=== PATIENT | female | born 1965 | race Caucasian/White ===

== ENCOUNTER 2020-01-02 17:41 | Emergency (ER) | payer OTHER, SELFPAY ==
[2020-01-02 17:43] VITALS: BP 149/95; PULSE 116; RESP 18; TEMP 36.9; O2SAT 97; BMI 18.5
--- NOTE | 2020-01-02 18:08 | US_ITS ---
STUDY: VENOUS DOPPLER ULTRASOUND - BILATERAL LOWER EXTREMITIES REASON FOR EXAM: Female, 54 years old. Bilateral SWELLING TECHNIQUE: Ultrasound evaluation of the deep vein system to include neville-scale imaging and compression was performed. Neville-scale imaging and Doppler sonographic evaluation, including duplex spectral analysis and qualitative color flow sonography, was performed. COMPARISON: None. FINDINGS: RIGHT LEG Common Femoral Vein: Normal compression, spontaneity and augmentation. Normal color Doppler. Common Femoral Vein/Greater Saphenous Junction: Normal compression. Femoral Proximal: Normal compression. Femoral Middle: Normal compression, spontaneity and augmentation. Normal color Doppler. Femoral Distal: Normal compression. Popliteal Vein: Normal compression, spontaneity and augmentation. Normal color Doppler. Posterior Tibial Vein: Normal compression. Peroneal Vein: Normal compression. LEFT LEG Common Femoral Vein: Normal compression, spontaneity and augmentation. Normal color Doppler. Common Femoral Vein/Greater Saphenous Junction: Normal compression. Femoral Proximal: Normal compression. Femoral Middle: Normal compression, spontaneity and augmentation. Normal color Doppler. Femoral Distal: Normal compression. Popliteal Vein: Normal compression, spontaneity and augmentation. Normal color Doppler. Posterior Tibial Vein: Normal compression. Peroneal Vein: Normal compression. US/Venous Duplex Imag/Anam Extrem IMPRESSION: No demonstrated deep vein thrombosis. Electronically Signed: Erica Turner MD at 19:29 EDT Tel , Service support ,
--- NOTE | 2020-01-02 19:36 | ED.VISSUMM ---
- ER Visit Summary Date of Service: 01/02/20 Chief Complaint: Possible DVT History of Present Illness: The patient is a 54 F who is here to check for DVT. She has lower extremity swelling for the past week and a history of DVTs. She is not on blood thinners. Denies any other associated symptoms. Physical Examination: Trace edema to lower extremities with calf tenderness. Otherwise unremarkable. Neurovascular intact. Test Results: Ultrasound negative bilaterally Emergency Department Course and Treatment: Patient has myalgias and mild edema. No history of heart failure, liver disease, kidney disease. No other associated symptoms, red flag features, or other emergency concerns today. She will follow-up as an outpatient. Treatment Plan: As above Disposition: Discharge Impression: Bilateral lower extremity pain This note was generated with [employer] dictation software. It may contain incorrect words, spelling, and punctuation that were not noted in review of the chart prior to signing ED Disposition - Plan for ED Patient: Referrals: Willi Sofia MD [Primary Care Provider] -
--- NOTE | 2020-01-02 19:37 | ED.DEP ---
ED Disposition - Plan for ED Patient: Instructions: ED Peripheral Edema, Bilateral Referrals: Willi Sofia MD [Primary Care Provider] -
[2020-01-02 19:44] VITALS: BP 120/94; PULSE 68; RESP 16; O2SAT 99
== END 2020-01-02 19:44 | disposition home or self-care (01) ==
LOC: ED 18:15
PROVIDERS: Emergency Provider Emergency Medicine; PCP Family Medicine
DX: M79.605 Pain in left leg (principal); M79.604 Pain in right leg; M79.10 Myalgia, unspecified site; R60.9 Edema, unspecified; Z86.718 Personal history of other venous thrombosis and embolism; Z72.0 Tobacco use
CPT/HCPCS: 93970; 99282

== ENCOUNTER → 2020-05-01 17:43 | Outpatient (CLI) | payer OTHER, SELFPAY | PROVIDERS: PCP Family Medicine; Referring Provider Nurse Practitioner Family; Visit Provider Nurse Practitioner Family | DX: Z20.828 Contact with and (suspected) exposure to other viral communicable diseases (principal); J32.9 Chronic sinusitis, unspecified; J40 Bronchitis, not specified as acute or chronic | CPT/HCPCS: 87635; G2023; U0003 ==

== ENCOUNTER 2020-06-26 07:34 | Emergency (ER) | payer OTHER, SELFPAY ==
[2020-06-26 07:34] VITALS: BP 119/70; PULSE 104; RESP 19; TEMP 36.4; O2SAT 99; BMI 18.1
--- NOTE | 2020-06-26 07:58 | EKG12_ITS ---
Test Reason : LOWER EXREMITY Blood Pressure : / mmHG Vent. Rate : 071 BPM Atrial Rate : 071 BPM P-R Int : 122 ms QRS Dur : 086 ms QT Int : 396 ms P-R-T Axes : 063 073 066 degrees QTc Int : 430 ms Normal sinus rhythm Normal ECG Confirmed by MILDRED DOWNING, EMIL ([id number]), business editor TOSHIA MENARD ([id number]) on 06/29/2020 1:10:47 PM Referred By: LEEANNE Confirmed By:EMIL LEVY MD
[2020-06-26 08:06] VITALS: RESP 16
[2020-06-26 08:07] VITALS: BP 109/80; BP 122/72; BP 126/82; PULSE 105; PULSE 66; PULSE 83
[2020-06-26] MEDS: Acetaminophen 500 MG Tablet 1000 MG PO (08:12)
--- NOTE | 2020-06-26 08:22 | RAD_ITS ---
STUDY: X-RAY - RIGHT FOOT CLINICAL: Female, 54 years old. SYNCOPE, TOP OF FOOT WAS SWOLLEN AND PAINFUL WHEN SHE WOKE TECHNIQUE: 3 view(s) of the foot. COMPARISON: None. FINDINGS: Normal talus, calcaneus, and tarsal bones. Normal visualized subtalar, talonavicular, calcaneocuboid, tarsal and tarsometatarsal articulations. Normal metatarsi. Normal metatarsophalangeal joint of the great toe. Normal tibial and fibular sesamoid bones. Normal interphalangeal joint of the great toe. Normal phalanges of the great toe. Normal second through fifth metatarsophalangeal joints. Normal interphalangeal joints and phalanges of the lesser toes. Dorsal soft tissue swelling. RAD/Foot min 3 Views IMPRESSION: Dorsal soft tissue swelling. Electronically Signed: Isidoro Romero, at 8:47 EDT , Service support ,
[2020-06-26 08:27] LABS: Absolute Lymphocyte Count 1.46 X10^3/uL (0.83-4.51); Absolute Neutrophil Count 11.2 X10^3/uL (2.0-7.7); Basophil# 0.04 X10^3/uL; Basophil% 0.3 % (0-1); Eosinophil# 0.07 X10^3/uL; Eosinophils% 0.5 % (0-5); Hematocrit 44.7 % (37-47); Hemoglobin 14.5 g/dL (12.0-15.0); Lymphocyte # 1.46 X10^3/ul (4.0); Lymphocyte % 10.9 % (19-41); Mean Corp Hgb Conc 32.4 g/dL (32-36); Mean Corpuscular Hgb 28.2 pg (27.0-32.0); Mean Corpuscular Volume 86.8 fL (81-99); Mean Platelet Vol. 10.4 fl (6.2-12.0); Monocyte# 0.65 X10^3/uL; Monocyte% 4.8 % (0-10); NRBC Flagged by Analyzer 0 % (0-5); Neutrophil # 11.16 X10^3/uL (2.7-7.7); Neutrophil % 83.1 % (47-70); Platelet Count 300 K/mm3 (150-450); RBC Distribution Width CV 14.7 % (11.6-14.6); RBC Distribution Width SD 46.8 fl (35.1-43.9); Red Blood Count 5.15 M/mm3 (4.2-5.4); White Blood Count 13.4 K/mm3 (4.4-11.0)
--- NOTE | 2020-06-26 08:40 | ED.VISSUMM ---
- ER Visit Summary Date of Service: 06/26/20 Chief Complaint: Syncope and right foot pain History of Present Illness: The patient is a [address] Ian Hall. She reports at 1:00 this morning she was awakened from sleep with cramping abdominal pain that was 8 out of 10 in severity. She reports she was nauseated and had a cold sweat. She went in the bathroom and had a small amount of diarrhea. She got up to wash her hands and felt very lightheaded. She could tell she was going to pass out. She was unable to sit down completely. States that she fell and injured her right foot. She denies any neck or back pain. She denies any chest pain, palpitations or shortness of breath that preceded this episode. Patient reports that she has right foot pain is 10 on 10 severity. Says sharp, aching pain is increased with walking and decreased with rest. She is not taken anything for pain. She denies any other injuries. She now reports that her abdominal pain is a crampy pain that is 2 out of 10 in severity. She has had multiple episodes of this in the past. Physical Examination: Vitals: Stable. Afebrile. Neck: No vertebral tenderness. Full ROM without difficulty. Cleared by NEXUS criteria. Back: No vertebral tenderness. General: A&O x 3. NAD. Cardiovascular exam: Regular rate and rhythm, no murmur, rub or gallop. Respiratory exam: Chest nontender. No crepitus. Clear to auscultation bilaterally. No wheezes or stridor. Abdominal exam: Soft, nontender, nondistended, normal bowel sounds. No pain in RUQ or LUQ specifically. No peritoneal signs. Extremity: Moderate tenderness palpation is diffuse over the dorsum of her foot. There is no point tenderness. There is no soft tissue swelling or contusion. She is a 2+ dorsalis pedis pulse. Test Results: EKG is sinus at 71 with no acute changes. Normal intervals. No evidence of hokum or Brugada syndrome. CBC shows a white count of 13.47 neutrophils 83 lymphocytes of 11. Chem-7 shows a chloride of 109 glucose 127. Troponin is negative. Right foot x-ray shows a nondisplaced fracture of the base of the third metatarsal. Emergency Department Course and Treatment: Patient refused an IV. She was given Tylenol p.o. and is resting more comfortably. Patient refused crutches stating that she has been at home. She was placed in a walking boot. Treatment Plan: Patient will be discharged with weightbearing as tolerated. She is given a prescription for [place]. Instructed to follow-up with Dr. Busby in 3 to 5 days for another exam. Return to the emergency department for any worsening symptoms. Disposition: To home in improved and stable condition. Impression: 1. Vasovagal syncope. 2. Proximal right third metatarsal fracture. This note was generated with [employer] dictation software. It may contain incorrect words, spelling, and punctuation that were not noted in review of the chart prior to signing ED Disposition - Plan for ED Patient: Instructions: ED FOOT FRACTURE, ED VAGAL SYNCOPE Prescriptions: Hydrocodone Bitart/Apap 5-325 [[place] 5MG-325MG] 1 tablet PO Q4H PRN PRN 2 Days #10 tablet PRN Reason: Pain Referrals: Willi Sofia MD [Primary Care Provider] - 3-5 Days if not improving Stefania Flower DPM [STAFF PHYSICIAN] - 3-5 Days
[2020-06-26 08:43] LABS: Anion Gap 3 (5-15); BUN 16 mg/dL (7-18); BUN/Creat Ratio 15.8 RATIO (10-20); Calcium,Total 9.2 mg/dL (8.5-10.1); Chloride 109 mmol/L (98-107); Creatinine, Serum 1.01 mg/dL (0.55-1.02); EST Glomerular Filtration Rate 61 mL/min (>60); Est Glom Filt Rate - Afr Amer 73 mL/min (>60); Estimated Creatinine Clearance 54.26 ml/min; Glucose 127 mg/dL (74-106); Sodium Level 138 mmol/L (136-145)
[2020-06-26 09:29] VITALS: BP 110/64; PULSE 75; RESP 16; O2SAT 100
--- NOTE | 2020-06-26 09:32 | ED.RN ---
REVIEWED D/C INSTRUCTIONS, FOLLOW UP CARE, PRESCRIPTION, AND S/S THAT WOULD WARRANT A RETURN TO THE ED WITH PT. PT VERBALIZED AN UNDERSTANDING AND DENIES FURTHER QUESTIONS FOR THIS RN. PT SKIN P/W/D, RESP EVEN AND UNLABORED, PT A&O X 3, NO DISTRESS NOTED. PT AMBULATED OUT OF ED, GAIT STEADY.
== END 2020-06-26 09:33 | disposition home or self-care (01) ==
LOC: ED 08:36
PROVIDERS: Emergency Provider Emergency Medicine; PCP Family Medicine
DX: R55 Syncope and collapse (principal); S92.331A Displaced fracture of third metatarsal bone, right foot, initial encounter for closed fracture; W18.30XA Fall on same level, unspecified, initial encounter; Y93.9 Activity, unspecified; Y92.002 Bathroom of unspecified non-institutional (private) residence as the place of occurrence of the external cause; Y99.9 Unspecified external cause status
CPT/HCPCS: 73630; 80048; 84484; 85025; 93005; 99285

== ENCOUNTER → 2020-06-29 13:08 | Outpatient (CLI) | payer OTHER, SELFPAY ==
[2020-06-26 07:34] VITALS: BMI 18.1
[2020-06-29 15:06] LABS: Vitamin D,25 Hydroxy 49.6 ng/mL
== END ==
PROVIDERS: PCP Family Medicine; Referring Provider Podiatrist; Visit Provider Podiatrist
DX: E55.9 Vitamin D deficiency, unspecified (principal)
CPT/HCPCS: 36415; 82306

== ENCOUNTER 2021-09-13 12:13 | Inpatient (IN) | payer OTHER, SELFPAY ==
[2021-09-13] VITALS (21 sets, daily range): BP systolic 100–147; BP diastolic 63–91; PULSE 58–77; RESP 12–18; TEMP 36.5–36.8; O2SAT 97–100; BMI 19.5
--- NOTE | 2021-09-13 12:20 | RAD_ITS ---
STUDY: X-RAY CHEST REASON FOR EXAM: Female, 56 years old. Chest pain TECHNIQUE: Single AP portable view of the chest. COMPARISON: None. FINDINGS: EKG electrodes are seen. There is hyperinflation of the lungs consistent with chronic obstructive lung disease (COPD). There is no demonstrated pleural abnormality. Normal size heart. Normal mediastinum and hong. Normal visualized pulmonary arteries. There is atherosclerotic calcification of the aortic arch with tortuosity. Normal visualized thoracic spine. Normal visualized ribs, clavicles, and shoulders. There is no demonstrated abnormality of the visualized soft tissue structures of the upper abdomen. RAD/Chest 1 View (Portable) IMPRESSION: Hyperinflation. The lungs are clear. Electronically Signed: Isidoro Romero MD at 13:11 EST , Service support ,
--- NOTE | 2021-09-13 12:20 | EKG12_ITS ---
Test Reason : CP Blood Pressure : / mmHG Vent. Rate : 065 BPM Atrial Rate : 065 BPM P-R Int : 130 ms QRS Dur : 086 ms QT Int : 400 ms P-R-T Axes : 078 077 083 degrees QTc Int : 416 ms AGE AND GENDER SPECIFIC ECG ANALYSIS Normal sinus rhythm ST elevation consider inferior injury or acute infarct ACUTE NC / STEMI Abnormal ECG Confirmed by NETO DOWNING, KB ([id number]), editor publications LADY BELTRE ([id number]) on 09/14/2021 7:53:19 AM Referred By: Lulú Estrada Confirmed By:KB DUQUE MD
--- NOTE | 2021-09-13 12:43 | CM.ED ---
SOCIAL WORK STEMI Alert Call to patient's son, Don [phone] per request of patient. Son called and updated on patient's status. Son reports will be en route to hospital. Sandy Spear MSW, SHIPPING LEAD
[2021-09-13] MEDS: TICAGRELOR 90 MG TABLET 180 MG PO (12:49)
[2021-09-13] MEDS: Heparin Injection (Vial) 5,000 UNIT/ML VIAL 3400 UNIT IV (12:49)
--- NOTE | 2021-09-13 12:50 | ED.VIS.CHEST ---
HPI History of Present Illness Chief Complaint: Chest Pain Informant: patient Onset/Context/Timing Onset: Yesterday Activity at onset: gradual Timing: Intermittent (Constant for the past 2 hours) Quality: Positive for Burning Location: Left Chest Worsened By: Nothing Relieved By: Nothing Associated Symptoms: Positive for Nausea; Negative for Vomiting, Diaphoresis, Dyspnea, Cough, Fever, Lightheadedness and Acid Reflux Narrative Narrative: Patient presents with chest pain that has been intermittent since yesterday but has been constant for the past 2 hours. Patient states it is over the left chest. Patient describes it as burning. Patient states that it currently is a 9 on a scale of 0-10. Patient states nothing makes it worse and nothing makes it better. Patient admits to some nausea but denies any vomiting. Patient denies any shortness of breath or diaphoresis. Patient does admit to a cough last week and recently tested positive for COVID-19 on 09/04/2021. CVD Risk Factors: Negative for Hypertension, Diabetes, Hypercholesterolemia, Family History 1' </=55 and Smoking PE Risk Factors: Positive for Recent Travel/Surgery and Prior DVT or PE; Negative for Recent Immobilization, Cancer and OCP + Smoking + >/=35 PFSH PFSH Medical History Hx of blood clots Allergy/AdvReac Type Severity Reaction Status Date / Time sulfamethoxazole Allergy Hives Verified 09/13/21 12:17 [From Bactrim] trimethoprim [From Bactrim] Allergy Hives Verified 09/13/21 12:17 Surgical History History of elbow surgery History of tubal ligation Social History Smoking Status: Current every day smoker tobacco type: cigarettes alcohol intake: never ROS ROS ED Constitutional Constitutional ED: Denies chills or fever(s) Eyes Eyes: Denies blurry vision or change in vision ENT ENT ED: Denies rhinorrhea or sore throat Cardiovascular Cardiovascular: Reports chest pain; Denies palpitations Respiratory/Chest Respiratory/Chest: Denies cough or dyspnea Gastrointestinal Gastrointestinal: Reports nausea; Denies abdominal pain or vomiting Genitourinary Genitourinary ED: Denies dysuria or hematuria Musculoskeletal Musculoskeletal: Denies back pain or neck pain Integumentary Denies abscess or rash Neurologic Neurologic: Denies headache(s) or weakness Allergic/Immunologic Allergic/Immunologic ED: Denies mouth swelling or urticaria EXAM Physical Exam Const Vital Signs: 09/13/21 12:14 09/13/21 12:41 09/13/21 12:47 Temperature 97.7 F L Temperature Source Oral Pulse Rate 75 Respiratory Rate 16 17 Respiratory Effort Respiratory Pattern Blood Pressure 114/81 H Blood Pressure Mean 92 Pulse Ox 99 100 Oxygen Delivery Method Room Air Nasal Cannula Oxygen Flow Rate (L/min) 2 09/13/21 12:50 09/13/21 12:55 Temperature Temperature Source Pulse Rate 72 Respiratory Rate 13 Respiratory Effort Normal Respiratory Pattern Normal Blood Pressure 137/81 H Blood Pressure Mean 99 Pulse Ox 100 Oxygen Delivery Method Nasal Cannula Oxygen Flow Rate (L/min) 100 Positive well nourished and well developed General Appearance ED: well developed HEENT normocephalic and atraumatic Eyes PERRL and EOMs intact bilaterally Neck supple and no JVD Chest Wall palpation of chest normal Resp normal respiratory effort and clear to auscultation bilaterally Effort and Inspection: Negative for respiratory distress Cardio regular rate, regular rhythm and no murmurs GI normal to inspection, nondistended, normoactive bowel sounds, soft to palpation, non-tender and non-distended Extremity normal to inspection General Extremety ED: Negative for edema or tenderness General Extremity: Negative for edema Neuro oriented x3, CN's II-XII intact bilaterally and no sensory deficits noted Sensorium / Orientation: awake and alert Motor Exam: strength 5/5 throughout Psych mental status grossly normal Heart Score History: Moderately Suspicious ECG: Significant ST-Depression Age: >45 - <65 years Risk Factors: No Risk Factors Troponin: >/=3 x Normal Limit Score: 6 MDM MDM MDM Narrative Medical decision making narrative: EKG was obtained. On my interpretation, shows a sinus rhythm with a rate of 65. There is ST elevation in leads II, III, and aVF. There are reciprocal changes in aVL, V1, and V2. STEMI alert was called. Patient was given a dose of Brilinta and a dose of IV heparin. Case was discussed with Dr. Estrada. He will be down to evaluate the patient. He will take the [facility] to the [facility]. Patient was advised of her findings. Case was discussed with the hospitalist. Patient will be admitted to the hospital after the [facility]. Patient understands and is agreeable with the plan. All questions were answered. Lab Data Attestation: I reviewed the patient's lab results. Labs: Laboratory Results - last 24 hr 09/13/21 09/13/21 12:32 12:32 WBC 8.7 RBC 5.39 Hgb 15.2 H Hct 44.8 MCV 83.1 MCH 28.2 MCHC 33.9 RDW Std Deviation 44.3 H RDW Coeff of Nicholas 14.6 Plt Count 353 MPV 10.4 Immature Gran % (Auto) 0.200 Neut % (Auto) 61.2 Lymph % (Auto) 31.8 [place] % (Auto) 5.3 Eos % (Auto) 1.0 Baso % (Auto) 0.5 Absolute Neuts (auto) 5.3 Absolute Lymphs (auto) 2.78 Nucleated RBC % 0 Sodium 138 Potassium 3.7 Chloride 104 Carbon Dioxide 26.0 Anion Gap 8 BUN 19 H Creatinine 1.08 H Estim Creat Clear Calc 52.06 Est GFR (MDRD) Af Amer 68 Est GFR (MDRD) Non-Af 56 L BUN/Creatinine Ratio 17.6 Glucose 124 H Calcium 9.4 Troponin I High Sens 350 H* Radiography Chest X-Ray - ED: 1 View, Read by ED Physician, Read by Radiologist and Normal Diagnostic Testing: Clinical Impression(s) from Imaging Studies Chest X-Ray 09/13/21 12:20 IMPRESSION: Hyperinflation. The lungs are clear. Electronically Signed: Isidoro Romero MD at 13:11 EST , Service support , EKG Initial EKG: Attestation: I personally reviewed and interpreted this EKG as follows: Interpretation: Sinus Rhythm and S-T Elevation (Leads II, III, and aVF) Treatment and Re-Evaluation Vital Sign Attestation:: Vital signs are reviewed prior to admission. They are stable. Critical Care Time Critical Care Time: Yes Critical care time (excluding procedures): 30-74 minutes (31), Including time spent:, Discussing w/Patient &/or Family/Photographic Technician, Discussing w/Consultants, Arranging Admission or Transfer and Performing Direct Patient Care at Bedside Discharge Plan Dx/Rx/DC Orders Clinical Impression: Acute ST elevation myocardial infarction (STEMI) Disposition Disposition: Acute Care Hospital [facility] Discharge Date/Time: 09/13/21 13:00
[2021-09-13 13:02] LABS: Absolute Lymphocyte Count 2.78 X10^3/uL (0.83-4.51); Absolute Neutrophil Count 5.3 X10^3/uL (2.0-7.7); Basophil# 0.04 X10^3/uL; Basophil% 0.5 % (0-1); Eosinophil# 0.09 X10^3/uL; Hematocrit 44.8 % (37-47); Hemoglobin 15.2 g/dL (12.0-15.0); Lymphocyte # 2.78 X10^3/ul (0.83-4.51); Lymphocyte % 31.8 % (19-41); Mean Corp Hgb Conc 33.9 g/dL (32-36); Mean Corpuscular Hgb 28.2 pg (27.0-32.0); Mean Corpuscular Volume 83.1 fL (81-99); Mean Platelet Vol. 10.4 fl (6.2-12.0); Monocyte# 0.46 X10^3/uL; Monocyte% 5.3 % (0-10); NRBC Flagged by Analyzer 0 % (0-5); Neutrophil # 5.34 X10^3/uL (2.7-7.7); Neutrophil % 61.2 % (47-70); Platelet Count 353 K/mm3 (150-450); RBC Distribution Width CV 14.6 % (11.6-14.6); RBC Distribution Width SD 44.3 fl (35.1-43.9); Red Blood Count 5.39 M/mm3 (4.2-5.4); White Blood Count 8.7 K/mm3 (4.4-11.0)
--- NOTE | 2021-09-13 13:05 | PCM.HP.STD ---
HPI - General General Date of Admission: 09/13/21 Date of Service: 09/13/21 Chief Complaint: Chest pain, burning sensation. HPI Narrative The patient is a 56 y/o F w/ PMHx: Hx VTE, recent + diagnosis COVID on 09/04/21 who presents to the [facility] ED on 09/13/21 with history of onset chest burning sensation starting day prior primarily over the left chest which had been intermittent initially however became more constant approximately 2 3 hours prior to ED presentation, rated severe, not it of 10 in severity with some associated nausea but no emesis and no marked dyspnea or diaphoresis associated. Patient started having Covid type symptoms on 09/02/2021 with primarily cough and significant frontal headache but denied any fevers, chills, myalgias, arthralgias, nausea, emesis, abdominal discomfort, diarrhea, alteration in sense of taste or smell and has been significantly improving. She was formally tested and was positive on 09/04/2021. Patient with recent prolonged travel of note. Patient of note was not vaccinated against COVID-19. Work-up in the ED included T 97.7, heart rate 75, BP 114/81, respiratory rate 16, 99% on room air, CBC with WBC 8.7, hemoglobin 15.2, platelet 353 without marked shift, BMP pending upon evaluation of patient request, troponin high-sensitivity initial pending upon evaluation request, chest x-ray no acute cardiopulmonary findings, EKG with sinus rhythm with concern for ST elevation in leads II, III and aVF with reciprocal changes in aVL, V1 and V2 with a STEMI alert called. Patient was administered Brilinta and heparin loading with case discussed with cardiology. Patient transitioned per cardiology discretion to the cardiac catheterization lab. [facility] Medical History Hx of blood clots Tobacco use Home Medications cholecalciferol (vitamin D3) [Vitamin D3] 100 mcg PO DAILY 09/13/21 [History Last Taken 09/12/21] Allergy/AdvReac Type Severity Reaction Status Date / Time sulfamethoxazole Allergy Hives Verified 09/13/21 12:17 [From Bactrim] trimethoprim [From Bactrim] Allergy Hives Verified 09/13/21 12:17 Family History no significant family his no significant family history (Denies any marked maternal or paternal family history including HD, DM, CA.) Surgical History History of elbow surgery History of tubal ligation Social History (Updated 09/13/21 @ 13:[address] Onelia Dee MD) household members: none Smoking Status: Current every day smoker tobacco type: cigarettes Smokeless tobacco user: other alcohol intake: never substance use type: does not use ROS ROS Narrative Admission Review of Systems: CONSTITUTIONAL: No weight loss, fever, chills, + weakness or fatigue. HEENT: + Headache. Eyes: No visual loss, blurred vision, double vision or yellow sclerae. Ears, Nose, Throat: No hearing loss, sneezing. SKIN: No rash or itching, lesions, wounds. CARDIOVASCULAR: + chest pain, chest pressure or chest discomfort, No palpitations, edema, orthopnea, syncopal events. RESPIRATORY: + Cough. No shortness of breath, marked sputum, wheezing, hemoptysis. GASTROINTESTINAL: No anorexia, nausea, vomiting, diarrhea, abdominal pain, melena, BRBPR. GENITOURINARY: No dysuria, frequency, urgency or retention. NEUROLOGICAL: + Headache, No dizziness, syncope, paralysis, ataxia, numbness or tingling in the extremities, focal weakness, change in bowel or bladder control, seizure. MUSCULOSKELETAL: No muscle, back pain, joint pain or stiffness. HEMATOLOGIC: No anemia, bleeding or bruising. LYMPHATICS: No enlarged nodes. No history of splenectomy. PSYCHIATRIC: No history of depression or anxiety. ENDOCRINOLOGIC: No reports of sweating, cold or heat intolerance. No polyuria or polydipsia. ALLERGIES: No history of asthma, hives, eczema or rhinitis. Vital Signs Vital Signs Vital Signs: 09/13/21 12:14 09/13/21 12:41 09/13/21 12:47 Temperature 97.7 F L Temperature Source Oral Pulse Rate 75 Respiratory Rate 16 17 Respiratory Effort Respiratory Pattern Blood Pressure 114/81 H Blood Pressure Mean 92 Pulse Ox 99 100 Oxygen Delivery Method Room Air Nasal Cannula Oxygen Flow Rate (L/min) 2 09/13/21 12:50 09/13/21 12:55 Temperature Temperature Source Pulse Rate 72 Respiratory Rate 13 Respiratory Effort Normal Respiratory Pattern Normal Blood Pressure 137/81 H Blood Pressure Mean 99 Pulse Ox 100 Oxygen Delivery Method Nasal Cannula Oxygen Flow Rate (L/min) 100 Weight Weight: 125 lb Body Mass Index (BMI) 19.5 Physical Exam Narrative Physical Examination: General: Awake, alert, oriented x3, laying in the cardiac catheterization bed, notes ongoing chest discomfort, fatigued appearing. Skin: Normal color, normal turgor, no icterus, no cyanosis. HEENT: AT/NC, EOMI, PERRLA, mildly dry MM, no carotid bruits or JVD noted. Lungs: Mild diminished, greater bases, appropriate effort, no rales, ronchi or wheezing. Heart: Regular rate and rhythm; no gallop, rub audible. Abdomen: Soft, NTTP, ND, mildly hyperactive BS, no HSM. Extremities: No cyanosis, clubbing, or edema. Neurological: Patient awake, alert, oriented as noted, cognitive function intact; pupils equally reactive to light and accommodation, cranial nerves II-XII grossly normal, moving all 4 extremities however limitations given planned cardiac catheterization, strength preserved however deferred aggressive testing given planned catheterization. Psychiatric: Affect appears uncomfortable, no acute evidence of depressive or anxiety feelings. Results Lab / Micro Data Result Diagrams: 09/13/21 12:32 09/13/21 12:32 Labs: Laboratory Results - last 24 hr 09/13/21 12:32: WBC 8.7, RBC 5.39, Hgb 15.2 H, Hct 44.8, MCV 83.1, MCH 28.2, MCHC 33.9, RDW Std Deviation 44.3 H, RDW Coeff of Nicholas 14.6, Plt Count 353, MPV 10.4, Immature Gran % (Auto) 0.200, Neut % (Auto) 61.2, Lymph % (Auto) 31.8, Bath % (Auto) 5.3, Eos % (Auto) 1.0, Baso % (Auto) 0.5, Absolute Neuts (auto) 5.3, Absolute Lymphs (auto) 2.78, Nucleated RBC % 0 Assessment & Plan Assessment/Plan (1) Acute ST elevation myocardial infarction (STEMI): QUALIFIERS: Involved coronary artery: unspecified coronary artery Qualified Code(s): I21.3 - ST elevation (STEMI) myocardial infarction of unspecified site (2) COVID-19: PLAN: The patient is a 56 y/o F w/ PMHx: Hx VTE, recent + diagnosis COVID on 09/04/21 who presents to the [facility] ED on 09/13/21 with history of onset chest burning sensation starting day prior primarily over the left chest which had been intermittent initially however became more constant approximately 2 3 hours prior to ED presentation, rated severe, not it of 10 in severity with some associated nausea but no emesis and no marked dyspnea or diaphoresis associated. #1. Chest Pain w/ Acute STEMI: ED EKG w/ concern for ST elevation in leads II, III and aVF with reciprocal changes in aVL, V1 and V2 with a STEMI alert called Trop elevated, 350. Patient transitioned to the cardiac catheterization lab from ED and will await discussion regarding intervention following procedure. Expect admission to the ICU, will maintain on a monitored bed, continue serial cardiac enzymes and EKGs, obtain magnesium level upon admission. Continue medical management w/ asa, brillinta, add high dose statin, defer BB/ACEI regimen to cardiology discretion. ASA, NG, morphine. #2. Acute Viral Syndrome, COVID-19: Currently, not hypoxic and symptoms improved, patient timeline appropriate for no precautions, PRN albuterol, HOB, IS parameters, patient as noted being evaluated for #1, if no obvious findings will need to evaluate for potentially VTE. Will obtain D-dimer (even if elevated given contrast with catheterization will need to be deferred and would obtain BL LE duplex), procalcitonin, CRP, CPK, Ferritin, LDH and BNP for baseline and continued to cycle cardiac enzymes given #1, continue supportive care. #3. History of remote VTE: Patient with history remotely, per discussion considered provoked, given recent prolonged travel potentially associated with current presentation. #4. Tobacco Abuse: Encouraged cessation, inpatient consultation per RT, NR if desired. #5. DVT prophylaxis: SCDs, recent heparin bolus, transition in a.m. if appropriate Lovenox. Charges/Coding Visit Charges Inpatient E&M: 47109 Init Hosp L3
--- NOTE | 2021-09-13 13:12 | EKG12_ITS ---
Test Reason : Blood Pressure : / mmHG Vent. Rate : 064 BPM Atrial Rate : 064 BPM P-R Int : 132 ms QRS Dur : 086 ms QT Int : 418 ms P-R-T Axes : 078 078 081 degrees QTc Int : 431 ms AGE AND GENDER SPECIFIC ECG ANALYSIS Normal sinus rhythm ST elevation consider inferior injury or acute infarct ACUTE ME / STEMI Abnormal ECG Confirmed by NETO DOWNING, BK ([id number]), web content editor LADY BELTRE ([id number]) on 09/16/2021 8:28:43 AM Referred By: Lulú Estrada Confirmed By:BK DUQUE MD
[2021-09-13 13:14] LABS: Anion Gap 8 (5-15); BUN 19 mg/dL (7-18); BUN/Creat Ratio 17.6 RATIO (10-20); Calcium,Total 9.4 mg/dL (8.5-10.1); Chloride 104 mmol/L (98-107); Creatinine, Serum 1.08 mg/dL (0.55-1.02); EST Glomerular Filtration Rate 56 mL/min (>60); Est Glom Filt Rate - Afr Amer 68 mL/min (>60); Estimated Creatinine Clearance 52.06 ml/min; Glucose 124 mg/dL (74-106); Potassium 3.7 mmol/L (3.5-5.1); Sodium Level 138 mmol/L (136-145); Troponin-I HS 350 pg/mL (3.0-54.0)
--- NOTE | 2021-09-13 14:01 | EKG12_ITS ---
Test Reason : AM EKG Blood Pressure : / mmHG Vent. Rate : 063 BPM Atrial Rate : 063 BPM P-R Int : 118 ms QRS Dur : 082 ms QT Int : 438 ms P-R-T Axes : 057 061 053 degrees QTc Int : 448 ms Normal sinus rhythm Normal ECG When compared with ECG of 13-SEP-2021 14:21, MANUAL COMPARISON REQUIRED, DATA IS UNCONFIRMED Confirmed by MILDRED DOWNING, EMIL ([id number]), electronic news gathering editor LADY BELTRE ([id number]) on 09/16/2021 8:30:30 AM Referred By: Lulú Estrada Confirmed By:EMIL LEVY MD
--- NOTE | 2021-09-13 14:19 | CON.PCM.CA_ITS ---
Assessment & Plan Assessment/Plan (1) Acute ST elevation myocardial infarction (STEMI): QUALIFIERS: Involved coronary artery: unspecified coronary artery Qualified Code(s): I21.3 - ST elevation (STEMI) myocardial infarction of unspecified site PLAN: Treated with drug-eluting stent to mid RCA. We will keep the patient on aspirin, Brilinta, statin, beta-jose g. She will be admitted to the ICU for further management of her STEMI. Smoking cessation was strongly emphasized. HPI Consult Data Date of Consult: 09/13/21 HPI Narrative HPI Narrative: EVELYN HARVEY, is a 56 F who presents with chest pain. Chest pain started yesterday and was on and off till this morning when it became constant. She came to the emergency room and was found to have ST elevation in the inferior leads on EKG. STEMI alert was called and patient was brought emergently to the Office Equipment [facility]ic. She was found to have 90% stenosis in the mid RCA that was treated with a drug eluting stent. Patient's chest pain improved significantly at the end of the procedure. She is being admitted to the ICU for further management of rest elevation MN. Patient was diagnosed with COVID-19 on 09/04/2021. Review of systems: All systems reviewed. All else is negative except that in the HPI PFSH Medical History Hx of blood clots Tobacco use Allergy/AdvReac Type Severity Reaction Status Date / Time sulfamethoxazole Allergy Hives Verified 09/13/21 12:17 [From Bactrim] trimethoprim [From Bactrim] Allergy Hives Verified 09/13/21 12:17 Family History no significant family his Surgical History History of elbow surgery History of tubal ligation Social History (Updated 09/13/21 @ 13:[address] Onelia Dee MD) household members: none Smoking Status: Current every day smoker tobacco type: cigarettes Smokeless tobacco user: other alcohol intake: never substance use type: does not use Physical Exam Const alert and oriented x3 Orientation / Consciousness: awake HEENT normocephalic Eyes no scleral icterus Neck supple Chest inspection of chest normal Resp normal respiratory effort Cardio regular rate Neuro oriented x3 Psych mental status grossly normal Risk Stratification Risk Stratification Applicable: No Charges/Coding Visit Charges Inpatient E&M: 35842 Init Hosp L3 Objective Data Vital Signs: Vital Signs Temp Pulse Resp BP Pulse Ox 97.7 F L 72 13 137/81 H 100 09/13/21 12:14 09/13/21 12:50 09/13/21 12:50 09/13/21 12:50 09/13/21 12:50 Oxygen Flow Rate (L/min) 100 Oxygen Delivery Method Nasal Cannula Weight: 125 lb Body Mass Index (BMI) 19.5 Lab / Micro Data Result Diagrams: 09/13/21 12:32 09/13/21 12:32 Labs: Laboratory Results - last 24 hr 09/13/21 12:32: WBC 8.7, RBC 5.39, Hgb 15.2 H, Hct 44.8, MCV 83.1, MCH 28.2, MCHC 33.9, RDW Std Deviation 44.3 H, RDW Coeff of Nicholas 14.6, Plt Count 353, MPV 10.4, Immature Gran % (Auto) 0.200, Neut % (Auto) 61.2, Lymph % (Auto) 31.8, Sawyer % (Auto) 5.3, Eos % (Auto) 1.0, Baso % (Auto) 0.5, Absolute Neuts (auto) 5.3, Absolute Lymphs (auto) 2.78, Nucleated RBC % 0 09/13/21 12:32: Sodium 138, Potassium 3.7, Chloride 104, Carbon Dioxide 26.0, Anion Gap 8, BUN 19 H, Creatinine 1.08 H, Estim Creat Clear Calc 52.06, Est GFR (MDRD) Af Amer 68, Est GFR (MDRD) Non-Af 56 L, BUN/Creatinine Ratio 17.6, Glucose 124 H, Calcium 9.4, Troponin I High Sens 350 H* Cardiology Labs/Tests 09/13/21 12:32: WBC 8.7, RBC 5.39, Hgb 15.2 H, Hct 44.8, MCV 83.1, MCH 28.2, MCHC 33.9, Plt Count 353, MPV 10.4, Immature Gran % (Auto) 0.200, Neut % (Auto) 61.2, Lymph % (Auto) 31.8, Sawyer % (Auto) 5.3, Eos % (Auto) 1.0, Baso % (Auto) 0.5, Absolute Neuts (auto) 5.3, Nucleated RBC % 0 09/13/21 12:32: Sodium 138, Potassium 3.7, Chloride 104, Carbon Dioxide 26.0, Anion Gap 8, BUN 19 H, Creatinine 1.08 H, Est GFR (MDRD) Af Amer 68, Est GFR (MDRD) Non-Af 56 L, BUN/Creatinine Ratio 17.6, Glucose 124 H, Calcium 9.4 Rhythm: EKG: ECHO: Stress Test: Cardiac Cath: PCI: CT Surgery: Holter monitor: EPS: PPM: CXR: Chest CT Scan: Radiography Diagnostic Testing: Radiology Impression Chest X-Ray 09/13/21 12:20 IMPRESSION: Hyperinflation. The lungs are clear. Electronically Signed: Isidoro Romero MD at 13:11 EST , Service support ,
[2021-09-13] MEDS: 0.9% Normal Saline 1,000 ML 60 ML IV (14:20)
[2021-09-13 14:22] LABS: D-Dimer Quantitative (DVT/PE) 2.47 FEU/ug/m (0.27-0.49)
[2021-09-13 14:30] LABS: AST(SGOT) 25 U/L (15-37); Alanine Aminotransfer ALT/SGPT 41 U/L (13-56); Albumin, Serum 3.9 g/dL (3.2-5.0); Alkaline Phosphatase 87 U/L (45-117); Bilirubin, Direct 0.11 mg/dL (0.00-0.30); CRP < 2.90 mg/L (0.0-3.0); Ferritin 77 ng/mL (8-252); Globulin 4.7 g/dL (2.2-4.2); LDH 250 U/L (84-246); Magnesium 2.3 mg/dL (1.6-2.6); Protein, Total 8.6 g/dL (6.4-8.2)
--- NOTE | 2021-09-13 14:55 | CL.I_ITS ---
Patient Name: EVELYN HARVEY Study Date: 09/13/2021 Performing: Paula Estrada MD Ht: 66.92 inches 170 cm : 1965 Wt: 125.66 lbs 57 kg Age: 56 Gender: female BSA: 1.66 PROCEDURE(S) PERFORMED [id number]/LV [id number], VASQUEZ AND/OR PTCA, ARTERY OR GRAFT, SINGLE VESSEL CLINICAL PROFILE AND CO-MORBIDITIES Indications: ACS <= 24 hrs Heart Failure: None Stress/Imaging Stress/Image Study Performed: No CAD Presentations: STEMI. Symptom onset Date/Time: 09/13/21 10:00:00 Time Estimated CONCLUSIONS Single vessel CAD as described. EF is 60% with inferoapical hypokinesis. No significant or MR. Suc cessful VASQUEZ to mRCA RECOMMENDATIONS DESCRIPTION OF PROCEDURE The patient arrived to the procedure lab. The risks and benefits of the procedure as well as a full d escription of our services here and lack of surgical backup were fully explained to the patient and/o r their significant other prior to the catheterization. The Timeout was completed, verifying the duane ect patient and procedure. The patient's procedural site was prepped and draped in the usual fashion. Local anesthetic was given subcutaneously to right groin region with Lidocaine 2%. Using a modified Seldinger technique, arterial access was obtained via the right radial artery, a 6Fr sheath was inser mynor.. Right Coronary Artery selective angiography was then performed in multiple views using a 6 Fr. JR 4 catheter. Left Coronary Artery selective angiography was performed in multiple views using a 5 Fr. JL3.5 catheter. Left Ventriculography was performed in TOLLIVER projection using a 5 Fr. jr4 catheter. LV to AO pullback pressures were then recordedThe images were reviewed and options discussed. A decision was then made to proceed with an Intervention, IVUS or other adjunct procedure. Angiogram performed pre balloon dilatation. cordis jr 4 Guide catheter was inserted and engaged i nto the RCA. bmw Guide wire was advanced to the RCA. emerge 3.00 x 12 Balloon catheter was advanced a cross lesion in the right coronary, mid. PTCA balloon inflated at 8 atms for 10 secs. osiro 4.0 x 18 Drug Eluting stent was advanced across the lesion in the right coronary, mid. Angiogram performed pos t stent deployment. The arterial sheath was pulled and a TR Band was applied for hemostasis CORONARY ANGIOGRAPHY DOMINANCE: Right Dominant LEFT HEART ASSESSMENT Left Ventricular Ejection Fraction: by LV Gram 60 % Inferior Apical Hypokinesis - Moderate LEFT MAIN: Mild luminal irregularities LEFT ANTERIOR DESCENDING ARTERY: Mild luminal irregularities CIRCUMFLEX ARTERY: Mild luminal irregularities RIGHT CORONARY ARTERY: MID RCA: 90 % Stenosis VALVE FINDINGS: No Aortic Valve Stenosis No Mitral Insufficency INTERVENTION INFORMATION LESION SITE: RCA (Mid) Lesion Complexity: High/C, chronic total occlusion: No, lesion at bifurcation: No, thrombus present: Yes, lesion length: 14 mm, culprit lesion: Yes, Previously treated lesion: No Pre Stenosis: 90 % Pre intervention GERARDO flow: 3 PROCEDURE: Drug Eluting Stent with pre dilatation. Post Stenosis: 0 % Post intervention GERARDO flow: 3 Lesion Devices: Cardinal 6 Fr JR4 100cm Guide Catheter Landon .014 [employer] [place] Straight 190cm Biotronik Orsiro MR VASQUEZ 4.0x18 [employer] EMERGE MR 3.00x12 BALLOON COMPLICATIONS No Complications PROCEDURE MEDICATIONS Versed .5 mg IV Oxygen: 2 L/min via nasal cannula Aspirin (325mg) 1 Tabs PO @ 09/13/2021 13:42:23 Heparin given IA 09/13/2021 13:16:50 Verapamil 2.5mg, Ntg 100mcgs, 3000 units of Heparin given IA 09/13/2021 13:16:50 SUMMARY OF HEMODYNAMIC DATA Time AIR REST ECG 13:09:14 AO 123/84 (103) SA 13:17:32 LV 125/0, 20 13:34:25 LV 129/-2, 20 13:34:32 LV 131/1, 27 13:35:11 LV 111/5, 9 13:35:18 LVp 123/63, 70 13:35:37 AOp 116/56 (82) 13:35:42 14:51:08 Signed By Paula Estrada MD On 09/13/2021 14:54:43 Paula Estrada MD
--- NOTE | 2021-09-13 15:25 | PCS.PANDOC ---
PANDEMIC DOCUMENTATION INITIATED: Date: 05/31/2021 Time: 190
--- NOTE | 2021-09-13 15:31 | CRPHASE1_ITS ---
Patient Communication PHII Cardiac Rehab Discussed with Patient:: Yes Guide to Cardiac Rehab Given to Patient:: Yes Cardiac Rehab Facility Choice List Given to Patient:: Yes Choice Program [facility] CR PHII:: Communication Given to CR, Refer to [facility] Cutter Helper:: Lulú Estrada Phase II Cardiac Rehab:: Yes Sessions:: 36 sessions - 3 days/wk, 12 weeks Cardiac Rehabilitation Info Cardiac Rehabilitation Program Information: Cardiac Rehabilitation is important for patients like you who are recovering from a heart problem. Cardiac rehabilitation programs are recognized as integral to the continued care of the patient with coronary heart disease. The cardiac rehabilitation program is designed to optimize a patient's physical, psychological, and social functioning. Health adult care manager work in cardiac rehabilitation programs and assist you with getting the treatments you need to get stronger and healthier - like exercise, healthy eating habits, and medications. Cardiac rehabilitation has been show to help people with heart problems live longer and have better life enjoyment than people who do not go to cardiac rehabilitation. Please contact the Cardiac Rehabilitation Program at [facility] at in two weeks if you have not heard from them.
--- NOTE | 2021-09-13 15:32 | CRPH1.INST_ITS ---
General Education CAD and cardiac anatomy and function:: Patient communicates acknowledgment Explanation of diagnoses and procedures:: Patient communicates acknowledgment Sign/Symptoms of DC:: Patient communicates acknowledgment Antiplatelet therapy: Patient communicates acknowledgment Proper use of NTG-SL: Patient communicates acknowledgment Emergency procedures and activation of EMS: Patient communicates acknowledgment Compliance of all prescribed medications: Patient communicates acknowledgment Smoking Patient Nicotine/Smoking Risk Factors Are:: Cigarettes Recommendations Include:: Smoking cessation strategies/Smoking packet, Second- hand smoke recommendation, Participation in a smoking cessation program Nicotine/Smoking Response Code:: Patient communicates acknowledgment Dyslipidemia Patient Dyslipidemia Risk Factors Are:: Total Cholesterol, Triglycerides, HDL, LDL Recommendations Include:: Lipid profile not available Dyslipidemia Response Code:: Patient communicates acknowledgment Hypertension Recommendations Include:: Maintain BP <130/85, DASH dietary guidelines, Decrease/maintain normal body weight, Moderation of ETOH Hypertension:: Patient communicates acknowledgment Heart Disease Recommendations Include:: Educated family members of their risk Heart Disease Response Code:: Patient communicates acknowledgment
[2021-09-13 15:36] LABS: Troponin-I HS 1523 pg/mL (3.0-54.0)
[2021-09-13 15:46] LABS: Procalcitonin < 0.04 ng/mL (0.00-0.09)
[2021-09-13 15:58] LABS: BNP,B-Type NATRIURETIC PEPTIDE 19.5 pg/mL (0-100)
[2021-09-13 18:01] LABS: Troponin-I HS 4026 pg/mL (3.0-54.0)
[2021-09-13 20:44] LABS: Hematocrit 39.6 % (37-47); Hemoglobin 12.8 g/dL (12.0-15.0); Mean Corp Hgb Conc 32.3 g/dL (32-36); Mean Corpuscular Hgb 26.8 pg (27.0-32.0); Mean Corpuscular Volume 82.8 fL (81-99); Platelet Count 334 K/mm3 (150-450); RBC Distribution Width CV 14.5 % (11.6-14.6); RBC Distribution Width SD 43.8 fl (35.1-43.9); Red Blood Count 4.78 M/mm3 (4.2-5.4); White Blood Count 9.4 K/mm3 (4.4-11.0)
[2021-09-13 21:08] LABS: Troponin-I HS 10078 pg/mL (3.0-54.0)
[2021-09-13] MEDS: Atorvastatin Calcium 80 MG Tablet PO (21:38)
[2021-09-13] MEDS: 0.9% Saline Lock 10 ML Syringe IV (21:38)
[2021-09-13] MEDS: Enoxaparin 30 MG/0.3 ML Syringe SC (21:38)
[2021-09-13] MEDS: TICAGRELOR 90 MG TABLET PO (21:39)
[2021-09-14] VITALS (16 sets, daily range): BP systolic 96–113; BP diastolic 49–80; PULSE 54–104; RESP 12–19; TEMP 36.7; O2SAT 98–100
[2021-09-14 04:00] LABS: Absolute Lymphocyte Count 2.21 X10^3/uL (0.83-4.51); Basophil# 0.05 X10^3/uL; Basophil% 0.6 % (0-1); Eosinophil# 0.17 X10^3/uL; Eosinophils% 2.1 % (0-5); Hematocrit 39.3 % (37-47); Hemoglobin 12.9 g/dL (12.0-15.0); Lymphocyte # 2.21 X10^3/ul (0.83-4.51); Lymphocyte % 27.5 % (19-41); Mean Corp Hgb Conc 32.8 g/dL (32-36); Mean Corpuscular Hgb 27.4 pg (27.0-32.0); Mean Corpuscular Volume 83.6 fL (81-99); Mean Platelet Vol. 10.2 fl (6.2-12.0); Monocyte# 0.63 X10^3/uL; Monocyte% 7.8 % (0-10); NRBC Flagged by Analyzer 0 % (0-5); Neutrophil # 4.96 X10^3/uL (2.7-7.7); Neutrophil % 61.9 % (47-70); Platelet Count 301 K/mm3 (150-450); RBC Distribution Width CV 14.7 % (11.6-14.6); RBC Distribution Width SD 44.9 fl (35.1-43.9)
--- NOTE | 2021-09-14 06:29 | PCM.PN.HOSP ---
Objective Data Objective Data Vital Signs: Vital Signs Temp Pulse Resp BP Pulse Ox 98.1 F 85 14 113/57 L 98 09/14/21 04:00 09/14/21 04:00 09/14/21 04:00 09/14/21 04:00 09/14/21 04:00 Oxygen Flow Rate (L/min) 100 Oxygen Delivery Method Room Air Weight: 125 lb Body Mass Index (BMI) 19.5 Intake & Output: Intake and Output for Last 24 Hours 09/12/21 09/13/21 09/14/21 23:59 23:59 23:59 Intake Total 649.27 / 649.27 Output Total 600 / 600 Balance 49.27 / 49.27 Lab / Micro Data Result Diagrams: 09/14/21 03:30 09/13/21 12:32 Labs: Laboratory Results - last 24 hr 09/13/21 12:32: WBC 8.7, RBC 5.39, Hgb 15.2 H, Hct 44.8, MCV 83.1, MCH 28.2, MCHC 33.9, RDW Std Deviation 44.3 H, RDW Coeff of Nicholas 14.6, Plt Count 353, MPV 10.4, Immature Gran % (Auto) 0.200, Neut % (Auto) 61.2, Lymph % (Auto) 31.8, [place] % (Auto) 5.3, Eos % (Auto) 1.0, Baso % (Auto) 0.5, Absolute Neuts (auto) 5.3, Absolute Lymphs (auto) 2.78, Nucleated RBC % 0 09/13/21 12:32: Sodium 138, Potassium 3.7, Chloride 104, Carbon Dioxide 26.0, Anion Gap 8, BUN 19 H, Creatinine 1.08 H, Estim Creat Clear Calc 52.06, Est GFR (MDRD) Af Amer 68, Est GFR (MDRD) Non-Af 56 L, BUN/Creatinine Ratio 17.6, Glucose 124 H, Calcium 9.4, Troponin I High Sens 350 H* 09/13/21 12:32: D-Dimer Quant (PE/DVT) 2.47 H* 09/13/21 12:32: Magnesium 2.3, Ferritin 77, Total Bilirubin 0.40, Direct Bilirubin 0.11, AST 25, ALT 41, Alkaline Phosphatase 87, Lactate Dehydrogenase 250 H, C-React Prot Ext Range < 2.90, Total Protein 8.6 H, Albumin 3.9, Globulin 4.7 H 09/13/21 12:32: B-Natriuretic Peptide 19.5 09/13/21 12:32: Procalcitonin < 0.04 09/13/21 15:00: Troponin I High Sens 1523 H* 09/13/21 17:00: Troponin I High Sens 4026 H* 09/13/21 20:30: WBC 9.4, RBC 4.78, Hgb 12.8, Hct 39.6, MCV 82.8, MCH 26.8 L, MCHC 32.3, RDW Std Deviation 43.8, RDW Coeff of Nicholas 14.5, Plt Count 334, MPV 10.0 09/13/21 20:30: Troponin I High Sens 30882 H* 09/14/21 03:30: WBC 8.0, RBC 4.70, Hgb 12.9, Hct 39.3, MCV 83.6, MCH 27.4, MCHC 32.8, RDW Std Deviation 44.9 H, RDW Coeff of Nicholas 14.7 H, Plt Count 301, MPV 10.2, Immature Gran % (Auto) 0.100, Neut % (Auto) 61.9, Lymph % (Auto) 27.5, [place] % (Auto) 7.8, Eos % (Auto) 2.1, Baso % (Auto) 0.6, Absolute Neuts (auto) 5.0, Absolute Lymphs (auto) 2.21, Nucleated RBC % 0 Radiography Diagnostic Testing: Radiology Impression Chest X-Ray 09/13/21 12:20 IMPRESSION: Hyperinflation. The lungs are clear. Electronically Signed: Isidoro Romero MD at 13:11 EST , Service support , Physical Exam Narrative Physical Examination: General: Awake, alert, oriented x3, laying in the cardiac catheterization bed, notes ongoing chest discomfort, fatigued appearing. Skin: Normal color, normal turgor, no icterus, no cyanosis. HEENT: AT/NC, EOMI, PERRLA, mildly dry MM, no carotid bruits or JVD noted. Lungs: Mild diminished, greater bases, appropriate effort, no rales, ronchi or wheezing. Heart: Regular rate and rhythm; no gallop, rub audible. Abdomen: Soft, NTTP, ND, mildly hyperactive BS, no HSM. Extremities: No cyanosis, clubbing, or edema. Neurological: Patient awake, alert, oriented as noted, cognitive function intact; pupils equally reactive to light and accommodation, cranial nerves II-XII grossly normal, moving all 4 extremities however limitations given planned cardiac catheterization, strength preserved however deferred aggressive testing given planned catheterization. Psychiatric: Affect appears uncomfortable, no acute evidence of depressive or anxiety feelings. Assessment & Plan Assessment/Plan (1) Acute ST elevation myocardial infarction (STEMI): QUALIFIERS: Involved coronary artery: unspecified coronary artery Qualified Code(s): I21.3 - ST elevation (STEMI) myocardial infarction of unspecified site (2) COVID-19: PLAN: The patient is a 56 y/o F w/ PMHx: Hx VTE, recent + diagnosis COVID on 09/04/21 who presents to the [facility] ED on 09/13/21 with history of onset chest burning sensation starting day prior primarily over the left chest which had been intermittent initially however became more constant approximately 2 3 hours prior to ED presentation, rated severe, not it of 10 in severity with some associated nausea but no emesis and no marked dyspnea or diaphoresis associated. #1. Chest Pain w/ Acute STEMI: ED EKG w/ concern for ST elevation in leads II, III and aVF with reciprocal changes in aVL, V1 and V2 with a STEMI alert called Trop elevated, 350. Patient transitioned to the cardiac catheterization lab from ED and will await discussion regarding intervention following procedure. Expect admission to the ICU, will maintain on a monitored bed, continue serial cardiac enzymes and EKGs, obtain magnesium level upon admission. Continue medical management w/ asa, brillinta, add high dose statin, defer BB/ACEI regimen to cardiology discretion. ASA, NG, morphine. #2. Acute Viral Syndrome, COVID-19: Currently, not hypoxic and symptoms improved, patient timeline appropriate for no precautions, PRN albuterol, HOB, IS parameters, patient as noted being evaluated for #1, if no obvious findings will need to evaluate for potentially VTE. Will obtain D-dimer (even if elevated given contrast with catheterization will need to be deferred and would obtain BL LE duplex), procalcitonin, CRP, CPK, Ferritin, LDH and BNP for baseline and continued to cycle cardiac enzymes given #1, continue supportive care. #3. History of remote VTE: Patient with history remotely, per discussion considered provoked, given recent prolonged travel potentially associated with current presentation. #4. Tobacco Abuse: Encouraged cessation, inpatient consultation per RT, NR if desired. #5. DVT prophylaxis: SCDs, recent heparin bolus, transition in a.m. if appropriate Lovenox.
[2021-09-14 07:16] LABS: Anion Gap 8 (5-15); BUN 16 mg/dL (7-18); BUN/Creat Ratio 18.4 RATIO (10-20); Calcium,Total 8.6 mg/dL (8.5-10.1); Chloride 110 mmol/L (98-107); Creatinine, Serum 0.87 mg/dL (0.55-1.02); EST Glomerular Filtration Rate 72 mL/min (>60); Est Glom Filt Rate - Afr Amer 87 mL/min (>60); Estimated Creatinine Clearance 64.73 ml/min; Glucose 112 mg/dL (74-106); Potassium 3.8 mmol/L (3.5-5.1); Sodium Level 140 mmol/L (136-145)
[2021-09-14 08:22] LABS: ALB/GLOB Ratio 0.9 RATIO (0.9-2.4); AST(SGOT) 65 U/L (15-37); Alanine Aminotransfer ALT/SGPT 36 U/L (13-56); Albumin, Serum 3.1 g/dL (3.2-5.0); Alkaline Phosphatase 69 U/L (45-117); Cholesterol 182 mg/dL (200); Globulin 3.6 g/dL (2.2-4.2); High Density Lipoprotein 35 mg/dL; Protein, Total 6.7 g/dL (6.4-8.2); Triglycerides 101 mg/dL; Very Low Density Lipoprotein 20 mg/dL (5-40)
[2021-09-14] MEDS: TICAGRELOR 90 MG TABLET PO (09:00)
[2021-09-14] MEDS: Enoxaparin 30 MG/0.3 ML Syringe SC (09:00)
[2021-09-14] MEDS: Aspirin E.C. 81 MG Tablet PO (09:00)
--- NOTE | 2021-09-14 09:00 | NURSING ---
DR PEARSON PRESENT AT BEDSIDE. UPDATED ON PT'S CONCERN ABOUT TAKING METOPROLOL D/T HR IN 60'S AND SBP IN LOWER 100'S. PT EDUCATED BY NURSING STAFF ON IMPORTANCE OF METOPROLOL. DR PEARSON REITERATED IMPORTANCE OF TAKING MEDS PRESCRIBED. PT VOICES UNDERSTANDING AND WILLING TO TAKE A DOSE OF METOPROLOL NOW. WILL WAIT A COUPLE OF HOURS BEFORE D/CING HOME TO SEE HOW PT TOLERATES MED. PT AGREEABLE.
--- NOTE | 2021-09-14 10:00 | EKG12_ITS ---
Test Reason : STEMI Blood Pressure : / mmHG Vent. Rate : 067 BPM Atrial Rate : 067 BPM P-R Int : 124 ms QRS Dur : 090 ms QT Int : 406 ms P-R-T Axes : 079 076 084 degrees QTc Int : 429 ms AGE AND GENDER SPECIFIC ECG ANALYSIS Normal sinus rhythm ST elevation consider inferolateral injury or acute infarct ACUTE OK / STEMI Confirmed by MILDRED DOWNING, EMIL ([id number]), communications editor LADY BELTRE ([id number]) on 09/16/2021 8:32:00 AM Referred By: Lulú Estrada Confirmed By:EMIL LEVY MD
--- NOTE | 2021-09-14 10:10 | CASEMGMT ---
RN LINSEY Face to Face with patient for initial transition planning/care coordination assessment. RN CM introduced self and role at [facility]. Patient sitting in chair, alert and oriented. Patient willing to participate in assessment and is able to answer all questions appropriately. Care providers, pharmacy, and demographics verified. Patient wishes to discharge home, denies need for home health at this time. Patient states she has no further needs or concerns at this time. CM to follow for discharge planning needs that may arise. PCP: Kimberlyn Specialists: none Preferred Pharmacy: [facility] Insurance: MMO Prescription Benefit: yes, Brilinta savings card provided to patient. Living Will/HPOA: none LNOK: son Living Arrangements: Patient lives alone in a 2 story condo. Patient is independent and able to ambulate stairs at home. Transportation: self/son DME/HHC: Patient states she has grab bar at home. Denied previous HHC or SNF. Disposition Plan: Patient to discharge home with family support and follow-up plans in place. Caridad SOMMER, RN, CM
--- NOTE | 2021-09-14 10:12 | PCM.DC ---
Discharge Instructions Diet Discharge Diet: Low fat / Low cholesterol Activity Discharge Activity: - (Post-cardiac catheterization parameters with mild activity only until Cardiology follow-up and clearance for increase. Please follow-up with cardiac rehabilitation who will contact you to arrange. ) May resume sexual activity in: - (No sexual intercourse until evaluation and clearance by cardiology.) Weight Bearing Status: Weight bearing as tolerated Dressing / Incision Call your doctor if your incision/area has: Continuous Slow Oozing, Sudden Increased Bleeding, Increased Pain/ Swelling, Increased Redness, Foul Smelling Discharge and Swelling at the incision site Call your doctor if you observe: Fever of 101 or Higher, Shortness of breath, Dizziness, Chest pain, Prolonged hiccupping, Increased palpitations (irregular heartbeat) and Uncontrolled pain Follow Up Care Test Results: Test results from this visit will be discussed in further detail at your follow-up appointment, if applicable. Discharge Plan Admission Admit Date/Time: 09/13/21 13:27 Primary Reason for Your Visit: Acute Heart Attack (STEMI) s/p drug eluting stent to the mid RCA Attending Provider: Onelia Dee Primary Care Provider: Willi Sofia Consulting Providers: Lulú Estrada Instructions Patient Instructions: Coronary Angioplasty Stenting Dc, Heart Attack Meds, Heart Attack Questions Additional Instructions / Restrictions: DURING THE ADMISSION YOU HAD: #1. Chest Pain w/ Acute STEMI (heart attack that requires immediate cardiac catheterization to restore perfusion) with stent placed in the mid RCA vessel. You have been started on aspirin, brillinta, metoprolol and statin therapy. It is important that you continue these medications to assure no recurrent blockage in the heart or the new stent. If you have any concerns please do not hesitate to call Cardiology earlier than your follow-up. It is also vital that you stop smoking as this contributes to cardiac health as well. #2. Acute Viral Syndrome, COVID-19: You have completed your quarantine timeline, please contact your physician if you have any recurrent symptoms. Discharge Orders/Prescriptions Prescriptions: New atorvastatin 80 mg Tablet 80 mg PO QHS 30 Days Qty: 30 RF: 1 aspirin 81 mg Tablet,Delayed Release (Dr/Ec) 81 mg PO BREAKFAST 30 Days Qty: 30 RF: 1 metoprolol tartrate 25 mg Tablet 12.5 mg PO BID 30 Days Qty: 60 RF: 1 Brilinta 90 mg Tablet 90 mg PO BID 30 Days Qty: 60 RF: 1 Continued cholecalciferol (vitamin D3) [Vitamin D3] 50 mcg (2,000 unit) Capsule 100 mcg PO DAILY RF: 0 Referrals / Follow Up: Willi Sofia MD [Primary Care Provider] - (Follow-up within 3-5 days of discharge to review admission.) James Smith DIAL EQUIPMENT ENGINEER, DIAL EQUIPMENT ENGINEER-C [Nurse Practitioner] - (Follow-up in 1 week s/p recent STEMI and stent placement.) Disposition Disposition (needs filled in before D/C Order can be placed): Home, Self Care
--- NOTE | 2021-09-14 10:15 | PCM.DC.SUM ---
Providers Date of Admission: 09/13/21 Primary Care Physician: Dr. Willi Sofia MD Consultations 09/13/21 14:01 Consult: Cardiology Routine Consulting Provider: Lulú Estrada Reason for Consult: STEMI EMERGENT Consult: Yes MD Notified: Yes Date Notified: 09/13/21 Time Notified: 13:28 Method of Notification: STEMI call Reason For Visit: STEMI / CHEST PAIN Diagnosis Discharge Diagnosis (1) Acute ST elevation myocardial infarction (STEMI): Status: Acute Code(s): I21.3 - ST elevation (STEMI) myocardial infarction of unspecified site Qualifiers: Involved coronary artery: unspecified coronary artery Qualified Code(s): I21.3 - ST elevation (STEMI) myocardial infarction of unspecified site (2) COVID-19: Status: Acute Code(s): U07.1 - COVID-19 Medications at Discharge Home Medications cholecalciferol (vitamin D3) [Vitamin D3] 100 mcg PO DAILY 09/13/21 aspirin 81 mg PO BREAKFAST 30 Days #30 tab 09/14/21 atorvastatin 80 mg PO QHS 30 Days #30 tab 09/14/21 metoprolol tartrate 12.5 mg PO BID 30 Days #60 tab 09/14/21 ticagrelor [Brilinta] 90 mg PO BID 30 Days #60 tab 09/14/21 Hospital Course Operations None Procedures Cardiac catheterization and EKG Summary of Care Provided Minutes Spent on Discharge: 35 Hospital Course: DISCHARGE NOTE: Discharge Diagnoses: #1. Chest Pain w/ Acute STEMI s/p drug-eluting stent to mid RCA #2. Acute Viral Syndrome, COVID-19 in non-vaccinated status (completed quarantine) #3. History of remote VTE #4. Tobacco Abuse: Discharge Summary: The patient is a 56 y/o F w/ PMHx: Hx VTE, recent + diagnosis COVID on 09/04/[address] [facility] ED on 09/13/21 with history of onset chest burning sensation starting day prior primarily over the left chest which had been intermittent initially however became more constant approximately 2 3 hours prior to ED presentation, rated severe, not it of 10 in severity with some associated nausea but no emesis and no marked dyspnea or diaphoresis associated. ED EKG w/ concern for ST elevation in leads II, III and aVF with reciprocal changes in aVL, V1 and V2 with a STEMI alert called Trop elevated, 350. Patient transitioned to the cardiac catheterization lab from ED with eventual drug-eluting stent placement to the mid RCA region with appropriate cardiac function noted otherwise per discussion with cardiology. Patient transition to the ICU following, maintain on judicious hydration given recent contrast usage, maintain on aspirin, Brilinta, statin as well as low-dose beta-wendy therapy with SOHAN inhibitor deferred given appropriate EF. Echo not obtained per discretion of cardiology as they noted no concerning acute findings during cardiac catheterization. Patient of note recently diagnosed with COVID-19 pneumonia with mild symptoms, not hypoxic upon presentation and completed her timeline. Discussed her current status and new healthcare concerns and recommended strongly that she consider vaccination. 09/14/2021 patient with no further chest discomfort, no significant cardiac telemetry concerns, tolerating medications, cleared per cardiology for discharge with follow-up in 1 week as well as recommend follow-up with her primary care physician. Patient upon discharge to home was also given prescription for nicotine replacement with nicotine replacement transition plan. Discharge Time: > 35 Minutes DAY OF DISCHARGE PROGRESS NOTE: Subjective: Patient without acute event overnight per self and nursing report. Patient denies any further chest discomfort. Patient denies fever, chills, nausea, emesis, abdominal pain or dyspnea. Patient was eventually concerned about beta-wendy therapy as she is commonly heart rate in the 60s and low normal blood pressures however we did trial this medication and she successfully tolerated this. Did discuss potential need for hold if she had any certain symptoms and told her to call cardiology earlier if she had any concerns or new symptoms. Patient discharged home with medication regimen as noted with follow-up with both PCP and cardiology recommended. Objective: T 98.1, heart 64, BP 108/67, respiratory rate 14, 99% on room air Physical Examination: General: awake, alert, oriented x 3 and cooperative, seated upright in the ICU bedside chair, no acute distress, denies any recurrent chest discomfort. Skin: normal color, turgor, no icterus, cyanosis, right wrist with no evidence of bleeding status post catheterization. HEENT: AT/NC, EOMI, PERRLA, MMM. Lungs: CTA bilaterally, moderate effort, mild decrease BL bases, no rales, ronchi or wheezing; Heart: Regular rate and rhythm; no gallop, rub audible. Abdomen: soft, NTTP, ND, normal BS. Extremities: no cyanosis, clubbing, or edema. Neurological: patient awake, alert, oriented x 3; cognitive function appears intact upon questioning,; pupils equally reactive to light and accomodation; cranial nerves II-XII grossly normal, moving all 4 extremities, strength appropriate. Psychiatric: affect appears normal, no acute evidence of depressive or anxiety feelings. Assessment and Plan: Please see hospital summary above. Weight / BMI Weight Weight: 125 lb 3.2 oz Body Mass Index (BMI) 19.5 ABG / Lab / Microbiology Data Result Diagrams: 09/14/21 03:30 09/14/21 03:20 Laboratory: Laboratory Results - last 24 hr 09/13/21 12:32: WBC 8.7, RBC 5.39, Hgb 15.2 H, Hct 44.8, MCV 83.1, MCH 28.2, MCHC 33.9, RDW Std Deviation 44.3 H, RDW Coeff of Nicholas 14.6, Plt Count 353, MPV 10.4, Immature Gran % (Auto) 0.200, Neut % (Auto) 61.2, Lymph % (Auto) 31.8, [place] % (Auto) 5.3, Eos % (Auto) 1.0, Baso % (Auto) 0.5, Absolute Neuts (auto) 5.3, Absolute Lymphs (auto) 2.78, Nucleated RBC % 0 09/13/21 12:32: Sodium 138, Potassium 3.7, Chloride 104, Carbon Dioxide 26.0, Anion Gap 8, BUN 19 H, Creatinine 1.08 H, Estim Creat Clear Calc 52.06, Est GFR (MDRD) Af Amer 68, Est GFR (MDRD) Non-Af 56 L, BUN/Creatinine Ratio 17.6, Glucose 124 H, Calcium 9.4, Troponin I High Sens 350 H* 09/13/21 12:32: D-Dimer Quant (PE/DVT) 2.47 H* 09/13/21 12:32: Magnesium 2.3, Ferritin 77, Total Bilirubin 0.40, Direct Bilirubin 0.11, AST 25, ALT 41, Alkaline Phosphatase 87, Lactate Dehydrogenase 250 H, C-React Prot Ext Range < 2.90, Total Protein 8.6 H, Albumin 3.9, Globulin 4.7 H 09/13/21 12:32: B-Natriuretic Peptide 19.5 09/13/21 12:32: Procalcitonin < 0.04 09/13/21 15:00: Troponin I High Sens 1523 H* 09/13/21 17:00: Troponin I High Sens 4026 H* 09/13/21 20:30: WBC 9.4, RBC 4.78, Hgb 12.8, Hct 39.6, MCV 82.8, MCH 26.8 L, MCHC 32.3, RDW Std Deviation 43.8, RDW Coeff of Nicholas 14.5, Plt Count 334, MPV 10.0 09/13/21 20:30: Troponin I High Sens 18584 H* 09/14/21 03:20: Sodium 140, Potassium 3.8, Chloride 110 H, Carbon Dioxide 22.0, Anion Gap 8, BUN 16, Creatinine 0.87, Estim Creat Clear Calc 64.73, Est GFR (MDRD) Af Amer 87, Est GFR (MDRD) Non-Af 72, BUN/Creatinine Ratio 18.4, Glucose 112 H, Calcium 8.6, Total Bilirubin 0.50, AST 65 H, ALT 36, Alkaline Phosphatase 69, Total Protein 6.7, Albumin 3.1 L, Globulin 3.6, Albumin/Globulin Ratio 0.9, Triglycerides 101, Cholesterol 182, LDL Cholesterol 127, VLDL Cholesterol 20, HDL Cholesterol 35 L 09/14/21 03:30: WBC 8.0, RBC 4.70, Hgb 12.9, Hct 39.3, MCV 83.6, MCH 27.4, MCHC 32.8, RDW Std Deviation 44.9 H, RDW Coeff of Nicholas 14.7 H, Plt Count 301, MPV 10.2, Immature Gran % (Auto) 0.100, Neut % (Auto) 61.9, Lymph % (Auto) 27.5, [place] % (Auto) 7.8, Eos % (Auto) 2.1, Baso % (Auto) 0.6, Absolute Neuts (auto) 5.0, Absolute Lymphs (auto) 2.21, Nucleated RBC % 0 Radiography Diagnostic Testing: Radiology Impression Chest X-Ray 09/13/21 12:20 IMPRESSION: Hyperinflation. The lungs are clear. Electronically Signed: Isidoro Romero MD at 13:11 EST , Service support , D/C Instructions Discharge Diet: Low fat / Low cholesterol May resume sexual activity in: - (No sexual intercourse until evaluation and clearance by cardiology.) Weight Bearing Status: Weight bearing as tolerated Call your doctor if your incision/area has: Continuous Slow Oozing, Sudden Increased Bleeding, Increased Pain/ Swelling, Increased Redness, Foul Smelling Discharge and Swelling at the incision site Call your doctor if you observe: Fever of 101 or Higher, Shortness of breath, Dizziness, Chest pain, Prolonged hiccupping, Increased palpitations (irregular heartbeat) and Uncontrolled pain Meaningful Use Info Meaningful Use Diagnoses (Choose all that apply): AMI AMI/Post PCI/Angioplasty Aspirin given w/in 24hrs of arrival?: Yes ASA at discharge?: Yes Antiplatelet Therapy at Discharge:: Yes Statins at discharge?: Yes Sohan/ARB at discharge?: No Reason Sohan/ARB not ordered:: Not indicated Beta Wendy at discharge?: Yes Done w/ Acute AR measure.: Yes Documented LVEF (%): 65 Discharge Plan Admission Admit Date/Time: 09/13/21 13:27 Primary Reason for Your Visit: Acute Heart Attack (STEMI) s/p drug eluting stent to the mid RCA Attending Provider: Onelia Dee Primary Care Provider: Willi Sofia Consulting Providers: Lulú Estrada Instructions Patient Instructions: Coronary Angioplasty Stenting Dc, Heart Attack Meds, Heart Attack Questions Additional Instructions / Restrictions: DURING THE ADMISSION YOU HAD: #1. Chest Pain w/ Acute STEMI (heart attack that requires immediate cardiac catheterization to restore perfusion) with stent placed in the mid RCA vessel. You have been started on aspirin, brillinta, metoprolol and statin therapy. It is important that you continue these medications to assure no recurrent blockage in the heart or the new stent. If you have any concerns please do not hesitate to call Cardiology earlier than your follow-up. It is also vital that you stop smoking as this contributes to cardiac health as well. #2. Acute Viral Syndrome, COVID-19: You have completed your quarantine timeline, please contact your physician if you have any recurrent symptoms. Discharge Orders/Prescriptions Prescriptions: New atorvastatin 80 mg Tablet 80 mg PO QHS 30 Days Qty: 30 RF: 1 aspirin 81 mg Tablet,Delayed Release (Dr/Ec) 81 mg PO BREAKFAST 30 Days Qty: 30 RF: 1 metoprolol tartrate 25 mg Tablet 12.5 mg PO BID 30 Days Qty: 60 RF: 1 Brilinta 90 mg Tablet 90 mg PO BID 30 Days Qty: 60 RF: 1 Continued cholecalciferol (vitamin D3) [Vitamin D3] 50 mcg (2,000 unit) Capsule 100 mcg PO DAILY RF: 0 Referrals / Follow Up: Willi Sofia MD [Primary Care Provider] - (Follow-up within 3-5 days of discharge to review admission.) James Smith NP, TONGUE AND GROOVE MACHINE OPERATOR-C [Nurse Practitioner] - 09/21/21 11:00 am (Follow-up in 1 week s/p recent STEMI and stent placement.) Disposition Disposition (needs filled in before D/C Order can be placed): Home, Self Care Charges/Coding Visit Charges Inpatient E&M: 78368 Disch Hosp
[2021-09-14] MEDS: Metoprolol Tartrate 25 MG Tablet 12.5 MG PO (10:39)
== END 2021-09-14 12:20 | disposition home or self-care (01) | DRG 247 ==
LOC: ED 13:02 → ICU 14:09
PROVIDERS: Admitting Provider Family Medicine; Emergency Provider Emergency Medicine; PCP Family Medicine; Referring Provider Specialist; Visit Provider Family Medicine
DX: I21.3 ST elevation (STEMI) myocardial infarction of unspecified site (principal); B34.9 Viral infection, unspecified; F17.210 Nicotine dependence, cigarettes, uncomplicated; I25.10 Atherosclerotic heart disease of native coronary artery without angina pectoris; Z28.3 Underimmunization status; Z86.718 Personal history of other venous thrombosis and embolism; Z87.01 Personal history of pneumonia (recurrent); Z88.1 Allergy status to other antibiotic agents; Z88.2 Allergy status to sulfonamides; Z98.51 Tubal ligation status
CPT/HCPCS: 71045; 80048; 80053; 80061; 80076; 82728; 83615; 83735; 83880; 84145; 84484; 85025; 85027; 85379; 86140; 92941; 93005; 93458; 99152; 99153; 99251; 99283; C1874; J7030; J7040; Q9967; A4216; C1725; C1769; C1887; C1894; C9606; G0463; J1327

== ENCOUNTER 2021-11-02 23:00 | Emergency (ER) | payer OTHER, SELFPAY ==
[2021-11-02 23:00] VITALS: BP 134/111; PULSE 95; RESP 16; TEMP 36.3; O2SAT 100; BMI 19.4
--- NOTE | 2021-11-02 23:20 | EKG12_ITS ---
Test Reason : REPEAT CP Blood Pressure : / mmHG Vent. Rate : 062 BPM Atrial Rate : 062 BPM P-R Int : 130 ms QRS Dur : 086 ms QT Int : 424 ms P-R-T Axes : 082 078 052 degrees QTc Int : 430 ms Normal sinus rhythm Normal ECG Confirmed by MILDRED DOWNING, EMIL ([id number]), greeting card editor LADY BELTRE ([id number]) on 11/03/2021 10:09:35 AM Referred By: PL Confirmed By:EMIL LEVY MD
--- NOTE | 2021-11-02 23:20 | RAD_ITS ---
HISTORY: chest pain EXAMINATION/TECHNIQUE: XR Chest 1 View: Portable upright AP chest x-ray COMPARISON: 09/13/21 FINDINGS: LINES/DEVICES: None. LUNGS: No consolidation, edema or effusion. No pneumothorax. MEDIASTINUM AND CARDIOVASCULAR STRUCTURES: Cardiac silhouette not enlarged. Central airways and mediastinal contour are unremarkable. BONES AND SOFT TISSUES: No acute bony abnormalities. RAD/Chest 1 View (Portable) IMPRESSION: No radiographic evidence of acute cardiopulmonary disease. at [id number] Reported and signed by: Jason Roberto MD Electronically Signed: Jason Roberto MD at 23:57 EST Tel , Service support ,
[2021-11-02 23:28] LABS: Absolute Lymphocyte Count 3.46 X10^3/uL (0.83-4.51); Basophil# 0.06 X10^3/uL; Basophil% 0.6 % (0-1); Eosinophil# 0.71 X10^3/uL; Eosinophils% 7.2 % (0-5); Hematocrit 42.4 % (37-47); Hemoglobin 13.7 g/dL (12.0-15.0); Lymphocyte # 3.46 X10^3/ul (0.83-4.51); Lymphocyte % 35.2 % (19-41); Mean Corp Hgb Conc 32.3 g/dL (32-36); Mean Corpuscular Hgb 27.7 pg (27.0-32.0); Mean Corpuscular Volume 85.7 fL (81-99); Mean Platelet Vol. 10.6 fl (6.2-12.0); Monocyte# 0.58 X10^3/uL; Monocyte% 5.9 % (0-10); NRBC Flagged by Analyzer 0 % (0-5); Neutrophil # 4.99 X10^3/uL (2.7-7.7); Neutrophil % 50.9 % (47-70); Platelet Count 302 K/mm3 (150-450); RBC Distribution Width CV 15.5 % (11.6-14.6); RBC Distribution Width SD 48.3 fl (35.1-43.9); Red Blood Count 4.95 M/mm3 (4.2-5.4); White Blood Count 9.8 K/mm3 (4.4-11.0)
--- NOTE | 2021-11-02 23:33 | EDS_ITS ---
HPI History of Present Illness Chief Complaint: Chest Pain Informant: patient Narrative Narrative: Patient presents with several days of intermittent chest pain. She states it is a dull feeling in the mid upper chest. It is not associated with nausea, vomiting, diaphoresis shortness of breath. It does not radiate or migrate anywhere. It generally lasts for about 5 minutes. However, today it lasted for about 3 hours. It is currently not present. She also notes that the last couple nights she just has not slept well but she had no symptoms at all those 2 nights. She did wake up and was somewhat sweaty but she had no other symptoms with those sweats. She was not having any of the dyspnea chest pain nausea vomiting lightheadedness or any symptoms at all with that. She is currently asymptomatic This patient had an ST elevation MT back in August and had a drug-eluting stent to the RCA. She is on and is taking her Brilinta. She is also on aspirin and meds for high cholesterol. She has continued smoking and was counseled on the importance of quitting. She is not on beta-jose g as she has significant side effects. She states when she had her MT she felt much sicker had a lot more symptoms had radiation to her arm and this feels different. She does not feel ill or in any way bad when she has the discomfort she just notices the discomfort as an isolated finding. She states that the symptoms tend to come around when she lays down. They are nonexertional. PFSH PFSH Medical History Acute bronchitis Acute ST elevation myocardial infarction (STEMI) Atherosclerotic heart disease of [place] coronary artery without angina pectoris COVID-19 (09/04/21) Hx of blood clots Tobacco use Home Medications aspirin 81 mg tablet,delayed release 81 mg PO BREAKFAST 90 Days #90 tab 09/21/21 [Rx Last Taken Unknown] cholecalciferol (vitamin D3) 50 mcg (2,000 unit) capsule 2,000 unit PO DAILY cap 09/21/21 [History Last Taken Unknown] nicotine 21mg/24hr-14mg/24hr-7mg/24hr daily transderm patches,sequentl See Rx Instructions TRANSDERMAL .COMPLEX #56 patch 09/21/21 [Rx Last Taken Unknown] ticagrelor 90 mg tablet 90 mg PO BID 90 Days #180 tab 09/21/21 [Rx Last Taken Unknown] ezetimibe 10 mg tablet 10 mg PO DAILY #30 tab 10/18/21 [Rx Last Taken Unknown] Allergy/AdvReac Type Severity Reaction Status Date / Time sulfamethoxazole Allergy Hives Verified 11/02/21 23:03 [From Bactrim] trimethoprim [From Bactrim] Allergy Hives Verified 11/02/21 23:03 atorvastatin AdvReac Severe Several Verified 11/02/21 23:03 UTI's, diarrhea, poor appetite metoprolol AdvReac Severe Severe Verified 11/02/21 23:03 diarrhea and fatigue Family History Grandmother Cancer Ovarian Grandfather Cancer Lung Heart disease Mother Thyroid disorder Sister Thyroid disorder Sister Thyroid disorder Sister Thyroid disorder Sister Thyroid disorder Colon cancer Surgical History History of coronary artery stent placement (09/13/21) History of elbow surgery History of tubal ligation Social History household members: none Smoking Status: Current every day smoker tobacco type: cigarettes Smokeless tobacco user: other alcohol intake: never substance use type: does not use caffeine: Yes Type: coffee Number of servings: 1 ROS ROS ED Constitutional Constitutional ED: Reports sweats; Denies chills or fever(s) Eyes Eyes: Denies blurry vision or change in vision ENT ENT ED: Denies rhinorrhea or sore throat Cardiovascular Cardiovascular: Reports chest pain; Denies palpitations or racing heartbeat Respiratory/Chest Respiratory/Chest: Denies cough, dyspnea, dyspnea on exertion or sputum Gastrointestinal Gastrointestinal: Denies abdominal pain or nausea Genitourinary Genitourinary ED: Denies dysuria Musculoskeletal Musculoskeletal: Denies arthralgias or myalgias Integumentary Denies rash Neurologic Neurologic: Denies headache(s), paresthesias or weakness Psychiatric Psychiatric: Denies anxiety or depression Endocrine Endocrinology: Denies polydipsia or polyuria Hematologic/Lymphatic Hematologic/Lymphatic: Denies easy bleeding or easy bruising Allergic/Immunologic Allergic/Immunologic ED: Denies mouth swelling or urticaria EXAM Physical Exam Const Vital Signs: 11/02/21 23:00 11/02/21 23:07 11/02/21 23:23 Temperature 97.4 F L Temperature Source Temporal Pulse Rate 95 Respiratory Rate 16 Respiratory Effort Normal Non-Labored Blood Pressure 134/111 H Blood Pressure Mean 118 Pulse Ox 100 Oxygen Delivery Method Room Air Room Air Positive well nourished and well developed General Appearance ED: well developed and NAD HEENT Reports moist mucous membranes normocephalic and atraumatic Eyes General Eye ED: Negative for pale conjunctiva or scleral icterus Neck no JVD Chest Wall inspection of chest normal and palpation of chest normal Resp normal respiratory effort and No clear to auscultation bilaterally Effort and Inspection: Negative for respiratory distress or pain with movement Auscultation: Negative for rales, rhonchi or wheezes Cardio regular rate, regular rhythm and no murmurs GI normal to inspection, nondistended, normoactive bowel sounds, soft to palpation and non-tender Back/Spine no CVA tenderness Extremity normal to inspection General Extremety ED: Negative for edema, pulses abnormal or tenderness General Extremity: Negative for edema or pulses abnormal Neuro Sensorium / Orientation: awake and alert Psych mental status grossly normal Skin no rashes or lesions noted Heart Score History: Slightly/Non-Suspicious ECG: Normal Age: >45 - <65 years Risk Factors: >/= 3 Risk Factors or History of CAD Troponin: </= Normal Limit Score: 3 MDM MDM MDM Narrative Medical decision making narrative: Patient's chest x-ray showed no acute process. Blood work including CBC is normal. Electrolytes show minimal elevation in creatinine at 1.04 but she has had it at that level before. Glucose was 129. Troponin was normal at 10. Patient has not been having symptoms here. I talked to the patient about options. She has a heart score of 3 (0,0,1,2,0. Although she has chest pain, she this is nonexertional does not radiate and is not associated with any other issues. Her EKG shows no acute changes. Her age gets her one-point. Her only risk factor is smoking but since she has had heart disease she gets a score of 2. Her troponin so far is negative giving her a score of 0.) Patient would like to follow-up with her applied computer science professor. We did talk about repeating the troponin to make sure were not seeing a rise here. We are pending that repeat. Repeat EKG shows no interval change. Repeat troponin is also unchanged. Patient is asymptomatic. She will follow-up with her applied computer science professor. We recommend she may want to try some Prilosec to see if this makes any difference for her. Although she is not having the symptoms at this time. We discussed reasons to return that would include the pain with any associated symptoms such as nausea vomiting diaphoresis weakness lightheadedness or radiation. Lab Data Attestation: I reviewed the patient's lab results. Labs: Laboratory Results - last 24 hr 11/02/21 11/02/21 11/03/21 23:10 23:10 01:15 WBC 9.8 RBC 4.95 Hgb 13.7 Hct 42.4 MCV 85.7 MCH 27.7 MCHC 32.3 RDW Std Deviation 48.3 H RDW Coeff of Nicholas 15.5 H Plt Count 302 MPV 10.6 Immature Gran % (Auto) 0.200 Neut % (Auto) 50.9 Lymph % (Auto) 35.2 [place] % (Auto) 5.9 Eos % (Auto) 7.2 H Baso % (Auto) 0.6 Absolute Neuts (auto) 5.0 Absolute Lymphs (auto) 3.46 Nucleated RBC % 0 Sodium 140 Potassium 3.5 Chloride 107 Carbon Dioxide 26.0 Anion Gap 7 BUN 18 Creatinine 1.04 H Estim Creat Clear Calc 53.63 Est GFR (MDRD) Af Amer 70 Est GFR (MDRD) Non-Af 58 L BUN/Creatinine Ratio 17.3 Glucose 129 H Calcium 9.3 Troponin I High Sens 10 10 Radiography Diagnostic Testing: Clinical Impression(s) from Imaging Studies Chest X-Ray 11/02/21 23:20 IMPRESSION: No radiographic evidence of acute cardiopulmonary disease. at 2358 Reported and signed by: Jason Roberto MD Electronically Signed: Jason Roberto MD at 23:57 EST Tel , Service support , EKG Initial EKG: Comments: EKG done for chest pain read by me shows a normal sinus rhythm with overall rate of 70. No ectopy. No acute ST elevation or depression. Ther e is slight irregularity of the baseline. NM interval, QRS duration and QTc are normal. This is similar to prior of 21 September 2021. Discharge Plan Triage Chief Complaint: Chest Pain ED Provider: David Huerta Dx/Rx/DC Orders Clinical Impression: Chest pain, Tobacco use Instructions: ED Chest Pain, Uncertain Cause Prescriptions: No Action nicotine 21-14-7 mg/24 hr patch, TD daily, sequential See Rx Instructions transdermal .COMPLEX Qty: 56 RF: 1 Brilinta 90 mg tablet 90 mg PO BID 90 Days Qty: 180 RF: 3 aspirin 81 mg tablet,delayed release (DR/EC) 81 mg PO BREAKFAST 90 Days Qty: 90 RF: 3 cholecalciferol (vitamin D3) [Vitamin D3] 50 mcg (2,000 unit) capsule 2,000 unit PO DAILY RF: 0 ezetimibe [Zetia] 10 mg tablet 10 mg PO DAILY Qty: 30 RF: 11 Primary Care Provider: Willi Sofia Referrals: Germán Barrientos MD [STAFF PHYSICIAN] - As soon as possible Willi Sofia MD [Primary Care Provider] - Disposition Disposition: Home, Self Care
[2021-11-02 23:44] LABS: Anion Gap 7 (5-15); BUN 18 mg/dL (7-18); BUN/Creat Ratio 17.3 RATIO (10-20); Calcium,Total 9.3 mg/dL (8.5-10.1); Chloride 107 mmol/L (98-107); Creatinine, Serum 1.04 mg/dL (0.55-1.02); EST Glomerular Filtration Rate 58 mL/min (>60); Est Glom Filt Rate - Afr Amer 70 mL/min (>60); Estimated Creatinine Clearance 53.63 ml/min; Glucose 129 mg/dL (74-106); Potassium 3.5 mmol/L (3.5-5.1); Sodium Level 140 mmol/L (136-145); Troponin-I HS 10 pg/mL (3.0-54.0)
--- NOTE | 2021-11-03 01:29 | EKG12_ITS ---
Test Reason : CP Blood Pressure : / mmHG Vent. Rate : 070 BPM Atrial Rate : 070 BPM P-R Int : 120 ms QRS Dur : 092 ms QT Int : 392 ms P-R-T Axes : 079 082 069 degrees QTc Int : 423 ms Normal sinus rhythm Normal ECG Confirmed by MILDRED DOWNING, EMIL ([id number]), editor in chief LADY BELTRE ([id number]) on 11/03/2021 9:59:15 AM Referred By: PL Confirmed By:EMIL LEVY MD
[2021-11-03 01:40] LABS: Troponin-I HS 10 pg/mL (3.0-54.0)
[2021-11-03 02:08] VITALS: BP 126/77; PULSE 68; RESP 16; O2SAT 98
== END 2021-11-03 02:22 | disposition home or self-care (01) ==
PROVIDERS: Emergency Provider Emergency Medicine; PCP Family Medicine; Visit Provider Emergency Medicine
DX: R07.9 Chest pain, unspecified (principal); E78.00 Pure hypercholesterolemia, unspecified; I25.10 Atherosclerotic heart disease of native coronary artery without angina pectoris; I25.2 Old myocardial infarction; F17.210 Nicotine dependence, cigarettes, uncomplicated; Z79.82 Long term (current) use of aspirin; Z79.899 Other long term (current) drug therapy; Z86.16 Personal history of COVID-19
CPT/HCPCS: 71045; 80048; 84484; 85025; 93005; 99283; A4216

== ENCOUNTER 2021-11-16 07:17 | Outpatient (CLI) | payer OTHER, SELFPAY ==
[2021-11-16 08:06] LABS: AST(SGOT) 22 U/L (15-37); Alanine Aminotransfer ALT/SGPT 41 U/L (13-56); Albumin, Serum 3.7 g/dL (3.2-5.0); Alkaline Phosphatase 91 U/L (45-117); Bilirubin, Direct 0.16 mg/dL (0.00-0.30); Cholesterol 164 mg/dL (200); Globulin 3.9 g/dL (2.2-4.2); High Density Lipoprotein 42 mg/dL; Protein, Total 7.6 g/dL (6.4-8.2); Triglycerides 122 mg/dL; Very Low Density Lipoprotein 24 mg/dL (5-40)
== END 2021-11-16 23:59 | disposition short-term general hospital (02) ==
PROVIDERS: PCP Family Medicine; Referring Provider Nurse Practitioner Family; Visit Provider Nurse Practitioner Family
DX: I25.10 Atherosclerotic heart disease of native coronary artery without angina pectoris (principal); Z95.5 Presence of coronary angioplasty implant and graft
CPT/HCPCS: 36415; 80061; 80076

== ENCOUNTER 2021-12-22 15:43 | Outpatient (CLI) | payer OTHER, SELFPAY ==
--- NOTE | 2021-12-22 15:45 | CT_ITS ---
EXAM: CT ANGIOGRAPHY CHEST WITHOUT AND WITH INTRAVENOUS CONTRAST : 1965 CLINICAL INDICATION: SOB, chest pain constant, hx blood clots -- R/O PE TECHNIQUE: Helically acquired angiography images were obtained of the chest without and with intravenous contrast. This CT exam was performed using one or more of the following dose reduction techniques: automated exposure control, adjustment of the mA and/or kV according to patient size, and/or use of iterative reconstruction technique. This report was created using [employer] report generation technology. MIP reconstructed images were created and reviewed. CONTRAST: IV 100mL Isovue-370 COMPARISON: Chest radiograph November 02, 2021 FINDINGS: PULMONARY ARTERIES: Unremarkable. Normal in caliber. No evidence of pulmonary embolism. AORTA: Unremarkable. Normal in caliber. No evidence of dissection. GREAT VESSELS OF AORTIC ARCH: Unremarkable. Normal in caliber. No evidence of dissection. LUNGS AND PLEURAL SPACES: Paraseptal emphysematous changes of both lungs noted. No mass. No pleural effusion or thickening. No pneumothorax. HEART: Unremarkable. Heart size is normal. No pericardial effusion. No signs of right heart strain, ratio of right ventricle to left ventricle measures less than 1. MEDIASTINUM: Unremarkable. No mediastinal or hilar adenopathy. Esophagus is unremarkable. No hiatal hernia. THYROID: Unremarkable. No thyroid lesions. BONES/JOINTS: Unremarkable. No suspicious lytic or blastic abnormality. CT/CTA Chest W/WO Contrast IMPRESSION: 1. No evidence of acute pulmonary embolism. 2. Pulmonary emphysema. Individualized dose optimization techniques were used for this CT. at 1623 Reported and signed by: Dani Cárdenas MD Electronically Signed: Dani Cárdenas MD at 16:22 EST ,
== END 2021-12-22 23:59 | disposition home or self-care (01) ==
PROVIDERS: PCP Family Medicine; Referring Provider Internal Medicine Cardiovascular Disease; Visit Provider Internal Medicine Cardiovascular Disease
DX: R06.02 Shortness of breath (principal); R06.01 Orthopnea; R07.1 Chest pain on breathing; Z86.718 Personal history of other venous thrombosis and embolism
CPT/HCPCS: 71275; Q9967

== ENCOUNTER → 2022-04-11 | Outpatient (CLI) | payer OTHER, SELFPAY ==
[2022-04-11 17:29] LABS: Absolute Lymphocyte Count 2.46 X10^3/uL (0.83-4.51); Absolute Neutrophil Count 4.8 X10^3/uL (2.0-7.7); Basophil# 0.05 X10^3/uL; Basophil% 0.6 % (0-1); Eosinophil# 0.85 X10^3/uL; Eosinophils% 9.7 % (0-5); Hematocrit 41.2 % (37-47); Hemoglobin 13.2 g/dL (12.0-15.0); Lymphocyte # 2.46 X10^3/ul (0.83-4.51); Lymphocyte % 28.1 % (19-41); Mean Corpuscular Hgb 27.8 pg (27.0-32.0); Mean Corpuscular Volume 86.9 fL (81-99); Mean Platelet Vol. 10.5 fl (6.2-12.0); Monocyte% 6.8 % (0-10); NRBC Flagged by Analyzer 0 % (0-5); Neutrophil # 4.78 X10^3/uL (2.7-7.7); Neutrophil % 54.5 % (47-70); Platelet Count 315 K/mm3 (150-450); RBC Distribution Width CV 14.9 % (11.6-14.6); RBC Distribution Width SD 47.8 fl (35.1-43.9); Red Blood Count 4.74 M/mm3 (4.2-5.4); White Blood Count 8.8 K/mm3 (4.4-11.0)
[2022-04-11 18:29] LABS: ALB/GLOB Ratio 0.9 RATIO (0.9-2.4); AST(SGOT) 24 U/L (15-37); Alanine Aminotransfer ALT/SGPT 38 U/L (13-56); Albumin, Serum 3.6 g/dL (3.2-5.0); Alkaline Phosphatase 74 U/L (45-117); Amylase 59 U/L (25-115); Anion Gap 8 (5-15); BUN 16 mg/dL (7-18); BUN/Creat Ratio 18.2 RATIO (10-20); Chloride 106 mmol/L (98-107); Creatinine, Serum 0.88 mg/dL (0.55-1.02); EST Glomerular Filtration Rate 71 mL/min (>60); Est Glom Filt Rate - Afr Amer 86 mL/min (>60); Globulin 3.8 g/dL (2.2-4.2); Glucose 113 mg/dL (74-106); Lipase 131 U/L (73-393); Magnesium 2.2 mg/dL (1.6-2.6); Potassium 3.7 mmol/L (3.5-5.1); Protein, Total 7.4 g/dL (6.4-8.2); Sodium Level 140 mmol/L (136-145)
== END | disposition home or self-care (01) ==
LOC: LAB 16:29
PROVIDERS: PCP Family Medicine; Referring Provider Nurse Practitioner Family; Visit Provider Nurse Practitioner Family
DX: R11.0 Nausea (principal); I25.10 Atherosclerotic heart disease of native coronary artery without angina pectoris; Z95.5 Presence of coronary angioplasty implant and graft
CPT/HCPCS: 36415; 80053; 82150; 83690; 83735; 85025

== ENCOUNTER 2022-06-13 17:53 | Emergency (ER) | payer OTHER, SELFPAY ==
[2022-06-13 17:53] VITALS: BP 160/89; PULSE 118; RESP 14; TEMP 36.6; O2SAT 98; BMI 19.5
[2022-06-13] MEDS: 0.9% Normal Saline 1,000 ML 1000 ML IV (19:01)
[2022-06-13 19:11] LABS: Absolute Lymphocyte Count 1.87 X10^3/uL (0.83-4.51); Absolute Neutrophil Count 4.4 X10^3/uL (2.0-7.7); Basophil# 0.05 X10^3/uL; Basophil% 0.7 % (0-1); Eosinophil# 0.27 X10^3/uL; Eosinophils% 3.8 % (0-5); Lymphocyte # 1.87 X10^3/ul (0.83-4.51); Lymphocyte % 26.2 % (19-41); Mean Corp Hgb Conc 33.3 g/dL (32-36); Mean Corpuscular Hgb 27.7 pg (27.0-32.0); Mean Platelet Vol. 10.1 fl (6.2-12.0); Monocyte# 0.55 X10^3/uL; Monocyte% 7.7 % (0-10); NRBC Flagged by Analyzer 0 % (0-5); Neutrophil # 4.38 X10^3/uL (2.7-7.7); Neutrophil % 61.5 % (47-70); Platelet Count 304 K/mm3 (150-450); RBC Distribution Width CV 13.9 % (11.6-14.6); RBC Distribution Width SD 42.4 fl (35.1-43.9); White Blood Count 7.1 K/mm3 (4.4-11.0)
--- NOTE | 2022-06-13 19:12 | CT_ITS ---
STUDY: CT Abdomen And Pelvis W/ Contrast Injection 06/13/2022 7:41 PM REASON FOR EXAM: Female, 56 years old. ABDOMINAL PAIN Abdominal Pain TECHNIQUE: Transaxial images were obtained without oral contrast, and with IV 100mL Isovue-300 intravenous contrast. Individualized dose optimization techniques were used for this CT. COMPARISON: None. FINDINGS: The visualized lung bases are unremarkable. The visualized portions of the heart are within normal limits. Unremarkable liver. Unremarkable gallbladder and extrahepatic biliary system. Unremarkable spleen. Unremarkable pancreas. Ascites. Unremarkable bilateral adrenal glands. No acute findings of the right kidney. No acute findings of the left kidney. Focal wall thickening of the antrum of stomach. This can suggest a gastritis. Unremarkable small intestine. Unremarkable colon. The appendix is visualized and appears unremarkable. There are calcifications of the abdominal aorta. This is consistent for atherosclerotic disease. There is no abdominal aortic aneurysm. Unremarkable inferior vena cava. Subcentimeter mesenteric lymph nodes. Mesenteric edema. Unremarkable urinary bladder. There is an umbilical hernia containing fat. Unremarkable osseous structures. CT/Abdomen/Pelvis W IV Cont ONLY IMPRESSION: (NOT LISTED IN ORDER OF SIGNIFICANCE) Gastritis. Ascites. Other findings as above. Electronically Signed: Mark Montemayor MD at 20:01 EDT ,
[2022-06-13 19:28] LABS: AST(SGOT) 21 U/L (15-37); Alanine Aminotransfer ALT/SGPT 32 U/L (13-56); Albumin, Serum 3.5 g/dL (3.2-5.0); Alkaline Phosphatase 69 U/L (45-117); Anion Gap 3 (5-15); BUN 14 mg/dL (7-18); BUN/Creat Ratio 14.4 RATIO (10-20); Calcium,Total 8.9 mg/dL (8.5-10.1); Chloride 110 mmol/L (98-107); Creatinine, Serum 0.97 mg/dL (0.55-1.02); EST Glomerular Filtration Rate 63 mL/min (>60); Est Glom Filt Rate - Afr Amer 76 mL/min (>60); Estimated Creatinine Clearance 57.97 ml/min; Globulin 3.5 g/dL (2.2-4.2); Glucose 96 mg/dL (74-106); Lipase 148 U/L (73-393); Potassium 3.7 mmol/L (3.5-5.1); Sodium Level 142 mmol/L (136-145)
--- NOTE | 2022-06-13 20:36 | EDS_ITS ---
HPI HPI - GI History of Present Illness Chief Complaint: Abd Pain Narrative Narrative: Patient presents with abdominal pain that she is had since January, almost 4 months. She states it started with diarrhea that she had for at least 10 days. She saw her primary care physician. Her diarrhea resolved, but she continued to have abdominal pain. This continued for the last few months. Finally, she states a few weeks ago the abdominal pain and cramping that is diffuse was so bad that she called her primary care physician again who had an ultrasound performed. She states that there was something on my pancreas that needed to be evaluated. She has an MRI of her abdomen scheduled for Monday, 5 days from now, but she states her pain intensified. Additionally, she had been referred to gastroenterology, but had not been able to schedule appointment until July, 2 months from now. She denies any fevers or chills, no nausea or vomiting actively, but she has intense abdominal pain at times. She states she is frustrated. She has not had diarrhea. That has all resolved. She presents because of the ongoing pain in her abdomen. PFSH PFSH Medical History Abdominal pain Acute bronchitis Acute ST elevation myocardial infarction (STEMI) Atherosclerotic heart disease of [place] coronary artery without angina pectoris Bowel incontinence COVID-19 (09/04/21) Diarrhea Hx of blood clots Tobacco use Home Medications aspirin 81 mg tablet,delayed release 81 mg PO BREAKFAST 90 days #90 tabs 12/17/21 [Rx Last Taken Unknown] ezetimibe 10 mg tablet (Zetia) 10 mg PO DAILY #90 tabs 12/17/21 [Rx Last Taken Unknown] clopidogrel 75 mg tablet (Plavix) 75 mg PO QDAY #93 tabs 04/11/22 [Rx Last Taken Unknown] nicotine 7 mg/24 hr daily transdermal patch (Nicoderm CQ) 1 patch transdermal Q24H 05/19/22 [History Last Taken Unknown] dicyclomine 20 mg tablet 20 mg PO TID PRN abdominal discomfort #30 tabs 06/13/22 [Rx Last Taken Unknown] famotidine 20 mg tablet (Pepcid) 20 mg PO BID #30 tabs 06/13/22 [Rx Last Taken Unknown] Allergy/AdvReac Type Severity Reaction Status Date / Time sulfamethoxazole Allergy Hives Verified 06/13/22 18:44 [From Bactrim] trimethoprim [From Bactrim] Allergy Hives Verified 06/13/22 18:44 atorvastatin AdvReac Severe Several Verified 06/13/22 18:44 UTI's, diarrhea, poor appetite metoprolol AdvReac Severe Severe Verified 06/13/22 18:44 diarrhea and fatigue Family History Grandmother Cancer Ovarian Grandfather Cancer Lung Heart disease Mother Thyroid disorder Sister Thyroid disorder Sister Thyroid disorder Sister Thyroid disorder Colon cancer Father Hypertension Heart disease Surgical History History of coronary artery stent placement (09/13/21) History of elbow surgery History of tubal ligation Social History household members: none Smoking Status: Current every day smoker tobacco type: cigarettes quit status: quit date established alcohol intake: current details: rarely substance use type: does not use caffeine: No ROS ROS ED ROS Narrative Constitutional: No fever, no chills. HEENT: No sore throat. No neck pain. No loss of vision. No rhinorrhea. Cardiovascular: No chest pain. No palpitations. No pedal edema. Respiratory: No cough, no shortness of breath. Abdominal: Positive abdominal pain. No nausea. No vomiting. No diarrhea. Genitourinary: No dysuria. No hematuria. Musculoskeletal: No myalgias. No arthralgias. Neurologic: No headaches. No dizziness. No lightheadedness. Skin: No rash. No change in color. Psychiatric: No depression. No anxiety. EXAM Physical Exam Narrative Exam Narrative: Afebrile. Vital signs noted. HEENT: Normocephalic. Atraumatic. PERRL, EOMI. Neck soft and supple. No point tenderness or step off. Cardiovascular: Positive tachycardia, no murmurs, rubs, or gallops appreciated. Respiratory: No tachypnea. Lungs clear to auscultation bilaterally. Gastrointestinal: Abdomen soft, nontender, with normoactive bowel sounds. No rebound or guarding. Neurological: Awake. Alert. Nonfocal, nonlateralizing. Skin: No rash. Normal color. No pallor. Musculoskeletal: No pedal edema. Full range of motion extremities. Const Vital Signs: 06/13/22 17:53 06/13/22 21:04 Temperature 97.8 F 97.9 F Temperature Source Temporal Temporal Pulse Rate 118 H 73 Respiratory Rate 14 16 Blood Pressure 160/89 H 121/80 H Blood Pressure Mean 112 93 Pulse Ox 98 99 Oxygen Delivery Method Room Air Room Air MDM MDM MDM Narrative Medical decision making narrative: I had a lengthy discussion with the patient. She was advised to keep her MRI of her abdomen on Monday. I did baseline laboratories and she has a normal white count of 7.1, hemoglobin normal at 13.0, hematocrit 39.0. Platelet count normal at 304. Her electrolyte panel/CMP shows chloride elevated at 110 but normal BUN of 14 and creatinine 0.97. LFTs are grossly unremarkable with an AST of 21 and ALT of 32. Lipase normal at 148. Alk phos is also normal at 69. CT of the abdomen pelvis was obtained which shows gastritis and ascites but reported unremarkable pancreas. With normal LFTs, I am unsure as to the cause of her ascites. Her urinalysis shows 5-10 WBCs. She is not having dysuria or urinary frequency. I do not feel antibiotics are indicated, but I will send her urine for culture. I will treat her gastritis with a prescription for Pepcid and advised that she follow-up with gastroenterology. I feel she be discharged safely home with follow-up. Return instructions to the emergency department were reviewed. Disposition is discharged home in stable condition. Lab Data Attestation: I reviewed the patient's lab results. Labs: Laboratory Results - last 24 hr 06/13/22 06/13/22 06/13/22 19:00 19:00 20:41 WBC 7.1 RBC 4.70 Hgb 13.0 Hct 39.0 MCV 83.0 MCH 27.7 MCHC 33.3 RDW Std Deviation 42.4 RDW Coeff of Nicholas 13.9 Plt Count 304 MPV 10.1 Immature Gran % (Auto) 0.100 Neut % (Auto) 61.5 Lymph % (Auto) 26.2 [place] % (Auto) 7.7 Eos % (Auto) 3.8 Baso % (Auto) 0.7 Absolute Neuts (auto) 4.4 Absolute Lymphs (auto) 1.87 Nucleated RBC % 0 Sodium 142 Potassium 3.7 Chloride 110 H Carbon Dioxide 29.0 Anion Gap 3 L BUN 14 Creatinine 0.97 Estim Creat Clear Calc 57.97 Est GFR (MDRD) Af Amer 76 Est GFR (MDRD) Non-Af 63 BUN/Creatinine Ratio 14.4 Glucose 96 Calcium 8.9 Total Bilirubin 0.30 AST 21 ALT 32 Alkaline Phosphatase 69 Total Protein 7.0 Albumin 3.5 Globulin 3.5 Albumin/Globulin Ratio 1.0 Lipase 148 Urine Color Straw Urine Clarity Clear Urine pH 7.0 Ur Specific [place] 1.005 Urine Protein Negative Urine Glucose (UA) Normal Urine Ketones 5 H Urine Occult Blood Negative Urine Nitrite Negative Urine Bilirubin Negative Urine Urobilinogen Normal Ur Leukocyte Esterase 500 H Urine RBC 0 SEEN Urine WBC 5-10 SEEN Ur Squamous Epith Cells 0-5 SEEN Urine Bacteria 1+ Urine Mucus 0 SEEN Radiography Diagnostic Testing: Clinical Impression(s) from Imaging Studies Abdomen/Pelvis CT 06/13/22 19:12 IMPRESSION: (NOT LISTED IN ORDER OF SIGNIFICANCE) Gastritis. Ascites. Other findings as above. Electronically Signed: Mark Montemayor MD at 20:01 EDT Reading Location ID and State: [facility] / [place] , Service support , Discharge Plan Triage Chief Complaint: Abd Pain ED Provider: Srinivasan Yates Dx/Rx/DC Orders Clinical Impression: Abdominal pain, Ascites, Gastritis Instructions: ED Abdominal Pain Unkn Cause Fem, ED Ascites, ED Gastritis (Adult) Prescriptions: New famotidine [Pepcid] 20 mg tablet 20 mg PO BID Qty: 30 0RF dicyclomine 20 mg tablet 20 mg PO TID PRN (Reason: abdominal discomfort) Qty: 30 0RF No Action clopidogrel [Plavix] 75 mg tablet 75 mg PO QDAY Qty: 93 3RF Rx Instructions: Day 1: 300mg (4 pills), Day two and forward: 75 mg (1 pill) PO Daily. nicotine [Nicoderm CQ] 7 mg/24 hr patch 24 hour 1 patch transdermal Q24H aspirin 81 mg tablet,delayed release (DR/EC) 81 mg PO BREAKFAST 90 Days Qty: 90 3RF ezetimibe [Zetia] 10 mg tablet 10 mg PO DAILY Qty: 90 3RF Primary Care Provider: Willi Sofia Referrals: Willi Sofia MD [Primary Care Provider] - 3-5 Days Friend,DO Mack [Med Staff - Active Staff] - As soon as possible Activity Restrictions/Additional Instructions: Have your MRI of your abdomen performed on Monday as scheduled. Disposition Disposition: Home, Self Care
[2022-06-13 20:53] LABS: Mucous, Urine 0 SEEN /hpf (<or=2+); Red Blood Cells-Urine 0 SEEN /hpf (0-5)
[2022-06-13] MEDS: Dicyclomine 10 MG Capsule 20 MG PO (20:53)
[2022-06-13 21:01] LABS: Glucose, Dipstick Normal (Normal); Ketone-Dipstick 5 mg/dl (Negative); Leukocyte Esterase-Dipstick 500 /ul (Negative); Nitrite-Dipstick Negative (Negative); Occult Blood-Urine Negative /ul (Negative); Protein-Dipstick Negative (Negative); Specific Gravity, Urine 1.005 (1.002-1.030); Urine Bilirubin Dipstick Negative (Negative); Urine Urobilinogen Normal (Normal)
[2022-06-13 21:04] VITALS: BP 121/80; PULSE 73; RESP 16; TEMP 36.6; O2SAT 99
[2022-06-13 21:29] LABS: Color, Urine Straw (Yellow); Urine Clarity Clear (Clear)
[2022-06-13 21:30] LABS: Bacteria 1+ /hpf (None Seen); Squamous Epithelial Cells - UA 0-5 SEEN /hpf (5-10); White Blood Cells 5-10 SEEN /hpf (0-5)
== END 2022-06-13 21:46 | disposition home or self-care (01) ==
PROVIDERS: Emergency Provider Emergency Medicine; PCP Family Medicine; Visit Provider Emergency Medicine
DX: R10.9 Unspecified abdominal pain (principal); I25.2 Old myocardial infarction; Z86.16 Personal history of COVID-19; I25.10 Atherosclerotic heart disease of native coronary artery without angina pectoris; Z79.82 Long term (current) use of aspirin; F17.210 Nicotine dependence, cigarettes, uncomplicated; R18.8 Other ascites; K29.70 Gastritis, unspecified, without bleeding
CPT/HCPCS: 74177; 80053; 81001; 83690; 85025; 87086; 99218; 99284; J7030; Q9967; A4216; G0378

== ENCOUNTER → 2022-06-17 | Outpatient (CLI) | payer OTHER, SELFPAY ==
--- NOTE | 2022-06-17 07:45 | MRI_ITS ---
STUDY: MRI ABDOMEN WITH AND WITHOUT CONTRAST REASON FOR EXAM: Female, 56 years old. PANCREATIC CYST TECHNIQUE: Standardized fat and water weighted pulse sequences were obtained in all 3 orthogonal planes post contrast administration. IV 10ml Clariscan was administered for the contrast portion of the examination. COMPARISON: CT 06/13/2022. FINDINGS: The visualized lung bases are unremarkable. The visualized portions of the heart are within normal limits. Normal liver. Normal gallbladder and extrahepatic biliary system. Normal spleen. Normal pancreas. Normal bilateral adrenal glands. Normal right kidney. Normal left kidney. Normal visualized stomach. Normal small intestine. Normal colon. There is moderate volume ascites. There are 2 thin-walled well-circumscribed T1 hypointense/T2 hyperintense fluid collections in the left lower abdominal quadrant. One measures 1.2 x 0.8 cm while the other measures 3.6 x 2.7 cm. They do not enhance. Normal abdominal aorta. Normal inferior vena cava. Normal retroperitoneum. Normal abdominal wall. Normal osseous structures. MRI/MRI Abd WITH and W/O Contrast IMPRESSION: Two nonenhancing focal fluid collections in the left lower abdominal quadrant. Differential includes enteric duplication cysts or pancreatic pseudocysts. Moderate volume ascites of unknown cause. Electronically Signed: Syed Diaz MD at 16:13 EDT ,
== END | disposition home or self-care (01) ==
PROVIDERS: PCP Family Medicine; Referring Provider Family Medicine; Visit Provider Family Medicine
DX: K86.2 Cyst of pancreas (principal)
CPT/HCPCS: 74183; A9575; A4216

== ENCOUNTER 2022-06-20 17:01 | Inpatient (IN) | payer OTHER, SELFPAY ==
[2022-06-20 17:02] VITALS: BP 122/76; PULSE 97; RESP 15; TEMP 36.3; O2SAT 99; BMI 18.3
--- NOTE | 2022-06-20 17:48 | EDS_ITS ---
HPI History of Present Illness Chief Complaint: Abd Pain Informant: patient Narrative Narrative: 56-year-old female presents to the emergency room with chronic abdominal pain. Patient states that this is been going on for at least 2 months. She was seen in the emergency room on 82. The documentation at that time states that its been going on longer. She saw her primary care doctor who ordered ultrasound. She states that this was negative. On the 82 emergency department visit she had normal CBC CMP and lipase. CT of the abdomen pelvis at that time was read as ascites and gastritis. She was started on Pepcid and Bentyl. She had a MRI ordered through her primary care doctor in 06/17. This was read as moderate volume ascites and 2 fluid collections noted in the left lower quadrant. 1 was 1.2 x 0.8 cm and the second 3.6 x 2.7 cm. There is no noted enhancement. Patient states that she was given a referral to [facility] gastroenterology but could not be seen until August. She states that she called [facility] and has an appointment in July. She states that the pain continues to worsen and she does not know what to do so she came to emergency tonight. There is been no change in her symptoms. She has been able to eat drink have normal bowel movements and urinate normally. There is been no fevers. She states that she has lost weight recently but does not know why because she is eating. PFSH PFSH Medical History Abdominal pain Acute ST elevation myocardial infarction (STEMI) Atherosclerotic heart disease of [place] coronary artery without angina pectoris Bowel incontinence COVID-19 (09/04/21) Diarrhea Hx of blood clots Tobacco use Home Medications aspirin 81 mg tablet,delayed release 81 mg PO BREAKFAST 90 days #90 tabs 12/17/21 [Rx Last Taken Unknown] ezetimibe 10 mg tablet (Zetia) 10 mg PO DAILY #90 tabs 12/17/21 [Rx Last Taken Unknown] clopidogrel 75 mg tablet (Plavix) 75 mg PO QDAY #93 tabs 04/11/22 [Rx Last Taken Unknown] nicotine 7 mg/24 hr daily transdermal patch (Nicoderm CQ) 1 patch transdermal Q24H 05/19/22 [History Last Taken Unknown] dicyclomine 20 mg tablet 20 mg PO TID PRN abdominal discomfort #30 tabs 06/13/22 [Rx Last Taken Unknown] famotidine 20 mg tablet (Pepcid) 20 mg PO BID #30 tabs 06/13/22 [Rx Last Taken Unknown] Allergy/AdvReac Type Severity Reaction Status Date / Time sulfamethoxazole Allergy Hives Verified 06/20/22 17:02 [From Bactrim] trimethoprim [From Bactrim] Allergy Hives Verified 06/20/22 17:02 atorvastatin AdvReac Severe Several Verified 06/20/22 17:02 UTI's, diarrhea, poor appetite metoprolol AdvReac Severe Severe Verified 06/20/22 17:02 diarrhea and fatigue Family History Grandmother Cancer Ovarian Grandfather Cancer Lung Heart disease Mother Thyroid disorder Sister Thyroid disorder Sister Thyroid disorder Sister Thyroid disorder Colon cancer Father Hypertension Heart disease Surgical History History of coronary artery stent placement (09/13/21) History of elbow surgery History of tubal ligation Social History household members: none Smoking Status: Light Smoker (<10/day) quit status: quit date established alcohol intake: current details: rarely substance use type: does not use caffeine: No ROS ROS ED Constitutional Constitutional ED: Reports weight loss; Denies chills or fever(s) Eyes Eyes: Denies change in vision or diplopia ENT ENT ED: Denies ear pain, rhinorrhea or sore throat Cardiovascular Cardiovascular: Denies chest pain, orthopnea, palpitations or racing heartbeat Respiratory/Chest Respiratory/Chest: Denies cough, dyspnea or orthopnea Gastrointestinal Gastrointestinal: Reports abdominal pain; Denies constipation, diarrhea, nausea or vomiting Genitourinary Genitourinary ED: Denies dysuria, hematuria or urinary frequency Musculoskeletal Musculoskeletal: Denies arthralgias or myalgias Integumentary Denies abscess or rash Neurologic Neurologic: Denies headache(s) or weakness Psychiatric Psychiatric: Denies anxiety, depression, suicidal ideation or suicidal thoughts Endocrine Endocrinology: Denies polydipsia, polyphagia or polyuria Allergic/Immunologic Allergic/Immunologic ED: Denies mouth swelling, tongue swelling or urticaria EXAM Physical Exam Const Vital Signs: 06/20/22 17:02 Temperature 97.4 F L Temperature Source Temporal Pulse Rate 97 Respiratory Rate 15 Blood Pressure 122/76 H Blood Pressure Mean 91 Pulse Ox 99 Oxygen Delivery Method Room Air Positive well nourished and well developed General Appearance ED: well developed HEENT Reports normocephalic, head/scalp atraumatic and moist mucous membranes Eyes PERRL and EOMs intact bilaterally Neck no lymphadenopathy, supple and no JVD Resp normal respiratory effort and clear to auscultation bilaterally Cardio regular rate, regular rhythm and no murmurs GI GI Narrative: There does appear to be some ascites present on abdominal exam Auscultation: normoactive bowel sounds Palpation: soft and tender periumbilical Back/Spine no CVA tenderness and normal ROM Extremity normal to inspection General Extremety ED: Negative for edema General Extremity: Negative for edema Neuro oriented x3 and CN's II-XII intact bilaterally Sensorium / Orientation: alert Motor Exam: strength 5/5 throughout Psych mental status grossly normal Mood & Affect: Negative for depressed or tearful Skin no rashes or lesions noted and no wounds MDM MDM MDM Narrative Medical decision making narrative: I spoke with Dr. Rajput and we reviewed the patient's labs and MRI CT. His recommendation is that we obtain additional blood work and bring her in for paracentesis and further evaluation. Patient is amendable to this plan. Discharge Plan Triage Chief Complaint: Abd Pain ED Provider: Suresh Shields Dx/Rx/DC Orders Clinical Impression: Abdominal pain, Ascites, Unexplained weight loss Prescriptions: No Action clopidogrel [Plavix] 75 mg tablet 75 mg PO QDAY Qty: 93 3RF Rx Instructions: Day 1: 300mg (4 pills), Day two and forward: 75 mg (1 pill) PO Daily. nicotine [Nicoderm CQ] 7 mg/24 hr patch 24 hour 1 patch transdermal Q24H famotidine [Pepcid] 20 mg tablet 20 mg PO BID Qty: 30 0RF dicyclomine 20 mg tablet 20 mg PO TID PRN (Reason: abdominal discomfort) Qty: 30 0RF aspirin 81 mg tablet,delayed release (DR/EC) 81 mg PO BREAKFAST 90 Days Qty: 90 3RF ezetimibe [Zetia] 10 mg tablet 10 mg PO DAILY Qty: 90 3RF Primary Care Provider: Willi Sofia Referrals: Willi Sofia MD [Primary Care Provider] - Disposition Disposition: Acute Care Hospital [facility]
--- NOTE | 2022-06-20 18:03 | RAD_ITS ---
STUDY: X-RAY CHEST REASON FOR EXAM: Female, 56 years old. Weight loss. TECHNIQUE: Single AP portable view of the chest. COMPARISON: 11/02/2021 FINDINGS: The lungs are mildly hyperexpanded. There is no acute infiltrate or mass. There is no demonstrated pleural abnormality. Normal size heart. Normal mediastinum and hong. Normal visualized pulmonary arteries. Normal visualized aortic arch and descending thoracic aorta. Normal visualized thoracic spine. Normal visualized ribs, clavicles, and shoulders. There is no demonstrated abnormality of the visualized soft tissue structures of the upper abdomen. RAD/Chest 1 View (Portable) IMPRESSION: No acute cardiopulmonary disease or major interval change. Electronically Signed: Alessandro Brown DO at 20:07 EDT ,
[2022-06-20 18:12] VITALS: BP 131/93; PULSE 97; RESP 16; TEMP 36.3
[2022-06-20] MEDS: oxyCODONE 5 MG Tablet PO (18:12)
[2022-06-20] MEDS: Ondansetron 4 MG/2 ML Vial IV (18:12)
--- NOTE | 2022-06-20 18:14 | HP.PCM.HOS_ITS ---
HPI - General General Date of Admission: 06/20/22 Date of Service: 06/20/22 Chief Complaint: Intractable abdominal pain HPI Narrative The patient is a 56 y/o F w/ PMHx: CAD s/p PCI (STEMI 08/2021 w/ mid RCA PCI), HTN, HLD, Hx VTE, Tobacco use although notable decreased since heart attack down to 1-2 cig/daily maximum who presents to the [facility] [place] ED on 06/20/22 with history of onset ongoing nausea as well as ~ 10 days of persistent diarrhea starting in 01/2022 with PCP evaluation at that time but eventual resolution of the diarrhea but ongoing nausea episodes with then onset 04/2022 ongoing persistent dull aching with occasional sharp stabbing periumbical abdominal pain, rated 2-5/10 in severity with nausea without emesis and night sweats with no diarrhea and normal once daily in AM bowel movements with PCP evaluation with outpatient US which was reportedly normal with ED evaluation 06/13/[address] A/P w/ reported gastritis and ascites and normal labs with discharge to home with follow-up PCP directed 06/17/22 MRI with moderate volume ascites with two thin walled well defined fluid collections without enhancement (1.2 x 0.8, 3.6 x 2.7 cm) in the LLQ with referral made to GI Dr. Rajput who now re-presents to the [facility] ED on 06/20/22 history of ongoing constant abdominal pain in the similar region but worsened, rated pain for the last 1-2 weeks 8-10/10 in severity with ~9 lb weight loss with decreased oral intake and ongoing night sweats. In the ED ER physician discussed case with Dr. Rajput, GI with whom she has been planned to follow who requested ED initiated ESR, CRP, LDH, amylase, CEA, CA-125, CA-19. In the ED work-up included T97.4, heart rate 97, BP 122/76, respiratory rate 15, 99% on room air, CBC with WC 5.9, hemoglobin 13.7, platelets 302 without marked shift, unremarkable coags, CMP with BUN/creat 15/1.23, glucose 109 otherwise hepatic profile unremarkable, lipase 152. Labs ordered per ED physician per GI with noted ESR 19, CRP 12.4, LDH 140, amylase 49, pending CEA, CA 19-9 and CA125. CXR pending upon evaluation given tobacco use history and acute presentation concerns. PFSH Medical History Acute ST elevation myocardial infarction (STEMI) Atherosclerotic heart disease of [place] coronary artery without angina pectoris COVID-19 (09/04/21) HLD (hyperlipidemia) Hx of blood clots Tobacco use Home Medications clopidogrel 75 mg tablet (Plavix) 75 mg PO QDAY #93 tabs 04/11/22 [Rx Last Taken Unknown] nicotine 7 mg/24 hr daily transdermal patch (Nicoderm CQ) 1 patch transdermal Q24H 05/19/22 [History Last Taken Unknown] dicyclomine 20 mg tablet 20 mg PO TID PRN abdominal discomfort #30 tabs 06/13/22 [Rx Last Taken Unknown] famotidine 20 mg tablet (Pepcid) 20 mg PO BID #30 tabs 06/13/22 [Rx Last Taken Unknown] ezetimibe 10 mg tablet (Zetia) 10 mg PO BID 06/20/22 [History Last Taken Unknown] Allergy/AdvReac Type Severity Reaction Status Date / Time sulfamethoxazole Allergy Hives Verified 06/20/22 17:02 [From Bactrim] trimethoprim [From Bactrim] Allergy Hives Verified 06/20/22 17:02 atorvastatin AdvReac Severe Several Verified 06/20/22 17:02 UTI's, diarrhea, poor appetite metoprolol AdvReac Severe Severe Verified 06/20/22 17:02 diarrhea and fatigue Family History Grandmother Cancer Ovarian Grandfather Cancer Lung Heart disease Mother Thyroid disorder Sister Thyroid disorder Sister Thyroid disorder Sister Thyroid disorder Colon cancer Father Hypertension Heart disease Surgical History History of coronary artery stent placement (09/13/21) History of elbow surgery History of tubal ligation Social History (Updated 06/20/22 @ 19:[address] Onelia Dee MD) household members: none Smoking Status: Light Smoker (<10/day) quit status: considering quitting alcohol intake: current alcohol intake frequency: holidays/special occasions only details: rarely substance use type: does not use caffeine: No ROS ROS Narrative Admission Review of Systems: CONSTITUTIONAL: + weight loss, night sweats, weakness or fatigue. No fever, chills. HEENT: Eyes: No visual loss, blurred vision, double vision or yellow sclerae. Ears, Nose, Throat: No hearing loss, sneezing, congestion, runny nose or sore t hroat. SKIN: No rash or itching, lesions, wounds. CARDIOVASCULAR: No chest pain, chest pressure or chest discomfort, palpitations, edema, orthopnea, syncopal events. RESPIRATORY: No shortness of breath, cough or sputum, wheezing, hemoptysis. GASTROINTESTINAL: + anorexia, nausea, abdominal pain, transient remote diarrhea which resolved, No vomiting, melena, BRBPR. GENITOURINARY: No dysuria, frequency, urgency or retention. NEUROLOGICAL: No headache, dizziness, syncope, paralysis, ataxia, numbness or tingling in the extremities, focal weakness, change in bowel or bladder control, seizure. MUSCULOSKELETAL: No muscle, back pain, joint pain or stiffness. HEMATOLOGIC: No anemia, bleeding or bruising. LYMPHATICS: No enlarged nodes. No history of splenectomy. PSYCHIATRIC: No history of depression or anxiety. ENDOCRINOLOGIC: + reports of sweating. No cold or heat intolerance. No polyuria or polydipsia. ALLERGIES:+ history of hives. Vital Signs Vital Signs Vital Signs: 06/20/22 17:02 Temperature 97.4 F L Temperature Source Temporal Pulse Rate 97 Respiratory Rate 15 Blood Pressure 122/76 H Blood Pressure Mean 91 Pulse Ox 99 Oxygen Delivery Method Room Air Weight Weight: 116 lb 13.52 oz Body Mass Index (BMI) 18.3 Physical Exam Narrative Physical Examination: General: Awake, alert, oriented x 3 and cooperative, seated upright in the ED bed, fatigued, uncomfortable appearing. Skin: Normal color, normal turgor, no icterus, no cyanosis. HEENT: AT/NC, EOMI, PERRLA, dry MM, no carotid bruits or JVD noted. Lungs: Mildly diminished, greater bases, appropriate effort, no rales, ronchi or wheezing. Heart: Mildly tachycardic with regular rhythm; no gallop, rub audible. Abdomen: Soft, discomfort to bilateral lower quadrant palpation as well as periumbilical, some voluntary guarding in the bilateral lower quadrants although seemingly worse in the right lower quadrant than the left despite image findings, no severe distention, mildly hyperactive bowel sounds, no obvious HSM but difficult as painful evaluation. Extremities: No cyanosis, clubbing, or edema. Neurological: Patient awake, alert, oriented as noted, cognitive function intact; pupils equally reactive to light and accommodation, cranial nerves grossly normal, moving all 4 extremities, no focal deficits, strength mildly to moderately glued Sarah secondary to acute complaints Psychiatric: Affect appears fatigued, tearful because of the pain and discussion of ongoing issues with no underlying history of depression and anxiety and do suspect that her current presentation is appropriate. Results Lab / Micro Data Result Diagrams: 06/20/22 18:05 06/20/22 18:05 Assessment & Plan Assessment/Plan (1) Abdominal pain: PLAN: Plan The patient is a 56 y/o F w/ PMHx: CAD s/p PCI (STEMI 08/2021 w/ mid RCA PCI), HTN, HLD, Hx VTE, Tobacco use although notable decreased since heart attack down to 1-2 cig/daily maximum who presents to the [facility] ED on 06/20/22 with history of onset ongoing nausea as well as ~ 10 days of persistent diarrhea starting in 01/2022 with PCP evaluation at that time but eventual resolution of the diarrhea but ongoing nausea episodes with then onset 04/2022 ongoing persistent dull achi ng with occasional sharp stabbing periumbical abdominal pain, rated 2-5/10 in severity with nausea without emesis and night sweats with no diarrhea and normal once daily in AM bowel movements with PCP evaluation with outpatient US which was reportedly normal with ED evaluation 06/13/[address] A/P w/ reported gastritis and ascites and normal labs with discharge to home with follow-up PCP directed 06/17/22 MRI with moderate volume ascites with two thin walled well defined fluid collections without enhancement (1.2 x 0.8, 3.6 x 2.7 cm) in the LLQ with referral made to GI Dr. Rajput who now re-presents to the [facility] ED on 06/20/22 history of ongoing constant abdominal pain. #1. Intractable abdominal pain with moderate volume ascites of unclear etiology with additionally 2 nonenhancing fluid focal collections in the left lower abdominal quadrant: Will admit to [facility], as noted ED initiated labs included ESR 19, CRP 12.4, LDH 140, amylase 49, pending CEA, CA 19-9 and CA125, discussed case also with GI and Cardiology upon patient admission with planned plavix hold, planned attempt for radiology to obtain fluid/sample from the 3.6 x 2.7 cm collection as well as the ascitic fluid although unclear exact date as requesting but last plavix intake 06/20/22 AM thus clarification in AM once IR present, will request per discussion with GI cell count and differential, total protein concentration, culture, glucose LDH, gram stain, amylase, cytology. Coags already obtained in the ED. PRN pain regimen, PRN antiemetics. #2. Mild renal insufficency: Secondary to admitted recent poor oral intake secondary to pain, admission BUN/Cr 15/1.23, prior baseline creatinine noted to be primarily 0.8 to maximum 0.9 although has bumped in the past up to 1.0. Will hydrate judiciously given moderate volume ascites as noted and repeat renal function in AM. #3. CAD status post STEMI: Patient with mid RCA PCI 08/2021 with STEMI presentation, discussed with cardiology and will hold Plavix for procedure but their preference is to resume following instead of potential asa 81 mg transition for single agent given timeline, statin intolerance was noted and metoprolol intolerance with no current BP regimen with in office normal level with continued planned close observation and regimen in addition if appropriate. #4. Hypertension: Previously had been initiated on metoprolol however she had significant side effects and this was discontinued, currently per cardiology not on regimen as BP had been normal in the office, will continue to closely monitor and add regimen if appropriate, as needed IV hydralazine in interim. #5. Hyperlipidemia: We will continue patient home Zetia regimen, statin in tolerance history. #6. History of VTE: Continue SCDs, not on any chronic anticoagulation currently , remote. #7. Tobacco Abuse: Encouraged cessation, inpatient consultation per RT, patient is now down to 1 cigarette to maximum 2 cigarettes daily but has not even had a cigarette for the last 1 to 2 weeks. #8. GERD: We will maintain on famotidine. #9. DVT prophylaxis: SCDs, hold chemoprophylaxis for possible intervention although do suspect that likely given Plavix intake 06/20/2020 2 AM the paracentesis will be deferred. Charges/Coding Visit Charges OBSV E&M: 20977 Initial observation care L3
[2022-06-20 18:19] LABS: Erythrocyte Sedimentation Rate 19 mm/hr (0-30)
[2022-06-20 18:21] LABS: Absolute Lymphocyte Count 1.48 X10^3/uL (0.83-4.51); Absolute Neutrophil Count 3.7 X10^3/uL (2.0-7.7); Basophil# 0.04 X10^3/uL; Basophil% 0.7 % (0-1); Eosinophil# 0.13 X10^3/uL; Eosinophils% 2.2 % (0-5); Hematocrit 41.7 % (37-47); Hemoglobin 13.7 g/dL (12.0-15.0); Lymphocyte # 1.48 X10^3/ul (0.83-4.51); Lymphocyte % 25.3 % (19-41); Mean Corp Hgb Conc 32.9 g/dL (32-36); Mean Corpuscular Hgb 27.6 pg (27.0-32.0); Mean Corpuscular Volume 83.9 fL (81-99); Mean Platelet Vol. 9.8 fl (6.2-12.0); Monocyte# 0.52 X10^3/uL; Monocyte% 8.9 % (0-10); NRBC Flagged by Analyzer 0 % (0-5); Neutrophil # 3.68 X10^3/uL (2.7-7.7); Neutrophil % 62.7 % (47-70); Platelet Count 302 K/mm3 (150-450); RBC Distribution Width CV 13.7 % (11.6-14.6); RBC Distribution Width SD 41.9 fl (35.1-43.9); Red Blood Count 4.97 M/mm3 (4.2-5.4); White Blood Count 5.9 K/mm3 (4.4-11.0)
[2022-06-20 18:34] LABS: AST(SGOT) 19 U/L (15-37); Alanine Aminotransfer ALT/SGPT 27 U/L (13-56); Albumin, Serum 3.4 g/dL (3.2-5.0); Alkaline Phosphatase 77 U/L (45-117); Amylase 49 U/L (25-115); Anion Gap 5 (5-15); BUN 15 mg/dL (7-18); BUN/Creat Ratio 12.2 RATIO (10-20); Bilirubin, Direct 0.07 mg/dL (0.00-0.30); Calcium,Total 9.1 mg/dL (8.5-10.1); Chloride 107 mmol/L (98-107); Creatinine, Serum 1.23 mg/dL (0.55-1.02); EST Glomerular Filtration Rate 48 mL/min (>60); Est Glom Filt Rate - Afr Amer 58 mL/min (>60); Estimated Creatinine Clearance 42.73 ml/min; Globulin 3.7 g/dL (2.2-4.2); Glucose 109 mg/dL (74-106); LDH 140 U/L (84-246); Lipase 152 U/L (73-393); Potassium 3.7 mmol/L (3.5-5.1); Protein, Total 7.1 g/dL (6.4-8.2); Sodium Level 139 mmol/L (136-145)
[2022-06-20 18:39] LABS: Prothrombin Time (Protime)PT. 13.1 SECONDS (11.7-14.9)
[2022-06-20 18:40] LABS: Partial Thromboplast Time 25.2 Seconds (24.1-36.2)
[2022-06-20 19:31] VITALS: BMI 18.3
[2022-06-20 19:50] VITALS: BP 105/73; PULSE 63; RESP 16; TEMP 37; O2SAT 100
[2022-06-20] MEDS: 0.9% Normal Saline 1,000 ML 100 ML IV (20:31)
[2022-06-20] MEDS: Ensure Plus High Protein 120 ML LIQUID PO (20:34)
[2022-06-20 22:55] VITALS: O2SAT 99
--- NOTE | 2022-06-21 | FLU_PTH ---
PATIENT: EVELYN HARVEY LOC: MS3 U#:[id number] AGE/SX: 56/F ROOM: HI318 RE06/20/[address]: Dr. Randy Cooney MD : 1965 BED: 1 DIS: 06/22/2022 SPEC #: [id number] RECD: 06/21/22 16:00 STATUS: NAOMI AHUMADA #: [id number] BERNIE: 06/21/22 00:[address]: Randy Cooney DEPT: CYTOLOGY RECD BY: Roldan Jimenez ENTERED: 06/22/22 08:16 SP TYPE: Fluid OTHR DR: MD Dr. Isidoro Prakash MD Dr. Mark Elderbrock, MD Tissues: PARACENTESIS FLUID Procedures: Special Stain Group II Surgery Specimen Level IV Cytospin Fluid HEADER OPERATION: Ultrasound-guided paracentesis PRE-OP DIAGNOSIS: Ascites TISSUE SUBMITTED: Paracentesis fluid for cytology DIAGNOSIS CYTOLOGY Paracentesis fluid for cytology (cytospin and cell block): Malignant cells present derived from metastatic adenocarcinoma. See comment. MARBIN:caitlin 06/23/2022 COMMENT Immunohistochemistry ([id number]) supports the above diagnosis and favors ovarian primary. Correlation with clinical, radiologic, laboratory findings and appropriate follow-up are necessary. Case has been reviewed in consultation with Dr. Sellers who concurs with the above diagnosis. IDC:AM CYTOLOGY STUDY Slides are reviewed. CYTOLOGY GROSS Received is 90 ml of chloe cloudy fluid labeled with the patient's name and and designated per the requisition as paracentesis. Submitted for cytology preparation including cell block. / caitlin 06/22/2022 TC:0 CPT: 23884, 42779
--- NOTE | 2022-06-21 | IMM_PTH ---
PATIENT: EVELYN HARVEY LOC: MS3 U#:[id number] AGE/SX: 56/F ROOM: MT318 RE06/20/[address]: Dr. Randy Cooney MD : 1965 BED: 1 DIS: 06/22/2022 SPEC #: [id number] RECD: 06/23/22 14:20 STATUS: SOUAwais REQ #: [id number] BERNIE: 06/21/22 00:[address]: Randy Cooney DEPT: IMMUNOHISTOCHEMISTRY RECD BY: Michelle Pugh ENTERED: 06/23/22 14:21 SP TYPE: IMMUNO OTHR DR: MD Dr. Isidoro Prakash MD Dr. Jennifer Vande Velde, DO Dr. Mark Elderbrock, MD Tissues: PARACENTESIS FLUID Procedures: RCC (add) NAPSIN A (add) CA-125 (add) [facility] Ret (add) CEA (add) CK20 (add) CK7 (add) CK8 (add) HEP PAR (add) MACRO (add) CT (add) TTF1 (add) Vimentin (add) Pankeratin (add) ER (initial) PHYSICIAN & INSTITUTION [place] [id number] SPECIMEN INFORMATION: Tissue Source: Paracentesis fluid Clinical Info: Ascites Specimen Number: [id number] CPT code: 37352, 61350 x14 METHODOLOGY: Deparaffinized sections of prefer/formalin-fixed tissue or PAP/DQ stained slides are incubated with monoclonal/polyclonal antibodies/oligonucleotide probes. Localization is made via biotin free immunoperoxidase method. Appropriate controls are performed and reacted as expected. Results on target cell population are indicated in the following table: RESULTS: ANTIBODY / CLONE RESULT ER (6F11) negative CT (1E2) negative AE1-3 (AE1/AE3/PCK26) positive CK7 (OV-TL12/30) positive CK8 (24xfppD55) positive CK20 (KS20.8) positive, weak, focal Vimentin (V9) negative Macro (HAM-56) negative TTF-1 (8G7G3/1) negative Napsin A (Rabbit Polyclonal) negative HepPar (OCh1E5) negative RCC (PN-15) negative CALRET (polyclonal) positive, weak CEA (11-7/TF-3HB-1) positive, weak CA125 (OC125) positive These tests were developed and their performance characteristics determined by [facility]. They may not have been cleared or approved by the U.S. Food and Drug Administration. The FDA has determined that such clearance or approval is not necessary. The above immunohistochemical/dualISH markers are ordered and reviewed by the Pathologist. INTERPRETATION: Paracentesis fluid (block): Malignant cells present derived from metastatic adenocarcinoma. See comment. SJ:caitlin 06/24/2022 Comment: IHC profile favors ovarian primary.
[2022-06-21] MEDS: oxyCODONE 5 MG Tablet PO ×3 (00:17→16:26)
[2022-06-21] MEDS: Acetaminophen 325 MG Tablet 650 MG PO ×3 (00:18→16:26)
[2022-06-21] MEDS: MELATONIN 3 MG TABLET PO (00:18)
[2022-06-21 02:13] VITALS: BP 102/68; PULSE 55; RESP 16; TEMP 36.7; O2SAT 99
[2022-06-21 05:50] LABS: Absolute Lymphocyte Count 1.95 X10^3/uL (0.83-4.51); Absolute Neutrophil Count 3.1 X10^3/uL (2.0-7.7); Basophil# 0.06 X10^3/uL; Eosinophil# 0.21 X10^3/uL; Eosinophils% 3.6 % (0-5); Hematocrit 39.8 % (37-47); Hemoglobin 13.1 g/dL (12.0-15.0); Lymphocyte # 1.95 X10^3/ul (0.83-4.51); Mean Corp Hgb Conc 32.9 g/dL (32-36); Mean Platelet Vol. 10.2 fl (6.2-12.0); Monocyte# 0.55 X10^3/uL; Monocyte% 9.3 % (0-10); NRBC Flagged by Analyzer 0 % (0-5); Neutrophil # 3.13 X10^3/uL (2.7-7.7); Neutrophil % 52.9 % (47-70); Platelet Count 289 K/mm3 (150-450); RBC Distribution Width CV 13.7 % (11.6-14.6); RBC Distribution Width SD 42.5 fl (35.1-43.9); Red Blood Count 4.68 M/mm3 (4.2-5.4); White Blood Count 5.9 K/mm3 (4.4-11.0)
--- NOTE | 2022-06-21 06:00 | EKG12_ITS ---
Test Reason : Blood Pressure : / mmHG Vent. Rate : 058 BPM Atrial Rate : 058 BPM P-R Int : 116 ms QRS Dur : 090 ms QT Int : 434 ms P-R-T Axes : 053 073 055 degrees QTc Int : 426 ms Sinus bradycardia Otherwise normal ECG When compared with ECG of 03-NOV-2021 01:36, No significant change was found Confirmed by MILDRED DOWNING, EMIL ([id number]), senior editor LADY BELTRE ([id number]) on 06/23/2022 9:41:36 AM Referred By: Confirmed By:EMIL LEVY MD
[2022-06-21 06:11] LABS: ALB/GLOB Ratio 0.8 RATIO (0.9-2.4); AST(SGOT) 18 U/L (15-37); Alanine Aminotransfer ALT/SGPT 21 U/L (13-56); Albumin, Serum 2.8 g/dL (3.2-5.0); Alkaline Phosphatase 69 U/L (45-117); Anion Gap 7 (5-15); BUN 13 mg/dL (7-18); Calcium,Total 8.1 mg/dL (8.5-10.1); Chloride 108 mmol/L (98-107); EST Glomerular Filtration Rate 61 mL/min (>60); Est Glom Filt Rate - Afr Amer 74 mL/min (>60); Estimated Creatinine Clearance 52.76 ml/min; Globulin 3.5 g/dL (2.2-4.2); Glucose 128 mg/dL (74-106); Potassium 3.8 mmol/L (3.5-5.1); Protein, Total 6.3 g/dL (6.4-8.2); Sodium Level 141 mmol/L (136-145)
--- NOTE | 2022-06-21 07:26 | PN.HOSP_ITS ---
Subjective Subjective The patient was admitted with abdominal pain for more than 2 months. She recently had CT abdomen pelvis on 06/13 MRI abdomen done by PCP as an outpatient on 06/17. Found moderate volume ascites and 2 fluid collections noted in the left lower quadrant. One 1.2 x 0.8 cm and another 3.6 x 2.7 cm. No noted enhancement. No fever, no nausea, vomiting or change in bowel movement or bladder habit. Objective Data Objective Data Vital Signs: Vital Signs Temp Pulse Resp BP Pulse Ox O2 Del Method 98.0 F 55 L 16 102/68 99 Room Air 06/21/22 02:13 06/21/22 02:13 06/21/22 02:13 06/21/22 02:13 06/21/22 02:13 06/21/22 02:13 Oxygen Delivery Method Room Air Weight: 117 lb 4.575 oz Body Mass Index (BMI) 18.3 Intake & Output: Intake and Output for Last 24 Hours 06/19/22 06/20/22 06/21/22 23:59 23:59 23:59 Intake Total 1000 / 1000 Balance 1000 / 1000 Lab / Micro Data Result Diagrams: 06/21/22 04:55 06/21/22 04:55 Labs: Laboratory Results - last 24 hr 06/20/22 18:05: WBC 5.9, RBC 4.97, Hgb 13.7, Hct 41.7, MCV 83.9, MCH 27.6, MCHC 32.9, RDW Std Deviation 41.9, RDW Coeff of Nicholas 13.7, Plt Count 302, MPV 9.8, Immature Gran % (Auto) 0.200, Neut % (Auto) 62.7, Lymph % (Auto) 25.3, [place] % (Auto) 8.9, Eos % (Auto) 2.2, Baso % (Auto) 0.7, Absolute Neuts (auto) 3.7, Absolute Lymphs (auto) 1.48, Nucleated RBC % 0, ESR 19 06/20/22 18:05: Sodium 139, Potassium 3.7, Chloride 107, Carbon Dioxide 27.0, Anion Gap 5, BUN 15, Creatinine 1.23 H, Estim Creat Clear Calc 42.73, Est GFR (MDRD) Af Amer 58 L, Est GFR (MDRD) Non-Af 48 L, BUN/Creatinine Ratio 12.2, Glucose 109 H, Calcium 9.1, Total Bilirubin 0.20, Direct Bilirubin 0.07, AST 19, ALT 27, Alkaline Phosphatase 77, Lactate Dehydrogenase 140, C-React Prot Ext Range 12.40 H, Total Protein 7.1, Albumin 3.4, Globulin 3.7, Amylase 49, Lipase 152 06/20/22 18:20: PT 13.1, INR 1.0, APTT 25.2 06/21/22 04:55: WBC 5.9, RBC 4.68, Hgb 13.1, Hct 39.8, MCV 85.0, MCH 28.0, MCHC 32.9, RDW Std Deviation 42.5, RDW Coeff of [place] 13.7, Plt Count 289, MPV 10.2, Immature Gran % (Auto) 0.200, Neut % (Auto) 52.9, Lymph % (Auto) 33.0, [place] % (Auto) 9.3, Eos % (Auto) 3.6, Baso % (Auto) 1.0, Absolute Neuts (auto) 3.1, Absolute Lymphs (auto) 1.95, Nucleated RBC % 0 06/21/22 04:55: Sodium 141, Potassium 3.8, Chloride 108 H, Carbon Dioxide 26.0, Anion Gap 7, BUN 13, Creatinine 1.00, Estim Creat Clear Calc 52.76, Est GFR (MDRD) Af Amer 74, Est GFR (MDRD) Non-Af 61, BUN/Creatinine Ratio 13.0, Glucose 128 H, Calcium 8.1 L, Total Bilirubin 0.20, AST 18, ALT 21, Alkaline Phosphatase 69, Total Protein 6.3 L, Albumin 2.8 L, Globulin 3.5, Albumin/Globulin Ratio 0.8 L Radiography Diagnostic Testing: Radiology Impression Chest X-Ray 06/20/22 18:03 IMPRESSION: No acute cardiopulmonary disease or major interval change. Electronically Signed: Alessandro Brown DO at 20:07 EDT Reading Location ID and State: [address] [place] [address] Tel [phone], Service support , Physical Exam Narrative Physical exam General: Alert, Oriented x3, Cooperative HEENT: Atraumatic, PERRLA, EOMI, Normocephalic Oral: No Gingival or Mucosal Lesions/ Ulcerations Neck: Supple, No JVD, Negative Carotid Bruits Lungs: Air entry diminished in bilateral lung bases. No crepitation/rhonchi Cardiovascular: Regular rate, Regular Rhythm, Normal S1, Normal S2, No murmurs Abdomen: Mild tenderness over upper abdomen, RUQ and LUQ. Bowel Sounds Present, Soft, shifting dullness, moderate ascites. : No renal angle tenderness. No suprapubic tenderness. Extremities: No edema, Capillary Refill Less than 3 Seconds Skin: No rashes, No breakdown Musculoskeletal: No Tenderness to Palpation of Joints or Extremities Neurological: Cranial nerves II-XII grossly intact, DTR 2+/4 and Symmetrical, Neuro grossly intact Psych/Mental Status: Normal Affect, Appropriate. Assessment & Plan Assessment/Plan (1) Abdominal pain: PLAN: Plan The patient is a 56 y/o F admitted with abdominal pain for more than 2 months with no relief. On 06/13, CT abdomen and pelvis and MRI on 06/17 reported moderate volume ascites and 2 thin-walled well-defined fluid collection without enhanc ement (1.2 x 0.8), (3.6 x 2.7 cm) in the LLQ. #1. Intractable abdominal pain with moderate volume ascites of unclear etiology with additionally 2 nonenhancing fluid focal collections in the left lower abdominal quadrant: CEA CA 19-9 and CA125 are pending. Surgery team and interventional radiology called. Plan to obtain fluid collection from 3.7 x 2 point centimeter collection. 06/21: Was measured left to interventional radiologist, Dr. Krause. Tumor markers are pending. ESR 19, CRP 12. Data Center Project Manager consulted. Recommended diagnostic paracentesis which is already ordered. She might need colonoscopy and upper endoscopy, pending further work-up. #2. Mild renal insufficency: Secondary to admitted recent poor oral intake secondary to pain, admission BUN/Cr 15/1.23, prior baseline creatinine noted to be primarily 0.8?1.0. Does not meet criteria of acute kidney injury. #3. CAD status post STEMI: Patient with mid RCA PCI 08/2021 with STEMI presentation, discussed with cardiology and hold Plavix for procedure. Statin intolerance was noted and metoprolol intolerance with severe diarrhea and fatigue. Initially patient was on Brilinta which was changed to Plavix because of increased bleeding issues. #4. Hypertension: Previously had been initiated on metoprolol however she had significant side effects and this was discontinued, currently per cardiology not on regimen as BP had been normal in the office, will continue to closely monitor and add regimen if appropriate, as needed IV hydralazine in interim. #5. Hyperlipidemia: continue patient home Zetia regimen, statin intolerance history. #6. History of VTE: Continue SCDs, not on any chronic anticoagulation currently, remote. #7. Tobacco Abuse: Encouraged cessation, inpatient consultation per RT, patient is now down to 1 cigarette to maximum 2 cigarettes daily but has not even had a cigarette for the last 1 to 2 weeks. #8. GERD: We will maintain on famotidine. #9. DVT prophylaxis: SCDs, hold chemoprophylaxis for possible intervention although do suspect that likely given Plavix intake 06/20/2020 2 AM the paracentesis will be deferred. Total time of the visit including total time spent in counseling or coordination of care, (more than 50% of the total time, spent in obtaining medical infor mation from nurses and other ancillary care providers,explaining to the patient about labs, imaging, diagnosis and management of active complex medical conditions), discussion with the salesperson trailers and motor homes, interventional radiologist, review of labs and imaging is 40 minutes. Charges/Coding Visit Charges Inpatient E&M: 76462 [facility] L3
[2022-06-21 07:50] VITALS: BP 102/67; PULSE 51; RESP 16; TEMP 36.5; O2SAT 99
--- NOTE | 2022-06-21 08:15 | CON.PCM_ITS ---
Assessment & Plan Assessment/Plan (1) Ascites: PLAN: The differential diagnosis ascites associated with fever, weight loss and abdominal pain would be peritoneal carcinomatosis secondary to underlying ovarian malignancy, lymphoma, intestinal angina in the setting of a patient with coronary artery disease and underlying nicotine addiction. There was no signs of perforation with diverticular disease. Also the differential diagnosis would be nephrotic syndrome and cardiogenic ascites. Her last echo did not show any significant signs of CHF as a result of her SC and she has no history of proteinuria. I think she should undergo diagnostic paracentesis. We will await tumor markers and cytology from the ascitic fluid. (2) Abdominal pain: PLAN: With her symptoms she may need a colonoscopy and upper endoscopy. However we will see what the following work-up shows. HPI Consult Data Date of Consult: 06/21/22 HPI Narrative Reason for Consultation: abdominal pain HPI Narrative: EVELYN HARVEY, is a 56 F who presented with abdominal pain. She says that abdominal pain going on probably for the last 6 months. She did suffer a tragic loss of her about a year and a half ago. 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 Approximately 6 months ago she started having some intermittent abdominal pain associated with a distended abdomen. Initially she thought it was associated with food but this progressed to worsening abdominal pain associated with cramping in the periumbilical region. About 4 months ago she began having drenching night sweats with worsening abdominal distention. Initially she did have some abdominal pain associated with diarrhea approximately 6 months ago. As of diarrhea went away she developed worsening abdominal pain. She has no history of ovarian cyst. She does have a positive family history of ovarian cancer in her grandmother. She has never had a colonoscopy. She says she had normal Cologuard in the past. She has lost approximately 11 pounds in the last month. Her appetite is about the same. She was first evaluated at [facility] in August [address] elevated myocardial infarction.? She underwent a heart catheterization on 09/13/2021 that showed single-vessel coronary artery disease and an ejection fraction of 60% with inferoapical hypokinesis.? She underwent drug-eluting stent to mid RCA.? She currently Plavix 75 mg a day. She also has a past medical history of nicotine addiction without a previous diagnosis of COPD. She had an ultrasound of the abdomen and was told that she possibly had a cystic structure near her pancreas. This prompted a CT scan abdomen pelvis which had showed mild to moderate amount of ascites. She has no history of cirrhosis, C HF, nephrotic syndrome, intra-abdominal or intraperitoneal malignancy. She has had normal mammograms in the past and normal pelvic exams along with Pap smears. She had an MRI of the abdomen with contrast and revealed 2 nonenhancing focal collections in the left lower quadrant with a differential diagnosis including enteric versus duplication cyst versus pancreatic pseudocyst and a moderate amount of ascites from unknown cause. I requested that she undergo diagnostic paracentesis and possible sampling of the fluid collections. Also requested treated tumor markers drawn. PFSH Medical History Acute ST elevation myocardial infarction (STEMI) Anxiety Atherosclerotic heart disease of [place] coronary artery without angina pectoris COVID-19 (09/04/21) Depression Heart attack HLD (hyperlipidemia) Hx of blood clots Post-menopausal Smoker Syncope Tobacco use Home Medications clopidogrel 75 mg tablet (Plavix) 75 mg PO QDAY #93 tabs 04/11/22 [Rx Last Taken Unknown] nicotine 7 mg/24 hr daily transdermal patch (Nicoderm CQ) 1 patch transdermal Q24H smoking 05/19/22 [History Last Taken Unknown] dicyclomine 20 mg tablet 20 mg PO TID PRN abdominal discomfort #30 tabs 06/13/22 [Rx Last Taken Unknown] famotidine 20 mg tablet (Pepcid) 20 mg PO BID #30 tabs 06/13/22 [Rx Last Taken Unknown] ezetimibe 10 mg tablet (Zetia) 10 mg PO DAILY 06/20/22 [History Last Taken Unknown] Allergy/AdvReac Type Severity Reaction Status Date / Time sulfamethoxazole Allergy Hives Verified 06/20/22 17:02 [From Bactrim] trimethoprim [From Bactrim] Allergy Hives Verified 06/20/22 17:02 atorvastatin AdvReac Severe Several Verified 06/20/22 17:02 UTI's, diarrhea, poor appetite metoprolol AdvReac Severe Severe Verified 06/20/22 17:02 diarrhea and fatigue Family History Grandmother Cancer Ovarian Grandfather Cancer Lung Heart disease Mother Thyroid disorder Sister Thyroid disorder Sister Thyroid disorder Sister Thyroid disorder Colon cancer Father Hypertension Heart disease Surgical History (Updated 06/20/22 @ 19:49 by Leonie Barnes) H/O cardiac catheterization History of coronary artery stent placement (09/13/21) History of elbow surgery History of heart artery stent History of tubal ligation S/P tubal ligation Social History (Updated 06/20/22 @ 19:[address] Onelia Dee MD) household members: none Smoking Status: Light Smoker (<10/day) quit status: considering quitting alcohol intake: current alcohol intake frequency: holidays/special occasions only details: rarely substance use type: does not use caffeine: No ROS ROS Narrative Admission Review of Systems: CONSTITUTIONAL: + weight loss, night sweats, weakness or fatigue. No fever, chills. HEENT: Eyes: No visual loss, blurred vision, double vision or yellow sclerae. Ears, Nose, Throat: No hearing loss, sneezing, congestion, runny nose or sore throat. SKIN: No rash or itching, lesions, wounds. CARDIOVASCULAR: No chest pain, chest pressure or chest discomfort, palpitations, edema, orthopnea, syncopal events. RESPIRATORY: No shortness of breath, cough or sputum, wheezing, hemoptysis. GASTROINTESTINAL: + anorexia, nausea, abdominal pain, transient remote diarrhea which resolved, No vomiting, melena, BRBPR. GENITOURINARY: No dysuria, frequency, urgency or retention. NEUROLOGICAL: No headache, dizziness, syncope, paralysis, ataxia, numbness or tingling in the extremities, focal weakness, change in bowel or bladder control, seizure. MUSCULOSKELETAL: No muscle, back pain, joint pain or stiffness. HEMATOLOGIC: No anemia, bleeding or bruising. LYMPHATICS: No enlarged nodes. No history of splenectomy. PSYCHIATRIC: No history of depression or anxiety. ENDOCRINOLOGIC: + reports of sweating. No cold or heat intolerance. No polyuria or polydipsia. ALLERGIES:+ history of hives. Physical Exam Narrative Physical Examination: General: Awake, alert, oriented x 3 and cooperative, seated upright in the ED b ed, fatigued, uncomfortable appearing. Skin: Normal color, normal turgor, no icterus, no cyanosis. HEENT: AT/NC, EOMI, PERRLA, dry MM, no carotid bruits or JVD noted. Lungs: Mildly diminished, greater bases, appropriate effort, no rales, ronchi or wheezing. Heart: Mildly tachycardic with regular rhythm; no gallop, rub audible. Abdomen: Soft, discomfort to bilateral lower quadrant palpation as well as periumbilical Extremities: No cyanosis, clubbing, or edema. Neurological: Patient awake, alert, oriented as noted, cognitive function intact; pupils equally reactive to light and accommodation, cranial nerves grossly normal, moving all 4 extremities, no focal deficits, strength mildly to moderately glued Sarah secondary to acute complaints Psychiatric: Normal affect. Lab / Micro Data Result Diagrams: 06/21/22 04:55 06/21/22 04:55 Labs: Laboratory Results - last 24 hr 06/20/22 18:05: WBC 5.9, RBC 4.97, Hgb 13.7, Hct 41.7, MCV 83.9, MCH 27.6, MCHC 32.9, RDW Std Deviation 41.9, RDW Coeff of Nicholas 13.7, Plt Count 302, MPV 9.8, Immature Gran % (Auto) 0.200, Neut % (Auto) 62.7, Lymph % (Auto) 25.3, [place] % (Auto) 8.9, Eos % (Auto) 2.2, Baso % (Auto) 0.7, Absolute Neuts (auto) 3.7, Absolute Lymphs (auto) 1.48, Nucleated RBC % 0, ESR 19 06/20/22 18:05: Sodium 139, Potassium 3.7, Chloride 107, Carbon Dioxide 27.0, Anion Gap 5, BUN 15, Creatinine 1.23 H, Estim Creat Clear Calc 42.73, Est GFR (MDRD) Af Amer 58 L, Est GFR (MDRD) Non-Af 48 L, BUN/Creatinine Ratio 12.2, Glucose 109 H, Calcium 9.1, Total Bilirubin 0.20, Direct Bilirubin 0.07, AST 19, ALT 27, Alkaline Phosphatase 77, Lactate Dehydrogenase 140, C-React Prot Ext Range 12.40 H, Total Protein 7.1, Albumin 3.4, Globulin 3.7, Amylase 49, Lipase 152 06/20/22 18:20: PT 13.1, INR 1.0, APTT 25.2 06/21/22 04:55: WBC 5.9, RBC 4.68, Hgb 13.1, Hct 39.8, MCV 85.0, MCH 28.0, MCHC 32.9, RDW Std Deviation 42.5, RDW Coeff of Nicholas 13.7, Plt Count 289, MPV 10.2, Immature Gran % (Auto) 0.200, Neut % (Auto) 52.9, Lymph % (Auto) 33.0, [place] % (Auto) 9.3, Eos % (Auto) 3.6, Baso % (Auto) 1.0, Absolute Neuts (auto) 3.1, Absolute Lymphs (auto) 1.95, Nucleated RBC % 0 06/21/22 04:55: Sodium 141, Potassium 3.8, Chloride 108 H, Carbon Dioxide 26.0, Anion Gap 7, BUN 13, Creatinine 1.00, Estim Creat Clear Calc 52.76, Est GFR (MDRD) Af Amer 74, Est GFR (MDRD) Non-Af 61, BUN/Creatinine Ratio 13.0, Glucose 128 H, Calcium 8.1 L, Total Bilirubin 0.20, AST 18, ALT 21, Alkaline Phosphatase 69, Total Protein 6.3 L, Albumin 2.8 L, Globulin 3.5, Albumin/Globulin Ratio 0.8 L Radiology Impression Chest X-Ray 06/20/22 18:03 IMPRESSION: No acute cardiopulmonary disease or major interval change. Electronically Signed: Alessandro Brown DO at 20:07 EDT Reading Location ID and State: [facility] / [place] Tel [phone], Service support , Charges/Coding Visit Charges Inpatient E&M: 34875 Init Hosp L2
[2022-06-21 08:33] VITALS: O2SAT 96
--- NOTE | 2022-06-21 08:39 | US_ITS ---
PROCEDURE: ULTRASOUND GUIDED PARACENTESIS CLINICAL HISTORY: Female, 56 years old. ASCITES CONSENT: The risks, benefits and alternatives to the procedure were explained to the patient, and the patient agreed to the procedure and signed the consent. 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 PROCEDURE/TECHNIQUE: The risks, benefits, and alternatives to the procedure were explained to patient, and the patient agreed to the procedure and signed a consent form for the procedure. TECHNIQUE: Under the ultrasound guidance using sterile technique and after infiltration of the skin and subcutaneous soft tissues with 10 mL of lidocaine 1% a 5 Portuguese drainage catheter is introduced in the lower part of the abdomen. 100 mL of fluid were removed sample sent to lab for evaluation. The patient tolerated the procedure there was no immediate complication. FINDINGS: FLUID PRE-PROCEDURE There is posterior enhancement. The findings appear anechoic. There is no loculation. FLUID POST-PROCEDURE Amount of fluid drained: 100 ml. US/Paracentesis with US IMPRESSION: Successful ultrasound-guided paracentesis. Electronically Signed: Jaleesa Stearns MD at 16:18 EDT ,
[2022-06-21 09:06] LABS: Bilirubin, Direct 0.09 mg/dL (0.00-0.30)
[2022-06-21] MEDS: Ezetimibe 10 MG Tablet PO (09:58)
[2022-06-21] MEDS: Famotidine 20 MG Tablet PO (09:58)
--- NOTE | 2022-06-21 11:25 | CASEMGMT ---
SHELLY STILES Assessment: Face to Face with pt for initial transition planning/care coordination assessment. RN LINSEY introduced self and role at [facility], pt voices understanding and consents to assessment. Pt is A/O x4 and answers all questions appropriately at this time. Pt lying in bed in no distress. Care providers, pharmacy, and demographics verified/updated. Admitting Dx: abdominal pain, ascites PCP:Kimberlyn Specialists:Floyd cardio Preferred Pharmacy: [facility] Insurance: MMO Prescription Benefit: yes LW/HPOA: Pt denies having a LW/DPOA and denies need for info regarding AD. LNOK: [facility]; Sugey Murray dtr Living Arrangements: Pt lives alone in a townhouse that is three stories with two steps to enter into the home. Pt reports she is I in ADL's and denies concerns at home. Transportation: Pt drives self and denies concerns with transportation. DME/HHC/SNF: Pt denies having any DME in the home, prior HHC or SNF stays. Pt states no concerns with going home at time of dc. Pt states no further concerns/needs. CM to follow. Advised pt to ask CM if any further question/concerns/needs arise, voices understanding. Pt Goal: Home Plan: Home, referral to patient link. Discussed with Gerhard.
[2022-06-21] MEDS: Ensure Plus High Protein 120 ML LIQUID PO ×2 (13:44→17:24)
[2022-06-21 13:50] VITALS: BP 108/62; PULSE 62; RESP 18; TEMP 36.6; O2SAT 98
[2022-06-21 15:01] VITALS: BP 110/66; PULSE 73; RESP 18; TEMP 36.7; O2SAT 98
[2022-06-21] MEDS: Lidocaine 2% (10 ml mdv) 10 ML Vial INFILT (15:05)
[2022-06-21 16:01] LABS: Body Fluid Mononuclear WBC # 1.972 10^3/uL; Body Fluid Mononuclear WBC % 32.2 %; Body Fluid Polynuclear WBC # 4.154 10^3/uL; Body Fluid Polynuclear WBC % 67.8 %; Body Fluid Total Cells Counted 6.386 10^3/ul; Red Cell Count/Body Fluid 0.007 10^6/ul; White Blood Count/Body Fluid 6.126 10^3/uL
[2022-06-21 16:27] LABS: Auto B Fluid Analyzer BKGD Ct COUNTS W/IN LIMITS (W/IN LIMITS)
[2022-06-21 16:28] LABS: Appearance/Body Fluid CLOUDY; Color/Body Fluid YELLOW; Source- Body Fluid ASCITES FLUID
[2022-06-21 17:50] LABS: Lymphocytes 5 %; Macrophages 22 %; Monocytes 11 %; Neutrophil (Segs) 52 %
[2022-06-21 17:51] LABS: Body Fluid QC Type(s) BF2Q; Other Cell Type/BF 10 %
[2022-06-21 19:45] VITALS: BP 99/64; PULSE 79; RESP 16; TEMP 36.8; O2SAT 99
[2022-06-21 20:15] LABS: Glucose, Body Fluid 119 mg/dL (40-70); LDH,Body Fluid 700 Units/l (Not Establ.); Protein, Body Fluid 4.6 g/dL (Not Establ.)
[2022-06-21] MEDS: Ondansetron 4 MG/2 ML Vial IV (22:26)
[2022-06-22 02:45] VITALS: BP 101/72; PULSE 64; RESP 14; TEMP 36.9; O2SAT 98
[2022-06-22 07:58] VITALS: O2SAT 98
[2022-06-22 08:13] VITALS: BP 104/71; PULSE 65; RESP 16; TEMP 36.6; O2SAT 98
[2022-06-22 08:31] LABS: Carbohydrate AG 19-9 6 U/mL (0-35); Carcinoembryonic Antigen 2.3 ng/mL (0.0-4.7)
[2022-06-22] MEDS: Famotidine 20 MG Tablet PO (09:10)
[2022-06-22] MEDS: Ezetimibe 10 MG Tablet PO (09:10)
--- NOTE | 2022-06-22 11:21 | NURSING ---
pt upset that no dr has talked to her about results and that she does not know the plan. pt may leave ama if she does not get answers. dr friend notified. and will see pt at 1300 today. told pt this and pt satisfied with answers.
[2022-06-22 11:29] VITALS: BP 123/71; PULSE 68; RESP 16; TEMP 36.8; O2SAT 99
--- NOTE | 2022-06-22 11:35 | US_ITS ---
STUDY: COMPLETE NON-OBSTETRICAL PELVIC ULTRASOUND EXAMINATION OF 1445 HOURS ON 06/22/2022 REASON FOR EXAM: 56 year-old female with suspected pelvic or ovarian mass. Elevated CA-125. TECHNIQUE: Transvaginal pelvic ultrasound examination was performed per protocol. TECHNICAL QUALITY: Adequate. COMPARISON: None. FINDINGS: There is an anteverted uterus measuring 7.2 cm in length by 2.3 cm AP by 2.5 cm in transverse diameter. This endometrial thickness of 3 mm. The endometrium is mildly hyperechoic. There is no evidence of uterine cystic or solid mass lesions. The cervix has a normal appearance. There is a mildly lobulated appearance to the right ovary. But, it is of normal size measuring 3.5 cm x 2.1 cm x 2.4 cm. There is no evidence of right ovarian cystic or solid mass lesions. The left ovary is not visualized. There is a large amount of fluid or ascites in the cul-de-sac. There is no demonstration of adnexal masses or peritoneal implants. US/Transvaginal Non- IMPRESSION: 1. Normal-size anteverted uterus with a hyperechoic 3 mm thick endometrium. 2. No evidence of uterine cyst or solid mass lesions. 3. Normal cervix. 4. Mildly lobulated right ovary measuring 3.5 cm to 2.7 x 2.4 cm without distinct cystic or solid lesions. 5. Left ovary is not visualized. 6. Large amount of fluid or ascites in the cul-de-sac. 7. No evidence of adnexal masses or peritoneal implants. Electronically Signed: Collin Hoyt MD at 16:07 EDT ,
[2022-06-22] MEDS: Ondansetron 4 MG/2 ML Vial IV (12:51)
[2022-06-22] MEDS: oxyCODONE 5 MG Tablet PO (12:51)
--- NOTE | 2022-06-22 13:18 | NURSING ---
pt and daughter upset that hospital is not doing more to help diagnose the pt. pt daughter also stated that pt has been in pain and no one is giving her pain medication. explained that pt has morphine, oxyir, and zofran ordered, but pt has refused multiple times today to take anything for pain. offered to call dr to get another pain medication ordered, but pt would have to be willing to take the medication. declined to have dr called. daughter also stated that we are not doing anything for her nutrition. explained to her that ensure has been ordered but pt has been refusing this. daughter has many questions about care for pt, explained that the questions she is asking are not something that nursing can answer. that dr friend will be in to talk with them here shortly.
[2022-06-22 15:26] VITALS: BP 106/61; PULSE 61; RESP 16; TEMP 36.9; O2SAT 98
--- NOTE | 2022-06-22 15:49 | PCM.PN.HOSP ---
Subjective Subjective Follow-up for abdominal pain, elevated CA125, ascites and fluid collection The patient still has pain, dull aching in the upper abdomen 2-01/23 but but she is frustrated that she is not able to sleep or relax and does not have diagnosis clarity. I told her Ca1 2 5 is elevated but this is nonspecific until we have more diagnostic work-up. Objective Data Objective Data Vital Signs: Vital Signs Temp Pulse Resp BP Pulse Ox O2 Del Method 98.4 F 61 16 106/61 98 Room Air 06/22/22 15:26 06/22/22 15:26 06/22/22 15:26 06/22/22 15:26 06/22/22 15:06/22/22 15:26 Oxygen Delivery Method [1 ( Room Air Initial Baseline)] Oxygen Delivery Method Room Air Weight: 116 lb 2.938 oz Body Mass Index (BMI) 18.3 Intake & Output: Intake and Output for Last 24 Hours 06/20/22 06/21/22 06/22/22 23:59 23:59 23:59 Intake Total 1000 / 1350 350 / 350 Output Total 100 / 100 Balance 900 / 1250 350 / 350 Lab / Micro Data Result Diagrams: 06/21/22 04:55 06/21/22 04:55 Labs: Laboratory Results - last 24 hr 06/20/22 18:05: Carcinoembryonic Ag 2.3, CA 19-9 Antigen 6, CA 125 Antigen 339.0 H 06/21/22 15:08: Fluid Glucose 119 H, Fluid Total Protein 4.6, Fluid LDH 700 06/21/22 15:08: Fluid Source ASCITES FLUID, Fluid Color YELLOW, Fluid Appearance CLOUDY, Fluid WBC 6.126, Fluid RBC 0.007, Fluid Tot Cell Count 6.386 H, Fld Polynuclear WBCs # 4.154, Fld Polynuclear WBCs % 67.8, Fluid Mononuclear WBCs 1.972, Fld Mononuclear WBCs % 32.2, Fluid Neutrophils 52, Fluid Lymphocytes 5, Fluid Monocytes 11, Fluid Macrophages 22, Fluid Other Cells 10, Fl Pathologist Comment May follow, Fluid Comment 2 SEE COMMENT Radiography Diagnostic Testing: Radiology Impression Paracentesis Ultrasound 06/21/22 08:39 IMPRESSION: Successful ultrasound-guided paracentesis. Electronically Signed: Jaleesa Stearns MD at 16:18 EDT , Physical Exam Narrative Physical exam General: Alert, Oriented x3, Cooperative HEENT: Atraumatic, PERRLA, EOMI, Normocephalic Oral: No Gingival or Mucosal Lesions/ Ulcerations Neck: Supple, No JVD, Negative Carotid Bruits Lungs: Air entry diminished in bilateral lung bases. No crepitation/rhonchi Cardiovascular: Regular rate, Regular Rhythm, Normal S1, Normal S2, No murmurs Abdomen: Mild tenderness over upper abdomen, RUQ and LUQ. Bowel Sounds Present, Soft, status post paracentesis, mild ascites. : No renal angle tenderness. No suprapubic tenderness. Extremities: No edema, Capillary Refill Less than 3 Seconds Skin: No rashes, No breakdown Musculoskeletal: No Tenderness to Palpation of Joints or Extremities Neurological: Cranial nerves II-XII grossly intact, DTR 2+/4 and Symmetrical, Neuro grossly intact Psych/Mental Status: Flat affect. Assessment & Plan Assessment/Plan (1) Abdominal pain: PLAN: Plan The patient is a 56 y/o F admitted with abdominal pain for more than 2 months with no relief. On 06/13, CT abdomen and pelvis and MRI on 06/17 reported moderate volume ascites and 2 thin-walled well-defined fluid collection without enhancement (1.2 x 0.8), (3.6 x 2.7 cm) in the LLQ. #1. Intractable abdominal pain with moderate volume ascites of unclear etiology with additionally 2 nonenhancing fluid focal collections in the left lower abdominal quadrant: CEA CA 19-9 and CA125 are pending. Surgery team and interventional radiology called. Plan to obtain fluid collection from 3.7 x 2 point centimeter collection. 06/21: Was measured left to interventional radiologist, Dr. Krause. Tumor markers are pending. ESR 19, CRP 12. Program[employer] It consulted. Recommended diagnostic paracentesis which is already ordered. She might need colonoscopy and upper endoscopy, pending further work-up. 06/22: Discussed with interventional radiologist. Patient had no loculation. 100 mL of acetic fluid drained. As per Dr. Britton he reviewed previous CT abdomen and MRI abdomen and did not find anything drainable on the cyst. Subsequently, I discussed with Dr. Rajput regarding elevated CA125 and client service consultant, Dr. Cruz and agreed on transvaginal ultrasound seeing the location of fluid collection in left lower quadrant. Elevated CA125 may be elevated in multiple benign and malignant conditions including liver, gallbladder, pancreas, lung and colon cancer, breast and ascites itself and therefore not diagnostic #2. Mild renal insufficency: Secondary to admitted recent poor oral intake secondary to pain, admission BUN/Cr 15/1.23, prior baseline creatinine noted to be primarily 0.8?1.0. Does not meet criteria of acute kidney injury. #3. CAD status post STEMI: Patient with mid RCA PCI 08/2021 with STEMI presentation, discussed with cardiology and hold Plavix for procedure. Statin intolerance was noted and metoprolol intolerance with severe diarrhea and fatigue. Initially patient was on Brilinta which was changed to Plavix because of increased bleeding issues. #4. Hypertension: Previously had been initiated on metoprolol however she had significant side effects and this was discontinued, currently per cardiology not on regimen as BP had been normal in the office, will continue to closely monitor and add regimen if appropriate, as needed IV hydralazine in interim. #5. Hyperlipidemia: continue patient home Zetia regimen, statin intolerance history. #6. History of VTE: Continue SCDs, not on any chronic anticoagulation currently, remote. #7. Tobacco Abuse: Encouraged cessation, inpatient consultation per RT, patient is now down to 1 cigarette to maximum 2 cigarettes daily but has not even had a cigarette for the last 1 to 2 weeks. #8. GERD: We will maintain on famotidine. #9. DVT prophylaxis: SCDs, hold chemoprophylaxis for possible intervention although do suspect that likely given Plavix intake 06/20/2020 2 AM the paracentesis will be deferred. Total time of the visit including total time spent in counseling or coordination of care, (more than 50% of the total time, spent in obtaining medical information from nurses and other ancillary care providers,explaining to the patient about labs, imaging, diagnosis and management of active complex medical conditions), discussion with the stock clerk self service store, client service consultant and interventional radiologist, review of labs and imaging is 40 minutes. Charges/Coding Visit Charges Inpatient E&M: 79991 Subs Hosp L3
--- NOTE | 2022-06-22 19:26 | EX.PCM.CONOB ---
Assessment & Plan (1) Shortness of breath: (2) Abdominal pain: (3) Elevated CA-125: PLAN: Plan Strong possibility of ovarian cancer based on ascites, irregularly shaped right ovary on ultrasound and rising ca-125 along with family history of ovarian cancer -pt had an NE in Aug 2021 with stent placement and is on plavix. We discussed that Dr. Hyatt will need her to hold this medication prior to any exploratory surgery that may take place but for now since there is not a definitive plan for surgery she will stay on this -I have discussed her case with Dr. Addy Hyatt at [facility] who has agreed to see her tomorrow. The patient has gone to [facility] in the past but she is requesting a second opinion at [facility] when I also gave the option for her to see her [facility] providers. - Dr. Lugo, covering hospitalist, was notified that the patient would like to be discharged to home to prepare for her appt tomorrow with Dr. Hyatt and she declines to discharge her at this time. She prefers that the primary provider discharge her at 7 am. -Ascites fluid pathology is pending and will fax results to the CONSULTING SERVICES MANAGER oncologist as they return. HPI Consult Data Date of Consult: 06/22/22 HPI Narrative Reason for Consultation: ascites and elevated CA-125 HPI Narrative: EVELYN HARVEY, is a 56 y/o who presents with vague complaints of indigestion and diffuse abdominal pain. upon admission She was found to have ascites and an elevated Ca-125 level in the 300 range. She states that the pain and vague symptoms of diarrhea, abdominal pain and night sweats started over 2 months ago. She states that she talked to her PCp and her oncology technician and neither believed that she had any significant concerns at the time. She reports to me that she sees an VIRTUAL CUSTOMER ASSISTANT at [facility] and she has been doing yearly ca-125 levels on her because her grandmother of ovarian cancer. She shows me a report from February 2021 of a ca-125 level of 38. She states that menopause started at age 47. She has a history of bilateral tubal ligation and 3 vaginal deliveries. PFSH Medical History Acute ST elevation myocardial infarction (STEMI) Anxiety Atherosclerotic heart disease of [place] coronary artery without angina pectoris COVID-19 (09/04/21) Depression Heart attack HLD (hyperlipidemia) Hx of blood clots Post-menopausal Smoker Syncope Tobacco use Home Medications clopidogrel 75 mg tablet (Plavix) 75 mg PO QDAY #93 tabs 04/11/22 [Rx Last Taken Unknown] nicotine 7 mg/24 hr daily transdermal patch (Nicoderm CQ) 1 patch transdermal Q24H smoking 05/19/22 [History Last Taken Unknown] dicyclomine 20 mg tablet 20 mg PO TID PRN abdominal discomfort #30 tabs 06/13/22 [Rx Last Taken Unknown] famotidine 20 mg tablet (Pepcid) 20 mg PO BID #30 tabs 06/13/22 [Rx Last Taken Unknown] ezetimibe 10 mg tablet (Zetia) 10 mg PO DAILY 06/20/22 [History Last Taken Unknown] Allergy/AdvReac Type Severity Reaction Status Date / Time sulfamethoxazole Allergy Hives Verified 06/20/22 17:02 [From Bactrim] trimethoprim [From Bactrim] Allergy Hives Verified 06/20/22 17:02 atorvastatin AdvReac Severe Several Verified 06/20/22 17:02 UTI's, diarrhea, poor appetite metoprolol AdvReac Severe Severe Verified 06/20/22 17:02 diarrhea and fatigue Family History Grandmother Cancer Ovarian Grandfather Cancer Lung Heart disease Mother Thyroid disorder Sister Thyroid disorder Sister Thyroid disorder Sister Thyroid disorder Colon cancer Father Hypertension Heart disease Surgical History H/O cardiac catheterization History of coronary artery stent placement (09/13/21) History of elbow surgery History of heart artery stent History of tubal ligation S/P tubal ligation Social History household members: none Smoking Status: Light Smoker (<10/day) quit status: considering quitting alcohol intake: current alcohol intake frequency: holidays/special occasions only details: rarely substance use type: does not use caffeine: No Vital Signs Vital Signs Vital Signs: 06/21/22 19:45 06/21/22 19:45 06/22/22 02:45 Temperature 98.2 F 98.5 F Temperature Source Oral Oral Pulse Rate 79 64 Pulse Strength Respiratory Rate 16 14 Respiratory Effort Normal Respiratory Depth Normal Respiratory Pattern Normal Blood Pressure 99/64 101/72 Blood Pressure Mean 75 81 Blood Pressure Source Monitor Monitor Blood Pressure Position Semi-Fowlers Semi-Fowlers Blood Pressure Location Right Arm Right Arm Pulse Ox 99 98 Oxygen Delivery Method Room Air Room Air Room Air 06/22/22 07:58 06/22/22 08:13 06/22/22 08:13 Temperature 98 F Temperature Source Oral Pulse Rate 65 Pulse Strength Respiratory Rate 16 Respiratory Effort Normal Respiratory Depth Normal Respiratory Pattern Normal Blood Pressure 104/71 Blood Pressure Mean 82 Blood Pressure Source Monitor Blood Pressure Position Semi-Fowlers Blood Pressure Location Right Arm Pulse Ox 98 98 Oxygen Delivery Method Room Air Room Air Room Air 06/22/22 08:13 06/22/22 11:29 06/22/22 15:02 Temperature 98.2 F Temperature Source Oral Pulse Rate 68 Pulse Strength Normal (2+) Respiratory Rate 16 Respiratory Effort Normal Respiratory Depth Normal Respiratory Pattern Normal Blood Pressure 123/71 H Blood Pressure Mean 88 Blood Pressure Source Monitor Blood Pressure Position Semi-Fowlers Blood Pressure Location Right Arm Pulse Ox 99 Oxygen Delivery Method Room Air Room Air 06/22/22 15:26 Temperature 98.4 F Temperature Source Oral Pulse Rate 61 Pulse Strength Respiratory Rate 16 Respiratory Effort Respiratory Depth Respiratory Pattern Blood Pressure 106/61 Blood Pressure Mean 76 Blood Pressure Source Manual Blood Pressure Position Semi-Fowlers Blood Pressure Location Right Arm Pulse Ox 98 Oxygen Delivery Method Room Air Weight Weight: 116 lb 2.938 oz Body Mass Index (BMI) 18.3 ROS Constitutional Constitutional: Denies change in weight, chills, fatigue, fever(s), headache(s), poor appetite or weakness Eyes Eyes: Denies blurry vision, change in vision, seeing flashes or spots in vision ENT HEENT: Denies dizziness, headache(s), loss taste/smell or sore throat Cardiovascular Cardiovascular: Denies chest pain, dizziness, dyspnea, irregular heart rhythm, leg edema, palpitations, rapid heart rate or vomiting Respiratory/Chest Respiratory/Chest: Denies chest tightness, cough, dyspnea or breast pain Gastrointestinal Gastrointestinal: Reports as per HPI, abdominal pain, anorexia, diarrhea, early satiety and nausea; Denies constipation, cramping, hemorrhoids or vomiting Genitourinary Genitourinary: Denies dysuria, flank pain, genital lesions, genital pain, urinary frequency or urinary urgency Musculoskeletal Musculoskeletal: Denies back pain, difficulty walking, joint pain, limited range of motion, muscle cramps or numbness Integumentary Integumentary: Denies lesions or unusual bruising Neurologic Neurologic: Denies abnormal movements, abnormal speech, dizziness, numbness, seizure-like activity or syncope Psychiatric Psychiatric: Denies anxiety, behavioral changes, change in appetite, change in libido, cognitive impairment, confusion, depression, difficulty concentrating, hallucinations or suicidal thoughts Endocrine Endocrinology: Denies excessive sweating, polydipsia or polyuria Hematologic/Lymphatic Hematologic/Lymphatic: Denies easy bleeding, easy bruising or lymphadenopathy Allergic/Immunologic Allergic/Immunologic: Denies itchy eyes, lip swelling, seasonal rhinorrhea, rhinitis, throat swelling, tongue swelling, eczemia, wheezing or asthma Physical Exam Const alert, oriented x3 and no apparent distress HEENT normocephalic Neck full ROM and no lymphadenopathy Chest inspection of chest normal Resp normal respiratory effort Cardio regular rate and regular rhythm GI Inspection: abdominal distention Auscultation: normoactive bowel sounds Palpation: tender, guarding and no hepatosplenomegaly; Negative for rigid Back/Spine no CVA tenderness Extremity normal to inspection and no pedal edema Lab / Micro Data Result Diagrams: 06/21/22 04:55 06/21/22 04:55 Labs: Laboratory Results - last 24 hr 06/20/22 18:05: Carcinoembryonic Ag 2.3, CA 19-9 Antigen 6, CA 125 Antigen 339.0 H 06/21/22 15:08: Fluid Glucose 119 H, Fluid Total Protein 4.6, Fluid LDH 700 Radiology Impression Transvaginal US 06/22/22 11:35 IMPRESSION: 1. Normal-size anteverted uterus with a hyperechoic 3 mm thick endometrium. 2. No evidence of uterine cyst or solid mass lesions. 3. Normal cervix. 4. Mildly lobulated right ovary measuring 3.5 cm to 2.7 x 2.4 cm without distinct cystic or solid lesions. 5. Left ovary is not visualized. 6. Large amount of fluid or ascites in the cul-de-sac. 7. No evidence of adnexal masses or peritoneal implants. Electronically Signed: Collin Hoyt MD at 16:07 EDT , Charges/Coding Multi Select Codes Visit Charges Office Visit/Consults: 21541 IP Consult L4
--- NOTE | 2022-06-22 20:15 | NURSING ---
Patient discussed concern with wanting to be discharged. This RN discussed patients options of signing an AMA form stating, if you would like to leave we do not have discharge orders from the doctor so you could sign the AMA forms and leave the hospital on your own discretion. Patient verbalized she was not going to sign the form and be stuck with the hospital bill because insurance will not cover my hospital stay if I sign the form of leaving against medical advice. This RN stated, I am unsure about insurance and how the hospital sends out billing but if you want to leave you are welcome to sign the paper and leave. Patient refused to sign the paper and walked out of the hospital. Dr. Lugo was notified patient left AMA.
--- NOTE | 2022-06-23 07:13 | DS.PCM_ITS ---
Providers Date of Admission: 06/20/22 Date of Discharge: 06/22/22 Primary Care Physician: Dr. Willi Sofia MD Consultations 06/20/22 19:30 Consult: Gastroenterology Routine Consulting Provider: [facility] Reason for Consult: Abdominal pain, abdominal ascites, collection x 2. EMERGENT Consult: No Notified: Yes Date Notified: 06/20/22 Time Notified: 18:53 Method of Notification: called Consult: Interventional Radiology Routine Consulting Provider: Isidoro Romero Reason for Consult: Ascites/2 collections, GI-if possible 3.6 x 2.7 cm fluid and ascites eval EMERGENT Consult: No Notified: Yes Date Notified: 06/21/22 Time Notified: 08:00 Method of Notification: Answering Service Comments:: Lisa Clay aware, Eliecer Emery will be her today 06/21/22 10:09 Consult: Interventional Radiology Routine Consulting Provider: Isidoor Romero Reason for Consult: LLT CYST DRAINAGE EMERGENT Consult: No Notified: Yes Date Notified: 06/21/22 Time Notified: 10:09 Method of Notification: Verbal 06/22/22 12:34 Consult: DIRECTOR OF STUDENT LIFE Routine Consulting Provider: Kiki Chin Reason for Consult: chr abd pain, ca 125 elevated, pelvic mass EMERGENT Consult: No Notified: Yes Date Notified: 06/22/22 Time Notified: 11:30 Method of Notification: Verbal Reason For Visit: ABDOMINAL PAIN ASCITESS Diagnosis Discharge Diagnosis (1) Shortness of breath: Status: Acute Code(s): R06.02 - Shortness of breath (2) Abdominal pain: Status: Acute Code(s): R10.9 - Unspecified abdominal pain (3) Elevated CA-125: Status: Acute Code(s): R97.1 - Elevated cancer antigen 125 [CA 125] Medications at Discharge Home Medications clopidogrel 75 mg tablet (Plavix) 75 mg PO QDAY #93 tabs 04/11/22 nicotine 7 mg/24 hr daily transdermal patch (Nicoderm CQ) 1 patch transdermal Q24H smoking 05/19/22 dicyclomine 20 mg tablet 20 mg PO TID PRN abdominal discomfort #30 tabs 06/13/22 famotidine 20 mg tablet (Pepcid) 20 mg PO BID #30 tabs 06/13/22 ezetimibe 10 mg tablet (Zetia) 10 mg PO DAILY 06/20/22 Hospital Course Summary of Care Provided Hospital Course: The patient is a 56 y/o F admitted with abdominal pain for more than 2 months with no relief. On 06/13, CT abdomen and pelvis and MRI on 06/17 reported moderate volume ascites and 2 thin-walled well-defined fluid collection without enhancement (1.2 x 0.8), (3.6 x 2.7 cm) in the LLQ. #1. Intractable abdominal pain with moderate volume ascites of unclear etiology with additionally 2 nonenhancing fluid focal collections in the left lower abdominal quadrant: CEA CA 19-9 and CA125 are pending. Surgery team and interventional radiology called. Plan to obtain fluid collection from 3.7 x 2 point centimeter collection. 06/21: Was measured left to interventional radiologist, Dr. Krause. Tumor markers are pending. ESR 19, CRP 12. Cold Strip Feeder consulted. Recommended diagnostic paracentesis which is already ordered. She might need colonoscopy and upper endoscopy, pending further work-up. 06/22: Discussed with interventional radiologist. Patient had no loculation. 100 mL of acetic fluid drained. As per Dr. Britton he reviewed previous CT abdomen and MRI abdomen and did not find anything drainable on the cyst. Subsequently, I discussed with Dr. Rajput regarding elevated CA125 and curing oven attendant, Dr. Chin was discussed and consulted. Elevated CA125 may be elevated in multiple benign and malignant conditions including liver, gallbladder, pancreas, lung and colon cancer, breast and ascites itself and therefore not diagnostic. Oil House Attendant was a strong opinion that possibility of ovarian cancer based on ascites irregularly-shaped right ovary on ultrasound and rising CA 125 and family history of ovarian cancer. She called Dr. Addy Helm [facility] and made an appointment for tomorrow. 06/23: I further called senior care assistant and found that she has appointment at 330. I gave the option of discharging cut off sawyer at 7 AM she still has plenty of time to attend appointment but patient did not want to wait and signed AMA #2. Mild renal insufficency: Secondary to admitted recent poor oral intake secondary to pain, admission BUN/Cr 15/1.23, prior baseline creatinine noted to be primarily 0.8?1.0. Does not meet criteria of acute kidney injury. #3. CAD status post STEMI: Patient with mid RCA PCI 08/2021 with STEMI presen tation, discussed with cardiology and hold Plavix for procedure. Statin intolerance was noted and metoprolol intolerance with severe diarrhea and fatigue. Initially patient was on Brilinta which was changed to Plavix because of increased bleeding issues. #4. Hypertension: Previously had been initiated on metoprolol however she had significant side effects and this was discontinued, currently per cardiology not on regimen as BP had been normal in the office, will continue to closely monitor and add regimen if appropriate, as needed IV hydralazine in interim. #5. Hyperlipidemia: continue patient home Zetia regimen, statin intolerance history. #6. History of VTE: Continue SCDs, not on any chronic anticoagulation currently, remote. #7. Tobacco Abuse: Encouraged cessation, inpatient consultation per RT, patient is now down to 1 cigarette to maximum 2 cigarettes daily but has not even had a cigarette for the last 1 to 2 weeks. #8. GERD: We will maintain on famotidine. #9. DVT prophylaxis: SCDs, hold chemoprophylaxis for possible intervention although do suspect that likely given Plavix intake 06/20/2020 2 AM the paracentesis will be deferred. Total time of the visit including total time spent in counseling or coordination of care, (more than 50% of the total time, spent in obtaining medical information from nurses and other ancillary care providers,explaining to the pat ient about labs, imaging, diagnosis and management of active complex medical conditions), discussion with the senior care assistant, curing oven attendant and interventional radiologist, review of labs and imaging is 40 minutes. Physical Exam Narrative Patient was seen and examined on 06/23 on the day of signing AMA. Please see progress note of the same date Weight / BMI Weight Weight: 116 lb 2.938 oz Body Mass Index (BMI) 18.3 ABG / Lab / Microbiology Data Result Diagrams: 06/21/22 04:55 06/21/22 04:55 Laboratory: Laboratory Results - last 24 hr 06/20/22 18:05: Carcinoembryonic Ag 2.3, CA 19-9 Antigen 6, CA 125 Antigen 339.0 H Radiography Diagnostic Testing: Radiology Impression Transvaginal US 06/22/22 11:35 IMPRESSION: 1. Normal-size anteverted uterus with a hyperechoic 3 mm thick endometrium. 2. No evidence of uterine cyst or solid mass lesions. 3. Normal cervix. 4. Mildly lobulated right ovary measuring 3.5 cm to 2.7 x 2.4 cm without distinct cystic or solid lesions. 5. Left ovary is not visualized. 6. Large amount of fluid or ascites in the cul-de-sac. 7. No evidence of adnexal masses or peritoneal implants. Electronically Signed: Collin Hoyt MD at 16:07 EDT , Meaningful Use Info Meaningful Use Diagnoses (Choose all that apply): None applicable Discharge Plan Admission Admit Date/Time: 06/20/22 18:44 Primary Reason for Your Visit: Abdominal pain, hyporexia for variant cancer. Attending Provider: Randy Cooney Primary Care Provider: Willi Sofia Consulting Providers: Onelia Dee ; Isidoro Romero ; Kiki Chin Instructions Patient Instructions: ENDY RN Paracentesis Dc Discharge Orders/Prescriptions Prescriptions: No Action clopidogrel [Plavix] 75 mg tablet 75 mg PO QDAY Qty: 93 3RF Rx Instructions: Day 1: 300mg (4 pills), Day two and forward: 75 mg (1 pill) PO Daily. nicotine [Nicoderm CQ] 7 mg/24 hr patch 24 hour 1 patch transdermal Q24H famotidine [Pepcid] 20 mg tablet 20 mg PO BID Qty: 30 0RF dicyclomine 20 mg tablet 20 mg PO TID PRN (Reason: abdominal discomfort) Qty: 30 0RF ezetimibe [Zetia] 10 mg tablet 10 mg PO DAILY Referrals / Follow Up: Willi Sofia MD [Primary Care Provider] - Disposition Disposition (needs filled in before D/C Order can be placed): Against Medical Advice Charges/Coding Addendum Addendum: please cancel the billing charge of the progress note of 06/23/2022 and will then discharge summary Visit Charges Inpatient E&M: [id number] Disch Hosp
[2022-06-24 09:15] LABS: Pathologist Comment/Body Fluid Reviewed
== END 2022-06-22 20:29 | disposition left against medical advice (07) | DRG 948 ==
LOC: ED 18:02 → MS3 06-21 07:08
PROVIDERS: Admitting Provider Family Medicine; Emergency Provider Emergency Medicine; PCP Family Medicine; Visit Provider Internal Medicine
DX: R18.8 Other ascites (principal); C56.9 Malignant neoplasm of unspecified ovary; E78.5 Hyperlipidemia, unspecified; K21.9 Gastro-esophageal reflux disease without esophagitis; F17.210 Nicotine dependence, cigarettes, uncomplicated; I10 Essential (primary) hypertension; I25.10 Atherosclerotic heart disease of native coronary artery without angina pectoris; I25.2 Old myocardial infarction; Z86.16 Personal history of COVID-19; Z80.0 Family history of malignant neoplasm of digestive organs; Z79.02 Long term (current) use of antithrombotics/antiplatelets; R10.9 Unspecified abdominal pain; Z80.41 Family history of malignant neoplasm of ovary; Z95.5 Presence of coronary angioplasty implant and graft; R97.1 Elevated cancer antigen 125 [CA 125]; N28.9 Disorder of kidney and ureter, unspecified
CPT/HCPCS: 36415; 49083; 71045; 76830; 80048; 80053; 80076; 82150; 82248; 82378; 82945; 83615; 83690; 84157; 85025; 85610; 85652; 85730; 86140; 86301; 86304; 88108; 88305; 88313; 88341; 88342; 89050; 93005; 97802; 99251; 99284; 99406; J7030; A4216; G0463; J2405

== ENCOUNTER → 2022-07-21 | Outpatient (CLI) | payer OTHER, SELFPAY ==
[2022-07-21 09:06] LABS: Absolute Lymphocyte Count 2.38 X10^3/uL (0.83-4.51); Basophil# 0.06 X10^3/uL; Basophil% 0.9 % (0-1); Eosinophils% 1.4 % (0-5); Hematocrit 42.5 % (37-47); Hemoglobin 13.7 g/dL (12.0-15.0); Lymphocyte # 2.38 X10^3/ul (0.83-4.51); Lymphocyte % 33.9 % (19-41); Mean Corp Hgb Conc 32.2 g/dL (32-36); Mean Corpuscular Hgb 27.3 pg (27.0-32.0); Mean Corpuscular Volume 84.8 fL (81-99); Mean Platelet Vol. 9.4 fl (6.2-12.0); Monocyte# 0.46 X10^3/uL; Monocyte% 6.5 % (0-10); NRBC Flagged by Analyzer 0 % (0-5); Neutrophil # 4.02 X10^3/uL (2.7-7.7); Neutrophil % 57.2 % (47-70); Platelet Count 355 K/mm3 (150-450); RBC Distribution Width SD 45.6 fl (35.1-43.9); Red Blood Count 5.01 M/mm3 (4.2-5.4)
[2022-07-21 09:51] LABS: ALB/GLOB Ratio 0.9 RATIO (0.9-2.4); AST(SGOT) 21 U/L (15-37); Alanine Aminotransfer ALT/SGPT 40 U/L (13-56); Albumin, Serum 3.6 g/dL (3.2-5.0); Alkaline Phosphatase 69 U/L (45-117); Anion Gap 7 (5-15); BUN 11 mg/dL (7-18); BUN/Creat Ratio 11.3 RATIO (10-20); Calcium,Total 9.1 mg/dL (8.5-10.1); Chloride 107 mmol/L (98-107); Creatinine, Serum 0.98 mg/dL (0.55-1.02); EST Glomerular Filtration Rate 63 mL/min (>60); Est Glom Filt Rate - Afr Amer 76 mL/min (>60); Globulin 3.8 g/dL (2.2-4.2); Glucose 101 mg/dL (74-106); Potassium 3.9 mmol/L (3.5-5.1); Protein, Total 7.4 g/dL (6.4-8.2); Sodium Level 140 mmol/L (136-145)
== END | disposition home or self-care (01) ==
LOC: LAB 07:59
PROVIDERS: PCP Family Medicine; Referring Provider Obstetrics & Gynecology Gynecologic Oncology; Visit Provider Obstetrics & Gynecology Gynecologic Oncology
DX: C78.6 Secondary malignant neoplasm of retroperitoneum and peritoneum (principal)
CPT/HCPCS: 36415; 80053; 85025; 86304

== ENCOUNTER 2022-07-28 16:50 | Emergency (ER) | payer OTHER, SELFPAY ==
[2022-07-28 16:51] VITALS: BP 138/96; PULSE 121; RESP 18; TEMP 36.9; O2SAT 100; BMI 17.4
--- NOTE | 2022-07-28 17:26 | NURSING ---
Patient refusing iv access at this time. Ok with blood draw. States her veins are bad and she needs them for chemo.
--- NOTE | 2022-07-28 18:05 | CT_ITS ---
STUDY: CTA CHEST REASON FOR EXAM: Female, 56 years old. chest pain RADIATION DOSAGE (If Supplied By Facility): CTDIvol = ( 3.38 ) mGy, DLP = ( 124.59 ) mGycm TECHNIQUE: The examination was performed with the intravenous administration of IV 75mL Isovue-370. Post-processing of the angiographic images was performed, with multiplanar reformation and 3D reconstruction. Individualized dose optimization techniques were used for this CT. COMPARISON: 12/22/2021 FINDINGS: Tubes and lines: 1. No life-support noted. CTA: PULMONARY ARTERIES: There is normal configuration and contrast opacification of pulmonary outflow tract, main pulmonary arteries, segmental and intersegmental pulmonary arteries bilaterally without evidence of intraluminal filling defects. AORTIC ARCH: The aortic arch and descending aorta have normal configuration. No evidence of dissection or aneurysmal dilatation. HEART: Cardiac contour is normal. No evidence pericardial effusion. CT CHEST: LUNGS: [Lungs are hyperexpanded, subpleural bullous disease noted at the lung apices without change. No pneumothorax. No effusion.. No mass. No consolidation. PLEURAL SPACES: Unremarkable, no effusion or pneumothorax.. MEDIASTINUM AND LYMPH NODES: Unremarkable. No significant adenopathy. BONES: Unremarkable ABDOMEN: Within normal limits. Other: None IMPRESSIONS: 1. Stable exam. 2. No CTA evidence of pulmonary embolism. 3. No CTA evidence of aortic aneurysm or dissection 4. Normal CT appearance of the heart and pericardium. 5. Lungs are hyperexpanded, subpleural emphysematous changes at the lung apices. No acute infiltrate noted. Electronically Signed: Flaco Byrd MD at 19:24 EDT , CT/CTA Chest W/WO Contrast IMPRESSION: undefined
--- NOTE | 2022-07-28 18:05 | EKG12_ITS ---
Test Reason : CP Blood Pressure : / mmHG Vent. Rate : 092 BPM Atrial Rate : 092 BPM P-R Int : 110 ms QRS Dur : 088 ms QT Int : 334 ms P-R-T Axes : 085 074 067 degrees QTc Int : 413 ms Sinus rhythm with short UT Right atrial enlargement Borderline ECG Confirmed by SAAD DOWNING, JESSIE ([id number]), news video editor LADY BELTRE ([id number]) on 08/01/2022 9:49:36 A M Referred By: SIERRA Confirmed By:SHRUTHI NASH MD
--- NOTE | 2022-07-28 18:05 | EDS_ITS ---
HPI History of Present Illness Chief Complaint: Chest Pain Narrative Narrative: 56-year-old female presenting with chest pain. Describes it as left lower chest wall aching. Its intermittent. Started yesterday. Patient denies fever, chills, cough. She denies nausea or vomiting. Patient states she recently diagnosed with ovarian cancer and is undergoing chemotherapy treatment. She states he gets his care at [facility]. When she got this first treatment earlier this week she states she had allergic reaction to it. She states she had to go to the ER and get breathing treatments and steroids. She is feeling well from that standpoint. She does not have return of her wheezing. Patient states she called [facility] today with her complaints and was referred to the ER. Patient does have a history of GA with cardiac stents in August of last year. She is supposed to follow-up with Dr. Anthony Schulz in August. She has a history of blood clots as well. She is not anticoagulated [facility] Medical History Abdominal pain Acute ST elevation myocardial infarction (STEMI) Ascites Atherosclerotic heart disease of [place] coronary artery without angina pectoris COVID-19 (09/04/21) Elevated CA-125 Heart attack HLD (hyperlipidemia) Hx of blood clots Ovarian cancer Post-menopausal Smoker Syncope Tobacco use Unexplained weight loss Home Medications clopidogrel 75 mg tablet (Plavix) 75 mg PO QDAY #93 tabs 04/11/22 [Rx Last Taken Unknown] dicyclomine 20 mg tablet 20 mg PO TID PRN abdominal discomfort #30 tabs 06/13/22 [Rx Last Taken Unknown] ezetimibe 10 mg tablet (Zetia) 10 mg PO DAILY 06/20/22 [History Last Taken Unknown] oxycodone 5 mg tablet 5 mg PO Q6H PRN Pain 07/28/22 [History Last Taken Unknown] Allergy/AdvReac Type Severity Reaction Status Date / Time sulfamethoxazole Allergy Hives Verified 07/28/22 16:51 [From Bactrim] trimethoprim [From Bactrim] Allergy Hives Verified 07/28/22 16:51 atorvastatin AdvReac Severe Several Verified 07/28/22 16:51 UTI's, diarrhea, poor appetite metoprolol AdvReac Severe Severe Verified 07/28/22 16:51 diarrhea and fatigue Family History Grandmother Cancer Ovarian Grandfather Cancer Lung Heart disease Mother Thyroid disorder Sister Thyroid disorder Sister Thyroid disorder Sister Thyroid disorder Colon cancer Father Hypertension Heart disease Surgical History H/O cardiac catheterization History of coronary artery stent placement (09/13/21) History of elbow surgery History of heart artery stent S/P tubal ligation Social History household members: none Smoking Status: Former smoker quit status: considering quitting alcohol intake: current alcohol intake frequency: holidays/special occasions only details: rarely substance use type: does not use caffeine: No ROS ROS ED Constitutional Constitutional ED: Denies chills or fever(s) Eyes Eyes: Denies blurry vision ENT ENT ED: Denies rhinorrhea Cardiovascular Cardiovascular: Reports chest pain; Denies palpitations Respiratory/Chest Respiratory/Chest: Denies cough or dyspnea Gastrointestinal Gastrointestinal: Denies abdominal pain or constipation Genitourinary Genitourinary ED: Denies dysuria or hematuria Musculoskeletal Musculoskeletal: Denies arthralgias or back pain Integumentary Denies abscess or Abrasions Neurologic Neurologic: Denies headache(s) or paresthesias Psychiatric Psychiatric: Reports anxiety; Denies depression EXAM Physical Exam Const Vital Signs: 07/28/22 16:51 07/28/22 18:05 07/28/22 21:27 Temperature 98.4 F Temperature Source Temporal Pulse Rate 121 H 79 Respiratory Rate 18 21 H Blood Pressure 138/96 H 127/62 H Blood Pressure Mean 110 83 Pulse Ox 100 96 Oxygen Delivery Method Room Air Room Air Positive well nourished General Appearance ED: NAD; Negative for pallor HEENT Reports moist mucous membranes normocephalic and atraumatic Eyes PERRL and EOMs intact bilaterally General Eye ED: Negative for pale conjunctiva or scleral icterus Resp normal respiratory effort and clear to auscultation bilaterally Auscultation: Negative for rales, rhonchi or wheezes Cardio regular rate and regular rhythm GI normal to inspection, nondistended, normoactive bowel sounds Extremity normal to inspection Neuro oriented x3 and CN's II-XII intact bilaterally Sensorium / Orientation: awake and alert Motor Exam: strength 5/5 throughout Psych mental status grossly normal Skin no rashes or lesions noted General Skin Exam: Negative for jaundice or pallor Heart Score History: Slightly/Non-Suspicious ECG: Normal Age: >45 - <65 years Risk Factors: >/= 3 Risk Factors or History of CAD Troponin: </= Normal Limit Score: 3 MDM MDM MDM Narrative Medical decision making narrative: Patient presenting with chest pain. She states that dull aching and its intermittent. She does not get symptoms of shortness of breath, diaphoresis, lightheadedness with it. EKG sinus rhythm with a ventricular rate of 92 beats minute without sign ischemic change. Patient initially tachycardic so I cannot PERC her. She also has active cancer and she is on chemotherapy. Chest x-ray on my interpretation shows trace no acute cardiopulmonary process and the radiologist read this as trace right pleural effusion patient not requiring any oxygen and she is 100% on room air. Heart rate now 79, respirate 18-21, afebrile. CBC and BMP are unremarkable. High-sensitivity troponin is 4 and delta troponin is 2 therefore there is no significant interval change. Patient had CTA of the chest to rule out PE and this CTA is negative for PE or dissection and there is no acute infiltrate noted. Given patient's ultimately negative work-up I feel she stable for discharge home. Patient counseled to follow-up with her PCP and oncology care providers. Impression: 1. Chest pain 2. Tachycardia resolved Lab Data Attestation: I reviewed the patient's lab results. Labs: Laboratory Results - last 24 hr 07/28/22 07/28/22 07/28/22 18:20 18:20 20:28 WBC 7.6 RBC 4.99 Hgb 14.1 Hct 41.5 MCV 83.2 MCH 28.3 MCHC 34.0 RDW Std Deviation 45.2 H RDW Coeff of Nicholas 15.3 H Plt Count 284 MPV 10.4 Immature Gran % (Auto) 0.100 Neut % (Auto) 61.8 Lymph % (Auto) 34.0 Rowan % (Auto) 1.1 Eos % (Auto) 2.5 Baso % (Auto) 0.5 Absolute Neuts (auto) 4.7 Absolute Lymphs (auto) 2.59 Nucleated RBC % 0 Sodium 139 Potassium 3.7 Chloride 105 Carbon Dioxide 26.0 Anion Gap 8 BUN 13 Creatinine 0.73 Estim Creat Clear Calc 68.40 Est GFR (MDRD) Af Amer 106 Est GFR (MDRD) Non-Af 88 BUN/Creatinine Ratio 17.9 Glucose 106 Calcium 9.5 Troponin I High Sens 4 3 Radiography Diagnostic Testing: Clinical Impression(s) from Imaging Studies Chest CTA 07/28/22 18:05 IMPRESSION: undefined Chest X-Ray 07/28/22 18:45 IMPRESSION: 1. Trace RIGHT effusion. No other evidence of acute cardiopulmonary process. Electronically Signed: Flaco Byrd MD at 19:10 EDT , Discharge Plan Triage Chief Complaint: Chest Pain Other Complaint: Abd Pain ED Provider: Cristofer Selby Dx/Rx/DC Orders Instructions: ED Chest Pain, Uncertain Cause Prescriptions: No Action clopidogrel [Plavix] 75 mg tablet 75 mg PO QDAY Qty: 93 3RF Rx Instructions: Day 1: 300mg (4 pills), Day two and forward: 75 mg (1 pill) PO Daily. dicyclomine 20 mg tablet 20 mg PO TID PRN (Reason: abdominal discomfort) Qty: 30 0RF ezetimibe [Zetia] 10 mg tablet 10 mg PO DAILY oxycodone 5 mg Tablet 5 mg PO Q6H PRN (Reason: Pain) Primary Care Provider: Willi Sofia Referrals: Willi Sofia MD [Primary Care Provider] - Disposition Disposition: Home, Self Care
--- NOTE | 2022-07-28 18:45 | RAD_ITS ---
INDICATION: chest pain EXAMINATION/TECHNIQUE: X-RAY - XR Chest 1 View COMPARISON: 06/20/2022 FINDINGS: LIFE-SUPPORT AND LINES: 1. None HEART AND VESSELS: The cardiac silhouette, pulmonary vasculature have normal appearance. No evidence of congestive failure. LUNGS AND PLEURAL SPACES: Lungs are clear. No focal infiltrate, consolidation or effusions. No evidence of pneumothorax. Trace RIGHT effusion is suspected with blunting RIGHT CP angle. MEDIASTINUM AND HILAR REGIONS: No masses adenopathy noted. No areas of calcification. Visualized upper airway is normal in position. BONY ELEMENTS: No acute bony changes noted. RAD/Chest 1 View (Portable) IMPRESSION: 1. Trace RIGHT effusion. No other evidence of acute cardiopulmonary process. Electronically Signed: Flaco Byrd MD at 19:10 EDT ,
[2022-07-28 18:46] LABS: Absolute Lymphocyte Count 2.59 X10^3/uL (0.83-4.51); Absolute Neutrophil Count 4.7 X10^3/uL (2.0-7.7); Basophil# 0.04 X10^3/uL; Basophil% 0.5 % (0-1); Eosinophil# 0.19 X10^3/uL; Eosinophils% 2.5 % (0-5); Hematocrit 41.5 % (37-47); Hemoglobin 14.1 g/dL (12.0-15.0); Lymphocyte # 2.59 X10^3/ul (0.83-4.51); Mean Corpuscular Hgb 28.3 pg (27.0-32.0); Mean Corpuscular Volume 83.2 fL (81-99); Mean Platelet Vol. 10.4 fl (6.2-12.0); Monocyte# 0.08 X10^3/uL; Monocyte% 1.1 % (0-10); NRBC Flagged by Analyzer 0 % (0-5); Neutrophil % 61.8 % (47-70); Platelet Count 284 K/mm3 (150-450); RBC Distribution Width CV 15.3 % (11.6-14.6); RBC Distribution Width SD 45.2 fl (35.1-43.9); Red Blood Count 4.99 M/mm3 (4.2-5.4); White Blood Count 7.6 K/mm3 (4.4-11.0)
[2022-07-28 18:54] LABS: Anion Gap 8 (5-15); BUN 13 mg/dL (7-18); BUN/Creat Ratio 17.9 RATIO (10-20); Calcium,Total 9.5 mg/dL (8.5-10.1); Chloride 105 mmol/L (98-107); Creatinine, Serum 0.73 mg/dL (0.55-1.02); EST Glomerular Filtration Rate 88 mL/min (>60); Est Glom Filt Rate - Afr Amer 106 mL/min (>60); Glucose 106 mg/dL (74-106); Potassium 3.7 mmol/L (3.5-5.1); Sodium Level 139 mmol/L (136-145); Troponin-I HS (w/2H Reflex) 4 pg/mL (3.0-54.0)
[2022-07-28 20:25] LABS: Reflex Troponin-HS? (from REC) Y
[2022-07-28 21:08] LABS: Troponin-I HS 3 pg/mL (3.0-54.0)
[2022-07-28 21:27] VITALS: BP 127/62; PULSE 79; RESP 21; O2SAT 96
[2022-07-28 22:47] VITALS: BP 122/79; PULSE 64; RESP 15; O2SAT 98
== END 2022-07-28 22:48 | disposition home or self-care (01) ==
PROVIDERS: Emergency Provider Student in an Organized Health Care Education/Training Program; PCP Family Medicine; Visit Provider Student in an Organized Health Care Education/Training Program
DX: R07.9 Chest pain, unspecified (principal); I25.10 Atherosclerotic heart disease of native coronary artery without angina pectoris; E78.5 Hyperlipidemia, unspecified; R10.9 Unspecified abdominal pain; Z87.891 Personal history of nicotine dependence
CPT/HCPCS: 71045; 71275; 80048; 84484; 85025; 93005; 99284; Q9967; A4216

== ENCOUNTER 2022-08-11 08:15 | Outpatient (RCR) | payer OTHER, SELFPAY ==
[2022-08-11 09:01] LABS: Absolute Lymphocyte Count 1.93 X10^3/uL (0.83-4.51); Absolute Neutrophil Count 1.7 X10^3/uL (2.0-7.7); Basophil# 0.04 X10^3/uL; Basophil% 0.9 % (0-1); Eosinophil# 0.14 X10^3/uL; Eosinophils% 3.3 % (0-5); Hematocrit 37.6 % (37-47); Hemoglobin 12.4 g/dL (12.0-15.0); Lymphocyte # 1.93 X10^3/ul (0.83-4.51); Lymphocyte % 45.2 % (19-41); Mean Corpuscular Hgb 27.7 pg (27.0-32.0); Mean Corpuscular Volume 84.1 fL (81-99); Mean Platelet Vol. 9.3 fl (6.2-12.0); Monocyte# 0.48 X10^3/uL; Monocyte% 11.2 % (0-10); NRBC Flagged by Analyzer 0 % (0-5); Neutrophil # 1.67 X10^3/uL (2.7-7.7); Neutrophil % 39.2 % (47-70); Platelet Count 202 K/mm3 (150-450); RBC Distribution Width CV 16.6 % (11.6-14.6); Red Blood Count 4.47 M/mm3 (4.2-5.4); White Blood Count 4.3 K/mm3 (4.4-11.0)
[2022-08-11 09:28] LABS: ALB/GLOB Ratio 0.9 RATIO (0.9-2.4); AST(SGOT) 16 U/L (15-37); Alanine Aminotransfer ALT/SGPT 26 U/L (13-56); Albumin, Serum 3.6 g/dL (3.2-5.0); Alkaline Phosphatase 66 U/L (45-117); Anion Gap 6 (5-15); BUN 10 mg/dL (7-18); BUN/Creat Ratio 12.3 RATIO (10-20); Calcium,Total 9.2 mg/dL (8.5-10.1); Chloride 107 mmol/L (98-107); Creatinine, Serum 0.81 mg/dL (0.55-1.02); EST Glomerular Filtration Rate 77 mL/min (>60); Est Glom Filt Rate - Afr Amer 94 mL/min (>60); Globulin 3.8 g/dL (2.2-4.2); Glucose 102 mg/dL (74-106); Potassium 3.9 mmol/L (3.5-5.1); Protein, Total 7.4 g/dL (6.4-8.2); Sodium Level 139 mmol/L (136-145)
[2022-08-12 12:32] LABS: Cancer Antigen 125 76.7 U/mL (0.0-38.1)
== END 2022-08-11 18:00 | disposition home or self-care (01) ==
LOC: LAB 08:15
PROVIDERS: PCP Family Medicine; Referring Provider Obstetrics & Gynecology Gynecologic Oncology; Visit Provider Obstetrics & Gynecology Gynecologic Oncology
DX: C78.6 Secondary malignant neoplasm of retroperitoneum and peritoneum (principal)
CPT/HCPCS: 36415; 80053; 85025; 86304

== ENCOUNTER 2022-09-01 07:19 | Outpatient (RCR) | payer OTHER, SELFPAY ==
[2022-09-01 08:01] LABS: Absolute Lymphocyte Count 2.32 X10^3/uL (0.83-4.51); Absolute Neutrophil Count 3.1 X10^3/uL (2.0-7.7); Basophil# 0.04 X10^3/uL; Basophil% 0.6 % (0-1); Eosinophil# 0.06 X10^3/uL; Hematocrit 38.1 % (37-47); Hemoglobin 12.2 g/dL (12.0-15.0); Lymphocyte # 2.32 X10^3/ul (0.83-4.51); Lymphocyte % 37.6 % (19-41); Mean Corpuscular Hgb 27.4 pg (27.0-32.0); Mean Corpuscular Volume 85.4 fL (81-99); Mean Platelet Vol. 9.2 fl (6.2-12.0); Monocyte# 0.56 X10^3/uL; Monocyte% 9.1 % (0-10); NRBC Flagged by Analyzer 0 % (0-5); Neutrophil # 3.12 X10^3/uL (2.7-7.7); Neutrophil % 50.6 % (47-70); Platelet Count 242 K/mm3 (150-450); RBC Distribution Width CV 18.7 % (11.6-14.6); RBC Distribution Width SD 57.3 fl (35.1-43.9); Red Blood Count 4.46 M/mm3 (4.2-5.4); White Blood Count 6.2 K/mm3 (4.4-11.0)
[2022-09-01 08:24] LABS: AST(SGOT) 22 U/L (15-37); Alanine Aminotransfer ALT/SGPT 34 U/L (13-56); Albumin, Serum 3.6 g/dL (3.2-5.0); Alkaline Phosphatase 65 U/L (45-117); Anion Gap 8 (5-15); BUN 10 mg/dL (7-18); BUN/Creat Ratio 12.8 RATIO (10-20); Calcium,Total 9.5 mg/dL (8.5-10.1); Chloride 108 mmol/L (98-107); Creatinine, Serum 0.78 mg/dL (0.55-1.02); EST Glomerular Filtration Rate 81 mL/min (>60); Est Glom Filt Rate - Afr Amer 98 mL/min (>60); Globulin 3.6 g/dL (2.2-4.2); Glucose 101 mg/dL (74-106); Potassium 4.2 mmol/L (3.5-5.1); Protein, Total 7.2 g/dL (6.4-8.2); Sodium Level 143 mmol/L (136-145)
[2022-09-02 11:35] LABS: Cancer Antigen 125 43.8 U/mL (0.0-38.1)
== END 2022-09-14 18:00 | disposition home or self-care (01) ==
LOC: LAB 07:19
PROVIDERS: PCP Family Medicine; Referring Provider Obstetrics & Gynecology Gynecologic Oncology; Visit Provider Obstetrics & Gynecology Gynecologic Oncology
DX: C78.6 Secondary malignant neoplasm of retroperitoneum and peritoneum (principal)
CPT/HCPCS: 36415; 80053; 85025; 86304

== ENCOUNTER 2022-11-03 07:48 | Outpatient (RCR) | payer OTHER, SELFPAY ==
[2022-11-03 08:22] LABS: Absolute Lymphocyte Count 2.53 X10^3/uL (0.83-4.51); Absolute Neutrophil Count 3.4 X10^3/uL (2.0-7.7); Basophil# 0.04 X10^3/uL; Basophil% 0.6 % (0-1); Hemoglobin 12.5 g/dL (12.0-15.0); Lymphocyte # 2.53 X10^3/ul (0.83-4.51); Lymphocyte % 38.4 % (19-41); Mean Corp Hgb Conc 32.1 g/dL (32-36); Mean Corpuscular Hgb 28.9 pg (27.0-32.0); Mean Corpuscular Volume 90.3 fL (81-99); Mean Platelet Vol. 9.8 fl (6.2-12.0); Monocyte% 6.1 % (0-10); NRBC Flagged by Analyzer 0 % (0-5); Neutrophil # 3.39 X10^3/uL (2.7-7.7); Neutrophil % 51.6 % (47-70); Platelet Count 230 K/mm3 (150-450); RBC Distribution Width CV 14.4 % (11.6-14.6); RBC Distribution Width SD 47.9 fl (35.1-43.9); Red Blood Count 4.32 M/mm3 (4.2-5.4); White Blood Count 6.6 K/mm3 (4.4-11.0)
[2022-11-03 08:52] LABS: ALB/GLOB Ratio 1.1 RATIO (0.9-2.4); AST(SGOT) 12 U/L (15-37); Alanine Aminotransfer ALT/SGPT 20 U/L (13-56); Albumin, Serum 3.7 g/dL (3.2-5.0); Alkaline Phosphatase 56 U/L (45-117); Anion Gap 5 (5-15); BUN 11 mg/dL (7-18); Calcium,Total 9.3 mg/dL (8.5-10.1); Chloride 109 mmol/L (98-107); Creatinine, Serum 0.92 mg/dL (0.55-1.02); EST Glomerular Filtration Rate 67 mL/min (>60); Est Glom Filt Rate - Afr Amer 81 mL/min (>60); Globulin 3.4 g/dL (2.2-4.2); Glucose 101 mg/dL (74-106); Protein, Total 7.1 g/dL (6.4-8.2); Sodium Level 141 mmol/L (136-145)
[2022-11-04 13:06] LABS: Cancer Antigen 125 30.9 U/mL (0.0-38.1)
== END 2022-11-03 09:00 | disposition home or self-care (01) ==
LOC: LAB 07:48
PROVIDERS: PCP Family Medicine; Referring Provider Obstetrics & Gynecology Gynecologic Oncology; Visit Provider Obstetrics & Gynecology Gynecologic Oncology
DX: C78.6 Secondary malignant neoplasm of retroperitoneum and peritoneum (principal)
CPT/HCPCS: 36415; 80053; 85025; 86304

== ENCOUNTER → 2022-11-24 | Outpatient (CLI) | payer OTHER, SELFPAY ==
[2022-11-24 08:25] LABS: Absolute Lymphocyte Count 2.26 X10^3/uL (0.83-4.51); Absolute Neutrophil Count 3.4 X10^3/uL (2.0-7.7); Basophil# 0.04 X10^3/uL; Basophil% 0.6 % (0-1); Eosinophil# 0.06 X10^3/uL; Hematocrit 37.6 % (37-47); Hemoglobin 12.2 g/dL (12.0-15.0); Lymphocyte # 2.26 X10^3/ul (0.83-4.51); Lymphocyte % 35.9 % (19-41); Mean Corp Hgb Conc 32.4 g/dL (32-36); Mean Corpuscular Hgb 28.6 pg (27.0-32.0); Mean Corpuscular Volume 88.3 fL (81-99); Mean Platelet Vol. 9.5 fl (6.2-12.0); Monocyte# 0.52 X10^3/uL; Monocyte% 8.3 % (0-10); NRBC Flagged by Analyzer 0 % (0-5); Neutrophil # 3.36 X10^3/uL (2.7-7.7); Neutrophil % 53.4 % (47-70); Platelet Count 246 K/mm3 (150-450); RBC Distribution Width SD 44.7 fl (35.1-43.9); Red Blood Count 4.26 M/mm3 (4.2-5.4); White Blood Count 6.3 K/mm3 (4.4-11.0)
[2022-11-24 08:38] LABS: AST(SGOT) 15 U/L (15-37); Alanine Aminotransfer ALT/SGPT 34 U/L (13-56); Albumin, Serum 3.3 g/dL (3.2-5.0); Alkaline Phosphatase 57 U/L (45-117); Anion Gap 11 (5-15); BUN 17 mg/dL (7-18); BUN/Creat Ratio 18.4 RATIO (10-20); Chloride 106 mmol/L (98-107); Creatinine, Serum 0.92 mg/dL (0.55-1.02); EST Glomerular Filtration Rate 67 mL/min (>60); Est Glom Filt Rate - Afr Amer 81 mL/min (>60); Globulin 3.3 g/dL (2.2-4.2); Glucose 120 mg/dL (74-106); Potassium 4.3 mmol/L (3.5-5.1); Protein, Total 6.6 g/dL (6.4-8.2); Sodium Level 142 mmol/L (136-145)
[2022-11-25 20:14] LABS: Cancer Antigen 125 32.1 U/mL (0.0-38.1)
== END | disposition home or self-care (01) ==
LOC: MEDOUTP 07:50
PROVIDERS: Nurse Practitioner Gerontology; PCP Family Medicine; Referring Provider Obstetrics & Gynecology Gynecologic Oncology; Visit Provider Obstetrics & Gynecology Gynecologic Oncology
DX: I87.8 Other specified disorders of veins (principal)
CPT/HCPCS: 36592; 80053; 85025; 86304; A4216

== ENCOUNTER → 2022-12-27 | Outpatient (CLI) | payer OTHER, SELFPAY ==
[2022-12-27 08:18] LABS: Absolute Neutrophil Count 3.4 X10^3/uL (2.0-7.7); Basophil# 0.06 X10^3/uL; Eosinophils% 3.5 % (0-5); Hematocrit 38.4 % (37-47); Hemoglobin 12.5 g/dL (12.0-15.0); Lymphocyte % 29.6 % (19-41); Mean Corp Hgb Conc 32.6 g/dL (32-36); Mean Corpuscular Hgb 28.3 pg (27.0-32.0); Mean Corpuscular Volume 86.9 fL (81-99); Mean Platelet Vol. 9.6 fl (6.2-12.0); Monocyte# 0.37 X10^3/uL; Monocyte% 6.4 % (0-10); NRBC Flagged by Analyzer 0 % (0-5); Neutrophil # 3.39 X10^3/uL (2.7-7.7); Neutrophil % 59.2 % (47-70); Platelet Count 218 K/mm3 (150-450); RBC Distribution Width CV 14.3 % (11.6-14.6); RBC Distribution Width SD 46.1 fl (35.1-43.9); Red Blood Count 4.42 M/mm3 (4.2-5.4); White Blood Count 5.7 K/mm3 (4.4-11.0)
[2022-12-27 08:37] LABS: AST(SGOT) 16 U/L (15-37); Alanine Aminotransfer ALT/SGPT 23 U/L (13-56); Albumin, Serum 3.6 g/dL (3.2-5.0); Alkaline Phosphatase 68 U/L (45-117); Anion Gap 8 (5-15); BUN 15 mg/dL (7-18); BUN/Creat Ratio 15.8 RATIO (10-20); Chloride 108 mmol/L (98-107); Creatinine, Serum 0.95 mg/dL (0.55-1.02); EST Glomerular Filtration Rate 64 mL/min (>60); Est Glom Filt Rate - Afr Amer 78 mL/min (>60); Globulin 3.5 g/dL (2.2-4.2); Glucose 115 mg/dL (74-106); Potassium 3.9 mmol/L (3.5-5.1); Protein, Total 7.1 g/dL (6.4-8.2); Sodium Level 141 mmol/L (136-145)
[2022-12-27 16:39] LABS: Xtra Tube EP Lab EXTRA TUBE
[2022-12-28 08:16] LABS: Cancer Antigen 125 28.2 U/mL (0.0-38.1)
== END | disposition home or self-care (01) ==
LOC: MEDOUTP 07:48
PROVIDERS: PCP Family Medicine; Referring Provider Obstetrics & Gynecology Gynecologic Oncology; Visit Provider Obstetrics & Gynecology Gynecologic Oncology
DX: C56.9 Malignant neoplasm of unspecified ovary (principal)
CPT/HCPCS: 36415; 36591; 80053; 85025; 86304; A4216

== ENCOUNTER → 2023-02-17 | Outpatient (CLI) | payer OTHER, SELFPAY ==
--- NOTE | 2023-02-17 11:54 | PFT ---
INTRODUCTION: The patient is a 57-year-old female that presents for pulmonary function studies secondary to a diagnosis of lung nodule. Respiratory therapy reported good patient effort. Bronchodilators were used during testing. INTERPRETATION: Forced expiration spirometry demonstrates the presence of a mild large airways obstructive ventilatory defect. There was no significant response to aerosolized bronchodilators. Spirograms are of fair quality and plateau normally. Body plethysmography was performed and revealed lung volumes to be within normal limits. Diffusing capacity by single breath CO was likewise within normal limits. IMPRESSION: Irreversible mild large airways obstructive ventilatory impairment with preserved lung volumes and diffusing capacity.
== END | disposition home or self-care (01) ==
LOC: PSN 06:40
PROVIDERS: PCP Family Medicine; Referring Provider Internal Medicine; Visit Provider Internal Medicine
DX: R91.1 Solitary pulmonary nodule (principal); Z72.0 Tobacco use
CPT/HCPCS: 94060; 94726; 94729

== ENCOUNTER 2023-02-21 07:50 | Day surgery (SDC) | payer OTHER, SELFPAY ==
--- NOTE | 2023-02-21 07:40 | TONS_PTH ---
PATIENT: EVELYN HARVEY LOC: [facility] [place] U#:[id number] AGE/SX: 57/F ROOM: RE02/21/[address]: Dr. Syed Marquez MD : 1965 BED: DIS: 02/21/2023 SPEC #: [id number] RECD: 02/21/23 15:59 STATUS: NAOMI AHUMADA #: [id number] BERNIE: 02/21/23 07:[address]: Syed Marquez DEPT: SURGICAL PATHOLOGY RECD BY: Roldan Jimenez ENTERED: 02/22/23 10:08 SP TYPE: TONSILS OTHR DR: Dr. Willi Sofia MD Tissues: A - Tonsil, NOS B - Tonsil, NOS Procedures: Surgery Specimen Level III HEADER OPERATION: Tonsillectomy PRE-OP DIAGNOSIS: Neoplasm of pharynx TISSUE SUBMITTED: A - Right tonsil, testing for HPV and P16, B - Left tonsil, testing for HPV and P16 MICROSCOPIC DIAGNOSIS A. Right tonsil, tonsillectomy: Reactive lymphoid hyperplasia. Negative for dysplasia/carcinoma. See comment. B. Left tonsil, tonsillectomy: Reactive lymphoid hyperplasia. Focal actinomyces colonization. Negative for dysplasia/carcinoma. See comment. SJ:rg 02/23/2023 COMMENT A & B. Results from immunohistochemistry ([id number]) for surrogate HPV marker (p16) will be reported separately. B. Focal histiocytic reaction and foreign body giant cells are noted. Correlation with clinical findings and appropriate follow up are necessary. Case has been reviewed in consultation with Dr. Sellers who concurs with the above diagnosis. IDC:AM MICROSCOPIC DESCRIPTION Slides are reviewed. GROSS DESCRIPTION A - Received in formalin labeled with the patient's name and designated right tonsil, testing for HPV and P16. The specimen consists of a tonsil that weighs 1.8 gm and measures 2.2 x 1.5 x 1.0 cm. The external surface is pink-collado, smooth, glistening and somewhat lobulated. Focally it is hemorrhagic, granular and bears cautery artifact. Serial cross sections through the tonsil reveal normal tonsillar architecture. The entire specimen is submitted in two cassettes. B - Received in formalin labeled with the patient's name and designated left tonsil, testing for HPV and P16. The specimen consists of a tonsil that weighs 1.5 gm and measures 2.3 x 1.0 x 0.8 cm. The external surface is pink-collado, smooth, glistening and somewhat lobulated. Focally it is hemorrhagic, granular and bears cautery artifact. Serial cross sections through the tonsil reveal normal tonsillar architecture. The entire specimen is submitted in two cassettes. / SJ:rg 02/22/2023 TC:5 CPT: 82567 x2
[2023-02-21] MEDS: Lactated Ringers 1,000 ML 15 ML IV (08:32)
[2023-02-21 08:33] VITALS: BP 114/75; PULSE 70; RESP 17; TEMP 36.2; O2SAT 98; BMI 17.2
--- NOTE | 2023-02-21 09:28 | DCINST_ITS ---
Discharge Instructions Diet Discharge Diet: No restrictions Activity Discharge Activity: Return to Normal Activity Lifting Restrictions: no heavy lifting Dressing / Incision Call your doctor if your incision/area has: Sudden Increased Bleeding Follow Up Care Please Follow Up With: Syed Marquez MD When: as needed, will discuss by phone Test Results: Test results from this visit will be discussed in further detail at your follow- up appointment, if applicable. Discharge Plan Admission Attending Provider: Syed Marquez Primary Care Provider: Willi Sofia Discharge Orders/Prescriptions Prescriptions: No Action sennosides-docusate sodium 8.6-50 mg tablet 1 tab-cap PO BID gabapentin 300 mg capsule 100 mg PO QHS ashwagandha extract 120 mg capsule 125 mg PO DAILY magnesium 200 mg tablet 400 mg PO DAILY cholecalciferol (vitamin D3) 125 mcg (5,000 unit) capsule 125 mcg PO DAILY ezetimibe [Zetia] 10 mg tablet 10 mg PO DAILY Qty: 90 3RF aspirin [Adult Aspirin Regimen] 81 mg tablet,delayed release (DR/EC) 81 mg PO DAILY Referrals / Follow Up: Willi Sofia MD [Primary Care Provider] - Disposition Disposition (needs filled in before D/C Order can be placed): Home, Self Care
--- NOTE | 2023-02-21 09:40 | IMM_PTH ---
PATIENT: EVELYN HARVEY LOC: [facility] [place] U#:[id number] AGE/SX: 57/F ROOM: RE02/21/[address]: Dr. Syed Marquez MD : 1965 BED: DIS: 02/21/2023 SPEC #: [id number] RECD: 02/22/23 13:18 STATUS: NAOMI REQ #: [id number] BERNIE: 02/21/23 09:[address]: Syed Marquez DEPT: IMMUNOHISTOCHEMISTRY RECD BY: Michelle Pugh ENTERED: 02/22/23 13:20 SP TYPE: IMMUNO OTHR DR: Dr. Willi Sofia MD Tissues: A - Tonsil, NOS B - Tonsil, NOS Procedures: p16 (initial) KI-67 (add) PHYSICIAN & INSTITUTION [place] [id number] SPECIMEN INFORMATION: Tissue Source: A ? Right tonsil, B ? Left tonsil Clinical Info: Neoplasm of pharynx Specimen Number: [id number] A & B CPT code: 74390 x2, 87610 x2 METHODOLOGY: Deparaffinized sections of prefer/formalin-fixed tissue or PAP/DQ stained slides are incubated with monoclonal/polyclonal antibodies/oligonucleotide probes. Localization is made via biotin free immunoperoxidase method. Appropriate controls are performed and reacted as expected. Results on target cell population are indicated in the following table: RESULTS: ANTIBODY / CLONE RESULT Block A P16 (E6H4) positive, patchy staining Ki-67 (30-9) positive, basal portion of epithelium only Block B P16 (E6H4) positive, patchy staining Ki-67 (30-9) positive, basal portion of epithelium only These tests were developed and their performance characteristics determined by [facility]. They may not have been cleared or approved by the U.S. Food and Drug Administration. The FDA has determined that such clearance or approval is not necessary. The above immunohistochemical/dualISH markers are ordered and reviewed by the Pathologist. INTERPRETATION: A. Right tonsil, tonsillectomy: Reactive lymphoid hyperplasia. Negative for dysplasia/carcinoma. B. Left tonsil, tonsillectomy: Reactive lymphoid hyperplasia. Negative for dysplasia/carcinoma. SJ:caitlin 02/23/2023 Case has been reviewed in consultation with Dr. Sellers who concurs with the above diagnosis. IDC:AM
--- NOTE | 2023-02-21 09:46 | OP.PCM_ITS ---
Problems Associated Problem List Diagnoses (1) Tonsillar mass: Report of Operation Date of Procedure: 02/21/23 Pre-Operative Diagnosis: tonsillar mass Post-Operative Diagnosis: tonsillar mass Surgery/Procedure Performed:: tonsillectomy Surgeon: Syed Marquez Type of Anesthesia: General Description of Procedure: on the day of the procedure, after appropriate informed consent was obtained, the patient was brought to the operating room and placed in supine position on the operating table. she was placed under general endotracheal anesthesia by the anesthesiologist. the endotracheal tube was secured, the eyes were taped. the table was rotated 90 degrees toward the anesthesiologist. a fanta-bonny mouthgag was inserted into the oral cavity with care not to damage the lips, teeth or gums. it was suspended from the craig stand. a red rubber catheter was introduced transnasally to elevate the soft palate. the right tonsil was grasped with a curved allis, retracted medially, dissected and removed using the bovie. the left tonsil was grasped with the curved allis, retracted medially, dissected and removed using the bovie. hemostasis was achieved with the suction electrocautery. a valsalva was held and hemostasis was observed. the patient previously had a PET/CT for evaluation of her metastatic ovarian carcinoma. a small avid pulmonary area that is reportedly too small to biopsy is present. additionally, her right tonsil had increased avidity on PET and was not consistent with any physiologic activity. during her tonsillectomy, no area of the right or left tonsil appeared abnormal. her base of tongue was also evaluated and there were no abnormalities bilaterally. the bilateral tonsils were removed given that if she does have an incidental T1 carcinoma on the right, she has a 10% chance of an occult carcinoma on her left. the patient was awoken from anesthesia and transferred to the PACU in stable co ndition.
[2023-02-21 10:03] VITALS: BP 119/70; BP 128/78; PULSE 63; PULSE 66; RESP 16; TEMP 36.6; O2SAT 100; O2SAT 98
[2023-02-21 10:30] VITALS: BP 120/71; PULSE 58; RESP 16; TEMP 36.6; O2SAT 99
[2023-02-21] MEDS: Acetaminophen/Codeine #3 Tablet 1 TABLET PO (10:57)
[2023-02-21] MEDS: 0.9 % NaCl (Sterile) Posiflush 10 mL IV (11:30)
[2023-02-21 11:40] VITALS: BP 115/66; BP 128/78; PULSE 62; RESP 16; TEMP 36.9; O2SAT 100
== END 2023-02-21 12:00 | disposition home or self-care (01) ==
LOC: SDC 07:52 → AC 07:55
PROVIDERS: PCP Family Medicine; Referring Provider Otolaryngology; Visit Provider Otolaryngology
PROC: (CPT 42826; principal; 2023-02-21 09:25)
DX: J35.1 Hypertrophy of tonsils (principal); J44.9 Chronic obstructive pulmonary disease, unspecified; I25.10 Atherosclerotic heart disease of native coronary artery without angina pectoris; Z95.5 Presence of coronary angioplasty implant and graft; E78.5 Hyperlipidemia, unspecified; Z86.16 Personal history of COVID-19; I25.2 Old myocardial infarction; Z95.828 Presence of other vascular implants and grafts; Z90.710 Acquired absence of both cervix and uterus; F32.A Depression, unspecified; D37.05 Neoplasm of uncertain behavior of pharynx; F17.210 Nicotine dependence, cigarettes, uncomplicated
CPT/HCPCS: 42826; 00170; 88304; 88341; 88342; J7120; A4216; J2405

== ENCOUNTER 2023-12-07 10:04 | Emergency (ER) | payer OTHER, SELFPAY ==
[2023-12-07] VITALS (20 sets, daily range): BP systolic 115–143; BP diastolic 74–98; PULSE 61–98; RESP 11–19; TEMP 36.6; O2SAT 95–100; BMI 16.0
--- NOTE | 2023-12-07 10:20 | EX.ED.UPPERE ---
HPI History of Present Illness HPI Narrative: Patient presents with left shoulder pain that has been constant for the past 4 days. Patient states it has been waxing and waning over the last 4 days. Patient states the pain started in her right shoulder last week. Patient states it lasted for couple days and then resolved. Patient describes her pain as sharp. Patient states nothing makes it better and nothing makes it worse. Patient denies any paresthesias or weakness. Patient denies any trauma or injury. Patient is concerned that this could be cardiac related since she has had prior ID and stents. Chief Complaint: Upper Extremity Injury Informant: patient Onset/Context/Timing Onset: Days (4) Context: Gradual Onset Timing: Waxes and wanes Quality of Pain: Sharp Location: Left shoulder Worsened by: Nothing Relieved by: Nothing Associated Symptoms Associated Symptoms: Negative for Parasthesia or Weakness PFSH PFSH Medical History Abdominal pain Acute ST elevation myocardial infarction (STEMI) (09/13/21) Anxiety Ascites Atherosclerotic heart disease of [place] coronary artery without angina pectoris Bladder disease Cardiology follow-up encounter COPD (chronic obstructive pulmonary disease) COVID-19 (09/04/21) Depression Dietary restriction Elevated CA-125 Emphysema, unspecified Former smoker Heart palpitations History of heart attack HLD (hyperlipidemia) Hx of blood clots Incidental lung nodule, greater than or equal to 8mm Low iron Ovarian cancer Port-A-Cath in place Post-menopausal Shortness of breath on exertion Smoker Syncope Tobacco use Unexplained weight loss Wears glasses Home Medications aspirin 81 mg tablet,delayed release (Adult Aspirin Regimen) 81 mg PO DAILY 10/31/22 [History Last Taken 02/20/23] cholecalciferol (vitamin D3) 125 mcg (5,000 unit) capsule 125 mcg PO DAILY 02/16/23 [History Last Taken 02/20/23] duloxetine 20 mg capsule,delayed release (Cymbalta) 30 mg PO DAILY 09/12/23 [History Last Taken Unknown] ezetimibe 10 mg tablet (Zetia) 10 mg PO DAILY #90 tabs 11/09/23 [Rx Last Taken Unknown] Allergy/AdvReac Type Severity Reaction Status Date / Time hydromorphone [From Dilaudid] Allergy Intermediate Hives Verified 12/07/23 10:07 sulfamethoxazole Allergy Hives Verified 12/07/23 10:07 [From Bactrim] trimethoprim [From Bactrim] Allergy Hives Verified 12/07/23 10:07 atorvastatin AdvReac Severe Several Verified 12/07/23 10:07 UTI's, diarrhea, poor appetite metoprolol AdvReac Severe Severe Verified 12/07/23 10:07 diarrhea and fatigue Opioids - Morphine Analogues AdvReac NAUSEA AND Verified 12/07/23 10:07 [narcotics] VOMITING Family History Grandmother Cancer Ovarian Grandfather Cancer Lung Heart disease Mother Thyroid disorder Sister Thyroid disorder Sister Thyroid disorder Sister Thyroid disorder Colon cancer Father Hypertension Heart disease Surgical History H/O cardiac catheterization History of coronary artery stent placement (09/13/21) History of elbow surgery History of total hysterectomy S/P tubal ligation Social History household members: none Smoking Status: Former smoker quit status: considering quitting alcohol intake: current alcohol intake frequency: holidays/special occasions only details: rarely substance use type: does not use caffeine: No ROS ROS ED Constitutional Constitutional ED: Denies chills or fever(s) Eyes Eyes: Denies blurry vision or change in vision ENT ENT ED: Denies rhinorrhea or sore throat Cardiovascular Cardiovascular: Denies chest pain or palpitations Respiratory/Chest Respiratory/Chest: Denies cough or dyspnea Gastrointestinal Gastrointestinal: Reports nausea; Denies vomiting Genitourinary Genitourinary ED: Denies dysuria or hematuria Musculoskeletal Musculoskeletal: Denies back pain or neck pain Integumentary Denies abscess or rash Neurologic Neurologic: Denies headache(s) or weakness Allergic/Immunologic Allergic/Immunologic ED: Denies mouth swelling or urticaria EXAM Physical Exam Const Vital Signs: 12/07/23 10:05 Temperature 97.8 F Temperature Source Temporal Pulse Rate 98 Respiratory Rate 14 Blood Pressure 143/98 H Blood Pressure Mean 113 Pulse Ox 100 Oxygen Delivery Method Room Air Positive well nourished and well developed General Appearance ED: well developed and NAD HEENT Reports moist mucous membranes Neck full ROM and supple Chest Wall inspection of chest normal and palpation of chest normal Resp normal respiratory effort and clear to auscultation bilaterally Cardio regular rate and regular rhythm GI non-tender and non-distended Palpation: soft Extremity Extremity Narrative: There is no tenderness, edema, or ecchymosis over the left shoulder. There is good range of motion. There is no deformity noted. Neuro oriented x3, CN's II-XII intact bilaterally, moves all extremities, no focal motor deficits and no sensory deficits noted Sensorium / Orientation: alert Motor Exam: strength 5/5 throughout Psych mental status grossly normal MDM MDM MDM Narrative Medical decision making narrative: Differential diagnosis includes cardiac dysrhythmia, cardiac ischemia, pneumonia, pneumothorax, musculoskeletal pain, and anxiety. EKG will be obtained to assess for cardiac dysrhythmia and cardiac ischemia. Chest x-ray will be obtained to assess for pneumonia and pneumothorax. CBC will be obtained to assess for leukocytosis and anemia. Basic metabolic profile will be obtained to assess for electrolyte abnormality and renal function. High-sensitivity troponin will be obtained to assess for cardiac ischemia. 2-hour repeat high-sensitivity troponin will be obtained to assess for ongoing cardiac ischemia. Lab Data Attestation: I reviewed the patient's lab results. Lab results narrative: CBC was reviewed. There is a mild anemia with a hemoglobin of 10.7 and hematocrit of 32.6. White blood cell count was slightly low at 3.7. Basic metabolic profile was reviewed and was essentially within normal limits. High-sensitivity troponin was reviewed and was normal at less than 3. Radiography Chest X-Ray - ED: 1 View, Read by ED Physician, Read by Radiologist and Right Effusion Diagnostic Testing: Portable 1 view chest x-ray was obtained. On my independent interpretation, lung cruz are clear. There is a right pleural effusion. There is normal cardiac silhouette. Bony thorax is normal. There is no acute process noted. Radiologist also interpreted the x-ray and agrees. EKG Initial EKG: Attestation: I personally reviewed and interpreted this EKG as follows: Interpretation: Sinus Rhythm (75) and No Acute Injury Pattern Comments: EKG was obtained. On my independent interpretation, it showed a normal sinus rhythm with a rate of 75. OR interval, QRS interval, and QTc intervals were all normal. [place] was normal. There are no acute ST or T wave changes. Prior EKG tracings: available for review Prior: Unchanged (12/23/2022) Treatment and Re-Evaluation Narrative: Patient was given aspirin here. Patient was advised of her findings. Patient has a HEART score of 3. Patient was advised that this is low risk for acute cardiac event. Patient was instructed to follow-up with her primary care physician in 5 to 7 days. Patient was instructed return if worse in any way. Patient understood and was agreeable with the plan. All questions were answered. Discharge Plan Triage Chief Complaint: Upper Extremity Injury ED Provider: Travis Carrion Dx/Rx/DC Orders Clinical Impression: Pain of left shoulder region, Atherosclerotic heart disease of [place] coronary artery without angina pectoris Instructions: ED Pain, Acute, Uncertain Cause Prescriptions: No Action duloxetine [Cymbalta] 20 mg capsule,delayed release(DR/EC) 30 mg PO DAILY cholecalciferol (vitamin D3) 125 mcg (5,000 unit) capsule 125 mcg PO DAILY aspirin [Adult Aspirin Regimen] 81 mg tablet,delayed release (DR/EC) 81 mg PO DAILY ezetimibe [Zetia] 10 mg tablet 10 mg PO DAILY Qty: 90 3RF Primary Care Provider: Willi Sofia Referrals: Germán Barrientos MD [Med Staff - Active Staff] - 5-7 Days Willi Sofia MD [Primary Care Provider] - 5-7 Days Bairon Lenz DO [Med Staff - Active Staff] - Keep Dario appointment Disposition Disposition: Home, Self Care
--- NOTE | 2023-12-07 10:30 | RAD_ITS ---
STUDY: X-RAY CHEST REASON FOR EXAM: Female, 58 years old. Chest pain TECHNIQUE: Single AP portable view of the chest. COMPARISON: Comparison is made with prior study July 28, 2022 FINDINGS: A right-sided cortes catheter is in situ with the tip at the junction of the superior vena cava and right atrium. There is a new small right pleural effusion with right basilar atelectasis. Normal size heart. Normal mediastinum and hong. Normal visualized pulmonary arteries. Normal visualized aortic arch and descending thoracic aorta. Normal visualized thoracic spine. Normal visualized ribs, clavicles, and shoulders. There is no demonstrated abnormality of the visualized soft tissue structures of the upper abdomen. RAD/Chest 1 View (Portable) IMPRESSION: New small right pleural effusion with right basilar atelectasis. Electronically Signed: Isidoro Romero MD at 11:27 EST ,
--- NOTE | 2023-12-07 10:30 | EKG12_ITS ---
Test Reason : Blood Pressure : / mmHG Vent. Rate : 075 BPM Atrial Rate : 075 BPM P-R Int : 094 ms QRS Dur : 086 ms QT Int : 382 ms P-R-T Axes : -29 072 062 degrees QTc Int : 426 ms Sinus rhythm with short IA Otherwise normal ECG Confirmed by MILDRED DOWNING, EMIL ([id number]), general expeditor SABRA JUAREZ ([id number]) on 12/08/2023 10:38:09 AM Referred By: Confirmed By:EMIL LEVY MD
[2023-12-07] MEDS: Aspirin 81 MG TAB.CHEW 324 MG PO (10:36)
[2023-12-07 11:09] LABS: Absolute Lymphocyte Count 1.37 X10^3/uL (0.83-4.51); Absolute Neutrophil Count 1.8 X10^3/uL (2.0-7.7); Basophil# 0.05 X10^3/uL; Basophil% 1.4 % (0-1); Eosinophil# 0.12 X10^3/uL; Eosinophils% 3.3 % (0-5); Hematocrit 32.6 % (37-47); Hemoglobin 10.7 g/dL (12.0-15.0); Lymphocyte # 1.37 X10^3/ul (0.83-4.51); Lymphocyte % 37.4 % (19-41); Mean Corp Hgb Conc 32.8 g/dL (32-36); Mean Corpuscular Hgb 29.4 pg (27.0-32.0); Mean Corpuscular Volume 89.6 fL (81-99); Mean Platelet Vol. 9.9 fl (6.2-12.0); Monocyte# 0.29 X10^3/uL; Monocyte% 7.9 % (0-10); NRBC Flagged by Analyzer 0 % (0-5); Neutrophil # 1.82 X10^3/uL (2.7-7.7); Neutrophil % 49.7 % (47-70); Platelet Count 265 K/mm3 (150-450); RBC Distribution Width CV 14.9 % (11.6-14.6); RBC Distribution Width SD 48.9 fl (35.1-43.9); Red Blood Count 3.64 M/mm3 (4.2-5.4); White Blood Count 3.7 K/mm3 (4.4-11.0)
[2023-12-07 11:24] LABS: Anion Gap 4 (5-15); BUN 18 mg/dL (7-18); BUN/Creat Ratio 20.1 RATIO (10-20); Calcium,Total 8.9 mg/dL (8.5-10.1); Chloride 106 mmol/L (98-107); EST Glomerular Filtration Rate 69 mL/min (>60); Est Glom Filt Rate - Afr Amer 83 mL/min (>60); Estimated Creatinine Clearance 51.35 ml/min; Glucose 104 mg/dL (74-106); Potassium 3.9 mmol/L (3.5-5.1); Sodium Level 137 mmol/L (136-145); Troponin-I HS (w/2H Reflex) < 3 pg/mL (3.0-54.0)
[2023-12-07 13:00] LABS: Reflex Troponin-HS? (from REC) Y
== END 2023-12-07 13:20 | disposition home or self-care (01) ==
PROVIDERS: Emergency Provider Emergency Medicine; PCP Family Medicine; Visit Provider Emergency Medicine
DX: M25.512 Pain in left shoulder (principal); J44.9 Chronic obstructive pulmonary disease, unspecified; I25.10 Atherosclerotic heart disease of native coronary artery without angina pectoris; Z87.891 Personal history of nicotine dependence; Z95.5 Presence of coronary angioplasty implant and graft; Z79.82 Long term (current) use of aspirin; E78.5 Hyperlipidemia, unspecified; Z86.16 Personal history of COVID-19; I25.2 Old myocardial infarction
CPT/HCPCS: 71045; 80048; 84484; 85025; 93005; 99283; A4216

== ENCOUNTER → 2024-07-19 | Outpatient (CLI) | payer OTHER, SELFPAY ==
[2024-07-19 13:05] VITALS: BP 100/67; PULSE 88; RESP 16; TEMP 36.9; O2SAT 100
[2024-07-19 13:15] VITALS: BP 105/67; PULSE 97; RESP 16; O2SAT 99
[2024-07-19 13:30] VITALS: BP 97/60; PULSE 86; RESP 16; O2SAT 98
[2024-07-19 13:33] VITALS: BP 103/69; PULSE 86; RESP 16; O2SAT 100
--- NOTE | 2024-07-19 13:49 | PRO.PCM_ITS ---
Procedure Report Date of Procedure: 07/19/24 Assessment & Plan Assessment/Plan (1) Ascites: QUALIFIERS: Ascites type: malignant Qualified Code(s): R18.0 - Malignant ascites PLAN: PROCEDURE: Ultrasound guided paracentesis ORDERING PROVIDER: Dr. Lenz INDICATION: Female, 58 years old. Malignant ascites. PROVIDER: MAKAYLA Poe TECHNIQUE: The risks, benefits, and alternatives to the procedure were explained to the patient. The specific risks of bleeding, infection, and damage to bowel were detailed and accepted. Witnessed informed consent was obtained. The abdomen was ultrasonographically surveyed. An appropriate pocket of fluid was identified in the left lower quadrant. The skin was prepped with chlorhexidine and sterile field established. 2% lidocaine was used for local anesthetic. Using ultrasound guidance, the peritoneal cavity was accessed with a 5-Bel[place]ian paracentesis needle/catheter system. The trocar was removed. A total of 1800 ml of clear yellow colored fluid was removed from the peritoneal cavity. The catheter was removed and a sterile dressing was applied. The procedure was well tolerated. IMPRESSION: Successful ultrasound guided paracentesis with left lower quadrant access site. Procedures Radiology Radiology US Procedures: [id number] Paracentesis
== END | disposition home or self-care (01) ==
LOC: US 12:49
PROVIDERS: PCP Family Medicine; Referring Provider Internal Medicine Hematology & Oncology; Visit Provider Internal Medicine Hematology & Oncology
DX: C78.6 Secondary malignant neoplasm of retroperitoneum and peritoneum (principal); C56.9 Malignant neoplasm of unspecified ovary; R18.8 Other ascites
CPT/HCPCS: 49083

== ENCOUNTER 2024-07-23 17:09 | Inpatient (IN) | payer OTHER, SELFPAY ==
[2024-07-23] VITALS (9 sets, daily range): BP systolic 102–117; BP diastolic 68–82; PULSE 66–146; RESP 10–22; TEMP 36.5–36.8; O2SAT 95–100; BMI 16.4; BMI 16.5
--- NOTE | 2024-07-23 17:37 | CT_ITS ---
We are attempting to reach an attending provider to discuss findings. An addendum with communication details will be sent when the communication is complete. EXAM: CT ANGIOGRAPHY CHEST WITHOUT AND WITH INTRAVENOUS CONTRAST CLINICAL INDICATION: Assess for PE TECHNIQUE: Helically acquired angiography images were obtained of the chest without and with intravenous contrast. This CT exam was performed using one or more of the following dose reduction techniques: automated exposure control, adjustment of the mA and/or kV according to patient size, and/or use of iterative reconstruction technique. MIP reconstructed images were created and reviewed. CONTRAST: IV 75mL Isovue-370 RADIATION DOSE: CTDIvol = 10.59 mGy, DLP = 126.28 mGy-cm. COMPARISON: July 28, 2022 CTA chest, chest radiograph December 07, 2023 showing mild to moderate right effusion and right clavian Nwxnla-h-Pwta catheter. FINDINGS: PULMONARY ARTERIES: Positive for PE, including thin nonocclusive branching PE across the distal left main pulmonary artery extending slightly into the proximal lower lobe artery origin, and a mild but more bulky component of clot in the adjacent proximal left anterior segmental upper lobe artery. Best seen on axial images 146 through 131. The distal vessels are normal in size and enhance normally. Normal in caliber. AORTA: Unremarkable. Normal in caliber. No evidence of dissection. GREAT VESSELS OF AORTIC ARCH: Unremarkable. Normal in caliber. No evidence of dissection. LUNGS AND PLEURAL SPACES: Mildly more prominent slightly denser larger and irregular groundglass nodular opacity of roughly 1 cm x 0.9 cm x 1.1 cm in the superior-lateral left upper lobe compared to July 28, 2022 but there was a smaller groundglass opacity. New from 2021 but irregular and elongated anterior left upper lobe nodular opacity of roughly 8 mm x 5 mm x 7 mm. There is a prominent loculated predominantly subpulmonic right pleural effusion with mildly thickened ellis, not simple and freely dependent. Severe bullous emphysematous change of the lung apices and to a lesser extent elsewhere. Mild airway thickening. No mass. HEART: No intracardiac filling defect. Apparent stent in right coronary artery. Normal heart size. No pericardial effusion. MEDIASTINUM: A few minimally prominent mediastinal lymph nodes appear similar compared to prior exam. Esophagus is unremarkable. No hiatal hernia. THYROID: Unremarkable. No thyroid lesions. BONES/JOINTS: Unremarkable. No suspicious lytic or blastic abnormality. INTRAPERITONEAL SPACE: There is moderate loculated nondependent ascites the left subdiaphragmatic region and trace loculated fluid extending over the liver, and/or loculated fluid in the cortes of the liver. The pancreas is not fully included. Mild increased soft tissue density in the gastrohepatic region, presumed adenopathy. Most of the abdomen is not included. TUBES, LINES AND DEVICES: Adequately positioned right jugular Lxxuoa-o-Neqv catheter. CT/CTA Chest W/WO Contrast IMPRESSION: 1. Positive for PE but mild. Including branching and thin PE extending over the left main pulmonary artery bifurcation and a contiguous milder bulkier and rounder small component in left upper lobe proximal segmental branching. Nonocclusive. 2. Moderate-large loculated nonsimple subpulmonic right pleural effusion, suggesting exudate. Possible malignant effusion. 3. Advanced COPD. 4. 2 nodular opacities in the left upper lobe including mildly larger irregular predominantly groundglass nodule and smaller but solid and new ovoid nodule. Either or both may be primary or metastatic disease or other etiology. 5. Loculated and complex-appearing left subdiaphragmatic-perisplenic fluid collection. Increased loculated perihilar-perihepatic fluid. Increased gastrohepatic adenopathy. Electronically Signed: Isis Campos MD at 18:54 EDT ,
--- NOTE | 2024-07-23 17:38 | EKG12_ITS ---
Test Reason : CP Blood Pressure : */* mmHG Vent. Rate : 73 BPM Atrial Rate : 73 BPM P-R Int : 116 ms QRS Dur : 78 ms QT Int : 392 ms P-R-T Axes : 90 82 75 degrees QTcB Int : 431 ms Normal sinus rhythm Normal ECG When compared with ECG of 23-Jul-2024 17:16, No significant change was found Confirmed by Ismael Choudhury ([id number]), newspaper editor managing LADY BELTRE ([id number]) on 09/09/2024 9:57:03 AM Referred By: Confirmed By: Ismael Choudhury
--- NOTE | 2024-07-23 17:43 | ED.VIS.CHEST ---
HPI History of Present Illness Chief Complaint: Palpitations Narrative Narrative: Chief complaint and HPI: Tachycardia and shortness of breath. 58-year-old female with history of ovarian cancer on chemotherapy since 2021 presents for evaluation of tachycardia and shortness of breath. Patient states yesterday she woke up with shortness of breath that has progressively worsened. She states that last week she was taken off of infusion chemotherapy and placed on Etoposide 50 mg daily for oral chemotherapy. Patient endorses tachycardia with ambulation but not at rest. Shortness of breath is worse with exertion. She denies any fever, chills, URI symptoms, chest pain, cough, abdominal pain, nausea, vomiting, diarrhea. Patient states that she has been having some intermittent pain and swelling in the left lower extremity. She has a history of DVT years ago but is not on any coagulation. Review of systems: See HPI Medications: As listed on the chart Allergies: As listed on the chart PFSH: Per chart Vital signs: As listed on the chart. Reviewed. Physical exam: Gen: A&O x3, NAD Head: Normocephalic, atraumatic Eyes: No sclera icterus, conjunctiva clear ENT: Moist mucous membranes Neck: Trachea midline, No JVD CV: RRR, no murmurs, no peripheral edema Resp: Lungs CTA BL, no w/r/c GI: Abd soft, non-distended, non-tender, no r/r/g Musc: Full ROM, no deformity, left calf is tender to palpation-mild swelling of the left ankle and foot compared to the right Skin: Warm, dry Neuro: Alert, oriented, grossly intact, sensation intact Psych: Cooperative, appropriate mood and affect [facility] Medical History Ascites Port-A-Cath in place Wears glasses Depression Anxiety Bladder disease Low iron Dietary restriction Former smoker COPD (chronic obstructive pulmonary disease) Emphysema, unspecified Shortness of breath on exertion Cardiology follow-up encounter History of heart attack Heart palpitations Incidental lung nodule, greater than or equal to 8mm Ovarian cancer Elevated CA-125 Post-menopausal Syncope Smoker HLD (hyperlipidemia) Unexplained weight loss Abdominal pain Atherosclerotic heart disease of [place] coronary artery without angina pectoris Tobacco use COVID-19 (09/04/21) Acute ST elevation myocardial infarction (STEMI) (09/13/21) Hx of blood clots Home Medications ?Medication ?Instructions ?Recorded ?Last Taken ?Type aspirin 81 mg tablet,delayed 81 mg PO DAILY 10/31/22 02/20/23 History release (Adult Aspirin Regimen) cholecalciferol (vitamin D3) 125 125 mcg PO DAILY 02/16/23 02/20/23 History mcg (5,000 unit) capsule duloxetine 20 mg capsule,delayed 30 mg PO DAILY 09/12/23 Unknown History release (Cymbalta) etoposide 50 mg capsule 50 mg PO DAILY 07/23/24 Unknown History sennosides 8.6 mg-docusate sodium 2 tab PO BID 07/23/24 Unknown History 50 mg tablet (Stimulant Laxative Plus) Allergy/AdvReac Type Severity Reaction Status Date / Time hydromorphone (From Dilaudid) Allergy Intermediate Hives Verified 07/23/24 17:11 sulfamethoxazole (From Allergy Hives Verified 07/23/24 17:11 Bactrim) trimethoprim (From Bactrim) Allergy Hives Verified 07/23/24 17:11 atorvastatin AdvReac Severe Several Verified 07/23/24 17:11 UTI's, diarrhea, poor appetite metoprolol AdvReac Severe Severe Verified 07/23/24 17:11 diarrhea and fatigue Opioids - Morphine Analogues AdvReac NAUSEA AND Verified 07/23/24 17:11 (narcotics) VOMITING Family History Grandmother Cancer Ovarian Grandfather Cancer Lung Heart disease Mother Thyroid disorder Sister Thyroid disorder Sister Thyroid disorder Sister Thyroid disorder Colon cancer Father Hypertension Heart disease Surgical History History of total hysterectomy S/P tubal ligation H/O cardiac catheterization History of coronary artery stent placement (09/13/21) History of elbow surgery Social History household members: none Smoking Status: Former smoker quit status: considering quitting alcohol intake: current alcohol intake frequency: holidays/special occasions only details: rarely substance use type: does not use caffeine: No EXAM Physical Exam Const Vital Signs: 07/23/24 17:09 07/23/24 18:13 07/23/24 19:00 Temperature 97.7 F L 98.2 F Temperature Source Oral Pulse Rate 146 H 133 H 70 Respiratory Rate 22 H 12 Blood Pressure 104/79 102/74 Blood Pressure Mean 87 83 Pulse Ox 99 97 Oxygen Delivery Method Room Air MDM MDM MDM Narrative Medical decision making narrative: 58-year-old female presents for evaluation of shortness of breath and tachycardia. She has known ovarian cancer on chemotherapy. Differential diagnosis includes but is not limited to PE, pneumonia, CHF, side effect from chemotherapy, electrolyte abnormality, DVT. On presentation, patient's heart rate was 146 however while sitting at rest and during my examination she is at a normal rate. Cardiac workup ordered including CTA chest to assess for PE and ultrasound of the left lower extremity to assess for DVT. CBC without leukocytosis. Patient has anemia with a hemoglobin of 9.4 as well as thrombocytosis with a platelet count of 455. Coagulation panel unremarkable. Patient has RENETTA with a creatinine of 1.14. Fluids ordered but patient declined. Troponin unremarkable x 2. BNP unremarkable. TSH unremarkable. Magnesium level unremarkable. Venous duplex ultrasound shows a extensive deep venous thrombosis extending from the common femoral vein to the popliteal. CTA chest shows small PE. She has a moderate large loculated subpulmonic right pleural effusion suspect malignant etiology. She has 2 nodular opacities in the left upper lobe. She has loculated and complex appearing left subdiaphragmatic perisplenic fluid collection. Patient states she did receive a paracentesis approximately a week ago for ascites. Heparin drip started for PE and DVT. Given extensive clot burden of the left lower extremity, vascular surgery was contacted and I spoke with Dr. Harrison. He will see the patient in consult. Patient will warrant admission. Will likely need thoracentesis. Hospitalist service was contacted and patient was discussed. Dr. Gallagher accepted admission. Patient was updated of all results and the plan. She confirmed understanding EKG: Interpreted by me/EM physician: EKG shows normal sinus rhythm without any acute ischemic changes. Heart rate 89. Impression: 1. Pulmonary embolism 2. Extensive left lower extremity DVT 3. RENETTA 4 Anemia 5 Thrombocytosis 6. Moderate large loculated right pleural effusion 7. Pulmonary nodules 8. Loculated and complex appearing left subdiaphragmatic perisplenic fluid collection Lab Data Labs: Laboratory Results - last 24 hr 07/23/24 17:45 WBC 6.7 RBC 3.58 L Hgb 9.4 L Hct 29.4 L MCV 82.1 MCH 26.3 L MCHC 32.0 RDW Std Deviation 56.0 H RDW Coeff of Nicholas 19.5 H Plt Count 455 H MPV 9.6 Immature Gran % (Auto) 0.600 Neut % (Auto) 77.6 H Lymph % (Auto) 15.3 L Story % (Auto) 4.4 Eos % (Auto) 1.2 Baso % (Auto) 0.9 Absolute Neuts (auto) 5.2 Absolute Lymphs (auto) 1.02 Nucleated RBC % 0 PT 14.1 INR 1.1 APTT 25.3 Sodium 136 Potassium 4.1 Chloride 101 Carbon Dioxide 25.0 Anion Gap 10 BUN 16 Creatinine 1.14 H Estim Creat Clear Calc 41.68 Est GFR (MDRD) Af Amer 63 Est GFR (MDRD) Non-Af 52 L BUN/Creatinine Ratio 14.0 Glucose 124 H Calcium 9.6 Magnesium 1.7 Total Bilirubin 0.40 Direct Bilirubin 0.11 AST 15 ALT 15 Alkaline Phosphatase 79 Troponin I High Sens < 3 L B-Natriuretic Peptide 49.8 Total Protein 7.4 Albumin 3.3 Globulin 4.1 TSH 1.670 Radiography Diagnostic Testing: Clinical Impression(s) from Imaging Studies Chest CTA 07/23/24 17:37 IMPRESSION: 1. Positive for PE but mild. Including branching and thin PE extending over the left main pulmonary artery bifurcation and a contiguous milder bulkier and rounder small component in left upper lobe proximal segmental branching. Nonocclusive. 2. Moderate-large loculated nonsimple subpulmonic right pleural effusion, suggesting exudate. Possible malignant effusion. 3. Advanced COPD. 4. 2 nodular opacities in the left upper lobe including mildly larger irregular predominantly groundglass nodule and smaller but solid and new ovoid nodule. Either or both may be primary or metastatic disease or other etiology. 5. Loculated and complex-appearing left subdiaphragmatic-perisplenic fluid collection. Increased loculated perihilar-perihepatic fluid. Increased gastrohepatic adenopathy. Electronically Signed: Isis Campos MD at 18:54 EDT Reading Location ID and State: [facility] / [place] Tel , Service support , ADDENDUM: 07/23/24 1904 IMPRESSION: 1. Positive for PE but mild. Including branching and thin PE extending over the left main pulmonary artery bifurcation and a contiguous milder bulkier and rounder small component in left upper lobe proximal segmental branching. Nonocclusive. 2. Moderate-large loculated nonsimple subpulmonic right pleural effusion, suggesting exudate. Possible malignant effusion. 3. Advanced COPD. 4. 2 nodular opacities in the left upper lobe including mildly larger irregular predominantly groundglass nodule and smaller but solid and new ovoid nodule. Either or both may be primary or metastatic disease or other etiology. 5. Loculated and complex-appearing left subdiaphragmatic-perisplenic fluid collection. Increased loculated perihilar-perihepatic fluid. Increased gastrohepatic adenopathy. N.B. : The above Results were Read Back by Isis Campos MD to Zackery Frederick DO, and understanding confirmed on 07/23/2024 18:57:59 (ET). Electronically Signed: Isis Campos MD at 18:54 EDT , Venous Duplex 07/23/24 17:45 IMPRESSION: Extensive deep venous thrombosis extending from the common femoral vein to the popliteal. Electronically Signed: Mainor Henry MD at 18:44 EDT , Discharge Plan Disposition Disposition: Acute Care Hospital [facility] Discharge Date/Time: 07/23/24 22:11
--- NOTE | 2024-07-23 17:45 | US_ITS ---
STUDY: VENOUS DOPPLER ULTRASOUND - LEFT LOWER EXTREMITY REASON FOR EXAM: Female, 58 years old. LT LEG PAIN, HX OF CA TECHNIQUE: Ultrasound evaluation of the deep vein system to include neville-scale imaging and compression was performed. Neville-scale imaging and Doppler sonographic evaluation, including duplex spectral analysis and qualitative color flow sonography, was performed. COMPARISON: January 02, 2020 FINDINGS: There is noncompressibility of the common femoral, superficial femoral, and popliteal . Veins demonstrating internal echoes consistent with extensive deep venous thrombosis Posterior Tibial Vein: Normal compression, spontaneity and augmentation. Normal color Doppler. Peroneal Vein: Normal compression, spontaneity and augmentation. Normal color Doppler. US/Venous Duplex Imag/Limited/Uni IMPRESSION: Extensive deep venous thrombosis extending from the common femoral vein to the popliteal. Electronically Signed: Mainor Henry MD at 18:44 EDT ,
[2024-07-23 17:58] LABS: Absolute Lymphocyte Count 1.02 X10^3/uL (0.83-4.51); Absolute Neutrophil Count 5.2 X10^3/uL (2.0-7.7); Basophil# 0.06 X10^3/uL; Basophil% 0.9 % (0-1); Eosinophil# 0.08 X10^3/uL; Eosinophils% 1.2 % (0-5); Hematocrit 29.4 % (37-47); Hemoglobin 9.4 g/dL (12.0-15.0); Lymphocyte # 1.02 X10^3/ul (0.83-4.51); Lymphocyte % 15.3 % (19-41); Mean Corpuscular Hgb 26.3 pg (27.0-32.0); Mean Corpuscular Volume 82.1 fL (81-99); Mean Platelet Vol. 9.6 fl (6.2-12.0); Monocyte# 0.29 X10^3/uL; Monocyte% 4.4 % (0-10); NRBC Flagged by Analyzer 0 % (0-5); Neutrophil # 5.16 X10^3/uL (2.7-7.7); Neutrophil % 77.6 % (47-70); Platelet Count 455 K/mm3 (150-450); RBC Distribution Width CV 19.5 % (11.6-14.6); Red Blood Count 3.58 M/mm3 (4.2-5.4); White Blood Count 6.7 K/mm3 (4.4-11.0)
[2024-07-23 18:12] LABS: International Normalized Ratio 1.1; Prothrombin Time (Protime)PT. 14.1 SECONDS (11.7-14.9)
[2024-07-23 18:13] LABS: Partial Thromboplast Time 25.3 Seconds (24.1-36.2)
[2024-07-23 18:18] LABS: BNP,B-Type NATRIURETIC PEPTIDE 49.8 pg/mL (0-100)
[2024-07-23 18:24] LABS: Anion Gap 10 (5-15); BUN 16 mg/dL (7-18); Calcium,Total 9.6 mg/dL (8.5-10.1); Chloride 101 mmol/L (98-107); Creatinine, Serum 1.14 mg/dL (0.55-1.02); EST Glomerular Filtration Rate 52 mL/min (>60); Est Glom Filt Rate - Afr Amer 63 mL/min (>60); Estimated Creatinine Clearance 41.68 ml/min; Glucose 124 mg/dL (74-106); Magnesium 1.7 mg/dL (1.6-2.6); Potassium 4.1 mmol/L (3.5-5.1); Sodium Level 136 mmol/L (136-145); Troponin-I HS (w/2H Reflex) < 3 pg/mL (3.0-54.0)
[2024-07-23] MEDS: Heparin Injection (Vial) 5,000 UNIT/ML VIAL 3500 UNIT IV (19:22)
[2024-07-23] MEDS: HEPARIN/D5w 25,000 UNITS 25,000 UNITS/250 ML IV.SOLN. 7 UNITS CONT INF (19:23)
--- NOTE | 2024-07-23 19:29 | PCM.HP.STD ---
[facility] - General General Date of Admission: 07/23/24 Date of Service: 07/23/24 Chief Complaint: Shortness of breath for about 2 days progressive worsening. Left leg swelling. HPI Narrative EVELYN HARVEY, is a 58 F with history of ovarian cancer on chemotherapy came to ED for progressive worsening of shortness of breath for last 2 days. She states her left lower extremity for some time and now getting more intermittent pain. She was diagnosed ovarian cancer 2 years ago, follows Dr. Bairon Lenz she was on IV chemotherapy infusion since diagnosis till a week ago when she was switched to oral chemotherapy. Last , Monday she started having vomiting 4-5 times for last 2 days and then on Monday she was more short of breath. She she is very functional and still works full-time therefore she went on work on Monday but she felt short of breath and called her PCP. She instructed her to go to ED. She denies chest pain, palpitation, fever, URI symptoms. She had CAD/NSTEMI and a stent in August 2021 in RCA, EF 60% and follows phlebotomy director Dr. barrientos last seen 2 months ago Vitals reviewed. In ED, patient was in sinus tachycardia heart rate 140s 6.1, RR 22/min. BP 100/79. No hypoxia. Venous duplex and PE shows left lower extremity diffuse DVT and left-sided PE. Patient started on IV heparin drip, vascular surgeon consulted and further admitted Patient history of 30 pack years of smoking but has quit [facility] Medical History Ascites Port-A-Cath in place Wears glasses Depression Anxiety Bladder disease Low iron Dietary restriction Former smoker COPD (chronic obstructive pulmonary disease) Emphysema, unspecified Shortness of breath on exertion Cardiology follow-up encounter History of heart attack Heart palpitations Incidental lung nodule, greater than or equal to 8mm Ovarian cancer Elevated CA-125 Post-menopausal Syncope Smoker HLD (hyperlipidemia) Unexplained weight loss Abdominal pain Atherosclerotic heart disease of [place] coronary artery without angina pectoris Tobacco use COVID-19 (09/04/21) Acute ST elevation myocardial infarction (STEMI) (09/13/21) Hx of blood clots Home Medications ?Medication ?Instructions ?Recorded ?Last Taken ?Type aspirin 81 mg tablet,delayed 81 mg PO DAILY 01/16/23 05/08/23 History release (Adult Aspirin Regimen) cholecalciferol (vitamin D3) 125 125 mcg PO DAILY 02/16/23 02/20/23 History mcg (5,000 unit) capsule duloxetine 20 mg capsule,delayed 30 mg PO DAILY 09/12/23 Unknown History release (Cymbalta) etoposide 50 mg capsule 50 mg PO DAILY 07/23/24 Unknown History sennosides 8.6 mg-docusate sodium 2 tab PO BID 07/23/24 Unknown History 50 mg tablet (Stimulant Laxative Plus) Allergy/AdvReac Type Severity Reaction Status Date / Time hydromorphone (From Dilaudid) Allergy Intermediate Hives Verified 07/23/24 17:11 sulfamethoxazole (From Allergy Hives Verified 07/23/24 17:11 Bactrim) trimethoprim (From Bactrim) Allergy Hives Verified 07/23/24 17:11 atorvastatin AdvReac Severe Several Verified 07/23/24 17:11 UTI's, diarrhea, poor appetite metoprolol AdvReac Severe Severe Verified 07/23/24 17:11 diarrhea and fatigue Opioids - Morphine Analogues AdvReac NAUSEA AND Verified 07/23/24 17:11 (narcotics) VOMITING Family History Grandmother Cancer Ovarian Grandfather Cancer Lung Heart disease Mother Thyroid disorder Sister Thyroid disorder Sister Thyroid disorder Sister Thyroid disorder Colon cancer Father Hypertension Heart disease Surgical History History of total hysterectomy S/P tubal ligation H/O cardiac catheterization History of coronary artery stent placement (09/13/21) History of elbow surgery Social History household members: none Smoking Status: Former smoker quit status: considering quitting alcohol intake: current alcohol intake frequency: holidays/special occasions only details: rarely substance use type: does not use caffeine: No ROS ROS Narrative Constitutional: Reports fatigue and weakness. No fever. HEENT: Reports systems reviewed and no addt'l complaints, except as documented Respiratory/Chest: As described in HPI. Mild chronic BORJAS because of weakness and chemotherapy. History of COPD. No wheezing. CVS: No chest pain. CAD/stent as described in HPI Gastrointestinal: No GI bleed. Had paracentesis last week. Rest as described in HPI Genitourinary: Denies burning urination or new urinary tract symptoms Musculoskeletal: Denies acute joint pain or limited range of motion. No acute injury Neurologic: Denies seizure-like symptoms. skin: No ulcer. No rash Endocrinology: Reports systems reviewed and no addt'l complaints, except as documented Hematologic/Lymphatic: Reports systems reviewed and no addt'l complaints, except as documented Rest 14 ROS are negative except as mentioned in HPI Vital Signs Vital Signs Vital Signs: 07/23/24 17:09 07/23/24 18:13 07/23/24 19:00 Temperature 97.7 F L 98.2 F Temperature Source Oral Pulse Rate 146 H 133 H 70 Respiratory Rate 22 H 12 Blood Pressure 104/79 102/74 Blood Pressure Mean 87 83 Pulse Ox 99 97 Oxygen Delivery Method Room Air Weight Weight: 108 lb 3.2 oz Body Mass Index (BMI) 16.4 Physical Exam Narrative General: Alert, Oriented x3, Cooperative, thin built, BMI 16.5 kg/m? HEENT: Atraumatic, PERRLA, EOMI, Normocephalic Oral: No Gingival or Mucosal Lesions/ Ulcerations Neck: Supple, No JVD, Negative Carotid Bruits Chest wall/Lungs: Right chest wall Mediport air entry diminished in right lung base. Moderate right pleural effusion, chronic. No crepitation/ Cardiovascular: Sinus rhythm, Normal S1, Normal S2, No M/G/R Abdomen: Bowel Sounds Present, Soft, Non Tender, Non-Distended : No dysuria. No renal angle tenderness. No suprapubic tenderness. Extremities: No edema, Capillary Refill Less than 3 Seconds Skin: No rashes, No breakdown Musculoskeletal: No Tenderness to Palpation of Joints or Extremities. Moderate chronic atrophy of muscles of extremities, loss of subcutaneous fat, moderate chronic protein calorie manage Neurological: Cranial nerves II-XII grossly intact, DTR 2+/4. No acute focal neurological deficit. Psych/Mental Status: Normal Affect, Appropriate. Results Lab / Micro Data 07/23/24 17:45 07/23/24 17:45 Labs: Laboratory Results - last 24 hr 07/23/24 17:45: WBC 6.7, RBC 3.58 L, Hgb 9.4 L, Hct 29.4 L, MCV 82.1, MCH 26.3 L, MCHC 32.0, RDW Std Deviation 56.0 H, RDW Coeff of Nicholas 19.5 H, Plt Count 455 H, MPV 9.6, Immature Gran % (Auto) 0.600, Neut % (Auto) 77.6 H, Lymph % (Auto) 15.3 L, Maries % (Auto) 4.4, Eos % (Auto) 1.2, Baso % (Auto) 0.9, Absolute Neuts (auto) 5.2, Absolute Lymphs (auto) 1.02, Nucleated RBC % 0, PT 14.1, INR 1.1, APTT 25.3, Sodium 136, Potassium 4.1, Chloride 101, Carbon Dioxide 25.0, Anion Gap 10, BUN 16, Creatinine 1.14 H, Estim Creat Clear Calc 41.68, Est GFR (MDRD) Af Amer 63, Est GFR (MDRD) Non-Af 52 L, BUN/Creatinine Ratio 14.0, Glucose 124 H, Calcium 9.6, Magnesium 1.7, Troponin I High Sens < 3 L, B-Natriuretic Peptide 49.8, TSH 1.670 Imaging Radiology Impression Chest CTA 07/23/24 17:37 IMPRESSION: 1. Positive for PE but mild. Including branching and thin PE extending over the left main pulmonary artery bifurcation and a contiguous milder bulkier and rounder small component in left upper lobe proximal segmental branching. Nonocclusive. 2. Moderate-large loculated nonsimple subpulmonic right pleural effusion, suggesting exudate. Possible malignant effusion. 3. Advanced COPD. 4. 2 nodular opacities in the left upper lobe including mildly larger irregular predominantly groundglass nodule and smaller but solid and new ovoid nodule. Either or both may be primary or metastatic disease or other etiology. 5. Loculated and complex-appearing left subdiaphragmatic-perisplenic fluid collection. Increased loculated perihilar-perihepatic fluid. Increased gastrohepatic adenopathy. Electronically Signed: Isis Campos MD at 18:54 EDT , ADDENDUM: 07/23/24 [id number] IMPRESSION: 1. Positive for PE but mild. Including branching and thin PE extending over the left main pulmonary artery bifurcation and a contiguous milder bulkier and rounder small component in left upper lobe proximal segmental branching. Nonocclusive. 2. Moderate-large loculated nonsimple subpulmonic right pleural effusion, suggesting exudate. Possible malignant effusion. 3. Advanced COPD. 4. 2 nodular opacities in the left upper lobe including mildly larger irregular predominantly groundglass nodule and smaller but solid and new ovoid nodule. Either or both may be primary or metastatic disease or other etiology. 5. Loculated and complex-appearing left subdiaphragmatic-perisplenic fluid collection. Increased loculated perihilar-perihepatic fluid. Increased gastrohepatic adenopathy. N.B. : The above Results were Read Back by Isis Campos MD to Zackery Frederick DO, and understanding confirmed on 07/23/2024 18:57:59 (ET). Electronically Signed: Isis Campos MD at 18:54 EDT , Venous Duplex 07/23/24 17:45 IMPRESSION: Extensive deep venous thrombosis extending from the common femoral vein to the popliteal. Electronically Signed: Mainor Henry MD at 18:44 EDT , Assessment & Plan Assessment/Plan (1) Acute pulmonary embolism: (2) DVT (deep venous thrombosis): PLAN: Plan This 58-year-old female with history of ovarian cancer on chemotherapy being admitted with shortness of breath, sinus tachycardia and found to have new onset pulmonary embolism and DVT 1. Mild partial pulmonary embolism involving left main pulmonary artery bifurcation and contiguous lobe proximal segmental branching, nonocclusive and left lower extremity extensive DVT: Twelve-lead done in ED is individually reviewed. Sinus rhythm, 89 bpm, short MN interval. QTc 420 ms. Patient initially was in sinus tachycardia about 140 beats. But currently is in 80s to 90s. CT angiogram initially reviewed and as described above. Patient also had venous duplex of lower extremity which reported extensive diffuse DVT extending from the common femoral vein to popliteal. Patient had DVT during when she was about 20-year-old and completed treatment till she was . She was told that it is provoked from Initially patient started on IV heparin drip but discussed with Dr. Travis Harrison, vascular surgeon who is also consulted. After discussion we decided to switch to enoxaparin 1 mg Q12 hourly for continuous therapeutic level. No plan for catheter directed intervention. Troponin and BNP normal. 2D echo ordered for tomorrow 2. Chronic right loculated moderate pleural effusion, malignant effusion: Patient has chronic right loculated pleural effusion which is moderate size. She had thoracocentesis a year ago and was malignant effusion. It is reported as subpulmonic, loculated right pleural effusion with mildly thickened wall, not freely dependent or simple. Therefore probably not good candidate for thoracocentesis and also she has malignant effusion 4. Ascites probably malignant ascites: She recently had paracentesis on 07/19/2024. She had 1800 mL of clear yellow-colored fluid removed. She is scheduled monthly paracentesis with IR 5. COPD: Had PFT in February 2023 reported irreversible mild large airway obstructive ventilatory impairment with preserved lung volumes and diffusion capacity. She follows in pulmonary clinic. She had about 30 pack years of smoking. She quit smoking of her diagnosis of CA ovary 6. CAD/history of STEMI in August 2021 status post RCA stent: Follows phlebotomy director Dr. Barrientos. Home medications continued. First troponin negative. Second troponin ordered. BNP normal. 7. Ovarian cancer with malignant effusion and ascites: Patient follows Dr. Bairon Lenz. Recently switched to oral chemotherapy about a week ago. She was last admitted in June 2022 with intractable abdominal pain and ascites. 8. Hypertension: Blood pressure is on lower side. She was on antihypertensive medication before but currently her blood pressure in normal limit. 9. Hyperlipidemia: continue patient home Zetia regimen, statin intolerance history. 10. History of VTE: As mentioned above Living will/advanced directive/end of life care: Patient does not have living will or advanced directive. She does not have designated power of personal injury attorney for health but her son present in ED, is next of kin. After discussion of benefits/risks procedures involved with full code, DNR CC arrest and DNR CC, the patient opted for full code. Patient does want artificial life support including intubation, tube feed, ventilator and/chest compression, central venous catheter, vasopressor and DC shock if needed Total time spent in [id number] encounter in discussion of advanced directive 17 minutes. Charges/Coding Visit Charges Inpatient E&M: 72627 Init Hosp L3 Procedures Hospitalists Procedures: 48172 Advncd Care Plan 30 Min
[2024-07-23 19:55] LABS: Reflex Troponin-HS? (from REC) Y
[2024-07-23 19:59] LABS: AST(SGOT) 15 U/L (15-37); Alanine Aminotransfer ALT/SGPT 15 U/L (13-56); Albumin, Serum 3.3 g/dL (3.2-5.0); Alkaline Phosphatase 79 U/L (45-117); Bilirubin, Direct 0.11 mg/dL (0.00-0.30); Globulin 4.1 g/dL (2.2-4.2); Protein, Total 7.4 g/dL (6.4-8.2)
[2024-07-23 20:43] LABS: Troponin-I HS 3 pg/mL (3.0-54.0)
[2024-07-23] MEDS: Enoxaparin 60 MG/0.6 ML Syringe 50 MG SC (23:03)
[2024-07-24 01:16] LABS: Troponin-I HS 6 pg/mL (3.0-54.0)
[2024-07-24 04:30] VITALS: BP 103/62; PULSE 72; RESP 18; TEMP 36.7; O2SAT 97
[2024-07-24] MEDS: Enoxaparin 60 MG/0.6 ML Syringe 50 MG SC ×2 (06:07→16:58)
[2024-07-24 06:19] LABS: Absolute Lymphocyte Count 0.84 X10^3/uL (0.83-4.51); Absolute Neutrophil Count 1.9 X10^3/uL (2.0-7.7); Basophil# 0.04 X10^3/uL; Basophil% 1.3 % (0-1); Eosinophil# 0.14 X10^3/uL; Eosinophils% 4.4 % (0-5); Hematocrit 23.8 % (37-47); Hemoglobin 7.6 g/dL (12.0-15.0); Lymphocyte # 0.84 X10^3/ul (0.83-4.51); Lymphocyte % 26.7 % (19-41); Mean Corp Hgb Conc 31.9 g/dL (32-36); Mean Corpuscular Hgb 26.5 pg (27.0-32.0); Mean Corpuscular Volume 82.9 fL (81-99); Mean Platelet Vol. 9.3 fl (6.2-12.0); Monocyte# 0.22 X10^3/uL; NRBC Flagged by Analyzer 0 % (0-5); Neutrophil % 60.3 % (47-70); Platelet Count 368 K/mm3 (150-450); RBC Distribution Width CV 19.7 % (11.6-14.6); RBC Distribution Width SD 56.3 fl (35.1-43.9); Red Blood Count 2.87 M/mm3 (4.2-5.4); White Blood Count 3.2 K/mm3 (4.4-11.0)
[2024-07-24 06:43] LABS: Anion Gap 6 (5-15); BUN 14 mg/dL (7-18); BUN/Creat Ratio 18.1 RATIO (10-20); Calcium,Total 8.7 mg/dL (8.5-10.1); Chloride 103 mmol/L (98-107); Creatinine, Serum 0.78 mg/dL (0.55-1.02); EST Glomerular Filtration Rate 81 mL/min (>60); Est Glom Filt Rate - Afr Amer 98 mL/min (>60); Estimated Creatinine Clearance 59.57 ml/min; Glucose 98 mg/dL (74-106); Potassium 3.7 mmol/L (3.5-5.1); Sodium Level 136 mmol/L (136-145)
--- NOTE | 2024-07-24 09:45 | CASEMGMT ---
RN CM Face to Face with patient for initial transition planning/care coordination assessment. RN CM introduced self and role at [facility]. Patient lying in bed, alert and oriented. Patient willing to participate in assessment and is able to answer all questions appropriately. Care providers, pharmacy, and demographics verified. Strata: 2 PCP: Kimberlyn Specialists: Delfin, oncologist; Preferred Pharmacy: [facility] Insurance: MMO, [employer] Prescription Benefit: yes Living Will/HPOA: none, interested in completing, SW notified LNOK: son, daughter Living Arrangements: Patient lives alone in a 3 story condo. Patient states she is independent and able ambulate stairs. Transportation: self, children DME/HHC: Patient denies DME in the home. No previous HHC or SNF. Patient wishes to discharge home, denies need for home health at this time. Patient states she has no further needs or concerns at this time. CM to follow for discharge planning needs that may arise. Disposition Plan: Patient to discharge home with family support and follow-up plans in place. Caridad SOMMER, RN, CM
[2024-07-24 10:30] VITALS: BP 95/68; PULSE 70; RESP 16; TEMP 36.7; O2SAT 99
[2024-07-24] MEDS: Aspirin E.C. 81 MG Tablet PO (10:34)
[2024-07-24] MEDS: Senna/Docusate Sodium 1 Tablet 2 TABLET PO (10:35)
[2024-07-24] MEDS: Cholecalciferol (Vit D3) 125 MCG CAPSULE (5,000 UNITS) PO (10:36)
[2024-07-24] MEDS: DULoxetine Hcl 30 MG Capsule PO (10:36)
--- NOTE | 2024-07-24 11:28 | ECHOD_ITS ---
Reason For Study: Emboli Procedure This was a 2D Doppler, Color Flow transthoracic echocardiogram. Myocardial strain analysis was performed in this exam to aid in the assessment of cardiac function. Exam performed portable in patient room. Left Ventricle Normal LV size. Left ventricular systolic function is normal. The left ventricular ejection fraction is 60 %. Normal diastology for age. No regional wall motion abnormalities noted. Right Ventricle Normal RV size. Normal systolic function. Atria Normal left atrium. Normal right atrium. Mitral Valve Normal mitral valve. Tricuspid Valve Normal tricuspid valve. Mild tricuspid valve insufficiency. Pulmonary artery systolic pressure is 24 mmHg. Aortic Valve Trisinus/trileaflet aortic valve. Pulmonic Valve Normal pulmonic valve. Great Vessels Normal aortic root. The pulmonary artery is normal size. Normal inferior vena cava. Pericardium/Pleural No pericardial effusion. MMode/2D Measurements & Calculations LVIDd: 3.8 cm IVSd: 0.77 cm LA dimension: 3.4 cm LVIDs: 2.3 cm LVPWd: 0.85 cm RVDd: 2.8 cm FS: 39.5 % LAV(MOD-bp): 31.1 ml LVAd ap4: 26.2 cm2 SV(MOD-sp4): 48.3 ml LAV(MOD-bp) Indexed: 20.2 ml/m2 LVLd ap4: 7.6 cm LAV(MOD-sp2): 30.3 ml EDV(MOD-sp4): 73.8 ml LAV(MOD-sp4): 28.3 ml EDV(sp4-el): 76.2 ml LVAs ap4: 14.2 cm2 LVLs ap4: 6.5 cm ESV(MOD-sp4): 25.5 ml ESV(sp4-el): 26.1 ml EF(MOD-sp4): 65.5 % EF(sp4-el): 65.7 % SV(sp4-el): 50.1 ml LA A4 area: 12.8 cm2 RA A4 area: 9.9 cm2 TAPSE: 1.8 cm Time Measurements MV dec time: 0.20 sec Doppler Measurements & Calculations MV E max tom: 74.4 cm/sec Lat Peak E' Tom: 18.1 cm/sec Med Peak E' Tom: 12.8 cm/sec MV A max tom: 64.0 cm/sec E/E' lat: 4.1 E/E' med: 5.8 MV E/A: 1.2 MV V2 max: 79.6 cm/sec MV P1/2t max tom: 80.3 cm/sec Ao V2 max: 130.7 cm/sec MV max P.5 mmHg MV P1/2t: 70.6 msec Ao max P.8 mmHg MV V2 mean: 44.3 cm/sec MV dec slope: 333.3 cm/sec2 Ao V2 mean: 86.1 cm/sec MV mean P.93 mmHg Ao mean P.5 mmHg MV V2 VTI: 30.5 cm MVA(P1/2t): 3.1 cm2 Ao V2 VTI: 26.4 cm AV (velocity ratio): 0.83 LV V1 max: 116.1 cm/sec PA V2 max: 82.8 cm/sec TR max tom: 225.5 cm/sec LV V1 max P.4 mmHg TR max P.3 mmHg LV V1 mean P.4 mmHg LV V1 mean: 70.8 cm/sec LV V1 VTI: 21.9 cm ECHO/Echo Complete Interpretation Summary Normal LV size. Left ventricular systolic function is normal. The left ventricular ejection fraction is 60 %. Structurally normal valves. The global longitudinal strain is normal. The globa l longitudinal strain = -21.6 % (normal). Ordering Physician: Mellisa Santana Performed By: Zackery Balbuena RCS
--- NOTE | 2024-07-24 12:43 | CASEMGMT ---
Per RN CM patient wanted to complete advance directives. SW met with patient. Introduced self and role at [facility]. After explaining documents to patient she elected to only complete the Healthcare Power of General Road Supervisor. Patient named her son Don as her Healthcare Power of General Road Supervisor. Document was completed. Copies were made and given to patient along with original. A copy was also placed in patient's chart. Aure JOY
[2024-07-24 13:09] LABS: Platelet Count 404 K/mm3 (150-450); RET-HE 34.3 pg (30-35); Reticulocyte Count 0.82 % (0.5-1.5)
[2024-07-24] MEDS: ETOPOSIDE 50 MG PO (13:59)
--- NOTE | 2024-07-24 14:42 | CASEMGMT ---
RN CM NOTE: Per Dr Santana, pt to discharge home on Eliquis. SHELLY STILES to room. Introduced self and role. Provided w/Eliquis co-pay card and instructed on use. Made aware card will need activated prior to use. She voices understanding. Home O2 amb testing to be completed prior to discharge. Pt states has a pulse ox @ home. If home O2 needed, she states to use [employer]. She denies other discharge/home-going needs. Meaghan DHILLONN RN CM
[2024-07-24 14:59] VITALS: O2SAT 100; O2SAT 99
--- NOTE | 2024-07-24 16:08 | DCINST_ITS ---
Discharge Instructions Diet Discharge Diet: No restrictions Activity Discharge Activity: - (Increase activity as tolerated) Follow Up Care Test Results: Test results from this visit will be discussed in further detail at your follow- up appointment, if applicable. Discharge Plan Admission Admit Date/Time: 07/23/24 19:23 Primary Reason for Your Visit: Shortness of breath and left leg swelling Attending Provider: Mellisa Santana Primary Care Provider: Willi Sofia Consulting Providers: Travis Harrison; Yg Portillo Instructions Patient Instructions: Embolism Pulmonary Dc Additional Instructions / Restrictions: DISCHARGE INSTRUCTIONS PLEASE READ *Please take this with you to your next doctors appointment* -You will be discharged on Eliquis for your blood clot in your lung and leg. You will take 10 mg twice daily for 7 days followed by 5 mg twice daily thereafter -You can follow-up in the vascular office next week, please contact their office to schedule an appointment -Please continue to follow with your oncology doctor, Dr. Lenz as routinely scheduled -Please call your primary care provider's office upon discharge to schedule a hospital follow up within 1 week. -For any concerning signs or symptoms please call 911 or proceed to the nearest emergency department Discharge Orders/Prescriptions Prescriptions: New Eliquis DVT-PE Treat 30D Start 5 mg (74 tabs) tablets,dose pack See Rx Instructions .ROUTE .COMPLEX Qty: 74 0RF Rx Instructions: orally per package directions Continued duloxetine [Cymbalta] 20 mg capsule,delayed release(DR/EC) 30 mg PO DAILY cholecalciferol (vitamin D3) 125 mcg (5,000 unit) capsule 125 mcg PO DAILY sennosides-docusate sodium [Stimulant Laxative Plus] 8.6-50 mg tablet 2 tab PO BID etoposide 50 mg capsule 50 mg PO DAILY aspirin [Adult Aspirin Regimen] 81 mg tablet,delayed release (DR/EC) 81 mg PO DAILY Referrals / Follow Up: Willi Sofia MD [Primary Care Provider] - Within 1 Week Nargis Pisano PA [Med Staff - Adv Practice Prof] - Within 1 Week Disposition Disposition (needs filled in before D/C Order can be placed): Home, Self Care
--- NOTE | 2024-07-24 16:10 | PCM.DC.SUM ---
Providers Date of Admission: 07/23/24 Date of Discharge: 07/24/24 Primary Care Physician: Dr. Willi Sofia MD Consultations 07/23/24 20:22 Consult: Vascular Surgery Routine Consulting Provider: Travis Harrison Reason for Consult: LLE DVT AND PE, OVARIAN Ca EMERGENT Consult: No MD Notified: Yes Date Notified: 07/23/24 Time Notified: 20:00 Method of Notification: Verbal Reason For Visit: TACHYCARDIA, PE/DVT Diagnosis Discharge Diagnosis (1) Acute pulmonary embolism: Status: Acute Code(s): I26.99 - Other pulmonary embolism without acute cor pulmonale (2) DVT (deep venous thrombosis): Status: Acute Code(s): I82.409 - Acute embolism and thrombosis of unspecified deep veins of unspecified lower extremity Plan #Acute DVT #Acute PE #Metastatic ovarian Ca #Hx CAD w/ stent Medications at Discharge Home Medications aspirin 81 mg tablet,delayed release (Adult Aspirin Regimen) 81 mg PO DAILY heart health 10/31/22 cholecalciferol (vitamin D3) 125 mcg (5,000 unit) capsule 125 mcg PO DAILY vitamin 02/16/23 duloxetine 20 mg capsule,delayed release (Cymbalta) 30 mg PO DAILY mental health 09/12/23 etoposide 50 mg capsule 50 mg PO DAILY cancer 07/23/24 sennosides 8.6 mg-docusate sodium 50 mg tablet (Stimulant Laxative Plus) 2 tab PO BID laxative 07/23/24 apixaban 5 mg (74 tabs) tablets in a dose pack (Eliquis DVT-PE Treat 30D Start) See Rx Instructions PO .COMPLEX #74 tabs 07/24/24 Hospital Course Procedures - (echo) Summary of Care Provided Minutes Spent on Discharge: 35 Hospital Course: 58-year-old female history of metastatic ovarian cancer following with Dr. Lenz recently switched to oral etoposide, CAD status post stenting in 2020 who presented to [facility] ED 07/23/2024 for left leg swelling and 2 days of worsening shortness of breath. CTA positive for mild PE that was nonocclusive. Lower extremity duplex also obtained which showed extensive DVT extending from common femoral vein to the popliteal. Patient started on Lovenox. Vascular was contacted due to the clot burden in the left leg but given patient's lack of significant symptoms it was felt reasonable to follow-up on outpatient basis. Discussed with patient's oncologist, given the downtrend in hemoglobin after fluids it was felt prudent to assess if patient was bleeding or if she was under producing and reticulocyte count obtained. Reticulocyte index low indicating hypoproliferation, discussed with oncology and it was felt that this is likely due to her chemo medication. Given her downtrend in hemoglobin is due to her medication and fluid administration it was felt reasonable to continue her on anticoagulation. On day of discharge patient feeling fair at rest with no shortness of breath, no significant leg symptoms. She was ambulated without desaturations or symptoms that would necessitate continued inpatient hospitalization. Also echo obtained with no overt abnormalities or evidence of right heart strain. Discussed plan to start Eliquis and to follow-up with vascular in the office and oncology and patient verbalized understanding. Questions answered. No new or acute complaints. Physical Exam Narrative General: Alert, oriented, no apparent distress HEENT: Atraumatic, normocephalic Eyes: Anicteric, normal conjunctiva, extraocular movements grossly intact Neck: Supple Respiratory: Clear to auscultation bilaterally, normal respiratory effort Cardiovascular: Regular rate and rhythm GI: Soft, nontender, nondistended Extremities: No edema Musculoskeletal: Moving all extremities Neuro: No overt focal neurological deficits Skin: No rashes appreciated Psych: Cooperative Medical Records Data Medical Nutrition Assessment Dietitian: Malnutrition Criteria Met Start: 07/24/24 12:13 Freq: Status: Active Protocol: Document 07/24/24 12:14 RMA (Rec: 07/24/24 12:14 RMA [id number]) Nutrition Malnutrition Evidence of Malnutrition Exists Yes Malnutrition (severe): Chronic Evidenced By Suboptimal Energy Intake ( Severe),Weight Loss (Severe), Physical Changes (Severe) Clinical Problem Chronic Disease or Condition Related Malnutrition Etiology severe protein-calorie malnutrition in the context of chronic disease related to inadequate energy intake and increased energy expenditure due to catabolic disease process/malignancy Signs/Symptoms as evidenced by BMI 16.6 , ~8% unintentional weight loss x 2 -3 months, muscle wasting/fat depletion in clavicle, orbital , arms and legs and oral intake meeting less than 50% estimated nutrition needs x 3 months Status Active Problem Recommendation Dietitian Recommendations/Changes Will liberalize diet to regular/no added salt in view of signs/symptoms of malnutrition. Will add ensure compact 3 times per day w/ meals. Will add magic cup 2 times per day w/ lunch and dinner. Adjust ONS as needed to optimize PO as tolerated. Weight / BMI Weight Weight: 48 kg Body Mass Index (BMI) 16.5 ABG / Lab / Microbiology Data 07/24/24 06:00 07/24/24 06:00 Laboratory: Laboratory Results - last 24 hr 07/23/24 17:45: WBC 6.7, RBC 3.58 L, Hgb 9.4 L, Hct 29.4 L, MCV 82.1, MCH 26.3 L, MCHC 32.0, RDW Std Deviation 56.0 H, RDW Coeff of Nicholas 19.5 H, Plt Count 455 H, MPV 9.6, Immature Gran % (Auto) 0.600, Neut % (Auto) 77.6 H, Lymph % (Auto) 15.3 L, Baca % (Auto) 4.4, Eos % (Auto) 1.2, Baso % (Auto) 0.9, Absolute Neuts (auto) 5.2, Absolute Lymphs (auto) 1.02, Nucleated RBC % 0, PT 14.1, INR 1.1, APTT 25.3, Sodium 136, Potassium 4.1, Chloride 101, Carbon Dioxide 25.0, Anion Gap 10, BUN 16, Creatinine 1.14 H, Estim Creat Clear Calc 41.68, Est GFR (MDRD) Af Amer 63, Est GFR (MDRD) Non-Af 52 L, BUN/Creatinine Ratio 14.0, Glucose 124 H, Calcium 9.6, Magnesium 1.7, Total Bilirubin 0.40, Direct Bilirubin 0.11, AST 15, ALT 15, Alkaline Phosphatase 79, Troponin I High Sens < 3 L, B-Natriuretic Peptide 49.8, Total Protein 7.4, Albumin 3.3, Globulin 4.1, TSH 1.670 07/23/24 20:20: Troponin I High Sens 3 07/24/24 00:50: Troponin I High Sens 6 07/24/24 06:00: WBC 3.2 L, RBC 2.87 L, Hgb 7.6 L, Hct 23.8 L, MCV 82.9, MCH 26.5 L, MCHC 31.9 L, RDW Std Deviation 56.3 H, RDW Coeff of Nicholas 19.7 H, Plt Count 368, MPV 9.3, Immature Gran % (Auto) 0.300, Neut % (Auto) 60.3, Lymph % (Auto) 26.7, Baca % (Auto) 7.0, Eos % (Auto) 4.4, Baso % (Auto) 1.3 H, Absolute Neuts (auto) 1.9 L, Absolute Lymphs (auto) 0.84, Nucleated RBC % 0, Retic Count 0.82, Immature Retic Fraction 16.50 H, Retic Hgb Equivalent 34.3, Sodium 136, Potassium 3.7, Chloride 103, Carbon Dioxide 27.0, Anion Gap 6, BUN 14, Creatinine 0.78, Estim Creat Clear Calc 59.57, Est GFR (MDRD) Af Amer 98, Est GFR (MDRD) Non-Af 81, BUN/Creatinine Ratio 18.1, Glucose 98, Calcium 8.7 Radiography Diagnostic Testing: Radiology Impression Chest CTA 07/23/24 17:37 IMPRESSION: 1. Positive for PE but mild. Including branching and thin PE extending over the left main pulmonary artery bifurcation and a contiguous milder bulkier and rounder small component in left upper lobe proximal segmental branching. Nonocclusive. 2. Moderate-large loculated nonsimple subpulmonic right pleural effusion, suggesting exudate. Possible malignant effusion. 3. Advanced COPD. 4. 2 nodular opacities in the left upper lobe including mildly larger irregular predominantly groundglass nodule and smaller but solid and new ovoid nodule. Either or both may be primary or metastatic disease or other etiology. 5. Loculated and complex-appearing left subdiaphragmatic-perisplenic fluid collection. Increased loculated perihilar-perihepatic fluid. Increased gastrohepatic adenopathy. Electronically Signed: Isis Campos MD at 18:54 EDT , ADDENDUM: 07/23/24 [id number] IMPRESSION: 1. Positive for PE but mild. Including branching and thin PE extending over the left main pulmonary artery bifurcation and a contiguous milder bulkier and rounder small component in left upper lobe proximal segmental branching. Nonocclusive. 2. Moderate-large loculated nonsimple subpulmonic right pleural effusion, suggesting exudate. Possible malignant effusion. 3. Advanced COPD. 4. 2 nodular opacities in the left upper lobe including mildly larger irregular predominantly groundglass nodule and smaller but solid and new ovoid nodule. Either or both may be primary or metastatic disease or other etiology. 5. Loculated and complex-appearing left subdiaphragmatic-perisplenic fluid collection. Increased loculated perihilar-perihepatic fluid. Increased gastrohepatic adenopathy. N.B. : The above Results were Read Back by Isis Campos MD to Zackery Frederick DO, and understanding confirmed on 07/23/2024 18:57:59 (ET). Electronically Signed: Isis Campos MD at 18:54 EDT , Venous Duplex 07/23/24 17:45 IMPRESSION: Extensive deep venous thrombosis extending from the common femoral vein to the popliteal. Electronically Signed: Mainor Henry MD at 18:44 EDT , Echocardiogram 07/24/24 11:28 Interpretation Summary Normal LV size. Left ventricular systolic function is normal. The left ventricular ejection fraction is 60 %. Structurally normal valves. The global longitudinal strain is normal. The global longitudinal strain = -21.6 % (normal). Ordering Physician: Mellisa Santana Performed By: Zackery Balbuena RCS D/C Instructions Discharge Diet: No restrictions Meaningful Use Info Meaningful Use Meaningful Use Diagnoses (Choose all that apply): VTE Ischemic Stroke Statin Dosing Therapy Reference: STATIN DOSE THERAPY REFERENCE: * Patients > 75 years receive moderate or high dose statin therapy. * Patients 75 years or YOUNGER should receive HIGH intensity statin dose unless contraindicated. You will be required to document reason for non-treatment if statin daily dose does not meet guidelines. HIGH DOSE STATIN THERAPY DAILY Atorvastatin > than or = to 40 mg Rosuvastatin > than or = to 20 mg Amlodipine + Atorvastatin > than or = to 2.5/40 mg Ezetimibe + Simvastatin 10/80 mg Simvastatin 80mg VTE Anticoag overlap given w/in hospital stay or rx'd at dc?: Yes Pt receive overlap for 5 days?: Yes Discharge Plan Admission Admit Date/Time: 07/23/24 19:23 Primary Reason for Your Visit: Shortness of breath and left leg swelling Attending Provider: Mellisa Santana Primary Care Provider: Willi Sofia Consulting Providers: Travis Harrison; Yg Portillo Instructions Patient Instructions: Embolism Pulmonary Dc Additional Instructions / Restrictions: DISCHARGE INSTRUCTIONS PLEASE READ *Please take this with you to your next doctors appointment* -You will be discharged on Eliquis for your blood clot in your lung and leg. You will take 10 mg twice daily for 7 days followed by 5 mg twice daily thereafter -You can follow-up in the vascular office next week, please contact their office to schedule an appointment -Please continue to follow with your oncology doctor, Dr. Lenz as routinely scheduled -Please call your primary care provider's office upon discharge to schedule a hospital follow up within 1 week. -For any concerning signs or symptoms please call 911 or proceed to the nearest emergency department Discharge Orders/Prescriptions Prescriptions: New Eliquis DVT-PE Treat 30D Start 5 mg (74 tabs) tablets,dose pack See Rx Instructions .ROUTE .COMPLEX Qty: 74 0RF Rx Instructions: orally per package directions Continued duloxetine [Cymbalta] 20 mg capsule,delayed release(DR/EC) 30 mg PO DAILY cholecalciferol (vitamin D3) 125 mcg (5,000 unit) capsule 125 mcg PO DAILY sennosides-docusate sodium [Stimulant Laxative Plus] 8.6-50 mg tablet 2 tab PO BID etoposide 50 mg capsule 50 mg PO DAILY aspirin [Adult Aspirin Regimen] 81 mg tablet,delayed release (DR/EC) 81 mg PO DAILY Referrals / Follow Up: Willi Sofia MD [Primary Care Provider] - Within 1 Week Nargis Pisano PA [Med Staff - Adv Practice Prof] - Within 1 Week Disposition Disposition (needs filled in before D/C Order can be placed): Home, Self Care Charges/Coding Visit Charges Inpatient E&M: 26217 Disch Hosp >30min
[2024-07-24 16:30] VITALS: BP 92/67; PULSE 71; RESP 14; TEMP 36.7; O2SAT 100
[2024-07-24] MEDS: 0.9 % NaCl (Sterile) Posiflush 10 mL IV (17:01)
--- NOTE | 2024-07-24 17:40 | NURSING ---
Reviewed and agreed on charting with Michaelle Hill RN
--- NOTE | 2024-07-25 10:45 | CASEMGMT ---
Addendum entered by Sotero Hogan 07/25/24 17:03: SHELLY STILES had also called [facility] and provided 30-day free trial offer card info for Eliquis. Per pharmacist, it is showing that pt has already used this card in the past. Original Note: SHELLY STILES NOTE: VM received from pt stating when she went to picking supervisor Eliquis @ the pharmacy, she was informed a PA was needed. Call placed to [facility] for PA. PA obtained, approval # [id number], for 06/25/24 thru 07/25/25. Call placed to [facility] and they were made aware. They ran the medication and states it went through and they will get the medication ready for pt to picking supervisor. Call placed to pt and she was made aware PA obtained. She voices appreciation. She states she will picking supervisor the medication @ [facility] this AM and will start taking it as soon as she gets it. She is aware to call [facility] 1st to make sure it is ready, as she is not set up for text-alert notification yet. She also has the Eliquis co-pay card, that she has activated, and will take it to [facility] when she picks the Rx up. Meaghan OSMMER RN, CM
== END 2024-07-24 17:40 | disposition home or self-care (01) | DRG 175 ==
LOC: ED 18:36 → PCU 21:12
PROVIDERS: Internal Medicine; Admitting Provider Hospitalist; Emergency Provider Surgery; PCP Family Medicine; Visit Provider Internal Medicine
DX: I26.99 Other pulmonary embolism without acute cor pulmonale (principal); E43 Unspecified severe protein-calorie malnutrition; R18.0 Malignant ascites; N17.9 Acute kidney failure, unspecified; C56.9 Malignant neoplasm of unspecified ovary; I82.412 Acute embolism and thrombosis of left femoral vein; J91.0 Malignant pleural effusion; Z68.1 Body mass index [BMI] 19.9 or less, adult; D64.9 Anemia, unspecified; D75.839 Thrombocytosis, unspecified; J44.9 Chronic obstructive pulmonary disease, unspecified; I10 Essential (primary) hypertension; F32.A Depression, unspecified; E78.5 Hyperlipidemia, unspecified; I25.10 Atherosclerotic heart disease of native coronary artery without angina pectoris; I25.2 Old myocardial infarction; F41.9 Anxiety disorder, unspecified; Z95.5 Presence of coronary angioplasty implant and graft; Z90.710 Acquired absence of both cervix and uterus; Z87.891 Personal history of nicotine dependence; Z79.82 Long term (current) use of aspirin; Z92.21 Personal history of antineoplastic chemotherapy; Z79.899 Other long term (current) drug therapy; Z98.51 Tubal ligation status
CPT/HCPCS: 36591; 71275; 80048; 80076; 83735; 83880; 84443; 84484; 85025; 85045; 85610; 85730; 93005; 93306; 93971; 94668; 97802; 99285; J7030; Q9967; A4216

== ENCOUNTER → 2024-08-02 | Outpatient (CLI) | payer OTHER, SELFPAY ==
--- NOTE | 2024-08-02 07:45 | US_ITS ---
EXAM: US ABDOMEN LIMITED, ascites CLINICAL INDICATION: Other ascites TECHNIQUE: Real-time ultrasound of the 4 quadrants for ascites quantification with image documentation. COMPARISON: Paracentesis, 07/19/2024. FINDINGS: FREE FLUID: Small to medium volume ascites identified in 4 quadrants with the deepest pocket in the left lower quadrant measuring 10 cm. US/Abdomen Limited IMPRESSION: Small to medium volume ascites identified in 4 quadrants with the deepest pocket in the left lower quadrant measuring 10 cm. Electronically Signed: Chan Art DO at 21:11 EDT ,
[2024-08-02 08:00] VITALS: BP 101/65; PULSE 74; RESP 16; TEMP 36.1; O2SAT 100
== END | disposition home or self-care (01) ==
LOC: US 07:44
PROVIDERS: PCP Family Medicine; Referring Provider Internal Medicine Hematology & Oncology; Visit Provider Internal Medicine Hematology & Oncology
DX: R18.8 Other ascites (principal); C78.6 Secondary malignant neoplasm of retroperitoneum and peritoneum; C56.9 Malignant neoplasm of unspecified ovary
CPT/HCPCS: 76705

== ENCOUNTER → 2024-08-07 | Outpatient (CLI) | payer OTHER, SELFPAY ==
--- NOTE | 2024-08-07 07:34 | US_ITS ---
STUDY: ABDOMINAL ULTRASOUND -ascites survey. REASON FOR VISIT: Female, 58 years old ASCITES TECHNIQUE: Ultrasound evaluation of the 4 quadrants was performed with real-time and static montiel-scale imaging. TECHNICAL QUALITY: Adequate. COMPARISON: None. FINDINGS: Not enough fluid for safe paracentesis.. US/Abdomen Limited IMPRESSION: Not enough fluid for safe paracentesis. Electronically Signed: Isidoro Romero MD at 14:42 EDT ,
--- OUTSIDE RECORDS SUMMARY | 2024-08-07 07:40 | XMS RPT_ITS | CCD ---
Author Organization [facility] Inform ion Partnership [facility] Care Team Providers Care Food Products Tester Name Role Phone Colin Sofia MD Primary Care Provider Colin Sofia Primary Care Unavailable PROVIDER, UNKNOWN Referring Unavailable Addy Hyatt Attending Unavailable BECKIE TSAI Attending Unavailable PROVIDER, UNKNOWN Referring Unavailable Colin Sofia Primary Care Unavailable Colin Sofia Primary Care Unavailable PROVIDER, UNKNOWN Referring Unavailable Addy Hyatt Attending Unavailable Colin Sofia Primary Care Unavailable PROVIDER, UNKNOWN Referring Unavailable Addy Hyatt Attending Unavailable Colin Sofia MD Primary Care Provider [phone] COLIN SOFIA Primary Care Unavailable COLIN SOFIA Primary Care Unavailable Syed Marquez Unavailable Elena DOWNING, Madi Mckay Unavailable Chloe Zambrano RN Unavailable Unavailable Colin Sofia Primary Care Provider Beckie Tsai MD Unavailable Snow LOYA - VENDOR MANAGER, Mohinder Unavailable Addy Hyatt MD Unavailable Christina Engel RN Unavailable Unavailable Susan MANAGER OF TRAINING AND DEVELOPMENT - VENDOR MANAGER, Sherlyn Unavailable Italo DOWNING, Myron Mckay Unavailable Giacomo BRAVO, Oriana Unavailable UnavailMOHINDER Kidd Attending Unavailable COLIN SOFIA Primary Care Unavailable ADDY HYATT Attending Unavailable ADDY HYATT Referring Unavailable COLIN SOFIA Primary Care Unavailable ADDY HYATT Attending Unavailable ADDY HYATT Referring Unavailable ADDY HYATT Admitting Unavailable ADDY HYATT Attending Unavailable EDMAR, ADDY Attending Unavailable EDMAR, ADDY Referring Unavailable ELDERBROCK, COLIN Primary Care Unavailable EDMAR, ADDY Attending Unavailable ARMINDA, DELILAH Attending Unavailable ARMINDA, DELILAH Attending Unavailable EDMAR, ADDY Attending Unavailable EDMAR, ADDY Attending Unavailable ELDERBROCK, COLIN Primary Care Unavailable Kenya RN, Chloe Unavailable Unavailable Masci Bk ARIAS A Unavailable Giacomo RN, Oriana Unavailable Unavailabl e Giacomo RN, Oriana Unavailable Unavailabl e Kimberlyn DOWNING, Colin Kapoor Primary Care Provider Madi Parker MD Unavailable Unavailable ELDERBROCK, COLIN Emelia Primary Care Unavailable NITZ, KANDICE Referring Unavailable NITZ, KANDICE Attending Unavailable NITZ, KANDICE Admitting Unavailable ELDERBROCK, COLIN D Primary Care Unavailable SAHARAJAMES Chandler Admitting Unavailable SAHARAJAMES Chandler Attending Unavailable ESQUIVELANNA MARIERENU Admitting Unavailable ESQUIVELWAIRA Attending Unavailable ELDERBROCK, COLIN D Primary Care Unavailable MASCI, BK A Referring Unavailable ELDERBROCK, COLIN D Primary Care Unavailable MASCI, BK A Referring Unavailable ELDERBROCK, COLIN Emelia Primary Care Unavailable MASCI, BK A Referring Unavailable ELDERBROCK, COLIN Emelia Primary Care Unavailable ELDERBROCK, COLIN Emelia Primary Care Unavailable MASCI, BK A Referring Unavailable MASCI, BK A Referring Unavailable ELDERBROCK, COLIN D Primary Care Unavailable MASCI, BK A Referring Unavailable ELDERBROCK, COLIN Emelia Primary Care Unavailable ELDERBROCK, COLIN Emelia Primary Care Unavailable MASCBK Crum Attending Unavailable BK LENZ Referring Unavailable ELDERBROCK, COLIN Kapoor Primary Care Unavailable LELIE ROMO JR Attending Unavaila ble MASCIBK A Referring Unavailable ELDERBROCK, COLIN D Primary Care Unavailable MASCI, BK A Referring Unavailable ELDERBROCK, COLIN D Primary Care Unavailable MASCI, BK A Referring Unavailable ELDERBROCK, COLIN D Primary Care Unavailable MASCI, BK A Referring Unavailable ELDERBROCK, COLIN D Primary Care Unavailable MASCI, BK A Attending Unavailable ELDERBROCK, COLIN D Primary Care Unavailable MASCI, BK A Referring Unavailable ELDERBROCK, COLIN D Primary Care Unavailable MASCI, BK A Referring Unavailable ELDERBROCK, COLIN D Primary Care Unavailable MASCI, BK A Referring Unavailable ELDERBROCK, COLIN D Primary Care Unavailable MASCI, BK Mckay Attending Unavailable MASCI, BK A Referring Unavailable ELDERBROCK, COLIN D Primary Care Unavailable MASCI, BK A Referring Unavailable ELDERBROCK, COLIN D Primary Care Unavailable MASCI, BK A Referring Unavailable ELDERBROCK, COLIN D Primary Care Unavailable MASCI, BK A Referring Unavailable MASCI, BK A Referring Unavailable ELDERBROCK, COLIN D Primary Care Unavailable MASCI, BK A Referring Unavailable ELDERBROCK, COLIN D Primary Care Unavailable ELDERBROCK, COLIN D Primary Care Unavailable MASCI, BK A Referring Unavailable ELDERBROCK, COLIN D Primary Care Unavailable FAMILIA MADDEN Attending Unavailable MASCI, BK A Referring Unavailable MASCI, BK Nely Referring Unavailable ELDERBROCK, COLIN D Primary Care Unavailable MARY KATE DANG Attending Unavailable MASCI, BK A Referring Unavailable ELDERBROCK, COLIN D Primary Care Unavailable MASCI, BK A Referring Unavailable MASCI, BK Mckay Attending Unavailable ELDERBROCK, COLIN D Primary Care Unavailable MASCI, BK Mckay Referring Unavailable ELDERBROCK, COLIN D Primary Care Unavailable ELDERBROCK, COLIN D Primary Care Unavailable MASCI, BK A Referring Unavailable ELDERBROCK, COLIN D Primary Care Unavailable MASCI, BK A Referring Unavailable MASCI, BK Mckay Attending Unavailable ELDERBROCK, COLIN D Primary Care Unavailable MASCI, BK A Referring Unavailable ELDERBROCK, COLIN D Primary Care Unavailable MASCI, BK A Referring Unavailable ELDERBROCK, COLIN D Primary Care Unavailable ELDERBROCK, COLIN D Primary Care Unavailable MASCI, BK A Referring Unavailable ELDERBROCK, COLIN D Primary Care Unavailable MASCI, BK Mckay Referring Unavailable MASCI, BK Nely Referring Unavailable ELDERBROCK, COLIN D Primary Care Unavailable ELDERBROCK, COLIN D Primary Care Unavailable MASCI, BK A Referring Unavailable ELDERBROCK, COLIN D Primary Care Unavailable MASCI, BK A Attending Unavailable MASCI, BK A Referring Unavailable ELDERBROCK, COLIN D Primary Care Unavailable MASCI, BK A Referring Unavailable ELDERBROCK, COLIN D Primary Care Unavailable MASCI, BK A Referring Unavailable ELDERBROCK, COLIN D Primary Care Unavailable MASCI, BK A Referring Unavailable MASCI, BK A Referring Unavailable ELDERBROCK, COLIN D Primary Care Unavailable ELDERBROCK, COLIN D Primary Care Unavailable ELDERBROCK, COLIN D Primary Care Unavailable MASCI, BK Mckay Referring Unavailable MASCI, BK Mckay Attending Unavailable MASCI, BK Mckay Referring Unavailable ELDERBROCK, COLIN D Primary Care Unavailable MASCI, BK Mckay Attending Unavailable MASCI, BK A Referring Unavailable ELDERBROCK, COLIN D Primary Care Unavailable ELDERBROCK, COLIN D Primary Care Unavailable MASCI, BK A Referring Unavailable ELDERBROCK, COLIN D Primary Care Unavailable MASCI, BK A Referring Unavailable MASCI, BK A Attending Unavailable ELDERBROCK, COLIN D Primary Care Unavailable MASCI, BK A Referring Unavailable ELDERBROCK, COLIN D Primary Care Unavailable MASCI, BK A Referring Unavailable ELDERBROCK, COLIN D Primary Care Unavailable MASCI, BK A Referring Unavailable MASCI, BK A Referring Unavailable ELDERBROCK, COLIN D Primary Care Unavailable MASCI, BK A Referring Unavailable ELDERBROCK, COLIN D Primary Care Unavailable ELDERBROCK, COLIN D Primary Care Unavailable MASCI, BK A Referring Unavailable ROBRAILADY Attending Unavailable ELDERBROCK, COLIN D Primary Care Unavailable MASCI, BK A Referring Unavailable ELDERBROCK, COLIN D Primary Care Unavailable MASCI, BK A Referring Unavailable MASCI, BK A Referring Unavailable ELDERBROCK, COLIN D Primary Care Unavailable MASCI, BK Mckay Attending Unavailable MASCI, BK A Referring Unavailable ELDERBROCK, COLIN D Primary Care Unavailable MASCI, BK A Referring Unavailable ELDERBROCK, COLIN D Primary Care Unavailable ELDERBROCK, COLIN D Primary Care Unavailable MASCI, BK A Referring Unavailable ELDERBROCK, COLIN D Primary Care Unavailable MASCI, BK A Referring Unavailable MASCI, BK A Referring Unavailable ELDERBROCK, COLIN D Primary Care Unavailable MASCI, BK A Referring Unavailable ELDERBROCK, COLIN D Primary Care Unavailable MASCI, BK A Referring Unavailable ELDERBROCK, COLIN D Primary Care Unavailable MASCI, BK A Referring Unavailable ELDERBROCK, COLIN D Primary Care Unavailable ELDERBROCK, COLIN D Primary Care Unavailable MASCI, BK A Attending Unavailable MASCI, BK A Referring Unavailable ELDERBROCK, COLIN D Primary Care Unavailable MASCI, BK A Referring Unavailable ELDERBROCK, COLIN D Primary Care Unavailable MASCI, BK A Referring Unavailable ELDERBROCK, COLIN D Primary Care Unavailable MASCI, BK A Referring Unavailable ELDERBROCK, COLIN D Primary Care Unavailable MASCI, BK A Referring Unavailable ELDERBROCK, COLIN D Primary Care Unavailable MASCI, BK A Referring Unavailable MASCI, BK A Attending Unavailable ELDERBROCK, COLIN D Primary Care Unavailable MASCI, BK A Referring Unavailable ELDERBROCK, COLIN D Primary Care Unavailable MASCI, BK A Referring Unavailable MASCI, BK A Referring Unavailable ELDERBROCK, COLIN D Primary Care Unavailable MASCI, BK A Referring Unavailable ELDERBROCK, COLIN D Primary Care Unavailable BK LENZ Referring Unavailable COLIN SOFIA Primary Care Unavailable BK LENZ Referring Unavailable COLIN SOFIA Primary Care Unavailable BK LENZ Attending Unavailable BK LENZ Referring Unavailable COLIN SOFIA Primary Care Unavailable BK LENZ Referring Unavailable COLIN SOFIA Primary Care Unavailable BK LENZ Referring Unavailable COLIN SOFIA Primary Care Unavailable Allergies Allergy Classification Reported Allergen(s) Allergy Type Date of Onset Reaction(s) Facility HMG-CoA Reductase Inhibitors (statins) (5 sources) atorvastatin Drug Allergy 02-10-20 Diarrhea [facility] Metoprolol (5 sources) Metoprolol Drug Allergy 02-10-[address] [facility] Opioid Agonists (5 sources) HYDROmorphone Drug Allergy 02-10-20 [facility] Sulfamethoxazole / Trimethoprim (5 sources) Sulfamethoxazole / Trimethoprim Drug Allergy 02-29-20 12 [facility] (20 sources) Sulfamethoxazole / Trimethoprim; Translations: [SULFAMETHOXAZOLE-T RIMETHOPRIM] Drug Allergy 02-29-20 12 [facility], It[facility] Work Phone: (8 sources) atorvastatin; Translations: [ATORVASTATIN] Drug Allergy 06-23-20 Diarrhea [facility] (20 sources) Metoprolol; Translations: [METOPROLOL] Drug Allergy 06-23-20 22 Diarrhea [facility] Work Phone: (4 sources) Sulfamethoxazole Drug Allergy 06-23-20 [facility] Work Phone: (5 sources) Trimethoprim Drug Allergy 06-23-20 [facility] Work Phone: (20 sources) atorvastatin Drug Allergy 02-10-[address] [facility] (20 sources) HYDROmorphone; Translations: [HYDROMORPHONE] Drug Allergy 02-10-20 23 [facility] (1 source) Sulfamethoxazole Propensity to adverse reactions 07-29-20 [facility] Medications Current Medications Medication Drug Class(es) Dates Sig (Normalized) Sig (Original) acetaminophen 500 mg oral tablet (20 sources) Start: 06-28-2022 take 2 tablets by mouth every six hours as needed for pain acetaminophen (TYLENOL) 500 MG tablet Take 2 tablets by mouth every 6 hours as needed for Pain 120 tablet 0 06/28/2022 Active Start: 06-28-2022 acetaminophen (TYLENOL) tablet 1,000 mg take 2 tablets by mo [facility] every six hours as needed acetaminophen (TYLENOL) 325 mg tablet Take 650 mg by mouth every 6 hours as needed. Active Comment on above: Take 650 mg by mouth every 6 hours as needed. ALPRAZolam 0.25 mg disintegrating oral tablet (1 source) Benzodiazepine Start: 06-28-20 ALPRAZolam (NIRAVAM) dissolvable tablet 0.25 mg amoxicillin 875 mg / clavulanate 125 mg oral tablet (6 sources) Penicillin-class Antibacterial Start: 07-25-20 End: 07-30-20 take 1 tablet by mouth twice daily amoxicillin-clavula hakeem acid (AUGMENTIN) 875-125 mg per tablet Take 1 tablet by mouth two times a day for 5 days. 10 tablet 0 07/25/2023 07/30/2023 Active Start: 05-15-2023 End: 05-22-2023 take 1 tablet by mouth twice daily amoxicillin-clavulanic acid (AUGMENTIN) 875-125 mg per tablet Take 1 tablet by mouth twice daily for 7 days. 14 tablet 0 05/15/2023 05/22/2023 Active Comment on above: Take 1 tablet by lubna th twice daily for 7 days. Take 1 tablet by lubna th two times a day for 5 days. apixaban 5 mg oral tablet (2 sources) Factor Xa Inhibitor take 1 tablet by mouth twice daily apixaban (ELIQUIS) 5 mg tab(s) Take 5 mg by mouth two times a day. Active calcium chloride 0.0014 meq/ml / potassium chloride 0.004 meq/ml / sodium chloride 0.103 meq/ml / sodium lactate 0.028 meq/ml injectable solution (2 sources) Start: 2 lactated ringers infusion cholecalciferol 0.05 mg oral capsule (20 sources) Vitamin D Start: 1 take 1 capsule by mouth once daily Cholecalciferol, Vitamin D3, 50 mcg (2,000 unit) cap Take 5,000 Units by mouth once daily. 09/13/2021 Active Start: 09-13-20[address] [facility] once daily Cholecalciferol, Vitamin D3, 50 mcg (2,000 unit) cap Take 2,000 Units by mouth once daily. 0 09/13/2021 Active Start: 01-06-2020 End: 02-09-2022 take 1 capsule by mouth every week cholecalciferol, Vitamin D3, (VITAMIN D3) 1,250 mcg (50,000 unit) cap capsule Take 1 capsule by mouth one time a week. 4 capsule 5 01/06/2020 02/09/2022 Discontinued Comment on above: Take 2,000 Units by mouth once daily. Take [address] [facility] one time a week. Take 5,000 Units by mouth once daily. clopidogrel 75 mg oral tablet (4 sources) [id number] Platelet Inhibitor take 1 tablet by mouth once daily clopidogrel (PLAVIX) 75 MG tablet Take 75 mg by mouth daily 0 Active dicyclomine hydrochloride 10 mg oral capsule (20 sources) Anticholinergic Start: 01-09-20 take 1 capsule by mouth every six hours dicyclomine (BENTYL) 10 mg capsule Take 1 capsule by mouth every 6 hours. 120 capsule 2 01/09/2024 Active Comment on above: Take [address] [facility] every 6 hours. docusate sodium 100 mg oral capsule (5 sources) Start: 07-08-20 End: 08-07-20 take 2 capsules by mouth twice daily docusate sodium (COLACE) 100 MG capsule Take 2 capsules by mouth 2 times daily 120 capsule 0 07/08/2022 08/07/2022 Active Start: 06-28-2022 End: 08-27-2022 take 1 capsule by mouth twice daily docusate sodium (COLACE) 100 MG capsule Take 1 capsule by mouth 2 times daily 60 capsule 0 06/28/2022 08/27/2022 Active docusate sodium 50 mg / sennosides, care home 8.6 mg oral tablet (20 sources) Start: 11-08-2023 take 2 tablets by mouth twice daily senna-docusate (SENNA-S) 8.6-50 mg per tablet Take 2 tablets by mouth two times a day. 120 tablet 2 11/08/2023 Active take 1 tablet by mouth in the mo rning senna-docusate (Brianna-Colace) 8.6-50 MG tablet Take 1 tablet by mouth in the morning and 1 tablet in the evening. 0 Active take 1 tablet by mouth twice jes ly sennosides-docusate sodium (SENOKOT-S) 8.6- 50 MG tablet Take 1 tablet by mouth 2 times daily 0 Active Comment on above: Take 2 tablets by mo ut two times a day. enteric contrast (will be provided with radiology test) (20 sources) Start: 05-09-2024 End: 05-10-2024 enteric contrast (will be provided with radiology test) Indications: Malignant neoplasm of both ovaries (HCC) , Peritoneal carcinomatosis (HCC) For CT CHESTABD/PEL W IVCON Routine order Administer, As Directed One Time Only, via Oral, Rectal, both Oral and Rectal, Enteric Tube, Stoma or Indwelling Catheter, Enteric Contrast as designated per enteric contrast guidelines 1 Each 0 05/09/2024 05/10/2024 Active Start: 11-29-2023 End: 08-05-2024 enteric contrast (will be pr ovided with radiology test) Indications: Disseminated malignant neoplasm of ovary, unspecified laterality (HCC) , Peritoneal carcinomatosis (HCC) , Malignant neoplasm of both ovaries (HCC) For CT ABD/PEL W IVCON Routine order Administer, As Directed One Time Only, via Oral, Rectal, both Oral and Rectal, Enteric Tube, Stoma or Indwelling Catheter, Enteric Contrast as designated per enteric contrast guidelines 1 Each 11/29/2023 08/05/2024 Discontinued Start: 11-29-[address] (will be provided with radiology test) Indications: Disseminated malignant neoplasm of ovary, unspecified laterality (HCC) , Peritoneal carcinomatosis (HCC) , Malignant neoplasm of both ovaries (HCC) For CT ABD/PEL W IVCON Routine order Administer, As Directed One Time Only, via Oral, Rectal, both Oral and Rectal, Enteric Tube, Stoma or Indwelling Catheter, Enteric Contrast as designated per enteric contrast guidelines 1 Each 11/29/2023 Active Start: 11-29-[address] (will be provided with radiology test) Indications: Disseminated malignant neoplasm of ovary, unspecified laterality (HCC) , Peritoneal carcinomatosis (HCC) , Malignant neoplasm of both ovaries (HCC) For CT ABD/PEL W IVCON Routine order Administer, As Directed One Time Only, via Oral, Rectal, both Oral and Rectal, Enteric Tube, Stoma or Indwelling Catheter, Enteric Contrast as designated per enteric contrast guidelines 1 Each 0 11/29/2023 Active Start: 09-05-2023 End: 10-05-2023 enteric contrast (will be pr ovided with radiology test) Indications: Malignant neoplasm of both ovaries (HCC) , Peritoneal carcinomatosis (HCC) For CT ABD/PEL W IVCON Routine order Administer, As Directed One Time Only, via Oral, Rectal, both Oral and Rectal, Enteric Tube, Stoma or Indwelling Catheter, Enteric Contrast as designated per enteric contrast guidelines 1 Each 0 09/05/2023 10/05/2023 Discontinued Start: 09-05-[address] (will be provided with radiology test) Indications: Malignant neoplasm of both ovaries (HCC) , Peritoneal carcinomatosis (HCC) For CT ABD/PEL W IVCON Routine order Administer, As Directed One Time Only, via Oral, Rectal, both Oral and Rectal, Enteric Tube, Stoma or Indwelling Catheter, Enteric Contrast as designated per enteric contrast guidelines 1 Each 0 09/05/2023 Active Start: 06-20-2023 End: 08-10-2023 enteric contrast (will be pr ovided with radiology test) Indications: Ovarian cancer, bilateral (HCC) For CT CHESTABD/PEL W IVCON Routine order Administer, As Directed One Time Only, via Oral, Rectal, both Oral and Rectal, Enteric Tube, Stoma or Indwelling Catheter, Enteric Contrast as designated per enteric contrast guidelines 1 Each 0 06/20/2023 08/10/2023 Discontinued Start: 06-20-[address] (will be provided with radiology test) Indications: Ovarian cancer, bilateral (HCC) For CT CHESTABD/PEL W IVCON Routine order Administer, As Directed One Time Only, via Oral, Rectal, both Oral and Rectal, Enteric Tube, Stoma or Indwelling Catheter, Enteric Contrast as designated per enteric contrast guidelines 1 Each 0 06/20/2023 Active Start: 03-22-2023 End: 06-20-2023 enteric contrast (will be pr ovided with radiology test) Indications: Malignant neoplasm of both ovaries (HCC) For CT CHESTABD/PEL W IVCON Routine order Administer, As Directed One Time Only, via Oral, Rectal, both Oral and Rectal, Enteric Tube, Stoma or Indwelling Catheter, Enteric Contrast as designated per enteric contrast guidelines 1 Each 0 03/22/2023 06/20/2023 Discontinued Start: 03-22-[address] (will be provided with radiology test) Indications: Malignant neoplasm of both ovaries (HCC) For CT CHESTABD/PEL W IVCON Routine order Administer, As Directed One Time Only, via Oral, Rectal, both Oral and Rectal, Enteric Tube, Stoma or Indwelling Catheter, Enteric Contrast as designated per enteric contrast guidelines 1 Each 0 03/22/2023 Active Comment on above: For CT CHESTABD/PEL W IVCON Routine order Administer, As Directed One Time Only, via Oral, Rectal, both Oral and Rectal, Enteric Tube, Stoma or Indwelling Catheter, Enteric Contrast as designated per enteric contrast guidelines For CT ABD/PEL W IVC ON Routine order Administer, As Directed One Time Only, via Oral, Rectal, both Oral and Rectal, Enteric Tube, Stoma or Indwelling Catheter, Enteric Contrast as designated per enteric contrast guidelines etoposide 50 mg oral capsule (18 sources) Topoisomerase Inhibitor Start: 07-08-2024 etoposide (VEPESID) 50 mg capsule Indications: Peritoneal carcinomatosis (HCC) , Disseminated malignant neoplasm of ovary, unspecified laterality (HCC) Take 1 capsule (50 mg) by mouth once daily for 21 days, then off 7 days 21 capsule 5 07/08/2024 Active 2 ml fentaNYL 0.05 mg/ml injection (2 sources) Opioid Agonist Start: 06-28-2022 fentaNYL (SUBLIMAZE) injection 50 mcg Start: 06-28-2022 fentaNYL (SUBL IMAZE) injection 25 mcg iv contrast (will be provide d with radiology test) (20 sources) Start: 05-09-2024 End: 05-10-2024 iv contrast (will be provide d with radiology test) Indications: Malignant neoplasm of both ovaries (HCC) , Peritoneal carcinomatosis (HCC) CT Chest ABD/PEL-Inject, intravenously, once for 1 dose.No IV access, insert saline lock prior to the beginning of sedation, infusion, injection of imaging exam. Discontinue saline lock post exam. If Pt. has a central line or IVAD, may access for administration according to line specific nursing protocol. Once exam is complete flush line and de-access according to line specific nursing protocol in the CT contrast administration guidelines link. 1 Each 0 05/09/2024 05/10/2024 Active Start: 11-29-2023 End: 08-05-2024 iv contrast (will be provide d with radiology test) Indications: Disseminated malignant neoplasm of ovary, unspecified laterality (HCC) , Peritoneal carcinomatosis (HCC) , Malignant neoplasm of both ovaries (HCC) CT Chest W -Inject, intravenously, once for 1 dose.No IV access, insert saline lock prior to the beginning of sedation, infusion, injection of imaging exam. Discontinue saline lock post exam. If Pt. has a central line or IVAD, may access for administration according to line specific nursing protocol. Once exam is complete flush line and de-access according to line specific nursing protocol in the CT contrast administration guidelines link. 1 Each 11/29/2023 08/05/2024 Discontinued Start: 11-29-2023 End: 08-05-2024 iv contrast (will be provide d with radiology test) Indications: Disseminated malignant neoplasm of ovary, unspecified laterality (HCC) , Peritoneal carcinomatosis (HCC) , Malignant neoplasm of both ovaries (HCC) CT ABD/PEL -Inject, intravenously, once for 1 dose.No IV access, insert saline lock prior to the beginning of sedation, infusion, injection of imaging exam. Discontinue saline lock post exam. If Pt. has a central line or IVAD, may access for administration according to line specific nursing protocol. Once exam is complete flush line and de-access according to line specific nursing protocol in the CT contrast administration guidelines link. 1 Each 11/29/2023 08/05/2024 Discontinued Start: 11-29-2023 iv contrast (w ill be provided with radiology test) Indications: Disseminated malignant neoplasm of ovary, unspecified laterality (HCC) , Peritoneal carcinomatosis (HCC) , Malignant neoplasm of both ovaries (HCC) CT Chest W -Inject, intravenously, once for 1 dose.No IV access, insert saline lock prior to the beginning of sedation, infusion, injection of imaging exam. Discontinue saline lock post exam. If Pt. has a central line or IVAD, may access for administration according to line specific nursing protocol. Once exam is complete flush line and de-access according to line specific nursing protocol in the CT contrast administration guidelines link. 1 Each 11/29/2023 Active Start: 11-29-2023 iv contrast (w ill be provided with radiology test) Indications: Disseminated malignant neoplasm of ovary, unspecified laterality (HCC) , Peritoneal carcinomatosis (HCC) , Malignant neoplasm of both ovaries (HCC) CT ABD/PEL -Inject, intravenously, once for 1 dose.No IV access, insert saline lock prior to the beginning of sedation, infusion, injection of imaging exam. Discontinue saline lock post exam. If Pt. has a central line or IVAD, may access for administration according to line specific nursing protocol. Once exam is complete flush line and de-access according to line specific nursing protocol in the CT contrast administration guidelines link. 1 Each 11/29/2023 Active Start: 11-29-2023 iv contrast (w ill be provided with radiology test) Indications: Disseminated malignant neoplasm of ovary, unspecified laterality (HCC) , Peritoneal carcinomatosis (HCC) , Malignant neoplasm of both ovaries (HCC) CT Chest W -Inject, intravenously, once for 1 dose.No IV access, insert saline lock prior to the beginning of sedation, infusion, injection of imaging exam. Discontinue saline lock post exam. If Pt. has a central line or IVAD, may access for administration according to line specific nursing protocol. Once exam is complete flush line and de-access according to line specific nursing protocol in the CT contrast administration guidelines link. 1 Each 0 11/29/2023 Active Start: 11-29-2023 iv contrast (w ill be provided with radiology test) Indications: Disseminated malignant neoplasm of ovary, unspecified laterality (HCC) , Peritoneal carcinomatosis (HCC) , Malignant neoplasm of both ovaries (HCC) CT ABD/PEL -Inject, intravenously, once for 1 dose.No IV access, insert saline lock prior to the beginning of sedation, infusion, injection of imaging exam. Discontinue saline lock post exam. If Pt. has a central line or IVAD, may access for administration according to line specific nursing protocol. Once exam is complete flush line and de-access according to line specific nursing protocol in the CT contrast administration guidelines link. 1 Each 0 11/29/2023 Active Start: 10-05-2023 End: 10-06-2023 inject 1 dose intravenously once iv contrast (will be provided with radiology test) MRI Brain Inject, intravenously, once for 1 dose.No IV access, insert saline lock prior to beginning of sedation, infusion, injection of imaging exam.Discontinue saline lock post exam. If Pt. has a central line or IVAD, may access for administration according to line specific nursing protocol.Once exam is complete flush line and de-access according to line specific nursing protocol in the MR contrast administration guidelines link 1 Each 0 10/05/2023 10/06/2023 Active Start: 09-05-2023 End: 10-05-2023 iv contrast (will be provide d with radiology test) Indications: Malignant neoplasm of both ovaries (HCC) , Peritoneal carcinomatosis (HCC) CT Chest W -Inject, intravenously, once for 1 dose.No IV access, insert saline lock prior to the beginning of sedation, infusion, injection of imaging exam. Discontinue saline lock post exam. If Pt. has a central line or IVAD, may access for administration according to line specific nursing protocol. Once exam is complete flush line and de-access according to line specific nursing protocol in the CT contrast administration guidelines link. 1 Each 0 09/05/2023 10/05/2023 Discontinued Start: 09-05-2023 End: 10-05-2023 iv contrast (will be provide d with radiology test) Indications: Malignant neoplasm of both ovaries (HCC) , Peritoneal carcinomatosis (HCC) CT ABD/PEL -Inject, intravenously, once for 1 dose.No IV access, insert saline lock prior to the beginning of sedation, infusion, injection of imaging exam. Discontinue saline lock post exam. If Pt. has a central line or IVAD, may access for administration according to line specific nursing protocol. Once exam is complete flush line and de-access according to line specific nursing protocol in the CT contrast administration guidelines link. 1 Each 0 09/05/2023 10/05/2023 Discontinued Start: 09-05-2023 iv contrast (w ill be provided with radiology test) Indications: Malignant neoplasm of both ovaries (HCC) , Peritoneal carcinomatosis (HCC) CT Chest W -Inject, intravenously, once for 1 dose.No IV access, insert saline lock prior to the beginning of sedation, infusion, injection of imaging exam. Discontinue saline lock post exam. If Pt. has a central line or IVAD, may access for administration according to line specific nursing protocol. Once exam is complete flush line and de-access according to line specific nursing protocol in the CT contrast administration guidelines link. 1 Each 0 09/05/2023 Active Start: 09-05-2023 iv contrast (w ill be provided with radiology test) Indications: Malignant neoplasm of both ovaries (HCC) , Peritoneal carcinomatosis (HCC) CT ABD/PEL -Inject, intravenously, once for 1 dose.No IV access, insert saline lock prior to the beginning of sedation, infusion, injection of imaging exam. Discontinue saline lock post exam. If Pt. has a central line or IVAD, may access for administration according to line specific nursing protocol. Once exam is complete flush line and de-access according to line specific nursing protocol in the CT contrast administration guidelines link. 1 Each 0 09/05/2023 Active Start: 06-20-2023 End: 08-10-2023 iv contrast (will be provide d with radiology test) Indications: Ovarian cancer, bilateral (HCC) CT Chest ABD/PEL-Inject, intravenously, once for 1 dose.No IV access, insert saline lock prior to the beginning of sedation, infusion, injection of imaging exam. Discontinue saline lock post exam. If Pt. has a central line or IVAD, may access for administration according to line specific nursing protocol. Once exam is complete flush line and de-access according to line specific nursing protocol in the CT contrast administration guidelines link. 1 Each 0 06/20/2023 08/10/2023 Discontinued Start: 06-20-2023 iv contrast (w ill be provided with radiology test) Indications: Ovarian cancer, bilateral (HCC) CT Chest ABD/PEL-Inject, intravenously, once for 1 dose.No IV access, insert saline lock prior to the beginning of sedation, infusion, injection of imaging exam. Discontinue saline lock post exam. If Pt. has a central line or IVAD, may access for administration according to line specific nursing protocol. Once exam is complete flush line and de-access according to line specific nursing protocol in the CT contrast administration guidelines link. 1 Each 0 06/20/2023 Active Start: 03-22-2023 End: 06-20-2023 iv contrast (will be provide d with radiology test) Indications: Malignant neoplasm of both ovaries (HCC) CT Chest ABD/PEL-Inject, intravenously, once for 1 dose.No IV access, insert saline lock prior to the beginning of sedation, infusion, injection of imaging exam. Discontinue saline lock post exam. If Pt. has a central line or IVAD, may access for administration according to line specific nursing protocol. Once exam is complete flush line and de-access according to line specific nursing protocol in the CT contrast administration guidelines link. 1 Each 0 03/22/2023 06/20/2023 Discontinued Start: 03-22-2023 iv contrast (w ill be provided with radiology test) Indications: Malignant neoplasm of both ovaries (HCC) CT Chest ABD/PEL-Inject, intravenously, once for 1 dose.No IV access, insert saline lock prior to the beginning of sedation, infusion, injection of imaging exam. Discontinue saline lock post exam. If Pt. has a central line or IVAD, may access for administration according to line specific nursing protocol. Once exam is complete flush line and de-access according to line specific nursing protocol in the CT contrast administration guidelines link. 1 Each 0 03/22/2023 Active Start: 06-07-2022 End: 06-08-2022 iv contrast (will be provide d with radiology test) MRI PANC/MAXIMUS Inject, intravenously, once for 1 dose. No IV access, insert saline lock prior to the beginning of sedation, infusion, injection of imaging exam. Discontinue saline lock post exam. If Pt. has a central line or IVAD, may access for administration according to line specific nursing protocol. Once exam is complete flush line and de-access according to line specific nursing protocol in the MR contrast administration guidelines link. 1 Each 0 06/07/2022 06/08/2022 Active Comment on above: MRI PANC/MAXIMUS Inject, intravenously, once for 1 dose. No IV access, insert saline lock prior to the beginning of sedation, infusion, injection of imaging exam. Discontinue saline lock post exam. If Pt. has a central line or IVAD, may access for administration according to line specific nursing protocol. Once exam is complete flush line and de-access according to line specific nursing protocol in the MR contrast administration guidelines link. CT Chest ABD/PEL-Inj ect, intravenously, once for 1 dose.No IV access, insert saline lock prior to the beginning of sedation, infusion, injection of imaging exam. Discontinue saline lock post exam. If Pt. has a central line or IVAD, may access for administration according to line specific nursing protocol. Once exam is complete flush line and de-access according to line specific nursing protocol in the CT contrast administration guidelines link. CT Chest W -Inject, intravenously, once for 1 dose.No IV access, insert saline lock prior to the beginning of sedation, infusion, injection of imaging exam. Discontinue saline lock post exam. If Pt. has a central line or IVAD, may access for administration according to line specific nursing protocol. Once exam is complete flush line and de-access according to line specific nursing protocol in the CT contrast administration guidelines link. CT ABD/PEL -Inject, intravenously, once for 1 dose.No IV access, insert saline lock prior to the beginning of sedation, infusion, injection of imaging exam. Discontinue saline lock post exam. If Pt. has a central line or IVAD, may access for administration according to line specific nursing protocol. Once exam is complete flush line and de-access according to line specific nursing protocol in the CT contrast administration guidelines link. MRI Brain Inject, in travenously, once for 1 dose.No IV access, insert saline lock prior to beginning of sedation, infusion, injection of imaging exam.Discontinue saline lock post exam. If Pt. has a central line or IVAD, may access for administration according to line specific nursing protocol.Once exam is complete flush line and de-access according to line specific nursing protocol in the MR contrast administration guidelines link 10 ml lidocaine hydrochloride 10 mg/ml injection (1 source) Antiarrhythmic, Amide Local Anesthetic Start: 2 End: 2 lidocaine 1 % injection 1 mL LORazepam 0.5 mg oral tablet (14 sources) Benzodiazepine Start: 3 End: 3 take 0.5 tablet by mouth three times daily as needed LORazepam (ATIVAN) 0.5 mg Indications: Malignant neoplasm of both ovaries (HCC) Take 0.5 tablets by mouth three times daily as needed for up to 30 days. 20 tablet 0 02/23/2023 03/25/2023 Active Start: 06-28-2022 End: 06-28-2022 LORazepam (ATIVAN) injection 0.5 mg Comment on above: Take 0.5 tablets by mouth three times daily as needed for up to 30 days. Magnesium Hydroxide (20 sources) magnesium hydrox brittany (MILK OF MAGNESIA ORAL) Take by mouth as needed. Active magnesium hydrox brittany (MILK OF MAGNESIA ORAL) Take by mouth as needed. 0 Active magnesium hydrox brittany (Milk of Magnesia) 800 MG/5ML suspension Take by mouth Daily as needed for constipation. 0 Active Magnesium Hydrox brittany (MILK OF MAGNESIA PO) Take 1 CUP by mouth as needed 0 Active Comment on above: Take by mouth as nee ded. 1 ml meperidine hydrochloride 25 mg/ml cartridge (1 source) Opioid Agonist Start: 06-28-20 meperidine (DEMEROL) injection 12.5 mg methylPREDNISolone (7 sources) Corticosteroid Start: 06-01-20 End: 06-06-20 methylPREDNISolone (MEDROL, CROW,) 4 mg Dose-Pack As Instructed per package 21 tablet 0 06/01/2023 06/06/2023 Active Start: 05-22-2023 End: 05-27-2023 methylPREDNISolone (MEDROL, CROW,) 4 mg Dose-Pack As Instructed per package 21 tablet 0 05/22/2023 05/27/2023 Active Comment on above: As Instructed per gustavo cobb niraparib 100 mg oral capsule (1 source) Start: 12-13-2022 take 2 capsules by mouth once daily niraparib (Zejula) 100 MG chemo capsule Indications: Ovarian cancer, bilateral (HCC) Take 2 capsules (200 mg total) by mouth daily. Swallow whole. 60 capsule 2 12/13/2022 Active OTC PRODUCT (20 sources) take 1 tablet by mouth once daily OTC PRODUCT Take 1 tablet by mouth once daily. Odalys Active take 1 tablet by mouth once mat y OTC PRODUCT Take 1 tablet by mouth once daily. Odalys 0 Active pantoprazole 40 mg delayed release oral tablet (8 sources) Proton Pump Inhibitor Start: 08-05-2024 take 1 tablet by mouth once daily pantoprazole DR (PROTONIX) 40 mg tablet Take 1 tablet by mouth once daily. 30 tablet 2 08/05/2024 Active Start: 12-08-2023 End: 12-29-2023 take 1 tablet by mouth once daily pantoprazole DR (PROTONIX) 40 mg tablet Take 1 tablet by mouth once daily. 30 tablet 5 12/08/2023 12/29/2023 Discontinued Comment on above: Take 1 tablet by lubna th once daily. polyethylene glycol 3350 [id number] mg powder for oral solution (3 sources) Osmotic Laxative Start: 07-08-2022 End: 07-08-2023 polyethylene glycol (GLYCOLAX) 17 GM/SCOOP powder Take 17 g by mouth daily 1530 g 1 07/08/2022 08/07/2022 Active Polyethylene Glycols (20 sources) polyethylene gly col 3350 (MIRALAX ORAL) Take by mouth two times a day as needed. Active polyethylene gly col 3350 (MIRALAX ORAL) Take by mouth two times a day as needed. 0 Active polyethylene gly col 3350 (MIRALAX ORAL) Take by mouth two times a day. 0 Active polyethylene gly col 3350 (MIRALAX ORAL) Take by mouth once daily. 0 Active Comment on above: Take by mouth once d aily. Take by mouth two ti mes a day. prochlorperazine 10 mg oral tablet (3 sources) Phenothiazine Start: take 1 tablet by mouth every six hours as needed for nausea prochlorperazine (COMPAZINE) 10 MG tablet Indications: Malignant neoplasm of ovary, unspecified laterality (HCC) Take 1 tablet by mouth every 6 hours as needed (nausea/vomiting) 30 tablet 2 06/30/2022 Active promethazine hydrochloride 25 mg oral tablet (20 sources) Phenothiazine Start: take 1 tablet by mouth every six hours as needed for nausea promethazine (PHENERGAN) 25 mg tablet Indications: Malignant neoplasm of both ovaries (HCC) Take 1 tablet by mouth every 6 hours as needed (For chemotherapy induced nausea/vomiting). FOR NAUSEA 30 tablet 2 06/26/2024 Active triamcinolone acetonide 0.001 mg/mg topical ointment (1 source) Corticosteroid Start: End: triamcinolone (KENALOG) 0.1 % ointment Indications: Skin rash Apply topically 2 times daily for 7 days 30 g 0 07/22/2022 07/29/2022 Active Completed/Discontinued Medications Medication Drug Class(es) Dates Sig (Normalized) Sig (Original) acetaminophen 300 mg / codeine phosphate 30 mg oral tablet (20 sources) Opioid Agonist Start: 02-21-2023 End: 05-09-2023 acetaminophen-code ine (TYLENOL-COD #3) 300-30 mg per tablet Take by mouth as needed. 0 02/21/2023 05/09/2023 Discontinued Comment on above: Take by mouth as nee ded. amoxicillin 500 mg oral capsule (6 sources) Penicillin-class Antibacterial Start: 07-26-2024 End: 08-05-2024 amoxicillin (AMOXIL) 500 mg capsule Take 1 capsule by mouth three times a day for 10 days. FOR 10 DAYS. 30 capsule 07/26/2024 08/05/2024 Discontinued aspirin 81 mg chewable tablet (20 sources) Platelet Aggregation Inhibitor, Nonsteroidal Anti-inflammatory Drug Start: 05-09-2023 End: 08-05-2024 take 1 tablet by mouth once daily at bedtime aspirin 81 mg chewable tablet Take 1 tablet by mouth daily at bedtime. 05/09/2023 08/05/2024 Discontinued Start: 06-28-2022 aspirin chewab le tablet 81 mg Start: 09-14-2021 End: 05-09-2023 take 1 tablet by mouth once daily aspirin, enteric coated (ASPIRIN, ENTERIC COATED) 81 mg EC tablet Take 81 mg by mouth once daily. 09/14/2021 05/09/2023 Discontinued Comment on above: Take 81 mg by mouth once daily. Take 1 tablet by lubna th daily at bedtime. CARBOplatin (PARAPLATIN) 400 mg in sodium chloride 0.9 % 250 mL chemo IVPB (1 source) Start: 07-01-2022 End: 07-01-2022 CARBOplatin (PARAPLATIN) 400 mg in sodium chloride 0.9 % 250 mL chemo IVPB chlorhexidine gluconate 20 mg/ml medicated pad (1 source) Start: 06-28-2022 End: 06-28-2022 chlorhexidine 2% cloth Start: 06-28-2022 End: 06-28-2022 chlorhexidine 2% cloth dexamethasone 4 mg oral tablet (20 sources) Corticosteroid Start: 06-26-2024 End: 08-05-2024 take 1 tablet by mouth twice daily at mealtime dexAMETHasone (DECADRON) 4 mg tablet Take 1 tablet by mouth two times a day with meals. for 3 days beginning the day after chemotherapy treatment. 30 tablet 06/26/2024 08/05/2024 Discontinued Start: 10-05-2023 End: 12-20-2023 dexAMETHasone (DECADRON) 4 m g tablet Take 1 tablet twice the day prior to and the day after each chemotherapy treatment. 24 tablet 1 10/05/2023 12/20/2023 Discontinued Start: 07-22-2022 dexamethasone (DECADRON) 4 MG tablet Take 5 tablets (20mg) 12 hours AND 6 hours prior to chemotherapy. 10 tablet 0 07/22/2022 Active Comment on above: Take 1 tablet twice the day prior to and the day after each chemotherapy treatment. dexamethasone (DECADRON) 12 mg in sodium chloride 0.9 % 50 mL IVPB (2 sources) Start: 07-25-2022 End: 07-25-2022 dexamethasone (DECADRON) 12 mg in sodium chloride 0.9 % 50 mL IVPB Start: 07-01-2022 End: 07-01-2022 dexamethasone (DECADRON) 12 mg in sodium chloride 0.9 % 50 mL IVPB diphenhydrAMINE (2 sources) Histamine-1 Receptor Antagonist Start: 12-28-2023 End: 12-28-2023 diphenhydrAMINE 25 mg injection (BENADRYL) Start: 06-28-2022 End: 06-28-2022 diphenhydrAMINE (BENADRYL) i njection 12.5 mg diphenhydrAMINE (BENADRYL) 5 0 mg, famotidine (PEPCID) 20 mg in sodium chloride 0.9 % 50 mL IVPB (2 sources) Start: 07-25-2022 End: 07-25-2022 diphenhydrAMINE (BENADRYL) 5 0 mg, famotidine (PEPCID) 20 mg in sodium chloride 0.9 % 50 mL IVPB Start: 07-01-2022 End: 07-01-2022 diphenhydrAMINE (BENADRYL) 5 0 mg, famotidine (PEPCID) 20 mg in sodium chloride 0.9 % 50 mL IVPB [id number] te (BMX 1:1:1) 1:1:1 liqd (20 sources) Start: 05-18-2023 End: 10-05-2023 take 10 mL by mouth every four hours as needed for pain [id number]-oyduna-zzcucbhly (BMX 1:1:1) 1:1:1 liqd Indications: Malignant neoplasm of both ovaries (HCC) , Sore in mouth Take 10 mL by mouth every 4 hours as needed (Swish and spit every hour for mouth sore pain relief.). 300 mL 1 05/18/2023 10/05/2023 Discontinued Start: 05-18-2023 take 10 mL by mouth every four hours as needed for pain [id number] (BMX 1: 1:1) 1:1:1 liqd Indications: Malignant neoplasm of both ovaries (HCC) , Sore in mouth Take 10 mL by mouth every 4 hours as needed (Swish and spit every hour for mouth sore pain relief.). 300 mL 1 05/18/2023 Active Comment on above: Take 10 mL by mouth every 4 hours as needed (Swish and spit every hour for mouth sore pain relief.). DULoxetine 30 mg delayed release oral capsule (20 sources) Serotonin and Norepinephrine Reuptake Inhibitor Start: 02-10-20 End: 07-31-20 take 1 capsule by mouth once daily DULoxetine (CYMBALTA) 30 mg capsule Take 1 capsule by mouth once daily. 90 capsule 3 07/12/2023 07/31/2024 Discontinued Comment on above: Take [address] [facility] once daily. ezetimibe 10 mg oral tablet (20 sources) Dietary Cholesterol Absorption Inhibitor Start: 12-18-19 End: 06-26-20 take 1 tablet by mouth once daily ezetimibe (ZETIA) 10 mg tablet Take 10 mg by mouth once daily. 12/17/2021 06/26/2024 Discontinued Comment on above: Take 10 mg by mouth once daily. famotidine 20 mg oral tablet (1 source) Histamine-2 Receptor Antagonist Start: 06-28-20 End: 06-28-20 famotidine (PEPCID) tablet 20 mg folic acid 1 mg oral tablet (20 sources) Start: 10-05-20 End: 04-10-20 take 1 tablet by mouth once daily folic acid 1 mg tablet Take 1 tablet by mouth once daily. 90 tablet 3 10/05/2023 04/10/2024 Discontinued Comment on above: Take 1 tablet by [facility] once daily. fosaprepitant (EMEND) 150 mg in sodium chloride 0.9 % 250 mL IVPB (2 sources) Start: 07-25-20 End: 07-25-20 fosaprepitant (EMEND) 150 mg in sodium chloride 0.9 % 250 mL IVPB Start: 07-01-2022 End: 07-01-2022 fosaprepitant (EMEND) 150 mg in sodium chloride 0.9 % 250 mL IVPB fosaprepitant 150 mg in NaCl 0.9% 250 mL (EMEND) (2 sources) Start: 07-04-2024 End: 07-04-2024 150 mg, INTRAVENOUS, Adminis ter over 30 Minutes, ONCE, 1 dose, On Sirena 07/04/24 at 1000, Approximate Total Volume = 280 mL Refrigerate Start: 06-28-2024 End: 06-28-2024 150 mg, INTRAVENOUS, Adminis ter over 30 Minutes, ONCE, 1 dose, On Mon06/28/24 at 0830, Refrigerate gabapentin 100 mg oral capsule (20 sources) Anti-epileptic Agent Start: 02-09-2023 End: 05-10-2023 take 2 capsules by mouth once daily at bedtime gabapentin (NEURONTIN) 100 mg capsule Take 2 capsules by mouth daily at bedtime for 90 days. 60 capsule 2 02/09/2023 05/09/2023 Discontinued Start: 08-18-2022 End: 02-09-2023 take 1 capsule by mouth once daily gabapentin (NEURONTIN) 300 mg capsule Take 300 mg by mouth once daily. 08/18/2022 02/09/2023 Discontinued Start: 06-28-2022 End: 06-28-2022 gabapentin (NEURONTIN) capsu le 100 mg Comment on above: Take 300 mg by mouth once daily. Take 2 capsules by m outh daily at bedtime for 90 days. hydrOXYzine pamoate 25 mg oral capsule (1 source) Antihistamine Start: End: take 1 capsule by mouth three times daily as needed for anxiety hydrOXYzine pamoate (VISTARIL) 25 mg capsule Indications: Anxiety hyperventilation Take 1 capsule by mouth three times daily as needed for Anxiety. 15 capsule 2 05/27/2020 12/27/2021 Discontinued ibuprofen 400 mg oral tablet (1 source) Nonsteroidal Anti-inflammatory Drug Start: End: take 1 tablet by mouth every six hours as needed ibuprofen (MOTRIN) 400 mg tablet Take 400 mg by mouth every 6 hours as needed. 0 12/23/2021 02/09/2022 Discontinued Comment on above: Take 400 mg by mouth every 6 hours as needed. magnesium oxide 200 mg oral tablet (20 sources) End: take 2 tablets by mouth once daily magnesium oxide 200 mg magnesium tab Take 2 tablets by mouth once daily. 0 05/09/2023 Discontinued Comment on above: Take 2 tablets by [facility] once daily. 24 hr nicotine 0.292 mg/hr transdermal system (18 sources) Cholinergic Nicotinic Agonist Start: End: nicotine (NICODERM) 7 mg/24 hr Indications: Tobacco abuse Apply 1 Patch as directed every 24 hours. 28 Patch 5 12/27/2021 02/23/2023 Discontinued Comment on above: Apply 1 Patch as dir ected every 24 hours. nitrofurantoin, macrocrystals 25 mg / nitrofurantoin, monohydrate 75 mg oral capsule (8 sources) Nitrofuran Antibacterial take 1 capsule by mouth twice daily nitrofurantoin monohydrate and macrocrystal (MACROBID) 100 mg capsule Take 100 mg by mouth two times a day. 2 days left 0 Active Comment on above: Take 100 mg by mouth two times a day. 2 days left OLANZapine 5 mg oral tablet (20 sources) Atypical Antipsychotic Start: End: take 1 tablet by mouth once daily at bedtime OLANZapine (ZYPREXA) 5 mg tablet Take 1 tablet by mouth daily at bedtime. beginning the evening of first day of chemotherapy each cycle. 16 tablet 06/26/2024 08/05/2024 Discontinued 2 ml ondansetron 2 mg/ml injection (20 sources) Serotonin-3 Receptor Antagonist Start: End: 8 mg, INTRAVENOUS, ONCE, 1 dose, On Mon07/04/24 at 1000 Start: 06-28-2024 End: 06-28-2024 8 mg, INTRAVENOUS, ONCE, 1 d ose, On Mon06/28/24 at 0800 Start: 06-13-2024 End: 06-13-2024 8 mg, INTRAVENOUS, ONCE, 1 d ose, On Mon06/13/24 at 0930 Start: 06-06-2024 End: 06-06-2024 8 mg, INTRAVENOUS, ONCE, 1 d ose, On Mon06/06/24 at 0900 Start: 05-23-2024 End: 05-23-2024 ondansetron (PF) 8 mg inject ion (ZOFRAN) Start: 05-16-2024 End: 05-16-2024 ondansetron (PF) 8 mg inject ion (ZOFRAN) Start: 05-10-2024 End: 05-10-2024 ondansetron (PF) 8 mg inject ion (ZOFRAN) Start: 04-26-2024 End: 04-26-2024 ondansetron (PF) 8 mg inject ion (ZOFRAN) Start: 04-19-2024 End: 04-19-2024 ondansetron (PF) 8 mg inject ion (ZOFRAN) Start: 04-11-2024 End: 04-11-2024 ondansetron (PF) 8 mg inject ion (ZOFRAN) Start: 03-28-2024 End: 03-28-2024 ondansetron (PF) 8 mg inject ion (ZOFRAN) Start: 03-21-2024 End: 03-21-2024 ondansetron (PF) 8 mg inject ion (ZOFRAN) Start: 03-07-2024 End: 03-07-2024 ondansetron (PF) 8 mg inject ion (ZOFRAN) Start: 02-29-2024 End: 02-29-2024 ondansetron (PF) 8 mg inject ion (ZOFRAN) Start: 02-22-2024 End: 02-22-2024 ondansetron (PF) 8 mg inject ion (ZOFRAN) Start: 02-09-2024 End: 02-09-2024 ondansetron (PF) 8 mg inject ion (ZOFRAN) Start: 12-29-2023 take 1 tablet by lubna th every eight hours as needed for nausea and vomiting ondansetron (ZOFRAN) 8 mg tablet Indications: Peritoneal carcinomatosis (HCC) Take 1 tablet by mouth every 8 hours as needed for nausea/vomiting (For chemotherapy induced nausea and vomiting). 30 tablet 2 12/29/2023 Active Start: 06-30-2022 End: 07-30-2022 take 1 tablet by mouth every eight hours as needed for nausea ondansetron (ZOFRAN) 8 MG tablet Indications: Malignant neoplasm of ovary, unspecified laterality (HCC) Take 1 tablet by mouth every 8 hours as needed for Nausea or Vomiting 30 tablet 2 06/30/2022 07/30/2022 Active Start: 06-28-2022 End: 06-28-2022 ondansetron (ZOFRAN) injecti on 4 mg Comment on above: Take 1 tablet by lubna th every 8 hours as needed for nausea/vomiting (For chemotherapy induced nausea and vomiting). OTC NUTRITIONAL SUPPLEMENT (20 sources) End: 05-09-20 take 1 capsule by mouth once daily OTC NUTRITIONAL SUPPLEMENT Take 1 capsule by mouth once daily. Ashwagandha Root by [employer] 0 05/09/2023 Discontinued End: 05-09-2023 take 1 capsule by mouth once daily OTC NUTRITIONAL SUPPLEMENT Take 1 capsule by mouth once daily. Ferrasorb by [employer] 0 05/09/2023 Discontinued take 1 capsule by mo uth once daily OTC NUTRITIONAL SUPPLEMENT Take 1 capsule by mouth once daily. Ashwagandha Root by [employer] 0 Active take 1 capsule by mo uth once daily OTC NUTRITIONAL SUPPLEMENT Take 1 capsule by mouth once daily. Ferrasorb by [employer] 0 Active Comment on above: Take 1 capsule by mo uth once daily. Ashwagandha Root by [employer] Take 1 capsule by mo uth once daily. [employer]orb [employer] oxyCODONE hydrochloride 5 mg oral tablet (3 sources) Opioid Agonist Start: 06-28-2022 End: 07-01-2022 oxyCODONE (ROXICODONE) 5 MG immediate release tablet Indications: S/P laparoscopy Take 1 tablet by mouth every 6 hours as needed for Pain for up to 3 days. Intended supply: 3 days. Take lowest dose possible to manage pain 12 tablet 0 06/28/2022 07/01/2022 PACLitaxel 100 mg injection (12 sources) Microtubule Inhibitor Start: 05-23-2024 End: 05-23-2024 PACLitaxel protein-bound 158 mg injection (ABRAXANE) Start: 05-16-2024 End: 05-16-2024 PACLitaxel protein-bound 158 mg injection (ABRAXANE) Start: 05-10-2024 End: 05-10-2024 PACLitaxel protein-bound 158 mg injection (ABRAXANE) Start: 04-26-2024 End: 04-26-2024 PACLitaxel protein-bound 158 mg injection (ABRAXANE) Start: 04-19-2024 End: 04-19-2024 PACLitaxel protein-bound 158 mg injection (ABRAXANE) Start: 04-11-2024 End: 04-11-2024 PACLitaxel protein-bound 158 mg injection (ABRAXANE) Start: 03-28-2024 End: 03-28-2024 PACLitaxel protein-bound 151 mg injection (ABRAXANE) Start: 03-21-2024 End: 03-21-2024 PACLitaxel protein-bound 151 mg injection (ABRAXANE) Start: 03-07-2024 End: 03-07-2024 PACLitaxel-protein bound 151 mg in NaCl 0.9% (ABRAXANE) Start: 02-29-2024 End: 02-29-2024 PACLitaxel-protein bound 151 mg in NaCl 0.9% (ABRAXANE) Start: 02-22-2024 End: 02-22-2024 PACLitaxel-protein bound 151 mg in NaCl 0.9% (ABRAXANE) Start: 02-09-2024 End: 02-09-2024 PACLitaxel-protein bound 151 mg in NaCl 0.9% (ABRAXANE) PACLitaxel (TAXOL) 276 mg in sodium chloride 0.9 % 500 mL chemo infusion (2 sources) Start: 07-25-2022 End: 07-25-2022 PACLitaxel (TAXOL) 276 mg in sodium chloride 0.9 % 500 mL chemo infusion Start: 07-01-2022 End: 07-01-2022 PACLitaxel (TAXOL) 276 mg in sodium chloride 0.9 % 500 mL chemo infusion 5 ml palonosetron 0.05 mg/ml injection (2 sources) Serotonin-3 Receptor Antagonist Start: 07-25-2022 End: 07-25-2022 palonosetron (ALOXI) injection 0.25 mg Start: 07-01-2022 End: 07-01-2022 palonosetron (ALOXI) injecti on 0.25 mg predniSONE 10 mg oral tablet (5 sources) Start: 12-20-2023 End: 12-29-2023 take 1 tablet by mouth once daily predniSONE (DELTASONE) 10 mg tablet Take 1 tablet by mouth once daily. 30 tablet 1 12/20/2023 12/29/2023 Discontinued Comment on above: Take 1 tablet by lubna th once daily. sennosides, care home 8.6 mg oral tablet (20 sources) Start: 07-08-2022 End: 07-08-2023 take 1 tablet by mouth twice daily senna (SENOKOT) 8.6 mg tab Take 1 tablet by mouth twice daily. 07/08/2022 05/09/2023 Discontinued Comment on above: Take 1 tablet by lubna twice daily. 1000 ml sodium chloride 9 mg/ml injection (13 sources) Start: 06-13-2024 End: 06-13-2024 500 mL/hr, INTRAVENOUS, Administer over 1 Hours, ONCE, 1 dose, On Sirena 06/13/24 at 0930, 500 cc over 1 hour. Start: 06-06-2024 End: 06-06-2024 500 mL/hr, INTRAVENOUS, Admi nister over 1 Hours, ONCE, 1 dose, On Sirena 06/06/24 at 0900, 500 cc over 1 hour. Start: 07-25-2022 End: 07-26-2022 0.9 % sodium chloride infusi on Start: 07-01-2022 End: 07-02-2022 0.9 % sodium chloride infusi on Start: 06-28-2022 sodium chlorid e flush 0.9 % injection 5-40 mL Start: 06-28-2022 sodium chlorid e flush 0.9 % injection 5-40 mL Start: 06-28-2022 sodium chlorid e flush 0.9 % injection 5-40 mL Start: 06-28-2022 0.9 % sodium c hloride bolus Start: 06-28-2022 0.9 % sodium c hloride infusion Start: 06-28-2022 sodium chlorid e flush 0.9 % injection 5-40 mL ticagrelor 90 mg oral tablet (11 sources) Start: 09-21-2021 End: 02-09-2023 take 1 tablet by mouth twice daily ticagrelor (BRILINTA) 90 mg tablet Take 90 mg by mouth twice daily. 09/21/2021 02/09/2023 Discontinued Comment on above: Take 90 mg by mouth twice daily. topotecan 4.77 mg in NaCl 0.9% 62.77 mL (HYCAMTIN) (2 sources) Start: 07-04-2024 End: 07-04-2024 4.77 mg (3 mg/m2 1.59 m2 Treatment Plan BSA from Recorded weight), INTRAVENOUS, Administer over 30 Minutes, ONCE, 1 dose, On Sirena 07/04/24 at 1000, Approx Total Volume:exp 1000 07/05/24 (refrigerated) Hazardous Chemotherapy Drug: Use appropriate PPE. Antineoplastic Irritant. Protect from Light. Start: 06-28-2024 End: 06-28-2024 4.77 mg (3 mg/m2 1.59 m2 Loco atment Plan BSA from Recorded weight), INTRAVENOUS, Administer over 30 Minutes, ONCE, 1 dose, On Mon06/28/24 at 0800, Approx Total Volume - Expires: 06/29/24 @ 0800 Hazardous Chemotherapy Drug: Use appropriate PPE. Antineoplastic Irritant. Protect from Light. topotecan 6.36 mg in NaCl 0. 9% 64.36 mL (HYCAMTIN) (2 sources) Start: 06-13-2024 End: 06-13-2024 6.36 mg (4 mg/m2 1.59 m2 Treatment Plan BSA from Recorded weight), INTRAVENOUS, Administer over 30 Minutes, ONCE, 1 dose, On Sirena 06/13/24 at 0930, Approx Total Volume: exp 30 06/14/24 (room temp) Hazardous Chemotherapy Drug: Use appropriate PPE. Antineoplastic Irritant. Protect from Light. Start: 06-06-2024 End: 06-06-2024 6.36 mg (4 mg/m2 1.59 m2 Loco atment Plan BSA from Recorded weight), INTRAVENOUS, Administer over 30 Minutes, ONCE, 1 dose, On Sirena 06/06/24 at 0900, Approx Total Volume: exp 0900 06/07/24 (refrigerated) Hazardous Chemotherapy Drug: Use appropriate PPE. Antineoplastic Irritant. Protect from Light. Problems Active Problems Problem Classification Problem Date Documented Da te Episodic/Chronic Acute and chronic tonsillitis (20 sources) Disorder of lingual tonsil; Translations: [Chronic disease of tonsils and adenoids, unspecified] Onset: 10-05-2023 Chronic Allergic reactions (4 sources) Allergy status to sulfonamides status; Translations: [Allergy status to other drugs, medicaments and biological substances status] Onset: 06-28-2022 Episodic Anxiety disorders (20 sources) Anxiety disorder due to a general medical condition; Translations: [Generalized anxiety disorder] Onset: 02-24-2023 Chronic Cancer of ovary (20 sources) Malignant tumor of ovary; Translations: [Malignant neoplasm of unspecified ovary] Onset: 06-30-2022 06-30-2022 Chronic Chronic obstructive pulmonary disease and bronchiectasis (20 sources) Lung cyst; Translations: [Emphysema, unspecified] Onset: 02-24-2023 Chronic Complication of device; implant or graft (1 source) Disorder of cardiovascular prostheses and implants; Translations: [Other specified complication of vascular prosthetic devices, implants and grafts, initial encounter] Onset: 11-03-2022 11-03-2022 Chronic Coronary atherosclerosis and other heart disease (20 sources) Old myocardial infarction; Translations: [Coronary arteriosclerosis] Onset: 07-07-2022 Chronic Coronary atherosclerosis and other heart disease (2 sources) Presence of coronary angioplasty implant and graft; Translations: [Presence of coronary angioplasty implant and graft] Onset: 07-07-2022 Episodic Disorders of teeth and jaw (1 source) Toothache; Translations: [Other specified disorders of teeth and supporting structures] 07-25-2023 Episodic Fluid and electrolyte disorders (4 sources) Hypo-osmolality and hyponatremia; Translations: [Acidosis] Onset: 07-07-2022 Episodic Headache; including migraine (2 sources) Episodic paroxysmal hemicrania; Translations: [Episodic paroxysmal hemicrania, intractable] Onset: 11-07-2023 10-05-2023 Chronic Maintenance chemotherapy; radiotherapy (3 sources) Patient encounter status; Translations: [Encounter for antineoplastic chemotherapy] Onset: 09-28-2022 09-28-2022 Chronic Malignant neoplasm without specification of site (1 source) Malignant (primary) neoplasm, unspecified; Translations: [Anxiety associated with cancer diagnosis (HCC)] Onset: 02-24-2023 Chronic Nausea and vomiting (10 sources) Nausea; Translations: [Nausea] Onset: 11-29-2023 Episodic Nonmalignant breast conditions (3 sources) Breast lump; Translations: [Unspecified lump in unspecified breast] 05-31-2023 Episodic Nutritional deficiencies (1 source) Nutritional marasmus; Translations: [Unspecified severe protein-calorie malnutrition] Onset: 09-29-2022 09-29-2022 Chronic Other aftercare (2 sources) watermaster (current) use of antithrombotics/antip latelets; Translations: [MCC (current) use of antithrombotics/antip latelets] Onset: 07-07-2022 Episodic Other aftercare (2 sources) watermaster (current) use of aspirin; Translations: [MCC (current) use of aspirin] Onset: 07-07-2022 Episodic Other aftercare (2 sources) Other fdc (current) drug therapy; Translations: [Other fdc (current) drug therapy] Onset: 07-07-2022 Episodic Other aftercare (2 sources) watermaster (current) use of opiate analgesic; Translations: [MCC (current) use of opiate analgesic] Onset: 07-07-2022 Episodic Other aftercare (2 sources) watermaster (current) use of anticoagulants; Translations: [MCC (current) use of anticoagulants] Onset: 06-28-2022 Episodic Other and unspecified benign neoplasm (2 sources) Polyp of colon; Translations: [Polyp of colon] Onset: 07-07-2022 Episodic Other gastrointestinal disorders (1 source) Alteration in bowel elimination; Translations: [Change in bowel habit] Episodic Other gastrointestinal disorders (1 source) Diarrhea; Translations: [Diarrhea, unspecified] Episodic Other gastrointestinal disorders (2 sources) Ulcer of intestine; Translations: [Ulcer of intestine] Onset: 07-07-2022 Episodic Other gastrointestinal disorders (3 sources) Ascites; Translations: [Other ascites] 05-27-2024 Episodic Other gastrointestinal disorders (1 source) Diarrhea of presumed infectious origin; Translations: [Diarrhea, unspecified] 06-13-2024 Episodic Other gastrointestinal disorders (1 source) Other ascites; Translations: [Other ascites] Onset: 07-03-2024 Episodic Other injuries and conditions due to external causes (1 source) Injury of finger; Translations: [Unspecified injury of unspecified wrist, hand and finger(s), initial encounter] 01-04-2021 Episodic Other liver diseases (1 source) Liver disease, unspecified; Translations: [Liver lesion, left lobe] Onset: 02-03-2023 Chronic Other liver diseases (1 source) Lesion of liver; Translations: [Liver disease, unspecified] 02-03-2023 Chronic Other lower respiratory disease (1 source) Solitary pulmonary nodule; Translations: [Nodule of upper lobe of left lung] Onset: 02-03-2023 Episodic Other lower respiratory disease (1 source) Dyspnea on exertion; Translations: [Other forms of dyspnea] Episodic Other lower respiratory disease (1 source) Nodule of lung; Translations: [Solitary pulmonary nodule] 02-03-2023 Episodic Other nervous system disorders (20 sources) Neuropathy caused by chemical substance; Translations: [Drug-induced polyneuropathy] Onset: 02-24-2023 Chronic Other nervous system disorders (2 sources) Polyneuropathy, unspecified; Translations: [Polyneuropathy, unspecified] Onset: 08-18-2022 Chronic Other nervous system disorders (2 sources) Drug-induced polyneuropathy; 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)] Onset: 02-24-2023 Chronic Pancreatic disorders (not diabetes) (1 source) Cyst of pancreas; Translations: [Cyst of pancreas] Episodic Pleurisy; pneumothorax; pulmonary collapse (20 sources) Pleural effusion; Translations: [Pleural effusion, not elsewhere classified] Onset: 05-07-2023 05-01-2023 Episodic Pulmonary heart disease (4 sources) Chronic pulmonary embolism; Translations: [Chronic pulmonary embolism] Onset: 08-05-2024 08-05-2024 Chronic Pulmonary heart disease (1 source) H/O: pulmonary embolus; Translations: [Personal history of pulmonary embolism] 06-26-2024 Episodic Residual codes; unclassified (2 sources) Family history of malignant neoplasm of digestive organs; Translations: [Family history of malignant neoplasm of digestive organs] Onset: 06-28-2022 Episodic Residual codes; unclassified (2 sources) Family history of malignant neoplasm of trachea, bronchus and lung; Translations: [Family history of malig neoplasm of trachea, bronc and lung] Onset: 06-28-2022 Episodic Residual codes; unclassified (2 sources) Family history of malignant neoplasm of ovary; Translations: [Family history of malignant neoplasm of ovary] Onset: 06-28-2022 Episodic Secondary malignancies (9 sources) Secondary malignant neoplasm of peritoneum; 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] Onset: 06-28-2022 Chronic Secondary malignancies (7 sources) Secondary malignant neoplasm of retroperitoneum and peritoneum; Translations: [Secondary malignant neoplasm of retroperiton and peritoneum] Onset: 07-07-2022 Chronic Secondary malignancies (2 sources) Malignant ascites; Translations: [Malignant ascites] Onset: 07-07-2022 Chronic Secondary malignancies (1 source) 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; 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)] Onset: 02-03-2023 Chronic Secondary malignancies (20 sources) Carcinomatosis of peritoneal cavity; 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] Onset: 02-24-2023 Chronic Secondary malignancies (11 sources) Malignant pleural effusion; 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] 05-31-2023 Chronic Secondary malignancies (1 source) Secondary malignant neoplasm of iliac lymph nodes; Translations: [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] 02-03-2023 Chronic Substance-related disorders (2 sources) Nicotine dependence, cigarettes, uncomplicated; Translations: [Nicotine dependence, cigarettes, uncomplicated] Onset: 07-07-2022 Chronic Unclassified (20 sources) Closed fracture of lower end of humerus; Translations: [Fracture of lower end of humerus, closed] Onset: 12-02-2004 07-02-2010 Unclassified (1 source) Elevation of levels of liver transaminase levels; Translations: [Elevation of levels of liver transaminase levels] Onset: 07-07-2022 Unclassified (1 source) Radiology NM Onset: 02-03-2023 Unclassified (1 source) Malignant neoplasm of bilateral ovaries (HCC); Translations: [Malignant neoplasm of bilateral ovaries (HCC)] Onset: 11-25-2022 Unclassified (2 sources) Pre-op Visit; Translations: [Pre-op Visit] Onset: 10-12-2022 Unclassified (1 source) Chemotherapy Treatment Onset: 03-21-2024 Unclassified (1 source) Malignant neoplasm of both ovaries (HCC); Translations: [Malignant neoplasm of both ovaries (HCC)] Onset: 02-23-2023 Past or Other Problems Problem Classification Problem Date Documented Da te Episodic/Chronic Abdominal pain (9 sources) Lower abdominal pain; Translations: [Lower abdominal pain, unspecified] Onset: 2 Episodic Conditions associated with dizziness or vertigo (20 sources) Benign paroxysmal positional vertigo; Translations: [Benign paroxysmal vertigo, unspecified ear] Onset: 0 08-27-2010 Episodic E Codes: Adverse effects of medical drugs (2 sources) Adverse effect of antineoplastic and immunosuppressive drugs, initial encounter; 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)] Onset: 3 Episodic Fracture of upper limb (20 sources) Closed fracture of head of radius; Translations: [Displaced fracture of head of unspecified radius, initial encounter for closed fracture] Onset: 5 07-02-2010 Episodic Intestinal obstruction without hernia (6 sources) Large bowel obstruction; Translations: [Unspecified intestinal obstruction, unspecified as to partial versus complete obstruction] Onset: 2 07-07-2022 Episodic Lymphadenitis (3 sources) Axillary lymphadenopathy; Translations: [Localized enlarged lymph nodes] Onset: 4 12-20-2023 Episodic Nonspecific chest pain (20 sources) Chest wall pain; Translations: [Other chest pain] Onset: 3 05-08-2023 Episodic Other complications of (20 sources) Antepartum deep vein thrombosis; Translations: [Deep phlebothrombosis in , unspecified trimester] Onset: 4 07-24-2014 Episodic Other complications of (1 source) Deep phlebothrombosis in , unspecified trimester; Translations: [DVT (deep vein thrombosis) in ] Onset: 3 Episodic Other diseases of veins and lymphatics (1 source) Difficult venous access; Translations: [Other specified disorders of veins] Onset: 3 11-03-2022 Episodic Other injuries and conditions due to external causes (20 sources) Injury of chest wall; Translations: [Unspecified injury of thorax, initial encounter] Onset: 3 05-08-2023 Episodic Other lower respiratory disease (20 sources) Solitary nodule of lung; Translations: [Solitary pulmonary nodule] Onset: 3 Episodic Other lower respiratory disease (20 sources) Dyspnea; Translations: [Shortness of breath] Onset: 3 05-08-2023 Episodic Other lower respiratory disease (20 sources) Multiple nodules of lung; Translations: [Other nonspecific abnormal finding of lung field] Onset: 3 05-09-2023 Episodic Other screening for suspected conditions (not mental disorders or infectious disease) (20 sources) Patient encounter status; Translations: [Encounter for screening mammogram for malignant neoplasm of breast] Onset: 3 Episodic Phlebitis; thrombophlebitis and thromboembolism (20 sources) Personal history of other venous thrombosis and embolism; Translations: [H/O: Deep vein thrombosis] Onset: 2 Episodic Residual codes; unclassified (20 sources) Tobacco user; Translations: [Tobacco use] Onset: 2 08-13-2012 Episodic Residual codes; unclassified (20 sources) Positive measurement finding; Translations: [Positive test for human papillomavirus (HPV)] Onset: 3 09-05-2013 Episodic Residual codes; unclassified (6 sources) History of laparoscopy; Translations: [Other specified postprocedural states] Onset: 2 Episodic Residual codes; unclassified (1 source) History of abdominal hysterectomy; Translations: [Acquired absence of both cervix and uterus] Onset: 2 09-28-2022 Episodic Residual codes; unclassified (2 sources) Acquired absence of both cervix and uterus; Translations: [Acquired absence of both cervix and uterus] Onset: 2 Episodic Unclassified (1 source) Elevation of levels of liver transaminase levels; Translations: [Elevation of levels of liver transaminase levels] Onset: 2 Unclassified (1 source) Malignant neoplasm of bilateral ovaries (HCC); Translations: [Malignant neoplasm of bilateral ovaries (HCC)] Onset: 3 Viral infection (20 sources) Disease caused by 2019-nCoV; Translations: [COVID-19] Onset: 3 05-09-2023 Episodic Results Test Name Value Interpretation Reference Range Facility CBC W Auto Differential pane l (Bld)on 08-05-2024 Basophils (Bld) [#/Vol] 0.05 10*3/uL [facility] Basophils/100 WBC (Bld) 1.1 % [facility] Differential cell count method Nom (Bld) Auto [facility] Eosinophils (Bld) [#/Vol] 0.07 10*3/uL [facility] Eosinophils/100 WBC (Bld) 1.5 % [facility] Erythrocyte distribution width (RBC) [Ratio] 23.9 % High 11.5 - 15.0 % [facility] Hematocrit (Bld) [Volume fraction] 29.3 % Low 36.0 - 46.0 % [facility] Hemoglobin (Bld) [Mass/Vol] 9.4 g/dL Low 11.5 - 15.5 g/dL [facility] Immature granulocytes (Bld) [#/Vol] NINF [facility] Immature granulocytes/100 WBC (Bld) 0.2 % [facility] Interpretation and review of laboratory results Abnormal [facility] Lymphocytes (Bld) [#/Vol] 0.79 10*3/uL Low [facility] Lymphocytes/100 WBC (Bld) 16.7 % [facility] MCH (RBC) [Entitic mass] 27.2 pg 26.0 - 34.0 pg [facility] MCHC (RBC) [Mass/Vol] 32.1 g/dL 30.5 - 36.0 g/dL [facility] MCV (RBC) [Entitic vol] 84.9 fL 80.0 - 100.0 fL [facility] Monocytes (Bld) [#/Vol] 0.15 10*3/uL NINF [facility] Monocytes/100 WBC (Bld) 3.2 % [facility] Neutrophils (Bld) [#/Vol] 3.65 10*3/uL [facility] Neutrophils/100 WBC (Bld) 77.3 % [facility] Nucleated RBC (Bld) [#/Vol] NINF [facility] Nucleated RBC/100 WBC (Bld) [Ratio] 0.0 % /100 WBC [facility] Platelet mean volume (Bld) [Entitic vol] 9.0 fL 9.0 - 12.7 fL [facility] Platelets (Bld) [#/Vol] 279 10*3/uL [facility] RBC (Bld) [#/Vol] 3.45 10*6/uL Low 3.90 - 5.2 0 m/uL [facility] WBC (Bld) [#/Vol] 4.72 10*3/uL [facility] Basophils (Bld) [#/Vol] 0.05 10*3/uL Normal <0.11 [facility] Comment on above: Order Comment: Speci men Type: BLOOD SPECIMENOrdering Facility: [facility] Address: [address] [place], [place] [id number] Performed By: #### 5 7021-8 ####[facility] MILLMADDIEWNCLIA [id number] [place] [address] [place] Basophils/100 WBC (Bld) 1.1 % Normal [facility] Comment on above: Order Comment: Speci men Type: BLOOD SPECIMENOrdering Facility: [facility] Address: [address] [place] [address] Performed By: #### 5 7021-8 ####[facility] DEVYNWIESHALIA [id number] [place] [address] [place] Differential cell count method Nom (Bld) Auto Normal [facility] Comment on above: Order Comment: Speci men Type: BLOOD SPECIMENOrdering Facility: [facility] Address: [address] [place] [address] Performed By: #### 5 7021-8 ####[facility] DEVYNMadeleineIESHALIA [id number] [place] [address] [place] Eosinophils (Bld) [#/Vol] 0.07 10*3/uL Normal <0.46 [facility] Comment on above: Order Comment: Speci men Type: BLOOD SPECIMENOrdering Facility: [facility] Address: [address] [place] [address] Performed By: #### 5 7021-8 ####[facility] DEVYNMadeleineIESHALIA [id number] [place] [address] [place] Eosinophils/100 WBC (Bld) 1.5 % Normal [facility] Comment on above: Order Comment: Speci men Type: BLOOD SPECIMENOrdering Facility: [facility] Address: [address] [place] [address] Performed By: #### 5 7021-8 ####[facility] DEVYNBEARDENNCLIA [id number] [place] [address] [place] Erythrocyte distribution width (RBC) [Ratio] 23.9 % High 11.5-15.0 [facility] Comment on above: Order Comment: Speci men Type: BLOOD SPECIMENOrdering Facility: [facility] Address: [address] [place] [address] Performed By: #### 5 7021-8 ####[facility] TIMO AUGIENCURI [id number] [place] [address] [place] Hematocrit (Bld) [Volume fraction] 29.3 % Low 36.0-46.0 [facility] Comment on above: Order Comment: Speci men Type: BLOOD SPECIMENOrdering Facility: [facility] Address: [address] [place] [address] Performed By: #### 5 7021-8 ####[facility]ITALKEV [id number] [place] [address] [place] Hemoglobin (Bld) [Mass/Vol] 9.4 g/dL Low 11.5-15.5 [facility] Comment on above: Order Comment: Speci men Type: BLOOD SPECIMENOrdering Facility: [facility] Address: [address] [place] [address] Performed By: #### 5 7021-8 ####[facility] HOSPITALIESHALIA [id number] [place] [address] [place] Immature granulocytes (Bld) [#/Vol] 10*3/uL Normal <0.10 [facility] Comment on above: Order Comment: Speci men Type: BLOOD SPECIMENOrdering Facility: [facility] Address: [address] [place] [address] Performed By: #### 5 7021-8 ####[facility] HOSPITALNCLIA [id number] [place] [address] [place] Immature granulocytes/100 WBC (Bld) 0.2 % Normal [facility] Comment on above: Order Comment: Speci men Type: BLOOD SPECIMENOrdering Facility: [facility] Address: [address] [place] [address] Performed By: #### 5 7021-8 ####[facility] HOSPITALNCLIA [id number] [place] [address] [place] Lymphocytes (Bld) [#/Vol] 0.79 10*3/uL Low 1.00-4.00 [facility] Comment on above: Order Comment: Speci men Type: BLOOD SPECIMENOrdering Facility: [facility] Address: [address] [place] [address] Performed By: #### 5 7021-8 ####[facility] COMMUN[facility] HOSPITALNCA [id number] [place] [address] [place] Lymphocytes/100 WBC (Bld) 16.7 % Normal [facility] Comment on above: Order Comment: Speci men Type: BLOOD SPECIMENOrdering Facility: [facility] Address: [address] [place] [address] Performed By: #### 5 7021-8 ####[facility] HOSPITALLI [id number] [place] [address] [place] MCH (RBC) [Entitic mass] 27.2 pg Normal 26.0-34.0 [facility] Comment on above: Order Comment: Speci men Type: BLOOD SPECIMENOrdering Facility: [facility] Address: [address] [place] [address] Performed By: #### 5 7021-8 ####[facility] HOSPITALLIA [id number] [place] [address] [place] MCHC (RBC) [Mass/Vol] 32.1 g/dL Normal 30.5-36.0 [facility] Comment on above: Order Comment: Speci men Type: BLOOD SPECIMENOrdering Facility: [facility] Address: [address] [place] [address] Performed By: #### 5 7021-8 ####[facility] COMM[facility] HOSPITALNCLI [id number] [place] [address] [place] MCV (RBC) [Entitic vol] 84.9 fL Normal 80.0-100.0 [facility] Comment on above: Order Comment: Speci men Type: BLOOD SPECIMENOrdering Facility: [facility] Address: [address] [place] [address] Performed By: #### 5 7021-8 ####[facility] INSTITUTEA [id number] [place] [address] [place] Monocytes (Bld) [#/Vol] 0.15 10*3/uL Normal <0.87 [facility] Comment on above: Order Comment: Speci men Type: BLOOD SPECIMENOrdering Facility: [facility] Address: [address] [place] [address] Performed By: #### 5 7021-8 ####[facility] [id number] [place] [address] [place] Monocytes/100 WBC (Bld) 3.2 % Normal [facility] Comment on above: Order Comment: Speci men Type: BLOOD SPECIMENOrdering Facility: [facility] Address: [address] [place] [address] Performed By: #### 5 7021-8 ####[facility] HOSPITALLIA [id number] [place] [address] [place] Neutrophils (Bld) [#/Vol] 3.65 10*3/uL Normal 1.45-7.50 [facility] Comment on above: Order Comment: Speci men Type: BLOOD SPECIMENOrdering Facility: [facility] Address: [address] [place] [address] Performed By: #### 5 7021-8 ####[facility] HOSPITALLIA [id number] [place] [address] [place] Neutrophils/100 WBC (Bld) 77.3 % Normal [facility] Comment on above: Order Comment: Speci men Type: BLOOD SPECIMENOrdering Facility: [facility] Address: [address] [place] [address] Performed By: #### 5 7021-8 ####[facility] AUGIENCURI [id number] [place] [address] [place] Nucleated RBC (Bld) [#/Vol] 10*3/uL Normal <0.01 [facility] Comment on above: Order Comment: Speci men Type: BLOOD SPECIMENOrdering Facility: [facility] Address: [address] [place] [address] Performed By: #### 5 7021-8 ####[facility] HOSPITALIESHALINely [id number] [place] [address] [place] Nucleated RBC/100 WBC (Bld) [Ratio] 0.0 /100 WBC Normal [facility] Comment on above: Order Comment: Speci men Type: BLOOD SPECIMENOrdering Facility: [facility] Address: [address] [place] [address] Performed By: #### 5 7021-8 ####[facility] HOSPITALIESHAURI [id number] [place] [address] [place] Platelet mean volume (Bld) [Entitic vol] 9.0 fL Normal 9.0-12.7 [facility] Comment on above: Order Comment: Speci men Type: BLOOD SPECIMENOrdering Facility: [facility] Address: [address] [place] [address] Performed By: #### 5 7021-8 ####[facility] HOSPITALNCLIA [id number] [place] [address] [place] Platelets (Bld) [#/Vol] 279 10*3/uL Normal 150-400 [facility] Comment on above: Order Comment: Speci men Type: BLOOD SPECIMENOrdering Facility: [facility] Address: [address] [place] [address] Performed By: #### 5 7021-8 ####[facility] HOSPITALNCLIA [id number] [place] [address] [place] RBC (Bld) [#/Vol] 3.45 10*6/uL Low 3.90-5.20 [facility] Comment on above: Order Comment: Speci men Type: BLOOD SPECIMENOrdering Facility: [facility] Address: [address] [place] [address] Performed By: #### 5 7021-8 ####[facility] HOSPITALNCLIA [id number] [place] [address] [place] WBC (Bld) [#/Vol] 4.72 10*3/uL Normal 3.70-11.00 [facility] Comment on above: Order Comment: Speci men Type: BLOOD SPECIMENOrdering Facility: [facility] Address: [address] [place] [address] Performed By: #### 5 7021-8 ####[facility] HOSPITALNCLIA [id number] [place] [address] [place] CNOVSPon 08-05-2024 CNOVSP Normal [facility] Cancer Ag125 SerPl-aCncon Cancer Ag 125 Qn 114 [arb'U]/mL High <39 [facility] Comment on above: Order Comment: Speci men Type: BLOOD SPECIMENOrdering Facility: [facility] Address: [address] [place] [address] Result Comment: CA 1 25 test methodology used is the Electrochemiluminescence Immunoassay by [employer]. Results obtained with different methods or kits cannot be used interchangeably.The reference interval is based on the 95th percentile of 240 apparently healthy premenopausal and postmenopausal women. At a cutoff value of 65 U/mL, the test sensitivity to distinguish ovarian carcinoma (FIGO stage I to IV) versus benign gynecological disease is 79%, with a specificity of 82%.Reference: Cancer Antigen 125 (CA 125 II) [package insert V 1.0 Citizen [place]]. [employer], [place], [place] (July 2015) Performed By: #### 1 0334-1 ####[facility] LABCLIA [id number] [place] [address] [place] Comprehensive metabolic 2000 panelOrdered By: Marium Vu on 08-05-2024 Albumin [Mass/Vol] 3.8 g/dL Low 3.9 - 4.9 g/dL [facility] ALP [Catalytic activity/Vol] 73 U/L 34 - 123 U/L [facility] ALT [Catalytic activity/Vol] 12 U/L 7 - 38 U/L [facility] Anion gap [Moles/Vol] 12 mmol/L 8 - 15 mmol/L [facility] AST [Catalytic activity/Vol] 17 U/L 13 - 35 U/L [facility] Bilirubin [Mass/Vol] 0.4 mg/dL 0.2 - 1 .3 mg/dL [facility] Calcium [Mass/Vol] 9.5 mg/dL 8.5 - 10. 2 mg/dL [facility] Chloride [Moles/Vol] 104 mmol/L 98 - 10 7 mmol/L [facility] CO2 [Moles/Vol] 22 mmol/L 22 - 30 mmol/L [facility] Creatinine [Mass/Vol] 0.85 mg/dL 0.58 - 0.96 mg/dL [facility] GFR/1.73 sq M.predicted among non-blacks MDRD (S/P/Bld) [Vol rate/Area] 80 mL/min/{1.73_m2} - PINF [facility] Comment on above: Estimated Glomerular Filtration Rate (eGFR) is calculated using the 2020 CKD-EPI creatinine equation. This equation utilizes serum creatinine, sex, and age as parameters. The creatinine assay has traceable calibration to isotope dilution-mass spectrometry. Refer to KDIGO guidelines for clinical interpretation. In patients with unstable renal function, e.g. those with acute kidney injury, the eGFR may not accurately reflect actual GFR. Glucose [Mass/Vol] 113 mg/dL High 74 - 99 mg/dL [facility] Comment on above: The [place] Diabete s Association (ADA) provides guidance for cutoff values for fasting glucose and random glucose. The ADA defines fasting as no caloric intake for at least 8 hours. Fasting plasma glucose results between 100 to 125 mg/dL indicate increased risk for diabetes (prediabetes). Fasting plasma glucose results greater than or equal to 126 mg/dL meet the criteria for diagnosis of diabetes. In the absence of unequivocal hyperglycemia, results should be confirmed by repeat testing. In a patient with classic symptoms of hyperglycemia or hyperglycemic crisis, random plasma glucose results greater than or equal to 200 mg/dL meet the criteria for diagnosis of diabetes. Reference: Standards of Medical Care in Diabetes 2016, [place] Diabetes Association. Diabetes Care. 2016.39(Suppl 1). Interpretation and review of laboratory results Abnormal [facility] Potassium [Moles/Vol] 4.3 mmol/L 3.7 - 5.1 mmol/L [facility] Protein [Mass/Vol] 6.9 g/dL 6.3 - 8.0 g/dL [facility] Sodium [Moles/Vol] 138 mmol/L 136 - 144 mmol/L [facility] Urea nitrogen [Mass/Vol] 11 mg/dL 7 - 21 mg/dL [facility] Comprehensive metabolic 2000 panelon 08-05-2024 Albumin [Mass/Vol] 3.8 g/dL Low 3.9-4.9 [facility] Comment on above: Order Comment: Speci men Type: BLOOD SPECIMENOrdering Facility: [facility] Address: [address] [place] [address] Performed By: #### 2 4323-8, ####[facility] [id number] [place] [address] [place] ALP [Catalytic activity/Vol] 73 U/L Normal 34-123 [facility] Comment on above: Order Comment: Speci men Type: BLOOD SPECIMENOrdering Facility: [facility] Address: [address] [place] [address] Performed By: #### 2 4323-8, ####[facility] [id number] [place] [address] [place] ALT [Catalytic activity/Vol] 12 U/L Normal 7-38 [facility] Comment on above: Order Comment: Speci men Type: BLOOD SPECIMENOrdering Facility: [facility] Address: [address] [place] [id number] Performed By: #### 2 4323-8, ####[facility] TIMO JOSEPHINELIA [id number] [place] [address] [place] Anion gap [Moles/Vol] 12 mmol/L Normal 8-15 [facility] Comment on above: Order Comment: Speci men Type: BLOOD SPECIMENOrdering Facility: [facility] Address: [address] [place] [address] Performed By: #### 2 4323-8, ####[facility] DEVYNBEARDENKIANA [id number] [place] [address] [place] AST [Catalytic activity/Vol] 17 U/L Normal 13-35 [facility] Comment on above: Order Comment: Speci men Type: BLOOD SPECIMENOrdering Facility: [facility] Address: [address] [place] [address] Performed By: #### 2 4323-8, ####[facility] AUGIEIESHALIA [id number] [place] [address] [place] Bilirubin [Mass/Vol] 0.4 mg/dL Normal 0.2-1.3 [facility] Comment on above: Order Comment: Speci men Type: BLOOD SPECIMENOrdering Facility: [facility] Address: [address] [place] [address] Performed By: #### 2 4323-8, ####[facility] MILLWNCLIA [id number] [place] [address] [place] Calcium [Mass/Vol] 9.5 mg/dL Normal 8.5-10.2 [facility] Comment on above: Order Comment: Speci men Type: BLOOD SPECIMENOrdering Facility: [facility] Address: [address] [place] [address] Performed By: #### 2 4323-8, 73689-3 ####[facility] HOSPITALNCLIA [id number] [place] [address] [place] Chloride [Moles/Vol] 104 mmol/L Normal 98-107 [facility] Comment on above: Order Comment: Speci men Type: BLOOD SPECIMENOrdering Facility: [facility] Address: [address] [place] [address] Performed By: #### 2 4323-8, ####[facility] HOSPITALLIA [id number] [place] [address] [place] CO2 [Moles/Vol] 22 mmol/L Normal 22-30 [facility] Comment on above: Order Comment: Speci men Type: BLOOD SPECIMENOrdering Facility: [facility] Address: [address] [place] [address] Performed By: #### 2 4323-8, 42253-6 ####[facility] HOSPITALLIA [id number] [place] [address] [place] Creatinine [Mass/Vol] 0.85 mg/dL Normal 0.58-0.96 [facility] Comment on above: Order Comment: Speci men Type: BLOOD SPECIMENOrdering Facility: [facility] Address: [address] [place] [address] Performed By: #### 2 4323-8, 28273-0 ####[facility] HOSPITALLIA [id number] [address] [place] OF [facility] Creatinine and Glomerular filtration rate.predicted panel (S/P/Bld) 80 mL/min/1.73m??? Normal >=60 [facility] Comment on above: Order Comment: Speci men Type: BLOOD SPECIMENOrdering Facility: [facility] Address: [address] [place] [address] Result Comment: [place] mated Glomerular Filtration Rate (eGFR) is calculated using the 2020 CKD-EPI creatinine equation. This equation utilizes serum creatinine, sex, and age as parameters. The creatinine assay has traceable calibration to isotope dilution-mass spectrometry. Refer to KDIGO guidelines for clinical interpretation. In patients with unstable renal function, e.g. those with acute kidney injury, the eGFR may not accurately reflect actual GFR. Performed By: #### 2 4323-8, ####[facility] CECILIAWNCLIA [id number] [place] [address] [place] Glucose [Mass/Vol] 113 mg/dL High 74-99 [facility] Comment on above: Order Comment: Tessie cox Type: BLOOD SPECIMENOrdering Facility: [facility] Address: [address] [place] [address] Result Comment: The [place] Diabetes Association (ADA) provides guidance for cutoff values for fasting glucose and random glucose. The ADA defines fasting as no caloric intake for at least 8 hours. Fasting plasma glucose results between 100 to 125 mg/dL indicate increased risk for diabetes (prediabetes).Fasting plasma glucose results greater than or equal to 126 mg/dL meet the criteria for diagnosis of diabetes. In the absence of unequivocal hyperglycemia, results should be confirmed by repeat testing. In a patient with classic symptoms of hyperglycemia or hyperglycemic crisis, random plasma glucose results greater than or equal to 200 mg/dL meet the criteria for diagnosis of diabetes.Reference: Standards of Medical Care in Diabetes 2016, [place] Diabetes Association. Diabetes Care. 2016.39(Suppl 1). Performed By: #### 2 4323-, ####[facility] CENTERWIESHALIA [id number] [place] [address] [place] Potassium [Moles/Vol] 4.3 mmol/L Normal 3.7-5.1 [facility] Comment on above: Order Comment: Tessie cox Type: BLOOD SPECIMENOrdering Facility: [facility] Address: [address] [place] [id number] Performed By: #### 2 4323-8, ####[facility] HEALTHTHUNCLIA [id number] [place] [address] [place] Protein [Mass/Vol] 6.9 g/dL Normal 6.3-8.0 [facility] Comment on above: Order Comment: Speci men Type: BLOOD SPECIMENOrdering Facility: [facility] Address: [address] [place] [address] Performed By: #### 2 4323-8, ####[facility] TIMO MILLMADDIEWKIANA [id number] [place] [address] [place] Sodium [Moles/Vol] 138 mmol/L Normal 136-144 [facility] Comment on above: Order Comment: Speci men Type: BLOOD SPECIMENOrdering Facility: [facility] Address: [address] [place] [address] Performed By: #### 2 4323-8, ####[facility] JOSEPHINELIA [id number] [place] [address] [place] Urea nitrogen [Mass/Vol] 11 mg/dL Normal 7-21 [facility] Comment on above: Order Comment: Speci men Type: BLOOD SPECIMENOrdering Facility: [facility] Address: [address] [place] [address] Performed By: #### 2 4323-8, ####[facility] MILLLOTSUA [id number] [place] [address] [place] MAGNESIUMon 08-05-2024 Magnesium [Mass/Vol] 1.7 mg/dL 1.7 - 2 .3 mg/dL [facility] Magnesium SerPl-mCncon 08-05 Magnesium [Mass/Vol] 1.7 mg/dL Normal 1.7-2.3 [facility] Comment on above: Order Comment: Speci men Type: BLOOD SPECIMENOrdering Facility: [facility] Address: [address] [place] [address] Performed By: #### 2 4323-8, ####[facility] TIMO [facility] [id number] [place] [id number] [place] Magnesium [Mass/Vol]on 08-05 Interpretation and review of laboratory results Normal [facility] No Panel Informationon 08-05 [facility] XR CHEST 2V FRONTAL/LATon XR CHEST 2V FRONTAL/LAT Normal [facility] CBC W Auto Differential pane l (Bld)on 07-29-2024 Basophils (Bld) [#/Vol] 0.07 10*3/uL [facility] Basophils/100 WBC (Bld) 1.4 % [facility] Differential cell count method Nom (Bld) Auto [facility] Eosinophils (Bld) [#/Vol] 0.19 10*3/uL [facility] Eosinophils/100 WBC (Bld) 3.8 % [facility] Erythrocyte distribution width (RBC) [Ratio] 21.1 % High 11.5 - 15.0 % [facility] Hematocrit (Bld) [Volume fraction] 28.1 % Low 36.0 - 46.0 % [facility] Hemoglobin (Bld) [Mass/Vol] 9.0 g/dL Low 11.5 - 15.5 g/dL [facility] Immature granulocytes (Bld) [#/Vol] [facility] Immature granulocytes/100 WBC (Bld) 0.4 % [facility] Interpretation and review of laboratory results Abnormal [facility] Lymphocytes (Bld) [#/Vol] 1.27 10*3/uL [facility] Lymphocytes/100 WBC (Bld) 25.6 % [facility] MCH (RBC) [Entitic mass] 26.3 pg 26.0 - 34.0 pg [facility] MCHC (RBC) [Mass/Vol] 32.0 g/dL 30.5 - 36.0 g/dL [facility] MCV (RBC) [Entitic vol] 82.2 fL 80.0 - 100.0 fL [facility] Monocytes (Bld) [#/Vol] 0.16 10*3/uL [facility] Monocytes/100 WBC (Bld) 3.2 % [facility] Neutrophils (Bld) [#/Vol] 3.25 10*3/uL [facility] Neutrophils/100 WBC (Bld) 65.6 % [facility] Nucleated RBC (Bld) [#/Vol] NINF [facility] Nucleated RBC/100 WBC (Bld) [Ratio] 0.0 % /100 WBC [facility] Platelet mean volume (Bld) [Entitic vol] 9.0 fL 9.0 - 12.7 fL [facility] Platelets (Bld) [#/Vol] 478 10*3/uL High [facility] RBC (Bld) [#/Vol] 3.42 10*6/uL Low 3.90 - 5.2 0 m/uL [facility] WBC (Bld) [#/Vol] 4.96 10*3/uL [facility] Basophils (Bld) [#/Vol] 0.07 10*3/uL Normal <0.11 [facility] Comment on above: Order Comment: Speci men Type: BLOOD SPECIMENOrdering Facility: [facility] Address: [address] [place] [address] Performed By: #### 5 7021-8 ####[facility] [id number] [place] [address] [place] Basophils/100 WBC (Bld) 1.4 % Normal [facility] Comment on above: Order Comment: Speci men Type: BLOOD SPECIMENOrdering Facility: [facility] Address: [address] [place] [address] Performed By: #### 5 7021-8 ####[facility] [id number] [place] [address] [place] Differential cell count method Nom (Bld) Auto Normal [facility] Comment on above: Order Comment: Speci men Type: BLOOD SPECIMENOrdering Facility: [facility] Address: [address] [place] [address] Performed By: #### 5 7021-8 ####[facility] [id number] [place] [address] [place] Eosinophils (Bld) [#/Vol] 0.19 10*3/uL Normal <0.46 [facility] Comment on above: Order Comment: Speci men Type: BLOOD SPECIMENOrdering Facility: [facility] Address: [address] [place] [address] Performed By: #### 5 7021-8 ####[facility] H[facility]PITALNCASH[facility] [id number] [place] [address] [place] Eosinophils/100 WBC (Bld) 3.8 % Normal [facility] Comment on above: Order Comment: Speci men Type: BLOOD SPECIMENOrdering Facility: [facility] Address: [address] [place] [address] Performed By: #### 5 7021-8 ####[facility]PITALNCASH[facility] [id number] [place] [address] [place] Erythrocyte distribution width (RBC) [Ratio] 21.1 % High 11.5-15.0 [facility] Comment on above: Order Comment: Speci men Type: BLOOD SPECIMENOrdering Facility: [facility] Address: [address] [place] [address] Performed By: #### 5 7021-8 ####[facility] [id number] [place] [address] [place] Hematocrit (Bld) [Volume fraction] 28.1 % Low 36.0-46.0 [facility] Comment on above: Order Comment: Speci men Type: BLOOD SPECIMENOrdering Facility: [facility] Address: [address] [place] [address] Performed By: #### 5 7021-8 ####[facility] HOSPITALNCLIA [id number] [place] [address] [place] Hemoglobin (Bld) [Mass/Vol] 9.0 g/dL Low 11.5-15.5 [facility] Comment on above: Order Comment: Speci men Type: BLOOD SPECIMENOrdering Facility: [facility] Address: [address] [place] [address] Performed By: #### 5 7021-8 ####[facility] MILLTOWNCLIA [id number] [place] [address] [place] Immature granulocytes (Bld) [#/Vol] 10*3/uL Normal <0.10 [facility] Comment on above: Order Comment: Speci men Type: BLOOD SPECIMENOrdering Facility: [facility] Address: [address] [place] [address] Performed By: #### 5 7021-8 ####[facility] CENTERWNCLIA [id number] [place] [address] [place] Immature granulocytes/100 WBC (Bld) 0.4 % Normal [facility] Comment on above: Order Comment: Speci men Type: BLOOD SPECIMENOrdering Facility: [facility] Address: [address] [place] [address] Performed By: #### 5 7021-8 ####[facility] HOSPITALLIA [id number] [place] [address] [place] Lymphocytes (Bld) [#/Vol] 1.27 10*3/uL Normal 1.00-4.00 [facility] Comment on above: Order Comment: Speci men Type: BLOOD SPECIMENOrdering Facility: [facility] Address: [address] [place] [address] Performed By: #### 5 7021-8 ####[facility] MILLWNCLIA [id number] [place] [address] [place] Lymphocytes/100 WBC (Bld) 25.6 % Normal [facility] Comment on above: Order Comment: Speci men Type: BLOOD SPECIMENOrdering Facility: [facility] Address: [address] [place] [address] Performed By: #### 5 7021-8 ####[facility] HOSPITALNCLIA [id number] [place] [address] [place] MCH (RBC) [Entitic mass] 26.3 pg Normal 26.0-34.0 [facility] Comment on above: Order Comment: Speci men Type: BLOOD SPECIMENOrdering Facility: [facility] Address: [address] [place] [address] Performed By: #### 5 7021-8 ####[facility] HOSPITALKEV [id number] [address] [place] MCHC (RBC) [Mass/Vol] 32.0 g/dL Normal 30.5-36.0 [facility] Comment on above: Order Comment: Speci men Type: BLOOD SPECIMENOrdering Facility: [facility] Address: [address] [place] [address] Performed By: #### 5 7021-8 ####[facility] [facility]ITAL[facility] [id number] [place] [address] [place] MCV (RBC) [Entitic vol] 82.2 fL Normal 80.0-100.0 [facility] Comment on above: Order Comment: Speci men Type: BLOOD SPECIMENOrdering Facility: [facility] Address: [address] [place] [address] Performed By: #### 5 7021-8 ####[facility] HOSPITALKEV [id number] [place] [address] [place] Monocytes (Bld) [#/Vol] 0.16 10*3/uL Normal <0.87 [facility] Comment on above: Order Comment: Speci men Type: BLOOD SPECIMENOrdering Facility: [facility] Address: [address] [place] [address] Performed By: #### 5 7021-8 ####[facility] COMM[facility] HOSPITALNCLIA [id number] [place] [address] [place] Monocytes/100 WBC (Bld) 3.2 % Normal [facility] Comment on above: Order Comment: Speci men Type: BLOOD SPECIMENOrdering Facility: [facility] Address: [address] [place] [address] Performed By: #### 5 7021-8 ####[facility] DEVYNBEARDENIESHALIA [id number] [place] [address] [place] Neutrophils (Bld) [#/Vol] 3.25 10*3/uL Normal 1.45-7.50 [facility] Comment on above: Order Comment: Speci men Type: BLOOD SPECIMENOrdering Facility: [facility] Address: [address] [place] [address] Performed By: #### 5 7021-8 ####[facility] HOSPITALLIA [id number] [place] [address] [place] Neutrophils/100 WBC (Bld) 65.6 % Normal [facility] Comment on above: Order Comment: Speci men Type: BLOOD SPECIMENOrdering Facility: [facility] Address: [address] [place] [address] Performed By: #### 5 7021-8 ####[facility]A [id number] [place] [address] [place] Nucleated RBC (Bld) [#/Vol] 10*3/uL Normal <0.01 [facility] Comment on above: Order Comment: Speci men Type: BLOOD SPECIMENOrdering Facility: [facility] Address: [address] [place] [address] Performed By: #### 5 7021-8 ####[facility] HOSPITALLIA [id number] [place] [address] [place] Nucleated RBC/100 WBC (Bld) [Ratio] 0.0 /100 WBC Normal [facility] Comment on above: Order Comment: Speci men Type: BLOOD SPECIMENOrdering Facility: [facility] Address: [address] [place] [address] Performed By: #### 5 7021-8 ####[facility] MILLMADDIEWNCLIA [id number] [place] [address] [place] Platelet mean volume (Bld) [Entitic vol] 9.0 fL Normal 9.0-12.7 [facility] Comment on above: Order Comment: Speci men Type: BLOOD SPECIMENOrdering Facility: [facility] Address: [address] [place], [place] [address] Performed By: #### 5 7021-8 ####[facility] CENTERNALLELYLIA [id number] [place] [address] [place] Platelets (Bld) [#/Vol] 478 10*3/uL High 150-400 [facility] Comment on above: Order Comment: Speci men Type: BLOOD SPECIMENOrdering Facility: [facility] Address: [address] [place], [place] [address] Performed By: #### 5 7021-8 ####[facility] CENTERMadeleineIESHALIA [id number] [place] [address] [place] RBC (Bld) [#/Vol] 3.42 10*6/uL Low 3.90-5.20 [facility] Comment on above: Order Comment: Speci men Type: BLOOD SPECIMENOrdering Facility: [facility] Address: [address] [place] [address] Performed By: #### 5 7021-8 ####[facility] CECILIAWNCLIA [id number] [place] [address] [place] WBC (Bld) [#/Vol] 4.96 10*3/uL Normal 3.70-11.00 [facility] Comment on above: Order Comment: Speci men Type: BLOOD SPECIMENOrdering Facility: [facility] Address: [address] [place] [address] Performed By: #### 5 7021-8 ####[facility] [id number] [place] [address] [place] CNPNon 07-26-2024 CNPN Normal [facility] CNPNon 07-23-2024 CNPN Normal [facility] CBC W Auto Differential pane l (Bld)on 07-22-2024 Basophils (Bld) [#/Vol] 0.05 10*3/uL [facility] Basophils/100 WBC (Bld) 1.0 % [facility] Differential cell count method Nom (Bld) Auto [facility] Eosinophils (Bld) [#/Vol] 0.16 10*3/uL [facility] Eosinophils/100 WBC (Bld) 3.1 % [facility] Erythrocyte distribution width (RBC) [Ratio] 19.6 % High 11.5 - 15.0 % [facility] Hematocrit (Bld) [Volume fraction] 28.6 % Low 36.0 - 46.0 % [facility] Hemoglobin (Bld) [Mass/Vol] 9.2 g/dL Low 11.5 - 15.5 g/dL [facility] Immature granulocytes (Bld) [#/Vol] [facility] Immature granulocytes/100 WBC (Bld) 0.4 % [facility] Interpretation and review of laboratory results Abnormal [facility] Lymphocytes (Bld) [#/Vol] 0.94 10*3/uL Low [facility] Lymphocytes/100 WBC (Bld) 18.3 % [facility] MCH (RBC) [Entitic mass] 26.1 pg 26.0 - 34.0 pg [facility] MCHC (RBC) [Mass/Vol] 32.2 g/dL 30.5 - 36.0 g/dL [facility] MCV (RBC) [Entitic vol] 81.0 fL 80.0 - 100.0 fL [facility] Monocytes (Bld) [#/Vol] 0.19 10*3/uL [facility] Monocytes/100 WBC (Bld) 3.7 % [facility] Neutrophils (Bld) [#/Vol] 3.77 10*3/uL [facility] Neutrophils/100 WBC (Bld) 73.5 % [facility] Nucleated RBC (Bld) [#/Vol] [facility] Nucleated RBC/100 WBC (Bld) [Ratio] 0.0 % /100 WBC [facility] Platelet mean volume (Bld) [Entitic vol] 9.4 fL 9.0 - 12.7 fL [facility] Platelets (Bld) [#/Vol] 558 10*3/uL High [facility] RBC (Bld) [#/Vol] 3.53 10*6/uL Low 3.90 - 5.2 0 m/uL [facility] WBC (Bld) [#/Vol] 5.13 10*3/uL [facility] Basophils (Bld) [#/Vol] 0.05 10*3/uL Normal <0.11 [facility] Comment on above: Order Comment: Speci men Type: BLOOD SPECIMENOrdering Facility: [facility] Address: [address] [place] [address] Performed By: #### 5 7021-8 ####[facility] [id number] [place] [address] [place] Basophils/100 WBC (Bld) 1.0 % Normal [facility] Comment on above: Order Comment: Speci men Type: BLOOD SPECIMENOrdering Facility: [facility] Address: [address] [place] [address] Performed By: #### 5 7021-8 ####[facility] [id number] [place] [address] [place] Differential cell count method Nom (Bld) Auto Normal [facility] Comment on above: Order Comment: Speci men Type: BLOOD SPECIMENOrdering Facility: [facility] Address: [address] [place] [address] Performed By: #### 5 7021-8 ####[facility] [id number] [place] [address] [place] Eosinophils (Bld) [#/Vol] 0.16 10*3/uL Normal <0.46 [facility] Comment on above: Order Comment: Speci men Type: BLOOD SPECIMENOrdering Facility: [facility] Address: [address] [place] [address] Performed By: #### 5 7021-8 ####[facility] DEVYNWIESHALIA [id number] [place] [address] [place] Eosinophils/100 WBC (Bld) 3.1 % Normal [facility] Comment on above: Order Comment: Speci men Type: BLOOD SPECIMENOrdering Facility: [facility] Address: [address] [place] [address] Performed By: #### 5 7021-8 ####[facility] HOSPITALIESHALIA [id number] [place] [address] [place] Erythrocyte distribution width (RBC) [Ratio] 19.6 % High 11.5-15.0 [facility] Comment on above: Order Comment: Speci men Type: BLOOD SPECIMENOrdering Facility: [facility] Address: [address] [place] [address] Performed By: #### 5 7021-8 ####[facility] COMMUN[facility] HOSPITALNCA [id number] [place] [address] [place] Hematocrit (Bld) [Volume fraction] 28.6 % Low 36.0-46.0 [facility] Comment on above: Order Comment: Speci men Type: BLOOD SPECIMENOrdering Facility: [facility] Address: [address] [place] [address] Performed By: #### 5 7021-8 ####[facility] HOSPITALNCLIA [id number] [place] [address] [place] Hemoglobin (Bld) [Mass/Vol] 9.2 g/dL Low 11.5-15.5 [facility] Comment on above: Order Comment: Speci men Type: BLOOD SPECIMENOrdering Facility: [facility] Address: [address] [place] [address] Performed By: #### 5 7021-8 ####[facility] HOSPITALNCLIA [id number] [place] [address] [place] Immature granulocytes (Bld) [#/Vol] 10*3/uL Normal <0.10 [facility] Comment on above: Order Comment: Speci men Type: BLOOD SPECIMENOrdering Facility: [facility] Address: [address] [place] [address] Performed By: #### 5 7021-8 ####[facility] CENTERWIESHALIA [id number] [place] [address] [place] Immature granulocytes/100 WBC (Bld) 0.4 % Normal [facility] Comment on above: Order Comment: Speci men Type: BLOOD SPECIMENOrdering Facility: [facility] Address: [address] [place] [address] Performed By: #### 5 7021-8 ####[facility] INSTITUTEA [id number] [place] [address] [place] Lymphocytes (Bld) [#/Vol] 0.94 10*3/uL Low 1.00-4.00 [facility] Comment on above: Order Comment: Speci men Type: BLOOD SPECIMENOrdering Facility: [facility] Address: [address] [place] [address] Performed By: #### 5 7021-8 ####[facility] HOSPITALLIA [id number] [place] [address] [place] Lymphocytes/100 WBC (Bld) 18.3 % Normal [facility] Comment on above: Order Comment: Speci men Type: BLOOD SPECIMENOrdering Facility: [facility] Address: [address] [place] [address] Performed By: #### 5 7021-8 ####[facility] HOSPITALLIA [id number] [place] [address] [place] MCH (RBC) [Entitic mass] 26.1 pg Normal 26.0-34.0 [facility] Comment on above: Order Comment: Speci men Type: BLOOD SPECIMENOrdering Facility: [facility] Address: [address] [place] [address] Performed By: #### 5 7021-8 ####[facility] HOSPITALNCASH[facility] [id number] [place] [address] [place] MCHC (RBC) [Mass/Vol] 32.2 g/dL Normal 30.5-36.0 [facility] Comment on above: Order Comment: Speci men Type: BLOOD SPECIMENOrdering Facility: [facility] Address: [address] [place] [address] Performed By: #### 5 7021-8 ####[facility] [id number] [place] [address] [place] MCV (RBC) [Entitic vol] 81.0 fL Normal 80.0-100.0 [facility] Comment on above: Order Comment: Speci men Type: BLOOD SPECIMENOrdering Facility: [facility] Address: [address] [place] [address] Performed By: #### 5 7021-8 ####[facility] HOSPITALNCASHLEY [facility] [id number] [place] [address] [place] Monocytes (Bld) [#/Vol] 0.19 10*3/uL Normal <0.87 [facility] Comment on above: Order Comment: Speci men Type: BLOOD SPECIMENOrdering Facility: [facility] Address: [address] [place], [place] [address] Performed By: #### 5 7021-8 ####[facility] [id number] [place] [address] [place] Monocytes/100 WBC (Bld) 3.7 % Normal [facility] Comment on above: Order Comment: Speci men Type: BLOOD SPECIMENOrdering Facility: [facility] Address: [address] [place] [address] Performed By: #### 5 7021-8 ####[facility] MILLTOWNCLIA [id number] [place] [address] [place] Neutrophils (Bld) [#/Vol] 3.77 10*3/uL Normal 1.45-7.50 [facility] Comment on above: Order Comment: Speci men Type: BLOOD SPECIMENOrdering Facility: [facility] Address: [address] [place] [address] Performed By: #### 5 7021-8 ####[facility] MILLWNCLIA [id number] [place] [address] [place] Neutrophils/100 WBC (Bld) 73.5 % Normal [facility] Comment on above: Order Comment: Speci men Type: BLOOD SPECIMENOrdering Facility: [facility] Address: [address] [place] [address] Performed By: #### 5 7021-8 ####[facility] CENTERWNCLIA [id number] [place] [address] [place] Nucleated RBC (Bld) [#/Vol] 10*3/uL Normal <0.01 [facility] Comment on above: Order Comment: Speci men Type: BLOOD SPECIMENOrdering Facility: [facility] Address: [address] [place] [address] Performed By: #### 5 7021-8 ####[facility] MILLTOWNCLIA [id number] [place] [address] [place] Nucleated RBC/100 WBC (Bld) [Ratio] 0.0 /100 WBC Normal [facility] Comment on above: Order Comment: Speci men Type: BLOOD SPECIMENOrdering Facility: [facility] Address: [address] [place] [address] Performed By: #### 5 7021-8 ####[facility] MILLWNCLIA [id number] [place] [address] [place] Platelet mean volume (Bld) [Entitic vol] 9.4 fL Normal 9.0-12.7 [facility] Comment on above: Order Comment: Speci men Type: BLOOD SPECIMENOrdering Facility: [facility] Address: [address] [place] [address] Performed By: #### 5 7021-8 ####[facility] HOSPITALLIA [id number] [place] [address] [place] Platelets (Bld) [#/Vol] 558 10*3/uL High 150-400 [facility] Comment on above: Order Comment: Speci men Type: BLOOD SPECIMENOrdering Facility: [facility] Address: [address] [place] [address] Performed By: #### 5 7021-8 ####[facility] COMM[facility] HOSPITALNCLIA [id number] [place] [address] [place] RBC (Bld) [#/Vol] 3.53 10*6/uL Low 3.90-5.20 [facility] Comment on above: Order Comment: Speci men Type: BLOOD SPECIMENOrdering Facility: [facility] Address: [address] [place] [address] Performed By: #### 5 7021-8 ####[facility] HOSPITALLIA [id number] [place] [address] [place] WBC (Bld) [#/Vol] 5.13 10*3/uL Normal 3.70-11.00 [facility] Comment on above: Order Comment: Speci men Type: BLOOD SPECIMENOrdering Facility: [facility] Address: [address] [place] [address] Performed By: #### 5 7021-8 ####[facility] HOSPITALNCLIA [id number] [place] [address] [place] CNPNon 10-03-2024 CNPN Normal [facility] CNPTOUTREACHon 07-17-2024 CNPTOUTREACH Normal [facility] CBC W Auto Differential pane l (Bld)on 07-15-2024 Basophils (Bld) [#/Vol] [facility] Basophils/100 WBC (Bld) 0.5 % [facility] Differential cell count method Nom (Bld) Auto [facility] Eosinophils (Bld) [#/Vol] 0.08 10*3/uL [facility] Eosinophils/100 WBC (Bld) 2.0 % [facility] Erythrocyte distribution width (RBC) [Ratio] 18.7 % High 11.5 - 15.0 % [facility] Hematocrit (Bld) [Volume fraction] 29.5 % Low 36.0 - 46.0 % [facility] Hemoglobin (Bld) [Mass/Vol] 9.6 g/dL Low 11.5 - 15.5 g/dL [facility] Immature granulocytes (Bld) [#/Vol] [facility] Immature granulocytes/100 WBC (Bld) 0.3 % [facility] Interpretation and review of laboratory results Abnormal [facility] Lymphocytes (Bld) [#/Vol] 1.17 10*3/uL [facility] Lymphocytes/100 WBC (Bld) 29.6 % [facility] MCH (RBC) [Entitic mass] 26.1 pg 26.0 - 34.0 pg [facility] MCHC (RBC) [Mass/Vol] 32.5 g/dL 30.5 - 36.0 g/dL [facility] MCV (RBC) [Entitic vol] 80.2 fL 80.0 - 100.0 fL [facility] Monocytes (Bld) [#/Vol] 0.34 10*3/uL [facility] Monocytes/100 WBC (Bld) 8.6 % [facility] Neutrophils (Bld) [#/Vol] 2.33 10*3/uL [facility] Neutrophils/100 WBC (Bld) 59.0 % [facility] Nucleated RBC (Bld) [#/Vol] [facility] Nucleated RBC/100 WBC (Bld) [Ratio] 0.0 % /100 WBC [facility] Platelet mean volume (Bld) [Entitic vol] 9.6 fL 9.0 - 12.7 fL [facility] Platelets (Bld) [#/Vol] 262 10*3/uL [facility] RBC (Bld) [#/Vol] 3.68 10*6/uL Low 3.90 - 5.2 0 m/uL [facility] WBC (Bld) [#/Vol] 3.95 10*3/uL [facility] Basophils (Bld) [#/Vol] 10*3/uL Normal <0.11 [facility] Comment on above: Order Comment: Speci men Type: BLOOD SPECIMENOrdering Facility: [facility] Address: [address] [place] [address] Performed By: #### 5 7021-8 ####[facility]STITUTEA [id number] [place] [address] [place] Basophils/100 WBC (Bld) 0.5 % Normal [facility] Comment on above: Order Comment: Speci men Type: BLOOD SPECIMENOrdering Facility: [facility] Address: [address] [place] [address] Performed By: #### 5 7021-8 ####[facility] [id number] [place] [address] [place] Differential cell count method Nom (Bld) Auto Normal [facility] Comment on above: Order Comment: Speci men Type: BLOOD SPECIMENOrdering Facility: [facility] Address: [address] [place] [address] Performed By: #### 5 7021-8 ####[facility] HOSPITALLIA [id number] [place] [address] [place] Eosinophils (Bld) [#/Vol] 0.08 10*3/uL Normal <0.46 [facility] Comment on above: Order Comment: Speci men Type: BLOOD SPECIMENOrdering Facility: [facility] Address: [address] [place] [address] Performed By: #### 5 7021-8 ####[facility] DEVYNBEARDENIESHALIA [id number] [place] [address] [place] Eosinophils/100 WBC (Bld) 2.0 % Normal [facility] Comment on above: Order Comment: Speci men Type: BLOOD SPECIMENOrdering Facility: [facility] Address: [address] [place] [address] Performed By: #### 5 7021-8 ####[facility] HOSPITALTERESAA [id number] [place] [address] [place] Erythrocyte distribution width (RBC) [Ratio] 18.7 % High 11.5-15.0 [facility] Comment on above: Order Comment: Speci men Type: BLOOD SPECIMENOrdering Facility: [facility] Address: [address] [place] [address] Performed By: #### 5 7021-8 ####[facility] [id number] [place] [address] [place] Hematocrit (Bld) [Volume fraction] 29.5 % Low 36.0-46.0 [facility] Comment on above: Order Comment: Speci men Type: BLOOD SPECIMENOrdering Facility: [facility] Address: [address] [place] [address] Performed By: #### 5 7021-8 ####[facility] HOSPITALLIA [id number] [place] [address] [place] Hemoglobin (Bld) [Mass/Vol] 9.6 g/dL Low 11.5-15.5 [facility] Comment on above: Order Comment: Speci men Type: BLOOD SPECIMENOrdering Facility: [facility] Address: [address] [place] [address] Performed By: #### 5 7021-8 ####[facility] HOSPITALNCLIA [id number] [place] [address] [place] Immature granulocytes (Bld) [#/Vol] 10*3/uL Normal <0.10 [facility] Comment on above: Order Comment: Speci men Type: BLOOD SPECIMENOrdering Facility: [facility] Address: [address] [place] [address] Performed By: #### 5 7021-8 ####[facility] [id number] [place] [address] [place] Immature granulocytes/100 WBC (Bld) 0.3 % Normal [facility] Comment on above: Order Comment: Speci men Type: BLOOD SPECIMENOrdering Facility: [facility] Address: [address] [place] [address] Performed By: #### 5 7021-8 ####[facility] [id number] [place] [address] [place] Lymphocytes (Bld) [#/Vol] 1.17 10*3/uL Normal 1.00-4.00 [facility] Comment on above: Order Comment: Speci men Type: BLOOD SPECIMENOrdering Facility: [facility] Address: [address] [place] [address] Performed By: #### 5 7021-8 ####[facility] [id number] [place] [address] [place] Lymphocytes/100 WBC (Bld) 29.6 % Normal [facility] Comment on above: Order Comment: Speci men Type: BLOOD SPECIMENOrdering Facility: [facility] Address: [address] [place] [address] Performed By: #### 5 7021-8 ####[facility] [id number] [place] [address] [place] MCH (RBC) [Entitic mass] 26.1 pg Normal 26.0-34.0 [facility] Comment on above: Order Comment: Speci men Type: BLOOD SPECIMENOrdering Facility: [facility] Address: [address] [place] [address] Performed By: #### 5 7021-8 ####[facility] DEVYNWNCLIA [id number] [place] [address] [place] MCHC (RBC) [Mass/Vol] 32.5 g/dL Normal 30.5-36.0 [facility] Comment on above: Order Comment: Speci men Type: BLOOD SPECIMENOrdering Facility: [facility] Address: [address] [place] [address] Performed By: #### 5 7021-8 ####[facility] HOSPITALNCTERESAA [id number] [place] [address] [place] MCV (RBC) [Entitic vol] 80.2 fL Normal 80.0-100.0 [facility] Comment on above: Order Comment: Speci men Type: BLOOD SPECIMENOrdering Facility: [facility] Address: [address] [place] [address] Performed By: #### 5 7021-8 ####[facility] HOSPITALLIA [id number] [place] [address] [place] Monocytes (Bld) [#/Vol] 0.34 10*3/uL Normal <0.87 [facility] Comment on above: Order Comment: Speci men Type: BLOOD SPECIMENOrdering Facility: [facility] Address: [address] [place] [address] Performed By: #### 5 7021-8 ####[facility] HOSPITALNCLIA [id number] [place] [address] [place] Monocytes/100 WBC (Bld) 8.6 % Normal [facility] Comment on above: Order Comment: Speci men Type: BLOOD SPECIMENOrdering Facility: [facility] Address: [address] [place] [address] Performed By: #### 5 7021-8 ####[facility] HOSPITALLIA [id number] [place] [address] [place] Neutrophils (Bld) [#/Vol] 2.33 10*3/uL Normal 1.45-7.50 [facility] Comment on above: Order Comment: Speci men Type: BLOOD SPECIMENOrdering Facility: [facility] Address: [address] [place] [address] Performed By: #### 5 7021-8 ####[facility] [id number] [place] [address] [place] Neutrophils/100 WBC (Bld) 59.0 % Normal [facility] Comment on above: Order Comment: Speci men Type: BLOOD SPECIMENOrdering Facility: [facility] Address: [address] [place] [address] Performed By: #### 5 7021-8 ####[facility] [id number] [place] [address] [place] Nucleated RBC (Bld) [#/Vol] 10*3/uL Normal <0.01 [facility] Comment on above: Order Comment: Speci men Type: BLOOD SPECIMENOrdering Facility: [facility] Address: [address] [place] [address] Performed By: #### 5 7021-8 ####[facility] [id number] [place] [address] [place] Nucleated RBC/100 WBC (Bld) [Ratio] 0.0 /100 WBC Normal [facility] Comment on above: Order Comment: Speci men Type: BLOOD SPECIMENOrdering Facility: [facility] Address: [address] [place] [address] Performed By: #### 5 7021-8 ####[facility] [id number] [place] [address] [place] Platelet mean volume (Bld) [Entitic vol] 9.6 fL Normal 9.0-12.7 [facility] Comment on above: Order Comment: Speci men Type: BLOOD SPECIMENOrdering Facility: [facility] Address: [address] [place] [address] Performed By: #### 5 7021-8 ####[facility] [facility] [id number] [place] [address] [place] Platelets (Bld) [#/Vol] 262 10*3/uL Normal 150-400 [facility] Comment on above: Order Comment: Speci men Type: BLOOD SPECIMENOrdering Facility: [facility] Address: [address] [place] [address] Performed By: #### 5 7021-8 ####[facility] [id number] [place] [address] [place] RBC (Bld) [#/Vol] 3.68 10*6/uL Low 3.90-5.20 [facility] Comment on above: Order Comment: Speci men Type: BLOOD SPECIMENOrdering Facility: [facility] Address: [address] [place] [address] Performed By: #### 5 7021-8 ####[facility] [id number] [place] [address] [place] WBC (Bld) [#/Vol] 3.95 10*3/uL Normal 3.70-11.00 [facility] Comment on above: Order Comment: Speci men Type: BLOOD SPECIMENOrdering Facility: [facility] Address: [address] [place] [address] Performed By: #### 5 7021-8 ####[facility]ITALNCLIA [id number] [place] [address] [place] Cancer Ag125 SerPl-aCncon Cancer Ag 125 Qn 79 [arb'U]/mL High <39 [facility] Comment on above: Order Comment: Speci men Type: BLOOD SPECIMENOrdering Facility: [facility] Address: [address] [place] [address] Result Comment: CA 1 25 test methodology used is the Electrochemiluminescence Immunoassay by [employer]. Results obtained with different methods or kits cannot be used interchangeably.The reference interval is based on the 95th percentile of 240 apparently healthy premenopausal and postmenopausal women. At a cutoff value of 65 U/mL, the test sensitivity to distinguish ovarian carcinoma (FIGO stage I to IV) versus benign gynecological disease is 79%, with a specificity of 82%.Reference: Cancer Antigen 125 (CA 125 II) [package insert V 1.0 Citizen [place]]. [employer], [place], [place] (July 2015) Performed By: #### 1 0334-1 ####[facility] LABCLIA [id number] [place] [address] [place] [facility] Comprehensive metabolic 2000 panelOrdered By: Mercedes Mckeon on 07-15-2024 Albumin [Mass/Vol] 3.6 g/dL Low 3.9 - 4.9 g/dL [facility] ALP [Catalytic activity/Vol] 78 U/L 34 - 123 U/L [facility] ALT [Catalytic activity/Vol] 10 U/L 7 - 38 U/L [facility] Anion gap [Moles/Vol] 11 mmol/L 8 - 15 mmol/L [facility] AST [Catalytic activity/Vol] 14 U/L 13 - 35 U/L [facility] Bilirubin [Mass/Vol] 0.2 mg/dL 0.2 - 1 .3 mg/dL [facility] Calcium [Mass/Vol] 9.0 mg/dL 8.5 - 10. 2 mg/dL [facility] Chloride [Moles/Vol] 106 mmol/L 98 - 10 7 mmol/L [facility] CO2 [Moles/Vol] 23 mmol/L 22 - 30 mmol/L [facility] Creatinine [Mass/Vol] 0.90 mg/dL 0.58 - 0.96 mg/dL [facility] GFR/1.73 sq M.predicted among non-blacks MDRD (S/P/Bld) [Vol rate/Area] 74 mL/min/{1.73_m2} - PINF [facility] Comment on above: Estimated Glomerular Filtration Rate (eGFR) is calculated using the 2020 CKD-EPI creatinine equation. This equation utilizes serum creatinine, sex, and age as parameters. The creatinine assay has traceable calibration to isotope dilution-mass spectrometry. Refer to KDIGO guidelines for clinical interpretation. In patients with unstable renal function, e.g. those with acute kidney injury, the eGFR may not accurately reflect actual GFR. Glucose [Mass/Vol] 106 mg/dL High 74 - 99 mg/dL [facility] Comment on above: The [place] Diabete s Association (ADA) provides guidance for cutoff values for fasting glucose and random glucose. The ADA defines fasting as no caloric intake for at least 8 hours. Fasting plasma glucose results between 100 to 125 mg/dL indicate increased risk for diabetes (prediabetes). Fasting plasma glucose results greater than or equal to 126 mg/dL meet the criteria for diagnosis of diabetes. In the absence of unequivocal hyperglycemia, results should be confirmed by repeat testing. In a patient with classic symptoms of hyperglycemia or hyperglycemic crisis, random plasma glucose results greater than or equal to 200 mg/dL meet the criteria for diagnosis of diabetes. Reference: Standards of Medical Care in Diabetes 2016, [place] Diabetes Association. Diabetes Care. 2016.39(Suppl 1). Interpretation and review of laboratory results Abnormal [facility] Potassium [Moles/Vol] 4.0 mmol/L 3.7 - 5.1 mmol/L [facility] Protein [Mass/Vol] 6.4 g/dL 6.3 - 8.0 g/dL [facility] Sodium [Moles/Vol] 140 mmol/L 136 - 144 mmol/L [facility] Urea nitrogen [Mass/Vol] 10 mg/dL 7 - 21 mg/dL [facility] Comprehensive metabolic 2000 panelon 07-15-2024 Albumin [Mass/Vol] 3.6 g/dL Low 3.9-4.9 [facility] Comment on above: Order Comment: Speci men Type: BLOOD SPECIMENOrdering Facility: [facility] Address: [facility] [place] [id number] Performed By: #### 1 9123-9, 14858-5 ####[facility] TIMO [facility]ICNely [id number] [place] [address] [place] ALP [Catalytic activity/Vol] 78 U/L Normal 34-123 [facility] Comment on above: Order Comment: Speci men Type: BLOOD SPECIMENOrdering Facility: [facility] Address: [address] [place] [address] Performed By: #### 1 9123-9, ####[facility] H[facility]ITALNCLIA [id number] [place] [address] [place] ALT [Catalytic activity/Vol] 10 U/L Normal 7-38 [facility] Comment on above: Order Comment: Speci men Type: BLOOD SPECIMENOrdering Facility: [facility] Address: [address] [place] [address] Performed By: #### 1 9123-9, ####[facility] [id number] [place] [address] [place] Anion gap [Moles/Vol] 11 mmol/L Normal 8-15 [facility] Comment on above: Order Comment: Speci men Type: BLOOD SPECIMENOrdering Facility: [facility] Address: [address] [place] [address] Performed By: #### 1 9123-9, ####[facility] [id number] [place] [address] [place] AST [Catalytic activity/Vol] 14 U/L Normal 13-35 [facility] Comment on above: Order Comment: Speci men Type: BLOOD SPECIMENOrdering Facility: [facility] Address: [address] [place] [address] Performed By: #### 1 9123-9, ####[facility] [id number] [place] [address] [place] Bilirubin [Mass/Vol] 0.2 mg/dL Normal 0.2-1.3 [facility] Comment on above: Order Comment: Speci men Type: BLOOD SPECIMENOrdering Facility: [facility] Address: [address] [place], [place] [address] Performed By: #### 1 9123-9, 26317-1 ####[facility] TIMO JOSEPHINELIA [id number] [place] [address] [place] Calcium [Mass/Vol] 9.0 mg/dL Normal 8.5-10.2 [facility] Comment on above: Order Comment: Speci men Type: BLOOD SPECIMENOrdering Facility: [facility] Address: [address] [place], [place] [address] Performed By: #### 1 9123-9, 81656-2 ####[facility] DEVYNMADDIEWIESHALIA [id number] [place] [address] [place] Chloride [Moles/Vol] 106 mmol/L Normal 98-107 [facility] Comment on above: Order Comment: Speci men Type: BLOOD SPECIMENOrdering Facility: [facility] Address: [address] [place], [place] [address] Performed By: #### 1 9123-9, 12988-4 ####[facility] DEVYNBEARDENKIANA [id number] [place] [address] [place] CO2 [Moles/Vol] 23 mmol/L Normal 22-30 [facility] Comment on above: Order Comment: Speci men Type: BLOOD SPECIMENOrdering Facility: [facility] Address: [address] [place] [address] Performed By: #### 1 9123-9, 17477-5 ####[facility] MILLWNCLIA [id number] [place] [address] [place] Creatinine [Mass/Vol] 0.90 mg/dL Normal 0.58-0.96 [facility] Comment on above: Order Comment: Speci men Type: BLOOD SPECIMENOrdering Facility: [facility] Address: [address] [place] [address] Performed By: #### 1 9123-9, 55354-7 ####[facility] CENTERWNCLIA [id number] [place] [address] [place] Creatinine and Glomerular filtration rate.predicted panel (S/P/Bld) 74 mL/min/1.73m??? Normal >=60 [facility] Comment on above: Order Comment: Tessie cox Type: BLOOD SPECIMENOrdering Facility: [facility] Address: [address] [place] [address] Result Comment: Mariana mated Glomerular Filtration Rate (eGFR) is calculated using the 2020 CKD-EPI creatinine equation. This equation utilizes serum creatinine, sex, and age as parameters. The creatinine assay has traceable calibration to isotope dilution-mass spectrometry. Refer to KDIGO guidelines for clinical interpretation. In patients with unstable renal function, e.g. those with acute kidney injury, the eGFR may not accurately reflect actual GFR. Performed By: #### 1 9123-9, 95815-6 ####[facility] [id number] [place] [address] [place] Glucose [Mass/Vol] 106 mg/dL High 74-99 [facility] Comment on above: Order Comment: Tessie cox Type: BLOOD SPECIMENOrdering Facility: [facility] Address: [address] [place] [address] Result Comment: The [place] Diabetes Association (ADA) provides guidance for cutoff values for fasting glucose and random glucose. The ADA defines fasting as no caloric intake for at least 8 hours. Fasting plasma glucose results between 100 to 125 mg/dL indicate increased risk for diabetes (prediabetes).Fasting plasma glucose results greater than or equal to 126 mg/dL meet the criteria for diagnosis of diabetes. In the absence of unequivocal hyperglycemia, results should be confirmed by repeat testing. In a patient with classic symptoms of hyperglycemia or hyperglycemic crisis, random plasma glucose results greater than or equal to 200 mg/dL meet the criteria for diagnosis of diabetes.Reference: Standards of Medical Care in Diabetes 2016, [place] Diabetes Association. Diabetes Care. 2016.39(Suppl 1). Performed By: #### 1 9123-9, 37683-8 ####[facility] MILLTOWNCLIA [id number] [place] [address] [place] Potassium [Moles/Vol] 4.0 mmol/L Normal 3.7-5.1 [facility] Comment on above: Order Comment: Speci men Type: BLOOD SPECIMENOrdering Facility: [facility] Address: [address] [place] [address] Performed By: #### 1 9123-9, 41584-4 ####[facility] MILLTOWNCLIA [id number] [place] [address] [place] Protein [Mass/Vol] 6.4 g/dL Normal 6.3-8.0 [facility] Comment on above: Order Comment: Speci men Type: BLOOD SPECIMENOrdering Facility: [facility] Address: [address] [place] [address] Performed By: #### 1 9123-9, 31260-8 ####[facility] MILLTOWNCLIA [id number] [place] [address] [place] Sodium [Moles/Vol] 140 mmol/L Normal 136-144 [facility] Comment on above: Order Comment: Speci men Type: BLOOD SPECIMENOrdering Facility: [facility] Address: [address] [place] [address] Performed By: #### 1 9123-9, 40517-3 ####[facility] MILLTOWNCLIA [id number] [place] [address] [place] Urea nitrogen [Mass/Vol] 10 mg/dL Normal 7-21 [facility] Comment on above: Order Comment: Speci men Type: BLOOD SPECIMENOrdering Facility: [facility] Address: [address] [place] [address] Performed By: #### 1 9123-9, 30927-1 ####[facility] MILLTOWNCLIA [id number] [place] [address] [place] HBV core Ab Ser Qlon 024 HBV core Ab Ql (S) Negative Normal Negative [facility] Comment on above: Order Comment: Speci men Type: BLOOD SPECIMENOrdering Facility: [facility] Address: [address] [place] [address] Result Comment: No e vidence of current or past infection with Hepatitis B virus. Should recent infection be suspected, repeat testing may be considered 3-4 weeks after this draw. Performed By: #### 2 2322-2, 20548-1, 5194-3 ####[facility] LABCLIA [id number] [address] [place] HBV surface Ab Ql (S)on 06-18 HBV surface Ab Qn (S) <8.00 Normal [facility] Comment on above: Order Comment: Speci men Type: BLOOD SPECIMENOrdering Facility: [facility] Address: [address] [place] [address] Result Comment: <8 m IU/mL: No serological evidence of immunity to Hepatitis B Virus.>/= 8 to <12 mIU/mL: No serological evidence of immunity to Hepatitis B Virus.>/= 12 mIU/mL: Consistent with serological evidence of immunity to Hepatitis B Virus. Performed By: #### 2 2322-2, 92714-7, 5194-3 ####[facility] LABCLIA [id number] [address] [place] HBV surface Ab Ser Qlon 06-18 HBV surface Ab Ql (S) Negative Normal [facility] Comment on above: Order Comment: Speci men Type: BLOOD SPECIMENOrdering Facility: [facility] Address: [address] [place] [address] Result Comment: No s erological evidence of immunity to Hepatitis B Virus. Performed By: #### 2 2322-2, 46581-7, 5194-3 ####[facility] LABCLIA [id number] [place] [address] [place] HBV surface Ag Ser Qlon 06-18 HBV surface Ag Ql (S) Negative Normal Negative [facility] Comment on above: Order Comment: Speci men Type: BLOOD SPECIMENOrdering Facility: [facility] Address: [address] [place] [address] Performed By: #### 2 2322-2, 51094-8, 5195-3 ####[facility] LABIA [id number] [place] [address] [place] HCV Ab Ser Qlon 07-15-2024 HCV Ab Ql (S) Negative Normal Negative [facility] Comment on above: Order Comment: Tessie cox Type: BLOOD SPECIMENOrdering Facility: [facility] Address: [address] [place] [address] Result Comment: The result suggests no evidence of active infection with Hepatitis C virus. Should recent infection be suspected, repeat testing may be considered 4-6 weeks after this draw. Performed By: #### 1 6128-1 ####[facility] LABCLIA [id number] [place] [address] [place] MAGNESIUMon 07-15-2024 Magnesium [Mass/Vol] 1.9 mg/dL 1.7 - 2 .3 mg/dL [facility] Magnesium SerPl-mCncon 07-15 Magnesium [Mass/Vol] 1.9 mg/dL Normal 1.7-2.3 [facility] Comment on above: Order Comment: Speci men Type: BLOOD SPECIMENOrdering Facility: [facility] Address: [address] [place] [address] Performed By: #### 1 9123-9, 27192-1 ####[facility] TIMO SHEPARDBLOOMINGTON MEADOWS HOSPITALURI [id number] [place] [address] [place] Magnesium [Mass/Vol]on 07-15 Interpretation and review of laboratory results Normal [facility] No Panel InformationOrdered By: Mercedes Mckeon on 07-15-2024 [facility] CNPNon 07-10-2024 CNPN Normal [facility] CNPNon 07-08-2024 CNPN Normal [facility] CBC W Auto Differential pane l (Bld)on 07-04-2024 Basophils (Bld) [#/Vol] 0.05 10*3/uL [facility] Basophils/100 WBC (Bld) 1.0 % [facility] Differential cell count method Nom (Bld) Auto [facility] Eosinophils (Bld) [#/Vol] 0.12 10*3/uL [facility] Eosinophils/100 WBC (Bld) 2.4 % [facility] Erythrocyte distribution width (RBC) [Ratio] 17.3 % High 11.5 - 15.0 % [facility] Hematocrit (Bld) [Volume fraction] 31.1 % Low 36.0 - 46.0 % [facility] Hemoglobin (Bld) [Mass/Vol] 10.1 g/dL Low 11.5 - 15.5 g/dL [facility] Immature granulocytes (Bld) [#/Vol] [facility] Immature granulocytes/100 WBC (Bld) 0.2 % [facility] Interpretation and review of laboratory results Abnormal [facility] Lymphocytes (Bld) [#/Vol] 1.47 10*3/uL [facility] Lymphocytes/100 WBC (Bld) 30.0 % [facility] MCH (RBC) [Entitic mass] 26.2 pg 26.0 - 34.0 pg [facility] MCHC (RBC) [Mass/Vol] 32.5 g/dL 30.5 - 36.0 g/dL [facility] MCV (RBC) [Entitic vol] 80.6 fL 80.0 - 100.0 fL [facility] Monocytes (Bld) [#/Vol] 0.28 10*3/uL [facility] Monocytes/100 WBC (Bld) 5.7 % [facility] Neutrophils (Bld) [#/Vol] 2.97 10*3/uL [facility] Neutrophils/100 WBC (Bld) 60.7 % [facility] Nucleated RBC (Bld) [#/Vol] [facility] Nucleated RBC/100 WBC (Bld) [Ratio] 0.0 % /100 WBC [facility] Platelet mean volume (Bld) [Entitic vol] 9.1 fL 9.0 - 12.7 fL [facility] Platelets (Bld) [#/Vol] 436 10*3/uL High [facility] RBC (Bld) [#/Vol] 3.86 10*6/uL Low 3.90 - 5.2 0 m/uL [facility] WBC (Bld) [#/Vol] 4.90 10*3/uL [facility] Basophils (Bld) [#/Vol] 0.05 10*3/uL Normal <0.11 [facility] Comment on above: Order Comment: Speci men Type: BLOOD SPECIMENOrdering Facility: [facility] Address: [address] [place] [address] Performed By: #### 5 7021-8 ####[facility] MILLTOWNCLIA [id number] [place] [address] [place] Basophils/100 WBC (Bld) 1.0 % Normal [facility] Comment on above: Order Comment: Speci men Type: BLOOD SPECIMENOrdering Facility: [facility] Address: [address] [place] [address] Performed By: #### 5 7021-8 ####[facility] HOSPITALNCLIA [id number] [place] [address] [place] Differential cell count method Nom (Bld) Auto Normal [facility] Comment on above: Order Comment: Speci men Type: BLOOD SPECIMENOrdering Facility: [facility] Address: [address] [place] [address] Performed By: #### 5 7021-8 ####[facility] MILLTOWNCLIA [id number] [place] [address] [place] Eosinophils (Bld) [#/Vol] 0.12 10*3/uL Normal <0.46 [facility] Comment on above: Order Comment: Speci men Type: BLOOD SPECIMENOrdering Facility: [facility] Address: [address] [place] [address] Performed By: #### 5 7021-8 ####[facility] [id number] [place] [address] [place] Eosinophils/100 WBC (Bld) 2.4 % Normal [facility] Comment on above: Order Comment: Speci men Type: BLOOD SPECIMENOrdering Facility: [facility] Address: [address] [place] [address] Performed By: #### 5 7021-8 ####[facility] [id number] [place] [address] [place] Erythrocyte distribution width (RBC) [Ratio] 17.3 % High 11.5-15.0 [facility] Comment on above: Order Comment: Speci men Type: BLOOD SPECIMENOrdering Facility: [facility] Address: [address] [place] [address] Performed By: #### 5 7021-8 ####[facility] [id number] [place] [address] [place] Hematocrit (Bld) [Volume fraction] 31.1 % Low 36.0-46.0 [facility] Comment on above: Order Comment: Speci men Type: BLOOD SPECIMENOrdering Facility: [facility] Address: [address] [place] [address] Performed By: #### 5 7021-8 ####[facility] [id number] [place] [address] [place] Hemoglobin (Bld) [Mass/Vol] 10.1 g/dL Low 11.5-15.5 [facility] Comment on above: Order Comment: Speci men Type: BLOOD SPECIMENOrdering Facility: [facility] Address: [address] [place] [address] Performed By: #### 5 7021-8 ####[facility] HOSPITALLI [id number] [place] [address] [place] Immature granulocytes (Bld) [#/Vol] 10*3/uL Normal <0.10 [facility] Comment on above: Order Comment: Speci men Type: BLOOD SPECIMENOrdering Facility: [facility] Address: [address] [place] [address] Performed By: #### 5 7021-8 ####[facility] [id number] [place] [address] [place] Immature granulocytes/100 WBC (Bld) 0.2 % Normal [facility] Comment on above: Order Comment: Speci men Type: BLOOD SPECIMENOrdering Facility: [facility] Address: [address] [place] [address] Performed By: #### 5 7021-8 ####[facility] [id number] [place] [address] [place] Lymphocytes (Bld) [#/Vol] 1.47 10*3/uL Normal 1.00-4.00 [facility] Comment on above: Order Comment: Speci men Type: BLOOD SPECIMENOrdering Facility: [facility] Address: [address] [place] [address] Performed By: #### 5 7021-8 ####[facility] [id number] [place] [address] [place] Lymphocytes/100 WBC (Bld) 30.0 % Normal [facility] Comment on above: Order Comment: Speci men Type: BLOOD SPECIMENOrdering Facility: [facility] Address: [address] [place] [address] Performed By: #### 5 7021-8 ####[facility] [id number] [place] [address] [place] MCH (RBC) [Entitic mass] 26.2 pg Normal 26.0-34.0 [facility] Comment on above: Order Comment: Speci men Type: BLOOD SPECIMENOrdering Facility: [facility] Address: [address] [place] [address] Performed By: #### 5 7021-8 ####[facility] DEVYNBEARDENNCLIA [id number] [place] [address] [place] MCHC (RBC) [Mass/Vol] 32.5 g/dL Normal 30.5-36.0 [facility] Comment on above: Order Comment: Speci men Type: BLOOD SPECIMENOrdering Facility: [facility] Address: [address] [place] [address] Performed By: #### 5 7021-8 ####[facility] HOSPITALNCA [id number] [place] [address] [place] MCV (RBC) [Entitic vol] 80.6 fL Normal 80.0-100.0 [facility] Comment on above: Order Comment: Speci men Type: BLOOD SPECIMENOrdering Facility: [facility] Address: [address] [place] [address] Performed By: #### 5 7021-8 ####[facility] [id number] [place] [address] [place] Monocytes (Bld) [#/Vol] 0.28 10*3/uL Normal <0.87 [facility] Comment on above: Order Comment: Speci men Type: BLOOD SPECIMENOrdering Facility: [facility] Address: [address] [place] [address] Performed By: #### 5 7021-8 ####[facility] HOSPITALLIA [id number] [place] [address] [place] Monocytes/100 WBC (Bld) 5.7 % Normal [facility] Comment on above: Order Comment: Speci men Type: BLOOD SPECIMENOrdering Facility: [facility] Address: [address] [place] [address] Performed By: #### 5 7021-8 ####[facility] [id number] [place] [address] [place] Neutrophils (Bld) [#/Vol] 2.97 10*3/uL Normal 1.45-7.50 [facility] Comment on above: Order Comment: Speci men Type: BLOOD SPECIMENOrdering Facility: [facility] Address: [address] [place] [address] Performed By: #### 5 7021-8 ####[facility] [id number] [place] [address] [place] Neutrophils/100 WBC (Bld) 60.7 % Normal [facility] Comment on above: Order Comment: Speci men Type: BLOOD SPECIMENOrdering Facility: [facility] Address: [address] [place] [address] Performed By: #### 5 7021-8 ####[facility] [id number] [place] [address] [place] Nucleated RBC (Bld) [#/Vol] 10*3/uL Normal <0.01 [facility] Comment on above: Order Comment: Speci men Type: BLOOD SPECIMENOrdering Facility: [facility] Address: [address] [place] [address] Performed By: #### 5 7021-8 ####[facility] HOSPITALNCLIA [id number] [place] [address] [place] Nucleated RBC/100 WBC (Bld) [Ratio] 0.0 /100 WBC Normal [facility] Comment on above: Order Comment: Speci men Type: BLOOD SPECIMENOrdering Facility: [facility] Address: [address] [place] [address] Performed By: #### 5 7021-8 ####[facility]ITALNCLI [id number] [place] [address] [place] Platelet mean volume (Bld) [Entitic vol] 9.1 fL Normal 9.0-12.7 [facility] Comment on above: Order Comment: Speci men Type: BLOOD SPECIMENOrdering Facility: [facility] Address: [address] [place] [address] Performed By: #### 5 7021-8 ####[facility]ITALNCLIA [id number] [place] [address] [place] Platelets (Bld) [#/Vol] 436 10*3/uL High 150-400 [facility] Comment on above: Order Comment: Speci men Type: BLOOD SPECIMENOrdering Facility: [facility] Address: [address] [place] [address] Performed By: #### 5 7021-8 ####[facility]ITALNCLIA [id number] [place] [address] [place] RBC (Bld) [#/Vol] 3.86 10*6/uL Low 3.90-5.20 [facility] Comment on above: Order Comment: Speci men Type: BLOOD SPECIMENOrdering Facility: [facility] Address: [address] [place] [address] Performed By: #### 5 7021-8 ####[facility]ITALNCA [id number] [place] [address] [place] WBC (Bld) [#/Vol] 4.90 10*3/uL Normal 3.70-11.00 [facility] Comment on above: Order Comment: Speci men Type: BLOOD SPECIMENOrdering Facility: [facility] Address: [address] [place] [address] Performed By: #### 5 7021-8 ####[facility]ITALNCLIA [id number] [place] [address] [place] CNPNon 07-04-2024 CNPN Normal [facility] BRIEF OP NOTon 07-03-2024 BRIEF OP NOT HNO ID: [id number] Author: RENU ESQUIVEL PA-C Service: Radiology Author Type: Physician Palliative Care Nurse Practitioner Type: Brief Op Note Filed: 07/03/2024 09:38 Note Text: BRIEF OP NOTE LOG ID: [id number] Surgery/Procedure Date: 07/03/2024 Incision/Procedure Start Time: 9:28 AM Incision Close/Procedure End Time: 9:31 AM Surgeon(s)/Proceduralist(s ) and Palliative Care Nurse Practitioner(s): Renu Esquivel PA-C Procedure(s): paracentesis Anesthesia: local 5 ml lidocaine Findings: RLQ 800 ml clear yellow fluid Estimated Blood Loss: <3 ml Specimens: Yes Complications: none Pre-Op/Pre-Procedure Diagnosis: ascites Post-Op/Post-Procedure Diagnosis: same SIGNATURE: Renu Esquivel PA-C PATIENT NAME: Evelyn Mccabe DATE: July 03, 2024 TIME: 9:38 AM PAGER/CONTACT #: [facility] CYTOLOGY NON-GYNon CASE REPORT [facility] Comment on above: Order Comment: Tessie cox Type: FLUID SPECIMEN [facility] Address: [address] [place] [address] Result Comment: [facility] Cytology Report Case: [id number] Authorizing Provider: Bk Lenz DO Collected: 07/03/2024 09:28 AM Ordering Location: [facility] Radiology Received: 07/03/2024 11:50 AM Pathologist: Mimi Bartlett MD Specimen: Ascites Fluid Performed By: #### C YTONON #### [facility] CLIA [id number] [address] [place] [address] OF [place] [facility] CLIA [id number] [address] [place] [address] OF [facility] CLINICAL HISTORY Normal [facility] Comment on above: Order Comment: Tessie cox Type: FLUID SPECIMEN [facility] Address: [address] [place] [address] Result Comment: Pre- op diagnosis: Peritoneal carcinomatosis (HCC) [C78.6] Disseminated malignant neoplasm of ovary, 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 The following cell blocks were associated with this case: A1 Cell Block, Alcohol Fixed Performed By: #### C YTONON #### [facility] CLIA [id number] [address] [place] [address] [facility] CLIA [id number] [address] FINAL PERFORMING LAB [facility] Comment on above: Order Comment: Speci men Type: FLUID SPECIMEN [facility] Address: [address] [place] [address] Result Comment: Tech nical component, green tire inspector screening performed at [facility], [address] [place] [address] CLIA# [id number] Diagnostic interpretation performed at [facility], [address] [place], [place] [address] CLIA# [id number] Capacity Planning Engineer: Jerrell Rodriguez M.D. Performed By: #### C YTONON #### [facility] CLIA [id number] [address] [place] [address] [facility] CLIA [id number] [address] GROSS DESCRIPTION [facility] Comment on above: Order Comment: Speci men Type: FLUID SPECIMEN [facility] Address: [address] [place] [address] Result Comment: A. A scites Fluid 80 cc cloudy chloe fluid with material. ThinPrep and Cell Block prepared. Performed By: #### C CORWIN #### [facility] CLIA [id number] [address] [place] [address] [id number] [facility] CLIA [id number] [address] PT panel Coag (PPP)on 2023 INR Coag (PPP) [Relative time] 0.9 {INR} Normal 0.9-1.3 [facility] Comment on above: Order Comment: Tessie cox Type: BLOOD SPECIMEN [facility] Address: [address] [place] [address] Result Comment: Sona min K Antagonist (VKA) Therapeutic Range: INR 2 to 3 (Target INR of 2.5) Note: For patients treated with VKA drugs, such as warfarin, the [place] [employer] 2012 Guideline recommends a therapeutic INR range of 2 to 3 (target INR of 2.5). This recommendation includes high-risk patients with antiphospholipid syndrome with previous arterial or venous thromboembolism, current-generation mechanical or bioprosthetic aortic heart valve replacement. Note: Patients with mechanical aortic valve replacement and additional risk factors for thromboembolic events (atrial fibrillation, previous thromboembolism, LV dysfunction, hypercoagulable conditions) or an older generation mechanical AVR (i.e., ball in-Cage) or any mechanical MVR should have a INR therapeutic range of 2.5 to 3.5 (target INR of 3). Donita GH, et al. Chest 2012, 141:7S-47S Selina RA, et al. JAC 2017, 70: 252-289 Performed By: #### 3 4528-0 #### [facility] CLIA [id number] [address] OF [facility] PT Coag (PPP) [Time] 10.2 s Normal 9.7-13.0 [facility] Comment on above: Order Comment: Spectyrone cox Type: BLOOD SPECIMEN [facility] Address: [address] [place] [address] Performed By: #### 3 4528-0 #### [facility] CLIA [id number] [address] [place] [address] [place] US ASCITES SURVEYon 07-03-20 24 US ASCITES SURVEY * * *Final Report* * * DATE OF EXAM: Jul 03 2024 9:38AM [facility] - US ASCITES SURVEY / PROCEDURE REASON: ascites * * * * Physician Interpretation * * * * EXAMINATION: US ASCITES SURVEY CLINICAL INFORMATION: 58 years old Female with ascites TECHNIQUE: Targeted sonography of the abdomen was performed. Images were obtained and stored in a permanent archive. RESULT/ IMPRESSION: Small volume abdominal ascites. Produce Field Merchandiser: LESTER Transcribe Date/Time: Jul 03 2024 3:37P Dictated by : EZEKIEL VIDAL DO This examination was interpreted and the report reviewed and electronically signed by: EZEKIEL VIDAL DO on Jul 03 2024 3:38PM EST [id number] [facility] US PARACENTESIS BIon 024 US PARACENTESIS BI * * *Final Report* * * DATE OF EXAM: Jul 03 2024 9:38AM [facility] - US PARACENTESIS BI / PROCEDURE REASON: ascites * * * * Physician Interpretation * * * * EXAM TITLE: ULTRASOUND GUIDED PARACENTESIS DATE: 07/03/2024 COMPARISON: Paracentesis 06/27/2024 CLINICAL INDICATION/HISTORY: Ascites Procedure Start Time and Sign In Time: 928 Procedure End Time and Sign Out Time: 931 TECHNIQUE: Informed consent was obtained from the patient. The patient was placed in a supine position and with ultrasound guidance an appropriate skin entry site in the right abdomen was identified, prepped, and anesthetized. With ultrasound guidance a 5-Nigerian Yueh needle and sheath was passed into the peritoneal space and 800 cc of clear, yellow fluid was withdrawn. Specimens were sent for laboratory evaluation. There were no apparent complications. FINDINGS: Ultrasound revealed a generous amount of ascites containing no debris. IMPRESSION: Technically successful ultrasound guided paracentesis yielded 800 cc of clear, yellow fluid. Produce Field Merchandiser: LESTER Transcribe Date/Time: Jul 03 2024 1:07P Dictated by : GUSTAVO FELIZ This examination was interpreted and the report reviewed and electronically signed by: GUSTAVO FELIZ on Jul 03 2024 1:18PM EST [id number] Normal [facility] CNPNon 07-02-2024 [facility] Telephone ([place]) -- EVELYN MCCABE ([id number]) 1965 F Date Time Provider Department 07/02/24 JUANITA SANTOS During your visit today, we recorded the following information about you: Juanita Santos RN 07/02/2024 9:58 AM Signed You are scheduled for a paracentesis at [facility] on Monday07/03/2024. You will receive a phone call the working day before letting you know the exact arrival time. Your procedure is scheduled to start at 0900 am. They will tell you to arrive about 1 hour before your procedure start time. (anticipate arriving at 0800 am). Park and enter at Entrance A which is located at the back of [facility] and take the elevator to the first floor. This will bring you to the Ambulatory surgery waiting area on first floor. You can expect to be here for approximately 3-5 hours. Diet: You may eat and drink like normal the day of your procedure. Medications: You may take your regular medications the morning of your procedure. If you have any questions, please don't hesitate to call the radiology nursing office at [phone] option 3.? if you need a wheelchair, or assistance at Entrance A when you arrive, please call [phone] Allergies As of Date: 07/02/2024 Noted Allergy Reaction BACTRIM (SULFAMETHOXAZOLE-TRIMETH* 02/29/2012 4 - Hives DILAUDID (HYDROMORPHONE) 02/09/2023 4 - Hives LIPITOR (ATORVASTATIN) 02/09/2023 6 - Diarrhea Comments: UTI, poor appetite, diarrhea METOPROLOL 02/09/2023 6 - Diarrhea Comments: fatigue, diarrhea Date Reviewed: 06/27/2024 Reviewed by: Deanna Gaitan, RT(R) - Fully Assessed Prescriptions as of 07/02/2024 - OLANZapine (ZYPREXA) 5 mg tablet Take 1 tablet by mouth daily at bedtime. beginning the evening of first day of chemotherapy each cycle. - dexAMETHasone (DECADRON) 4 mg tablet Take 1 tablet by mouth two times a day with meals. for 3 days beginning the day after chemotherapy treatment. - promethazine (PHENERGAN) 25 mg tablet Take 1 tablet by mouth every 6 hours as needed (For chemotherapy induced nausea/vomiting). FOR NAUSEA - OTC PRODUCT Take 1 tablet by mouth once daily. Odalys - polyethylene glycol 3350 (MIRALAX ORAL) Take by mouth two times a day as needed. - magnesium hydroxide (MILK OF MAGNESIA ORAL) Take by mouth as needed. - dicyclomine (BENTYL) 10 mg capsule Take 1 capsule by mouth every 6 hours. - ondansetron (ZOFRAN) 8 mg tablet Take 1 tablet by mouth every 8 hours as needed for nausea/vomiting (For chemotherapy induced nausea and vomiting). - iv contrast (will be provided with radiology test) CT Chest W -Inject, intravenously, once for 1 dose.No IV access, insert saline lock prior to the beginning of sedation, infusion, injection of imaging exam. Discontinue saline lock post exam. If Pt. has a central line or IVAD, may access for administration according to line specific nursing protocol. Once exam is complete flush line and de-access according to line specific nursing protocol in the CT contrast administration guidelines link. - iv contrast (will be provided with radiology test) CT ABD/PEL -Inject, intravenously, once for 1 dose.No IV access, insert saline lock prior to the beginning of sedation, infusion, injection of imaging exam. Discontinue saline lock post exam. If Pt. has a central line or IVAD, may access for administration according to line specific nursing protocol. Once exam is complete flush line and de-access according to line specific nursing protocol in the CT contrast administration guidelines link. - enteric contrast (will be provided with radiology test) For CT ABD/PEL W IVCON Routine order Administer, As Directed One Time Only, via Oral, Rectal, both Oral and Rectal, Enteric Tube, Stoma or Indwelling Catheter, Enteric Contrast as designated per enteric contrast guidelines - senna-docusate (SENNA-S) 8.6-50 mg per tablet Take 2 tablets by mouth two times a day. - DULoxetine (CYMBALTA) 30 mg capsule Take 1 capsule by mouth once daily. - aspirin 81 mg chewable tablet Take 1 tablet by mouth daily at bedtime. - acetaminophen (TYLENOL) 325 mg tablet Take 650 mg by mouth every 6 hours as needed. - Cholecalciferol, Vitamin D3, 50 mcg (2,000 unit) cap Take 5,000 Units by mouth once daily. Meds Comments as of 05/27/2020: Pharmacy - [facility] Problem List As Of Date 07/02/2024 Noted Resolved Closed Fracture of Head of Radius [S52.123A] 11/26/2004 Closed Fracture of Lower End of Humerus [812.4] 12/02/2004 Benign positional vertigo [H81.10] 08/27/2010 Tobacco abuse [Z72.0] 08/13/2012 Positive test for human papillomavirus (HPV) [I*09/05/2013 DVT (deep vein thrombosis) in [O22.30]07/24/2014 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]02/23/2023 Coronary artery disease involving [place]anson*02/24/2023 Peritoneal carcinomatosis (HCC) [C78.6] (more content not included)... [facility] 07-01-2024 [facility] BRIEF OP NOTon 06-27-2024 BRIEF OP NOT HNO ID: [id number] Author: WYATT JENKINS PA-C Service: ? Author Type: Physician Palliative Care Nurse Practitioner Type: Brief Op Note Filed: 06/27/2024 09:20 Note Text: BRIEF OP NOTE LOG ID: [id number] Surgery/Procedure Date: 06/27/2024 Incision/Procedure Start Time: 9:01 AM Incision Close/Procedure End Time: 9:13 AM Surgeon(s)/Proceduralist(s ) and Palliative Care Nurse Practitioner(s): WYATT JENKINS PA-C Procedure(s): paracentesis Anesthesia: local 5 ml lidocaine Findings: RLQ 2600 ml dark chloe fluid Estimated Blood Loss: <3 ml Specimens: Yes Complications: none Pre-Op/Pre-Procedure Diagnosis: ascites Post-Op/Post-Procedure Diagnosis: same SIGNATURE: WYATT JENKINS PA-C PATIENT NAME: Evelyn Mccabe DATE: June 27, 2024 TIME: 9:20 AM PAGER/CONTACT #: Normal [facility] CYTOLOGY NON-GYNon CASE REPORT Normal [facility] Comment on above: Order Comment: Speci men Type: FLUID SPECIMEN [facility] Address: [address] [place] [address] Result Comment: [facility] Cytology Report Case: [id number] Authorizing Provider: Wyatt Jenkins PA-C Collected: 06/27/2024 09:05 AM Ordering Location: [facility] Received: 06/27/2024 09:39 AM INTERVENTIONAL RADIOLOGY Pathologist: Marilin Motley MD Specimen: Ascites Fluid Performed By: #### C YTONON #### [facility] CLIA [id number] [address] [place] [address] CLINICAL HISTORY ascites Normal [facility] Comment on above: Order Comment: Speci men Type: FLUID SPECIMEN [facility] Address: [address] [place] [address] Performed By: #### C YTONON #### [facility] CLIA [id number] [address] [place] [address] FINAL DIAGNOSIS [facility] Comment on above: Order Comment: Speci men Type: FLUID SPECIMEN [facility] Address: [address] [place] [address] Result Comment: A - Ascites Fluid, Sterile Fluid/Body Fluid Positive for malignant cells. Compatible with high grade serous carcinoma. The following cell blocks were associated with this case: A1 Cell Block, Formalin Fixed Performed By: #### C YTONON #### [facility] CLIA [id number] [address] FINAL PERFORMING LAB Normal [facility] Comment on above: Order Comment: Speci men Type: FLUID SPECIMEN [facility] Address: [address] [place] [address] Result Comment: Tech nical component, green tire inspector screening performed at [facility], [address] [place] [address] CLIA# [id number] Diagnostic interpretation performed at [facility], [address] [place] [address] CLIA# [id number] Capacity Planning Engineer: Travis Moore M.D. Performed By: #### C YTONON #### [facility] CLIA [id number] [address] OF [facility] GROSS DESCRIPTION Normal [facility] Comment on above: Order Comment: Speci men Type: FLUID SPECIMEN [facility] Address: [address] [place] [address] Result Comment: A. A scites Fluid 1400 cc hazy red fluid. ThinPrep and Cell Block prepared. Performed By: #### C YTONON #### [facility] CLIA [id number] [address] OF [place] Guidance for paracentesis of Peritoneumon 06-27-2024 IMPRESSION: SUCCESSFUL ULTRASOUND GUIDED PARACENTESIS ABOVE. Produce Field Merchandiser: LESTER Transcribe Date/Time: Jun 27 2024 1:15P Dictated by : GUSTAVO RAYMUNDO This examination was interpreted and the report reviewed and electronically signed by: GUSTAVO RAYMUNDO on Jun 27 2024 1:17PM [facility] RADIOLOGY SYNGO * * *Final Report* * * DATE OF EXAM: Jun 27 2024 9:17AM [facility] 2039 - PARACENTESIS BI / PROCEDURE REASON: C78.6, C56.9, R18.8 * * * * Physician Interpretation * * * * PROCEDURE: ULTRASOUND GUIDED DIAGNOSTIC PARACENTESIS HISTORY: Patient is a 58 year old female who reports for paracentesis CONSENT: Risks, benefits, treatment options, potential complications and personnel to be involved were discussed with the patient and all questions were answered and consent was obtained prior to procedure. MEDICATION RECONCILIATION: The patient's medications and allergies were reviewed in the electronic medical record and reconciled to the proposed procedure/treatment. BRIANNA-PROCEDURE DISCUSSION: The appropriate elements of the pre-procedure discussion, safety check list and sign-out were performed. TIME OUT: A time out was performed immediately prior to procedure start with the nursing, and interventional team, correctly identifying the name, date of , procedure, anatomy (including marking of site and side if applicable), patient position, procedure consent form, relevant diagnostic and radiology test results, antibiotic administration if applicable, safety precautions, and procedure-specific equipment needs. Start of procedure (Time out): 900 End of procedure (Sign out): 912 Patient position: Supine Local anesthesia: 5mL 1 % lidocaine IMAGE GUIDANCE: Ultrasound. Digital images archived for documentation of guidance. TECHNIQUE: The patient was prepped and draped using all elements of maximal sterile barrier technique (cap, mask, sterile gown, sterile gloves, a large sterile sheet, hand hygiene and cutaneous antisepsis). After local anesthesia, a 5 [place] One-Step Valved centesis catheter was introduced into the ascites in the right lower quadrant . The catheter was connected to the suction device and fluid aspirated. After removal of the catheter, a sterile dressing was applied. RESULT: 2.6 L of yellow - colored, transparent ascites were removed. SPECIMENS: Fluid forwarded to lab for the following studies: cytology The patient tolerated the procedure well. There were no significant complications and no other complications during the procedure. 0 g of albumin was administered post procedurally; albumin not indicated . CONCLUSION: The patient was comfortable and was discharged home in stable condition. Estimated Blood Loss: Minimal The procedure was performed by: Wyatt Jenkins PA-C [facility] Provider, [facility] - 06/27/2024 * * *Final Report* * * DATE OF EXAM: Jun 27 2024 9:17AM [facility] 2039 - US PARACENTESIS BI / PROCEDURE REASON: C78.6, C56.9, R18.8 * * * * Physician Interpretation * * * * PROCEDURE: ULTRASOUND GUIDED DIAGNOSTIC PARACENTESIS HISTORY: Patient is a 58 year old female who reports for paracentesis CONSENT: Risks, benefits, treatment options, potential complications and personnel to be involved were discussed with the patient and all questions were answered and consent was obtained prior to procedure. MEDICATION RECONCILIATION: The patient's medications and allergies were reviewed in the electronic medical record and reconciled to the proposed procedure/treatment. BRIANNA-PROCEDURE DISCUSSION: The appropriate elements of the pre-procedure discussion, safety check list and sign-out were performed. TIME OUT: A time out was performed immediately prior to procedure start with the nursing, and interventional team, correctly identifying the name, date of , procedure, anatomy (including marking of site and side if applicable), patient position, procedure consent form, relevant diagnostic and radiology test results, antibiotic administration if applicable, safety precautions, and procedure-specific equipment needs. Start of procedure (Time out): 900 End of procedure (Sign out): 912 Patient position: Supine Local anesthesia: 5mL 1 % lidocaine IMAGE GUIDANCE: Ultrasound. Digital images archived for documentation of guidance. TECHNIQUE: The patient was prepped and draped using all elements of maximal sterile barrier technique (cap, mask, sterile gown, sterile gloves, a large sterile sheet, hand hygiene and cutaneous antisepsis). After local anesthesia, a 5 Nigerian One-Step Valved centesis catheter was introduced into the ascites in the right lower quadrant . The catheter was connected to the suction device and fluid aspirated. After removal of the catheter, a sterile dressing was applied. RESULT: 2.6 L of yellow - colored, transparent ascites were removed. SPECIMENS: Fluid forwarded to lab for the following studies: cytology The patient tolerated the procedure well. There were no significant complications and no other complications during the procedure. 0 g of albumin was administered post procedurally; albumin not indicated . CONCLUSION: The patient was comfortable and was discharged home in stable condition. Estimated Blood Loss: Minimal The procedure was performed by: Wyatt Jenkins PA-C IMPRESSION IMPRESSION: SUCCESSFUL ULTRASOUND GUIDED PARACENTESIS ABOVE. Produce Field Merchandiser: LESTER Transcribe Date/Time: Jun 27 2024 1:15P Dictated by : GUSTAVO RAYMUNDO This examination was interpreted and the report reviewed and electronically signed by: GUSTAVO RAYMUNDO on Jun 27 2024 1:17PM EST [facility] Radiology Study observation (narrative) [facility] Guidance for paracentesis of PeritoneumOrdered By: [facility] Provider on 06-27-2024 [facility] US PARACENTESIS BIon 024 US PARACENTESIS BI * * *Final Report* * * DATE OF EXAM: Jun 27 2024 9:17AM [facility] 2039 - US PARACENTESIS BI / PROCEDURE REASON: C78.6, C56.9, R18.8 * * * * Physician Interpretation * * * * PROCEDURE: ULTRASOUND GUIDED DIAGNOSTIC PARACENTESIS HISTORY: Patient is a 58 year old female who reports for paracentesis CONSENT: Risks, benefits, treatment options, potential complications and personnel to be involved were discussed with the patient and all questions were answered and consent was obtained prior to procedure. MEDICATION RECONCILIATION: The patient's medications and allergies were reviewed in the electronic medical record and reconciled to the proposed procedure/treatment. BRIANNA-PROCEDURE DISCUSSION: The appropriate elements of the pre-procedure discussion, safety check list and sign-out were performed. TIME OUT: A time out was performed immediately prior to procedure start with the nursing, and interventional team, correctly identifying the name, date of , procedure, anatomy (including marking of site and side if applicable), patient position, procedure consent form, relevant diagnostic and radiology test results, antibiotic administration if applicable, safety precautions, and procedure-specific equipment needs. Start of procedure (Time out): 900 End of procedure (Sign out): 912 Patient position: Supine Local anesthesia: 5mL 1 % lidocaine IMAGE GUIDANCE: Ultrasound. Digital images archived for documentation of guidance. TECHNIQUE: The patient was prepped and draped using all elements of maximal sterile barrier technique (cap, mask, sterile gown, sterile gloves, a large sterile sheet, hand hygiene and cutaneous antisepsis). After local anesthesia, a 5 Nigerian One-Step Valved centesis catheter was introduced into the ascites in the right lower quadrant . The catheter was connected to the suction device and fluid aspirated. After removal of the catheter, a sterile dressing was applied. RESULT: 2.6 L of yellow - colored, transparent ascites were removed. SPECIMENS: Fluid forwarded to lab for the following studies: cytology The patient tolerated the procedure well. There were no significant complications and no other complications during the procedure. 0 g of albumin was administered post procedurally; albumin not indicated . CONCLUSION: The patient was comfortable and was discharged home in stable condition. Estimated Blood Loss: Minimal The procedure was performed by: Wyatt Jenkins PA-C IMPRESSION: SUCCESSFUL ULTRASOUND GUIDED PARACENTESIS ABOVE. Produce Field Merchandiser: LESTER Transcribe Date/Time: Jun 27 2024 1:15P Dictated by : GUSTAVO RAYMUNDO This examination was interpreted and the report reviewed and electronically signed by: GUSTAVO RAYMUNDO on Jun 27 2024 1:17PM EST [id number] Normal [facility] CBC W Auto Differential pane l (Bld)on 06-26-2024 Anisocytosis Ql (Bld) Present Normal [facility] Comment on above: Order Comment: Speci men Type: BLOOD SPECIMENOrdering Facility: [facility] Address: [address] [place] [address] Performed By: #### 5 7021-8 ####[facility] CENTERWIESHALIA [id number] [address] LABORATORYCLIA [id number] [place] [address] [place] Basophils (Bld) [#/Vol] 0.00 10*3/uL Normal <0.11 [facility] Comment on above: Order Comment: Speci men Type: BLOOD SPECIMENOrdering Facility: [facility] Address: [address] [place] [address] Performed By: #### 5 7021-8 ####[facility] HOSPITALLIA [id number] [address] LABORATORYCLIA [id number] [place] [address] [place] Basophils/100 WBC (Bld) 0.0 % Normal [facility] Comment on above: Order Comment: Speci men Type: BLOOD SPECIMENOrdering Facility: [facility] Address: [address] [place] [address] Performed By: #### 5 7021-8 ####[facility] MILLWNCLIA [id number] [address] LABORATORYCLIA [id number] [place] [address] [place] Dacrocytes LM Ql (Bld) Few Normal [facility] Comment on above: Order Comment: Speci men Type: BLOOD SPECIMENOrdering Facility: [facility] Address: [address] [place] [address] Performed By: #### 5 7021-8 ####[facility] HOSPITALLIA [id number] [address] LABORATORYCLIA [id number] [address] STATES [facility] Differential cell count method Nom (Bld) Manual Normal [facility] Comment on above: Order Comment: Speci men Type: BLOOD SPECIMENOrdering Facility: [facility] Address: [address] [place] [address] Performed By: #### 5 7021-8 ####[facility]ITALNC[facility] [id number] [address] LABORATORYCLIA [id number] [place] [address] [place] Eosinophils (Bld) [#/Vol] 0.09 10*3/uL Normal <0.46 [facility] Comment on above: Order Comment: Speci men Type: BLOOD SPECIMENOrdering Facility: [facility] Address: [address] [place] [address] Performed By: #### 5 7021-8 ####[facility] INSTITUTEA [id number] [address] LABORATORYCLIA [id number] [place] [address] [place] Eosinophils/100 WBC (Bld) 2.0 % Normal [facility] Comment on above: Order Comment: Speci men Type: BLOOD SPECIMENOrdering Facility: [facility] Address: [address] [place] [address] Performed By: #### 5 7021-8 ####[facility] MILLTOWNCLIA [id number] [address] LABORATORYCLIA [id number] [place] [address] [place] Erythrocyte distribution width (RBC) [Ratio] 17.4 % High 11.5-15.0 [facility] Comment on above: Order Comment: Speci men Type: BLOOD SPECIMENOrdering Facility: [facility] Address: [address] [place] [address] Performed By: #### 5 7021-8 ####[facility] MILLTOWNCLIA [id number] [address] LABORATORYCLIA [id number] [place] [address] [place] Hematocrit (Bld) [Volume fraction] 31.0 % Low 36.0-46.0 [facility] Comment on above: Order Comment: Speci men Type: BLOOD SPECIMENOrdering Facility: [facility] Address: [address] [place] [address] Performed By: #### 5 7021-8 ####[facility] CENTERWNCLIA [id number] [address] LABORATORYCLIA [id number] [place] [address] [place] Hemoglobin (Bld) [Mass/Vol] 10.0 g/dL Low 11.5-15.5 [facility] Comment on above: Order Comment: Speci men Type: BLOOD SPECIMENOrdering Facility: [facility] Address: [address] [place] [address] Performed By: #### 5 7021-8 ####[facility] MILLTOWNCLIA [id number] [address] LABORATORYCLIA [id number] [address] OF [place] Lymphocytes (Bld) [#/Vol] 1.62 10*3/uL Normal 1.00-4.00 [facility] Comment on above: Order Comment: Speci men Type: BLOOD SPECIMENOrdering Facility: [facility] Address: [address] [place] [address] Performed By: #### 5 7021-8 ####[facility] CENTERWNCLIA [id number] [address] LABORATORYCLIA [id number] [place] [address] [place] Lymphocytes/100 WBC (Bld) 35.0 % Normal [facility] Comment on above: Order Comment: Speci men Type: BLOOD SPECIMENOrdering Facility: [facility] Address: [address] [place] [address] Performed By: #### 5 7021-8 ####[facility]PITALLIA [id number] [address] LABORATORYCLIA [id number] [place] [address] [place] MCH (RBC) [Entitic mass] 26.0 pg Normal 26.0-34.0 [facility] Comment on above: Order Comment: Speci men Type: BLOOD SPECIMENOrdering Facility: [facility] Address: [address] [place] [address] Performed By: #### 5 7021-8 ####[facility] CENTERWNCLIA [id number] [address] LABORATORYCLIA [id number] [address] STATES OF [facility] MCHC (RBC) [Mass/Vol] 32.3 g/dL Normal 30.5-36.0 [facility] Comment on above: Order Comment: Speci men Type: BLOOD SPECIMENOrdering Facility: [facility] Address: [facility] [place] [address] Performed By: #### 5 7021-8 ####[facility] CECILIAWNCLIA [id number] [address] LABORATORYCLIA [id number] [place] [address] [place] MCV (RBC) [Entitic vol] 80.5 fL Normal 80.0-100.0 [facility] Comment on above: Order Comment: Speci men Type: BLOOD SPECIMENOrdering Facility: [facility] Address: [address] [place] [address] Performed By: #### 5 7021-8 ####[facility] CENTERWIESHALIA [id number] [address] LABORATORYCLIA [id number] [address] Monocytes (Bld) [#/Vol] 0.27 10*3/uL Normal <0.87 [facility] Comment on above: Order Comment: Speci men Type: BLOOD SPECIMENOrdering Facility: [facility] Address: [address] [place] [address] Performed By: #### 5 7021-8 ####[facility] CECILIAWNCLIA [id number] [address] LABORATORYCLIA [id number] [address] STATES [facility] Monocytes/100 WBC (Bld) 6.0 % Normal [facility] Comment on above: Order Comment: Speci men Type: BLOOD SPECIMENOrdering Facility: [facility] Address: [address] [place], [place] [address] Performed By: #### 5 7021-8 ####[facility] HEALTHTOWNCLIA [id number] [address] [facility] LABORATORYCLIA [id number] [place] [address] [place] Neutrophils (Bld) [#/Vol] 2.53 10*3/uL Normal 1.45-7.50 [facility] Comment on above: Order Comment: Speci men Type: BLOOD SPECIMENOrdering Facility: [facility] Address: [address] [place] [address] Performed By: #### 5 7021-8 ####[facility] MILLTOWNCLIA [id number] [address] LABORATORYCLIA [id number] [place] [address] [place] Neutrophils/100 WBC (Bld) 56.0 % Normal [facility] Comment on above: Order Comment: Speci men Type: BLOOD SPECIMENOrdering Facility: [facility] Address: [address] [place] [address] Performed By: #### 5 7021-8 ####[facility] MILLTOWNCLIA [id number] [address] LABORATORYCLIA [id number] [place] [address] [place] Nucleated RBC (Bld) [#/Vol] 10*3/uL Normal <0.01 [facility] Comment on above: Order Comment: Speci men Type: BLOOD SPECIMENOrdering Facility: [facility] Address: [address] [place] [address] Performed By: #### 5 7021-8 ####[facility] HEALTHTOWNCLIA [id number] [address] LABORATORYCLIA [id number] [place] [address] [place] Nucleated RBC/100 WBC (Bld) [Ratio] 0.0 /100 WBC Normal [facility] Comment on above: Order Comment: Speci men Type: BLOOD SPECIMENOrdering Facility: [facility] Address: [address] [place] [address] Performed By: #### 5 7021-8 ####[facility] MILLTOWNCLIA [id number] [address] LABORATORYCLIA [id number] [place] [address] [place] Ovalocytes LM Ql (Bld) Few Normal [facility] Comment on above: Order Comment: Speci men Type: BLOOD SPECIMENOrdering Facility: [facility] Address: [address] [place] [address] Performed By: #### 5 7021-8 ####[facility] CENTERWNCLIA [id number] [address] LABORATORYCLIA [id number] [place] [address] [place] Platelet mean volume (Bld) [Entitic vol] 9.3 fL Normal 9.0-12.7 [facility] Comment on above: Order Comment: Speci men Type: BLOOD SPECIMENOrdering Facility: [facility] Address: [address] [place] [address] Performed By: #### 5 7021-8 ####[facility] DEVYNTOWNCLIA [id number] [address] LABORATORYCLIA [id number] [place] [address] [place] Platelets (Bld) [#/Vol] 426 10*3/uL High 150-400 [facility] Comment on above: Order Comment: Speci men Type: BLOOD SPECIMENOrdering Facility: [facility] Address: [address] [place] [address] Performed By: #### 5 7021-8 ####[facility] MILLTOWNCLIA [id number] [address] LABORATORYCLIA [id number] [place] [address] [place] Platelets Estimate (Bld) [#/Vol] Increased Normal [facility] Comment on above: Order Comment: Speci men Type: BLOOD SPECIMENOrdering Facility: [facility] Address: [address] [place] [address] Performed By: #### 5 7021-8 ####[facility] MILLTOWNCLIA [id number] [address] LABORATORYCLIA [id number] [place] [address] [place] Polychromasia LM Ql (Bld) Slight Normal [facility] Comment on above: Order Comment: Speci men Type: BLOOD SPECIMENOrdering Facility: [facility] Address: [address] [place] [address] Performed By: #### 5 7021-8 ####[facility] CENTERWNCLIA [id number] [address] LABORATORYCLIA [id number] [place] [address] [place] RBC (Bld) [#/Vol] 3.85 10*6/uL Low 3.90-5.20 [facility] Comment on above: Order Comment: Speci men Type: BLOOD SPECIMENOrdering Facility: [facility] Address: [address] [place] [address] Performed By: #### 5 7021-8 ####[facility] MILLWNCLIA [id number] [address] LABORATORYCLIA [id number] [place] [address] [place] RED CELL MORPH Reviewed: see result s of individual morphologies Normal [facility] Comment on above: Order Comment: Speci men Type: BLOOD SPECIMENOrdering Facility: [facility] Address: [address] [place] [address] Performed By: #### 5 7021-8 ####[facility] MILLTOWNCLIA [id number] [address] LABORATORYCLIA [id number] [place] [address] [place] Target cells LM Ql (Bld) Few Normal [facility] Comment on above: Order Comment: Speci men Type: BLOOD SPECIMENOrdering Facility: [facility] Address: [address] [place] [address] Performed By: #### 5 7021-8 ####[facility] CENTERWNCLIA [id number] [address] LABORATORYCLIA [id number] [place] [address] [place] Variant lymphocytes/100 WBC (Bld) 1.0 % Normal [facility] Comment on above: Order Comment: Speci men Type: BLOOD SPECIMENOrdering Facility: [facility] Address: [address] [place] [address] Performed By: #### 5 7021-8 ####[facility] MILLTOWNCLIA [id number] [address] LABORATORYCLIA [id number] [place] [address] [place] [facility] WBC (Bld) [#/Vol] 4.51 10*3/uL Normal 3.70-11.00 [facility] Comment on above: Order Comment: Speci men Type: BLOOD SPECIMENOrdering Facility: [facility] Address: [address] [place] [address] Performed By: #### 5 7021-8 ####[facility] MILLTOWNCLIA [id number] [address] LABORATORYCLIA [id number] [address] CNOVSPon 06-26-2024 CNOVSP Normal [facility] CNPNon 06-26-2024 CNPN Normal [facility] Cancer Ag125 SerPl-aCncon Cancer Ag 125 Qn 54 [arb'U]/mL High <39 [facility] Comment on above: Order Comment: Speci men Type: BLOOD SPECIMENOrdering Facility: [facility] Address: [address] [place] [address] Result Comment: CA 1 25 test methodology used is the Electrochemiluminescence Immunoassay by [employer]. Results obtained with different methods or kits cannot be used interchangeably.The reference interval is based on the 95th percentile of 240 apparently healthy premenopausal and postmenopausal women. At a cutoff value of 65 U/mL, the test sensitivity to distinguish ovarian carcinoma (FIGO stage I to IV) versus benign gynecological disease is 79%, with a specificity of 82%.Reference: Cancer Antigen 125 (CA 125 II) [package insert V 1.0 Citizen [place]]. [employer] [facility], [place], [place] (July 2015) Performed By: #### 1 0334-1 ####[facility] LABCLIA [id number] [address] Comprehensive metabolic 2000 panelOrdered By: Tracie Carmona on 06-26-2024 Albumin [Mass/Vol] 3.8 g/dL Low 3.9 - 4.9 g/dL [facility] ALP [Catalytic activity/Vol] 83 U/L 34 - 123 U/L [facility] ALT [Catalytic activity/Vol] 19 U/L 7 - 38 U/L [facility] Anion gap [Moles/Vol] 11 mmol/L 8 - 15 mmol/L [facility] AST [Catalytic activity/Vol] 21 U/L 13 - 35 U/L [facility] Bilirubin [Mass/Vol] 0.2 mg/dL 0.2 - 1 .3 mg/dL [facility] Calcium [Mass/Vol] 9.6 mg/dL 8.5 - 10. 2 mg/dL [facility] Chloride [Moles/Vol] 106 mmol/L 98 - 10 7 mmol/L [facility] CO2 [Moles/Vol] 23 mmol/L 22 - 30 mmol/L [facility] Creatinine [Mass/Vol] 0.92 mg/dL 0.58 - 0.96 mg/dL [facility] GFR/1.73 sq M.predicted among non-blacks MDRD (S/P/Bld) [Vol rate/Area] 72 mL/min/{1.73_m2} - PINF [facility] Comment on above: Estimated Glomerular Filtration Rate (eGFR) is calculated using the 2020 CKD-EPI creatinine equation. This equation utilizes serum creatinine, sex, and age as parameters. The creatinine assay has traceable calibration to isotope dilution-mass spectrometry. Refer to KDIGO guidelines for clinical interpretation. In patients with unstable renal function, e.g. those with acute kidney injury, the eGFR may not accurately reflect actual GFR. Glucose [Mass/Vol] 114 mg/dL High 74 - 99 mg/dL [facility] Comment on above: The [place] Diabete s Association (ADA) provides guidance for cutoff values for fasting glucose and random glucose. The ADA defines fasting as no caloric intake for at least 8 hours. Fasting plasma glucose results between 100 to 125 mg/dL indicate increased risk for diabetes (prediabetes). Fasting plasma glucose results greater than or equal to 126 mg/dL meet the criteria for diagnosis of diabetes. In the absence of unequivocal hyperglycemia, results should be confirmed by repeat testing. In a patient with classic symptoms of hyperglycemia or hyperglycemic crisis, random plasma glucose results greater than or equal to 200 mg/dL meet the criteria for diagnosis of diabetes. Reference: Standards of Medical Care in Diabetes 2016, [place] Diabetes Association. Diabetes Care. 2016.39(Suppl 1). Interpretation and review of laboratory results Abnormal [facility] Potassium [Moles/Vol] 4.1 mmol/L 3.7 - 5.1 mmol/L [facility] Protein [Mass/Vol] 6.6 g/dL 6.3 - 8.0 g/dL [facility] Sodium [Moles/Vol] 140 mmol/L 136 - 144 mmol/L [facility] Urea nitrogen [Mass/Vol] 10 mg/dL 7 - 21 mg/dL [facility] Comprehensive metabolic 2000 panelon 06-26-2024 Albumin [Mass/Vol] 3.8 g/dL Low 3.9-4.9 [facility] Comment on above: Order Comment: Speci men Type: BLOOD SPECIMENOrdering Facility: [facility] Address: [address] [place] [address] Performed By: #### 1 9123-9, 67732-8 ####[facility] CENTERWNCLIA [id number] [place] [address] [place] ALP [Catalytic activity/Vol] 83 U/L Normal 34-123 [facility] Comment on above: Order Comment: Speci men Type: BLOOD SPECIMENOrdering Facility: [facility] Address: [address] [place] [address] Performed By: #### 1 9123-9, 61091-9 ####[facility] COMM[facility] HOSPITALNCA [id number] [place] [address] [place] ALT [Catalytic activity/Vol] 19 U/L Normal 7-38 [facility] Comment on above: Order Comment: Speci men Type: BLOOD SPECIMENOrdering Facility: [facility] Address: [address] [place] [address] Performed By: #### 1 9123-9, 32146-8 ####[facility]STITUTEA [id number] [place] [address] [place] Anion gap [Moles/Vol] 11 mmol/L Normal 8-15 [facility] Comment on above: Order Comment: Speci men Type: BLOOD SPECIMENOrdering Facility: [facility] Address: [address] [place] [address] Performed By: #### 1 9123-9, 17132-7 ####[facility] HOSPITALLIA [id number] [place] [address] [place] AST [Catalytic activity/Vol] 21 U/L Normal 13-35 [facility] Comment on above: Order Comment: Speci men Type: BLOOD SPECIMENOrdering Facility: [facility] Address: [address] [place], [place] [address] Performed By: #### 1 9123-9, 31383-8 ####[facility] DEVYNLOTUSA [id number] [place] [address] [place] Bilirubin [Mass/Vol] 0.2 mg/dL Normal 0.2-1.3 [facility] Comment on above: Order Comment: Speci men Type: BLOOD SPECIMENOrdering Facility: [facility] Address: [address] [place] [address] Performed By: #### 1 9123-9, 60187-2 ####[facility] DEVYNEDER [id number] [place] [address] [place] Calcium [Mass/Vol] 9.6 mg/dL Normal 8.5-10.2 [facility] Comment on above: Order Comment: Speci men Type: BLOOD SPECIMENOrdering Facility: [facility] Address: [address] [place] [address] Performed By: #### 1 9123-9, 06042-0 ####[facility] DEVYNEDER [id number] [place] [address] [place] Chloride [Moles/Vol] 106 mmol/L Normal 98-107 [facility] Comment on above: Order Comment: Speci men Type: BLOOD SPECIMENOrdering Facility: [facility] Address: [address] [place] [address] Performed By: #### 1 9123-9, 02856-3 ####[facility] DEVYNTONYLIA [id number] [place] [address] [place] CO2 [Moles/Vol] 23 mmol/L Normal 22-30 [facility] Comment on above: Order Comment: Speci men Type: BLOOD SPECIMENOrdering Facility: [facility] Address: [address] [place] [address] Performed By: #### 1 9123-9, 12992-5 ####[facility]ITALNC[facility] [id number] [place] [address] [place] Creatinine [Mass/Vol] 0.92 mg/dL Normal 0.58-0.96 [facility] Comment on above: Order Comment: Tessie cox Type: BLOOD SPECIMENOrdering Facility: [facility] Address: [address] [place] [address] Performed By: #### 1 9123-9, 65610-2 ####[facility] [id number] [place] [address] [place] Creatinine and Glomerular filtration rate.predicted panel (S/P/Bld) 72 mL/min/1.73m??? Normal >=60 [facility] Comment on above: Order Comment: Tessie cox Type: BLOOD SPECIMENOrdering Facility: [facility] Address: [address] [place] [address] Result Comment: Mariana mated Glomerular Filtration Rate (eGFR) is calculated using the 2020 CKD-EPI creatinine equation. This equation utilizes serum creatinine, sex, and age as parameters. The creatinine assay has traceable calibration to isotope dilution-mass spectrometry. Refer to KDIGO guidelines for clinical interpretation. In patients with unstable renal function, e.g. those with acute kidney injury, the eGFR may not accurately reflect actual GFR. Performed By: #### 1 9123-9, 52313-5 ####[facility] [id number] [place] [address] [place] Glucose [Mass/Vol] 114 mg/dL High 74-99 [facility] Comment on above: Order Comment: Tessie cox Type: BLOOD SPECIMENOrdering Facility: [facility] Address: [address] [place] [address] Result Comment: The [place] Diabetes Association (ADA) provides guidance for cutoff values for fasting glucose and random glucose. The ADA defines fasting as no caloric intake for at least 8 hours. Fasting plasma glucose results between 100 to 125 mg/dL indicate increased risk for diabetes (prediabetes).Fasting plasma glucose results greater than or equal to 126 mg/dL meet the criteria for diagnosis of diabetes. In the absence of unequivocal hyperglycemia, results should be confirmed by repeat testing. In a patient with classic symptoms of hyperglycemia or hyperglycemic crisis, random plasma glucose results greater than or equal to 200 mg/dL meet the criteria for diagnosis of diabetes.Reference: Standards of Medical Care in Diabetes 2016, [place] [employer]. Diabetes Care. 2016.39(Suppl 1). Performed By: #### 1 9123-9, ####[facility] MILLTOWNCLIA [id number] [place] [address] [place] Potassium [Moles/Vol] 4.1 mmol/L Normal 3.7-5.1 [facility] Comment on above: Order Comment: Speci men Type: BLOOD SPECIMENOrdering Facility: [facility] Address: [address] [place] [address] Performed By: #### 1 9123-9, ####[facility] CENTERWVALIA [id number] [place] [address] [place] Protein [Mass/Vol] 6.6 g/dL Normal 6.3-8.0 [facility] Comment on above: Order Comment: Speci men Type: BLOOD SPECIMENOrdering Facility: [facility] Address: [address] [place] [address] Performed By: #### 1 9123-9, ####[facility] CENTERWNCLIA [id number] [place] [address] [place] Sodium [Moles/Vol] 140 mmol/L Normal 136-144 [facility] Comment on above: Order Comment: Speci men Type: BLOOD SPECIMENOrdering Facility: [facility] Address: [address] [place], [place] [address] Performed By: #### 1 9123-9, ####[facility] MILLWNCLIA [id number] [place] [address] [place] Urea nitrogen [Mass/Vol] 10 mg/dL Normal 7-21 [facility] Comment on above: Order Comment: Speci men Type: BLOOD SPECIMENOrdering Facility: [facility] Address: [address] [place] [address] Performed By: #### 1 9123-9, 96610-5 ####[facility] DEVYNBEARDENIESHATERESANely [id number] [place] [address] [place] MAGNESIUMon 06-26-2024 Magnesium [Mass/Vol] 1.8 mg/dL 1.7 - 2 .3 mg/dL [facility] Magnesium SerPl-mCncon 06-26 Magnesium [Mass/Vol] 1.8 mg/dL Normal 1.7-2.3 [facility] Comment on above: Order Comment: Speci men Type: BLOOD SPECIMENOrdering Facility: [facility] Address: [address] [place] [address] Performed By: #### 1 9123-9, 25894-3 ####[facility] HOSPITALLIA [id number] [place] [address] [place] Magnesium [Mass/Vol]on 06-26 Interpretation and review of laboratory results Normal [facility] CNPNon 06-14-2024 CNPN Normal [facility] CBC W Auto Differential pane l (Bld)on 06-13-2024 Basophils (Bld) [#/Vol] 0.03 10*3/uL [facility] Basophils/100 WBC (Bld) 0.8 % [facility] Differential cell count method Nom (Bld) Auto [facility] Eosinophils (Bld) [#/Vol] 0.09 10*3/uL [facility] Eosinophils/100 WBC (Bld) 2.3 % [facility] Erythrocyte distribution width (RBC) [Ratio] 16.6 % High 11.5 - 15.0 % [facility] Hematocrit (Bld) [Volume fraction] 31.7 % Low 36.0 - 46.0 % [facility] Hemoglobin (Bld) [Mass/Vol] 10.1 g/dL Low 11.5 - 15.5 g/dL [facility] Immature granulocytes (Bld) [#/Vol] NINF [facility] Immature granulocytes/100 WBC (Bld) 0.3 % [facility] Interpretation and review of laboratory results Abnormal [facility] Lymphocytes (Bld) [#/Vol] 1.07 10*3/uL [facility] Lymphocytes/100 WBC (Bld) 27.4 % [facility] MCH (RBC) [Entitic mass] 26.4 pg 26.0 - 34.0 pg [facility] MCHC (RBC) [Mass/Vol] 31.9 g/dL 30.5 - 36.0 g/dL [facility] MCV (RBC) [Entitic vol] 83.0 fL 80.0 - 100.0 fL [facility] Monocytes (Bld) [#/Vol] 0.31 10*3/uL [facility] Monocytes/100 WBC (Bld) 7.9 % [facility] Neutrophils (Bld) [#/Vol] 2.39 10*3/uL [facility] Neutrophils/100 WBC (Bld) 61.3 % [facility] Nucleated RBC (Bld) [#/Vol] NINF [facility] Nucleated RBC/100 WBC (Bld) [Ratio] 0.0 % /100 WBC [facility] Platelet mean volume (Bld) [Entitic vol] 8.8 fL Low 9.0 - 12.7 fL [facility] Platelets (Bld) [#/Vol] 250 10*3/uL [facility] RBC (Bld) [#/Vol] 3.82 10*6/uL Low 3.90 - 5.2 0 m/uL [facility] WBC (Bld) [#/Vol] 3.90 10*3/uL [facility] Basophils (Bld) [#/Vol] 0.03 10*3/uL Normal <0.11 [facility] Comment on above: Order Comment: Speci men Type: BLOOD SPECIMENOrdering Facility: [facility] Address: [address] [place], [place] [address] Performed By: #### 5 7021-8 ####[facility] TIMOCLEVEL[facility] [id number] [place] [address] [place] Basophils/100 WBC (Bld) 0.8 % Normal [facility] Comment on above: Order Comment: Speci men Type: BLOOD SPECIMENOrdering Facility: [facility] Address: [address] [place] [address] Performed By: #### 5 7021-8 ####[facility] INSTITUTEA [id number] [place] [address] [place] Differential cell count method Nom (Bld) Auto Normal [facility] Comment on above: Order Comment: Speci men Type: BLOOD SPECIMENOrdering Facility: [facility] Address: [address] [place] [address] Performed By: #### 5 7021-8 ####[facility] [id number] [place] [address] [place] Eosinophils (Bld) [#/Vol] 0.09 10*3/uL Normal <0.46 [facility] Comment on above: Order Comment: Speci men Type: BLOOD SPECIMENOrdering Facility: [facility] Address: [address] [place] [address] Performed By: #### 5 7021-8 ####[facility]A [id number] [place] [address] [place] Eosinophils/100 WBC (Bld) 2.3 % Normal [facility] Comment on above: Order Comment: Speci men Type: BLOOD SPECIMENOrdering Facility: [facility] Address: [address] [place] [address] Performed By: #### 5 7021-8 ####[facility]A [id number] [place] [address] [place] Erythrocyte distribution width (RBC) [Ratio] 16.6 % High 11.5-15.0 [facility] Comment on above: Order Comment: Speci men Type: BLOOD SPECIMENOrdering Facility: [facility] Address: [address] [place] [address] Performed By: #### 5 7021-8 ####[facility] DEVYNBEARDENKEV [id number] [place] [address] [place] Hematocrit (Bld) [Volume fraction] 31.7 % Low 36.0-46.0 [facility] Comment on above: Order Comment: Speci men Type: BLOOD SPECIMENOrdering Facility: [facility] Address: [address] [place] [address] Performed By: #### 5 7021-8 ####[facility]ITALNCASH[facility] [id number] [place] [address] [place] Hemoglobin (Bld) [Mass/Vol] 10.1 g/dL Low 11.5-15.5 [facility] Comment on above: Order Comment: Speci men Type: BLOOD SPECIMENOrdering Facility: [facility] Address: [address] [place] [address] Performed By: #### 5 7021-8 ####[facility] [id number] [place] [address] [place] Immature granulocytes (Bld) [#/Vol] 10*3/uL Normal <0.10 [facility] Comment on above: Order Comment: Speci men Type: BLOOD SPECIMENOrdering Facility: [facility] Address: [address] [place] [address] Performed By: #### 5 7021-8 ####[facility] HOSPITALLIA [id number] [place] [address] [place] Immature granulocytes/100 WBC (Bld) 0.3 % Normal [facility] Comment on above: Order Comment: Speci men Type: BLOOD SPECIMENOrdering Facility: [facility] Address: [address] [place] [address] Performed By: #### 5 7021-8 ####[facility] CENTERWVALIA [id number] [place] [address] [place] Lymphocytes (Bld) [#/Vol] 1.07 10*3/uL Normal 1.00-4.00 [facility] Comment on above: Order Comment: Speci men Type: BLOOD SPECIMENOrdering Facility: [facility] Address: [address] [place] [address] Performed By: #### 5 7021-8 ####[facility] [id number] [place] [address] [place] Lymphocytes/100 WBC (Bld) 27.4 % Normal [facility] Comment on above: Order Comment: Speci men Type: BLOOD SPECIMENOrdering Facility: [facility] Address: [address] [place] [address] Performed By: #### 5 7021-8 ####[facility] [id number] [place] [address] [place] MCH (RBC) [Entitic mass] 26.4 pg Normal 26.0-34.0 [facility] Comment on above: Order Comment: Speci men Type: BLOOD SPECIMENOrdering Facility: [facility] Address: [address] [place] [address] Performed By: #### 5 7021-8 ####[facility] [id number] [place] [address] [place] MCHC (RBC) [Mass/Vol] 31.9 g/dL Normal 30.5-36.0 [facility] Comment on above: Order Comment: Speci men Type: BLOOD SPECIMENOrdering Facility: [facility] Address: [address] [place] [address] Performed By: #### 5 7021-8 ####[facility] COMMUN[facility] HOSPITALNCLI [id number] [place] [address] [place] MCV (RBC) [Entitic vol] 83.0 fL Normal 80.0-100.0 [facility] Comment on above: Order Comment: Speci men Type: BLOOD SPECIMENOrdering Facility: [facility] Address: [address] [place] [address] Performed By: #### 5 7021-8 ####[facility]ITALNC[facility] [id number] [place] [address] [place] Monocytes (Bld) [#/Vol] 0.31 10*3/uL Normal <0.87 [facility] Comment on above: Order Comment: Speci men Type: BLOOD SPECIMENOrdering Facility: [facility] Address: [address] [place] [address] Performed By: #### 5 7021-8 ####[facility] [id number] [place] [address] [place] Monocytes/100 WBC (Bld) 7.9 % Normal [facility] Comment on above: Order Comment: Speci men Type: BLOOD SPECIMENOrdering Facility: [facility] Address: [address] [place] [address] Performed By: #### 5 7021-8 ####[facility] [id number] [place] [address] [place] Neutrophils (Bld) [#/Vol] 2.39 10*3/uL Normal 1.45-7.50 [facility] Comment on above: Order Comment: Speci men Type: BLOOD SPECIMENOrdering Facility: [facility] Address: [address] [place], [place] [address] Performed By: #### 5 7021-8 ####[facility]ITALNC[facility] [id number] [place] [address] [place] Neutrophils/100 WBC (Bld) 61.3 % Normal [facility] Comment on above: Order Comment: Speci men Type: BLOOD SPECIMENOrdering Facility: [facility] Address: [address] [place] [address] Performed By: #### 5 7021-8 ####[facility] DEVYNBEARDENKEV [id number] [place] [address] [place] Nucleated RBC (Bld) [#/Vol] 10*3/uL Normal <0.01 [facility] Comment on above: Order Comment: Speci men Type: BLOOD SPECIMENOrdering Facility: [facility] Address: [address] [place] [address] Performed By: #### 5 7021-8 ####[facility] [id number] [place] [address] [place] Nucleated RBC/100 WBC (Bld) [Ratio] 0.0 /100 WBC Normal [facility] Comment on above: Order Comment: Speci men Type: BLOOD SPECIMENOrdering Facility: [facility] Address: [address] [place] [address] Performed By: #### 5 7021-8 ####[facility]A [id number] [place] [address] [place] Platelet mean volume (Bld) [Entitic vol] 8.8 fL Low 9.0-12.7 [facility] Comment on above: Order Comment: Speci men Type: BLOOD SPECIMENOrdering Facility: [facility] Address: [address] [place] [address] Performed By: #### 5 7021-8 ####[facility] HOSPITALNCLIA [id number] [place] [address] [place] Platelets (Bld) [#/Vol] 250 10*3/uL Normal 150-400 [facility] Comment on above: Order Comment: Speci men Type: BLOOD SPECIMENOrdering Facility: [facility] Address: [address] [place] [address] Performed By: #### 5 7021-8 ####[facility] HOSPITALNCLIA [id number] [place] [address] [place] RBC (Bld) [#/Vol] 3.82 10*6/uL Low 3.90-5.20 [facility] Comment on above: Order Comment: Speci men Type: BLOOD SPECIMENOrdering Facility: [facility] Address: [address] [place] [address] Performed By: #### 5 7021-8 ####[facility] HOSPITALNCLIA [id number] [place] [address] [place] WBC (Bld) [#/Vol] 3.90 10*3/uL Normal 3.70-11.00 [facility] Comment on above: Order Comment: Speci men Type: BLOOD SPECIMENOrdering Facility: [facility] Address: [address] [place] [address] Performed By: #### 5 7021-8 ####[facility] HOSPITALNCLIA [id number] [place] [address] [place] CNPNon 06-13-2024 CNPN Normal [facility] Comprehensive metabolic 2000 panelOrdered By: Marium Vu on 06-13-2024 Albumin [Mass/Vol] 3.6 g/dL Low 3.9 - 4.9 g/dL [facility] ALP [Catalytic activity/Vol] 71 U/L 34 - 123 U/L [facility] ALT [Catalytic activity/Vol] 13 U/L 7 - 38 U/L [facility] Anion gap [Moles/Vol] 12 mmol/L 8 - 15 mmol/L [facility] AST [Catalytic activity/Vol] 20 U/L 13 - 35 U/L [facility] Bilirubin [Mass/Vol] 0.2 mg/dL 0.2 - 1 .3 mg/dL [facility] Calcium [Mass/Vol] 9.3 mg/dL 8.5 - 10. 2 mg/dL [facility] Chloride [Moles/Vol] 102 mmol/L 98 - 10 7 mmol/L [facility] CO2 [Moles/Vol] 23 mmol/L 22 - 30 mmol/L [facility] Creatinine [Mass/Vol] 0.91 mg/dL 0.58 - 0.96 mg/dL [facility] GFR/1.73 sq M.predicted among non-blacks MDRD (S/P/Bld) [Vol rate/Area] 73 mL/min/{1.73_m2} - PINF [facility] Comment on above: Estimated Glomerular Filtration Rate (eGFR) is calculated using the 2020 CKD-EPI creatinine equation. This equation utilizes serum creatinine, sex, and age as parameters. The creatinine assay has traceable calibration to isotope dilution-mass spectrometry. Refer to KDIGO guidelines for clinical interpretation. In patients with unstable renal function, e.g. those with acute kidney injury, the eGFR may not accurately reflect actual GFR. Glucose [Mass/Vol] 102 mg/dL High 74 - 99 mg/dL [facility] Comment on above: The [place] [employer] (ADA) provides guidance for cutoff values for fasting glucose and random glucose. The ADA defines fasting as no caloric intake for at least 8 hours. Fasting plasma glucose results between 100 to 125 mg/dL indicate increased risk for diabetes (prediabetes). Fasting plasma glucose results greater than or equal to 126 mg/dL meet the criteria for diagnosis of diabetes. In the absence of unequivocal hyperglycemia, results should be confirmed by repeat testing. In a patient with classic symptoms of hyperglycemia or hyperglycemic crisis, random plasma glucose results greater than or equal to 200 mg/dL meet the criteria for diagnosis of diabetes. Reference: Standards of Medical Care in Diabetes 2016, [place] [employer]. Diabetes Care. 2016.39(Suppl 1). Interpretation and review of laboratory results Abnormal [facility] Potassium [Moles/Vol] 4.0 mmol/L 3.7 - 5.1 mmol/L [facility] Protein [Mass/Vol] 6.7 g/dL 6.3 - 8.0 g/dL [facility] Sodium [Moles/Vol] 137 mmol/L 136 - 144 mmol/L [facility] Urea nitrogen [Mass/Vol] 11 mg/dL 7 - 21 mg/dL [facility] Comprehensive metabolic 2000 panelon 06-13-2024 Albumin [Mass/Vol] 3.6 g/dL Low 3.9-4.9 [facility] Comment on above: Order Comment: Speci men Type: BLOOD SPECIMENOrdering Facility: [facility] Address: [address] [place] [address] Performed By: #### 2 4323-8, 57804-7 ####[facility] TIMO CABRALESA [id number] [place] [address] [place] ALP [Catalytic activity/Vol] 71 U/L Normal 34-123 [facility] Comment on above: Order Comment: Speci men Type: BLOOD SPECIMENOrdering Facility: [facility] Address: [address] [place] [address] Performed By: #### 2 4323-8, ####[facility] AUGIEIESHALIA [id number] [place] [address] [place] ALT [Catalytic activity/Vol] 13 U/L Normal 7-38 [facility] Comment on above: Order Comment: Speci men Type: BLOOD SPECIMENOrdering Facility: [facility] Address: [address] [place] [address] Performed By: #### 2 4323-8, ####[facility] DEVYNMadeleineIESHALIA [id number] [place] [address] [place] Anion gap [Moles/Vol] 12 mmol/L Normal 8-15 [facility] Comment on above: Order Comment: Speci men Type: BLOOD SPECIMENOrdering Facility: [facility] Address: [address] [place] [address] Performed By: #### 2 4323-8, ####[facility] DEVYNWNCLIA [id number] [place] [address] [place] AST [Catalytic activity/Vol] 20 U/L Normal 13-35 [facility] Comment on above: Order Comment: Speci men Type: BLOOD SPECIMENOrdering Facility: [facility] Address: [address] [place] [address] Performed By: #### 2 4323-8, ####[facility] TIMO MILLTOWNCLIA [id number] [place] [address] [place] Bilirubin [Mass/Vol] 0.2 mg/dL Normal 0.2-1.3 [facility] Comment on above: Order Comment: Speci men Type: BLOOD SPECIMENOrdering Facility: [facility] Address: [address] [place] [address] Performed By: #### 2 4323-8, ####[facility] MILLTOWNCLIA [id number] [place] [address] [place] Calcium [Mass/Vol] 9.3 mg/dL Normal 8.5-10.2 [facility] Comment on above: Order Comment: Speci men Type: BLOOD SPECIMENOrdering Facility: [facility] Address: [address] [place] [address] Performed By: #### 2 4323-8, ####[facility] CENTERWNCLIA [id number] [place] [address] [place] Chloride [Moles/Vol] 102 mmol/L Normal 98-107 [facility] Comment on above: Order Comment: Speci men Type: BLOOD SPECIMENOrdering Facility: [facility] Address: [address] [place] [address] Performed By: #### 2 4323-8, ####[facility] MILLTOWNCLIA [id number] [place] [address] [place] CO2 [Moles/Vol] 23 mmol/L Normal 22-30 [facility] Comment on above: Order Comment: Speci men Type: BLOOD SPECIMENOrdering Facility: [facility] Address: [address] [place] [address] Performed By: #### 2 4323-8, ####[facility] MILLTOWNCLIA [id number] [place] [address] [place] Creatinine [Mass/Vol] 0.91 mg/dL Normal 0.58-0.96 [facility] Comment on above: Order Comment: Tessie cox Type: BLOOD SPECIMENOrdering Facility: [facility] Address: [address] [place] [address] Performed By: #### 2 4323-8, ####[facility] [id number] [place] [address] [place] Creatinine and Glomerular filtration rate.predicted panel (S/P/Bld) 73 mL/min/1.73m??? Normal >=60 [facility] Comment on above: Order Comment: Tessie cox Type: BLOOD SPECIMENOrdering Facility: [facility] Address: [address] [place] [address] Result Comment: Mariana mated Glomerular Filtration Rate (eGFR) is calculated using the 2020 CKD-EPI creatinine equation. This equation utilizes serum creatinine, sex, and age as parameters. The creatinine assay has traceable calibration to isotope dilution-mass spectrometry. Refer to KDIGO guidelines for clinical interpretation. In patients with unstable renal function, e.g. those with acute kidney injury, the eGFR may not accurately reflect actual GFR. Performed By: #### 2 4323-8, 98143-5 ####[facility]A [id number] [place] [address] [place] Glucose [Mass/Vol] 102 mg/dL High 74-99 [facility] Comment on above: Order Comment: Tessie cox Type: BLOOD SPECIMENOrdering Facility: [facility] Address: [address] [place] [address] Result Comment: The [place] [employer] (ADA) provides guidance for cutoff values for fasting glucose and random glucose. The ADA defines fasting as no caloric intake for at least 8 hours. Fasting plasma glucose results between 100 to 125 mg/dL indicate increased risk for diabetes (prediabetes).Fasting plasma glucose results greater than or equal to 126 mg/dL meet the criteria for diagnosis of diabetes. In the absence of unequivocal hyperglycemia, results should be confirmed by repeat testing. In a patient with classic symptoms of hyperglycemia or hyperglycemic crisis, random plasma glucose results greater than or equal to 200 mg/dL meet the criteria for diagnosis of diabetes.Reference: Standards of Medical Care in Diabetes 2016, [place] [employer]. Diabetes Care. 2016.39(Suppl 1). Performed By: #### 2 4323-8, ####[facility] MILLTOWNCLIA [id number] [place] [address] [place] Potassium [Moles/Vol] 4.0 mmol/L Normal 3.7-5.1 [facility] Comment on above: Order Comment: Speci men Type: BLOOD SPECIMENOrdering Facility: [facility] Address: [address] [place] [address] Performed By: #### 2 432-8, ####[facility] HOSPITALNCLIA [id number] [place] [address] [place] Protein [Mass/Vol] 6.7 g/dL Normal 6.3-8.0 [facility] Comment on above: Order Comment: Speci men Type: BLOOD SPECIMENOrdering Facility: [facility] Address: [address] [place] [address] Performed By: #### 2 43212-21, ####[facility] HOSPITALLIA [id number] [place] [address] [place] Sodium [Moles/Vol] 137 mmol/L Normal 136-144 [facility] Comment on above: Order Comment: Speci men Type: BLOOD SPECIMENOrdering Facility: [facility] Address: [address] [place], [place] [address] Performed By: #### 2 4323, ####[facility] MILLWNCLIA [id number] [place] [address] [place] Urea nitrogen [Mass/Vol] 11 mg/dL Normal 7-21 [facility] Comment on above: Order Comment: Speci men Type: BLOOD SPECIMENOrdering Facility: [facility] Address: [address] [place] [address] Performed By: #### 2 4323-8, 29937-3 ####[facility] TIMO GHOSHNCLIA [id number] [place] [address] [place] MAGNESIUMon 06-13-2024 Magnesium [Mass/Vol] 1.9 mg/dL 1.7 - 2 .3 mg/dL [facility] Magnesium SerPl-mCncon 06-13 Magnesium [Mass/Vol] 1.9 mg/dL Normal 1.7-2.3 [facility] Comment on above: Order Comment: Speci men Type: BLOOD SPECIMENOrdering Facility: [facility] Address: [address] [place] [address] Performed By: #### 2 4323-8, 78849-4 ####[facility] TIMO DEVYNBEARDENNCLIA [id number] [place] [address] [place] Magnesium [Mass/Vol]on 06-13 Interpretation and review of laboratory results Normal [facility] No Panel InformationOrdered By: Marium Vu on 06-13-2024 [facility] CNPNon 06-07-2024 CNPN Normal [facility] CBC W Auto Differential pane l (Bld)on 06-06-2024 Basophils (Bld) [#/Vol] 0.04 10*3/uL [facility] Basophils/100 WBC (Bld) 0.6 % [facility] Differential cell count method Nom (Bld) Auto [facility] Eosinophils (Bld) [#/Vol] 0.10 10*3/uL [facility] Eosinophils/100 WBC (Bld) 1.6 % [facility] Erythrocyte distribution width (RBC) [Ratio] 17.0 % High 11.5 - 15.0 % [facility] Hematocrit (Bld) [Volume fraction] 33.1 % Low 36.0 - 46.0 % [facility] Hemoglobin (Bld) [Mass/Vol] 10.7 g/dL Low 11.5 - 15.5 g/dL [facility] Immature granulocytes (Bld) [#/Vol] [facility] Immature granulocytes/100 WBC (Bld) 0.3 % [facility] Interpretation and review of laboratory results Abnormal [facility] Lymphocytes (Bld) [#/Vol] 1.57 10*3/uL [facility] Lymphocytes/100 WBC (Bld) 24.8 % [facility] MCH (RBC) [Entitic mass] 26.9 pg 26.0 - 34.0 pg [facility] MCHC (RBC) [Mass/Vol] 32.3 g/dL 30.5 - 36.0 g/dL [facility] MCV (RBC) [Entitic vol] 83.2 fL 80.0 - 100.0 fL [facility] Monocytes (Bld) [#/Vol] 0.60 10*3/uL [facility] Monocytes/100 WBC (Bld) 9.5 % [facility] Neutrophils (Bld) [#/Vol] 3.99 10*3/uL [facility] Neutrophils/100 WBC (Bld) 63.2 % [facility] Nucleated RBC (Bld) [#/Vol] [facility] Nucleated RBC/100 WBC (Bld) [Ratio] 0.0 % /100 WBC [facility] Platelet mean volume (Bld) [Entitic vol] 8.6 fL Low 9.0 - 12.7 fL [facility] Platelets (Bld) [#/Vol] 416 10*3/uL High [facility] RBC (Bld) [#/Vol] 3.98 10*6/uL 3.90 - 5.2 0 m/uL [facility] WBC (Bld) [#/Vol] 6.32 10*3/uL [facility] Basophils (Bld) [#/Vol] 0.04 10*3/uL Normal <0.11 [facility] Comment on above: Order Comment: Speci men Type: BLOOD SPECIMENOrdering Facility: [facility] Address: [address] [place] [address] Performed By: #### 5 7021-8 ####[facility] TIMOOKLAHOMA CITY VETERANS ADMINIST[facility] – OKLAHOMA CITYURI [id number] [place] [address] [place] Basophils/100 WBC (Bld) 0.6 % Normal [facility] Comment on above: Order Comment: Speci men Type: BLOOD SPECIMENOrdering Facility: [facility] Address: [address] [place] [address] Performed By: #### 5 7021-8 ####[facility] HOSPITALLIA [id number] [place] [address] [place] Differential cell count method Nom (Bld) Auto Normal [facility] Comment on above: Order Comment: Speci men Type: BLOOD SPECIMENOrdering Facility: [facility] Address: [address] [place] [address] Performed By: #### 5 7021-8 ####[facility] [id number] [place] [address] [place] Eosinophils (Bld) [#/Vol] 0.10 10*3/uL Normal <0.46 [facility] Comment on above: Order Comment: Speci men Type: BLOOD SPECIMENOrdering Facility: [facility] Address: [address] [place] [address] Performed By: #### 5 7021-8 ####[facility] INSTITUTEA [id number] [place] [address] [place] Eosinophils/100 WBC (Bld) 1.6 % Normal [facility] Comment on above: Order Comment: Speci men Type: BLOOD SPECIMENOrdering Facility: [facility] Address: [address] [place] [address] Performed By: #### 5 7021-8 ####[facility] COMMUN[facility] HOSPITALNCA [id number] [place] [address] [place] Erythrocyte distribution width (RBC) [Ratio] 17.0 % High 11.5-15.0 [facility] Comment on above: Order Comment: Speci men Type: BLOOD SPECIMENOrdering Facility: [facility] Address: [address] [place] [address] Performed By: #### 5 7021-8 ####[facility] DEVYNWNCLIA [id number] [place] [address] [place] Hematocrit (Bld) [Volume fraction] 33.1 % Low 36.0-46.0 [facility] Comment on above: Order Comment: Speci men Type: BLOOD SPECIMENOrdering Facility: [facility] Address: [address] [place] [address] Performed By: #### 5 7021-8 ####[facility]ITALLIA [id number] [place] [address] [place] Hemoglobin (Bld) [Mass/Vol] 10.7 g/dL Low 11.5-15.5 [facility] Comment on above: Order Comment: Speci men Type: BLOOD SPECIMENOrdering Facility: [facility] Address: [address] [place] [address] Performed By: #### 5 7021-8 ####[facility]ITALLIA [id number] [place] [address] [place] Immature granulocytes (Bld) [#/Vol] 10*3/uL Normal <0.10 [facility] Comment on above: Order Comment: Speci men Type: BLOOD SPECIMENOrdering Facility: [facility] Address: [address] [place] [address] Performed By: #### 5 7021-8 ####[facility]ITALLIA [id number] [place] [address] [place] Immature granulocytes/100 WBC (Bld) 0.3 % Normal [facility] Comment on above: Order Comment: Speci men Type: BLOOD SPECIMENOrdering Facility: [facility] Address: [address] [place] [address] Performed By: #### 5 7021-8 ####[facility]ITALLIA [id number] [place] [address] [place] Lymphocytes (Bld) [#/Vol] 1.57 10*3/uL Normal 1.00-4.00 [facility] Comment on above: Order Comment: Speci men Type: BLOOD SPECIMENOrdering Facility: [facility] Address: [address] [place] [address] Performed By: #### 5 7021-8 ####[facility] [id number] [place] [address] [place] Lymphocytes/100 WBC (Bld) 24.8 % Normal [facility] Comment on above: Order Comment: Speci men Type: BLOOD SPECIMENOrdering Facility: [facility] Address: [address] [place] [address] Performed By: #### 5 7021-8 ####[facility] [id number] [place] [address] [place] MCH (RBC) [Entitic mass] 26.9 pg Normal 26.0-34.0 [facility] Comment on above: Order Comment: Speci men Type: BLOOD SPECIMENOrdering Facility: [facility] Address: [address] [place] [address] Performed By: #### 5 7021-8 ####[facility] [id number] [place] [address] [place] MCHC (RBC) [Mass/Vol] 32.3 g/dL Normal 30.5-36.0 [facility] Comment on above: Order Comment: Speci men Type: BLOOD SPECIMENOrdering Facility: [facility] Address: [address] [place] [address] Performed By: #### 5 7021-8 ####[facility] COMM[facility] HOSPITALNCLI [id number] [place] [address] [place] MCV (RBC) [Entitic vol] 83.2 fL Normal 80.0-100.0 [facility] Comment on above: Order Comment: Speci men Type: BLOOD SPECIMENOrdering Facility: [facility] Address: [address] [place] [address] Performed By: #### 5 7021-8 ####[facility] HOSPITALKIAN [id number] [place] [address] [place] Monocytes (Bld) [#/Vol] 0.60 10*3/uL Normal <0.87 [facility] Comment on above: Order Comment: Speci men Type: BLOOD SPECIMENOrdering Facility: [facility] Address: [address] [place] [address] Performed By: #### 5 7021-8 ####[facility] [id number] [place] [address] [place] Monocytes/100 WBC (Bld) 9.5 % Normal [facility] Comment on above: Order Comment: Speci men Type: BLOOD SPECIMENOrdering Facility: [facility] Address: [address] [place] [address] Performed By: #### 5 7021-8 ####[facility] [id number] [place] [address] [place] Neutrophils (Bld) [#/Vol] 3.99 10*3/uL Normal 1.45-7.50 [facility] Comment on above: Order Comment: Speci men Type: BLOOD SPECIMENOrdering Facility: [facility] Address: [address] [place] [address] Performed By: #### 5 7021-8 ####[facility] H[facility]PITALNCASH[facility] [id number] [place] [address] [place] Neutrophils/100 WBC (Bld) 63.2 % Normal [facility] Comment on above: Order Comment: Speci men Type: BLOOD SPECIMENOrdering Facility: [facility] Address: [address] [place] [address] Performed By: #### 5 7021-8 ####[facility]ALL[facility] [id number] [place] [address] [place] Nucleated RBC (Bld) [#/Vol] 10*3/uL Normal <0.01 [facility] Comment on above: Order Comment: Speci men Type: BLOOD SPECIMENOrdering Facility: [facility] Address: [address] [place] [address] Performed By: #### 5 7021-8 ####[facility] [id number] [place] [address] [place] Nucleated RBC/100 WBC (Bld) [Ratio] 0.0 /100 WBC Normal [facility] Comment on above: Order Comment: Speci men Type: BLOOD SPECIMENOrdering Facility: [facility] Address: [address] [place] [address] Performed By: #### 5 7021-8 ####[facility]ITALL[facility] [id number] [place] [address] [place] Platelet mean volume (Bld) [Entitic vol] 8.6 fL Low 9.0-12.7 [facility] Comment on above: Order Comment: Speci men Type: BLOOD SPECIMENOrdering Facility: [facility] Address: [address] [place] [address] Performed By: #### 5 7021-8 ####[facility]ALL[facility] [id number] [place] [address] [place] Platelets (Bld) [#/Vol] 416 10*3/uL High 150-400 [facility] Comment on above: Order Comment: Speci men Type: BLOOD SPECIMENOrdering Facility: [facility] Address: [address] [place] [address] Performed By: #### 5 7021-8 ####[facility]PITALLI [id number] [place] [address] [place] RBC (Bld) [#/Vol] 3.98 10*6/uL Normal 3.90-5.20 [facility] Comment on above: Order Comment: Speci men Type: BLOOD SPECIMENOrdering Facility: [facility] Address: [address] [place] [address] Performed By: #### 5 7021-8 ####[facility] [id number] [place] [address] [place] WBC (Bld) [#/Vol] 6.32 10*3/uL Normal 3.70-11.00 [facility] Comment on above: Order Comment: Speci men Type: BLOOD SPECIMENOrdering Facility: [facility] Address: [address] [place] [address] Performed By: #### 5 7021-8 ####[facility] [id number] [address] [place] Cancer Ag125 SerPl-aCncon Cancer Ag 125 Qn 48 [arb'U]/mL High <39 [facility] Comment on above: Order Comment: Speci men Type: BLOOD SPECIMENOrdering Facility: [facility] Address: [address] [place] [address] Result Comment: CA 1 25 test methodology used is the Electrochemiluminescence Immunoassay by [employer]. Results obtained with different methods or kits cannot be used interchangeably.The reference interval is based on the 95th percentile of 240 apparently healthy premenopausal and postmenopausal women. At a cutoff value of 65 U/mL, the test sensitivity to distinguish ovarian carcinoma (FIGO stage I to IV) versus benign gynecological disease is 79%, with a specificity of 82%.Reference: Cancer Antigen 125 (CA 125 II) [package insert V 1.0 [place]]. [employer] [facility], [place], [place] (July 2015) Performed By: #### 1 0334-1 ####[facility] LABCLIA [id number] [address] [place] Comprehensive metabolic 2000 panelOrdered By: Mercedes Mckeon on 06-06-2024 Albumin [Mass/Vol] 3.7 g/dL Low 3.9 - 4.9 g/dL [facility] ALP [Catalytic activity/Vol] 70 U/L 34 - 123 U/L [facility] ALT [Catalytic activity/Vol] 10 U/L 7 - 38 U/L [facility] Anion gap [Moles/Vol] 7 mmol/L Low 8 - 15 mmol/L [facility] AST [Catalytic activity/Vol] 17 U/L 13 - 35 U/L [facility] Bilirubin [Mass/Vol] mg/dL Low 0.2 - 1 .3 mg/dL [facility] Calcium [Mass/Vol] 9.2 mg/dL 8.5 - 10. 2 mg/dL [facility] Chloride [Moles/Vol] 106 mmol/L 98 - 10 7 mmol/L [facility] CO2 [Moles/Vol] 23 mmol/L 22 - 30 mmol/L [facility] Creatinine [Mass/Vol] 0.85 mg/dL 0.58 - 0.96 mg/dL [facility] GFR/1.73 sq M.predicted among non-blacks MDRD (S/P/Bld) [Vol rate/Area] 80 mL/min/{1.73_m2} - PINF [facility] Comment on above: Estimated Glomerular Filtration Rate (eGFR) is calculated using the 2020 CKD-EPI creatinine equation. This equation utilizes serum creatinine, sex, and age as parameters. The creatinine assay has traceable calibration to isotope dilution-mass spectrometry. Refer to KDIGO guidelines for clinical interpretation. In patients with unstable renal function, e.g. those with acute kidney injury, the eGFR may not accurately reflect actual GFR. Glucose [Mass/Vol] 108 mg/dL High 74 - 99 mg/dL [facility] Comment on above: The [place] Diabete s Association (ADA) provides guidance for cutoff values for fasting glucose and random glucose. The ADA defines fasting as no caloric intake for at least 8 hours. Fasting plasma glucose results between 100 to 125 mg/dL indicate increased risk for diabetes (prediabetes). Fasting plasma glucose results greater than or equal to 126 mg/dL meet the criteria for diagnosis of diabetes. In the absence of unequivocal hyperglycemia, results should be confirmed by repeat testing. In a patient with classic symptoms of hyperglycemia or hyperglycemic crisis, random plasma glucose results greater than or equal to 200 mg/dL meet the criteria for diagnosis of diabetes. Reference: Standards of Medical Care in Diabetes 2016, [place] Diabetes Association. Diabetes Care. 2016.39(Suppl 1). Interpretation and review of laboratory results Abnormal [facility] Potassium [Moles/Vol] 4.0 mmol/L 3.7 - 5.1 mmol/L [facility] Protein [Mass/Vol] 6.6 g/dL 6.3 - 8.0 g/dL [facility] Sodium [Moles/Vol] 136 mmol/L 136 - 144 mmol/L [facility] Urea nitrogen [Mass/Vol] 15 mg/dL 7 - 21 mg/dL [facility] Comprehensive metabolic 2000 panelon 06-06-2024 Albumin [Mass/Vol] 3.7 g/dL Low 3.9-4.9 [facility] Comment on above: Order Comment: Speci brooke Type: BLOOD SPECIMENOrdering Facility: [facility] Address: [address] [place] [address] Performed By: #### 2 4323-8, ####[facility]ITALLIA [id number] [place] [address] [place] ALP [Catalytic activity/Vol] 70 U/L Normal 34-123 [facility] Comment on above: Order Comment: Tessie cox Type: BLOOD SPECIMENOrdering Facility: [facility] Address: [address] [place] [address] Performed By: #### 2 4323-8, ####[facility] CENTERWNCLIA [id number] [place] [address] [place] ALT [Catalytic activity/Vol] 10 U/L Normal 7-38 [facility] Comment on above: Order Comment: Cheyennei brooke Type: BLOOD SPECIMENOrdering Facility: [facility] Address: [address] [place] [address] Performed By: #### 2 4323-8, ####[facility] HOSPITALNCLIA [id number] [place] [address] [place] Anion gap [Moles/Vol] 7 mmol/L Low 8-15 [facility] Comment on above: Order Comment: Speci men Type: BLOOD SPECIMENOrdering Facility: [facility] Address: [address] [place] [address] Performed By: #### 2 4323-8, 98207-1 ####[facility] TIMO MILLTOWNCLIA [id number] [place] [address] [place] AST [Catalytic activity/Vol] 17 U/L Normal 13-35 [facility] Comment on above: Order Comment: Speci men Type: BLOOD SPECIMENOrdering Facility: [facility] Address: [address] [place] [address] Performed By: #### 2 4323-8, 89110-8 ####[facility] HEALTHTONYLIA [id number] [place] [address] [place] Bilirubin [Mass/Vol] mg/dL Low 0.2-1.3 [facility] Comment on above: Order Comment: Speci men Type: BLOOD SPECIMENOrdering Facility: [facility] Address: [address] [place] [address] Performed By: #### 2 4323-8, 64153-4 ####[facility] MILLMADDIEWIESHALIA [id number] [place] [address] [place] Calcium [Mass/Vol] 9.2 mg/dL Normal 8.5-10.2 [facility] Comment on above: Order Comment: Speci men Type: BLOOD SPECIMENOrdering Facility: [facility] Address: [address] [place] [address] Performed By: #### 2 4323-8, 46418-0 ####[facility] MILLTOWIESHALIA [id number] [place] [address] [place] Chloride [Moles/Vol] 106 mmol/L Normal 98-107 [facility] Comment on above: Order Comment: Speci men Type: BLOOD SPECIMENOrdering Facility: [facility] Address: [address] [place], [place] [address] Performed By: #### 2 4323-8, ####[facility] [id number] [place] [address] [place] CO2 [Moles/Vol] 23 mmol/L Normal 22-30 [facility] Comment on above: Order Comment: Speci men Type: BLOOD SPECIMENOrdering Facility: [facility] Address: [address] [place] [address] Performed By: #### 2 4323-8, ####[facility] [id number] [place] [address] [place] Creatinine [Mass/Vol] 0.85 mg/dL Normal 0.58-0.96 [facility] Comment on above: Order Comment: Speci men Type: BLOOD SPECIMENOrdering Facility: [facility] Address: [address] [place] [address] Performed By: #### 2 4323-8, ####[facility]STITUTEA [id number] [address] OF [facility] Creatinine and Glomerular filtration rate.predicted panel (S/P/Bld) 80 mL/min/1.73m??? Normal >=60 [facility] Comment on above: Order Comment: Speci men Type: BLOOD SPECIMENOrdering Facility: [facility] Address: [address] [place] [address] Result Comment: Mariana mated Glomerular Filtration Rate (eGFR) is calculated using the 2020 CKD-EPI creatinine equation. This equation utilizes serum creatinine, sex, and age as parameters. The creatinine assay has traceable calibration to isotope dilution-mass spectrometry. Refer to KDIGO guidelines for clinical interpretation. In patients with unstable renal function, e.g. those with acute kidney injury, the eGFR may not accurately reflect actual GFR. Performed By: #### 2 4323-8, 28041-4 ####[facility] CENTERWNCLIA [id number] [place] [address] [place] Glucose [Mass/Vol] 108 mg/dL High 74-99 [facility] Comment on above: Order Comment: Speci men Type: BLOOD SPECIMENOrdering Facility: [facility] Address: [address] [place], [place] [address] Result Comment: The [place] Diabetes Association (ADA) provides guidance for cutoff values for fasting glucose and random glucose. The ADA defines fasting as no caloric intake for at least 8 hours. Fasting plasma glucose results between 100 to 125 mg/dL indicate increased risk for diabetes (prediabetes).Fasting plasma glucose results greater than or equal to 126 mg/dL meet the criteria for diagnosis of diabetes. In the absence of unequivocal hyperglycemia, results should be confirmed by repeat testing. In a patient with classic symptoms of hyperglycemia or hyperglycemic crisis, random plasma glucose results greater than or equal to 200 mg/dL meet the criteria for diagnosis of diabetes.Reference: Standards of Medical Care in Diabetes 2016, [place] Diabetes Association. Diabetes Care. 2016.39(Suppl 1). Performed By: #### 2 4323-8, 62914-8 ####[facility] HOSPITALNCLIA [id number] [place] [address] [place] Potassium [Moles/Vol] 4.0 mmol/L Normal 3.7-5.1 [facility] Comment on above: Order Comment: Speci men Type: BLOOD SPECIMENOrdering Facility: [facility] Address: [address] [place] [address] Performed By: #### 2 4323-8, ####[facility] HOSPITALNCA [id number] [place] [address] [place] Protein [Mass/Vol] 6.6 g/dL Normal 6.3-8.0 [facility] Comment on above: Order Comment: Speci men Type: BLOOD SPECIMENOrdering Facility: [facility] Address: [address] [place] [address] Performed By: #### 2 4323-8, 55764-5 ####[facility] CECILIANALLELYLIA [id number] [place] [address] [place] Sodium [Moles/Vol] 136 mmol/L Normal 136-144 [facility] Comment on above: Order Comment: Speci men Type: BLOOD SPECIMENOrdering Facility: [facility] Address: [facility] [place] [id number] Performed By: #### 2 4323-8, ####[facility] DEVYNALYSSIA [id number] [place] [address] [place] Urea nitrogen [Mass/Vol] 15 mg/dL Normal 7-21 [facility] Comment on above: Order Comment: Speci men Type: BLOOD SPECIMENOrdering Facility: [facility] Address: [facility] MARYEmelia [place] [id number] Performed By: #### 2 4323-8, ####[facility] DEVYNBEARDENKIANA [id number] [place] [address] [place] MAGNESIUMon 06-06-2024 Magnesium [Mass/Vol] 1.7 mg/dL 1.7 - 2 .3 mg/dL [facility] Magnesium SerPl-mCncon 06-06 Magnesium [Mass/Vol] 1.7 mg/dL Normal 1.7-2.3 [facility] Comment on above: Order Comment: Speci men Type: BLOOD SPECIMENOrdering Facility: [facility] Address: [address] [place] [address] Performed By: #### 2 4323-8, ####[facility] HOSPITALNCLIA [id number] [place] [address] [place] Magnesium [Mass/Vol]on 06-06 Interpretation and review of laboratory results Normal [facility] No Panel InformationOrdered By: Mercedes Mckeon on 06-06-2024 [facility] CNOVSPon 05-31-2024 CNOVSP Normal [facility] CNPNon 05-31-2024 CNPN Normal [facility] BRIEF OP NOTon 05-30-2024 BRIEF OP NOT HNO ID: [id number] Author: RENU ESQUIVEL PA-C Service: Radiology Author Type: Physician Palliative Care Nurse Practitioner Type: Brief Op Note Filed: 05/30/2024 09:46 Note Text: BRIEF OP NOTE LOG ID: [id number] Surgery/Procedure Date: 05/30/2024 Incision/Procedure Start Time: 9:30 AM Incision Close/Procedure End Time: 9:45 AM Surgeon(s)/Proceduralist(s ) and Palliative Care Nurse Practitioner(s): Renu Esquivel PA-C Procedure(s): paracentesis Anesthesia: local 5 ml lidocaine Findings: LLQ 1000 ml clear yellow fluid Estimated Blood Loss: <3 ml Specimens: Yes Complications: none Pre-Op/Pre-Procedure Diagnosis: ascites Post-Op/Post-Procedure Diagnosis: same SIGNATURE: Renu Esquivel PA-C PATIENT NAME: Evelyn Mccabe DATE: May 30, 2024 TIME: 9:46 AM PAGER/CONTACT #: Normal [facility] CYTOLOGY NON-GYNon CASE REPORT Normal [facility] Comment on above: Order Comment: Speci men Type: FLUID SPECIMEN [facility] Address: [address] [place] [address] Result Comment: [facility] Cytology Report Case: [id number] Authorizing Provider: Renu Esquivel PA-C Collected: 05/30/2024 09:49 AM Ordering Location: [facility] Received: 05/30/2024 12:01 PM INTERVENTIONAL RADIOLOGY Pathologist: Marilin Motley MD Specimen: Ascites Fluid Performed By: #### C CORWIN #### [facility] CLIA [id number] [address] [place] [address] [place] [facility] CLINICAL HISTORY ascites Normal [facility] Comment on above: Order Comment: Speci men Type: FLUID SPECIMEN [facility] Address: [address] [place] [address] Performed By: #### C YTONON #### [facility] CLIA [id number] [address] DIAGNOSIS COMMENT Normal [facility] Comment on above: Order Comment: Speci men Type: FLUID SPECIMEN [facility] Address: [address] [place] [address] Result Comment: Aggr egates of high-grade serous carcinoma demonstrate positivity for PAX8, p16, and negative staining for estrogen receptor and p53 (aberrant, null phenotype). Laboratory Developed Test (LDT) Disclaimer: Performance characteristics of immunohistochemical, immunofluorescent and chromogenic in-situ hybridization tests have been determined by the performing laboratory within [facility]???s Ellie Arango [facility] Pathology and Laboratory Medicine Department ([facility], [facility] [place], [facility], [facility], [facility], [facility] [facility], or [facility]) in a manner consistent with CLIA requirements. One or more of these tests have not been cleared or approved by the FDA. [facility] is regulated under CLIA as qualified to perform high-complexity testing. These tests are used for clinical purposes. They should not be regarded as investigational or for research. Positive and negative controls stain appropriately. Performed By: #### C YTONON #### [facility] CLIA [id number] [address] [place] [address] FINAL DIAGNOSIS [facility] Comment on above: Order Comment: Speci men Type: FLUID SPECIMEN Ordering Facility: [facility] Address: [address] [place] [address] Result Comment: A - Ascites Fluid, Sterile Fluid/Body Fluid Positive for malignant cells. Compatible with high-grade, serous carcinoma. The following cell blocks were associated with this case: A1 Cell Block, Formalin Fixed Performed By: #### C YTONON #### [facility] CLIA [id number] [address] FINAL PERFORMING LAB Normal [facility] Comment on above: Order Comment: Speci men Type: FLUID SPECIMEN Ordering Facility: [facility] Address: [address] [place] [address] Result Comment: Tech nical component, green tire inspector screening performed at [facility], [address] [place] [address] CLIA# [id number] Diagnostic interpretation performed at [facility], [address] [place] [address] CLIA# [id number] Capacity Planning Engineer: Travis Moore M.D. Performed By: #### C YTONON #### [facility] CLIA [id number] [address] OF [facility] GROSS DESCRIPTION Normal [facility] Comment on above: Order Comment: Speci men Type: FLUID SPECIMEN Ordering Facility: [facility] Address: [address] [place] [address] Result Comment: A. A scites Fluid 1000 cc hazy yellow fluid. ThinPrep and Cell Block prepared. Performed By: #### C YTONON #### [facility] CLIA [id number] [address] OF [place] Guidance for paracentesis of Peritoneumon 05-30-2024 IMPRESSION: Technenrico kay successful ultrasound guided paracentesis yielded 1000 cc of clear, yellow fluid. Produce Field Merchandiser: LESTER Transcribe Date/Time: May 30 2024 2:47P Dictated by : GUSTAVO FELIZ This examination was interpreted and the report reviewed and electronically signed by: GUSTAVO FELIZ on May 30 2024 2:49PM [facility] SYNGO * * *Final Report* * * DATE OF EXAM: May 30 2024 9:56AM [facility] 9 - US PARACENTESIS BI / PROCEDURE REASON: C78.6, C56.9, R18.8 * * * * Physician Interpretation * * * * EXAM TITLE: ULTRASOUND GUIDED PARACENTESIS DATE: 05/30/2024 COMPARISON: CT A/P 12/11/2023 CLINICAL INDICATION/HISTORY: Ascites Procedure Start Time and Sign In Time: 9:30 Procedure End Time and Sign Out Time: 9:45 TECHNIQUE: Informed consent was obtained from the patient. The patient was placed in a supine position and with ultrasound guidance an appropriate skin entry site in the left abdomen was identified, prepped, and anesthetized. With ultrasound guidance a 5-Nigerian Yueh needle and sheath was passed into the peritoneal space and 1000 cc of clear, yellow fluid was withdrawn. Specimens were sent for laboratory evaluation. There were no apparent complications. FINDINGS: Ultrasound revealed a generous amount of ascites containing no debris. [facility] Provider, Aleja Crump [facility] - 05/30/2024 * * *Final Report* * * DATE OF EXAM: May 30 2024 9:56AM [facility] 2038 - US PARACENTESIS BI / PROCEDURE REASON: C78.6, C56.9, R18.8 * * * * Physician Interpretation * * * * EXAM TITLE: ULTRASOUND GUIDED PARACENTESIS DATE: 05/30/2024 COMPARISON: CT A/P 12/11/2023 CLINICAL INDICATION/HISTORY: Ascites Procedure Start Time and Sign In Time: 9:30 Procedure End Time and Sign Out Time: 9:45 TECHNIQUE: Informed consent was obtained from the patient. The patient was placed in a supine position and with ultrasound guidance an appropriate skin entry site in the left abdomen was identified, prepped, and anesthetized. With ultrasound guidance a 5-Nigerian Yueh needle and sheath was passed into the peritoneal space and 1000 cc of clear, yellow fluid was withdrawn. Specimens were sent for laboratory evaluation. There were no apparent complications. FINDINGS: Ultrasound revealed a generous amount of ascites containing no debris. IMPRESSION IMPRESSION: Technically successful ultrasound guided paracentesis yielded 1000 cc of clear, yellow fluid. Produce Field Merchandiser[facility] Transcribe Date/Time: May 30 2024 2:47P Dictated by : GUSTAVO FELIZ This examination was interpreted and the report reviewed and electronically signed by: GUSTAVO FELIZ on May 30 2024 2:49PM EST [facility] Radiology Study observation (narrative) [facility] Guidance for paracentesis of PeritoneumOrdered By: [facility] Provider on 05-30-2024 [facility] US PARACENTESIS BIon 024 US PARACENTESIS BI * * *Final Report* * * DATE OF EXAM: May 30 2024 9:56AM [facility] 2038 - US PARACENTESIS BI / PROCEDURE REASON: C78.6, C56.9, R18.8 * * * * Physician Interpretation * * * * EXAM TITLE: ULTRASOUND GUIDED PARACENTESIS DATE: 05/30/2024 COMPARISON: CT A/P 12/11/2023 CLINICAL INDICATION/HISTORY: Ascites Procedure Start Time and Sign In Time: 9:30 Procedure End Time and Sign Out Time: 9:45 TECHNIQUE: Informed consent was obtained from the patient. The patient was placed in a supine position and with ultrasound guidance an appropriate skin entry site in the left abdomen was identified, prepped, and anesthetized. With ultrasound guidance a 5-Nigerian Yueh needle and sheath was passed into the peritoneal space and 1000 cc of clear, yellow fluid was withdrawn. Specimens were sent for laboratory evaluation. There were no apparent complications. FINDINGS: Ultrasound revealed a generous amount of ascites containing no debris. IMPRESSION: Technically successful ultrasound guided paracentesis yielded 1000 cc of clear, yellow fluid. Produce Field Merchandiser: LESTER Transcribe Date/Time: May 30 2024 2:47P Dictated by : GUSTAVO FELIZ This examination was interpreted and the report reviewed and electronically signed by: GUSTAVO FELIZ on May 30 2024 2:49PM EST [id number] Normal [facility] CNPNon 05-27-2024 CNPN Normal [facility] CT ABD/PEL W IVCONon 024 CT ABD/PEL W IVCON Invalid Interpretation Code [facility] CT CHEST W IVCONon 4 CT CHEST W IVCON Normal [facility] 05-24-2024 CNPN Normal [facility] CBC W Auto Differential pane l (Bld)on 05-23-2024 Basophils (Bld) [#/Vol] 0.03 10*3/uL [facility] Basophils/100 WBC (Bld) 0.7 % [facility] Differential cell count method Nom (Bld) Auto [facility] Eosinophils (Bld) [#/Vol] 0.05 10*3/uL [facility] Eosinophils/100 WBC (Bld) 1.2 % [facility] Erythrocyte distribution width (RBC) [Ratio] 17.4 % High 11.5 - 15.0 % [facility] Hematocrit (Bld) [Volume fraction] 32.3 % Low 36.0 - 46.0 % [facility] Hemoglobin (Bld) [Mass/Vol] 10.5 g/dL Low 11.5 - 15.5 g/dL [facility] Immature granulocytes (Bld) [#/Vol] NINF [facility] Immature granulocytes/100 WBC (Bld) 0.2 % [facility] Interpretation and review of laboratory results Abnormal [facility] Lymphocytes (Bld) [#/Vol] 1.44 10*3/uL [facility] Lymphocytes/100 WBC (Bld) 34.4 % [facility] MCH (RBC) [Entitic mass] 27.2 pg 26.0 - 34.0 pg [facility] MCHC (RBC) [Mass/Vol] 32.5 g/dL 30.5 - 36.0 g/dL [facility] MCV (RBC) [Entitic vol] 83.7 fL 80.0 - 100.0 fL [facility] Monocytes (Bld) [#/Vol] 0.33 10*3/uL [facility] Monocytes/100 WBC (Bld) 7.9 % [facility] Neutrophils (Bld) [#/Vol] 2.32 10*3/uL [facility] Neutrophils/100 WBC (Bld) 55.6 % [facility] Nucleated RBC (Bld) [#/Vol] NINF [facility] Nucleated RBC/100 WBC (Bld) [Ratio] 0.0 % /100 WBC [facility] Platelet mean volume (Bld) [Entitic vol] 9.6 fL 9.0 - 12.7 fL [facility] Platelets (Bld) [#/Vol] 340 10*3/uL [facility] RBC (Bld) [#/Vol] 3.86 10*6/uL Low 3.90 - 5.2 0 m/uL [facility] WBC (Bld) [#/Vol] 4.18 10*3/uL [facility] Basophils (Bld) [#/Vol] 0.03 10*3/uL Normal <0.11 [facility] Comment on above: Order Comment: Speci men Type: BLOOD SPECIMENOrdering Facility: [facility] Address: [address] [place] [address] Performed By: #### 5 7021-8 ####[facility] TIMO SY [id number] [place] [address] [place] Basophils/100 WBC (Bld) 0.7 % Normal [facility] Comment on above: Order Comment: Speci men Type: BLOOD SPECIMENOrdering Facility: [facility] Address: [address] [place] [address] Performed By: #### 5 7021-8 ####[facility] [id number] [place] [address] [place] Differential cell count method Nom (Bld) Auto Normal [facility] Comment on above: Order Comment: Speci men Type: BLOOD SPECIMENOrdering Facility: [facility] Address: [address] [place] [address] Performed By: #### 5 7021-8 ####[facility] [id number] [place] [address] [place] Eosinophils (Bld) [#/Vol] 0.05 10*3/uL Normal <0.46 [facility] Comment on above: Order Comment: Speci men Type: BLOOD SPECIMENOrdering Facility: [facility] Address: [address] [place] [address] Performed By: #### 5 7021-8 ####[facility] [id number] [place] [address] [place] Eosinophils/100 WBC (Bld) 1.2 % Normal [facility] Comment on above: Order Comment: Speci men Type: BLOOD SPECIMENOrdering Facility: [facility] Address: [address] [place] [address] Performed By: #### 5 7021-8 ####[facility] HOSPITALNCLIA [id number] [place] [address] [place] Erythrocyte distribution width (RBC) [Ratio] 17.4 % High 11.5-15.0 [facility] Comment on above: Order Comment: Speci men Type: BLOOD SPECIMENOrdering Facility: [facility] Address: [address] [place] [address] Performed By: #### 5 7021-8 ####[facility] DEVYNBEARDENKEV [id number] [place] [address] [place] Hematocrit (Bld) [Volume fraction] 32.3 % Low 36.0-46.0 [facility] Comment on above: Order Comment: Speci men Type: BLOOD SPECIMENOrdering Facility: [facility] Address: [address] [place] [address] Performed By: #### 5 7021-8 ####[facility] [id number] [place] [address] [place] Hemoglobin (Bld) [Mass/Vol] 10.5 g/dL Low 11.5-15.5 [facility] Comment on above: Order Comment: Speci men Type: BLOOD SPECIMENOrdering Facility: [facility] Address: [address] [place] [address] Performed By: #### 5 7021-8 ####[facility] [id number] [place] [address] [place] Immature granulocytes (Bld) [#/Vol] 10*3/uL Normal <0.10 [facility] Comment on above: Order Comment: Speci men Type: BLOOD SPECIMENOrdering Facility: [facility] Address: [address] [place] [address] Performed By: #### 5 7021-8 ####[facility] [id number] [place] [address] [place] Immature granulocytes/100 WBC (Bld) 0.2 % Normal [facility] Comment on above: Order Comment: Speci men Type: BLOOD SPECIMENOrdering Facility: [facility] Address: [address] [place] [address] Performed By: #### 5 7021-8 ####[facility] MILLWNCLIA [id number] [place] [address] [place] Lymphocytes (Bld) [#/Vol] 1.44 10*3/uL Normal 1.00-4.00 [facility] Comment on above: Order Comment: Speci men Type: BLOOD SPECIMENOrdering Facility: [facility] Address: [address] [place] [address] Performed By: #### 5 7021-8 ####[facility]PITALLIA [id number] [place] [address] [place] Lymphocytes/100 WBC (Bld) 34.4 % Normal [facility] Comment on above: Order Comment: Speci men Type: BLOOD SPECIMENOrdering Facility: [facility] Address: [address] [place] [address] Performed By: #### 5 7021-8 ####[facility] [id number] [place] [address] [place] MCH (RBC) [Entitic mass] 27.2 pg Normal 26.0-34.0 [facility] Comment on above: Order Comment: Speci men Type: BLOOD SPECIMENOrdering Facility: [facility] Address: [address] [place] [address] Performed By: #### 5 7021-8 ####[facility] HOSPITALLIA [id number] [place] [address] [place] MCHC (RBC) [Mass/Vol] 32.5 g/dL Normal 30.5-36.0 [facility] Comment on above: Order Comment: Speci men Type: BLOOD SPECIMENOrdering Facility: [facility] Address: [address] [place] [address] Performed By: #### 5 7021-8 ####[facility] HOSPITALNCLIA [id number] [place] [address] [place] MCV (RBC) [Entitic vol] 83.7 fL Normal 80.0-100.0 [facility] Comment on above: Order Comment: Speci men Type: BLOOD SPECIMENOrdering Facility: [facility] Address: [address] [place] [address] Performed By: #### 5 7021-8 ####[facility] [id number] [place] [address] [place] Monocytes (Bld) [#/Vol] 0.33 10*3/uL Normal <0.87 [facility] Comment on above: Order Comment: Speci men Type: BLOOD SPECIMENOrdering Facility: [facility] Address: [address] [place] [address] Performed By: #### 5 7021-8 ####[facility] [id number] [place] [address] [place] Monocytes/100 WBC (Bld) 7.9 % Normal [facility] Comment on above: Order Comment: Speci men Type: BLOOD SPECIMENOrdering Facility: [facility] Address: [address] [place] [address] Performed By: #### 5 7021-8 ####[facility] [id number] [place] [address] [place] Neutrophils (Bld) [#/Vol] 2.32 10*3/uL Normal 1.45-7.50 [facility] Comment on above: Order Comment: Speci men Type: BLOOD SPECIMENOrdering Facility: [facility] Address: [address] [place] [address] Performed By: #### 5 7021-8 ####[facility] [id number] [place] [address] [place] Neutrophils/100 WBC (Bld) 55.6 % Normal [facility] Comment on above: Order Comment: Speci men Type: BLOOD SPECIMENOrdering Facility: [facility] Address: [address] [place] [address] Performed By: #### 5 7021-8 ####[facility] HOSPITALKIAN [id number] [place] [address] [place] Nucleated RBC (Bld) [#/Vol] 10*3/uL Normal <0.01 [facility] Comment on above: Order Comment: Speci men Type: BLOOD SPECIMENOrdering Facility: [facility] Address: [address] [place] [address] Performed By: #### 5 7021-8 ####[facility] [id number] [place] [address] [place] Nucleated RBC/100 WBC (Bld) [Ratio] 0.0 /100 WBC Normal [facility] Comment on above: Order Comment: Speci men Type: BLOOD SPECIMENOrdering Facility: [facility] Address: [address] [place] [address] Performed By: #### 5 7021-8 ####[facility] [id number] [place] [address] [place] Platelet mean volume (Bld) [Entitic vol] 9.6 fL Normal 9.0-12.7 [facility] Comment on above: Order Comment: Speci men Type: BLOOD SPECIMENOrdering Facility: [facility] Address: [address] [place] [address] Performed By: #### 5 7021-8 ####[facility] HOSPITALLI [id number] [place] [address] [place] Platelets (Bld) [#/Vol] 340 10*3/uL Normal 150-400 [facility] Comment on above: Order Comment: Speci men Type: BLOOD SPECIMENOrdering Facility: [facility] Address: [address] [place] [address] Performed By: #### 5 7021-8 ####[facility] HOSPITALNCLIA [id number] [place] [address] [place] RBC (Bld) [#/Vol] 3.86 10*6/uL Low 3.90-5.20 [facility] Comment on above: Order Comment: Speci men Type: BLOOD SPECIMENOrdering Facility: [facility] Address: [address] [place] [address] Performed By: #### 5 7021-8 ####[facility] [id number] [place] [address] [place] WBC (Bld) [#/Vol] 4.18 10*3/uL Normal 3.70-11.00 [facility] Comment on above: Order Comment: Speci men Type: BLOOD SPECIMENOrdering Facility: [facility] Address: [address] [place] [address] Performed By: #### 5 7021-8 ####[facility] HOSPITALLIA [id number] [place] [address] [place] CBC W Auto Differential pane l (Bld)on 05-16-2024 Basophils (Bld) [#/Vol] 0.07 10*3/uL [facility] Basophils/100 WBC (Bld) 1.3 % [facility] Differential cell count method Nom (Bld) Auto [facility] Eosinophils (Bld) [#/Vol] 0.06 10*3/uL [facility] Eosinophils/100 WBC (Bld) 1.1 % [facility] Erythrocyte distribution width (RBC) [Ratio] 17.2 % High 11.5 - 15.0 % [facility] Hematocrit (Bld) [Volume fraction] 32.9 % Low 36.0 - 46.0 % [facility] Hemoglobin (Bld) [Mass/Vol] 10.7 g/dL Low 11.5 - 15.5 g/dL [facility] Immature granulocytes (Bld) [#/Vol] [facility] Immature granulocytes/100 WBC (Bld) 0.4 % [facility] Interpretation and review of laboratory results Abnormal [facility] Lymphocytes (Bld) [#/Vol] 1.46 10*3/uL [facility] Lymphocytes/100 WBC (Bld) 27.2 % [facility] MCH (RBC) [Entitic mass] 27.3 pg 26.0 - 34.0 pg [facility] MCHC (RBC) [Mass/Vol] 32.5 g/dL 30.5 - 36.0 g/dL [facility] MCV (RBC) [Entitic vol] 83.9 fL 80.0 - 100.0 fL [facility] Monocytes (Bld) [#/Vol] 0.35 10*3/uL NINF [facility] Monocytes/100 WBC (Bld) 6.5 % [facility] Neutrophils (Bld) [#/Vol] 3.40 10*3/uL [facility] Neutrophils/100 WBC (Bld) 63.5 % [facility] Nucleated RBC (Bld) [#/Vol] NINF [facility] Nucleated RBC/100 WBC (Bld) [Ratio] 0.0 % /100 WBC [facility] Platelet mean volume (Bld) [Entitic vol] 9.8 fL 9.0 - 12.7 fL [facility] Platelets (Bld) [#/Vol] 290 10*3/uL [facility] RBC (Bld) [#/Vol] 3.92 10*6/uL 3.90 - 5.2 0 m/uL [facility] WBC (Bld) [#/Vol] 5.36 10*3/uL [facility] Basophils (Bld) [#/Vol] 0.07 10*3/uL Normal <0.11 [facility] Comment on above: Order Comment: Speci men Type: BLOOD SPECIMENOrdering Facility: [facility] Address: [address] [place] [address] Performed By: #### 5 7021-8 ####[facility] TIMO [facility]ICNely [id number] [place] [address] [place] Basophils/100 WBC (Bld) 1.3 % Normal [facility] Comment on above: Order Comment: Speci men Type: BLOOD SPECIMENOrdering Facility: [facility] Address: [address] [place] [address] Performed By: #### 5 7021-8 ####[facility] HOSPITALIESHALIA [id number] [place] [address] [place] Differential cell count method Nom (Bld) Auto Normal [facility] Comment on above: Order Comment: Speci men Type: BLOOD SPECIMENOrdering Facility: [facility] Address: [address] [place] [address] Performed By: #### 5 7021-8 ####[facility] HOSPITALNCLIA [id number] [place] [address] [place] Eosinophils (Bld) [#/Vol] 0.06 10*3/uL Normal <0.46 [facility] Comment on above: Order Comment: Speci men Type: BLOOD SPECIMENOrdering Facility: [facility] Address: [address] [place] [address] Performed By: #### 5 7021-8 ####[facility] HOSPITALNCLIA [id number] [place] [address] [place] Eosinophils/100 WBC (Bld) 1.1 % Normal [facility] Comment on above: Order Comment: Speci men Type: BLOOD SPECIMENOrdering Facility: [facility] Address: [address] [place] [address] Performed By: #### 5 7021-8 ####[facility] HOSPITALLIA [id number] [place] [address] [place] Erythrocyte distribution width (RBC) [Ratio] 17.2 % High 11.5-15.0 [facility] Comment on above: Order Comment: Speci men Type: BLOOD SPECIMENOrdering Facility: [facility] Address: [address] [place] [address] Performed By: #### 5 7021-8 ####[facility] HOSPITALNCLI [id number] [place] [address] [place] Hematocrit (Bld) [Volume fraction] 32.9 % Low 36.0-46.0 [facility] Comment on above: Order Comment: Speci men Type: BLOOD SPECIMENOrdering Facility: [facility] Address: [address] [place] [address] Performed By: #### 5 7021-8 ####[facility] COMM[facility] HOSPITALKEV [id number] [place] [address] [place] Hemoglobin (Bld) [Mass/Vol] 10.7 g/dL Low 11.5-15.5 [facility] Comment on above: Order Comment: Speci men Type: BLOOD SPECIMENOrdering Facility: [facility] Address: [address] [place] [address] Performed By: #### 5 7021-8 ####[facility] COMM[facility] HOSPITALKEV [id number] [place] [address] [place] Immature granulocytes (Bld) [#/Vol] 10*3/uL Normal <0.10 [facility] Comment on above: Order Comment: Speci men Type: BLOOD SPECIMENOrdering Facility: [facility] Address: [address] [place] [address] Performed By: #### 5 7021-8 ####[facility] COMM[facility] HOSPITALKEV [id number] [place] [address] [place] Immature granulocytes/100 WBC (Bld) 0.4 % Normal [facility] Comment on above: Order Comment: Speci men Type: BLOOD SPECIMENOrdering Facility: [facility] Address: [address] [place] [address] Performed By: #### 5 7021-8 ####[facility] HOSPITALNCLIA [id number] [place] [address] [place] Lymphocytes (Bld) [#/Vol] 1.46 10*3/uL Normal 1.00-4.00 [facility] Comment on above: Order Comment: Speci men Type: BLOOD SPECIMENOrdering Facility: [facility] Address: [address] [place] [address] Performed By: #### 5 7021-8 ####[facility] DEVYNMadeleineNCURI [id number] [place] [address] [place] Lymphocytes/100 WBC (Bld) 27.2 % Normal [facility] Comment on above: Order Comment: Speci men Type: BLOOD SPECIMENOrdering Facility: [facility] Address: [address] [place] [address] Performed By: #### 5 7021-8 ####[facility] HOSPITALNCURI [id number] [place] [address] [place] MCH (RBC) [Entitic mass] 27.3 pg Normal 26.0-34.0 [facility] Comment on above: Order Comment: Speci men Type: BLOOD SPECIMENOrdering Facility: [facility] Address: [address] [place] [address] Performed By: #### 5 7021-8 ####[facility] COMM[facility] HOSPITALNCA [id number] [place] [address] [place] MCHC (RBC) [Mass/Vol] 32.5 g/dL Normal 30.5-36.0 [facility] Comment on above: Order Comment: Speci men Type: BLOOD SPECIMENOrdering Facility: [facility] Address: [address] [place] [address] Performed By: #### 5 7021-8 ####[facility] HOSPITALNCLIA [id number] [place] [address] [place] [place] MCV (RBC) [Entitic vol] 83.9 fL Normal 80.0-100.0 [facility] Comment on above: Order Comment: Speci men Type: BLOOD SPECIMENOrdering Facility: [facility] Address: [address] [place] [address] Performed By: #### 5 7021-8 ####[facility] MILLTOWNCLIA [id number] [place] [address] [place] Monocytes (Bld) [#/Vol] 0.35 10*3/uL Normal <0.87 [facility] Comment on above: Order Comment: Speci men Type: BLOOD SPECIMENOrdering Facility: [facility] Address: [address] [place] [address] Performed By: #### 5 7021-8 ####[facility] CENTERWNCLIA [id number] [place] [address] [place] Monocytes/100 WBC (Bld) 6.5 % Normal [facility] Comment on above: Order Comment: Speci men Type: BLOOD SPECIMENOrdering Facility: [facility] Address: [address] [place] [address] Performed By: #### 5 7021-8 ####[facility] HOSPITALLIA [id number] [place] [address] [place] Neutrophils (Bld) [#/Vol] 3.40 10*3/uL Normal 1.45-7.50 [facility] Comment on above: Order Comment: Speci men Type: BLOOD SPECIMENOrdering Facility: [facility] Address: [address] [place] [address] Performed By: #### 5 7021-8 ####[facility] MILLWNCLIA [id number] [place] [address] [place] Neutrophils/100 WBC (Bld) 63.5 % Normal [facility] Comment on above: Order Comment: Speci men Type: BLOOD SPECIMENOrdering Facility: [facility] Address: [address] [place] [address] Performed By: #### 5 7021-8 ####[facility] HOSPITALNCLIA [id number] [place] [id number] [place] Nucleated RBC (Bld) [#/Vol] 10*3/uL Normal <0.01 [facility] Comment on above: Order Comment: Speci men Type: BLOOD SPECIMENOrdering Facility: [facility] Address: [address] [place] [address] Performed By: #### 5 7021-8 ####[facility] HOSPITALNCASH[facility] [id number] [place] [address] [place] Nucleated RBC/100 WBC (Bld) [Ratio] 0.0 /100 WBC Normal [facility] Comment on above: Order Comment: Speci men Type: BLOOD SPECIMENOrdering Facility: [facility] Address: [address] [place] [address] Performed By: #### 5 7021-8 ####[facility] HOSPITALNCASHLEY [facility] [id number] [place] [address] [place] Platelet mean volume (Bld) [Entitic vol] 9.8 fL Normal 9.0-12.7 [facility] Comment on above: Order Comment: Speci men Type: BLOOD SPECIMENOrdering Facility: [facility] Address: [address] [place] [address] Performed By: #### 5 7021-8 ####[facility] HOSPITALNCLIA [id number] [place] [address] [place] Platelets (Bld) [#/Vol] 290 10*3/uL Normal 150-400 [facility] Comment on above: Order Comment: Speci men Type: BLOOD SPECIMENOrdering Facility: [facility] Address: [address] [place] [address] Performed By: #### 5 7021-8 ####[facility] HOSPITALNCLIA [id number] [place] [address] [place] RBC (Bld) [#/Vol] 3.92 10*6/uL Normal 3.90-5.20 [facility] Comment on above: Order Comment: Speci men Type: BLOOD SPECIMENOrdering Facility: [facility] Address: [address] [place] [address] Performed By: #### 5 7021-8 ####[facility] HOSPITALNCLIA [id number] [place] [address] [place] WBC (Bld) [#/Vol] 5.36 10*3/uL Normal 3.70-11.00 [facility] Comment on above: Order Comment: Speci men Type: BLOOD SPECIMENOrdering Facility: [facility] Address: [address] [place] [address] Performed By: #### 5 7021-8 ####[facility] HOSPITALNCLIA [id number] [place] [address] [place] CBC W Auto Differential pane l (Bld)on 05-09-2024 Basophils (Bld) [#/Vol] 0.04 10*3/uL [facility] Basophils/100 WBC (Bld) 0.8 % [facility] Differential cell count method Nom (Bld) Auto [facility] Eosinophils (Bld) [#/Vol] 0.10 10*3/uL [facility] Eosinophils/100 WBC (Bld) 2.0 % [facility] Erythrocyte distribution width (RBC) [Ratio] 17.2 % High 11.5 - 15.0 % [facility] Hematocrit (Bld) [Volume fraction] 34.0 % Low 36.0 - 46.0 % [facility] Hemoglobin (Bld) [Mass/Vol] 11.0 g/dL Low 11.5 - 15.5 g/dL [facility] Immature granulocytes (Bld) [#/Vol] NINF [facility] Immature granulocytes/100 WBC (Bld) 0.4 % [facility] Interpretation and review of laboratory results Abnormal [facility] Lymphocytes (Bld) [#/Vol] 1.78 10*3/uL [facility] Lymphocytes/100 WBC (Bld) 34.9 % [facility] MCH (RBC) [Entitic mass] 27.2 pg 26.0 - 34.0 pg [facility] MCHC (RBC) [Mass/Vol] 32.4 g/dL 30.5 - 36.0 g/dL [facility] MCV (RBC) [Entitic vol] 84.2 fL 80.0 - 100.0 fL [facility] Monocytes (Bld) [#/Vol] 0.56 10*3/uL [facility]F [facility] Monocytes/100 WBC (Bld) 11.0 % [facility] Neutrophils (Bld) [#/Vol] 2.60 10*3/uL [facility] Neutrophils/100 WBC (Bld) 50.9 % [facility] Nucleated RBC (Bld) [#/Vol] NINF [facility] Nucleated RBC/100 WBC (Bld) [Ratio] 0.0 % /100 WBC [facility] Platelet mean volume (Bld) [Entitic vol] 9.3 fL 9.0 - 12.7 fL [facility] Platelets (Bld) [#/Vol] 318 10*3/uL [facility] RBC (Bld) [#/Vol] 4.04 10*6/uL 3.90 - 5.2 0 m/uL [facility] WBC (Bld) [#/Vol] 5.10 10*3/uL [facility] Basophils (Bld) [#/Vol] 0.04 10*3/uL Normal <0.11 [facility] Comment on above: Order Comment: Speci men Type: BLOOD SPECIMENOrdering Facility: [facility] Address: [address] [place] [address] Performed By: #### 5 7021-8 ####[facility] [id number] [place] [address] [place] Basophils/100 WBC (Bld) 0.8 % Normal [facility] Comment on above: Order Comment: Speci men Type: BLOOD SPECIMENOrdering Facility: [facility] Address: [address] [place] [address] Performed By: #### 5 7021-8 ####[facility] HOSPITALNCLI [id number] [place] [address] [place] Differential cell count method Nom (Bld) Auto Normal [facility] Comment on above: Order Comment: Speci men Type: BLOOD SPECIMENOrdering Facility: [facility] Address: [address] [place] [address] Performed By: #### 5 7021-8 ####[facility] [id number] [place] [address] [place] Eosinophils (Bld) [#/Vol] 0.10 10*3/uL Normal <0.46 [facility] Comment on above: Order Comment: Speci men Type: BLOOD SPECIMENOrdering Facility: [facility] Address: [address] [place] [address] Performed By: #### 5 7021-8 ####[facility] [id number] [place] [address] [place] Eosinophils/100 WBC (Bld) 2.0 % Normal [facility] Comment on above: Order Comment: Speci men Type: BLOOD SPECIMENOrdering Facility: [facility] Address: [address] [place] [address] Performed By: #### 5 7021-8 ####[facility] [id number] [place] [address] [place] Erythrocyte distribution width (RBC) [Ratio] 17.2 % High 11.5-15.0 [facility] Comment on above: Order Comment: Speci men Type: BLOOD SPECIMENOrdering Facility: [facility] Address: [address] [place] [address] Performed By: #### 5 7021-8 ####[facility] [id number] [place] [address] [place] Hematocrit (Bld) [Volume fraction] 34.0 % Low 36.0-46.0 [facility] Comment on above: Order Comment: Speci men Type: BLOOD SPECIMENOrdering Facility: [facility] Address: [address] [place] [address] Performed By: #### 5 7021-8 ####[facility] AUGIEIESHALIA [id number] [place] [address] [place] Hemoglobin (Bld) [Mass/Vol] 11.0 g/dL Low 11.5-15.5 [facility] Comment on above: Order Comment: Speci men Type: BLOOD SPECIMENOrdering Facility: [facility] Address: [address] [place] [address] Performed By: #### 5 7021-8 ####[facility] DEVYNWIESHALIA [id number] [place] [address] [place] Immature granulocytes (Bld) [#/Vol] 10*3/uL Normal <0.10 [facility] Comment on above: Order Comment: Speci men Type: BLOOD SPECIMENOrdering Facility: [facility] Address: [address] [place] [address] Performed By: #### 5 7021-8 ####[facility] HOSPITALIESHALIA [id number] [place] [address] [place] Immature granulocytes/100 WBC (Bld) 0.4 % Normal [facility] Comment on above: Order Comment: Speci men Type: BLOOD SPECIMENOrdering Facility: [facility] Address: [address] [place] [address] Performed By: #### 5 7021-8 ####[facility] DEVYNWNCLIA [id number] [place] [address] [place] Lymphocytes (Bld) [#/Vol] 1.78 10*3/uL Normal 1.00-4.00 [facility] Comment on above: Order Comment: Speci men Type: BLOOD SPECIMENOrdering Facility: [facility] Address: [address] [place] [address] Performed By: #### 5 7021-8 ####[facility] [id number] [place] [address] [place] Lymphocytes/100 WBC (Bld) 34.9 % Normal [facility] Comment on above: Order Comment: Speci men Type: BLOOD SPECIMENOrdering Facility: [facility] Address: [address] [place] [address] Performed By: #### 5 7021-8 ####[facility] [id number] [place] [address] [place] MCH (RBC) [Entitic mass] 27.2 pg Normal 26.0-34.0 [facility] Comment on above: Order Comment: Speci men Type: BLOOD SPECIMENOrdering Facility: [facility] Address: [address] [place] [address] Performed By: #### 5 7021-8 ####[facility] [id number] [place] [address] [place] MCHC (RBC) [Mass/Vol] 32.4 g/dL Normal 30.5-36.0 [facility] Comment on above: Order Comment: Speci men Type: BLOOD SPECIMENOrdering Facility: [facility] Address: [address] [place] [address] Performed By: #### 5 7021-8 ####[facility] [id number] [place] [address] [place] MCV (RBC) [Entitic vol] 84.2 fL Normal 80.0-100.0 [facility] Comment on above: Order Comment: Speci men Type: BLOOD SPECIMENOrdering Facility: [facility] Address: [address] [place] [address] Performed By: #### 5 7021-8 ####[facility] HOSPITALNCLIA [id number] [place] [address] [place] Monocytes (Bld) [#/Vol] 0.56 10*3/uL Normal <0.87 [facility] Comment on above: Order Comment: Speci men Type: BLOOD SPECIMENOrdering Facility: [facility] Address: [address] [place] [address] Performed By: #### 5 7021-8 ####[facility] [id number] [place] [address] [place] Monocytes/100 WBC (Bld) 11.0 % Normal [facility] Comment on above: Order Comment: Speci men Type: BLOOD SPECIMENOrdering Facility: [facility] Address: [address] [place] [address] Performed By: #### 5 7021-8 ####[facility] [id number] [place] [address] [place] Neutrophils (Bld) [#/Vol] 2.60 10*3/uL Normal 1.45-7.50 [facility] Comment on above: Order Comment: Speci men Type: BLOOD SPECIMENOrdering Facility: [facility] Address: [address] [place] [address] Performed By: #### 5 7021-8 ####[facility] [id number] [place] [address] [place] Neutrophils/100 WBC (Bld) 50.9 % Normal [facility] Comment on above: Order Comment: Speci men Type: BLOOD SPECIMENOrdering Facility: [facility] Address: [address] [place] [address] Performed By: #### 5 7021-8 ####[facility] [id number] [place] [address] [place] Nucleated RBC (Bld) [#/Vol] 10*3/uL Normal <0.01 [facility] Comment on above: Order Comment: Speci men Type: BLOOD SPECIMENOrdering Facility: [facility] Address: [address] [place] [address] Performed By: #### 5 7021-8 ####[facility] DEVYNMadeleineNCTERESAA [id number] [place] [address] [place] Nucleated RBC/100 WBC (Bld) [Ratio] 0.0 /100 WBC Normal [facility] Comment on above: Order Comment: Speci men Type: BLOOD SPECIMENOrdering Facility: [facility] Address: [address] [place] [address] Performed By: #### 5 7021-8 ####[facility] HOSPITALNCLIA [id number] [place] [address] [place] Platelet mean volume (Bld) [Entitic vol] 9.3 fL Normal 9.0-12.7 [facility] Comment on above: Order Comment: Speci men Type: BLOOD SPECIMENOrdering Facility: [facility] Address: [address] [place] [address] Performed By: #### 5 7021-8 ####[facility] HOSPITALNCA [id number] [place] [address] [place] Platelets (Bld) [#/Vol] 318 10*3/uL Normal 150-400 [facility] Comment on above: Order Comment: Speci men Type: BLOOD SPECIMENOrdering Facility: [facility] Address: [address] [place] [address] Performed By: #### 5 7021-8 ####[facility] DEVYNBEARDENNCLIA [id number] [place] [address] [place] RBC (Bld) [#/Vol] 4.04 10*6/uL Normal 3.90-5.20 [facility] Comment on above: Order Comment: Speci men Type: BLOOD SPECIMENOrdering Facility: [facility] Address: [address] [place] [address] Performed By: #### 5 7021-8 ####[facility] HOSPITALLIA [id number] [place] [address] [place] WBC (Bld) [#/Vol] 5.10 10*3/uL Normal 3.70-11.00 [facility] Comment on above: Order Comment: Speci men Type: BLOOD SPECIMENOrdering Facility: [facility] Address: [address] [place] [address] Performed By: #### 5 7021-8 ####[facility] [id number] [place] [address] [place] CNOVSPon 05-09-2024 CNOVSP Normal [facility] Cancer Ag125 SerPl-aCncon Cancer Ag 125 Qn 70 [arb'U]/mL High <39 [facility] Comment on above: Order Comment: Speci men Type: BLOOD SPECIMENOrdering Facility: [facility] Address: [address] [place] [address] Result Comment: CA 1 25 test methodology used is the Electrochemiluminescence Immunoassay by [employer]. Results obtained with different methods or kits cannot be used interchangeably.The reference interval is based on the 95th percentile of 240 apparently healthy premenopausal and postmenopausal women. At a cutoff value of 65 U/mL, the test sensitivity to distinguish ovarian carcinoma (FIGO stage I to IV) versus benign gynecological disease is 79%, with a specificity of 82%.Reference: Cancer Antigen 125 (CA 125 II) [package insert V 1.0 [place]]. [employer] [facility], [place], [place] (July 2015) Performed By: #### 1 0334-1 ####[facility] LABCLIA [id number] [place] [address] [place] Comprehensive metabolic 2000 panelOrdered By: Marium Vu on 05-09-2024 Albumin [Mass/Vol] 4.1 g/dL 3.9 - 4.9 g/dL [facility] ALP [Catalytic activity/Vol] 65 U/L 34 - 123 U/L [facility] ALT [Catalytic activity/Vol] 24 U/L 7 - 38 U/L [facility] Anion gap [Moles/Vol] 9 mmol/L 8 - 15 mmol/L [facility] AST [Catalytic activity/Vol] 24 U/L 13 - 35 U/L [facility] Bilirubin [Mass/Vol] 0.2 mg/dL 0.2 - 1 .3 mg/dL [facility] Calcium [Mass/Vol] 9.1 mg/dL 8.5 - 10. 2 mg/dL [facility] Chloride [Moles/Vol] 103 mmol/L 98 - 10 7 mmol/L [facility] CO2 [Moles/Vol] 26 mmol/L 22 - 30 mmol/L [facility] Creatinine [Mass/Vol] 0.78 mg/dL 0.58 - 0.96 mg/dL [facility] GFR/1.73 sq M.predicted among non-blacks MDRD (S/P/Bld) [Vol rate/Area] 88 mL/min/{1.73_m2} - PINF [facility] Comment on above: Estimated Glomerular Filtration Rate (eGFR) is calculated using the 2020 CKD-EPI creatinine equation. This equation utilizes serum creatinine, sex, and age as parameters. The creatinine assay has traceable calibration to isotope dilution-mass spectrometry. Refer to KDIGO guidelines for clinical interpretation. In patients with unstable renal function, e.g. those with acute kidney injury, the eGFR may not accurately reflect actual GFR. Glucose [Mass/Vol] 140 mg/dL High 74 - 99 mg/dL [facility] Comment on above: The [place] Diabete s Association (ADA) provides guidance for cutoff values for fasting glucose and random glucose. The ADA defines fasting as no caloric intake for at least 8 hours. Fasting plasma glucose results between 100 to 125 mg/dL indicate increased risk for diabetes (prediabetes). Fasting plasma glucose results greater than or equal to 126 mg/dL meet the criteria for diagnosis of diabetes. In the absence of unequivocal hyperglycemia, results should be confirmed by repeat testing. In a patient with classic symptoms of hyperglycemia or hyperglycemic crisis, random plasma glucose results greater than or equal to 200 mg/dL meet the criteria for diagnosis of diabetes. Reference: Standards of Medical Care in Diabetes 2016, [place] Diabetes Association. Diabetes Care. 2016.39(Suppl 1). Interpretation and review of laboratory results Abnormal [facility] Potassium [Moles/Vol] 4.3 mmol/L 3.7 - 5.1 mmol/L [facility] Protein [Mass/Vol] 6.6 g/dL 6.3 - 8.0 g/dL [facility] Sodium [Moles/Vol] 138 mmol/L 136 - 144 mmol/L [facility] Urea nitrogen [Mass/Vol] 18 mg/dL 7 - 21 mg/dL [facility] Comprehensive metabolic 2000 panelon 05-09-2024 Albumin [Mass/Vol] 4.1 g/dL Normal 3.9-4.9 [facility] Comment on above: Order Comment: Speci men Type: BLOOD SPECIMENOrdering Facility: [facility] Address: [address] [place] [address] Performed By: #### 2 4323-8, ####[facility] HOSPITALKIANA [id number] [place] [address] [place] ALP [Catalytic activity/Vol] 65 U/L Normal 34-123 [facility] Comment on above: Order Comment: Speci men Type: BLOOD SPECIMENOrdering Facility: [facility] Address: [address] [place] [address] Performed By: #### 2 4323-8, ####[facility] COMM[facility] HOSPITALKIANA [id number] [place] [address] [place] ALT [Catalytic activity/Vol] 24 U/L Normal 7-38 [facility] Comment on above: Order Comment: Speci men Type: BLOOD SPECIMENOrdering Facility: [facility] Address: [address] [place] [address] Performed By: #### 2 4323-8, ####[facility] HOSPITALLIA [id number] [place] [address] [place] Anion gap [Moles/Vol] 9 mmol/L Normal 8-15 [facility] Comment on above: Order Comment: Speci men Type: BLOOD SPECIMENOrdering Facility: [facility] Address: [address] [place] [address] Performed By: #### 2 4323-8, ####[facility] MILLTOWNCLIA [id number] [place] [address] [place] AST [Catalytic activity/Vol] 24 U/L Normal 13-35 [facility] Comment on above: Order Comment: Speci men Type: BLOOD SPECIMENOrdering Facility: [facility] Address: [address] [place] [address] Performed By: #### 2 4323-8, ####[facility] MILLWNCLIA [id number] [place] [address] [place] Bilirubin [Mass/Vol] 0.2 mg/dL Normal 0.2-1.3 [facility] Comment on above: Order Comment: Speci men Type: BLOOD SPECIMENOrdering Facility: [facility] Address: [address] [place] [address] Performed By: #### 2 4323-8, ####[facility] CENTERWNCLIA [id number] [place] [address] [place] Calcium [Mass/Vol] 9.1 mg/dL Normal 8.5-10.2 [facility] Comment on above: Order Comment: Speci men Type: BLOOD SPECIMENOrdering Facility: [facility] Address: [address] [place] [address] Performed By: #### 2 4323-8, ####[facility] CENTERWNCLIA [id number] [place] [address] [place] Chloride [Moles/Vol] 103 mmol/L Normal 98-107 [facility] Comment on above: Order Comment: Speci men Type: BLOOD SPECIMENOrdering Facility: [facility] Address: [address] [place] [address] Performed By: #### 2 4323-8, ####[facility] MILLWNCLIA [id number] [place] [address] [place] CO2 [Moles/Vol] 26 mmol/L Normal 22-30 [facility] Comment on above: Order Comment: Tessie cox Type: BLOOD SPECIMENOrdering Facility: [facility] Address: [address] [place] [address] Performed By: #### 2 4323-8, ####[facility] [id number] [place] [address] [place] Creatinine [Mass/Vol] 0.78 mg/dL Normal 0.58-0.96 [facility] Comment on above: Order Comment: Cheyennei men Type: BLOOD SPECIMENOrdering Facility: [facility] Address: [address] [place] [address] Performed By: #### 2 4323-8, ####[facility] HOSPITALNCLINely [id number] [place] [address] [place] Creatinine and Glomerular filtration rate.predicted panel (S/P/Bld) 88 mL/min/1.73m??? Normal >=60 [facility] Comment on above: Order Comment: Tessie cox Type: BLOOD SPECIMENOrdering Facility: [facility] Address: [address] [place] [address] Result Comment: Mariana mated Glomerular Filtration Rate (eGFR) is calculated using the 2020 CKD-EPI creatinine equation. This equation utilizes serum creatinine, sex, and age as parameters. The creatinine assay has traceable calibration to isotope dilution-mass spectrometry. Refer to KDIGO guidelines for clinical interpretation. In patients with unstable renal function, e.g. those with acute kidney injury, the eGFR may not accurately reflect actual GFR. Performed By: #### 2 4323-8, ####[facility] HOSPITALNCLIA [id number] [place] [address] [place] Glucose [Mass/Vol] 140 mg/dL High 74-99 [facility] Comment on above: Order Comment: Speci men Type: BLOOD SPECIMENOrdering Facility: [facility] Address: [address] [place], [place] [id number] Result Comment: The [place] Diabetes Association (ADA) provides guidance for cutoff values for fasting glucose and random glucose. The ADA defines fasting as no caloric intake for at least 8 hours. Fasting plasma glucose results between 100 to 125 mg/dL indicate increased risk for diabetes (prediabetes).Fasting plasma glucose results greater than or equal to 126 mg/dL meet the criteria for diagnosis of diabetes. In the absence of unequivocal hyperglycemia, results should be confirmed by repeat testing. In a patient with classic symptoms of hyperglycemia or hyperglycemic crisis, random plasma glucose results greater than or equal to 200 mg/dL meet the criteria for diagnosis of diabetes.Reference: Standards of Medical Care in Diabetes 2016, [place] Diabetes Association. Diabetes Care. 2016.39(Suppl 1). Performed By: #### 2 4323-8, 36970-0 ####[facility] COMM[facility] HOSPITALKEV [id number] [place] [address] [place] Potassium [Moles/Vol] 4.3 mmol/L Normal 3.7-5.1 [facility] Comment on above: Order Comment: Tessie cox Type: BLOOD SPECIMENOrdering Facility: [facility] Address: [address] [place] [address] Performed By: #### 2 4323-8, 97209-9 ####[facility] CENTERWKEV [id number] [place] [id number] [place] Protein [Mass/Vol] 6.6 g/dL Normal 6.3-8.0 [facility] Comment on above: Order Comment: Tessie cox Type: BLOOD SPECIMENOrdering Facility: [facility] Address: [address] [place], [place] [address] Performed By: #### 2 4323-8, ####[facility] CENTERWIESHALIA [id number] [place] [id number] [place] Sodium [Moles/Vol] 138 mmol/L Normal 136-144 [facility] Comment on above: Order Comment: Speci men Type: BLOOD SPECIMENOrdering Facility: [facility] Address: [address] [place], [place] [address] Performed By: #### 2 4323-8, ####[facility] COMMUNITY HOSPITALNCLI [id number] [place] [address] [place] Urea nitrogen [Mass/Vol] 18 mg/dL Normal 7-21 [facility] Comment on above: Order Comment: Speci men Type: BLOOD SPECIMENOrdering Facility: [facility] Address: [address] [place] [address] Performed By: #### 2 4323-8, ####[facility] [id number] [place] [address] [place] MAGNESIUMon 05-09-2024 Magnesium [Mass/Vol] 1.8 mg/dL 1.7 - 2 .3 mg/dL [facility] Magnesium SerPl-mCncon 05-09 Magnesium [Mass/Vol] 1.8 mg/dL Normal 1.7-2.3 [facility] Comment on above: Order Comment: Speci men Type: BLOOD SPECIMENOrdering Facility: [facility] Address: [address] [place] [address] Performed By: #### 2 4323-8, ####[facility] [id number] [place] [address] [place] Magnesium [Mass/Vol]on 05-09 Interpretation and review of laboratory results Normal [facility] CBC W Auto Differential pane l (Bld)on 04-26-2024 Basophils (Bld) [#/Vol] 0.04 10*3/uL [facility] Basophils/100 WBC (Bld) 0.9 % [facility] Differential cell count method Nom (Bld) Auto [facility] Eosinophils (Bld) [#/Vol] 0.06 10*3/uL [facility] Eosinophils/100 WBC (Bld) 1.3 % [facility] Erythrocyte distribution width (RBC) [Ratio] 16.7 % High 11.5 - 15.0 % [facility] Hematocrit (Bld) [Volume fraction] 31.7 % Low 36.0 - 46.0 % [facility] Hemoglobin (Bld) [Mass/Vol] 10.4 g/dL Low 11.5 - 15.5 g/dL [facility] Immature granulocytes (Bld) [#/Vol] [facility] Immature granulocytes/100 WBC (Bld) 0.4 % [facility] Interpretation and review of laboratory results Abnormal [facility] Lymphocytes (Bld) [#/Vol] 1.45 10*3/uL [facility] Lymphocytes/100 WBC (Bld) 32.2 % [facility] MCH (RBC) [Entitic mass] 27.7 pg 26.0 - 34.0 pg [facility] MCHC (RBC) [Mass/Vol] 32.8 g/dL 30.5 - 36.0 g/dL [facility] MCV (RBC) [Entitic vol] 84.3 fL 80.0 - 100.0 fL [facility] Monocytes (Bld) [#/Vol] 0.32 10*3/uL [facility] Monocytes/100 WBC (Bld) 7.1 % [facility] Neutrophils (Bld) [#/Vol] 2.61 10*3/uL [facility] Neutrophils/100 WBC (Bld) 58.1 % [facility] Nucleated RBC (Bld) [#/Vol] [facility] Nucleated RBC/100 WBC (Bld) [Ratio] 0.0 % /100 WBC [facility] Platelet mean volume (Bld) [Entitic vol] 9.2 fL 9.0 - 12.7 fL [facility] Platelets (Bld) [#/Vol] 296 10*3/uL [facility] RBC (Bld) [#/Vol] 3.76 10*6/uL Low 3.90 - 5.2 0 m/uL [facility] WBC (Bld) [#/Vol] 4.50 10*3/uL [facility] Basophils (Bld) [#/Vol] 0.04 10*3/uL Normal <0.11 [facility] Comment on above: Order Comment: Speci men Type: BLOOD SPECIMENOrdering Facility: [facility] Address: [address] [place] [address] Performed By: #### 5 7021-8 ####[facility] DEVYNTOWNCLIA [id number] [place] [address] [place] Basophils/100 WBC (Bld) 0.9 % Normal [facility] Comment on above: Order Comment: Speci men Type: BLOOD SPECIMENOrdering Facility: [facility] Address: [address] [place] [address] Performed By: #### 5 7021-8 ####[facility] MILLWNCLIA [id number] [place] [address] [place] Differential cell count method Nom (Bld) Auto Normal [facility] Comment on above: Order Comment: Speci men Type: BLOOD SPECIMENOrdering Facility: [facility] Address: [address] [place] [address] Performed By: #### 5 7021-8 ####[facility] CENTERWNCLIA [id number] [place] [address] [place] Eosinophils (Bld) [#/Vol] 0.06 10*3/uL Normal <0.46 [facility] Comment on above: Order Comment: Speci men Type: BLOOD SPECIMENOrdering Facility: [facility] Address: [address] [place] [address] Performed By: #### 5 7021-8 ####[facility] MILLTOWNCLIA [id number] [place] [address] [place] Eosinophils/100 WBC (Bld) 1.3 % Normal [facility] Comment on above: Order Comment: Speci men Type: BLOOD SPECIMENOrdering Facility: [facility] Address: [address] [place] [address] Performed By: #### 5 7021-8 ####[facility] CARILION CLINICNely [id number] [place] [address] [place] Erythrocyte distribution width (RBC) [Ratio] 16.7 % High 11.5-15.0 [facility] Comment on above: Order Comment: Speci men Type: BLOOD SPECIMENOrdering Facility: [facility] Address: [address] [place] [address] Performed By: #### 5 7021-8 ####[facility] [id number] [place] [address] [place] Hematocrit (Bld) [Volume fraction] 31.7 % Low 36.0-46.0 [facility] Comment on above: Order Comment: Speci men Type: BLOOD SPECIMENOrdering Facility: [facility] Address: [address] [place] [address] Performed By: #### 5 7021-8 ####[facility] [id number] [place] [address] [place] Hemoglobin (Bld) [Mass/Vol] 10.4 g/dL Low 11.5-15.5 [facility] Comment on above: Order Comment: Speci men Type: BLOOD SPECIMENOrdering Facility: [facility] Address: [address] [place] [address] Performed By: #### 5 7021-8 ####[facility] HOSPITALTERESA [id number] [place] [address] [place] Immature granulocytes (Bld) [#/Vol] 10*3/uL Normal <0.10 [facility] Comment on above: Order Comment: Speci men Type: BLOOD SPECIMENOrdering Facility: [facility] Address: [address] [place] [address] Performed By: #### 5 7021-8 ####[facility] HOSPITALNCLIA [id number] [place] [address] [place] Immature granulocytes/100 WBC (Bld) 0.4 % Normal [facility] Comment on above: Order Comment: Speci men Type: BLOOD SPECIMENOrdering Facility: [facility] Address: [address] [place] [address] Performed By: #### 5 7021-8 ####[facility] [id number] [place] [address] [place] Lymphocytes (Bld) [#/Vol] 1.45 10*3/uL Normal 1.00-4.00 [facility] Comment on above: Order Comment: Speci men Type: BLOOD SPECIMENOrdering Facility: [facility] Address: [address] [place] [address] Performed By: #### 5 7021-8 ####[facility] [id number] [place] [address] [place] Lymphocytes/100 WBC (Bld) 32.2 % Normal [facility] Comment on above: Order Comment: Speci men Type: BLOOD SPECIMENOrdering Facility: [facility] Address: [address] [place] [address] Performed By: #### 5 7021-8 ####[facility] [id number] [place] [address] [place] MCH (RBC) [Entitic mass] 27.7 pg Normal 26.0-34.0 [facility] Comment on above: Order Comment: Speci men Type: BLOOD SPECIMENOrdering Facility: [facility] Address: [address] [place] [address] Performed By: #### 5 7021-8 ####[facility] [id number] [place] [address] [place] MCHC (RBC) [Mass/Vol] 32.8 g/dL Normal 30.5-36.0 [facility] Comment on above: Order Comment: Speci men Type: BLOOD SPECIMENOrdering Facility: [facility] Address: [address] [place] [address] Performed By: #### 5 7021-8 ####[facility] DEVYNBEARDENNCURI [id number] [place] [address] [place] [facility] MCV (RBC) [Entitic vol] 84.3 fL Normal 80.0-100.0 [facility] Comment on above: Order Comment: Speci men Type: BLOOD SPECIMENOrdering Facility: [facility] Address: [address] [place] [address] Performed By: #### 5 7021-8 ####[facility] COMMUN[facility] HOSPITALNCNely [id number] [place] [address] [place] Monocytes (Bld) [#/Vol] 0.32 10*3/uL Normal <0.87 [facility] Comment on above: Order Comment: Speci men Type: BLOOD SPECIMENOrdering Facility: [facility] Address: [address] [place] [address] Performed By: #### 5 7021-8 ####[facility] COMMUNITY HOSPITALNCA [id number] [place] [address] [place] Monocytes/100 WBC (Bld) 7.1 % Normal [facility] Comment on above: Order Comment: Speci men Type: BLOOD SPECIMENOrdering Facility: [facility] Address: [address] [place] [address] Performed By: #### 5 7021-8 ####[facility] HOSPITALNCLIA [id number] [place] [address] [place] Neutrophils (Bld) [#/Vol] 2.61 10*3/uL Normal 1.45-7.50 [facility] Comment on above: Order Comment: Speci men Type: BLOOD SPECIMENOrdering Facility: [facility] Address: [address] [place] [address] Performed By: #### 5 7021-8 ####[facility]CL[facility] HOSPITALLIA [id number] [place] [address] [place] Neutrophils/100 WBC (Bld) 58.1 % Normal [facility] Comment on above: Order Comment: Speci men Type: BLOOD SPECIMENOrdering Facility: [facility] Address: [address] [place] [address] Performed By: #### 5 7021-8 ####[facility] DEVYNBEARDENKEV [id number] [place] [address] [place] Nucleated RBC (Bld) [#/Vol] 10*3/uL Normal <0.01 [facility] Comment on above: Order Comment: Speci men Type: BLOOD SPECIMENOrdering Facility: [facility] Address: [address] [place] [address] Performed By: #### 5 7021-8 ####[facility] [id number] [place] [address] [place] Nucleated RBC/100 WBC (Bld) [Ratio] 0.0 /100 WBC Normal [facility] Comment on above: Order Comment: Speci men Type: BLOOD SPECIMENOrdering Facility: [facility] Address: [address] [place] [address] Performed By: #### 5 7021-8 ####[facility] HOSPITALURI [id number] [place] [address] [place] Platelet mean volume (Bld) [Entitic vol] 9.2 fL Normal 9.0-12.7 [facility] Comment on above: Order Comment: Speci men Type: BLOOD SPECIMENOrdering Facility: [facility] Address: [address] [place] [address] Performed By: #### 5 7021-8 ####[facility] HOSPITALNCLIA [id number] [place] [address] [place] Platelets (Bld) [#/Vol] 296 10*3/uL Normal 150-400 [facility] Comment on above: Order Comment: Speci men Type: BLOOD SPECIMENOrdering Facility: [facility] Address: [address] [place] [address] Performed By: #### 5 7021-8 ####[facility] HOSPITALNCLIA [id number] [place] [address] [place] RBC (Bld) [#/Vol] 3.76 10*6/uL Low 3.90-5.20 [facility] Comment on above: Order Comment: Speci men Type: BLOOD SPECIMENOrdering Facility: [facility] Address: [address] [place] [address] Performed By: #### 5 7021-8 ####[facility] COMM[facility] HOSPITALNCA [id number] [place] [address] [place] WBC (Bld) [#/Vol] 4.50 10*3/uL Normal 3.70-11.00 [facility] Comment on above: Order Comment: Speci men Type: BLOOD SPECIMENOrdering Facility: [facility] Address: [address] [place] [address] Performed By: #### 5 7021-8 ####[facility] HOSPITALNCLIA [id number] [place] [address] [place] CBC W Auto Differential pane l (Bld)on 04-19-2024 Basophils (Bld) [#/Vol] 0.03 10*3/uL [facility]F [facility] Basophils/100 WBC (Bld) 0.7 % [facility] Differential cell count method Nom (Bld) Auto [facility] Eosinophils (Bld) [#/Vol] 0.08 10*3/uL [facility]ENTERF [facility] Eosinophils/100 WBC (Bld) 1.8 % [facility] Erythrocyte distribution width (RBC) [Ratio] 16.5 % High 11.5 - 15.0 % [facility] Hematocrit (Bld) [Volume fraction] 32.0 % Low 36.0 - 46.0 % [facility] Hemoglobin (Bld) [Mass/Vol] 10.4 g/dL Low 11.5 - 15.5 g/dL [facility] Immature granulocytes (Bld) [#/Vol] NINF [facility] Immature granulocytes/100 WBC (Bld) 0.2 % [facility] Interpretation and review of laboratory results Abnormal [facility] Lymphocytes (Bld) [#/Vol] 1.53 10*3/uL [facility] Lymphocytes/100 WBC (Bld) 34.2 % [facility] MCH (RBC) [Entitic mass] 27.4 pg 26.0 - 34.0 pg [facility] MCHC (RBC) [Mass/Vol] 32.5 g/dL 30.5 - 36.0 g/dL [facility] MCV (RBC) [Entitic vol] 84.4 fL 80.0 - 100.0 fL [facility] Monocytes (Bld) [#/Vol] 0.43 10*3/uL [facility] Monocytes/100 WBC (Bld) 9.6 % [facility] Neutrophils (Bld) [#/Vol] 2.39 10*3/uL [facility] Neutrophils/100 WBC (Bld) 53.5 % [facility] Nucleated RBC (Bld) [#/Vol] NINF [facility] Nucleated RBC/100 WBC (Bld) [Ratio] 0.0 % /100 WBC [facility] Platelet mean volume (Bld) [Entitic vol] 9.4 fL 9.0 - 12.7 fL [facility] Platelets (Bld) [#/Vol] 289 10*3/uL [facility] RBC (Bld) [#/Vol] 3.79 10*6/uL Low 3.90 - 5.2 0 m/uL [facility] WBC (Bld) [#/Vol] 4.47 10*3/uL [facility] Basophils (Bld) [#/Vol] 0.03 10*3/uL Normal <0.11 [facility] Comment on above: Order Comment: Speci men Type: BLOOD SPECIMENOrdering Facility: [facility] Address: [address] [place] [address] Performed By: #### 5 7021-8 ####[facility] TIMO SY [id number] [place] [address] [place] Basophils/100 WBC (Bld) 0.7 % Normal [facility] Comment on above: Order Comment: Speci men Type: BLOOD SPECIMENOrdering Facility: [facility] Address: [address] [place] [address] Performed By: #### 5 7021-8 ####[facility] [id number] [place] [address] [place] Differential cell count method Nom (Bld) Auto Normal [facility] Comment on above: Order Comment: Speci men Type: BLOOD SPECIMENOrdering Facility: [facility] Address: [address] [place] [address] Performed By: #### 5 7021-8 ####[facility] HOSPITALNCASH[facility] [id number] [place] [address] [place] Eosinophils (Bld) [#/Vol] 0.08 10*3/uL Normal <0.46 [facility] Comment on above: Order Comment: Speci men Type: BLOOD SPECIMENOrdering Facility: [facility] Address: [address] [place] [address] Performed By: #### 5 7021-8 ####[facility] [id number] [place] [address] [place] Eosinophils/100 WBC (Bld) 1.8 % Normal [facility] Comment on above: Order Comment: Speci men Type: BLOOD SPECIMENOrdering Facility: [facility] Address: [address] [place] [address] Performed By: #### 5 7021-8 ####[facility] HOSPITALNCLIA [id number] [place] [address] [place] Erythrocyte distribution width (RBC) [Ratio] 16.5 % High 11.5-15.0 [facility] Comment on above: Order Comment: Speci men Type: BLOOD SPECIMENOrdering Facility: [facility] Address: [address] [place] [address] Performed By: #### 5 7021-8 ####[facility] DEVYNBEARDENKEV [id number] [place] [address] [place] Hematocrit (Bld) [Volume fraction] 32.0 % Low 36.0-46.0 [facility] Comment on above: Order Comment: Speci men Type: BLOOD SPECIMENOrdering Facility: [facility] Address: [address] [place] [address] Performed By: #### 5 7021-8 ####[facility] HOSPITALNCASH[facility] [id number] [place] [address] [place] Hemoglobin (Bld) [Mass/Vol] 10.4 g/dL Low 11.5-15.5 [facility] Comment on above: Order Comment: Speci men Type: BLOOD SPECIMENOrdering Facility: [facility] Address: [address] [place] [address] Performed By: #### 5 7021-8 ####[facility] [id number] [place] [address] [place] Immature granulocytes (Bld) [#/Vol] 10*3/uL Normal <0.10 [facility] Comment on above: Order Comment: Speci men Type: BLOOD SPECIMENOrdering Facility: [facility] Address: [address] [place] [address] Performed By: #### 5 7021-8 ####[facility]STITUTEA [id number] [place] [address] [place] Immature granulocytes/100 WBC (Bld) 0.2 % Normal [facility] Comment on above: Order Comment: Speci men Type: BLOOD SPECIMENOrdering Facility: [facility] Address: [address] [place] [address] Performed By: #### 5 7021-8 ####[facility] MILLWNCLIA [id number] [place] [address] [place] Lymphocytes (Bld) [#/Vol] 1.53 10*3/uL Normal 1.00-4.00 [facility] Comment on above: Order Comment: Speci men Type: BLOOD SPECIMENOrdering Facility: [facility] Address: [address] [place] [address] Performed By: #### 5 7021-8 ####[facility] HOSPITALLIA [id number] [place] [address] [place] Lymphocytes/100 WBC (Bld) 34.2 % Normal [facility] Comment on above: Order Comment: Speci men Type: BLOOD SPECIMENOrdering Facility: [facility] Address: [address] [place] [address] Performed By: #### 5 7021-8 ####[facility]STITUTEA [id number] [place] [address] [place] MCH (RBC) [Entitic mass] 27.4 pg Normal 26.0-34.0 [facility] Comment on above: Order Comment: Speci men Type: BLOOD SPECIMENOrdering Facility: [facility] Address: [address] [place] [address] Performed By: #### 5 7021-8 ####[facility] HOSPITALLIA [id number] [place] [address] [place] MCHC (RBC) [Mass/Vol] 32.5 g/dL Normal 30.5-36.0 [facility] Comment on above: Order Comment: Speci men Type: BLOOD SPECIMENOrdering Facility: [facility] Address: [address] [place] [address] Performed By: #### 5 7021-8 ####[facility] HOSPITALNCLIA [id number] [place] [address] [place] MCV (RBC) [Entitic vol] 84.4 fL Normal 80.0-100.0 [facility] Comment on above: Order Comment: Speci men Type: BLOOD SPECIMENOrdering Facility: [facility] Address: [address] [place] [address] Performed By: #### 5 7021-8 ####[facility] [id number] [place] [address] [place] Monocytes (Bld) [#/Vol] 0.43 10*3/uL Normal <0.87 [facility] Comment on above: Order Comment: Speci men Type: BLOOD SPECIMENOrdering Facility: [facility] Address: [address] [place] [address] Performed By: #### 5 7021-8 ####[facility] [id number] [place] [address] [place] Monocytes/100 WBC (Bld) 9.6 % Normal [facility] Comment on above: Order Comment: Speci men Type: BLOOD SPECIMENOrdering Facility: [facility] Address: [address] [place] [address] Performed By: #### 5 7021-8 ####[facility] [id number] [place] [address] [place] Neutrophils (Bld) [#/Vol] 2.39 10*3/uL Normal 1.45-7.50 [facility] Comment on above: Order Comment: Speci men Type: BLOOD SPECIMENOrdering Facility: [facility] Address: [address] [place] [address] Performed By: #### 5 7021-8 ####[facility] [id number] [place] [address] [place] Neutrophils/100 WBC (Bld) 53.5 % Normal [facility] Comment on above: Order Comment: Speci men Type: BLOOD SPECIMENOrdering Facility: [facility] Address: [address] [place] [address] Performed By: #### 5 7021-8 ####[facility] HOSPITALKIAN [id number] [place] [address] [place] Nucleated RBC (Bld) [#/Vol] 10*3/uL Normal <0.01 [facility] Comment on above: Order Comment: Speci men Type: BLOOD SPECIMENOrdering Facility: [facility] Address: [address] [place] [address] Performed By: #### 5 7021-8 ####[facility] [id number] [place] [address] [place] Nucleated RBC/100 WBC (Bld) [Ratio] 0.0 /100 WBC Normal [facility] Comment on above: Order Comment: Speci men Type: BLOOD SPECIMENOrdering Facility: [facility] Address: [address] [place] [address] Performed By: #### 5 7021-8 ####[facility] [id number] [place] [address] [place] Platelet mean volume (Bld) [Entitic vol] 9.4 fL Normal 9.0-12.7 [facility] Comment on above: Order Comment: Speci men Type: BLOOD SPECIMENOrdering Facility: [facility] Address: [address] [place] [address] Performed By: #### 5 7021-8 ####[facility] HOSPITALLI [id number] [place] [address] [place] Platelets (Bld) [#/Vol] 289 10*3/uL Normal 150-400 [facility] Comment on above: Order Comment: Speci men Type: BLOOD SPECIMENOrdering Facility: [facility] Address: [address] [place] [address] Performed By: #### 5 7021-8 ####[facility] HOSPITALNCLIA [id number] [place] [address] [place] RBC (Bld) [#/Vol] 3.79 10*6/uL Low 3.90-5.20 [facility] Comment on above: Order Comment: Speci men Type: BLOOD SPECIMENOrdering Facility: [facility] Address: [address] [place] [address] Performed By: #### 5 7021-8 ####[facility] COMM[facility] HOSPITALNCA [id number] [place] [address] [place] WBC (Bld) [#/Vol] 4.47 10*3/uL Normal 3.70-11.00 [facility] Comment on above: Order Comment: Speci men Type: BLOOD SPECIMENOrdering Facility: [facility] Address: [address] [place] [address] Performed By: #### 5 7021-8 ####[facility] HOSPITALNCLIA [id number] [place] [address] [place] Cancer Ag125 SerPl-aCncon Cancer Ag 125 Qn 43 [arb'U]/mL High <39 [facility] Comment on above: Order Comment: Speci men Type: BLOOD SPECIMENOrdering Facility: [facility] Address: [address] [place] [address] Result Comment: CA 1 25 test methodology used is the Electrochemiluminescence Immunoassay by [employer]. Results obtained with different methods or kits cannot be used interchangeably.The reference interval is based on the 95th percentile of 240 apparently healthy premenopausal and postmenopausal women. At a cutoff value of 65 U/mL, the test sensitivity to distinguish ovarian carcinoma (FIGO stage I to IV) versus benign gynecological disease is 79%, with a specificity of 82%.Reference: Cancer Antigen 125 (CA 125 II) [package insert V 1.0 Citizen [place]]. [employer], [place], [place] (July 2015) Performed By: #### 1 0334-1 ####[facility] LABCLIA [id number] [place] [address] [place] Comprehensive metabolic 2000 panelOrdered By: Marium Vu on 04-19-2024 Albumin [Mass/Vol] 3.9 g/dL 3.9 - 4.9 g/dL [facility] ALP [Catalytic activity/Vol] 59 U/L 34 - 123 U/L [facility] ALT [Catalytic activity/Vol] 18 U/L 7 - 38 U/L [facility] Anion gap [Moles/Vol] 8 mmol/L 8 - 15 mmol/L [facility] AST [Catalytic activity/Vol] 21 U/L 13 - 35 U/L [facility] Bilirubin [Mass/Vol] 0.3 mg/dL 0.2 - 1 .3 mg/dL [facility] System Calcium [Mass/Vol] 9.1 mg/dL 8.5 - 10. 2 mg/dL [facility] Chloride [Moles/Vol] 107 mmol/L 98 - 10 7 mmol/L [facility] CO2 [Moles/Vol] 24 mmol/L 22 - 30 mmol/L [facility] Creatinine [Mass/Vol] 0.70 mg/dL 0.58 - 0.96 mg/dL [facility] GFR/1.73 sq M.predicted among non-blacks MDRD (S/P/Bld) [Vol rate/Area] 100 mL/min/{1.73_m2} - PINF [facility] Comment on above: Estimated Glomerular Filtration Rate (eGFR) is calculated using the 2020 CKD-EPI creatinine equation. This equation utilizes serum creatinine, sex, and age as parameters. The creatinine assay has traceable calibration to isotope dilution-mass spectrometry. Refer to KDIGO guidelines for clinical interpretation. In patients with unstable renal function, e.g. those with acute kidney injury, the eGFR may not accurately reflect actual GFR. Glucose [Mass/Vol] 96 mg/dL 74 - 99 mg/dL [facility] Comment on above: The [place] Diabete s Association (ADA) provides guidance for cutoff values for fasting glucose and random glucose. The ADA defines fasting as no caloric intake for at least 8 hours. Fasting plasma glucose results between 100 to 125 mg/dL indicate increased risk for diabetes (prediabetes). Fasting plasma glucose results greater than or equal to 126 mg/dL meet the criteria for diagnosis of diabetes. In the absence of unequivocal hyperglycemia, results should be confirmed by repeat testing. In a patient with classic symptoms of hyperglycemia or hyperglycemic crisis, random plasma glucose results greater than or equal to 200 mg/dL meet the criteria for diagnosis of diabetes. Reference: Standards of Medical Care in Diabetes 2016, [place] Diabetes Association. Diabetes Care. 2016.39(Suppl 1). Interpretation and review of laboratory results Normal [facility] Potassium [Moles/Vol] 3.9 mmol/L 3.7 - 5.1 mmol/L [facility] Protein [Mass/Vol] 6.5 g/dL 6.3 - 8.0 g/dL [facility] Sodium [Moles/Vol] 139 mmol/L 136 - 144 mmol/L [facility] Urea nitrogen [Mass/Vol] 19 mg/dL 7 - 21 mg/dL [facility] Comprehensive metabolic 2000 panelon 04-19-2024 Albumin [Mass/Vol] 3.9 g/dL Normal 3.9-4.9 [facility] Comment on above: Order Comment: Tessie cox Type: BLOOD SPECIMENOrdering Facility: [facility] Address: [address] [place] [address] Performed By: #### 2 432-8, ####[facility] [id number] [place] [address] [place] ALP [Catalytic activity/Vol] 59 U/L Normal 34-123 [facility] Comment on above: Order Comment: Tessie cox Type: BLOOD SPECIMENOrdering Facility: [facility] Address: [address] [place] [address] Performed By: #### 2 432-8, ####[facility] [id number] [place] [address] [place] ALT [Catalytic activity/Vol] 18 U/L Normal 7-38 [facility] Comment on above: Order Comment: Tessie cox Type: BLOOD SPECIMENOrdering Facility: [facility] Address: [address] [place] [address] Performed By: #### 2 4323, ####[facility] TIMO MILLTOWNCLIA [id number] [place] [address] [place] Anion gap [Moles/Vol] 8 mmol/L Normal 8-15 [facility] Comment on above: Order Comment: Speci men Type: BLOOD SPECIMENOrdering Facility: [facility] Address: [address] [place] [address] Performed By: #### 2 4323-8, ####[facility] MILLTOWNCLIA [id number] [place] [address] [place] AST [Catalytic activity/Vol] 21 U/L Normal 13-35 [facility] Comment on above: Order Comment: Speci men Type: BLOOD SPECIMENOrdering Facility: [facility] Address: [address] [place] [address] Performed By: #### 2 4328, ####[facility] MILLTOWNCLIA [id number] [place] [address] [place] Bilirubin [Mass/Vol] 0.3 mg/dL Normal 0.2-1.3 [facility] Comment on above: Order Comment: Speci men Type: BLOOD SPECIMENOrdering Facility: [facility] Address: [address] [place] [address] Performed By: #### 2 4323-8, ####[facility] MILLTOWNCLIA [id number] [place] [address] [place] Calcium [Mass/Vol] 9.1 mg/dL Normal 8.5-10.2 [facility] Comment on above: Order Comment: Speci men Type: BLOOD SPECIMENOrdering Facility: [facility] Address: [address] [place], [place] [address] Performed By: #### 2 4323-8, ####[facility] MILLTOWNCLIA [id number] [place] [address] [place] Chloride [Moles/Vol] 107 mmol/L Normal 98-107 [facility] Comment on above: Order Comment: Speci men Type: BLOOD SPECIMENOrdering Facility: [facility] Address: [address] [place] [address] Performed By: #### 2 4323-8, 08117-5 ####[facility] [id number] [place] [address] [place] CO2 [Moles/Vol] 24 mmol/L Normal 22-30 [facility] Comment on above: Order Comment: Speci men Type: BLOOD SPECIMENOrdering Facility: [facility] Address: [address] [place] [address] Performed By: #### 2 4323-8, 66441-8 ####[facility] [id number] [place] [address] [place] [facility] Creatinine [Mass/Vol] 0.70 mg/dL Normal 0.58-0.96 [facility] Comment on above: Order Comment: Speci men Type: BLOOD SPECIMENOrdering Facility: [facility] Address: [address] [place] [address] Performed By: #### 2 4323-8, 57693-2 ####[facility] [id number] [place] [address] [place] [facility] Creatinine and Glomerular filtration rate.predicted panel (S/P/Bld) 100 mL/min/1.73m??? Normal >=60 [facility] Comment on above: Order Comment: Speci men Type: BLOOD SPECIMENOrdering Facility: [facility] Address: [address] [place] [address] Result Comment: [place] mated Glomerular Filtration Rate (eGFR) is calculated using the 2020 CKD-EPI creatinine equation. This equation utilizes serum creatinine, sex, and age as parameters. The creatinine assay has traceable calibration to isotope dilution-mass spectrometry. Refer to KDIGO guidelines for clinical interpretation. In patients with unstable renal function, e.g. those with acute kidney injury, the eGFR may not accurately reflect actual GFR. Performed By: #### 2 4323-8, ####[facility] TIMO DEVYNTHUNCURI [id number] [place] [address] [place] Glucose [Mass/Vol] 96 mg/dL Normal 74-99 [facility] Comment on above: Order Comment: Tessie cox Type: BLOOD SPECIMENOrdering Facility: [facility] Address: [address] [place] [address] Result Comment: The [place] Diabetes Association (ADA) provides guidance for cutoff values for fasting glucose and random glucose. The ADA defines fasting as no caloric intake for at least 8 hours. Fasting plasma glucose results between 100 to 125 mg/dL indicate increased risk for diabetes (prediabetes).Fasting plasma glucose results greater than or equal to 126 mg/dL meet the criteria for diagnosis of diabetes. In the absence of unequivocal hyperglycemia, results should be confirmed by repeat testing. In a patient with classic symptoms of hyperglycemia or hyperglycemic crisis, random plasma glucose results greater than or equal to 200 mg/dL meet the criteria for diagnosis of diabetes.Reference: Standards of Medical Care in Diabetes 2016, [place] Diabetes Association. Diabetes Care. 2016.39(Suppl 1). Performed By: #### 2 43212-21, ####[facility] HOSPITALNCTERESAA [id number] [place] [address] [place] Potassium [Moles/Vol] 3.9 mmol/L Normal 3.7-5.1 [facility] Comment on above: Order Comment: Tessie cox Type: BLOOD SPECIMENOrdering Facility: [facility] Address: [address] [place] [address] Performed By: #### 2 432-, ####[facility] DEVYNWNCLIA [id number] [place] [address] [place] Protein [Mass/Vol] 6.5 g/dL Normal 6.3-8.0 [facility] Comment on above: Order Comment: Speci men Type: BLOOD SPECIMENOrdering Facility: [facility] Address: [address] [place] [address] Performed By: #### 2 4323-8, ####[facility] MILLTOWNCLIA [id number] [place] [address] [place] Sodium [Moles/Vol] 139 mmol/L Normal 136-144 [facility] Comment on above: Order Comment: Speci men Type: BLOOD SPECIMENOrdering Facility: [facility] Address: [address] [place] [address] Performed By: #### 2 4323-8, ####[facility] MILLBEARDENNCURI [id number] [place] [address] [place] Urea nitrogen [Mass/Vol] 19 mg/dL Normal 7-21 [facility] Comment on above: Order Comment: Speci men Type: BLOOD SPECIMENOrdering Facility: [facility] Address: [address] [place] [address] Performed By: #### 2 43238, ####[facility] HOSPITALIESHALIA [id number] [place] [address] [place] MAGNESIUM BLDon 04-19-2024 Magnesium [Mass/Vol] 1.8 mg/dL 1.7 - 2 .3 mg/dL [facility] Magnesium SerPl-mCncon 04-19 Magnesium [Mass/Vol] 1.8 mg/dL Normal 1.7-2.3 [facility] Comment on above: Order Comment: Speci men Type: BLOOD SPECIMENOrdering Facility: [facility] Address: [address] [place], [place] [address] Performed By: #### 2 4323-8, ####[facility] MILLBEARDENNCLIA [id number] [place] [address] [place] Magnesium [Mass/Vol]on 04-19 Interpretation and review of laboratory results Normal [facility] CBC W Auto Differential pane l (Bld)on 04-10-2024 Basophils (Bld) [#/Vol] 0.05 10*3/uL [facility] Basophils/100 WBC (Bld) 1.0 % [facility] Differential cell count method Nom (Bld) Auto [facility] Eosinophils (Bld) [#/Vol] 0.10 10*3/uL [facility] Eosinophils/100 WBC (Bld) 2.1 % [facility] Erythrocyte distribution width (RBC) [Ratio] 16.6 % High 11.5 - 15.0 % [facility] Hematocrit (Bld) [Volume fraction] 32.1 % Low 36.0 - 46.0 % [facility] Hemoglobin (Bld) [Mass/Vol] 10.5 g/dL Low 11.5 - 15.5 g/dL [facility] Immature granulocytes (Bld) [#/Vol] [facility] Immature granulocytes/100 WBC (Bld) 0.2 % [facility] Interpretation and review of laboratory results Abnormal [facility] Lymphocytes (Bld) [#/Vol] 1.70 10*3/uL [facility] Lymphocytes/100 WBC (Bld) 35.3 % [facility] MCH (RBC) [Entitic mass] 27.9 pg 26.0 - 34.0 pg [facility] MCHC (RBC) [Mass/Vol] 32.7 g/dL 30.5 - 36.0 g/dL [facility] MCV (RBC) [Entitic vol] 85.1 fL 80.0 - 100.0 fL [facility] Monocytes (Bld) [#/Vol] 0.64 10*3/uL [facility] Monocytes/100 WBC (Bld) 13.3 % [facility] Neutrophils (Bld) [#/Vol] 2.32 10*3/uL [facility] Neutrophils/100 WBC (Bld) 48.1 % [facility] Nucleated RBC (Bld) [#/Vol] [facility] Nucleated RBC/100 WBC (Bld) [Ratio] 0.0 % /100 WBC [facility] Platelet mean volume (Bld) [Entitic vol] 9.2 fL 9.0 - 12.7 fL [facility] Platelets (Bld) [#/Vol] 330 10*3/uL [facility] RBC (Bld) [#/Vol] 3.77 10*6/uL Low 3.90 - 5.2 0 m/uL [facility] WBC (Bld) [#/Vol] 4.82 10*3/uL [facility] Basophils (Bld) [#/Vol] 0.05 10*3/uL Normal <0.11 [facility] Comment on above: Order Comment: Speci men Type: BLOOD SPECIMENOrdering Facility: [facility] Address: [address] [place] [address] Performed By: #### 5 7021-8 ####[facility] MILLTOWNCLIA [id number] [place] [address] [place] Basophils/100 WBC (Bld) 1.0 % Normal [facility] Comment on above: Order Comment: Speci men Type: BLOOD SPECIMENOrdering Facility: [facility] Address: [address] [place] [address] Performed By: #### 5 7021-8 ####[facility] HOSPITALNCLIA [id number] [place] [address] [place] Differential cell count method Nom (Bld) Auto Normal [facility] Comment on above: Order Comment: Speci men Type: BLOOD SPECIMENOrdering Facility: [facility] Address: [address] [place] [address] Performed By: #### 5 7021-8 ####[facility] MILLTOWNCLIA [id number] [place] [address] [place] Eosinophils (Bld) [#/Vol] 0.10 10*3/uL Normal <0.46 [facility] Comment on above: Order Comment: Speci men Type: BLOOD SPECIMENOrdering Facility: [facility] Address: [address] [place] [address] Performed By: #### 5 7021-8 ####[facility] HOSPITALNCLIA [id number] [place] [address] [place] Eosinophils/100 WBC (Bld) 2.1 % Normal [facility] Comment on above: Order Comment: Speci men Type: BLOOD SPECIMENOrdering Facility: [facility] Address: [address] [place] [address] Performed By: #### 5 7021-8 ####[facility] HOSPITALKEV [id number] [place] [address] [place] Erythrocyte distribution width (RBC) [Ratio] 16.6 % High 11.5-15.0 [facility] Comment on above: Order Comment: Speci men Type: BLOOD SPECIMENOrdering Facility: [facility] Address: [address] [place] [address] Performed By: #### 5 7021-8 ####[facility] HOSPITALIESHAASHLEY [facility] [id number] [place] [address] [place] Hematocrit (Bld) [Volume fraction] 32.1 % Low 36.0-46.0 [facility] Comment on above: Order Comment: Speci men Type: BLOOD SPECIMENOrdering Facility: [facility] Address: [address] [place] [address] Performed By: #### 5 7021-8 ####[facility] HOSPITALIESHALIA [id number] [place] [address] [place] Hemoglobin (Bld) [Mass/Vol] 10.5 g/dL Low 11.5-15.5 [facility] Comment on above: Order Comment: Speci men Type: BLOOD SPECIMENOrdering Facility: [facility] Address: [address] [place] [address] Performed By: #### 5 7021-8 ####[facility] HOSPITALNCLIA [id number] [place] [address] [place] Immature granulocytes (Bld) [#/Vol] 10*3/uL Normal <0.10 [facility] Comment on above: Order Comment: Speci men Type: BLOOD SPECIMENOrdering Facility: [facility] Address: [address] [place] [address] Performed By: #### 5 7021-8 ####[facility] [id number] [place] [address] [place] Immature granulocytes/100 WBC (Bld) 0.2 % Normal [facility] Comment on above: Order Comment: Speci men Type: BLOOD SPECIMENOrdering Facility: [facility] Address: [address] [place] [address] Performed By: #### 5 7021-8 ####[facility] [id number] [place] [address] [place] Lymphocytes (Bld) [#/Vol] 1.70 10*3/uL Normal 1.00-4.00 [facility] Comment on above: Order Comment: Speci men Type: BLOOD SPECIMENOrdering Facility: [facility] Address: [address] [place] [address] Performed By: #### 5 7021-8 ####[facility] [id number] [place] [address] [place] Lymphocytes/100 WBC (Bld) 35.3 % Normal [facility] Comment on above: Order Comment: Speci men Type: BLOOD SPECIMENOrdering Facility: [facility] Address: [address] [place] [address] Performed By: #### 5 7021-8 ####[facility] [id number] [place] [address] [place] MCH (RBC) [Entitic mass] 27.9 pg Normal 26.0-34.0 [facility] Comment on above: Order Comment: Speci men Type: BLOOD SPECIMENOrdering Facility: [facility] Address: [address] [place] [address] Performed By: #### 5 7021-8 ####[facility] DEVYNMadeleineNCLIA [id number] [place] [address] [place] MCHC (RBC) [Mass/Vol] 32.7 g/dL Normal 30.5-36.0 [facility] Comment on above: Order Comment: Speci men Type: BLOOD SPECIMENOrdering Facility: [facility] Address: [address] [place] [address] Performed By: #### 5 7021-8 ####[facility] COMM[facility] HOSPITALNCA [id number] [place] [address] [place] MCV (RBC) [Entitic vol] 85.1 fL Normal 80.0-100.0 [facility] Comment on above: Order Comment: Speci men Type: BLOOD SPECIMENOrdering Facility: [facility] Address: [address] [place] [address] Performed By: #### 5 7021-8 ####[facility] [id number] [place] [address] [place] Monocytes (Bld) [#/Vol] 0.64 10*3/uL Normal <0.87 [facility] Comment on above: Order Comment: Speci men Type: BLOOD SPECIMENOrdering Facility: [facility] Address: [address] [place] [address] Performed By: #### 5 7021-8 ####[facility] HOSPITALLIA [id number] [place] [address] [place] Monocytes/100 WBC (Bld) 13.3 % Normal [facility] Comment on above: Order Comment: Speci men Type: BLOOD SPECIMENOrdering Facility: [facility] Address: [address] [place] [address] Performed By: #### 5 7021-8 ####[facility] [id number] [place] [address] [place] Neutrophils (Bld) [#/Vol] 2.32 10*3/uL Normal 1.45-7.50 [facility] Comment on above: Order Comment: Speci men Type: BLOOD SPECIMENOrdering Facility: [facility] Address: [address] [place] [address] Performed By: #### 5 7021-8 ####[facility]STITUTEA [id number] [place] [address] [place] Neutrophils/100 WBC (Bld) 48.1 % Normal [facility] Comment on above: Order Comment: Speci men Type: BLOOD SPECIMENOrdering Facility: [facility] Address: [address] [place] [address] Performed By: #### 5 7021-8 ####[facility] HOSPITALNCASH[facility] [id number] [place] [address] [place] Nucleated RBC (Bld) [#/Vol] 10*3/uL Normal <0.01 [facility] Comment on above: Order Comment: Speci men Type: BLOOD SPECIMENOrdering Facility: [facility] Address: [address] [place] [address] Performed By: #### 5 7021-8 ####[facility] HOSPITALLIA [id number] [place] [address] [place] Nucleated RBC/100 WBC (Bld) [Ratio] 0.0 /100 WBC Normal [facility] Comment on above: Order Comment: Speci men Type: BLOOD SPECIMENOrdering Facility: [facility] Address: [address] [place] [address] Performed By: #### 5 7021-8 ####[facility] HOSPITALNCLI [id number] [place] [address] [place] Platelet mean volume (Bld) [Entitic vol] 9.2 fL Normal 9.0-12.7 [facility] Comment on above: Order Comment: Speci men Type: BLOOD SPECIMENOrdering Facility: [facility] Address: [address] [place] [address] Performed By: #### 5 7021-8 ####[facility] HOSPITALNCLIA [id number] [place] [address] [place] Platelets (Bld) [#/Vol] 330 10*3/uL Normal 150-400 [facility] Comment on above: Order Comment: Speci men Type: BLOOD SPECIMENOrdering Facility: [facility] Address: [address] [place] [address] Performed By: #### 5 7021-8 ####[facility] COMM[facility] HOSPITALNCA [id number] [place] [address] [place] RBC (Bld) [#/Vol] 3.77 10*6/uL Low 3.90-5.20 [facility] Comment on above: Order Comment: Speci men Type: BLOOD SPECIMENOrdering Facility: [facility] Address: [address] [place] [address] Performed By: #### 5 7021-8 ####[facility] COMM[facility] HOSPITALNCA [id number] [place] [address] [place] WBC (Bld) [#/Vol] 4.82 10*3/uL Normal 3.70-11.00 [facility] Comment on above: Order Comment: Speci men Type: BLOOD SPECIMENOrdering Facility: [facility] Address: [address] [place] [address] Performed By: #### 5 7021-8 ####[facility] HOSPITALNCLIA [id number] [place] [address] [place] CNOVSPon 04-10-2024 CNOVSP Normal [facility] CNPNon 04-10-2024 CNPN Normal [facility] Cancer Ag125 SerPl-aCncon Cancer Ag 125 Qn 37 [arb'U]/mL Normal <39 [facility] Comment on above: Order Comment: Speci men Type: BLOOD SPECIMENOrdering Facility: [facility] Address: [address] [place] [address] Result Comment: CA 1 25 test methodology used is the Electrochemiluminescence Immunoassay by [employer]. Results obtained with different methods or kits cannot be used interchangeably.The reference interval is based on the 95th percentile of 240 apparently healthy premenopausal and postmenopausal women. At a cutoff value of 65 U/mL, the test sensitivity to distinguish ovarian carcinoma (FIGO stage I to IV) versus benign gynecological disease is 79%, with a specificity of 82%.Reference: Cancer Antigen 125 (CA 125 II) [package insert V 1.0 [place]]. [facility], [place], [place] (July 2015) Performed By: #### 1 0334-1 ####[facility] LABCLIA [id number] [place] [address] [place] Comprehensive metabolic 2000 panelOrdered By: Marium Vu on 04-10-2024 Albumin [Mass/Vol] 3.9 g/dL 3.9 - 4.9 g/dL [facility] ALP [Catalytic activity/Vol] 61 U/L 34 - 123 U/L [facility] ALT [Catalytic activity/Vol] 20 U/L 7 - 38 U/L [facility] Anion gap [Moles/Vol] 8 mmol/L 8 - 15 mmol/L [facility] AST [Catalytic activity/Vol] 26 U/L 13 - 35 U/L [facility] Bilirubin [Mass/Vol] 0.2 mg/dL 0.2 - 1 .3 mg/dL [facility] Calcium [Mass/Vol] 9.2 mg/dL 8.5 - 10. 2 mg/dL [facility] Chloride [Moles/Vol] 107 mmol/L 98 - 10 7 mmol/L [facility] CO2 [Moles/Vol] 23 mmol/L 22 - 30 mmol/L [facility] Creatinine [Mass/Vol] 0.75 mg/dL 0.58 - 0.96 mg/dL [facility] GFR/1.73 sq M.predicted among non-blacks MDRD (S/P/Bld) [Vol rate/Area] 92 mL/min/{1.73_m2} - PINF [facility] Comment on above: Estimated Glomerular Filtration Rate (eGFR) is calculated using the 2020 CKD-EPI creatinine equation. This equation utilizes serum creatinine, sex, and age as parameters. The creatinine assay has traceable calibration to isotope dilution-mass spectrometry. Refer to KDIGO guidelines for clinical interpretation. In patients with unstable renal function, e.g. those with acute kidney injury, the eGFR may not accurately reflect actual GFR. Glucose [Mass/Vol] 119 mg/dL High 74 - 99 mg/dL [facility] Comment on above: The [place] Diabete s Association (ADA) provides guidance for cutoff values for fasting glucose and random glucose. The ADA defines fasting as no caloric intake for at least 8 hours. Fasting plasma glucose results between 100 to 125 mg/dL indicate increased risk for diabetes (prediabetes). Fasting plasma glucose results greater than or equal to 126 mg/dL meet the criteria for diagnosis of diabetes. In the absence of unequivocal hyperglycemia, results should be confirmed by repeat testing. In a patient with classic symptoms of hyperglycemia or hyperglycemic crisis, random plasma glucose results greater than or equal to 200 mg/dL meet the criteria for diagnosis of diabetes. Reference: Standards of Medical Care in Diabetes 2016, [place] Diabetes Association. Diabetes Care. 2016.39(Suppl 1). Interpretation and review of laboratory results Abnormal [facility] Potassium [Moles/Vol] 4.6 mmol/L 3.7 - 5.1 mmol/L [facility] Protein [Mass/Vol] 6.5 g/dL 6.3 - 8.0 g/dL [facility] Sodium [Moles/Vol] 138 mmol/L 136 - 144 mmol/L [facility] Urea nitrogen [Mass/Vol] 15 mg/dL 7 - 21 mg/dL [facility] Comprehensive metabolic 2000 panelon 04-10-2024 Albumin [Mass/Vol] 3.9 g/dL Normal 3.9-4.9 [facility] Comment on above: Order Comment: Speci men Type: BLOOD SPECIMENOrdering Facility: [facility] Address: [address] [place], [place] [address] [id number] Performed By: #### 2 4323-8, 03611-2 ####[facility] TIMO SHEPARDBEARDENKEV [id number] [place] [address] [place] ALP [Catalytic activity/Vol] 61 U/L Normal 34-123 [facility] Comment on above: Order Comment: Speci men Type: BLOOD SPECIMENOrdering Facility: [facility] Address: [address] [place] [address] Performed By: #### 2 4323-8, 18394-6 ####[facility] MILLTOWIESHALIA [id number] [place] [address] [place] ALT [Catalytic activity/Vol] 20 U/L Normal 7-38 [facility] Comment on above: Order Comment: Speci men Type: BLOOD SPECIMENOrdering Facility: [facility] Address: [address] [place] [address] Performed By: #### 2 4323-8, 82741-3 ####[facility] CENTERMadeleineNCLIA [id number] [place] [address] [place] Anion gap [Moles/Vol] 8 mmol/L Normal 8-15 [facility] Comment on above: Order Comment: Speci men Type: BLOOD SPECIMENOrdering Facility: [facility] Address: [address] [place] [address] Performed By: #### 2 4323-8, 58409-6 ####[facility] MILLMADDIEWIESHALIA [id number] [place] [address] [place] AST [Catalytic activity/Vol] 26 U/L Normal 13-35 [facility] Comment on above: Order Comment: Speci men Type: BLOOD SPECIMENOrdering Facility: [facility] Address: [address] [place] [address] Performed By: #### 2 4323-8, 16058-5 ####[facility] HEALTHMADDIEWNCLIA [id number] [place] [address] [place] Bilirubin [Mass/Vol] 0.2 mg/dL Normal 0.2-1.3 [facility] Comment on above: Order Comment: Speci men Type: BLOOD SPECIMENOrdering Facility: [facility] Address: [address] [place] [address] Performed By: #### 2 432-8, ####[facility] HOSPITALIESHALIA [id number] [place] [address] [place] Calcium [Mass/Vol] 9.2 mg/dL Normal 8.5-10.2 [facility] Comment on above: Order Comment: Speci men Type: BLOOD SPECIMENOrdering Facility: [facility] Address: [address] [place] [address] Performed By: #### 2 432-8, ####[facility] INSTITUTEA [id number] [place] [address] [place] Chloride [Moles/Vol] 107 mmol/L Normal 98-107 [facility] Comment on above: Order Comment: Speci men Type: BLOOD SPECIMENOrdering Facility: [facility] Address: [address] [place] [address] Performed By: #### 2 4323-8, ####[facility] HOSPITALLIA [id number] [place] [address] [place] CO2 [Moles/Vol] 23 mmol/L Normal 22-30 [facility] Comment on above: Order Comment: Speci men Type: BLOOD SPECIMENOrdering Facility: [facility] Address: [address] [place] [address] Performed By: #### 2 4323-8, ####[facility] EUCL[facility] HOSPITALLIA [id number] [place] [address] [place] Creatinine [Mass/Vol] 0.75 mg/dL Normal 0.58-0.96 [facility] Comment on above: Order Comment: Speci men Type: BLOOD SPECIMENOrdering Facility: [facility] Address: [address] [place], [place] [address] Performed By: #### 2 4323-8, 26683-5 ####[facility] COMMUNITY HOSPITALNCLIA [id number] [place] [address] [place] Creatinine and Glomerular filtration rate.predicted panel (S/P/Bld) 92 mL/min/1.73m??? Normal >=60 [facility] Comment on above: Order Comment: Tessie cox Type: BLOOD SPECIMENOrdering Facility: [facility] Address: [address] [place] [address] Result Comment: Mariana mated Glomerular Filtration Rate (eGFR) is calculated using the 2020 CKD-EPI creatinine equation. This equation utilizes serum creatinine, sex, and age as parameters. The creatinine assay has traceable calibration to isotope dilution-mass spectrometry. Refer to KDIGO guidelines for clinical interpretation. In patients with unstable renal function, e.g. those with acute kidney injury, the eGFR may not accurately reflect actual GFR. Performed By: #### 2 4323-8, 60728-5 ####[facility] COMMUNITY HOSPITALNCLIA [id number] [place] [address] [place] Glucose [Mass/Vol] 119 mg/dL High 74-99 [facility] Comment on above: Order Comment: Tessie cox Type: BLOOD SPECIMENOrdering Facility: [facility] Address: [address] [place] [address] Result Comment: The [place] Diabetes Association (ADA) provides guidance for cutoff values for fasting glucose and random glucose. The ADA defines fasting as no caloric intake for at least 8 hours. Fasting plasma glucose results between 100 to 125 mg/dL indicate increased risk for diabetes (prediabetes).Fasting plasma glucose results greater than or equal to 126 mg/dL meet the criteria for diagnosis of diabetes. In the absence of unequivocal hyperglycemia, results should be confirmed by repeat testing. In a patient with classic symptoms of hyperglycemia or hyperglycemic crisis, random plasma glucose results greater than or equal to 200 mg/dL meet the criteria for diagnosis of diabetes.Reference: Standards of Medical Care in Diabetes 2016, [place] Diabetes Association. Diabetes Care. 2016.39(Suppl 1). Performed By: #### 2 4323-8, 01988-4 ####[facility] DEVYNEDER [id number] [place] [address] [place] Potassium [Moles/Vol] 4.6 mmol/L Normal 3.7-5.1 [facility] Comment on above: Order Comment: Speci men Type: BLOOD SPECIMENOrdering Facility: [facility] Address: [address] [place] [address] Performed By: #### 2 4323-8, 85523-0 ####[facility] COMMUN[facility] HOSPITALKEV [id number] [place] [address] [place] Protein [Mass/Vol] 6.5 g/dL Normal 6.3-8.0 [facility] Comment on above: Order Comment: Speci men Type: BLOOD SPECIMENOrdering Facility: [facility] Address: [address] [place] [address] Performed By: #### 2 4323-8, 36178-9 ####[facility] COMMUN[facility] HOSPITALKIANA [id number] [place] [address] [place] Sodium [Moles/Vol] 138 mmol/L Normal 136-144 [facility] Comment on above: Order Comment: Speci men Type: BLOOD SPECIMENOrdering Facility: [facility] Address: [address] [place] [address] Performed By: #### 2 4323-8, ####[facility] COMM[facility] HOSPITALKEV [id number] [place] [address] [place] Urea nitrogen [Mass/Vol] 15 mg/dL Normal 7-21 [facility] Comment on above: Order Comment: Speci men Type: BLOOD SPECIMENOrdering Facility: [facility] Address: [address] [place] [address] Performed By: #### 2 4323-8, ####[facility] DEVYNWNCLIA [id number] [place] [address] [place] MAGNESIUM Don 04-10-2024 Magnesium [Mass/Vol] 1.8 mg/dL 1.7 - 2 .3 mg/dL [facility] Magnesium SerPl-mCncon 04-10 Magnesium [Mass/Vol] 1.8 mg/dL Normal 1.7-2.3 [facility] Comment on above: Order Comment: Speci men Type: BLOOD SPECIMENOrdering Facility: [facility] Address: [address] [place] [address] [place] [address] Performed By: #### 2 4323-8, ####[facility] DEVYNBEARDENNCLIA [id number] [place] [address] [place] Magnesium [Mass/Vol]on 04-10 Interpretation and review of laboratory results Normal [facility] CA 125 [facility] 03-28-2024 Cancer Ag 125 Qn 39 [arb'U]/mL High NINF - 39 U/mL [facility] Comment on above: CA 125 test methodol ogy used is the Electrochemiluminescence Immunoassay by [employer]. Results obtained with different methods or kits cannot be used interchangeably. The reference interval is based on the 95th percentile of 240 apparently healthy premenopausal and postmenopausal women. At a cutoff value of 65 U/mL, the test sensitivity to distinguish ovarian carcinoma (FIGO stage I to IV) versus benign gynecological disease is 79%, with a specificity of 82%. Reference: Cancer Antigen 125 (CA 125 II) [package insert V 1.0 [place] [employer], [place], [place] (July 2015) CBC W Auto Differential pane l (Bld)on 03-28-2024 Basophils (Bld) [#/Vol] 0.04 10*3/uL [facility] Basophils/100 WBC (Bld) 0.9 % [facility] Differential cell count method Nom (Bld) Auto [facility] Eosinophils (Bld) [#/Vol] 0.11 10*3/uL [facility] Eosinophils/100 WBC (Bld) 2.4 % [facility] Erythrocyte distribution width (RBC) [Ratio] 15.7 % High 11.5 - 15.0 % [facility] Hematocrit (Bld) [Volume fraction] 33.6 % Low 36.0 - 46.0 % [facility] Hemoglobin (Bld) [Mass/Vol] 10.9 g/dL Low 11.5 - 15.5 g/dL [facility] Immature granulocytes (Bld) [#/Vol] 0.03 10*3/uL [facility] Immature granulocytes/100 WBC (Bld) 0.7 % [facility] Interpretation and review of laboratory results Abnormal [facility] Lymphocytes (Bld) [#/Vol] 1.79 10*3/uL [facility] Lymphocytes/100 WBC (Bld) 39.0 % [facility] MCH (RBC) [Entitic mass] 27.7 pg 26.0 - 34.0 pg [facility] MCHC (RBC) [Mass/Vol] 32.4 g/dL 30.5 - 36.0 g/dL [facility] MCV (RBC) [Entitic vol] 85.3 fL 80.0 - 100.0 fL [facility] Monocytes (Bld) [#/Vol] 0.35 10*3/uL [facility] Monocytes/100 WBC (Bld) 7.6 % [facility] Neutrophils (Bld) [#/Vol] 2.27 10*3/uL [facility] Neutrophils/100 WBC (Bld) 49.4 % [facility] Nucleated RBC (Bld) [#/Vol] [facility]F [facility] Nucleated RBC/100 WBC (Bld) [Ratio] 0.0 % /100 WBC [facility] Platelet mean volume (Bld) [Entitic vol] 9.7 fL 9.0 - 12.7 fL [facility] Platelets (Bld) [#/Vol] 302 10*3/uL [facility] RBC (Bld) [#/Vol] 3.94 10*6/uL 3.90 - 5.2 0 m/uL [facility] WBC (Bld) [#/Vol] 4.59 10*3/uL [facility] Basophils (Bld) [#/Vol] 0.04 10*3/uL Normal <0.11 [facility] Comment on above: Order Comment: Speci men Type: BLOOD SPECIMENOrdering Facility: [facility] Address: [address] [place] [address] Performed By: #### 5 7021-8 ####[facility] MILLWNCLIA [id number] [place] [address] [place] Basophils/100 WBC (Bld) 0.9 % Normal [facility] Comment on above: Order Comment: Speci men Type: BLOOD SPECIMENOrdering Facility: [facility] Address: [address] [place] [address] Performed By: #### 5 7021-8 ####[facility] HOSPITALLIA [id number] [place] [address] [place] Differential cell count method Nom (Bld) Auto Normal [facility] Comment on above: Order Comment: Speci men Type: BLOOD SPECIMENOrdering Facility: [facility] Address: [address] [place] [address] Performed By: #### 5 7021-8 ####[facility] HOSPITALLIA [id number] [place] [address] [place] Eosinophils (Bld) [#/Vol] 0.11 10*3/uL Normal <0.46 [facility] Comment on above: Order Comment: Speci men Type: BLOOD SPECIMENOrdering Facility: [facility] Address: [address] [place] [address] Performed By: #### 5 7021-8 ####[facility] MILLWNCLIA [id number] [place] [address] [place] Eosinophils/100 WBC (Bld) 2.4 % Normal [facility] Comment on above: Order Comment: Speci men Type: BLOOD SPECIMENOrdering Facility: [facility] Address: [address] [place] [address] Performed By: #### 5 7021-8 ####[facility] HOSPITALNCLIA [id number] [place] [address] [place] Erythrocyte distribution width (RBC) [Ratio] 15.7 % High 11.5-15.0 [facility] Comment on above: Order Comment: Speci men Type: BLOOD SPECIMENOrdering Facility: [facility] Address: [address] [place] [address] Performed By: #### 5 7021-8 ####[facility] COMM[facility] HOSPITALKEV [id number] [place] [address] [place] Hematocrit (Bld) [Volume fraction] 33.6 % Low 36.0-46.0 [facility] Comment on above: Order Comment: Speci men Type: BLOOD SPECIMENOrdering Facility: [facility] Address: [address] [place] [address] Performed By: #### 5 7021-8 ####[facility] COMM[facility] HOSPITALKEV [id number] [place] [address] [place] Hemoglobin (Bld) [Mass/Vol] 10.9 g/dL Low 11.5-15.5 [facility] Comment on above: Order Comment: Speci men Type: BLOOD SPECIMENOrdering Facility: [facility] Address: [address] [place] [address] Performed By: #### 5 7021-8 ####[facility] COMM[facility] HOSPITALKEV [id number] [place] [address] [place] Immature granulocytes (Bld) [#/Vol] 0.03 10*3/uL Normal <0.10 [facility] Comment on above: Order Comment: Speci men Type: BLOOD SPECIMENOrdering Facility: [facility] Address: [address] [place] [address] Performed By: #### 5 7021-8 ####[facility] HOSPITALNCLINely [id number] [place] [address] [place] Immature granulocytes/100 WBC (Bld) 0.7 % Normal [facility] Comment on above: Order Comment: Speci men Type: BLOOD SPECIMENOrdering Facility: [facility] Address: [address] [place] [address] Performed By: #### 5 7021-8 ####[facility] DEVYNBEARDENNCTERESAA [id number] [place] [address] [place] Lymphocytes (Bld) [#/Vol] 1.79 10*3/uL Normal 1.00-4.00 [facility] Comment on above: Order Comment: Speci men Type: BLOOD SPECIMENOrdering Facility: [facility] Address: [address] [place] [address] Performed By: #### 5 7021-8 ####[facility] HOSPITALNCASHLEY [facility] [id number] [place] [address] [place] Lymphocytes/100 WBC (Bld) 39.0 % Normal [facility] Comment on above: Order Comment: Speci men Type: BLOOD SPECIMENOrdering Facility: [facility] Address: [address] [place] [address] Performed By: #### 5 7021-8 ####[facility] HOSPITALNCASHLEY [facility] [id number] [place] [address] [place] MCH (RBC) [Entitic mass] 27.7 pg Normal 26.0-34.0 [facility] Comment on above: Order Comment: Speci men Type: BLOOD SPECIMENOrdering Facility: [facility] Address: [address] [place] [address] Performed By: #### 5 7021-8 ####[facility] HOSPITALNCLIA [id number] [place] [address] [place] MCHC (RBC) [Mass/Vol] 32.4 g/dL Normal 30.5-36.0 [facility] Comment on above: Order Comment: Speci men Type: BLOOD SPECIMENOrdering Facility: [facility] Address: [address] [place] [address] Performed By: #### 5 7021-8 ####[facility] HOSPITALNCLIA [id number] [place] [address] [place] MCV (RBC) [Entitic vol] 85.3 fL Normal 80.0-100.0 [facility] Comment on above: Order Comment: Speci men Type: BLOOD SPECIMENOrdering Facility: [facility] Address: [address] [place] [address] Performed By: #### 5 7021-8 ####[facility] HOSPITALNCLIA [id number] [place] [address] [place] Monocytes (Bld) [#/Vol] 0.35 10*3/uL Normal <0.87 [facility] Comment on above: Order Comment: Speci men Type: BLOOD SPECIMENOrdering Facility: [facility] Address: [address] [place] [address] Performed By: #### 5 7021-8 ####[facility] COMM[facility] HOSPITALNCA [id number] [place] [address] [place] Monocytes/100 WBC (Bld) 7.6 % Normal [facility] Comment on above: Order Comment: Speci men Type: BLOOD SPECIMENOrdering Facility: [facility] Address: [address] [place] [address] Performed By: #### 5 7021-8 ####[facility] HOSPITALLIA [id number] [place] [address] [place] Neutrophils (Bld) [#/Vol] 2.27 10*3/uL Normal 1.45-7.50 [facility] Comment on above: Order Comment: Speci men Type: BLOOD SPECIMENOrdering Facility: [facility] Address: [address] [place] [address] Performed By: #### 5 7021-8 ####[facility] [id number] [place] [address] [place] Neutrophils/100 WBC (Bld) 49.4 % Normal [facility] Comment on above: Order Comment: Speci men Type: BLOOD SPECIMENOrdering Facility: [facility] Address: [address] [place] [address] Performed By: #### 5 7021-8 ####[facility] HOSPITALIESHANely [id number] [place] [address] [place] Nucleated RBC (Bld) [#/Vol] 10*3/uL Normal <0.01 [facility] Comment on above: Order Comment: Speci men Type: BLOOD SPECIMENOrdering Facility: [facility] Address: [address] [place] [address] Performed By: #### 5 7021-8 ####[facility] HOSPITALIESHANely [id number] [place] [address] [place] Nucleated RBC/100 WBC (Bld) [Ratio] 0.0 /100 WBC Normal [facility] Comment on above: Order Comment: Speci men Type: BLOOD SPECIMENOrdering Facility: [facility] Address: [address] [place] [address] Performed By: #### 5 7021-8 ####[facility]UNITY HOSPITALNCLINely [id number] [place] [address] [place] Platelet mean volume (Bld) [Entitic vol] 9.7 fL Normal 9.0-12.7 [facility] Comment on above: Order Comment: Speci men Type: BLOOD SPECIMENOrdering Facility: [facility] Address: [address] [place] [address] Performed By: #### 5 7021-8 ####[facility] HOSPITALNCLIA [id number] [place] [address] [place] Platelets (Bld) [#/Vol] 302 10*3/uL Normal 150-400 [facility] Comment on above: Order Comment: Speci men Type: BLOOD SPECIMENOrdering Facility: [facility] Address: [address] [place] [address] Performed By: #### 5 7021-8 ####[facility] DEVYNWNCLIA [id number] [place] [address] [place] RBC (Bld) [#/Vol] 3.94 10*6/uL Normal 3.90-5.20 [facility] Comment on above: Order Comment: Speci men Type: BLOOD SPECIMENOrdering Facility: [facility] Address: [address] [place] [address] Performed By: #### 5 7021-8 ####[facility] CENTERWNCLIA [id number] [place] [address] [place] WBC (Bld) [#/Vol] 4.59 10*3/uL Normal 3.70-11.00 [facility] Comment on above: Order Comment: Speci men Type: BLOOD SPECIMENOrdering Facility: [facility] Address: [address] [place] [address] Performed By: #### 5 7021-8 ####[facility] HOSPITALNCLIA [id number] [place] [address] [place] CNPNon 03-28-2024 CNPN Normal [facility] Cancer Ag 125 Qnon Interpretation and review of laboratory results Abnormal [facility] Cancer Ag125 SerPl-aCncon Cancer Ag 125 Qn 39 [arb'U]/mL High <39 [facility] Comment on above: Order Comment: Speci men Type: BLOOD SPECIMENOrdering Facility: [facility] Address: [address] [place] [address] Result Comment: CA 1 25 test methodology used is the Electrochemiluminescence Immunoassay by [employer]. Results obtained with different methods or kits cannot be used interchangeably.The reference interval is based on the 95th percentile of 240 apparently healthy premenopausal and postmenopausal women. At a cutoff value of 65 U/mL, the test sensitivity to distinguish ovarian carcinoma (FIGO stage I to IV) versus benign gynecological disease is 79%, with a specificity of 82%.Reference: Cancer Antigen 125 (CA 125 II) [package insert V 1.0 [place]]. [employer], [place], [place] (July 2015) Performed By: #### 1 0334-1 ####[facility] LABCLIA [id number] [place] [address] [place] [facility] [place] Comprehensive metabolic 2000 panelOrdered By: Marium Vu on 03-28-2024 Albumin [Mass/Vol] 4.1 g/dL 3.9 - 4.9 g/dL [facility] ALP [Catalytic activity/Vol] 61 U/L 34 - 123 U/L [facility] ALT [Catalytic activity/Vol] 19 U/L 7 - 38 U/L [facility] Anion gap [Moles/Vol] 8 mmol/L 8 - 15 mmol/L [facility] AST [Catalytic activity/Vol] 22 U/L 13 - 35 U/L [facility] Bilirubin [Mass/Vol] 0.2 mg/dL 0.2 - 1 .3 mg/dL [facility] Calcium [Mass/Vol] 9.8 mg/dL 8.5 - 10. 2 mg/dL [facility] Chloride [Moles/Vol] 104 mmol/L 98 - 10 7 mmol/L [facility] CO2 [Moles/Vol] 26 mmol/L 22 - 30 mmol/L [facility] Creatinine [Mass/Vol] 0.76 mg/dL 0.58 - 0.96 mg/dL [facility] GFR/1.73 sq M.predicted among non-blacks MDRD (S/P/Bld) [Vol rate/Area] 91 mL/min/{1.73_m2} - PINF [facility] Comment on above: Estimated Glomerular Filtration Rate (eGFR) is calculated using the 2020 CKD-EPI creatinine equation. This equation utilizes serum creatinine, sex, and age as parameters. The creatinine assay has traceable calibration to isotope dilution-mass spectrometry. Refer to KDIGO guidelines for clinical interpretation. In patients with unstable renal function, e.g. those with acute kidney injury, the eGFR may not accurately reflect actual GFR. Glucose [Mass/Vol] 112 mg/dL High 74 - 99 mg/dL [facility] Comment on above: The [place] Diab[employer] s Association (ADA) provides guidance for cutoff values for fasting glucose and random glucose. The ADA defines fasting as no caloric intake for at least 8 hours. Fasting plasma glucose results between 100 to 125 mg/dL indicate increased risk for diabetes (prediabetes). Fasting plasma glucose results greater than or equal to 126 mg/dL meet the criteria for diagnosis of diabetes. In the absence of unequivocal hyperglycemia, results should be confirmed by repeat testing. In a patient with classic symptoms of hyperglycemia or hyperglycemic crisis, random plasma glucose results greater than or equal to 200 mg/dL meet the criteria for diagnosis of diabetes. Reference: Standards of Medical Care in Diabetes 2016, [place] Diabetes Association. Diabetes Care. 2016.39(Suppl 1). Interpretation and review of laboratory results Abnormal [facility] Potassium [Moles/Vol] 4.6 mmol/L 3.7 - 5.1 mmol/L [facility] Protein [Mass/Vol] 7.1 g/dL 6.3 - 8.0 g/dL [facility] Sodium [Moles/Vol] 138 mmol/L 136 - 144 mmol/L [facility] Urea nitrogen [Mass/Vol] 11 mg/dL 7 - 21 mg/dL [facility] Comprehensive metabolic 2000 panelon 03-28-2024 Albumin [Mass/Vol] 4.1 g/dL Normal 3.9-4.9 [facility] Comment on above: Order Comment: Speci men Type: BLOOD SPECIMENOrdering Facility: [facility] Address: [address] [place] [address] Performed By: #### 2 4323-8, ####[facility] HOSPITALNCLI [id number] [place] [address] [place] ALP [Catalytic activity/Vol] 61 U/L Normal 34-123 [facility] Comment on above: Order Comment: Speci men Type: BLOOD SPECIMENOrdering Facility: [facility] Address: [address] [place] [address] Performed By: #### 2 4323-8, ####[facility] HOSPITALNCLIA [id number] [place] [address] [place] ALT [Catalytic activity/Vol] 19 U/L Normal 7-38 [facility] Comment on above: Order Comment: Speci men Type: BLOOD SPECIMENOrdering Facility: [facility] [facility] Address: [address] [place] [address] Performed By: #### 2 4323-8, 69763-3 ####[facility] TIMO MILLTOWNCLIA [id number] [place] [address] [place] Anion gap [Moles/Vol] 8 mmol/L Normal 8-15 [facility] Comment on above: Order Comment: Speci men Type: BLOOD SPECIMENOrdering Facility: [facility] Address: [address] [place] [address] Performed By: #### 2 4323-8, 26002-5 ####[facility] MILLWIESHALIA [id number] [place] [address] [place] AST [Catalytic activity/Vol] 22 U/L Normal 13-35 [facility] Comment on above: Order Comment: Speci men Type: BLOOD SPECIMENOrdering Facility: [facility] Address: [address] [place] [address] Performed By: #### 2 4323-8, 93100-9 ####[facility] TIMO MILLTOWNCLIA [id number] [place] [address] [place] Bilirubin [Mass/Vol] 0.2 mg/dL Normal 0.2-1.3 [facility] Comment on above: Order Comment: Speci men Type: BLOOD SPECIMENOrdering Facility: [facility] Address: [address] [place] [address] Performed By: #### 2 4323-8, 16459-7 ####[facility] TIMO MILLTOWNCLIA [id number] [place] [address] [place] Calcium [Mass/Vol] 9.8 mg/dL Normal 8.5-10.2 [facility] Comment on above: Order Comment: Speci men Type: BLOOD SPECIMENOrdering Facility: [facility] Address: [address] [place] [address] Performed By: #### 2 4323-8, ####[facility] HOSPITALNCLI [id number] [place] [address] [place] Chloride [Moles/Vol] 104 mmol/L Normal 98-107 [facility] Comment on above: Order Comment: Speci men Type: BLOOD SPECIMENOrdering Facility: [facility] Address: [address] [place] [address] Performed By: #### 2 4323-8, ####[facility] [id number] [place] [address] [place] CO2 [Moles/Vol] 26 mmol/L Normal 22-30 [facility] Comment on above: Order Comment: Speci men Type: BLOOD SPECIMENOrdering Facility: [facility] Address: [address] [place] [address] Performed By: #### 2 4323-8, ####[facility] HOSPITALLI [id number] [place] [address] [place] Creatinine [Mass/Vol] 0.76 mg/dL Normal 0.58-0.96 [facility] Comment on above: Order Comment: Speci men Type: BLOOD SPECIMENOrdering Facility: [facility] Address: [address] [place] [address] Performed By: #### 2 4323-8, ####[facility] HOSPITALNCLIA [id number] [place] [address] [place] Creatinine and Glomerular filtration rate.predicted panel (S/P/Bld) 91 mL/min/1.73m??? Normal >=60 [facility] Comment on above: Order Comment: Tessie cox Type: BLOOD SPECIMENOrdering Facility: [facility] Address: [address] [place] [address] Result Comment: Mariana mated Glomerular Filtration Rate (eGFR) is calculated using the 2020 CKD-EPI creatinine equation. This equation utilizes serum creatinine, sex, and age as parameters. The creatinine assay has traceable calibration to isotope dilution-mass spectrometry. Refer to KDIGO guidelines for clinical interpretation. In patients with unstable renal function, e.g. those with acute kidney injury, the eGFR may not accurately reflect actual GFR. Performed By: #### 2 4323-8, ####[facility] [id number] [place] [address] [place] Glucose [Mass/Vol] 112 mg/dL High 74-99 [facility] Comment on above: Order Comment: Tessie cox Type: BLOOD SPECIMENOrdering Facility: [facility] Address: [address] [place] [address] Result Comment: The [place] Diabetes Association (ADA) provides guidance for cutoff values for fasting glucose and random glucose. The ADA defines fasting as no caloric intake for at least 8 hours. Fasting plasma glucose results between 100 to 125 mg/dL indicate increased risk for diabetes (prediabetes).Fasting plasma glucose results greater than or equal to 126 mg/dL meet the criteria for diagnosis of diabetes. In the absence of unequivocal hyperglycemia, results should be confirmed by repeat testing. In a patient with classic symptoms of hyperglycemia or hyperglycemic crisis, random plasma glucose results greater than or equal to 200 mg/dL meet the criteria for diagnosis of diabetes.Reference: Standards of Medical Care in Diabetes 2016, [place] Diabetes Association. Diabetes Care. 2016.39(Suppl 1). Performed By: #### 2 4323-8, ####[facility] [id number] [place] [address] [place] Potassium [Moles/Vol] 4.6 mmol/L Normal 3.7-5.1 [facility] Comment on above: Order Comment: Tessie cox Type: BLOOD SPECIMENOrdering Facility: [facility] Address: [address] [place], [place] [address] Performed By: #### 2 4323-8, 07496-0 ####[facility] TIMOSAMANTHA SHEPARDTONYLIA [id number] [place] [address] [place] Protein [Mass/Vol] 7.1 g/dL Normal 6.3-8.0 [facility] Comment on above: Order Comment: Speci men Type: BLOOD SPECIMENOrdering Facility: [facility] Address: [address] [place] [address] Performed By: #### 2 4323-8, 47253-1 ####[facility] TIMO DEVYNEDER [id number] [place] [address] [place] Sodium [Moles/Vol] 138 mmol/L Normal 136-144 [facility] Comment on above: Order Comment: Speci men Type: BLOOD SPECIMENOrdering Facility: [facility] Address: [address] [place] [address] Performed By: #### 2 4323-8, 87578-7 ####[facility] SAMRAA [id number] [place] [address] [place] Urea nitrogen [Mass/Vol] 11 mg/dL Normal 7-21 [facility] Comment on above: Order Comment: Speci men Type: BLOOD SPECIMENOrdering Facility: [facility] Address: [address] [place] [address] Performed By: #### 2 4323-8, 54356-8 ####[facility] MILLMADDIEWNCLIA [id number] [place] [address] [place] MAGNESIUM BLDon 03-28-2024 Magnesium [Mass/Vol] 1.8 mg/dL 1.7 - 2 .3 mg/dL [facility] Magnesium SerPl-mCncon 03-28 Magnesium [Mass/Vol] 1.8 mg/dL Normal 1.7-2.3 [facility] Comment on above: Order Comment: Speci men Type: BLOOD SPECIMENOrdering Facility: [facility] Address: [facility] [place] [address] Performed By: #### 2 4323-8, 53352-7 ####[facility] TIMO BROOKSKEV [id number] [place] [address] [place] Magnesium [Mass/Vol]on 03-28 Interpretation and review of laboratory results Normal [facility] No Panel Informationon 03-28 [facility] CNCOon 03-26-2024 CNCO Letter Text Normal [facility] CNPNon 03-26-2024 CNPN Normal [facility] CNPNon 03-21-2024 CNPN Normal [facility] CA 125 BLDon 03-20-2024 Cancer Ag 125 Qn 38 [arb'U]/mL NINF - 39 U/mL [facility] Comment on above: CA 125 test methodol ogy used is the Electrochemiluminescence Immunoassay by [employer]. Results obtained with different methods or kits cannot be used interchangeably. The reference interval is based on the 95th percentile of 240 apparently healthy premenopausal and postmenopausal women. At a cutoff value of 65 U/mL, the test sensitivity to distinguish ovarian carcinoma (FIGO stage I to IV) versus benign gynecological disease is 79%, with a specificity of 82%. Reference: Cancer Antigen 125 (CA 125 II) [package insert V 1.0 [place] [facility], [place], [place] (July 2015) CBC W Auto Differential pane l (Bld)on 03-20-2024 Basophils (Bld) [#/Vol] 0.05 10*3/uL [facility] Basophils/100 WBC (Bld) 1.0 % [facility] Differential cell count method Nom (Bld) Auto [facility] Eosinophils (Bld) [#/Vol] 0.12 10*3/uL [facility] Eosinophils/100 WBC (Bld) 2.3 % [facility] Erythrocyte distribution width (RBC) [Ratio] 15.7 % High 11.5 - 15.0 % [facility] Hematocrit (Bld) [Volume fraction] 35.2 % Low 36.0 - 46.0 % [facility] Hemoglobin (Bld) [Mass/Vol] 11.2 g/dL Low 11.5 - 15.5 g/dL [facility] Immature granulocytes (Bld) [#/Vol] NINF [facility] Immature granulocytes/100 WBC (Bld) 0.2 % [facility] Interpretation and review of laboratory results Abnormal [facility] Lymphocytes (Bld) [#/Vol] 1.93 10*3/uL [facility] Lymphocytes/100 WBC (Bld) 37.0 % [facility] MCH (RBC) [Entitic mass] 27.7 pg 26.0 - 34.0 pg [facility] MCHC (RBC) [Mass/Vol] 31.8 g/dL 30.5 - 36.0 g/dL [facility] MCV (RBC) [Entitic vol] 86.9 fL 80.0 - 100.0 fL [facility] Monocytes (Bld) [#/Vol] 0.55 10*3/uL [facility] Monocytes/100 WBC (Bld) 10.5 % [facility] Neutrophils (Bld) [#/Vol] 2.56 10*3/uL [facility] Neutrophils/100 WBC (Bld) 49.0 % [facility] Nucleated RBC (Bld) [#/Vol] NINF [facility] Nucleated RBC/100 WBC (Bld) [Ratio] 0.0 % /100 WBC [facility] Platelet mean volume (Bld) [Entitic vol] 9.2 fL 9.0 - 12.7 fL [facility] Platelets (Bld) [#/Vol] 323 10*3/uL [facility] RBC (Bld) [#/Vol] 4.05 10*6/uL 3.90 - 5.2 0 m/uL [facility] WBC (Bld) [#/Vol] 5.22 10*3/uL [facility] Basophils (Bld) [#/Vol] 0.05 10*3/uL Normal <0.11 [facility] Comment on above: Order Comment: Speci men Type: BLOOD SPECIMENOrdering Facility: [facility] Address: [address] [place] [address] Performed By: #### 5 7021-8 ####[facility] TIMO [facility] SYSTEMKEV [id number] [place] [address] [place] Basophils/100 WBC (Bld) 1.0 % Normal [facility] Comment on above: Order Comment: Speci men Type: BLOOD SPECIMENOrdering Facility: [facility] Address: [address] [place] [address] Performed By: #### 5 7021-8 ####[facility]ITALNC[facility] [id number] [place] [address] [place] Differential cell count method Nom (Bld) Auto Normal [facility] Comment on above: Order Comment: Speci men Type: BLOOD SPECIMENOrdering Facility: [facility] Address: [address] [place] [address] Performed By: #### 5 7021-8 ####[facility]ITALNC[facility] [id number] [place] [address] [place] Eosinophils (Bld) [#/Vol] 0.12 10*3/uL Normal <0.46 [facility] Comment on above: Order Comment: Speci men Type: BLOOD SPECIMENOrdering Facility: [facility] Address: [address] [place] [address] Performed By: #### 5 7021-8 ####[facility] HOSPITALNCA [id number] [place] [address] [place] Eosinophils/100 WBC (Bld) 2.3 % Normal [facility] Comment on above: Order Comment: Speci men Type: BLOOD SPECIMENOrdering Facility: [facility] Address: [address] [place] [address] Performed By: #### 5 7021-8 ####[facility] HOSPITALNCLIA [id number] [place] [address] [place] Erythrocyte distribution width (RBC) [Ratio] 15.7 % High 11.5-15.0 [facility] Comment on above: Order Comment: Speci men Type: BLOOD SPECIMENOrdering Facility: [facility] Address: [address] [place] [address] Performed By: #### 5 7021-8 ####[facility] JOSEPHINELIA [id number] [place] [address] [place] Hematocrit (Bld) [Volume fraction] 35.2 % Low 36.0-46.0 [facility] Comment on above: Order Comment: Speci men Type: BLOOD SPECIMENOrdering Facility: [facility] Address: [address] [place] [address] Performed By: #### 5 7021-8 ####[facility] COMM[facility] HOSPITALNCA [id number] [place] [address] [place] Hemoglobin (Bld) [Mass/Vol] 11.2 g/dL Low 11.5-15.5 [facility] Comment on above: Order Comment: Speci men Type: BLOOD SPECIMENOrdering Facility: [facility] Address: [address] [place] [address] Performed By: #### 5 7021-8 ####[facility]A [id number] [place] [address] [place] Immature granulocytes (Bld) [#/Vol] 10*3/uL Normal <0.10 [facility] Comment on above: Order Comment: Speci men Type: BLOOD SPECIMENOrdering Facility: [facility] Address: [address] [place] [address] Performed By: #### 5 7021-8 ####[facility] HOSPITALLIA [id number] [place] [address] [place] Immature granulocytes/100 WBC (Bld) 0.2 % Normal [facility] Comment on above: Order Comment: Speci men Type: BLOOD SPECIMENOrdering Facility: [facility] Address: [address] [place] [address] Performed By: #### 5 7021-8 ####[facility] DEVYNBLOOMINGTON MEADOWS HOSPITALLIA [id number] [place] [address] [place] Lymphocytes (Bld) [#/Vol] 1.93 10*3/uL Normal 1.00-4.00 [facility] Comment on above: Order Comment: Speci men Type: BLOOD SPECIMENOrdering Facility: [facility] Address: [address] [place] [address] Performed By: #### 5 7021-8 ####[facility]A [id number] [place] [address] [place] Lymphocytes/100 WBC (Bld) 37.0 % Normal [facility] Comment on above: Order Comment: Speci men Type: BLOOD SPECIMENOrdering Facility: [facility] Address: [address] [place] [address] Performed By: #### 5 7021-8 ####[facility]ITALNC[facility] [id number] [place] [address] [place] MCH (RBC) [Entitic mass] 27.7 pg Normal 26.0-34.0 [facility] Comment on above: Order Comment: Speci men Type: BLOOD SPECIMENOrdering Facility: [facility] Address: [address] [place] [address] Performed By: #### 5 7021-8 ####[facility] HOSPITALNCLI [id number] [place] [address] [place] MCHC (RBC) [Mass/Vol] 31.8 g/dL Normal 30.5-36.0 [facility] Comment on above: Order Comment: Speci men Type: BLOOD SPECIMENOrdering Facility: [facility] Address: [address] [place] [address] Performed By: #### 5 7021-8 ####[facility] HOSPITALNCLIA [id number] [place] [address] [place] MCV (RBC) [Entitic vol] 86.9 fL Normal 80.0-100.0 [facility] Comment on above: Order Comment: Speci men Type: BLOOD SPECIMENOrdering Facility: [facility] Address: [address] [place] [address] Performed By: #### 5 7021-8 ####[facility] [id number] [place] [address] [place] Monocytes (Bld) [#/Vol] 0.55 10*3/uL Normal <0.87 [facility] Comment on above: Order Comment: Speci men Type: BLOOD SPECIMENOrdering Facility: [facility] Address: [address] [place] [address] Performed By: #### 5 7021-8 ####[facility] [id number] [place] [address] [place] Monocytes/100 WBC (Bld) 10.5 % Normal [facility] Comment on above: Order Comment: Speci men Type: BLOOD SPECIMENOrdering Facility: [facility] Address: [address] [place] [address] Performed By: #### 5 7021-8 ####[facility] [id number] [place] [address] [place] Neutrophils (Bld) [#/Vol] 2.56 10*3/uL Normal 1.45-7.50 [facility] Comment on above: Order Comment: Speci men Type: BLOOD SPECIMENOrdering Facility: [facility] Address: [address] [place] [address] Performed By: #### 5 7021-8 ####[facility] [id number] [place] [address] [place] Neutrophils/100 WBC (Bld) 49.0 % Normal [facility] Comment on above: Order Comment: Speci men Type: BLOOD SPECIMENOrdering Facility: [facility] Address: [address] [place] [address] Performed By: #### 5 7021-8 ####[facility] DEVYNBEARDENNCLIA [id number] [place] [address] [place] Nucleated RBC (Bld) [#/Vol] 10*3/uL Normal <0.01 [facility] Comment on above: Order Comment: Speci men Type: BLOOD SPECIMENOrdering Facility: [facility] Address: [address] [place] [address] Performed By: #### 5 7021-8 ####[facility] HOSPITALNCA [id number] [place] [address] [place] Nucleated RBC/100 WBC (Bld) [Ratio] 0.0 /100 WBC Normal [facility] Comment on above: Order Comment: Speci men Type: BLOOD SPECIMENOrdering Facility: [facility] Address: [address] [place] [address] Performed By: #### 5 7021-8 ####[facility]OSPITALLIA [id number] [place] [address] [place] Platelet mean volume (Bld) [Entitic vol] 9.2 fL Normal 9.0-12.7 [facility] Comment on above: Order Comment: Speci men Type: BLOOD SPECIMENOrdering Facility: [facility] Address: [address] [place] [address] Performed By: #### 5 7021-8 ####[facility]OSPITALLIA [id number] [place] [address] [place] Platelets (Bld) [#/Vol] 323 10*3/uL Normal 150-400 [facility] Comment on above: Order Comment: Speci men Type: BLOOD SPECIMENOrdering Facility: [facility] Address: [address] [place] [address] Performed By: #### 5 7021-8 ####[facility] [id number] [place] [address] [place] RBC (Bld) [#/Vol] 4.05 10*6/uL Normal 3.90-5.20 [facility] Comment on above: Order Comment: Speci men Type: BLOOD SPECIMENOrdering Facility: [facility] Address: [address] [place] [address] Performed By: #### 5 7021-8 ####[facility] [id number] [place] [address] [place] WBC (Bld) [#/Vol] 5.22 10*3/uL Normal 3.70-11.00 [facility] Comment on above: Order Comment: Speci men Type: BLOOD SPECIMENOrdering Facility: [facility] Address: [address] [place] [address] Performed By: #### 5 7021-8 ####[facility] [id number] [place] [address] [place] CNOVSPon 03-20-2024 CNOVSP Normal [facility] Cancer Ag 125 Qnon Interpretation and review of laboratory results Normal [facility] Cancer Ag125 SerPl-aCncon Cancer Ag 125 Qn 38 [arb'U]/mL Normal <39 [facility] Comment on above: Order Comment: Speci men Type: BLOOD SPECIMENOrdering Facility: [facility] Address: [address] [place] [address] Result Comment: CA 1 25 test methodology used is the Electrochemiluminescence Immunoassay by [employer]. Results obtained with different methods or kits cannot be used interchangeably.The reference interval is based on the 95th percentile of 240 apparently healthy premenopausal and postmenopausal women. At a cutoff value of 65 U/mL, the test sensitivity to distinguish ovarian carcinoma (FIGO stage I to IV) versus benign gynecological disease is 79%, with a specificity of 82%.Reference: Cancer Antigen 125 (CA 125 II) [package insert V 1.0 Citizen [place]]. [facility], [place], [place] (July 2015) Performed By: #### 1 0334-1 ####[facility] LABCLIA [id number] [place] [address] [place] Comprehensive metabolic 2000 panelOrdered By: Mercedes Mckeon on 03-20-2024 Albumin [Mass/Vol] 4.1 g/dL 3.9 - 4.9 g/dL [facility] ALP [Catalytic activity/Vol] 66 U/L 34 - 123 U/L [facility] ALT [Catalytic activity/Vol] 18 U/L 7 - 38 U/L [facility] Anion gap [Moles/Vol] 7 mmol/L Low 8 - 15 mmol/L [facility] AST [Catalytic activity/Vol] 23 U/L 13 - 35 U/L [facility] Bilirubin [Mass/Vol] 0.3 mg/dL 0.2 - 1 .3 mg/dL [facility] Calcium [Mass/Vol] 9.7 mg/dL 8.5 - 10. 2 mg/dL [facility] Chloride [Moles/Vol] 106 mmol/L 98 - 10 7 mmol/L [facility] CO2 [Moles/Vol] 25 mmol/L 22 - 30 mmol/L [facility] Creatinine [Mass/Vol] 0.81 mg/dL 0.58 - 0.96 mg/dL [facility] GFR/1.73 sq M.predicted among non-blacks MDRD (S/P/Bld) [Vol rate/Area] 84 mL/min/{1.73_m2} - PINF [facility] Comment on above: Estimated Glomerular Filtration Rate (eGFR) is calculated using the 2020 CKD-EPI creatinine equation. This equation utilizes serum creatinine, sex, and age as parameters. The creatinine assay has traceable calibration to isotope dilution-mass spectrometry. Refer to KDIGO guidelines for clinical interpretation. In patients with unstable renal function, e.g. those with acute kidney injury, the eGFR may not accurately reflect actual GFR. Glucose [Mass/Vol] 105 mg/dL High 74 - 99 mg/dL [facility] Comment on above: The [place] Diabete s Association (ADA) provides guidance for cutoff values for fasting glucose and random glucose. The ADA defines fasting as no caloric intake for at least 8 hours. Fasting plasma glucose results between 100 to 125 mg/dL indicate increased risk for diabetes (prediabetes). Fasting plasma glucose results greater than or equal to 126 mg/dL meet the criteria for diagnosis of diabetes. In the absence of unequivocal hyperglycemia, results should be confirmed by repeat testing. In a patient with classic symptoms of hyperglycemia or hyperglycemic crisis, random plasma glucose results greater than or equal to 200 mg/dL meet the criteria for diagnosis of diabetes. Reference: Standards of Medical Care in Diabetes 2016, [place] Diabetes Association. Diabetes Care. 2016.39(Suppl 1). Interpretation and review of laboratory results Abnormal [facility] Potassium [Moles/Vol] 4.2 mmol/L 3.7 - 5.1 mmol/L [facility] Protein [Mass/Vol] 7.1 g/dL 6.3 - 8.0 g/dL [facility] Sodium [Moles/Vol] 138 mmol/L 136 - 144 mmol/L [facility] Urea nitrogen [Mass/Vol] 14 mg/dL 7 - 21 mg/dL [facility] Comprehensive metabolic 2000 panelon 03-20-2024 Albumin [Mass/Vol] 4.1 g/dL Normal 3.9-4.9 [facility] Comment on above: Order Comment: Speci men Type: BLOOD SPECIMENOrdering Facility: [facility] Address: [address] [place] [address] Performed By: #### 1 9123-9, 27297-7 ####[facility] [id number] [place] [address] [place] ALP [Catalytic activity/Vol] 66 U/L Normal 34-123 [facility] Comment on above: Order Comment: Speci men Type: BLOOD SPECIMENOrdering Facility: [facility] Address: [address] [id number] Performed By: #### 1 9123-9, 90365-2 ####[facility] [id number] [place] [address] [place] ALT [Catalytic activity/Vol] 18 U/L Normal 7-38 [facility] Comment on above: Order Comment: Speci men Type: BLOOD SPECIMENOrdering Facility: [facility] Address: [address] [place] [address] Performed By: #### 1 9123-9, 85253-3 ####[facility] MILLTOWIESHALIA [id number] [place] [address] [place] Anion gap [Moles/Vol] 7 mmol/L Low 8-15 [facility] Comment on above: Order Comment: Speci men Type: BLOOD SPECIMENOrdering Facility: [facility] Address: [address] [place] [address] Performed By: #### 1 9123-9, 35111-3 ####[facility] DEVYNWIESHALIA [id number] [place] [address] [place] AST [Catalytic activity/Vol] 23 U/L Normal 13-35 [facility] Comment on above: Order Comment: Speci men Type: BLOOD SPECIMENOrdering Facility: [facility] Address: [address] [place] [address] Performed By: #### 1 9123-9, 65691-3 ####[facility] DEVYNBEARDENIESHALIA [id number] [place] [address] [place] Bilirubin [Mass/Vol] 0.3 mg/dL Normal 0.2-1.3 [facility] Comment on above: Order Comment: Speci men Type: BLOOD SPECIMENOrdering [facility] Address: [address] [place] [address] Performed By: #### 1 9123-9, ####[facility] MILLWNCLIA [id number] [place] [address] [place] Calcium [Mass/Vol] 9.7 mg/dL Normal 8.5-10.2 [facility] Comment on above: Order Comment: Speci men Type: BLOOD SPECIMENOrdering Facility: [facility] Address: [address] [place] [address] Performed By: #### 1 9123-9, 33693-3 ####[facility] MILLWNCLIA [id number] [place] [address] [place] Chloride [Moles/Vol] 106 mmol/L Normal 98-107 [facility] Comment on above: Order Comment: Speci men Type: BLOOD SPECIMENOrdering Facility: [facility] Address: [address] [place] [address] Performed By: #### 1 9123-9, 64662-2 ####[facility] HOSPITALNCLIA [id number] [place] [address] [place] CO2 [Moles/Vol] 25 mmol/L Normal 22-30 [facility] Comment on above: Order Comment: Speci men Type: BLOOD SPECIMENOrdering Facility: [facility] Address: [address] [place] [address] Performed By: #### 1 9123-9, 71991-8 ####[facility] HOSPITALLIA [id number] [place] [address] [place] Creatinine [Mass/Vol] 0.81 mg/dL Normal 0.58-0.96 [facility] Comment on above: Order Comment: Speci men Type: BLOOD SPECIMENOrdering Facility: [facility] Address: [address] [place] [address] Performed By: #### 1 9123-9, 65225-2 ####[facility] HOSPITALNCLIA [id number] [place] [address] [place] [facility] Creatinine and Glomerular filtration rate.predicted panel (S/P/Bld) 84 mL/min/1.73m??? Normal >=60 [facility] Comment on above: Order Comment: Speci men Type: BLOOD SPECIMENOrdering Facility: [facility] Address: [address] [place] [address] Result Comment: Mariana mated Glomerular Filtration Rate (eGFR) is calculated using the 2020 CKD-EPI creatinine equation. This equation utilizes serum creatinine, sex, and age as parameters. The creatinine assay has traceable calibration to isotope dilution-mass spectrometry. Refer to KDIGO guidelines for clinical interpretation. In patients with unstable renal function, e.g. those with acute kidney injury, the eGFR may not accurately reflect actual GFR. Performed By: #### 1 9123-9, 49372-0 ####[facility] TIMO DEVYNMADDIEWNCLIA [id number] [place] [address] [place] Glucose [Mass/Vol] 105 mg/dL High 74-99 [facility] Comment on above: Order Comment: Tessie cox Type: BLOOD SPECIMENOrdering Facility: [facility] Address: [address] [place] [address] Result Comment: The [place] Diabetes Association (ADA) provides guidance for cutoff values for fasting glucose and random glucose. The ADA defines fasting as no caloric intake for at least 8 hours. Fasting plasma glucose results between 100 to 125 mg/dL indicate increased risk for diabetes (prediabetes).Fasting plasma glucose results greater than or equal to 126 mg/dL meet the criteria for diagnosis of diabetes. In the absence of unequivocal hyperglycemia, results should be confirmed by repeat testing. In a patient with classic symptoms of hyperglycemia or hyperglycemic crisis, random plasma glucose results greater than or equal to 200 mg/dL meet the criteria for diagnosis of diabetes.Reference: Standards of Medical Care in Diabetes 2016, [place] Diabetes Association. Diabetes Care. 2016.39(Suppl 1). Performed By: #### 1 9123-9, ####[facility] CENTERWIESHALIA [id number] [place] [address] [place] Potassium [Moles/Vol] 4.2 mmol/L Normal 3.7-5.1 [facility] Comment on above: Order Comment: Tessie cox Type: BLOOD SPECIMENOrdering Facility: [facility] Address: [address] [place] [address] Performed By: #### 1 9123-9, ####[facility] CECILIAWNCLIA [id number] [place] [address] [place] Protein [Mass/Vol] 7.1 g/dL Normal 6.3-8.0 [facility] Comment on above: Order Comment: Speci men Type: BLOOD SPECIMENOrdering Facility: [facility] Address: [address] [place] [address] Performed By: #### 1 9123-9, 23483-1 ####[facility] TIMO MILLTOWIESHALIA [id number] [place] [address] [place] Sodium [Moles/Vol] 138 mmol/L Normal 136-144 [facility] Comment on above: Order Comment: Speci men Type: BLOOD SPECIMENOrdering Facility: [facility] Address: [address] [place] [address] Performed By: #### 1 9123-9, 75499-2 ####[facility] MILLBEARDENNCLIA [id number] [place] [address] [place] Urea nitrogen [Mass/Vol] 14 mg/dL Normal 7-21 [facility] Comment on above: Order Comment: Speci men Type: BLOOD SPECIMENOrdering Facility: [facility] Address: [address] [place] [address] Performed By: #### 1 9123-9, ####[facility] MILLBEARDENNCLIA [id number] [place] [address] [place] MAGNESIUM BLDon 03-20-2024 Magnesium [Mass/Vol] 1.9 mg/dL 1.7 - 2 .3 mg/dL [facility] Magnesium SerPl-mCncon 03-20 Magnesium [Mass/Vol] 1.9 mg/dL Normal 1.7-2.3 [facility] Comment on above: Order Comment: Speci men Type: BLOOD SPECIMENOrdering Facility: [facility] Address: [address] [place] [address] Performed By: #### 1 9123-9, 61036-9 ####[facility] TIMO MILLTOWNCLIA [id number] [place] [id number] [place] Magnesium [Mass/Vol]on 03-20 Interpretation and review of laboratory results Normal [facility] No Panel Informationon 03-20 [facility] CA 125 BLDon 03-07-2024 Cancer Ag 125 Qn 44 [arb'U]/mL High NINF - 39 U/mL [facility] Comment on above: CA 125 test methodol ogy used is the Electrochemiluminescence Immunoassay by [facility] [employer]. Results obtained with different methods or kits cannot be used interchangeably. The reference interval is based on the 95th percentile of 240 apparently healthy premenopausal and postmenopausal women. At a cutoff value of 65 U/mL, the test sensitivity to distinguish ovarian carcinoma (FIGO stage I to IV) versus benign gynecological disease is 79%, with a specificity of 82%. Reference: Cancer Antigen 125 (CA 125 II) [package insert V 1.0 [place] [facility], [place], [place] (July 2015) CBC W Auto Differential pane l (Bld)on 03-07-2024 Basophils (Bld) [#/Vol] 0.03 10*3/uL [facility] Basophils/100 WBC (Bld) 0.5 % [facility] Differential cell count method Nom (Bld) Auto [facility] Eosinophils (Bld) [#/Vol] 0.17 10*3/uL [facility] Eosinophils/100 WBC (Bld) 3.1 % [facility] Erythrocyte distribution width (RBC) [Ratio] 15.2 % High 11.5 - 15.0 % [facility] Hematocrit (Bld) [Volume fraction] 33.6 % Low 36.0 - 46.0 % [facility] Hemoglobin (Bld) [Mass/Vol] 10.9 g/dL Low 11.5 - 15.5 g/dL [facility] Immature granulocytes (Bld) [#/Vol] [facility] Immature granulocytes/100 WBC (Bld) 0.4 % [facility] Interpretation and review of laboratory results Abnormal [facility] Lymphocytes (Bld) [#/Vol] 1.74 10*3/uL [facility] Lymphocytes/100 WBC (Bld) 31.8 % [facility] MCH (RBC) [Entitic mass] 28.2 pg 26.0 - 34.0 pg [facility] MCHC (RBC) [Mass/Vol] 32.4 g/dL 30.5 - 36.0 g/dL [facility] MCV (RBC) [Entitic vol] 87.0 fL 80.0 - 100.0 fL [facility] Monocytes (Bld) [#/Vol] 0.42 10*3/uL [facility] Monocytes/100 WBC (Bld) 7.7 % [facility] Neutrophils (Bld) [#/Vol] 3.09 10*3/uL [facility] Neutrophils/100 WBC (Bld) 56.5 % [facility] Nucleated RBC (Bld) [#/Vol] NINF [facility] Nucleated RBC/100 WBC (Bld) [Ratio] 0.0 % /100 WBC [facility] Platelet mean volume (Bld) [Entitic vol] 9.3 fL 9.0 - 12.7 fL [facility] Platelets (Bld) [#/Vol] 329 10*3/uL [facility] RBC (Bld) [#/Vol] 3.86 10*6/uL Low 3.90 - 5.2 0 m/uL [facility] WBC (Bld) [#/Vol] 5.47 10*3/uL [facility] Basophils (Bld) [#/Vol] 0.03 10*3/uL Normal <0.11 [facility] Comment on above: Order Comment: Speci men Type: BLOOD SPECIMENOrdering Facility: [facility] Address: [address] [place] [address] Performed By: #### 5 7021-8 ####[facility] [id number] [address] [place] Basophils/100 WBC (Bld) 0.5 % Normal [facility] Comment on above: Order Comment: Speci men Type: BLOOD SPECIMENOrdering Facility: [facility] Address: [address] [place] [address] Performed By: #### 5 7021-8 ####[facility] [id number] [place] [address] [place] Differential cell count method Nom (Bld) Auto Normal [facility] Comment on above: Order Comment: Speci men Type: BLOOD SPECIMENOrdering Facility: [facility] Address: [address] [place] [address] Performed By: #### 5 7021-8 ####[facility] [id number] [place] [address] [place] Eosinophils (Bld) [#/Vol] 0.17 10*3/uL Normal <0.46 [facility] Comment on above: Order Comment: Speci men Type: BLOOD SPECIMENOrdering Facility: [facility] Address: [address] [place] [address] Performed By: #### 5 7021-8 ####[facility] [id number] [place] [address] [place] Eosinophils/100 WBC (Bld) 3.1 % Normal [facility] Comment on above: Order Comment: Speci men Type: BLOOD SPECIMENOrdering Facility: [facility] Address: [address] [place] [address] Performed By: #### 5 7021-8 ####[facility] [id number] [place] [address] [place] Erythrocyte distribution width (RBC) [Ratio] 15.2 % High 11.5-15.0 [facility] Comment on above: Order Comment: Speci men Type: BLOOD SPECIMENOrdering Facility: [facility] Address: [address] [place] [address] Performed By: #### 5 7021-8 ####[facility] [id number] [place] [address] [place] Hematocrit (Bld) [Volume fraction] 33.6 % Low 36.0-46.0 [facility] Comment on above: Order Comment: Speci men Type: BLOOD SPECIMENOrdering Facility: [facility] Address: [address] [place] [address] Performed By: #### 5 7021-8 ####[facility] DEVYNWNCLIA [id number] [place] [address] [place] Hemoglobin (Bld) [Mass/Vol] 10.9 g/dL Low 11.5-15.5 [facility] Comment on above: Order Comment: Speci men Type: BLOOD SPECIMENOrdering Facility: [facility] Address: [address] [place] [address] Performed By: #### 5 7021-8 ####[facility] HOSPITALNCLIA [id number] [place] [address] [place] Immature granulocytes (Bld) [#/Vol] 10*3/uL Normal <0.10 [facility] Comment on above: Order Comment: Speci men Type: BLOOD SPECIMENOrdering Facility: [facility] Address: [address] [place] [address] Performed By: #### 5 7021-8 ####[facility] HOSPITALLIA [id number] [place] [address] [place] Immature granulocytes/100 WBC (Bld) 0.4 % Normal [facility] Comment on above: Order Comment: Speci men Type: BLOOD SPECIMENOrdering Facility: [facility] Address: [address] [place] [address] Performed By: #### 5 7021-8 ####[facility] CENTERWNCLIA [id number] [place] [address] [place] Lymphocytes (Bld) [#/Vol] 1.74 10*3/uL Normal 1.00-4.00 [facility] Comment on above: Order Comment: Speci men Type: BLOOD SPECIMENOrdering Facility: [facility] Address: [address] [place] [address] Performed By: #### 5 7021-8 ####[facility] HOSPITALNCLIA [id number] [place] [address] [place] Lymphocytes/100 WBC (Bld) 31.8 % Normal [facility] Comment on above: Order Comment: Speci men Type: BLOOD SPECIMENOrdering Facility: [facility] Address: [address] [place] [address] Performed By: #### 5 7021-8 ####[facility] DEVYNBEARDENKEV [id number] [place] [address] [place] MCH (RBC) [Entitic mass] 28.2 pg Normal 26.0-34.0 [facility] Comment on above: Order Comment: Speci men Type: BLOOD SPECIMENOrdering Facility: [facility] Address: [address] [place] [address] Performed By: #### 5 7021-8 ####[facility] HOSPITALIESHAASHLEY [facility] [id number] [place] [address] [place] MCHC (RBC) [Mass/Vol] 32.4 g/dL Normal 30.5-36.0 [facility] Comment on above: Order Comment: Speci men Type: BLOOD SPECIMENOrdering Facility: [facility] Address: [address] [place] [address] Performed By: #### 5 7021-8 ####[facility] HOSPITALURI [id number] [place] [address] [place] MCV (RBC) [Entitic vol] 87.0 fL Normal 80.0-100.0 [facility] Comment on above: Order Comment: Speci men Type: BLOOD SPECIMENOrdering Facility: [facility] Address: [address] [place] [address] Performed By: #### 5 7021-8 ####[facility] HOSPITALNCLI [id number] [place] [address] [place] Monocytes (Bld) [#/Vol] 0.42 10*3/uL Normal <0.87 [facility] Comment on above: Order Comment: Speci men Type: BLOOD SPECIMENOrdering Facility: [facility] Address: [address] [place] [address] Performed By: #### 5 7021-8 ####[facility] [id number] [place] [address] [place] Monocytes/100 WBC (Bld) 7.7 % Normal [facility] Comment on above: Order Comment: Speci men Type: BLOOD SPECIMENOrdering Facility: [facility] Address: [address] [place] [address] Performed By: #### 5 7021-8 ####[facility] [id number] [place] [address] [place] Neutrophils (Bld) [#/Vol] 3.09 10*3/uL Normal 1.45-7.50 [facility] Comment on above: Order Comment: Speci men Type: BLOOD SPECIMENOrdering Facility: [facility] Address: [address] [place] [address] Performed By: #### 5 7021-8 ####[facility] [id number] [place] [address] [place] Neutrophils/100 WBC (Bld) 56.5 % Normal [facility] Comment on above: Order Comment: Speci men Type: BLOOD SPECIMENOrdering Facility: [facility] Address: [address] [place] [address] Performed By: #### 5 7021-8 ####[facility] INSTITUTEA [id number] [place] [address] [place] Nucleated RBC (Bld) [#/Vol] 10*3/uL Normal <0.01 [facility] Comment on above: Order Comment: Speci men Type: BLOOD SPECIMENOrdering Facility: [facility] Address: [address] [place] [address] Performed By: #### 5 7021-8 ####[facility] DEVYNWNCLIA [id number] [place] [address] [place] Nucleated RBC/100 WBC (Bld) [Ratio] 0.0 /100 WBC Normal [facility] Comment on above: Order Comment: Speci men Type: BLOOD SPECIMENOrdering Facility: [facility] Address: [address] [place] [address] Performed By: #### 5 7021-8 ####[facility] HOSPITALNCLIA [id number] [place] [address] [place] Platelet mean volume (Bld) [Entitic vol] 9.3 fL Normal 9.0-12.7 [facility] Comment on above: Order Comment: Speci men Type: BLOOD SPECIMENOrdering Facility: [facility] Address: [address] [place] [address] Performed By: #### 5 7021-8 ####[facility] HOSPITALNCLIA [id number] [place] [address] [place] Platelets (Bld) [#/Vol] 329 10*3/uL Normal 150-400 [facility] Comment on above: Order Comment: Speci men Type: BLOOD SPECIMENOrdering Facility: [facility] Address: [address] [place] [address] Performed By: #### 5 7021-8 ####[facility] HOSPITALNCLIA [id number] [place] [address] [place] RBC (Bld) [#/Vol] 3.86 10*6/uL Low 3.90-5.20 [facility] Comment on above: Order Comment: Speci men Type: BLOOD SPECIMENOrdering Facility: [facility] Address: [address] [place] [address] Performed By: #### 5 7021-8 ####[facility] HOSPITALLIA [id number] [place] [address] [place] WBC (Bld) [#/Vol] 5.47 10*3/uL Normal 3.70-11.00 [facility] Comment on above: Order Comment: Speci men Type: BLOOD SPECIMENOrdering Facility: [facility] Address: [address] [place] [address] Performed By: #### 5 7021-8 ####[facility] [id number] [place] [address] [place] Cancer Ag 125 Qnon Interpretation and review of laboratory results Abnormal [facility] Cancer Ag125 SerPl-aCncon Cancer Ag 125 Qn 44 [arb'U]/mL High <39 [facility] Comment on above: Order Comment: Speci men Type: BLOOD SPECIMENOrdering Facility: [facility] Address: [address] [place] [address] Result Comment: CA 1 25 test methodology used is the Electrochemiluminescence Immunoassay by [employer]. Results obtained with different methods or kits cannot be used interchangeably.The reference interval is based on the 95th percentile of 240 apparently healthy premenopausal and postmenopausal women. At a cutoff value of 65 U/mL, the test sensitivity to distinguish ovarian carcinoma (FIGO stage I to IV) versus benign gynecological disease is 79%, with a specificity of 82%.Reference: Cancer Antigen 125 (CA 125 II) [package insert V 1.0 [place] [facility], [place], [place] (July 2015) Performed By: #### 1 0334-1 ####[facility] LABCLIA [id number] [place] [address] [place] Comprehensive metabolic 2000 panelOrdered By: Mercedes Mckeon on 03-07-2024 Albumin [Mass/Vol] 4.1 g/dL 3.9 - 4.9 g/dL [facility] ALP [Catalytic activity/Vol] 67 U/L 34 - 123 U/L [facility] ALT [Catalytic activity/Vol] 20 U/L 7 - 38 U/L [facility] Anion gap [Moles/Vol] 8 mmol/L Low 9 - 18 mmol/L [facility] AST [Catalytic activity/Vol] 24 U/L 13 - 35 U/L [facility] Bilirubin [Mass/Vol] 0.3 mg/dL 0.2 - 1 .3 mg/dL [facility] Calcium [Mass/Vol] 9.9 mg/dL 8.5 - 10. 2 mg/dL [facility] Chloride [Moles/Vol] 105 mmol/L 97 - 10 5 mmol/L [facility] CO2 [Moles/Vol] 26 mmol/L 22 - 30 mmol/L [facility] Creatinine [Mass/Vol] 0.74 mg/dL 0.58 - 0.96 mg/dL [facility] GFR/1.73 sq M.predicted among non-blacks MDRD (S/P/Bld) [Vol rate/Area] 94 mL/min/{1.73_m2} - PINF [facility] Comment on above: Estimated Glomerular Filtration Rate (eGFR) is calculated using the 2020 CKD-EPI creatinine equation. This equation utilizes serum creatinine, sex, and age as parameters. The creatinine assay has traceable calibration to isotope dilution-mass spectrometry. Refer to KDIGO guidelines for clinical interpretation. In patients with unstable renal function, e.g. those with acute kidney injury, the eGFR may not accurately reflect actual GFR. Glucose [Mass/Vol] 110 mg/dL High 74 - 99 mg/dL [facility] Comment on above: The [place] Diabete s Association (ADA) provides guidance for cutoff values for fasting glucose and random glucose. The ADA defines fasting as no caloric intake for at least 8 hours. Fasting plasma glucose results between 100 to 125 mg/dL indicate increased risk for diabetes (prediabetes). Fasting plasma glucose results greater than or equal to 126 mg/dL meet the criteria for diagnosis of diabetes. In the absence of unequivocal hyperglycemia, results should be confirmed by repeat testing. In a patient with classic symptoms of hyperglycemia or hyperglycemic crisis, random plasma glucose results greater than or equal to 200 mg/dL meet the criteria for diagnosis of diabetes. Reference: Standards of Medical Care in Diabetes 2016, [place] Diabetes Association. Diabetes Care. 2016.39(Suppl 1). Interpretation and review of laboratory results Abnormal [facility] Potassium [Moles/Vol] 4.2 mmol/L 3.7 - 5.1 mmol/L [facility] Protein [Mass/Vol] 7.2 g/dL 6.3 - 8.0 g/dL [facility] Sodium [Moles/Vol] 139 mmol/L 136 - 144 mmol/L [facility] Urea nitrogen [Mass/Vol] 14 mg/dL 7 - 21 mg/dL [facility] Comprehensive metabolic 2000 panelon 03-07-2024 Albumin [Mass/Vol] 4.1 g/dL Normal 3.9-4.9 [facility] Comment on above: Order Comment: Speci men Type: BLOOD SPECIMENOrdering Facility: [facility] Address: [address] [place] [address] Performed By: #### 1 9123-9, 93484-1 ####[facility]A [id number] [place] [address] [place] ALP [Catalytic activity/Vol] 67 U/L Normal 34-123 [facility] Comment on above: Order Comment: Speci men Type: BLOOD SPECIMENOrdering Facility: [facility] Address: [address] [place] [address] Performed By: #### 1 9123-9, 38354-1 ####[facility] HOSPITALLIA [id number] [place] [address] [place] ALT [Catalytic activity/Vol] 20 U/L Normal 7-38 [facility] Comment on above: Order Comment: Speci men Type: BLOOD SPECIMENOrdering Facility: [facility] Address: [address] [place] [address] Performed By: #### 1 9123-9, 55212-5 ####[facility] HOSPITALLIA [id number] [place] [address] [place] Anion gap [Moles/Vol] 8 mmol/L Low 9-18 [facility] Comment on above: Order Comment: Speci men Type: BLOOD SPECIMENOrdering Facility: [facility] Address: [address] [place] [address] Performed By: #### 1 9123-9, 36154-2 ####[facility] MILLTOWNCLIA [id number] [place] [address] [place] AST [Catalytic activity/Vol] 24 U/L Normal 13-35 [facility] Comment on above: Order Comment: Speci men Type: BLOOD SPECIMENOrdering Facility: [facility] Address: [address] [place] [address] Performed By: #### 1 9123-9, 36657-4 ####[facility] MILLTOWNCLIA [id number] [place] [address] [place] Bilirubin [Mass/Vol] 0.3 mg/dL Normal 0.2-1.3 [facility] Comment on above: Order Comment: Speci men Type: BLOOD SPECIMENOrdering Facility: [facility] Address: [address] [place] [address] Performed By: #### 1 9123-9, 73412-2 ####[facility] HOSPITALLIA [id number] [place] [address] [place] Calcium [Mass/Vol] 9.9 mg/dL Normal 8.5-10.2 [facility] Comment on above: Order Comment: Speci men Type: BLOOD SPECIMENOrdering Facility: [facility] Address: [address] [place] [address] Performed By: #### 1 9123-9, 57611-7 ####[facility] CENTERWNCLIA [id number] [place] [address] [place] Chloride [Moles/Vol] 105 mmol/L Normal 97-105 [facility] Comment on above: Order Comment: Speci men Type: BLOOD SPECIMENOrdering Facility: [facility] Address: [address] [place] [address] Performed By: #### 1 9123-9, 28238-7 ####[facility] MILLWNCLIA [id number] [place] [address] [place] CO2 [Moles/Vol] 26 mmol/L Normal 22-30 [facility] Comment on above: Order Comment: Cheyennei brooke Type: BLOOD SPECIMENOrdering Facility: [facility] Address: [address] [place] [address] Performed By: #### 1 9123-9, 78369-5 ####[facility] [id number] [place] [address] [place] Creatinine [Mass/Vol] 0.74 mg/dL Normal 0.58-0.96 [facility] Comment on above: Order Comment: Speci men Type: BLOOD SPECIMENOrdering Facility: [facility] Address: [address] [place] [address] Performed By: #### 1 9123-9, ####[facility] COMMUN[facility] HOSPITALNCLI [id number] [place] [address] [place] Creatinine and Glomerular filtration rate.predicted panel (S/P/Bld) 94 mL/min/1.73m??? Normal >=60 [facility] Comment on above: Order Comment: Tessie cox Type: BLOOD SPECIMENOrdering Facility: [facility] Address: [address] [place] [address] Result Comment: Mariana mated Glomerular Filtration Rate (eGFR) is calculated using the 2020 CKD-EPI creatinine equation. This equation utilizes serum creatinine, sex, and age as parameters. The creatinine assay has traceable calibration to isotope dilution-mass spectrometry. Refer to KDIGO guidelines for clinical interpretation. In patients with unstable renal function, e.g. those with acute kidney injury, the eGFR may not accurately reflect actual GFR. Performed By: #### 1 9123-9, ####[facility] HOSPITALNCLIA [id number] [place] [address] [place] Glucose [Mass/Vol] 110 mg/dL High 74-99 [facility] Comment on above: Order Comment: Speci men Type: BLOOD SPECIMENOrdering Facility: [facility] Address: [address] [place], [place] [address] Result Comment: The [place] Diabetes Association (ADA) provides guidance for cutoff values for fasting glucose and random glucose. The ADA defines fasting as no caloric intake for at least 8 hours. Fasting plasma glucose results between 100 to 125 mg/dL indicate increased risk for diabetes (prediabetes).Fasting plasma glucose results greater than or equal to 126 mg/dL meet the criteria for diagnosis of diabetes. In the absence of unequivocal hyperglycemia, results should be confirmed by repeat testing. In a patient with classic symptoms of hyperglycemia or hyperglycemic crisis, random plasma glucose results greater than or equal to 200 mg/dL meet the criteria for diagnosis of diabetes.Reference: Standards of Medical Care in Diabetes 2016, [place] Diabetes Association. Diabetes Care. 2016.39(Suppl 1). Performed By: #### 1 9123-9, 11697-7 ####[facility] COMM[facility] HOSPITALKEV [id number] [place] [address] [place] Potassium [Moles/Vol] 4.2 mmol/L Normal 3.7-5.1 [facility] Comment on above: Order Comment: Tessie cox Type: BLOOD SPECIMENOrdering Facility: [facility] Address: [address] [place] [address] Performed By: #### 1 9123-9, 18889-9 ####[facility] HEALTHMADDIEKEV [id number] [place] [address] [place] Protein [Mass/Vol] 7.2 g/dL Normal 6.3-8.0 [facility] Comment on above: Order Comment: Tessie cox Type: BLOOD SPECIMENOrdering Facility: [facility] Address: [address] [place], [place] [address] Performed By: #### 1 9123-9, 36935-7 ####[facility] HEALTHMADDIEWIESHALINely [id number] [place] [address] [place] Sodium [Moles/Vol] 139 mmol/L Normal 136-144 [facility] Comment on above: Order Comment: Speci men Type: BLOOD SPECIMENOrdering Facility: [facility] Address: [address] [place], [place] [address] Performed By: #### 1 9123-9, 07633-4 ####[facility]ITALNCASH[facility] [id number] [place] [address] [place] Urea nitrogen [Mass/Vol] 14 mg/dL Normal 7-21 [facility] Comment on above: Order Comment: Speci men Type: BLOOD SPECIMENOrdering Facility: [facility] Address: [address] [place] [address] Performed By: #### 1 9123-9, ####[facility] HOSPITALNCLI [id number] [place] [address] [place] MAGNESIUM BLDon 03-07-2024 Magnesium [Mass/Vol] 2.0 mg/dL 1.7 - 2 .3 mg/dL [facility] Magnesium SerPl-mCncon 03-07 Magnesium [Mass/Vol] 2.0 mg/dL Normal 1.7-2.3 [facility] Comment on above: Order Comment: Speci men Type: BLOOD SPECIMENOrdering Facility: [facility] Address: [address] [place] [address] Performed By: #### 1 9123-9, 99724-9 ####[facility] [id number] [place] [address] [place] Magnesium [Mass/Vol]on 03-07 Interpretation and review of laboratory results Normal [facility] No Panel InformationOrdered By: Mercedes Mckeon on 03-07-2024 [facility] CA 125 BLDon 02-29-2024 Cancer Ag 125 Qn 58 [arb'U]/mL High NINF - 39 U/mL [facility] Comment on above: CA 125 test methodol ogy used is the Electrochemiluminescence Immunoassay by [facility] [employer]. Results obtained with different methods or kits cannot be used interchangeably. The reference interval is based on the 95th percentile of 240 apparently healthy premenopausal and postmenopausal women. At a cutoff value of 65 U/mL, the test sensitivity to distinguish ovarian carcinoma (FIGO stage I to IV) versus benign gynecological disease is 79%, with a specificity of 82%. Reference: Cancer Antigen 125 (CA 125 II) [package insert V 1.0 [place] [facility], [place], [place] (July 2015) CBC W Auto Differential pane l (Bld)on 02-29-2024 Basophils (Bld) [#/Vol] 0.05 10*3/uL [facility] Basophils/100 WBC (Bld) 0.9 % [facility] Differential cell count method Nom (Bld) Auto [facility] Eosinophils (Bld) [#/Vol] 0.38 10*3/uL [facility] Eosinophils/100 WBC (Bld) 6.7 % [facility] Erythrocyte distribution width (RBC) [Ratio] 14.8 % 11.5 - 15.0 % [facility] Hematocrit (Bld) [Volume fraction] 34.8 % Low 36.0 - 46.0 % [facility] Hemoglobin (Bld) [Mass/Vol] 11.3 g/dL Low 11.5 - 15.5 g/dL [facility] Immature granulocytes (Bld) [#/Vol] 0.03 10*3/uL [facility] Immature granulocytes/100 WBC (Bld) 0.5 % [facility] Interpretation and review of laboratory results Abnormal [facility] Lymphocytes (Bld) [#/Vol] 1.61 10*3/uL [facility] Lymphocytes/100 WBC (Bld) 28.5 % [facility] MCH (RBC) [Entitic mass] 28.4 pg 26.0 - 34.0 pg [facility] MCHC (RBC) [Mass/Vol] 32.5 g/dL 30.5 - 36.0 g/dL [facility] MCV (RBC) [Entitic vol] 87.4 fL 80.0 - 100.0 fL [facility] Monocytes (Bld) [#/Vol] 0.56 10*3/uL [facility] Monocytes/100 WBC (Bld) 9.9 % [facility] Neutrophils (Bld) [#/Vol] 3.01 10*3/uL [facility] Neutrophils/100 WBC (Bld) 53.5 % [facility] Nucleated RBC (Bld) [#/Vol] NINF [facility] Nucleated RBC/100 WBC (Bld) [Ratio] 0.0 % /100 WBC [facility] Platelet mean volume (Bld) [Entitic vol] 9.3 fL 9.0 - 12.7 fL [facility] Platelets (Bld) [#/Vol] 285 10*3/uL [facility] RBC (Bld) [#/Vol] 3.98 10*6/uL 3.90 - 5.2 0 m/uL [facility] WBC (Bld) [#/Vol] 5.64 10*3/uL [facility] Basophils (Bld) [#/Vol] 0.05 10*3/uL Normal <0.11 [facility] Comment on above: Order Comment: Speci men Type: BLOOD SPECIMENOrdering Facility: [facility] Address: [address] [place] [address] Performed By: #### 5 7021-8 ####[facility] [id number] [place] [address] [place] Basophils/100 WBC (Bld) 0.9 % Normal [facility] Comment on above: Order Comment: Speci men Type: BLOOD SPECIMENOrdering Facility: [facility] Address: [address] [place] [address] Performed By: #### 5 7021-8 ####[facility] [id number] [place] [address] [place] Differential cell count method Nom (Bld) Auto Normal [facility] Comment on above: Order Comment: Speci men Type: BLOOD SPECIMENOrdering Facility: [facility] Address: [address] [place] [address] Performed By: #### 5 7021-8 ####[facility] HOSPITALLIA [id number] [place] [address] [place] Eosinophils (Bld) [#/Vol] 0.38 10*3/uL Normal <0.46 [facility] Comment on above: Order Comment: Speci men Type: BLOOD SPECIMENOrdering Facility: [facility] Address: [address] [place] [address] Performed By: #### 5 7021-8 ####[facility] HOSPITALNCLI [id number] [place] [address] [place] Eosinophils/100 WBC (Bld) 6.7 % Normal [facility] Comment on above: Order Comment: Speci men Type: BLOOD SPECIMENOrdering Facility: [facility] Address: [address] [place] [address] Performed By: #### 5 7021-8 ####[facility] HOSPITALNCLI [id number] [place] [address] [place] Erythrocyte distribution width (RBC) [Ratio] 14.8 % Normal 11.5-15.0 [facility] Comment on above: Order Comment: Speci men Type: BLOOD SPECIMENOrdering Facility: [facility] Address: [address] [place] [address] Performed By: #### 5 7021-8 ####[facility] HOSPITALNCLI [id number] [place] [address] [place] Hematocrit (Bld) [Volume fraction] 34.8 % Low 36.0-46.0 [facility] Comment on above: Order Comment: Speci men Type: BLOOD SPECIMENOrdering Facility: [facility] Address: [address] [place] [address] Performed By: #### 5 7021-8 ####[facility] HOSPITALNCLIA [id number] [place] [address] [place] Hemoglobin (Bld) [Mass/Vol] 11.3 g/dL Low 11.5-15.5 [facility] Comment on above: Order Comment: Speci men Type: BLOOD SPECIMENOrdering Facility: [facility] Address: [address] [place] [address] Performed By: #### 5 7021-8 ####[facility] MILLTOWNCLIA [id number] [place] [address] [place] Immature granulocytes (Bld) [#/Vol] 0.03 10*3/uL Normal <0.10 [facility] Comment on above: Order Comment: Speci men Type: BLOOD SPECIMENOrdering Facility: [facility] Address: [address] [place] [address] Performed By: #### 5 7021-8 ####[facility] MILLWNCLIA [id number] [place] [address] [place] Immature granulocytes/100 WBC (Bld) 0.5 % Normal [facility] Comment on above: Order Comment: Speci men Type: BLOOD SPECIMENOrdering Facility: [facility] Address: [address] [place] [address] Performed By: #### 5 7021-8 ####[facility] HOSPITALNCLIA [id number] [place] [address] [place] Lymphocytes (Bld) [#/Vol] 1.61 10*3/uL Normal 1.00-4.00 [facility] Comment on above: Order Comment: Speci men Type: BLOOD SPECIMENOrdering Facility: [facility] Address: [address] [place] [address] Performed By: #### 5 7021-8 ####[facility] MILLTOWNCLIA [id number] [place] [address] [place] Lymphocytes/100 WBC (Bld) 28.5 % Normal [facility] Comment on above: Order Comment: Speci men Type: BLOOD SPECIMENOrdering Facility: [facility] Address: [address] [place] [address] Performed By: #### 5 7021-8 ####[facility] MILLTOWNCLIA [id number] [place] [address] [place] MCH (RBC) [Entitic mass] 28.4 pg Normal 26.0-34.0 [facility] Comment on above: Order Comment: Speci men Type: BLOOD SPECIMENOrdering Facility: [facility] Address: [address] [place] [address] Performed By: #### 5 7021-8 ####[facility] HOSPITALIESHAASHLEY [facility] [id number] [address] [place] MCHC (RBC) [Mass/Vol] 32.5 g/dL Normal 30.5-36.0 [facility] Comment on above: Order Comment: Speci men Type: BLOOD SPECIMENOrdering Facility: [facility] Address: [address] [place] [address] Performed By: #### 5 7021-8 ####[facility] [id number] [address] [place] MCV (RBC) [Entitic vol] 87.4 fL Normal 80.0-100.0 [facility] Comment on above: Order Comment: Speci men Type: BLOOD SPECIMENOrdering Facility: [facility] Address: [address] [place] [address] Performed By: #### 5 7021-8 ####[facility] HOSPITALIESHANely [id number] [place] [address] [place] Monocytes (Bld) [#/Vol] 0.56 10*3/uL Normal <0.87 [facility] Comment on above: Order Comment: Speci men Type: BLOOD SPECIMENOrdering Facility: [facility] Address: [address] [place] [address] Performed By: #### 5 7021-8 ####[facility] HOSPITALNCASH[facility] [id number] [place] [address] [place] Monocytes/100 WBC (Bld) 9.9 % Normal [facility] Comment on above: Order Comment: Speci men Type: BLOOD SPECIMENOrdering Facility: [facility] Address: [address] [place] [address] Performed By: #### 5 7021-8 ####[facility] HOSPITALNCLIA [id number] [place] [address] [place] Neutrophils (Bld) [#/Vol] 3.01 10*3/uL Normal 1.45-7.50 [facility] Comment on above: Order Comment: Speci men Type: BLOOD SPECIMENOrdering Facility: [facility] Address: [address] [place] [address] Performed By: #### 5 7021-8 ####[facility] [id number] [place] [address] [place] Neutrophils/100 WBC (Bld) 53.5 % Normal [facility] Comment on above: Order Comment: Speci men Type: BLOOD SPECIMENOrdering Facility: [facility] Address: [address] [place] [address] Performed By: #### 5 7021-8 ####[facility]STITUTEA [id number] [place] [address] [place] Nucleated RBC (Bld) [#/Vol] 10*3/uL Normal <0.01 [facility] Comment on above: Order Comment: Speci men Type: BLOOD SPECIMENOrdering Facility: [facility] Address: [address] [place] [address] Performed By: #### 5 7021-8 ####[facility]STITUTEA [id number] [place] [address] [place] Nucleated RBC/100 WBC (Bld) [Ratio] 0.0 /100 WBC Normal [facility] Comment on above: Order Comment: Speci men Type: BLOOD SPECIMENOrdering Facility: [facility] Address: [address] [place] [address] Performed By: #### 5 7021-8 ####[facility] DEVYNMadeleineNCLIA [id number] [place] [address] [place] Platelet mean volume (Bld) [Entitic vol] 9.3 fL Normal 9.0-12.7 [facility] Comment on above: Order Comment: Speci men Type: BLOOD SPECIMENOrdering Facility: [facility] Address: [address] [place], [place] [address] Performed By: #### 5 7021-8 ####[facility] HOSPITALNCLIA [id number] [place] [address] [place] Platelets (Bld) [#/Vol] 285 10*3/uL Normal 150-400 [facility] Comment on above: Order Comment: Speci men Type: BLOOD SPECIMENOrdering Facility: [facility] Address: [address] [place], [place] [address] Performed By: #### 5 7021-8 ####[facility] HOSPITALNCLIA [id number] [place] [address] [place] RBC (Bld) [#/Vol] 3.98 10*6/uL Normal 3.90-5.20 [facility] Comment on above: Order Comment: Speci men Type: BLOOD SPECIMENOrdering Facility: [facility] Address: [address] [place] [address] Performed By: #### 5 7021-8 ####[facility] HOSPITALNCLIA [id number] [place] [address] [place] WBC (Bld) [#/Vol] 5.64 10*3/uL Normal 3.70-11.00 [facility] Comment on above: Order Comment: Speci men Type: BLOOD SPECIMENOrdering Facility: [facility] Address: [address] [place], [place] [address] Performed By: #### 5 7021-8 ####[facility] CENTERWNCLIA [id number] [place] [address] [place] Cancer Ag 125 Qnon Interpretation and review of laboratory results Abnormal [facility] Cancer Ag125 SerPl-aCncon Cancer Ag 125 Qn 58 [arb'U]/mL High <39 [facility] Comment on above: Order Comment: Speci men Type: BLOOD SPECIMENOrdering Facility: [facility] Address: [address] [place] [address] Result Comment: CA 1 25 test methodology used is the Electrochemiluminescence Immunoassay by [employer]. Results obtained with different methods or kits cannot be used interchangeably.The reference interval is based on the 95th percentile of 240 apparently healthy premenopausal and postmenopausal women. At a cutoff value of 65 U/mL, the test sensitivity to distinguish ovarian carcinoma (FIGO stage I to IV) versus benign gynecological disease is 79%, with a specificity of 82%.Reference: Cancer Antigen 125 (CA 125 II) [package insert V 1.0 [place]]. [facility], [place], [place] (July 2015) Performed By: #### 1 0334-1 ####[facility] LABCLIA [id number] [place] [address] [place] Comprehensive metabolic 2000 panelon 02-29-2024 Albumin [Mass/Vol] 4.0 g/dL 3.9 - 4.9 g/dL [facility] ALP [Catalytic activity/Vol] 75 U/L 34 - 123 U/L [facility] ALT With P-5'-P [Catalytic activity/Vol] 29 U/L 7 - 38 U/L [facility] Anion gap [Moles/Vol] 9 mmol/L 9 - 18 mmol/L [facility] AST With P-5'-P [Catalytic activity/Vol] 34 U/L 13 - 35 U/L [facility] Bilirubin [Mass/Vol] 0.2 mg/dL 0.2 - 1 .3 mg/dL [facility] Calcium [Mass/Vol] 9.5 mg/dL 8.5 - 10. 2 mg/dL [facility] Chloride [Moles/Vol] 104 mmol/L 97 - 10 5 mmol/L [facility] CO2 [Moles/Vol] 26 mmol/L 22 - 30 mmol/L [facility] Creatinine [Mass/Vol] 0.80 mg/dL 0.58 - 0.96 mg/dL [facility] GFR/1.73 sq M.predicted among non-blacks MDRD (S/P/Bld) [Vol rate/Area] 86 mL/min/{1.73_m2} - PINF [facility] Comment on above: Estimated Glomerular Filtration Rate (eGFR) is calculated using the 2020 CKD-EPI creatinine equation. This equation utilizes serum creatinine, sex, and age as parameters. The creatinine assay has traceable calibration to isotope dilution-mass spectrometry. Refer to KDIGO guidelines for clinical interpretation. In patients with unstable renal function, e.g. those with acute kidney injury, the eGFR may not accurately reflect actual GFR. Glucose [Mass/Vol] 120 mg/dL High 74 - 99 mg/dL [facility] Comment on above: The [place] Diabete s Association (ADA) provides guidance for cutoff values for fasting glucose and random glucose. The ADA defines fasting as no caloric intake for at least 8 hours. Fasting plasma glucose results between 100 to 125 mg/dL indicate increased risk for diabetes (prediabetes). Fasting plasma glucose results greater than or equal to 126 mg/dL meet the criteria for diagnosis of diabetes. In the absence of unequivocal hyperglycemia, results should be confirmed by repeat testing. In a patient with classic symptoms of hyperglycemia or hyperglycemic crisis, random plasma glucose results greater than or equal to 200 mg/dL meet the criteria for diagnosis of diabetes. Reference: Standards of Medical Care in Diabetes 2016, [place] Diabetes Association. Diabetes Care. 2016.39(Suppl 1). Interpretation and review of laboratory results Abnormal [facility] Potassium [Moles/Vol] 4.5 mmol/L 3.7 - 5.1 mmol/L [facility] Protein [Mass/Vol] 7.3 g/dL 6.3 - 8.0 g/dL [facility] Sodium [Moles/Vol] 139 mmol/L 136 - 144 mmol/L [facility] Urea nitrogen [Mass/Vol] 13 mg/dL 7 - 21 mg/dL [facility] Albumin [Mass/Vol] 4.0 g/dL Normal 3.9-4.9 [facility] Comment on above: Order Comment: Speci men Type: BLOOD SPECIMENOrdering Facility: [facility] Address: [address] [place], [place] [address] Performed By: #### 2 4323-8, ####[facility] [place] LABCLIA [id number] [facility] [place] [address] [place] ALP [Catalytic activity/Vol] 75 U/L Normal 34-123 [facility] Comment on above: Order Comment: Speci men Type: BLOOD SPECIMENOrdering Facility: [facility] Address: [address] [place] [address] Performed By: #### 2 432-8, ####[facility] [place] LABCLIA [id number] [facility] [address] [place] ALT With P-5'-P [Catalytic activity/Vol] 29 U/L Normal 7-38 [facility] Comment on above: Order Comment: Speci men Type: BLOOD SPECIMENOrdering Facility: [facility] Address: [address] [place] [address] Performed By: #### 2 432-8, ####[facility] [place] LABCLIA [id number] [facility] [place] [address] [place] Anion gap [Moles/Vol] 9 mmol/L Normal 9-18 [facility] Comment on above: Order Comment: Speci men Type: BLOOD SPECIMENOrdering Facility: [facility] Address: [address] [place] [address] Performed By: #### 2 4323-8, ####[facility] [place] LABCLIA [id number] [facility] [address] [place] AST With P-5'-P [Catalytic activity/Vol] 34 U/L Normal 13-35 [facility] Comment on above: Order Comment: Speci men Type: BLOOD SPECIMENOrdering Facility: [facility] Address: [address] [place], [place] [address] Performed By: #### 2 4323-8, ####[facility] [place] LABCLIA [id number] [place] [address] [place] Bilirubin [Mass/Vol] 0.2 mg/dL Normal 0.2-1.3 [facility] Comment on above: Order Comment: Speci men Type: BLOOD SPECIMENOrdering Facility: [facility] Address: [address] [place] [address] Performed By: #### 2 4323-8, ####[facility] [place] LABCLIA [id number] [place] [address] [place] Calcium [Mass/Vol] 9.5 mg/dL Normal 8.5-10.2 [facility] Comment on above: Order Comment: Speci men Type: BLOOD SPECIMENOrdering Facility: [facility] Address: [address] [place] [address] Performed By: #### 2 4323-8, ####[facility] [place] LABCLIA [id number] [place] [address] [place] Chloride [Moles/Vol] 104 mmol/L Normal 97-105 [facility] Comment on above: Order Comment: Speci men Type: BLOOD SPECIMENOrdering Facility: [facility] Address: [address] [place] [address] Performed By: #### 2 4323-8, ####[facility] [place] LABCLIA [id number] [place] [address] [place] CO2 [Moles/Vol] 26 mmol/L Normal 22-30 [facility] Comment on above: Order Comment: Speci men Type: BLOOD SPECIMENOrdering Facility: [facility] Address: [address] [place], [place] [address] Performed By: #### 2 4323-8, ####[facility] LABCLIA [id number] [place] [address] [place] Creatinine [Mass/Vol] 0.80 mg/dL Normal 0.58-0.96 [facility] Comment on above: Order Comment: Speci men Type: BLOOD SPECIMENOrdering Facility: [facility] Address: [address] [place] [address] Performed By: #### 2 4323-8, ####[facility] LABCLIA [id number] [place] [address] [place] Creatinine and Glomerular filtration rate.predicted panel (S/P/Bld) 86 mL/min/1.73m??? Normal >=60 [facility] Comment on above: Order Comment: Tessie cox Type: BLOOD SPECIMENOrdering Facility: [facility] Address: [address] [place] [address] Result Comment: Mariana mated Glomerular Filtration Rate (eGFR) is calculated using the 2020 CKD-EPI creatinine equation. This equation utilizes serum creatinine, sex, and age as parameters. The creatinine assay has traceable calibration to isotope dilution-mass spectrometry. Refer to KDIGO guidelines for clinical interpretation. In patients with unstable renal function, e.g. those with acute kidney injury, the eGFR may not accurately reflect actual GFR. Performed By: #### 2 4323-8, ####[facility] LABIA [id number] [place] [address] [place] Glucose [Mass/Vol] 120 mg/dL High 74-99 [facility] Comment on above: Order Comment: Tessie brooke Type: BLOOD SPECIMENOrdering Facility: [facility] Address: [address] [place] [address] Result Comment: The [place] Diabetes Association (ADA) provides guidance for cutoff values for fasting glucose and random glucose. The ADA defines fasting as no caloric intake for at least 8 hours. Fasting plasma glucose results between 100 to 125 mg/dL indicate increased risk for diabetes (prediabetes).Fasting plasma glucose results greater than or equal to 126 mg/dL meet the criteria for diagnosis of diabetes. In the absence of unequivocal hyperglycemia, results should be confirmed by repeat testing. In a patient with classic symptoms of hyperglycemia or hyperglycemic crisis, random plasma glucose results greater than or equal to 200 mg/dL meet the criteria for diagnosis of diabetes.Reference: Standards of Medical Care in Diabetes 2016, [place] Diabetes Association. Diabetes Care. 2016.39(Suppl 1). Performed By: #### 2 4323-8, ####[facility] [place] LABCLIA [id number] [place] [address] [place] Potassium [Moles/Vol] 4.5 mmol/L Normal 3.7-5.1 [facility] Comment on above: Order Comment: Speci men Type: BLOOD SPECIMENOrdering Facility: [facility] Address: [address] [place] [address] Performed By: #### 2 432-8, ####[facility] [place] LABCLIA [id number] [place] [address] [place] Protein [Mass/Vol] 7.3 g/dL Normal 6.3-8.0 [facility] Comment on above: Order Comment: Speci men Type: BLOOD SPECIMENOrdering Facility: [facility] Address: [address] [place] [address] Performed By: #### 2 43212-21, ####[facility] [place] LABCLIA [id number] [place] [address] [place] Sodium [Moles/Vol] 139 mmol/L Normal 136-144 [facility] Comment on above: Order Comment: Speci men Type: BLOOD SPECIMENOrdering Facility: [facility] Address: [address] [place] [address] Performed By: #### 2 4328, ####[facility] [place] LABCLIA [id number] [place] [address] [place] Urea nitrogen [Mass/Vol] 13 mg/dL Normal 7-21 [facility] Comment on above: Order Comment: Speci men Type: BLOOD SPECIMENOrdering Facility: [facility] Address: [address] [place] [address] Performed By: #### 2 4323-8, ####[facility] [place] LABCLIA [id number] [place] [address] [place] MAGNESIUM BLDon 02-29-2024 Magnesium [Mass/Vol] 1.8 mg/dL 1.7 - 2 .3 mg/dL [facility] Magnesium SerPl-mCncon 02-28 Magnesium [Mass/Vol] 1.8 mg/dL Normal 1.7-2.3 [facility] Comment on above: Order Comment: Speci men Type: BLOOD SPECIMENOrdering Facility: [facility] Address: [address] [place] [address] Performed By: #### 2 4323-8, 17846-0 ####[facility] LABCLIA [id number] [place] [address] [place] Magnesium [Mass/Vol]on 02-28 Interpretation and review of laboratory results Normal [facility] No Panel Informationon 02-28 [facility] CBC W Auto Differential pane l (Bld)on 02-21-2024 Basophils (Bld) [#/Vol] 0.05 10*3/uL [facility] Basophils/100 WBC (Bld) 0.7 % [facility] Differential cell count method Nom (Bld) Auto [facility] Eosinophils (Bld) [#/Vol] 0.12 10*3/uL [facility] Eosinophils/100 WBC (Bld) 1.6 % [facility] Erythrocyte distribution width (RBC) [Ratio] 15.1 % High 11.5 - 15.0 % [facility] Hematocrit (Bld) [Volume fraction] 35.5 % Low 36.0 - 46.0 % [facility] Hemoglobin (Bld) [Mass/Vol] 11.3 g/dL Low 11.5 - 15.5 g/dL [facility] Immature granulocytes (Bld) [#/Vol] 0.03 10*3/uL [facility] Immature granulocytes/100 WBC (Bld) 0.4 % [facility] Interpretation and review of laboratory results Abnormal [facility] Lymphocytes (Bld) [#/Vol] 1.77 10*3/uL [facility] Lymphocytes/100 WBC (Bld) 23.1 % [facility] MCH (RBC) [Entitic mass] 28.0 pg 26.0 - 34.0 pg [facility] MCHC (RBC) [Mass/Vol] 31.8 g/dL 30.5 - 36.0 g/dL [facility] MCV (RBC) [Entitic vol] 88.1 fL 80.0 - 100.0 fL [facility] Monocytes (Bld) [#/Vol] 0.82 10*3/uL [facility] Monocytes/100 WBC (Bld) 10.7 % [facility] Neutrophils (Bld) [#/Vol] 4.86 10*3/uL [facility] Neutrophils/100 WBC (Bld) 63.5 % [facility] Nucleated RBC (Bld) [#/Vol] NINF [facility] Nucleated RBC/100 WBC (Bld) [Ratio] 0.0 % /100 WBC [facility] Platelet mean volume (Bld) [Entitic vol] 9.2 fL 9.0 - 12.7 fL [facility] Platelets (Bld) [#/Vol] 328 10*3/uL [facility] RBC (Bld) [#/Vol] 4.03 10*6/uL 3.90 - 5.2 0 m/uL [facility] WBC (Bld) [#/Vol] 7.65 10*3/uL [facility] Basophils (Bld) [#/Vol] 0.05 10*3/uL Normal <0.11 [facility] Comment on above: Order Comment: Speci men Type: BLOOD SPECIMENOrdering Facility: [facility] Address: [address] [place] [address] Performed By: #### 5 7021-8 ####[facility] [id number] [place] [address] [place] Basophils/100 WBC (Bld) 0.7 % Normal [facility] Comment on above: Order Comment: Speci men Type: BLOOD SPECIMENOrdering Facility: [facility] Address: [address] [place] [address] Performed By: #### 5 7021-8 ####[facility] [id number] [place] [address] [place] Differential cell count method Nom (Bld) Auto Normal [facility] Comment on above: Order Comment: Speci men Type: BLOOD SPECIMENOrdering Facility: [facility] Address: [address] [place] [address] Performed By: #### 5 7021-8 ####[facility] DEVYNNALLELYTERESANely [id number] [place] [address] [place] Eosinophils (Bld) [#/Vol] 0.12 10*3/uL Normal <0.46 [facility] Comment on above: Order Comment: Speci men Type: BLOOD SPECIMENOrdering Facility: [facility] Address: [address] [place] [address] Performed By: #### 5 7021-8 ####[facility] HOSPITALKEV [id number] [place] [address] [place] Eosinophils/100 WBC (Bld) 1.6 % Normal [facility] Comment on above: Order Comment: Speci men Type: BLOOD SPECIMENOrdering Facility: [facility] Address: [address] [place] [address] Performed By: #### 5 7021-8 ####[facility] COMMUN[facility] HOSPITALNCLINely [id number] [place] [address] [place] Erythrocyte distribution width (RBC) [Ratio] 15.1 % High 11.5-15.0 [facility] Comment on above: Order Comment: Speci men Type: BLOOD SPECIMENOrdering Facility: [facility] Address: [address] [place] [address] Performed By: #### 5 7021-8 ####[facility] HOSPITALNCLIA [id number] [place] [address] [place] Hematocrit (Bld) [Volume fraction] 35.5 % Low 36.0-46.0 [facility] Comment on above: Order Comment: Speci men Type: BLOOD SPECIMENOrdering Facility: [facility] Address: [address] [place] [address] Performed By: #### 5 7021-8 ####[facility] HOSPITALNCLIA [id number] [place] [address] [place] Hemoglobin (Bld) [Mass/Vol] 11.3 g/dL Low 11.5-15.5 [facility] Comment on above: Order Comment: Speci men Type: BLOOD SPECIMENOrdering Facility: [facility] Address: [address] [place] [address] Performed By: #### 5 7021-8 ####[facility] COMM[facility] HOSPITALNCA [id number] [place] [address] [place] Immature granulocytes (Bld) [#/Vol] 0.03 10*3/uL Normal <0.10 [facility] Comment on above: Order Comment: Speci men Type: BLOOD SPECIMENOrdering Facility: [facility] Address: [address] [place] [address] Performed By: #### 5 7021-8 ####[facility]STITUTEA [id number] [place] [address] [place] Immature granulocytes/100 WBC (Bld) 0.4 % Normal [facility] Comment on above: Order Comment: Speci men Type: BLOOD SPECIMENOrdering Facility: [facility] Address: [address] [place] [address] Performed By: #### 5 7021-8 ####[facility]PITALLIA [id number] [place] [address] [place] Lymphocytes (Bld) [#/Vol] 1.77 10*3/uL Normal 1.00-4.00 [facility] Comment on above: Order Comment: Speci men Type: BLOOD SPECIMENOrdering Facility: [facility] Address: [address] [place] [address] Performed By: #### 5 7021-8 ####[facility] HOSPITALNCLI [id number] [place] [address] [place] Lymphocytes/100 WBC (Bld) 23.1 % Normal [facility] Comment on above: Order Comment: Speci men Type: BLOOD SPECIMENOrdering Facility: [facility] Address: [address] [place] [address] Performed By: #### 5 7021-8 ####[facility] HOSPITALKEV [id number] [place] [address] [place] MCH (RBC) [Entitic mass] 28.0 pg Normal 26.0-34.0 [facility] Comment on above: Order Comment: Speci men Type: BLOOD SPECIMENOrdering Facility: [facility] Address: [address] [place] [address] Performed By: #### 5 7021-8 ####[facility] HOSPITALKEV [id number] [place] [address] [place] MCHC (RBC) [Mass/Vol] 31.8 g/dL Normal 30.5-36.0 [facility] Comment on above: Order Comment: Speci men Type: BLOOD SPECIMENOrdering Facility: [facility] Address: [address] [place] [address] Performed By: #### 5 7021-8 ####[facility] HOSPITALNCTERESA [id number] [place] [address] [place] MCV (RBC) [Entitic vol] 88.1 fL Normal 80.0-100.0 [facility] Comment on above: Order Comment: Speci men Type: BLOOD SPECIMENOrdering Facility: [facility] Address: [address] [place] [address] Performed By: #### 5 7021-8 ####[facility] HOSPITALNCLIA [id number] [place] [address] [place] Monocytes (Bld) [#/Vol] 0.82 10*3/uL Normal <0.87 [facility] Comment on above: Order Comment: Speci men Type: BLOOD SPECIMENOrdering Facility: [facility] Address: [address] [place] [address] Performed By: #### 5 7021-8 ####[facility] HOSPITALNCLIA [id number] [place] [address] [place] Monocytes/100 WBC (Bld) 10.7 % Normal [facility] Comment on above: Order Comment: Speci men Type: BLOOD SPECIMENOrdering Facility: [facility] Address: [address] [place] [address] Performed By: #### 5 7021-8 ####[facility] HOSPITALNCA [id number] [place] [address] [place] Neutrophils (Bld) [#/Vol] 4.86 10*3/uL Normal 1.45-7.50 [facility] Comment on above: Order Comment: Speci men Type: BLOOD SPECIMENOrdering Facility: [facility] Address: [address] [place] [address] Performed By: #### 5 7021-8 ####[facility]STITUTEA [id number] [place] [address] [place] Neutrophils/100 WBC (Bld) 63.5 % Normal [facility] Comment on above: Order Comment: Speci men Type: BLOOD SPECIMENOrdering Facility: [facility] Address: [address] [place] [address] Performed By: #### 5 7021-8 ####[facility] HOSPITALLIA [id number] [place] [address] [place] Nucleated RBC (Bld) [#/Vol] 10*3/uL Normal <0.01 [facility] Comment on above: Order Comment: Speci men Type: BLOOD SPECIMENOrdering Facility: [facility] Address: [address] [place] [address] Performed By: #### 5 7021-8 ####[facility] HOSPITALNCLIA [id number] [place] [address] [place] Nucleated RBC/100 WBC (Bld) [Ratio] 0.0 /100 WBC Normal [facility] Comment on above: Order Comment: Speci men Type: BLOOD SPECIMENOrdering Facility: [facility] Address: [address] [place] [address] Performed By: #### 5 7021-8 ####[facility] HOSPITALLIA [id number] [place] [address] [place] Platelet mean volume (Bld) [Entitic vol] 9.2 fL Normal 9.0-12.7 [facility] Comment on above: Order Comment: Speci men Type: BLOOD SPECIMENOrdering Facility: [facility] Address: [address] [place], [place] [address] Performed By: #### 5 7021-8 ####[facility] [id number] [place] [address] [place] Platelets (Bld) [#/Vol] 328 10*3/uL Normal 150-400 [facility] Comment on above: Order Comment: Speci men Type: BLOOD SPECIMENOrdering Facility: [facility] Address: [address] [place] [address] Performed By: #### 5 7021-8 ####[facility] HOSPITALLIA [id number] [place] [address] [place] RBC (Bld) [#/Vol] 4.03 10*6/uL Normal 3.90-5.20 [facility] Comment on above: Order Comment: Speci men Type: BLOOD SPECIMENOrdering Facility: [facility] Address: [address] [place] [address] Performed By: #### 5 7021-8 ####[facility] [id number] [place] [id number] [place] WBC (Bld) [#/Vol] 7.65 10*3/uL Normal 3.70-11.00 [facility] Comment on above: Order Comment: Speci men Type: BLOOD SPECIMENOrdering Facility: [facility] Address: [address] [place] [address] Performed By: #### 5 7021-8 ####[facility] SYSTEMNCLIA [id number] [place] [id number] [place] CNOVSPon 02-21-2024 CNOVSP Normal [facility] Cancer Ag125 SerPl-aCncon Cancer Ag 125 Qn 77 [arb'U]/mL High <39 [facility] Comment on above: Order Comment: Speci men Type: BLOOD SPECIMENOrdering Facility: [facility] Address: [address] [place] [address] Result Comment: CA 1 25 test methodology used is the Electrochemiluminescence Immunoassay by [employer]. Results obtained with different methods or kits cannot be used interchangeably.The reference interval is based on the 95th percentile of 240 apparently healthy premenopausal and postmenopausal women. At a cutoff value of 65 U/mL, the test sensitivity to distinguish ovarian carcinoma (FIGO stage I to IV) versus benign gynecological disease is 79%, with a specificity of 82%.Reference: Cancer Antigen 125 (CA 125 II) [package insert V 1.0 [place]]. [employer], [place], [place] (July 2015) Performed By: #### 1 0334-1 ####[facility] LABCLIA [id number] [place] [address] [place] Comprehensive metabolic 2000 panelOrdered By: Marium Vu on 02-21-2024 Albumin [Mass/Vol] 4.0 g/dL 3.9 - 4.9 g/dL [facility] ALP [Catalytic activity/Vol] 68 U/L 34 - 123 U/L [facility] ALT [Catalytic activity/Vol] 17 U/L 7 - 38 U/L [facility] Anion gap [Moles/Vol] 7 mmol/L Low 9 - 18 mmol/L [facility] AST [Catalytic activity/Vol] 20 U/L 13 - 35 U/L [facility] Bilirubin [Mass/Vol] 0.2 mg/dL 0.2 - 1 .3 mg/dL [facility] Calcium [Mass/Vol] 9.8 mg/dL 8.5 - 10. 2 mg/dL [facility] Chloride [Moles/Vol] 105 mmol/L 97 - 10 5 mmol/L [facility] CO2 [Moles/Vol] 27 mmol/L 22 - 30 mmol/L [facility] Creatinine [Mass/Vol] 0.78 mg/dL 0.58 - 0.96 mg/dL [facility] GFR/1.73 sq M.predicted among non-blacks MDRD (S/P/Bld) [Vol rate/Area] 88 mL/min/{1.73_m2} - PINF [facility] Comment on above: Estimated Glomerular Filtration Rate (eGFR) is calculated using the 2020 CKD-EPI creatinine equation. This equation utilizes serum creatinine, sex, and age as parameters. The creatinine assay has traceable calibration to isotope dilution-mass spectrometry. Refer to KDIGO guidelines for clinical interpretation. In patients with unstable renal function, e.g. those with acute kidney injury, the eGFR may not accurately reflect actual GFR. Glucose [Mass/Vol] 109 mg/dL High 74 - 99 mg/dL [facility] Comment on above: The [place] Diabete s Association (ADA) provides guidance for cutoff values for fasting glucose and random glucose. The ADA defines fasting as no caloric intake for at least 8 hours. Fasting plasma glucose results between 100 to 125 mg/dL indicate increased risk for diabetes (prediabetes). Fasting plasma glucose results greater than or equal to 126 mg/dL meet the criteria for diagnosis of diabetes. In the absence of unequivocal hyperglycemia, results should be confirmed by repeat testing. In a patient with classic symptoms of hyperglycemia or hyperglycemic crisis, random plasma glucose results greater than or equal to 200 mg/dL meet the criteria for diagnosis of diabetes. Reference: Standards of Medical Care in Diabetes 2016, [place] Diabetes Association. Diabetes Care. 2016.39(Suppl 1). Interpretation and review of laboratory results Abnormal [facility] Potassium [Moles/Vol] 4.4 mmol/L 3.7 - 5.1 mmol/L [facility] Protein [Mass/Vol] 7.3 g/dL 6.3 - 8.0 g/dL [facility] Sodium [Moles/Vol] 139 mmol/L 136 - 144 mmol/L [facility] Urea nitrogen [Mass/Vol] 14 mg/dL 7 - 21 mg/dL [facility] Comprehensive metabolic 2000 panelon 02-21-2024 Albumin [Mass/Vol] 4.0 g/dL Normal 3.9-4.9 [facility] Comment on above: Order Comment: Speci men Type: BLOOD SPECIMENOrdering Facility: [facility] Address: [address] [place] [address] Performed By: #### 2 4323-8, 37491-5 ####[facility] MILLWIESHALIA [id number] [place] [address] [place] ALP [Catalytic activity/Vol] 68 U/L Normal 34-123 [facility] Comment on above: Order Comment: Speci men Type: BLOOD SPECIMENOrdering Facility: [facility] Address: [address] [place] [address] Performed By: #### 2 4323-8, ####[facility] HOSPITALLIA [id number] [place] [address] [place] ALT [Catalytic activity/Vol] 17 U/L Normal 7-38 [facility] Comment on above: Order Comment: Speci men Type: BLOOD SPECIMENOrdering Facility: [facility] Address: [address] [place] [address] Performed By: #### 2 4323-8, ####[facility] MILLWNCLIA [id number] [place] [address] [place] Anion gap [Moles/Vol] 7 mmol/L Low 9-18 [facility] Comment on above: Order Comment: Speci men Type: BLOOD SPECIMENOrdering Facility: [facility] Address: [address] [place] [address] Performed By: #### 2 4323-8, 96422-6 ####[facility] MILLTOWNCLIA [id number] [place] [address] [place] AST [Catalytic activity/Vol] 20 U/L Normal 13-35 [facility] Comment on above: Order Comment: Speci men Type: BLOOD SPECIMENOrdering Facility: [facility] Address: [address] [place] [address] Performed By: #### 2 4323-8, ####[facility] MILLTOWNCLIA [id number] [place] [address] [place] Bilirubin [Mass/Vol] 0.2 mg/dL Normal 0.2-1.3 [facility] Comment on above: Order Comment: Speci men Type: BLOOD SPECIMENOrdering Facility: [facility] Address: [address] [place] [address] Performed By: #### 2 4323-8, ####[facility] HOSPITALNCLIA [id number] [place] [address] [place] Calcium [Mass/Vol] 9.8 mg/dL Normal 8.5-10.2 [facility] Comment on above: Order Comment: Speci men Type: BLOOD SPECIMENOrdering Facility: [facility] Address: [address] [place] [address] Performed By: #### 2 4323-8, ####[facility] CENTERWIESHALIA [id number] [place] [address] [place] Chloride [Moles/Vol] 105 mmol/L Normal 97-105 [facility] Comment on above: Order Comment: Speci men Type: BLOOD SPECIMENOrdering Facility: [facility] Address: [address] [place] [address] Performed By: #### 2 4323-8, ####[facility] MILLWIESHALIA [id number] [place] [id number] [place] CO2 [Moles/Vol] 27 mmol/L Normal 22-30 [facility] Comment on above: Order Comment: Cheyennei men Type: BLOOD SPECIMENOrdering Facility: [facility] Address: [address] [place] [address] Performed By: #### 2 4323-8, 39338-7 ####[facility] COMM[facility]ITY HOSPITALNCURI [id number] [place] [address] [place] Creatinine [Mass/Vol] 0.78 mg/dL Normal 0.58-0.96 [facility] Comment on above: Order Comment: Speci men Type: BLOOD SPECIMENOrdering Facility: [facility] Address: [address] [place] [address] Performed By: #### 2 4323-8, ####[facility] COMM[facility] HOSPITALNCA [id number] [place] [address] [place] Creatinine and Glomerular filtration rate.predicted panel (S/P/Bld) 88 mL/min/1.73m??? Normal >=60 [facility] Comment on above: Order Comment: Tessie cox Type: BLOOD SPECIMENOrdering Facility: [facility] Address: [address] [place] [address] Result Comment: Mariana mated Glomerular Filtration Rate (eGFR) is calculated using the 2020 CKD-EPI creatinine equation. This equation utilizes serum creatinine, sex, and age as parameters. The creatinine assay has traceable calibration to isotope dilution-mass spectrometry. Refer to KDIGO guidelines for clinical interpretation. In patients with unstable renal function, e.g. those with acute kidney injury, the eGFR may not accurately reflect actual GFR. Performed By: #### 2 4323-8, ####[facility] HOSPITALNCLIA [id number] [place] [address] [place] Glucose [Mass/Vol] 109 mg/dL High 74-99 [facility] Comment on above: Order Comment: Speci men Type: BLOOD SPECIMENOrdering Facility: [facility] Address: [address] [place] [address] Result Comment: The [place] Diabetes Association (ADA) provides guidance for cutoff values for fasting glucose and random glucose. The ADA defines fasting as no caloric intake for at least 8 hours. Fasting plasma glucose results between 100 to 125 mg/dL indicate increased risk for diabetes (prediabetes).Fasting plasma glucose results greater than or equal to 126 mg/dL meet the criteria for diagnosis of diabetes. In the absence of unequivocal hyperglycemia, results should be confirmed by repeat testing. In a patient with classic symptoms of hyperglycemia or hyperglycemic crisis, random plasma glucose results greater than or equal to 200 mg/dL meet the criteria for diagnosis of diabetes.Reference: Standards of Medical Care in Diabetes 2016, [place] Diabetes Association. Diabetes Care. 2016.39(Suppl 1). Performed By: #### 2 4323-8, ####[facility] [id number] [place] [address] [place] Potassium [Moles/Vol] 4.4 mmol/L Normal 3.7-5.1 [facility] Comment on above: Order Comment: Speci men Type: BLOOD SPECIMENOrdering Facility: [facility] Address: [address] [place] [address] Performed By: #### 2 4323-8, ####[facility] [id number] [place] [address] [place] Protein [Mass/Vol] 7.3 g/dL Normal 6.3-8.0 [facility] Comment on above: Order Comment: Speci men Type: BLOOD SPECIMENOrdering Facility: [facility] Address: [address] [place] [address] Performed By: #### 2 432-, ####[facility] HOSPITALLI [id number] [place] [address] [place] Sodium [Moles/Vol] 139 mmol/L Normal 136-144 [facility] Comment on above: Order Comment: Speci men Type: BLOOD SPECIMENOrdering Facility: [facility] Address: [address] [place], [place] [address] Performed By: #### 2 4323-8, ####[facility] TIMO GHOSHNCLINely [id number] [place] [address] [place] Urea nitrogen [Mass/Vol] 14 mg/dL Normal 7-21 [facility] Comment on above: Order Comment: Speci men Type: BLOOD SPECIMENOrdering Facility: [facility] Address: [address] [place], [place] [address] Performed By: #### 2 4323-8, ####[facility] DEVYNBEARDENNCLIA [id number] [place] [address] [place] MAGNESIUM BLDon 02-21-2024 Magnesium [Mass/Vol] 1.9 mg/dL 1.7 - 2 .3 mg/dL [facility] Magnesium SerPl-mCncon 02-20 Magnesium [Mass/Vol] 1.9 mg/dL Normal 1.7-2.3 [facility] Comment on above: Order Comment: Speci men Type: BLOOD SPECIMENOrdering Facility: [facility] Address: [address] [place] [address] Performed By: #### 2 4323-8, ####[facility] HOSPITALNCLIA [id number] [place] [address] [place] Magnesium [Mass/Vol]on 02-20 Interpretation and review of laboratory results Normal [facility] CA 125 BLDon 02-09-2024 Cancer Ag 125 Qn 195 [arb'U]/mL High NINF - 39 U/mL [facility] Comment on above: CA 125 test methodol ogy used is the Electrochemiluminescence Immunoassay by [employer]. Results obtained with different methods or kits cannot be used interchangeably. The reference interval is based on the 95th percentile of 240 apparently healthy premenopausal and postmenopausal women. At a cutoff value of 65 U/mL, the test sensitivity to distinguish ovarian carcinoma (FIGO stage I to IV) versus benign gynecological disease is 79%, with a specificity of 82%. Reference: Cancer Antigen 125 (CA 125 II) [package insert V 1.0 [place]]. [employer], [place], [place] (July 2015) CBC W Auto Differential pane l (Bld)on 02-09-2024 Basophils (Bld) [#/Vol] 0.04 10*3/uL [facility] Basophils/100 WBC (Bld) 0.9 % [facility] Differential cell count method Nom (Bld) Auto [facility] Eosinophils (Bld) [#/Vol] 0.11 10*3/uL [facility] Eosinophils/100 WBC (Bld) 2.5 % [facility] Erythrocyte distribution width (RBC) [Ratio] 15.0 % 11.5 - 15.0 % [facility] Hematocrit (Bld) [Volume fraction] 35.0 % Low 36.0 - 46.0 % [facility] Hemoglobin (Bld) [Mass/Vol] 11.4 g/dL Low 11.5 - 15.5 g/dL [facility] Immature granulocytes (Bld) [#/Vol] [facility] Immature granulocytes/100 WBC (Bld) 0.2 % [facility] Interpretation and review of laboratory results Abnormal [facility] Lymphocytes (Bld) [#/Vol] 1.71 10*3/uL [facility] Lymphocytes/100 WBC (Bld) 39.3 % [facility] MCH (RBC) [Entitic mass] 28.8 pg 26.0 - 34.0 pg [facility] MCHC (RBC) [Mass/Vol] 32.6 g/dL 30.5 - 36.0 g/dL [facility] MCV (RBC) [Entitic vol] 88.4 fL 80.0 - 100.0 fL [facility] Monocytes (Bld) [#/Vol] 0.35 10*3/uL [facility] Monocytes/100 WBC (Bld) 8.0 % [facility] Neutrophils (Bld) [#/Vol] 2.13 10*3/uL [facility] Neutrophils/100 WBC (Bld) 49.1 % [facility] Nucleated RBC (Bld) [#/Vol] [facility] Nucleated RBC/100 WBC (Bld) [Ratio] 0.0 % /100 WBC [facility] Platelet mean volume (Bld) [Entitic vol] 9.0 fL 9.0 - 12.7 fL [facility] Platelets (Bld) [#/Vol] 320 10*3/uL [facility] RBC (Bld) [#/Vol] 3.96 10*6/uL 3.90 - 5.2 0 m/uL [facility] WBC (Bld) [#/Vol] 4.35 10*3/uL [facility] Basophils (Bld) [#/Vol] 0.04 10*3/uL Normal <0.11 [facility] Comment on above: Order Comment: Speci men Type: BLOOD SPECIMENOrdering Facility: [facility] Address: [address] [place] [address] Performed By: #### 5 7021-8 ####[facility] [id number] [place] [address] [place] Basophils/100 WBC (Bld) 0.9 % Normal [facility] Comment on above: Order Comment: Speci men Type: BLOOD SPECIMENOrdering Facility: [facility] Address: [address] [place] [address] Performed By: #### 5 7021-8 ####[facility] [id number] [place] [address] [place] Differential cell count method Nom (Bld) Auto Normal [facility] Comment on above: Order Comment: Speci men Type: BLOOD SPECIMENOrdering Facility: [facility] Address: [address] [place] [address] Performed By: #### 5 7021-8 ####[facility] [id number] [place] [address] [place] Eosinophils (Bld) [#/Vol] 0.11 10*3/uL Normal <0.46 [facility] Comment on above: Order Comment: Speci men Type: BLOOD SPECIMENOrdering Facility: [facility] Address: [address] [place] [address] Performed By: #### 5 7021-8 ####[facility] AUGIENCLIA [id number] [place] [address] [place] Eosinophils/100 WBC (Bld) 2.5 % Normal [facility] Comment on above: Order Comment: Speci men Type: BLOOD SPECIMENOrdering Facility: [facility] Address: [address] [place] [address] Performed By: #### 5 7021-8 ####[facility] HOSPITALNCLIA [id number] [place] [address] [place] Erythrocyte distribution width (RBC) [Ratio] 15.0 % Normal 11.5-15.0 [facility] Comment on above: Order Comment: Speci men Type: BLOOD SPECIMENOrdering Facility: [facility] Address: [address] [place] [address] Performed By: #### 5 7021-8 ####[facility] HOSPITALNCLIA [id number] [place] [address] [place] Hematocrit (Bld) [Volume fraction] 35.0 % Low 36.0-46.0 [facility] Comment on above: Order Comment: Speci men Type: BLOOD SPECIMENOrdering Facility: [facility] Address: [address] [place] [address] Performed By: #### 5 7021-8 ####[facility] HOSPITALNCLIA [id number] [place] [address] [place] Hemoglobin (Bld) [Mass/Vol] 11.4 g/dL Low 11.5-15.5 [facility] Comment on above: Order Comment: Speci men Type: BLOOD SPECIMENOrdering Facility: [facility] Address: [address] [place] [address] Performed By: #### 5 7021-8 ####[facility] HOSPITALNCLIA [id number] [place] [address] [place] Immature granulocytes (Bld) [#/Vol] 10*3/uL Normal <0.10 [facility] Comment on above: Order Comment: Speci men Type: BLOOD SPECIMENOrdering Facility: [facility] Address: [address] [place] [address] Performed By: #### 5 7021-8 ####[facility] MILLWNCLIA [id number] [place] [address] [place] Immature granulocytes/100 WBC (Bld) 0.2 % Normal [facility] Comment on above: Order Comment: Speci men Type: BLOOD SPECIMENOrdering Facility: [facility] Address: [address] [place] [address] Performed By: #### 5 7021-8 ####[facility] HOSPITALNCLIA [id number] [place] [address] [place] Lymphocytes (Bld) [#/Vol] 1.71 10*3/uL Normal 1.00-4.00 [facility] Comment on above: Order Comment: Speci men Type: BLOOD SPECIMENOrdering Facility: [facility] Address: [address] [place] [address] Performed By: #### 5 7021-8 ####[facility] HOSPITALLIA [id number] [place] [address] [place] Lymphocytes/100 WBC (Bld) 39.3 % Normal [facility] Comment on above: Order Comment: Speci men Type: BLOOD SPECIMENOrdering Facility: [facility] Address: [address] [place] [address] Performed By: #### 5 7021-8 ####[facility] HOSPITALNCLIA [id number] [place] [address] [place] MCH (RBC) [Entitic mass] 28.8 pg Normal 26.0-34.0 [facility] Comment on above: Order Comment: Speci men Type: BLOOD SPECIMENOrdering Facility: [facility] Address: [address] [place] [address] Performed By: #### 5 7021-8 ####[facility] TIMO AUGIENCURI [id number] [place] [address] [place] MCHC (RBC) [Mass/Vol] 32.6 g/dL Normal 30.5-36.0 [facility] Comment on above: Order Comment: Speci men Type: BLOOD SPECIMENOrdering Facility: [facility] Address: [address] [place] [address] Performed By: #### 5 7021-8 ####[facility] COMMUN[facility] HOSPITALNCLI [id number] [place] [address] [place] MCV (RBC) [Entitic vol] 88.4 fL Normal 80.0-100.0 [facility] Comment on above: Order Comment: Speci men Type: BLOOD SPECIMENOrdering Facility: [facility] Address: [address] [place] [address] Performed By: #### 5 7021-8 ####[facility] HOSPITALNCLIA [id number] [place] [address] [place] Monocytes (Bld) [#/Vol] 0.35 10*3/uL Normal <0.87 [facility] Comment on above: Order Comment: Speci men Type: BLOOD SPECIMENOrdering Facility: [facility] Address: [address] [place] [address] Performed By: #### 5 7021-8 ####[facility] COMMUN[facility] HOSPITALNCA [id number] [address] [place] Monocytes/100 WBC (Bld) 8.0 % Normal [facility] Comment on above: Order Comment: Speci men Type: BLOOD SPECIMENOrdering Facility: [facility] Address: [address] [place] [address] Performed By: #### 5 7021-8 ####[facility] MILLTOWNCLIA [id number] [place] [address] [place] Neutrophils (Bld) [#/Vol] 2.13 10*3/uL Normal 1.45-7.50 [facility] Comment on above: Order Comment: Speci men Type: BLOOD SPECIMENOrdering Facility: [facility] Address: [address] [place] [address] Performed By: #### 5 7021-8 ####[facility] CENTERWNCLIA [id number] [place] [address] [place] Neutrophils/100 WBC (Bld) 49.1 % Normal [facility] Comment on above: Order Comment: Speci men Type: BLOOD SPECIMENOrdering Facility: [facility] Address: [address] [place] [address] Performed By: #### 5 7021-8 ####[facility] HOSPITALLIA [id number] [place] [address] [place] Nucleated RBC (Bld) [#/Vol] 10*3/uL Normal <0.01 [facility] Comment on above: Order Comment: Speci men Type: BLOOD SPECIMENOrdering Facility: [facility] Address: [address] [place] [address] Performed By: #### 5 7021-8 ####[facility] CENTERWNCLIA [id number] [place] [address] [place] Nucleated RBC/100 WBC (Bld) [Ratio] 0.0 /100 WBC Normal [facility] Comment on above: Order Comment: Speci men Type: BLOOD SPECIMENOrdering Facility: [facility] Address: [address] [place] [address] Performed By: #### 5 7021-8 ####[facility] HOSPITALLIA [id number] [place] [address] [place] Platelet mean volume (Bld) [Entitic vol] 9.0 fL Normal 9.0-12.7 [facility] Comment on above: Order Comment: Speci men Type: BLOOD SPECIMENOrdering Facility: [facility] Address: [address] [place] [address] Performed By: #### 5 7021-8 ####[facility] HOSPITALIESHATERESAA [id number] [place] [address] [place] Platelets (Bld) [#/Vol] 320 10*3/uL Normal 150-400 [facility] Comment on above: Order Comment: Speci men Type: BLOOD SPECIMENOrdering Facility: [facility] Address: [address] [place] [address] Performed By: #### 5 7021-8 ####[facility] HOSPITALNCTERESAA [id number] [place] [address] [place] RBC (Bld) [#/Vol] 3.96 10*6/uL Normal 3.90-5.20 [facility] Comment on above: Order Comment: Speci men Type: BLOOD SPECIMENOrdering Facility: [facility] Address: [address] [place] [address] Performed By: #### 5 7021-8 ####[facility] HOSPITALNCLIA [id number] [place] [address] [place] WBC (Bld) [#/Vol] 4.35 10*3/uL Normal 3.70-11.00 [facility] Comment on above: Order Comment: Speci men Type: BLOOD SPECIMENOrdering Facility: [facility] Address: [address] [place] [address] Performed By: #### 5 7021-8 ####[facility] HOSPITALNCLIA [id number] [place] [address] [place] Cancer Ag 125 Qnon 04-26-202 4 Interpretation and review of laboratory results Abnormal [facility] Cancer Ag125 SerPl-aCncon Cancer Ag 125 Qn 195 [arb'U]/mL High <39 [facility] Comment on above: Order Comment: Speci men Type: BLOOD SPECIMENOrdering Facility: [facility] Address: [address] [place] [address] Result Comment: CA 1 25 test methodology used is the Electrochemiluminescence Immunoassay by [employer]. Results obtained with different methods or kits cannot be used interchangeably.The reference interval is based on the 95th percentile of 240 apparently healthy premenopausal and postmenopausal women. At a cutoff value of 65 U/mL, the test sensitivity to distinguish ovarian carcinoma (FIGO stage I to IV) versus benign gynecological disease is 79%, with a specificity of 82%.Reference: Cancer Antigen 125 (CA 125 II) [package insert V 1.0 [place] [employer], [place], [place] (July 2015) Performed By: #### 1 0334-1 ####[facility] LABCLIA [id number] [place] [address] [place] Comprehensive metabolic 2000 panelOrdered By: Marium Vu on 02-09-2024 Albumin [Mass/Vol] 4.1 g/dL 3.9 - 4.9 g/dL [facility] ALP [Catalytic activity/Vol] 63 U/L 34 - 123 U/L [facility] ALT [Catalytic activity/Vol] 18 U/L 7 - 38 U/L [facility] Anion gap [Moles/Vol] 8 mmol/L Low 9 - 18 mmol/L [facility] AST [Catalytic activity/Vol] 21 U/L 13 - 35 U/L [facility] Bilirubin [Mass/Vol] 0.3 mg/dL 0.2 - 1 .3 mg/dL [facility] Calcium [Mass/Vol] 9.7 mg/dL 8.5 - 10. 2 mg/dL [facility] Chloride [Moles/Vol] 103 mmol/L 97 - 10 5 mmol/L [facility] CO2 [Moles/Vol] 27 mmol/L 22 - 30 mmol/L [facility] Creatinine [Mass/Vol] 0.80 mg/dL 0.58 - 0.96 mg/dL [facility] GFR/1.73 sq M.predicted among non-blacks MDRD (S/P/Bld) [Vol rate/Area] 86 mL/min/{1.73_m2} - PINF [facility] Comment on above: Estimated Glomerular Filtration Rate (eGFR) is calculated using the 2020 CKD-EPI creatinine equation. This equation utilizes serum creatinine, sex, and age as parameters. The creatinine assay has traceable calibration to isotope dilution-mass spectrometry. Refer to KDIGO guidelines for clinical interpretation. In patients with unstable renal function, e.g. those with acute kidney injury, the eGFR may not accurately reflect actual GFR. Glucose [Mass/Vol] 108 mg/dL High 74 - 99 mg/dL [facility] Comment on above: The [place] Diabete s Association (ADA) provides guidance for cutoff values for fasting glucose and random glucose. The ADA defines fasting as no caloric intake for at least 8 hours. Fasting plasma glucose results between 100 to 125 mg/dL indicate increased risk for diabetes (prediabetes). Fasting plasma glucose results greater than or equal to 126 mg/dL meet the criteria for diagnosis of diabetes. In the absence of unequivocal hyperglycemia, results should be confirmed by repeat testing. In a patient with classic symptoms of hyperglycemia or hyperglycemic crisis, random plasma glucose results greater than or equal to 200 mg/dL meet the criteria for diagnosis of diabetes. Reference: Standards of Medical Care in Diabetes 2016, [place] Diabetes Association. Diabetes Care. 2016.39(Suppl 1). Interpretation and review of laboratory results Abnormal [facility] Potassium [Moles/Vol] 4.3 mmol/L 3.7 - 5.1 mmol/L [facility] Protein [Mass/Vol] 7.3 g/dL 6.3 - 8.0 g/dL [facility] Sodium [Moles/Vol] 138 mmol/L 136 - 144 mmol/L [facility] Urea nitrogen [Mass/Vol] 16 mg/dL 7 - 21 mg/dL [facility] Comprehensive metabolic 2000 panelon 02-09-2024 Albumin [Mass/Vol] 4.1 g/dL Normal 3.9-4.9 [facility] Comment on above: Order Comment: Speci men Type: BLOOD SPECIMENOrdering Facility: [facility] Address: [facility] [place] [address] Performed By: #### 2 7363-8, ####[facility] TIMO MILLTOWNCLIA [id number] [place] [address] [place] ALP [Catalytic activity/Vol] 63 U/L Normal 34-123 [facility] Comment on above: Order Comment: Speci men Type: BLOOD SPECIMENOrdering Facility: [facility] Address: [address] [place] [address] Performed By: #### 2 4323-8, ####[facility] MILLTOWNCLIA [id number] [place] [address] [place] ALT [Catalytic activity/Vol] 18 U/L Normal 7-38 [facility] Comment on above: Order Comment: Speci men Type: BLOOD SPECIMENOrdering Facility: [facility] Address: [address] [place] [address] Performed By: #### 2 4323-8, ####[facility] HOSPITALNCLIA [id number] [place] [address] [place] Anion gap [Moles/Vol] 8 mmol/L Low 9-18 [facility] Comment on above: Order Comment: Speci men Type: BLOOD SPECIMENOrdering Facility: [facility] Address: [address] [place] [address] Performed By: #### 2 4323-8, ####[facility] MILLTOWNCLIA [id number] [place] [address] [place] AST [Catalytic activity/Vol] 21 U/L Normal 13-35 [facility] Comment on above: Order Comment: Speci men Type: BLOOD SPECIMENOrdering Facility: [facility] Address: [address] [place] [address] Performed By: #### 2 4323-8, ####[facility] CENTERWNCLIA [id number] [place] [address] [place] Bilirubin [Mass/Vol] 0.3 mg/dL Normal 0.2-1.3 [facility] Comment on above: Order Comment: Speci men Type: BLOOD SPECIMENOrdering Facility: [facility] Address: [address] [place] [address] Performed By: #### 2 4323-8, 84416-6 ####[facility] TIMO MILLMADDIEWIESHALIA [id number] [place] [address] [place] Calcium [Mass/Vol] 9.7 mg/dL Normal 8.5-10.2 [facility] Comment on above: Order Comment: Speci men Type: BLOOD SPECIMENOrdering Facility: [facility] Address: [address] [place] [address] Performed By: #### 2 4323-8, 04058-1 ####[facility]ALTHEDER [id number] [place] [address] [place] Chloride [Moles/Vol] 103 mmol/L Normal 97-105 [facility] Comment on above: Order Comment: Speci men Type: BLOOD SPECIMENOrdering Facility: [facility] Address: [address] [place] [address] Performed By: #### 2 4323-8, 22742-3 ####[facility] HEALTHMADDIEWIESHALIA [id number] [place] [address] [place] CO2 [Moles/Vol] 27 mmol/L Normal 22-30 [facility] Comment on above: Order Comment: Speci men Type: BLOOD SPECIMENOrdering Facility: [facility] Address: [address] [place] [address] Performed By: #### 2 4323-8, ####[facility] MILLMADDIEWNCLIA [id number] [place] [address] [place] Creatinine [Mass/Vol] 0.80 mg/dL Normal 0.58-0.96 [facility] Comment on above: Order Comment: Tessie cox Type: BLOOD SPECIMENOrdering Facility: [facility] Address: [address] [id number] Performed By: #### 2 4323-8, ####[facility] [id number] [place] [address] [place] Creatinine and Glomerular filtration rate.predicted panel (S/P/Bld) 86 mL/min/1.73m??? Normal >=60 [facility] Comment on above: Order Comment: Tessie ocx Type: BLOOD SPECIMENOrdering Facility: [facility] Address: [address] [place] [address] Result Comment: Mariana mated Glomerular Filtration Rate (eGFR) is calculated using the 2020 CKD-EPI creatinine equation. This equation utilizes serum creatinine, sex, and age as parameters. The creatinine assay has traceable calibration to isotope dilution-mass spectrometry. Refer to KDIGO guidelines for clinical interpretation. In patients with unstable renal function, e.g. those with acute kidney injury, the eGFR may not accurately reflect actual GFR. Performed By: #### 2 4323-8, ####[facility] [id number] [place] [address] [place] Glucose [Mass/Vol] 108 mg/dL High 74-99 [facility] Comment on above: Order Comment: Tessie cox Type: BLOOD SPECIMENOrdering Facility: [facility] Address: [address] [id number] Result Comment: The [place] Diabetes Association (ADA) provides guidance for cutoff values for fasting glucose and random glucose. The ADA defines fasting as no caloric intake for at least 8 hours. Fasting plasma glucose results between 100 to 125 mg/dL indicate increased risk for diabetes (prediabetes).Fasting plasma glucose results greater than or equal to 126 mg/dL meet the criteria for diagnosis of diabetes. In the absence of unequivocal hyperglycemia, results should be confirmed by repeat testing. In a patient with classic symptoms of hyperglycemia or hyperglycemic crisis, random plasma glucose results greater than or equal to 200 mg/dL meet the criteria for diagnosis of diabetes.Reference: Standards of Medical Care in Diabetes 2016, [place] Diabetes Association. Diabetes Care. 2016.39(Suppl 1). Performed By: #### 2 4323-8, 65212-7 ####[facility] TIMO SHEPARDMADDIEWNCTERESAA [id number] [place] [address] [place] Potassium [Moles/Vol] 4.3 mmol/L Normal 3.7-5.1 [facility] Comment on above: Order Comment: Speci men Type: BLOOD SPECIMENOrdering Facility: [facility] Address: [address] [place] [address] Performed By: #### 2 4323-8, ####[facility] DEVYNMadeleineNCURI [id number] [place] [address] [place] Protein [Mass/Vol] 7.3 g/dL Normal 6.3-8.0 [facility] Comment on above: Order Comment: Speci men Type: BLOOD SPECIMENOrdering Facility: [facility] Address: [address] [place] [address] Performed By: #### 2 4323-8, ####[facility] HOSPITALNCTERESAA [id number] [place] [address] [place] Sodium [Moles/Vol] 138 mmol/L Normal 136-144 [facility] Comment on above: Order Comment: Speci men Type: BLOOD SPECIMENOrdering Facility: [facility] Address: [address] [place] [address] Performed By: #### 2 4323-8, ####[facility] CENTERWNCLIA [id number] [place] [address] [place] Urea nitrogen [Mass/Vol] 16 mg/dL Normal 7-21 [facility] Comment on above: Order Comment: Speci men Type: BLOOD SPECIMENOrdering Facility: [facility] Address: [address] [place] [address] [place] [address] Performed By: #### 2 4323-8, 07836-7 ####[facility] TIMO DEVYNWNCLIA [id number] [place] [address] [place] MAGNESIUM BLDon 02-09-2024 Magnesium [Mass/Vol] 1.9 mg/dL 1.7 - 2 .3 mg/dL [facility] Magnesium SerPl-mCncon 02-08 Magnesium [Mass/Vol] 1.9 mg/dL Normal 1.7-2.3 [facility] Comment on above: Order Comment: Speci men Type: BLOOD SPECIMENOrdering Facility: [facility] Address: [address] [id number] Performed By: #### 2 4323-8, 29995-6 ####[facility] CENTERWNCLIA [id number] [place] [address] [place] Magnesium [Mass/Vol]on 02-08 Interpretation and review of laboratory results Normal [facility] CA 125 BLDon 01-31-2024 Cancer Ag 125 Qn 330 [arb'U]/mL High <39 U/mL [facility] CBC W Auto Differential pane l (Bld)on 01-31-2024 Basophils (Bld) [#/Vol] 0.05 10*3/uL <0.11 k/uL [facility] Basophils/100 WBC (Bld) 1.0 % [facility] Differential cell count method Nom (Bld) Auto [facility] Eosinophils (Bld) [#/Vol] 0.05 10*3/uL <0.46 k/uL [facility] Eosinophils/100 WBC (Bld) 1.0 % [facility] Erythrocyte distribution width (RBC) [Ratio] 14.8 % 11.5 - 15.0 % [facility] Hematocrit (Bld) [Volume fraction] 34.7 % Low 36.0 - 46.0 % [facility] Hemoglobin (Bld) [Mass/Vol] 11.3 g/dL Low 11.5 - 15.5 g/dL [facility] Immature granulocytes (Bld) [#/Vol] <0.10 k/uL [facility] Immature granulocytes/100 WBC (Bld) 0.2 % [facility] Lymphocytes (Bld) [#/Vol] 1.57 10*3/uL 1.00 - 4.00 k/uL [facility] Lymphocytes/100 WBC (Bld) 30.4 % [facility] MCH (RBC) [Entitic mass] 28.8 pg 26.0 - 34.0 pg [facility] MCHC (RBC) [Mass/Vol] 32.6 g/dL 30.5 - 36.0 g/dL [facility] MCV (RBC) [Entitic vol] 88.3 fL 80.0 - 100.0 fL [facility] Monocytes (Bld) [#/Vol] 0.28 10*3/uL <0.87 k/uL [facility] Monocytes/100 WBC (Bld) 5.4 % [facility] Neutrophils (Bld) [#/Vol] 3.21 10*3/uL 1.45 - 7.50 k/uL [facility] Neutrophils/100 WBC (Bld) 62.0 % [facility] Nucleated RBC (Bld) [#/Vol] <0.01 k/uL [facility] Nucleated RBC/100 WBC (Bld) [Ratio] 0.0 /100 WBC [facility] Platelet mean volume (Bld) [Entitic vol] 9.5 fL 9.0 - 12.7 fL [facility] Platelets (Bld) [#/Vol] 277 10*3/uL 150 - 400 k/uL [facility] RBC (Bld) [#/Vol] 3.93 10*6/uL 3.90 - 5.2 0 m/uL [facility] WBC (Bld) [#/Vol] 5.17 10*3/uL 3.70 - 11.00 k/uL [facility] Basophils (Bld) [#/Vol] 0.05 10*3/uL Normal <0.11 [facility] Comment on above: Order Comment: Speci men Type: BLOOD SPECIMENOrdering Facility: [facility] Address: [address] [place] [address] Performed By: #### 5 7021-8 ####[facility] TIMO [facility] [id number] [place] [address] [place] Basophils/100 WBC (Bld) 1.0 % Normal [facility] Comment on above: Order Comment: Speci men Type: BLOOD SPECIMENOrdering Facility: [facility] Address: [address] [place] [address] Performed By: #### 5 7021-8 ####[facility] HOSPITALLIA [id number] [place] [address] [place] Differential cell count method Nom (Bld) Auto Normal [facility] Comment on above: Order Comment: Speci men Type: BLOOD SPECIMENOrdering Facility: [facility] Address: [address] [place] [address] Performed By: #### 5 7021-8 ####[facility] [id number] [place] [address] [place] Eosinophils (Bld) [#/Vol] 0.05 10*3/uL Normal <0.46 [facility] Comment on above: Order Comment: Speci men Type: BLOOD SPECIMENOrdering Facility: [facility] Address: [address] [place] [address] Performed By: #### 5 7021-8 ####[facility] [id number] [place] [address] [place] Eosinophils/100 WBC (Bld) 1.0 % Normal [facility] Comment on above: Order Comment: Speci men Type: BLOOD SPECIMENOrdering Facility: [facility] Address: [address] [place] [address] Performed By: #### 5 7021-8 ####[facility] [id number] [place] [address] [place] Erythrocyte distribution width (RBC) [Ratio] 14.8 % Normal 11.5-15.0 [facility] Comment on above: Order Comment: Speci men Type: BLOOD SPECIMENOrdering Facility: [facility] Address: [address] [place] [address] Performed By: #### 5 7021-8 ####[facility] YOSSI [id number] [place] [address] [place] Hematocrit (Bld) [Volume fraction] 34.7 % Low 36.0-46.0 [facility] Comment on above: Order Comment: Speci men Type: BLOOD SPECIMENOrdering Facility: [facility] Address: [address] [place] [address] Performed By: #### 5 7021-8 ####[facility] HOSPITALKIANNely [id number] [place] [address] [place] Hemoglobin (Bld) [Mass/Vol] 11.3 g/dL Low 11.5-15.5 [facility] Comment on above: Order Comment: Speci men Type: BLOOD SPECIMENOrdering Facility: [facility] Address: [address] [place] [address] Performed By: #### 5 7021-8 ####[facility] COMM[facility] HOSPITALKIANA [id number] [place] [address] [place] Immature granulocytes (Bld) [#/Vol] 10*3/uL Normal <0.10 [facility] Comment on above: Order Comment: Speci men Type: BLOOD SPECIMENOrdering Facility: [facility] Address: [address] [place] [address] Performed By: #### 5 7021-8 ####[facility] DEVYNBEARDENIESHALIA [id number] [place] [address] [place] Immature granulocytes/100 WBC (Bld) 0.2 % Normal [facility] Comment on above: Order Comment: Speci men Type: BLOOD SPECIMENOrdering Facility: [facility] Address: [address] [place] [address] Performed By: #### 5 7021-8 ####[facility] [id number] [place] [address] [place] Lymphocytes (Bld) [#/Vol] 1.57 10*3/uL Normal 1.00-4.00 [facility] Comment on above: Order Comment: Speci men Type: BLOOD SPECIMENOrdering Facility: [facility] Address: [address] [place] [address] Performed By: #### 5 7021-8 ####[facility] [id number] [place] [address] [place] Lymphocytes/100 WBC (Bld) 30.4 % Normal [facility] Comment on above: Order Comment: Speci men Type: BLOOD SPECIMENOrdering Facility: [facility] Address: [address] [place] [address] Performed By: #### 5 7021-8 ####[facility] [id number] [place] [address] [place] MCH (RBC) [Entitic mass] 28.8 pg Normal 26.0-34.0 [facility] Comment on above: Order Comment: Speci men Type: BLOOD SPECIMENOrdering Facility: [facility] Address: [address] [place] [address] Performed By: #### 5 7021-8 ####[facility]PITALNCASH[facility] [id number] [place] [address] [place] MCHC (RBC) [Mass/Vol] 32.6 g/dL Normal 30.5-36.0 [facility] Comment on above: Order Comment: Speci men Type: BLOOD SPECIMENOrdering Facility: [facility] Address: [address] [place] [address] Performed By: #### 5 7021-8 ####[facility] COMM[facility] HOSPITALNCLI [id number] [place] [address] [place] MCV (RBC) [Entitic vol] 88.3 fL Normal 80.0-100.0 [facility] Comment on above: Order Comment: Speci men Type: BLOOD SPECIMENOrdering Facility: [facility] Address: [address] [place] [address] Performed By: #### 5 7021-8 ####[facility]ITALNCASH[facility] [id number] [place] [address] [place] Monocytes (Bld) [#/Vol] 0.28 10*3/uL Normal <0.87 [facility] Comment on above: Order Comment: Speci men Type: BLOOD SPECIMENOrdering Facility: [facility] Address: [address] [place] [address] Performed By: #### 5 7021-8 ####[facility] [id number] [place] [address] [place] Monocytes/100 WBC (Bld) 5.4 % Normal [facility] Comment on above: Order Comment: Speci men Type: BLOOD SPECIMENOrdering Facility: [facility] Address: [address] [place] [address] Performed By: #### 5 7021-8 ####[facility] [id number] [place] [address] [place] Neutrophils (Bld) [#/Vol] 3.21 10*3/uL Normal 1.45-7.50 [facility] Comment on above: Order Comment: Speci men Type: BLOOD SPECIMENOrdering Facility: [facility] Address: [address] [place] [address] Performed By: #### 5 7021-8 ####[facility] [id number] [place] [address] [place] Neutrophils/100 WBC (Bld) 62.0 % Normal [facility] Comment on above: Order Comment: Speci men Type: BLOOD SPECIMENOrdering Facility: [facility] Address: [address] [place] [address] Performed By: #### 5 7021-8 ####[facility] AUGIENCTERESAA [id number] [place] [address] [place] Nucleated RBC (Bld) [#/Vol] 10*3/uL Normal <0.01 [facility] Comment on above: Order Comment: Speci men Type: BLOOD SPECIMENOrdering Facility: [facility] Address: [address] [place] [address] Performed By: #### 5 7021-8 ####[facility] HOSPITALNCTERESAA [id number] [place] [address] [place] Nucleated RBC/100 WBC (Bld) [Ratio] 0.0 /100 WBC Normal [facility] Comment on above: Order Comment: Speci men Type: BLOOD SPECIMENOrdering Facility: [facility] Address: [address] [place] [address] Performed By: #### 5 7021-8 ####[facility] HOSPITALNCLIA [id number] [place] [address] [place] Platelet mean volume (Bld) [Entitic vol] 9.5 fL Normal 9.0-12.7 [facility] Comment on above: Order Comment: Speci men Type: BLOOD SPECIMENOrdering Facility: [facility] Address: [address] [place] [address] Performed By: #### 5 7021-8 ####[facility] HOSPITALNCLIA [id number] [place] [address] [place] Platelets (Bld) [#/Vol] 277 10*3/uL Normal 150-400 [facility] Comment on above: Order Comment: Speci men Type: BLOOD SPECIMENOrdering Facility: [facility] Address: [address] [place] [address] Performed By: #### 5 7021-8 ####[facility] HOSPITALIESHAASHLEY [facility] [id number] [place] [address] [place] RBC (Bld) [#/Vol] 3.93 10*6/uL Normal 3.90-5.20 [facility] Comment on above: Order Comment: Speci men Type: BLOOD SPECIMENOrdering Facility: [facility] Address: [address] [place] [address] Performed By: #### 5 7021-8 ####[facility] [id number] [place] [address] [place] WBC (Bld) [#/Vol] 5.17 10*3/uL Normal 3.70-11.00 [facility] Comment on above: Order Comment: Speci men Type: BLOOD SPECIMENOrdering Facility: [facility] Address: [address] [place] [address] Performed By: #### 5 7021-8 ####[facility] [id number] [place] [address] [place] Cancer Ag125 SerPl-aCncon Cancer Ag 125 Qn 330 [arb'U]/mL High <39 [facility] Comment on above: Order Comment: Speci men Type: BLOOD SPECIMENOrdering Facility: [facility] Address: [address] [place] [address] Result Comment: CA 1 25 test methodology used is the Electrochemiluminescence Immunoassay by [employer]. Results obtained with different methods or kits cannot be used interchangeably.The reference interval is based on the 95th percentile of 240 apparently healthy premenopausal and postmenopausal women. At a cutoff value of 65 U/mL, the test sensitivity to distinguish ovarian carcinoma (FIGO stage I to IV) versus benign gynecological disease is 79%, with a specificity of 82%.Reference: Cancer Antigen 125 (CA 125 II) [package insert V 1.0 [place]]. [employer], [place], [place] (July 2015) Performed By: #### 1 0334-1 ####[facility] LABCLIA [id number] [place] [address] [place] Comprehensive metabolic 2000 panelon 01-31-2024 Albumin [Mass/Vol] 4.3 g/dL 3.9 - 4.9 g/dL [facility] ALP [Catalytic activity/Vol] 68 U/L 34 - 123 U/L [facility] ALT [Catalytic activity/Vol] 23 U/L 7 - 38 U/L [facility] Anion gap [Moles/Vol] 7 mmol/L Low 9 - 18 mmol/L [facility] AST [Catalytic activity/Vol] 25 U/L 13 - 35 U/L [facility] Bilirubin [Mass/Vol] 0.4 mg/dL 0.2 - 1 .3 mg/dL [facility] Calcium [Mass/Vol] 9.8 mg/dL 8.5 - 10. 2 mg/dL [facility] Chloride [Moles/Vol] 103 mmol/L 97 - 10 5 mmol/L [facility] CO2 [Moles/Vol] 26 mmol/L 22 - 30 mmol/L [facility] Creatinine [Mass/Vol] 0.73 mg/dL 0.58 - 0.96 mg/dL [facility] Estimated Glomerular Filtration Rate 95 mL/min/1.73m >=60 mL/min/1.73 m [facility] Glucose [Mass/Vol] 108 mg/dL High 74 - 99 mg/dL [facility] Potassium [Moles/Vol] 4.4 mmol/L 3.7 - 5.1 mmol/L [facility] Protein [Mass/Vol] 7.4 g/dL 6.3 - 8.0 g/dL [facility] Sodium [Moles/Vol] 136 mmol/L 136 - 144 mmol/L [facility] Urea nitrogen [Mass/Vol] 15 mg/dL 7 - 21 mg/dL [facility] Albumin [Mass/Vol] 4.3 g/dL Normal 3.9-4.9 [facility] Comment on above: Order Comment: Speci men Type: BLOOD SPECIMENOrdering Facility: [facility] Address: [address] [place] [address] Performed By: #### 2 4323-8, 03504-0 ####[facility] TIMO [facility] SYSTEMKEV [id number] [place] [id number] [place] ALP [Catalytic activity/Vol] 68 U/L Normal 34-123 [facility] Comment on above: Order Comment: Speci men Type: BLOOD SPECIMENOrdering Facility: [facility] Address: [address] [place] [address] Performed By: #### 2 4323-8, 91450-9 ####[facility] MILLTOWNCLIA [id number] [place] [address] [place] ALT [Catalytic activity/Vol] 23 U/L Normal 7-38 [facility] Comment on above: Order Comment: Speci men Type: BLOOD SPECIMENOrdering Facility: [facility] Address: [address] [place] [address] Performed By: #### 2 4323-8, ####[facility] CENTERWNCLIA [id number] [place] [address] [place] Anion gap [Moles/Vol] 7 mmol/L Low 9-18 [facility] Comment on above: Order Comment: Speci men Type: BLOOD SPECIMENOrdering Facility: [facility] Address: [address] [place] [address] Performed By: #### 2 4323-8, ####[facility] HOSPITALNCLIA [id number] [place] [address] [place] AST [Catalytic activity/Vol] 25 U/L Normal 13-35 [facility] Comment on above: Order Comment: Speci men Type: BLOOD SPECIMENOrdering Facility: [facility] Address: [address] [place] [address] Performed By: #### 2 4323-8, ####[facility] MILLWNCLIA [id number] [place] [address] [place] Bilirubin [Mass/Vol] 0.4 mg/dL Normal 0.2-1.3 [facility] Comment on above: Order Comment: Speci men Type: BLOOD SPECIMENOrdering Facility: [facility] Address: [address] [place] [address] Performed By: #### 2 4323-8, ####[facility] TIMO AUGIENCLIA [id number] [place] [address] [place] Calcium [Mass/Vol] 9.8 mg/dL Normal 8.5-10.2 [facility] Comment on above: Order Comment: Speci men Type: BLOOD SPECIMENOrdering Facility: [facility] Address: [address] [place], [place] [id number] Performed By: #### 2 4323-8, ####[facility] TIMO DEVYNBEARDENNCLIA [id number] [place] [address] [place] Chloride [Moles/Vol] 103 mmol/L Normal 97-105 [facility] Comment on above: Order Comment: Speci men Type: BLOOD SPECIMENOrdering Facility: [facility] Address: [address] [place] [address] Performed By: #### 2 4323-8, ####[facility] DEVYNBEARDENNCTERESAA [id number] [place] [address] [place] CO2 [Moles/Vol] 26 mmol/L Normal 22-30 [facility] Comment on above: Order Comment: Speci men Type: BLOOD SPECIMENOrdering Facility: [facility] Address: [address] [place] [address] Performed By: #### 2 4323-8, ####[facility] HOSPITALNCLIA [id number] [place] [address] [place] Creatinine [Mass/Vol] 0.73 mg/dL Normal 0.58-0.96 [facility] Comment on above: Order Comment: Speci men Type: BLOOD SPECIMENOrdering Facility: [facility] Address: [address] [place] [address] Performed By: #### 2 4323-8, 68303-1 ####[facility] [id number] [place] [address] [place] Creatinine and Glomerular filtration rate.predicted panel (S/P/Bld) 95 mL/min/1.73m??? Normal >=60 [facility] Comment on above: Order Comment: Tessie cox Type: BLOOD SPECIMENOrdering Facility: [facility] Address: [address] [place] [address] Result Comment: [place] mated Glomerular Filtration Rate (eGFR) is calculated using the 2020 CKD-EPI creatinine equation. This equation utilizes serum creatinine, sex, and age as parameters. The creatinine assay has traceable calibration to isotope dilution-mass spectrometry. Refer to KDIGO guidelines for clinical interpretation. In patients with unstable renal function, e.g. those with acute kidney injury, the eGFR may not accurately reflect actual GFR. Performed By: #### 2 4323-8, 08801-1 ####[facility] [id number] [place] [address] [place] Glucose [Mass/Vol] 108 mg/dL High 74-99 [facility] Comment on above: Order Comment: Tessie cox Type: BLOOD SPECIMENOrdering Facility: [facility] Address: [address] [place] [address] Result Comment: The [place] Diabetes Association (ADA) provides guidance for cutoff values for fasting glucose and random glucose. The ADA defines fasting as no caloric intake for at least 8 hours. Fasting plasma glucose results between 100 to 125 mg/dL indicate increased risk for diabetes (prediabetes).Fasting plasma glucose results greater than or equal to 126 mg/dL meet the criteria for diagnosis of diabetes. In the absence of unequivocal hyperglycemia, results should be confirmed by repeat testing. In a patient with classic symptoms of hyperglycemia or hyperglycemic crisis, random plasma glucose results greater than or equal to 200 mg/dL meet the criteria for diagnosis of diabetes.Reference: Standards of Medical Care in Diabetes 2016, [place] Diabetes Association. Diabetes Care. 2016.39(Suppl 1). Performed By: #### 2 432-8, ####[facility] TIMO MILLTOWNCLIA [id number] [place] [address] [place] Potassium [Moles/Vol] 4.4 mmol/L Normal 3.7-5.1 [facility] Comment on above: Order Comment: Speci men Type: BLOOD SPECIMENOrdering Facility: [facility] Address: [address] [place] [address] Performed By: #### 2 4328, ####[facility] TIMO MILLTOWNCLIA [id number] [place] [address] [place] Protein [Mass/Vol] 7.4 g/dL Normal 6.3-8.0 [facility] Comment on above: Order Comment: Speci men Type: BLOOD SPECIMENOrdering Facility: [facility] Address: [address] [place] [address] Performed By: #### 2 4323-05, ####[facility] TIMO MILLTOWNCLIA [id number] [place] [address] [place] Sodium [Moles/Vol] 136 mmol/L Normal 136-144 [facility] Comment on above: Order Comment: Speci men Type: BLOOD SPECIMENOrdering Facility: [facility] Address: [address] [place] [address] Performed By: #### 2 4323-05, ####[facility] TIMO MILLTOWNCLIA [id number] [place] [address] [place] Urea nitrogen [Mass/Vol] 15 mg/dL Normal 7-21 [facility] Comment on above: Order Comment: Speci men Type: BLOOD SPECIMENOrdering Facility: [facility] Address: [address] [place] [address] Performed By: #### 2 4328, ####[facility] [id number] [place] [address] [place] MAGNESIUM BLDon 01-31-2024 Magnesium [Mass/Vol] 1.9 mg/dL 1.7 - 2 .3 mg/dL [facility] Magnesium SerPl-mCncon 01-30 Magnesium [Mass/Vol] 1.9 mg/dL Normal 1.7-2.3 [facility] Comment on above: Order Comment: Speci men Type: BLOOD SPECIMENOrdering Facility: [facility] Address: [address] [place] [address] Performed By: #### 2 4323-8, 66283-5 ####[facility] [id number] [place] [address] [place] CA 125 BLDon 01-24-2024 Cancer Ag 125 Qn 312 [arb'U]/mL High <39 U/mL [facility] CBC W Auto Differential pane l (Bld)on 01-24-2024 Basophils (Bld) [#/Vol] 0.06 10*3/uL <0.11 k/uL [facility] Basophils/100 WBC (Bld) 1.3 % [facility] Differential cell count method Nom (Bld) Auto [facility] Eosinophils (Bld) [#/Vol] 0.06 10*3/uL <0.46 k/uL [facility] Eosinophils/100 WBC (Bld) 1.3 % [facility] Erythrocyte distribution width (RBC) [Ratio] 15.0 % 11.5 - 15.0 % [facility] Hematocrit (Bld) [Volume fraction] 35.9 % Low 36.0 - 46.0 % [facility] Hemoglobin (Bld) [Mass/Vol] 11.6 g/dL 11.5 - 15.5 g/dL [facility] Immature granulocytes (Bld) [#/Vol] <0.10 k/uL [facility] Immature granulocytes/100 WBC (Bld) 0.2 % [facility] Lymphocytes (Bld) [#/Vol] 1.92 10*3/uL 1.00 - 4.00 k/uL [facility] Lymphocytes/100 WBC (Bld) 40.3 % [facility] MCH (RBC) [Entitic mass] 28.6 pg 26.0 - 34.0 pg [facility] MCHC (RBC) [Mass/Vol] 32.3 g/dL 30.5 - 36.0 g/dL [facility] MCV (RBC) [Entitic vol] 88.6 fL 80.0 - 100.0 fL [facility] Monocytes (Bld) [#/Vol] 0.53 10*3/uL <0.87 k/uL [facility] Monocytes/100 WBC (Bld) 11.1 % [facility] Neutrophils (Bld) [#/Vol] 2.19 10*3/uL 1.45 - 7.50 k/uL [facility] Neutrophils/100 WBC (Bld) 45.8 % [facility] Nucleated RBC (Bld) [#/Vol] <0.01 k/uL [facility] Nucleated RBC/100 WBC (Bld) [Ratio] 0.0 /100 WBC [facility] Platelet mean volume (Bld) [Entitic vol] 9.1 fL 9.0 - 12.7 fL [facility] Platelets (Bld) [#/Vol] 350 10*3/uL 150 - 400 k/uL [facility] RBC (Bld) [#/Vol] 4.05 10*6/uL 3.90 - 5.2 0 m/uL [facility] WBC (Bld) [#/Vol] 4.77 10*3/uL 3.70 - 11.00 k/uL [facility] Basophils (Bld) [#/Vol] 0.06 10*3/uL Normal <0.11 [facility] Comment on above: Order Comment: Speci men Type: BLOOD SPECIMENOrdering Facility: [facility] Address: [address] [place] [address] Performed By: #### 5 7021-8 ####[facility]OC[facility] [id number] [place] [address] [place] Basophils/100 WBC (Bld) 1.3 % Normal [facility] Comment on above: Order Comment: Speci men Type: BLOOD SPECIMENOrdering Facility: [facility] Address: [address] [place] [address] Performed By: #### 5 7021-8 ####[facility] MILLWNCLIA [id number] [place] [address] [place] Differential cell count method Nom (Bld) Auto Normal [facility] Comment on above: Order Comment: Speci men Type: BLOOD SPECIMENOrdering Facility: [facility] Address: [address] [place] [address] Performed By: #### 5 7021-8 ####[facility] HOSPITALIESHALIA [id number] [place] [address] [place] Eosinophils (Bld) [#/Vol] 0.06 10*3/uL Normal <0.46 [facility] Comment on above: Order Comment: Speci men Type: BLOOD SPECIMENOrdering Facility: [facility] Address: [address] [place] [address] Performed By: #### 5 7021-8 ####[facility] HOSPITALIESHALIA [id number] [place] [address] [place] Eosinophils/100 WBC (Bld) 1.3 % Normal [facility] Comment on above: Order Comment: Speci men Type: BLOOD SPECIMENOrdering Facility: [facility] Address: [address] [place] [address] Performed By: #### 5 7021-8 ####[facility] CENTERWIESHALIA [id number] [place] [address] [place] Erythrocyte distribution width (RBC) [Ratio] 15.0 % Normal 11.5-15.0 [facility] Comment on above: Order Comment: Speci men Type: BLOOD SPECIMENOrdering Facility: [facility] Address: [address] [place] [address] Performed By: #### 5 7021-8 ####[facility] HOSPITALNCLIA [id number] [place] [address] [place] Hematocrit (Bld) [Volume fraction] 35.9 % Low 36.0-46.0 [facility] Comment on above: Order Comment: Speci men Type: BLOOD SPECIMENOrdering Facility: [facility] Address: [address] [place] [address] Performed By: #### 5 7021-8 ####[facility] [id number] [place] [address] [place] Hemoglobin (Bld) [Mass/Vol] 11.6 g/dL Normal 11.5-15.5 [facility] Comment on above: Order Comment: Speci men Type: BLOOD SPECIMENOrdering Facility: [facility] Address: [address] [place] [address] Performed By: #### 5 7021-8 ####[facility] [id number] [place] [address] [place] Immature granulocytes (Bld) [#/Vol] 10*3/uL Normal <0.10 [facility] Comment on above: Order Comment: Speci men Type: BLOOD SPECIMENOrdering Facility: [facility] Address: [address] [place] [address] Performed By: #### 5 7021-8 ####[facility] [id number] [place] [address] [place] Immature granulocytes/100 WBC (Bld) 0.2 % Normal [facility] Comment on above: Order Comment: Speci men Type: BLOOD SPECIMENOrdering Facility: [facility] Address: [address] [place] [address] Performed By: #### 5 7021-8 ####[facility] HOSPITALNCASH[facility] [id number] [place] [address] [place] Lymphocytes (Bld) [#/Vol] 1.92 10*3/uL Normal 1.00-4.00 [facility] Comment on above: Order Comment: Speci men Type: BLOOD SPECIMENOrdering Facility: [facility] Address: [address] [place] [address] Performed By: #### 5 7021-8 ####[facility] DEVYNALYSSIA [id number] [place] [address] [place] Lymphocytes/100 WBC (Bld) 40.3 % Normal [facility] Comment on above: Order Comment: Speci men Type: BLOOD SPECIMENOrdering Facility: [facility] Address: [address] [place] [address] Performed By: #### 5 7021-8 ####[facility] HOSPITALNCURI [id number] [place] [address] [place] MCH (RBC) [Entitic mass] 28.6 pg Normal 26.0-34.0 [facility] Comment on above: Order Comment: Speci men Type: BLOOD SPECIMENOrdering Facility: [facility] Address: [address] [place] [address] Performed By: #### 5 7021-8 ####[facility] HOSPITALNCNely [id number] [place] [address] [place] MCHC (RBC) [Mass/Vol] 32.3 g/dL Normal 30.5-36.0 [facility] Comment on above: Order Comment: Speci men Type: BLOOD SPECIMENOrdering Facility: [facility] Address: [address] [place] [address] Performed By: #### 5 7021-8 ####[facility] COMM[facility] HOSPITALNCLIA [id number] [place] [address] [place] MCV (RBC) [Entitic vol] 88.6 fL Normal 80.0-100.0 [facility] Comment on above: Order Comment: Speci men Type: BLOOD SPECIMENOrdering Facility: [facility] Address: [address] [place] [address] Performed By: #### 5 7021-8 ####[facility] MILLTOWNCLIA [id number] [place] [address] [place] Monocytes (Bld) [#/Vol] 0.53 10*3/uL Normal <0.87 [facility] Comment on above: Order Comment: Speci men Type: BLOOD SPECIMENOrdering Facility: [facility] Address: [address] [place] [address] Performed By: #### 5 7021-8 ####[facility] CENTERWVALIA [id number] [place] [address] [place] Monocytes/100 WBC (Bld) 11.1 % Normal [facility] Comment on above: Order Comment: Speci men Type: BLOOD SPECIMENOrdering Facility: [facility] Address: [address] [place] [address] Performed By: #### 5 7021-8 ####[facility] HOSPITALLIA [id number] [place] [address] [place] Neutrophils (Bld) [#/Vol] 2.19 10*3/uL Normal 1.45-7.50 [facility] Comment on above: Order Comment: Speci men Type: BLOOD SPECIMENOrdering Facility: [facility] Address: [address] [place] [address] Performed By: #### 5 7021-8 ####[facility] HOSPITALNCLIA [id number] [place] [address] [place] Neutrophils/100 WBC (Bld) 45.8 % Normal [facility] Comment on above: Order Comment: Speci men Type: BLOOD SPECIMENOrdering Facility: [facility] Address: [address] [place] [address] Performed By: #### 5 7021-8 ####[facility] HOSPITALNCLIA [id number] [place] [address] [place] Nucleated RBC (Bld) [#/Vol] 10*3/uL Normal <0.01 [facility] Comment on above: Order Comment: Speci men Type: BLOOD SPECIMENOrdering Facility: [facility] Address: [address] [place] [address] Performed By: #### 5 7021-8 ####[facility] [id number] [place] [address] [place] Nucleated RBC/100 WBC (Bld) [Ratio] 0.0 /100 WBC Normal [facility] Comment on above: Order Comment: Speci men Type: BLOOD SPECIMENOrdering Facility: [facility] Address: [address] [place] [address] Performed By: #### 5 7021-8 ####[facility] [id number] [place] [address] [place] Platelet mean volume (Bld) [Entitic vol] 9.1 fL Normal 9.0-12.7 [facility] Comment on above: Order Comment: Speci men Type: BLOOD SPECIMENOrdering Facility: [facility] Address: [address] [place] [address] Performed By: #### 5 7021-8 ####[facility] [id number] [place] [address] [place] Platelets (Bld) [#/Vol] 350 10*3/uL Normal 150-400 [facility] Comment on above: Order Comment: Speci men Type: BLOOD SPECIMENOrdering Facility: [facility] Address: [address] [place] [address] Performed By: #### 5 7021-8 ####[facility] INSTITUTEA [id number] [place] [address] [place] RBC (Bld) [#/Vol] 4.05 10*6/uL Normal 3.90-5.20 [facility] Comment on above: Order Comment: Speci men Type: BLOOD SPECIMENOrdering Facility: [facility] Address: [address] [place] [address] Performed By: #### 5 7021-8 ####[facility] HE[facility] SYSTEMNCLIA [id number] [place] [address] [place] WBC (Bld) [#/Vol] 4.77 10*3/uL Normal 3.70-11.00 [facility] Comment on above: Order Comment: Speci men Type: BLOOD SPECIMENOrdering Facility: [facility] Address: [address] [place] [address] Performed By: #### 5 7021-8 ####[facility] HOSPITALNCLIA [id number] [place] [address] [place] CNOVSPon 01-24-2024 CNOVSP Normal [facility] Cancer Ag125 SerPl-aCncon Cancer Ag 125 Qn 312 [arb'U]/mL High <39 [facility] Comment on above: Order Comment: Speci men Type: BLOOD SPECIMENOrdering Facility: [facility] Address: [address] [place] [address] Result Comment: CA 1 25 test methodology used is the Electrochemiluminescence Immunoassay by [employer]. Results obtained with different methods or kits cannot be used interchangeably.The reference interval is based on the 95th percentile of 240 apparently healthy premenopausal and postmenopausal women. At a cutoff value of 65 U/mL, the test sensitivity to distinguish ovarian carcinoma (FIGO stage I to IV) versus benign gynecological disease is 79%, with a specificity of 82%.Reference: Cancer Antigen 125 (CA 125 II) [package insert V 1.0 [place]]. [employer], [place], [place] (July 2015) Performed By: #### 1 0334-1 ####[facility] LABCLIA [id number] [place] [address] [place] Comprehensive metabolic 2000 panelon 01-24-2024 Albumin [Mass/Vol] 4.0 g/dL 3.9 - 4.9 g/dL [facility] ALP [Catalytic activity/Vol] 72 U/L 34 - 123 U/L [facility] ALT [Catalytic activity/Vol] 25 U/L 7 - 38 U/L [facility] Anion gap [Moles/Vol] 8 mmol/L Low 9 - 18 mmol/L [facility] AST [Catalytic activity/Vol] 25 U/L 13 - 35 U/L [facility] Bilirubin [Mass/Vol] 0.2 mg/dL 0.2 - 1 .3 mg/dL [facility] Calcium [Mass/Vol] 10.0 mg/dL 8.5 - 10. 2 mg/dL [facility] Chloride [Moles/Vol] 102 mmol/L 97 - 10 5 mmol/L [facility] CO2 [Moles/Vol] 27 mmol/L 22 - 30 mmol/L [facility] Creatinine [Mass/Vol] 0.80 mg/dL 0.58 - 0.96 mg/dL [facility] Estimated Glomerular Filtration Rate 86 mL/min/1.73m >=60 mL/min/1.73 m [facility] Glucose [Mass/Vol] 109 mg/dL High 74 - 99 mg/dL [facility] Potassium [Moles/Vol] 4.2 mmol/L 3.7 - 5.1 mmol/L [facility] Protein [Mass/Vol] 7.4 g/dL 6.3 - 8.0 g/dL [facility] Sodium [Moles/Vol] 137 mmol/L 136 - 144 mmol/L [facility] Urea nitrogen [Mass/Vol] 15 mg/dL 7 - 21 mg/dL [facility] Albumin [Mass/Vol] 4.0 g/dL Normal 3.9-4.9 [facility] Comment on above: Order Comment: Speci men Type: BLOOD SPECIMENOrdering Facility: [facility] Address: [address] [place] [address] Performed By: #### 1 9123-9, 83321-3 ####[facility] TIM[facility] SYSTEMKEV [id number] [address] STATES OF [facility] ALP [Catalytic activity/Vol] 72 U/L Normal 34-123 [facility] Comment on above: Order Comment: Speci men Type: BLOOD SPECIMENOrdering Facility: [facility] Address: [address] [place], [place] [address] Performed By: #### 1 9123-9, 04469-6 ####[facility] YOSSI [id number] [place] [address] [place] ALT [Catalytic activity/Vol] 25 U/L Normal 7-38 [facility] Comment on above: Order Comment: Speci men Type: BLOOD SPECIMENOrdering Facility: [facility] Address: [address] [place] [address] Performed By: #### 1 9123-9, 63181-1 ####[facility] DEVYNBEARDENNCLIA [id number] [place] [address] [place] Anion gap [Moles/Vol] 8 mmol/L Low 9-18 [facility] Comment on above: Order Comment: Speci men Type: BLOOD SPECIMENOrdering Facility: [facility] Address: [address] [place] [address] Performed By: #### 1 9123-9, 69761-2 ####[facility] HOSPITALTERESAA [id number] [place] [address] [place] AST [Catalytic activity/Vol] 25 U/L Normal 13-35 [facility] Comment on above: Order Comment: Speci men Type: BLOOD SPECIMENOrdering Facility: [facility] Address: [address] [place] [address] Performed By: #### 1 9123-9, 36992-6 ####[facility] HOSPITALNCLIA [id number] [place] [address] [place] Bilirubin [Mass/Vol] 0.2 mg/dL Normal 0.2-1.3 [facility] Comment on above: Order Comment: Speci men Type: BLOOD SPECIMENOrdering Facility: [facility] Address: [address] [place] [address] Performed By: #### 1 9123-9, 12920-5 ####[facility] TIMO MILLTOWNCLIA [id number] [place] [address] [place] Calcium [Mass/Vol] 10.0 mg/dL Normal 8.5-10.2 [facility] Comment on above: Order Comment: Speci men Type: BLOOD SPECIMENOrdering Facility: [facility] Address: [address] [place] [address] Performed By: #### 1 9123-9, 95084-7 ####[facility] MILLTOWNCLIA [id number] [place] [address] [place] Chloride [Moles/Vol] 102 mmol/L Normal 97-105 [facility] Comment on above: Order Comment: Speci men Type: BLOOD SPECIMENOrdering Facility: [facility] Address: [address] [place] [address] Performed By: #### 1 91239, 78832-7 ####[facility] MILLBEARDENIESHALIA [id number] [place] [address] [place] CO2 [Moles/Vol] 27 mmol/L Normal 22-30 [facility] Comment on above: Order Comment: Speci men Type: BLOOD SPECIMENOrdering Facility: [facility] Address: [address] [place] [address] Performed By: #### 1 9123-9, 27478-6 ####[facility] MILLTOWNCLIA [id number] [place] [address] [place] Creatinine [Mass/Vol] 0.80 mg/dL Normal 0.58-0.96 [facility] Comment on above: Order Comment: Speci men Type: BLOOD SPECIMENOrdering Facility: [facility] Address: [address] [place] [address] Performed By: #### 1 9123-9, 23278-1 ####[facility] MILLTOWNCLIA [id number] [place] [address] [place] Creatinine and Glomerular filtration rate.predicted panel (S/P/Bld) 86 mL/min/1.73m??? Normal >=60 [facility] Comment on above: Order Comment: Tessie cox Type: BLOOD SPECIMENOrdering Facility: [facility] Address: [address] [place] [address] Result Comment: [place] mated Glomerular Filtration Rate (eGFR) is calculated using the 2020 CKD-EPI creatinine equation. This equation utilizes serum creatinine, sex, and age as parameters. The creatinine assay has traceable calibration to isotope dilution-mass spectrometry. Refer to KDIGO guidelines for clinical interpretation. In patients with unstable renal function, e.g. those with acute kidney injury, the eGFR may not accurately reflect actual GFR. Performed By: #### 1 9123-9, 71064-3 ####[facility] [id number] [place] [address] [place] Glucose [Mass/Vol] 109 mg/dL High 74-99 [facility] Comment on above: Order Comment: Tessie cox Type: BLOOD SPECIMENOrdering Facility: [facility] Address: [address] [place] [address] Result Comment: The [place] Diabetes Association (ADA) provides guidance for cutoff values for fasting glucose and random glucose. The ADA defines fasting as no caloric intake for at least 8 hours. Fasting plasma glucose results between 100 to 125 mg/dL indicate increased risk for diabetes (prediabetes).Fasting plasma glucose results greater than or equal to 126 mg/dL meet the criteria for diagnosis of diabetes. In the absence of unequivocal hyperglycemia, results should be confirmed by repeat testing. In a patient with classic symptoms of hyperglycemia or hyperglycemic crisis, random plasma glucose results greater than or equal to 200 mg/dL meet the criteria for diagnosis of diabetes.Reference: Standards of Medical Care in Diabetes 2016, [place] Diabetes Association. Diabetes Care. 2016.39(Suppl 1). Performed By: #### 1 9123-9, 86159-5 ####[facility]CL[facility] HOSPITALLI [id number] [place] [address] [place] Potassium [Moles/Vol] 4.2 mmol/L Normal 3.7-5.1 [facility] Comment on above: Order Comment: Speci men Type: BLOOD SPECIMENOrdering Facility: [facility] Address: [address] [place] [address] Performed By: #### 1 9123-9, 96137-5 ####[facility] TIMO MILLMADDIEWKIANA [id number] [place] [address] [place] Protein [Mass/Vol] 7.4 g/dL Normal 6.3-8.0 [facility] Comment on above: Order Comment: Speci men Type: BLOOD SPECIMENOrdering Facility: [facility] Address: [address] [place] [address] Performed By: #### 1 9123-9, 47827-7 ####[facility] MILLEDER [id number] [place] [address] [place] Sodium [Moles/Vol] 137 mmol/L Normal 136-144 [facility] Comment on above: Order Comment: Speci men Type: BLOOD SPECIMENOrdering Facility: [facility] Address: [address] [place] [address] Performed By: #### 1 9123-9, 30245-8 ####[facility] YOSSI [id number] [place] [address] [place] Urea nitrogen [Mass/Vol] 15 mg/dL Normal 7-21 [facility] Comment on above: Order Comment: Speci men Type: BLOOD SPECIMENOrdering Facility: [facility] Address: [address] [place] [address] Performed By: #### 1 9123-9, 48419-3 ####[facility] MILLTONYLIA [id number] [place] [address] [place] MAGNESIUM BLDon 01-24-2024 Magnesium [Mass/Vol] 1.9 mg/dL 1.7 - 2 .3 mg/dL [facility] Magnesium SerPl-mCncon 01-23 Magnesium [Mass/Vol] 1.9 mg/dL Normal 1.7-2.3 [facility] Comment on above: Order Comment: Speci men Type: BLOOD SPECIMENOrdering Facility: [facility] Address: [address] [place] [address] Performed By: #### 1 9123-9, 93451-5 ####[facility] MILLTOWNCLIA [id number] [place] [address] [place] CNPNon 01-18-2024 CNPN Normal [facility] CBC W Auto Differential pane l (Bld)on 01-11-2024 Basophils (Bld) [#/Vol] 10*3/uL Normal <0.11 [facility] Comment on above: Order Comment: Speci men Type: BLOOD SPECIMENOrdering Facility: [facility] Address: [address] [place] [address] Performed By: #### 5 7021-8 ####[facility] MILLBEARDENNCLIA [id number] [place] [address] [place] Basophils/100 WBC (Bld) 0.5 % Normal [facility] Comment on above: Order Comment: Speci men Type: BLOOD SPECIMENOrdering Facility: [facility] Address: [address] [place] [address] Performed By: #### 5 7021-8 ####[facility] MILLWNCLIA [id number] [place] [address] [place] Differential cell count method Nom (Bld) Auto Normal [facility] Comment on above: Order Comment: Speci men Type: BLOOD SPECIMENOrdering Facility: [facility] Address: [address] [place] [address] Performed By: #### 5 7021-8 ####[facility] MILLWNCLIA [id number] [place] [address] [place] Eosinophils (Bld) [#/Vol] 0.08 10*3/uL Normal <0.46 [facility] Comment on above: Order Comment: Speci men Type: BLOOD SPECIMENOrdering Facility: [facility] Address: [address] [place] [address] Performed By: #### 5 7021-8 ####[facility] HOSPITALNCASH[facility] [id number] [place] [address] [place] Eosinophils/100 WBC (Bld) 2.1 % Normal [facility] Comment on above: Order Comment: Speci men Type: BLOOD SPECIMENOrdering Facility: [facility] Address: [address] [place] [address] Performed By: #### 5 7021-8 ####[facility] COMM[facility] HOSPITALNCLI [id number] [place] [address] [place] Erythrocyte distribution width (RBC) [Ratio] 15.1 % High 11.5-15.0 [facility] Comment on above: Order Comment: Speci men Type: BLOOD SPECIMENOrdering Facility: [facility] Address: [address] [place] [address] Performed By: #### 5 7021-8 ####[facility] HOSPITALNCLIA [id number] [place] [address] [place] Hematocrit (Bld) [Volume fraction] 33.8 % Low 36.0-46.0 [facility] Comment on above: Order Comment: Speci men Type: BLOOD SPECIMENOrdering Facility: [facility] Address: [address] [place] [address] Performed By: #### 5 7021-8 ####[facility] HOSPITALNCLIA [id number] [place] [address] [place] Hemoglobin (Bld) [Mass/Vol] 10.9 g/dL Low 11.5-15.5 [facility] Comment on above: Order Comment: Speci men Type: BLOOD SPECIMENOrdering Facility: [facility] Address: [address] [place] [address] Performed By: #### 5 7021-8 ####[facility] TIMO SAMRAA [id number] [place] [address] [place] Immature granulocytes (Bld) [#/Vol] 10*3/uL Normal <0.10 [facility] Comment on above: Order Comment: Speci men Type: BLOOD SPECIMENOrdering Facility: [facility] Address: [address] [place] [address] Performed By: #### 5 7021-8 ####[facility] DEVYNBEARDENKIANA [id number] [place] [address] [place] Immature granulocytes/100 WBC (Bld) 0.3 % Normal [facility] Comment on above: Order Comment: Speci men Type: BLOOD SPECIMENOrdering Facility: [facility] Address: [address] [place] [address] Performed By: #### 5 7021-8 ####[facility] DEVYNBLOOMINGTON MEADOWS HOSPITALTERESAA [id number] [place] [address] [place] Lymphocytes (Bld) [#/Vol] 1.66 10*3/uL Normal 1.00-4.00 [facility] Comment on above: Order Comment: Speci men Type: BLOOD SPECIMENOrdering Facility: [facility] Address: [address] [place] [address] Performed By: #### 5 7021-8 ####[facility] HOSPITALLIA [id number] [place] [address] [place] Lymphocytes/100 WBC (Bld) 44.3 % Normal [facility] Comment on above: Order Comment: Speci men Type: BLOOD SPECIMENOrdering Facility: [facility] Address: [address] [place] [address] Performed By: #### 5 7021-8 ####[facility] HOSPITALNCLIA [id number] [place] [address] [place] MCH (RBC) [Entitic mass] 28.9 pg Normal 26.0-34.0 [facility] Comment on above: Order Comment: Speci men Type: BLOOD SPECIMENOrdering Facility: [facility] Address: [address] [place] [address] Performed By: #### 5 7021-8 ####[facility] [id number] [place] [address] [place] MCHC (RBC) [Mass/Vol] 32.2 g/dL Normal 30.5-36.0 [facility] Comment on above: Order Comment: Speci men Type: BLOOD SPECIMENOrdering Facility: [facility] Address: [address] [place] [address] Performed By: #### 5 7021-8 ####[facility] [id number] [place] [address] [place] MCV (RBC) [Entitic vol] 89.7 fL Normal 80.0-100.0 [facility] Comment on above: Order Comment: Speci men Type: BLOOD SPECIMENOrdering Facility: [facility] Address: [address] [place] [address] Performed By: #### 5 7021-8 ####[facility] [id number] [address] [place] Monocytes (Bld) [#/Vol] 0.26 10*3/uL Normal <0.87 [facility] Comment on above: Order Comment: Speci men Type: BLOOD SPECIMENOrdering Facility: [facility] Address: [address] [place] [address] Performed By: #### 5 7021-8 ####[facility] [id number] [place] [address] [place] Monocytes/100 WBC (Bld) 6.9 % Normal [facility] Comment on above: Order Comment: Speci men Type: BLOOD SPECIMENOrdering Facility: [facility] Address: [address] [place] [address] Performed By: #### 5 7021-8 ####[facility] COMMUNITY HOSPITALNCA [id number] [place] [address] [place] Neutrophils (Bld) [#/Vol] 1.72 10*3/uL Normal 1.45-7.50 [facility] Comment on above: Order Comment: Speci men Type: BLOOD SPECIMENOrdering Facility: [facility] Address: [address] [place] [address] Performed By: #### 5 7021-8 ####[facility] [id number] [place] [address] [place] Neutrophils/100 WBC (Bld) 45.9 % Normal [facility] Comment on above: Order Comment: Speci men Type: BLOOD SPECIMENOrdering Facility: [facility] Address: [address] [place] [address] Performed By: #### 5 7021-8 ####[facility] [id number] [place] [address] [place] Nucleated RBC (Bld) [#/Vol] 10*3/uL Normal <0.01 [facility] Comment on above: Order Comment: Speci men Type: BLOOD SPECIMENOrdering Facility: [facility] Address: [address] [place] [address] Performed By: #### 5 7021-8 ####[facility] HOSPITALLIA [id number] [place] [address] [place] [place] Nucleated RBC/100 WBC (Bld) [Ratio] 0.0 /100 WBC Normal [facility] Comment on above: Order Comment: Speci men Type: BLOOD SPECIMENOrdering Facility: [facility] Address: [address] [place] [address] Performed By: #### 5 7021-8 ####[facility] YOSSI [id number] [place] [address] [place] Platelet mean volume (Bld) [Entitic vol] 9.8 fL Normal 9.0-12.7 [facility] Comment on above: Order Comment: Speci men Type: BLOOD SPECIMENOrdering Facility: [facility] Address: [address] [place] [address] Performed By: #### 5 7021-8 ####[facility] COMM[facility] HOSPITALKEV [id number] [place] [address] [place] Platelets (Bld) [#/Vol] 299 10*3/uL Normal 150-400 [facility] Comment on above: Order Comment: Speci men Type: BLOOD SPECIMENOrdering Facility: [facility] Address: [address] [place] [address] Performed By: #### 5 7021-8 ####[facility] HOSPITALNCTERESAA [id number] [place] [address] [place] RBC (Bld) [#/Vol] 3.77 10*6/uL Low 3.90-5.20 [facility] Comment on above: Order Comment: Speci men Type: BLOOD SPECIMENOrdering Facility: [facility] Address: [address] [place] [address] Performed By: #### 5 7021-8 ####[facility] HOSPITALNCLIA [id number] [place] [address] [place] WBC (Bld) [#/Vol] 3.75 10*3/uL Normal 3.70-11.00 [facility] Comment on above: Order Comment: Speci men Type: BLOOD SPECIMENOrdering Facility: [facility] Address: [address] [place] [address] Performed By: #### 5 7021-8 ####[facility] [id number] [place] [address] [place] CNOVSPon 01-10-2024 CNOVSP Normal [facility] CNOVSPon 01-09-2024 CNOVSP Normal [facility] CA 125 BLDon 01-04-2024 Cancer Ag 125 Qn 317 [arb'U]/mL High <39 U/mL [facility] CBC W Auto Differential pane l (Bld)on 01-04-2024 Basophils (Bld) [#/Vol] 0.04 10*3/uL <0.11 k/uL [facility] Basophils/100 WBC (Bld) 1.0 % [facility] Differential cell count method Nom (Bld) Auto [facility] Eosinophils (Bld) [#/Vol] 0.13 10*3/uL <0.46 k/uL [facility] Eosinophils/100 WBC (Bld) 3.1 % [facility] Erythrocyte distribution width (RBC) [Ratio] 15.1 % High 11.5 - 15.0 % [facility] Hematocrit (Bld) [Volume fraction] 34.2 % Low 36.0 - 46.0 % [facility] Hemoglobin (Bld) [Mass/Vol] 11.1 g/dL Low 11.5 - 15.5 g/dL [facility] Immature granulocytes (Bld) [#/Vol] <0.10 k/uL [facility] Immature granulocytes/100 WBC (Bld) 0.2 % [facility] Lymphocytes (Bld) [#/Vol] 1.60 10*3/uL 1.00 - 4.00 k/uL [facility] Lymphocytes/100 WBC (Bld) 38.6 % [facility] MCH (RBC) [Entitic mass] 28.9 pg 26.0 - 34.0 pg [facility] MCHC (RBC) [Mass/Vol] 32.5 g/dL 30.5 - 36.0 g/dL [facility] MCV (RBC) [Entitic vol] 89.1 fL 80.0 - 100.0 fL [facility] Monocytes (Bld) [#/Vol] 0.27 10*3/uL <0.87 k/uL [facility] Monocytes/100 WBC (Bld) 6.5 % [facility] Neutrophils (Bld) [#/Vol] 2.09 10*3/uL 1.45 - 7.50 k/uL [facility] Neutrophils/100 WBC (Bld) 50.6 % [facility] Nucleated RBC (Bld) [#/Vol] <0.01 k/uL [facility] Nucleated RBC/100 WBC (Bld) [Ratio] 0.0 /100 WBC [facility] Platelet mean volume (Bld) [Entitic vol] 9.6 fL 9.0 - 12.7 fL [facility] Platelets (Bld) [#/Vol] 269 10*3/uL 150 - 400 k/uL [facility] RBC (Bld) [#/Vol] 3.84 10*6/uL Low 3.90 - 5.2 0 m/uL [facility] WBC (Bld) [#/Vol] 4.14 10*3/uL 3.70 - 11.00 k/uL [facility] Basophils (Bld) [#/Vol] 0.04 10*3/uL Normal <0.11 [facility] Comment on above: Order Comment: Speci men Type: BLOOD SPECIMENOrdering Facility: [facility] Address: [address] [place] [address] Performed By: #### 5 7021-8 ####[facility] [id number] [address] [place] Basophils/100 WBC (Bld) 1.0 % Normal [facility] Comment on above: Order Comment: Speci men Type: BLOOD SPECIMENOrdering Facility: [facility] Address: [address] [place] [address] Performed By: #### 5 7021-8 ####[facility] [id number] [place] [address] [place] Differential cell count method Nom (Bld) Auto Normal [facility] Comment on above: Order Comment: Speci men Type: BLOOD SPECIMENOrdering Facility: [facility] Address: [address] [place] [address] Performed By: #### 5 7021-8 ####[facility] MILLMADDIEWIESHALIA [id number] [place] [address] [place] Eosinophils (Bld) [#/Vol] 0.13 10*3/uL Normal <0.46 [facility] Comment on above: Order Comment: Speci men Type: BLOOD SPECIMENOrdering Facility: [facility] Address: [address] [place] [address] Performed By: #### 5 7021-8 ####[facility] CENTERWIESHALIA [id number] [place] [address] [place] Eosinophils/100 WBC (Bld) 3.1 % Normal [facility] Comment on above: Order Comment: Speci men Type: BLOOD SPECIMENOrdering Facility: [facility] Address: [address] [place] [address] Performed By: #### 5 7021-8 ####[facility] HOSPITALNCLIA [id number] [place] [address] [place] Erythrocyte distribution width (RBC) [Ratio] 15.1 % High 11.5-15.0 [facility] Comment on above: Order Comment: Speci men Type: BLOOD SPECIMENOrdering Facility: [facility] Address: [address] [place] [address] Performed By: #### 5 7021-8 ####[facility] MILLWNCLIA [id number] [place] [address] [place] Hematocrit (Bld) [Volume fraction] 34.2 % Low 36.0-46.0 [facility] Comment on above: Order Comment: Speci men Type: BLOOD SPECIMENOrdering Facility: [facility] Address: [address] [place] [address] Performed By: #### 5 7021-8 ####[facility] HOSPITALIESHALIA [id number] [place] [address] [place] Hemoglobin (Bld) [Mass/Vol] 11.1 g/dL Low 11.5-15.5 [facility] Comment on above: Order Comment: Speci men Type: BLOOD SPECIMENOrdering Facility: [facility] Address: [address] [place] [address] Performed By: #### 5 7021-8 ####[facility] [id number] [place] [address] [place] Immature granulocytes (Bld) [#/Vol] 10*3/uL Normal <0.10 [facility] Comment on above: Order Comment: Speci men Type: BLOOD SPECIMENOrdering Facility: [facility] Address: [address] [place] [address] Performed By: #### 5 7021-8 ####[facility] [id number] [place] [address] [place] Immature granulocytes/100 WBC (Bld) 0.2 % Normal [facility] Comment on above: Order Comment: Speci men Type: BLOOD SPECIMENOrdering Facility: [facility] Address: [address] [place] [address] Performed By: #### 5 7021-8 ####[facility] [id number] [place] [address] [place] Lymphocytes (Bld) [#/Vol] 1.60 10*3/uL Normal 1.00-4.00 [facility] Comment on above: Order Comment: Speci men Type: BLOOD SPECIMENOrdering Facility: [facility] Address: [address] [place] [address] Performed By: #### 5 7021-8 ####[facility] [id number] [place] [address] [place] Lymphocytes/100 WBC (Bld) 38.6 % Normal [facility] Comment on above: Order Comment: Speci men Type: BLOOD SPECIMENOrdering Facility: [facility] Address: [address] [place] [address] Performed By: #### 5 7021-8 ####[facility] HOSPITALNCASH[facility] [id number] [place] [address] [place] MCH (RBC) [Entitic mass] 28.9 pg Normal 26.0-34.0 [facility] Comment on above: Order Comment: Speci men Type: BLOOD SPECIMENOrdering Facility: [facility] Address: [address] [place] [address] Performed By: #### 5 7021-8 ####[facility] HOSPITALNCASHLEY [facility] [id number] [place] [address] [place] MCHC (RBC) [Mass/Vol] 32.5 g/dL Normal 30.5-36.0 [facility] Comment on above: Order Comment: Speci men Type: BLOOD SPECIMENOrdering Facility: [facility] Address: [address] [place] [address] Performed By: #### 5 7021-8 ####[facility] HOSPITALNCLIA [id number] [address] [place] MCV (RBC) [Entitic vol] 89.1 fL Normal 80.0-100.0 [facility] Comment on above: Order Comment: Speci men Type: BLOOD SPECIMENOrdering Facility: [facility] Address: [address] [place], [place] [address] Performed By: #### 5 7021-8 ####[facility] COMM[facility] HOSPITALNCA [id number] [address] [place] Monocytes (Bld) [#/Vol] 0.27 10*3/uL Normal <0.87 [facility] Comment on above: Order Comment: Speci men Type: BLOOD SPECIMENOrdering Facility: [facility] Address: [address] [place] [address] Performed By: #### 5 7021-8 ####[facility] MILLBEARDENNCLIA [id number] [place] [address] [place] Monocytes/100 WBC (Bld) 6.5 % Normal [facility] Comment on above: Order Comment: Speci men Type: BLOOD SPECIMENOrdering Facility: [facility] Address: [address] [place] [address] Performed By: #### 5 7021-8 ####[facility] HOSPITALLIA [id number] [place] [address] [place] Neutrophils (Bld) [#/Vol] 2.09 10*3/uL Normal 1.45-7.50 [facility] Comment on above: Order Comment: Speci men Type: BLOOD SPECIMENOrdering Facility: [facility] Address: [address] [place] [address] Performed By: #### 5 7021-8 ####[facility] HOSPITALLIA [id number] [place] [address] [place] Neutrophils/100 WBC (Bld) 50.6 % Normal [facility] Comment on above: Order Comment: Speci men Type: BLOOD SPECIMENOrdering Facility: [facility] Address: [address] [place] [address] Performed By: #### 5 7021-8 ####[facility] HOSPITALLIA [id number] [place] [address] [place] Nucleated RBC (Bld) [#/Vol] 10*3/uL Normal <0.01 [facility] Comment on above: Order Comment: Speci men Type: BLOOD SPECIMENOrdering Facility: [facility] Address: [address] [place] [address] Performed By: #### 5 7021-8 ####[facility] HOSPITALLIA [id number] [place] [address] [place] Nucleated RBC/100 WBC (Bld) [Ratio] 0.0 /100 WBC Normal [facility] Comment on above: Order Comment: Speci men Type: BLOOD SPECIMENOrdering Facility: [facility] Address: [address] [place] [address] Performed By: #### 5 7021-8 ####[facility] HOSPITALKEV [id number] [place] [address] [place] Platelet mean volume (Bld) [Entitic vol] 9.6 fL Normal 9.0-12.7 [facility] Comment on above: Order Comment: Speci men Type: BLOOD SPECIMENOrdering Facility: [facility] Address: [address] [place] [address] Performed By: #### 5 7021-8 ####[facility] HOSPITALIESHANely [id number] [place] [address] [place] Platelets (Bld) [#/Vol] 269 10*3/uL Normal 150-400 [facility] Comment on above: Order Comment: Speci men Type: BLOOD SPECIMENOrdering Facility: [facility] Address: [address] [place] [address] Performed By: #### 5 7021-8 ####[facility] HOSPITALIESHAURI [id number] [place] [address] [place] RBC (Bld) [#/Vol] 3.84 10*6/uL Low 3.90-5.20 [facility] Comment on above: Order Comment: Speci men Type: BLOOD SPECIMENOrdering Facility: [facility] Address: [address] [place] [address] Performed By: #### 5 7021-8 ####[facility] HOSPITALNCLIA [id number] [place] [address] [place] WBC (Bld) [#/Vol] 4.14 10*3/uL Normal 3.70-11.00 [facility] Comment on above: Order Comment: Speci men Type: BLOOD SPECIMENOrdering Facility: [facility] Address: [address] [place] [address] Performed By: #### 5 7021-8 ####[facility] TIMO [facility] [id number] [place] [address] [place] Cancer Ag125 SerPl-aCncon Cancer Ag 125 Qn 317 [arb'U]/mL High <39 [facility] Comment on above: Order Comment: Speci men Type: BLOOD SPECIMENOrdering Facility: [facility] Address: [facility] [place] [address] Result Comment: CA 1 25 test methodology used is the Electrochemiluminescence Immunoassay by [employer]. Results obtained with different methods or kits cannot be used interchangeably.The reference interval is based on the 95th percentile of 240 apparently healthy premenopausal and postmenopausal women. At a cutoff value of 65 U/mL, the test sensitivity to distinguish ovarian carcinoma (FIGO stage I to IV) versus benign gynecological disease is 79%, with a specificity of 82%.Reference: Cancer Antigen 125 (CA 125 II) [package insert V 1.0 [place]]. [employer], [place], [place] (July 2015) Performed By: #### 1 0334-1 ####[facility] LABCLIA [id number] [place] [address] [place] Comprehensive metabolic 2000 panelon 01-04-2024 Albumin [Mass/Vol] 4.1 g/dL 3.9 - 4.9 g/dL [facility] ALP [Catalytic activity/Vol] 60 U/L 34 - 123 U/L [facility] ALT [Catalytic activity/Vol] 15 U/L 7 - 38 U/L [facility] Anion gap [Moles/Vol] 6 mmol/L Low 9 - 18 mmol/L [facility] AST [Catalytic activity/Vol] 20 U/L 13 - 35 U/L [facility] Bilirubin [Mass/Vol] 0.3 mg/dL 0.2 - 1 .3 mg/dL [facility] Calcium [Mass/Vol] 9.7 mg/dL 8.5 - 10. 2 mg/dL [facility] Chloride [Moles/Vol] 104 mmol/L 97 - 10 5 mmol/L [facility] CO2 [Moles/Vol] 28 mmol/L 22 - 30 mmol/L [facility] Creatinine [Mass/Vol] 0.86 mg/dL 0.58 - 0.96 mg/dL [facility] Estimated Glomerular Filtration Rate 78 mL/min/1.73m >=60 mL/min/1.73 m [facility] Glucose [Mass/Vol] 104 mg/dL High 74 - 99 mg/dL [facility] Potassium [Moles/Vol] 4.1 mmol/L 3.7 - 5.1 mmol/L [facility] Protein [Mass/Vol] 7.1 g/dL 6.3 - 8.0 g/dL [facility] Sodium [Moles/Vol] 138 mmol/L 136 - 144 mmol/L [facility] Urea nitrogen [Mass/Vol] 15 mg/dL 7 - 21 mg/dL [facility] Albumin [Mass/Vol] 4.1 g/dL Normal 3.9-4.9 [facility] Comment on above: Order Comment: Speci men Type: BLOOD SPECIMENOrdering Facility: [facility] Address: [address] [place], [place] [address] Performed By: #### 1 9123-9, 08017-7 ####[facility] [id number] [place] [address] [place] [facility] ALP [Catalytic activity/Vol] 60 U/L Normal 34-123 [facility] Comment on above: Order Comment: Speci men Type: BLOOD SPECIMENOrdering Facility: [facility] Address: [address] [place] [address] Performed By: #### 1 9123-9, 05290-2 ####[facility] [id number] [place] [address] [place] ALT [Catalytic activity/Vol] 15 U/L Normal 7-38 [facility] Comment on above: Order Comment: Speci men Type: BLOOD SPECIMENOrdering Facility: [facility] Address: [address] [place] [address] Performed By: #### 1 9123-9, 04438-9 ####[facility] AUGIEIESHAURI [id number] [place] [address] [place] Anion gap [Moles/Vol] 6 mmol/L Low 9-18 [facility] Comment on above: Order Comment: Speci men Type: BLOOD SPECIMENOrdering Facility: [facility] Address: [address] [place] [address] Performed By: #### 1 9123-9, 00915-9 ####[facility] DEVYNEDER [id number] [place] [address] [place] AST [Catalytic activity/Vol] 20 U/L Normal 13-35 [facility] Comment on above: Order Comment: Speci men Type: BLOOD SPECIMENOrdering Facility: [facility] Address: [address] [place] [address] Performed By: #### 1 9123-9, 15603-8 ####[facility] DEVYNEDER [id number] [place] [address] [place] Bilirubin [Mass/Vol] 0.3 mg/dL Normal 0.2-1.3 [facility] Comment on above: Order Comment: Speci men Type: BLOOD SPECIMENOrdering Facility: [facility] Address: [address] [place] [address] Performed By: #### 1 9123-9, 25752-7 ####[facility] MILLMADDIEWIESHALIA [id number] [place] [address] [place] Calcium [Mass/Vol] 9.7 mg/dL Normal 8.5-10.2 [facility] Comment on above: Order Comment: Speci men Type: BLOOD SPECIMENOrdering Facility: [facility] Address: [address] [place] [address] Performed By: #### 1 9123-9, 38647-3 ####[facility] MILLWNCLIA [id number] [place] [address] [place] Chloride [Moles/Vol] 104 mmol/L Normal 97-105 [facility] Comment on above: Order Comment: Speci men Type: BLOOD SPECIMENOrdering Facility: [facility] Address: [address] [place] [address] Performed By: #### 1 9123-9, 68723-9 ####[facility] HOSPITALNCLIA [id number] [place] [address] [place] CO2 [Moles/Vol] 28 mmol/L Normal 22-30 [facility] Comment on above: Order Comment: Speci men Type: BLOOD SPECIMENOrdering Facility: [facility] Address: [address] [place] [address] Performed By: #### 1 9123-9, 55172-0 ####[facility] HOSPITALLIA [id number] [place] [address] [place] Creatinine [Mass/Vol] 0.86 mg/dL Normal 0.58-0.96 [facility] Comment on above: Order Comment: Speci men Type: BLOOD SPECIMENOrdering Facility: [facility] Address: [address] [place] [address] Performed By: #### 1 9123-9, 20354-5 ####[facility] HOSPITALNCLIA [id number] [place] [address] [place] Creatinine and Glomerular filtration rate.predicted panel (S/P/Bld) 78 mL/min/1.73m??? Normal >=60 [facility] Comment on above: Order Comment: Speci men Type: BLOOD SPECIMENOrdering Facility: [facility] Address: [address] [place] [address] Result Comment: [place] mated Glomerular Filtration Rate (eGFR) is calculated using the 2020 CKD-EPI creatinine equation. This equation utilizes serum creatinine, sex, and age as parameters. The creatinine assay has traceable calibration to isotope dilution-mass spectrometry. Refer to KDIGO guidelines for clinical interpretation. In patients with unstable renal function, e.g. those with acute kidney injury, the eGFR may not accurately reflect actual GFR. Performed By: #### 1 9123-9, 87479-4 ####[facility] DEVYNTHUNCLINely [id number] [place] [address] [place] Glucose [Mass/Vol] 104 mg/dL High 74-99 [facility] Comment on above: Order Comment: Tessie cox Type: BLOOD SPECIMENOrdering Facility: [facility] Address: [address] [place] [address] Result Comment: The [place] Diabetes Association (ADA) provides guidance for cutoff values for fasting glucose and random glucose. The ADA defines fasting as no caloric intake for at least 8 hours. Fasting plasma glucose results between 100 to 125 mg/dL indicate increased risk for diabetes (prediabetes).Fasting plasma glucose results greater than or equal to 126 mg/dL meet the criteria for diagnosis of diabetes. In the absence of unequivocal hyperglycemia, results should be confirmed by repeat testing. In a patient with classic symptoms of hyperglycemia or hyperglycemic crisis, random plasma glucose results greater than or equal to 200 mg/dL meet the criteria for diagnosis of diabetes.Reference: Standards of Medical Care in Diabetes 2016, [place] Diabetes Association. Diabetes Care. 2016.39(Suppl 1). Performed By: #### 1 9123-9, 34426-5 ####[facility] CENTERWKIANA [id number] [place] [address] [place] Potassium [Moles/Vol] 4.1 mmol/L Normal 3.7-5.1 [facility] Comment on above: Order Comment: Tessie cox Type: BLOOD SPECIMENOrdering Facility: [facility] Address: [address] [place] [place] [address] Performed By: #### 1 9123-9, 13897-1 ####[facility] HOSPITALIESHALIA [id number] [place] [address] [place] Protein [Mass/Vol] 7.1 g/dL Normal 6.3-8.0 [facility] Comment on above: Order Comment: Speci men Type: BLOOD SPECIMENOrdering Facility: [facility] Address: [address] [place] [address] Performed By: #### 1 9123-9, 85500-1 ####[facility] HOSPITALURI [id number] [place] [address] [place] Sodium [Moles/Vol] 138 mmol/L Normal 136-144 [facility] Comment on above: Order Comment: Speci men Type: BLOOD SPECIMENOrdering Facility: [facility] Address: [address] [place] [address] Performed By: #### 1 9123-9, 14579-6 ####[facility] [id number] [place] [address] [place] Urea nitrogen [Mass/Vol] 15 mg/dL Normal 7-21 [facility] Comment on above: Order Comment: Speci men Type: BLOOD SPECIMENOrdering Facility: [facility] Address: [address] [place] [address] Performed By: #### 1 9123-9, 60721-3 ####[facility] HOSPITALURI [id number] [place] [address] [place] MAGNESIUM BLDon 01-04-2024 Magnesium [Mass/Vol] 1.7 mg/dL 1.7 - 2 .3 mg/dL [facility] Magnesium SerPl-mCncon 01-03 Magnesium [Mass/Vol] 1.7 mg/dL Normal 1.7-2.3 [facility] Comment on above: Order Comment: Speci men Type: BLOOD SPECIMENOrdering Facility: [facility] Address: [address] [place] [address] Performed By: #### 1 9123-9, 75145-0 ####[facility] SYSTEMNCLIA [id number] [address] OF [facility] ALLIED HEALTHon 01-02-2024 ALLIED HEALTH HNO ID: [id number] Author: AVTAR RAMON Tech Service: Radiology Author Type: Marketing Analytics Manager Type: Allied Health Filed: 01/02/2024 09:30 Note Text: Radiology Service Progress Note PATIENT NAME: Evelyn Mccabe DATE OF SERVICE: January 02, 2024 TIME: 9:30 AM PATIENT IDENTITY VERIFICATION COMPLETED USING TWO (2) IDENTIFIERS: Name and Date of confirmed by patient verbally and Name and Date of confirmed by identification band. FALL SCREENING: Has the patient had 2 falls in the last year or 1 fall with injury or currently using an Ambulatory Assistive Device (Walker, Cane, Wheelchair, Crutches, etc.)? No PATIENT GENDER DATA: Female. status: : No status: NO. PATIENT RELEVANT IMPLANT DATA REVIEWED: Not Applicable PATIENT PRESENTS WITH AN IMPLANTABLE OR ATTACHED SENIOR QUALITY CONTROL TECHNICIAN: n/a RADIOLOGY DEPARTMENT: Biopsy and Ultrasound PERIPHERAL IV DATA: Not applicable SIGNED BY: Romaine Shafer January 02, 2024 9:30 AM Normal [facility] CNPNon 01-02-2024 CNPN Normal [facility] SURGICAL PATHOLOGYon 024 CASE REPORT Normal [facility] Comment on above: Order Comment: Tessie cox Type: TISSUE SPECIMEN [facility] Address: [address] [place] [address] Result Comment: Surg ica Pathology Report Case: [id number] Authorizing Provider: James Shoemaker MD Collected: 01/02/2024 09:27 AM Ordering Location: [facility] Radiology Received: 01/02/2024 11:15 AM Pathologist: Jimena Miller MD Specimen: LYMPH NODE BIOPSY Performed By: #### S #### [facility] CLIA [id number] [address] [place] [address] [place] CLINICAL HISTORY Right Axillary LN is growing. Pt. has metastatic Ca Ovary Normal [facility] Comment on above: Order Comment: Tessie cox Type: TISSUE SPECIMEN Ordering Facility: [facility] Address: [address] [place] [address] Performed By: #### S #### [facility] CLIA [id number] [address] [place] [address] [place] DIAGNOSIS COMMENT Dr. Caridad lu the hematopathology service has seen selected slides and concurs. Due to the limited nature of the specimen consider rebiopsy if clinically indicated. [facility] Comment on above: Order Comment: Speci men Type: TISSUE SPECIMEN Ordering Facility: [facility] Address: [address] [place] [address] Performed By: #### S #### [facility] CLIA [id number] [address] [place] [address] OF [place] FINAL DIAGNOSIS [facility] Comment on above: Order Comment: Speci men Type: TISSUE SPECIMEN Ordering Facility: [facility] Address: [address] [place] [address] Result Comment: A. R ight axillary lymph node, biopsy: - Fragment of lymphoid tissue, negative for carcinoma. JJR/LAD 01/03/2024 Performed By: #### S #### [facility] CLIA [id number] [address] [place] [address] [place] FINAL PERFORMING LAB [facility] Comment on above: Order Comment: Speci men Type: TISSUE SPECIMEN Ordering Facility: [facility] Address: [address] [place] [address] Result Comment: Diag nostic interpretation performed at [facility], [address] [place] [address] CLIA# [id number] Capacity Planning Engineer: Jerrell Rodriguez M.D. Performed By: #### S #### [facility] CLIA [id number] [address] [place] [address] [place] GROSS DESCRIPTION [facility] Comment on above: Order Comment: Speci men Type: TISSUE SPECIMEN Ordering Facility: [facility] Address: [address] [place] [address] Result Comment: A. L YMPH NODE BIOPSY Received in formalin are two segments of cylindrical tissue aggregating to 1.4 x 0.2 x 0.1 cm, yellow to red-brown and of a soft consistency. Totally submitted in one cassette. EJL January 02, 2024 4:24 PM Gross examination performed at [facility], [address] [place] [address] Performed By: #### S #### [facility] CLIA [id number] [address] [place] [address] [place] [address] [place] US BX INGUIN/AXILLA LYMPH NO Daniela 01-02-2024 US BX INGUIN/AXILLA LYMPH NODE * * *Final Report* * * DATE OF EXAM: Jan 02 2024 9:50AM MDU 2054 - US BX INGUIN/AXILLA LYMPH NODE / PROCEDURE REASON: Established Patient * * * * Physician Interpretation * * * * HISTORY: Disseminated malignant neoplasm of ovary, unspecified laterality (HCC) Axillary adenopathy TECHNIQUE: Pre-procedure Sign-in: Safety Checklist Performed: Yes. The team confirmed the correct patient, correct site, site marking, correct procedure, and correct position. Timeout Time: 900 Sign-out: Communication performed: Yes. 5 mm on percent lidocaine was infused for local anesthesia. Ultrasound with permanent recorded images was performed of the right axilla. Also real-time ultrasound imaging was performed of the left axilla. COMPARISON: 12/11/2023 CT chest RESULT: Ultrasound images of the right axilla show a mostly complex mostly cystic 2.4 x 2.0 x 2.2 cm mass with a few internal septations consisting of mostly necrotic lymphadenopathy. Real-time ultrasound scanning of the left axilla showed a significant finding. Echogenic portion of the wall of the right axillary cystic area was biopsied several times with an 18-gauge spring-loaded device under direct real-time ultrasound guidance. Specimens were placed in formalin for surgical pathology. Images were recorded demonstrating needle position within this tissue. IMPRESSION: Mostly necrotic bilateral axillary masses. Solid peripheral portion of the right axillary mass was biopsied under ultrasound guidance Produce Field Merchandiser: LESTER Transcribe Date/Time: Jan 05 2024 8:57A Dictated by : JAMES SHOEMAKER MD This examination was interpreted and the report reviewed and electronically signed by: JAMES SHOEMAKER MD on Jan 05 2024 10:01AM EST [id number] [facility] US GUIDED NEEDLEon US GUIDED NEEDLE * * *Final Report* * * DATE OF EXAM: Jan 02 2024 9:50AM [place] 1030 - US GUIDED NEEDLE / PROCEDURE REASON: Established Patient * * * * Physician Interpretation * * * * HISTORY: Disseminated malignant neoplasm of ovary, unspecified laterality (HCC) Axillary adenopathy TECHNIQUE: Pre-procedure Sign-in: Safety Checklist Performed: Yes. The team confirmed the correct patient, correct site, site marking, correct procedure, and correct position. Timeout Time: 900 Sign-out: Communication performed: Yes. 5 mm on percent lidocaine was infused for local anesthesia. Ultrasound with permanent recorded images was performed of the right axilla. Also real-time ultrasound imaging was performed of the left axilla. COMPARISON: 12/11/2023 CT chest RESULT: Ultrasound images of the right axilla show a mostly complex mostly cystic 2.4 x 2.0 x 2.2 cm mass with a few internal septations consisting of mostly necrotic lymphadenopathy. Real-time ultrasound scanning of the left axilla showed a significant finding. Echogenic portion of the wall of the right axillary cystic area was biopsied several times with an 18-gauge spring-loaded device under direct real-time ultrasound guidance. Specimens were placed in formalin for surgical pathology. Images were recorded demonstrating needle position within this tissue. IMPRESSION: Mostly necrotic bilateral axillary masses. Solid peripheral portion of the right axillary mass was biopsied under ultrasound guidance Produce Field Merchandiser: PSCB Transcribe Date/Time: Jan 05 2024 8:57A Dictated by : JAMES SHOEMAKER MD This examination was interpreted and the report reviewed and electronically signed by: JAMES SHOEMAKER MD on Jan 05 2024 10:01AM EST [id number] [facility] CNPNon 12-29-2023 CNPN Normal [facility] CA 125 BLDon 12-28-2023 Cancer Ag 125 Qn 268 [arb'U]/mL High <39 U/mL [facility] CBC W Auto Differential pane l (Bld)on 12-28-2023 Basophils (Bld) [#/Vol] 0.06 10*3/uL <0.11 k/uL [facility] Basophils/100 WBC (Bld) 0.9 % [facility] Differential cell count method Nom (Bld) Auto [facility] Eosinophils (Bld) [#/Vol] 0.14 10*3/uL <0.46 k/uL [facility] Eosinophils/100 WBC (Bld) 2.1 % [facility] Erythrocyte distribution width (RBC) [Ratio] 15.5 % High 11.5 - 15.0 % [facility] Hematocrit (Bld) [Volume fraction] 35.2 % Low 36.0 - 46.0 % [facility] Hemoglobin (Bld) [Mass/Vol] 11.6 g/dL 11.5 - 15.5 g/dL [facility] Immature granulocytes (Bld) [#/Vol] <0.10 k/uL [facility] Immature granulocytes/100 WBC (Bld) 0.3 % [facility] Lymphocytes (Bld) [#/Vol] 1.65 10*3/uL 1.00 - 4.00 k/uL [facility] Lymphocytes/100 WBC (Bld) 25.2 % [facility] MCH (RBC) [Entitic mass] 29.3 pg 26.0 - 34.0 pg [facility] MCHC (RBC) [Mass/Vol] 33.0 g/dL 30.5 - 36.0 g/dL [facility] MCV (RBC) [Entitic vol] 88.9 fL 80.0 - 100.0 fL [facility] Monocytes (Bld) [#/Vol] 0.45 10*3/uL <0.87 k/uL [facility] Monocytes/100 WBC (Bld) 6.9 % [facility] Neutrophils (Bld) [#/Vol] 4.23 10*3/uL 1.45 - 7.50 k/uL [facility] Neutrophils/100 WBC (Bld) 64.6 % [facility] Nucleated RBC (Bld) [#/Vol] <0.01 k/uL [facility] Nucleated RBC/100 WBC (Bld) [Ratio] 0.0 /100 WBC [facility] Platelet mean volume (Bld) [Entitic vol] 9.2 fL 9.0 - 12.7 fL [facility] Platelets (Bld) [#/Vol] 302 10*3/uL 150 - 400 k/uL [facility] RBC (Bld) [#/Vol] 3.96 10*6/uL 3.90 - 5.2 0 m/uL [facility] WBC (Bld) [#/Vol] 6.55 10*3/uL 3.70 - 11.00 k/uL [facility] Basophils (Bld) [#/Vol] 0.06 10*3/uL Normal <0.11 [facility] Comment on above: Order Comment: Speci men Type: BLOOD SPECIMENOrdering Facility: [facility] Address: [address] [place] [address] Performed By: #### 5 7021-8 ####[facility] [id number] [place] [address] [place] Basophils/100 WBC (Bld) 0.9 % Normal [facility] Comment on above: Order Comment: Speci men Type: BLOOD SPECIMENOrdering Facility: [facility] Address: [address] [place] [address] Performed By: #### 5 7021-8 ####[facility] [id number] [place] [address] [place] Differential cell count method Nom (Bld) Auto Normal [facility] Comment on above: Order Comment: Speci men Type: BLOOD SPECIMENOrdering Facility: [facility] Address: [address] [place] [address] Performed By: #### 5 7021-8 ####[facility] [id number] [place] [address] [place] Eosinophils (Bld) [#/Vol] 0.14 10*3/uL Normal <0.46 [facility] Comment on above: Order Comment: Speci men Type: BLOOD SPECIMENOrdering Facility: [facility] Address: [address] [place] [address] Performed By: #### 5 7021-8 ####[facility] DEVYNWNCLIA [id number] [place] [address] [place] Eosinophils/100 WBC (Bld) 2.1 % Normal [facility] Comment on above: Order Comment: Speci men Type: BLOOD SPECIMENOrdering Facility: [facility] Address: [address] [place] [address] Performed By: #### 5 7021-8 ####[facility]ITALIESHALIA [id number] [place] [address] [place] Erythrocyte distribution width (RBC) [Ratio] 15.5 % High 11.5-15.0 [facility] Comment on above: Order Comment: Speci men Type: BLOOD SPECIMENOrdering Facility: [facility] Address: [address] [place] [address] Performed By: #### 5 7021-8 ####[facility] [id number] [place] [address] [place] Hematocrit (Bld) [Volume fraction] 35.2 % Low 36.0-46.0 [facility] Comment on above: Order Comment: Speci men Type: BLOOD SPECIMENOrdering Facility: [facility] Address: [address] [place] [address] Performed By: #### 5 7021-8 ####[facility]IESHALIA [id number] [place] [address] [place] Hemoglobin (Bld) [Mass/Vol] 11.6 g/dL Normal 11.5-15.5 [facility] Comment on above: Order Comment: Speci men Type: BLOOD SPECIMENOrdering Facility: [facility] Address: [address] [place] [address] Performed By: #### 5 7021-8 ####[facility] HOSPITALNCLIA [id number] [place] [address] [place] Immature granulocytes (Bld) [#/Vol] 10*3/uL Normal <0.10 [facility] Comment on above: Order Comment: Speci men Type: BLOOD SPECIMENOrdering Facility: [facility] Address: [address] [place] [address] Performed By: #### 5 7021-8 ####[facility] [id number] [place] [address] [place] Immature granulocytes/100 WBC (Bld) 0.3 % Normal [facility] Comment on above: Order Comment: Speci men Type: BLOOD SPECIMENOrdering Facility: [facility] Address: [address] [place] [address] Performed By: #### 5 7021-8 ####[facility] [id number] [place] [address] [place] Lymphocytes (Bld) [#/Vol] 1.65 10*3/uL Normal 1.00-4.00 [facility] Comment on above: Order Comment: Speci men Type: BLOOD SPECIMENOrdering Facility: [facility] Address: [address] [place] [address] Performed By: #### 5 7021-8 ####[facility] [id number] [place] [address] [place] Lymphocytes/100 WBC (Bld) 25.2 % Normal [facility] Comment on above: Order Comment: Speci men Type: BLOOD SPECIMENOrdering Facility: [facility] Address: [address] [place] [address] Performed By: #### 5 7021-8 ####[facility] [id number] [place] [address] [place] MCH (RBC) [Entitic mass] 29.3 pg Normal 26.0-34.0 [facility] Comment on above: Order Comment: Speci men Type: BLOOD SPECIMENOrdering Facility: [facility] Address: [address] [place] [address] Performed By: #### 5 7021-8 ####[facility] DEVYNBEARDENKEV [id number] [place] [address] [place] MCHC (RBC) [Mass/Vol] 33.0 g/dL Normal 30.5-36.0 [facility] Comment on above: Order Comment: Speci men Type: BLOOD SPECIMENOrdering Facility: [facility] Address: [address] [place] [address] Performed By: #### 5 7021-8 ####[facility]ITALNC[facility] [id number] [place] [address] [place] MCV (RBC) [Entitic vol] 88.9 fL Normal 80.0-100.0 [facility] Comment on above: Order Comment: Speci men Type: BLOOD SPECIMENOrdering Facility: [facility] Address: [address] [place] [address] Performed By: #### 5 7021-8 ####[facility] H[facility]PITALIESHAA [id number] [place] [address] [place] Monocytes (Bld) [#/Vol] 0.45 10*3/uL Normal <0.87 [facility] Comment on above: Order Comment: Speci men Type: BLOOD SPECIMENOrdering Facility: [facility] Address: [address] [place] [address] Performed By: #### 5 7021-8 ####[facility] HOSPITALNCLIA [id number] [place] [address] [place] Monocytes/100 WBC (Bld) 6.9 % Normal [facility] Comment on above: Order Comment: Speci men Type: BLOOD SPECIMENOrdering Facility: [facility] Address: [address] [place] [address] Performed By: #### 5 7021-8 ####[facility] MILLWNCLIA [id number] [place] [address] [place] Neutrophils (Bld) [#/Vol] 4.23 10*3/uL Normal 1.45-7.50 [facility] Comment on above: Order Comment: Speci men Type: BLOOD SPECIMENOrdering Facility: [facility] Address: [address] [place] [address] Performed By: #### 5 7021-8 ####[facility]ENTERWVALIA [id number] [place] [address] [place] Neutrophils/100 WBC (Bld) 64.6 % Normal [facility] Comment on above: Order Comment: Speci men Type: BLOOD SPECIMENOrdering Facility: [facility] Address: [address] [place] [address] Performed By: #### 5 7021-8 ####[facility] [id number] [place] [address] [place] Nucleated RBC (Bld) [#/Vol] 10*3/uL Normal <0.01 [facility] Comment on above: Order Comment: Speci men Type: BLOOD SPECIMENOrdering Facility: [facility] Address: [address] [place] [address] Performed By: #### 5 7021-8 ####[facility]ALLIA [id number] [place] [address] [place] Nucleated RBC/100 WBC (Bld) [Ratio] 0.0 /100 WBC Normal [facility] Comment on above: Order Comment: Speci men Type: BLOOD SPECIMENOrdering Facility: [facility] Address: [address] [place] [address] Performed By: #### 5 7021-8 ####[facility] HOSPITALNCLI [id number] [place] [address] [place] Platelet mean volume (Bld) [Entitic vol] 9.2 fL Normal 9.0-12.7 [facility] Comment on above: Order Comment: Speci men Type: BLOOD SPECIMENOrdering Facility: [facility] Address: [address] [place] [address] Performed By: #### 5 7021-8 ####[facility]ITALNC[facility] [id number] [place] [address] [place] Platelets (Bld) [#/Vol] 302 10*3/uL Normal 150-400 [facility] Comment on above: Order Comment: Speci men Type: BLOOD SPECIMENOrdering Facility: [facility] Address: [address] [place] [address] Performed By: #### 5 7021-8 ####[facility]ITALNC[facility] [id number] [place] [address] [place] RBC (Bld) [#/Vol] 3.96 10*6/uL Normal 3.90-5.20 [facility] Comment on above: Order Comment: Speci men Type: BLOOD SPECIMENOrdering Facility: [facility] Address: [address] [place] [address] Performed By: #### 5 7021-8 ####[facility] HOSPITALNCA [id number] [place] [address] [place] WBC (Bld) [#/Vol] 6.55 10*3/uL Normal 3.70-11.00 [facility] Comment on above: Order Comment: Speci men Type: BLOOD SPECIMENOrdering Facility: [facility] Address: [address] [place] [address] Performed By: #### 5 7021-8 ####[facility] HOSPITALNCLI [id number] [place] [address] [place] Cancer Ag125 SerPl-aCncon Cancer Ag 125 Qn 268 [arb'U]/mL High <39 [facility] Comment on above: Order Comment: Speci men Type: BLOOD SPECIMENOrdering Facility: [facility] Address: [address] [place] [address] Result Comment: CA 1 25 test methodology used is the Electrochemiluminescence Immunoassay by [employer]. Results obtained with different methods or kits cannot be used interchangeably.The reference interval is based on the 95th percentile of 240 apparently healthy premenopausal and postmenopausal women. At a cutoff value of 65 U/mL, the test sensitivity to distinguish ovarian carcinoma (FIGO stage I to IV) versus benign gynecological disease is 79%, with a specificity of 82%.Reference: Cancer Antigen 125 (CA 125 II) [package insert V 1.0 [place]]. [employer], [place], [place] (July 2015) Performed By: #### 1 0334-1 ####[facility] LABCLIA [id number] [place] [address] [place] Comprehensive metabolic 2000 panelon 12-28-2023 Albumin [Mass/Vol] 4.1 g/dL 3.9 - 4.9 g/dL [facility] ALP [Catalytic activity/Vol] 59 U/L 34 - 123 U/L [facility] ALT [Catalytic activity/Vol] 18 U/L 7 - 38 U/L [facility] Anion gap [Moles/Vol] 7 mmol/L Low 9 - 18 mmol/L [facility] AST [Catalytic activity/Vol] 24 U/L 13 - 35 U/L [facility] Bilirubin [Mass/Vol] 0.4 mg/dL 0.2 - 1 .3 mg/dL [facility] Calcium [Mass/Vol] 9.5 mg/dL 8.5 - 10. 2 mg/dL [facility] Chloride [Moles/Vol] 105 mmol/L 97 - 10 5 mmol/L [facility] CO2 [Moles/Vol] 27 mmol/L 22 - 30 mmol/L [facility] Creatinine [Mass/Vol] 0.80 mg/dL 0.58 - 0.96 mg/dL [facility] Estimated Glomerular Filtration Rate 86 mL/min/1.73m >=60 mL/min/1.73 m [facility] Glucose [Mass/Vol] 109 mg/dL High 74 - 99 mg/dL [facility] Potassium [Moles/Vol] 4.0 mmol/L 3.7 - 5.1 mmol/L [facility] Protein [Mass/Vol] 7.1 g/dL 6.3 - 8.0 g/dL [facility] Sodium [Moles/Vol] 139 mmol/L 136 - 144 mmol/L [facility] Urea nitrogen [Mass/Vol] 16 mg/dL 7 - 21 mg/dL [facility] Albumin [Mass/Vol] 4.1 g/dL Normal 3.9-4.9 [facility] Comment on above: Order Comment: Speci men Type: BLOOD SPECIMENOrdering Facility: [facility] Address: [address] [place] [address] Performed By: #### 1 9123-9, 46460-8 ####[facility] HOSPITALKEV [id number] [place] [address] [place] ALP [Catalytic activity/Vol] 59 U/L Normal 34-123 [facility] Comment on above: Order Comment: Speci men Type: BLOOD SPECIMENOrdering Facility: [facility] Address: [address] [place] [address] Performed By: #### 1 9123-9, 83395-8 ####[facility] CECILIAKEV [id number] [place] [address] [place] ALT [Catalytic activity/Vol] 18 U/L Normal 7-38 [facility] Comment on above: Order Comment: Speci men Type: BLOOD SPECIMENOrdering Facility: [facility] Address: [address] [place], [place] [address] Performed By: #### 1 9123-9, 01732-0 ####[facility] HOSPITALKEV [id number] [place] [address] [place] Anion gap [Moles/Vol] 7 mmol/L Low 9-18 [facility] Comment on above: Order Comment: Speci men Type: BLOOD SPECIMENOrdering Facility: [facility] Address: [address] [place] [address] Performed By: #### 1 9123-9, 01822-8 ####[facility] MILLTOWNCLIA [id number] [place] [address] [place] AST [Catalytic activity/Vol] 24 U/L Normal 13-35 [facility] Comment on above: Order Comment: Speci men Type: BLOOD SPECIMENOrdering Facility: [facility] Address: [address] [place] [address] Performed By: #### 1 9123-9, 37309-4 ####[facility] DEVYNWNCLIA [id number] [place] [address] [place] Bilirubin [Mass/Vol] 0.4 mg/dL Normal 0.2-1.3 [facility] Comment on above: Order Comment: Speci men Type: BLOOD SPECIMENOrdering Facility: [facility] Address: [address] [place] [address] Performed By: #### 1 9123-9, 53109-1 ####[facility] HOSPITALLIA [id number] [place] [address] [place] Calcium [Mass/Vol] 9.5 mg/dL Normal 8.5-10.2 [facility] Comment on above: Order Comment: Speci men Type: BLOOD SPECIMENOrdering Facility: [facility] Address: [address] [place], [place] [address] Performed By: #### 1 9123-9, 03419-6 ####[facility] DEVYNWNCLIA [id number] [place] [address] [place] Chloride [Moles/Vol] 105 mmol/L Normal 97-105 [facility] Comment on above: Order Comment: Speci men Type: BLOOD SPECIMENOrdering Facility: [facility] Address: [address] [place] [address] Performed By: #### 1 9123-9, 14994-9 ####[facility] HOSPITALNCLIA [id number] [place] [address] [place] CO2 [Moles/Vol] 27 mmol/L Normal 22-30 [facility] Comment on above: Order Comment: Speci men Type: BLOOD SPECIMENOrdering Facility: [facility] Address: [address] [place] [address] Performed By: #### 1 9123-9, 74252-2 ####[facility] HOSPITALNCLIA [id number] [place] [address] [place] Creatinine [Mass/Vol] 0.80 mg/dL Normal 0.58-0.96 [facility] Comment on above: Order Comment: Speci men Type: BLOOD SPECIMENOrdering Facility: [facility] Address: [address] [place] [address] Performed By: #### 1 9123-9, ####[facility] HOSPITALNCA [id number] [place] [address] [place] Creatinine and Glomerular filtration rate.predicted panel (S/P/Bld) 86 mL/min/1.73m??? Normal >=60 [facility] Comment on above: Order Comment: Speci men Type: BLOOD SPECIMENOrdering Facility: [facility] Address: [address] [place] [address] Result Comment: Mariana mated Glomerular Filtration Rate (eGFR) is calculated using the 2020 CKD-EPI creatinine equation. This equation utilizes serum creatinine, sex, and age as parameters. The creatinine assay has traceable calibration to isotope dilution-mass spectrometry. Refer to KDIGO guidelines for clinical interpretation. In patients with unstable renal function, e.g. those with acute kidney injury, the eGFR may not accurately reflect actual GFR. Performed By: #### 1 9123-9, 86035-2 ####[facility] HOSPITALNCLIA [id number] [place] [address] [place] Glucose [Mass/Vol] 109 mg/dL High 74-99 [facility] Comment on above: Order Comment: Cheyennei brooke Type: BLOOD SPECIMENOrdering Facility: [facility] Address: [address] [place] [address] Result Comment: The [place] [employer] (ADA) provides guidance for cutoff values for fasting glucose and random glucose. The ADA defines fasting as no caloric intake for at least 8 hours. Fasting plasma glucose results between 100 to 125 mg/dL indicate increased risk for diabetes (prediabetes).Fasting plasma glucose results greater than or equal to 126 mg/dL meet the criteria for diagnosis of diabetes. In the absence of unequivocal hyperglycemia, results should be confirmed by repeat testing. In a patient with classic symptoms of hyperglycemia or hyperglycemic crisis, random plasma glucose results greater than or equal to 200 mg/dL meet the criteria for diagnosis of diabetes.Reference: Standards of Medical Care in Diabetes 2016, [place] Diabetes Association. Diabetes Care. 2016.39(Suppl 1). Performed By: #### 1 9123-9, 60944-0 ####[facility] MILLTOWIESHALIeNly [id number] [place] [address] [place] Potassium [Moles/Vol] 4.0 mmol/L Normal 3.7-5.1 [facility] Comment on above: Order Comment: Tessie cox Type: BLOOD SPECIMENOrdering Facility: [facility] Address: [address] [place], [place] [address] Performed By: #### 1 9123-9, 24301-9 ####[facility] MILLMADDIEWKEV [id number] [place] [address] [place] Protein [Mass/Vol] 7.1 g/dL Normal 6.3-8.0 [facility] Comment on above: Order Comment: Tessie cox Type: BLOOD SPECIMENOrdering Facility: [facility] Address: [address] [place], [place] [address] Performed By: #### 1 9123-9, 10390-4 ####[facility] MILLTOWNCLIA [id number] [place] [address] [place] Sodium [Moles/Vol] 139 mmol/L Normal 136-144 [facility] Comment on above: Order Comment: Speci men Type: BLOOD SPECIMENOrdering Facility: [facility] Address: [address] [place] [address] Performed By: #### 1 9123-9, 61293-4 ####[facility] [id number] [place] [address] [place] Urea nitrogen [Mass/Vol] 16 mg/dL Normal 7-21 [facility] Comment on above: Order Comment: Speci men Type: BLOOD SPECIMENOrdering Facility: [facility] Address: [address] [place] [address] Performed By: #### 1 9123-9, 78347-4 ####[facility] [id number] [place] [address] [place] MAGNESIUM BLDon 12-28-2023 Magnesium [Mass/Vol] 1.8 mg/dL 1.7 - 2 .3 mg/dL [facility] Magnesium SerPl-mCncon 12-27 Magnesium [Mass/Vol] 1.8 mg/dL Normal 1.7-2.3 [facility] Comment on above: Order Comment: Speci men Type: BLOOD SPECIMENOrdering Facility: [facility] Address: [address] [place] [address] Performed By: #### 1 9123-9, 89901-2 ####[facility] [id number] [place] [address] [place] CNPNon 12-25-2023 CNPN Normal [facility] CA 125 BLDon 12-20-2023 Cancer Ag 125 Qn 240 [arb'U]/mL High <39 U/mL [facility] CBC W Auto Differential pane l (Bld)on 12-20-2023 Basophils (Bld) [#/Vol] 0.04 10*3/uL <0.11 k/uL [facility] Basophils/100 WBC (Bld) 0.5 % [facility] Differential cell count method Nom (Bld) Auto [facility] Eosinophils (Bld) [#/Vol] 0.08 10*3/uL <0.46 k/uL [facility] Eosinophils/100 WBC (Bld) 1.1 % [facility] Erythrocyte distribution width (RBC) [Ratio] 15.9 % High 11.5 - 15.0 % [facility] Hematocrit (Bld) [Volume fraction] 36.7 % 36.0 - 46.0 % [facility] Hemoglobin (Bld) [Mass/Vol] 12.0 g/dL 11.5 - 15.5 g/dL [facility] Immature granulocytes (Bld) [#/Vol] <0.10 k/uL [facility] Immature granulocytes/100 WBC (Bld) 0.1 % [facility] Lymphocytes (Bld) [#/Vol] 1.73 10*3/uL 1.00 - 4.00 k/uL [facility] Lymphocytes/100 WBC (Bld) 23.0 % [facility] MCH (RBC) [Entitic mass] 29.1 pg 26.0 - 34.0 pg [facility] MCHC (RBC) [Mass/Vol] 32.7 g/dL 30.5 - 36.0 g/dL [facility] MCV (RBC) [Entitic vol] 88.9 fL 80.0 - 100.0 fL [facility] Monocytes (Bld) [#/Vol] 0.65 10*3/uL <0.87 k/uL [facility] Monocytes/100 WBC (Bld) 8.6 % [facility] Neutrophils (Bld) [#/Vol] 5.01 10*3/uL 1.45 - 7.50 k/uL [facility] Neutrophils/100 WBC (Bld) 66.7 % [facility] Nucleated RBC (Bld) [#/Vol] <0.01 k/uL [facility] Nucleated RBC/100 WBC (Bld) [Ratio] 0.0 /100 WBC [facility] Platelet mean volume (Bld) [Entitic vol] 9.5 fL 9.0 - 12.7 fL [facility] Platelets (Bld) [#/Vol] 331 10*3/uL 150 - 400 k/uL [facility] RBC (Bld) [#/Vol] 4.13 10*6/uL 3.90 - 5.2 0 m/uL [facility] WBC (Bld) [#/Vol] 7.52 10*3/uL 3.70 - 11.00 k/uL [facility] Basophils (Bld) [#/Vol] 0.04 10*3/uL Normal <0.11 [facility] Comment on above: Order Comment: Speci men Type: BLOOD SPECIMENOrdering Facility: [facility] Address: [address] [place] [address] Performed By: #### 5 7021-8 ####[facility]A [id number] [place] [address] [place] Basophils/100 WBC (Bld) 0.5 % Normal [facility] Comment on above: Order Comment: Speci men Type: BLOOD SPECIMENOrdering Facility: [facility] Address: [address] [place] [address] Performed By: #### 5 7021-8 ####[facility] [id number] [place] [address] [place] Differential cell count method Nom (Bld) Auto Normal [facility] Comment on above: Order Comment: Speci men Type: BLOOD SPECIMENOrdering Facility: [facility] Address: [address] [place] [address] Performed By: #### 5 7021-8 ####[facility] H[facility]PITALLIA [id number] [place] [address] [place] Eosinophils (Bld) [#/Vol] 0.08 10*3/uL Normal <0.46 [facility] Comment on above: Order Comment: Speci men Type: BLOOD SPECIMENOrdering Facility: [facility] Address: [address] [place] [address] Performed By: #### 5 7021-8 ####[facility]ITALLIA [id number] [place] [address] [place] Eosinophils/100 WBC (Bld) 1.1 % Normal [facility] Comment on above: Order Comment: Speci men Type: BLOOD SPECIMENOrdering Facility: [facility] Address: [address] [place] [address] Performed By: #### 5 7021-8 ####[facility] [id number] [place] [address] [place] Erythrocyte distribution width (RBC) [Ratio] 15.9 % High 11.5-15.0 [facility] Comment on above: Order Comment: Speci men Type: BLOOD SPECIMENOrdering Facility: [facility] Address: [address] [place] [address] Performed By: #### 5 7021-8 ####[facility] [id number] [place] [address] [place] Hematocrit (Bld) [Volume fraction] 36.7 % Normal 36.0-46.0 [facility] Comment on above: Order Comment: Speci men Type: BLOOD SPECIMENOrdering Facility: [facility] Address: [address] [place] [address] Performed By: #### 5 7021-8 ####[facility] [id number] [place] [address] [place] Hemoglobin (Bld) [Mass/Vol] 12.0 g/dL Normal 11.5-15.5 [facility] Comment on above: Order Comment: Speci men Type: BLOOD SPECIMENOrdering Facility: [facility] Address: [address] [place] [address] Performed By: #### 5 7021-8 ####[facility] [id number] [place] [address] [place] Immature granulocytes (Bld) [#/Vol] 10*3/uL Normal <0.10 [facility] Comment on above: Order Comment: Speci men Type: BLOOD SPECIMENOrdering Facility: [facility] Address: [address] [place] [address] Performed By: #### 5 7021-8 ####[facility] MILLTOWNCLIA [id number] [place] [address] [place] Immature granulocytes/100 WBC (Bld) 0.1 % Normal [facility] Comment on above: Order Comment: Speci men Type: BLOOD SPECIMENOrdering Facility: [facility] Address: [address] [place] [address] Performed By: #### 5 7021-8 ####[facility] HOSPITALNCLIA [id number] [place] [address] [place] Lymphocytes (Bld) [#/Vol] 1.73 10*3/uL Normal 1.00-4.00 [facility] Comment on above: Order Comment: Speci men Type: BLOOD SPECIMENOrdering Facility: [facility] Address: [address] [place] [address] Performed By: #### 5 7021-8 ####[facility] HOSPITALLIA [id number] [place] [address] [place] Lymphocytes/100 WBC (Bld) 23.0 % Normal [facility] Comment on above: Order Comment: Speci men Type: BLOOD SPECIMENOrdering Facility: [facility] Address: [address] [place] [address] Performed By: #### 5 7021-8 ####[facility]OSPITALLIA [id number] [place] [address] [place] MCH (RBC) [Entitic mass] 29.1 pg Normal 26.0-34.0 [facility] Comment on above: Order Comment: Speci men Type: BLOOD SPECIMENOrdering Facility: [facility] Address: [address] [place] [address] Performed By: #### 5 7021-8 ####[facility]PITALLIA [id number] [place] [address] [place] MCHC (RBC) [Mass/Vol] 32.7 g/dL Normal 30.5-36.0 [facility] Comment on above: Order Comment: Speci men Type: BLOOD SPECIMENOrdering Facility: [facility] Address: [address] [place] [address] Performed By: #### 5 7021-8 ####[facility] HOSPITALIESHAASHLEY [facility] [id number] [place] [address] [place] MCV (RBC) [Entitic vol] 88.9 fL Normal 80.0-100.0 [facility] Comment on above: Order Comment: Speci men Type: BLOOD SPECIMENOrdering Facility: [facility] Address: [address] [place] [address] Performed By: #### 5 7021-8 ####[facility] [id number] [place] [address] [place] Monocytes (Bld) [#/Vol] 0.65 10*3/uL Normal <0.87 [facility] Comment on above: Order Comment: Speci men Type: BLOOD SPECIMENOrdering Facility: [facility] Address: [address] [place] [address] Performed By: #### 5 7021-8 ####[facility] [id number] [place] [address] [place] Monocytes/100 WBC (Bld) 8.6 % Normal [facility] Comment on above: Order Comment: Speci men Type: BLOOD SPECIMENOrdering Facility: [facility] Address: [address] [place] [address] Performed By: #### 5 7021-8 ####[facility] [id number] [place] [address] [place] Neutrophils (Bld) [#/Vol] 5.01 10*3/uL Normal 1.45-7.50 [facility] Comment on above: Order Comment: Speci men Type: BLOOD SPECIMENOrdering Facility: [facility] Address: [address] [place] [address] Performed By: #### 5 7021-8 ####[facility]PITALNCASH[facility] [id number] [place] [address] [place] Neutrophils/100 WBC (Bld) 66.7 % Normal [facility] Comment on above: Order Comment: Speci men Type: BLOOD SPECIMENOrdering Facility: [facility] Address: [address] [place] [address] Performed By: #### 5 7021-8 ####[facility] [id number] [place] [address] [place] Nucleated RBC (Bld) [#/Vol] 10*3/uL Normal <0.01 [facility] Comment on above: Order Comment: Speci men Type: BLOOD SPECIMENOrdering Facility: [facility] Address: [address] [place] [address] Performed By: #### 5 7021-8 ####[facility]OSPITALLI [id number] [place] [address] [place] Nucleated RBC/100 WBC (Bld) [Ratio] 0.0 /100 WBC Normal [facility] Comment on above: Order Comment: Speci men Type: BLOOD SPECIMENOrdering Facility: [facility] Address: [address] [place] [address] Performed By: #### 5 7021-8 ####[facility] [id number] [place] [address] [place] Platelet mean volume (Bld) [Entitic vol] 9.5 fL Normal 9.0-12.7 [facility] Comment on above: Order Comment: Speci men Type: BLOOD SPECIMENOrdering Facility: [facility] Address: [address] [place] [address] Performed By: #### 5 7021-8 ####[facility] AUGIENCTERESAA [id number] [place] [address] [place] [facility] [place] Platelets (Bld) [#/Vol] 331 10*3/uL Normal 150-400 [facility] Comment on above: Order Comment: Speci men Type: BLOOD SPECIMENOrdering Facility: [facility] Address: [address] [place] [address] Performed By: #### 5 7021-8 ####[facility] HOSPITALNCTERESAA [id number] [place] [address] [place] RBC (Bld) [#/Vol] 4.13 10*6/uL Normal 3.90-5.20 [facility] Comment on above: Order Comment: Speci men Type: BLOOD SPECIMENOrdering Facility: [facility] Address: [address] [place] [address] Performed By: #### 5 7021-8 ####[facility] COMM[facility] HOSPITALNCA [id number] [place] [address] [place] WBC (Bld) [#/Vol] 7.52 10*3/uL Normal 3.70-11.00 [facility] Comment on above: Order Comment: Speci men Type: BLOOD SPECIMENOrdering Facility: [facility] Address: [address] [place] [address] Performed By: #### 5 7021-8 ####[facility] HOSPITALNCLIA [id number] [place] [address] [place] CNOVSPon 12-20-2023 CNOVSP Normal [facility] CNPNon 12-20-2023 CNPN Normal [facility] Cancer Ag125 SerPl-aCncon Cancer Ag 125 Qn 240 [arb'U]/mL High <39 [facility] Comment on above: Order Comment: Speci men Type: BLOOD SPECIMENOrdering Facility: [facility] Address: [address] [place] [address] Result Comment: CA 1 25 test methodology used is the Electrochemiluminescence Immunoassay by [employer]. Results obtained with different methods or kits cannot be used interchangeably.The reference interval is based on the 95th percentile of 240 apparently healthy premenopausal and postmenopausal women. At a cutoff value of 65 U/mL, the test sensitivity to distinguish ovarian carcinoma (FIGO stage I to IV) versus benign gynecological disease is 79%, with a specificity of 82%.Reference: Cancer Antigen 125 (CA 125 II) [package insert V 1.0 [place]]. [employer], [place], [place] (July 2015) Performed By: #### 1 0334-1 ####[facility] LABCLIA [id number] [place] [address] [place] Comprehensive metabolic 2000 panelon 12-20-2023 Albumin [Mass/Vol] 4.3 g/dL 3.9 - 4.9 g/dL [facility] ALP [Catalytic activity/Vol] 67 U/L 34 - 123 U/L [facility] ALT [Catalytic activity/Vol] 24 U/L 7 - 38 U/L [facility] Anion gap [Moles/Vol] 8 mmol/L Low 9 - 18 mmol/L [facility] AST [Catalytic activity/Vol] 26 U/L 13 - 35 U/L [facility] Bilirubin [Mass/Vol] 0.4 mg/dL 0.2 - 1 .3 mg/dL [facility] Calcium [Mass/Vol] 9.9 mg/dL 8.5 - 10. 2 mg/dL [facility] Chloride [Moles/Vol] 102 mmol/L 97 - 10 5 mmol/L [facility] CO2 [Moles/Vol] 26 mmol/L 22 - 30 mmol/L [facility] Creatinine [Mass/Vol] 0.84 mg/dL 0.58 - 0.96 mg/dL [facility] Estimated Glomerular Filtration Rate 81 mL/min/1.73m >=60 mL/min/1.73 m [facility] Glucose [Mass/Vol] 113 mg/dL High 74 - 99 mg/dL [facility] Potassium [Moles/Vol] 4.1 mmol/L 3.7 - 5.1 mmol/L [facility] Protein [Mass/Vol] 7.7 g/dL 6.3 - 8.0 g/dL [facility] Sodium [Moles/Vol] 136 mmol/L 136 - 144 mmol/L [facility] Urea nitrogen [Mass/Vol] 17 mg/dL 7 - 21 mg/dL [facility] Albumin [Mass/Vol] 4.3 g/dL Normal 3.9-4.9 [facility] Comment on above: Order Comment: Speci men Type: BLOOD SPECIMENOrdering Facility: [facility] Address: [address] [place] [address] Performed By: #### 1 9123-9, 30982-7 ####[facility] [id number] [place] [address] [place] ALP [Catalytic activity/Vol] 67 U/L Normal 34-123 [facility] Comment on above: Order Comment: Speci men Type: BLOOD SPECIMENOrdering Facility: [facility] Address: [address] [place], [place] [address] Performed By: #### 1 9123-9, 16714-8 ####[facility] [id number] [place] [address] [place] ALT [Catalytic activity/Vol] 24 U/L Normal 7-38 [facility] Comment on above: Order Comment: Speci men Type: BLOOD SPECIMENOrdering Facility: [facility] Address: [address] [place] [address] Performed By: #### 1 9123-9, 69182-7 ####[facility] HOSPITALLIA [id number] [place] [address] [place] Anion gap [Moles/Vol] 8 mmol/L Low 9-18 [facility] Comment on above: Order Comment: Speci men Type: BLOOD SPECIMENOrdering Facility: [facility] Address: [address] [place] [address] Performed By: #### 1 9123-9, 48521-5 ####[facility] MILLTOWNCLIA [id number] [place] [address] [place] AST [Catalytic activity/Vol] 26 U/L Normal 13-35 [facility] Comment on above: Order Comment: Speci men Type: BLOOD SPECIMENOrdering Facility: [facility] Address: [address] [place] [address] Performed By: #### 1 9123-9, ####[facility] MILLTOWNCLIA [id number] [place] [address] [place] Bilirubin [Mass/Vol] 0.4 mg/dL Normal 0.2-1.3 [facility] Comment on above: Order Comment: Speci men Type: BLOOD SPECIMENOrdering Facility: [facility] Address: [address] [place] [address] Performed By: #### 1 9123-9, ####[facility] CENTERWNCLIA [id number] [place] [address] [place] Calcium [Mass/Vol] 9.9 mg/dL Normal 8.5-10.2 [facility] Comment on above: Order Comment: Speci men Type: BLOOD SPECIMENOrdering Facility: [facility] Address: [address] [place] [address] Performed By: #### 1 9123-9, ####[facility] MILLTOWNCLIA [id number] [place] [address] [place] Chloride [Moles/Vol] 102 mmol/L Normal 97-105 [facility] Comment on above: Order Comment: Speci men Type: BLOOD SPECIMENOrdering Facility: [facility] Address: [address] [place] [address] Performed By: #### 1 9123-9, 09308-1 ####[facility] MILLTOWNCLIA [id number] [place] [address] [place] CO2 [Moles/Vol] 26 mmol/L Normal 22-30 [facility] Comment on above: Order Comment: Tessie cox Type: BLOOD SPECIMENOrdering Facility: [facility] Address: [address] [place] [address] Performed By: #### 1 9123-9, 98111-3 ####[facility] [id number] [place] [address] [place] Creatinine [Mass/Vol] 0.84 mg/dL Normal 0.58-0.96 [facility] Comment on above: Order Comment: Speci men Type: BLOOD SPECIMENOrdering Facility: [facility] Address: [address] [place] [address] Performed By: #### 1 9123-9, 15464-8 ####[facility] [id number] [place] [address] [place] Creatinine and Glomerular filtration rate.predicted panel (S/P/Bld) 81 mL/min/1.73m??? Normal >=60 [facility] Comment on above: Order Comment: Tessie cox Type: BLOOD SPECIMENOrdering Facility: [facility] Address: [address] [place] [address] Result Comment: [place] mated Glomerular Filtration Rate (eGFR) is calculated using the 2020 CKD-EPI creatinine equation. This equation utilizes serum creatinine, sex, and age as parameters. The creatinine assay has traceable calibration to isotope dilution-mass spectrometry. Refer to KDIGO guidelines for clinical interpretation. In patients with unstable renal function, e.g. those with acute kidney injury, the eGFR may not accurately reflect actual GFR. Performed By: #### 1 9123-9, 30150-9 ####[facility] HOSPITALNCLIA [id number] [place] [address] [place] Glucose [Mass/Vol] 113 mg/dL High 74-99 [facility] Comment on above: Order Comment: Speci men Type: BLOOD SPECIMENOrdering Facility: [facility] Address: [address] [place] [address] Result Comment: The [place] Diabetes Association (ADA) provides guidance for cutoff values for fasting glucose and random glucose. The ADA defines fasting as no caloric intake for at least 8 hours. Fasting plasma glucose results between 100 to 125 mg/dL indicate increased risk for diabetes (prediabetes).Fasting plasma glucose results greater than or equal to 126 mg/dL meet the criteria for diagnosis of diabetes. In the absence of unequivocal hyperglycemia, results should be confirmed by repeat testing. In a patient with classic symptoms of hyperglycemia or hyperglycemic crisis, random plasma glucose results greater than or equal to 200 mg/dL meet the criteria for diagnosis of diabetes.Reference: Standards of Medical Care in Diabetes 2016, [place] Diabetes Association. Diabetes Care. 2016.39(Suppl 1). Performed By: #### 1 9123-9, 08554-2 ####[facility] RES[facility]ARCH INSTITUTENely [id number] [place] [address] [place] Potassium [Moles/Vol] 4.1 mmol/L Normal 3.7-5.1 [facility] Comment on above: Order Comment: Tessie cox Type: BLOOD SPECIMENOrdering Facility: [facility] Address: [address] [place] [address] Performed By: #### 1 9123-9, 81295-4 ####[facility] HOSPITALURI [id number] [place] [address] [place] Protein [Mass/Vol] 7.7 g/dL Normal 6.3-8.0 [facility] Comment on above: Order Comment: Tessie men Type: BLOOD SPECIMENOrdering Facility: [facility] Address: [address] [place], [place] [address] Performed By: #### 1 9123-9, 56834-9 ####[facility] CENTERWNCLIA [id number] [place] [address] [place] Sodium [Moles/Vol] 136 mmol/L Normal 136-144 [facility] Comment on above: Order Comment: Speci men Type: BLOOD SPECIMENOrdering Facility: [facility] Address: [address] [place] [address] Performed By: #### 1 9123-9, 42703-3 ####[facility] HOSPITALNCLIA [id number] [place] [address] [place] Urea nitrogen [Mass/Vol] 17 mg/dL Normal 7-21 [facility] Comment on above: Order Comment: Speci men Type: BLOOD SPECIMENOrdering Facility: [facility] Address: [address] [place] [address] Performed By: #### 1 9123-9, 78131-6 ####[facility] [id number] [place] [address] [place] MAGNESIUM BLDon 12-20-2023 Magnesium [Mass/Vol] 1.8 mg/dL 1.7 - 2 .3 mg/dL [facility] Magnesium SerPl-mCncon 12-19 Magnesium [Mass/Vol] 1.8 mg/dL Normal 1.7-2.3 [facility] Comment on above: Order Comment: Speci men Type: BLOOD SPECIMENOrdering Facility: [facility] Address: [address] [place] [address] Performed By: #### 1 9123-9, 52090-1 ####[facility] INSTITUTEA [id number] [place] [address] [place] CBC W Auto Differential pane l (Bld)on 12-11-2023 Basophils (Bld) [#/Vol] 10*3/uL Normal <0.11 [facility] Comment on above: Order Comment: Speci men Type: BLOOD SPECIMENOrdering Facility: [facility] Address: [address] [place] [address] Performed By: #### 5 7021-8 ####[facility] [id number] [place] [address] [place] Basophils/100 WBC (Bld) 0.5 % Normal [facility] Comment on above: Order Comment: Speci men Type: BLOOD SPECIMENOrdering Facility: [facility] Address: [address] [place] [address] Performed By: #### 5 7021-8 ####[facility] INSTITUTEA [id number] [place] [address] [place] Differential cell count method Nom (Bld) Auto Normal [facility] Comment on above: Order Comment: Speci men Type: BLOOD SPECIMENOrdering Facility: [facility] Address: [address] [place] [address] Performed By: #### 5 7021-8 ####[facility] [id number] [place] [address] [place] Eosinophils (Bld) [#/Vol] 0.22 10*3/uL Normal <0.46 [facility] Comment on above: Order Comment: Speci men Type: BLOOD SPECIMENOrdering Facility: [facility] Address: [address] [place] [address] Performed By: #### 5 7021-8 ####[facility] [id number] [place] [address] [place] Eosinophils/100 WBC (Bld) 5.5 % Normal [facility] Comment on above: Order Comment: Speci men Type: BLOOD SPECIMENOrdering Facility: [facility] Address: [address] [place] [address] Performed By: #### 5 7021-8 ####[facility] [id number] [place] [address] [place] Erythrocyte distribution width (RBC) [Ratio] 15.7 % High 11.5-15.0 [facility] Comment on above: Order Comment: Speci men Type: BLOOD SPECIMENOrdering Facility: [facility] Address: [address] [place] [address] Performed By: #### 5 7021-8 ####[facility] DEVYNBEARDENKEV [id number] [place] [address] [place] Hematocrit (Bld) [Volume fraction] 32.9 % Low 36.0-46.0 [facility] Comment on above: Order Comment: Speci men Type: BLOOD SPECIMENOrdering Facility: [facility] Address: [address] [place] [address] Performed By: #### 5 7021-8 ####[facility] [id number] [place] [address] [place] Hemoglobin (Bld) [Mass/Vol] 10.9 g/dL Low 11.5-15.5 [facility] Comment on above: Order Comment: Speci men Type: BLOOD SPECIMENOrdering Facility: [facility] Address: [address] [place] [address] Performed By: #### 5 7021-8 ####[facility] [id number] [place] [address] [place] Immature granulocytes (Bld) [#/Vol] 10*3/uL Normal <0.10 [facility] Comment on above: Order Comment: Speci men Type: BLOOD SPECIMENOrdering Facility: [facility] Address: [address] [place] [address] Performed By: #### 5 7021-8 ####[facility] HOSPITALLIA [id number] [place] [address] [place] Immature granulocytes/100 WBC (Bld) 0.5 % Normal [facility] Comment on above: Order Comment: Speci men Type: BLOOD SPECIMENOrdering Facility: [facility] Address: [address] [place] [address] Performed By: #### 5 7021-8 ####[facility]ENTERWVALIA [id number] [place] [address] [place] Lymphocytes (Bld) [#/Vol] 1.88 10*3/uL Normal 1.00-4.00 [facility] Comment on above: Order Comment: Speci men Type: BLOOD SPECIMENOrdering Facility: [facility] Address: [address] [place] [address] Performed By: #### 5 7021-8 ####[facility] [id number] [place] [address] [place] Lymphocytes/100 WBC (Bld) 46.7 % Normal [facility] Comment on above: Order Comment: Speci men Type: BLOOD SPECIMENOrdering Facility: [facility] Address: [address] [place] [address] Performed By: #### 5 7021-8 ####[facility] [id number] [place] [address] [place] MCH (RBC) [Entitic mass] 29.1 pg Normal 26.0-34.0 [facility] Comment on above: Order Comment: Speci men Type: BLOOD SPECIMENOrdering Facility: [facility] Address: [address] [place] [address] Performed By: #### 5 7021-8 ####[facility] [id number] [place] [address] [place] MCHC (RBC) [Mass/Vol] 33.1 g/dL Normal 30.5-36.0 [facility] Comment on above: Order Comment: Speci men Type: BLOOD SPECIMENOrdering Facility: [facility] Address: [address] [place] [address] Performed By: #### 5 7021-8 ####[facility] HOSPITALNCLI [id number] [place] [address] [place] MCV (RBC) [Entitic vol] 87.7 fL Normal 80.0-100.0 [facility] Comment on above: Order Comment: Speci men Type: BLOOD SPECIMENOrdering Facility: [facility] Address: [address] [place] [address] Performed By: #### 5 7021-8 ####[facility] [id number] [place] [address] [place] Monocytes (Bld) [#/Vol] 0.67 10*3/uL Normal <0.87 [facility] Comment on above: Order Comment: Speci men Type: BLOOD SPECIMENOrdering Facility: [facility] Address: [address] [place] [address] Performed By: #### 5 7021-8 ####[facility] [id number] [place] [address] [place] Monocytes/100 WBC (Bld) 16.6 % Normal [facility] Comment on above: Order Comment: Speci men Type: BLOOD SPECIMENOrdering Facility: [facility] Address: [address] [place] [address] Performed By: #### 5 7021-8 ####[facility] [id number] [place] [address] [place] Neutrophils (Bld) [#/Vol] 1.22 10*3/uL Low 1.45-7.50 [facility] Comment on above: Order Comment: Speci men Type: BLOOD SPECIMENOrdering Facility: [facility] Address: [address] [place] [address] Performed By: #### 5 7021-8 ####[facility] [id number] [place] [address] [place] Neutrophils/100 WBC (Bld) 30.2 % Normal [facility] Comment on above: Order Comment: Speci men Type: BLOOD SPECIMENOrdering Facility: [facility] Address: [address] [place] [address] Performed By: #### 5 7021-8 ####[facility] DEVYNBEARDENKEV [id number] [place] [address] [place] Nucleated RBC (Bld) [#/Vol] 10*3/uL Normal <0.01 [facility] Comment on above: Order Comment: Speci men Type: BLOOD SPECIMENOrdering Facility: [facility] Address: [address] [place] [address] Performed By: #### 5 7021-8 ####[facility] [id number] [place] [address] [place] Nucleated RBC/100 WBC (Bld) [Ratio] 0.0 /100 WBC Normal [facility] Comment on above: Order Comment: Speci men Type: BLOOD SPECIMENOrdering Facility: [facility] Address: [address] [place] [address] Performed By: #### 5 7021-8 ####[facility] [id number] [place] [address] [place] Platelet mean volume (Bld) [Entitic vol] 9.5 fL Normal 9.0-12.7 [facility] Comment on above: Order Comment: Speci men Type: BLOOD SPECIMENOrdering Facility: [facility] Address: [address] [place] [address] Performed By: #### 5 7021-8 ####[facility] HOSPITALNCLIA [id number] [place] [address] [place] Platelets (Bld) [#/Vol] 210 10*3/uL Normal 150-400 [facility] Comment on above: Order Comment: Speci men Type: BLOOD SPECIMENOrdering Facility: [facility] Address: [address] [place] [address] Performed By: #### 5 7021-8 ####[facility] HOSPITALNCLIA [id number] [place] [address] [place] RBC (Bld) [#/Vol] 3.75 10*6/uL Low 3.90-5.20 [facility] Comment on above: Order Comment: Speci men Type: BLOOD SPECIMENOrdering Facility: [facility] Address: [address] [place] [address] Performed By: #### 5 7021-8 ####[facility] [id number] [place] [address] [place] WBC (Bld) [#/Vol] 4.03 10*3/uL Normal 3.70-11.00 [facility] Comment on above: Order Comment: Speci men Type: BLOOD SPECIMENOrdering Facility: [facility] Address: [address] [place] [address] Performed By: #### 5 7021-8 ####[facility] [id number] [place] [address] [place] CT ABD/PEL W IVCONon 024 CT ABD/PEL W IVCON Normal [facility] CT CHEST W IVCONon 4 CT CHEST W IVCON Normal [facility] Cancer Ag125 SerPl-aCncon Cancer Ag 125 Qn 216 [arb'U]/mL High <39 [facility] Comment on above: Order Comment: Speci men Type: BLOOD SPECIMENOrdering Facility: [facility] Address: [address] [place] [address] Result Comment: CA 1 25 test methodology used is the Electrochemiluminescence Immunoassay by [employer]. Results obtained with different methods or kits cannot be used interchangeably.The reference interval is based on the 95th percentile of 240 apparently healthy premenopausal and postmenopausal women. At a cutoff value of 65 U/mL, the test sensitivity to distinguish ovarian carcinoma (FIGO stage I to IV) versus benign gynecological disease is 79%, with a specificity of 82%.Reference: Cancer Antigen 125 (CA 125 II) [package insert V 1.0 [place]]. [employer], [place], [place] (July 2015) Performed By: #### 1 0334-1 ####[facility] LABCLIA [id number] [facility] [place] [address] [place] Comprehensive metabolic 2000 panelon 12-11-2023 Albumin [Mass/Vol] 4.0 g/dL Normal 3.9-4.9 [facility] Comment on above: Order Comment: Speci men Type: BLOOD SPECIMENOrdering Facility: [facility] Address: [address] [place] [address] Performed By: #### 2 4323-8, ####[facility] HOSPITALKEV [id number] [place] [address] [place] ALP [Catalytic activity/Vol] 69 U/L Normal 34-123 [facility] Comment on above: Order Comment: Speci men Type: BLOOD SPECIMENOrdering Facility: [facility] Address: [address] [place] [address] Performed By: #### 2 4323-8, ####[facility] INSTITUTENely [id number] [place] [address] [place] ALT [Catalytic activity/Vol] 28 U/L Normal 7-38 [facility] Comment on above: Order Comment: Speci men Type: BLOOD SPECIMENOrdering Facility: [facility] Address: [address] [place] [address] Performed By: #### 2 4323-8, ####[facility] HOSPITALTERESA [id number] [place] [address] [place] Anion gap [Moles/Vol] 8 mmol/L Low 9-18 [facility] Comment on above: Order Comment: Speci men Type: BLOOD SPECIMENOrdering Facility: [facility] Address: [address] [place] [address] Performed By: #### 2 4323-8, 30980-4 ####[facility] TIMO MILLTOWNCLIA [id number] [place] [address] [place] AST [Catalytic activity/Vol] 29 U/L Normal 13-35 [facility] Comment on above: Order Comment: Speci men Type: BLOOD SPECIMENOrdering Facility: [facility] Address: [address] [place] [address] Performed By: #### 2 4323-8, ####[facility] MILLTOWNCLIA [id number] [place] [address] [place] Bilirubin [Mass/Vol] 0.2 mg/dL Normal 0.2-1.3 [facility] Comment on above: Order Comment: Speci men Type: BLOOD SPECIMENOrdering Facility: [facility] Address: [address] [place] [address] Performed By: #### 2 432-8, 11842-0 ####[facility] MILLTOWNCLIA [id number] [place] [address] [place] Calcium [Mass/Vol] 9.1 mg/dL Normal 8.5-10.2 [facility] Comment on above: Order Comment: Speci men Type: BLOOD SPECIMENOrdering Facility: [facility] Address: [address] [place] [address] Performed By: #### 2 4323-8, ####[facility] MILLTOWNCLIA [id number] [place] [address] [place] Chloride [Moles/Vol] 100 mmol/L Normal 97-105 [facility] Comment on above: Order Comment: Speci men Type: BLOOD SPECIMENOrdering Facility: [facility] Address: [address] [place] [address] Performed By: #### 2 4323-8, ####[facility] [id number] [place] [address] [place] CO2 [Moles/Vol] 26 mmol/L Normal 22-30 [facility] Comment on above: Order Comment: Speci men Type: BLOOD SPECIMENOrdering Facility: [facility] Address: [address] [place] [address] Performed By: #### 2 4323-8, ####[facility] [id number] [place] [address] [place] Creatinine [Mass/Vol] 0.81 mg/dL Normal 0.58-0.96 [facility] Comment on above: Order Comment: Speci men Type: BLOOD SPECIMENOrdering Facility: [facility] Address: [address] [place] [address] Performed By: #### 2 4323-8, ####[facility] [id number] [place] [address] [place] Creatinine and Glomerular filtration rate.predicted panel (S/P/Bld) 84 mL/min/1.73m??? Normal >=60 [facility] Comment on above: Order Comment: Speci men Type: BLOOD SPECIMENOrdering Facility: [facility] Address: [address] [place] [address] Result Comment: [place] mated Glomerular Filtration Rate (eGFR) is calculated using the 2020 CKD-EPI creatinine equation. This equation utilizes serum creatinine, sex, and age as parameters. The creatinine assay has traceable calibration to isotope dilution-mass spectrometry. Refer to KDIGO guidelines for clinical interpretation. In patients with unstable renal function, e.g. those with acute kidney injury, the eGFR may not accurately reflect actual GFR. Performed By: #### 2 4323-8, ####[facility] HOSPITALLI [id number] [place] [address] [place] Glucose [Mass/Vol] 91 mg/dL Normal 74-99 [facility] Comment on above: Order Comment: Tessie cox Type: BLOOD SPECIMENOrdering Facility: [facility] Address: [address] [place], [place] [address] Result Comment: The [place] Diabetes Association (ADA) provides guidance for cutoff values for fasting glucose and random glucose. The ADA defines fasting as no caloric intake for at least 8 hours. Fasting plasma glucose results between 100 to 125 mg/dL indicate increased risk for diabetes (prediabetes).Fasting plasma glucose results greater than or equal to 126 mg/dL meet the criteria for diagnosis of diabetes. In the absence of unequivocal hyperglycemia, results should be confirmed by repeat testing. In a patient with classic symptoms of hyperglycemia or hyperglycemic crisis, random plasma glucose results greater than or equal to 200 mg/dL meet the criteria for diagnosis of diabetes.Reference: Standards of Medical Care in Diabetes 2016, [place] Diabetes Association. Diabetes Care. 2016.39(Suppl 1). Performed By: #### 2 4323-8, ####[facility] YOSSI [id number] [place] [address] [place] Potassium [Moles/Vol] 4.2 mmol/L Normal 3.7-5.1 [facility] Comment on above: Order Comment: Tessie cox Type: BLOOD SPECIMENOrdering Facility: [facility] Address: [address] [place], [place] [address] Performed By: #### 2 4323-8, ####[facility] CECILIAKEV [id number] [place] [address] [place] Protein [Mass/Vol] 7.0 g/dL Normal 6.3-8.0 [facility] Comment on above: Order Comment: Tessie cox Type: BLOOD SPECIMENOrdering Facility: [facility] Address: [address] [place], [place] [address] Performed By: #### 2 4323-8, ####[facility] HEALTHMADDIEWIESHALINely [id number] [place] [address] [place] Sodium [Moles/Vol] 134 mmol/L Low 136-144 [facility] Comment on above: Order Comment: Speci men Type: BLOOD SPECIMENOrdering Facility: [facility] Address: [facility] [place] [address] Performed By: #### 2 4323-8, 31926-8 ####[facility] [id number] [place] [address] [place] Urea nitrogen [Mass/Vol] 12 mg/dL Normal 7-21 [facility] Comment on above: Order Comment: Speci men Type: BLOOD SPECIMENOrdering Facility: [facility] Address: [address] [place] [address] Performed By: #### 2 4323-8, ####[facility] [id number] [place] [address] [place] Magnesium SerPl-mCncon 12-11 Magnesium [Mass/Vol] 2.1 mg/dL Normal 1.7-2.3 [facility] Comment on above: Order Comment: Speci men Type: BLOOD SPECIMENOrdering Facility: [facility] Address: [address] [place] [address] Performed By: #### 2 4323-8, 95822-6 ####[facility] [id number] [place] [address] [place] CNPNon 12-07-2023 CNPN Normal [facility] CA 125 BLDon 11-29-2023 Cancer Ag 125 Qn 194 [arb'U]/mL High <39 U/mL [facility] CBC W Auto Differential pane l (Bld)on 11-29-2023 Basophils (Bld) [#/Vol] 0.05 10*3/uL <0.11 k/uL [facility] Basophils/100 WBC (Bld) 0.6 % [facility] Differential cell count method Nom (Bld) Auto [facility] Eosinophils (Bld) [#/Vol] 0.14 10*3/uL <0.46 k/uL [facility] Eosinophils/100 WBC (Bld) 1.6 % [facility] Erythrocyte distribution width (RBC) [Ratio] 15.4 % High 11.5 - 15.0 % [facility] Hematocrit (Bld) [Volume fraction] 34.7 % Low 36.0 - 46.0 % [facility] Hemoglobin (Bld) [Mass/Vol] 11.3 g/dL Low 11.5 - 15.5 g/dL [facility] Immature granulocytes (Bld) [#/Vol] <0.10 k/uL [facility] Immature granulocytes/100 WBC (Bld) 0.2 % [facility] Lymphocytes (Bld) [#/Vol] 1.93 10*3/uL 1.00 - 4.00 k/uL [facility] Lymphocytes/100 WBC (Bld) 22.1 % [facility] MCH (RBC) [Entitic mass] 29.0 pg 26.0 - 34.0 pg [facility] MCHC (RBC) [Mass/Vol] 32.6 g/dL 30.5 - 36.0 g/dL [facility] MCV (RBC) [Entitic vol] 89.0 fL 80.0 - 100.0 fL [facility] Monocytes (Bld) [#/Vol] 0.64 10*3/uL <0.87 k/uL [facility] Monocytes/100 WBC (Bld) 7.3 % [facility] Neutrophils (Bld) [#/Vol] 5.94 10*3/uL 1.45 - 7.50 k/uL [facility] Neutrophils/100 WBC (Bld) 68.2 % [facility] Nucleated RBC (Bld) [#/Vol] <0.01 k/uL [facility] Nucleated RBC/100 WBC (Bld) [Ratio] 0.0 /100 WBC [facility] Platelet mean volume (Bld) [Entitic vol] 9.3 fL 9.0 - 12.7 fL [facility] Platelets (Bld) [#/Vol] 472 10*3/uL High 150 - 400 k/uL [facility] RBC (Bld) [#/Vol] 3.90 10*6/uL 3.90 - 5.2 0 m/uL [facility] WBC (Bld) [#/Vol] 8.72 10*3/uL 3.70 - 11.00 k/uL [facility] Basophils (Bld) [#/Vol] 0.05 10*3/uL Normal <0.11 [facility] Comment on above: Order Comment: Speci men Type: BLOOD SPECIMENOrdering Facility: [facility] Address: [address] [place] [address] Performed By: #### 5 7021-8 ####[facility] MILLWNCLIA [id number] [place] [address] [place] Basophils/100 WBC (Bld) 0.6 % Normal [facility] Comment on above: Order Comment: Speci men Type: BLOOD SPECIMENOrdering Facility: [facility] Address: [address] [place] [address] Performed By: #### 5 7021-8 ####[facility] [id number] [place] [address] [place] Differential cell count method Nom (Bld) Auto Normal [facility] Comment on above: Order Comment: Speci men Type: BLOOD SPECIMENOrdering Facility: [facility] Address: [address] [place] [address] Performed By: #### 5 7021-8 ####[facility] [id number] [place] [address] [place] Eosinophils (Bld) [#/Vol] 0.14 10*3/uL Normal <0.46 [facility] Comment on above: Order Comment: Speci men Type: BLOOD SPECIMENOrdering Facility: [facility] Address: [address] [place] [address] Performed By: #### 5 7021-8 ####[facility] [id number] [place] [address] [place] Eosinophils/100 WBC (Bld) 1.6 % Normal [facility] Comment on above: Order Comment: Speci men Type: BLOOD SPECIMENOrdering Facility: [facility] Address: [address] [place] [address] Performed By: #### 5 7021-8 ####[facility] DEVYNBEARDENKEV [id number] [place] [address] [place] Erythrocyte distribution width (RBC) [Ratio] 15.4 % High 11.5-15.0 [facility] Comment on above: Order Comment: Speci men Type: BLOOD SPECIMENOrdering Facility: [facility] Address: [address] [place] [address] Performed By: #### 5 7021-8 ####[facility]ITALNC[facility] [id number] [place] [address] [place] Hematocrit (Bld) [Volume fraction] 34.7 % Low 36.0-46.0 [facility] Comment on above: Order Comment: Speci men Type: BLOOD SPECIMENOrdering Facility: [facility] Address: [address] [place] [address] Performed By: #### 5 7021-8 ####[facility] [id number] [place] [address] [place] Hemoglobin (Bld) [Mass/Vol] 11.3 g/dL Low 11.5-15.5 [facility] Comment on above: Order Comment: Speci men Type: BLOOD SPECIMENOrdering Facility: [facility] Address: [address] [place] [address] Performed By: #### 5 7021-8 ####[facility] HOSPITALNCLIA [id number] [place] [address] [place] Immature granulocytes (Bld) [#/Vol] 10*3/uL Normal <0.10 [facility] Comment on above: Order Comment: Speci men Type: BLOOD SPECIMENOrdering Facility: [facility] Address: [address] [place] [address] Performed By: #### 5 7021-8 ####[facility] DEVYNBEARDENNCLIA [id number] [place] [address] [place] Immature granulocytes/100 WBC (Bld) 0.2 % Normal [facility] Comment on above: Order Comment: Speci men Type: BLOOD SPECIMENOrdering Facility: [facility] Address: [address] [place] [address] Performed By: #### 5 7021-8 ####[facility] [id number] [place] [address] [place] Lymphocytes (Bld) [#/Vol] 1.93 10*3/uL Normal 1.00-4.00 [facility] Comment on above: Order Comment: Speci men Type: BLOOD SPECIMENOrdering Facility: [facility] Address: [address] [place] [address] Performed By: #### 5 7021-8 ####[facility] [id number] [place] [address] [place] Lymphocytes/100 WBC (Bld) 22.1 % Normal [facility] Comment on above: Order Comment: Speci men Type: BLOOD SPECIMENOrdering Facility: [facility] Address: [address] [place] [address] Performed By: #### 5 7021-8 ####[facility] [id number] [place] [address] [place] MCH (RBC) [Entitic mass] 29.0 pg Normal 26.0-34.0 [facility] Comment on above: Order Comment: Speci men Type: BLOOD SPECIMENOrdering Facility: [facility] Address: [address] [place] [address] Performed By: #### 5 7021-8 ####[facility] HOSPITALNCLI [id number] [place] [address] [place] MCHC (RBC) [Mass/Vol] 32.6 g/dL Normal 30.5-36.0 [facility] Comment on above: Order Comment: Speci men Type: BLOOD SPECIMENOrdering Facility: [facility] Address: [address] [place] [address] Performed By: #### 5 7021-8 ####[facility] [id number] [place] [address] [place] MCV (RBC) [Entitic vol] 89.0 fL Normal 80.0-100.0 [facility] Comment on above: Order Comment: Speci men Type: BLOOD SPECIMENOrdering Facility: [facility] Address: [address] [place] [address] Performed By: #### 5 7021-8 ####[facility]ITALNC[facility] [id number] [place] [address] [place] Monocytes (Bld) [#/Vol] 0.64 10*3/uL Normal <0.87 [facility] Comment on above: Order Comment: Speci men Type: BLOOD SPECIMENOrdering Facility: [facility] Address: [address] [place] [address] Performed By: #### 5 7021-8 ####[facility] [id number] [place] [address] [place] Monocytes/100 WBC (Bld) 7.3 % Normal [facility] Comment on above: Order Comment: Speci men Type: BLOOD SPECIMENOrdering Facility: [facility] Address: [address] [place] [address] Performed By: #### 5 7021-8 ####[facility] [id number] [place] [address] [place] Neutrophils (Bld) [#/Vol] 5.94 10*3/uL Normal 1.45-7.50 [facility] Comment on above: Order Comment: Speci men Type: BLOOD SPECIMENOrdering Facility: [facility] Address: [address] [place] [address] Performed By: #### 5 7021-8 ####[facility] DEVYNDAHLIAA [id number] [place] [address] [place] Neutrophils/100 WBC (Bld) 68.2 % Normal [facility] Comment on above: Order Comment: Speci men Type: BLOOD SPECIMENOrdering Facility: [facility] Address: [address] [place] [address] Performed By: #### 5 7021-8 ####[facility] [id number] [place] [address] [place] Nucleated RBC (Bld) [#/Vol] 10*3/uL Normal <0.01 [facility] Comment on above: Order Comment: Speci men Type: BLOOD SPECIMENOrdering Facility: [facility] Address: [address] [place] [address] Performed By: #### 5 7021-8 ####[facility] [id number] [place] [address] [place] Nucleated RBC/100 WBC (Bld) [Ratio] 0.0 /100 WBC Normal [facility] Comment on above: Order Comment: Speci men Type: BLOOD SPECIMENOrdering Facility: [facility] Address: [address] [place] [address] Performed By: #### 5 7021-8 ####[facility] DEVYNBEARDENIESHALIA [id number] [place] [address] [place] Platelet mean volume (Bld) [Entitic vol] 9.3 fL Normal 9.0-12.7 [facility] Comment on above: Order Comment: Speci men Type: BLOOD SPECIMENOrdering Facility: [facility] Address: [address] [place] [address] Performed By: #### 5 7021-8 ####[facility] HOSPITALNCLIA [id number] [place] [address] [place] Platelets (Bld) [#/Vol] 472 10*3/uL High 150-400 [facility] Comment on above: Order Comment: Speci men Type: BLOOD SPECIMENOrdering Facility: [facility] Address: [address] [place] [address] Performed By: #### 5 7021-8 ####[facility] COMM[facility] HOSPITALNCA [id number] [place] [address] [place] RBC (Bld) [#/Vol] 3.90 10*6/uL Normal 3.90-5.20 [facility] Comment on above: Order Comment: Speci men Type: BLOOD SPECIMENOrdering Facility: [facility] Address: [address] [place] [address] Performed By: #### 5 7021-8 ####[facility] [id number] [place] [address] [place] WBC (Bld) [#/Vol] 8.72 10*3/uL Normal 3.70-11.00 [facility] Comment on above: Order Comment: Speci men Type: BLOOD SPECIMENOrdering Facility: [facility] Address: [address] [place] [address] Performed By: #### 5 7021-8 ####[facility] [id number] [place] [address] [place] CNOVSPon 11-29-2023 CNOVSP Normal [facility] CNPNon 11-29-2023 CNPN Normal [facility] Cancer Ag125 SerPl-aCncon Cancer Ag 125 Qn 194 [arb'U]/mL High <39 [facility] Comment on above: Order Comment: Speci men Type: BLOOD SPECIMENOrdering Facility: [facility] Address: [address] [place] [address] Result Comment: CA 1 25 test methodology used is the Electrochemiluminescence Immunoassay by [employer]. Results obtained with different methods or kits cannot be used interchangeably.The reference interval is based on the 95th percentile of 240 apparently healthy premenopausal and postmenopausal women. At a cutoff value of 65 U/mL, the test sensitivity to distinguish ovarian carcinoma (FIGO stage I to IV) versus benign gynecological disease is 79%, with a specificity of 82%.Reference: Cancer Antigen 125 (CA 125 II) [package insert V 1.0 [place]]. [employer], [place], [place] (July 2015) Performed By: #### 1 0334-1 ####[facility] LABCLIA [id number] [facility] [id number] [place], [place] [id number] [facility] [place] Comprehensive metabolic 2000 panelon 11-29-2023 Albumin [Mass/Vol] 3.8 g/dL Low 3.9 - 4.9 g/dL [facility] ALP [Catalytic activity/Vol] 71 U/L 34 - 123 U/L [facility] ALT [Catalytic activity/Vol] 24 U/L 7 - 38 U/L [facility] Anion gap [Moles/Vol] 9 mmol/L 9 - 18 mmol/L [facility] AST [Catalytic activity/Vol] 26 U/L 13 - 35 U/L [facility] Bilirubin [Mass/Vol] 0.2 mg/dL 0.2 - 1 .3 mg/dL [facility] Calcium [Mass/Vol] 9.8 mg/dL 8.5 - 10. 2 mg/dL [facility] Chloride [Moles/Vol] 102 mmol/L 97 - 10 5 mmol/L [facility] CO2 [Moles/Vol] 26 mmol/L 22 - 30 mmol/L [facility] Creatinine [Mass/Vol] 0.80 mg/dL 0.58 - 0.96 mg/dL [facility] Estimated Glomerular Filtration Rate 86 mL/min/1.73m >=60 mL/min/1.73 m [facility] Glucose [Mass/Vol] 135 mg/dL High 74 - 99 mg/dL [facility] Potassium [Moles/Vol] 4.4 mmol/L 3.7 - 5.1 mmol/L [facility] Protein [Mass/Vol] 7.1 g/dL 6.3 - 8.0 g/dL [facility] Sodium [Moles/Vol] 137 mmol/L 136 - 144 mmol/L [facility] Urea nitrogen [Mass/Vol] 20 mg/dL 7 - 21 mg/dL [facility] Albumin [Mass/Vol] 3.8 g/dL Low 3.9-4.9 [facility] Comment on above: Order Comment: Speci men Type: BLOOD SPECIMENOrdering Facility: [facility] Address: [address] [place] [address] Performed By: #### 1 9123-9, 68540-9 ####[facility] MILLTOWNCLIA [id number] [place] [address] [place] ALP [Catalytic activity/Vol] 71 U/L Normal 34-123 [facility] Comment on above: Order Comment: Speci men Type: BLOOD SPECIMENOrdering Facility: [facility] Address: [address] [place] [address] Performed By: #### 1 9123-9, 95748-4 ####[facility] HOSPITALLIA [id number] [place] [address] [place] ALT [Catalytic activity/Vol] 24 U/L Normal 7-38 [facility] Comment on above: Order Comment: Speci men Type: BLOOD SPECIMENOrdering Facility: [facility] Address: [address] [place] [address] Performed By: #### 1 9123-9, 59308-6 ####[facility] MILLBEARDENNCLIA [id number] [place] [address] [place] Anion gap [Moles/Vol] 9 mmol/L Normal 9-18 [facility] Comment on above: Order Comment: Speci men Type: BLOOD SPECIMENOrdering Facility: [facility] Address: [address] [place] [address] Performed By: #### 1 9123-9, 65985-3 ####[facility] HOSPITALIESHALIA [id number] [place] [address] [place] AST [Catalytic activity/Vol] 26 U/L Normal 13-35 [facility] Comment on above: Order Comment: Speci men Type: BLOOD SPECIMENOrdering Facility: [facility] Address: [address] [place] [address] Performed By: #### 1 9123-9, 46487-2 ####[facility] MILLTOWIESHALIA [id number] [place] [address] [place] Bilirubin [Mass/Vol] 0.2 mg/dL Normal 0.2-1.3 [facility] Comment on above: Order Comment: Speci men Type: BLOOD SPECIMENOrdering Facility: [facility] Address: [address] [place] [address] Performed By: #### 1 9123-9, 42588-5 ####[facility] CENTERWIESHALIA [id number] [place] [address] [place] Calcium [Mass/Vol] 9.8 mg/dL Normal 8.5-10.2 [facility] Comment on above: Order Comment: Speci men Type: BLOOD SPECIMENOrdering Facility: [facility] Address: [address] [place] [address] Performed By: #### 1 9123-9, 55799-6 ####[facility] CENTERWIESHALIA [id number] [place] [address] [place] Chloride [Moles/Vol] 102 mmol/L Normal 97-105 [facility] Comment on above: Order Comment: Speci men Type: BLOOD SPECIMENOrdering Facility: [facility] Address: [address] [place] [address] Performed By: #### 1 9123-9, 13223-9 ####[facility] TIMO MILLTOWNCLIA [id number] [place] [address] [place] CO2 [Moles/Vol] 26 mmol/L Normal 22-30 [facility] Comment on above: Order Comment: Speci men Type: BLOOD SPECIMENOrdering Facility: [facility] Address: [address] [place] [address] Performed By: #### 1 9123-9, ####[facility] [id number] [place] [address] [place] Creatinine [Mass/Vol] 0.80 mg/dL Normal 0.58-0.96 [facility] Comment on above: Order Comment: Speci men Type: BLOOD SPECIMENOrdering Facility: [facility] Address: [address] [place] [address] Performed By: #### 1 9123-9, ####[facility]ITALNCASH[facility] [id number] [place] [address] [place] Creatinine and Glomerular filtration rate.predicted panel (S/P/Bld) 86 mL/min/1.73m??? Normal >=60 [facility] Comment on above: Order Comment: Speci men Type: BLOOD SPECIMENOrdering Facility: [facility] Address: [address] [place] [address] Result Comment: [place] mated Glomerular Filtration Rate (eGFR) is calculated using the 2020 CKD-EPI creatinine equation. This equation utilizes serum creatinine, sex, and age as parameters. The creatinine assay has traceable calibration to isotope dilution-mass spectrometry. Refer to KDIGO guidelines for clinical interpretation. In patients with unstable renal function, e.g. those with acute kidney injury, the eGFR may not accurately reflect actual GFR. Performed By: #### 1 9123-9, ####[facility] [id number] [place] [address] [place] Glucose [Mass/Vol] 135 mg/dL High 74-99 [facility] Comment on above: Order Comment: Speci men Type: BLOOD SPECIMENOrdering Facility: [facility] Address: [address] [place] [address] Result Comment: The [place] Diabetes Association (ADA) provides guidance for cutoff values for fasting glucose and random glucose. The ADA defines fasting as no caloric intake for at least 8 hours. Fasting plasma glucose results between 100 to 125 mg/dL indicate increased risk for diabetes (prediabetes).Fasting plasma glucose results greater than or equal to 126 mg/dL meet the criteria for diagnosis of diabetes. In the absence of unequivocal hyperglycemia, results should be confirmed by repeat testing. In a patient with classic symptoms of hyperglycemia or hyperglycemic crisis, random plasma glucose results greater than or equal to 200 mg/dL meet the criteria for diagnosis of diabetes.Reference: Standards of Medical Care in Diabetes 2016, [place] Diabetes Association. Diabetes Care. 2016.39(Suppl 1). Performed By: #### 1 9123-9, 80619-3 ####[facility] RESEARCH INSTITUTENely [id number] [place] [address] [place] Potassium [Moles/Vol] 4.4 mmol/L Normal 3.7-5.1 [facility] Comment on above: Order Comment: Speci men Type: BLOOD SPECIMENOrdering Facility: [facility] Address: [address] [place] [address] Performed By: #### 1 9123-9, 79894-2 ####[facility] RESEARCH INSTITUTENely [id number] [place] [address] [place] Protein [Mass/Vol] 7.1 g/dL Normal 6.3-8.0 [facility] Comment on above: Order Comment: Speci men Type: BLOOD SPECIMENOrdering Facility: [facility] Address: [address] [place], [place] [address] Performed By: #### 1 9123-9, 54280-4 ####[facility] [id number] [place] [address] [place] Sodium [Moles/Vol] 137 mmol/L Normal 136-144 [facility] Comment on above: Order Comment: Speci men Type: BLOOD SPECIMENOrdering Facility: [facility] Address: [address] [id number] Performed By: #### 1 9123-9, 74408-8 ####[facility] TIMO SHEPARDALYSSIA [id number] [place] [address] [place] Urea nitrogen [Mass/Vol] 20 mg/dL Normal 7-21 [facility] Comment on above: Order Comment: Speci men Type: BLOOD SPECIMENOrdering Facility: [facility] Address: [facility] [place] [address] Performed By: #### 1 9123-9, 64054-6 ####[facility] DEVYNNALLELYLINely [id number] [place] [address] [place] MAGNESIUM BLDon 11-29-2023 Magnesium [Mass/Vol] 1.8 mg/dL 1.7 - 2 .3 mg/dL [facility] Magnesium SerPl-mCncon 11-29 Magnesium [Mass/Vol] 1.8 mg/dL Normal 1.7-2.3 [facility] Comment on above: Order Comment: Speci men Type: BLOOD SPECIMENOrdering Facility: [facility] Address: [facility] [place] [address] Performed By: #### 1 9123-9, 28131-7 ####[facility] DEVYNBEARDENNCLIA [id number] [place] [address] [place] No Panel Informationon 11-29 [facility] XR ABD 2V SUPINE W UPR/DECUB /CTLon 11-29-2023 XR ABD 2V SUPINE W UPR/DECUB/CTL Normal [facility] XR CHEST 1V FRONTALon 2023 XR CHEST 1V FRONTAL Normal [facility] CNPNon 11-21-2023 CNPN Normal [facility] CNCNPATEDon 11-17-2023 CNCNPATED Normal [facility] CNPNon 11-14-2023 CNPN Normal [facility] CNOVSPon 11-08-2023 CNOVSP Normal [facility] XR CHEST 2V FRONTAL/LATon XR CHEST 2V FRONTAL/LAT Normal [facility] CBC W Auto Differential pane l (Bld)on 11-07-2023 Basophils (Bld) [#/Vol] 0.04 10*3/uL Normal <0.11 [facility] Comment on above: Order Comment: Speci men Type: BLOOD SPECIMENOrdering Facility: [facility] Address: [address] [place] [address] Performed By: #### 5 7021-8 ####[facility] MILLWNCLIA [id number] [place] [address] [place] Basophils/100 WBC (Bld) 0.6 % Normal [facility] Comment on above: Order Comment: Speci men Type: BLOOD SPECIMENOrdering Facility: [facility] Address: [address] [place] [address] Performed By: #### 5 7021-8 ####[facility] HOSPITALLIA [id number] [place] [address] [place] Differential cell count method Nom (Bld) Auto Normal [facility] Comment on above: Order Comment: Speci men Type: BLOOD SPECIMENOrdering Facility: [facility] Address: [address] [place] [address] Performed By: #### 5 7021-8 ####[facility] HOSPITALLIA [id number] [place] [address] [place] Eosinophils (Bld) [#/Vol] 0.29 10*3/uL Normal <0.46 [facility] Comment on above: Order Comment: Speci men Type: BLOOD SPECIMENOrdering Facility: [facility] Address: [address] [place] [address] Performed By: #### 5 7021-8 ####[facility] HOSPITALNCLIA [id number] [place] [address] [place] Eosinophils/100 WBC (Bld) 4.6 % Normal [facility] Comment on above: Order Comment: Speci men Type: BLOOD SPECIMENOrdering Facility: [facility] Address: [address] [place] [address] Performed By: #### 5 7021-8 ####[facility] YOSSI [id number] [place] [address] [place] Erythrocyte distribution width (RBC) [Ratio] 15.1 % High 11.5-15.0 [facility] Comment on above: Order Comment: Speci men Type: BLOOD SPECIMENOrdering Facility: [facility] Address: [address] [place] [address] Performed By: #### 5 7021-8 ####[facility] COMM[facility] HOSPITALKEV [id number] [place] [address] [place] Hematocrit (Bld) [Volume fraction] 36.3 % Normal 36.0-46.0 [facility] Comment on above: Order Comment: Speci men Type: BLOOD SPECIMENOrdering Facility: [facility] Address: [address] [place] [address] Performed By: #### 5 7021-8 ####[facility]STITUTEA [id number] [place] [address] [place] Hemoglobin (Bld) [Mass/Vol] 11.8 g/dL Normal 11.5-15.5 [facility] Comment on above: Order Comment: Speci men Type: BLOOD SPECIMENOrdering Facility: [facility] Address: [address] [place] [address] Performed By: #### 5 7021-8 ####[facility] HOSPITALLIA [id number] [place] [address] [place] Immature granulocytes (Bld) [#/Vol] 10*3/uL Normal <0.10 [facility] Comment on above: Order Comment: Speci men Type: BLOOD SPECIMENOrdering Facility: [facility] Address: [address] [place] [address] Performed By: #### 5 7021-8 ####[facility] MILLTOWNCLIA [id number] [place] [address] [place] Immature granulocytes/100 WBC (Bld) 0.2 % Normal [facility] Comment on above: Order Comment: Speci men Type: BLOOD SPECIMENOrdering Facility: [facility] Address: [address] [place] [address] Performed By: #### 5 7021-8 ####[facility] HOSPITALNCLIA [id number] [place] [address] [place] Lymphocytes (Bld) [#/Vol] 1.91 10*3/uL Normal 1.00-4.00 [facility] Comment on above: Order Comment: Speci men Type: BLOOD SPECIMENOrdering Facility: [facility] Address: [address] [place] [address] Performed By: #### 5 7021-8 ####[facility] HOSPITALLIA [id number] [place] [address] [place] Lymphocytes/100 WBC (Bld) 30.2 % Normal [facility] Comment on above: Order Comment: Speci men Type: BLOOD SPECIMENOrdering Facility: [facility] Address: [address] [place] [address] Performed By: #### 5 7021-8 ####[facility] CENTERWNCLIA [id number] [place] [address] [place] MCH (RBC) [Entitic mass] 28.8 pg Normal 26.0-34.0 [facility] Comment on above: Order Comment: Speci men Type: BLOOD SPECIMENOrdering Facility: [facility] Address: [address] [place] [address] Performed By: #### 5 7021-8 ####[facility] HOSPITALNCLIA [id number] [place] [address] [place] MCHC (RBC) [Mass/Vol] 32.5 g/dL Normal 30.5-36.0 [facility] Comment on above: Order Comment: Speci men Type: BLOOD SPECIMENOrdering Facility: [facility] Address: [address] [place] [address] Performed By: #### 5 7021-8 ####[facility] HOSPITALNCASH[facility] [id number] [place] [address] [place] MCV (RBC) [Entitic vol] 88.5 fL Normal 80.0-100.0 [facility] Comment on above: Order Comment: Speci men Type: BLOOD SPECIMENOrdering Facility: [facility] Address: [address] [place] [address] Performed By: #### 5 7021-8 ####[facility] HOSPITALNCASH[facility] [id number] [place] [address] [place] Monocytes (Bld) [#/Vol] 0.61 10*3/uL Normal <0.87 [facility] Comment on above: Order Comment: Speci men Type: BLOOD SPECIMENOrdering Facility: [facility] Address: [address] [place] [address] Performed By: #### 5 7021-8 ####[facility] [id number] [place] [address] [place] Monocytes/100 WBC (Bld) 9.6 % Normal [facility] Comment on above: Order Comment: Speci men Type: BLOOD SPECIMENOrdering Facility: [facility] Address: [address] [place] [address] Performed By: #### 5 7021-8 ####[facility] HOSPITALNCLIA [id number] [place] [address] [place] Neutrophils (Bld) [#/Vol] 3.47 10*3/uL Normal 1.45-7.50 [facility] Comment on above: Order Comment: Speci men Type: BLOOD SPECIMENOrdering Facility: [facility] Address: [address] [place] [address] Performed By: #### 5 7021-8 ####[facility] DEVYNALYSSIA [id number] [place] [address] [place] Neutrophils/100 WBC (Bld) 54.8 % Normal [facility] Comment on above: Order Comment: Speci men Type: BLOOD SPECIMENOrdering Facility: [facility] Address: [address] [place] [address] Performed By: #### 5 7021-8 ####[facility] HOSPITALIESHAASHLEY REGIONAL [facility] [id number] [place] [address] [place] Nucleated RBC (Bld) [#/Vol] 10*3/uL Normal <0.01 [facility] Comment on above: Order Comment: Speci men Type: BLOOD SPECIMENOrdering Facility: [facility] Address: [address] [place] [address] Performed By: #### 5 7021-8 ####[facility] RES[facility]ARCH INSTITUTENely [id number] [place] [address] [place] Nucleated RBC/100 WBC (Bld) [Ratio] 0.0 /100 WBC Normal [facility] Comment on above: Order Comment: Speci men Type: BLOOD SPECIMENOrdering Facility: [facility] Address: [address] [place] [address] Performed By: #### 5 7021-8 ####[facility] HOSPITALNCLIA [id number] [place] [address] [place] Platelet mean volume (Bld) [Entitic vol] 9.3 fL Normal 9.0-12.7 [facility] Comment on above: Order Comment: Speci men Type: BLOOD SPECIMENOrdering Facility: [facility] Address: [address] [place] [address] Performed By: #### 5 7021-8 ####[facility] HOSPITALNCLIA [id number] [place] [address] [place] Platelets (Bld) [#/Vol] 382 10*3/uL Normal 150-400 [facility] Comment on above: Order Comment: Speci men Type: BLOOD SPECIMENOrdering Facility: [facility] Address: [address] [place] [address] Performed By: #### 5 7021-8 ####[facility] HOSPITALNCLIA [id number] [place] [address] [place] RBC (Bld) [#/Vol] 4.10 10*6/uL Normal 3.90-5.20 [facility] Comment on above: Order Comment: Speci men Type: BLOOD SPECIMENOrdering Facility: [facility] Address: [address] [place] [address] Performed By: #### 5 7021-8 ####[facility] INSTITUTEA [id number] [place] [address] [place] WBC (Bld) [#/Vol] 6.33 10*3/uL Normal 3.70-11.00 [facility] Comment on above: Order Comment: Speci men Type: BLOOD SPECIMENOrdering Facility: [facility] Address: [address] [place] [address] Performed By: #### 5 7021-8 ####[facility] HOSPITALNCLIA [id number] [place] [address] [place] Cancer Ag125 SerPl-aCncon Cancer Ag 125 Qn 215 [arb'U]/mL High <39 [facility] Comment on above: Order Comment: Speci men Type: BLOOD SPECIMENOrdering Facility: External Submitter Address: , , Result Comment: [place] 1 25 test methodology used is the Electrochemiluminescence Immunoassay by [employer]. Results obtained with different methods or kits cannot be used interchangeably.The reference interval is based on the 95th percentile of 240 apparently healthy premenopausal and postmenopausal women. At a cutoff value of 65 U/mL, the test sensitivity to distinguish ovarian carcinoma (FIGO stage I to IV) versus benign gynecological disease is 79%, with a specificity of 82%.Reference: Cancer Antigen 125 (CA 125 II) [package insert V 1.0 [place]]. [employer], [place], [place] (July 2015) Performed By: #### 1 0334-1 ####[facility] LABCLIA [id number] [address]#### [address]99[address]-7 ####[facility] LABIA [id number] [address] [id number] [place] [address] [place] [facility] Comprehensive metabolic 2000 panelon 11-07-2023 Albumin [Mass/Vol] 4.1 g/dL Normal 3.9-4.9 [facility] Comment on above: Order Comment: Speci men Type: BLOOD SPECIMENOrdering Facility: [facility] Address: [address] [place] [address] Performed By: #### 2 4323-8, 63989-2 ####[facility] [id number] [address] [place] ALP [Catalytic activity/Vol] 65 U/L Normal 34-123 [facility] Comment on above: Order Comment: Speci men Type: BLOOD SPECIMENOrdering Facility: [facility] Address: [address] [place] [address] Performed By: #### 2 4323-8, 65250-4 ####[facility] [id number] [address] STATES [facility] ALT [Catalytic activity/Vol] 30 U/L Normal 7-38 [facility] Comment on above: Order Comment: Speci men Type: BLOOD SPECIMENOrdering Facility: [facility] Address: [facility] [place] [address] Performed By: #### 2 4323-8, ####[facility] JOSEPHINELIA [id number] [place] [address] [place] Anion gap [Moles/Vol] 9 mmol/L Normal 9-18 [facility] Comment on above: Order Comment: Speci men Type: BLOOD SPECIMENOrdering Facility: [facility] Address: [address] [place] [address] Performed By: #### 2 4323-8, ####[facility] HOSPITALIESHALIA [id number] [place] [address] [place] AST [Catalytic activity/Vol] 28 U/L Normal 13-35 [facility] Comment on above: Order Comment: Speci men Type: BLOOD SPECIMENOrdering Facility: [facility] Address: [address] [place] [address] Performed By: #### 2 4323-8, ####[facility] DEVYNBEARDENIESHALIA [id number] [place] [address] [place] Bilirubin [Mass/Vol] 0.3 mg/dL Normal 0.2-1.3 [facility] Comment on above: Order Comment: Speci men Type: BLOOD SPECIMENOrdering Facility: [facility] Address: [facility] [place] [address] Performed By: #### 2 4323-8, ####[facility] HOSPITALIESHALIA [id number] [place] [address] [place] Calcium [Mass/Vol] 9.8 mg/dL Normal 8.5-10.2 [facility] Comment on above: Order Comment: Speci men Type: BLOOD SPECIMENOrdering Facility: [facility] Address: [address] [place] [address] Performed By: #### 2 43238, ####[facility] MILLWNCLIA [id number] [place] [address] [place] Chloride [Moles/Vol] 103 mmol/L Normal 97-105 [facility] Comment on above: Order Comment: Speci men Type: BLOOD SPECIMENOrdering Facility: [facility] Address: [address] [place] [address] Performed By: #### 2 4323-8, ####[facility] HOSPITALNCLIA [id number] [place] [address] [place] CO2 [Moles/Vol] 26 mmol/L Normal 22-30 [facility] Comment on above: Order Comment: Speci men Type: BLOOD SPECIMENOrdering Facility: [facility] Address: [address] [place] [address] Performed By: #### 2 4323-8, ####[facility] HOSPITALNCLIA [id number] [place] [address] [place] Creatinine [Mass/Vol] 0.88 mg/dL Normal 0.58-0.96 [facility] Comment on above: Order Comment: Speci men Type: BLOOD SPECIMENOrdering Facility: [facility] Address: [address] [place] [address] Performed By: #### 2 4323-8, ####[facility] HOSPITALLIA [id number] [place] [address] [place] Creatinine and Glomerular filtration rate.predicted panel (S/P/Bld) 76 mL/min/1.73m??? Normal >=60 [facility] Comment on above: Order Comment: Speci men Type: BLOOD SPECIMENOrdering Facility: [facility] Address: [address] [place] [address] Result Comment: Mariana mated Glomerular Filtration Rate (eGFR) is calculated using the 2020 CKD-EPI creatinine equation. This equation utilizes serum creatinine, sex, and age as parameters. The creatinine assay has traceable calibration to isotope dilution-mass spectrometry. Refer to KDIGO guidelines for clinical interpretation. In patients with unstable renal function, e.g. those with acute kidney injury, the eGFR may not accurately reflect actual GFR. Performed By: #### 2 4323-8, ####[facility] DEVYNTOWNCLIA [id number] [place] [address] [place] Glucose [Mass/Vol] 105 mg/dL High 74-99 [facility] Comment on above: Order Comment: Tessie cox Type: BLOOD SPECIMENOrdering Facility: [facility] Address: [address] [place] [address] Result Comment: The [place] Diabetes Association (ADA) provides guidance for cutoff values for fasting glucose and random glucose. The ADA defines fasting as no caloric intake for at least 8 hours. Fasting plasma glucose results between 100 to 125 mg/dL indicate increased risk for diabetes (prediabetes).Fasting plasma glucose results greater than or equal to 126 mg/dL meet the criteria for diagnosis of diabetes. In the absence of unequivocal hyperglycemia, results should be confirmed by repeat testing. In a patient with classic symptoms of hyperglycemia or hyperglycemic crisis, random plasma glucose results greater than or equal to 200 mg/dL meet the criteria for diagnosis of diabetes.Reference: Standards of Medical Care in Diabetes 2016, [place] Diabetes Association. Diabetes Care. 2016.39(Suppl 1). Performed By: #### 2 432-, ####[facility] CENTERWNCLIA [id number] [place] [address] [place] Potassium [Moles/Vol] 4.2 mmol/L Normal 3.7-5.1 [facility] Comment on above: Order Comment: Tessie cox Type: BLOOD SPECIMENOrdering Facility: [facility] Address: [address] [place] [address] Performed By: #### 2 4323-8, ####[facility] CENTERWNCLIA [id number] [place] [address] [place] Protein [Mass/Vol] 7.2 g/dL Normal 6.3-8.0 [facility] Comment on above: Order Comment: Speci men Type: BLOOD SPECIMENOrdering Facility: [facility] Address: [address] [place] [address] Performed By: #### 2 4323-8, 41238-1 ####[facility] HOSPITALNCLIA [id number] [place] [address] [place] Sodium [Moles/Vol] 138 mmol/L Normal 136-144 [facility] Comment on above: Order Comment: Speci men Type: BLOOD SPECIMENOrdering Facility: [facility] Address: [address] [place] [address] Performed By: #### 2 4323-8, 52388-4 ####[facility] [id number] [address] [place] Urea nitrogen [Mass/Vol] 19 mg/dL Normal 7-21 [facility] Comment on above: Order Comment: Speci men Type: BLOOD SPECIMENOrdering Facility: [facility] Address: [address] [place] [address] Performed By: #### 2 4323-8, 81491-3 ####[facility] HOSPITALNCLIA [id number] [place] [address] [place] Lipid 1996 panelon 4 Cholesterol [Mass/Vol] 222 mg/dL High <200 [facility] Comment on above: Order Comment: Speci men Type: BLOOD SPECIMENOrdering Facility: External Submitter Address: , , Result Comment: <200 mg/dL, Desirable 200-239 mg/dL, Borderline high>239 mg/dL, High Performed By: #### 1 0334-1 ####[facility] LABCLIA [id number] [place] [address] [place]#### 74818-9 ####[facility] LABCLIA [id number] [id number] [place] [address] [place] Cholesterol in HDL [Mass/Vol] 54 mg/dL Normal >39 [facility] Comment on above: Order Comment: Speci men Type: BLOOD SPECIMENOrdering Facility: External Submitter Address: , , Result Comment: 40-5 9 mg/dL, Acceptable>59 mg/dL, High: Negative risk factor for coronary heart disease<40 mg/dL, Low: Positive risk factor for coronary heart disease Performed By: #### 1 0334-1 ####[facility] LABCLIA [id number] [place] [address] [place]#### 63364-7 ####[facility] LABCLIA [id number] [address] [id number] [place] [address] [place] Cholesterol in LDL [Mass/Vol] 145 mg/dL High <100 [facility] Comment on above: Order Comment: Speci men Type: BLOOD SPECIMENOrdering Facility: External Submitter Address: , , Result Comment: <100 mg/dL, Optimal 100-129 mg/dL, Near optimal/above optimal 130-159 mg/dL, Borderline high 160-189 mg/dL, High>189 mg/dL, Very highSecondary prevention optimal LDL Cholesterol levels are recommended to be < 70 mg/dL Performed By: #### 1 0334-1 ####[facility] LABCLIA [id number] [place] [address] [place]#### 84544-2 ####[facility] LABCLIA [id number] [address] [id number] [place] [address] [place] Cholesterol in LDL/Cholesterol in HDL [Mass ratio] 2.69 {ratio} High <2.54 [facility] Comment on above: Order Comment: Speci men Type: BLOOD SPECIMENOrdering Facility: External Submitter Address: , , Result Comment: Louise christensen:1. National Cholesterol Education Program ATP III Guideline At-A-Glance Quick Desk Reference: National Heart, Lung, and Blood [place]. National Institutes of Health. 2001: NIH Publication No. 01-3305.2. An International Atherosclerosis Society position paper: global recommendations for the management of dyslipidemia: executive summary, Atherosclerosis. 2014: 232(2):410-413. Performed By: #### 1 0334-1 ####[facility] LABCLIA [id number] [place] [address] [place]#### 45575-6 ####[facility] LABCLIA [id number] [address] [id number] [address] [place] Cholesterol in VLDL [Mass/Vol] 23 mg/dL Normal <30 [facility] Comment on above: Order Comment: Speci men Type: BLOOD SPECIMENOrdering Facility: External Submitter Address: , , Performed By: #### 1 0334-1 ####[facility] LABCLIA [id number] [place] [address] [place]#### 03591-3 ####[facility] LABCLIA [id number] [address] [id number] [place] [address] [place] Cholesterol non HDL [Mass/Vol] 168 mg/dL High <130 [facility] Comment on above: Order Comment: Speci men Type: BLOOD SPECIMENOrdering Facility: External Submitter Address: , , Result Comment: <130 mg/dL, Optimal 130-159 mg/dL, Near optimal/above optimal 160-189 mg/dL, Borderline high 190-219 mg/dL, High>219 mg/dL, Very highSecondary prevention optimal non HDL Cholesterol levels are recommended to be <100 mg/dL Performed By: #### 1 0334-1 ####[facility] LABCLIA [id number] [address]#### 86133-4 ####[facility] LABCLIA [id number] [place] [id number] [place] [address] Cholesterol.total/Cho lesterol in HDL [Mass ratio] 4.11 {ratio} Normal <5.10 [facility] Comment on above: Order Comment: Speci men Type: BLOOD SPECIMENOrdering Facility: External Submitter Address: , , Performed By: #### 1 0334-1 ####[facility] LABCLIA [id number] [address]#### 79505-2 ####[facility] LABCLIA [id number] [address] [id number] [address] FASTING TIME 12 hrs Normal [facility] Comment on above: Order Comment: Speci men Type: BLOOD SPECIMENOrdering Facility: External Submitter Address: , , Performed By: #### 1 0334-1 ####[facility] LABCLIA [id number] [address] [place]#### 64799-1 ####[facility] LABCLIA [id number] [address] [id number] [place] [address] [place] Triglyceride [Mass/Vol] 114 mg/dL Normal <150 [facility] Comment on above: Order Comment: Speci men Type: BLOOD SPECIMENOrdering Facility: External Submitter Address: , , Result Comment: <150 mg/dL, Normal 150-199 mg/dL, Borderline high 200-499 mg/dL, High>499 mg/dL, Very high Performed By: #### 1 0334-1 ####[facility] LABCLIA [id number] [place] [address] [place]#### 67277-8 ####[facility] LABCLIA [id number] [address] [id number] [place] [address] [place] MRI BRAIN WO/W IVCONon 11-07 MRI BRAIN WO/W IVCON Normal [facility] Magnesium SerPl-mCncon 11-07 Magnesium [Mass/Vol] 1.8 mg/dL Normal 1.7-2.3 [facility] Comment on above: Order Comment: Speci men Type: BLOOD SPECIMENOrdering Facility: [facility] Address: [address] [place] [address] Performed By: #### 2 4323-8, 01947-0 ####[facility] HOSPITALLIA [id number] [place] [address] [place] CNPNon 11-03-2023 CNPN Normal [facility] CNPNon 10-20-2023 CNPN Normal [facility] CBC W Auto Differential pane l (Bld)on 10-19-2023 Basophils (Bld) [#/Vol] 0.04 10*3/uL Normal <0.11 [facility] Comment on above: Order Comment: Speci men Type: BLOOD SPECIMENOrdering Facility: [facility] Address: [address] [place] [address] Performed By: #### 5 7021-8 ####[facility] TIMO MILLTOWNCLIA [id number] [place] [address] [place] Basophils/100 WBC (Bld) 0.3 % Normal [facility] Comment on above: Order Comment: Speci men Type: BLOOD SPECIMENOrdering Facility: [facility] Address: [address] [place] [address] Performed By: #### 5 7021-8 ####[facility] MILLWNCLIA [id number] [place] [address] [place] Differential cell count method Nom (Bld) Auto Normal [facility] Comment on above: Order Comment: Speci men Type: BLOOD SPECIMENOrdering Facility: [facility] Address: [address] [place] [address] Performed By: #### 5 7021-8 ####[facility] MILLWNCLIA [id number] [place] [address] [place] Eosinophils (Bld) [#/Vol] 10*3/uL Normal <0.46 [facility] Comment on above: Order Comment: Speci men Type: BLOOD SPECIMENOrdering Facility: [facility] Address: [address] [place] [address] Performed By: #### 5 7021-8 ####[facility] MILLTOWNCLIA [id number] [place] [address] [place] Eosinophils/100 WBC (Bld) 0.0 % Normal [facility] Comment on above: Order Comment: Speci men Type: BLOOD SPECIMENOrdering Facility: [facility] Address: [address] [place] [address] Performed By: #### 5 7021-8 ####[facility] MILLWNCLIA [id number] [place] [address] [place] Erythrocyte distribution width (RBC) [Ratio] 14.4 % Normal 11.5-15.0 [facility] Comment on above: Order Comment: Speci men Type: BLOOD SPECIMENOrdering Facility: [facility] Address: [address] [place] [address] Performed By: #### 5 7021-8 ####[facility] [id number] [place] [address] [place] Hematocrit (Bld) [Volume fraction] 32.7 % Low 36.0-46.0 [facility] Comment on above: Order Comment: Speci men Type: BLOOD SPECIMENOrdering Facility: [facility] Address: [address] [place] [address] Performed By: #### 5 7021-8 ####[facility] [id number] [place] [address] [place] Hemoglobin (Bld) [Mass/Vol] 10.7 g/dL Low 11.5-15.5 [facility] Comment on above: Order Comment: Speci men Type: BLOOD SPECIMENOrdering Facility: [facility] Address: [address] [place] [address] Performed By: #### 5 7021-8 ####[facility] HOSPITALURI [id number] [place] [address] [place] Immature granulocytes (Bld) [#/Vol] 0.15 10*3/uL High <0.10 [facility] Comment on above: Order Comment: Speci men Type: BLOOD SPECIMENOrdering Facility: [facility] Address: [address] [place] [address] Performed By: #### 5 7021-8 ####[facility] HOSPITALLI [id number] [place] [address] [place] Immature granulocytes/100 WBC (Bld) 1.2 % Normal [facility] Comment on above: Order Comment: Speci men Type: BLOOD SPECIMENOrdering Facility: [facility] Address: [address] [place] [address] Performed By: #### 5 7021-8 ####[facility] HOSPITALNCASH[facility] [id number] [place] [address] [place] Lymphocytes (Bld) [#/Vol] 1.71 10*3/uL Normal 1.00-4.00 [facility] Comment on above: Order Comment: Speci men Type: BLOOD SPECIMENOrdering Facility: [facility] Address: [address] [place] [address] Performed By: #### 5 7021-8 ####[facility] [id number] [place] [address] [place] Lymphocytes/100 WBC (Bld) 14.2 % Normal [facility] Comment on above: Order Comment: Speci men Type: BLOOD SPECIMENOrdering Facility: [facility] Address: [address] [place] [address] Performed By: #### 5 7021-8 ####[facility] [id number] [place] [address] [place] MCH (RBC) [Entitic mass] 29.3 pg Normal 26.0-34.0 [facility] Comment on above: Order Comment: Speci men Type: BLOOD SPECIMENOrdering Facility: [facility] Address: [address] [place] [address] Performed By: #### 5 7021-8 ####[facility] [id number] [place] [address] [place] MCHC (RBC) [Mass/Vol] 32.7 g/dL Normal 30.5-36.0 [facility] Comment on above: Order Comment: Speci men Type: BLOOD SPECIMENOrdering Facility: [facility] Address: [address] [place] [address] Performed By: #### 5 7021-8 ####[facility] COMM[facility] HOSPITALNCA [id number] [place] [address] [place] MCV (RBC) [Entitic vol] 89.6 fL Normal 80.0-100.0 [facility] Comment on above: Order Comment: Speci men Type: BLOOD SPECIMENOrdering Facility: [facility] Address: [address] [place] [address] Performed By: #### 5 7021-8 ####[facility] HOSPITALNCASH[facility] [id number] [place] [address] [place] Monocytes (Bld) [#/Vol] 0.94 10*3/uL High <0.87 [facility] Comment on above: Order Comment: Speci men Type: BLOOD SPECIMENOrdering Facility: [facility] Address: [address] [place] [address] Performed By: #### 5 7021-8 ####[facility] [id number] [place] [address] [place] Monocytes/100 WBC (Bld) 7.8 % Normal [facility] Comment on above: Order Comment: Speci men Type: BLOOD SPECIMENOrdering Facility: [facility] Address: [address] [place] [address] Performed By: #### 5 7021-8 ####[facility] [id number] [place] [address] [place] Neutrophils (Bld) [#/Vol] 9.21 10*3/uL High 1.45-7.50 [facility] Comment on above: Order Comment: Speci men Type: BLOOD SPECIMENOrdering Facility: [facility] Address: [address] [place] [address] Performed By: #### 5 7021-8 ####[facility] [id number] [place] [address] [place] Neutrophils/100 WBC (Bld) 76.5 % Normal [facility] Comment on above: Order Comment: Speci men Type: BLOOD SPECIMENOrdering Facility: [facility] Address: [address] [place] [address] Performed By: #### 5 7021-8 ####[facility] HOSPITALKIANNely [id number] [place] [address] [place] Nucleated RBC (Bld) [#/Vol] 10*3/uL Normal <0.01 [facility] Comment on above: Order Comment: Speci men Type: BLOOD SPECIMENOrdering Facility: [facility] Address: [address] [place] [address] Performed By: #### 5 7021-8 ####[facility] HOSPITALNCURI [id number] [place] [address] [place] Nucleated RBC/100 WBC (Bld) [Ratio] 0.0 /100 WBC Normal [facility] Comment on above: Order Comment: Speci men Type: BLOOD SPECIMENOrdering Facility: [facility] Address: [address] [place] [address] Performed By: #### 5 7021-8 ####[facility] HOSPITALNCLIA [id number] [place] [address] [place] Platelet mean volume (Bld) [Entitic vol] 9.2 fL Normal 9.0-12.7 [facility] Comment on above: Order Comment: Speci men Type: BLOOD SPECIMENOrdering Facility: [facility] Address: [address] [place] [address] Performed By: #### 5 7021-8 ####[facility] COMM[facility] HOSPITALNCLI [id number] [place] [address] [place] Platelets (Bld) [#/Vol] 314 10*3/uL Normal 150-400 [facility] Comment on above: Order Comment: Speci men Type: BLOOD SPECIMENOrdering Facility: [facility] Address: [address] [place] [address] Performed By: #### 5 7021-8 ####[facility] HOSPITALNCLIA [id number] [place] [address] [place] RBC (Bld) [#/Vol] 3.65 10*6/uL Low 3.90-5.20 [facility] Comment on above: Order Comment: Speci men Type: BLOOD SPECIMENOrdering Facility: [facility] Address: [address] [place] [address] Performed By: #### 5 7021-8 ####[facility] HOSPITALNCLIA [id number] [place] [address] [place] WBC (Bld) [#/Vol] 12.05 10*3/uL High 3.70-11.00 [facility] Comment on above: Order Comment: Speci men Type: BLOOD SPECIMENOrdering Facility: [facility] Address: [address] [place] [address] Performed By: #### 5 7021-8 ####[facility] HOSPITALNCLIA [id number] [place] [address] [place] Cancer Ag125 SerPl-aCncon Cancer Ag 125 Qn 198 [arb'U]/mL High <39 [facility] Comment on above: Order Comment: Speci men Type: BLOOD SPECIMENOrdering Facility: [facility] Address: [address] [place] [address] Result Comment: CA 1 25 test methodology used is the Electrochemiluminescence Immunoassay by [employer]. Results obtained with different methods or kits cannot be used interchangeably.The reference interval is based on the 95th percentile of 240 apparently healthy premenopausal and postmenopausal women. At a cutoff value of 65 U/mL, the test sensitivity to distinguish ovarian carcinoma (FIGO stage I to IV) versus benign gynecological disease is 79%, with a specificity of 82%.Reference: Cancer Antigen 125 (CA 125 II) [package insert V 1.0 [place]]. [employer], [place], [place] (July 2015) Performed By: #### 1 0334-1 ####[facility] LABCLIA [id number] [facility]ITALK [id number] [id number] [place] Comprehensive metabolic 2000 panelon 10-19-2023 Albumin [Mass/Vol] 3.9 g/dL Normal 3.9-4.9 [facility] Comment on above: Order Comment: Speci men Type: BLOOD SPECIMENOrdering Facility: [facility] Address: [address] [place] [address] Performed By: #### 1 9123-9, 82570-4 ####[facility] COMM[facility] HOSPITALKEV [id number] [place] [address] [place] ALP [Catalytic activity/Vol] 65 U/L Normal 34-123 [facility] Comment on above: Order Comment: Speci men Type: BLOOD SPECIMENOrdering Facility: [facility] Address: [address] [place] [address] Performed By: #### 1 9123-9, 43260-2 ####[facility] [id number] [place] [address] [place] ALT [Catalytic activity/Vol] 14 U/L Normal 7-38 [facility] Comment on above: Order Comment: Speci men Type: BLOOD SPECIMENOrdering Facility: [facility] Address: [address] [place] [address] Performed By: #### 1 9123-9, 02871-0 ####[facility] HOSPITALNCLIA [id number] [place] [address] [place] Anion gap [Moles/Vol] 7 mmol/L Low 9-18 [facility] Comment on above: Order Comment: Speci men Type: BLOOD SPECIMENOrdering Facility: [facility] Address: [address] [place], [place] [address] Performed By: #### 1 9123-9, 40984-9 ####[facility] MILLWNCLIA [id number] [place] [address] [place] AST [Catalytic activity/Vol] 12 U/L Low 13-35 [facility] Comment on above: Order Comment: Speci men Type: BLOOD SPECIMENOrdering Facility: [facility] Address: [address] [place] [address] Performed By: #### 1 9123-9, ####[facility] HOSPITALLIA [id number] [place] [address] [place] Bilirubin [Mass/Vol] mg/dL Low 0.2-1.3 [facility] Comment on above: Order Comment: Speci men Type: BLOOD SPECIMENOrdering Facility: [facility] Address: [address] [place] [address] Performed By: #### 1 9123-9, ####[facility] INSTITUTEA [id number] [place] [address] [place] Calcium [Mass/Vol] 9.1 mg/dL Normal 8.5-10.2 [facility] Comment on above: Order Comment: Speci men Type: BLOOD SPECIMENOrdering Facility: [facility] Address: [address] [place] [address] Performed By: #### 1 9123-9, ####[facility] HOSPITALLIA [id number] [place] [address] [place] Chloride [Moles/Vol] 106 mmol/L High 97-105 [facility] Comment on above: Order Comment: Speci men Type: BLOOD SPECIMENOrdering Facility: [facility] Address: [address] [place] [address] Performed By: #### 1 9123-9, ####[facility] HOSPITALLIA [id number] [place] [address] [place] CO2 [Moles/Vol] 28 mmol/L Normal 22-30 [facility] Comment on above: Order Comment: Tessie cox Type: BLOOD SPECIMENOrdering Facility: [facility] Address: [address] [place] [address] Performed By: #### 1 9123-9, 22324-8 ####[facility] HOSPITALURI [id number] [place] [address] [place] Creatinine [Mass/Vol] 0.78 mg/dL Normal 0.58-0.96 [facility] Comment on above: Order Comment: Tessie cox Type: BLOOD SPECIMENOrdering Facility: [facility] Address: [address] [place] [address] Performed By: #### 1 9123-9, 86183-8 ####[facility] COMM[facility] HOSPITALNCNely [id number] [place] [address] [place] Creatinine and Glomerular filtration rate.predicted panel (S/P/Bld) 88 mL/min/1.73m??? Normal >=60 [facility] Comment on above: Order Comment: Tessie cox Type: BLOOD SPECIMENOrdering Facility: [facility] Address: [address] [place] [address] Result Comment: Mariana mated Glomerular Filtration Rate (eGFR) is calculated using the 2020 CKD-EPI creatinine equation. This equation utilizes serum creatinine, sex, and age as parameters. The creatinine assay has traceable calibration to isotope dilution-mass spectrometry. Refer to KDIGO guidelines for clinical interpretation. In patients with unstable renal function, e.g. those with acute kidney injury, the eGFR may not accurately reflect actual GFR. Performed By: #### 1 9123-9, 98466-4 ####[facility] COMMUNITY HOSPITALNCLIA [id number] [place] [address] [place] Glucose [Mass/Vol] 136 mg/dL High 74-99 [facility] Comment on above: Order Comment: Speci men Type: BLOOD SPECIMENOrdering Facility: [facility] Address: [place] [address] Result Comment: The [place] Diabetes Association (ADA) provides guidance for cutoff values for fasting glucose and random glucose. The ADA defines fasting as no caloric intake for at least 8 hours. Fasting plasma glucose results between 100 to 125 mg/dL indicate increased risk for diabetes (prediabetes).Fasting plasma glucose results greater than or equal to 126 mg/dL meet the criteria for diagnosis of diabetes. In the absence of unequivocal hyperglycemia, results should be confirmed by repeat testing. In a patient with classic symptoms of hyperglycemia or hyperglycemic crisis, random plasma glucose results greater than or equal to 200 mg/dL meet the criteria for diagnosis of diabetes.Reference: Standards of Medical Care in Diabetes 2016, [place] Diabetes Association. Diabetes Care. 2016.39(Suppl 1). Performed By: #### 1 9123-9, 55571-2 ####[facility] [id number] [place] [address] [place] Potassium [Moles/Vol] 4.3 mmol/L Normal 3.7-5.1 [facility] Comment on above: Order Comment: Tessie cox Type: BLOOD SPECIMENOrdering Facility: [facility] Address: [place] [address] Performed By: #### 1 9123-9, 83894-5 ####[facility] [id number] [place] [address] [place] Protein [Mass/Vol] 7.2 g/dL Normal 6.3-8.0 [facility] Comment on above: Order Comment: Tessie cox Type: BLOOD SPECIMENOrdering Facility: [facility] Address: [address] [place] [id number] Performed By: #### 1 9123-9, ####[facility]UN[facility] HOSPITALNCLIA [id number] [place] [address] [place] Sodium [Moles/Vol] 141 mmol/L Normal 136-144 [facility] Comment on above: Order Comment: Speci men Type: BLOOD SPECIMENOrdering Facility: [facility] Address: [address] [place] [address] Performed By: #### 1 9123-9, 14395-4 ####[facility] [id number] [place] [address] [place] Urea nitrogen [Mass/Vol] 22 mg/dL High 05-05 [facility] Comment on above: Order Comment: Speci men Type: BLOOD SPECIMENOrdering Facility: [facility] Address: [address] [place] [address] Performed By: #### 1 9123-9, 55859-9 ####[facility] [id number] [place] [address] [place] Magnesium SerPl-mCncon 10-19 Magnesium [Mass/Vol] 2.1 mg/dL Normal 1.7-2.3 [facility] Comment on above: Order Comment: Speci men Type: BLOOD SPECIMENOrdering Facility: [facility] Address: [address] [place] [address] Performed By: #### 1 9123-9, 15987-3 ####[facility] [id number] [place] [address] [place] Bacteria Ur Culton 3 Bacteria identified Cx Nom (U) Abnormal [facility] Comment on above: Performed By: #### 6 30-4 ####[facility] LABCLIA [id number] [place] [address] [place] CNOVon 10-11-2023 CNOV Normal [facility] CBC W Auto Differential pane l (Bld)on 10-05-2023 Basophils (Bld) [#/Vol] 0.06 10*3/uL Normal <0.11 [facility] Comment on above: Order Comment: Speci men Type: BLOOD SPECIMENOrdering Facility: [facility] Address: [address] [place] [address] Performed By: #### 5 7021-8 ####[facility] MILLWNCLIA [id number] [place] [address] [place] Basophils/100 WBC (Bld) 1.3 % Normal [facility] Comment on above: Order Comment: Speci men Type: BLOOD SPECIMENOrdering Facility: [facility] Address: [address] [place] [address] Performed By: #### 5 7021-8 ####[facility] MILLWNCLIA [id number] [place] [address] [place] Differential cell count method Nom (Bld) Auto Normal [facility] Comment on above: Order Comment: Speci men Type: BLOOD SPECIMENOrdering Facility: [facility] Address: [address] [place] [address] Performed By: #### 5 7021-8 ####[facility] HOSPITALLIA [id number] [place] [address] [place] Eosinophils (Bld) [#/Vol] 0.12 10*3/uL Normal <0.46 [facility] Comment on above: Order Comment: Speci men Type: BLOOD SPECIMENOrdering Facility: [facility] Address: [address] [place] [address] Performed By: #### 5 7021-8 ####[facility] MILLWNCLIA [id number] [place] [address] [place] Eosinophils/100 WBC (Bld) 2.5 % Normal [facility] Comment on above: Order Comment: Speci men Type: BLOOD SPECIMENOrdering Facility: [facility] Address: [address] [place] [address] Performed By: #### 5 7021-8 ####[facility] CENTERWNCLIA [id number] [place] [address] [place] Erythrocyte distribution width (RBC) [Ratio] 14.2 % Normal 11.5-15.0 [facility] Comment on above: Order Comment: Speci men Type: BLOOD SPECIMENOrdering Facility: [facility] Address: [address] [place] [address] Performed By: #### 5 7021-8 ####[facility] [id number] [place] [address] [place] Hematocrit (Bld) [Volume fraction] 35.3 % Low 36.0-46.0 [facility] Comment on above: Order Comment: Speci men Type: BLOOD SPECIMENOrdering Facility: [facility] Address: [address] [place] [address] Performed By: #### 5 7021-8 ####[facility] [id number] [place] [address] [place] Hemoglobin (Bld) [Mass/Vol] 11.5 g/dL Normal 11.5-15.5 [facility] Comment on above: Order Comment: Speci men Type: BLOOD SPECIMENOrdering Facility: [facility] Address: [address] [place] [address] Performed By: #### 5 7021-8 ####[facility] [id number] [place] [address] [place] Immature granulocytes (Bld) [#/Vol] 10*3/uL Normal <0.10 [facility] Comment on above: Order Comment: Speci men Type: BLOOD SPECIMENOrdering Facility: [facility] Address: [address] [place] [address] Performed By: #### 5 7021-8 ####[facility] [id number] [place] [address] [place] Immature granulocytes/100 WBC (Bld) 0.2 % Normal [facility] Comment on above: Order Comment: Speci men Type: BLOOD SPECIMENOrdering Facility: [facility] Address: [address] [place] [address] Performed By: #### 5 7021-8 ####[facility] HOSPITALIESHALIA [id number] [place] [address] [place] Lymphocytes (Bld) [#/Vol] 1.51 10*3/uL Normal 1.00-4.00 [facility] Comment on above: Order Comment: Speci men Type: BLOOD SPECIMENOrdering Facility: [facility] Address: [address] [place] [address] Performed By: #### 5 7021-8 ####[facility]STITUTEA [id number] [place] [address] [place] Lymphocytes/100 WBC (Bld) 32.1 % Normal [facility] Comment on above: Order Comment: Speci men Type: BLOOD SPECIMENOrdering Facility: [facility] Address: [address] [place] [address] Performed By: #### 5 7021-8 ####[facility] INSTITUTEA [id number] [place] [address] [place] MCH (RBC) [Entitic mass] 29.6 pg Normal 26.0-34.0 [facility] Comment on above: Order Comment: Speci men Type: BLOOD SPECIMENOrdering Facility: [facility] Address: [address] [place] [address] Performed By: #### 5 7021-8 ####[facility] HOSPITALLIA [id number] [place] [address] [place] MCHC (RBC) [Mass/Vol] 32.6 g/dL Normal 30.5-36.0 [facility] Comment on above: Order Comment: Speci men Type: BLOOD SPECIMENOrdering Facility: [facility] Address: [address] [place] [address] Performed By: #### 5 7021-8 ####[facility] CENTERNALLELYLIA [id number] [place] [address] [place] MCV (RBC) [Entitic vol] 91.0 fL Normal 80.0-100.0 [facility] Comment on above: Order Comment: Speci men Type: BLOOD SPECIMENOrdering Facility: [facility] Address: [address] [place] [address] Performed By: #### 5 7021-8 ####[facility] COMMUNITY HOSPITALKIANA [id number] [place] [address] [place] Monocytes (Bld) [#/Vol] 0.60 10*3/uL Normal <0.87 [facility] Comment on above: Order Comment: Speci men Type: BLOOD SPECIMENOrdering Facility: [facility] Address: [address] [place] [address] Performed By: #### 5 7021-8 ####[facility] INSTITUTEA [id number] [place] [address] [place] Monocytes/100 WBC (Bld) 12.7 % Normal [facility] Comment on above: Order Comment: Speci men Type: BLOOD SPECIMENOrdering Facility: [facility] Address: [address] [place] [address] Performed By: #### 5 7021-8 ####[facility] INSTITUTEA [id number] [place] [address] [place] Neutrophils (Bld) [#/Vol] 2.41 10*3/uL Normal 1.45-7.50 [facility] Comment on above: Order Comment: Speci men Type: BLOOD SPECIMENOrdering Facility: [facility] Address: [address] [place] [address] Performed By: #### 5 7021-8 ####[facility] COMM[facility] HOSPITALNCLIA [id number] [place] [address] [place] Neutrophils/100 WBC (Bld) 51.2 % Normal [facility] Comment on above: Order Comment: Speci men Type: BLOOD SPECIMENOrdering Facility: [facility] Address: [address] [place] [address] Performed By: #### 5 7021-8 ####[facility] [id number] [place] [address] [place] Nucleated RBC (Bld) [#/Vol] 10*3/uL Normal <0.01 [facility] Comment on above: Order Comment: Speci men Type: BLOOD SPECIMENOrdering Facility: [facility] Address: [address] [place] [address] Performed By: #### 5 7021-8 ####[facility] HOSPITALNCASH[facility] [id number] [place] [address] [place] Nucleated RBC/100 WBC (Bld) [Ratio] 0.0 /100 WBC Normal [facility] Comment on above: Order Comment: Speci men Type: BLOOD SPECIMENOrdering Facility: [facility] Address: [address] [place] [address] Performed By: #### 5 7021-8 ####[facility] [id number] [place] [address] [place] Platelet mean volume (Bld) [Entitic vol] 9.3 fL Normal 9.0-12.7 [facility] Comment on above: Order Comment: Speci men Type: BLOOD SPECIMENOrdering Facility: [facility] Address: [address] [place] [address] Performed By: #### 5 7021-8 ####[facility] [id number] [place] [address] [place] Platelets (Bld) [#/Vol] 322 10*3/uL Normal 150-400 [facility] Comment on above: Order Comment: Speci men Type: BLOOD SPECIMENOrdering Facility: [facility] Address: [address] [place] [address] Performed By: #### 5 7021-8 ####[facility] HOSPITALNCLIA [id number] [place] [address] [place] RBC (Bld) [#/Vol] 3.88 10*6/uL Low 3.90-5.20 [facility] Comment on above: Order Comment: Speci men Type: BLOOD SPECIMENOrdering Facility: [facility] Address: [address] [place] [address] Performed By: #### 5 7021-8 ####[facility] HOSPITALNCLIA [id number] [place] [address] [place] WBC (Bld) [#/Vol] 4.71 10*3/uL Normal 3.70-11.00 [facility] Comment on above: Order Comment: Speci men Type: BLOOD SPECIMENOrdering Facility: [facility] Address: [address] [place] [address] Performed By: #### 5 7021-8 ####[facility] HOSPITALNCLIA [id number] [place] [address] [place] CNOVSPon 10-05-2023 CNOVSP Normal [facility] CNPNon 10-05-2023 CNPN Normal [facility] Cancer Ag125 SerPl-aCncon Cancer Ag 125 Qn 197 [arb'U]/mL High <39 [facility] Comment on above: Order Comment: Speci men Type: BLOOD SPECIMENOrdering Facility: [facility] Address: [address] [place] [address] Result Comment: CA 1 25 test methodology used is the Electrochemiluminescence Immunoassay by [employer]. Results obtained with different methods or kits cannot be used interchangeably.The reference interval is based on the 95th percentile of 240 apparently healthy premenopausal and postmenopausal women. At a cutoff value of 65 U/mL, the test sensitivity to distinguish ovarian carcinoma (FIGO stage I to IV) versus benign gynecological disease is 79%, with a specificity of 82%.Reference: Cancer Antigen 125 (CA 125 II) [package insert V 1.0 [place]]. [employer], [place], [place] (July 2015) Performed By: #### 1 0334-1 ####[facility] LABCLIA [id number] MARYEmelia [id number] [address] [place] Comprehensive metabolic 2000 panelon 10-05-2023 Albumin [Mass/Vol] 3.8 g/dL Low 3.9-4.9 [facility] Comment on above: Order Comment: Speci men Type: BLOOD SPECIMENOrdering Facility: [facility] Address: [address] [place] [address] Performed By: #### 1 9123-9, 37480-2 ####[facility] COMM[facility] HOSPITALKEV [id number] [place] [address] [place] ALP [Catalytic activity/Vol] 69 U/L Normal 34-123 [facility] Comment on above: Order Comment: Speci men Type: BLOOD SPECIMENOrdering Facility: [facility] Address: [address] [place] [address] Performed By: #### 1 9123-9, 31596-2 ####[facility] RESEARCH INSTITUTENely [id number] [place] [address] [place] ALT [Catalytic activity/Vol] 11 U/L Normal 7-38 [facility] Comment on above: Order Comment: Speci men Type: BLOOD SPECIMENOrdering Facility: [facility] Address: [address] [place] [address] Performed By: #### 1 9123-9, 44009-7 ####[facility] HOSPITALNCTERESAA [id number] [place] [address] [place] Anion gap [Moles/Vol] 8 mmol/L Low 9-18 [facility] Comment on above: Order Comment: Speci men Type: BLOOD SPECIMENOrdering Facility: [facility] Address: [address] [place] [address] Performed By: #### 1 9123-9, 66971-4 ####[facility] TIM[facility] MILLTOWNCLIA [id number] [place] [address] [place] AST [Catalytic activity/Vol] 16 U/L Normal 13-35 [facility] Comment on above: Order Comment: Speci men Type: BLOOD SPECIMENOrdering Facility: [facility] Address: [address] [place] [address] Performed By: #### 1 9123-9, 68002-9 ####[facility] MILLTOWNCLIA [id number] [place] [address] [place] Bilirubin [Mass/Vol] 0.2 mg/dL Normal 0.2-1.3 [facility] Comment on above: Order Comment: Speci men Type: BLOOD SPECIMENOrdering Facility: [facility] Address: [address] [place] [address] Performed By: #### 1 9123-9, 55428-8 ####[facility] MILLTOWNCLIA [id number] [place] [address] [place] Calcium [Mass/Vol] 9.2 mg/dL Normal 8.5-10.2 [facility] Comment on above: Order Comment: Speci men Type: BLOOD SPECIMENOrdering Facility: [facility] Address: [address] [place] [address] Performed By: #### 1 9123-9, ####[facility] MILLTOWNCLIA [id number] [place] [address] [place] Chloride [Moles/Vol] 105 mmol/L Normal 97-105 [facility] Comment on above: Order Comment: Speci men Type: BLOOD SPECIMENOrdering Facility: [facility] Address: [address] [place] [address] Performed By: #### 1 9123-9, 53276-9 ####[facility] MILLTOWNCLIA [id number] [place] [address] [place] CO2 [Moles/Vol] 27 mmol/L Normal 22-30 [facility] Comment on above: Order Comment: Tessie cox Type: BLOOD SPECIMENOrdering Facility: [facility] Address: [address] [place] [address] Performed By: #### 1 9123-9, ####[facility] [id number] [place] [address] [place] Creatinine [Mass/Vol] 0.87 mg/dL Normal 0.58-0.96 [facility] Comment on above: Order Comment: Tessie men Type: BLOOD SPECIMENOrdering Facility: [facility] Address: [address] [place] [address] Performed By: #### 1 9123-9, ####[facility] HOSPITALNCASH[facility] [id number] [place] [address] [place] Creatinine and Glomerular filtration rate.predicted panel (S/P/Bld) 77 mL/min/1.73m??? Normal >=60 [facility] Comment on above: Order Comment: Tessie cox Type: BLOOD SPECIMENOrdering Facility: [facility] Address: [address] [place] [address] Result Comment: Mariana mated Glomerular Filtration Rate (eGFR) is calculated using the 2020 CKD-EPI creatinine equation. This equation utilizes serum creatinine, sex, and age as parameters. The creatinine assay has traceable calibration to isotope dilution-mass spectrometry. Refer to KDIGO guidelines for clinical interpretation. In patients with unstable renal function, e.g. those with acute kidney injury, the eGFR may not accurately reflect actual GFR. Performed By: #### 1 9123-9, ####[facility] HOSPITALNCLIA [id number] [place] [address] [place] Glucose [Mass/Vol] 164 mg/dL High 74-99 [facility] Comment on above: Order Comment: Speci men Type: BLOOD SPECIMENOrdering Facility: [facility] Address: [place] [address] Result Comment: The [place] Diabetes Association (ADA) provides guidance for cutoff values for fasting glucose and random glucose. The ADA defines fasting as no caloric intake for at least 8 hours. Fasting plasma glucose results between 100 to 125 mg/dL indicate increased risk for diabetes (prediabetes).Fasting plasma glucose results greater than or equal to 126 mg/dL meet the criteria for diagnosis of diabetes. In the absence of unequivocal hyperglycemia, results should be confirmed by repeat testing. In a patient with classic symptoms of hyperglycemia or hyperglycemic crisis, random plasma glucose results greater than or equal to 200 mg/dL meet the criteria for diagnosis of diabetes.Reference: Standards of Medical Care in Diabetes 2016, [place] [employer]. Diabetes Care. 2016.39(Suppl 1). Performed By: #### 1 9123-9, 38129-4 ####[facility] CENTERWIESHALIA [id number] [place] [address] [place] Potassium [Moles/Vol] 4.3 mmol/L Normal 3.7-5.1 [facility] Comment on above: Order Comment: Tessie cox Type: BLOOD SPECIMENOrdering Facility: [facility] Address: [place] [address] Performed By: #### 1 9123-9, ####[facility] CENTERWVALIA [id number] [place] [address] [place] Protein [Mass/Vol] 6.8 g/dL Normal 6.3-8.0 [facility] Comment on above: Order Comment: Tessie cox Type: BLOOD SPECIMENOrdering Facility: [facility] Address: [address] [place] [id number] Performed By: #### 1 9123-9, ####[facility] MILLWNCLIA [id number] [place] [address] [place] Sodium [Moles/Vol] 140 mmol/L Normal 136-144 [facility] Comment on above: Order Comment: Speci men Type: BLOOD SPECIMENOrdering Facility: [facility] Address: [address] [place] [address] Performed By: #### 1 9123-9, 94117-4 ####[facility] HOSPITALLIA [id number] [place] [address] [place] Urea nitrogen [Mass/Vol] 16 mg/dL Normal - [facility] Comment on above: Order Comment: Speci men Type: BLOOD SPECIMENOrdering Facility: [facility] Address: [place] [address] Performed By: #### 1 9123-9, 12145-7 ####[facility] HOSPITALNC[facility] [id number] [place] [address] [place] Magnesium SerPl-mCncon 10-05 Magnesium [Mass/Vol] 1.9 mg/dL Normal 1.7-2.3 [facility] Comment on above: Order Comment: Speci men Type: BLOOD SPECIMENOrdering Facility: [facility] Address: [place] [address] Performed By: #### 1 9123-9, 86670-4 ####[facility] [id number] [place] [address] [place] CNPNon 09-29-2023 CNPN Normal [facility] CT ABD/PEL W IVCONon 023 CT ABD/PEL W IVCON Normal [facility] CT CHEST W IVCONon 3 CT CHEST W IVCON Normal [facility] CBC W Auto Differential pane l (Bld)on 09-05-2023 Basophils (Bld) [#/Vol] 0.05 10*3/uL Normal <0.11 [facility] Comment on above: Order Comment: Speci men Type: BLOOD SPECIMENOrdering Facility: [facility] Address: [place] [address] Performed By: #### 5 7021-8 ####[facility] MILLWNCLIA [id number] [place] [address] [place] Basophils/100 WBC (Bld) 1.2 % Normal [facility] Comment on above: Order Comment: Speci men Type: BLOOD SPECIMENOrdering Facility: [facility] Address: [address] [place] [address] Performed By: #### 5 7021-8 ####[facility] HOSPITALNCLIA [id number] [place] [address] [place] Differential cell count method Nom (Bld) Auto Normal [facility] Comment on above: Order Comment: Speci men Type: BLOOD SPECIMENOrdering Facility: [facility] Address: [address] [place] [address] Performed By: #### 5 7021-8 ####[facility] [id number] [place] [address] [place] Eosinophils (Bld) [#/Vol] 0.07 10*3/uL Normal <0.46 [facility] Comment on above: Order Comment: Speci men Type: BLOOD SPECIMENOrdering Facility: [facility] Address: [address] [place] [address] Performed By: #### 5 7021-8 ####[facility] [id number] [place] [address] [place] Eosinophils/100 WBC (Bld) 1.7 % Normal [facility] Comment on above: Order Comment: Speci men Type: BLOOD SPECIMENOrdering Facility: [facility] Address: [address] [place] [address] Performed By: #### 5 7021-8 ####[facility] HOSPITALNCLIA [id number] [place] [address] [place] Erythrocyte distribution width (RBC) [Ratio] 15.7 % High 11.5-15.0 [facility] Comment on above: Order Comment: Speci men Type: BLOOD SPECIMENOrdering Facility: [facility] Address: [address] [place] [address] Performed By: #### 5 7021-8 ####[facility] [id number] [place] [address] [place] Hematocrit (Bld) [Volume fraction] 38.4 % Normal 36.0-46.0 [facility] Comment on above: Order Comment: Speci men Type: BLOOD SPECIMENOrdering Facility: [facility] Address: [address] [place] [address] Performed By: #### 5 7021-8 ####[facility]PITALNCASH[facility] [id number] [place] [address] [place] Hemoglobin (Bld) [Mass/Vol] 12.4 g/dL Normal 11.5-15.5 [facility] Comment on above: Order Comment: Speci men Type: BLOOD SPECIMENOrdering Facility: [facility] Address: [address] [place] [address] Performed By: #### 5 7021-8 ####[facility] [id number] [place] [address] [place] Immature granulocytes (Bld) [#/Vol] 10*3/uL Normal <0.10 [facility] Comment on above: Order Comment: Speci men Type: BLOOD SPECIMENOrdering Facility: [facility] Address: [address] [place] [address] Performed By: #### 5 7021-8 ####[facility] [id number] [place] [address] [place] Immature granulocytes/100 WBC (Bld) 0.2 % Normal [facility] Comment on above: Order Comment: Speci men Type: BLOOD SPECIMENOrdering Facility: [facility] Address: [address] [place], [place] [address] Performed By: #### 5 7021-8 ####[facility] MILLTOWNCLIA [id number] [place] [address] [place] Lymphocytes (Bld) [#/Vol] 1.58 10*3/uL Normal 1.00-4.00 [facility] Comment on above: Order Comment: Speci men Type: BLOOD SPECIMENOrdering Facility: [facility] Address: [address] [place] [address] Performed By: #### 5 7021-8 ####[facility] CENTERWNCLIA [id number] [place] [address] [place] Lymphocytes/100 WBC (Bld) 38.3 % Normal [facility] Comment on above: Order Comment: Speci men Type: BLOOD SPECIMENOrdering Facility: [facility] Address: [address] [place] [address] Performed By: #### 5 7021-8 ####[facility] HOSPITALLIA [id number] [place] [address] [place] MCH (RBC) [Entitic mass] 29.7 pg Normal 26.0-34.0 [facility] Comment on above: Order Comment: Speci men Type: BLOOD SPECIMENOrdering Facility: [facility] Address: [address] [place] [address] Performed By: #### 5 7021-8 ####[facility] MILLWNCLIA [id number] [place] [address] [place] MCHC (RBC) [Mass/Vol] 32.3 g/dL Normal 30.5-36.0 [facility] Comment on above: Order Comment: Speci men Type: BLOOD SPECIMENOrdering Facility: [facility] Address: [address] [place] [address] Performed By: #### 5 7021-8 ####[facility] MILLBEARDENNCLIA [id number] [place] [address] [place] MCV (RBC) [Entitic vol] 92.1 fL Normal 80.0-100.0 [facility] Comment on above: Order Comment: Speci men Type: BLOOD SPECIMENOrdering Facility: [facility] Address: [address] [place] [address] Performed By: #### 5 7021-8 ####[facility] HOSPITALLIA [id number] [place] [address] [place] Monocytes (Bld) [#/Vol] 0.52 10*3/uL Normal <0.87 [facility] Comment on above: Order Comment: Speci men Type: BLOOD SPECIMENOrdering Facility: [facility] Address: [address] [place] [address] Performed By: #### 5 7021-8 ####[facility] [id number] [place] [address] [place] Monocytes/100 WBC (Bld) 12.6 % Normal [facility] Comment on above: Order Comment: Speci men Type: BLOOD SPECIMENOrdering Facility: [facility] Address: [address] [place] [address] Performed By: #### 5 7021-8 ####[facility] HOSPITALLIA [id number] [place] [address] [place] Neutrophils (Bld) [#/Vol] 1.90 10*3/uL Normal 1.45-7.50 [facility] Comment on above: Order Comment: Speci men Type: BLOOD SPECIMENOrdering Facility: [facility] Address: [address] [place] [address] Performed By: #### 5 7021-8 ####[facility] HOSPITALLIA [id number] [place] [address] [place] Neutrophils/100 WBC (Bld) 46.0 % Normal [facility] Comment on above: Order Comment: Speci men Type: BLOOD SPECIMENOrdering Facility: [facility] Address: [address] [place] [address] Performed By: #### 5 7021-8 ####[facility] DEVYNALYSSIA [id number] [place] [address] [place] Nucleated RBC (Bld) [#/Vol] 10*3/uL Normal <0.01 [facility] Comment on above: Order Comment: Speci men Type: BLOOD SPECIMENOrdering Facility: [facility] Address: [address] [place] [address] Performed By: #### 5 7021-8 ####[facility] HOSPITALIESHAASHLEY REG[facility] [id number] [place] [address] [place] Nucleated RBC/100 WBC (Bld) [Ratio] 0.0 /100 WBC Normal [facility] Comment on above: Order Comment: Speci men Type: BLOOD SPECIMENOrdering Facility: [facility] Address: [address] [place] [address] Performed By: #### 5 7021-8 ####[facility] [id number] [place] [address] [place] Platelet mean volume (Bld) [Entitic vol] 9.4 fL Normal 9.0-12.7 [facility] Comment on above: Order Comment: Speci men Type: BLOOD SPECIMENOrdering Facility: [facility] Address: [address] [place] [address] Performed By: #### 5 7021-8 ####[facility] [id number] [place] [address] [place] Platelets (Bld) [#/Vol] 267 10*3/uL Normal 150-400 [facility] Comment on above: Order Comment: Speci men Type: BLOOD SPECIMENOrdering Facility: [facility] Address: [address] [place] [address] Performed By: #### 5 7021-8 ####[facility] HOSPITALNCLIA [id number] [place] [address] [place] RBC (Bld) [#/Vol] 4.17 10*6/uL Normal 3.90-5.20 [facility] Comment on above: Order Comment: Speci men Type: BLOOD SPECIMENOrdering Facility: [facility] Address: [address] [place] [address] Performed By: #### 5 7021-8 ####[facility] HOSPITALNCLIA [id number] [place] [address] [place] WBC (Bld) [#/Vol] 4.13 10*3/uL Normal 3.70-11.00 [facility] Comment on above: Order Comment: Speci men Type: BLOOD SPECIMENOrdering Facility: [facility] Address: [address] [place] [address] Performed By: #### 5 7021-8 ####[facility]A [id number] [place] [address] [place] CNOVSPon 09-05-2023 CNOVSP Normal [facility] CNPNon 09-05-2023 CNPN Normal [facility] Cancer Ag125 SerPl-aCncon Cancer Ag 125 Qn 173 [arb'U]/mL High <39 [facility] Comment on above: Order Comment: Speci men Type: BLOOD SPECIMENOrdering Facility: [facility] Address: [address] [place] [address] Result Comment: CA 1 25 test methodology used is the Electrochemiluminescence Immunoassay by [employer]. Results obtained with different methods or kits cannot be used interchangeably.The reference interval is based on the 95th percentile of 240 apparently healthy premenopausal and postmenopausal women. At a cutoff value of 65 U/mL, the test sensitivity to distinguish ovarian carcinoma (FIGO stage I to IV) versus benign gynecological disease is 79%, with a specificity of 82%.Reference: Cancer Antigen 125 (CA 125 II) [package insert V 1.0 Citizen [place]]. [employer], [place], [place] (July 2015) Performed By: #### 1 0334-1 ####[facility] LABCLIA [id number] [facility] [id number] [id number] [place] Comprehensive metabolic 2000 panelon 09-05-2023 Albumin [Mass/Vol] 4.3 g/dL Normal 3.9-4.9 [facility] Comment on above: Order Comment: Speci men Type: BLOOD SPECIMENOrdering Facility: [facility] Address: [address] [place] [address] Performed By: #### 1 9123-9, 66240-5 ####[facility] [id number] [place] [address] [place] ALP [Catalytic activity/Vol] 60 U/L Normal 34-123 [facility] Comment on above: Order Comment: Speci men Type: BLOOD SPECIMENOrdering Facility: [facility] Address: [address] [place] [address] Performed By: #### 1 9123-9, 58979-0 ####[facility] [id number] [place] [address] [place] ALT [Catalytic activity/Vol] 11 U/L Normal 7-38 [facility] Comment on above: Order Comment: Speci men Type: BLOOD SPECIMENOrdering Facility: [facility] Address: [address] [place] [address] Performed By: #### 1 9123-9, 63402-7 ####[facility] [id number] [place] [address] [place] Anion gap [Moles/Vol] 8 mmol/L Low 9-18 [facility] Comment on above: Order Comment: Speci men Type: BLOOD SPECIMENOrdering Facility: [facility] Address: [address] [place] [address] Performed By: #### 1 9123-9, 99530-6 ####[facility] MILLTOWNCLIA [id number] [place] [address] [place] AST [Catalytic activity/Vol] 20 U/L Normal 13-35 [facility] Comment on above: Order Comment: Speci men Type: BLOOD SPECIMENOrdering Facility: [facility] Address: [address] [place] [address] Performed By: #### 1 9123-9, 65461-7 ####[facility] MILLTOWNCLIA [id number] [place] [address] [place] Bilirubin [Mass/Vol] 0.3 mg/dL Normal 0.2-1.3 [facility] Comment on above: Order Comment: Speci men Type: BLOOD SPECIMENOrdering Facility: [facility] Address: [address] [place] [address] Performed By: #### 1 9123-9, ####[facility] CENTERWNCLIA [id number] [place] [address] [place] Calcium [Mass/Vol] 9.5 mg/dL Normal 8.5-10.2 [facility] Comment on above: Order Comment: Speci men Type: BLOOD SPECIMENOrdering Facility: [facility] Address: [address] [place] [address] Performed By: #### 1 9123-9, ####[facility] CENTERWIESHALIA [id number] [place] [address] [place] Chloride [Moles/Vol] 104 mmol/L Normal 97-105 [facility] Comment on above: Order Comment: Speci men Type: BLOOD SPECIMENOrdering Facility: [facility] Address: [address] [place] [address] Performed By: #### 1 9123-9, ####[facility] MILLWNCLIA [id number] [place] [address] [place] CO2 [Moles/Vol] 27 mmol/L Normal 22-30 [facility] Comment on above: Order Comment: Tessie cox Type: BLOOD SPECIMENOrdering Facility: [facility] Address: [address] [place] [address] Performed By: #### 1 9123-9, 36923-8 ####[facility] HOSPITALNCLIA [id number] [place] [address] [place] Creatinine [Mass/Vol] 0.87 mg/dL Normal 0.58-0.96 [facility] Comment on above: Order Comment: Cheyennei men Type: BLOOD SPECIMENOrdering Facility: [facility] Address: [address] [place] [address] Performed By: #### 1 9123-9, ####[facility] HOSPITALNCLIA [id number] [place] [address] [place] Creatinine and Glomerular filtration rate.predicted panel (S/P/Bld) 77 mL/min/1.73m??? Normal >=60 [facility] Comment on above: Order Comment: Tessie cox Type: BLOOD SPECIMENOrdering Facility: [facility] Address: [address] [place] [address] Result Comment: Mariana mated Glomerular Filtration Rate (eGFR) is calculated using the 2020 CKD-EPI creatinine equation. This equation utilizes serum creatinine, sex, and age as parameters. The creatinine assay has traceable calibration to isotope dilution-mass spectrometry. Refer to KDIGO guidelines for clinical interpretation. In patients with unstable renal function, e.g. those with acute kidney injury, the eGFR may not accurately reflect actual GFR. Performed By: #### 1 9123-9, ####[facility] HOSPITALNCLIA [id number] [place] [address] [place] Glucose [Mass/Vol] 119 mg/dL High 74-99 [facility] Comment on above: Order Comment: Cheyennei men Type: BLOOD SPECIMENOrdering Facility: [facility] Address: [place] [address] Result Comment: The [place] Diabetes Association (ADA) provides guidance for cutoff values for fasting glucose and random glucose. The ADA defines fasting as no caloric intake for at least 8 hours. Fasting plasma glucose results between 100 to 125 mg/dL indicate increased risk for diabetes (prediabetes).Fasting plasma glucose results greater than or equal to 126 mg/dL meet the criteria for diagnosis of diabetes. In the absence of unequivocal hyperglycemia, results should be confirmed by repeat testing. In a patient with classic symptoms of hyperglycemia or hyperglycemic crisis, random plasma glucose results greater than or equal to 200 mg/dL meet the criteria for diagnosis of diabetes.Reference: Standards of Medical Care in Diabetes 2016, [place] [employer] Association. Diabetes Care. 2016.39(Suppl 1). Performed By: #### 1 9123-9, 93651-1 ####[facility] [id number] [place] [address] [place] Potassium [Moles/Vol] 4.3 mmol/L Normal 3.7-5.1 [facility] Comment on above: Order Comment: Speci men Type: BLOOD SPECIMENOrdering Facility: [facility] Address: [place] [address] Performed By: #### 1 9123-9, 55171-2 ####[facility] [id number] [place] [address] [place] Protein [Mass/Vol] 7.4 g/dL Normal 6.3-8.0 [facility] Comment on above: Order Comment: Speci men Type: BLOOD SPECIMENOrdering Facility: [facility] Address: [address] [place] [address] Performed By: #### 1 9123-9, ####[facility] [id number] [place] [address] [place] Sodium [Moles/Vol] 139 mmol/L Normal 136-144 [facility] Comment on above: Order Comment: Speci men Type: BLOOD SPECIMENOrdering Facility: [facility] Address: [address] [place] [address] Performed By: #### 1 9123-9, 55367-3 ####[facility] TIMO SY [id number] [place] [address] [place] Urea nitrogen [Mass/Vol] 18 mg/dL Normal 7- [facility] Comment on above: Order Comment: Speci men Type: BLOOD SPECIMENOrdering Facility: [facility] Address: [address] [place], [place] [address] Performed By: #### 1 9123-9, 45807-8 ####[facility] DEVYNMadeleineNCLIA [id number] [place] [address] [place] Magnesium SerPl-mCncon 09-05 Magnesium [Mass/Vol] 1.8 mg/dL Normal 1.7-2.3 [facility] Comment on above: Order Comment: Speci men Type: BLOOD SPECIMENOrdering Facility: [facility] Address: [address] [place] [address] Performed By: #### 1 9123-9, 30762-0 ####[facility] DEVYNBEARDENNCLIA [id number] [place] [address] [place] No Panel Informationon 09-05 [facility] XR CHEST 2V FRONTAL/LATon XR CHEST 2V FRONTAL/LAT Normal [facility] UA DIP, URINE (POC)on 2022 BILIRUBIN UA (POCT) Negative Negative [facility] CLARITY UA (POCT) Clear [facility] COLOR UA (POCT) Yellow [facility] GLUCOSE UA (POCT) Negative Negative mg/dL [facility] Hemoglobin Ql (U) Negative Negative [facility] KETONE UA (POCT) Negative Negative mg/dL [facility] LEUKOCYTES UA (POCT) Small Abnormal Negative [facility] NITRITE UA (POCT) Negative Negative [facility] PH UA (POCT) 6.5 4.5 - 8.0 [facility] Protein Ql (U) 30 mg/dL Abnormal Negative mg/dL [facility] SPECIFIC GRAVITY UA (POCT) 1.020 1.005 - 1.030 [facility] UROBILINOGEN UA (POCT) 0.2 E.U./dL Normal E.U./dL [facility] CBC W Auto Differential pane l (Bld)on 08-10-2023 Basophils (Bld) [#/Vol] 0.04 10*3/uL Normal <0.11 [facility] Comment on above: Order Comment: Speci men Type: BLOOD SPECIMENOrdering Facility: [facility] Address: [address] [place] [address] Performed By: #### 5 7021-8 ####[facility]STITUTEA [id number] [place] [address] [place] Basophils/100 WBC (Bld) 0.9 % Normal [facility] Comment on above: Order Comment: Speci men Type: BLOOD SPECIMENOrdering Facility: [facility] Address: [address] [place] [address] Performed By: #### 5 7021-8 ####[facility] [id number] [place] [address] [place] Differential cell count method Nom (Bld) Auto Normal [facility] Comment on above: Order Comment: Speci men Type: BLOOD SPECIMENOrdering Facility: [facility] Address: [address] [place] [address] Performed By: #### 5 7021-8 ####[facility] HOSPITALLIA [id number] [place] [address] [place] Eosinophils (Bld) [#/Vol] 0.07 10*3/uL Normal <0.46 [facility] Comment on above: Order Comment: Speci men Type: BLOOD SPECIMENOrdering Facility: [facility] Address: [address] [place] [address] Performed By: #### 5 7021-8 ####[facility] HEALTHBEARDENKIANA [id number] [place] [address] [place] Eosinophils/100 WBC (Bld) 1.6 % Normal [facility] Comment on above: Order Comment: Speci men Type: BLOOD SPECIMENOrdering Facility: [facility] Address: [address] [place] [address] Performed By: #### 5 7021-8 ####[facility] HOSPITALIESHAASHLEY [facility] [id number] [place] [address] [place] Erythrocyte distribution width (RBC) [Ratio] 17.6 % High 11.5-15.0 [facility] Comment on above: Order Comment: Speci men Type: BLOOD SPECIMENOrdering Facility: [facility] Address: [address] [place] [address] Performed By: #### 5 7021-8 ####[facility] [id number] [place] [address] [place] Hematocrit (Bld) [Volume fraction] 34.9 % Low 36.0-46.0 [facility] Comment on above: Order Comment: Speci men Type: BLOOD SPECIMENOrdering Facility: [facility] Address: [address] [place] [address] Performed By: #### 5 7021-8 ####[facility] HOSPITALLIA [id number] [place] [address] [place] Hemoglobin (Bld) [Mass/Vol] 11.4 g/dL Low 11.5-15.5 [facility] Comment on above: Order Comment: Speci men Type: BLOOD SPECIMENOrdering Facility: [facility] Address: [address] [place] [address] Performed By: #### 5 7021-8 ####[facility] HOSPITALNCLIA [id number] [place] [address] [place] Immature granulocytes (Bld) [#/Vol] 10*3/uL Normal <0.10 [facility] Comment on above: Order Comment: Speci men Type: BLOOD SPECIMENOrdering Facility: [facility] Address: [address] [place] [address] Performed By: #### 5 7021-8 ####[facility] [id number] [place] [address] [place] Immature granulocytes/100 WBC (Bld) 0.0 % Normal [facility] Comment on above: Order Comment: Speci men Type: BLOOD SPECIMENOrdering Facility: [facility] Address: [address] [place] [address] Performed By: #### 5 7021-8 ####[facility] [id number] [place] [address] [place] Lymphocytes (Bld) [#/Vol] 1.75 10*3/uL Normal 1.00-4.00 [facility] Comment on above: Order Comment: Speci men Type: BLOOD SPECIMENOrdering Facility: [facility] Address: [address] [place] [address] Performed By: #### 5 7021-8 ####[facility] [id number] [place] [address] [place] Lymphocytes/100 WBC (Bld) 38.8 % Normal [facility] Comment on above: Order Comment: Speci men Type: BLOOD SPECIMENOrdering Facility: [facility] Address: [address] [place] [address] Performed By: #### 5 7021-8 ####[facility] [id number] [place] [address] [place] MCH (RBC) [Entitic mass] 29.0 pg Normal 26.0-34.0 [facility] Comment on above: Order Comment: Speci men Type: BLOOD SPECIMENOrdering Facility: [facility] Address: [address] [place] [address] Performed By: #### 5 7021-8 ####[facility] DEVYNBEARDENIESHALIA [id number] [place] [address] [place] MCHC (RBC) [Mass/Vol] 32.7 g/dL Normal 30.5-36.0 [facility] Comment on above: Order Comment: Speci men Type: BLOOD SPECIMENOrdering Facility: [facility] Address: [address] [place] [address] Performed By: #### 5 7021-8 ####[facility] HOSPITALNCLIA [id number] [place] [address] [place] MCV (RBC) [Entitic vol] 88.8 fL Normal 80.0-100.0 [facility] Comment on above: Order Comment: Speci men Type: BLOOD SPECIMENOrdering Facility: [facility] Address: [address] [place] [address] Performed By: #### 5 7021-8 ####[facility] HOSPITALLIA [id number] [place] [address] [place] Monocytes (Bld) [#/Vol] 0.63 10*3/uL Normal <0.87 [facility] Comment on above: Order Comment: Speci men Type: BLOOD SPECIMENOrdering Facility: [facility] Address: [address] [place] [address] Performed By: #### 5 7021-8 ####[facility] HOSPITALLIA [id number] [place] [address] [place] Monocytes/100 WBC (Bld) 14.0 % Normal [facility] Comment on above: Order Comment: Speci men Type: BLOOD SPECIMENOrdering Facility: [facility] Address: [address] [place] [address] Performed By: #### 5 7021-8 ####[facility] HOSPITALNCLI [id number] [place] [address] [place] Neutrophils (Bld) [#/Vol] 2.02 10*3/uL Normal 1.45-7.50 [facility] Comment on above: Order Comment: Speci men Type: BLOOD SPECIMENOrdering Facility: [facility] Address: [address] [place] [address] Performed By: #### 5 7021-8 ####[facility] [id number] [place] [address] [place] Neutrophils/100 WBC (Bld) 44.7 % Normal [facility] Comment on above: Order Comment: Speci men Type: BLOOD SPECIMENOrdering Facility: [facility] Address: [address] [place] [address] Performed By: #### 5 7021-8 ####[facility] [id number] [place] [address] [place] Nucleated RBC (Bld) [#/Vol] 10*3/uL Normal <0.01 [facility] Comment on above: Order Comment: Speci men Type: BLOOD SPECIMENOrdering Facility: [facility] Address: [address] [place] [address] Performed By: #### 5 7021-8 ####[facility] [id number] [place] [address] [place] Nucleated RBC/100 WBC (Bld) [Ratio] 0.0 /100 WBC Normal [facility] Comment on above: Order Comment: Speci men Type: BLOOD SPECIMENOrdering Facility: [facility] Address: [address] [place] [address] Performed By: #### 5 7021-8 ####[facility] [id number] [place] [address] [place] Platelet mean volume (Bld) [Entitic vol] 9.8 fL Normal 9.0-12.7 [facility] Comment on above: Order Comment: Speci men Type: BLOOD SPECIMENOrdering Facility: [facility] Address: [address] [place] [address] Performed By: #### 5 7021-8 ####[facility] AUGIENCLIA [id number] [place] [address] [place] Platelets (Bld) [#/Vol] 289 10*3/uL Normal 150-400 [facility] Comment on above: Order Comment: Speci men Type: BLOOD SPECIMENOrdering Facility: [facility] Address: [address] [place] [address] Performed By: #### 5 7021-8 ####[facility] HOSPITALNCLIA [id number] [place] [address] [place] RBC (Bld) [#/Vol] 3.93 10*6/uL Normal 3.90-5.20 [facility] Comment on above: Order Comment: Speci men Type: BLOOD SPECIMENOrdering Facility: [facility] Address: [address] [place] [address] Performed By: #### 5 7021-8 ####[facility] HOSPITALNCA [id number] [place] [address] [place] WBC (Bld) [#/Vol] 4.51 10*3/uL Normal 3.70-11.00 [facility] Comment on above: Order Comment: Speci men Type: BLOOD SPECIMENOrdering Facility: [facility] Address: [address] [place] [address] Performed By: #### 5 7021-8 ####[facility] HOSPITALNCLIA [id number] [place] [address] [place] CNOVSPon 08-10-2023 CNOVSP Normal [facility] CNPNon 08-10-2023 CNPN Normal [facility] Cancer Ag125 SerPl-aCncon Cancer Ag 125 Qn 148 [arb'U]/mL High <39 [facility] Comment on above: Order Comment: Speci men Type: BLOOD SPECIMENOrdering Facility: [facility] Address: [place] [address] Result Comment: CA 1 25 test methodology used is the Electrochemiluminescence Immunoassay by [employer]. Results obtained with different methods or kits cannot be used interchangeably.The reference interval is based on the 95th percentile of 240 apparently healthy premenopausal and postmenopausal women. At a cutoff value of 65 U/mL, the test sensitivity to distinguish ovarian carcinoma (FIGO stage I to IV) versus benign gynecological disease is 79%, with a specificity of 82%.Reference: Cancer Antigen 125 (CA 125 II) [package insert V 1.0 [place]]. [employer], [place], [place] (July 2015) Performed By: #### 1 0334-1 ####[facility] LABCLIA [id number] [place] [address] [place] Comprehensive metabolic 2000 panelon 08-10-2023 Albumin [Mass/Vol] 4.1 g/dL Normal 3.9-4.9 [facility] Comment on above: Order Comment: Speci men Type: BLOOD SPECIMENOrdering Facility: [facility] Address: [address] [place] [address] Performed By: #### 1 9123-9, 68688-1 ####[facility] [id number] [place] [address] [place] ALP [Catalytic activity/Vol] 64 U/L Normal 34-123 [facility] Comment on above: Order Comment: Speci men Type: BLOOD SPECIMENOrdering Facility: [facility] Address: [address] [place] [address] Performed By: #### 1 9123-9, 38796-3 ####[facility] [id number] [place] [address] [place] ALT [Catalytic activity/Vol] 13 U/L Normal 7-38 [facility] Comment on above: Order Comment: Speci men Type: BLOOD SPECIMENOrdering Facility: [facility] Address: [address] [place] [address] Performed By: #### 1 9123-9, 37036-3 ####[facility] AUGIENCTERESAA [id number] [place] [address] [place] Anion gap [Moles/Vol] 9 mmol/L Normal 9-18 [facility] Comment on above: Order Comment: Speci men Type: BLOOD SPECIMENOrdering Facility: [facility] Address: [address] [place] [address] Performed By: #### 1 9123-9, 51940-7 ####[facility] DEVYNBEARDENKIANA [id number] [place] [address] [place] AST [Catalytic activity/Vol] 16 U/L Normal 13-35 [facility] Comment on above: Order Comment: Speci men Type: BLOOD SPECIMENOrdering Facility: [facility] Address: [address] [place] [address] Performed By: #### 1 9123-9, 28411-8 ####[facility] DEVYNBEARDENKIANA [id number] [place] [address] [place] Bilirubin [Mass/Vol] 0.2 mg/dL Normal 0.2-1.3 [facility] Comment on above: Order Comment: Speci men Type: BLOOD SPECIMENOrdering Facility: [facility] Address: [address] [place] [address] Performed By: #### 1 9123-9, 29447-6 ####[facility] HOSPITALNCLIA [id number] [place] [address] [place] Calcium [Mass/Vol] 9.2 mg/dL Normal 8.5-10.2 [facility] Comment on above: Order Comment: Speci men Type: BLOOD SPECIMENOrdering Facility: [facility] Address: [address] [place] [address] Performed By: #### 1 9123-9, 20625-7 ####[facility] HOSPITALNCLIA [id number] [place] [address] [place] Chloride [Moles/Vol] 102 mmol/L Normal 97-105 [facility] Comment on above: Order Comment: Speci men Type: BLOOD SPECIMENOrdering Facility: [facility] Address: [address] [place] [address] Performed By: #### 1 9123-9, 71293-7 ####[facility] HOSPITALLIA [id number] [place] [address] [place] CO2 [Moles/Vol] 26 mmol/L Normal 22-30 [facility] Comment on above: Order Comment: Speci men Type: BLOOD SPECIMENOrdering Facility: [facility] Address: [address] [place] [address] Performed By: #### 1 9123-9, 07604-2 ####[facility] [id number] [place] [address] [place] Creatinine [Mass/Vol] 0.78 mg/dL Normal 0.58-0.96 [facility] Comment on above: Order Comment: Speci men Type: BLOOD SPECIMENOrdering Facility: [facility] Address: [address] [place] [address] Performed By: #### 1 9123-9, 80176-5 ####[facility] HOSPITALLIA [id number] [place] [address] [place] [facility] Creatinine and Glomerular filtration rate.predicted panel (S/P/Bld) 89 mL/min/1.73m??? Normal >=60 [facility] Comment on above: Order Comment: Speci men Type: BLOOD SPECIMENOrdering Facility: [facility] Address: [address] [place] [address] Result Comment: [place] mated Glomerular Filtration Rate (eGFR) is calculated using the 2020 CKD-EPI creatinine equation. This equation utilizes serum creatinine, sex, and age as parameters. The creatinine assay has traceable calibration to isotope dilution-mass spectrometry. Refer to KDIGO guidelines for clinical interpretation. In patients with unstable renal function, e.g. those with acute kidney injury, the eGFR may not accurately reflect actual GFR. Performed By: #### 1 9123-9, 98902-3 ####[facility] DEVYNTOWNCLIA [id number] [place] [address] [place] Glucose [Mass/Vol] 101 mg/dL High 74-99 [facility] Comment on above: Order Comment: Tessie cxo Type: BLOOD SPECIMENOrdering Facility: [facility] Address: [address] [place] [address] Result Comment: The [place] Diabetes Association (ADA) provides guidance for cutoff values for fasting glucose and random glucose. The ADA defines fasting as no caloric intake for at least 8 hours. Fasting plasma glucose results between 100 to 125 mg/dL indicate increased risk for diabetes (prediabetes).Fasting plasma glucose results greater than or equal to 126 mg/dL meet the criteria for diagnosis of diabetes. In the absence of unequivocal hyperglycemia, results should be confirmed by repeat testing. In a patient with classic symptoms of hyperglycemia or hyperglycemic crisis, random plasma glucose results greater than or equal to 200 mg/dL meet the criteria for diagnosis of diabetes.Reference: Standards of Medical Care in Diabetes 2016, [place] Diabetes Association. Diabetes Care. 2016.39(Suppl 1). Performed By: #### 1 9123-9, ####[facility] HEALTHTOWNCLIA [id number] [place] [address] [place] Potassium [Moles/Vol] 4.2 mmol/L Normal 3.7-5.1 [facility] Comment on above: Order Comment: Tessie cox Type: BLOOD SPECIMENOrdering Facility: [facility] Address: [address] [place] [id number] Performed By: #### 1 9123-9, ####[facility] DEVYNWNCLIA [id number] [place] [address] [place] Protein [Mass/Vol] 7.1 g/dL Normal 6.3-8.0 [facility] Comment on above: Order Comment: Speci men Type: BLOOD SPECIMENOrdering Facility: [facility] Address: [place] [address] Performed By: #### 1 9123-9, 82625-1 ####[facility] MILLTHUNCTERESAA [id number] [place] [address] [place] Sodium [Moles/Vol] 137 mmol/L Normal 136-144 [facility] Comment on above: Order Comment: Speci men Type: BLOOD SPECIMENOrdering Facility: [facility] Address: [address] [place] [address] Performed By: #### 1 9123-9, 20104-7 ####[facility] HOSPITALNCLIA [id number] [place] [address] [place] Urea nitrogen [Mass/Vol] 14 mg/dL Normal 7-21 [facility] Comment on above: Order Comment: Speci men Type: BLOOD SPECIMENOrdering Facility: [facility] Address: [address] [place] [address] Performed By: #### 1 9123-9, 07938-7 ####[facility] HOSPITALNCTERESAA [id number] [place] [address] [place] Magnesium SerPl-mCncon 08-10 Magnesium [Mass/Vol] 1.8 mg/dL Normal 1.7-2.3 [facility] Comment on above: Order Comment: Speci men Type: BLOOD SPECIMENOrdering Facility: [facility] Address: [address] [place] [address] Performed By: #### 1 9123-9, 54827-4 ####[facility] MILLTONCLIA [id number] [place] [address] [place] XR CHEST 2V FRONTAL/LATon XR CHEST 2V FRONTAL/LAT Normal [facility] CBC W Auto Differential pane l (Bld)on 07-27-2023 Anisocytosis Ql (Bld) Present [facility] Basophils (Bld) [#/Vol] 0.05 10*3/uL <0.11 k/uL [facility] Basophils/100 WBC (Bld) 1.0 % [facility] Differential cell count method Nom (Bld) Manual [facility] Eosinophils (Bld) [#/Vol] 0.00 10*3/uL <0.46 k/uL [facility] Eosinophils/100 WBC (Bld) 0.0 % [facility] Erythrocyte distribution width (RBC) [Ratio] 17.7 % High 11.5 - 15.0 % [facility] Hematocrit (Bld) [Volume fraction] 33.1 % Low 36.0 - 46.0 % [facility] Hemoglobin (Bld) [Mass/Vol] 11.2 g/dL Low 11.5 - 15.5 g/dL [facility] Lymphocytes (Bld) [#/Vol] 1.37 10*3/uL 1.00 - 4.00 k/uL [facility] Lymphocytes/100 WBC (Bld) 25.0 % [facility] MCH (RBC) [Entitic mass] 29.3 pg 26.0 - 34.0 pg [facility] MCHC (RBC) [Mass/Vol] 33.8 g/dL 30.5 - 36.0 g/dL [facility] MCV (RBC) [Entitic vol] 86.6 fL 80.0 - 100.0 fL [facility] Monocytes (Bld) [#/Vol] 0.22 10*3/uL <0.87 k/uL [facility] Monocytes/100 WBC (Bld) 4.0 % [facility] Neutrophils (Bld) [#/Vol] 3.84 10*3/uL 1.45 - 7.50 k/uL [facility] Neutrophils/100 WBC (Bld) 70.0 % [facility] Nucleated RBC (Bld) [#/Vol] <0.01 k/uL [facility] Nucleated RBC/100 WBC (Bld) [Ratio] 0.0 /100 WBC [facility] Platelet mean volume (Bld) [Entitic vol] 9.6 fL 9.0 - 12.7 fL [facility] Platelets (Bld) [#/Vol] 221 10*3/uL 150 - 400 k/uL [facility] Platelets Estimate (Bld) [#/Vol] Adequate [facility] RBC (Bld) [#/Vol] 3.82 10*6/uL Low 3.90 - 5.2 0 m/uL [facility] Red Cell Morph Reviewed: see result s of individual morphologies [facility] WBC (Bld) [#/Vol] 5.49 10*3/uL 3.70 - 11.00 k/uL [facility] XR CHEST 2V FRONTAL/LATon [facility] No Panel Informationon 07-07 [facility] CBC W Auto Differential pane l (Bld)on 06-22-2023 Basophils (Bld) [#/Vol] 0.06 10*3/uL <0.11 k/uL [facility] Basophils/100 WBC (Bld) 0.9 % [facility] Differential cell count method Nom (Bld) Auto [facility] Eosinophils (Bld) [#/Vol] 0.08 10*3/uL <0.46 k/uL [facility] Eosinophils/100 WBC (Bld) 1.2 % [facility] Erythrocyte distribution width (RBC) [Ratio] 17.7 % High 11.5 - 15.0 % [facility] Hematocrit (Bld) [Volume fraction] 36.0 % 36.0 - 46.0 % [facility] Hemoglobin (Bld) [Mass/Vol] 11.8 g/dL 11.5 - 15.5 g/dL [facility] Immature granulocytes (Bld) [#/Vol] <0.10 k/uL [facility] Immature granulocytes/100 WBC (Bld) 0.3 % [facility] Lymphocytes (Bld) [#/Vol] 2.15 10*3/uL 1.00 - 4.00 k/uL [facility] Lymphocytes/100 WBC (Bld) 32.4 % [facility] MCH (RBC) [Entitic mass] 28.2 pg 26.0 - 34.0 pg [facility] MCHC (RBC) [Mass/Vol] 32.8 g/dL 30.5 - 36.0 g/dL [facility] MCV (RBC) [Entitic vol] 85.9 fL 80.0 - 100.0 fL [facility] Monocytes (Bld) [#/Vol] 0.72 10*3/uL <0.87 k/uL [facility] Monocytes/100 WBC (Bld) 10.8 % [facility] Neutrophils (Bld) [#/Vol] 3.61 10*3/uL 1.45 - 7.50 k/uL [facility] Neutrophils/100 WBC (Bld) 54.4 % [facility] Nucleated RBC (Bld) [#/Vol] <0.01 k/uL [facility] Nucleated RBC/100 WBC (Bld) [Ratio] 0.0 /100 WBC [facility] Platelet mean volume (Bld) [Entitic vol] 9.1 fL 9.0 - 12.7 fL [facility] Platelets (Bld) [#/Vol] 340 10*3/uL 150 - 400 k/uL [facility] RBC (Bld) [#/Vol] 4.19 10*6/uL 3.90 - 5.2 0 m/uL [facility] WBC (Bld) [#/Vol] 6.64 10*3/uL 3.70 - 11.00 k/uL [facility] Comprehensive metabolic 2000 panelon 06-22-2023 Albumin [Mass/Vol] 4.2 g/dL 3.9 - 4.9 g/dL [facility] ALP [Catalytic activity/Vol] 76 U/L 34 - 123 U/L [facility] ALT [Catalytic activity/Vol] 12 U/L 7 - 38 U/L [facility] Anion gap [Moles/Vol] 10 mmol/L 9 - 18 mmol/L [facility] AST [Catalytic activity/Vol] 16 U/L 13 - 35 U/L [facility] Bilirubin [Mass/Vol] 0.2 mg/dL 0.2 - 1 .3 mg/dL [facility] Calcium [Mass/Vol] 9.7 mg/dL 8.5 - 10. 2 mg/dL [facility] Chloride [Moles/Vol] 103 mmol/L 97 - 10 5 mmol/L [facility] CO2 [Moles/Vol] 24 mmol/L 22 - 30 mmol/L [facility] Creatinine [Mass/Vol] 0.75 mg/dL 0.58 - 0.96 mg/dL [facility] Estimated Glomerular Filtration Rate 93 mL/min/1.73m >=60 mL/min/1.73 m [facility] Glucose [Mass/Vol] 108 mg/dL High 74 - 99 mg/dL [facility] Potassium [Moles/Vol] 4.1 mmol/L 3.7 - 5.1 mmol/L [facility] Protein [Mass/Vol] 7.4 g/dL 6.3 - 8.0 g/dL [facility] Sodium [Moles/Vol] 137 mmol/L 136 - 144 mmol/L [facility] Urea nitrogen [Mass/Vol] 14 mg/dL 7 - 21 mg/dL [facility] MAGNESIUM BLDon 06-22-2023 Magnesium [Mass/Vol] 1.9 mg/dL 1.7 - 2 .3 mg/dL [facility] UA DIP, URINE (POC)on 2022 BILIRUBIN UA (POCT) Negative Negative [facility] CLARITY UA (POCT) Clear [facility] COLOR UA (POCT) Yellow [facility] GLUCOSE UA (POCT) Negative Negative mg/dL [facility] Hemoglobin Ql (U) Negative Negative [facility] KETONE UA (POCT) Negative Negative mg/dL [facility] LEUKOCYTES UA (POCT) Negative Negative [facility] NITRITE UA (POCT) Negative Negative [facility] PH UA (POCT) 5.0 4.5 - 8.0 [facility] Protein Ql (U) Negative Negative mg/dL [facility] SPECIFIC GRAVITY UA (POCT) 1.020 1.005 - 1.030 [facility] UROBILINOGEN UA (POCT) 0.2 E.U./dL Normal E.U./dL [facility] XR CHEST 2V FRONTAL/LATon [facility] ANTONETTE DIAG W SARA BILATERALon 06-13-2023 [facility] US BREAST LTD RIGHTon 2022 [facility] CBC W Auto Differential pane l (Bld)on 05-31-2023 Basophils (Bld) [#/Vol] <0.11 k/uL [facility] Basophils/100 WBC (Bld) 0.3 % [facility] Differential cell count method Nom (Bld) Auto [facility] Eosinophils (Bld) [#/Vol] 0.06 10*3/uL <0.46 k/uL [facility] Eosinophils/100 WBC (Bld) 1.5 % [facility] Erythrocyte distribution width (RBC) [Ratio] 14.5 % 11.5 - 15.0 % [facility] Hematocrit (Bld) [Volume fraction] 34.6 % Low 36.0 - 46.0 % [facility] Hemoglobin (Bld) [Mass/Vol] 11.5 g/dL 11.5 - 15.5 g/dL [facility] Immature granulocytes (Bld) [#/Vol] 0.03 10*3/uL <0.10 k/uL [facility] Immature granulocytes/100 WBC (Bld) 0.8 % [facility] Lymphocytes (Bld) [#/Vol] 1.33 10*3/uL 1.00 - 4.00 k/uL [facility] Lymphocytes/100 WBC (Bld) 34.3 % [facility] MCH (RBC) [Entitic mass] 27.8 pg 26.0 - 34.0 pg [facility] MCHC (RBC) [Mass/Vol] 33.2 g/dL 30.5 - 36.0 g/dL [facility] MCV (RBC) [Entitic vol] 83.6 fL 80.0 - 100.0 fL [facility] Monocytes (Bld) [#/Vol] 0.68 10*3/uL <0.87 k/uL [facility] Monocytes/100 WBC (Bld) 17.5 % [facility] Neutrophils (Bld) [#/Vol] 1.77 10*3/uL 1.45 - 7.50 k/uL [facility] Neutrophils/100 WBC (Bld) 45.6 % [facility] Nucleated RBC (Bld) [#/Vol] <0.01 k/uL [facility] Nucleated RBC/100 WBC (Bld) [Ratio] 0.0 /100 WBC [facility] Platelet mean volume (Bld) [Entitic vol] 9.2 fL 9.0 - 12.7 fL [facility] Platelets (Bld) [#/Vol] 297 10*3/uL 150 - 400 k/uL [facility] RBC (Bld) [#/Vol] 4.14 10*6/uL 3.90 - 5.2 0 m/uL [facility] WBC (Bld) [#/Vol] 3.88 10*3/uL 3.70 - 11.00 k/uL [facility] Comprehensive metabolic 2000 panelon 05-31-2023 Albumin [Mass/Vol] 3.8 g/dL Low 3.9 - 4.9 g/dL [facility] ALP [Catalytic activity/Vol] 86 U/L 34 - 123 U/L [facility] ALT [Catalytic activity/Vol] 14 U/L 7 - 38 U/L [facility] Anion gap [Moles/Vol] 12 mmol/L 9 - 18 mmol/L [facility] AST [Catalytic activity/Vol] 14 U/L 13 - 35 U/L [facility] Bilirubin [Mass/Vol] 0.3 mg/dL 0.2 - 1 .3 mg/dL [facility] Calcium [Mass/Vol] 9.3 mg/dL 8.5 - 10. 2 mg/dL [facility] Chloride [Moles/Vol] 102 mmol/L 97 - 10 5 mmol/L [facility] CO2 [Moles/Vol] 23 mmol/L 22 - 30 mmol/L [facility] Creatinine [Mass/Vol] 0.80 mg/dL 0.58 - 0.96 mg/dL [facility] Estimated Glomerular Filtration Rate 86 mL/min/1.73m >=60 mL/min/1.73 m [facility] Glucose [Mass/Vol] 110 mg/dL High 74 - 99 mg/dL [facility] Potassium [Moles/Vol] 4.0 mmol/L 3.7 - 5.1 mmol/L [facility] Protein [Mass/Vol] 6.8 g/dL 6.3 - 8.0 g/dL [facility] Sodium [Moles/Vol] 137 mmol/L 136 - 144 mmol/L [facility] Urea nitrogen [Mass/Vol] 15 mg/dL 7 - 21 mg/dL [facility] MAGNESIUM BLDon 05-31-2023 Magnesium [Mass/Vol] 1.8 mg/dL 1.7 - 2 .3 mg/dL [facility] UA DIP, URINE (POC)on 2022 BILIRUBIN UA (POCT) Negative Negative [facility] CLARITY UA (POCT) Slightly Cloudy Cl [facility] COLOR UA (POCT) Dark yellow [facility] GLUCOSE UA (POCT) Negative Negative mg/dL [facility] Hemoglobin Ql (U) Negative Negative [facility] KETONE UA (POCT) Negative Negative mg/dL [facility] LEUKOCYTES UA (POCT) Negative Negative [facility] NITRITE UA (POCT) Negative Negative [facility] PH UA (POCT) 7.0 4.5 - 8.0 [facility] Protein Ql (U) 30 mg/dL Abnormal Negative mg/dL [facility] SPECIFIC GRAVITY UA (POCT) 1.020 1.005 - 1.030 [facility] UROBILINOGEN UA (POCT) 0.2 E.U./dL Normal E.U./dL [facility] XR CHEST 2V FRONTAL/LATon [facility] Progress Noteon 05-22-2023 Progress Note LM for jonathan Diaz owing up since our last visit in November. Let her know that I hope she is doing well, I understand that she transferred her care closer to home. Notified her that I completed her Treatment Summary, a brief record of her treatments here at the [facility], and will be placing it in the mail to her, asked that she review it and reach out to me with any questions. Mailed Care Plan Treatment Summary on 05/23/23. Normal [facility] CBC W Auto Differential pane l (Bld)on 05-19-2023 Basophils (Bld) [#/Vol] <0.11 k/uL [facility] Basophils/100 WBC (Bld) 0.4 % [facility] Differential cell count method Nom (Bld) Auto [facility] Eosinophils (Bld) [#/Vol] 0.15 10*3/uL <0.46 k/uL [facility] Eosinophils/100 WBC (Bld) 3.1 % [facility] Erythrocyte distribution width (RBC) [Ratio] 13.2 % 11.5 - 15.0 % [facility] Hematocrit (Bld) [Volume fraction] 34.6 % Low 36.0 - 46.0 % [facility] Hemoglobin (Bld) [Mass/Vol] 11.3 g/dL Low 11.5 - 15.5 g/dL [facility] Immature granulocytes (Bld) [#/Vol] <0.10 k/uL [facility] Immature granulocytes/100 WBC (Bld) 0.4 % [facility] Lymphocytes (Bld) [#/Vol] 1.72 10*3/uL 1.00 - 4.00 k/uL [facility] Lymphocytes/100 WBC (Bld) 36.0 % [facility] MCH (RBC) [Entitic mass] 27.3 pg 26.0 - 34.0 pg [facility] MCHC (RBC) [Mass/Vol] 32.7 g/dL 30.5 - 36.0 g/dL [facility] MCV (RBC) [Entitic vol] 83.6 fL 80.0 - 100.0 fL [facility] Monocytes (Bld) [#/Vol] 0.21 10*3/uL <0.87 k/uL [facility] Monocytes/100 WBC (Bld) 4.4 % [facility] Neutrophils (Bld) [#/Vol] 2.66 10*3/uL 1.45 - 7.50 k/uL [facility] Neutrophils/100 WBC (Bld) 55.7 % [facility] Nucleated RBC (Bld) [#/Vol] <0.01 k/uL [facility] Nucleated RBC/100 WBC (Bld) [Ratio] 0.0 /100 WBC [facility] Platelet mean volume (Bld) [Entitic vol] 8.5 fL Low 9.0 - 12.7 fL [facility] Platelets (Bld) [#/Vol] 282 10*3/uL 150 - 400 k/uL [facility] RBC (Bld) [#/Vol] 4.14 10*6/uL 3.90 - 5.2 0 m/uL [facility] WBC (Bld) [#/Vol] 4.78 10*3/uL 3.70 - 11.00 k/uL [facility] Comprehensive metabolic 2000 panelon 05-19-2023 Albumin [Mass/Vol] 3.4 g/dL Low 3.9 - 4.9 g/dL [facility] ALP [Catalytic activity/Vol] 74 U/L 34 - 123 U/L [facility] ALT [Catalytic activity/Vol] 14 U/L 7 - 38 U/L [facility] Anion gap [Moles/Vol] 10 mmol/L 9 - 18 mmol/L [facility] AST [Catalytic activity/Vol] 18 U/L 13 - 35 U/L [facility] Bilirubin [Mass/Vol] 0.2 mg/dL 0.2 - 1 .3 mg/dL [facility] Calcium [Mass/Vol] 9.0 mg/dL 8.5 - 10. 2 mg/dL [facility] Chloride [Moles/Vol] 103 mmol/L 97 - 10 5 mmol/L [facility] CO2 [Moles/Vol] 24 mmol/L 22 - 30 mmol/L [facility] Creatinine [Mass/Vol] 0.87 mg/dL 0.58 - 0.96 mg/dL [facility] Estimated Glomerular Filtration Rate 78 mL/min/1.73m >=60 mL/min/1.73 m [facility] Glucose [Mass/Vol] 122 mg/dL High 74 - 99 mg/dL [facility] Potassium [Moles/Vol] 3.7 mmol/L 3.7 - 5.1 mmol/L [facility] Protein [Mass/Vol] 6.8 g/dL 6.3 - 8.0 g/dL [facility] Sodium [Moles/Vol] 137 mmol/L 136 - 144 mmol/L [facility] Urea nitrogen [Mass/Vol] 14 mg/dL 7 - 21 mg/dL [facility] MAGNESIUM BLDon 05-19-2023 Magnesium [Mass/Vol] 1.8 mg/dL 1.7 - 2 .3 mg/dL [facility] CBC W Auto Differential pane l (Bld)on 05-12-2023 Basophils (Bld) [#/Vol] 0.04 10*3/uL <0.11 k/uL [facility] Basophils/100 WBC (Bld) 0.6 % [facility] Differential cell count method Nom (Bld) Auto [facility] Eosinophils (Bld) [#/Vol] 0.15 10*3/uL <0.46 k/uL [facility] Eosinophils/100 WBC (Bld) 2.3 % [facility] Erythrocyte distribution width (RBC) [Ratio] 13.7 % 11.5 - 15.0 % [facility] Hematocrit (Bld) [Volume fraction] 36.6 % 36.0 - 46.0 % [facility] Hemoglobin (Bld) [Mass/Vol] 12.3 g/dL 11.5 - 15.5 g/dL [facility] Immature granulocytes (Bld) [#/Vol] <0.10 k/uL [facility] Immature granulocytes/100 WBC (Bld) 0.2 % [facility] Lymphocytes (Bld) [#/Vol] 1.85 10*3/uL 1.00 - 4.00 k/uL [facility] Lymphocytes/100 WBC (Bld) 27.8 % [facility] MCH (RBC) [Entitic mass] 28.0 pg 26.0 - 34.0 pg [facility] MCHC (RBC) [Mass/Vol] 33.6 g/dL 30.5 - 36.0 g/dL [facility] MCV (RBC) [Entitic vol] 83.2 fL 80.0 - 100.0 fL [facility] Monocytes (Bld) [#/Vol] 0.57 10*3/uL <0.87 k/uL [facility] Monocytes/100 WBC (Bld) 8.6 % [facility] Neutrophils (Bld) [#/Vol] 4.03 10*3/uL 1.45 - 7.50 k/uL [facility] Neutrophils/100 WBC (Bld) 60.5 % [facility] Nucleated RBC (Bld) [#/Vol] <0.01 k/uL [facility] Nucleated RBC/100 WBC (Bld) [Ratio] 0.0 /100 WBC [facility] Platelet mean volume (Bld) [Entitic vol] 9.0 fL 9.0 - 12.7 fL [facility] Platelets (Bld) [#/Vol] 316 10*3/uL 150 - 400 k/uL [facility] RBC (Bld) [#/Vol] 4.40 10*6/uL 3.90 - 5.2 0 m/uL [facility] WBC (Bld) [#/Vol] 6.65 10*3/uL 3.70 - 11.00 k/uL [facility] Comprehensive metabolic 2000 panelon 05-12-2023 Albumin [Mass/Vol] 3.5 g/dL Low 3.9 - 4.9 g/dL [facility] ALP [Catalytic activity/Vol] 68 U/L 34 - 123 U/L [facility] ALT [Catalytic activity/Vol] 9 U/L 7 - 38 U/L [facility] Anion gap [Moles/Vol] 10 mmol/L 9 - 18 mmol/L [facility] AST [Catalytic activity/Vol] 14 U/L 13 - 35 U/L [facility] Bilirubin [Mass/Vol] 0.4 mg/dL 0.2 - 1 .3 mg/dL [facility] Calcium [Mass/Vol] 9.0 mg/dL 8.5 - 10. 2 mg/dL [facility] Chloride [Moles/Vol] 102 mmol/L 97 - 10 5 mmol/L [facility] CO2 [Moles/Vol] 24 mmol/L 22 - 30 mmol/L [facility] Creatinine [Mass/Vol] 0.74 mg/dL 0.58 - 0.96 mg/dL [facility] Estimated Glomerular Filtration Rate 95 mL/min/1.73m >=60 mL/min/1.73 m [facility] Glucose [Mass/Vol] 117 mg/dL High 74 - 99 mg/dL [facility] Potassium [Moles/Vol] 4.2 mmol/L 3.7 - 5.1 mmol/L [facility] Protein [Mass/Vol] 6.6 g/dL 6.3 - 8.0 g/dL [facility] Sodium [Moles/Vol] 136 mmol/L 136 - 144 mmol/L [facility] Urea nitrogen [Mass/Vol] 10 mg/dL 7 - 21 mg/dL [facility] MAGNESIUM BLDon 05-12-2023 Magnesium [Mass/Vol] 1.9 mg/dL 1.7 - 2 .3 mg/dL [facility] No Panel Informationon 04-28 [facility] CBC W Auto Differential pane l (Bld)on 03-22-2023 Basophils (Bld) [#/Vol] 0.05 10*3/uL <0.11 k/uL [facility] Basophils/100 WBC (Bld) 0.7 % [facility] Differential cell count method Nom (Bld) Auto [facility] Eosinophils (Bld) [#/Vol] 0.32 10*3/uL <0.46 k/uL [facility] Eosinophils/100 WBC (Bld) 4.3 % [facility] Erythrocyte distribution width (RBC) [Ratio] 14.2 % 11.5 - 15.0 % [facility] Hematocrit (Bld) [Volume fraction] 40.8 % 36.0 - 46.0 % [facility] Hemoglobin (Bld) [Mass/Vol] 13.2 g/dL 11.5 - 15.5 g/dL [facility] Immature granulocytes (Bld) [#/Vol] 0.03 10*3/uL <0.10 k/uL [facility] Immature granulocytes/100 WBC (Bld) 0.4 % [facility] Lymphocytes (Bld) [#/Vol] 2.24 10*3/uL 1.00 - 4.00 k/uL [facility] Lymphocytes/100 WBC (Bld) 30.3 % [facility] MCH (RBC) [Entitic mass] 28.2 pg 26.0 - 34.0 pg [facility] MCHC (RBC) [Mass/Vol] 32.4 g/dL 30.5 - 36.0 g/dL [facility] MCV (RBC) [Entitic vol] 87.2 fL 80.0 - 100.0 fL [facility] Monocytes (Bld) [#/Vol] 0.54 10*3/uL <0.87 k/uL [facility] Monocytes/100 WBC (Bld) 7.3 % [facility] Neutrophils (Bld) [#/Vol] 4.21 10*3/uL 1.45 - 7.50 k/uL [facility] Neutrophils/100 WBC (Bld) 57.0 % [facility] Nucleated RBC (Bld) [#/Vol] <0.01 k/uL [facility] Nucleated RBC/100 WBC (Bld) [Ratio] 0.0 /100 WBC [facility] Platelet mean volume (Bld) [Entitic vol] 10.1 fL 9.0 - 12.7 fL [facility] Platelets (Bld) [#/Vol] 218 10*3/uL 150 - 400 k/uL [facility] RBC (Bld) [#/Vol] 4.68 10*6/uL 3.90 - 5.2 0 m/uL [facility] WBC (Bld) [#/Vol] 7.39 10*3/uL 3.70 - 11.00 k/uL [facility] Comprehensive metabolic 2000 panelon 03-22-2023 Albumin [Mass/Vol] 4.3 g/dL 3.9 - 4.9 g/dL [facility] ALP [Catalytic activity/Vol] 65 U/L 34 - 123 U/L [facility] ALT [Catalytic activity/Vol] 18 U/L 7 - 38 U/L [facility] Anion gap [Moles/Vol] 10 mmol/L 9 - 18 mmol/L [facility] AST [Catalytic activity/Vol] 21 U/L 13 - 35 U/L [facility] Bilirubin [Mass/Vol] 0.3 mg/dL 0.2 - 1 .3 mg/dL [facility] Calcium [Mass/Vol] 9.5 mg/dL 8.5 - 10. 2 mg/dL [facility] Chloride [Moles/Vol] 106 mmol/L High 97 - 10 5 mmol/L [facility] CO2 [Moles/Vol] 25 mmol/L 22 - 30 mmol/L [facility] Creatinine [Mass/Vol] 0.79 mg/dL 0.58 - 0.96 mg/dL [facility] Estimated Glomerular Filtration Rate 87 mL/min/1.73m >=60 mL/min/1.73 m [facility] Glucose [Mass/Vol] 106 mg/dL High 74 - 99 mg/dL [facility] Potassium [Moles/Vol] 4.1 mmol/L 3.7 - 5.1 mmol/L [facility] Protein [Mass/Vol] 6.9 g/dL 6.3 - 8.0 g/dL [facility] Sodium [Moles/Vol] 141 mmol/L 136 - 144 mmol/L [facility] Urea nitrogen [Mass/Vol] 12 mg/dL 7 - 21 mg/dL [facility] Laboratory - Chemistry and C hemistry - challengeon 03-22-2023 Cancer Ag 125 Qn 112 [arb'U]/mL High <39 U/mL [facility] 36on 02-22-2023 36 Evelyn called to y she is going to move her care closer to home. She said the staff has been wonderful to her. Her decision is based on location. I gave her the number to get her medical records switched. Normal [facility] [place] 125 BLDon 02-10-2023 Cancer Ag 125 Qn 56 [arb'U]/mL High <39 U/mL [facility] CBC W Auto Differential pane l (Bld)on 02-09-2023 Basophils (Bld) [#/Vol] 0.06 10*3/uL <0.11 k/uL [facility] Basophils/100 WBC (Bld) 0.7 % [facility] Differential cell count method Nom (Bld) Auto [facility] Eosinophils (Bld) [#/Vol] 0.27 10*3/uL <0.46 k/uL [facility] Eosinophils/100 WBC (Bld) 3.2 % [facility] Erythrocyte distribution width (RBC) [Ratio] 15.0 % 11.5 - 15.0 % [facility] Hematocrit (Bld) [Volume fraction] 41.8 % 36.0 - 46.0 % [facility] Hemoglobin (Bld) [Mass/Vol] 13.8 g/dL 11.5 - 15.5 g/dL [facility] Immature granulocytes (Bld) [#/Vol] <0.10 k/uL [facility] Immature granulocytes/100 WBC (Bld) 0.2 % [facility] Lymphocytes (Bld) [#/Vol] 2.44 10*3/uL 1.00 - 4.00 k/uL [facility] Lymphocytes/100 WBC (Bld) 29.0 % [facility] MCH (RBC) [Entitic mass] 28.5 pg 26.0 - 34.0 pg [facility] MCHC (RBC) [Mass/Vol] 33.0 g/dL 30.5 - 36.0 g/dL [facility] MCV (RBC) [Entitic vol] 86.4 fL 80.0 - 100.0 fL [facility] Monocytes (Bld) [#/Vol] 0.44 10*3/uL <0.87 k/uL [facility] Monocytes/100 WBC (Bld) 5.2 % [facility] Neutrophils (Bld) [#/Vol] 5.19 10*3/uL 1.45 - 7.50 k/uL [facility] Neutrophils/100 WBC (Bld) 61.7 % [facility] Nucleated RBC (Bld) [#/Vol] <0.01 k/uL [facility] Nucleated RBC/100 WBC (Bld) [Ratio] 0.0 /100 WBC [facility] Platelet mean volume (Bld) [Entitic vol] 9.3 fL 9.0 - 12.7 fL [facility] Platelets (Bld) [#/Vol] 295 10*3/uL 150 - 400 k/uL [facility] RBC (Bld) [#/Vol] 4.84 10*6/uL 3.90 - 5.2 0 m/uL [facility] WBC (Bld) [#/Vol] 8.42 10*3/uL 3.70 - 11.00 k/uL [facility] Comprehensive metabolic 2000 panelon 02-09-2023 Albumin [Mass/Vol] 4.9 g/dL 3.9 - 4.9 g/dL [facility] ALP [Catalytic activity/Vol] 90 U/L 34 - 123 U/L [facility] ALT [Catalytic activity/Vol] 18 U/L 7 - 38 U/L [facility] Anion gap [Moles/Vol] 12 mmol/L 9 - 18 mmol/L [facility] AST [Catalytic activity/Vol] 19 U/L 13 - 35 U/L [facility] Bilirubin [Mass/Vol] 0.4 mg/dL 0.2 - 1 .3 mg/dL [facility] Calcium [Mass/Vol] 9.7 mg/dL 8.5 - 10. 2 mg/dL [facility] Chloride [Moles/Vol] 99 mmol/L 97 - 10 5 mmol/L [facility] CO2 [Moles/Vol] 27 mmol/L 22 - 30 mmol/L [facility] Creatinine [Mass/Vol] 0.82 mg/dL 0.58 - 0.96 mg/dL [facility] Estimated Glomerular Filtration Rate 84 mL/min/1.73m >=60 mL/min/1.73 m [facility] Glucose [Mass/Vol] 105 mg/dL High 74 - 99 mg/dL [facility] Potassium [Moles/Vol] 4.0 mmol/L 3.7 - 5.1 mmol/L [facility] Protein [Mass/Vol] 7.9 g/dL 6.3 - 8.0 g/dL [facility] Sodium [Moles/Vol] 138 mmol/L 136 - 144 mmol/L [facility] Urea nitrogen [Mass/Vol] 14 mg/dL 7 - 21 mg/dL [facility] PET+CT Whole body Bone W 18F -NaF IVOrdered By: [facility] Provider on 02-06-2023 Interpretation and review of laboratory results Abnormal [facility] Radiology Result ACTIONABLE Abnormal [facility] Comment on above: This report contains an incidental or actionable finding. This finding may be a new finding separate from the reason your provider ordered the imaging test or it may be an already known finding that needs additional or continued follow-up. Because of this incidental or actionable finding, you may need another test (imaging or a different type of test). Please contact your provider for the next steps. [facility] PET+CT Whole body Bone W 18F -NaF Young 02-06-2023 IMPRESSION: 1. NECK: * Asymmetric hypermetabolism along the right palatine tonsil, indeterminate. Recommend correlation with direct inspection. * Otherwise no FDG avid neoplastic process. 2. CHEST: * No FDG avid neoplastic process. * 9 mm left upper lobe groundglass/semisolid nodule is not FDG avid and likely represents a primary lung neoplasm along the adenocarcinoma spectrum. 3. ABDOMEN/PELVIS: * No FDG avid neoplastic process. 4. EXTREMITIES/SKELETON: * No suspicious FDG avid osseous lesion. ACTIONABLE RESULT: FOLLOW-UP Acuity: Actionable Findings: Digestive Tract Routing Code: GI_1 Recommendation: Unlisted Recommendation (see report) Time Frame: At the discretion of the clinical team. COMMUNICATION: Results will be communicated with the ordering provider via [employer] staff message or phone message by [employer] within 2 business days of report finalization. Algorithms for management of incidental imaging findings can be found on the [facility] Intranet Sharepoint site at: [email or web address] [email or web address] Transcribed Using Voice Recognition Transcribe Date/Time: Feb 06 2023 12:56P Dictated by: JOSÉ MIGUEL PETERS MD This examination was interpreted and the report reviewed and electronically signed by: JOSÉ MIGUEL PETERS MD on Feb 06 2023 1:18PM [facility] RAD[facility] * * *Final Report* * * DATE OF EXAM: Feb 03 2023 1:40PM [facility] 0064 - NM PET/CT WHOLE BODY SUBQ / PROCEDURE REASON: multiple diagnoses * * * * Physician Interpretation * * * * RESULT: EXAMINATION: WHOLE BODY FDG PET/CT SCAN: HISTORY: High-grade serous carcinoma bilateral ovaries with CT scan demonstrating left upper lobe nodule, left hepatic lesion, left pelvic sidewall nodule and iliac lymphadenopathy.. INDICATION: Study performed for subsequent treatment strategy. TECHNIQUE: F18-FDG administered IV was followed about 60 minutes later by PET imaging from eyes to proximal thighs. Free breathing low dose CT was performed without contrast for attenuation correction and anatomic localization. FDG radionuclide dose: 8.[address] Dose-Length Product (DLP): 140 mGy*cm. CT Dose Reduction Employed: Yes COMPARISON: None CORRELATION: None RESULT: Pack Changer (topogram) images: No additional findings. - Mediastinum blood pool activity: Max SUV: 1.8 - Background liver activity: Max SUV: 2.4 HEAD AND NECK: Focal hypermetabolism along the right palatine tonsil (Max SUV 7.6) with associated soft tissue fullness. Physiologic uptake seen in the visualized brain, extraocular muscles, parapharyngeal soft tissues, base of tongue, vocal cords, and salivary glands. No FDG avid cervical lymphadenopathy or mass. No FDG avid thyroid lesion. CHEST: Right chest port terminates in the right atrium. Physiologic uptake in the heart and mediastinum. Lungs and tracheobronchial tree: -0.9 cm left apicoposterior groundglass/semisolid nodule without associated hypermetabolism (Max SUV 0.6). -Additional scattered smaller pulmonary nodules, for example a 4 mm nodule within the posterior right upper lobe, below the resolution of PET. -No hypermetabolic pulmonary lesions. -Emphysema. Note that PET/CT is not sensitive for pulmonary nodules less than 8 mm. Pleura: No FDG avid pleural effusion or pleural mass. Mediastinum and Lymph nodes: 0.9 cm right prevascular node with low level hypermetabolism (Max SUV 2.6), likely reactive. Heart and great vessels: Physiologic uptake in the heart. Chest wall and axilla: No FDG avid axillary lymphadenopathy. ABDOMEN AND PELVIS: Physiologic uptake seen in the and GI tracts. Liver: No FDG avid lesion. Low-attenuation lesion centered between the posterior aspect of the left hepatic lobe and the body of the pancreas, without associated hypermetabolism. Biliary: Gallbladder is unremarkable. Spleen: No FDG avid lesion. No splenomegaly. Pancreas: No FDG avid lesion. Adrenals: No FDG avid lesion. Kidneys: No stones, hydronephrosis, or FDG avid lesions. GI tract: No dilation or focal suspicious FDG avid lesion. Lymph nodes: No FDG avid abdominal or pelvic lymphadenopathy. Left external iliac/obturator node measures 0.7 cm and has expected low level hypermetabolism (Max SUV 1.8). Mesentery/Peritoneum: No ascites or FDG avid mass. Vasculature: Vascular patency cannot be assessed due to lack of IV contrast. Atherosclerotic calcifications of the abdominal aorta and iliac vessels without aneurysm. Pelvis: Hysterectomy. No ascites, focal fluid collection, or hypermetabolic lesion. Abdominopelvic wall: Postsurgical changes along the ventral pelvic wall with expected low level hypermetabolism. BONES AND EXTREMITIES: No suspicious FDG avid osseous lesion. The imaged portions of the skeleton demonstrates age-related degenerative changes. No destructive osseous lesions. [facility] RADIOLOG[facility] Provider, [facility] - 02/06/2023 * * *Final Report* * * DATE OF EXAM: Feb 03 2023 1:40PM [facility] 0064 - NM PET/CT WHOLE BODY SUBQ / PROCEDURE REASON: multiple diagnoses * * * * Physician Interpretation * * * * RESULT: EXAMINATION: WHOLE BODY FDG PET/CT SCAN: HISTORY: High-grade serous carcinoma bilateral ovaries with CT scan demonstrating left upper lobe nodule, left hepatic lesion, left pelvic sidewall nodule and iliac lymphadenopathy.. INDICATION: Study performed for subsequent treatment strategy. TECHNIQUE: F18-FDG administered IV was followed about 60 minutes later by PET imaging from eyes to proximal thighs. Free breathing low dose CT was performed without contrast for attenuation correction and anatomic localization. FDG radionuclide dose: 8.[address] Dose-Length Product (DLP): 140 mGy*cm. CT Dose Reduction Employed: Yes COMPARISON: None CORRELATION: None RESULT: Pack Changer (topogram) images: No additional findings. - Mediastinum blood pool activity: Max SUV: 1.8 - Background liver activity: Max SUV: 2.4 HEAD AND NECK: Focal hypermetabolism along the right palatine tonsil (Max SUV 7.6) with associated soft tissue fullness. Physiologic uptake seen in the visualized brain, extraocular muscles, parapharyngeal soft tissues, base of tongue, vocal cords, and salivary glands. No FDG avid cervical lymphadenopathy or mass. No FDG avid thyroid lesion. CHEST: Right chest port terminates in the right atrium. Physiologic uptake in the heart and mediastinum. Lungs and tracheobronchial tree: -0.9 cm left apicoposterior groundglass/semisolid nodule without associated hypermetabolism (Max SUV 0.6). -Additional scattered smaller pulmonary nodules, for example a 4 mm nodule within the posterior right upper lobe, below the resolution of PET. -No hypermetabolic pulmonary lesions. -Emphysema. Note that PET/CT is not sensitive for pulmonary nodules less than 8 mm. Pleura: No FDG avid pleural effusion or pleural mass. Mediastinum and Lymph nodes: 0.9 cm right prevascular node with low level hypermetabolism (Max SUV 2.6), likely reactive. Heart and great vessels: Physiologic uptake in the heart. Chest wall and axilla: No FDG avid axillary lymphadenopathy. ABDOMEN AND PELVIS: Physiologic uptake seen in the and GI tracts. Liver: No FDG avid lesion. Low-attenuation lesion centered between the posterior aspect of the left hepatic lobe and the body of the pancreas, without associated hypermetabolism. Biliary: Gallbladder is unremarkable. Spleen: No FDG avid lesion. No splenomegaly. Pancreas: No FDG avid lesion. Adrenals: No FDG avid lesion. Kidneys: No stones, hydronephrosis, or FDG avid lesions. GI tract: No dilation or focal suspicious FDG avid lesion. Lymph nodes: No FDG avid abdominal or pelvic lymphadenopathy. Left external iliac/obturator node measures 0.7 cm and has expected low level hypermetabolism (Max SUV 1.8). Mesentery/Peritoneum: No ascites or FDG avid mass. Vasculature: Vascular patency cannot be assessed due to lack of IV contrast. Atherosclerotic calcifications of the abdominal aorta and iliac vessels without aneurysm. Pelvis: Hysterectomy. No ascites, focal fluid collection, or hypermetabolic lesion. Abdominopelvic wall: Postsurgical changes along the ventral pelvic wall with expected low level hypermetabolism. BONES AND EXTREMITIES: No suspicious FDG avid osseous lesion. The imaged portions of the skeleton demonstrates age-related degenerative changes. No destructive osseous lesions. IMPRESSION IMPRESSION: 1. NECK: * Asymmetric hypermetabolism along the right palatine tonsil, indeterminate. Recommend correlation with direct inspection. * Otherwise no FDG avid neoplastic process. 2. CHEST: * No FDG avid neoplastic process. * 9 mm left upper lobe groundglass/semisolid nodule is not FDG avid and likely represents a primary lung neoplasm along the adenocarcinoma spectrum. 3. ABDOMEN/PELVIS: * No FDG avid neoplastic process. 4. EXTREMITIES/SKELETON: * No suspicious FDG avid osseous lesion. ACTIONABLE RESULT: FOLLOW-UP Acuity: Actionable Findings: Digestive Tract Routing Code: GI_1 Recommendation: Unlisted Recommendation (see report) Time Frame: At the discretion of the clinical team. COMMUNICATION: Results will be communicated with the ordering provider via [employer] staff message or phone message by [facility] within 2 business days of report finalization. Algorithms for management of incidental imaging findings can be found on the [facility] Intranet Sharepoint site at: [email or web address] [email or web address] Transcribed Using Voice Recognition (more content not included)... [facility] NM PET/CT WHOLE BODY SUBQon 02-03-2023 NM PET/CT WHOLE BODY SUBQ * * *Final Report* * * DATE OF EXAM: Feb 03 2023 1:40PM N 0064 - NM PET/CT WHOLE BODY SUBQ / PROCEDURE REASON: multiple diagnoses * * * * Physician Interpretation * * * * RESULT: EXAMINATION: WHOLE BODY FDG PET/CT SCAN: HISTORY: High-grade serous carcinoma bilateral ovaries with CT scan demonstrating left upper lobe nodule, left hepatic lesion, left pelvic sidewall nodule and iliac lymphadenopathy.. INDICATION: Study performed for subsequent treatment strategy. TECHNIQUE: F18-FDG administered IV was followed about 60 minutes later by PET imaging from eyes to proximal thighs. Free breathing low dose CT was performed without contrast for attenuation correction and anatomic localization. FDG radionuclide dose: 8.[address] Dose-Length Product (DLP): 140 mGy*cm. CT Dose Reduction Employed: Yes COMPARISON: None CORRELATION: None RESULT: Pack Changer (topogram) images: No additional findings. - Mediastinum blood pool activity: Max SUV: 1.8 - Background liver activity: Max SUV: 2.4 HEAD AND NECK: Focal hypermetabolism along the right palatine tonsil (Max SUV 7.6) with associated soft tissue fullness. Physiologic uptake seen in the visualized brain, extraocular muscles, parapharyngeal soft tissues, base of tongue, vocal cords, and salivary glands. No FDG avid cervical lymphadenopathy or mass. No FDG avid thyroid lesion. CHEST: Right chest port terminates in the right atrium. Physiologic uptake in the heart and mediastinum. Lungs and tracheobronchial tree: -0.9 cm left apicoposterior groundglass/semisolid nodule without associated hypermetabolism (Max SUV 0.6). -Additional scattered smaller pulmonary nodules, for example a 4 mm nodule within the posterior right upper lobe, below the resolution of PET. -No hypermetabolic pulmonary lesions. -Emphysema. Note that PET/CT is not sensitive for pulmonary nodules less than 8 mm. Pleura: No FDG avid pleural effusion or pleural mass. Mediastinum and Lymph nodes: 0.9 cm right prevascular node with low level hypermetabolism (Max SUV 2.6), likely reactive. Heart and great vessels: Physiologic uptake in the heart. Chest wall and axilla: No FDG avid axillary lymphadenopathy. ABDOMEN AND PELVIS: Physiologic uptake seen in the and GI tracts. Liver: No FDG avid lesion. Low-attenuation lesion centered between the posterior aspect of the left hepatic lobe and the body of the pancreas, without associated hypermetabolism. Biliary: Gallbladder is unremarkable. Spleen: No FDG avid lesion. No splenomegaly. Pancreas: No FDG avid lesion. Adrenals: No FDG avid lesion. Kidneys: No stones, hydronephrosis, or FDG avid lesions. GI tract: No dilation or focal suspicious FDG avid lesion. Lymph nodes: No FDG avid abdominal or pelvic lymphadenopathy. Left external iliac/obturator node measures 0.7 cm and has expected low level hypermetabolism (Max SUV 1.8). Mesentery/Peritoneum: No ascites or FDG avid mass. Vasculature: Vascular patency cannot be assessed due to lack of IV contrast. Atherosclerotic calcifications of the abdominal aorta and iliac vessels without aneurysm. Pelvis: Hysterectomy. No ascites, focal fluid collection, or hypermetabolic lesion. Abdominopelvic wall: Postsurgical changes along the ventral pelvic wall with expected low level hypermetabolism. BONES AND EXTREMITIES: No suspicious FDG avid osseous lesion. The imaged portions of the skeleton demonstrates age-related degenerative changes. No destructive osseous lesions. IMPRESSION: 1. NECK: * Asymmetric hypermetabolism along the right palatine tonsil, indeterminate. Recommend correlation with direct inspection. * Otherwise no FDG avid neoplastic process. 2. CHEST: * No FDG avid neoplastic process. * 9 mm left upper lobe groundglass/semisolid nodule is not FDG avid and likely represents a primary lung neoplasm along the adenocarcinoma spectrum. 3. ABDOMEN/PELVIS: * No FDG avid neoplastic process. 4. EXTREMITIES/SKELETON: * No suspicious FDG avid osseous lesion. ACTIONABLE RESULT: FOLLOW-UP Acuity: Actionable Findings: Digestive Tract Routing Code: GI_1 Recommendation: Unlisted Recommendation (see report) Time Frame: At the discretion of the clinical team. COMMUNICATION: Results will be communicated with the ordering provider via [employer] staff message or phone message by Imaging Support Services within 2 business days of report finalization. Algorithms for management of incidental imaging findings can be found on the [facility] Intranet Sharepoint site at: [email or web address]/documen [email or web address]%20Findi ngs%20at%20Imaging/Forms/A llItems.[email or web address] Transcribed Using Voice Recognition Transcribe Date/Time: Feb 06 2023 12:56P Dictated by: JOSÉ MIGUEL PETERS MD This examination was interpreted and the report reviewed and electronically signed by: JOSÉ MIGUEL PETERS, (more content not included)... Invalid Interpretation Code [facility] PET+CT Whole body Bone W 18F -NaF Young 02-03-2023 Radiology Study observation (narrative) [facility] 01-16-2023 36 Daughter called and needed the kind of mediport placed. [employer] 6[employer]6 [employer] Injectable Low Profile Titanium Port. Normal [facility] 36 Records faxed to counts include 234 beds at the [facility] Normal [facility] 01-13-2023 36 Name of caller: Alexey coyle Contact phone number: [phone] Relationship to Patient: [facility] Provider: Dr. Newsome Practice: [facility] Chief Complaint/Reason for Call: For the purposes of Mondays appointment. Nora is requesting 2 last office visit notes. Monday01/16/23 appointment. Please fax over padma at fax [phone] Best time of day caller can be reached: AM Patient advised that office/PCP has 24-48 business hours to return their call: N/A [facility] 36 Name of caller: Melody weston Contact phone number: [phone] Relationship to Patient: [facility] Provider: addy hyatt Practice: oncology Chief Complaint/Reason for Call: marisol from [facility] needs the records for the patient. They state they have had this request in for a while now and havent heard back yet. The patient will be in office on monday so they need the records padma phone: [phone] fax: [phone] Please advise and thank you Best time of day caller can be reached: any Patient advised that office/PCP has 24-48 business hours to return their call: No [facility] 36on 01-02-2023 36 Left message for pat olamide ok for port flush in February. [facility] 36 Spoke to patient and she is aware no other maintenance is recommended for this patient. She will have labs on 03/14/23 in [place] and follow up with Sherlyn Davis CNP on 03/15/23@1130. She agrees with the plan and verbalizes understanding. Spoke to [facility] and notified them she wont be coming there until March 15. [facility] 36 Patient did not take her Zejula until Monday night. She did not take it Monday. She had the heart palpitations again, SOB and had some blurred vision also. She denies lightheadedness. She states she does not want to take it anymore due to the way she is making her feel. She would like to know what other options she has. [facility] 36 Patient called to rea conti new medication that was started and what happened over the weekend. [facility] 36on 12-30-2022 36 Called patient back in regards to patient states she had a few palpitations this morning after taking her Zejula pill. But symptoms have completely resolved and she is feeling good now. Patient did not have any symptoms of shortness of breath or lightheadedness. Informed patient if she would develop chest pain to go to the emergency room for evaluation. Patient states that she is feeling good now and will give us a call on Monday or through the weekend if she needs us. Patient verbalizes understanding [facility] 36 Patient states she f elt better being on the lower dose as far as pain in her abdomen. She states she is having palpitations at times this morning. They last for a few minutes and happen again. BP was 112/74 HR was 77 at work taken by the nurse. She denies CP, SOB. She states she is not anxious. She has been on the lower dose of Zejula for 2 days at 100mg daily. She takes it at night. Last dose last night. [facility] 36 Patient called in to discuss her new dose of medication. [facility] 36on 12-28-2022 36 Pt reports since sarah ing Zejula her vision is blurry in the mornings and she has mild lower back pain that goes to her lower abd. Pain is very tolerable. Pt would like to reduce Zejula for a few days to see if this helps. Pt will take Zejula 100mg daily x 2 days then call in Monday for update. Pt also would like a second opinion on maintenance therapy. Her daughter is looking into [facility] associate onc at and will call us back with recommendation and we can notify Dr. Hyatt and fax pt's medical record. .Pt verbalized understanding, no further questions. [place] [address]on 12-26-2022 36 Called patient back regarding restarting Zejula. Patient states she is doing well. Patient did follow-up with her lamp stack developer on Monday and got the okay to restart the Zejula. Patient is having lots of anxiety. Not interested in trying any antidepressants or antianxiety medication at this time. Patient states that she is doing daily exercise and walking which helps tremendously. Also encourage patient to try meditation, essential oils, reiki therapy. Patient interested in starting counseling, made a referral to Dr. Quiñones's office. Patient also states that she has counseling through her work which she can obtain. Patient does express that she is still having some incisional pain from her surgery. Patient states that heat does help. I encouraged patient to rotate Advil and Tylenol. Patient denies any fever, chills. Encouraged patient to give me a call back with any worsening symptoms. Encourage patient to give me a call back with any questions concerns. [facility] 36 Spoke to patient and she has not had any issues from the Zejula just very slight nausea this morning. She is still having pain at her incision sites around an 8 unless she takes gabapentin twice a day and does have some relief, pain goes to a 2 or 3. Heat does help. She states she is concerned about this as it is the same since her surgery. She denies constipation urinary tract issues. She is very anxious. She does not do well on anti-anxiety meds and is considering counseling. Will discuss with Sherlyn Davis CNP and call patient back. [facility] 36on 12-23-2022 36 Patient called to salma t us know her lamp stack developer cleared her to restart the Zejula. She wanted a call back tonight but I let her know staff was gone for evening and we'd kendal back to her Monday. She then stated she will restart this weekend and let us know how it goes. [facility] 36on 12-22-2022 36 Patient called to sa santacruz she is going to see her lamp stack developer at 4 pm on Monday12/23/2022 [facility] 36 Discussed With christiano up regarding symptoms she is experiencing after taking 1 dose of Zejula. Patient states she did experience diarrhea with loss of appetite and fatigue. She also had some mild chest pain that was intermittent. Patient did not go to the emergency room for evaluation. Patient states that her pulse ox has been running between 98 and 99%. She also states that she has had a heart attack in the past and follows with cardiology she has been monitoring her heart rate which has been slightly high and low. Patient states today that she is feeling better, with no chest pain. Has not taken any more Zejula. I instructed patient to hold off on Zejula until she sees her lamp stack developer for evaluation. I informed patient that if she experiences more chest pain and symptoms that she needs to go to the emergency room for evaluation. Patient has a call into cardiology and will get an appointment. Patient verbalizes understanding. Patient instructed to give us a call back at the end of the week or early next week to let us know how she is doing and following up with her lamp stack developer. [facility] 36 B/p is 128/78 ans pu lse is 83. [facility] 36 Spoke with pt and sh felipa did not go to the ER. Pt does not have any chest pain this morning. She is calling her cardiology office this am at 8am. Pt is going to get her blood pressure done this morning as well. Pulse is 127. Pt only took one dose of Zejula and did not take last night with what happened and not feeling well. Pt to call back with b/p. [facility] 36on 12-21-2022 36 S: pt calling [facility] wi th chest pain B: today A: mild chest pain, diarrhea X2 today (not liquid, just soft), just started taking chemo pill Zejula last night - 2 caps at bedtime. Chest pain is with deep breaths in, left side and a little below the armpit. Does not hurt with movement of arm. On and off. Mild pain just sitting breathing normal, 11/25. Hx heart attack in 2020, stent placed, saw cardiology last week, has not heard back from them about her new medication but did relay to them what she was going to be taking. Does not have BP cuff at home. Denies difficulty breathing at this time. Pain is sharp. Did have DVT during but was 30 years ago. Does not feelcomfortable taking the new medication tonight as she lives alone. Last IV chemo was 11/25. R: per Dr. Tsai; If she is having new chest pain she should present to the ED. Ok to not take the meds tonight, will relay to team tomorrow to follow up. RN relayed this information to pt, pt unsure if she will present to ER tonight and will hold medication tonight and will await further instructions from office tomorrow, pt states she will also have someone come to her house to sit with her tonight in case she needs help or a ride to ER. RN did reiterate that, given her history, it would be safer to be evaluated for the chest pain tonight. Reason for Disposition History of prior blood clot in leg or lungs (i.e., deep vein thrombosis, pulmonary embolism) Protocols used: Chest [id number] [facility] 36on 12-19-2022 36 Spoke with patient a nd reviewed calendar of appointments. Calendar and lab reqs faxed to [facility] @ [phone] with fax confirmation. Patient agrees with the plan and verbalizes understanding. [facility] 36 Spoke to patient and she will be starting her Zejula tomorrow. Will schedule labs at [facility] and mail her a copy. [facility] 36on 12-14-2022 36 Called pt back and l eft message to call office back. Normal [facility] 36 Called patient and answered questions regarding post op. Is having some sensitive area over incisional areas. Encouraged patient this can happen after surgery. Patient verbalizes understanding. Normal [facility] 36 Patient would like t o talk to a nurse. [facility] Progress Noteon 12-13-2022 Progress Note Specialty Pharmacy N ahmet MCCABE is a 57 year old Female who was referred to [facility] for clinical management services for Zejula 100 MG. Diagnosis Malignant neoplasm of bilateral ovaries C56.3 ASSESSMENT / PLAN Zejula 100 MG Expectations and Goals of therapy Counseled patient that goals of therapy include control of gynecological malignancies and symptom management. Disease state education Counseled on general disease state management strategies. Emphasized the importance of consistent adherence to prescribed medication in order to achieve treatment goals. Administration Patient will start niraparib (Zejula) by mouth once daily. Patient understands the medicine can be taken with or without food, but at the same time each day. Taking at bedtime is encouraged to reduce risk of nausea and/or vomiting. No barriers to care noted. Pt will be starting niraparib 200mg once daily Storage/Disposal Store at 20?C to 25?C (68?F to 77?F). Store in a dry place. Keep medications in a safe place, out of reach of children and pets. Side effects Side effects reviewed: Anemia, nausea and/or vomiting -- anti-emetic therapy was discussed, fatigue, infection, impaired immune system, constipation, abdominal pain, sores in mouth, skin rash. Supportive care meds addressed. Serious side effects discussed include bleeding and hepatoxicity. Contact Advised patient to contact pharmacy or provider with any concerns regarding side effects, questions regarding therapy, or any other situation where clinical oversight is necessary. Provided patient with direct number to clinical pharmacist for questions or concerns prior to scheduled follow up. The patient was oriented to the pharmacy?s services upon initial fillpro Encouraged patient to participate in this plan of care by speaking with a pharmacist which is offered during each reassessment. Adherence Advised patient of the importance of taking this medication as prescribed and to avoid missing any doses. Patient understands if they miss a dose to not take an extra dose or two doses at one time. Simply take the next dose at the regularly scheduled time and write down that they missed a dose. Monitoring and follow up Reviewed therapy monitoring parameters and importance to maintain follow-up lab and provider visits. Labs to be monitored for side effects routinely: CBC with diff weekly for the first month, then monthly for 11 months; BP & HR monthly, CA-125 at clinician discretion. Drug Interactions Patient therapy reviewed for appropriateness. Patient's most recent labs reviewed. Home medication list confirmed and reviewed for drug interactions. Drug-food interactions discussed with patient if applicable. Medication list updated in [facility] Drug interactions with oral chemotherapy identified: no interactions identified with niraparib Pharmacy Recommendations/Education/ Other Patient filling at [facility]. [facility] to follow and ensure patient receives medication. Patient aware to obtain labs weekly. Plan to follow up 2 weeks after starting Supportive care medications reviewed: stool softener, antiemetics Barriers to communication/level of understanding identified: none Patient's medication will be filled at:[facility] Christina Bennett, PharmD, BCACP, CSP [facility] [phone] [facility] 36on 12-12-2022 36 Spoke to patient ans she is aware that when she comes to her follow up today at 1130 Dr. Hyatt will discuss maintenance and future appointments. She agrees the plan and verbalizes understanding. [facility] 36 Pt called in stating that she her appt was canceled. She was scheduled for a cycle 6 carbo/ taxol appt. She needed this appt with Dr. Hyatt to discuss the future plan. Pt goes to [facility] for blood work. She need orders that do not specify quest. 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 None Family History Problem Relation Age of Onset Thyroid disease Sister Colon cancer Sister Thyroid disease Sister Heart disease Father Hypertension Father Thyroid disease Sister Thyroid disease Mother Lung cancer Maternal Grandfather Heart disease Maternal Grandfather Ovarian cancer Maternal Grandmother Family Status - Relation Status Age at Sister Alive Sister Alive Father Sister Mother Maternal Grandfather Maternal Grandmother Level of Service:67327 UT OFFICE/OUTPATIENT ESTABLISHED MOD [facility] 30-39 MIN Reason for Visit and Comments: Ovarian Cancer [[id number]] Normal [facility] Progress Noteon 12-12-2022 Progress Note Spoke to patient reg justice starting the medication Zejula. Reviewed side effects not limited to: nausea, vomiting,low blood counts, constipation, rash ect. Written information provided. Consent obtained.Questions answered. Will call patient after medication approved with schedule. Normal [facility] Progress Note CC: here for adjuvan t chemotherapy for stage III high-grade ovarian carcinoma for course # 6 of adjuvant carboplatinum and Taxol PD-L1 negative HRD negative BRCA negative HPI: Evelyn Mccabe is a 57 y.o. with a stage III ovarian carcinoma cancer here for Chemotherapy. Patient underwent laparoscopy in June 2022 with the finding of diffuse carcinomatosis. She was subsequently started on neoadjuvant chemotherapy. Patient underwent interval debulking on September 28. Patient underwent complete gross tumor debulking. Patient finished chemotherapy in November 2021. He is here today to discuss maintenance therapy. Patient's CA125 level is 32.1. Past Medical History: Diagnosis Date Acute bronchiolitis Acute ST elevation myocardial infarction (CMS/HCC) (HCC) Cancer (CMS/HCC) (HCC) H/O heart artery stent Hx of blood clots when Ovarian cancer (HCC) Past Surgical History: Procedure Laterality Date CORONARY STENT PLACEMENT N/A ELBOW SURGERY FLEXIBLE SIGMOIDOSCOPY 07/08/2022 dr hernandez IR [facility] MEDIPORT PLACEMENT 09/29/2022 IR [facility] MEDIPORT PLACEMENT 09/29/2022 Syed Jerome MD [facility] SPECIAL PROCEDURES LAPAROSCOPY DIAGNOSTIC / BIOPSY / ASPIRATION / LYSIS 06/28/2022 Diagnostic lap, peritoneal biopsies TUBAL LIGATION Social History Socioeconomic History Marital status: Tobacco Use Smoking status: Former Packs/day: 0.25 Years: 30.00 Pack years: 7.50 Types: Cigarettes Quit date: 06/23/2022 Years since quittin.4 Smokeless tobacco: Never Tobacco comments: Nicotine Vaping Use Vaping Use: Some days Start date: 08/22/2022 Substances: Nicotine Devices: Disposable Substance and Sexual Activity Alcohol use: Never Drug use: Never Social Determinants of Health Intimate Partner Violence: Not At Risk Fear of Current or Ex-Partner: No Emotionally Abused: No Physically Abused: No Sexually Abused: No Current Outpatient Medications Medication Sig Dispense Refill acetaminophen (Tylenol) 500 MG tablet TAKE 2 TABLETS BY MOUTH EVERY 6 HOURS NEEDED FOR PAIN 120 tablet 0 apixaban (Eliquis) 2.5 MG tablet Take 1 tablet (2.5 mg) by mouth 2 times daily for 28 days. 56 tablet 0 aspirin 81 MG EC tablet Take 81 mg by mouth daily. At HS cholecalciferol (Vitamin D-3) 50 MCG (2000 UT) capsule Take 2,000 Units by mouth in the morning. dexAMETHasone (Decadron) 4 MG tablet Take 5 tablets 12 hours and 6 hours prior to chemotherapy. 10 tablet 0 dexAMETHasone (Decadron) 4 MG tablet Take 5 tablets 6 hours and 12 hours before each chemo treatment. 10 tablet 1 docusate sodium (Colace) 100 MG capsule TAKE 2 CAPSULES BY MOUTH 2 TIMES DAILY 120 capsule 0 docusate sodium (Colace) 100 MG capsule TAKE 1 CAPSULE BY MOUTH 2 TIMES DAILY 60 capsule 0 ezetimibe (Zetia) 10 MG tablet Take 10 mg by mouth in the morning. gabapentin (Neurontin) 300 MG capsule Take 1 capsule (300 mg) by mouth in the morning and 1 capsule (300 mg) at noon and 1 capsule (300 mg) before bedtime. 90 capsule 5 magnesium hydroxide (Milk of Magnesia) 800 MG/5ML suspension Take by mouth Daily as needed for constipation. ondansetron (Zofran) 8 MG tablet Take by mouth. oxyCODONE (Roxicodone) 5 MG immediate release tablet TAKE 1 TABLET BY MOUTH EVERY 6 HOURS NEEDED FOR PAIN FOR UP TO 3 DAYS. TAKE LOWEST DOSE POSSIBLE TO MANAGE PAIN 12 tablet 0 polyethylene glycol, PEG, 3350 (Glycolax) 17 GM/SCOOP powder TAKE 17 G BY MOUTH DAILY 1530 g 1 polyethylene glycol, PEG, 3350 (Miralax) 17 g packet Take by mouth. prochlorperazine (Compazine) 10 MG tablet Take by mouth. senna-docusate (Brianna-Colace) 8.6-50 MG tablet Take 1 tablet by mouth in the morning and 1 tablet in the evening. No current facility-administered medications for this visit. Review of Systems Atorvastatin, Trimethoprim, Metoprolol, and Sulfamethoxazole BP 126/84 Pulse 77 Ht 1.702 m (5' 7 ) Wt 51.7 kg (114 lb) BMI 17.85 kg/m? Physical Exam Nursing note reviewed. Constitutional: Appearance: Normal appearance. Neurological: Mental Status: She is alert. Psychiatric: Mood and Affect: Mood normal. Behavior: Behavior normal. Assessment: High-grade serous carcinoma of the ovary, currently in remission after 6 courses of chemotherapy and interval debulking Plan: Counseled the patient and her daughter today as far as treatment options. This would include going on a PARP inhibitor, Avastin or observation only. We discussed the fact that she is HRD and BRCA negative. We discussed that there was still an advantage to going on a PARP inhibitor. I did career technical counselor the patient as to the most common side effects of PARP inhibitors. We also discussed some of the more common signs and symptoms of recurrent cancer. The patient would like to start Zejula, will start at the medium dose, will watch CBC weekly for 1 month and then monthly thereafter. Discussed staying on the Zejula until evidence of diseas (more content not included)... [facility] 36on 11-30-2022 36 Spoke with pt and in formed her of vitamin B 12 complex-600 mg daily-over the counter. Pt verbalized understanding. [place] [id number] Please call patient and let her know what Vitamin B you would like her to use (talked to Mohinder at her last visit). Patient was at the pharmacy. She will go back after she talks with someone. [facility] 36on 11-28-2022 36 Patient verbalized understanding of CA125 results. Patient reports she is willing to try PARP inhibitor if that is what Dr. Hyatt recommends for next step in her care. Patient verbalized understanding, no further questions. [place] [id number] ----- Message from Geraldine Hyatt MD sent at 11/28/2022 8:10 AM EST ----- Please call with CA125 level. Has patient made a decision about maintenance PARP therapy? 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 None Family History Problem Relation Age of Onset Thyroid disease Sister Colon cancer Sister Thyroid disease Sister Heart disease Father Hypertension Father Thyroid disease Sister Thyroid disease Mother Lung cancer Maternal Grandfather Heart disease Maternal Grandfather Ovarian cancer Maternal Grandmother Family Status - Relation Status Age at Sister Alive Sister Alive Father Sister Mother Maternal Grandfather Maternal Grandmother Level of Service:84734 UT OFFICE/OUTPATIENT ESTABLISHED LOW [facility] 20-29 MIN Reason for Visit and Comments: Chemotherapy [305] Follow-up [[id number]] [facility] Progress Noteon 11-25-2022 Progress Note Visited with Evelyn in the infusion center around 10:20am for her last cycle of carbo/taxol. She stated that she is doing well. She stated that she tolerated the reduced dose of treatment a little better this last time around, definitely had less pain. She stated that she did go back to work, although it was tough the first week. She stated that she has had a good appetite and is so happy to report that she has gained 7 pounds. She stated that she has really learned how to listen to her body and knows which interventions to use and when. She stated that two of her grandkids have doctor's appointments today. Provided support and encouragement. She stated that she has an appointment with Dr. Hyatt on 12/09 @ 9:15am to discuss her treatment plan going forward. She had no needs, questions, or concerns at this time. Encouraged her to call me or the office should that change or should she experience any new or worsening symptoms. She verbalized understanding. [facility] Progress Note Follow up visit in infusion. Pt up 5.8# in the last 3 wks. Pt reports a good appetite and her bowels are moving. Pt eating small, frequent meals and uses Ensure Plus to supplement her diet prn. Pt's goal wt is 115-120#. Pt is completing her chemo today. Provided pt with sample supplements with coupons and my contact information. This RD continues to be available as needed. Wendy Nam RD, LD [facility] Progress Note CC: here for neoadju vant chemotherapy for stage III high-grade ovarian carcinoma for course # 6 of neoadjuvant carboplatinum and Taxol PD-L1 negative HRD negative BRCA negative HPI: Evelyn Mccabe is a 57 y.o. with a stage III ovarian carcinoma cancer here for Chemotherapy. Patient underwent laparoscopy in June 2022 with the finding of diffuse carcinomatosis. She was subsequently started on neoadjuvant chemotherapy. Interval debulking on 09/28/22 Postop appointment, status post interval debulking. A. Soft tissue, anterior peritoneum, excision: - Fibroadipose tissue with focal dense fibrosis and rare infiltrating high-grade carcinoma. B. Omentum, excision: - Residual invasive high-grade adenocarcinoma and therapy-related changes present. Comment: The majority of tumor in all the specimens (A - E) has the appearance of high-grade serous carcinoma. Focal areas of tumor in parts B and D show clear cells features. However, by immunohistochemistry, these cells are negative for napsin-A, making clear cell carcinoma less likely. WT-1 is also negative. C. Uterus, cervix, bilateral fallopian tubes and ovaries, hysterectomy with bilateral salpingo-oophorectomy: - Residual high-grade carcinoma involving bilateral ovaries and fallopian tubes. - Uterus with inactive endometrium, and unremarkable myometrium and cervix. D. Small bowel nodule, excision: - High-grade carcinoma and therapy-related changes including fibrinous necrosis. E. Appendix, appendectomy: - Rare infiltrating carcinoma involving the mesoappendix. - Unremarkable tubular appendix. Interval History She denies any grade 3 or 4 toxicities. She is tolerating chemotherapy well. She does not have: Anorexia, Fever, Chills, Sweats, Weight Loss, Nausea, Diarrhea, Weakness, Fatigue, Pain, Arthralgias, Edema, Dizziness, SOB. Denies abdominal pain, abdominal distention, vaginal bleeding or discharge. Denies Anxiety and Depression. Peripheral neuropathy-mild and tolerable in hands, will take gabapentin 300mg BID. Stopped smoking, vapes only on occasion, only with stressful situations. Patient reports myalgia occasionally in knees, does not seem to be associated with chemotherapy treatments, will continue to monitor. Patient has occasional constipation, has improved since surgery and tolerable, patient takes stool softener as needed. Patient reports overall she feels great, has positive attitude. Has arin Has 5 children, 10 grandchildren three grandchildren are triplets-at the top of their class, high school. Works at [employer]. in 2019. Pt had heart attack in 2020. Took doctors many months to diagnose ovarian cancer-thought it was GI issues. Past Medical History: Diagnosis Date Acute bronchiolitis Acute ST elevation myocardial infarction (CMS/HCC) (HCC) Cancer (CMS/HCC) (HCC) H/O heart artery stent Hx of blood clots when Ovarian cancer (HCC) Social History Socioeconomic History Marital status: Tobacco Use Smoking status: Former Packs/day: 0.25 Years: 30.00 Pack years: 7.50 Types: Cigarettes Quit date: 06/23/2022 Years since quittin.4 Smokeless tobacco: Never Tobacco comments: Nicotine Vaping Use Vaping Use: Some days Start date: 08/22/2022 Substances: Nicotine Devices: Disposable Substance and Sexual Activity Alcohol use: Never Drug use: Never Social Determinants of Health Intimate Partner Violence: Not At Risk Fear of Current or Ex-Partner: No Emotionally Abused: No Physically Abused: No Sexually Abused: No Past Surgical History: Procedure Laterality Date CORONARY STENT PLACEMENT N/A ELBOW SURGERY FLEXIBLE SIGMOIDOSCOPY 07/08/2022 dr hernandez IR CVC MEDIPORT PLACEMENT 09/29/2022 IR CVC MEDIPORT PLACEMENT 09/29/2022 Syed Jerome MD [facility] PROCEDURES LAPAROSCOPY DIAGNOSTIC / BIOPSY / ASPIRATION / LYSIS 06/28/2022 Diagnostic lap, peritoneal biopsies TUBAL LIGATION Atorvastatin, Trimethoprim, Metoprolol, and Sulfamethoxazole Current Outpatient Medications Medication Sig Dispense Refill acetaminophen (Tylenol) 500 MG tablet TAKE 2 TABLETS BY MOUTH EVERY 6 HOURS NEEDED FOR PAIN 120 tablet 0 aspirin 81 MG EC tablet Take 81 mg by mouth daily. At HS cholecalciferol (Vitamin D-3) 50 MCG (2000 UT) capsule Take 2,000 Units by mouth in the morning. dexAMETHasone (Decadron) 4 MG tablet Take 5 tablets 12 hours and 6 hours prior to chemotherapy. 10 tablet 0 dexAMETHasone (Decadron) 4 MG tablet Take 5 tablets 6 hours and 12 hours before each chemo treatment. 10 tablet 1 docusate sodium (Colace) 100 MG capsule TAKE 2 CAPSULES BY MOUTH 2 TIMES DAILY 120 capsule 0 docusate sodium (Colace) 100 MG capsule TAKE 1 CAPSULE BY MOUTH 2 TIMES DAILY 60 capsule 0 ezetimibe (Zetia) 10 MG tablet Take 10 mg by mouth in the morning. gabapentin (Neurontin) 300 MG capsule Take 1 capsule (300 (more content not included)... [facility] 36on 11-24-2022 36 Called pt and let he r know labs are good for tomorrows chemotherapy. Pt verbalized understanding. [facility] 36on 11-07-2022 36 Faxed labs to pam at [phone]. [facility] 36on 11-04-2022 36 Called pt and left V M for her to call back. Need name of person she spoke to in regards to her going there for lab draws and appointments. [facility] 36 Called [facility] to fax over labs, CMP, CBC and CA 125. Faxed to [phone] [facility] Progress Noteon 11-04-2022 Progress Note Visited with Evelyn in the infusion center. Her son, Don, is with her today. Evelyn stated that she is doing well. She is continuing to recover from surgery. She did have her port placed and was thankful that it was easily accessed and used today. She stated that she is still waiting on her CA 125 result. She is thankful that she is receiving a reduced dose of chemo today, hoping that she won't be so miserable after this treatment. She stated that she feels good, has had a good appetite, and she is going back to work next week. 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 She stated that their [place] did not go as planned due to family members dealing with illnesses, but they made the best of it. She stated that she feels prepared for any side effects she may encounter after today's treatment, whether it is pain, nausea or constipation. Provided support and encouragement. She understands to call the office though if she has any questions or if she experiences something she is not able to manage. She had no needs, questions, or concerns at this time. Encouraged her to call me or the office should that change or should she experience any new or worsening symptoms. She verbalized understanding. [facility] Progress Note Pt arrived ambulator y for cycle 5 delayed Taxol and carboplatin infusion today following surgery where she had a total hysterectomy and port placed. Pt reports the surgical incisions have all healed. Plan of care discussed. Port accessed without difficulty. No labs needed today. Cbc and cmp drawn 11/03/21 and ok to use for treatment. Pt aware of her next appointment. 1517 pt tolerated treatment well. Pt discharged to home ambulatory. [place] [id number] 11-03-2022 36 Called pt and let he r know eating a yogurt is ok. Pt had mediport placed. Sent in emla cream. Printed out labs for pt to have in [facility] infusion. Port orders placed. [facility] 36 Pt went for her CA12 5 draw today. Normally she doesn't eat before she goes. Today she had a yogurt. She would like to know if this is going to mess anything up. [facility] 36on 10-31-2022 36 Patient has a call i nto her lamp stack developer as her last day of eliquis is tomorrow and she wanted to know if she should restart the Plavix. They will call her back regarding this. Will call in an rx for the decadron prrep for her next two cycles of chemo. She agrees with the plan and verbalizes understanding. [place] [id number] 10-14-2022 36 Error. This encounter was created in error - please disregard. [place] [id number] 10-12-2022 36 Spoke to patient dang rendon changing her office visits. She does not need to be seen before cycle 5 unless she is having issues. She will see the HEALTH TECH for Cycle [address] Hyatt 2 weeks after Cycle 6 is completed. She agrees with the plan and verbalizes understanding. 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 None Family History Problem Relation Age of Onset Thyroid disease Sister Colon cancer Sister Thyroid disease Sister Heart disease Father Hypertension Father Thyroid disease Sister Thyroid disease Mother Lung cancer Maternal Grandfather Heart disease Maternal Grandfather Ovarian cancer Maternal Grandmother Family Status - Relation Status Age at Sister Alive Sister Alive Father Sister Mother Maternal Grandfather Maternal Grandmother Level of Service:78150 UT POSTOP FOLLOW UP VISIT RELATED TO ORIGINAL PX Reason for Visit and Comments: Pre-op Visit [558] [facility] Progress Noteon 10-12-2022 Progress Note Postop appointment, status post interval debulking. A. Soft tissue, anterior peritoneum, excision: - Fibroadipose tissue with focal dense fibrosis and rare infiltrating high-grade carcinoma. B. Omentum, excision: - Residual invasive high-grade adenocarcinoma and therapy-related changes present. Comment: The majority of tumor in all the specimens (A - E) has the appearance of high-grade serous carcinoma. Focal areas of tumor in parts B and D show clear cells features. However, by immunohistochemistry, these cells are negative for napsin-A, making clear cell carcinoma less likely. WT-1 is also negative. C. Uterus, cervix, bilateral fallopian tubes and ovaries, hysterectomy with bilateral salpingo-oophorectomy: - Residual high-grade carcinoma involving bilateral ovaries and fallopian tubes. - Uterus with inactive endometrium, and unremarkable myometrium and cervix. D. Small bowel nodule, excision: - High-grade carcinoma and therapy-related changes including fibrinous necrosis. E. Appendix, appendectomy: - Rare infiltrating carcinoma involving the mesoappendix. - Unremarkable tubular appendix. Abdominal incision is healing nicely. Status post interval debulking. Will resume chemotherapy with carboplatinum and Taxol. Normal [facility] CARECOORDon 10-03-2022 CARECOORD Plan is discharge ho me today. I called patient in room. Introduced self and role. Patient has no discharge concerns at this time. [facility] CAREPLNon 10-03-2022 CAREPLN Problem: Pain - Adul t Goal: Verbalizes/displays adequate comfort level or baseline comfort level Outcome: Progressing Problem: Safety - Adult Goal: Free from fall injury Outcome: Progressing The patient is Moderately Stable - Low risk of patient condition declining or worsening The patient's goals for the shift include Patient will have a BM today The clinical goals for the shift include Patient will have a BM today Over the shift, the patient did not make progress toward the following goals. Barriers to progression include no bowel movement. Recommendations to address these barriers include prn medications administered, encouraged fluid intake and movement to alleviate gas pain and constipation. Normal [facility] Progress Noteon 10-03-2022 Progress Note ------ -- Attestation signed by Addy Hyatt MD at 10/03/2022 7:03 AM Patient rounded with residents. Doing well. Incisions are clean and dry. Discussed pathology report. Has had a bowel movement. Hopefully discharge to home later today. 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 female POD # 5 s/p WILI, Omentectomy, Debulking, Appendectomy. Patient seen and examined. She states she feels better this AM because she had a fairly large bowel movement. However, states she knows she has more to come out. She is also now going to be going home to [place] instead of staying with her daughter in [place] so she wants to make sure that she is continuing to have bowel movements prior to going home. Pain is controlled. Patient is tolerating oral intake but reports minimal intake yesterday due to feeling full. She is urinating. She is ambulating without difficulty. She is passing flatus. She denies Fever/Chills, Chest Pain, SOB, N/V. Vitals: Vitals: 10/02/22 0613 10/02/22 0834 10/02/22 1820 10/03/22 0541 BP: 124/70 111/70 125/72 99/68 BP Location: Right arm Left arm Right arm Patient Position: Sitting Sitting Sitting Sitting Pulse: 64 [phone] 73 69 Resp: Temp: 36.3 ?C (97.3 ?F) 36.1 ?C (97 ?F) 36.3 ?C (97.3 ?F) 36.3 ?C (97.4 ?F) TempSrc: Temporal Temporal Temporal Temporal SpO2: 98% 97% 97% 98% Weight: Height: Physical Exam: Gen: NAD, alert and cooperative HEENT: Normocephalic, atraumatic, EOMI, MMM Resp: no increased work of breathing Abd: soft, NT, no rebound, no guarding. Normoactive BSx4. Moderately distended Incisions: vertical midline C/D/I with steri strips in place Ext: No LE edema, no calf tenderness or swelling Medications: Current Facility-Administered Medications: acetaminophen (Tylenol) tablet 1,000 mg, 1,000 mg, Oral, q6h, Magalys C Lamari, DO, 1,000 mg at 10/02/222004 aspirin EC tablet 81 mg, 81 mg, Oral, Daily, Magalys C Lamari, DO, 81 mg at 10/02/22 09 bisacodyl (Dulcolax) EC tablet 5 mg, 5 mg, Oral, Daily PRN, Magalys C Lamari, DO, 5 mg at 10/02/222138 docusate sodium (Colace) capsule 100 mg, 100 mg, Oral, BID, Magalys C Lamari, DO, 100 mg at 10/02/222005 enoxaparin (Lovenox) syringe 40 mg, 40 mg, SubCUTAneous, Daily, Magalys C Lamari, DO gabapentin (Neurontin) capsule 400 mg, 400 mg, Oral, TID, Magalys C Lamari, DO, 400 mg at 10/02/222004 ibuprofen tablet 600 mg, 600 mg, Oral, q6h, Magalys C Lamari, DO, 600 mg at 10/02/222004 magnesium hydroxide (Milk of Magnesia) 400 MG/5ML suspension 30 mL, 30 mL, Oral, BID PRN, Myron Puckett MD, 30 mL at 10/02/22 1318 ondansetron ODT (Zofran-ODT) disintegrating tablet 4 mg, 4 mg, Oral, q8h PRN, 4 mg at 09/29/22 0540 OR ondansetron (Zofran) injection 4 mg, 4 mg, IntraVENous, q6h PRN, Magalys C Lamari, DO polyethylene glycol (PEG) 3350 (Miralax) packet 17 g, 17 g, Oral, BID PRN, Shae Moschella, DO, 17 g at 10/02/222004 prochlorperazine (Compazine) tablet 5 mg, 5 mg, Oral, q6h PRN, Magalys C Lamari, DO sennosides (Senokot) tablet 8.6 mg, 1 tablet, Oral, BID, Myron Puckett MD, 8.6 mg at 10/02/222005 simethicone (Mylicon) chewable tablet 80 mg, 80 mg, Oral, BID, Magalys C Lamari, DO, 80 mg at 10/02/222005 simethicone (Mylicon) chewable tablet 80 mg, 80 mg, Oral, PRN, Myron Puckett MD sodium chloride 0.9 % infusion, 5-250 mL/hr, IntraVENous, PRN, Magalys C Lamari, DO sodium chloride 0.9% (NS) flush 10 mL, 10 mL, IntraVENous, 2 times per day, Magalys C Lamari, DO, 10 mL at 09/30/222037 sodium chloride 0.9% (NS) flush 10 mL, 10 mL, IntraVENous, PRN, Magalys C Lamari, DO traMADol (Ultram) tablet 50 mg, 50 mg, Oral, q4h PRN, Magalys C Lamari, DO, 50 mg at 09/30/22 0938 Diagnostics: IR CVC mediport placement Result Date: 09/29/2022 Patient Name: EVELYN MCCABE Exam Date/Time: 09/29/2022 16:28 Procedure: IR CVC MEDIPORT PLACEMENT Ordering Provider: YHATT STEPHEN Reason For Exam: EXAMINATION: Chest port insertion. EXAM DATE & TIME: 09/29/2022 4:28 PM EST INDICATION: OVARIAN CARCINOMA ADDITIONAL INFORMATION: 57-year-old female with ovarian carcinoma presents for chest port insertion COMPARISON: None INFORMED CONSENT: Written informed consent was obtained. The procedure, risks, benefits, and alternatives were discussed. All questions were answered. TIMEOUT: Physician-led timeout was conducted documenting correct patient, procedure, site, fire risk, antibiotics and allergies. COMPLICATIONS: None. ESTIMATED BLOOD LOSS: Less than 10 mL. MEDICATIONS: Antibiotics: 1000 mg of intravenous cefazolin were administered prior to procedure start. Contrast dose: None. IMPLA (more content not included)... [facility] Progress Noteon 10-02-2022 Progress Note Patient evaluated at bedside. She states that she had significant abdominal pain earlier today but when she lied down in bed on her left side she passed a lot of gas. She says she has passed more gas today than during her entire hospital stay Vitals: 10/02/22 0834 BP: 111/70 Pulse: 62 Resp: 16 Temp: 36.1 ?C (97 ?F) SpO2: 97% Gen- AOx3, NAD Lungs- No increased work of breathing Abd- soft, NT, moderately distended, no r/g, Incision- vertical midline C/D/I Ext- no edema or tenderness A/P: - Continue supportive care - Patient declining discharge at this time unless she has a larger bowel movement tonight - Anticipate discharge tomorrow [facility] Progress Note ------ -- Attestation signed by Myron Puckett MD at 10/02/2022 9:20 AM I saw and evaluated the patient, participating in the betanc[place] portions of the service. I reviewed the resident?s note. I agree with the resident?s findings and plan. The patient's biggest complaint this morning is her inability to have a bowel movement. She denies nausea or vomiting. She has had some flatus although limited in amount. She does feel bloated and distended. On examination, afebrile, vital signs stable. The abdomen is moderately distended and tympanic. No rebound or guarding, nonacute. History and physical exam are most consistent with postoperative constipation. No evidence of ileus at this point in time. The patient reports that normally taking milk of mag 30 mL followed 4 hours later with an additional 30 mL if no bowel movement is sufficient in producing a bowel movement for her. I will order this as described above. Additionally, the patient normally takes Senokot twice daily and she has not been on this. We will restart this and continue Colace. Added simethicone as needed for abdominal discomfort. Other supportive measures reviewed. Continue to follow closely for signs of ileus. Continue plan of care as outlined in resident's note. 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 female, POD #4 s/p WILI, Omentectomy, Debulking, Appendectomy Patient seen and examined, resting comfortably in bed this AM. She states that she feels about the same this morning. She did try an enema yesterday and had a very small bowel movement and then did pass some flatus overnight but still feels very bloated. Patient says her postop pain is controlled and that her stomach only hurts from cramping and bloating from constipation. She did not eat much yesterday because she didn't like the soup and feels full but denies any nausea or vomiting. She denies Fever/Chills, Chest Pain, SOB, N/V. Vitals: Vitals: 10/01/22 1035 10/01/22 1501 10/01/22 1740 10/01/22 1833 BP: 111/74 108/73 106/64 107/72 BP Location: Left arm Left arm Right arm Patient Position: Sitting Sitting Lying Pulse: 74 75 66 65 Resp: Temp: 36.1 ?C (97 ?F) 36.1 ?C (97 ?F) 36.3 ?C (97.3 ?F) 36.2 ?C (97.1 ?F) TempSrc: Temporal Temporal Temporal Temporal SpO2: 98% 98% 97% 98% Weight: Height: Physical Exam: Gen: NAD, alert and cooperative HEENT: Normocephalic, atraumatic, EOMI, MMM Resp: No respiratory distress Abd: soft, moderately distended, appropriately tender, no rebound, no guarding. active BS Incisions: vertical midline incision C/D/I with steri strips in place Ext: No LE edema, no calf tenderness or swelling Medications: Current Facility-Administered Medications: acetaminophen (Tylenol) tablet 1,000 mg, 1,000 mg, Oral, q6h, Magalys C Lamari, DO, 1,000 mg at 10/02/22 0012 aspirin EC tablet 81 mg, 81 mg, Oral, Daily, Magalys C Lamari, DO, 81 mg at 10/01/22 0905 bisacodyl (Dulcolax) EC tablet 5 mg, 5 mg, Oral, Daily PRN, Magalys C Lamari, DO docusate sodium (Colace) capsule 100 mg, 100 mg, Oral, BID, Magalys C Lamari, DO, 100 mg at 10/01/22 222 enoxaparin (Lovenox) syringe 40 mg, 40 mg, SubCUTAneous, Daily, Magalys C Lamari, DO gabapentin (Neurontin) capsule 400 mg, 400 mg, Oral, TID, Magalys C Lamari, DO, 400 mg at 10/01/22 222 ibuprofen tablet 600 mg, 600 mg, Oral, q6h, Magalys C Lamari, DO, 600 mg at 10/02/22 0607 magnesium hydroxide (Milk of Magnesia) 400 MG/5ML suspension 30 mL, 30 mL, Oral, BID PRN, Magalys C Lamari, DO, 30 mL at 09/30/22 1433 ondansetron ODT (Zofran-ODT) disintegrating tablet 4 mg, 4 mg, Oral, q8h PRN, 4 mg at 09/29/22 0540 OR ondansetron (Zofran) injection 4 mg, 4 mg, IntraVENous, q6h PRN, Magalys C Lamari, DO polyethylene glycol (PEG) 3350 (Miralax) packet 17 g, 17 g, Oral, BID PRN, Shae Moschella, DO, 17 g at 10/01/22 1741 prochlorperazine (Compazine) tablet 5 mg, 5 mg, Oral, q6h PRN, Magalys C Lamari, DO simethicone (Mylicon) chewable tablet 80 mg, 80 mg, Oral, BID, Magalys C Lamari, DO, 80 mg at 10/01/22 2224 sodium chloride 0.9 % infusion, 5-250 mL/hr, IntraVENous, PRN, Magalys C Lamari, DO sodium chloride 0.9% (NS) flush 10 mL, 10 mL, IntraVENous, 2 times per day, Magalys C Lamari, DO, 10 mL at 09/30/22 2038 sodium chloride 0.9% (NS) flush 10 mL, 10 mL, IntraVENous, PRN, Magalys C Lamari, DO traMADol (Ultram) tablet 50 mg, 50 mg, Oral, q4h PRN, Magalys C Lamari, DO, 50 mg at 09/30/22 0938 Diagnostics: IR CVC mediport placement Result Date: 09/29/2022 Patient Name: EVELYN MCCABE Exam Date/Time: 09/29/2022 16:28 Procedure: IR CVC MEDIPORT PLACEMENT Ordering Provider: MAGALI (more content not included)... Normal [facility] Progress Note PM Rounding Note: Late note secondary to patient care. Rounded on patient in the afternoon. Patient sitting on the edge of bed visibly uncomfortable. Patient states that she has not passed any flatus throughout the day. She states that yesterday afternoon she had a small amount but nothing today. She is feeling very distended and constipated. No nausea or vomiting. She has been up walking in the hallways. Has not eaten anything more than a few bites throughout the day due to feeling very full. She is very frustrated about delays in her care and that she wants to go home but wants to have a bowel movement first. Has not taken any narcotic pain medications for her pain. PE: Gen: NAD, sitting on edge of bed HEENT: Normocephalic, Atraumatic Resp: No increased WOB, no respiratory distress Card: Regular rate Abd: soft, moderately distended, soft, mildly tender to palpation Patient encouraged to continue ambulation. Encouraged use of tramadol for pain as needed for pain. Notify RN and myself if any nausea or vomiting. Meryl Goldberg MD 10/01/2022 10:50 PM Normal [facility] Progress Noteon 10-01-2022 Progress Note ------ -- Attestation signed by Addy Hyatt MD at 10/01/2022 8:44 AM Patient rounded and discussed with residents. Has passed a little bit of flatus. Abdomen is distended but soft. Walking around well. We will continue postoperative care. 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 female POD # 3 s/p WILI, Omentectomy, Debulking, Appendectomy Patient seen and examined. She is feeling much better this morning. Was able to get up and walk in the halls yesterday. Now getting ready to go walk again. Pain is controlled. Patient is tolerating oral intake. She is urinating. She is ambulating without difficulty. She is not passing flatus. She denies Fever/Chills, N/V. Vitals: Vitals: 09/30/22 1046 09/30/22 1810 09/30/22 2241 10/01/22 0552 BP: 112/69 108/72 97/58 117/72 BP Location: Left arm Left arm Left arm Right arm Patient Position: Lying Sitting Lying Lying Pulse: 61 67 64 66 Resp: Temp: 36.4 ?C (97.5 ?F) 36.2 ?C (97.2 ?F) 36.4 ?C (97.5 ?F) 36.2 ?C (97.1 ?F) TempSrc: Temporal Temporal Temporal Temporal SpO2: 98% 98% 98% 98% Weight: Height: Physical Exam: Gen: NAD, sitting comfortably at the side of the bed HEENT: Normocephalic, Atraumatic Resp: No increased WOB, no respiratory distress Card: Regular rate Abd: soft, mildly distended, appropriately tender to palpation, no rebound, no guarding. Hypoactive bowel sounds. Incisions: Vertical midline c/d/I with steri strips in place Ext: No calf tenderness, swelling Medications: Current Facility-Administered Medications: acetaminophen (Tylenol) tablet 1,000 mg, 1,000 mg, Oral, q6h, Magalys Katherine Lamari, DO, 1,000 mg at 10/01/22 0609 aspirin EC tablet 81 mg, 81 mg, Oral, Daily, Magalys C Lamari, DO bisacodyl (Dulcolax) EC tablet 5 mg, 5 mg, Oral, Daily PRN, Magalys Katherine Lamari, DO docusate sodium (Colace) capsule 100 mg, 100 mg, Oral, BID, Magalys Katherine Lamari, DO, 100 mg at 09/30/222024 enoxaparin (Lovenox) syringe 40 mg, 40 mg, SubCUTAneous, Daily, Magalys C Lamari, DO gabapentin (Neurontin) capsule 400 mg, 400 mg, Oral, TID, Magalys Katherine Lamari, DO, 400 mg at 09/30/222030 ibuprofen tablet 600 mg, 600 mg, Oral, q6h, Magalys C Lamari, DO, 600 mg at 10/01/22 0238 magnesium hydroxide (Milk of Magnesia) 400 MG/5ML suspension 30 mL, 30 mL, Oral, BID PRN, Magalys C Lamari, DO, 30 mL at 09/30/22 1433 ondansetron ODT (Zofran-ODT) disintegrating tablet 4 mg, 4 mg, Oral, q8h PRN, 4 mg at 09/29/22 0540 OR ondansetron (Zofran) injection 4 mg, 4 mg, IntraVENous, q6h PRN, Magalys C Lamari, DO polyethylene glycol (PEG) 3350 (Miralax) packet 17 g, 17 g, Oral, BID PRN, Shae Moschella, DO, 17 g at 10/01/22 0238 prochlorperazine (Compazine) tablet 5 mg, 5 mg, Oral, q6h PRN, Magalys C Lamari, DO simethicone (Mylicon) chewable tablet 80 mg, 80 mg, Oral, BID, Magalys C Lamari, DO, 80 mg at 09/30/222024 sodium chloride 0.9 % infusion, 5-250 mL/hr, IntraVENous, PRN, Magalys C Lamari, DO sodium chloride 0.9% (NS) flush 10 mL, 10 mL, IntraVENous, 2 times per day, Magalys C Lamari, DO, 10 mL at 09/30/222037 sodium chloride 0.9% (NS) flush 10 mL, 10 mL, IntraVENous, PRN, Magalys C Lamari, DO traMADol (Ultram) tablet 50 mg, 50 mg, Oral, q4h PRN, Magalys C Lamari, DO, 50 mg at 09/30/22 0938 Diagnostics: IR CVC mediport placement Result Date: 09/29/2022 [id number] Exam Date/Time: 09/29/2022 16:28 Procedure: IR CVC MEDIPORT PLACEMENT Ordering Provider: HYATT STEPHEN Reason For Exam: EXAMINATION: Chest port insertion. EXAM DATE & TIME: 09/29/2022 4:28 PM EST INDICATION: OVARIAN CARCINOMA ADDITIONAL INFORMATION: 57-year-old female with ovarian carcinoma presents for chest port insertion COMPARISON: None INFORMED CONSENT: Written informed consent was obtained. The procedure, risks, benefits, and alternatives were discussed. All questions were answered. TIMEOUT: Physician-led timeout was conducted documenting correct patient, procedure, site, fire risk, antibiotics and allergies. COMPLICATIONS: None. ESTIMATED BLOOD LOSS: Less than 10 mL. MEDICATIONS: Antibiotics: 1000 mg of intravenous cefazolin were administered prior to procedure start. Contrast dose: None. IMPLANTED DEVICE: Xcela 6.6 [employer] Injectable Low Profile Titanium Port. STERILE TECHNIQUE: All elements of maximal sterile technique were applied: cap, mask, sterile gown, proper hand hygiene including sterile gloves, a large sterile sheet, and hospital-approved cutaneous antisepsis at the site (2% chlorhexidine). A sterile probe cover and sterile gel were also used to ensure ultrasound sterility. ANESTHESIA/SEDATION: Conscious sedation: an in (more content not included)... Normal [facility] CARECOORDon 09-30-2022 CARECOORD SPOKE WITH PT THIS MORNING, NOT FEELING WELL TODAY, HAVING PAIN AND IS CONSTIPATED. MED PORT PLACED YESTERDAY AFTERNOON. ANTICIPATE DISCHARGE TO HOME WHEN MEETING POST OP GOALS. [facility] Progress Noteon 09-30-2022 Progress Note ------ -- Attestation signed by Addy Hyatt MD at 09/30/2022 3:01 PM Patient rounded with residents. Doing well postoperatively. Little bit of abdominal bloating. Still not passing any gas. 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 female POD # 2 s/p WILI, Omentectomy, Debulking, Appendectomy. Patient seen and examined. She had issues with pain overnight. States she was doing well until about 0400. Since then she has had pretty constant pain, enough that she feels that she cannot even get out of bed. States last night she ate minimal dinner because it was cold and the snacks she has are too sweet. She is drinking a lot of fluid with no nausea or vomiting. Last night she was also very active walking around her room. She is very concerned about having a bowel movement and states she sometimes gets pain this severe when she doesn't have a bowel movement for several days. She does not want to take narcotics due to concern that it would cause her to be constipated but she did take a tramadol this AM. She is asking to increase her gabapentin. Her pain is improved slightly after taking ibuprofen, tylenol, simethicone, and tramadol this AM. She is not yet passing flatus. She denies Fever/Chills, Chest Pain, SOB, N/V. Vitals: Vitals: 09/29/22 1630 09/29/22 1649 09/29/22 2218 09/30/22 0514 BP: 113/63 102/58 79/54 136/71 BP Location: Left arm Left arm Patient Position: Lying Lying Pulse: 68 74 68 59 Resp: Temp: 36.6 ?C (97.8 ?F) 36.3 ?C (97.3 ?F) 36.8 ?C (98.3 ?F) TempSrc: Temporal Temporal Temporal SpO2: 99% 99% 96% 99% Weight: Height: Physical Exam: Gen: NAD, alert and cooperative HEENT: Normocephalic, atraumatic, EOMI, MMM Resp: no increased work of breathing Abd: soft, ND, no rebound. Tender to palpation in LUQ with occasional voluntary guarding. Able to remove bandage from abdomen without pain. Normoactive bowel sounds Incisions: vertical midline incision C/D/I with steris in place Ext: No LE edema, no calf tenderness or swelling Medications: Current Facility-Administered Medications: acetaminophen (Tylenol) tablet 1,000 mg, 1,000 mg, Oral, q6h, Magalys C Lamari, DO, 1,000 mg at 09/30/22 043 [Held by provider] clopidogrel (Plavix) tablet 75 mg, 75 mg, Oral, Daily, Magalys C Lamari, DO docusate sodium (Colace) capsule 100 mg, 100 mg, Oral, BID PRN, Magalys C Lamari, DO, 100 mg at 09/29/222101 gabapentin (Neurontin) capsule 300 mg, 300 mg, Oral, TID, Magalys C Lamari, DO, 300 mg at 09/29/222099 ibuprofen tablet 600 mg, 600 mg, Oral, q6h, Magalys C Lamari, DO, 600 mg at 09/30/22 043 ondansetron ODT (Zofran-ODT) disintegrating tablet 4 mg, 4 mg, Oral, q8h PRN, 4 mg at 09/29/22 0540 OR ondansetron (Zofran) injection 4 mg, 4 mg, IntraVENous, q6h PRN, Magalys C Lamari, DO polyethylene glycol (PEG) 3350 (Miralax) packet 17 g, 17 g, Oral, Daily PRN, Magalys C Lamari, DO, 17 g at 09/29/222102 prochlorperazine (Compazine) tablet 5 mg, 5 mg, Oral, q6h PRN, Magalys C Lamari, DO simethicone (Mylicon) chewable tablet 80 mg, 80 mg, Oral, PRN, Magalys C Lamari, DO, 80 mg at 09/30/22 045 sodium chloride 0.9 % infusion, 5-250 mL/hr, IntraVENous, PRN, Magalys C Lamari, DO sodium chloride 0.9% (NS) flush 10 mL, 10 mL, IntraVENous, 2 times per day, Magalys C Lamari, DO, 10 mL at 12/15/22 2100 sodium chloride 0.9% (NS) flush 10 mL, 10 mL, IntraVENous, PRN, Magalys C Lamari, DO traMADol (Ultram) tablet 50 mg, 50 mg, Oral, q4h PRN, Magalys C Lamari, DO, 50 mg at 09/30/22 0520 Diagnostics: IR CVC mediport placement Result Date: 09/29/2022 [id number] Exam Date/Time: 09/29/2022 16:28 Procedure: IR CVC MEDIPORT PLACEMENT Ordering Provider: HYATT STEPHEN Reason For Exam: EXAMINATION: Chest port insertion. EXAM DATE & TIME: 09/29/2022 4:28 PM EST INDICATION: OVARIAN CARCINOMA ADDITIONAL INFORMATION: 57-year-old female with ovarian carcinoma presents for chest port insertion COMPARISON: None INFORMED CONSENT: Written informed consent was obtained. The procedure, risks, benefits, and alternatives were discussed. All questions were answered. TIMEOUT: Physician-led timeout was conducted documenting correct patient, procedure, site, fire risk, antibiotics and allergies. COMPLICATIONS: None. ESTIMATED BLOOD LOSS: Less than 10 mL. MEDICATIONS: Antibiotics: 1000 mg of intravenous cefazolin were administered prior to procedure start. Contrast dose: None. IMPLANTED DEVICE: Xcela 6.6 [employer] Injectable Low Profile Titanium Port. STERILE TECHNIQUE: All elements of maximal sterile technique were applied: cap, (more content not included)... [facility] 09-29-2022 [facility] Assessment Date: 09/29/2022 Patient Name: Evelyn Mccabe : 1965 Patient Information Source of Information: Patient Cognition/Language: WFL - Within Functional Limits Permission given to speak with patient rental sales representative/caregiver as indicated: Yes Confirmation of Payer with patient/family: Yes Payer Name: MMO : Confirmation of Primary Care Physician: Confirmed PCP Name: COLIN SOFIA Seen in last 2 years?: Yes Primary Caregiver: Self If assistance needed, confirmed caregiver ready, willing and able to care for patient at discharge: Confirmed with: Living Arrangements Current Residence: Private Residence Number of Floors 1 Number of Entry Steps: Bed/Bath Levels: Facility: Facility Name: Plan to Return: Lives with: Children Support Systems: Children Activities of Daily Living Ambulation: Independent Bathing/Dressing: Independent Elimination/Continence/Luis Alberto leting: Independent Feeding: Independent Who Assists with Activities of Daily Living: Instrumental Activities of Daily Living Prescription Coverage: Yes Pharmacy Used: Medication Management: Independent Transportation/Shopping: Independent Transportation Mode: Car Needs Assistance with Transportation at Discharge: No Meal Preparation: Independent Laundry/Cleaning: Independent Finances/Bill Paying: Independent Communication: Independent Types of Care Services/Equipment Utilized Care Services: (NA) Dialysis Type: NA Durable Medical Equipment: (NA) Patient's Goal/Discharge Plan Patient expects to be discharged to: HOME Discharge Planning Actions: Continue to follow Patient's Choice Rights and [employer] and Collaborative Relationships Disclosed as Indicated for Post-Acute Care: Interdisciplinary Team Engagement: Social Work Referral for: Additional Information: SPOKE WITH PT AND FAMILY AT BEDSIDE, INTRODUCED SELF AND EXPLAINED ROLE. DAY #1 WILI, HX OVARIAN CA. WAITING FOR MEDPORT TO BE PLACED. ANTICIPATE DISCHARGE TO HOME WHEN MEETING POST OP GOALS. Marietta Dumont RN [facility] CARECOORD Pt discussed in ursula armijo today, chart reviewed. Pt is newly diag ovarian cancer. HEBER met briefly with pt. Pt had a number of visitors in the room. SW introduced self and role. HEBER wanted to make sure pt was aware of community resources. HEBER discussed the [place] [facility]. Pt indicated she was aware but not interested in this resource. Pt aware of and used [employer] for financial assistance. HEBER explained SW is available for support, if pt needs any during pt admission. Pt had no identified needs. HEBER avaibale as needs arise. [facility] Progress Noteon 09-29-2022 Progress Note UTILITIES EQUIPMENT REPAIRER PM Rounding Note Patient was evaluated at the bedside this afternoon. She is visibly upset because she has been NPO all day for IR procedure and was just told it may not happen today. I explained to patient that I spoke to IR twice this AM and had confirmed she was on schedule for today. I had also informed them that plan is for discharge tomorrow AM. I offered patient to just cancel mediport placement today so that she can eat. Patient declined because she does not want this to happen all over again tomorrow and for it to hold up her discharge. When I spoke with IR, they said to keep patient NPO with hopes that procedure will still get done today. I told patient that I can order her a diet whenever she wants to if she just wants to eat and cancel the procedure. Patient states her stomach just feels off and she's not sure if it's because she hasn't eaten, if she's nauseated from taking medications on an empty stomach, or if it's because she's constipated. Her abdomen remains soft and flat and vital signs remain stable. Updated nurse about plan. If patient goes down late for the procedure, I will place order for diet so that she can order food prior to the kitchen closing. I can also reorder toradol if needed for pain control since patient has been NPO. RN instructed to keep us updated. Magalys Arthur, DO 09/29/2022 3:29 PM Normal [facility] Progress Note Visited with Evelyn in her room. She stated that she has not been allowed to eat or drink since midnight in preparation for her mediport placement. She was not sure when it was to take place. She stated that her stomach is very upset. She's not sure if it's because she has not eaten, or if it's nausea, or if it's constipation, or if it's just from the anesthesia. Her son, Don, and daughter, Lady, are with her today. She shared with me that her last cycle (#4) of Carbo/Taxol was very difficult for her, to the point that she would not want to complete treatment. She stated she suffered from so much muscle and joint pain in her legs, beginning on post-chemo day 3 and ending around day 7, which caused her to spend about three days in bed in the position. She is aware of the Claritin and Motrin intervention, however she is unable to take Motrin because she is on Plavix. She stated that Tylenol does not help with her pain. Notified her that I would discuss with Dr. Hyatt a potential dose reduction for her next cycles. Provided much support and encouragement. She had no other needs, questions, or concerns at this time. Encouraged her to call me or the office should that change. She verbalized understanding. Normal [facility] Progress Note Nutrition Assessment Type and Reason for Visit: Initial (2-13lbs weight loss, decreased intake/appetite) Nutrition Recommendations/Plan: Pt meets AND/ASPEN criteria for Severe Malnutrition in the context of acute illness (suspect chronic but meets acute criteria-see assessment below). Pt currently NPO for port placement. Recommend resume Regular diet with no restrictions as soon as medically appropriate. Pt with extremely good appetite, states she is currently very hungry. 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 With diet advancement, please initiate chocolate Ensure Plus at PM snack (8 oz = 350 kcals, 20 gm protein). Pt denies wanting to increase the frequency. Noted pt follows with RDN at cancer center when she receives infusions. Monitor weight, labs, I/Os, skin integrity and overall nutrition status. RD to follow up weekly. Malnutrition Assessment: Malnutrition Status: Severe malnutrition Context: Acute Illness Findings of the 6 clinical characteristics of malnutrition: Energy Intake: No significant decrease in energy intake Weight Loss: Greater than 5% over 1 month (06/23/22 116lbs to 08/18 107lbs = 7.7% x 2 months) Body Fat Loss: Moderate body fat loss Orbital, Triceps, Buccal region Muscle Mass Loss: Moderate muscle mass loss Temples (temporalis), Clavicles (pectoralis & deltoids), Thigh (quadraceps), Calf (gastrocnemius), Hand (interosseous) Fluid Accumulation: No significant fluid accumulation Chamber Walker Strength: Not Performed Nutrition Assessment: 57 y.o. with a stage III ovarian carcinoma cancer here for Chemotherapy. Patient underwent laparoscopy in June 2022 with the finding of diffuse carcinomatosis. She was subsequently started on neoadjuvant chemotherapy. Has noted some neuropathy in hands. Is otherwise tolerating chemotherapy well. She is s/p WILI, Omentectomy, Debulking, Appendectomy 09/28. Tolerated well, not passing gas yet. She remains NPO for IR mediport placement today. Pt with +nutrition screen for weight loss and decreased intake/appetite. RD visited pt this AM with visitor present. Pt states her appetite is 'crazy good' and she eats all the time. 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 She denies avoiding any foods except for hamburger (makes her sick to her stomach) and other beef products (cut these out after her heart attack). She mostly eats pork and chicken for her proteins. She is currently NPO for procedure, but was on a regular diet yesterday (09/28) and was able to eat dinner last night without any difficulty. Pt states she follows with a RDN at [facility] when she goes for infusions. Pt states she used to weight 125lbs in June 2022 but she had ascites at this time. She states she now weighs 110lbs. Per chart review, pt weighed 116lbs on 06/23, dropped to 107lbs on 08/18 and her CBW is 110lbs. Pt confirmed this weight hx, states she tracks her weight very closely and is proud she gained 3lbs recently. Pt states she is currently very hungry and waiting for her port placement. States she drinks Boost/Ensure a few times a week as a snack. Agreeable to receive chocolate Ensure Plus as a PM snack when diet is resumed. RD performed a NFPE with significant losses documented. She meets criteria for severe malnutrition. Estimated Daily Nutrient Needs: Energy Requirements Based On: Kcal/kg Weight Used for Energy Requirements: Current Weight for Energy Calculation (kg): 50 kg Total Energy Requirements (kcals/day): 30-37 kcal/kg = 9211-9383 kcals/day Weight Used for Protein Requirements: [place] Weight in Kg Used for Protein Requirements: 61 kg Estimated Total Protein (g/day): 1.2-1.5 g/kg = 73-92 g/day Estimated Daily Total Fluid (ml/day): per MD Nutrition Related Findings: Dino = 19, GI = hypoactive, I/O-, Meds/Labs reviewed Wound Type: Surgical Incision Current Nutrition Therapies: NPO diet Current Oral Intake Average Meal Intake: NPO Average Supplements Intake: NPO Anthropometric Measures: Height: 170.2 cm (5' 7.01 ) Current Body Weight: 49.9 kg (09/28 no source) Admission Body Weight: 49.9 kg (09/28 no source) Usual Body Weight: 52.6 kg (Per chart: 08/18 107#, 07/22 110#, 06/23 116#) % Weight Change (Calculated): 0 [place] Body Weight (lbs) (Calculated): 135 lbs [place] Body Weight (Kg) (Calculated): 61 kg % [place] Body Weight (Calculated): 81.5 % BMI (kg/m2) (Calculated): 17.2 Weight Adjustment For: No Adjustment BMI Categories: Underweight (BMI less than 18.5) Nutrition Diagnosis: Severe malnutrition related to catabolic illness as evidenced by BMI, weight loss greater than or equal to 5% in 1 month, moderate loss of subcutaneous fat, severe muscle loss, Criteria as identified in malnutrition assessment Nutrition Interventions: Nutrition Education/Counseling: No recommendation at this time Coordination of Nutrition Care: Continue to monitor while inpatient Goals: Goals: PO intake 75% or greater, within 2 days Nutri (more content not included)... Normal [facility] Progress Note ------ -- Attestation signed by Addy Hyatt MD at 09/29/2022 12:01 PM Patient rounded and discussed with residents. Abdomen is soft and flat. Vital signs stable. 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 female POD # 1 s/p WILI, Omentectomy, Debulking, Appendectomy. Patient seen and examined. She complained of some nausea this AM but no emesis. She was able to eat dinner last night without any n/v. Pain is controlled with just toradol and tylenol. Patient has been NPO at midnight for mediport placement this AM. Cobos catheter was removed this AM so she has not yet spontaneously voided. She is ambulating without difficulty. She is not passing flatus. She denies Fever/Chills, Chest Pain, SOB. Vitals: Vitals: 09/28/22 1454 09/28/22 1802 09/28/22 2143 09/29/22 0532 BP: 103/62 117/65 109/61 BP Location: Left arm Left arm Right arm Patient Position: Lying Lying Lying Pulse: 60 61 65 67 Resp: 14 Temp: 36.2 ?C (97.1 ?F) 36.2 ?C (97.2 ?F) 36.6 ?C (97.9 ?F) TempSrc: Temporal Temporal Temporal SpO2: 100% 95% 100% 99% Weight: Height: Intake/Output: Current Shift: I/O this shift: In: - Out: 1999 [Urine:1999] Physical Exam: Gen: NAD, alert and cooperative HEENT: Normocephalic, atraumatic, EOMI, MMM Resp: no increased work of breathing Abd: soft, NT/ND, no rebound, no guarding. Incisions: clean dressing in place Ext: No LE edema, no calf tenderness or swelling Medications: Current Facility-Administered Medications: acetaminophen (Tylenol) tablet 1,000 mg, 1,000 mg, Oral, q6h, Magalys C Lamari, DO, 1,000 mg at 09/29/22 0200 [Held by provider] clopidogrel (Plavix) tablet 75 mg, 75 mg, Oral, Daily, Magalys C Lamari, DO docusate sodium (Colace) capsule 100 mg, 100 mg, Oral, BID PRN, Magalys C Lamari, DO gabapentin (Neurontin) capsule 300 mg, 300 mg, Oral, TID, Magalys C Lamari, DO, 300 mg at 09/28/222030 ibuprofen tablet 600 mg, 600 mg, Oral, q6h, Magalys C Lamari, DO ketorolac (Toradol) injection 30 mg, 30 mg, IntraVENous, q6h, Magalys C Lamari, DO, 30 mg at 09/29/22 0200 ondansetron ODT (Zofran-ODT) disintegrating tablet 4 mg, 4 mg, Oral, q8h PRN, 4 mg at 09/29/22 0540 OR ondansetron (Zofran) injection 4 mg, 4 mg, IntraVENous, q6h PRN, Magalys C Lamari, DO polyethylene glycol (PEG) 3350 (Miralax) packet 17 g, 17 g, Oral, Daily PRN, Magalys C Lamari, DO prochlorperazine (Compazine) tablet 5 mg, 5 mg, Oral, q6h PRN, Magalys C Lamari, DO simethicone (Mylicon) chewable tablet 80 mg, 80 mg, Oral, PRN, Magalys C Lamari, DO sodium chloride 0.9 % infusion, 5-250 mL/hr, IntraVENous, PRN, Magalys C Lamari, DO sodium chloride 0.9% (NS) flush 10 mL, 10 mL, IntraVENous, 2 times per day, Magalys C Lamari, DO sodium chloride 0.9% (NS) flush 10 mL, 10 mL, IntraVENous, PRN, Magalys C Lamari, DO traMADol (Ultram) tablet 50 mg, 50 mg, Oral, q4h PRN, Magalys Katherine Lamari, DO Labs: Admission on 09/28/2022 Component Date Value Ref Range Status Auto WBC 09/29/2022 12.3 (H) 3.6 - 10.7 10*3/uL Final RBC 09/29/2022 3.67 (L) 3.8 - 5.20 10*6/uL Final Hemoglobin 09/29/2022 10.5 (L) 11.7 - 16.0 g/dL Final Hematocrit 09/29/2022 31.3 (L) 35.0 - 47.0 % Final MCV 09/29/2022 85.4 80.0 - 98.0 fL Final MCH 09/29/2022 28.5 26.0 - 34.0 pg Final MCHC 09/29/2022 33.4 32.0 - 36.0 % Final RDW 09/29/2022 19.9 (H) 11.5 - 14.5 % Final Platelets 09/29/2022 238 140 - 440 10*3/uL Final MPV 09/29/2022 8.0 7.4 - 12.4 fL Final PROTHROMBIN TIME 09/29/2022 10.8 9.0 - 12.0 s Final INR 09/29/2022 1.0 0.9 - 1.1 Final Recommended Anticoagulant Therapy: SEE BELOW ----- INR of 2.0 - 3.0 : - Prophylaxis of Venous Thrombosis (high-risk surgery) - Treatment of Venous Thrombosis - Treatment of Pulmonary Embolism (Includes tissue heart valves, Acute Myocardial Infarction to prevent systemic embolism, Valvular Heart Disease, and Atrial Fibrillation) ----- INR of 2.5 - 3.5 : - Mechanical Prosthetic Valves (high risk) - If oral anticoagulant therapy is used to prevent Myocardial Infarction APTT 09/29/2022 24.5 20.0 - 30.5 s Final ] Assessment/Plan: Evelyn Mccabe 57 y.o. female POD # 1 s/p WILI, Omentectomy, Debulking, Appendectomy. Postoperative State - Doing well, vitals stable - Cobos catheter removed this AM, monitor for spontaneous void - Encourage ambulation and use of incentive spirometer - Pain controlled: yes, discontinued IV morphine this AM and will transition from toradol to ibuprofen today - Labs/Imaging:Coags obtained this AM normal, needed for IR procedure today. Hgb stable at 10.5 - DVT Proph:SCDs while in bed, will discuss restarting home plavix after IR procedure today - Abx: s/p ancef x2 (more content not included)... 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 The patient had a good response to therapy. There was no disease noted on the diaphragms. There was disease noted in the ovaries as well as on the peritoneum of the mesentery of the small bowel, this nodule was completely resected. There was also tumor in the omentum, this was resected in its entirety. Description of operation. Patient identified brought to the operating room and after ministration general anesthesia she underwent abdominal perineal vaginal prep and drape Cobos cath inserted in the bladder compression stockings on and running up. Antibiotics were given and timeout was performed. Using a knife a midline incision was made sharply and divide down through the skin using Bovie cautery for the subcutaneous tissue and the fascia. The peritoneal cavity is opened using Metzenbaum scissors. Small amount of disease on the anterior peritoneum in the lower midline of the abdomen was resected. A very careful and thorough examination of the abdomen then was performed. The omentum was very dense adherent to the left upper quadrant of the abdomen. There was tumor notedin the omentum. There was a tumor nodule noted in the small bowel mesentery. The Bubba wound retractor was then placed. Attention was first turned to the omentum. The omentum was dissected off the left paracolic gutter by using Bovie cautery, this resected some of the peritoneum as well as a small amount of the posterior fascia. This freed the omentum up nicely off the left upper quadrant and allowed the omentum to then be dissected off the colon by dissecting the avascular plane between the colon and the omentum, gradually freeing this up using combination of Bovie cautery and sharp dissection. This then allowed the gastrocolic omentum around the greater curvature the stomach to be coagulated and divided up to the splenic flexure. Reflecting the omentum then towards the hepatic flexure the remainder of the dissection was then performed in a similar fashion removing the entire gastrocolic as well as infracolic hematoma. A nodule in the small bowel mesentery was then resected. This was right at the antimesenteric border of the small bowel. No evidence of enterotomy was noted and the serosal defect was closed using interrupted sutures of 3-0 silk on the small bowel. The appendix was involved with tumor, the mesoappendix was serially clamped and coagulated using the Enseal device, the base of appendix was crushed tied off with 0 Vicryl suture x2 and amputated and handed off the field. Attention then turned down the pelvis. There was disease noted on the left pelvic sidewall involving the left tube and ovary. Left pelvic sidewall was opened the left ureter identified the left ovarian vessels were skeletonized above the ureter coagulated Enseal device and divided. The sigmoid colon was then dissected off the disease on the pelvic peritoneum using sharp dissection. With the ureter under direct vision and being retracted laterally the posterior leaf of the broad ligament was resected in its entirety along with tumor. This then allowed the vesicovaginal space to be open and the bladder was dissected inferiorly. Dissection then continued around the right side of the pelvis the round ligaments were coagulated and divided the ureter identified the ovarian vessels were coagulated and divided as well up. The uterine vessels were then skeletonized coagulated and divided with the Enseal device switching to straight Zeppelin's the cardinal ligaments were serially clamped cut and tied using 0 Vicryl transfixion sutures. The rectovaginal space was then open no other disease was noted in the cul-de-sac and the curved Zeppelin's were used to crossclamped the upper part of the vagina, the uterus cervix tubes and ovaries was then amputated handed off the field this also included a large portion of the posterior broad ligament peritoneum. This up was replaced a 0 Vicryl transfixion sutures the cuff was closed with 0 Vicryl [id number] the pelvis is irrigated hemostasis noted the patient was noted to be completely debulk the abdomen pelvis was irrigated the fascia was then closed using a running 0 PDS Endoloop mass closed with fashion followed by subcuticular 3-0 Monocryl and Steri-Strips on the skin. Blood loss was about 100 cc. This is in the operative note Normal [facility] Op Note Date: 09/28/2022 Loc ation: [facility] OR Name: Evelyn Mccabe, : 1965, Diagnosis Pre-op Diagnosis * Malignant neoplasm of unspecified ovary (HCC) [C56.9] Secondary malignancy of omentum, secondary malignancy of peritoneum, secondary malignancy of appendix Post-op Diagnosis * Malignant neoplasm of unspecified ovary (HCC) [C56.9] Procedures TOTAL ABDOMINAL HYSTERECTOMY, BILATERAL SALPINGO OOPHERECTOMY DEBULKING METAPORT PLACEMENT WITH FLURO 59622 - UT TOTAL ABDOMINAL HYSTERECT W/WO RMVL TUBE OVARY INSERT TUNNELED CENTRAL VENOUS CATHETER WITH PORT 53930 - UT INSJ TUNNELED CTR VAD W/SUBQ PORT AGE 5 YR/> RESECTION RECURRENT OVARIAN TUBAL PERITONEAL UTERINE MALIGNANCY WITH OMENTECTOMY PELVIC LYMPHADENECTOMY 67618 - UT RESECTION RECRT MAL W/OMENTECTOMY PEL LMPHADEC Appendectomy Surgeons * Addy Hyatt - Primary Procedure Summary Anesthesia: General ASA: III Estimated Blood Loss: 20 mL Drains: Urethral Catheter 16 Fr. (Active) Specimens ID Source Type Tests Collected By Collected At Frozen? Priority Lab ID 1 Retroperitoneum Tissue TISSUE EXAM Addy Hyatt MD 09/28/22 1050 No Description: ANTERIOR PERITONEUM 2 Omentum, Biopsy Tissue TISSUE EXAM Addy Hyatt MD 09/28/22 1118 No Description: OMENTUM 3 Uterus Tissue TISSUE EXAM Addy Hyatt MD 09/28/22 1143 No Routine Description: UTERUS, CERVIX, BILATERAL FALLOPIAN TUBES & OVARIES 4 Abdominal Wall Tissue TISSUE EXAM Addy Hyatt MD 09/28/22 1156 No Routine Description: SMALL BOWEL NODULE 5 Large Intestine, Appendix Tissue TISSUE EXAM Addy Hyatt MD 09/28/22 1155 No Routine Description: APPENDIX Implants Staff: Mail Teller: Trupti Sauceda RN Relief Mail Teller: Alanis Gonzalez RN Scrub Person: Mary Galvez MA; Karina Washington Findings: Patient has had a good response to chemotherapy. Has very minimal residual disease. At the completion of surgery all gross disease had been removed. Complications: None; patient tolerated the procedure well. Specimens Collected: Order Name Source Comment Collection Info Order Time HCG QUALITATIVE URINE Urine, Clean Catch Discontinue this order if: 1. patient is older than 55 years old 2. has had a prior hysterectomy 3. today's surgery is for treatment of known or suspected ectopic or loss. 4. patient has a known intrauterine but this is a needed surgery. 09/28/2022 9:30 AM POTASSIUM WITH MG REFLEX For patients on dialysis to draw potassium day of surgery 09/28/2022 9:30 AM PROTHROMBIN TIME If patient on coumadin within 4 days prior. 09/28/2022 9:30 AM TISSUE EXAM Retroperitoneum Pre-op diagnosis: Malignant neoplasm of unspecified ovary (HCC) [C56.9] STAGE 3 C OVARIAN CANCER S/P CHEMOTHERAPY Collected By: Addy Hyatt MD 09/28/2022 10:51 AM Wound Class: Class II: Clean-Contaminated Blood Products: None Prophylactic Antibiotics: Procedure appropriate prophylactic antibiotic(s) given within 1 hour of surgical incision (two hours if receiving Vancomycin or flouroquinolone) [facility] Progress Noteon 09-28-2022 Progress Note Visited with Evelyn in [facility] prior to her surgery with Dr. Hyatt. Dr. Hyatt was present in the pre-op room as well as her daughter, Sugey. Dr. Hyatt discussed the surgery and plan for her, discharge, post-op office visit and resuming chemotherapy. She signed the consent. They stated that they had a nice Thanksgiving. Notified her that I will continue to follow along in her care, will likely visit her in the next couple of days when she's settled in a room. She had no needs, questions, or concerns at this time. Encouraged her to call me or the office should that change. She verbalized understanding. Visited with Evelyn's son, Don, and daughter, Lady, in the [facility] waiting area. Notified them that I will continue to follow along in Evelyn's care, will likely visit her in the next couple of days when she's settled in a room. Encouraged them to reach out to me should they have any questions. They verbalized understanding. [facility] 36on 09-27-2022 36 Pt has questions abo ut eating before surgery [facility] PREPROCINSon 09-21-2022 PREPROCINS Medication List Accurate as of September 21, 2022 11:20 AM. Always use your most recent med list. * acetaminophen 500 MG tablet Commonly known as: Tylenol Medication Adjustments for Surgery: Take morning of surgery with sip of water, no other fluids * Acetaminophen Extra Strength 500 MG tablet Generic drug: acetaminophen TAKE 2 TABLETS BY MOUTH EVERY 6 HOURS NEEDED FOR PAIN * acetaminophen 500 MG tablet Commonly known as: Tylenol aspirin 81 MG EC tablet Medication Adjustments for Surgery: Take morning of surgery with sip of water, no other fluids cholecalciferol 50 MCG (2000 UT) capsule Commonly known as: Vitamin D-3 Medication Adjustments for Surgery: Continue until night before surgery * clopidogrel 75 MG tablet Commonly known as: Plavix Notes to patient: Instructed to stop taking 09-20-2022 * clopidogrel 75 MG tablet Commonly known as: Plavix dexAMETHasone 4 MG tablet Commonly known as: Decadron Take 5 tablets 12 hours and 6 hours prior to chemotherapy. Notes to patient: Only takes prior to chemo. * docusate sodium 250 MG capsule Commonly known as: Colace * docusate sodium 100 MG capsule Commonly known as: Colace TAKE 1 CAPSULE BY MOUTH 2 TIMES DAILY Medication Adjustments for Surgery: Continue until night before surgery * docusate sodium 100 MG capsule Commonly known as: Colace TAKE 2 CAPSULES BY MOUTH 2 TIMES DAILY ezetimibe 10 MG tablet Commonly known as: Zetia Medication Adjustments for Surgery: Continue until night before surgery gabapentin 300 MG capsule Commonly known as: Neurontin Take 1 capsule (300 mg) by mouth in the morning and 1 capsule (300 mg) at noon and 1 capsule (300 mg) before bedtime. Medication Adjustments for Surgery: Take morning of surgery with sip of water, no other fluids magnesium hydroxide 800 MG/5ML suspension Commonly known as: Milk of Magnesia Medication Adjustments for Surgery: Continue until night before surgery ondansetron 8 MG tablet Commonly known as: Zofran Notes to patient: Only uses when on chemo. oxyCODONE 5 MG immediate release tablet Commonly known as: Roxicodone TAKE 1 TABLET BY MOUTH EVERY 6 HOURS NEEDED FOR PAIN FOR UP TO 3 DAYS. TAKE LOWEST DOSE POSSIBLE TO MANAGE PAIN Notes to patient: Does not take * polyethylene glycol (PEG) 3350 17 g packet Commonly known as: Miralax * GaviLAX 17 GM/SCOOP powder Generic drug: polyethylene glycol (PEG) 3350 TAKE 17 G BY MOUTH DAILY Medication Adjustments for Surgery: Continue until night before surgery prochlorperazine 10 MG tablet Commonly known as: Compazine Notes to patient: Only takes when needed. senna 8.6 MG tablet Commonly known as: Senokot senna-docusate 8.6-50 MG tablet Commonly known as: Brianna-Colace traMADol 50 MG tablet Commonly known as: Ultram Medication Adjustments for Surgery: Take morning of surgery with sip of water, no other fluids * This list has 10 medication(s) that are the same as other medications prescribed for you. Read the directions carefully, and ask your doctor or other care provider to review them with you. Additional Instructions: You may take your prescription pain medication. You may take Tylenol for pain. NO Motrin, ibuprofen or Advil for 24 hours prior to surgery or longer if instructed by your surgeon. NO Aleve or Naprosyn for 3 days prior to surgery or longer if instructed by your surgeon. IF YOU TAKE BLOOD THINNERS OR ASPIRIN: Stop Plavix 09-20-2022. Continue taking aspirin 81 mg Follow any instructions given to you by Shower with an antibacterial soap such as Dial or Safeguard or shower kit provided to you before coming to the hospital. No makeup, lotion, powder, deodorant or body spays. No hair products. Remove all jewelry and leave it at home. Wear loose comfortable clothing to go home in. You may brush your teeth morning of surgery. Do not wear contacts day of surgery. No marijuana (THC), smoking or alcohol for 24 hours prior to surgery. Please arrange for a responsible adult to drive you home after your surgery and that there is a responsible adult with you for 24 hours post discharge. If you have specific questions, please call your surgeon. You will receive a call the day before your surgery to verify your arrival time and date. You will be asked to arrive at least two hours prior to your scheduled surgery time. Please bring your [facility] Surgical folder and medication list with you day of surgery. We encourage you to write down any questions you may have for the surgeon, anesthesiologist, or other members of the surgical team and bring it with you the day of surgery. Please bring photo ID and insurance information. CHEMICAL WASTE MANAGEMENT TECHNICIAN AND PARKING IN THE MAIN DECK ARE FREE DAY OF SURGERY. PARKING IN THE DECK-- AFTER PARKING TAKE THE ELEVATOR TO LEVEL ONE AND TAKE THE BRIDGE TO THE HOSPITAL. GO TO THE RIGHT AND GO AROUND THE CORNER TO THE SAME DAY SURGERY DESK AND CHEC (more content not included)... Normal [facility] 3609-06-2022 36 Pt called and no fev er, aches or chills. Head is stuffy and nasal. Pt informed she can take OTC. Pt states leg pains-for arthralgias pt can take claritin BID and anti inflammatory TID. Pt has to call cardioloigt due to not being able to take ibuprofen for an anti inflammatory she can take. Normal [facility] 3609-05-2022 36 S: Patient's juarez olson spoke with [facility] nurse regarding cold type symptoms. B: Onset of symptoms/concern onset of cold type symptoms lives home with daughter and the grandson has minor cold type symptoms the past two days. Last chemo treatment on Monday. Secondary malignant neoplasm/ malignant neoplasm of ovary Chemo is Taxol. /Carboplatin. WBC 6.2 Neut 50.6 A: Afebrile reporting runny nose, clear discharge onset a few hours ago this evening. + Cough Laying in bed this evening per daughter's description. Denies headaches. + constipated tonight's BP 91/60 PO2 sats. 98 heart rate 79 Taking her Miralax twice and MOM once today. Denies chills. R: Paging per Patient request Dr. Lacy, she advised will have the office follow up with her tomorrow. Advise care advice for tonight and cold symptoms. Patient daughter understands care advice. No further needs at this time. Patient's daughter instructed to call back with new or worsening symptoms. Reason for Disposition [1] Fever AND [2] no signs of serious infection or localizing symptoms Protocols used: Cancer - [id number] [facility] 36 Called pt with CA 12 5 of 43.8. Pt verbalized understanding. [facility] 36 PAT: 09.21.2022 at 1 0:30 am SX: 09.28.2022 at 1 pm arrival at 11 am Postop on 10.12.2022 at 1 pm Folder and instruction given to patient [facility] Progress Noteon 09-02-2022 Progress Note Visited with Evelyn in the infusion center. Her son, Don, and her daughter, Sugey, are with her today. She stated she is doing well. We discussed family, kids, holidays, trips, and Thanksgiving plans. She stated that the office is going to call her on Monday regarding a date for her surgery. Notified her that I would like to visit her when she does come in for surgery, and she is ok with that. She is aware that she will also be scheduled for two more cycles of treatment following her surgery. Provided support and encouragement. She had no needs, questions, or concerns at this time. Encouraged her to call me or the office should that change or should she experience any new or worsening symptoms. She verbalized understanding. [facility] Progress Note Pt arrived ambulator y for chemotherapy. Pt states that she has been feeling well. She reports having constipation with each treatment but currently with good control. Pt reports that she is going to be getting port placed. PIV placed. Labs completed yesterday. POC reviewed. 5238,5850-This nurse along with another practitioner approved to administer or prepare chemotherapy (see MAR for practitioner's names) verified the accuracy of the following elements when initiating the chemotherapy treatment: drug name, drug dose, infusion volume or drug volume when prepared in a syringe, rate of administration, route of administration, expiration date/times, appearance and physical integrity of the drugs, rate set on the infusion pump when used, and sequencing of drug administration. See MAR for the specific components of the medication received. 1525- Pt tolerated infusion well without issue. Pt is awaiting schedule for surgery from Dr. Hyatt office. PIV removed. Pt discharged ambulatory to home. Normal [facility] 36on 08-18-2022 36 Pt aware of CA 125 results, no further questions. Normal [facility] Office Visiton 08-18-2022 Follow-up visit [id number] Me judy Mccabe 1965 F Date Provider Department Center 08/18/2022 [id number][facility] None Family History Problem Relation Age of Onset Thyroid disease Sister Colon cancer Sister Thyroid disease Sister Heart disease Father Hypertension Father Thyroid disease Sister Thyroid disease Mother Lung cancer Maternal Grandfather Heart disease Maternal Grandfather Ovarian cancer Maternal Grandmother Family Status - Relation Status Age at Sister Alive Sister Alive Father Sister Mother Maternal Grandfather Maternal Grandmother Level of Service:79464 UT OFFICE/OUTPATIENT ESTABLISHED MOD [facility] 30-39 MIN Reason for Visit and Comments: Pain [136] Normal [facility] PATINSon 08-18-2022 PATINS For bowels: Take 2 senna s tabs in am, 2 tabs in pm If constipated may increased to 3 tabs po BID If no help- use MOM and prune juice Call Delilah [phone] Normal [facility] Progress Noteon 08-18-2022 Progress Note [facility] [address] [place] [address] Visit type: new consultation Reason for Visit: Evelyn Mccabe is a 57 y.o. female with chief complaint of Pain Assessment and Plan Evelyn was seen today for pain. Diagnoses and all orders for this visit: Generalized abdominal pain (Primary)- complicated uncontrolled pain secondary to cancer- will continue with tramadol prn but also start on gabapentin for highly neuroapthic pain and increase senna s to 2 tabs po BID. - gabapentin (Neurontin) 300 MG capsule; Take 1 capsule (300 mg) by mouth in the morning and 1 capsule (300 mg) at noon and 1 capsule (300 mg) before bedtime. - senna-docusate (Senna S) 8.6-50 MG tablet; Take 2 tablets by mouth in the morning and 2 tablets in the evening. Malignant neoplasm of ovary, unspecified laterality (HCC)under care of [facility] oncology. Continues with chemotherapy. - gabapentin (Neurontin) 300 MG capsule; Take 1 capsule (300 mg) by mouth in the morning and 1 capsule (300 mg) at noon and 1 capsule (300 mg) before bedtime. - senna-docusate (Senna S) 8.6-50 MG tablet; Take 2 tablets by mouth in the morning and 2 tablets in the evening. Neuropathy- see above, may need low dose methadone - gabapentin (Neurontin) 300 MG capsule; Take 1 capsule (300 mg) by mouth in the morning and 1 capsule (300 mg) at noon and 1 capsule (300 mg) before bedtime. - senna-docusate (Senna S) 8.6-50 MG tablet; Take 2 tablets by mouth in the morning and 2 tablets in the evening. No orders of the defined types were placed in this encounter. Follow-up:3-4 weeks Subjective Evelyn Mccabe is a 56 y.o. female with newly diagnosed stage IIIC ovarian carcinoma, admitted for suspected large bowel obstruction after presenting to the ED with constipation, abd pain, nausea, and vomiting as well as CT showing colonic distention and luminal narrowing concerning for obstruction at the rectosigmoid junction. Once in the ED, she had a small bowel movement and began to have diarrhea. GI was consulted and she underwent a flexible sigmoidoscopy which showed congestion at the rectosigmoid junction but no obstruction in the colon. She was discharged home in stable condition on 07/08 with prescriptions for stool softeners and instructions to keep her bowel movements as soft as possible. She will continue chemotherapy with next infusion scheduled in July. Discharge instructions reviewed and questions answered. Evelyn is seen today to establish care. She notes that she continues to have abdominal pain.She notes that this pain has been present and bothersome prior to her diagnosis with cancer. She feels discouraged and worn down from this pain. She feels like no one can help her. She notes increased pain with eating. She also reports that's with eating she has increased fullness, pressure in abdomen. She notes cramping with senna s 2 tabs- notes constipation with increasing pain, then days dull of diarrhea and then weakness. She feels like these symptoms are cyclic and never goes away. She notes she has zofran and compazine at times. She notes that wants to be out of pain, able to eat and get stronger. Pain Assessment (If Pain Scale >0) Description: pulsating, throbbing, and pressure Duration: month(s) Frequency:Daily Location: abdomen Alleviating Factors: nothing Exacerbating Factors: food ingestion Effect:Change in Function, Interference with Activities, and Sleep [place] Symptom Assessment Score [place] Score Pain Score 4 Tiredness Score 2 Nausea Score 3 Depression Score 1 Anxiety Score 1 Drowsiness Score 1 Anorexia Score (0= eating well, 10= not eating) 8 Wellbeing Score (10= worst sense of well-being) 7 Constipation 3 Dyspnea Score (0= no shortness of breath) 2 Assessed by:patient Review of Systems PCP: Colin Sofia Oncologist: No primary care provider on file. Current Therapies: chemotehrapy Goals of care: Live Longer and Improve or Maintain Function/Quality of Life Code status: Full Code Advance directives: needs to discuss and complete Surrogate: Child Sugey Prognosis: unknown Spiritual assessment: No spiritual distress identified Bereavement and grief: Grief Issues Not Identified Social history: Marital status: single Children: adult children Living status: alone Past Medical History: Diagnosis Date Acute bronchiolitis Acute ST elevation myocardial infarction (CMS/HCC) (HCC) Hx of blood clots when Past Surgical History: Procedure Laterality Date CORONARY STENT PLACEMENT N/A ELBOW SURGERY FLEXIBLE SIGMOIDOSCOPY 07/08/2022 dr hernandez LAPAROSCOPY DIAGNOSTIC / BIOPSY / ASPIRATION / LYSIS 06/28/2022 Diagnostic lap, peritoneal biopsies TUBAL LIGATION Family History Problem Relation Name Age of Onset Thyroid disease Sister Colon cancer Sister Thyroid disease Sister Hear (more content not included)... [facility] 36on 08-15-2022 36 {\rtf1\cqgmrl49469\a nsi\de yfnmb0825\ftnbj\uc1\deff0 \X0A\{\fonttbl{\f0 \fnil \fcharset0 [employer];}{\f1 \fnil SEGOE UI;}}\X0A\{\colortbl ;\ysz828\sxowk086\udzn478 ;\red79\green79\blue79 ;\red95\green95\blue95 ;\red0\green0\blue0 ;\red0\green0\blue0 ;}\X0A\{\stylesheet{\f0\fs 24 Normal;}{\cs1 Default Paragraph Font;}{\s2\snext0 heading 1;}{\s3\snext0 heading 2;}{\s4\snext0 heading 3;}{\s5\snext0 heading 4;}{\s6\snext0 heading 5;}{\s7\snext0 heading 6;}}\X0A\{\*\revtbl{Unknow n;}}\X0A\truwbb45587\meenakshi st95232\cgukp928\slaoj258\ elzaf313\yhtyr892\headery7 20\blexjla598\nogrowautofi t\odbulv442\formshade\dntb lnsbdb\fet4\aendnotes\aftn nrlc\pgbrdrhead\pgbrdrfoot \X0A\sectd\ivpasd30943\pg hkei79241\guttersxn0\margl rff769\zbqtstce576\margtsx n720\eaqsxfpx652\cvsoqrn27 0\xqwulmi757\sbkpage\pgnco nt\pgndec \X0A\plain\plain\f0\fs24\ pard\ssparaaux0\s0\sl24\lt rpar\ql\keepn\plain\f0\fs2 4{\*\bkmkstart Telephone Encounter by SHALINI Landeros CNP at 08/15/2022 8:24 AM}{\*\bkmkend Telephone Encounter by SHALINI Landeros CNP at 08/15/2022 8:24 AM}\plain\f0\fs20\hich\f0\ dbch\f0\loch\f0\fs20\v \X0A\bmk\par \X0A\trowd\trgaph0\lastro w\trpaddl0\trpaddfl3\trpad dr0\trpaddfr3\trleft0\trrh 280\ltrrow \X0A\clvertalb\clbrdrb\br drs\\\cellx1 0800 \X0A\pard\intbl\ssparaaux 0\s0\sl24\ltrpar\ql\keepn\ plain\f0\fs24{\*\bkmkstart Telephone Encounter by Mohinder Snow, [facility] at 08/15/2022 8:24 AM}{\*\bkmkend [facility] AM}\plain\f0\fs20\hich\f0\ dbch\f0\loch\f0\cf2\fs20\l trch\b \X0A\[facility] AM\plain\f0\fs20\hich\f0\d bch\f0\loch\f0\fs20 \cell \X0A\intbl\row \X0A\pard\ssparaaux0\s0\q l\plain\f0\fs24\plain\f0\f s20\hich\f0\dbch\f0\loch\f 0\fs20\pard\sect \X0A\sectd\nmjwqb95192\pg lqfd32904\guttersxn0\margl ywr676\kvjsobzm352\margtsx n720\egumljjb964\ckoxwwv96 0\ltzwsea169\sbknone\pgnco nt\pgndec \X0A\{\header \X0A\trowd\trgaph0\lastro w\trpaddl0\trpaddfl3\trpad dr0\trpaddfr3\trleft0\trrh 280\ltrrow \X0A\clvertalb\clbrdrb\br drs\\\cellx1 0800 \X0A\pard\intbl\ssparaaux 0\s0\sl24\ltrpar\ql\keepn\ plain\f0\fs24\plain\f0\fs2 0\hich\f0\dbch\f0\loch\f0\ cf2\fs20\ltrch\b Telephone Encounter by Mohinder Adamson MANAGER OF TRAINING AND DEVELOPMENT [facility] at 08/15/2022 8:24 AM (continued)\plain\f0\fs20\ hich\f0\dbch\f0\loch\f0\fs 20 \cell \X0A\intbl\row \X0A\plain\f0\fs24}\X0A\ trowd\trgaph0\trpaddl0\trp addfl3\trpaddr0\trpaddfr3\ trleft0\trkeep \X0A\clvertalt\ewabz326 \X0A\clvertalt\xehrk6396 \X0A\clvertalt\gbvlb4268 \X0A\clvertalt\ftzkw17906 \X0A\pard\intbl\ssparaaux 0\s0\sl24\ql\keepn\plain\f 0\fs24\plain\f0\fs20\hich\ f0\dbch\f0\loch\f0\fs20\ce ll \X0A\pard\intbl\ssparaaux 0\s0\li80\ri80\sl24\ql\jason pn\plain\f0\fs24\plain\f0\ fs20\hich\f0\dbch\f0\loch\ f0\cf3\fs20 Author: \plain\f0\fs20\hich\f0\dbc h\f0\loch\f0\cf4\fs20 Mohinder Snow MANAGER OF TRAINING AND DEVELOPMENT - VENDOR MANAGER\plain\f0\fs20\hich\f0\ dbch\f0\loch\f0\fs20\cell \X0A\pard\intbl\ssparaaux 0\s0\li80\ri80\sl24\ql\jason pn\plain\f0\fs24\plain\f0\ fs20\hich\f0\dbch\f0\loch\ f0\cf3\fs20 Service: \plain\f0\fs20\hich\f0\dbc h\f0\loch\f0\cf4\fs20 \emdash\plain\f0\fs20\hich \f0\dbch\f0\loch\f0\fs20\c ell \X0A\pard\intbl\ssparaaux 0\s0\li80\ri80\sl24\ql\jason pn\plain\f0\fs24\plain\f0\ fs20\hich\f0\dbch\f0\loch\ f0\cf3\fs20 Author Type: \plain\f0\fs20\hich\f0\dbc h\f0\loch\f0\cf4\fs20 Nurse Practitioner\plain\f0\fs20 \hich\f0\dbch\f0\loch\f0\f s20\cell \X0A\intbl\row \X0A\pard\intbl\ssparaaux 0\s0\sl24\ql\keepn\plain\f 0\fs24\plain\f0\fs20\hich\ f0\dbch\f0\loch\f0\fs20\ce ll \X0A\pard\intbl\ssparaaux 0\s0\li80\ri80\sl24\ql\jason pn\plain\f0\fs24\plain\f0\ fs20\hich\f0\dbch\f0\loch\ f0\cf3\fs20 Filed: \plain\f0\fs20\hich\f0\dbc h\f0\loch\f0\cf4\fs20 08/15/2022 8:25 AM\plain\f0\fs20\hich\f0\d bch\f0\loch\f0\fs20\cell \X0A\pard\intbl\ssparaaux 0\s0\li80\ri80\sl24\ql\jason pn\plain\f0\fs24\plain\f0\ fs20\hich\f0\dbch\f0\loch\ f0\cf3\fs20 Encounter Date: \plain\f0\fs20\hich\f0\dbc h\f0\loch\f0\cf4\fs20 08/15/2022\plain\f0\fs20\h ich\f0\dbch\f0\loch\f0\fs2 0\cell \X0A\pard\intbl\ssparaaux 0\s0\li80\ri80\sl24\ql\jason pn\plain\f0\fs24\plain\f0\ fs20\hich\f0\dbch\f0\loch\ f0\cf3\fs20 Status: \plain\f0\fs20\hich\f0\dbc h\f0\loch\f0\cf4\fs20 Signed\plain\f0\fs20\hich\ f0\dbch\f0\loch\f0\fs20\ce ll \X0A\intbl\row \X0A\trowd\trgaph0\lastro w\trpaddl0\trpaddfl3\trpad dr0\trpaddfr3\trleft0\trke ep \X0A\clvertalt\euiug343 \X0A\clvertalt\gjbln28210 \X0A\pard\intbl\ssparaaux 0\s0\sl24\ql\keepn\plain\f 0\fs24\plain\f0\fs20\hich\ f0\dbch\f0\loch\f0\fs20\ce ll \X0A\pard\intbl\ssparaaux 0\s0\li80\ri80\sl24\ql\jason pn\plain\f0\fs24\plain\f0\ fs20\hich\f0\dbch\f0\loch\ f0\cf3\fs20 Chief Nurse Anesthetist: \plain\f0\fs20\hich\f0\dbc h\f0\loch\f0\cf4\fs20 Mohinder Snow, MANAGER OF TRAINING AND DEVELOPMENT - VENDOR MANAGER (Nurse Practitioner)\plain\f0\fs2 0\hich\f0\dbch\f0\loch\f0\ fs20\cell \X0A\intbl\row \X0A\trowd\trgaph0\lastro w\trpaddl0\trpaddfl3\trpad dr0\trpaddfr3\trleft0 \X0A\clvertalt\ \X0A\clvertalt\ptlfz51751 \X0A\pard\intbl\ssparaaux 0\s0\sl24\ql\plain\f0\fs24 \plain\f0\fs20\hich\f0\dbc h\f0\loch\f0\fs20\cell \X0A\pard\intbl\ssparaaux 0\s0\li8 (more content not included)... [facility] [place] 125on 07-22-2022 CA 125 130.0 U/mL High 0.0-35.0 [facility] Comment on above: Result Comment: Test ing performed on the [employer] 5600 using an immunometric methodology. Results obtained by different methods should not be used interchangeably. Performed By: #### C 125O #### [facility] [address] [place] [address] CT Abdomen/Pelvis w/ Contras ton 07-07-2022 CT Abdomen/Pelvis w/ Contrast Patient Name: EVELYN MCACBE Computed Tomography ACCESSION EXAM DATE/TIME PROCEDURE ORDERING PROVIDER [id number] 07/06/2022 23:[address] Abdomen/Pelvis w/ IV SEAN GONZALEZ JOHN M Contrast (IV Onl CPT code 54539 Q9967 Reason For Exam (CT Abdomen/Pelvis w/ IV Contrast (IV Onl) hx of ovarian CA with peritoneal CA recent surgery with Biopsy with worsening pain Report CT ABDOMEN AND PELVIS WITH CONTRAST Indication: 56-year-old; history of ovarian cancer with peritoneal metastasis; abdominal pain Scan Parameters: Multiple axial CT images were obtained of the abdomen and pelvis. Coronal and sagittal reconstructions were reviewed as well. ALARA protocol. Contrast: 75 mL of Isovue-370 IV Comparison: None. FINDINGS: Lung bases: Emphysematous changes are present. Osseous structures: Normal. Liver: The hepatic contour is unremarkable. Gallbladder/Biliary tree: No biliary dilatation. The gallbladder is present, within normal limits. Spleen: Normal. Adrenals: Normal. Pancreas: Normal. Kidneys/Pelvic Organs: The kidneys are symmetric without hydronephrosis. No obstructing renal or ureteral calculus. Bladder contour is within normal limits. Limited evaluation of the uterus. The ovaries are not well visualized. Peritoneal Cavity/Retroperitoneum: There is a small amount of fluid in the pelvic cul-de-sac. There are abnormal lymph nodes, for instance measuring 1.6 cm on image 110:3. A soft tissue density within the mesentery is concerning for a mesenteric implant and it measures 3.5 x 2.3 cm on image 100:3. There is edema of the mesentery. Omental caking Computed Tomography Report is present. GI Tract: The appendix is normal in the right lower quadrant. A large volume of fecal retention is present with distention of the large bowel. The large bowel also has air-fluid levels. The terminal ileum is patent. There appears to be a transition point in the pelvis at the midline (image 61:5 coronal and image 104:3 axial). The large bowel is distended to this level and there is significant narrowing of the wall of the lumen of the bowel with what appears to be bowel wall thickening. Vasculature: Normal contour. Atherosclerotic calcifications are present. IMPRESSION: Abnormal exam. Findings consistent with metastatic disease with history of ovarian malignancy. There are multiple abnormal mesenteric implants and abnormal lymph nodes as well as omental caking. A small amount of fluid is present. The large bowel is distended to the level of the approximate sigmoid rectal junction with findings most concerning for obstruction. There is significant narrowing of the lumen at this site with wall thickening. Adjacent metastatic implants versus abnormal lymph nodes are present. Lack of oral contrast limits overall evaluation at this site. Report Dictated on Final Dictated: 07/06/2022 11:26 pm Dictating Physician: MD DYER JENNIFER R Signed Date and Time: 07/06/2022 11:48 pm Signed by: MD DYER JENNIFER R Transcribed Date and Time: 07/06/2022 11:26 Normal [facility] Complete Urinalysison 2021 Appearance (U) Clear Normal Clear [facility] Comment on above: Result Comment: . Performed By: #### B MP3, HEMOG #### [facility] [address] [place] [address] Bacteria Few Abnormal Negative [facility] Comment on above: Result Comment: . Performed By: #### B MP3, HEMOG #### [facility] [address] [place], [place] Bilirubin,Urine Negative Normal Negative [facility] Comment on above: Result Comment: . Performed By: #### B MP3, HEMOG #### [place] [address] [address] [place], [place] Cast, Hyaline Negative Normal Negative [facility] Comment on above: Result Comment: . Performed By: #### B MP3, HEMOG #### [place] [address] [address] [place], [place] Color (U) Yellow Normal Lt. Yellow [facility] Comment on above: Result Comment: . Performed By: #### B MP3, HEMOG #### [place] [address] [address] [place], [place] Glucose Ql (U) Normal Normal Normal (<70) [facility] Comment on above: Result Comment: . Performed By: #### B MP3, HEMOG #### [place] [address] [address] [place], [place] Ketone,Urine Negative Normal Negative [facility] Comment on above: Result Comment: . Performed By: #### B MP3, HEMOG #### [place] [address] [address] [place], [place] Leukocytes,Urine 75 Ezequiel/uL Abnormal Negative [facility] Comment on above: Result Comment: . Performed By: #### B MP3, HEMOG #### [place] [address] [address] [place], [place] Mucous Threads Few Normal Negative [facility] Comment on above: Result Comment: . Performed By: #### B MP3, HEMOG #### [place] [address] [address] [place], [place] Nitrites,Urine Negative Normal Negative [facility] Comment on above: Result Comment: . Performed By: #### B MP3, HEMOG #### [place] [address] [address] [place], [place] Occult Blood,Urine 0.03 mg/dL Abnormal Negative [facility] Comment on above: Result Comment: . Performed By: #### B MP3, HEMOG #### [place] [address] [address] [place], [place] pH,Urine 5.5 Normal 5.0-8.0 [facility] Comment on above: Result Comment: . Performed By: #### B MP3, HEMOG #### [facility] [address] [place], [place] Protein (U) [Mass/Vol] 20 mg/dL Abnormal Negative [facility] Comment on above: Result Comment: . Performed By: #### B MP3, HEMOG #### [place] [address] [address] [place], [place] RBC, Urine 6 - 10 Abnormal 0-2 [facility] Comment on above: Result Comment: . Performed By: #### B MP3, HEMOG #### [place] [address] [address] [place], [place] Specific [place],Urine > 1.030 Abnormal 1.005 - 1.030 [facility] Comment on above: Result Comment: . Performed By: #### B MP3, HEMOG #### [place] [address] [address] [place], [place] Squamous Epithelial 0 - 2 Normal 3-5 [facility] Comment on above: Result Comment: . Performed By: #### B MP3, HEMOG #### [place] [address] [address] [place], [place] Urobilinogen,Urine 2 mg/dL Abnormal Normal (0-1) [facility] Comment on above: Result Comment: . Performed By: #### B MP3, HEMOG #### [address] [place] [address] [address] [place], [place] WBC, Urine 11 - 25 Abnormal 0-5 [facility] Comment on above: Result Comment: . Performed By: #### B MP3, HEMOG #### [place] [address] [address] [place], [place] Comp Metabolic Panelon 07-06 ALP [Catalytic activity/Vol] 81 U/L Normal 38-126 [facility] Comment on above: Performed By: #### L ACT3, CMP3, LIPA4, HEMDF #### [place] [address] [address] [place], [place] ALT [Catalytic activity/Vol] 141 U/L High 0-34 [facility] Comment on above: Result Comment: The ALT test is performed by an updated assay method. Please note that the reference intervals have been changed and are now sex specific. Performed By: #### L ACT3, CMP3, LIPA4, HEMDF #### [facility] [address] [place], [place] AST [Catalytic activity/Vol] 83 U/L High 15-46 [facility] Comment on above: Performed By: #### L ACT3, CMP3, LIPA4, HEMDF #### [facility] [address] [place], [place] Bilirubin [Mass/Vol] 1.3 mg/dL Normal 0.2-1.3 [facility] Comment on above: Performed By: #### L ACT3, CMP3, LIPA4, HEMDF #### [place] [address] [address] [place], [place] Calcium [Mass/Vol] 9.6 mg/dL Normal 8.4-10.4 [facility] Comment on above: Performed By: #### L ACT3, CMP3, LIPA4, HEMDF #### [place] [address] [address] [place], [place] Glucose [Mass/Vol] 157 mg/dL High 70-100 [facility] Comment on above: Performed By: #### L ACT3, CMP3, LIPA4, HEMDF #### [facility] [address] [place], [place] Protein [Mass/Vol] 7.6 g/dL Normal 6.3-8.2 [facility] Comment on above: Performed By: #### L ACT3, CMP3, LIPA4, HEMDF #### [facility] [address] [place], [place] Urea nitrogen [Mass/Vol] 21 mg/dL High 9-20 [facility] Comment on above: Performed By: #### L ACT3, CMP3, LIPA4, HEMDF #### [place] [address] [address] [place], [place] Anion gap [Moles/Vol] 11 mmol/L Normal 3-13 [facility] Comment on above: Performed By: #### L ACT3, CMP3, LIPA4, HEMDF #### [address] CO2 [Moles/Vol] 19 mmol/L Low 22-30 [facility] Comment on above: Performed By: #### L ACT3, CMP3, LIPA4, HEMDF #### [address] Creatinine [Mass/Vol] 0.78 mg/dL Normal 0.52-1.25 [facility] Comment on above: Performed By: #### L ACT3, CMP3, LIPA4, HEMDF #### [address] GFR/1.73 sq M.predicted among blacks MDRD (S/P/Bld) [Vol rate/Area] mL/min/{1.73_m2} Normal >60 [facility] Comment on above: Performed By: #### L ACT3, CMP3, LIPA4, HEMDF #### [address] [address] [place], [place] GFR/1.73 sq M.predicted among non-blacks MDRD (S/P/Bld) [Vol rate/Area] 84.4 mL/min/{1.73_m2} Normal >60 [facility] Comment on above: Result Comment: KDIG O guidelines provide the following GFR categories: Stage GFR(ml/min/1.73 m2) Terms G1 >=90 Normal or high G2 60-89 Mildly decreased* G3a 45-59 Mildly to moderately decreased G3b 30-44 Moderately to severely decreased G4 15-29 Severely decreased G5 <15 Kidney failure *Relative to young adult level. In the absence of evidence of kidney damage, neither GFR category G1 nor G2 fulfill the criteria for CKD. The CKD-EPI equation is validated in individuals 18 years of age and older. Currently the best equation for estimating glomerular filtration rate (GFR) from serum creatinine in children is the Bedside Escalante equation. It is less accurate in patients with extremes of muscle mass, restriction of dietary protein, ingestion of creatine, extra-renal metabolism of creatinine, or treatment with medications that affect renal tubular creatinine secretion. Performed By: #### L ACT3, CMP3, LIPA4, HEMDF #### [address] Albumin [Mass/Vol] 4.2 g/dL Normal 3.5-5.0 [facility] Comment on above: Performed By: #### L ACT3, CMP3, LIPA4, HEMDF #### [address] Potassium [Moles/Vol] 4.6 mmol/L Normal 3.5-5.1 [facility] Comment on above: Performed By: #### L ACT3, CMP3, LIPA4, HEMDF #### [address] Sodium [Moles/Vol] 132 mmol/L Low 135-145 [facility] Comment on above: Performed By: #### L ACT3, CMP3, LIPA4, HEMDF #### [address] Chloride [Moles/Vol] 102 mmol/L Normal 98-107 [facility] Comment on above: Performed By: #### L ACT3, CMP3, LIPA4, HEMDF #### [address] ED Provider Noteon ED Provider Note [facility] DEPT EMERGENCY DEPARTMENT ENCOUNTER Pt Name: Evelyn Mccabe Birthdate 1965 Date of evaluation: 07/06/2022 Provider: GUSTAVO Harris CHIEF COMPLAINT Chief Complaint Patient presents with Abdominal Pain Pt presents to ED for abdominal pain that started again on Monday. Pt was diagnosed with ovarian cancer this March. Pt had surgery last week and received her first chemo treatment Monday. Pt was discharged Monday, once arriving home abdominal pain started. Pt took oxycodone at 5mg, and zofran at 6:30 pm this evening. HISTORY OF PRESENT ILLNESS (Location/Symptom, Timing/Onset, Context/Setting, Quality,Duration, Modifying Factors, Severity) Note limiting factors. HPI I have seen this patient With supervising physician Does this patient come from an ECF, SNF, Rehab, Detention or other Congregate setting: no (If yes to above patient needs a Covid-19 test) Evelyn Mccabe is a 56 y.o. female who presents to the emergency department complaint of having abdominal discomfort that got worse yesterday. Patient states that she had a pending surgery and had biopsies of abdominal cancer with a history of ovarian cancer. Patient states that shooting oxycodone was increased to 10 mg oxycodone. Patient states that she been constipated for the past 2 days. States her pain is all over her abdomen and rated 10 out of 10. Patient has no vomiting or diarrhea chest pain or shortness of breath. Patient denies any redness or discharge from her surgical site. Patient has no other complaints at this time REVIEW OF SYSTEMS (2+ for level 4; 10+ for level 5) Review of Systems Constitutional: Negative for chills, fatigue and fever. HENT: Negative for congestion, sinus pain, sore throat and voice change. Eyes: Negative. Respiratory: Negative for cough, shortness of breath and wheezing. Cardiovascular: Negative for chest pain, palpitations and leg swelling. Gastrointestinal: Positive for abdominal pain. Negative for abdominal distention, blood in stool, constipation, diarrhea, nausea and vomiting. Endocrine: Negative. Genitourinary: Negative for dysuria, frequency and hematuria. Musculoskeletal: Negative for arthralgias and neck stiffness. Skin: Negative for color change, pallor, rash and wound. Neurological: Negative for dizziness, weakness, light-headedness, numbness and headaches. Psychiatric/Behavioral: Negative. PAST MEDICAL HISTORY Past Medical History: Diagnosis Date Acute bronchiolitis Acute ST elevation myocardial infarction (HCC) Hx of blood clots SURGICAL HISTORY Past Surgical History: Procedure Laterality Date CORONARY STENT PLACEMENT N/A ELBOW SURGERY LAPAROSCOPY 06/28/2022 Diagnostic lap, peritoneal biopsies TUBAL LIGATION CURRENT MEDICATIONS Previous Medications ACETAMINOPHEN (TYLENOL) 500 MG TABLET Take 2 tablets by mouth every 6 hours as needed for Pain ASPIRIN 81 MG EC TABLET Take 81 mg by mouth daily CLOPIDOGREL (PLAVIX) 75 MG TABLET Take 75 mg by mouth daily DOCUSATE SODIUM (COLACE) 100 MG CAPSULE Take 1 capsule by mouth 2 times daily EZETIMIBE (ZETIA) 10 MG TABLET Take 10 mg by mouth daily ONDANSETRON (ZOFRAN) 8 MG TABLET Take 1 tablet by mouth every 8 hours as needed for Nausea or Vomiting OXYCODONE (ROXICODONE) 5 MG IMMEDIATE RELEASE TABLET Take 1 tablet by mouth every 6 hours as needed for Pain for up to 5 days. Intended supply: 5 days. Take lowest dose possible to manage pain PROCHLORPERAZINE (COMPAZINE) 10 MG TABLET Take 1 tablet by mouth every 6 hours as needed (nausea/vomiting) ALLERGIES Atorvastatin, Metoprolol, Trimethoprim, and Sulfamethoxazole FAMILY HISTORY Family History Problem Relation Age of Onset Thyroid Disease Mother Hypertension Father Heart Disease Father Thyroid Disease Sister Thyroid Disease Sister Thyroid Disease Sister Colon Cancer Sister Ovarian Cancer Maternal Grandmother Lung Cancer Maternal Grandfather Heart Disease Maternal Grandfather SOCIAL HISTORY Social History Socioeconomic History Marital status: Spouse name: None Number of children: None Years of education: None Highest education level: None Tobacco Use Smoking status: Every Day Types: Cigarettes Smokeless tobacco: Never Substance and Sexual Activity Alcohol use: Never Drug use: Never SCREENINGS Media Coma Scale Eye Opening: Spontaneous Best Verbal Response: Oriented Best Motor Response: Obeys commands Sirena Coma Scale Score: 15 Patient symptoms are consistent with sepsis, severe sepsis or septic shock (if yes, use use sepsis core measure ): no PHYSICAL EXAM (up to 7 forlevel 4, 8 or more for level 5) ED Triage Vitals [07/06/222021] BP Temp Temp Source Heart Rate Resp SpO2 Height Weight 139/80 98.3 ?F (36.8 ?C) Oral 73 18 100 % 5' 7 (1.702 m) 117 lb (53.1 kg) Physical Exam Constitutional: Appearance: She is well-developed. She is (more content not included)... Normal [facility] ED Provider Note Emergency Department Encounter [facility] EMERGENCY DEPT Patient: Evelyn Mccabe : 1965 Date of Evaluation: 07/06/2022 ED Supervising Physician: Lilli Nelson MD I independently examined and evaluated Evelyn Mccabe. In brief, Evelyn Mccabe is a 56 y.o. female t with a past medical history significant for ovarian cancer with mets to the peritoneum recently s/p laparoscopy that presents to the emergency department for evaluation for abdominal pain. Patient states started having abdominal pain 3 days ago. She states the pain has been progressively getting worse. She states she is on oxycodone at home and has been taking it as instructed but with no improvement. She states she called her surgeon's office because at the time she was not taking the medications like prescribed. She states they instructed her to take medications as prescribed 10 mg. She states despite taking this she is still having severe pain now with nausea and inability to tolerate oral intake as wellas constipation hence coming to the department. She denies fevers, chills, chest pain, shortness of breath, hematemesis, hematochezia, or urinary symptoms. Focused exam: Blood pressure (!) 142/95, pulse 73, temperature 98.3 ?F (36.8 ?C), temperature source Oral, resp. rate 16, height 5' 7 (1.702 m), weight 53.1 kg (117 lb), SpO2 95 %. Qrs-khc-furjqfhsr in no acute distress. Alert and oriented X 3. Lungs clear to auscultation bilaterally with no wheezes or crackles appreciated. Heart rate and rhythm regular with no murmurs. Abdomen soft with diffuse tenderness to palpation, nondistended with positive bowel sounds. No edema appreciated on the lower extremities bilaterally. I performed a substantial portion of the visit including the MDM. Brief ED course/MDM: 56-year-old with recent diagnosis of ovarian cancer with metastasis s/p laparoscopy presenting for evaluation for intractable abdominal pain at home. Presentation is concerning for postsurgical complications, cancer pain, and is likely due to bowel perforation. Work-up in the department with mild hyponatremia with a sodium of 132, mild acidosis with CO2 of 19, no other renal function impairment, mild transaminitis, no lactic acidosis, no pancreatitis, with UTI with no leukocytosis or anemia. Patient with a CT of the abdomen pelvis with findings consistent for metastatic disease with large bowel distention at the sigmoid rectal junction concerning for obstruction. Given these findings patient was started on ceftriaxone for UTI. Gynecology consulted to evaluate the patient. They recommended admission to their service for further evaluation and management plan. Lab and imaging results discussed with the patient. Discussed with patient plan for admission as well as gynecology recommendations. Patient verbalized understanding of information given and agreed to plan. Was admitted in stable condition. Critical care time was 25 minutes. All diagnostic, treatment, and disposition decisions were made by myself in conjunction with the [facility]. For all further details of the patient's emergency department visit, please see their documentation. This will serve as my [facility] Supervisory note and shared attestation. (Please note that portions of this note may have been completed with a voice recognition program. Efforts were made to edit the dictations but occasionally words are mis-transcribed.) Lilli Nelson MD [facility] Lilli Nelson MD 07/07/22 0414 Normal [facility] Hemogram w/ Autodiffon 07-06 Abs Baso Cnt 0.0 10*3/uL Normal 0.0-0.2 [facility] Comment on above: Performed By: #### L ACT3, CMP3, LIPA4, HEMDF #### [address] Abs Neutrophile Cnt 4.6 10*3/uL Normal 1.8-7.0 [facility] Comment on above: Performed By: #### L ACT3, CMP3, LIPA4, HEMDF #### [address] Basophils/100 WBC (Bld) 0.5 % Normal 0.0-2.0 [facility] Comment on above: Performed By: #### L ACT3, CMP3, LIPA4, HEMDF #### [address] Eosinophils (Bld) [#/Vol] 0.0 10*3/uL Normal 0.0-0.5 [facility] Comment on above: Performed By: #### L ACT3, CMP3, LIPA4, HEMDF #### [address] Eosinophils/100 WBC (Bld) 0.0 % Low 1.0-6.0 [facility] Comment on above: Performed By: #### L ACT3, CMP3, LIPA4, HEMDF #### [address] Erythrocyte distribution width (RBC) [Ratio] 14.2 % Normal 11.5-14.5 [facility] Comment on above: Performed By: #### L ACT3, CMP3, LIPA4, HEMDF #### [address] [address] [place], [place] Granulocytes/100 WBC (Bld) 87.2 % High 40.0-80.0 [facility] Comment on above: Performed By: #### L ACT3, CMP3, LIPA4, HEMDF #### [address] [address] [place], [place] Hematocrit (Bld) [Volume fraction] 41.4 % Normal 35.0-47.0 [facility] Comment on above: Performed By: #### L ACT3, CMP3, LIPA4, HEMDF #### [address] [address] [place], [place] Hemoglobin (Bld) [Mass/Vol] 13.7 g/dL Normal 11.7-16.0 [facility] Comment on above: Performed By: #### L ACT3, CMP3, LIPA4, HEMDF #### [address] Lymphocytes (Bld) [#/Vol] 0.6 10*3/uL Low 1.0-4.3 [facility] Comment on above: Performed By: #### L ACT3, CMP3, LIPA4, HEMDF #### [address] Lymphocytes/100 WBC (Bld) 10.9 % Low 20.0-40.0 [facility] Comment on above: Performed By: #### L ACT3, CMP3, LIPA4, HEMDF #### [address] MCH (RBC) [Entitic mass] 26.8 pg Normal 26.0-34.0 [facility] Comment on above: Performed By: #### L ACT3, CMP3, LIPA4, HEMDF #### [address] MCHC 33.0 % Normal 32.0-36.0 [facility] Comment on above: Performed By: #### L ACT3, CMP3, LIPA4, HEMDF #### [address] [place] MCV (RBC) [Entitic vol] 81.2 fL Normal 79.0-98.0 [facility] Comment on above: Performed By: #### L ACT3, CMP3, LIPA4, HEMDF #### [address] Monocytes (Bld) [#/Vol] 0.1 10*3/uL Normal 0.0-0.8 [facility] Comment on above: Performed By: #### L ACT3, CMP3, LIPA4, HEMDF #### [address] Monocytes/100 WBC (Bld) 1.4 % Low 2.0-10.0 [facility] Comment on above: Performed By: #### L ACT3, CMP3, LIPA4, HEMDF #### [address] Platelet mean volume (Bld) [Entitic vol] 8.9 fL Normal 7.4-12.4 [facility] Comment on above: Result Comment: MPV is a calculated measurement using platelet volume ratio. Performed By: #### L ACT3, CMP3, LIPA4, HEMDF #### [address] Platelets (Bld) [#/Vol] 261 10*3/uL Normal 140-440 [facility] Comment on above: Performed By: #### L ACT3, CMP3, LIPA4, HEMDF #### [address] RBC (Bld) [#/Vol] 5.09 10*6/uL Normal 3.80-5.20 [facility] Comment on above: Performed By: #### L ACT3, CMP3, LIPA4, HEMDF #### [address] WBC (Bld) [#/Vol] 5.3 10*3/uL Normal 3.6-10.7 [facility] Comment on above: Performed By: #### L ACT3, CMP3, LIPA4, HEMDF #### [facility] [address] [place], [place] Lactic Acidon 07-06-2022 Lactate [Moles/Vol] 1.6 mmol/L Normal 0.7-2.0 [facility] Comment on above: Performed By: #### L ACT3, CMP3, LIPA4, HEMDF #### [facility] [address] [place], [place] Lipaseon 07-06-2022 Lipase [Catalytic activity/Vol] 27 U/L Normal 23-300 [facility] Comment on above: Performed By: #### L ACT3, CMP3, LIPA4, HEMDF #### [facility] [address] [place], [place] 125on 07-01-2022 [place] 125 330.0 U/mL High 0.0-35.0 [facility] Comment on above: Result Comment: Test ing performed on the [employer] 5600 using an immunometric methodology. Results obtained by different methods should not be used interchangeably. Performed By: #### C 125O #### [facility] [address] [place] [address] #### CMP3, HEMDF #### [facility] [facility] [address] [place], [place] CBC with Auto Differentialon 06-30-2022 Absolute Baso # 0.0 10*3/uL 0 - 0.2 10*3/uL [facility] Absolute Neut # 5.8 10*3/uL 1.8 - 7 10*3/uL [facility] Basophils/100 WBC (Bld) 0.6 % 0 - 2 % [facility] Eosinophils (Bld) [#/Vol] 0.1 10*3/uL 0 - 0.5 10*3/uL [facility] Eosinophils/100 WBC (Bld) 1.0 % 1 - 6 % [facility] Granulocytes/100 WBC (Bld) 71.6 % 40 - 80 % [facility] Hematocrit (Bld) [Volume fraction] 40.6 % 35 - 47 % [facility] Hemoglobin (Bld) [Mass/Vol] 13.2 g/dL 11.7 - 16 g/dL [facility] Lymphocytes (Bld) [#/Vol] 1.7 10*3/uL 1 - 4.3 10*3/uL [facility] Lymphocytes/100 WBC (Bld) 21.3 % 20 - 40 % [facility] MCH (RBC) [Entitic mass] 27.1 pg 26 - 34 pg [facility] MCHC (RBC) [Mass/Vol] 32.5 % 32 - 36 % [facility] MCV (RBC) [Entitic vol] 83.5 fL 79 - 98 fL [facility] Monocytes (Bld) [#/Vol] 0.4 10*3/uL 0 - 0.8 10*3/uL [facility] Monocytes/100 WBC (Bld) 5.5 % 2 - 10 % [facility] Platelet distribution width (Bld) [Ratio] 14.1 % 11.5 - 14.5 % [facility] Platelet mean volume (Bld) [Entitic vol] 8.5 fL 7.4 - 12.4 fL [facility] Comment on above: MPV is a calculated measurement using platelet volume ratio. Platelets (Bld) [#/Vol] 313 10*3/uL 140 - 440 10*3/uL [facility] RBC (Bld) [#/Vol] 4.87 10*6/uL 3.8 - 5.2 10*6/uL [facility] WBC (Bld) [#/Vol] 8.1 10*3/uL 3.6 - 10.7 10*3/uL [facility] by [facility], [address] [place] [id number] [place] [address] Comp Metabolic Panelon 06-30 ALP [Catalytic activity/Vol] 66 U/L Normal 38-126 [facility] Comment on above: Performed By: #### C 125O #### [facility] [address] [place] [address] #### CMP3, HEMDF #### [address] [id number] ALT [Catalytic activity/Vol] 20 U/L Normal 0-34 [facility] Comment on above: Result Comment: The ALT test is performed by an updated assay method. Please note that the reference intervals have been changed and are now sex specific. Performed By: #### C 125O #### [facility] [address] [place] [address] #### CMP3, HEMDF #### [address] [address] [address] [facility], [place] Calcium [Mass/Vol] 9.2 mg/dL Normal 8.4-10.4 [facility] Comment on above: Performed By: #### C 125O #### [address] [place] [address] #### CMP3, HEMDF #### [address] [address] [address] [facility], [place] Glucose [Mass/Vol] 85 mg/dL Normal 70-100 [facility] Comment on above: Performed By: #### C 125O #### [address] [place] [address] #### CMP3, HEMDF #### [address] [address] [address] [facility] [place] Protein [Mass/Vol] 7.2 g/dL Normal 6.3-8.2 [facility] Comment on above: Performed By: #### C 125O #### [address] [place] [address] #### CMP3, HEMDF #### [address] [address] [address] [facility], [place] Urea nitrogen [Mass/Vol] 15 mg/dL Normal 9-20 [facility] Comment on above: Performed By: #### C 125O #### [facility] [address] [place] [address] #### CMP3, HEMDF #### [address] [address] [address] [facility] [place] Anion gap [Moles/Vol] 6 mmol/L Normal 3-13 [facility] Comment on above: Performed By: #### C 125O #### [facility] [address] [place] [address] #### CMP3, HEMDF #### [address] [address] [address] [facility], [place] AST [Catalytic activity/Vol] 45 U/L Normal 15-46 [facility] Comment on above: Performed By: #### C 125O #### [facility] [address] [place] [address] #### CMP3, HEMDF #### [address] [address] [place] [address] Bilirubin [Mass/Vol] 0.4 mg/dL Normal 0.2-1.3 [facility] Comment on above: Performed By: #### C 125O #### [facility] [address] [place] [address] #### CMP3, HEMDF #### [address] [address] [place] [address] CO2 [Moles/Vol] 27 mmol/L Normal 22-30 [facility] Comment on above: Performed By: #### C 125O #### [address] [place] [address] #### CMP3, HEMDF #### [address] [address] Creatinine [Mass/Vol] 0.94 mg/dL Normal 0.52-1.25 [facility] Comment on above: Performed By: #### C 125O #### [facility] [address] [place] [address] #### CMP3, HEMDF #### [address] [address] GFR/1.73 sq M.predicted among blacks MDRD (S/P/Bld) [Vol rate/Area] 78.1 mL/min/{1.73_m2} Normal >60 [facility] Comment on above: Performed By: #### C 125O #### [address] [place] [address] #### CMP3, HEMDF #### [address] [address] GFR/1.73 sq M.predicted among non-blacks MDRD (S/P/Bld) [Vol rate/Area] 67.4 mL/min/{1.73_m2} Normal >60 [facility] Comment on above: Result Comment: KDIG O guidelines provide the following GFR categories: Stage GFR(ml/min/1.73 m2) Terms G1 >=90 Normal or high G2 60-89 Mildly decreased* G3a 45-59 Mildly to moderately decreased G3b 30-44 Moderately to severely decreased G4 15-29 Severely decreased G5 <15 Kidney failure *Relative to young adult level. In the absence of evidence of kidney damage, neither GFR category G1 nor G2 fulfill the criteria for CKD. The CKD-EPI equation is validated in individuals 18 years of age and older. Currently the best equation for estimating glomerular filtration rate (GFR) from serum creatinine in children is the Bedside Escalante equation. It is less accurate in patients with extremes of muscle mass, restriction of dietary protein, ingestion of creatine, extra-renal metabolism of creatinine, or treatment with medications that affect renal tubular creatinine secretion. Performed By: #### C 125O #### [facility] [address] [place] [address] #### CMP3, HEMDF #### [address] [address] Chloride [Moles/Vol] 108 mmol/L High 98-107 [facility] Comment on above: Performed By: #### C 125O #### [facility] [address] [place] [address] #### CMP3, HEMDF #### [address] [address] Potassium [Moles/Vol] 4.2 mmol/L Normal 3.5-5.1 [facility] Comment on above: Performed By: #### C 125O #### [facility] [address] [place] [address] #### CMP3, HEMDF #### [address] [address] Sodium [Moles/Vol] 141 mmol/L Normal 135-145 [facility] Comment on above: Performed By: #### C 125O #### [facility] [address] [place] [address] #### CMP3, HEMDF #### [address] [address] Albumin [Mass/Vol] 4.0 g/dL Normal 3.5-5.0 [facility] Comment on above: Performed By: #### C 125O #### [facility] [address] [place] [address] #### CMP3, HEMDF #### [facility] [address] [place] [address] Comprehensive Metabolic Pane apolinar 06-30-2022 Albumin [Mass/Vol] 4.0 g/dL 3.5 - 5 g/dL [facility] ALP (Bld) [Catalytic activity/Vol] 66 U/L 38 - 126 U/L [facility] ALT [Catalytic activity/Vol] 20 U/L 0 - 34 U/L [facility] Comment on above: The ALT test is perf ormed by an updated assay method. Please note that the reference intervals have been changed and are now sex specific. Anion gap [Moles/Vol] 6 mmol/L 3 - 13 mmol/L [facility] AST [Catalytic activity/Vol] 45 U/L 15 - 46 U/L [facility] Bilirubin [Mass/Vol] 0.4 mg/dL 0.2 - 1 .3 mg/dL [facility] Calcium [Mass/Vol] 9.2 mg/dL 8.4 - 10. 4 mg/dL [facility] Chloride [Moles/Vol] 108 mmol/L High 98 - 10 7 mmol/L [facility] CO2 [Moles/Vol] 27 mmol/L 22 - 30 mmol/L [facility] Creatinine [Mass/Vol] 0.94 mg/dL 0.52 - 1.25 mg/dL [facility] EGFR IF NonAfrican Slovenian 67.4 mL/min 60 - PINF mL/min [facility] Comment on above: KDIGO guidelines pro vide the following GFR categories: Stage GFR(ml/min/1.73 m2) Terms G1 >=90 Normal or high G2 60-89 Mildly decreased* G3a 45-59 Mildly to moderately decreased G3b 30-44 Moderately to severely decreased G4 15-29 Severely decreased G5 <15 Kidney failure *Relative to young adult level. In the absence of evidence of kidney damage, neither GFR category G1 nor G2 fulfill the criteria for CKD. The CKD-EPI equation is validated in individuals 18 years of age and older. Currently the best equation for estimating glomerular filtration rate (GFR) from serum creatinine in children is the Bedside Escalante equation. It is less accurate in patients with extremes of muscle mass, restriction of dietary protein, ingestion of creatine, extra-renal metabolism of creatinine, or treatment with medications that affect renal tubular creatinine secretion. Free PSA/Total PSA [Mass fraction] 7.2 g/dL 6.3 - 8.2 g/dL [facility] GFR/1.73 sq M.predicted among blacks MDRD (S/P/Bld) [Vol rate/Area] 78.1 mL/min/{1.73_m2} 60 - PINF mL/min [facility] Glucose [Mass/Vol] 85 mg/dL 70 - 100 mg/dL [facility] Interpretation and review of laboratory results Abnormal [facility] Potassium [Moles/Vol] 4.2 mmol/L 3.5 - 5.1 mmol/L [facility] Sodium [Moles/Vol] 141 mmol/L 135 - 145 mmol/L [facility] Urea nitrogen (BldV) [Mass/Vol] 15 mg/dL 9 - 20 mg/dL [facility] Test Performed by [address] [facility] Hemogram w/ Autodiffon 06-30 Abs Baso Cnt 0.0 10*3/uL Normal 0.0-0.2 [facility] Comment on above: Performed By: #### C 125O #### [facility] [address] [place] [address] #### CMP3, HEMDF #### [address] [address] Abs Neutrophile Cnt 5.8 10*3/uL Normal 1.8-7.0 [facility] Comment on above: Performed By: #### C 125O #### [facility] [address] [place] [address] #### CMP3, HEMDF #### [address] [address] Basophils/100 WBC (Bld) 0.6 % Normal 0.0-2.0 [facility] Comment on above: Performed By: #### C 125O #### [facility] [address] [place] [address] #### CMP3, HEMDF #### [address] Eosinophils (Bld) [#/Vol] 0.1 10*3/uL Normal 0.0-0.5 [facility] Comment on above: Performed By: #### C 125O #### [facility] [address] [place] [address] #### CMP3, HEMDF #### [facility] [address] [place], [place] Eosinophils/100 WBC (Bld) 1.0 % Normal 1.0-6.0 [facility] Comment on above: Performed By: #### C 125O #### [facility] [address] [place] [address] #### CMP3, HEMDF #### [address] [address] [place], [place] Erythrocyte distribution width (RBC) [Ratio] 14.1 % Normal 11.5-14.5 [facility] Comment on above: Performed By: #### C 125O #### [facility] [address] [place] [address] #### CMP3, HEMDF #### [address] [address] [place], [place] Granulocytes/100 WBC (Bld) 71.6 % Normal 40.0-80.0 [facility] Comment on above: Performed By: #### C 125O #### [place] [address] [place] [address] #### CMP3, HEMDF #### [address] [address] [place], [place] Hematocrit (Bld) [Volume fraction] 40.6 % Normal 35.0-47.0 [facility] Comment on above: Performed By: #### C 125O #### [facility] [address] [place] [address] #### CMP3, HEMDF #### [address] [address] [place], [place] Hemoglobin (Bld) [Mass/Vol] 13.2 g/dL Normal 11.7-16.0 [facility] Comment on above: Performed By: #### C 125O #### [facility] [address] [place] [address] #### CMP3, HEMDF #### [facility] [address] [place], [place] Lymphocytes (Bld) [#/Vol] 1.7 10*3/uL Normal 1.0-4.3 [facility] Comment on above: Performed By: #### C 125O #### [facility] [address] [place] [address] #### CMP3, HEMDF #### [address] [address] [address] [place], [place] Lymphocytes/100 WBC (Bld) 21.3 % Normal 20.0-40.0 [facility] Comment on above: Performed By: #### C 125O #### [place] [address] [place] [address] #### CMP3, HEMDF #### [address] [address] [address] [place] MCH (RBC) [Entitic mass] 27.1 pg Normal 26.0-34.0 [facility] Comment on above: Performed By: #### C 125O #### [facility] [address] [place] [address] #### CMP3, HEMDF #### [address] [address] [address] [place] MCHC 32.5 % Normal 32.0-36.0 [facility] Comment on above: Performed By: #### C 125O #### [place] [address] [place] [address] #### CMP3, HEMDF #### [address] MCV (RBC) [Entitic vol] 83.5 fL Normal 79.0-98.0 [facility] Comment on above: Performed By: #### C 125O #### [place] [address] [place] [address] #### CMP3, HEMDF #### [address] [address] [address] [place], [place] Monocytes (Bld) [#/Vol] 0.4 10*3/uL Normal 0.0-0.8 [facility] Comment on above: Performed By: #### C 125O #### [facility] [address] [place] [address] #### CMP3, HEMDF #### [address] [address] [place], [place] Monocytes/100 WBC (Bld) 5.5 % Normal 2.0-10.0 [facility] Comment on above: Performed By: #### C 125O #### [place] [address] [place] [address] #### CMP3, HEMDF #### [address] [address] [place], [place] Platelet mean volume (Bld) [Entitic vol] 8.5 fL Normal 7.4-12.4 [facility] Comment on above: Result Comment: MPV is a calculated measurement using platelet volume ratio. Performed By: #### C 125O #### [place] [address] [place] [address] #### CMP3, HEMDF #### [address] [address] [address] [place] Platelets (Bld) [#/Vol] 313 10*3/uL Normal 140-440 [facility] Comment on above: Performed By: #### C 125O #### [place] [address] [place] [address] #### CMP3, HEMDF #### [address] [address] [address] [place] RBC (Bld) [#/Vol] 4.87 10*6/uL Normal 3.80-5.20 [facility] Comment on above: Performed By: #### C 125O #### [place] [address] [place] [address] #### CMP3, HEMDF #### [address] [address] [place], [place] WBC (Bld) [#/Vol] 8.1 10*3/uL Normal 3.6-10.7 [facility] Comment on above: Performed By: #### C 125O #### [facility] [address] [place] [address] #### CMP3, HEMDF #### [facility] [address] [place] [address] Basic Metabolic Panelon 09-1 -2021 Anion gap [Moles/Vol] 9 mmol/L Normal 3-13 [facility] Comment on above: Performed By: #### B MP3, HEMOG #### [facility] [address] [place] [address] Calcium [Mass/Vol] 9.2 mg/dL Normal 8.4-10.4 [facility] Comment on above: Performed By: #### B MP3, HEMOG #### [facility] [address] [place] [address] CO2 [Moles/Vol] 22 mmol/L Normal 22-30 [facility] Comment on above: Performed By: #### B MP3, HEMOG #### [facility] [address] [place] [address] Creatinine [Mass/Vol] 0.89 mg/dL Normal 0.52-1.25 [facility] Comment on above: Performed By: #### B MP3, HEMOG #### [facility] [address] [place] [address] GFR/1.73 sq M.predicted among blacks MDRD (S/P/Bld) [Vol rate/Area] 83.5 mL/min/{1.73_m2} Normal >60 [facility] Comment on above: Performed By: #### B MP3, HEMOG #### [facility] [address] [place] [address] GFR/1.73 sq M.predicted among non-blacks MDRD (S/P/Bld) [Vol rate/Area] 72.0 mL/min/{1.73_m2} Normal >60 [facility] Comment on above: Result Comment: KDIG O guidelines provide the following GFR categories: Stage GFR(ml/min/1.73 m2) Terms G1 >=90 Normal or high G2 60-89 Mildly decreased* G3a 45-59 Mildly to moderately decreased G3b 30-44 Moderately to severely decreased G4 15-29 Severely decreased G5 <15 Kidney failure *Relative to young adult level. In the absence of evidence of kidney damage, neither GFR category G1 nor G2 fulfill the criteria for CKD. The CKD-EPI equation is validated in individuals 18 years of age and older. Currently the best equation for estimating glomerular filtration rate (GFR) from serum creatinine in children is the Bedside Escalante equation. It is less accurate in patients with extremes of muscle mass, restriction of dietary protein, ingestion of creatine, extra-renal metabolism of creatinine, or treatment with medications that affect renal tubular creatinine secretion. Performed By: #### B MP3, HEMOG #### [facility] [address] [place], [place] Glucose [Mass/Vol] 102 mg/dL High 70-100 [facility] Comment on above: Performed By: #### B MP3, HEMOG #### [facility] [address] [place], [place] Urea nitrogen [Mass/Vol] 9 mg/dL Normal 9-20 [facility] Comment on above: Performed By: #### B MP3, HEMOG #### [facility] [address] [place], [place] Chloride [Moles/Vol] 107 mmol/L Normal 98-107 [facility] Comment on above: Performed By: #### B MP3, HEMOG #### [facility] [address] [place], [place] Potassium [Moles/Vol] 3.9 mmol/L Normal 3.5-5.1 [facility] Comment on above: Performed By: #### B MP3, HEMOG #### [facility] [address] [place], [place] Sodium [Moles/Vol] 138 mmol/L Normal 135-145 [facility] Comment on above: Performed By: #### B MP3, HEMOG #### [facility] [address] [place], [place] Anion gap [Moles/Vol] 9 mmol/L 3 - 13 mmol/L [facility] Calcium [Mass/Vol] 9.2 mg/dL 8.4 - 10. 4 mg/dL [facility] Chloride [Moles/Vol] 107 mmol/L 98 - 10 7 mmol/L [facility] CO2 [Moles/Vol] 22 mmol/L 22 - 30 mmol/L [facility] Creatinine [Mass/Vol] 0.89 mg/dL 0.52 - 1.25 mg/dL [facility] EGFR IF NonAfrican Slovenian 72.0 mL/min 60 - PINF mL/min [facility] Comment on above: KDIGO guidelines pro vide the following GFR categories: Stage GFR(ml/min/1.73 m2) Terms G1 >=90 Normal or high G2 60-89 Mildly decreased* G3a 45-59 Mildly to moderately decreased G3b 30-44 Moderately to severely decreased G4 15-29 Severely decreased G5 <15 Kidney failure *Relative to young adult level. In the absence of evidence of kidney damage, neither GFR category G1 nor G2 fulfill the criteria for CKD. The CKD-EPI equation is validated in individuals 18 years of age and older. Currently the best equation for estimating glomerular filtration rate (GFR) from serum creatinine in children is the Bedside Escalante equation. It is less accurate in patients with extremes of muscle mass, restriction of dietary protein, ingestion of creatine, extra-renal metabolism of creatinine, or treatment with medications that affect renal tubular creatinine secretion. GFR/1.73 sq M.predicted among blacks MDRD (S/P/Bld) [Vol rate/Area] 83.5 mL/min/{1.73_m2} 60 - PINF mL/min [facility] Glucose [Mass/Vol] 102 mg/dL High 70 - 100 mg/dL [facility] Interpretation and review of laboratory results Abnormal [facility] Potassium [Moles/Vol] 3.9 mmol/L 3.5 - 5.1 mmol/L [facility] Sodium [Moles/Vol] 138 mmol/L 135 - 145 mmol/L [facility] Urea nitrogen (BldV) [Mass/Vol] 9 mg/dL 9 - 20 mg/dL [facility] Test Performed by [address] [address] [facility] CBCon 06-28-2022 Hematocrit (Bld) [Volume fraction] 39.7 % 35 - 47 % [facility] Hemoglobin (Bld) [Mass/Vol] 13.4 g/dL 11.7 - 16 g/dL [facility] MCH (RBC) [Entitic mass] 27.9 pg 26 - 34 pg [facility] MCHC (RBC) [Mass/Vol] 33.8 % 32 - 36 % [facility] MCV (RBC) [Entitic vol] 82.4 fL 79 - 98 fL [facility] Platelet distribution width (Bld) [Ratio] 14.1 % 11.5 - 14.5 % [facility] Platelet mean volume (Bld) [Entitic vol] 8.2 fL 7.4 - 12.4 fL [facility] Comment on above: MPV is a calculated measurement using platelet volume ratio. Platelets (Bld) [#/Vol] 340 10*3/uL 140 - 440 10*3/uL [facility] RBC (Bld) [#/Vol] 4.81 10*6/uL 3.8 - 5.2 10*6/uL [facility] WBC (Bld) [#/Vol] 7.4 10*3/uL 3.6 - 10.7 10*3/uL [facility] Test Performed by [address] Hemogramon 06-28-2022 Erythrocyte distribution width (RBC) [Ratio] 14.1 % Normal 11.5-14.5 [facility] Comment on above: Performed By: #### B MP3, HEMOG #### [address] [address] Hematocrit (Bld) [Volume fraction] 39.7 % Normal 35.0-47.0 [facility] Comment on above: Performed By: #### B MP3, HEMOG #### [address] [address] Hemoglobin (Bld) [Mass/Vol] 13.4 g/dL Normal 11.7-16.0 [facility] Comment on above: Performed By: #### B MP3, HEMOG #### [address] [id number] MCH (RBC) [Entitic mass] 27.9 pg Normal 26.0-34.0 [facility] Comment on above: Performed By: #### B MP3, HEMOG #### [facility] [address] [place], [place] MCHC 33.8 % Normal 32.0-36.0 [facility] Comment on above: Performed By: #### B MP3, HEMOG #### [facility] [address] [place], [place] MCV (RBC) [Entitic vol] 82.4 fL Normal 79.0-98.0 [facility] Comment on above: Performed By: #### B MP3, HEMOG #### [place] [address] [address] [place], [place] Platelet mean volume (Bld) [Entitic vol] 8.2 fL Normal 7.4-12.4 [facility] Comment on above: Result Comment: MPV is a calculated measurement using platelet volume ratio. Performed By: #### B MP3, HEMOG #### [address] [address] [address] [place], [place] Platelets (Bld) [#/Vol] 340 10*3/uL Normal 140-440 [facility] Comment on above: Performed By: #### B MP3, HEMOG #### [address] [address] [address] [place], [place] RBC (Bld) [#/Vol] 4.81 10*6/uL Normal 3.80-5.20 [facility] Comment on above: Performed By: #### B MP3, HEMOG #### [address] [address] [address] [place], [place] WBC (Bld) [#/Vol] 7.4 10*3/uL Normal 3.6-10.7 [facility] Comment on above: Performed By: #### B MP3, HEMOG #### [address] [address] [address] [place], [place] OPERATIVE REPORTon 2 Ordered by an unspec ified provider. [facility] Op Noteon 06-28-2022 Op Note PATIENT: Sandee MCCABE ADMISSION DATE: 06/28/2022 SURGERY DATE: 06/28/2022 DATE OF : 1965 AGE: 56 ADMITTING PHYSICIAN: Addy Hyatt MD ATTENDING PHYSICIAN: Addy Hyatt MD DICTATING PHYSICIAN: Addy Hyatt MD OPERATIVE RECORD Procedure: LAPAROSCOPY WITH PERITONEAL BIOPSY. Preoperative Diagnosis: Malignant ascites. Postoperative Diagnosis: Stage IIIB ovarian carcinoma. Anesthesia: General anesthesia. Description of Findings: The patient did have about 1 L of ascites in the abdominal cavity. She had diffuse carcinomatosis with a plaque like distribution of tumor involving the pelvic floor, diaphragm as well as subparietal-peritoneal surfaces. There was also tumor noted in the small bowel mesentery. Both ovaries were visualized. The uterus, however, was coated with a malignancy. The patient was not deemed to be surgically debulked at this time and I thought she was a good candidate for neoadjuvant chemotherapy. Description of Procedure: The patient was identified and brought to the operating room and after administration of general anesthesia, underwent abdominoperineal and vaginal prep and drape. A Cobos catheter was placed in the bladder and manipulator in the uterus. Exam under anesthesia did reveal a large amount of cul-de-sac time-out had been performed. Using a knife, a small incision was made in the umbilicus and using the Optiview system, the abdominal cavity was entered under direct vision, insufflated with CO2. A 5 mm port was placed in the left upper quadrant as well. The ascites was evacuated. The diffuse carcinomatosis like picture was seen involving the diaphragms, parietal and distal peritoneum as well as the pelvic floor. No distinct tumor nodules could be resected up. Several biopsies were obtained and sent to [facility]. Hemostasis was noted. All instruments were removed from the abdominal cavity. The defects in the skin were closed after the trocars were removed with subcuticular 4-0 Monocryl and Dermabond. All instruments were removed from the bladder and the vagina. She was taken to the recovery room in stable condition. The patient will be started on neoadjuvant chemotherapy with carboplatin and Taxol and will await results of genetic testing as well as HRD. cc: Dr. Colin Sofia in [facility] Job ID: [id number] Addy Hyatt MD DOD:06/28/2022 03:50 P /jacob DOT:06/28/2022 07:24 P Job Number: [id number] Document Number: [id number] cc: Addy Hyatt MD [address] [facility] [id number] Kiki * DO Tr Normal [facility] , urine POCTon 06-16 Beta HCG ( test) Ql (U) Negative Negative [facility] Work Phone: Beta HCG ( test) Ql (U) [id number] [facility] Work Phone: Interpretation and review of laboratory results Normal [facility] Work Phone: Negative QC Pass/Fail Pass [facility] Work Phone: Positive QC Pass/Fail Pass [facility] Work Phone: [facility] Work Phone: VLAD STUDIO 3on 2 [facility] Work Phone: Radiology Study observation (narrative) [facility] Work Phone: Surgical Pathologyon 022 Surgical Pathology [id number] [facility] DEPART[facility] OF [facility] PATHOLOGY AND LABORATORY MEDICINE [address] [place] [address] [id number] FINAL SURGICAL PATHOLOGY REPORT NAME: EVELYN MCCABE : 1965 56 Y F BILLING NO.: [id number] LOCATION: [facility] 1PAC [id number] PROCEDURE 06/28/2022 DATE: SURGEON: ADDY HYATT MD RECEIVED 06/29/2022 DATE: ATTENDING: ADDY HYATT MD REPORT DATE: 07/01/2022 COPIES TO: DIAGNOSIS: PERITONEUM, BIOPSIES - HIGH-GRADE ADENOCARCINOMA. SEE COMMENT. 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 These malignant cells stain positive with CK7, PAX 8, patchy positivity with calretinin and weak focal ER positivity, and negative for CK20, GATA3 and WT1. A p53 demonstrates a null phenotype. 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 3/3 Intradepartmental Consultation: BELINDA FLORES M.D.; Signature> CURT VALENZUELA M.D. CLINICAL INFORMATION: Ovarian mass SPECIMEN: PERITONEUM, BIOPSY GROSS DESCRIPTION: Received in formalin, labeled peritoneal biopsies , are multiple irregularly-shaped fragments of collado soft tissue aggregating to 0.8 x 0.8 x 0.3 cm. All submitted in one cassette. BSC/0RW Disclaimer: The following statement applies to all immunohistochemistry, in situ hybridization, molecular studies, and immunofluorescence testing. The use of one or more reagents in the above tests is regulated as an analyte specific reagent (ASR). These tests were developed and their performance characteristics determined by the clinical laboratories of [facility]. They have not been cleared by the US Food and Drug Administration (FDA). The FDA has determined that such clearance or approval is not necessary. All the above immunostains were performed on paraffin embedded tissue. Appropriate positive and negative controls (where applicable) were run in parallel with the patient's specimen; these controls showed expected staining pattern, with acceptable intensity of staining. Immunohistochemical assays have not been validated on decalcified tissues. Results should be interpreted with caution given the raised possibility of false negativity on decalcified specimens. Professional Performing Location: [address] [address]. DEPARTMENT OF PATHOLOGY AND LABORATORY MEDICINE [place], [place] [address] [email or web address] Normal [facility] TS GELon 06-28-2022 TS GEL ABO Group: A Rh, Gel: NEG Antibody Screen Gel: NEG Normal [facility] Comment on above: Performed By: #### B MP3, HEMOG #### [address] [address] TYPE AND SCREENon 06-28-2022 ABO Grouping A [facility] Rh Type Negative [facility] Test Performed by [facility], [address] [place] [address] LAB [facility] X[facility] Finger - right AP and Lat eral and obliqueon 01-04-2021 IMPRESSION: No acute osseous abnormality. [employer] Merchandiser: PSCB Transcribe Date/Time: Jan 04 2021 8:26A Dictated by : RUBI RODRIGUEZ MD This examination was interpreted and the report reviewed and electronically signed by: RUBI RODRIGUEZ MD on Jan 04 2021 8:28AM [facility] DIVISION OF RADIOLOGY * * *Final Report* * * DATE OF EXAM: Jan 04 2021 8:24AM WOX [id number] - XR DIGIT 3V FRONTAL/LAT/OBL RT / PROCEDURE REASON: Finger injury, initial encounter * * * * Physician Interpretation * * * * EXAMINATION: XR DIGIT 3V FRONTAL/LAT/OBL RT CLINICAL HISTORY: pt states hit her hand against a door 3 weeks ago, pain in right 5th finger Finger injury, initial encounter Technique: XR DIGIT 3V FRONTAL/LAT/OBL RT -- RIGHT hand 5th digit with 3 views on 3 images Comparison: None RESULT: No acute fracture or dislocation. The joint spaces of the digits are maintained without significant degenerative spurring. No radiopaque foreign body. DIVISION OF RADIOLOGY Provider, [facility] - 01/04/2021 * * *Final Report* * * DATE OF EXAM: Jan 04 2021 8:24AM WOX 5319 - XR DIGIT 3V FRONTAL/LAT/OBL RT / PROCEDURE REASON: Finger injury, initial encounter * * * * Physician Interpretation * * * * EXAMINATION: XR DIGIT 3V FRONTAL/LAT/OBL RT CLINICAL HISTORY: pt states hit her hand against a door 3 weeks ago, pain in right 5th finger Finger injury, initial encounter Technique: XR DIGIT 3V FRONTAL/LAT/OBL RT -- RIGHT hand 5th digit with 3 views on 3 images Comparison: None RESULT: No acute fracture or dislocation. The joint spaces of the digits are maintained without significant degenerative spurring. No radiopaque foreign body. IMPRESSION IMPRESSION: No acute osseous abnormality. Produce Field Merchandiser: LESTER Transcribe Date/Time: Jan 04 2021 8:26A Dictated by : RUBI RODRIGUEZ MD This examination was interpreted and the report reviewed and electronically signed by: RUBI RODRIGUEZ MD on Jan 04 2021 8:28AM EST [facility] Radiology Study observation (narrative) [facility] XR Finger - right AP and Lat eral and obliqueOrdered By: [facility] Provider on 01-04-2021 [facility] Vital Signs Date Time Vital Sign Value Performing Clinician Gloria lewis 08-05-2024 10:20-0400 Body mass index (BMI) [Ratio] 17.07 kg/m2 Bk [employer] Work Phone: [facility] 08-05-2024 10:20-0400 Body temperature 97.7 [degF] Bk Hiveoo DO Work Phone: [facility] 08-05-2024 10:20-0400 Body weight 49.44 kg Bk [employer] Work Phone: [facility] 08-05-2024 10:20-0400 Diastolic blood pressure 70 mm[Hg] Bk [employer] Work Phone: [facility] 08-05-2024 10:20-0400 Heart rate 68 /min Bk [employer] Work Phone: [facility] 08-05-2024 10:20-0400 SaO2% (BldA) [Mass fraction] 100 % Bk Lenz DO Work Phone: [facility] 08-05-2024 10:20-0400 Systolic blood pressure 106 mm[Hg] Bk Lenz DO Work Phone: [facility] 07-04-2024 09:03-0400 Body mass index (BMI) [Ratio] 16.92 kg/m2 Treatment Wstr Work Phone: [facility] 07-04-2024 09:03-0400 Body temperature 97.59 [degF] Treatment Wstr Work Phone: [facility] 07-04-2024 09:03-0400 Body weight 48.99 kg Treatment Wstr Work Phone: [facility] 07-04-2024 09:03-0400 Diastolic blood pressure 70 mm[Hg] Treatment Wstr Work Phone: [facility] 07-04-2024 09:03-0400 Heart rate 65 /min Treatment Wstr Work Phone: [facility] 07-04-2024 09:03-0400 Respiratory rate 18 /min Treatment Wstr Work Phone: [facility] 07-04-2024 09:03-0400 SaO2% (BldA) [Mass fraction] 100 % Treatment Wstr Work Phone: [facility] 07-04-2024 09:03-0400 Systolic blood pressure 105 mm[Hg] Treatment Wstr Work Phone: [facility] 06-28-2024 08:00-0400 Body temperature 97.11 [degF] Treatment Wstr Work Phone: [facility] 06-28-2024 08:00-0400 Diastolic blood pressure 59 mm[Hg] Treatment Wstr Work Phone: [facility] 06-28-2024 08:00-0400 Heart rate 82 /min Treatment Wstr Work Phone: [facility] 06-28-2024 08:00-0400 SaO2% (BldA) [Mass fraction] 97 % Treatment Wstr Work Phone: [facility] 06-28-2024 08:00-0400 Systolic blood pressure 94 mm[Hg] Treatment Wstr Work Phone: [facility] 06-26-2024 08:13-0400 Body mass index (BMI) [Ratio] 18.56 kg/m2 Lab/Port Wstr Work Phone: [facility] 06-26-2024 08:13-0400 Body temperature 97.2 [degF] Bk Masci DO Work Phone: [facility] 06-26-2024 08:13-0400 Body weight 53.75 kg Lab/Port Wstr Work Phone: [facility] 06-26-2024 08:13-0400 Diastolic blood pressure 71 mm[Hg] Bk Masci DO Work Phone: [facility] 06-26-2024 08:13-0400 Heart rate 80 /min Bk Masci DO Work Phone: [facility] 06-26-2024 08:13-0400 SaO2% (BldA) [Mass fraction] 100 % Bk Masci DO Work Phone: [facility] 06-26-2024 08:13-0400 Systolic blood pressure 103 mm[Hg] Bk Masci DO Work Phone: [facility] 06-13-2024 09:02-0400 Body mass index (BMI) [Ratio] 18.4 kg/m2 Treatment Wstr Work Phone: [facility] 06-13-2024 09:02-0400 Body temperature 98.1 [degF] Treatment Wstr Work Phone: [facility] 06-13-2024 09:02-0400 Body weight 53.3 kg Treatment Wstr Work Phone: [facility] 06-13-2024 09:02-0400 Diastolic blood pressure 78 mm[Hg] Treatment Wstr Work Phone: [facility] 06-13-2024 09:02-0400 Heart rate 69 /min Treatment Wstr Work Phone: [facility] 06-13-2024 09:02-0400 Respiratory rate 20 /min Treatment Wstr Work Phone: [facility] 06-13-2024 09:02-0400 Systolic blood pressure 107 mm[Hg] Treatment Wstr Work Phone: [facility] 06-06-2024 08:22-0400 Body mass index (BMI) [Ratio] 18.79 kg/m2 Treatment Wstr Work Phone: [facility] 06-06-2024 08:22-0400 Body temperature 97.3 [degF] Treatment Wstr Work Phone: [facility] 06-06-2024 08:22-0400 Body weight 54.43 kg Treatment Wstr Work Phone: [facility] 06-06-2024 08:22-0400 Diastolic blood pressure 69 mm[Hg] Treatment Wstr Work Phone: [facility] 06-06-2024 08:22-0400 Heart rate 71 /min Treatment Wstr Work Phone: [facility] 06-06-2024 08:22-0400 SaO2% (BldA) [Mass fraction] 99 % Treatment Wstr Work Phone: [facility] 06-06-2024 08:22-0400 Systolic blood pressure 95 mm[Hg] Treatment Wstr Work Phone: [facility] 05-31-2024 15:35-0400 Body mass index (BMI) [Ratio] 18.4 kg/m2 Bk Lenz DO Work Phone: [facility] 05-31-2024 15:35-0400 Body temperature 97.39 [degF] Bk Lenz DO Work Phone: [facility] 05-31-2024 15:35-0400 Body weight 53.3 kg Bk Lenz DO Work Phone: [facility] 05-31-2024 15:35-0400 Diastolic blood pressure 77 mm[Hg] Bk Lenz DO Work Phone: [facility] 05-31-2024 15:35-0400 Heart rate 75 /min Bk Lenz DO Work Phone: [facility] 05-31-2024 15:35-0400 SaO2% (BldA) [Mass fraction] 100 % Bk Lenz DO Work Phone: [facility] 05-31-2024 15:35-0400 Systolic blood pressure 120 mm[Hg] Bk Lenz DO Work Phone: [facility] 05-23-2024 09:25-0400 Body mass index (BMI) [Ratio] 18.72 kg/m2 Treatment Wstr Work Phone: [facility] 05-23-2024 09:25-0400 Body temperature 97.11 [degF] Treatment Wstr Work Phone: [facility] 05-23-2024 09:25-0400 Body weight 54.2 kg Treatment Wstr Work Phone: [facility] 05-23-2024 09:25-0400 Diastolic blood pressure 75 mm[Hg] Treatment Wstr Work Phone: [facility] 05-23-2024 09:25-0400 Heart rate 73 /min Treatment Wstr Work Phone: [facility] 05-23-2024 09:25-0400 SaO2% (BldA) [Mass fraction] 100 % Treatment Wstr Work Phone: [facility] 05-23-2024 09:25-0400 Systolic blood pressure 98 mm[Hg] Treatment Wstr Work Phone: [facility] 05-16-2024 09:27-0400 Body temperature 97.3 [degF] Treatment Wstr Work Phone: [facility] 05-16-2024 09:27-0400 Diastolic blood pressure 76 mm[Hg] Treatment Wstr Work Phone: [facility] 05-16-2024 09:27-0400 Heart rate 63 /min Treatment Wstr Work Phone: [facility] 05-16-2024 09:27-0400 Respiratory rate 16 /min Treatment Wstr Work Phone: [facility] 05-16-2024 09:27-0400 SaO2% (BldA) [Mass fraction] 100 % Treatment Wstr Work Phone: [facility] 05-16-2024 09:27-0400 Systolic blood pressure 118 mm[Hg] Treatment Wstr Work Phone: [facility] 05-10-2024 09:00-0400 Body temperature 97.39 [degF] Treatment Wstr Work Phone: [facility] 05-10-2024 09:00-0400 Diastolic blood pressure 65 mm[Hg] Treatment Wstr Work Phone: [facility] 05-10-2024 09:00-0400 Heart rate 74 /min Treatment Wstr Work Phone: [facility] 05-10-2024 09:00-0400 Systolic blood pressure 136 mm[Hg] Treatment Wstr Work Phone: [facility] 05-09-2024 11:13-0400 Body mass index (BMI) [Ratio] 18.48 kg/m2 Bk Masci DO Work Phone: [facility] 05-09-2024 11:13-0400 Body temperature 97 [degF] Bk Masci DO Work Phone: [facility] 05-09-2024 11:13-0400 Body weight 53.52 kg Bk Masci DO Work Phone: [facility] 05-09-2024 11:13-0400 Diastolic blood pressure 78 mm[Hg] Bk Masci DO Work Phone: [facility] 05-09-2024 11:13-0400 Heart rate 75 /min Bk Masci DO Work Phone: [facility] 05-09-2024 11:13-0400 SaO2% (BldA) [Mass fraction] 100 % Bk Masci DO Work Phone: [facility] 05-09-2024 11:13-0400 Systolic blood pressure 119 mm[Hg] Bk Mauricei DO Work Phone: [facility] 04-26-2024 14:27-0400 Body temperature 97.5 [degF] Treatment Wstr Work Phone: [facility] 04-26-2024 14:27-0400 Diastolic blood pressure 71 mm[Hg] Treatment Wstr Work Phone: [facility] 04-26-2024 14:27-0400 Heart rate 71 /min Treatment Wstr Work Phone: [facility] 04-26-2024 14:27-0400 SaO2% (BldA) [Mass fraction] 97 % Treatment Wstr Work Phone: [facility] 04-26-2024 14:27-0400 Systolic blood pressure 109 mm[Hg] Treatment Wstr Work Phone: [facility] 04-26-2024 14:22-0400 Body mass index (BMI) [Ratio] 18.25 kg/m2 Treatment Wstr Work Phone: [facility] 04-26-2024 14:22-0400 Body weight 52.84 kg Treatment Wstr Work Phone: [facility] 04-19-2024 10:00-0400 Body mass index (BMI) [Ratio] 17.7 kg/m2 Treatment Wstr Work Phone: [facility] 04-19-2024 10:00-0400 Body temperature 97.59 [degF] Treatment Wstr Work Phone: [facility] 04-19-2024 10:00-0400 Body weight 51.26 kg Treatment Wstr Work Phone: [facility] 04-19-2024 10:00-0400 Diastolic blood pressure 66 mm[Hg] Treatment Wstr Work Phone: [facility] 04-19-2024 10:00-0400 Heart rate 74 /min Treatment Wstr Work Phone: [facility] 04-19-2024 10:00-0400 SaO2% (BldA) [Mass fraction] 99 % Treatment Wstr Work Phone: [facility] 04-19-2024 10:00-0400 Systolic blood pressure 113 mm[Hg] Treatment Wstr Work Phone: [facility] 04-11-2024 08:27-0400 Body temperature 97.81 [degF] Treatment Wstr Work Phone: [facility] 04-11-2024 08:27-0400 Diastolic blood pressure 69 mm[Hg] Treatment Wstr Work Phone: [facility] 04-11-2024 08:27-0400 Heart rate 77 /min Treatment Wstr Work Phone: [facility] 04-11-2024 08:27-0400 Respiratory rate 16 /min Treatment Wstr Work Phone: [facility] 04-11-2024 08:27-0400 SaO2% (BldA) [Mass fraction] 100 % Treatment Wstr Work Phone: [facility] 04-11-2024 08:27-0400 Systolic blood pressure 121 mm[Hg] Treatment Wstr Work Phone: [facility] 04-10-2024 13:14-0400 Body mass index (BMI) [Ratio] 18.25 kg/m2 Familia Madden MANAGER OF TRAINING AND DEVELOPMENT.VENDOR MANAGER Work Phone: [facility] 04-10-2024 13:14-0400 Body temperature 97.9 [degF] Familia Madden MANAGER OF TRAINING AND DEVELOPMENT.VENDOR MANAGER Work Phone: [facility] 04-10-2024 13:14-0400 Body weight 52.84 kg [place]ing Madden MANAGER OF TRAINING AND DEVELOPMENT.VENDOR MANAGER Work Phone: [facility] 04-10-2024 13:14-0400 Diastolic blood pressure 71 mm[Hg] Familia Madden MANAGER OF TRAINING AND DEVELOPMENT.VENDOR MANAGER Work Phone: [facility] 04-10-2024 13:14-0400 Heart rate 79 /min Familia Madden MANAGER OF TRAINING AND DEVELOPMENT.VENDOR MANAGER Work Phone: [facility] 04-10-2024 13:14-0400 SaO2% (BldA) [Mass fraction] 99 % Familia Madden MANAGER OF TRAINING AND DEVELOPMENT.VENDOR MANAGER Work Phone: [facility] 04-10-2024 13:14-0400 Systolic blood pressure 108 mm[Hg] Familia Madden MANAGER OF TRAINING AND DEVELOPMENT.VENDOR MANAGER Work Phone: [facility] 03-28-2024 09:20-0400 Body mass index (BMI) [Ratio] 17.7 kg/m2 Treatment Wstr Work Phone: [facility] 03-28-2024 09:20-0400 Body temperature 97.2 [degF] Treatment Wstr Work Phone: [facility] 03-28-2024 09:20-0400 Body weight 51.26 kg Treatment Wstr Work Phone: [facility] 03-28-2024 09:20-0400 Diastolic blood pressure 75 mm[Hg] Treatment Wstr Work Phone: [facility] 03-28-2024 09:20-0400 Heart rate 67 /min Treatment Wstr Work Phone: [facility] 03-28-2024 09:20-0400 Respiratory rate 18 /min Treatment Wstr Work Phone: [facility] 03-28-2024 09:20-0400 Systolic blood pressure 122 mm[Hg] Treatment Wstr Work Phone: [facility] 03-21-2024 09:15-0400 Body temperature 98.2 [degF] Treatment Wstr Work Phone: [facility] 03-21-2024 09:15-0400 Diastolic blood pressure 70 mm[Hg] Treatment Wstr Work Phone: [facility] 03-21-2024 09:15-0400 Heart rate 72 /min Treatment Wstr Work Phone: [facility] 03-21-2024 09:15-0400 Respiratory rate 16 /min Treatment Wstr Work Phone: [facility] 03-21-2024 09:15-0400 SaO2% (BldA) [Mass fraction] 100 % Treatment Wstr Work Phone: [facility] 03-21-2024 09:15-0400 Systolic blood pressure 130 mm[Hg] Treatment Wstr Work Phone: [facility] 03-20-2024 09:28-0400 Body mass index (BMI) [Ratio] 17.62 kg/m2 Bk Masci DO Work Phone: [facility] 03-20-2024 09:28-0400 Body temperature 97.81 [degF] Bk Masci DO Work Phone: [facility] 03-20-2024 09:28-0400 Body weight 51.03 kg Bk Masci DO Work Phone: [facility] 03-20-2024 09:28-0400 Diastolic blood pressure 82 mm[Hg] Bk Masci DO Work Phone: [facility] 03-20-2024 09:28-0400 Heart rate 81 /min Bk Masci DO Work Phone: [facility] 03-20-2024 09:28-0400 SaO2% (BldA) [Mass fraction] 100 % Bk Masci DO Work Phone: [facility] 03-20-2024 09:28-0400 Systolic blood pressure 123 mm[Hg] Bk Masci DO Work Phone: [facility] 03-20-2024 09:14-0400 Body mass index (BMI) [Ratio] 17.62 kg/m2 Lab/Port Wstr Work Phone: [facility] 03-20-2024 09:14-0400 Body weight 51.03 kg Lab/Port Wstr Work Phone: [facility] 03-07-2024 08:30-0400 Body mass index (BMI) [Ratio] 17.46 kg/m2 Treatment Wstr Work Phone: [facility] 03-07-2024 08:30-0400 Body temperature 97.5 [degF] Treatment Wstr Work Phone: [facility] 03-07-2024 08:30-0400 Body weight 50.58 kg Treatment Wstr Work Phone: [facility] 03-07-2024 08:30-0400 Diastolic blood pressure 63 mm[Hg] Treatment Wstr Work Phone: [facility] 03-07-2024 08:30-0400 Heart rate 71 /min Treatment Wstr Work Phone: [facility] 03-07-2024 08:30-0400 Respiratory rate 18 /min Treatment Wstr Work Phone: [facility] 03-07-2024 08:30-0400 SaO2% (BldA) [Mass fraction] 100 % Treatment Wstr Work Phone: [facility] 03-07-2024 08:30-0400 Systolic blood pressure 110 mm[Hg] Treatment Wstr Work Phone: [facility] 02-29-2024 08:29-0400 Body temperature 97.81 [degF] Treatment Wstr Work Phone: [facility] 02-29-2024 08:29-0400 Diastolic blood pressure 67 mm[Hg] Treatment Wstr Work Phone: [facility] 02-29-2024 08:29-0400 Heart rate 91 /min Treatment Wstr Work Phone: [facility] 02-29-2024 08:29-0400 Respiratory rate 18 /min Treatment Wstr Work Phone: [facility] 02-29-2024 08:29-0400 SaO2% (BldA) [Mass fraction] 100 % Treatment Wstr Work Phone: [facility] 02-29-2024 08:29-0400 Systolic blood pressure 113 mm[Hg] Treatment Wstr Work Phone: [facility] 02-22-2024 08:28-0400 Body mass index (BMI) [Ratio] 17.07 kg/m2 Treatment Wstr Work Phone: [facility] 02-22-2024 08:28-0400 Body temperature 96.91 [degF] Treatment Wstr Work Phone: [facility] 02-22-2024 08:28-0400 Body weight 49.44 kg Treatment Wstr Work Phone: [facility] 02-22-2024 08:28-0400 Diastolic blood pressure 79 mm[Hg] Treatment Wstr Work Phone: [facility] 02-22-2024 08:28-0400 Heart rate 75 /min Treatment Wstr Work Phone: [facility] 02-22-2024 08:28-0400 Respiratory rate 18 /min Treatment Wstr Work Phone: [facility] 02-22-2024 08:28-0400 SaO2% (BldA) [Mass fraction] 100 % Treatment Wstr Work Phone: [facility] 02-22-2024 08:28-0400 Systolic blood pressure 127 mm[Hg] Treatment Wstr Work Phone: [facility] 02-21-2024 08:43-0400 Body mass index (BMI) [Ratio] 17.15 kg/m2 Bk Masci DO Work Phone: [facility] 02-21-2024 08:43-0400 Body temperature 97.39 [degF] Bk Masci DO Work Phone: [facility] 02-21-2024 08:43-0400 Body weight 49.67 kg Bk Masci DO Work Phone: [facility] 02-21-2024 08:43-0400 Diastolic blood pressure 72 mm[Hg] Bk Masci DO Work Phone: [facility] 02-21-2024 08:43-0400 Heart rate 80 /min Bk Masci DO Work Phone: [facility] 02-21-2024 08:43-0400 SaO2% (BldA) [Mass fraction] 100 % Bk Masci DO Work Phone: [facility] 02-21-2024 08:43-0400 Systolic blood pressure 114 mm[Hg] Bk Lenz DO Work Phone: [facility] 02-21-2024 08:27-0400 Body mass index (BMI) [Ratio] 17.15 kg/m2 Lab/Port Wstr Work Phone: [facility] 02-21-2024 08:27-0400 Body weight 49.67 kg Lab/Port Wstr Work Phone: [facility] 02-09-2024 08:23-0400 Body mass index (BMI) [Ratio] 16.84 kg/m2 Treatment Wstr Work Phone: [facility] 02-09-2024 08:23-0400 Body temperature 97 [degF] Treatment Wstr Work Phone: [facility] 02-09-2024 08:23-0400 Body weight 48.76 kg Treatment Wstr Work Phone: [facility] 02-09-2024 08:23-0400 Diastolic blood pressure 64 mm[Hg] Treatment Wstr Work Phone: [facility] 02-09-2024 08:23-0400 Heart rate 67 /min Treatment Wstr Work Phone: [facility] 02-09-2024 08:23-0400 Respiratory rate 18 /min Treatment Wstr Work Phone: [facility] 02-09-2024 08:23-0400 SaO2% (BldA) [Mass fraction] 100 % Treatment Wstr Work Phone: [facility] 02-09-2024 08:23-0400 Systolic blood pressure 114 mm[Hg] Treatment Wstr Work Phone: [facility] 01-31-2024 09:34-0400 Body temperature 97.81 [degF] Treatment Wstr Work Phone: [facility] 01-31-2024 09:34-0400 Body weight 48.76 kg Treatment Wstr Work Phone: [facility] 01-31-2024 09:34-0400 Diastolic blood pressure 81 mm[Hg] Treatment Wstr Work Phone: [facility] 01-31-2024 09:34-0400 Heart rate 76 /min Treatment Wstr Work Phone: [facility] 01-31-2024 09:34-0400 Respiratory rate 22 /min Treatment Wstr Work Phone: [facility] 01-31-2024 09:34-0400 Systolic blood pressure 126 mm[Hg] Treatment Wstr Work Phone: [facility] 01-25-2024 08:30-0400 Body temperature 97.39 [degF] Treatment Wstr Work Phone: [facility] 01-25-2024 08:30-0400 Diastolic blood pressure 74 mm[Hg] Treatment Wstr Work Phone: [facility] 01-25-2024 08:30-0400 Heart rate 70 /min Treatment Wstr Work Phone: [facility] 01-25-2024 08:30-0400 Respiratory rate 18 /min Treatment Wstr Work Phone: [facility] 01-25-2024 08:30-0400 SaO2% (BldA) [Mass fraction] 100 % Treatment Wstr Work Phone: [facility] 01-25-2024 08:30-0400 Systolic blood pressure 121 mm[Hg] Treatment Wstr Work Phone: [facility] 01-24-2024 07:50-0400 Body temperature 97.3 [degF] Mary Kate Dang Work Phone: [facility] 01-24-2024 07:50-0400 Body weight 48.53 kg Lab/Port Wstr Work Phone: [facility] 01-24-2024 07:50-0400 Diastolic blood pressure 68 mm[Hg] Mary Kate Dang Work Phone: [facility] 01-24-2024 07:50-0400 Heart rate 77 /min Mary Kate Dang Work Phone: [facility] 01-24-2024 07:50-0400 SaO2% (BldA) [Mass fraction] 98 % Mary Kate Dang Work Phone: [facility] 01-24-2024 07:50-0400 Systolic blood pressure 101 mm[Hg] Mary Kate Dang Work Phone: [facility] 01-04-2024 10:39-0400 Diastolic blood pressure 84 mm[Hg] Treatment Wstr Work Phone: [facility] 01-04-2024 10:39-0400 Heart rate 67 /min Treatment Wstr Work Phone: [facility] 01-04-2024 10:39-0400 SaO2% (BldA) [Mass fraction] 99 % Treatment Wstr Work Phone: [facility] 01-04-2024 10:39-0400 Systolic blood pressure 134 mm[Hg] Treatment Wstr Work Phone: [facility] 01-04-2024 08:21-0400 Body temperature 97.39 [degF] Treatment Wstr Work Phone: [facility] 01-04-2024 08:21-0400 Body weight 46.95 kg Treatment Wstr Work Phone: [facility] 01-04-2024 08:21-0400 Respiratory rate 16 /min Treatment Wstr Work Phone: [facility] 12-28-2023 12:09-0400 Diastolic blood pressure 85 mm[Hg] Treatment Wstr Work Phone: [facility] 12-28-2023 12:09-0400 Systolic blood pressure 134 mm[Hg] Treatment Wstr Work Phone: [facility] 12-28-2023 12:03-0400 Heart rate 74 /min Treatment Wstr Work Phone: [facility] 12-28-2023 09:55-0400 SaO2% (BldA) [Mass fraction] 100 % Treatment Wstr Work Phone: [facility] 12-28-2023 07:54-0400 Body temperature 97.7 [degF] Treatment Wstr Work Phone: [facility] 12-28-2023 07:54-0400 Body weight 47.17 kg Treatment Wstr Work Phone: [facility] 12-28-2023 07:54-0400 Respiratory rate 18 /min Treatment Wstr Work Phone: [facility] 12-20-2023 11:05-0500 Body temperature 98.01 [degF] Bk Masci DO Work Phone: [facility] 12-20-2023 11:05-0500 Body weight 48.08 kg Bk Masci DO Work Phone: [facility] 12-20-2023 11:05-0500 Diastolic blood pressure 83 mm[Hg] Bk Masci DO Work Phone: [facility] 12-20-2023 11:05-0500 Heart rate 83 /min Bk Masci DO Work Phone: [facility] 12-20-2023 11:05-0500 SaO2% (BldA) [Mass fraction] 97 % Bk Masci DO Work Phone: [facility] 12-20-2023 11:05-0500 Systolic blood pressure 117 mm[Hg] Bk Masci DO Work Phone: [facility] 11-30-2023 13:48-0500 Body temperature 97.2 [degF] Treatment Wstr Work Phone: [facility] 11-30-2023 13:48-0500 Diastolic blood pressure 78 mm[Hg] Treatment Wstr Work Phone: [facility] 11-30-2023 13:48-0500 Heart rate 91 /min Treatment Wstr Work Phone: [facility] 11-30-2023 13:48-0500 Respiratory rate 18 /min Treatment Wstr Work Phone: [facility] 11-30-2023 13:48-0500 SaO2% (BldA) [Mass fraction] 100 % Treatment Wstr Work Phone: [facility] 11-30-2023 13:48-0500 Systolic blood pressure 134 mm[Hg] Treatment Wstr Work Phone: [facility] 11-29-2023 11:05-0500 Body temperature 97.59 [degF] Bk Masci DO Work Phone: [facility] 11-29-2023 11:05-0500 Body weight 47.4 kg Bk Masci DO Work Phone: [facility] 11-29-2023 11:05-0500 Diastolic blood pressure 85 mm[Hg] Bk Masci DO Work Phone: [facility] 11-29-2023 11:05-0500 Heart rate 82 /min Bk Masci DO Work Phone: [facility] 11-29-2023 11:05-0500 SaO2% (BldA) [Mass fraction] 99 % Bk Masci DO Work Phone: [facility] 11-29-2023 11:05-0500 Systolic blood pressure 152 mm[Hg] Bk Masci DO Work Phone: [facility] 10-05-2023 08:56-0500 Body temperature 97.81 [degF] Bk Masci DO Work Phone: [facility] 10-05-2023 08:56-0500 Body weight 48.08 kg Bk Masci DO Work Phone: [facility] 10-05-2023 08:56-0500 Diastolic blood pressure 83 mm[Hg] Bk Masci DO Work Phone: [facility] 10-05-2023 08:56-0500 Heart rate 62 /min Bk Masci DO Work Phone: [facility] 10-05-2023 08:56-0500 SaO2% (BldA) [Mass fraction] 100 % Bk Masci DO Work Phone: [facility] 10-05-2023 08:56-0500 Systolic blood pressure 138 mm[Hg] Bk Masci DO Work Phone: [facility] 09-22-2023 14:42-0500 Body temperature 97.81 [degF] Treatment Wstr Work Phone: [facility] 09-22-2023 14:42-0500 Diastolic blood pressure 74 mm[Hg] Treatment Wstr Work Phone: [facility] 09-22-2023 14:42-0500 Heart rate 74 /min Treatment Wstr Work Phone: [facility] 09-22-2023 14:42-0500 SaO2% (BldA) [Mass fraction] 100 % Treatment Wstr Work Phone: [facility] 09-22-2023 14:42-0500 Systolic blood pressure 118 mm[Hg] Treatment Wstr Work Phone: [facility] 09-08-2023 09:00-0500 Body temperature 98.71 [degF] Treatment Wstr Work Phone: [facility] 09-08-2023 09:00-0500 Diastolic blood pressure 80 mm[Hg] Treatment Wstr Work Phone: [facility] 09-08-2023 09:00-0500 Heart rate 80 /min Treatment Wstr Work Phone: [facility] 09-08-2023 09:00-0500 Respiratory rate 16 /min Treatment Wstr Work Phone: [facility] 09-08-2023 09:00-0500 SaO2% (BldA) [Mass fraction] 100 % Treatment Wstr Work Phone: [facility] 09-08-2023 09:00-0500 Systolic blood pressure 118 mm[Hg] Treatment Wstr Work Phone: [facility] 09-05-2023 08:43-0500 Body temperature 97.7 [degF] Bk Lenz DO Work Phone: [facility] 09-05-2023 08:43-0500 Body weight 48.99 kg Lab/Port Wstr Work Phone: [facility] 09-05-2023 08:43-0500 Diastolic blood pressure 74 mm[Hg] Bk Richardsi DO Work Phone: [facility] 09-05-2023 08:43-0500 Heart rate 86 /min Bk Richardsi DO Work Phone: [facility] 09-05-2023 08:43-0500 Systolic blood pressure 146 mm[Hg] Bk Richardsi DO Work Phone: [facility] 2023 10:07-0400 Body temperature 98.4 [degF] Treatment Wstr Work Phone: [facility] 2023 10:07-0400 Diastolic blood pressure 73 mm[Hg] Treatment Wstr Work Phone: [facility] 2023 10:07-0400 Heart rate 75 /min Treatment Wstr Work Phone: [facility] 2023 10:07-0400 Respiratory rate 20 /min Treatment Wstr Work Phone: [facility] 2023 10:07-0400 Systolic blood pressure 127 mm[Hg] Treatment Wstr Work Phone: [facility] 07-25-2023 12:23-0400 Body temperature 96.69 [degF] Marisol Holden MANAGER OF TRAINING AND DEVELOPMENT.VENDOR MANAGER Work Phone: [facility] 07-25-2023 12:23-0400 Body weight 48.53 kg Marisol Holden MANAGER OF TRAINING AND DEVELOPMENT.VENDOR MANAGER Work Phone: [facility] 07-25-2023 12:23-0400 Diastolic blood pressure 64 mm[Hg] Marisol Holden MANAGER OF TRAINING AND DEVELOPMENT.VENDOR MANAGER Work Phone: [facility] 07-25-2023 12:23-0400 Heart rate 70 /min Marisol Holden MANAGER OF TRAINING AND DEVELOPMENT.VENDOR MANAGER Work Phone: [facility] 07-25-2023 12:23-0400 Respiratory rate 16 /min Marisol Holden MANAGER OF TRAINING AND DEVELOPMENT.VENDOR MANAGER Work Phone: [facility] 07-25-2023 12:23-0400 SaO2% (BldA) [Mass fraction] 100 % Marisol Welchgs MANAGER OF TRAINING AND DEVELOPMENT.VENDOR MANAGER Work Phone: [facility] 07-25-2023 12:23-0400 Systolic blood pressure 102 mm[Hg] Marisol Holden MANAGER OF TRAINING AND DEVELOPMENT.VENDOR MANAGER Work Phone: [facility] 07-14-2023 12:00-0400 Diastolic blood pressure 72 mm[Hg] Treatment Wstr Work Phone: [facility] 07-14-2023 12:00-0400 Heart rate 67 /min Treatment Wstr Work Phone: [facility] 07-14-2023 12:00-0400 Respiratory rate 18 /min Treatment Wstr Work Phone: [facility] 07-14-2023 12:00-0400 Systolic blood pressure 125 mm[Hg] Treatment Wstr Work Phone: [facility] 07-14-2023 09:19-0400 Body temperature 97.39 [degF] Treatment Wstr Work Phone: [facility] 07-14-2023 09:19-0400 SaO2% (BldA) [Mass fraction] 100 % Treatment Wstr Work Phone: [facility] 06-23-2023 08:19-0400 Body temperature 97.5 [degF] Treatment Wstr Work Phone: [facility] 06-23-2023 08:19-0400 Diastolic blood pressure 72 mm[Hg] Treatment Wstr Work Phone: [facility] 06-23-2023 08:19-0400 Heart rate 73 /min Treatment Wstr Work Phone: [facility] 06-23-2023 08:19-0400 Respiratory rate 20 /min Treatment Wstr Work Phone: [facility] 06-23-2023 08:19-0400 Systolic blood pressure 122 mm[Hg] Treatment Wstr Work Phone: [facility] 06-22-2023 11:46-0400 Body temperature 97.9 [degF] Bk Masci DO Work Phone: [facility] 06-22-2023 11:46-0400 Body weight 48.08 kg Bk Masci DO Work Phone: [facility] 06-22-2023 11:46-0400 Diastolic blood pressure 78 mm[Hg] Bk Masci DO Work Phone: [facility] 06-22-2023 11:46-0400 Heart rate 92 /min Bk Masci DO Work Phone: [facility] 06-22-2023 11:46-0400 Systolic blood pressure 129 mm[Hg] Bk Masci DO Work Phone: [facility] 06-22-2023 11:00-0400 Body weight 48.31 kg Lab/Port Wstr Work Phone: [facility] 06-02-2023 09:07-0400 Body temperature 97.5 [degF] Treatment Wstr Work Phone: [facility] 06-02-2023 09:07-0400 Diastolic blood pressure 56 mm[Hg] Treatment Wstr Work Phone: [facility] 06-02-2023 09:07-0400 Heart rate 76 /min Treatment Wstr Work Phone: [facility] 06-02-2023 09:07-0400 Systolic blood pressure 115 mm[Hg] Treatment Wstr Work Phone: [facility] 05-31-2023 08:30-0400 Body temperature 98.01 [degF] Bk Masci DO Work Phone: [facility] 05-31-2023 08:30-0400 Body weight 47.17 kg Bk Masci DO Work Phone: [facility] 05-31-2023 08:30-0400 Diastolic blood pressure 78 mm[Hg] Bk Masci DO Work Phone: [facility] 05-31-2023 08:30-0400 Heart rate 77 /min Bk Masci DO Work Phone: [facility] 05-31-2023 08:30-0400 SaO2% (BldA) [Mass fraction] 100 % Bk Lenz DO Work Phone: [facility] 05-31-2023 08:30-0400 Systolic blood pressure 115 mm[Hg] Bk Richardstyrone DO Work Phone: [facility] 05-31-2023 08:07-0400 Body weight 47.17 kg Lab/Port Wstr Work Phone: [facility] 05-19-2023 13:51-0400 Body temperature 98.4 [degF] Treatment Wstr Work Phone: [facility] 05-19-2023 13:51-0400 Body weight 49.44 kg Treatment Wstr Work Phone: [facility] 05-19-2023 13:51-0400 Diastolic blood pressure 78 mm[Hg] Treatment Wstr Work Phone: [facility] 05-19-2023 13:51-0400 Heart rate 82 /min Treatment Wstr Work Phone: [facility] 05-19-2023 13:51-0400 Respiratory rate 20 /min Treatment Wstr Work Phone: [facility] 05-19-2023 13:51-0400 Systolic blood pressure 122 mm[Hg] Treatment Wstr Work Phone: [facility] 05-12-2023 07:48-0400 Body temperature 98.4 [degF] Treatment Wstr Work Phone: [facility] 05-12-2023 07:48-0400 Diastolic blood pressure 79 mm[Hg] Treatment Wstr Work Phone: [facility] 05-12-2023 07:48-0400 Heart rate 91 /min Treatment Wstr Work Phone: [facility] 05-12-2023 07:48-0400 Systolic blood pressure 107 mm[Hg] Treatment Wstr Work Phone: [facility] 05-12-2023 07:45-0400 Body weight 50.35 kg Treatment Wstr Work Phone: [facility] 03-22-2023 10:08-0400 Body height 170.2 cm Ellie Romo Jr., MD Work Phone: [facility] 03-22-2023 10:08-0400 Body temperature 97.7 [degF] Ellie Romo Jr., MD Work Phone: [facility] 03-22-2023 10:08-0400 Body weight 47.63 kg Ellie Romo Jr., MD Work Phone: [facility] 03-22-2023 10:08-0400 Diastolic blood pressure 63 mm[Hg] Ellie Romo Jr., MD Work Phone: [facility] 03-22-2023 10:08-0400 Heart rate 65 /min Ellie Romo Jr., MD Work Phone: [facility] 03-22-2023 10:08-0400 SaO2% (BldA) [Mass fraction] 100 % Ellie Romo Jr., MD Work Phone: [facility] 03-22-2023 10:08-0400 Systolic blood pressure 122 mm[Hg] Ellie Romo Jr., MD Work Phone: [facility] 02-23-2023 10:15-0400 Body temperature 98.2 [degF] Bk Richardsi DO Work Phone: [facility] 02-23-2023 10:15-0400 Body weight 51.03 kg Bk Masci DO Work Phone: [facility] 02-23-2023 10:15-0400 Diastolic blood pressure 61 mm[Hg] Bk Richardsi DO Work Phone: [facility] 02-23-2023 10:15-0400 Heart rate 69 /min Bk Masci DO Work Phone: [facility] 02-23-2023 10:15-0400 SaO2% (BldA) [Mass fraction] 97 % Bk Masci DO Work Phone: [facility] 02-23-2023 10:15-0400 Systolic blood pressure 106 mm[Hg] Bk Masci DO Work Phone: [facility] 02-09-2023 [id number] Body height 171 cm Bk Masci DO Work Phone: [facility] 02-09-2023 10:28040 Body temperature 97.81 [degF] Bk Masci DO Work Phone: [facility] 02-09-2023 [id number]:28040 Body weight 51.71 kg Bk Masci DO Work Phone: [facility] 02-09-2023 10:28-0400 Diastolic blood pressure 83 mm[Hg] Bk Masci DO Work Phone: [facility] 02-09-2023 10:28-0400 Heart rate 81 /min Bk Masci DO Work Phone: [facility] 02-09-2023 10:28-0400 SaO2% (BldA) [Mass fraction] 98 % Bk Masci DO Work Phone: [facility] 02-09-2023 10:28-0400 Systolic blood pressure 120 mm[Hg] Bk Masci DO Work Phone: [facility] 07-25-2022 15:39-0400 Diastolic blood pressure 75 mm[Hg] Addy Hyatt MD Work Phone: [facility] 07-25-2022 15:39-0400 Heart rate 82 /min Addy Hyatt MD Work Phone: [facility] 07-25-2022 15:39-0400 Respiratory rate 16 /min Addy Hyatt MD Work Phone: [facility] 07-25-2022 15:39-0400 Systolic blood pressure 124 mm[Hg] Addy Hyatt MD Work Phone: [facility] 07-25-2022 08:56-0400 Body height 170.2 cm Addy Hyatt MD Work Phone: [facility] 07-25-2022 08:56-0400 Body mass index (BMI) [Ratio] 17.4 kg/m2 Addy Hyatt MD Work Phone: [facility] 07-25-2022 08:56-0400 Body temperature 98.01 [degF] Addy Hyatt MD Work Phone: [facility] 07-25-2022 08:56-0400 Body weight 50.4 kg Addy Hyatt MD Work Phone: [facility] 07-01-2022 14:21-0400 Diastolic blood pressure 60 mm[Hg] Addy Hyatt MD Work Phone: [facility] 07-01-2022 14:21-0400 Heart rate 67 /min Addy Hyatt MD Work Phone: [facility] 07-01-2022 14:21-0400 Systolic blood pressure 115 mm[Hg] Addy Hyatt MD Work Phone: [facility] 07-01-2022 12:57-0400 Respiratory rate 16 /min Addy Hyatt MD Work Phone: [facility] 07-01-2022 11:22-0400 Body temperature 98.29 [degF] Addy Hyatt MD Work Phone: [facility] 07-01-2022 11:22-0400 SaO2% (BldA) [Mass fraction] 98 % Addy Hyatt MD Work Phone: [facility] 07-01-2022 08:14-0400 Body height 170.2 cm dAdy Hyatt MD Work Phone: [facility] 07-01-2022 08:14-0400 Body mass index (BMI) [Ratio] 18.32 kg/m2 Addy Hyatt MD Work Phone: [facility] 07-01-2022 08:14-0400 Body weight 53.07 kg Addy Hyatt MD Work Phone: [facility] 06-28-2022 16:30-0400 Body temperature 97.5 [degF] Addy Hyatt MD Work Phone: [facility] 06-28-2022 16:30-0400 Diastolic blood pressure 61 mm[Hg] Addy Hyatt MD Work Phone: [facility] 06-28-2022 16:30-0400 Heart rate 61 /min Addy Hyatt MD Work Phone: [facility] 06-28-2022 16:30-0400 Respiratory rate 16 /min Addy Hyatt MD Work Phone: [facility] 06-28-2022 16:30-0400 SaO2% (BldA) [Mass fraction] 99 % Addy Hyatt MD Work Phone: [facility] 06-28-2022 16:30-0400 Systolic blood pressure 106 mm[Hg] Addy Hyatt MD Work Phone: [facility] 06-28-2022 12:48-0400 Body height 170.2 cm Addy Hyatt MD Work Phone: [facility] 06-28-2022 12:48-0400 Body mass index (BMI) [Ratio] 18.17 kg/m2 Addy Hyatt MD Work Phone: [facility] 06-28-2022 12:48-0400 Body weight 52.62 kg Addy Hyatt MD Work Phone: [facility] 02-09-2022 13:20-0400 Body weight 56.79 kg Colin Sofia MD Work Phone: [facility] 02-09-2022 13:20-0400 Diastolic blood pressure 62 mm[Hg] Colin Sofia MD Work Phone: [facility] 02-09-2022 13:20-0400 Heart rate 80 /min Colin Sofia MD Work Phone: [facility] 02-09-2022 13:20-0400 Respiratory rate 16 /min Colin Sofia MD Work Phone: [facility] 02-09-2022 13:20-0400 Systolic blood pressure 120 mm[Hg] Colin Sofia MD Work Phone: [facility] Encounters Encounter Date Encounter Type Care Provider Facility Start: 08-05-2024 End: 08-05-2024 Subsequent hospital visit by physician [facility] Timo Slaughter Work Phone: Radiology Comment on above: Pleural effusion [J9 0] Start: 08-05-2024 End: 08-05-2024 Office outpatient visit 25 minutes Bk Lenz DO Work Phone: Hematology/Oncology Comment on above: Malignant neoplasm o f both ovaries (HCC) (Primary Dx); Peritoneal carcinomatosis (HCC); Pleural effusion; Chemotherapy-induced neuropathy (HCC); Anxiety associated with cancer diagnosis (HCC); Chemotherapy induced nausea and vomiting; Chronic pulmonary embolism without acute cor pulmonale, unspecified pulmonary embolism type (HCC); Malignant pleural effusion Start: 08-05-2024 End: 08-05-2024 ambulatory [facility] [facility] Wstr Work Phone: Hematology/Oncology Comment on above: Malignant neoplasm o f both ovaries (HCC); Peritoneal carcinomatosis (HCC) Start: 08-01-2024 End: 08-01-2024 Specialty Pharmacy [facility] Comment on above: [facility] Oral Oncology/he matology - Medication Refill (Etoposide 50mg) Start: 07-31-2024 End: 07-31-2024 Refill Bk Lenz DO Work Phone: Hematology/Oncology Comment on above: Refill Request Start: 07-29-2024 End: 07-29-2024 ambulatory [facility] [facility] Wstr Work Phone: Hematology/Oncology Comment on above: Malignant neoplasm o f both ovaries (HCC); Peritoneal carcinomatosis (HCC) Start: 07-26-2024 End: 08-06-2024 Telephone encounter Chloe Zambrano RN Hematology/Oncology Comment on above: Bi Developer - O ther (Hospital Discharge ) Start: 07-23-2024 End: 07-23-2024 Telephone encounter Chloe Zambrano RN Hematology/Oncology Comment on above: Bi Developer - O ther (Oral Anti-Cancer Agents Follow-up (etoposide) ) Start: 07-22-2024 End: 07-22-2024 ambulatory [facility] [facility] Wstr Work Phone: Hematology/Oncology Comment on above: Malignant neoplasm o f both ovaries (HCC); Peritoneal carcinomatosis (HCC) Start: 07-18-2024 End: 07-18-2024 Telephone encounter Bk Lenz DO Work Phone: Hematology/Oncology Comment on above: Results, Lab Start: 07-17-2024 End: 07-22-2024 ambulatory Colin Sofia MD Work Phone: Internal Medicine 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); Peritoneal carcinomatosis (HCC) Start: 07-10-2024 End: 07-10-2024 Chart abstracting Bubba Asher RN Work Phone: Hematology/Oncology Start: 07-10-2024 End: 07-11-2024 Telephone encounter Bk Lenz DO Work Phone: Hematology/Oncology Comment on above: Patient Question Start: 07-09-2024 End: 07-09-2024 ambulatory COLIN SOFIA Hematology/Oncology Comment on above: Disseminated maligna nt neoplasm of ovary, unspecified laterality (HCC) (Primary Dx) Start: 07-09-2024 End: 07-09-2024 Telemedicine consultation with patient [facility] Hematology/Oncology Start: 07-08-2024 End: 07-08-2024 ambulatory Glenys Aguirre RN [facility] Radiology Comment on above: You are scheduled fo r a paracentesis on Tuesday 07/10 at 9:00 am Start: 07-08-2024 End: 07-08-2024 E-mail encounter from caregiver Glenys Aguirre RN [facility] Radiology Start: 07-08-2024 End: 07-08-2024 Patient encounter procedure Pastor Pires [facility] Comment on above: [facility] Oral Oncology/he matology - Treatment Referral (Etoposide); Insurance Authorization (No PA Required); [facility] Oral Oncology/hematology - Initiation Of Therapy Start: 07-08-2024 End: 07-08-2024 Telephone encounter Chloe Zambrano RN Hematology/Oncology Comment on above: Bi Developer - O ther (Oral Anti-Cancer Agents Education ) Patient Update Start: 07-04-2024 End: 07-04-2024 Telephone encounter Bk Lenz DO Work Phone: Hematology/Oncology Comment on above: paracentesis Start: 07-04-2024 End: 07-04-2024 ambulatory Treatment Rm 6 [facility] Work Phone: Hematology/Oncology Comment on above: Disseminated maligna nt neoplasm of ovary, unspecified laterality (HCC) (Primary Dx); Malignant neoplasm of both ovaries (HCC); Peritoneal carcinomatosis (HCC) Start: 07-03-2024 End: 07-03-2024 ambulatory [facility] Facility:[facility] Start: 07-02-2024 End: 07-02-2024 Telephone encounter Juanita Santos RN [facility] Radiology Start: 07-01-2024 End: 07-05-2024 Telephone encounter Bubba Asher RN Work Phone: Hematology/Oncology Comment on above: Appointment Start: 06-28-2024 End: 06-28-2024 Chart abstracting Bubba Asher RN Work Phone: Hematology/Oncology Start: 06-28-2024 End: 06-28-2024 ambulatory Treatment Rm 1 [facility] Work Phone: Hematology/Oncology Comment on above: Disseminated maligna nt neoplasm of ovary, unspecified laterality (HCC) (Primary Dx); Malignant neoplasm of both ovaries (HCC); Peritoneal carcinomatosis (HCC) Start: 06-27-2024 End: 06-27-2024 Subsequent hospital visit by physician Wyatt Jenkins PA-C Work Phone: [facility] Comment on above: 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], Disseminated malignant neoplasm of ovary, unspecified laterality (HCC) [C56.9], Other ascites [R18.8] Start: 06-26-2024 End: 06-28-2024 Telephone encounter Chloe Zambrano RN Hematology/Oncology Comment on above: Bi Developer - O ther (Follow-up/discuss medication changes ) Start: 06-26-2024 End: 06-26-2024 ambulatory Bk Lenz DO Work Phone: Hematology/Oncology Comment on above: Malignant neoplasm o f both ovaries (HCC) (Primary Dx); Peritoneal carcinomatosis (HCC); Other ascites; Chemotherapy-induced neuropathy (HCC); Malignant pleural effusion; History of pulmonary embolism Start: 06-26-2024 End: 06-26-2024 Patient encounter procedure Bk Lenz DO Work Phone: Hematology/Oncology Start: 06-26-2024 End: 06-26-2024 ambulatory [facility] Work Phone: Hematology/Oncology Comment on above: Malignant neoplasm o f both ovaries (HCC) (Primary Dx); Peritoneal carcinomatosis (HCC) Start: 06-14-2024 End: 06-14-2024 Telephone encounter Chloe Zambrano RN Hematology/Oncology Comment on above: Bi Developer - O ther (Follow-up on symptoms ) Start: 06-13-2024 End: 06-13-2024 Orders Only Bk Lenz DO Work Phone: Hematology/Oncology Comment on above: Diarrhea of presumed infectious origin (Primary Dx) Malignant neoplasm o f both ovaries (HCC) (Primary Dx); Peritoneal carcinomatosis (HCC); Disseminated malignant neoplasm of ovary, unspecified laterality (HCC) Future Appointment Start: 06-07-2024 End: 06-10-2024 Telephone encounter Chloe Zambrano RN Hematology/Oncology Start: 06-06-2024 End: 06-06-2024 ambulatory Treatment Rm 4 [facility] Work Phone: Hematology/Oncology Comment on above: Malignant neoplasm o f both ovaries (HCC) (Primary Dx); Peritoneal carcinomatosis (HCC); Disseminated malignant neoplasm of ovary, unspecified laterality (HCC) Start: 05-31-2024 End: 05-31-2024 ambulatory Bk Lenz DO Work Phone: Hematology/Oncology Comment on above: Peritoneal carcinoma tosis (HCC) (Primary Dx); Other ascites; Malignant neoplasm of both ovaries (HCC); Chemotherapy-induced neuropathy (HCC); Malignant pleural effusion Start: 05-31-2024 End: 05-31-2024 Patient encounter procedure Bk Lenz DO Work Phone: Hematology/Oncology Start: 05-31-2024 Telephone encounter Bk flanagan DO Work Phone: Hematology/Oncology Comment on above: Appointment today Start: 05-30-2024 ambulatory COLIN Myrick ity:[facility] Start: 05-30-2024 End: 05-30-2024 Subsequent hospital visit by physician Kandice Waddell APRN.VENDOR MANAGER Work Phone: [facility] Comment on above: 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] Start: 05-27-2024 Telephone encounter Bk flanagan DO Work Phone: Hematology/Oncology Comment on above: Patient Update Start: 05-27-2024 End: 05-27-2024 ambulatory [facility] [employer] Work Phone: Hematology/Oncology Comment on above: Malignant neoplasm o f both ovaries (HCC) (Primary Dx) Start: 05-27-2024 End: 05-27-2024 Subsequent hospital visit by physician Anya [facility] [employer] ([employer]) Work Phone: Cat Scan Comment on above: Malignant neoplasm o f both ovaries (HCC) [C56.3] Start: 05-24-2024 Telephone encounter Bk flanagan DO Work Phone: Hematology/Oncology Comment on above: Appointment Start: 05-23-2024 End: 05-23-2024 ambulatory Treatment 8 [facility] [employer] [employer] Work Phone: Hematology/Oncology Comment on above: Disseminated maligna nt neoplasm of ovary, unspecified laterality (HCC) (Primary Dx); Malignant neoplasm of both ovaries (HCC); Peritoneal carcinomatosis (HCC) Start: 05-16-2024 End: 05-16-2024 ambulatory Treatment 8 [facility] [employer] Work Phone: Hematology/Oncology Comment on above: Disseminated maligna nt neoplasm of ovary, unspecified laterality (HCC) (Primary Dx); Malignant neoplasm of both ovaries (HCC); Peritoneal carcinomatosis (HCC) Start: 05-10-2024 End: 05-10-2024 ambulatory Treatment Rm 8 [facility] [employer] Work Phone: Hematology/Oncology Comment on above: Malignant neoplasm o f both ovaries (HCC) (Primary Dx); Peritoneal carcinomatosis (HCC); Disseminated malignant neoplasm of ovary, unspecified laterality (HCC) Start: 05-09-2024 End: 05-09-2024 Patient encounter procedure Bk Lenz DO Work Phone: Hematology/Oncology Start: 05-09-2024 End: 05-09-2024 ambulatory Bk Lenz DO Work Phone: Hematology/Oncology Comment on above: Malignant neoplasm o f both ovaries (HCC) (Primary Dx); Peritoneal carcinomatosis (HCC); Chemotherapy-induced neuropathy (HCC); Malignant pleural effusion Malignant neoplasm o f both ovaries (HCC); Peritoneal carcinomatosis (HCC) Start: 05-08-2024 Orders Only Bk Vazquez Work Phone: Hematology/Oncology Comment on above: Malignant neoplasm o f both ovaries (HCC) (Primary Dx); Peritoneal carcinomatosis (HCC) Start: 04-26-2024 End: 04-26-2024 Infusion Center Treatment Rm 11 [facility] [employer] Work Phone: Hematology/Oncology Comment on above: Disseminated maligna nt neoplasm of ovary, unspecified laterality (HCC) (Primary Dx); Peritoneal carcinomatosis (HCC); Malignant neoplasm of both ovaries (HCC); Coronary artery disease involving [place] coronary artery of [place] heart without angina pectoris; DVT (deep vein thrombosis) in ; Chronic obstructive pulmonary disease, unspecified COPD type (HCC); Chemotherapy-induced neuropathy (HCC); Anxiety associated with cancer diagnosis (HCC); Disorder of lingual tonsil Start: 04-19-2024 End: 04-19-2024 Infusion Center Treatment Rm 12 [facility] [employer] Work Phone: Hematology/Oncology Comment on above: Disseminated maligna nt neoplasm of ovary, unspecified laterality (HCC) (Primary Dx); Peritoneal carcinomatosis (HCC); Malignant neoplasm of both ovaries (HCC); Coronary artery disease involving [place] coronary artery of [place] heart without angina pectoris; DVT (deep vein thrombosis) in ; Chronic obstructive pulmonary disease, unspecified COPD type (HCC); Chemotherapy-induced neuropathy (HCC); Anxiety associated with cancer diagnosis (HCC); Disorder of lingual tonsil Start: 04-11-2024 End: 04-11-2024 ambulatory Treatment Rm 5 [facility] Work Phone: Hematology/Oncology Comment on above: Malignant neoplasm o f both ovaries (HCC) (Primary Dx); Peritoneal carcinomatosis (HCC); Disseminated malignant neoplasm of ovary, unspecified laterality (HCC) Start: 04-10-2024 End: 04-10-2024 Telephone encounter Bk Lezn DO Work Phone: Hematology/Oncology Comment on above: Peritoneal carcinoma tosis (HCC); Malignant neoplasm of both ovaries (HCC); Coronary artery disease involving [place] coronary artery of [place] heart without angina pectoris; DVT (deep vein thrombosis) in ; Chronic obstructive pulmonary disease, unspecified COPD type (HCC); Chemotherapy-induced neuropathy (HCC); Anxiety associated with cancer diagnosis (HCC); Disorder of lingual tonsil Start: 04-10-2024 End: 04-10-2024 ambulatory Lab/[facility] Work Phone: Hematology/Oncology Comment on above: Malignant neoplasm o f both ovaries (HCC) (Primary Dx); Peritoneal carcinomatosis (HCC) Start: 04-10-2024 End: 04-10-2024 Patient encounter procedure Familia Madden APRN.CNP Work Phone: Hematology/Oncology Start: 03-28-2024 End: 03-28-2024 Infusion Center Treatment Rm 10 [facility] Work Phone: Hematology/Oncology Comment on above: Disseminated maligna nt neoplasm of ovary, unspecified laterality (HCC) (Primary Dx); Peritoneal carcinomatosis (HCC); Malignant neoplasm of both ovaries (HCC); Coronary artery disease involving [place] coronary artery of [place] heart without angina pectoris; DVT (deep vein thrombosis) in ; Chronic obstructive pulmonary disease, unspecified COPD type (HCC); Chemotherapy-induced neuropathy (HCC); Anxiety associated with cancer diagnosis (HCC); Disorder of lingual tonsil Patient Update Start: 03-26-2024 Telephone encounter Bk flanagan DO Work Phone: Hematology/Oncology Comment on above: Letter Start: 03-21-2024 Telephone encounter Bk flanagan DO Work Phone: Hematology/Oncology Comment on above: Patient Update (Resc hedule appt to allow for vacation. ) Start: 03-21-2024 End: 03-21-2024 ambulatory Treatment Rm 10 [facility] Work Phone: Hematology/Oncology Comment on above: Malignant neoplasm o f both ovaries (HCC) (Primary Dx); Peritoneal carcinomatosis (HCC); Disseminated malignant neoplasm of ovary, unspecified laterality (HCC) Start: 03-20-2024 End: 03-20-2024 Office outpatient visit 25 minutes Bk Lenz DO Work Phone: Hematology/Oncology Comment on above: Malignant neoplasm o f both ovaries (HCC) (Primary Dx); Peritoneal carcinomatosis (HCC); DVT (deep vein thrombosis) in ; Chemotherapy-induced neuropathy (HCC); Anxiety associated with cancer diagnosis (HCC); Malignant pleural effusion Start: 03-20-2024 End: 03-20-2024 Infusion Center Lab/[facility] Work Phone: Hematology/Oncology Comment on above: Peritoneal carcinoma tosis (HCC) (Primary Dx); Malignant neoplasm of both ovaries (HCC); Coronary artery disease involving [place] coronary artery of [place] heart without angina pectoris; DVT (deep vein thrombosis) in ; Chronic obstructive pulmonary disease, unspecified COPD type (HCC); Chemotherapy-induced neuropathy (HCC); Anxiety associated with cancer diagnosis (HCC); Disorder of lingual tonsil Start: 03-07-2024 End: 03-07-2024 Infusion Center Treatment Rm 5 [facility] Work Phone: Hematology/Oncology Comment on above: Peritoneal carcinoma tosis (HCC) (Primary Dx); Malignant neoplasm of both ovaries (HCC); Coronary artery disease involving [place] coronary artery of [place] heart without angina pectoris; DVT (deep vein thrombosis) in ; Chronic obstructive pulmonary disease, unspecified COPD type (HCC); Chemotherapy-induced neuropathy (HCC); Anxiety associated with cancer diagnosis (HCC); Disorder of lingual tonsil; Disseminated malignant neoplasm of ovary, unspecified laterality (HCC) Start: 02-29-2024 End: 02-29-2024 Infusion Center Treatment 5 [facility] Work Phone: Hematology/Oncology Comment on above: Disseminated maligna nt neoplasm of ovary, unspecified laterality (HCC) (Primary Dx); Peritoneal carcinomatosis (HCC); Malignant neoplasm of both ovaries (HCC); Coronary artery disease involving [place] coronary artery of [place] heart without angina pectoris; DVT (deep vein thrombosis) in ; Chronic obstructive pulmonary disease, unspecified COPD type (HCC); Chemotherapy-induced neuropathy (HCC); Anxiety associated with cancer diagnosis (HCC); Disorder of lingual tonsil Start: 02-22-2024 End: 02-22-2024 ambulatory Treatment 5 [facility] [employer] Work Phone: Hematology/Oncology Comment on above: Malignant neoplasm o f both ovaries (HCC) (Primary Dx); Peritoneal carcinomatosis (HCC); Disseminated malignant neoplasm of ovary, unspecified laterality (HCC) Start: 02-21-2024 End: 02-21-2024 Office outpatient visit 15 minutes Bk Lenz DO Work Phone: Hematology/Oncology Comment on above: Malignant neoplasm o f both ovaries (HCC) (Primary Dx); Peritoneal carcinomatosis (HCC); DVT (deep vein thrombosis) in ; Chemotherapy-induced neuropathy (HCC); Anxiety associated with cancer diagnosis (HCC); Malignant pleural effusion Start: 02-21-2024 End: 02-21-2024 Infusion Center [facility] Work Phone: Hematology/Oncology Comment on above: Peritoneal carcinoma tosis (HCC); Malignant neoplasm of both ovaries (HCC); Coronary artery disease involving [place] coronary artery of [place] heart without angina pectoris; DVT (deep vein thrombosis) in ; Chronic obstructive pulmonary disease, unspecified COPD type (HCC); Chemotherapy-induced neuropathy (HCC); Anxiety associated with cancer diagnosis (HCC); Disorder of lingual tonsil Start: 02-09-2024 End: 02-09-2024 Infusion Center Treatment 9 [facility] Work Phone: Hematology/Oncology Comment on above: Peritoneal carcinoma tosis (HCC) (Primary Dx); Malignant neoplasm of both ovaries (HCC); Coronary artery disease involving [place] coronary artery of [place] heart without angina pectoris; DVT (deep vein thrombosis) in ; Chronic obstructive pulmonary disease, unspecified COPD type (HCC); Chemotherapy-induced neuropathy (HCC); Anxiety associated with cancer diagnosis (HCC); Disorder of lingual tonsil; Disseminated malignant neoplasm of ovary, unspecified laterality (HCC) Start: 01-31-2024 End: 01-31-2024 Infusion Center Treatment 12 [facility] Work Phone: Hematology/Oncology Comment on above: Peritoneal carcinoma tosis (HCC) (Primary Dx); Malignant neoplasm of both ovaries (HCC); Coronary artery disease involving [place] coronary artery of [place] heart without angina pectoris; DVT (deep vein thrombosis) in ; Chronic obstructive pulmonary disease, unspecified COPD type (HCC); Chemotherapy-induced neuropathy (HCC); Anxiety associated with cancer diagnosis (HCC); Disorder of lingual tonsil; Disseminated malignant neoplasm of ovary, unspecified laterality (HCC) Start: 01-25-2024 End: 01-25-2024 ambulatory Treatment 5 [facility] Work Phone: Hematology/Oncology Comment on above: Disseminated maligna nt neoplasm of ovary, unspecified laterality (HCC) (Primary Dx); Peritoneal carcinomatosis (HCC); Malignant neoplasm of both ovaries (HCC) Start: 01-24-2024 End: 01-24-2024 Infusion Center Lab/[facility] Work Phone: Hematology/Oncology Comment on above: Malignant neoplasm o f both ovaries (HCC) (Primary Dx); Peritoneal carcinomatosis (HCC); Coronary artery disease involving [place] coronary artery of [place] heart without angina pectoris; DVT (deep vein thrombosis) in ; Chronic obstructive pulmonary disease, unspecified COPD type (HCC); Chemotherapy-induced neuropathy (HCC); Anxiety associated with cancer diagnosis (HCC); Disorder of lingual tonsil Malignant neoplasm o f both ovaries (HCC) (Primary Dx); Peritoneal carcinomatosis (HCC); DVT (deep vein thrombosis) in ; Anxiety associated with cancer diagnosis (HCC); Malignant pleural effusion Start: 01-18-2024 Telephone encounter Bk flanagan DO Work Phone: Hematology/Oncology Comment on above: Appointment Start: 01-11-2024 End: 01-11-2024 ambulatory BK LENZ Facility:[facility] Start: 01-10-2024 End: 01-10-2024 ambulatory BK Nely FOREIGN Facility:[facility] Start: 01-09-2024 End: 01-09-2024 ambulatory COLIN Kapoor [facility] Facility:[facility] Start: 01-04-2024 End: 01-04-2024 Infusion Center Treatment Rm 5 [facility] Work Phone: Hematology/Oncology Comment on above: Peritoneal carcinoma tosis (HCC) (Primary Dx); Malignant neoplasm of both ovaries (HCC); Coronary artery disease involving [place] coronary artery of [place] heart without angina pectoris; DVT (deep vein thrombosis) in ; Chronic obstructive pulmonary disease, unspecified COPD type (HCC); Chemotherapy-induced neuropathy (HCC); Anxiety associated with cancer diagnosis (HCC); Disorder of lingual tonsil; Disseminated malignant neoplasm of ovary, unspecified laterality (HCC) Start: 01-02-2024 Telephone encounter Bk flanagan DO Work Phone: Hematology/Oncology Comment on above: Results Start: 01-02-2024 ambulatory COLIN Kapoor [facility] ity:[facility] Start: 01-02-2024 End: 01-02-2024 Subsequent hospital visit by physician James Shoemaker MD Work Phone: [facility] Radiology Comment on above: Axillary adenopathy [R59.0] Start: 12-29-2023 Telephone encounter Bk flanagan DO Work Phone: Hematology/Oncology Comment on above: Refill Request Start: 12-28-2023 End: 12-28-2023 Infusion Center Treatment Rm 2 [facility] Work Phone: Hematology/Oncology Comment on above: Peritoneal carcinoma tosis (HCC) (Primary Dx); Malignant neoplasm of both ovaries (HCC); Coronary artery disease involving [place] coronary artery of [place] heart without angina pectoris; DVT (deep vein thrombosis) in ; Chronic obstructive pulmonary disease, unspecified COPD type (HCC); Chemotherapy-induced neuropathy (HCC); Anxiety associated with cancer diagnosis (HCC); Disorder of lingual tonsil; Disseminated malignant neoplasm of ovary, unspecified laterality (HCC) Start: 12-25-2023 Telephone encounter Chloe Doup RN He matology/Oncology Comment on above: Bi Developer - O ther (Chemotherapy Education ([employer])) Start: 12-20-2023 End: 12-20-2023 Infusion Center [facility] Work Phone: Hematology/Oncology Comment on above: Peritoneal carcinoma tosis (HCC); Malignant neoplasm of both ovaries (HCC); Coronary artery disease involving [place] coronary artery of [place] heart without angina pectoris; DVT (deep vein thrombosis) in ; Chronic obstructive pulmonary disease, unspecified COPD type (HCC); Chemotherapy-induced neuropathy (HCC); Anxiety associated with cancer diagnosis (HCC); Disorder of lingual tonsil Start: 12-20-2023 End: 12-20-2023 Office outpatient visit 25 minutes Bk Lenz DO Work Phone: Hematology/Oncology Comment on above: Disseminated maligna nt neoplasm of ovary, unspecified laterality (HCC) (Primary Dx); Axillary adenopathy; Malignant neoplasm of both ovaries (HCC); Peritoneal carcinomatosis (HCC) Start: 12-11-2023 End: 12-11-2023 ambulatory BK LENZ Facility:[facility] Start: 12-07-2023 Telephone encounter Bk flanagan DO Work Phone: Hematology/Oncology Start: 11-30-2023 End: 11-30-2023 ambulatory Treatment 3 [facility] Work Phone: Hematology/Oncology Comment on above: Disseminated maligna nt neoplasm of ovary, unspecified laterality (HCC) (Primary Dx); Peritoneal carcinomatosis (HCC); Malignant neoplasm of both ovaries (HCC) Start: 11-29-2023 End: 11-29-2023 Infusion Center [facility] Work Phone: Hematology/Oncology Comment on above: Peritoneal carcinoma tosis (HCC); Malignant neoplasm of both ovaries (HCC); Coronary artery disease involving [place] coronary artery of [place] heart without angina pectoris; DVT (deep vein thrombosis) in ; Chronic obstructive pulmonary disease, unspecified COPD type (HCC); Chemotherapy-induced neuropathy (HCC) (HCC); Anxiety associated with cancer diagnosis (HCC); Disorder of lingual tonsil AVS 11/29/23 Start: 11-29-2023 End: 11-29-2023 ambulatory BK LENZ Facility:[facility] Start: 11-29-2023 End: 11-29-2023 Subsequent hospital visit by physician Kathi [facility] Timo Slaughter Work Phone: Radiology Comment on above: Pleural effusion on right [J90] Start: 11-29-2023 End: 11-29-2023 Office outpatient visit 25 minutes Bk Lenz DO Work Phone: Hematology/Oncology Comment on above: Disseminated maligna nt neoplasm of ovary, unspecified laterality (HCC) (Primary Dx); Pleural effusion on right; Upper abdominal pain; Nausea; Peritoneal carcinomatosis (HCC); Malignant neoplasm of both ovaries (HCC) Start: 11-21-2023 Telephone encounter Bk flanagan DO Work Phone: Hematology/Oncology Start: 11-17-2023 End: 11-17-[address] Work Phone: [facility] Start: 11-17-2023 End: 11-17-[address] Work Phone: Nutrition Therapy Comment on above: Nutrition Telephone (Initial ) Start: 11-09-2023 End: 11-09-2023 ambulatory [facility] Facility:[facility] Start: 11-08-2023 End: 11-08-2023 ambulatory [facility] Facility:[facility] Start: 11-07-2023 End: 11-07-2023 ambulatory [facility] Facility:[facility] Start: 10-19-2023 End: 10-19-2023 ambulatory [facility] Facility:[facility] Start: 10-11-2023 End: 10-11-2023 ambulatory [facility] Facility:[facility] Start: 10-05-2023 Telephone encounter Becky perkins RN Work Phone: Hematology/Oncology Comment on above: Care Coordination (C hange in Treatment) Start: 10-05-2023 End: 10-05-2023 Office outpatient visit 25 minutes Bk Lenz DO Work Phone: Hematology/Oncology Comment on above: Peritoneal carcinoma tosis (HCC) (Primary Dx); Intractable episodic paroxysmal hemicrania; Malignant neoplasm of both ovaries (HCC); Coronary artery disease involving [place] coronary artery of [place] heart without angina pectoris; DVT (deep vein thrombosis) in ; Chemotherapy-induced neuropathy (HCC) (HCC); Malignant pleural effusion Start: 10-05-2023 End: 10-05-2023 ambulatory [facility] Facility:[facility] Start: 09-27-2023 End: 09-27-2023 ambulatory [facility] Work Phone: Hematology/Oncology Comment on above: Malignant neoplasm o f both ovaries (HCC) (Primary Dx) Start: 09-22-2023 End: 09-22-2023 ambulatory Treatment Rm 12 [facility] Work Phone: Hematology/Oncology Comment on above: Malignant neoplasm o f both ovaries (HCC) (Primary Dx) Start: 09-20-2023 Telephone encounter [facility] Work Phone: [facility] Comment on above: Opened In Error Start: 09-08-2023 End: 09-08-2023 ambulatory Treatment Rm 5 [facility] Work Phone: Hematology/Oncology Comment on above: Malignant neoplasm o f both ovaries (HCC) (Primary Dx) Start: 09-05-2023 End: 09-05-2023 [facility] [facility] Work Phone: Hematology/Oncology Comment on above: Malignant neoplasm o f both ovaries (HCC) (Primary Dx); Peritoneal carcinomatosis (HCC); Coronary artery disease involving [place] coronary artery of [place] heart without angina pectoris; DVT (deep vein thrombosis) in ; Chronic obstructive pulmonary disease, unspecified COPD type (HCC); Chemotherapy-induced neuropathy (HCC) ; Anxiety associated with cancer diagnosis (HCC); Disorder of lingual tonsil Malignant neoplasm o f both ovaries (HCC) (Primary Dx); Pleural effusion on right; Peritoneal carcinomatosis (HCC); DVT (deep vein thrombosis) in ; Chemotherapy-induced neuropathy (HCC) ; Anxiety associated with cancer diagnosis (HCC); Malignant pleural effusion Pleural effusion on right [J90] Start: 08-25-2023 End: 08-25-2023 [place] [facility] [place] Start: 2023 End: 2023 ambulatory Treatment Rm 11 [facility] Work Phone: Hematology/Oncology Comment on above: Malignant neoplasm o f both ovaries (HCC) (Primary Dx) Start: 08-10-2023 Telephone encounter Bk flanagan DO Work Phone: Hematology/Oncology Comment on above: Results (Chest x-ray ) Start: 08-10-2023 End: 08-10-2023 Subsequent hospital visit by physician Kathi [facility] Work Phone: Radiology Comment on above: Pleural effusion [J9 0] Start: 08-10-2023 End: 08-10-2023 ambulatory BK LENZ Facility:[facility] Start: 08-01-2023 Telephone encounter Bk flanagan DO Work Phone: Hematology/Oncology Comment on above: Medication Problem Start: 07-27-2023 End: 07-27-2023 ambulatory [facility] [facility] Work Phone: Hematology/Oncology Comment on above: Malignant neoplasm o f both ovaries (HCC); Peritoneal carcinomatosis (HCC) Start: 07-25-2023 Telephone encounter Bk flanagan DO Work Phone: Hematology/Oncology Comment on above: Dental Problem Start: 07-25-2023 End: 07-25-2023 Patient encounter procedure Marisol Holden APRN.VENDOR MANAGER Work Phone: [facility] Comment on above: Pain, dental (Primar y Dx) Start: 07-18-2023 Telephone encounter Chloe Zambrano RN He matology/Oncology Comment on above: Bi Developer - O ther (C1D1 Post Treatment Call (Doxil/Avastin) ) Start: 07-14-2023 End: 07-14-2023 ambulatory Treatment Rm 7 [facility] Work Phone: Hematology/Oncology Comment on above: Malignant neoplasm o f both ovaries (HCC) (Primary Dx) Start: 07-12-2023 End: 07-12-2023 Subsequent hospital visit by physician Xr [facility] [place] [facility] Work Phone: Radiology Comment on above: Malignant neoplasm o f both ovaries (HCC) [C56.3] Start: 07-07-2023 Telephone encounter Ora Walton APRN.VENDOR MANAGER Work Phone: Gynecology Oncology Comment on above: Results Start: 07-07-2023 End: 07-07-2023 Subsequent hospital visit by physician Ct [facility] ([facility]) Work Phone: Cat Scan Comment on above: Ovarian cancer, bila teral (HCC) [C56.3] Start: 07-07-2023 End: 07-07-2023 ambulatory [facility] [facility] Work Phone: Hematology/Oncology Comment on above: Malignant neoplasm o f both ovaries (HCC) (Primary Dx) Start: 07-06-2023 Telephone encounter Bk flanagan DO Work Phone: Hematology/Oncology Comment on above: Appointment Start: 06-23-2023 End: 06-23-2023 ambulatory Treatment Rm 2 [place] [facility] Work Phone: Hematology/Oncology Comment on above: Malignant neoplasm o f both ovaries (HCC) (Primary Dx) Start: 06-22-2023 End: 06-22-2023 Infusion Center [facility] [facility] Work Phone: Hematology/Oncology Comment on above: Peritoneal carcinoma tosis (HCC) (Primary Dx); Malignant neoplasm of both ovaries (HCC); Coronary artery disease involving [place] coronary artery of [place] heart without angina pectoris; DVT (deep vein thrombosis) in ; Chronic obstructive pulmonary disease, unspecified COPD type (HCC); Chemotherapy-induced neuropathy (HCC); Anxiety associated with cancer diagnosis (HCC); Disorder of lingual tonsil Disseminated ovarian cancer, unspecified laterality (HCC) (Primary Dx); Peritoneal carcinomatosis (HCC); Chemotherapy-induced neuropathy (HCC); Anxiety associated with cancer diagnosis (HCC) Malignant neoplasm o f both ovaries (HCC) [C56.3] Start: 06-20-2023 Telephone encounter Linda A Samina fighter pilot Oncology Comment on above: Bi Developer - O ther Start: 06-13-2023 Telephone encounter Bk flanagan DO Work Phone: Hematology/Oncology Comment on above: Results (Mammogram a nd ultrasound) Start: 06-13-2023 End: 06-13-2023 Subsequent hospital visit by physician Diagnostic Mamm[facility] Mammogram Comment on above: Breast nodule [N63.0 ] Start: 06-02-2023 Telephone encounter Bk flanagan DO Work Phone: Hematology/Oncology Start: 06-02-2023 End: 06-02-2023 ambulatory Treatment Rm 6 [place] [facility] Work Phone: Hematology/Oncology Comment on above: Malignant neoplasm o f both ovaries (HCC) (Primary Dx) Start: 06-01-2023 Orders Only Bk Vazquez Work Phone: Hematology/Oncology Comment on above: Malignant neoplasm o f both ovaries (HCC) (Primary Dx); Disseminated ovarian cancer, unspecified laterality (HCC); Malignant pleural effusion Start: 05-31-2023 Telephone encounter Colin avalos MD Work Phone: Mammogram Comment on above: Orders Patient Question Start: 05-31-2023 End: 05-31-2023 Subsequent hospital visit by physician Xr [facility] [place] Slaughter Work Phone: Radiology Comment on above: Malignant neoplasm o f both ovaries (HCC) [C56.3] Start: 05-31-2023 End: 05-31-2023 Patient encounter procedure Bk Lenz DO Work Phone: [facility] Start: 05-31-2023 End: 05-31-2023 ambulatory [facility] [facility] Work Phone: Hematology/Oncology Comment on above: Malignant neoplasm o f both ovaries (HCC); Peritoneal carcinomatosis (HCC) Malignant neoplasm o f both ovaries (HCC) (Primary Dx); Peritoneal carcinomatosis (HCC); Malignant pleural effusion; Chemotherapy-induced neuropathy (HCC); Anxiety associated with cancer diagnosis (HCC); Breast nodule; Chronic obstructive pulmonary disease, unspecified COPD type (HCC); Coronary artery disease involving [place] coronary artery of [place] heart without angina pectoris Start: 05-26-2023 Telephone encounter Bk flanagan DO Work Phone: Hematology/Oncology Comment on above: Patient Question Start: 05-24-2023 End: 05-24-2023 ambulatory Ellie Romo MD Work Phone: Gynecology Oncology Comment on above: Ovarian cancer, bila teral (HCC) (Primary Dx) Start: 05-24-2023 End: 05-24-2023 Telemedicine consultation with patient Ellie Romo Jr., MD Work Phone: [facility] Start: 05-22-2023 Telephone encounter Becky perkins RN Work Phone: Hematology/Oncology Comment on above: Care Coordination (F ollow Up Note ) Start: 05-19-2023 End: 05-19-2023 Infusion Center Treatment Rm 2 [facility] [employer] [employer] Work Phone: Hematology/Oncology Comment on above: Peritoneal carcinoma tosis (HCC) (Primary Dx); Malignant neoplasm of both ovaries (HCC); Coronary artery disease involving [place] coronary artery of [place] heart without angina pectoris; DVT (deep vein thrombosis) in ; Chronic obstructive pulmonary disease, unspecified COPD type (HCC); Chemotherapy-induced neuropathy (HCC); Anxiety associated with cancer diagnosis (HCC); Disorder of lingual tonsil Start: 05-18-2023 ambulatory Bk Vazquez Work Phone: Hematology/Oncology Comment on above: See picture Start: 05-12-2023 End: 05-12-2023 Telephone encounter Bk Lenz DO Work Phone: Hematology/Oncology Comment on above: Patient Question Malignant neoplasm o f both ovaries (HCC) (Primary Dx); Peritoneal carcinomatosis (HCC); Coronary artery disease involving [place] coronary artery of [place] heart without angina pectoris; DVT (deep vein thrombosis) in ; Chronic obstructive pulmonary disease, unspecified COPD type (HCC); Chemotherapy-induced neuropathy (HCC); Anxiety associated with cancer diagnosis (HCC); Disorder of lingual tonsil Start: 05-12-2023 End: 05-12-2023 ambulatory Treatment Rm 1 [place] Work Phone: [facility] Start: 05-11-2023 Telephone encounter Bk flanagan DO Work Phone: Hematology/Oncology Comment on above: Patient Question Start: 05-10-2023 Refill Bk Vazquez Work Phone: Hematology/Oncology Comment on above: Refill Request Peritoneal carcinoma tosis (HCC) (Primary Dx); Malignant neoplasm of both ovaries (HCC); Coronary artery disease involving [place] coronary artery of [place] heart without angina pectoris; DVT (deep vein thrombosis) in ; Chronic obstructive pulmonary disease, unspecified COPD type (HCC); Chemotherapy-induced neuropathy (HCC); Anxiety associated with cancer diagnosis (HCC); Disorder of lingual tonsil Patient Question Erroneous encounter- disregard Start: 05-04-2023 Telephone encounter Lucia Pate [facility] Radiology Comment on above: Radiology Pre Proced ure Instructions (thoracentesis) Start: 05-02-2023 Orders Only Antoinette Avalos RN [facility] Radiology Comment on above: Malignant neoplasm o f ovary, unspecified laterality (HCC) (Primary Dx); Pleural effusion Start: 05-01-2023 Telephone encounter Ora Walton APRN.VENDOR MANAGER Work Phone: Gynecology Oncology Comment on above: Results Scheduling (Thoracen tesis) Start: 04-28-2023 End: 04-28-2023 ambulatory [facility] [facility] Work Phone: Hematology/Oncology Comment on above: Peritoneal carcinoma tosis (HCC) (Primary Dx) Start: 04-28-2023 End: 04-28-2023 Subsequent hospital visit by physician Ct Prep [facility] Cat Scan Comment on above: Malignant neoplasm o f both ovaries (HCC) [C56.3] Start: 04-05-2023 Telephone encounter Linda Haas fighter pilot Oncology Comment on above: Appointment Start: 03-30-2023 Refill Bk Vazquez Work Phone: Hematology/Oncology Comment on above: Refill Request Start: 03-22-2023 Telephone encounter Chloe Zambrano RN He matology/Oncology Comment on above: Bi Developer - O ther (Treatment Plan ) Start: 03-22-2023 End: 03-22-2023 ambulatory Lab [place] [facility] Work Phone: Hematology/Oncology Comment on above: Malignant neoplasm o f both ovaries (HCC); Peritoneal carcinomatosis (HCC); Ovarian cancer, bilateral (HCC); Screening for nephropathy Ovarian cancer, bila teral (HCC) (Primary Dx); Screening for nephropathy; Malignant neoplasm of both ovaries (HCC) Start: 03-22-2023 End: 03-22-2023 Patient encounter procedure Ellie Romo Jr., MD Work Phone: [facility] Start: 03-15-2023 ambulatory Colin vasquez MD Work Phone: [facility] Start: 03-14-2023 Telephone encounter Getachew chacon MD Work Phone: [facility][Note 3] Comment on above: Question; Erroneous encounter-disregard Start: 03-08-2023 ambulatory Colin vasquez MD Work Phone: [facility] Start: 03-01-2023 Telephone encounter Ellie retana MD Work Phone: [facility][Note 3] Comment on above: Appointment Start: 02-28-2023 Orders Only Bk Vazquez Work Phone: Hematology/Oncology Comment on above: Malignant neoplasm o f both ovaries (HCC) (Primary Dx); Peritoneal carcinomatosis (HCC) Start: 02-27-2023 Telephone encounter Financial Navigator [facility] Work Phone: Financial Services Comment on above: Benefits Investigati on Start: 02-27-2023 End: 02-27-2023 community engagement specialist [facility] Work Phone: Hematology/Oncology Comment on above: Encounter for educat ion (Primary Dx) Start: 02-24-2023 Telephone encounter Bk flanagan DO Work Phone: Hematology/Oncology Comment on above: Results (Tonsil path ology) Start: 02-23-2023 End: 02-23-2023 Telephone encounter Bk Lenz DO Work Phone: Hematology/Oncology Comment on above: AVS 02/23/23, CHEMO S TART Malignant neoplasm o f both ovaries (HCC) (Primary Dx); Peritoneal carcinomatosis (HCC); Coronary artery disease involving [place] coronary artery of [place] heart without angina pectoris; DVT (deep vein thrombosis) in ; Incidental lung nodule, greater than or equal to 8mm; Chronic obstructive pulmonary disease, unspecified COPD type (HCC); Chemotherapy-induced neuropathy (HCC); Anxiety associated with cancer diagnosis (HCC); Disorder of lingual tonsil Start: 02-23-2023 End: 02-23-2023 Patient encounter procedure Bk Lenz DO Work Phone: [facility] Start: 02-22-2023 Telephone encounter Addy Hyatt MD Work Phone: [facility] Gynecologic Oncology Start: 02-20-2023 Telephone encounter Bk flanagan DO Work Phone: Hematology/Oncology Comment on above: Appointment Start: 02-13-2023 Telephone encounter Bk flanagan DO Work Phone: Hematology/Oncology Comment on above: Biopsy Request Start: 02-09-2023 End: 02-09-2023 Visit (SP) Office Bk Lenz DO Work Phone: Hematology/Oncology Comment on above: Malignant neoplasm o f both ovaries (HCC) (Primary Dx); Peritoneal carcinomatosis (HCC); Coronary artery disease involving [place] coronary artery of [place] heart without angina pectoris; History of coronary artery stent placement; Dyspnea on exertion; Lung blebs (HCC); Incidental lung nodule, greater than or equal to 8mm; Disorder of lingual tonsil; Chemotherapy-induced neuropathy (HCC); Anxiety associated with cancer diagnosis (HCC); Malignant neoplasm of right ovary (HCC) AVS 02/04/23 Start: 02-03-2023 ambulatory COLIN SOFIA [facility] Start: 02-03-2023 End: 02-03-2023 Subsequent hospital visit by physician Injection Pet [facility] [employer] PET CT Comment on above: Malignant neoplasm o f ovary, unspecified laterality (HCC) [C56.9] Start: 01-31-2023 Telephone encounter Colin avalos MD Work Phone: [facility] [place] Comment on above: Insurance Authorizat ion (Peer to Peer) Start: 01-26-2023 Telephone encounter Colin avalos MD Work Phone: [facility] [place] Comment on above: Appointment Start: 01-24-2023 ambulatory [facility] [place] Comment on above: Records Start: 01-24-2023 E-mail encounter eddie m caregiver [facility] Start: 12-12-2022 End: 12-12-2022 ambulatory [facility] Start: 11-25-2022 End: 11-26-2022 ambulatory [facility] Start: 11-04-2022 End: 11-05-2022 ambulatory [facility] Start: 10-12-2022 End: 10-12-2022 ambulatory [facility] Start: 09-28-2022 End: 10-03-2022 Evaluation and management of inpatient [facility] Start: 09-21-2022 End: 09-21-2022 ambulatory [facility] Start: 09-21-2022 End: 09-21-2022 Encounter for other preprocedural examination [facility] Start: 09-02-2022 End: 09-03-2022 ambulatory [facility] Start: 08-18-2022 End: 08-18-[address] [facility] Start: 08-12-2022 ambulatory Colin Sofia [facility] Start: 07-25-2022 End: 07-25-2022 Subsequent hospital visit by physician Addy Hyatt MD Work Phone: [facility] Comment on above: Malignant neoplasm o f ovary, unspecified laterality (HCC) (Primary Dx); Secondary malignant neoplasm of peritoneum (HCC) Start: 07-07-2022 End: 07-08-2022 Evaluation and management of inpatient [facility] Start: 07-01-2022 End: 07-01-2022 Subsequent hospital visit by physician Addy Hyatt MD Work Phone: [facility] Comment on above: Malignant neoplasm o f ovary, unspecified laterality (HCC) (Primary Dx); Secondary malignant neoplasm of peritoneum (HCC) Start: 06-30-2022 ambulatory [facility] Start: 06-30-2022 End: 06-30-2022 Subsequent hospital visit by physician Addy Hyatt MD Work Phone: [facility] [address] Comment on above: Secondary malignant neoplasm of peritoneum (HCC) Start: 06-28-2022 End: 06-28-2022 ambulatory [facility] Start: 06-28-2022 End: 06-28-2022 Subsequent hospital visit by physician Addy Hyatt MD Work Phone: [facility] General Surgery Comment on above: S/P laparoscopy (Perlita senthil Dx) Start: 06-14-2022 Telephone encounter Colin avalos MD Work Phone: [facility] [place] Comment on above: External Documents Start: 06-07-2022 Telephone encounter Colin avalos MD Work Phone: [facility] [place] Comment on above: Results Fax MRI order to [facility] Start: 06-03-2022 End: 06-03-2022 Subsequent hospital visit by physician [facility] Work Phone: Radiology Comment on above: Nausea [R11.0] Start: 04-25-2022 Telephone encounter Colin avalos MD Work Phone: [facility] [place] Comment on above: Patient Question Start: 04-06-2022 ambulatory Colin vasquez MD Work Phone: [facility] [place] Start: 02-09-2022 End: 02-09-2022 Patient encounter procedure Colin Sofia MD Work Phone: [facility] [place] Comment on above: Change in bowel habi t (Primary Dx); Lower abdominal pain; Nausea; Diarrhea, unspecified type Start: 01-04-2021 End: 01-04-2021 Subsequent hospital visit by physician Xr [facility] [place] Work Phone: Radiology Comment on above: Finger injury, initi al encounter [S69.90XA] Procedures Date Procedure Procedure Detail Performing Clinician Start: 08-05-2024 Blood count complete auto&auto difrntl wbc Bk Mckay Masci DO Work Phone: Start: 07-29-2024 CBC + DIFF Bk A Mas ci DO Work Phone: Start: 07-22-2024 Blood count complete auto&auto difrntl wbc Bk Mckay Masci DO Work Phone: Start: 07-15-2024 Blood count complete auto&auto difrntl wbc Bk Mckay Masci DO Work Phone: Start: 07-04-2024 Blood count complete auto&auto difrntl wbc Bk Mckay Masci DO Work Phone: Start: 06-27-2024 Abdom paracentesis dx/ther w/imaging guidance Bk Mckay Masci DO Work Phone: Start: 06-26-2024 CBC + DIFF Bk A Mas ci DO Work Phone: Start: 06-26-2024 Comprehensive metabo lic panel Bk Mckay Masci DO Work Phone: Start: 06-13-2024 Blood count complete auto&auto difrntl wbc Bk Mckay Masci DO Work Phone: Start: 06-06-2024 Blood count complete auto&auto difrntl wbc Bk Mckay Masci DO Work Phone: Start: 05-30-2024 Abdom paracentesis dx/ther w/imaging guidance Bk Mckay Masci DO Work Phone: Start: 05-23-2024 Blood count complete auto&auto difrntl wbc Bk Mckay Masci DO Work Phone: Start: 05-16-2024 Blood count complete auto&auto difrntl wbc Bk Mckay Masci DO Work Phone: Start: 05-09-2024 Blood count complete auto&auto difrntl wbc Bk A Masci DO Work Phone: Start: 04-26-2024 Blood count complete auto&auto difrntl wbc Bk A Masci DO Work Phone: Start: 04-19-2024 Blood count complete auto&auto difrntl wbc Bk A Masci DO Work Phone: Start: 04-10-2024 Blood count complete auto&auto difrntl wbc Bk A Masci DO Work Phone: Start: 03-28-2024 Blood count complete auto&auto difrntl wbc Bk A Masci DO Work Phone: Start: 03-28-2024 Immunoassay tumor an tigen quantitative ca 125 Bk A Masci DO Work Phone: Start: 03-20-2024 Blood count complete auto&auto difrntl wbc Bk A Masci DO Work Phone: Start: 03-20-2024 Immunoassay tumor an tigen quantitative ca 125 Bk A Masci DO Work Phone: Start: 03-07-2024 Blood count complete auto&auto difrntl wbc Bk A Masci DO Work Phone: Start: 03-07-2024 Immunoassay tumor an tigen quantitative ca 125 Bk A Masci DO Work Phone: Start: 02-29-2024 Blood count complete auto&auto difrntl wbc Bk A Masci DO Work Phone: Start: 02-29-2024 Immunoassay tumor an tigen quantitative ca 125 Bk A Masci DO Work Phone: Start: 02-21-2024 Blood count complete auto&auto difrntl wbc Bk A Masci DO Work Phone: Start: 02-09-2024 Blood count complete auto&auto difrntl wbc Bk A Masci DO Work Phone: Start: 02-09-2024 Immunoassay tumor an tigen quantitative ca 125 Bk A Masci DO Work Phone: Start: 01-31-2024 Blood count complete auto&auto difrntl wbc Bk A Masci DO Work Phone: Start: 01-31-2024 Immunoassay tumor an tigen quantitative ca 125 Bk A Masci DO Work Phone: Start: 01-24-2024 Blood count complete auto&auto difrntl wbc Bk A Masci DO Work Phone: Start: 01-24-2024 Immunoassay tumor an tigen quantitative ca 125 Bk A Masci DO Work Phone: Start: 01-04-2024 Blood count complete auto&auto difrntl wbc Bk A Masci DO Work Phone: Start: 01-04-2024 Immunoassay tumor an tigen quantitative ca 125 Bk A Masci DO Work Phone: Start: 12-28-2023 Blood count complete auto&auto difrntl wbc Bk A Masci DO Work Phone: Start: 12-28-2023 Immunoassay tumor an tigen quantitative ca 125 Bk A Masci DO Work Phone: Start: 12-20-2023 Blood count complete auto&auto difrntl wbc Bk A Masci DO Work Phone: Start: 12-20-2023 Immunoassay tumor an tigen quantitative ca 125 Bk A Masci DO Work Phone: Start: 11-29-2023 Radiologic exam abdo men 2 views Bk A Masci DO Work Phone: Start: 11-29-2023 Radiologic exam ches t single view Bk A Masci DO Work Phone: Start: 11-29-2023 Blood count complete auto&auto difrntl wbc Bk A Masci DO Work Phone: Start: 11-29-2023 Immunoassay tumor an tigen quantitative ca 125 Bk A Masci DO Work Phone: Start: 11-07-2023 Lipid 1996 panel - S eleuterio or Plasma Lady Cohen RD Work Phone: Start: 09-05-2023 Radiologic exam ches t 2 views Bk A Masci DO Work Phone: Start: 2023 Urnls dip stick/tabl et rgnt auto w/o microscopy [facility] Provider Start: 08-10-2023 Radiologic exam ches t 2 views Bk Mckay Masci DO Work Phone: Start: 07-27-2023 Blood count complete auto&auto difrntl wbc Bk Mckay Masci DO Work Phone: Start: 07-12-2023 Radiologic exam ches t 2 views Bk Mckay Masci DO Work Phone: Start: 07-07-2023 Ct abdomen & pelvis w/contrast material Ora Walton APRN.VENDOR MANAGER Work Phone: Start: 07-07-2023 Ct thorax w/contrast material Ora Walton APRN.VENDOR MANAGER Work Phone: Start: 06-22-2023 Urnls dip stick/tabl et rgnt auto w/o microscopy [facility] Provider Start: 06-22-2023 Blood count complete auto&auto difrntl wbc Bk Mckay Masci DO Work Phone: Start: 06-22-2023 Radiologic exam ches t 2 views Bk Richardsi DO Work Phone: Start: 06-13-2023 Us breast uni real t paloma with image limited Bk Richardsi DO Work Phone: Start: 06-13-2023 End: 06-13-2023 Mammography Bk Richardsi DO Work Phone: Start: 05-31-2023 Radiologic exam ches t 2 views Bk Mckay Masci DO Work Phone: Start: 05-31-2023 Urnls dip stick/tabl et rgnt auto w/o microscopy [facility] Provider Start: 05-31-2023 Blood count complete auto&auto difrntl wbc Bk Mckay Masci DO Work Phone: Start: 05-19-2023 Blood count complete auto&auto difrntl wbc Bk Mckay Masci DO Work Phone: Start: 05-12-2023 Blood count complete auto&auto difrntl wbc Bk Lenz DO Work Phone: Start: 04-28-2023 Ct abdomen & pelvis w/contrast material Ora Walton MANAGER OF TRAINING AND DEVELOPMENT.VENDOR MANAGER Work Phone: Start: 04-28-2023 Ct thorax w/contrast material Ora Walton MANAGER OF TRAINING AND DEVELOPMENT.VENDOR MANAGER Work Phone: Start: 03-22-2023 Blood count complete auto&auto difrntl wbc Bk Lenz DO Work Phone: Start: 03-22-2023 Immunoassay tumor an tigen quantitative ca 125 Ora Walton MANAGER OF TRAINING AND DEVELOPMENT.VENDOR MANAGER Work Phone: Start: 02-03-[address] attenuation whole body Colin Sofia MD Work Phone: Start: 06-30-2022 Comprehensive metabo lic panel Addy Hyatt MD Work Phone: Start: 06-28-2022 OPERATIVE REPORT Physic delmis Generic Start: 06-28-2022 Antibody screen Addy Hyatt MD Work Phone: Start: 06-28-2022 VLAD STUDIO 3 Ck Hyatt MD Work Phone: Start: 06-28-2022 Urine test visual color cmprsn meths Ismael South MD Work Phone: Start: 06-28-2022 Ecg routine ecg w/le ast 12 lds w/i&r Ismael South MD Work Phone: Start: 06-28-2022 Basic metabolic pane l calcium total Ismael South MD Work Phone: Start: 06-28-2022 Blood typing serolog [facility] ab[facility] Ismael South MD Work Phone: Start: 02-09-2022 Adult depression screening assessment Colin Sofia MD Work Phone: Start: 11-16-2021 Lipid 1996 panel - S eleuterio or Plasma Bk Masci DO Work Phone: Start: 02-26-2021 Mammography Colin davis MD Work Phone: Start: 01-04-2021 Radex fingr minimum 2 views Genia Lomax PA-C Work Phone: History of placement of stent for coronary artery disease History of coronary artery stent placement Bk Lenz DO Work Phone: Plan of Treatment Date Care Activity Detail Author Start: 11-07-2028 Lipid panel Lipid Screening [facility] Start: 08-05-2027 Diabetes Screening Diabetes Screening [facility] Start: 07-15-2027 Diabetes Screening Diabetes Screening [facility] Start: 06-26-2027 Diabetes Screening Diabetes Screening [facility] Start: 06-13-2027 Diabetes Screening Diabetes Screening [facility] Start: 06-06-2027 Diabetes Screening Diabetes Screening [facility] Start: 05-09-2027 Diabetes Screening Diabetes Screening [facility] Start: 04-19-2027 Diabetes Screening Diabetes Screening [facility] Start: 04-10-2027 Diabetes Screening Diabetes Screening [facility] Start: 03-28-2027 Diabetes Screening Diabetes Screening [facility] Start: 03-20-2027 Diabetes Screening Diabetes Screening [facility] Start: 03-07-2027 Diabetes Screening Diabetes Screening [facility] Start: 02-28-2027 Diabetes Screening Diabetes Screening [facility] Start: 02-20-2027 Diabetes Screening Diabetes Screening [facility] Start: 02-08-2027 Diabetes Screening Diabetes Screening [facility] Start: 01-30-2027 Diabetes Screening Diabetes Screening [facility] Start: 01-23-2027 Diabetes Screening Diabetes Screening [facility] Start: 01-03-2027 Diabetes Screening Diabetes Screening [facility] Start: 12-27-2026 Diabetes Screening Diabetes Screening [facility] Start: 12-19-2026 Diabetes Screening Diabetes Screening [facility] Start: 11-29-2026 Diabetes Screening Diabetes Screening [facility] Start: 11-16-2026 Lipid 1996 panel - Serum or Plasma Lipid Screening [facility] Start: 11-16-2026 Lipid panel Lipid Screening [facility] Start: 11-16-2026 LIPID SCREEN LIPID SCREEN [facility] Start: 11-07-2026 Diabetes Screening Diabetes Screening [facility] Start: 10-05-2026 Diabetes Screening Diabetes Screening [facility] Start: 09-05-2026 Diabetes Screening Diabetes Screening [facility] Start: 08-10-2026 Diabetes Screening Diabetes Screening [facility] Start: 07-12-2026 Diabetes Screening Diabetes Screening [facility] Start: 06-22-2026 DIABETES SCREEN DIABETES SCREEN [facility] Start: 06-22-2026 Diabetes Screening Diabetes Screening [facility] Start: 05-31-2026 DIABETES SCREEN DIABETES SCREEN [facility] Start: 05-19-2026 DIABETES SCREEN DIABETES SCREEN [facility] Start: 05-12-2026 DIABETES SCREEN DIABETES SCREEN [facility] Start: 05-09-2026 DIABETES SCREEN DIABETES SCREEN [facility] Start: 03-22-2026 DIABETES SCREEN DIABETES SCREEN [facility] Start: 02-09-2026 DIABETES SCREEN DIABETES SCREEN [facility] Start: 07-24-2025 DTaP/Tdap/Td vaccine (2 - Td or Tdap) DTaP/Tdap/Td vaccine (2 - Td or Tdap) [facility] Start: 07-24-2025 DTaP/Tdap/Td Vaccines (2 - Td or Tdap) DTaP/Tdap/Td Vaccines (2 - Td or Tdap) [facility] Start: 07-24-2025 Urine microalbumin profile DTaP,Tdap,Td Vaccine (2 - Td or Tdap) [facility] Start: 05-27-2025 Screening for malignant neoplasm of lung Lung Cancer Screening [facility] Start: 12-11-2024 Screening for malignant neoplasm of lung Lung Cancer Screening [facility] Start: 11-07-2024 Hepatitis B surface antibody level LDL Cholesterol [facility] Start: 09-27-2024 Screening for malignant neoplasm of lung Lung Cancer Screening [facility] Start: 09-06-2024 End: 09-06-2024 ambulatory Hematology/Oncology Comment on above: CBC/CMP/CA 125(PORT)/OV TODAY* OV(PORT)/LABS EARLY/ ON ORAL ETOP* Start: 09-05-2024 End: 09-05-2024 ambulatory 09/05/2024 1:30 PM [facility] Hematology/Oncology [address] [place] [address] (SO)CBC(PORT)/D15 TOPOTECAN/AUTH EXP 10/15/24* Hematology/Oncology Comment on above: (SO)CBC(PORT)/D15 TOPOTECAN/AUTH EXP * Start: 09-03-2024 End: 09-03-2024 Specialty Pharmacy 09/03/2024 7:00 AM EST Specialty Pharmacy [facility] [address] [place] [address] Pharmacist, [facility] 1 [facility] [place], [place] [id number] Refill - etoposide (28 DS) [facility] Comment on above: Refill - etoposide (28 DS) Start: 08-29-2024 End: 08-29-2024 ambulatory 08/29/2024 1:30 PM EST [facility] Hematology[facility]Oncology [address] [place] [address] (SO)CBC(PORT)/D8 TOPOTECAN/AUTH EXP 10/15/24* Hematology/Oncology Comment on above: (SO)CBC(PORT)/D8 TOPOTECAN/AUTH EXP 09/17 11/08* Start: 08-22-2024 End: 08-22-2024 ambulatory 08/22/2024 2:00 PM EST [facility] Hematology/Oncology [address] [place] [address] QMO TOPOTECAN(PORT)LAB&OV AUTH EXP 10/15/24* Hematology/Oncology Comment on above: QMO TOPOTECAN(PORT)LAB&OV 08/21/AUTH EXP 10/15/24* Start: 08-21-2024 End: 08-21-2024 ambulatory Hematology/Oncology Comment on above: (SO)CBC/CMP(S)/CA125(PORT)/OV TODAY* OV(PORT)/LABS EARLY/ CHEMO 08/22* masci Start: 08-15-2024 End: 08-15-2024 ambulatory Hematology/Oncology Comment on above: (SO)CBC(PORT)/D15 ABRAXANE/AUTH EXP 09/15 02/06* (SO)CBC(PORT)/D15 TO POTECAN/AUTH EXP 09/28/24* (SO)CBC(PORT)/D15 TO POTECAN/AUTH EXP 10/15/24* Start: 08-14-2024 End: 08-14-2024 Abdom paracentesis dx/ther w/imaging guidance ABDOMINAL PARACENTESIS W/ IMAGING GUIDANCE Peritoneal carcinomatosis (HCC) Other ascites Disseminated malignant neoplasm of ovary, unspecified laterality (HCC) 08/14/2024 9:00 AM EDT [facility] Start: 08-14-2024 End: 08-14-2024 Admission to same day surgery center 08/14/2024 9:00 AM EDT - 08/14/2024 10:00 AM EDT Surgery [facility] Radiology [address] [place] [address] Renu Esquivel PA-C [address] [place], [place] [phone] ABDOMINAL PARACENTESIS W/ IMAGING GUIDANCE [facility] Comment on above: ABDOMINAL PARACENTESIS W/ IMAGING GUIDAN CE Start: 08-14-2024 Subsequent hospital visit by physician 08/14/2024 9:00 AM EDT Hospital Encounter [facility] [address] [place] [address] Renu Esquivel PA-C [address] [place] [address] Peritoneal carcinomatosis (HCC) [C78.6] , Disseminated malignant neoplasm of ovary, unspecified laterality (HCC) [C56.9] , Other ascites [R18.8] [facility] Comment on above: Peritoneal carcinomatosis (HCC) [C78.6] , Disseminated malignant neoplasm of ovary, unspecified laterality (HCC) [C56.9] , Other ascites [R18.8] Start: 08-12-2024 End: 08-12-2024 ambulatory 08/12/2024 9:00 AM EDT [facility] Hematology/Oncology [address] [place] [address] [facility], [facility] [address] [place] [address] CBC(PORT)* Hematology/Oncology Comment on above: CBC(PORT)* Start: 08-08-2024 End: 08-08-2024 ambulatory Hematology/Oncology Comment on above: (SO)CBC(PORT)/D8 ABRAXANE/AUTH EXP 09/28* (SO)CBC(PORT)/D8 TOP OTECAN/AUTH EXP 09/28/24* (SO)CBC(PORT)/D8 TOP OTECAN/AUTH EXP 10/15/24* (SO)CBC(PORT)/D15 TO POTECAN/AUTH EXP 10/15/24* Start: 08-07-2024 End: 08-07-2024 Abdom paracentesis dx/ther w/imaging guidance ABDOMINAL PARACENTESIS W/ IMAGING GUIDANCE Other ascites Peritoneal carcinomatosis (HCC) 08/07/2024 9:00 AM EDT [facility] Start: 08-07-2024 End: 08-07-2024 Admission to same day surgery center 08/07/2024 9:00 AM EDT - 08/07/2024 10:00 AM EDT Surgery [facility]iology [address] [place] [address] Kandice Waddell, MANAGER OF TRAINING AND DEVELOPMENT.VENDOR MANAGER 1 [place], [place] [phone] ABDOMINAL PARACENTESIS W/ IMAGING GUIDANCE [facility] Comment on above: ABDOMINAL PARACENTESIS W/ IMAGING GUIDAN CE Start: 08-07-2024 Subsequent hospital visit by physician 08/07/2024 9:00 AM EDT Hospital Encounter [facility] [address] [place] [address] Kandice Waddell, MANAGER OF TRAINING AND DEVELOPMENT.VENDOR MANAGER [address] [place], [place] [phone] Peritoneal carcinomatosis (HCC) [C78.6] , Disseminated malignant neoplasm of ovary, unspecified laterality (HCC) [C56.9] , Other ascites [R18.8] [facility] Comment on above: Peritoneal carcinomatosis (HCC) [C78.6] , Disseminated malignant neoplasm of ovary, unspecified laterality (HCC) [C56.9] , Other ascites [R18.8] Start: 08-05-2024 End: 08-05-2024 ambulatory Hematology/Oncology Comment on above: (SO)CBC/CMP(S)/CA125(PORT)/OV TODAY* OV(PORT)/LABS EARLY/ ON ORAL ETOP* Start: 08-01-2024 End: 08-01-2024 ambulatory Hematology/Oncology Comment on above: QMO ABRAXANE(PORT)LAB&OV AUTH EXP 09/28/24* QMO TOPOTECAN(PORT)L AB&OV AUTH EXP 09/28/24* QMO TOPOTECAN(PORT)L AB&OV AUTH EXP 10/15/24* (SO)CBC(PORT)/D8 TOP OTECAN/AUTH EXP 10/15/24* Start: 08-01-2024 End: 08-01-2024 Specialty Pharmacy 08/01/2024 7:15 AM EDT Specialty Pharmacy [facility] [address] [place], [place] [id number] [place] [address] Pharmacist, [facility] [address] [id number] Refill - etoposide (28 DS) C10/24? [facility] Comment on above: Refill - etoposide (28 DS) C10/24? Start: 07-31-2024 End: 07-31-2024 Abdom paracentesis dx/ther w/imaging guidance ABDOMINAL PARACENTESIS W/ IMAGING GUIDANCE 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, unspecified laterality (HCC) Other ascites 07/31/2024 9:00 AM EDT [facility] Start: 07-31-2024 End: 07-31-2024 Admission to same day surgery center 07/31/2024 9:00 AM EDT - 07/31/2024 10:00 AM EDT Surgery [facility] [address] [place] [address] Zaida Mckeon, MANAGER OF TRAINING AND DEVELOPMENT.VENDOR MANAGER 1 [place], [place] [phone] ABDOMINAL PARACENTESIS W/ IMAGING GUIDANCE [facility] Comment on above: ABDOMINAL PARACENTESIS W/ IMAGING GUIDAN CE Start: 07-31-2024 Subsequent hospital visit by physician 07/31/2024 9:00 AM EDT Hospital Encounter [facility] [address] [place] [address] Zaida Mckeon, MANAGER OF TRAINING AND DEVELOPMENT.VENDOR MANAGER [address] [place] [address] Peritoneal carcinomatosis (HCC) [C78.6] , Disseminated malignant neoplasm of ovary, unspecified laterality (HCC) [C56.9] , Other ascites [R18.8] [facility] Comment on above: Peritoneal carcinomatosis (HCC) [C78.6] , Disseminated malignant neoplasm of ovary, unspecified laterality (HCC) [C56.9] , Other ascites [R18.8] Start: 07-31-2024 End: 07-31-2024 ambulatory Hematology/Oncology Comment on above: (SO)CBC/CMP(S)/MG(S)/CA125(PORT)/OV TODA Y* OV(PORT)/LABS EARLY/ CHEMO 08/01* (SO)CBC/CMP(S)/CA125 (PORT)/OV TODAY* Start: 07-29-2024 End: 07-29-2024 ambulatory Hematology/Oncology Comment on above: D15 CBC(PORT)/ONORAL ETOP TODAY* D15 (SO)CBC(PORT)/ON ORAL ETOP TODAY* Start: 07-25-2024 End: 07-25-2024 ambulatory 07/25/2024 1:30 PM EDT [facility] Hematology/Oncology [address] [place] [address] QMO TOPOTECAN(PORT)LAB&OV 07/24/AUTH EXP 10/15/24* Hematology/Oncology Comment on above: QMO TOPOTECAN(PORT)LAB&OV 07/24/AUTH EXP 10/15/24* Start: 07-24-2024 End: 07-24-2024 ambulatory 07/24/2024 3:40 PM EDT Visit (SP) Office Gynecology Oncology [id number] [place] [address] Ellie Romo Jr., MD [address] [place], [place] [phone] treatment discussion Gynecology Oncology Comment on above: treatment discussion Start: 07-24-2024 End: 07-24-2024 Abdom paracentesis dx/ther w/imaging guidance ABDOMINAL PARACENTESIS W/ IMAGING GUIDANCE 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, unspecified laterality (HCC) Other ascites 07/24/2024 9:00 AM EDT [facility] Start: 07-24-2024 End: 07-24-2024 Admission to same day surgery center 07/24/2024 9:00 AM EDT - 07/24/2024 10:00 AM EDT Surgery [facility] [address] [place] [address] Renu Esquivel PA-C [address] [place], [place] [phone] ABDOMINAL PARACENTESIS W/ IMAGING GUIDANCE [facility] Comment on above: ABDOMINAL PARACENTESIS W/ IMAGING GUIDAN CE Start: 07-24-2024 Subsequent hospital visit by physician 07/24/2024 9:00 AM EDT Hospital Encounter [facility]iology [address] [place] [address] Renu Esquivel PA-C [address] [place], [place] [phone] Peritoneal carcinomatosis (HCC) [C78.6] , Disseminated malignant neoplasm of ovary, unspecified laterality (HCC) [C56.9] , Other ascites [R18.8] [facility] Comment on above: Peritoneal carcinomatosis (HCC) [C78.6] , Disseminated malignant neoplasm of ovary, unspecified laterality (HCC) [C56.9] , Other ascites [R18.8] Start: 07-24-2024 End: 07-24-2024 ambulatory Hematology/Oncology Comment on above: (SO)CBC/CMP(S)/CA125(PORT)/OV TODAY* OV(PORT)/LABS EARLY/ CHEMO 07/25* Start: 07-22-2024 End: 07-22-2024 ambulatory Hematology/Oncology Comment on above: D8 CBC(PORT)/ONORAL ETOP TODAY* D8 (SO)CBC(PORT)/GINA RAL ETOP TODAY* Start: 07-18-2024 End: 07-18-2024 ambulatory Hematology/Oncology Comment on above: (SO)CBC(PORT)/D15 ABRAXANE/AUTH EXP 09/15 02/06* (SO)CBC(PORT)/D15 TO POTECAN/AUTH EXP 09/28/24* (SO)CBC(PORT)/D15 TO POTECAN/AUTH EXP 10/15/24* Start: 07-17-2024 End: 07-17-2024 Abdom paracentesis dx/ther w/imaging guidance ABDOMINAL PARACENTESIS W/ IMAGING GUIDANCE 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, unspecified laterality (HCC) Other ascites 07/17/2024 9:00 AM EDT [facility] Start: 07-17-2024 End: 07-17-2024 Admission to same day surgery center 07/17/2024 9:00 AM EDT - 07/17/2024 10:00 AM EDT Surgery [facility] Radiology [address] [place] [address] Renu Esquivel PA-C [address] [place], [place] [phone] ABDOMINAL PARACENTESIS W/ IMAGING GUIDANCE [facility] Comment on above: ABDOMINAL PARACENTESIS W/ IMAGING GUIDAN CE Start: 07-17-2024 Subsequent hospital visit by physician 07/17/2024 9:00 AM EDT Hospital Encounter [facility] Radiology [address] [place] [address] Renu Esquivel PA-C [address] [place] [address] Peritoneal carcinomatosis (HCC) [C78.6] , Disseminated malignant neoplasm of ovary, unspecified laterality (HCC) [C56.9] , Other ascites [R18.8] [facility] Comment on above: Peritoneal carcinomatosis (HCC) [C78.6] , Disseminated malignant neoplasm of ovary, unspecified laterality (HCC) [C56.9] , Other ascites [R18.8] Start: 07-15-2024 End: 07-15-2024 ambulatory 07/15/2024 7:45 AM EDT [facility] Hematology/Oncology [address] [place] [address] Wstr, Lab[facility] [address] [place] [address] CBC/CMP/CA125/HEP REMOTE(PORT)/START ORAL ETOP TODAY* Hematology/Oncology Comment on above: CBC/CMP/CA125/HEP REMOTE(PORT)/START ORA L ETOP TODAY* Start: 07-11-2024 End: 07-11-2024 ambulatory Hematology/Oncology Comment on above: (SO)CBC(PORT)/D8 ABRAXANE/AUTH EXP 09/28* (SO)CBC(PORT)/D8 TOP OTECAN/AUTH EXP 09/28/24* (SO)CBC(PORT)/D8 TOP OTECAN/AUTH EXP 10/15/24* (SO)CBC(PORT)/D15 TO POTECAN/AUTH EXP 10/15/24* Start: 07-10-2024 End: 10-09-2024 Chronic hepatitis differentiation between hepatitis B and C virus panel - Serum or Plasma HEP REMOTE PANEL BL Lab Routine Peritoneal carcinomatosis (HCC) Expected: 07/10/2024, Expires: 10/09/2024 [facility] Work Phone: Comment on above: Expected: 07/10/2024, Expires: Start: 07-10-2024 End: 07-10-2024 Abdom paracentesis dx/ther w/imaging guidance ABDOMINAL PARACENTESIS W/ IMAGING GUIDANCE 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, unspecified laterality (HCC) Other ascites 07/10/2024 9:00 AM EDT [facility] IR Start: 07-10-2024 End: 07-10-2024 Admission to same day surgery center 07/10/2024 9:00 AM EDT - 07/10/2024 10:00 AM EDT Surgery [facility] Radiology [address] [place] [address] Kandice Waddell, SHALINI.VENDOR MANAGER [address] [place] [address] ABDOMINAL PARACENTESIS W/ IMAGING GUIDANCE [facility] Comment on above: ABDOMINAL PARACENTESIS W/ IMAGING GUIDAN CE Start: 07-10-2024 Subsequent hospital visit by physician 07/10/2024 9:00 AM EDT Hospital Encounter [facility] Radiology [address] [place] [address] Kandice Waddell APRN.VENDOR MANAGER [address] [facility] [place] [address] Peritoneal carcinomatosis (HCC) [C78.6], Disseminated malignant neoplasm of ovary, unspecified laterality (HCC) [C56.9], Other ascites [R18.8] [facility] Comment on above: Peritoneal carcinomatosis (HCC) [C78.6], Disseminated malignant neoplasm of ovary, unspecified laterality (HCC) [C56.9], Other ascites [R18.8] Start: 07-09-2024 End: 07-09-2024 Abdom paracentesis dx/ther w/imaging guidance ABDOMINAL PARACENTESIS W/ IMAGING GUIDANCE 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, unspecified laterality (HCC) Other ascites 07/09/2024 2:00 PM EDT [facility] Start: 07-09-2024 End: 07-09-2024 Admission to same day surgery center 07/09/2024 2:00 PM EDT - 07/09/2024 3:00 PM EDT Surgery [facility] Radiology [address] [place] [address] Wyatt Jenkins PA-C [address] [place], [place] [phone] ABDOMINAL PARACENTESIS W/ IMAGING GUIDANCE [facility] Comment on above: ABDOMINAL PARACENTESIS W/ IMAGING GUIDAN CE Start: 07-09-2024 Subsequent hospital visit by physician 07/09/2024 2:00 PM EDT Hospital Encounter [facility] Radiology [address] [place] [address] Wyatt Jenkins PA-C [address] [place], [place] [phone] Peritoneal carcinomatosis (HCC) [C78.6], Disseminated malignant neoplasm of ovary, unspecified laterality (HCC) [C56.9], Other ascites [R18.8] [facility] Comment on above: Peritoneal carcinomatosis (HCC) [C78.6], Disseminated malignant neoplasm of ovary, unspecified laterality (HCC) [C56.9], Other ascites [R18.8] Start: 07-09-2024 End: 07-09-2024 ambulatory 07/09/2024 11:00 AM [facility] Hematology/Oncology [address] [place] [id number] [facility] VV- Ovarian Ca- Potential [id number], [id number], [id number], [id number], [id number], [id number], [id number], [id number], PEN3L03, [id number], [id number] Hematology/Oncology Comment on above: [facility] VV- Ovarian Ca- Potential [id number], [id number], [id number], [id number], [id number], [id number], [id number], [id number], FML0O06, [id number], [id number] Start: 07-08-2024 HPV TESTING HPV TESTING [facility] Start: 07-08-2024 PAP TESTING PAP TESTING [facility] Start: 07-08-2024 Screening for malignant neoplasm of cervix [facility] Start: 07-07-2024 Influenza vaccination Lung Cancer Screening [facility] Start: 07-07-2024 Screening for malignant neoplasm of lung Lung Cancer Screening [facility] Start: 07-04-2024 End: 07-04-2024 ambulatory Hematology/Oncology Comment on above: QMO ABRAXANE(PORT)LAB&OV 07/03/AUTH EXP 1 11/29/23* QMO TOPOTECAN(PORT)L AB&OV 07/03/AUTH EXP 09/28/24* QMO TOPOTECAN(PORT)L AB&OV 07/03/AUTH EXP 10/15/24* (SO)CBC(PORT)/D8 TOP OTECAN/AUTH EXP 10/15/24* Start: 07-03-2024 End: 07-03-2024 Abdom paracentesis dx/ther w/imaging guidance ABDOMINAL PARACENTESIS W/ IMAGING GUIDANCE 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, unspecified laterality (HCC) Other ascites 07/03/2024 9:00 AM EDT [facility] Start: 07-03-2024 End: 07-03-2024 Admission to same day surgery center 07/03/2024 9:00 AM EDT - 07/03/2024 10:00 AM EDT Surgery [facility]iology [address] [place] [address] Renu Esquivel PA-C [address] [place], [place] [phone] ABDOMINAL PARACENTESIS W/ IMAGING GUIDANCE [facility] Comment on above: ABDOMINAL PARACENTESIS W/ IMAGING XUAN CE Start: 07-03-2024 Subsequent hospital visit by physician 07/03/2024 9:00 AM EDT Hospital Encounter [facility]iology [address] [place] [address] Renu Esquivel PA-C [address] [place] [address] Peritoneal carcinomatosis (HCC) [C78.6], Disseminated malignant neoplasm of ovary, unspecified laterality (HCC) [C56.9], Other ascites [R18.8] [facility] Comment on above: Peritoneal carcinomatosis (HCC) [C78.6], Disseminated malignant neoplasm of ovary, unspecified laterality (HCC) [C56.9], Other ascites [R18.8] Start: 07-03-2024 End: 07-03-2024 ambulatory Hematology/Oncology Comment on above: (SO)CBC/CMP(S)/MG(S)/CA125(PORT)/OV TODA Y* OV(PORT)/LABS EARLY/ CHEMO 07/04* (SO)CBC/CMP(S)/CA125 (PORT)/OV TODAY* Start: 06-28-2024 End: 06-28-2024 ambulatory 06/28/2024 8:00 AM EDT Infusion Center Hematology/Oncology [address] [place] [address] QMO TOPOTECAN(PORT)LAB&OV EXP 10/15/24* Hematology/Oncology Comment on above: QMO TOPOTECAN(PORT)LAB&OV EXP 10/15/24* Start: 06-27-2024 End: 06-27-2024 Abdom paracentesis dx/ther w/imaging guidance ABDOMINAL PARACENTESIS W/ IMAGING GUIDANCE 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, unspecified laterality (HCC) Other ascites 06/27/2024 9:00 AM EDT [facility] Start: 06-27-2024 End: 06-27-2024 Admission to same day surgery center 06/27/2024 9:00 AM EDT - 06/27/2024 10:00 AM EDT Surgery [facility] INTER[facility]AL RADIOLOGY [address] [place] [address] Wyatt Jenkins PA-C [address] [place] [phone] ABDOMINAL PARACENTESIS W/ IMAGING GUIDANCE [facility] RADIOLOG[facility] Comment on above: ABDOMINAL PARACENTESIS W/ IMAGING GUIDAN CE Start: 06-27-2024 Subsequent hospital visit by physician 06/27/2024 9:00 AM EDT Hospital Encounter [facility] INTER[facility]AL RADIOLOGY [address] [place] [address] Wyatt Jenkins PA-C [address] [place] [address] Peritoneal carcinomatosis (HCC) [C78.6], Disseminated malignant neoplasm of ovary, unspecified laterality (HCC) [C56.9], Other ascites [R18.8] [facility] INTER[facility] RADIOLOG[facility] Comment on above: Peritoneal carcinomatosis (HCC) [C78.6], Disseminated malignant neoplasm of ovary, unspecified laterality (HCC) [C56.9], Other ascites [R18.8] Start: 06-26-2024 End: 06-26-2024 ambulatory 06/26/2024 9:30 AM EDT Visit (SP) Office Hematology/Oncology [address] [place], [place] [phone] kB Lenz DO [address] [facility] [address] [place], [place] [phone] OV(PORT)/LABS EARLY/CHEMO 06/28* Hematology/Oncology Comment on above: OV(PORT)/LABS EARLY/CHEMO 06/28* Start: 06-26-2024 End: 06-26-2024 ambulatory 06/26/2024 8:15 AM EDT Infusion Center Hematology/Oncology [address] [place], [place] [phone] [facility], [facility] [address] [place] [address] (SO)CBC/CMP(S)/CA125(PO RT)/OV TODAY* Hematology/Oncology Comment on above: (SO)CBC/CMP(S)/CA125(PORT)/OV TODAY* Start: 06-25-2024 End: 06-25-2024 Abdom paracentesis dx/ther w/imaging guidance ABDOMINAL PARACENTESIS W/ IMAGING GUIDANCE 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, unspecified laterality (HCC) Other ascites 06/25/2024 2:00 PM EDT [facility] Start: 06-25-2024 End: 06-25-2024 Admission to same day surgery center 06/25/2024 2:00 PM EDT - 06/25/2024 3:00 PM EDT Surgery [facility] Radiology [address] [place] [address] Zaida Mckeon, MANAGER OF TRAINING AND DEVELOPMENT.VENDOR MANAGER [address] [place], [place] [phone] ABDOMINAL PARACENTESIS W/ IMAGING GUIDANCE [facility] Comment on above: ABDOMINAL PARACENTESIS W/ IMAGING GUIDAN CE Start: 06-25-2024 Subsequent hospital visit by physician 06/25/2024 2:00 PM EDT Hospital Encounter [facility] Radiology [address] [place] [address] Zaida Mckeon, MANAGER OF TRAINING AND DEVELOPMENT.VENDOR MANAGER [address] [place] [id number] Peritoneal carcinomatosis (HCC) [C78.6], Disseminated malignant neoplasm of ovary, unspecified laterality (HCC) [C56.9], Other ascites [R18.8] [facility] Comment on above: Peritoneal carcinomatosis (HCC) [C78.6], Disseminated malignant neoplasm of ovary, unspecified laterality (HCC) [C56.9], Other ascites [R18.8] Start: 06-20-2024 End: 06-20-2024 ambulatory Hematology/Oncology Comment on above: (SO)CBC(PORT)/D15 ABRAXANE/AUTH EXP * (SO)CBC(PORT)/D15 AB RAXANE/AUTH EXP 09/28/24* (SO)CBC(PORT)/D15 TO POTECAN/AUTH EXP 09/28/24* (SO)CBC(PORT)/D15 TO POTECAN/AUTH EXP 10/15/24* Start: 06-16-2024 Influenza vaccination [facility] Start: 06-13-2024 Mammography [facility] Start: 06-13-2024 Screening for malignant neoplasm of breast Mammogram Screening [facility] Start: 06-13-2024 End: 06-13-2024 ambulatory Hematology/Oncology Comment on above: (SO)CBC/CMP(S)(PORT)/D8 ABRAXANE/AUTH EX P 06/21/24* (SO)CBC/CMP(S)(PORT) /D8 ABRAXANE/AUTH EXP 09/28/24* (SO)CBC(PORT)/D8 ABR AXANE/AUTH EXP 09/28/24* (SO)CBC(PORT)/D8 TOP OTECAN/AUTH EXP 09/28/24* (SO)CBC(PORT)/D8 TOP OTECAN/AUTH EXP 10/15/24* Start: 06-11-2024 End: 06-11-2024 Abdom paracentesis dx/ther w/imaging guidance ABDOMINAL PARACENTESIS W/ IMAGING GUIDANCE 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, unspecified laterality (HCC) Other ascites 06/11/2024 2:00 PM EDT [facility] Start: 06-11-2024 End: 06-11-2024 Admission to same day surgery center 06/11/2024 2:00 PM EDT - 06/11/2024 3:00 PM EDT Surgery [facility] [address] [place] [address] Carmelo Lugo, SHALINI.VENDOR MANAGER 1 [facility] [address] [place], [place] [id number] ABDOMINAL PARACENTESIS W/ IMAGING GUIDANCE [facility] Comment on above: ABDOMINAL PARACENTESIS W/ IMAGING XUAN WASSERMAN Start: 06-11-2024 Subsequent hospital visit by physician 06/11/2024 2:00 PM EDT Hospital Encounter [facility] [address] [place] [address] Carmelo Lugo APRN.VENDOR MANAGER 1 [facility] [address] [place] [address] Peritoneal carcinomatosis (HCC) [C78.6] [facility] Comment on above: Peritoneal carcinomatosis (HCC) [C78.6] Start: 06-06-2024 End: 06-06-2024 ambulatory Hematology/Oncology Comment on above: QMO ABRAXANE(PORT)LAB&OV 06/05/AUTH EXP * QMO ABRAXANE(PORT)LA B&OV 06/05/AUTH EXP 09/28/24* CBC/CMP(S)/CA-125/QM O TOPOTECAN(PORT)/AUTH EXP 09/28/24* Start: 06-05-2024 End: 06-05-2024 ambulatory Hematology/Oncology Comment on above: (SO)CBC/CMP(S)/CA125(PORT)/OV TODAY* OV(PORT)/LABS EARLY/ CHEMO 06/06* (SO)CBC/CMP(S)/MG(S) /CA125(PORT)/OV TODAY* Start: 05-31-2024 End: 05-31-2024 ambulatory 05/31/2024 3:30 PM EDT Visit (SP) Office Hematology/Oncology [address] [place] [address] Bk Lenz DO [address] [facility] [place] [address] DISCUSS CHANGING TREATMENT* Hematology/Oncology Comment on above: DISCUSS CHANGING TREATMENT* Start: 05-30-2024 End: 05-30-2024 Abdom paracentesis dx/ther w/imaging guidance ABDOMINAL PARACENTESIS W/ IMAGING GUIDANCE 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, unspecified laterality (HCC) 05/30/2024 10:00 AM EDT [facility] Start: 05-30-2024 End: 05-30-2024 Admission to same day surgery center 05/30/2024 10:00 AM EDT - 05/30/2024 11:00 AM EDT Surgery [facility] [address] [facility] [place] [address] Bairon, Kandice, MANAGER OF TRAINING AND DEVELOPMENT.VENDOR MANAGER [address] [facility] [place] [address] ABDOMINAL PARACENTESIS Send fluid [facility] Comment on above: ABDOMINAL PARACENTESIS Send fluid Start: 05-30-2024 Subsequent hospital visit by physician 05/30/2024 10:00 AM EDT Hospital Encounter [facility] [address] [place] [address] Bairon, Kandice, MANAGER OF TRAINING AND DEVELOPMENT.VENDOR MANAGER [address] [place] [address] Peritoneal carcinomatosis (HCC) [C78.6] [facility] Comment on above: Peritoneal carcinomatosis (HCC) [C78.6] Start: 05-30-2024 End: 05-30-2024 ambulatory 05/30/2024 9:30 AM EDT Infusion Center Hematology/Oncology [address] [place] [address] (SO)CBC(PORT)/D15 ABRAXANE/AUTH EXP 06/21/24* Hematology/Oncology Comment on above: (SO)CBC(PORT)/D15 ABRAXANE/AUTH EXP * Start: 05-27-2024 End: 05-27-2024 ambulatory 05/27/2024 10:30 AM EDT Infusion Center Hematology/Oncology [address] [place] [address] Wstr, Lab/Port [facility] [address] [place] [address] Hematology/Oncology Comment on above: ACCESS PORT FOR CT Start: 05-27-2024 End: 05-27-2024 Patient encounter procedure Cat Scan Comment on above: 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] Start: 05-23-2024 End: 05-23-2024 ambulatory Hematology/Oncology Comment on above: (SO)CBC/CMP(S)(PORT)/D8 ABRAXANE/AUTH EX P 06/21/24* (SO)CBC(PORT)/D15 AB RAXANE/AUTH EXP 06/21/24* (SO)CBC(PORT)/D15 AB RAXANE/AUTH EXP 09/28/24* Start: 05-16-2024 End: 05-16-2024 ambulatory Hematology/Oncology Comment on above: QMO ABRAXANE(PORT)LAB&OV 05/15/AUTH EXP * (SO)CBC/CMP(S)(PORT) /D8 ABRAXANE/AUTH EXP 06/21/24* (SO)CBC/CMP(S)(PORT) /D8 ABRAXANE/AUTH EXP 09/28/24* (SO)CBC(PORT)/D8 ABR AXANE/AUTH EXP 09/28/24* Start: 05-15-2024 End: 05-15-2024 ambulatory Hematology/Oncology Comment on above: (SO)CBC/CMP(S)/CA125(PORT)/OV TODAY* OV(PORT)/LABS EARLY/ CHEMO 05/16* Start: 05-10-2024 End: 05-10-2024 ambulatory Hematology/Oncology Comment on above: QMO ABRAXANE(PORT)LAB&OV 05/09/AUTH EXP * QMO ABRAXANE(PORT)LA B&OV 05/09/AUTH EXP 09/28/24* Start: 05-09-2024 End: 05-09-2024 ambulatory Hematology/Oncology Comment on above: pt arriving at 1245 OV(PORT)/LABS EARLY/ CHEMO 05/10* (SO)CBC/CMP(S)/CA125 (PORT)/OV TODAY* (SO)CBC/CMP(S)/MG(S) /CA125(PORT)/OV TODAY* Start: 05-07-2024 Influenza vaccination LUNG CANCER SCREENING [facility] Start: 05-02-2024 End: 05-02-2024 ambulatory 05/02/2024 9:30 AM EDT Infusion Center Hematology/Oncology [address] [place] [address] (SO)CBC(PORT)/D15 ABRAXANE/AUTH EXP 06/21/24* Hematology/Oncology Comment on above: (SO)CBC(PORT)/D15 ABRAXANE/AUTH EXP * Start: 04-25-2024 End: 04-25-2024 ambulatory Hematology/Oncology Comment on above: (SO)CBC/CMP(S)(PORT)/D8 ABRAXANE/AUTH EX P 06/21/24* (SO)CBC(PORT)/D15 AB RAXANE/AUTH EXP 06/21/24* (SO)CBC(PORT)/D15 AB RAXANE/AUTH EXP 09/28/24* Start: 04-19-2024 End: 04-19-2024 ambulatory Hematology/Oncology Comment on above: QMO ABRAXANE(PORT)LAB&OV 04/17/AUTH EXP 06/21/24* (SO)CBC/CMP(S)(PORT) /D8 ABRAXANE/AUTH EXP 06/21/24* Start: 04-17-2024 End: 04-17-2024 ambulatory Hematology/Oncology Comment on above: (SO)CBC/CMP(S)/CA125(PORT)/OV TODAY* OV(PORT)/LABS EARLY/ CHEMO 04/19*() Start: 04-11-2024 End: 04-11-2024 ambulatory 04/11/2024 8:30 AM EDT Infusion Center Hematology/Oncology [address] [place] [address] QMO ABRAXANE(PORT)LAB&OV 04/10/AUTH EXP 06/21/24* Hematology/Oncology Comment on above: QMO ABRAXANE(PORT)LAB&OV 04/10/AUTH EXP * Start: 04-10-2024 End: 04-10-2024 ambulatory Hematology/Oncology Comment on above: OV(PORT)/LABS EARLY/CHEMO 04/11*( ) pt arriving at 1245 Start: 04-04-2024 End: 04-04-2024 ambulatory 04/04/2024 9:30 AM EDT Infusion Center Hematology/Oncology [address] [place] [address] (SO)CBC(PORT)/D15 ABRAXANE/AUTH EXP 06/21/24* Hematology/Oncology Comment on above: (SO)CBC(PORT)/D15 ABRAXANE/AUTH EXP * Start: 03-28-2024 End: 03-28-2024 ambulatory Hematology/Oncology Comment on above: (SO)CBC/CMP(S)(PORT)/D8 ABRAXANE/AUTH EX P 06/21/24* skip d15 due to jazmin . see 03/21 te Start: 03-21-2024 End: 03-21-2024 ambulatory 03/21/2024 9:30 AM EDT Infusion Center Hematology/Oncology [address] [place] [address] QMO ABRAXANE(PORT)LAB&OV 03/20/AUTH EXP 06/21/24* Hematology/Oncology Comment on above: QMO ABRAXANE(PORT)LAB&OV /5/AUTH EXP 06/21/24* Start: 03-20-2024 End: 03-20-2024 ambulatory Hematology/Oncology Comment on above: (SO)CBC/CMP(S)/CA125(PORT)/OV TODAY* OV(PORT)/LABS EARLY/ CHEMO 03/21* Start: 03-07-2024 End: 03-07-2024 ambulatory 03/07/2024 8:30 AM EDT Infusion Center Hematology/Oncology [address] [place] [address] (SO)CBC(PORT)/D15 ABRAXANE/AUTH EXP 06/21/24* Hematology/Oncology Comment on above: (SO)CBC(PORT)/D15 ABRAXANE/AUTH EXP * Start: 02-29-2024 End: 02-29-2024 ambulatory 02/29/2024 8:30 AM EDT Infusion Center Hematology/Oncology [address] [place] [address] (SO)CBC/CMP(S)(PORT)/D8 ABRAXANE/AUTH EXP 06/21/24* Hematology/Oncology Comment on above: (SO)CBC/CMP(S)(PORT)/D8 ABRAXANE/AUTH EX P 06/21/24* Start: 02-22-2024 End: 02-22-2024 ambulatory 02/22/2024 8:30 AM [facility] Infusion Center Hematology/Oncology [address] [place] [address] QMO ABRAXANE(PORT)LAB&OV 02/20/AUTH EXP 06/21/24* Hematology/Oncology Comment on above: QMO ABRAXANE(PORT)LAB&OV 02/20/AUTH EXP 06/21/24* Start: 02-21-2024 End: 02-21-2024 ambulatory Hematology/Oncology Comment on above: (SO)CBC/CMP(S)/CA125(PORT)/OV TODAY* OV(PORT)/LABS EARLY/ CHEMO 02/21* Start: 01-27-2024 ANNUAL PCP TEAM CHRONIC DISEASE VISIT ANNUAL PCP TEAM CHRONIC DISEASE VISIT [facility] Start: 10-16-2023 Behavioral Health Screening Behavioral Health Screening [facility] Start: 10-16-2023 Depression Assessment Depression Assessment [facility] Start: 06-16-2023 Influenza vaccination [facility] Start: 05-12-2023 End: 07-12-2023 UA DIP, URINE (POC) UA DIP, URINE (POC) Lab Routine Peritoneal carcinomatosis (HCC) Malignant neoplasm of both ovaries (HCC) Coronary artery disease involving [place] coronary artery of [place] heart without angina pectoris DVT (deep vein thrombosis) in Chronic obstructive pulmonary disease, unspecified COPD type (HCC) Chemotherapy-induced neuropathy (HCC) Anxiety associated with cancer diagnosis (HCC) Disorder of lingual tonsil Expected: 05/12/2023, Expires: 07/12/2023 [facility] Work Phone: Comment on above: Expected: 05/12/2023, Expires: Start: 05-02-2023 End: 07-02-2023 CBC W Auto Differential panel - Blood CBC + DIFF Lab Routine Malignant neoplasm of ovary, unspecified laterality (HCC) Pleural effusion Expected: 05/02/2023, Expires: 07/02/2023 [facility] Work Phone: Comment on above: Expected: 05/02/2023, Expires: 3 Start: 05-02-2023 End: 07-02-2023 PT panel - Platelet poor plasma by Coagulation assay PROTHROMBIN TIME/PT Lab Routine Malignant neoplasm of ovary, unspecified laterality (HCC) Pleural effusion Expected: 05/02/2023, Expires: 07/02/2023 [facility] Work Phone: Comment on above: Expected: 05/02/2023, Expires: 3 Start: 05-01-2023 End: 07-01-2023 aPTT in Platelet poor plasma by Coagulation assay ACTIVATED PTT Lab Routine Ovarian cancer, bilateral (HCC) Expected: 05/01/2023, Expires: 07/01/2023 [facility] Work Phone: Comment on above: Expected: 05/01/2023, Expires: 3 Start: 05-01-2023 End: 07-01-2023 Cancer Ag 125 [Units/volume] in Serum or Plasma CA 125 BLD Lab Routine Ovarian cancer, bilateral (HCC) Expected: 05/01/2023, Expires: 07/01/2023 [facility] Work Phone: Comment on above: Expected: 05/01/2023, Expires: 3 Start: 05-01-2023 End: 07-01-2023 CBC W Auto Differential panel - Blood CBC + DIFF Lab Routine Ovarian cancer, bilateral (HCC) Expected: 05/01/2023, Expires: 07/01/2023 [facility] Work Phone: Comment on above: Expected: 05/01/2023, Expires: 3 Start: 05-01-2023 End: 07-01-2023 Comprehensive metabolic 2000 panel - Serum or Plasma COMP METABOLIC PANEL Lab Routine Ovarian cancer, bilateral (HCC) Expected: 05/01/2023, Expires: 07/01/2023 [facility] Work Phone: Comment on above: Expected: 05/01/2023, Expires: 3 Start: 05-01-2023 End: 07-01-2023 Magnesium [Mass/volume] in Serum or Plasma MAGNESIUM BLD Lab Routine Ovarian cancer, bilateral (HCC) Expected: 05/01/2023, Expires: 07/01/2023 [facility] Work Phone: Comment on above: Expected: 05/01/2023, Expires: 3 Start: 05-01-2023 End: 07-01-2023 PT panel - Platelet poor plasma by Coagulation assay PROTHROMBIN TIME/PT Lab Routine Ovarian cancer, bilateral (HCC) Expected: 05/01/2023, Expires: 07/01/2023 [facility] Work Phone: Comment on above: Expected: 05/01/2023, Expires: 3 Start: 03-22-2023 End: 05-22-2023 CBC panel - Blood by Automated count CBC Lab Routine Ovarian cancer, bilateral (HCC) Expected: 03/22/2023, Expires: 05/22/2023 [facility] Work Phone: Comment on above: Expected: 03/22/2023, Expires: 3 Start: 03-15-2023 End: 03-15-2023 Patient encounter procedure 03/15/2023 Office Visit Gynecologic Oncology Sherlyn Davis APRN - VENDOR MANAGER [address] [address] [facility] Gynecologic Oncology Start: 03-01-2023 End: 05-01-2023 Chronic hepatitis differentiation between hepatitis B and C virus panel - Serum or Plasma HEP REMOTE PANEL BL Lab Routine Malignant neoplasm of both ovaries (HCC) Peritoneal carcinomatosis (HCC) Expected: 03/01/2023, Expires: 05/01/2023 [facility] Work Phone: Comment on above: Expected: 03/01/2023, Expires: 3 Start: 02-09-2023 Adult depression screening assessment DEPRESSION SCREENING [facility] Start: 02-09-2023 COVID-19 VACCINE (#1) COVID-19 VACCINE (#1) [facility] Comment on above: Postponed from 1970 (Declined at t his time) Postponed from 02/09 (Declined at this time) Start: 02-09-2023 COVID-19 VACCINE (1) COVID-19 VACCINE (1) [facility] Comment on above: Postponed from 1970 (Declined at t his time) Start: 02-09-2023 HEPATITIS C SCREENING HEPATITIS C SCREENING [facility] Comment on above: Postponed from 1983 (Declined at t his time) Start: 02-09-2023 HIV SCREENING HIV SCREENING [facility] Comment on above: Postponed from 1983 (Declined at t his time) Start: 01-02-2023 DIABETES SCREEN DIABETES SCREEN [facility] Start: 10-16-2022 DEPRESSION ASSESSMENT DEPRESSION ASSESSMENT [facility] Start: 09-02-2022 End: 09-02-2022 [facility] REPA[facility] Oncology Start: 08-12-2022 End: 08-12-2022 Patient encounter procedure [facility] [place] UTILITIES EQUIPMENT REPAIRER Oncology Start: 07-22-2022 End: 07-22-2022 [facility] REPAIR[facility] Oncology Start: 07-11-2022 End: 07-11-2022 Patient encounter procedure 07/11/2022 Office Visit Gynecologic Oncology Addy Hyatt MD [address] [facility] [place] [address] [facility] [place] UTILITIES EQUIPMENT REPAIRER Oncology Start: 07-01-2022 End: 07-01-2022 Patient encounter procedure 07/01/2022 Appointment Infusion Therapy [facility] Start: 07-01-2022 Subsequent hospital visit by physician 07/01/2022 Hospital Encounter Infusion Therapy [facility] Start: 06-16-2022 Influenza vaccination [facility] Start: 05-16-2022 Influenza vaccination Flu vaccine (#1) [facility] Start: 02-26-2022 Mammography MAMMOGRAM [facility] Start: 07-08-2020 Screening for malignant neoplasm of cervix Cervical Cancer Screening [facility] Start: 06-01-2020 COLORECTAL CANCER SCREENING COLORECTAL CANCER SCREENING [facility] Start: 06-01-2020 FECAL OCCULT BLOOD FECAL OCCULT BLOOD [facility] Start: 06-01-2020 Screening for malignant neoplasm of colon [facility] Start: 2015 Shingles vaccine (1 of 2) Shingles vaccine (1 of 2) [facility] Start: 2015 SHINGRIX VACCINE (1 of 2) SHINGRIX VACCINE (1 of 2) [facility] Start: 2015 Zoster Vaccines (1 of 2) Zoster Vaccines (1 of 2) [facility] Start: 02-25-2015 Hepatitis B surface antibody level LDL CHOLESTEROL [facility] Start: 2010 COLOGUARD (FIT-DNA) COLOGUARD (FIT-DNA) [facility] Start: 2010 Colonoscopy COLONOSCOPY [facility] Start: [address] COLONOGRAPHY [facility] Start: 2010 Screening for malignant neoplasm of colon [facility] Start: 2010 SIGMOIDOSCOPY SIGMOIDOSCOPY [facility] Start: 2005 Screening for malignant neoplasm of breast Mammogram [facility] Start: 1995 Screening for malignant neoplasm of cervix [facility] Start: 1995 Zoledronic acid therapy ALPHA-1 ANTITRYPSIN DEFICIENCY SCREENING [facility] Start: 1986 Screening for malignant neoplasm of cervix Pap Smear [facility] Start: 1984 Hepatitis B Vaccine (1 of 3 - 19+ 3-dose series) Hepatitis B Vaccine (1 of 3 - 19+ 3-dose series) [facility] Start: 1984 ONE PNEUMOVAX PRIOR TO AGE 65 ONE PNEUMOVAX PRIOR TO AGE 65 [facility] Start: 1984 Shingles vaccine (1 of 2) Shingles vaccine (1 of 2) [facility] Start: 1984 SHINGRIX VACCINE (1 of 2) SHINGRIX VACCINE (1 of 2) [facility] Start: 1984 Urine microalbumin profile [facility] Start: 1983 Anxiety Screening Anxiety Screening [facility] Start: 1983 Depression Screening Depression Screening [facility] Start: 1983 Diabetes mellitus screening Diabetes Screening [facility] Start: 1983 HEPATITIS C SCREENING HEPATITIS C SCREENING [facility] Start: 1983 Hepatitis C screening Hepatitis C Screening [facility] Start: 1983 HIV SCREENING HIV SCREENING [facility] Start: 1983 HIV screening HIV Screening [facility] Start: 1983 SPIROMETRY SPIROMETRY [facility] Start: 1977 Depression Screen Depression Screen [facility] Start: 1977 Depression Screening Depression Screening [facility] Start: 1971 PNEUMOCOCCAL (1 - PCV) PNEUMOCOCCAL (1 - PCV) [facility] ic Start: 1971 Pneumococcal 0-64 years Vaccine (1 - PCV) Pneumococcal 0-64 years Vaccine (1 - PCV) [facility] Start: 1971 Pneumococcal vaccination [facility] c Start: 1970 COVID-19 VACCINE (#1) COVID-19 VACCINE (#1) [facility] Start: 1966 Hepatitis A Vaccines (1 of 2 - Risk 2-dose series) Hepatitis A Vaccines (1 of 2 - Risk 2-dose series) [facility] Start: 1966 MMR Vaccines (1 of 1 - Standard series) MMR Vaccines (1 of 1 - Standard series) [facility] Start: 02-09-1966 COVID-19 Vaccine (#1) COVID-19 Vaccine (#1) [facility] Start: 1965 HEPATITIS B (1 of 3 - 3-dose series) HEPATITIS B (1 of 3 - 3-dose series) [facility] Start: 1965 Hepatitis B Vaccine (1 of 3 - 3-dose series) Hepatitis B Vaccine (1 of 3 - 3-dose series) [facility] Start: 1965 Hepatitis B Vaccines (1 of 3 - 3-dose series) Hepatitis B Vaccines (1 of 3 - 3-dose series) [facility] Start: 1965 HIV screening HIV Screening [facility] Start: 1965 Lipid panel Lipid Panel [facility] Start: 1965 Screening for malignant neoplasm of colon [facility] End: 06-30-2022 CA 125 [facility] Work Phone: Comment on above: 1 Occurrences starting 06/30/2022 until 06/30/2022 End: 02-28-2024 Cancer Ag 125 [Units/volume] in Serum or Plasma CA 125 BLD Lab Routine Malignant neoplasm of both ovaries (HCC) Peritoneal carcinomatosis (HCC) Every 3 weeks for 18 Occurrences starting 02/28/2023 until 02/28/2024 [facility] Work Phone: Comment on above: Every 3 weeks for 18 Occurrences startin g 02/28/2023 until 02/28/2024 End: 05-09-2024 Cancer Ag 125 [Units/volume] in Serum or Plasma [facility] Work Phone: Comment on above: 3x per week for 25 Occurrences starting 05/10/2023 until 05/09/2024 Cancer Ag 125 [Units/volume] in Serum or Plasma CA 125 BLD Lab Routine Peritoneal carcinomatosis (HCC) Malignant neoplasm of both ovaries (HCC) Coronary artery disease involving [place] coronary artery of [place] heart without angina pectoris DVT (deep vein thrombosis) in Chronic obstructive pulmonary disease, unspecified COPD type (HCC) Chemotherapy-induced neuropathy (HCC) Anxiety associated with cancer diagnosis (HCC) Disorder of lingual tonsil 05/12/2023 7:55 AM [facility] Work Phone: Cancer Ag 125 [Units/volume] in Serum or Plasma CA 125 BLD Lab Routine Peritoneal carcinomatosis (HCC) Malignant neoplasm of both ovaries (HCC) Coronary artery disease involving [place] coronary artery of [place] heart without angina pectoris DVT (deep vein thrombosis) in Chronic obstructive pulmonary disease, unspecified COPD type (HCC) Chemotherapy-induced neuropathy (HCC) Anxiety associated with cancer diagnosis (HCC) Disorder of lingual tonsil 05/19/2023 2:01 PM [facility] Work Phone: Cancer Ag 125 [Units/volume] in Serum or Plasma CA 125 BLD Lab Routine Malignant neoplasm of both ovaries (HCC) Peritoneal carcinomatosis (HCC) 05/31/2023 8:21 AM [facility] Work Phone: Cancer Ag 125 [Units/volume] in Serum or Plasma CA 125 BLD Lab Routine Peritoneal carcinomatosis (HCC) Malignant neoplasm of both ovaries (HCC) Coronary artery disease involving [place] coronary artery of [place] heart without angina pectoris DVT (deep vein thrombosis) in Chronic obstructive pulmonary disease, unspecified COPD type (HCC) Chemotherapy-induced neuropathy (HCC) Anxiety associated with cancer diagnosis (HCC) Disorder of lingual tonsil 06/22/2023 11:41 AM [facility] Work Phone: Cancer Ag 125 [Units/volume] in Serum or Plasma CA 125 BLD Lab Routine Peritoneal carcinomatosis (HCC) Malignant neoplasm of both ovaries (HCC) Coronary artery disease involving [place] coronary artery of [place] heart without angina pectoris DVT (deep vein thrombosis) in Chronic obstructive pulmonary disease, unspecified COPD type (HCC) Chemotherapy-induced neuropathy (HCC) Anxiety associated with cancer diagnosis (HCC) Disorder of lingual tonsil 02/21/2024 8:38 AM [facility] Work Phone: Cancer Ag 125 [Units/volume] in Serum or Plasma CA 125 BLD Lab Routine Peritoneal carcinomatosis (HCC) Malignant neoplasm of both ovaries (HCC) Coronary artery disease involving [place] coronary artery of [place] heart without angina pectoris DVT (deep vein thrombosis) in Chronic obstructive pulmonary disease, unspecified COPD type (HCC) Chemotherapy-induced neuropathy (HCC) Anxiety associated with cancer diagnosis (HCC) Disorder of lingual tonsil 04/10/2024 12:41 PM [facility] Work Phone: Cancer Ag 125 [Units/volume] in Serum or Plasma CA 125 BLD Lab Routine Peritoneal carcinomatosis (HCC) Malignant neoplasm of both ovaries (HCC) Coronary artery disease involving [place] coronary artery of [place] heart without angina pectoris DVT (deep vein thrombosis) in Chronic obstructive pulmonary disease, unspecified COPD type (HCC) Chemotherapy-induced neuropathy (HCC) Anxiety associated with cancer diagnosis (HCC) Disorder of lingual tonsil 04/19/2024 10:45 AM [facility] Work Phone: End: 05-08-2025 Cancer Ag 125 [Units/volume] in Serum or Plasma CA 125 Lab Routine Malignant neoplasm of both ovaries (HCC) Peritoneal carcinomatosis (HCC) Once per month for 12 Occurrences starting 05/08/2024 until 05/08/2025 [facility] Comment on above: Once per month for 12 Occurrences starti ng 05/08/2024 until 05/08/2025 Cancer Ag 125 [Units/volume] in Serum or Plasma CA 125 Lab Routine Malignant neoplasm of both ovaries (HCC) Peritoneal carcinomatosis (HCC) 06/06/2024 8:26 AM [facility] Work Phone: Cancer Ag 125 [Units/volume] in Serum or Plasma CA 125 Lab Routine Malignant neoplasm of both ovaries (HCC) Peritoneal carcinomatosis (HCC) 06/26/2024 8:09 AM [facility] Cancer Ag 125 [Units/volume] in Serum or Plasma CA 125 Lab Routine Malignant neoplasm of both ovaries (HCC) Peritoneal carcinomatosis (HCC) 07/15/2024 7:50 AM [facility] Work Phone: Cancer Ag 125 [Units/volume] in Serum or Plasma CA 125 Lab Routine Malignant neoplasm of both ovaries (HCC) Peritoneal carcinomatosis (HCC) 08/05/2024 10:06 AM [facility] Work Phone: CARIS IA TUMOR SEEK HYBRID CARIS IA TUMOR SEEK HYBRID Lab Routine Malignant neoplasm of both ovaries (HCC) Disseminated ovarian cancer, unspecified laterality (HCC) Malignant pleural effusion Ordered: 06/01/2023 [facility] Work Phone: Comment on above: Ordered: 06/01/2023 End: 02-28-2024 CBC W Auto Differential panel - Blood CBC + DIFF Lab STAT Malignant neoplasm of both ovaries (HCC) Peritoneal carcinomatosis (HCC) Once per week for 52 Occurrences starting 02/28/2023 until 02/28/2024 [facility] Work Phone: Comment on above: Once per week for 52 Occurrences startin g 02/28/2023 until 02/28/2024 End: 05-09-2024 CBC W Auto Differential panel - Blood CBC + DIFF Lab STAT Peritoneal carcinomatosis (HCC) Malignant neoplasm of both ovaries (HCC) Coronary artery disease involving [place] coronary artery of [place] heart without angina pectoris DVT (deep vein thrombosis) in Chronic obstructive pulmonary disease, unspecified COPD type (HCC) Chemotherapy-induced neuropathy (HCC) Anxiety associated with cancer diagnosis (HCC) Disorder of lingual tonsil Once per week for 52 Occurrences starting 05/10/2023 until 05/09/2024 [facility] Work Phone: Comment on above: Once per week for 52 Occurrences startin g 05/10/2023 until 05/09/2024 End: 05-08-2025 CBC W Auto Differential panel - Blood COMPLETE BLOOD COUNT AND DIFFERENTIAL Lab STAT Malignant neoplasm of both ovaries (HCC) Peritoneal carcinomatosis (HCC) Once per week for 52 Occurrences starting 05/08/2024 until 05/08/2025 [facility] Work Phone: Comment on above: Once per week for 52 Occurrences startin g 05/08/2024 until 05/08/2025 CBC W Auto Different ial panel - Blood COMPLETE BLOOD COUNT AND DIFFERENTIAL Lab STAT Malignant neoplasm of both ovaries (HCC) Peritoneal carcinomatosis (HCC) 06/26/2024 8:09 AM EDT [facility] Work Phone: Chronic hepatitis differentiation between hepatitis B and C virus panel - Serum or Plasma HEP REMOTE PANEL BL Lab Routine Peritoneal carcinomatosis (HCC) 07/15/2024 7:50 AM EDT [facility] Clostridioides diffi cile toxin genes [Presence] in Stool by KHADIJAH with probe detection C. DIFFICILE PCR Lab Routine Diarrhea of presumed infectious origin Ordered: 06/13/2024 [facility] Comment on above: Ordered: 06/13/2024 End: 02-28-2024 Comprehensive metabolic 2000 panel - Serum or Plasma COMP METABOLIC PANEL Lab STAT Malignant neoplasm of both ovaries (HCC) Peritoneal carcinomatosis (HCC) Every 3 weeks for 18 Occurrences starting 02/28/2023 until 02/28/2024 [facility] Work Phone: Comment on above: Every 3 weeks for 18 Occurrences startin g 02/28/2023 until 02/28/2024 End: 05-09-2024 Comprehensive metabolic 2000 panel - Serum or Plasma COMP METABOLIC PANEL Lab STAT Peritoneal carcinomatosis (HCC) Malignant neoplasm of both ovaries (HCC) Coronary artery disease involving [place] coronary artery of [place] heart without angina pectoris DVT (deep vein thrombosis) in Chronic obstructive pulmonary disease, unspecified COPD type (HCC) Chemotherapy-induced neuropathy (HCC) Anxiety associated with cancer diagnosis (HCC) Disorder of lingual tonsil 3x per week for 25 Occurrences starting 05/10/2023 until 05/09/2024 [facility] Work Phone: Comment on above: 3x per week for 25 Occurrences starting 05/10/2023 until 05/09/2024 End: 05-08-2025 Comprehensive metabolic 2000 panel - Serum or Plasma COMPREHENSIVE METABOLIC PANEL Lab STAT Malignant neoplasm of both ovaries (HCC) Peritoneal carcinomatosis (HCC) Once per month for 12 Occurrences starting 05/08/2024 until 05/08/2025 [facility] Comment on above: Once per month for 12 Occurrences starti ng 05/08/2024 until 05/08/2025 End: 04-21-2024 Ct abdomen & pelvis w/contrast material CT ABD/PEL W IVCON Radiology Routine Malignant neoplasm of both ovaries (HCC) 1 Occurrences starting 03/22/2023 until 04/21/2024 [facility] Work Phone: Comment on above: 1 Occurrences starting 03/22/2023 until 04/21/2024 End: 10-05-2024 Ct abdomen & pelvis w/contrast material CT ABD/PEL W IVCON Radiology Routine Malignant neoplasm of both ovaries (HCC) Peritoneal carcinomatosis (HCC) 1 Occurrences starting 09/05/2023 until 10/05/2024 [facility] Work Phone: Comment on above: 1 Occurrences starting 09/05/2023 until 10/05/2024 End: 12-27-2024 CT Abdomen and Pelvis W contrast IV CT ABD/PEL W IVCON Radiology Routine Disseminated malignant neoplasm of ovary, unspecified laterality (HCC) Peritoneal carcinomatosis (HCC) Malignant neoplasm of both ovaries (HCC) 1 Occurrences starting 11/29/2023 until 12/27/2024 [facility] Work Phone: Comment on above: 1 Occurrences starting 11/29/2023 until 12/27/2024 End: 06-08-2025 CT Abdomen and Pelvis W contrast IV CT ABD/PEL W IVCON Radiology Routine Malignant neoplasm of both ovaries (HCC) Peritoneal carcinomatosis (HCC) 1 Occurrences starting 05/09/2024 until 06/08/2025 [facility] Work Phone: Comment on above: 1 Occurrences starting 05/09/2024 until 06/08/2025 CT Abdomen and Pelvi s W contrast IV CT ABD/PEL W IVCON Radiology Routine Malignant neoplasm of both ovaries (HCC) Peritoneal carcinomatosis (HCC) 05/27/2024 11:52 AM EDT [facility] Work Phone: End: 12-28-2024 CT Chest W contrast IV CT CHEST W IVCON Radiology Routine Disseminated malignant neoplasm of ovary, unspecified laterality (HCC) Peritoneal carcinomatosis (HCC) Malignant neoplasm of both ovaries (HCC) 1 Occurrences starting 11/29/2023 until 12/28/2024 [facility] Work Phone: Comment on above: 1 Occurrences starting 11/29/2023 until 12/28/2024 End: 06-08-2025 CT Chest W contrast IV CT CHEST W IVCON Radiology Routine Malignant neoplasm of both ovaries (HCC) Peritoneal carcinomatosis (HCC) 1 Occurrences starting 05/09/2024 until 06/08/2025 [facility] Comment on above: 1 Occurrences starting 05/09/2024 until 06/08/2025 CT Chest W contrast IV CT CHEST W IVCON Radiology Routine Malignant neoplasm of both ovaries (HCC) Peritoneal carcinomatosis (HCC) 05/27/2024 11:52 AM EDT [facility] End: 04-21-2024 CT CHEST W IVCON CT CHEST W IVCON Radiology Routine Malignant neoplasm of both ovaries (HCC) 1 Occurrences starting 03/22/2023 until 04/21/2024 [facility] Work Phone: Comment on above: 1 Occurrences starting 03/22/2023 until 04/21/2024 End: 10-04-2024 CT CHEST W IVCON CT CHEST W IVCON Radiology Routine Malignant neoplasm of both ovaries (HCC) Peritoneal carcinomatosis (HCC) 1 Occurrences starting 09/05/2023 until 10/04/2024 [facility] Work Phone: Comment on above: 1 Occurrences starting 09/05/2023 until 10/04/2024 End: 05-30-2024 CYTOLOGY NON-UTILITIES EQUIPMENT REPAIRER [facility] Work Phone: Comment on above: ONCE for 1 Occurrences starting 05/30/20 until 05/30/2024, 1 completed End: 06-27-2024 CYTOLOGY NON-UTILITIES EQUIPMENT REPAIRER [facility] Work Phone: Comment on above: ONCE for 1 Occurrences starting 06/27/20 until 06/27/2024, 1 completed End: 08-16-2025 DBT Breast - bilateral screening ANTONETTE SCREENING W SARA Radiology Routine Encounter for screening mammogram for breast cancer 1 Occurrences starting 07/17/2024 until 08/16/2025 [facility] Work Phone: Comment on above: 1 Occurrences starting 07/17/2024 until 08/16/2025 EKG 12 Lead EKG 12 Lead ECG STAT 06/28/2022 12:52 PM EDT [facility] Work Phone: ENTERIC BACTERIAL PA MARVA BY PCR ENTERIC BACTERIAL PANEL BY PCR Lab Routine Diarrhea of presumed infectious origin Ordered: 06/13/2024 [facility] Work Phone: Comment on above: Ordered: 06/13/2024 Guidance for biopsy of Lymph node IMAGING GUIDED BIOPSY INGUINAL/AXILLARY LYMPH NODE Radiology Routine Disseminated malignant neoplasm of ovary, unspecified laterality (HCC) Axillary adenopathy Ordered: 12/20/2023 [facility] Work Phone: Comment on above: Ordered: 12/20/2023 End: 06-26-2025 Guidance for paracentesis of Peritoneum IMAGING GUIDED PARACENTESIS Radiology Routine 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, unspecified laterality (HCC) Other ascites Once per week for 8 Occurrences starting 05/27/2024 until 06/26/2025 [facility] Work Phone: Comment on above: Once per week for 8 Occurrences starting 05/27/2024 until 06/26/2025 Hepatitis B virus co re Ab [Presence] in Serum HEPATITIS B CORE ANTIBODY TOTAL Lab Routine Peritoneal carcinomatosis (HCC) 07/15/2024 7:50 AM EDT [facility] Hepatitis B virus surface Ab [Presence] in Serum HEPATITIS B SURFACE ANTIBODY Lab Routine Peritoneal carcinomatosis (HCC) 07/15/2024 7:50 AM EDT [facility] Hepatitis B virus surface Ag [Presence] in Serum HEPATITIS B SURFACE ANTIGEN Lab Routine Peritoneal carcinomatosis (HCC) 07/15/2024 7:50 AM EDT [facility] Hepatitis C virus Ab [Presence] in Serum HEPATITIS C ANTIBODY IA WITH CONFIRMATION Lab Routine Peritoneal carcinomatosis (HCC) 07/15/2024 7:50 AM EDT [facility] IMAGING GUIDED BIOPS Y LUNG IMAGING GUIDED BIOPSY LUNG Radiology STAT Peritoneal carcinomatosis (HCC) Malignant neoplasm of both ovaries (HCC) Incidental lung nodule, greater than or equal to 8mm Ordered: 02/12/2023 [facility] Work Phone: Comment on above: Ordered: 02/12/2023 End: 06-28-2022 INITIATE PACU OXYGEN THERAPY PROTOCOL Initiate PACU Oxygen Therapy Protocol Respiratory Care Routine Continuous until discontinued starting 06/28/2022 [facility] Work Phone: Comment on above: Continuous until discontinued starting 0 06/28/2022 End: 06-28-2022 Intermittent pulse oximetry Pulse Oximetry Spot Check Respiratory Care Routine One Time for 1 Occurrences starting 06/28/2022 until 06/28/2022 [facility] Work Phone: Comment on above: One Time for 1 Occurrences starting 06/16 until 06/28/2022 End: 02-28-2024 Magnesium [Mass/volume] in Serum or Plasma MAGNESIUM BLD Lab STAT Malignant neoplasm of both ovaries (HCC) Peritoneal carcinomatosis (HCC) Every 3 weeks for 18 Occurrences starting 02/28/2023 until 02/28/2024 [facility] Work Phone: Comment on above: Every 3 weeks for 18 Occurrences startin g 02/28/2023 until 02/28/2024 End: 05-09-2024 Magnesium [Mass/volume] in Serum or Plasma MAGNESIUM BLD Lab STAT Peritoneal carcinomatosis (HCC) Malignant neoplasm of both ovaries (HCC) Coronary artery disease involving [place] coronary artery of [place] heart without angina pectoris DVT (deep vein thrombosis) in Chronic obstructive pulmonary disease, unspecified COPD type (HCC) Chemotherapy-induced neuropathy (HCC) Anxiety associated with cancer diagnosis (HCC) Disorder of lingual tonsil 3x per week for 25 Occurrences starting 05/10/2023 until 05/09/2024 [facility] Work Phone: Comment on above: 3x per week for 25 Occurrences starting 05/10/2023 until 05/09/2024 End: 05-08-2025 Magnesium [Mass/volume] in Serum or Plasma MAGNESIUM Lab STAT Malignant neoplasm of both ovaries (HCC) Peritoneal carcinomatosis (HCC) Once per month for 12 Occurrences starting 05/08/2024 until 05/08/2025 [facility] Comment on above: Once per month for 12 Occurrences starti ng 05/08/2024 until 05/08/2025 End: 06-30-2024 ANTONETTE DIAGNOSTIC BILATERAL ANTONETTE DIAGNOSTIC BILATERAL Radiology Routine Encounter for screening mammogram for malignant neoplasm of breast 1 Occurrences starting 06/01/2023 until 06/30/2024 [facility] Work Phone: Comment on above: 1 Occurrences starting 06/01/2023 until 06/30/2024 End: 06-29-2024 ANTONETTE DIAGNOSTIC RIGHT ANTONETTE DIAGNOSTIC RIGHT Radiology Routine Breast nodule 1 Occurrences starting 05/31/2023 until 06/29/2024 [facility] Work Phone: Comment on above: 1 Occurrences starting 05/31/2023 until 06/29/2024 End: 04-13-2024 ANTONETTE SCREENING ANTONETTE SCREENING Radiology Routine Encounter for screening mammogram for breast cancer 1 Occurrences starting 03/15/2023 until 04/13/2024 [facility] Work Phone: Comment on above: 1 Occurrences starting 03/15/2023 until 04/13/2024 End: 07-07-2023 Mri abdomen w/o & w/contrast material MRI PANC/MAXIMUS WO/W IVCON Radiology Routine Pancreatic cyst 1 Occurrences starting 06/07/2022 until 07/07/2023 [facility] Work Phone: Comment on above: 1 Occurrences starting 06/07/2022 until 07/07/2023 End: 11-03-2024 Mri brain brain stem w/o w/contrast material MRI BRAIN WO/W IVCON Radiology Routine 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 Malignant neoplasm of both ovaries (HCC) 1 Occurrences starting 10/05/2023 until 11/03/2024 [facility] Work Phone: Comment on above: 1 Occurrences starting 10/05/2023 until 11/03/2024 Nasal Cannula Oxygen Nasal Cannu la Oxygen Respiratory Care Routine As Needed until discontinued starting 06/28/2022 [employer] Work Phone: Comment on above: As Needed until discontinued starting Nasal Cannula Oxygen Nasal Cannu la Oxygen Respiratory Care Routine As Needed until discontinued starting 06/28/2022 [employer] Work Phone: Comment on above: As Needed until discontinued starting Nonrebreather mask oxygen Nonrebreather mask oxygen Respiratory Care Routine As Needed until discontinued starting 06/28/2022 [facility] Work Phone: Comment on above: As Needed until discontinued starting Nonrebreather mask oxygen Nonrebreather mask oxygen Respiratory Care Routine As Needed until discontinued starting 06/28/2022 [facility] Work Phone: Comment on above: As Needed until discontinued starting Oxygen therapy [[facility] Data Set] Initiate Oxygen Therapy Protocol Respiratory Care Routine As Needed until discontinued starting 06/28/2022 [facility] Work Phone: Comment on above: As Needed until discontinued starting End: 06-29-2024 Radiologic exam chest 2 views XR CHEST 2V FRONTAL/LAT Radiology Routine Malignant neoplasm of both ovaries (HCC) Peritoneal carcinomatosis (HCC) Chronic obstructive pulmonary disease, unspecified COPD type (HCC) Every 3 weeks for 8 Occurrences starting 05/31/2023 until 06/29/2024 [facility] Work Phone: Comment on above: Every 3 weeks for 8 Occurrences starting 05/31/2023 until 06/29/2024 End: 10-04-2024 Radiologic exam chest 2 views XR CHEST 2V FRONTAL/LAT Radiology Routine Pleural effusion on right Once per week for 52 Occurrences starting 09/05/2023 until 10/04/2024, 1 completed [facility] Work Phone: Comment on above: Once per week for 52 Occurrences startin g 09/05/2023 until 10/04/2024, 1 completed End: 05-06-2023 Screening mammography bi 2-view breast inc cad ANTONETTE SCREENING Radiology Routine Encounter for screening mammogram for breast cancer 1 Occurrences starting 04/06/2022 until 05/06/2023 [facility] Work Phone: Comment on above: 1 Occurrences starting 04/06/2022 until 05/06/2023 Spirometry panel Incentive [place]o [place] Respiratory Care Routine Q1H PRN until discontinued starting 06/28/2022 [facility] Work Phone: Comment on above: Q1H PRN until discontinued starting 06/16 End: 01-02-2024 SURGICAL PATHOLOGY [facility] Work Phone: Comment on above: ONCE for 1 Occurrences starting 01/02/20 24 until 01/02/2024, 1 completed Thoracentesis needle/cath pleura w/imaging IMAGING GUIDED THORACENTESIS Radiology Routine Ovarian cancer, bilateral (HCC) Pleural effusion Ordered: 05/01/2023 [facility] Work Phone: Comment on above: Ordered: 05/01/2023 End: 02-29-2024 UA DIP, URINE (POC) UA DIP, URINE (POC) Lab Routine Malignant neoplasm of both ovaries (HCC) Peritoneal carcinomatosis (HCC) Every 3 weeks for 18 Occurrences starting 02/28/2023 until 02/29/2024 [facility] Work Phone: Comment on above: Every 3 weeks for 18 Occurrences startin g 02/28/2023 until 02/29/2024 End: 06-03-2022 Us abdominal real time w/image limited [facility] Work Phone: Comment on above: 1 Occurrences starting 06/03/2022 until 06/03/2022 End: 06-29-2024 US BREAST LTD RIGHT US BREAST LTD RIGHT Radiology Routine Breast nodule 1 Occurrences starting 05/31/2023 until 06/29/2024 [facility] Work Phone: Comment on above: 1 Occurrences starting 05/31/2023 until 06/29/2024 End: 09-04-2025 XR Chest PA and Lateral XR CHEST 2V FRONTAL/LAT Radiology Routine Pleural effusion 1 Occurrences starting 08/05/2024 until 09/04/2025 [facility] Work Phone: Comment on above: 1 Occurrences starting 08/05/2024 until 09/04/2025 XR Chest PA and Lateral XR CHEST 2V FRONTAL/LAT Radiology Routine Pleural effusion 08/05/2024 11:28 AM EDT [facility] Immunizations Immunization Date Immunization Notes Care Provider Chika marin 07-24-2015 tetanus toxoid, redu nurys diphtheria toxoid, and acellular pertussis vaccine, adsorbed Pastor Pires [facility] Payers Date Payer Category Payer Unknown [id number] 2019 Unknown MMO MMO [employer] [id number] 2019-Present [phone] [address] [place] [address] PPO [id number] 2019 Unknown [id number] 2019 Unknown [id number] 1965 Unknown [id number] 1965 Unknown [id number] 1965 Unknown [id number] 1965 Unknown [id number] Social History Date Type Detail Facility Start: 05-31-2019 End: 02-09-2022 Tobacco smoking status HIIS Smokes tobacco daily [facility] Start: 06-23-1982 End: 06-23-2022 History of tobacco use Cigarette Smoker [facility] Start: 05-31-2019 End: 02-23-2023 Cigarettes smoked current (pack per day) - Reported 0.5 [facility] Start: 05-31-2019 End: 05-31-2023 Tobacco use and exposure Smokeless tobacco non-user [facility] Start: 02-09-2022 End: 06-26-2024 Alcohol intake Current non-drinker of alcohol (finding) [facility] Start: 02-09-2022 End: 07-07-2022 History SDOH Alcohol Frequency 1 [facility] Start: 02-09-2022 History SDOH Social Connections Phone 5 [facility] Start: 02-09-2022 History SDOH Social Connections Get Together 3 [facility] Start: 02-09-2022 End: 09-28-2022 History SDOH Social Connections Taoism 2 [facility] Start: 02-09-2022 History SDOH Social Connections Living 4 [facility] Start: 02-09-2022 End: 01-26-2023 Tobacco Comment 0 - 1 cigarette per day [facility] Start: 1965 Sex Assigned At Female [facility] Start: 12-05-2020 End: 07-07-2022 Exposure to SARS-CoV-2 (event) Not sure [facility] Start: 06-28-2022 End: 10-28-2022 Alcohol intake Lifetime non-drinker (finding) [place] Phone: Start: 1965 Sex Assigned At Not on file [employer] Work Phone: Start: 01-26-2023 End: 05-31-2023 Tobacco smoking status HIIS Ex-smoker [facility] Start: 06-23-1982 End: 06-23-2022 History of tobacco use Current smoker [facility] Start: 09-21-2022 Tobacco Comment Nicotine [facility] Start: 02-08-2022 End: 02-23-2023 Social connection and isolation panel [facility] Do you belong to any clubs or organizations such as druze groups, unions, fraternal or athletic groups, or school groups? No [facility] Are you now , , , , never or living with a partner? [facility] How often to you hav e a drink containing alcohol? Never [facility] Average Number of Drinks Not on file [facility] Do you feel stress - tense, restless, nervous, or anxious, or unable to sleep at night because your mind is troubled all the time - these days [OSQ] Only a little [facility] (I/We) worried wheth er (my/our) food would run out before (I/we) got money to buy more. Never true [facility] Start: 02-25-2021 Gender identity Identifies as female gender (finding) [facility] Start: 02-25-2021 Sexual orientation Heterosexual (finding) [facility] Start: 05-31-2019 Tobacco Comment 0.5 ppd - trying to quit [facility] Medical Equipment Procedure Code Equipment Code Equipment Origin al Text Equipment Identifier Dates Kit Port [employer] Implantable Infusion Power Injectable 6.6fr Od 1.3mm Id Catheter 75cml Titanium Port Polyurethane Silicone Filled Suture Hole Low-Profi - [id number] Start: 09-29-2022 Clinical Notes 01-04-2021 to 08-05-2024 Bk Lenz DO - 08/05/2024 10:48 AM Rere Alonso - 08/01/2024 10:55 AM EDTTelephone Encounter - Chloe Zambrano RN - 07/30/2024 9:56 AM Bubba Hernández RN - 07/10/2024 2:20 PM EDTAttachments Note Date & Type Note Facility 08-05-2024 Note [facility] 08-05-2024 History of Presen t illness Narrative Oncologic problem(s): 1) 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 2) Remote DVT-- associated. HPI: The patient is a 58-year-old female with a past medical history significant for smoking (quit 06/2022), CAD (08/2021 following mildly symptomatic Covid, developed chest pain first day back to work--IA; PCI x1 stent--ASA and Brilinta (stopped Brilinta after a week due to nausea and diarrhea--took Plavix for a year), remote DVT (first in 1984) and ovarian cancer. Developed change in bowel habits spring 2021. Then developed abdominal pain summer 2021. Admitted [facility] via ED 06/20/2022. Per admitting hospitalist then onset 04/2022 ongoing persistent dull aching with occasional sharp stabbing periumbical abdominal pain, rated 2-5/10 in severity with nausea without emesis and night sweats with no diarrhea and normal once daily in AM bowel movements with PCP evaluation with outpatient US which was reportedly normal with ED evaluation 06/13/[address] A/P w/ reported gastritis and ascites and normal labs with discharge to home with follow-up PCP directed 06/17/22 MRI with moderate volume ascites with two thin walled well defined fluid collections without enhancement (1.2 x 0.8, 3.6 x 2.7 cm) in the LLQ with referral made to GI Dr. Rajput who now re-presents to the [facility] ED on 06/20/22 history of ongoing constant abdominal pain in the similar region but worsened, rated pain for the last 1-2 weeks 8-10/10 in severity with ~9 lb weight loss with decreased oral intake and ongoing night sweats. US 06/22/2022 at [facility]: MPRESSION: 1. Normal-size anteverted uterus with a hyperechoic 3 mm thick endometrium. 2. No evidence of uterine cyst or solid mass lesions. 3. Normal cervix. 4. Mildly lobulated right ovary measuring 3.5 cm to 2.7 x 2.4 cm without distinct cystic or solid lesions. 5. Left ovary is not visualized. 6. Large amount of fluid or ascites in the cul-de-sac. 7. No evidence of adnexal masses or peritoneal implants. Referred to Dr. Hyatt. Underwent laparoscopy with findings of diffuse carcinomatosis and biopsy at [facility] 06/28/2022. Pathology: PERITONEUM, BIOPSIES - HIGH-GRADE ADENOCARCINOMA. SEE COMMENT. 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 These malignant cells stain positive with CK7, PAX 8, patchy positivity with calretinin and weak focal ER positivity, and negative for CK20, GATA3 and WT1. A p53 demonstrates a null phenotype. 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 SNVs/Indels - TP53 splice site c.782+1G>A Immuno-Oncology Biomarkers - PD-L1 LDT: Not Detected Interpretation: -TP53 (tumor protein P53) encodes a tumor suppressor protein that responds to cellular stresses, including gDNA damage and oncogenic activation, by inducing and modulating downstream anti-tumor responses such as DNA repair, recombination, and apoptosis. Currently, there are no approved therapies that directly target oncogenic alterations in TP53. However, experimental therapies that target and re-activate the transcriptional activity of mutant TP53 have been described and are currently under investigation. Early clinical trials data suggest oncogenic TP53 mutations may predict resistance to cisplatin chemotherapy, MDM2 inhibitors, and CDK4/CDK6 inhibitors. - No pathogenic mutations are present in any of the common homologous recombination repair genes on this panel. Variants of unknown clinical significance are detected in the following genes: ATR and BARD1 (Please see the Variants of Unknown Clinical Significance section, below). As the functional consequences of these variants are undetermined, the clinical utility of PARP inhibitor therapy in this case is uncertain Started on neoadjuvant chemotherapy with carboplatin and paclitaxel. She received 4 cycles prior to undergoing interval debulking surgery on 09/28/2022. Notes indicate had complete gross tumor debulking. Pathology: A. Soft tissue, anterior peritoneum, excision: - Fibroadipose tissue with focal dense fibrosis and rare infiltrating high-grade carcinoma. B. Omentum, excision: - Residual invasive high-grade adenocarcinoma and therapy-related changes present. Comment: The majority of tumor in all the specimens (A - E) has the appearance of high-grade serous carcinoma. Focal areas of tumor in parts B and D show clear cells features. However, by immunohistochemistry, these cells are negative for napsin-A, making clear cell carcinoma less likely. WT-1 is also negative. C. Uterus, cervix, bilateral fallopian tubes and ovaries, hysterectomy with bilateral salpingo-oophorectomy: - Residual high-grade carcinoma involving bilateral ovaries and fallopian tubes. - Uterus with inactive endometrium, and unremarkable myometrium and cervix. D. Small bowel nodule, excision: - High-grade carcinoma and therapy-related changes including fibrinous necrosis. E. Appendix, appendectomy: - Rare infiltrating carcinoma involving the mesoappendix. - Unremarkable tubular appendix. Completed 2 additional cycles carbo/paclitaxel November 2021. He is here today to discuss maintenance therapy. Patient's CA125 level is 28.2 U/mL.Ran at [facility]. Per Dr. Naranjo's note: Plan: Counseled the patient and her daughter today as far as treatment options. This would include going on a PARP inhibitor, Avastin or observation only. We discussed the fact that she is HRD and BRCA negative. We discussed that there was still an advantage to going on a PARP inhibitor. I did career technical counselor the patient as to the most common side effects of PARP inhibitors. We also discussed some of the more common signs and symptoms of recurrent cancer. The patient would like to start Zejula, will start at the medium dose, will watch CBC weekly for 1 month and then monthly thereafter. Discussed staying on the Zejula until evidence of disease progression or toxicity. ----- Started Zejula 12/20/2022 but developed diarrhea, fatigue, chest pain with palpitations that woke her by 12/22/2022. Saw cardiology 12/23 and was told EKG okay and could retry Zejula. Started on 12/26. 12/28 had blurry vision and couldn't see to drive. Decreased dose to 200 mg daily. 12/30 got palpitations again. Stopped altogether 01/02/2023. Went to [facility] in [place] where evidently CT scan 01/16/23 showed lesions in left lung, liver, and pelvis; it was not known whether these were new as she had no previous scans to compare. PET scan recommended. PET 02/06/2023: IMPRESSION: 1. NECK: * Asymmetric hypermetabolism along the right palatine tonsil, indeterminate. Recommend correlation with direct inspection. * Otherwise no FDG avid neoplastic process. 2. CHEST: * No FDG avid neoplastic process. * 9 mm left upper lobe groundglass/semisolid nodule is not FDG avid and likely represents a primary lung neoplasm along the adenocarcinoma spectrum. 3. ABDOMEN/PELVIS: * No FDG avid neoplastic process. 4. EXTREMITIES/SKELETON: * No suspicious FDG avid osseous lesion. RESULT: Pack Changer (topogram) images: No additional findings. - Mediastinum blood pool activity: Max SUV: 1.8 - Background liver activity: Max SUV: 2.4 HEAD AND NECK: Focal hypermetabolism along the right palatine tonsil (Max SUV 7.6) with associated soft tissue fullness. Physiologic uptake seen in the visualized brain, extraocular muscles, parapharyngeal soft tissues, base of tongue, vocal cords, and salivary glands. No FDG avid cervical lymphadenopathy or mass. No FDG avid thyroid lesion. CHEST: Right chest port terminates in the right atrium. Physiologic uptake in the heart and mediastinum. Lungs and tracheobronchial tree: -0.9 cm left apicoposterior groundglass/semisolid nodule without associated hypermetabolism (Max SUV 0.6). -Additional scattered smaller pulmonary nodules, for example a 4 mm nodule within the posterior right upper lobe, below the resolution of PET. -No hypermetabolic pulmonary lesions. -Emphysema. Note that PET/CT is not sensitive for pulmonary nodules less than 8 mm. Pleura: No FDG avid pleural effusion or pleural mass. Mediastinum and Lymph nodes: 0.9 cm right prevascular node with low level hypermetabolism (Max SUV 2.6), likely reactive. Heart and great vessels: Physiologic uptake in the heart. Chest wall and axilla: No FDG avid axillary lymphadenopathy. ABDOMEN AND PELVIS: Physiologic uptake seen in the and GI tracts. Liver: No FDG avid lesion. Low-attenuation lesion centered between the posterior aspect of the left hepatic lobe and the body of the pancreas, without associated hypermetabolism. Biliary: Gallbladder is unremarkable. Spleen: No FDG avid lesion. No splenomegaly. Pancreas: No FDG avid lesion. Adrenals: No FDG avid lesion. Kidneys: No stones, hydronephrosis, or FDG avid lesions. GI tract: No dilation or focal suspicious FDG avid lesion. Lymph nodes: No FDG avid abdominal or pelvic lymphadenopathy. Left external iliac/obturator node measures 0.7 cm and has expected low level hypermetabolism (Max SUV 1.8). Mesentery/Peritoneum: No ascites or FDG avid mass. Vasculature: Vascular patency cannot be assessed due to lack of IV contrast. Atherosclerotic calcifications of the abdominal aorta and iliac vessels without aneurysm. Pelvis: Hysterectomy. No ascites, focal fluid collection, or hypermetabolic lesion. Abdominopelvic wall: Postsurgical changes along the ventral pelvic wall with expected low level hypermetabolism. BONES AND EXTREMITIES: No suspicious FDG avid osseous lesion. The imaged portions of the skeleton demonstrates age-related degenerative changes. No destructive osseous lesions. Previous therapy: 1) Carboplatin and paclitaxel x4 cycles. 2) Interval debulking surgery 09/28/2022 3) Carboplatin and paclitaxel x2 cycles. Completed 11/2022. 4) Zejula. Did not tolerate due to side effects (see above). Post op had abdominal pain (incisional pain?) and saw palliative care and was prescribed gabapentin which helped significantly. Now has mild ghost pain on occasion and continues gabapentin to help her sleep--Tried stopping and significant flare of anxiety. Has had buproprion, Vistaril and Effexor from PCP in the past. Tried 0.5 mg lorazepam for PET and it made her very sedate. Quit smoking at time of ovarian cancer diagnosis. Has episodic dyspnea---can happen at rest or with exertion but never consistently. However she noticed a gradual worsening of BORJAS. No further palpitations. No exertional chest pain/pressure. Saw Dr. Scruggs, shovel oiler at [facility]: The preferred approach would be transthoracic needle aspiration under CT scan guidance. Since she has no blebs within 3 cm of the lesion, I believe her risk of procedure would be between 5 and 15% chance of pneumothorax. If the lesion is a lung primary, there is no outcome difference between the biopsy now and waiting 3 months to watch behavior, biopsying it if it enlarges in 3 months. If it is an ovarian metastasis, the best approach would be to biopsy the PET positive tonsillar enlargement, treat that, and observe the behavior of the lung lesion. If it is an ovarian metastasis and responds to treatment, and recedes on her next CAT scan, we will have avoided a biopsy. -I therefore recommend that her tonsil lesion be biopsied by ENT (first visit with Dr. Gregory tomorrow), and take a watchful waiting approach regarding the left upper lobe lesion for now, to readdress it in 3 months. Both of these options were discussed with the patient, she was given the option to biopsy now, and we agreed that it may be more prudent and would not change the outcome of a small lung lesion to wait for 3 months on the lung lesion biopsy. -Meanwhile we will evaluate her COPD, she has excellent functional status, and we will add bronchodilators if necessary. Underwent b/l tonsillectomy. No malignancy. 5) Gemcitabine/carboplatin/bevacizu mab. Cycle #1 began 05/12/2023. Was seen in the ED on 05/08 for worsening shortness of breath. Found to have increasing right pleural effusion. She underwent thoracentesis in which 80 cc of cloudy chloe fluid was removed. 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 6) Doxil and bevacizumab 7) Pemetrexed. 8) Abraxane. Current therapy: 1) Topotecan. Presents for ongoing oncologic management. Interim history: Was in ED for chest pain and dyspnea. PE. Started on apixaban. I just don't feel good. Haven't come back from last IV chemo. Nausea with etoposide. Can wake on occasion--every 7-10 days--wakes in the night with projectile vomiting. Pain in upper abdomen. No pain otherwise. Had US Monday--not enough for paracentesis. Very good appetite though. Bowel moving regularly. Formed stools. PMH, medications and allergies personally reviewed by me today. Any changes documented in appropriate section. Social History Tobacco Use Smoking status: Former Current packs/day: 0.00 Average packs/day: 0.5 packs/day for 40.0 years (20.0 ttl pk-yrs) Types: Cigarettes Start date: 06/23/1982 Quit date: 06/23/2022 Years since quittin.1 Smokeless tobacco: Never Vaping Use Vaping status: Never Used Substance Use Topics Alcohol use: No Drug use: No Family History Problem Relation Age of Onset Thyroid Mother Hypertension Father Heart Father Thyroid Sister Half-sister other (CHF) Sister Thyroid Sister Half-sister Colon Cancer Sister Thyroid Sister Half-sister Hypertension Brother Cancer Maternal Grandmother OVARIAN Hypertension Maternal Grandfather Cancer Maternal Grandfather LUNG Lung Cancer Paternal Grandmother ROS: Constitutional: Denies episodes of fever and night sweats. Neuro: Denies vertigo, dizziness and imbalance. HEENT: No recent change in voice, vision or hearing. Resp: See HPI. CVS: No exertional chest pain or pressure. No lower extremity swelling or edema. GI: See HPI. : Denies dysuria or gross hematuria. Endo: Denies hot flashes. Denies polyuria and polydipsia. Denies heat and cold intolerance. Musculoskeletal: No bone, back, joint and muscular pain. Derm: Denies rash. Heme: Denies unusual bleeding and unexplained bruising. Psych: Anxiety--improved on Cymbalta. PHYSICAL EXAM: Vitals: Blood pressure 106/70, pulse 68, temperature 36.5 C (97.7 F), temperature source Temporal, weight 49.4 kg (109 lb), last menstrual period 03/23/2012, SpO2 100%. Well-appearing and in no acute distress. EYES: Sclerae are anicteric bilaterally. LYMPHATIC: There is no axillary adenopathy. RESPIRATORY: Inspiratory vesicular breath sounds are of diminished intensity in all cruz. Diminished right base anteriorly--stable. CARDIOVASCULAR: Rhythm is regular. ABDOMEN: The abdomen is slightly distended. No hyperactive bowel sounds appreciated. Extremities: No swelling or edema. SKIN: No jaundice. LABS: PFTs at [facility] 02/17/2023: Forced expiration spirometry demonstrates the presence of a mild large airways obstructive ventilatory defect. There was no significant response to aerosolized bronchodilators. Spirograms are of fair quality and plateau normally. Body plethysmography was performed and revealed lung volumes to be within normal limits. Diffusing capacity by single breath CO was likewise within normal limits. IMPRESSION: Irreversible mild large airways obstructive ventilatory impairment with preserved lung volumes and diffusing capacity. 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 -Genetic testing performed through [facility]: Negative for BRCA1/2 and 24 other relevant genes. -Caris negative for FOLR1. -She has symptoms related to recurrent ascites. -Tolerating etoposide well with the exception of nausea and vomiting. -Continues to have resolution of the left axillary adenopathy. Plan: -Okay to start cycle #2 this coming Monday pending CBC results that day. -CT following cycle #3. 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 -Stable. Plan: -Continue Cymbalta. (F41.1, C80.1) Anxiety associated with cancer diagnosis (HCC) Assessment: -Cymbalta helped significantly. Plan: -Continue Cymbalta. 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 Plan: -Monitor. (R11.2, T45.1X5A) Chemotherapy induced nausea and vomiting Assessment: -Associated with reflux. -No symptoms or exam findings of bowel obstruction. Plan: -Rx olanzapine 5 mg at HS. -Rx pantoprazole 40 mg at HS (I27.82) Chronic pulmonary embolism without acute cor pulmonale, unspecified pulmonary embolism type (HCC) Assessment: -Tolerating apixaban well. Plan: -Continue apixaban 5 mg BID. Portions of this documentation were copied and pasted from previous office visit notes in order to provide a cohesive continuity of the history. The note has been reviewed and edited and updated as necessary. Bk Lenz DO documented in this encounter [facility] 08-01-2024 History of Presen t illness Narrative [facility] Refill Assessment Medication(s): etoposide Patient's current medication list and adherence status to current therapy were reviewed by Specialty Pharmacy clinical pharmacist to identify any new drug interactions or non-compliance to therapy. Therapy continues to be appropriate for disease, patient response, and medical condition. Verification of therapeutic benefit and effectiveness with current therapy was completed. Adverse events, barriers in adherence, and side effects were assessed and addressed if applicable. Will proceed with refill with no changes in therapy - patient progressing towards achieving therapeutic goals based on medication-specific laboratory parameters, disease state markers and outcomes. Office/provider notes have been reviewed prior to dispensing the medication. Marketing Analytics Manager Assessment Patient confirmed: Yes Med/dose confirmed: Yes Supplies needed: No supplies needed Missed doses: Yes Count of missed doses: 1 Reason for missed doses: was vomiting and didnt take it. Estimated days supply on hand: 5 Next cycle/dose due: 08/14/24 (confirmed she has 5 remaining and only missed 1 dose) Copay amount: 0 Payment confirmed: Yes Delivery method: FedEx Signature required: No Delivery address: [address] [place] [id number] Delivery date: 08/07/24 Questions or concerns for the pharmacist?: No Did you have any side effects believed to be related to this medication, that resulted in hospitalization?: No Current Outpatient Medications on File Prior to Visit Medication Sig DULoxetine (CYMBALTA) 30 mg capsule take 1 capsule by mouth once daily amoxicillin (AMOXIL) 500 mg capsule Take 1 capsule by mouth three times a day for 10 days. FOR 10 DAYS. etoposide (VEPESID) 50 mg capsule Take 1 capsule (50 mg) by mouth once daily for 21 days, then off 7 days OLANZapine (ZYPREXA) 5 mg tablet Take 1 tablet by mouth daily at bedtime. beginning the evening of first day of chemotherapy each cycle. dexAMETHasone (DECADRON) 4 mg tablet Take 1 tablet by mouth two times a day with meals. for 3 days beginning the day after chemotherapy treatment. promethazine (PHENERGAN) 25 mg tablet Take 1 tablet by mouth every 6 hours as needed (For chemotherapy induced nausea/vomiting). FOR NAUSEA OTC PRODUCT Take 1 tablet by mouth once daily. Odalys polyethylene glycol 3350 (MIRALAX ORAL) Take by mouth two times a day as needed. magnesium hydroxide (MILK OF MAGNESIA ORAL) Take by mouth as needed. dicyclomine (BENTYL) 10 mg capsule Take 1 capsule by mouth every 6 hours. ondansetron (ZOFRAN) 8 mg tablet Take 1 tablet by mouth every 8 hours as needed for nausea/vomiting (For chemotherapy induced nausea and vomiting). iv contrast (will be provided with radiology test) CT Chest W -Inject, intravenously, once for 1 dose.No IV access, insert saline lock prior to the beginning of sedation, infusion, injection of imaging exam. Discontinue saline lock post exam. If Pt. has a central line or IVAD, may access for administration according to line specific nursing protocol. Once exam is complete flush line and de-access according to line specific nursing protocol in the CT contrast administration guidelines link. iv contrast (will be provided with radiology test) CT ABD/PEL -Inject, intravenously, once for 1 dose.No IV access, insert saline lock prior to the beginning of sedation, infusion, injection of imaging exam. Discontinue saline lock post exam. If Pt. has a central line or IVAD, may access for administration according to line specific nursing protocol. Once exam is complete flush line and de-access according to line specific nursing protocol in the CT contrast administration guidelines link. enteric contrast (will be provided with radiology test) For CT ABD/PEL W IVCON Routine order Administer, As Directed One Time Only, via Oral, Rectal, both Oral and Rectal, Enteric Tube, Stoma or Indwelling Catheter, Enteric Contrast as designated per enteric contrast guidelines senna-docusate (SENNA-S) 8.6-50 mg per tablet Take 2 tablets by mouth two times a day. (Patient taking differently: Take 1-2 tablets by mouth two times a day as needed for constipation.) aspirin 81 mg chewable tablet Take 1 tablet by mouth daily at bedtime. acetaminophen (TYLENOL) 325 mg tablet Take 650 mg by mouth every 6 hours as needed. Cholecalciferol, Vitamin D3, 50 mcg (2,000 unit) cap Take 5,000 Units by mouth once daily. No current facility-administered medications on file prior to visit. [facility] CLINICAL ASSESSMENT - HEMATOLOGY ONCOLOGY V6: Assessment to use: Refill Date of influenza vaccination reminder: 07/08/2024 Date of most recent vaccination assessment: 07/08/2024 Treatment Plan Information: Diagnosis: ovarian cancer Previous treatment(s): - Carboplatin and paclitaxel x 4 cycles - Interval debulking surgery - Carboplatin and paclitaxel x 2 cycles - Zejula - stopped d/t intolerance - Gemicitabine/carboplatin/bevaciz umab - Doxil and bevacizumab - Pemetrexed - Abraxane - Topotecan Tx Plan: Etoposide Starting Dose/Titration: Etoposide 50 mg once daily - 30 mg/m2 x 1.52 m2 = 45.6 mg -> 50 mg o Starting at lower dose to tolerability and patient condition - CrCl 52 mL/min - no dose adjustment Administration: Take with or without food. Swallow whole Storage: Refrigerated Warnings: - Bone marrow suppression - Hypersensitivity - Secondary malignancies Side Effects: include but are not limited to - Alopecia - Nausea and vomiting - Leukopenia/thrombocytopenia/anem ia Emetogenic potential: moderate to high emetic risk (>30% frequency of emesis) - antiemetic recommended - Patient has on hand/prescribed Monitoring: - CBC with differential at baseline, prior to each cycle, and as clinically necessary - Liver function (bilirubin, ALT, AST) - Renal function - Monitor adherence Drug-Drug Interactions: none Est. Tx Plan Start Date: No information available Estimated Start Date Info: Per Dr. Lenz's discretion Est. Estimated Treatment Duration: Until disease progression or unacceptable toxicity Rere Avelar documented in this encounter [facility] 08-01-2024 Note [facility] 07-30-2024 Telephone encounter Note Patient informed of Dr. Lenz's response, stated understanding. Patient is going to reschedule the extraction and will call our office to schedule a CBC. Chloe Zambrano RN [facility] 07-30-2024 Miscellaneous Notes Patient informed of Dr. Lenz's response, stated understanding. Patient is going to reschedule the extraction and will call our office to schedule a CBC. Chloe Zambrano RN The extraction should be put off a week since tomorrow will be one week of her initial dosing of apixaban. If extraction can be delayed a week then she can hold the Eliquis the day prior to and the day of the extraction and resume the day after. She would still need a CBC the day prior to extraction. Bk Lenz DO CBC is resulted. Please advise on dental extraction. Patient is also on eliquis. Thank you. Chloe Zambrano RN Patient informed of Dr. Lenz's response, stated understanding. Patient is scheduled for a CBC on Monday. Chloe Zambrano RN Advise her to start amoxicillin. Her white count was borderline neutropenic when she was in the hospital and she had continued on etoposide. CBC on Monday if not already scheduled. DISCHARGE CALL BACK Today's date: July 26, 2024 Notified of Pt discharge by: Checked [facility] records Patient discharged on 07/25/24 from [facility] to Home Primary Cancer Diagnosis: Ovarian Admitting Diagnosis: DVT/PE Discharge Summary/SBAR reviewed: Yes Handoff Discussed with Transitional Bi Developer: N/A Psychosocial Risk Factors: None If patient discharged to SNF/Rehab Facility, phone call completed to reinforce discharge instructions and follow up: N/A Call Disposition: Called patient and spoke with patient Patient identified by name and date of . YES Patient with symptom issues: Yes, patient stated she has a tooth that needs pulled. Per patient, there is no pain because she had a root canal, however there is a smell to it and she feels it's infected. Patient has an appointment with her dentist Monday07/31/24 to have it pulled. Pain: No Is patient followed by Palliative Medicine? No Palliative Medicine follow up: N/A Any new barriers to care identified? No Any new referrals needed? No Social Work Follow-Up visit scheduled? No Does the patient need interventions no or same day appointment: No MEDICATION ADHERENCE Patient discharged with prescriptions? Yes, Jonathon Discharge prescriptions filled: Yes Patient understands when to take prescriptions: Yes FOLLOW UP Patient scheduled for follow-up appointment within 5 business days of discharge? No, Other: Dr. Lenz stated to follow-up as scheduled Patient reminded of follow-up appointment with [facility] provider, Dr. Lenz on 08/05/24: Yes Discussed: patient stated her left leg is still very swollen , still has SOB but improved, denies fever or chills. Patient is nauseous today and has dry heaves. Took Zofran and still has nausea but the dry heaves resolved. Drinking broth. PATIENT EDUCATION / REINFORCEMENT Patient verbalizes understanding of when to seek Medical Attention? YES Patient verbalizes understanding of after hours and weekend phone number? YES Chloe Zambrano RN documented in this encounter [facility] 07-29-2024 Telephone encounter Note The extraction should be put off a week since tomorrow will be one week of her initial dosing of apixaban. If extraction can be delayed a week then she can hold the Eliquis the day prior to and the day of the extraction and resume the day after. She would still need a CBC the day prior to extraction. Bk Lenz DO [facility] 07-29-2024 Telephone encounter Note CBC is resulted. Please advise on dental extraction. Patient is also on eliquis. Thank you. Chloe Zambrano RN [facility] 07-26-2024 Telephone encounter Note Patient informed of Dr. Lenz's response, stated understanding. Patient is scheduled for a CBC on Monday. Chloe Zambrano RN [facility] 07-26-2024 Telephone encounter Note Advise her to start amoxicillin. Her white count was borderline neutropenic when she was in the hospital and she had continued on etoposide. CBC on Monday if not already scheduled. [facility] 07-26-2024 Telephone encounter Note DISCHARGE CALL BACK Today's date: July 26, 2024 Notified of Pt discharge by: Checked [facility] records Patient discharged on 07/25/24 from [facility] to Home Primary Cancer Diagnosis: Ovarian Admitting Diagnosis: DVT/PE Discharge Summary/SBAR reviewed: Yes Handoff Discussed with Transitional Bi Developer: N/A Psychosocial Risk Factors: None If patient discharged to SNF/Rehab Facility, phone call completed to reinforce discharge instructions and follow up: N/A Call Disposition: Called patient and spoke with patient Patient identified by name and date of . YES Patient with symptom issues: Yes, patient stated she has a tooth that needs pulled. Per patient, there is no pain because she had a root canal, however there is a smell to it and she feels it's infected. Patient has an appointment with her dentist Monday07/31/24 to have it pulled. Pain: No Is patient followed by Palliative Medicine? No Palliative Medicine follow up: N/A Any new barriers to care identified? No Any new referrals needed? No Social Work Follow-Up visit scheduled? No Does the patient need interventions no or same day appointment: No MEDICATION ADHERENCE Patient discharged with prescriptions? Yes, Jonathon Discharge prescriptions filled: Yes Patient understands when to take prescriptions: Yes FOLLOW UP Patient scheduled for follow-up appointment within 5 business days of discharge? No, Other: Dr. Lenz stated to follow-up as scheduled Patient reminded of follow-up appointment with [facility] provider, Dr. Lenz on 08/05/24: Yes Discussed: patient stated her left leg is still very swollen , still has SOB but improved, denies fever or chills. Patient is nauseous today and has dry heaves. Took Zofran and still has nausea but the dry heaves resolved. Drinking broth. PATIENT EDUCATION / REINFORCEMENT Patient verbalizes understanding of when to seek Medical Attention? YES Patient verbalizes understanding of after hours and weekend phone number? YES Chloe Zambrano RN [facility] 07-23-2024 Telephone encounter Note ORAL ANTI-CANCER AGENTS FOLLOW-UP PHONE CALL/VISIT Patient identified by name and date of . YES Patient is on cycle 1, week 2, day 9 of Etoposide for Ovarian Cancer. SYMPTOM ASSESSMENT Headache: No Visual Changes: No Dizziness: No Do you have any periods of confusion? No Mood changes: No Mouth or throat pain: No Appetite: I just started yesterday because I was vomiting 2 days in a row . Taste changes: No Nausea: No Vomiting: Yes, Monday 3 episodes, Monday 6 episodes. Heartburn: Yesterday but not today Weight gain/loss: No Episodes of palpitations/chest discomfort/pressure/pain No Shortness of breath: Yes very bad today . Resting alleviates the SOB. I have to sit down, I can't catch my breath . Patient had a paracentesis last week, cancelled the procedure today. SOB started Monday afternoon. Patient stated I feel like I'm going to drop if I walk anymore . Oxygen 99%, HR 141 bpm. HR came down to low 100's while resting on the phone. Patient is not on blood thinners, history of DVT during . Patient denies pain with deep breathing. Patient wore the pulse oximeter and walked 20 feet to her desk. When she got to her desk her HR was 147 bpm. Cough: No Diarrhea: no Constipation: no Bladder/Urinary Changes: None Pain: No=0 (pain 0 on a scale of 0-10). Denies abdominal pain Fever: No Chills: No Cold sensitivity: No Numbness/weakness: Yes feels weak. Edema: left leg swelling skin is tight around the walls that goes up an inch above my ankle , per MA at patients work 1+ edema, no pitting . Had 3-4+ swelling over the weekend. Denies redness, pain, or bruising. Swelling is normal in the morning. Skin changes: No Itching: No Yellowing of skin or eyes: No Musculoskeletal/joint changes/issues No Bleeding issues: No Activity Level (0-100%): decreased over the weekend, feeling better yesterday/today except for the SOB Do you need to take naps? No Does the patient need interventions or same day appointment:Yes, ER- spoke to Dr. Lenz who agreed. ADDITIONAL FOLLOW UP: The next outreach call is due on: TBD and was scheduled patient instructed to call with any new/worsening symptoms. The following lab tests are due: CBC 07/29 Verified patient is aware of next appointment in the cancer center: Yes. Verified patient verbalized how to correctly refill the oral agent prescription. Yes Does the patient have any financial difficulties affording this medication? No Patient verbalizes understanding of when to seek Medical Attention? YES Patient verbalizes understanding of after-hours and weekend phone number? YES Patient verbalized importance of medication compliance in taking the oral agent as prescribed. Patient instructed to call if unable to comply. Chloe Zambrano RN [facility] 07-23-2024 Miscellaneous Notes ORAL ANTI-CANCER AGENTS FOLLOW-UP PHONE CALL/VISIT Patient identified by name and date of . YES Patient is on cycle 1, week 2, day 9 of Etoposide for Ovarian Cancer. SYMPTOM ASSESSMENT Headache: No Visual Changes: No Dizziness: No Do you have any periods of confusion? No Mood changes: No Mouth or throat pain: No Appetite: I just started yesterday because I was vomiting 2 days in a row . Taste changes: No Nausea: No Vomiting: Yes, Monday 3 episodes, Monday 6 episodes. Heartburn: Yesterday but not today Weight gain/loss: No Episodes of palpitations/chest discomfort/pressure/pain No Shortness of breath: Yes very bad today . Resting alleviates the SOB. I have to sit down, I can't catch my breath . Patient had a paracentesis last week, cancelled the procedure today. SOB started Monday afternoon. Patient stated I feel like I'm going to drop if I walk anymore . Oxygen 99%, HR 141 bpm. HR came down to low 100's while resting on the phone. Patient is not on blood thinners, history of DVT during . Patient denies pain with deep breathing. Patient wore the pulse oximeter and walked 20 feet to her desk. When she got to her desk her HR was 147 bpm. Cough: No Diarrhea: no Constipation: no Bladder/Urinary Changes: None Pain: No=0 (pain 0 on a scale of 0-10). Denies abdominal pain Fever: No Chills: No Cold sensitivity: No Numbness/weakness: Yes feels weak. Edema: left leg swelling skin is tight around the walls that goes up an inch above my ankle , per MA at patients work 1+ edema, no pitting . Had 3-4+ swelling over the weekend. Denies redness, pain, or bruising. Swelling is normal in the morning. Skin changes: No Itching: No Yellowing of skin or eyes: No Musculoskeletal/joint changes/issues No Bleeding issues: No Activity Level (0-100%): decreased over the weekend, feeling better yesterday/today except for the SOB Do you need to take naps? No Does the patient need interventions or same day appointment:Yes, ER- spoke to Dr. Lenz who agreed. ADDITIONAL FOLLOW UP: The next outreach call is due on: TBD and was scheduled patient instructed to call with any new/worsening symptoms. The following lab tests are due: CBC 07/29 Verified patient is aware of next appointment in the cancer center: Yes. Verified patient verbalized how to correctly refill the oral agent prescription. Yes Does the patient have any financial difficulties affording this medication? No Patient verbalizes understanding of when to seek Medical Attention? YES Patient verbalizes understanding of after-hours and weekend phone number? YES Patient verbalized importance of medication compliance in taking the oral agent as prescribed. Patient instructed to call if unable to comply. Chloe Zambrano RN documented in this encounter [facility] 07-18-2024 Telephone encounter Note Spoke to patient and informed her of her result. Patient stated she is feeling much better, no nausea, sleeping better, and her appetite has improved since stopping the topotecan. Patient stated she understands why her number increased. CA 125 released to . Patient stated she had swelling in her left foot yesterday, she went to bed, and this morning it's back to normal. Denies redness, bruising, or pain in her lower leg. Patient had pain on the outer side where your leg connects in the left leg/hip x 3-4 days. Patient stated it was a mild pain and nothing you would report . Discussed elevating her legs and to wear compression stockings. Discussed s/s of when to call our office. Chloe Zambrano RN [facility] 07-18-2024 Miscellaneous Notes Spoke to patient and informed her of her result. Patient stated she is feeling much better, no nausea, sleeping better, and her appetite has improved since stopping the topotecan. Patient stated she understands why her number increased. CA 125 released to . Patient stated she had swelling in her left foot yesterday, she went to bed, and this morning it's back to normal. Denies redness, bruising, or pain in her lower leg. Patient had pain on the outer side where your leg connects in the left leg/hip x 3-4 days. Patient stated it was a mild pain and nothing you would report . Discussed elevating her legs and to wear compression stockings. Discussed s/s of when to call our office. Chloe Zambrano RN Patient called in wanting to talk to someone about her CA125 results. Please advise. Lilliana Jimbo Results have not been released to [employer]. Deanna Ag LPN documented in this encounter [facility] 07-18-2024 Telephone encounter Note Patient called in wanting to talk to someone about her CA125 results. Please advise. Lilliana Jimbo Results have not been released to [employer]. Deanna Ag LPN [facility] 07-11-2024 Telephone encounter Note PSS is aware of start date and has scheduled accordingly. Deanna Ag LPN [facility] 07-11-2024 Miscellaneous Notes PSS is aware of start date and has scheduled accordingly. Deanna Ag LPN Patient started/will start taking etoposide on 07/15/24. Chloe Zambrano RN Spoke with patient and scheduled as directed. Lilliana Choi From 07/08/2024 phone note- In the meantime we can change therapy to oral etoposide. I have used it on several occasions in the past. I sent the prescription to the [facility] specialty pharmacy. May end up being less expensive and hopefully delivered to her more quickly and if trying to go through local pharmacy. This is oral therapy- no orders needed. She will still need labs and OV scheduled as directed below. Deanna Ag LPN Please update orders. Lilliana Choi PSS- please contact patient to schedule as directed below. Deanna Ag LPN Her last paracentesis was a week ago. I thought we were going to have a standing order for that every week? Nothing on schedule right now. It has been done at [place]. She can start etoposide on Monday. Baseline labs on Monday CBC/CMP/CA125 and hep remote panel. CBC on days 8 and 15. Office visit with CBC/CMP/CA125 during the off week. Bk Lenz DO [facility] Care Coordination FOLLOW-UP NOTE Patient identified by name and date of . YES Spoke to patient Summary: (Reason for follow-up) Concerns: (New Barriers to care) Patient stated Monday evening I woke up out of my sleep and started vomiting violently which subsided Monday. Patient had 3 episodes. Patient stated she didn't feel well yesterday but she was able to keep bananas and applesauce down. Patient felt worn out yesterday. Patient stated she is feeling really well today. Patient had yogurt for breakfast. Patient denies dizziness with standing, decreased urine output or dark urine, fever, or chills. Patient feels she is on the upswing today. Patient will receive etoposide tomorrow and is asking when she should start the etoposide. Patient is nervous about starting it too soon since she has been unwell. Patient verbalized when to seek Medical Attention and an understanding of after- hours phone number and process: Yes Care Coordination Plan: Will follow up after speaking to Dr. Foreign Zambrano RN July 10, 2024 Patient requested to speak with Chloe. States nothing urgent, please call when able. documented in this encounter [facility] 07-11-2024 Telephone encounter Note Patient started/will start taking etoposide on 07/15/24. Chloe Zambrano RN [facility] 07-11-2024 Telephone encounter Note Spoke with patient and scheduled as directed. Lilliana Choi [facility] 07-11-2024 Telephone encounter Note From 07/08/2024 phone note- In the meantime we can change therapy to oral etoposide. I have used it on several occasions in the past. I sent the prescription to the [facility] specialty pharmacy. May end up being less expensive and hopefully delivered to her more quickly and if trying to go through local pharmacy. This is oral therapy- no orders needed. She will still need labs and OV scheduled as directed below. Deanna Ag LPN [facility] 07-11-2024 Telephone encounter Note Please update orders. Lilliana Choi [facility] 07-10-2024 Note [facility] 07-10-2024 History of Presen t illness Narrative Referring Provider: Bk Lenz DO Patient: Evelyn Mccabe Diagnosis: Ovarian Cancer Date of initial C CONSULT: 07/09/2024 [facility] follow up date/plan: IMPRESSION AND PLAN: Ms. Evelyn Mccabe is a 58 year old woman with refractory high grade serous ovarian carcinoma who presents for evaluation regarding phase I trials. She's currently receiving treatment under the care of my colleague, Dr Bk Lenz in [place]. However at progression, she will be a candidate for [id number], istisociclib, which targets MYC aberrations. We will have her name on our list for this study. Dr Lenz will contact us if there is no response to her current therapy Plan: 1. Put her on our waiting list for [id number] 2. Dr Lenz will contact us if there's disease progression on her current therapy All questions and concerns have been addressed. A total of 45 minutes was spent, 25 minutes of which was in face to face counselling via zoom Srinivasan Alegria MD;PhD Medical Oncology July 09, 2024 1:33 PM Tasks Completed: Patient emailed informed consent for [id number] Patient placed on sponsor waitlist for [id number] Patient placed on C Patient Tracker for Nurse Navigator Monitoring Plan to follow up with patient after next progression scans. Trials patient is a potential candidate for: After initial review, patient is preliminarily ELIGIBLE, for [facility] [id number]. Eligibility will be officially determined pending applicable consenting and screening procedures. Patient may be contacted about an additional trial option that is not listed but is appropriate per [facility] provider assessment If the patient was wait listed for any of the [facility] trials a bi-weekly [employer] message/Telephone call will be sent out to the patient giving an update on current status. Trial Sponsors do not typically give much detail to where the candidate is on their waitlist, how long their waitlist is, or what the wait time is. Wait listing does not always guarantee a spot on the trial. It would be a good idea to discuss with patient the importance of a backup plan if quick accrual to a trial is not an option. documented in this encounter [facility] 07-10-2024 Telephone encounter Note PSS- please contact patient to schedule as directed below. Deanna Ag LPN [facility] 07-10-2024 Telephone encounter Note Her last paracentesis was a week ago. I thought we were going to have a standing order for that every week? Nothing on schedule right now. It has been done at [place]. She can start etoposide on Monday. Baseline labs on Monday CBC/CMP/CA125 and hep remote panel. CBC on days 8 and 15. Office visit with CBC/CMP/CA125 during the off week. Bk Lenz DO [facility] 07-10-2024 Telephone encounter Note [facility] Care Coordination FOLLOW-UP NOTE Patient identified by name and date of . YES Spoke to patient Summary: (Reason for follow-up) Concerns: (New Barriers to care) Patient stated Monday evening I woke up out of my sleep and started vomiting violently which subsided Monday. Patient had 3 episodes. Patient stated she didn't feel well yesterday but she was able to keep bananas and applesauce down. Patient felt worn out yesterday. Patient stated she is feeling really well today. Patient had yogurt for breakfast. Patient denies dizziness with standing, decreased urine output or dark urine, fever, or chills. Patient feels she is on the upswing today. Patient will receive etoposide tomorrow and is asking when she should start the etoposide. Patient is nervous about starting it too soon since she has been unwell. Patient verbalized when to seek Medical Attention and an understanding of after- hours phone number and process: Yes Care Coordination Plan: Will follow up after speaking to Dr. Foreign Zambrano RN July 10, 2024 [facility] 07-10-2024 Telephone encounter Note Patient requested to speak with Chloe. States nothing urgent, please call when able. [facility] Work Phone: 07-09-2024 Note [facility] 07-09-2024 History of Presen t illness Narrative Images from the original note were not included. [facility] NEW PATIENT VISIT Department of Hematology and Medical Oncology This visit is a Virtual MyChart video encounter which required patient-provider interaction for the medical decision making as documented below PATIENT NAME: Evelyn Mccabe [facility] NO.: [id number] DATE OF SERVICE: 07/09/2024 PCP: Colin Sofia MD REFERRING PROVIDER: FELA May DIAGNOSIS: High huang serous adenocarcinoma of ovary STAGE: IV BIOMARKERS: SNVs/Indels - TP53 splice site c.782+[id number] Immuno-Oncology Biomarkers - PD-L1 LDT: Not Detected PRIOR THERAPY: 1) Carboplatin and paclitaxel x4 cycles. 2) Interval debulking surgery 09/28/2022 3) Carboplatin and paclitaxel x2 cycles. Completed 11/2022. 4) Niraparib. Did not tolerate due to side effects (see above) 5) Abraxane CURRENT THERAPY: Topotecan SPECIAL MEDICAL ISSUES: History of DVT CHIEF COMPLAINT: Ovarian cancer HISTORY OF PRESENT ILLNESS: Ms. Evelyn Mccabe is a 58 year old woman with refractory high grade serous ovarian carcinoma who presents for evaluation regarding phase I trials. She's currently receiving treatment under the care of my colleague, Dr Bk Lenz in [place] PAST MEDICAL HISTORY: PAST MEDICAL HISTORY Diagnosis Date Cervical high risk human papillomavirus (HPV) DNA test positive DVT (deep vein thrombosis) in 10/16/1984 Malignant neoplasm of both ovaries (HCC) 02/23/2023 PAST SURGICAL HISTORY: PAST SURGICAL HISTORY Procedure Laterality Date APPENDECTOMY 09/2022 COLPOSCOPY CERVIX UPPER/ADJACENT VAGINA 10/15/2008 Colposcopy HUMEROUS LEFT 2ND OR 11/29/2004 left ORIF periarticular fx of distal humerus.screw fixation LIG/TRNSXJ FLP TUBE ABDL/VAG APPR UNI/BI Tubal ligation PT ED HEART AND VASCULAR 08/2021 TONSILLECTOMY & ADENOIDECTOMY <AGE 12 02/21/2023 TOTAL ABDOM HYSTERECTOMY 09/2022 MEDICATIONS: etoposide (VEPESID) 50 mg capsule Take 1 capsule (50 mg) by mouth once daily for 21 days, then off 7 days OLANZapine (ZYPREXA) 5 mg tablet Take 1 tablet by mouth daily at bedtime. beginning the evening of first day of chemotherapy each cycle. dexAMETHasone (DECADRON) 4 mg tablet Take 1 tablet by mouth two times a day with meals. for 3 days beginning the day after chemotherapy treatment. promethazine (PHENERGAN) 25 mg tablet Take 1 tablet by mouth every 6 hours as needed (For chemotherapy induced nausea/vomiting). FOR NAUSEA OTC PRODUCT Take 1 tablet by mouth once daily. Odalys polyethylene glycol 3350 (MIRALAX ORAL) Take by mouth two times a day as needed. magnesium hydroxide (MILK OF MAGNESIA ORAL) Take by mouth as needed. dicyclomine (BENTYL) 10 mg capsule Take 1 capsule by mouth every 6 hours. ondansetron (ZOFRAN) 8 mg tablet Take 1 tablet by mouth every 8 hours as needed for nausea/vomiting (For chemotherapy induced nausea and vomiting). iv contrast (will be provided with radiology test) CT Chest W -Inject, intravenously, once for 1 dose.No IV access, insert saline lock prior to the beginning of sedation, infusion, injection of imaging exam. Discontinue saline lock post exam. If Pt. has a central line or IVAD, may access for administration according to line specific nursing protocol. Once exam is complete flush line and de-access according to line specific nursing protocol in the CT contrast administration guidelines link. iv contrast (will be provided with radiology test) CT ABD/PEL -Inject, intravenously, once for 1 dose.No IV access, insert saline lock prior to the beginning of sedation, infusion, injection of imaging exam. Discontinue saline lock post exam. If Pt. has a central line or IVAD, may access for administration according to line specific nursing protocol. Once exam is complete flush line and de-access according to line specific nursing protocol in the CT contrast administration guidelines link. enteric contrast (will be provided with radiology test) For CT ABD/PEL W IVCON Routine order Administer, As Directed One Time Only, via Oral, Rectal, both Oral and Rectal, Enteric Tube, Stoma or Indwelling Catheter, Enteric Contrast as designated per enteric contrast guidelines senna-docusate (SENNA-S) 8.6-50 mg per tablet Take 2 tablets by mouth two times a day. (Patient taking differently: Take 1-2 tablets by mouth two times a day as needed for constipation.) DULoxetine (CYMBALTA) 30 mg capsule Take 1 capsule by mouth once daily. aspirin 81 mg chewable tablet Take 1 tablet by mouth daily at bedtime. acetaminophen (TYLENOL) 325 mg tablet Take 650 mg by mouth every 6 hours as needed. Cholecalciferol, Vitamin D3, 50 mcg (2,000 unit) cap Take 5,000 Units by mouth once daily. ALLERGIES: ALLERGIES Allergen Reactions Bactrim [Sulfametho* Hives Dilaudid [Hydromorp* Hives Lipitor [Atorvastat* Diarrhea UTI, poor appetite, diarrhea Metoprolol Diarrhea fatigue, diarrhea FAMILY HISTORY: FAMILY HISTORY Problem Relation Age of Onset Thyroid Mother Hypertension Father Heart Father Thyroid Sister Half-sister other (CHF) Sister Thyroid Sister Half-sister Colon Cancer Sister Thyroid Sister Half-sister Hypertension Brother Cancer Maternal Grandmother OVARIAN Hypertension Maternal Grandfather Cancer Maternal Grandfather LUNG Lung Cancer Paternal Grandmother REVIEW OF SYSTEMS: She has some baseline fatigue. Appetite is good but has lost weight, however weight loss has stabilised. She has ascites and has been receiving therapeutic paracentesis PHYSICAL EXAMINATION: THIS WAS A VIRTUAL VISIT There were no vitals filed for this visit. ECOG PERFORMANCE STATUS: 1- Restricted in physically strenuous activity. Carries out light duty. (PER HER REPORT) DIAGNOSTIC STUDIES: LABS: Recent Labs 07/04/24 0913 06/26/24 0809 06/13/24 0915 06/06/24 0826 WBC 4.90 4.51 3.90 6.32 HB 10.1* 10.0* 10.1* 10.7* MCV 80.6 80.5 83.0 83.2 PLT 436* 426* 250 416* ABSNEUT 2.97 2.53 2.39 3.99 ABSMONO 0.28 0.27 0.31 0.60 Recent Labs 06/26/24 0809 06/13/24 0915 06/06/24 0826 05/09/24 1109 NA 140 137 136 138 K 4.1 4.0 4.0 4.3 CHLOR 106 102 106 103 CO2 23 23 23 26 BUN 10 11 15 18 CREAT 0.92 0.91 0.85 0.78 ALB 3.8* 3.6* 3.7* 4.1 TPROT 6.6 6.7 6.6 6.6 CA 9.6 9.3 9.2 9.1 MG 1.8 1.9 1.7 1.8 ALT 19 13 10 24 AST 21 20 17 24 TBILI 0.2 0.2 <0.2* 0.2 GLUC 114* 102* 108* 140* EGFROTH 72 73 80 88 Recent Labs 07/03/24 0842 PTSEC 10.2 INR 0.9 IMPRESSION AND PLAN: Ms. Evelyn Mccabe is a 58 year old woman with refractory high grade serous ovarian carcinoma who presents for evaluation regarding phase I trials. She's currently receiving treatment under the care of my colleague, Dr Bk Lenz in [place]. However at progression, she will be a candidate for [id number], istisociclib, which targets MYC aberrations. We will have her name on our list for this study. Dr Lenz will contact us if there is no response to her current therapy Plan: 1. Put her on our waiting list for [id number] 2. Dr Lenz will contact us if there's disease progression on her current therapy All questions and concerns have been addressed. A total of 45 minutes was spent, 25 minutes of which was in face to face counselling via zoom Srinivasan Alegria MD;PhD Medical Oncology July 09, 2024 1:33 PM documented in this encounter [facility] 07-08-2024 Telephone encounter Note Cancelled appointments as directed. Marilin Lara [facility] 07-08-2024 Miscellaneous Notes Cancelled appointments as directed. Marilin Lara Please cancel all future topotecan treatments. Keep labs/OV as scheduled for now on 07/24. Patient aware of changes and instructed to call this nurse once she has received or has a delivery date of etoposide. Chloe Zambrano RN Spoke to patient and informed her of Dr. Lenz's response, she stated understanding. [facility] and requested that the etoposide be expedited. Will document oral edu in a separate phone encounter. Chloe Zambrano RN I think she will feel better in terms of reflux and early satiety as soon as she has paracentesis on Monday. In the meantime we can change therapy to oral etoposide. I have used it on several occasions in the past. I sent the prescription to the [facility] specialty pharmacy. May end up being less expensive and hopefully delivered to her more quickly and if trying to go through local pharmacy. Bk Lenz DO Care Coordination Triage Note [facility] Situation: Patient reports Other patient stated I'm not going to do this treatment anymore . I'm physically just worn out . Background: Ovarian Cancer, topotecan last dose 07/04/24 Assessment: Patient stated she was in bed for 4 days, lost another 4 lbs, every time she stood up over the weekend she felt like she was going to pass out. Patient stated she is very hungry but she takes a couple of bites and isn't able to eat much at a time. Weight: 103 lbs. Down 15 lbs since 06/26/24. Patient declines nutrition consult at this time because her appetite improves after 4 days. Fever: no Chills: no Appetite: poor for 3-4 days after each treatment.. Was able to eat a brownie sized piece of lasagna today. Snacking a lot during the day. Nausea: denies, has stomach cramps after eating. Vomiting: denies Indigestion/heartburn: yes, I've never had this before . Patient stated she has had food come back up into her throat and she swallows it back down again. Made diet changes to try to avoid indigestion. Diarrhea: on and off but hasn't had any issues recently. Constipation: possibly, having BM's but smaller BM's. Doesn't feel uncomfortable, abdomen is soft. Scheduled to discuss trial options tomorrow. Dr. Romo 07/24 Recommendations: Will discuss with Dr. Foreign Zambrano RN July 08, 2024 12:33 PM Care Coordination Triage Note [facility] Situation: Called patient per her request, no answer, a VM was left requesting a call back. Background: Ovarian Cancer, topotecan last dose 07/04/24. Chloe Zambrano RN July 08, 2024 10:44 AM Patient called to update Chloe on how she is feeling. No answer/vm for care coord. Please call patient today at her request. documented in this encounter [facility] 07-08-2024 Telephone encounter Note ORAL ANTI-CANCER AGENTS EDUCATION patient called today for oral medication education of etoposide for Ovarian Cancer Anticipated/Scheduled start date: TBD READINESS TO LEARN Cognitive Ability: Alert and oriented Motivation to Learn: Interested Family Support: High - Very involved in pt care Instruction Provided to: Patient Patient learns best by: Multiple Methods Factors affecting learning: None Physical limitation affecting learning: None BETANCOURT ASSESSMENT: 1.) Verified that patient knows that the oral agents are for cancer and are taken by mouth. Yes 2.) Medication review completed during visit. No 3.) Patient is able to swallow pills. Yes 4.) Patient is able to read the drug label/information. Yes 5.) Patient is able to open the medication bottles and packages. Yes 6.) Has patient taken other pills for cancer? Yes, isidra, stopped d/t blurry vision and heart palpitations. 7.) Is patient experiencing any symptoms that would affect their ability to keep down pills, for example nausea or vomiting? No 8.) Verified that patient understands prescription delivery, benefit investigation and refill process. Yes DRUG-SPECIFIC EDUCATION: 1.) Verified patient knows the drug name. Yes 2.) Verified patient understands the dose and schedule of oral anti cancer agent. Yes 3.) Verified patient knows what to do if a medication dose is missed. Yes 4.) Verified patient understands where to store the drug. Yes 5.) Verified patient understands potential side effects and how to manage them. Yes 6.)Verified patient understands handling precautions of oral anti cancer agent. Yes 7.) Verified patient was given written instructions and understands when and whom to call with questions. Yes 8.) Verified patient understands where and how to return drug. Yes 9.) Verified patient received drug specific adult education handout and neutropenic wallet card Yes EVALUATE: The patient demonstrated an understanding of all the above education using the teach-back method. Yes Instructed to call us with any questions, concerns, and/or unresolved symptoms. Will continue to follow up and provide reinforcement of teaching topics as needed. Chloe Zambrano RN T [facility] 07-08-2024 Miscellaneous Notes ORAL ANTI-CANCER AGENTS EDUCATION patient called today for oral medication education of etoposide for Ovarian Cancer Anticipated/Scheduled start date: TBD READINESS TO LEARN Cognitive Ability: Alert and oriented Motivation to Learn: Interested Family Support: High - Very involved in pt care Instruction Provided to: Patient Patient learns best by: Multiple Methods Factors affecting learning: None Physical limitation affecting learning: None BETANCOURT ASSESSMENT: 1.) Verified that patient knows that the oral agents are for cancer and are taken by mouth. Yes 2.) Medication review completed during visit. No 3.) Patient is able to swallow pills. Yes 4.) Patient is able to read the drug label/information. Yes 5.) Patient is able to open the medication bottles and packages. Yes 6.) Has patient taken other pills for cancer? Yes, isidra, stopped d/t blurry vision and heart palpitations. 7.) Is patient experiencing any symptoms that would affect their ability to keep down pills, for example nausea or vomiting? No 8.) Verified that patient understands prescription delivery, benefit investigation and refill process. Yes DRUG-SPECIFIC EDUCATION: 1.) Verified patient knows the drug name. Yes 2.) Verified patient understands the dose and schedule of oral anti cancer agent. Yes 3.) Verified patient knows what to do if a medication dose is missed. Yes 4.) Verified patient understands where to store the drug. Yes 5.) Verified patient understands potential side effects and how to manage them. Yes 6.)Verified patient understands handling precautions of oral anti cancer agent. Yes 7.) Verified patient was given written instructions and understands when and whom to call with questions. Yes 8.) Verified patient understands where and how to return drug. Yes 9.) Verified patient received drug specific adult education handout and neutropenic wallet card Yes EVALUATE: The patient demonstrated an understanding of all the above education using the teach-back method. Yes Instructed to call us with any questions, concerns, and/or unresolved symptoms. Will continue to follow up and provide reinforcement of teaching topics as needed. Chloe Zambrano RN documented in this encounter [facility] 07-08-2024 Telephone encounter Note Please cancel all future topotecan treatments. Keep labs/OV as scheduled for now on 07/24. Patient aware of changes and instructed to call this nurse once she has received or has a delivery date of etoposide. Chloe Zambrano RN [facility] 07-08-2024 History of Presen t illness Narrative Images from the original note were not included. [facility] received prescription(s) for Etoposide from Dr. Lenz's office. Benefits investigation was conducted, indicating that a prior authorization is not required at this time per patient's plan with [employer]. Prescriptions will now be processed through [facility] for determination of next steps. Nora Pires, PharmD Clinical Pharmacist, Oncology [facility] P: ; F: Pool: P [facility] Pool #: [id number] documented in this encounter [facility] 07-08-2024 Note [facility] 07-08-2024 Note [facility] 07-08-2024 Telephone encounter Note Spoke to patient and informed her of Dr. Lenz's response, she stated understanding. [facility] spoke to Nora and requested that the etoposide be expedited. Will document oral edu in a separate phone encounter. Chloe Zambrano RN [facility] 07-08-2024 Telephone encounter Note I think she will feel better in terms of reflux and early satiety as soon as she has paracentesis on Monday. In the meantime we can change therapy to oral etoposide. I have used it on several occasions in the past. I sent the prescription to the [facility] specialty pharmacy. May end up being less expensive and hopefully delivered to her more quickly and if trying to go through local pharmacy. Bk Lenz DO [facility] 07-08-2024 Telephone encounter Note Care Coordination Triage Note [facility] Situation: Patient reports Other patient stated I'm not going to do this treatment anymore . I'm physically just worn out . Background: Ovarian Cancer, topotecan last dose 07/04/24 Assessment: Patient stated she was in bed for 4 days, lost another 4 lbs, every time she stood up over the weekend she felt like she was going to pass out. Patient stated she is very hungry but she takes a couple of bites and isn't able to eat much at a time. Weight: 103 lbs. Down 15 lbs since 06/26/24. Patient declines nutrition consult at this time because her appetite improves after 4 days. Fever: no Chills: no Appetite: poor for 3-4 days after each treatment.. Was able to eat a brownie sized piece of lasagna today. Snacking a lot during the day. Nausea: denies, has stomach cramps after eating. Vomiting: denies Indigestion/heartburn: yes, I've never had this before . Patient stated she has had food come back up into her throat and she swallows it back down again. Made diet changes to try to avoid indigestion. Diarrhea: on and off but hasn't had any issues recently. Constipation: possibly, having BM's but smaller BM's. Doesn't feel uncomfortable, abdomen is soft. Scheduled to discuss trial options tomorrow. Dr. Romo 07/24 Recommendations: Will discuss with Dr. Foreign Zambrano RN July 08, 2024 12:33 PM [facility] 07-08-2024 Telephone encounter Note Care Coordination Triage Note [facility] Situation: Called patient per her request, no answer, a VM was left requesting a call back. Background: Ovarian Cancer, topotecan last dose 07/04/24. Chloe Zambrano RN July 08, 2024 10:44 AM [facility] 07-08-2024 Telephone encounter Note Patient called to update Chloe on how she is feeling. No answer/vm for care coord. Please call patient today at her request. [facility] Work Phone: 07-05-2024 Telephone encounter Note Patient scheduled. [facility] Work Phone: 07-05-2024 Miscellaneous Notes Patient scheduled. Left message on patient's voicemail to schedule appointment in [facility] documented in this encounter [facility] 07-04-2024 History of Presen t illness Narrative Pharmacy aware of 10lbs weight loss within a week. Verified that current weight is still within 5% BSA parameter for dosage purposes. Paracentesis done yesterday and 800cc was removed. No s/s of infection at this time. Giselle CHICAS faxed over future paracentesis orders to [facility] per pt's preference. Pt aware [facility] willr each to her to schedule. documented in this encounter [facility] 07-04-2024 Note [facility] 07-04-2024 Telephone encounter Note Patient requesting that she have her weekly paracentesis done at [facility]. Orders and information faxed to [facility] IR per patient request. [facility] IR should reach out to patient to schedule. Deanna Ag LPN [facility] 07-04-2024 Miscellaneous Notes Patient requesting that she have her weekly paracentesis done at [facility]. Orders and information faxed to [facility] IR per patient request. [facility] IR should reach out to patient to schedule. Deanna Ag LPN documented in this encounter [facility] 07-02-2024 Telephone encounter Note You are scheduled for a paracentesis at [facility] on Monday07/03/2024. You will receive a phone call the working day before letting you know the exact arrival time. Your procedure is scheduled to start at 0900 am. They will tell you to arrive about 1 hour before your procedure start time. (anticipate arriving at 0800 am). Park and enter at Entrance A which is located at the back of [facility] and take the elevator to the first floor. This will bring you to the Ambulatory surgery waiting area on first floor. You can expect to be here for approximately 3-5 hours. Diet: You may eat and drink like normal the day of your procedure. Medications: You may take your regular medications the morning of your procedure. If you have any questions, please don't hesitate to call the radiology nursing office at [phone] option 3.? if you need a wheelchair, or assistance at Entrance A when you arrive, please call [phone] [facility] 07-02-2024 Miscellaneous Notes You are scheduled for a paracentesis at [facility] on Monday07/03/2024. You will receive a phone call the working day before letting you know the exact arrival time. Your procedure is scheduled to start at 0900 am. They will tell you to arrive about 1 hour before your procedure start time. (anticipate arriving at 0800 am). Park and enter at Entrance A which is located at the back [facility] and take the elevator to the first floor. This will bring you to the Ambulatory surgery waiting area on first floor. You can expect to be here for approximately 3-5 hours. Diet: You may eat and drink like normal the day of your procedure. Medications: You may take your regular medications the morning of your procedure. If you have any questions, please don't hesitate to call the radiology nursing office at [phone] option 3.? if you need a wheelchair, or assistance at Entrance A when you arrive, please call [phone] documented in this encounter [facility] 07-01-2024 Telephone encounter Note Left message on patient's voicemail to schedule appointment in [facility] 06-28-2024 Note [facility] 06-28-2024 History of Presen t illness Narrative Evelyn Mccabe was reviewed for potential clinical trial enrollment on [facility] #[id number] by the [employer] group on 06/28/24. Per initial review, patient has disease type OVARIAN CANCER and appears to be preliminarily eligible and further testing/procedures required to determine final eligibility. Requesting republican notified. No Study tasks were completed as a result of this initial review. Bubba Asher RN Evelyn Mccabe was reviewed for potential clinical trial enrollment on [facility] #[id number] by the [employer] group on 06/28/24. Per initial review, patient has disease type OVARIAN CANCER and appears to be preliminarily eligible and further testing/procedures required to determine final eligibility. Requesting republican notified. No Study tasks were completed as a result of this initial review. Bubba Asher RN Evelyn Mccabe was reviewed for potential clinical trial enrollment on [facility] #[id number] by the [employer] group on 06/28/24. Per initial review, patient has disease type OVARIAN CANCER and appears to be preliminarily eligible and further testing/procedures required to determine final eligibility. Requesting republican notified. No Study tasks were completed as a result of this initial review. Bubba Asher RN Evelyn Mccabe was reviewed for potential clinical trial enrollment on [facility] #[id number] by the [employer] group on 06/28/24. Per initial review, patient has disease type OVARIAN CANCER and appears to be preliminarily eligible and further testing/procedures required to determine final eligibility. Requesting republican notified. No Study tasks were completed as a result of this initial review. Bubba Asher RN Evelyn Mccabe was reviewed for potential clinical trial enrollment on [facility] #[id number] by the [employer] group on 06/28/24. Per initial review, patient has disease type OVARIAN CANCER and appears to be preliminarily eligible and further testing/procedures required to determine final eligibility. Requesting republican notified. No Study tasks were completed as a result of this initial review. Bubba Asher RN Evelyn Kapoor Estelle was reviewed for potential clinical trial enrollment on [facility] #[id number] by the [employer] group on 06/28/24. Per initial review, patient has disease type OVARIAN CANCER and appears to be preliminarily eligible and further testing/procedures required to determine final eligibility. Requesting republican notified. No Study tasks were completed as a result of this initial review. Bubba Asher RN Evelyn Kapoor Estelle was reviewed for potential clinical trial enrollment on [facility] #[id number] by the [employer] group on 06/28/24. Per initial review, patient has disease type OVARIAN CANCER and appears to be preliminarily eligible and further testing/procedures required to determine final eligibility. Requesting republican notified. No Study tasks were completed as a result of this initial review. Bubba Asher RN Evelyn Kapoor Estelle was reviewed for potential clinical trial enrollment on [facility] #[id number] by the [employer] group on 06/28/24. Per initial review, patient has disease type OVARIAN CANCER and appears to be preliminarily eligible and further testing/procedures required to determine final eligibility. Requesting republican notified. No Study tasks were completed as a result of this initial review. Bubba Asher RN Evelyn Mccabe was reviewed for potential clinical trial enrollment on [facility] #[id number] by the [employer] group on 06/28/24. Per initial review, patient has disease type OVARIAN CANCER and appears to be preliminarily eligible and further testing/procedures required to determine final eligibility. Requesting republican notified. No Study tasks were completed as a result of this initial review. Bubba Asher RN Evelyn Mccabe was reviewed for potential clinical trial enrollment on [facility] #[id number] by the [employer] group on 06/28/24. Per initial review, patient has disease type OVARIAN CANCER and appears to be preliminarily eligible and further testing/procedures required to determine final eligibility. Requesting republican notified. No Study tasks were completed as a result of this initial review. Bubba Asher RN Evelyn Mccabe was reviewed for potential clinical trial enrollment on [facility] #[id number] by the [employer] group on 06/28/24. Per initial review, patient has disease type OVARIAN CANCER and appears to be preliminarily eligible and further testing/procedures required to determine final eligibility. Requesting republican notified. No Study tasks were completed as a result of this initial review. Bubba Asher RN documented in this encounter [facility] 06-28-2024 Note [facility] 06-28-2024 Note [facility] 06-28-2024 Note [facility] 06-28-2024 Note [facility] 06-28-2024 Note [facility] 06-28-2024 Note [facility] 06-28-2024 Note [facility] 06-28-2024 Note [facility] 06-28-2024 Note [facility] 06-28-2024 Note [facility] 06-28-2024 Miscellaneous Notes IR Physician Underwriter reached out to this PSS via [employer] Secure Chat. Vee is now scheduled for QWK Paracentesis at [place] on Wednesdays. Lilliana Choi Left voicemail for repair specialistNithya, at [phone] to contact patient to schedule and to call our nurse line if there were questions. Lilliana Choi Patient called stating she has not heard from anyone regarding scheduling. I do not see an epic chat. Please advise. I called and spoke to interventional radiology at [facility] they stated they did not have an out patient opening until next week 07/05/24 but she would speak with the schedulers and see if they could do her sooner or get here in somewhere else soon. I spoke to Evelyn and let her know this information and that they will be calling her directly to scheduled and she stated understanding. Ashely Patel Pss documented in this encounter [facility] 06-28-2024 Telephone encounter Note IR Physician Underwriter reached out to this PSS via [employer] Chat. Vee is now scheduled for QWK Paracentesis at [place] on Wednesdays. Lilliana Choi [facility] 06-28-2024 Telephone encounter Note Left voicemail for repair specialist, Nithya, at [phone] to contact patient to schedule and to call our nurse line if there were questions. Lilliana Choi [facility] 06-28-2024 Telephone encounter Note Patient called stating she has not heard from anyone regarding scheduling. I do not see an epic chat. Please advise. [facility] Work Phone: 06-27-2024 Surgery Surgical operation note BRIEF OP NOTE LOG ID: [id number] Surgery/Procedure Date: 06/27/2024 Incision/Procedure Start Time: 9:01 AM Incision Close/Procedure End Time: 9:13 AM Surgeon(s)/Proceduralist(s) and Palliative Care Nurse Practitioner(s): WYATT JENKINS PA-C Procedure(s): paracentesis Anesthesia: local 5 ml lidocaine Findings: RLQ 2600 ml dark chloe fluid Estimated Blood Loss: <3 ml Specimens: Yes Complications: none Pre-Op/Pre-Procedure Diagnosis: ascites Post-Op/Post-Procedure Diagnosis: same SIGNATURE: WYATT JENKINS PA-C PATIENT NAME: vEelyn Mccabe DATE: June 27, 2024 TIME: 9:20 AM PAGER/CONTACT #: [facility] Work Phone: 06-27-2024 Surgical operatio n note BRIEF OP NOTE LOG ID: [id number] Surgery/Procedure Date: 06/27/2024 Incision/Procedure Start Time: 9:01 AM Incision Close/Procedure End Time: 9:13 AM Surgeon(s)/Proceduralist(s) and Palliative Care Nurse Practitioner(s): WYATT JENKINS PA-C Procedure(s): paracentesis Anesthesia: local 5 ml lidocaine Findings: RLQ 2600 ml dark chloe fluid Estimated Blood Loss: <3 ml Specimens: Yes Complications: none Pre-Op/Pre-Procedure Diagnosis: ascites Post-Op/Post-Procedure Diagnosis: same SIGNATURE: WYATT JENKINS PA-C PATIENT NAME: Evelyn Mccabe DATE: June 27, 2024 TIME: 9:20 AM PAGER/CONTACT #: documented in this encounter [facility] 06-26-2024 Telephone encounter Note [facility] Care Coordination FOLLOW-UP NOTE Patient identified by name and date of . YES Spoke to patient Summary: (Reason for follow-up) Review medication changes Concerns: (New Barriers to care) Discussed dexamethasone, olanzapine, switching from Zofran to compazine, and taking stool softeners and/or prunes/stewed prunes for constipation. Patient wrote down medication instructions and verbally repeated the instructions. Patient instructed to call if she still has issues with nausea next week, despite the additional medications. Care Coordination Plan: Will follow-up as needed. Chloe Zambrano RN June 26, 2024 [facility] 06-26-2024 Miscellaneous Notes [facility] Care Coordination FOLLOW-UP NOTE Patient identified by name and date of . YES Spoke to patient Summary: (Reason for follow-up) Review medication changes Concerns: (New Barriers to care) Discussed dexamethasone, olanzapine, switching from Zofran to compazine, and taking stool softeners and/or prunes/stewed prunes for constipation. Patient wrote down medication instructions and verbally repeated the instructions. Patient instructed to call if she still has issues with nausea next week, despite the additional medications. Care Coordination Plan: Will follow-up as needed. Chloe Zambrano RN June 26, 2024 Called patient to discuss the medication updates that were made today at her OV. No answer. Left a VM requesting a call back from patient. Chloe Zambrano RN documented in this encounter [facility] 06-26-2024 Telephone encounter Note Called patient to discuss the medication updates that were made today at her OV. No answer. Left a VM requesting a call back from patient. Chloe Zambrano RN [facility] 06-26-2024 Telephone encounter Note I called and spoke to interventional radiology at [facility] they stated they did not have an out patient opening until next week 07/05/24 but she would speak with the schedulers and see if they could do her sooner or get here in somewhere else soon. I spoke to Evelyn and let her know this information and that they will be calling her directly to scheduled and she stated understanding. 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 2) Remote DVT-- associated. HPI: The patient is a 58-year-old female with a past medical history significant for smoking (quit 06/2022), CAD (08/2021 following mildly symptomatic Covid, developed chest pain first day back to work--IA; PCI x1 stent--ASA and Brilinta (stopped Brilinta after a week due to nausea and diarrhea--took Plavix for a year), remote DVT (first in 1984) and ovarian cancer. Developed change in bowel habits spring 2021. Then developed abdominal pain summer 2021. Admitted [facility] via ED 06/20/2022. Per admitting hospitalist then onset 04/2022 ongoing persistent dull aching with occasional sharp stabbing periumbical abdominal pain, rated 2-5/10 in severity with nausea without emesis and night sweats with no diarrhea and normal once daily in AM bowel movements with PCP evaluation with outpatient US which was reportedly normal with ED evaluation 06/13/[address] A/P w/ reported gastritis and ascites and normal labs with discharge to home with follow-up PCP directed 06/17/22 MRI with moderate volume ascites with two thin walled well defined fluid collections without enhancement (1.2 x 0.8, 3.6 x 2.7 cm) in the LLQ with referral made to GI Dr. Rajput who now re-presents to the [facility] ED on 06/20/22 history of ongoing constant abdominal pain in the similar region but worsened, rated pain for the last 1-2 weeks -07/25 in severity with ~9 lb weight loss with decreased oral intake and ongoing night sweats. US 06/22/2022 at [facility]: MPRESSION: 1. Normal-size anteverted uterus with a hyperechoic 3 mm thick endometrium. 2. No evidence of uterine cyst or solid mass lesions. 3. Normal cervix. 4. Mildly lobulated right ovary measuring 3.5 cm to 2.7 x 2.4 cm without distinct cystic or solid lesions. 5. Left ovary is not visualized. 6. Large amount of fluid or ascites in the cul-de-sac. 7. No evidence of adnexal masses or peritoneal implants. Referred to Dr. Hyatt. Underwent laparoscopy with findings of diffuse carcinomatosis and biopsy at [facility] 06/28/2022. Pathology: PERITONEUM, BIOPSIES - HIGH-GRADE ADENOCARCINOMA. SEE COMMENT. 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 These malignant cells stain positive with CK7, PAX 8, patchy positivity with calretinin and weak focal ER positivity, and negative for CK20, GATA3 and WT1. A p53 demonstrates a null phenotype. 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 SNVs/Indels - TP53 splice site c.782+1G>A Immuno-Oncology Biomarkers - PD-L1 LDT: Not Detected Interpretation: -TP53 (tumor protein P53) encodes a tumor suppressor protein that responds to cellular stresses, including gDNA damage and oncogenic activation, by inducing and modulating downstream anti-tumor responses such as DNA repair, recombination, and apoptosis. Currently, there are no approved therapies that directly target oncogenic alterations in TP53. However, experimental therapies that target and re-activate the transcriptional activity of mutant TP53 have been described and are currently under investigation. Early clinical trials data suggest oncogenic TP53 mutations may predict resistance to cisplatin chemotherapy, MDM2 inhibitors, and CDK4/CDK6 inhibitors. - No pathogenic mutations are present in any of the common homologous recombination repair genes on this panel. Variants of unknown clinical significance are detected in the following genes: ATR and BARD1 (Please see the Variants of Unknown Clinical Significance section, below). As the functional consequences of these variants are undetermined, the clinical utility of PARP inhibitor therapy in this case is uncertain Started on neoadjuvant chemotherapy with carboplatin and paclitaxel. She received 4 cycles prior to undergoing interval debulking surgery on 09/28/2022. Notes indicate had complete gross tumor debulking. Pathology: A. Soft tissue, anterior peritoneum, excision: - Fibroadipose tissue with focal dense fibrosis and rare infiltrating high-grade carcinoma. B. Omentum, excision: - Residual invasive high-grade adenocarcinoma and therapy-related changes present. Comment: The majority of tumor in all the specimens (A - E) has the appearance of high-grade serous carcinoma. Focal areas of tumor in parts B and D show clear cells features. However, by immunohistochemistry, these cells are negative for napsin-A, making clear cell carcinoma less likely. WT-1 is also negative. C. Uterus, cervix, bilateral fallopian tubes and ovaries, hysterectomy with bilateral salpingo-oophorectomy: - Residual high-grade carcinoma involving bilateral ovaries and fallopian tubes. - Uterus with inactive endometrium, and unremarkable myometrium and cervix. D. Small bowel nodule, excision: - High-grade carcinoma and therapy-related changes including fibrinous necrosis. E. Appendix, appendectomy: - Rare infiltrating carcinoma involving the mesoappendix. - Unremarkable tubular appendix. Completed 2 additional cycles carbo/paclitaxel November 2021. He is here today to discuss maintenance therapy. Patient's CA125 level is 28.2 U/mL.Ran at [facility]. Per Dr. Naranjo's note: Plan: Counseled the patient and her daughter today as far as treatment options. This would include going on a PARP inhibitor, Avastin or observation only. We discussed the fact that she is HRD and BRCA negative. We discussed that there was still an advantage to going on a PARP inhibitor. I did career technical counselor the patient as to the most common side effects of PARP inhibitors. We also discussed some of the more common signs and symptoms of recurrent cancer. The patient would like to start Zejula, will start at the medium dose, will watch CBC weekly for 1 month and then monthly thereafter. Discussed staying on the Zejula until evidence of disease progression or toxicity. ----- Started Zejula 12/20/2022 but developed diarrhea, fatigue, chest pain with palpitations that woke her by 12/22/2022. Saw cardiology 12/23 and was told EKG okay and could retry Zejula. Started on 12/26. 12/28 had blurry vision and couldn't see to drive. Decreased dose to 200 mg daily. 12/30 got palpitations again. Stopped altogether 01/02/2023. Went to [facility] in [place] where evidently CT scan 01/16/23 showed lesions in left lung, liver, and pelvis; it was not known whether these were new as she had no previous scans to compare. PET scan recommended. PET 02/06/2023: IMPRESSION: 1. NECK: * Asymmetric hypermetabolism along the right palatine tonsil, indeterminate. Recommend correlation with direct inspection. * Otherwise no FDG avid neoplastic process. 2. CHEST: * No FDG avid neoplastic process. * 9 mm left upper lobe groundglass/semisolid nodule is not FDG avid and likely represents a primary lung neoplasm along the adenocarcinoma spectrum. 3. ABDOMEN/PELVIS: * No FDG avid neoplastic process. 4. EXTREMITIES/SKELETON: * No suspicious FDG avid osseous lesion. RESULT: Pack Changer (topogram) images: No additional findings. - Mediastinum blood pool activity: Max SUV: 1.8 - Background liver activity: Max SUV: 2.4 HEAD AND NECK: Focal hypermetabolism along the right palatine tonsil (Max SUV 7.6) with associated soft tissue fullness. Physiologic uptake seen in the visualized brain, extraocular muscles, parapharyngeal soft tissues, base of tongue, vocal cords, and salivary glands. No FDG avid cervical lymphadenopathy or mass. No FDG avid thyroid lesion. CHEST: Right chest port terminates in the right atrium. Physiologic uptake in the heart and mediastinum. Lungs and tracheobronchial tree: -0.9 cm left apicoposterior groundglass/semisolid nodule without associated hypermetabolism (Max SUV 0.6). -Additional scattered smaller pulmonary nodules, for example a 4 mm nodule within the posterior right upper lobe, below the resolution of PET. -No hypermetabolic pulmonary lesions. -Emphysema. Note that PET/CT is not sensitive for pulmonary nodules less than 8 mm. Pleura: No FDG avid pleural effusion or pleural mass. Mediastinum and Lymph nodes: 0.9 cm right prevascular node with low level hypermetabolism (Max SUV 2.6), likely reactive. Heart and great vessels: Physiologic uptake in the heart. Chest wall and axilla: No FDG avid axillary lymphadenopathy. ABDOMEN AND PELVIS: Physiologic uptake seen in the and GI tracts. Liver: No FDG avid lesion. Low-attenuation lesion centered between the posterior aspect of the left hepatic lobe and the body of the pancreas, without associated hypermetabolism. Biliary: Gallbladder is unremarkable. Spleen: No FDG avid lesion. No splenomegaly. Pancreas: No FDG avid lesion. Adrenals: No FDG avid lesion. Kidneys: No stones, hydronephrosis, or FDG avid lesions. GI tract: No dilation or focal suspicious FDG avid lesion. Lymph nodes: No FDG avid abdominal or pelvic lymphadenopathy. Left external iliac/obturator node measures 0.7 cm and has expected low level hypermetabolism (Max SUV 1.8). Mesentery/Peritoneum: No ascites or FDG avid mass. Vasculature: Vascular patency cannot be assessed due to lack of IV contrast. Atherosclerotic calcifications of the abdominal aorta and iliac vessels without aneurysm. Pelvis: Hysterectomy. No ascites, focal fluid collection, or hypermetabolic lesion. Abdominopelvic wall: Postsurgical changes along the ventral pelvic wall with expected low level hypermetabolism. BONES AND EXTREMITIES: No suspicious FDG avid osseous lesion. The imaged portions of the skeleton demonstrates age-related degenerative changes. No destructive osseous lesions. Previous therapy: 1) Carboplatin and paclitaxel x4 cycles. 2) Interval debulking surgery 09/28/2022 3) Carboplatin and paclitaxel x2 cycles. Completed 11/2022. 4) Zejula. Did not tolerate due to side effects (see above). Post op had abdominal pain (incisional pain?) and saw palliative care and was prescribed gabapentin which helped significantly. Now has mild ghost pain on occasion and continues gabapentin to help her sleep--Tried stopping and significant flare of anxiety. Has had buproprion, Vistaril and Effexor from PCP in the past. Tried 0.5 mg lorazepam for PET and it made her very sedate. Quit smoking at time of ovarian cancer diagnosis. Has episodic dyspnea---can happen at rest or with exertion but never consistently. However she noticed a gradual worsening of BORJAS. No further palpitations. No exertional chest pain/pressure. Saw Dr. Scruggs, shovel oiler at [facility]: The preferred approach would be transthoracic needle aspiration under CT scan guidance. Since she has no blebs within 3 cm of the lesion, I believe her risk of procedure would be between 5 and 15% chance of pneumothorax. If the lesion is a lung primary, there is no outcome difference between the biopsy now and waiting 3 months to watch behavior, biopsying it if it enlarges in 3 months. If it is an ovarian metastasis, the best approach would be to biopsy the PET positive tonsillar enlargement, treat that, and observe the behavior of the lung lesion. If it is an ovarian metastasis and responds to treatment, and recedes on her next CAT scan, we will have avoided a biopsy. -I therefore recommend that her tonsil lesion be biopsied by ENT (first visit with Dr. Gregory tomorrow), and take a watchful waiting approach regarding the left upper lobe lesion for now, to readdress it in 3 months. Both of these options were discussed with the patient, she was given the option to biopsy now, and we agreed that it may be more prudent and would not change the outcome of a small lung lesion to wait for 3 months on the lung lesion biopsy. -Meanwhile we will evaluate her COPD, she has excellent functional status, and we will add bronchodilators if necessary. Underwent b/l tonsillectomy. No malignancy. 5) Gemcitabine/carboplatin/bevacizu mab. Cycle #1 began 05/12/2023. Was seen in the ED on 05/08 for worsening shortness of breath. Found to have increasing right pleural effusion. She underwent thoracentesis in which 80 cc of cloudy chloe fluid was removed. 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 6) Doxil and bevacizumab 7) Pemetrexed. 8) Abraxane. Current therapy: 1) Topotecan. Presents for ongoing oncologic management. Interim history: Went to ED in [place] 05/28 due to right lower chest pain. No paracentesis. Not tolerating topotecan well. Gets n/v and diarrhea that persists up to 6 days. Appetite is great. E PMH, medications and allergies personally reviewed by me today. Any changes documented in appropriate section. Social History Tobacco Use Smoking status: Former Current packs/day: 0.00 Average packs/day: 0.5 packs/day for 40.0 years (20.0 ttl pk-yrs) Types: Cigarettes Start date: 06/23/1982 Quit date: 06/23/2022 Years since quittin.0 Smokeless tobacco: Never Vaping Use Vaping status: Never Used Substance Use Topics Alcohol use: No Drug use: No Family History Problem Relation Age of Onset Thyroid Mother Hypertension Father Heart Father Thyroid Sister Half-sister other (CHF) Sister Thyroid Sister Half-sister Colon Cancer Sister Thyroid Sister Half-sister Hypertension Brother Cancer Maternal Grandmother OVARIAN Hypertension Maternal Grandfather Cancer Maternal Grandfather LUNG Lung Cancer Paternal Grandmother ROS: Constitutional: Denies episodes of fever and night sweats. Neuro: Denies vertigo, dizziness and imbalance. HEENT: No recent change in voice, vision or hearing. Resp: See HPI. CVS: No exertional chest pain or pressure. No lower extremity swelling or edema. GI: See HPI. : Denies dysuria or gross hematuria. Endo: Denies hot flashes. Denies polyuria and polydipsia. Denies heat and cold intolerance. Musculoskeletal: No bone, back, joint and muscular pain. Derm: Denies rash. Heme: Denies unusual bleeding and unexplained bruising. Psych: Anxiety--improved on Cymbalta. PHYSICAL EXAM: Vitals: Blood pressure 103/71, pulse 80, temperature 36.2 C (97.2 F), temperature source Temporal, weight 53.8 kg (118 lb 8 oz), last menstrual period 03/23/2012, SpO2 100%. Well-appearing and in no acute distress. EYES: Sclerae are anicteric bilaterally. LYMPHATIC: There is no axillary adenopathy. RESPIRATORY: Inspiratory vesicular breath sounds are of diminished intensity in all cruz. Diminished right base anteriorly--stable. CARDIOVASCULAR: Rhythm is regular. ABDOMEN: The abdomen is slightly distended. Tender in the upper abdomen. Mild bulging of the flanks. No hyperactive bowel sounds appreciated. Extremities: No swelling or edema. SKIN: No jaundice. LABS: Latest Ref [facility] 05/09/2024 WBC 3.70 - 11.00 k/uL 5.10 RBC 3.90 - 5.20 m/uL 4.04 Hemoglobin 11.5 - 15.5 g/dL 11.0 (L) Hematocrit 36.0 - 46.0 % 34.0 (L) MCV 80.0 - 100.0 fL 84.2 MCH 26.0 - 34.0 pg 27.2 MCHC 30.5 - 36.0 g/dL 32.4 RDW-CV 11.5 - 15.0 % 17.2 (H) Platelet Count 150 - 400 k/uL 318 MPV 9.0 - 12.7 fL 9.3 Neut% % 50.9 Abs Neut (ANC) 1.45 - 7.50 k/uL 2.60 Lymph% % 34.9 Abs Lymph 1.00 - 4.00 k/uL 1.78 Clay% % 11.0 Abs Clay <0.87 k/uL 0.56 Eosin% % 2.0 Abs Eosin <0.46 k/uL 0.10 Baso% % 0.8 Abs Baso <0.11 k/uL 0.04 Immature Gran % % 0.4 IMMATURE GRANS (ABS) <0.10 k/uL <0.03 NRBC /100 WBC 0.0 Absolute nRBC <0.01 k/uL <0.01 DTYPE Auto Protein, Total 6.3 - 8.0 g/dL 6.6 Albumin 3.9 - 4.9 g/dL 4.1 Calcium 8.5 - 10.2 mg/dL 9.1 Bilirubin, Total 0.2 - 1.3 mg/dL 0.2 Alkaline Phosphatase 34 - 123 U/L 65 AST 13 - 35 U/L 24 ALT 7 - 38 U/L 24 Glucose 74 - 99 mg/dL 140 (H) BUN 7 - 21 mg/dL 18 Creatinine 0.58 - 0.96 mg/dL 0.78 Sodium 136 - 144 mmol/L 138 Potassium 3.7 - 5.1 mmol/L 4.3 Chloride 98 - 107 mmol/L 103 CO2 22 - 30 mmol/L 26 Anion Gap 8 - 15 mmol/L 9 eGFR >=60 mL/min/1.73m 88 Magnesium 1.7 - 2.3 mg/dL 1.8 PFTs at [facility] 02/17/2023: Forced expiration spirometry demonstrates the presence of a mild large airways obstructive ventilatory defect. There was no significant response to aerosolized bronchodilators. Spirograms are of fair quality and plateau normally. Body plethysmography was performed and revealed lung volumes to be within normal limits. Diffusing capacity by single breath CO was likewise within normal limits. IMPRESSION: Irreversible mild large airways obstructive ventilatory impairment with preserved lung volumes and diffusing capacity. 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 -Genetic testing performed through [facility]: Negative for BRCA1/2 and 24 other relevant genes. -Caris negative for FOLR1. -She is tolerating Abraxane overall well with no serious or unexpected toxicity. -Personally reviewed CT scan imaging of chest, abdomen pelvis. Chest not read. Improved axillary adenopathy when compared to November. However worsening ascites in the abdomen. -No symptoms of SBO or partial SBO at this time. -She has symptoms related to recurrent ascites. -Tolerating topotecan well with the exception of nausea, vomiting and diarrhea. -Encouraging that there has been resolution of the left axillary adenopathy. Plan: -Okay to start cycle #2 of topotecan this Monday. Dose reduce 25%. -Schedule weekly ultrasound guided paracentesis at [place]. -Add fosaprepitant. -Rx olanzapine and dexamethasone. -Take Zofran on a scheduled basis for several days after each treatment. -CBC on days 8 and 15. -Office visit with CBC, CMP and CA125 for cycle #3. -We will look into screening for NCT at [facility]. 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 -Stable. Plan: -Continue Cymbalta. (F41.1, C80.1) Anxiety associated with cancer diagnosis (HCC) Assessment: -Cymbalta helped significantly. Plan: -Continue Cymbalta. (O22.30) DVT (deep vein thrombosis) in Assessment: -She had a remote provoked DVT during first in 1984. -Nonetheless she is at increased risk of recurrent VTE given underlying cancer diagnosis. -No clear indication for prophylactic anticoagulation. Discussed monitoring for symptoms. Plan: -Monitor. 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 Plan: -Monitor. Portions of this documentation were copied and pasted from previous office visit notes in order to provide a cohesive continuity of the history. The note has been reviewed and edited and updated as necessary. I spent a total of 30 minutes on the date of the service which included preparing to see the patient, [id number] patient care, completing clinical documentation, obtaining and/or reviewing separately obtained history, performing a medically appropriate examination, counseling and educating the patient/family/caregiver, ordering medications, tests, or procedures, communicating with other HCPs (not separately reported), and communicating results to the patient/family/caregiver. Bk Lenz DO documented in this encounter [facility] 06-26-2024 Note [facility] 06-26-2024 History of Presen t illness Narrative Patient is here for IVAD port flush/blood draw per [facility] protocol. IVAD is located in right upper chest. Site cleansed with Chloraprep IVAD accessed with a #20 gauge 3/4 non-coring Gripper needle Flush with 5cc's Normal Saline. Blood Return: Good. 10 cc's blood aspirated and discarded. Blood drawn for CBC, CMP, and Ca-125. Flushed with: 20 ml Normal Saline. Non-coring needle removed. Paper tape applied to puncture site. Site negative for redness, edema or tenderness. Patient tolerated procedure well. documented in this encounter [facility] 06-14-2024 Telephone encounter Note Care Coordination Triage Note [facility] Situation: Patient reports Bowel symptoms and Nausea/Vomiting Background: Ovarian, topotecan Assessment: Not very good . She left the office around 11 am, by 12 I was sick . Had 2 BM's during the night, nauseous this morning, 1 episode of emesis. Patient took Zofran, I feel a little better than I did this morning . It feels like almost like I have the flu and I'm run down and don't feel well . Patient stated she is starting to feel a little better, I just feel really weak and wore out . Diarrhea symptoms: When did you start having loose stools? Monday 1 BM, last night 2 episodes How many loose stools have you had in the last 24 hours? 2 Is there any solid component to the stool? Yes In the last 24 hours, have you taken anything for your diarrhea? no Any fever, bloating, nausea, vomiting or cramping? Denies fever, chills, or cramping. Has nausea, 1 episode of emesis, maybe a little bit of bloating. Any blood in the stool? no Are you eating and drinking normally? No, not now . Patient [place] lunch [place] the barn, had a small bowl of hooper soup, 1/2 through I had to stop eating . Had water and cran-apple juice the rest of the day. Today, she has only had water. Are you taking any new medications, especially antibiotics or supplements? no Was not able to submit a stool sample yesterday. Patient is on her way to [place]. Recommendations: Per RNCC, patient directed to: Manage at home. Instructions provided. Continue zofran every 8 hours, BRAT diet, avoid dairy, imodium PRN, and push fluids. Call with worsening symptoms. Chloe Zambrano RN June 14, 2024 10:11 AM [facility] 06-14-2024 Miscellaneous Notes Care Coordination Triage Note [facility] Situation: Patient reports Bowel symptoms and Nausea/Vomiting Background: Ovarian, topotecan Assessment: Not very good . She left the office around 11 am, by 12 I was sick . Had 2 BM's during the night, nauseous this morning, 1 episode of emesis. Patient took Zofran, I feel a little better than I did this morning . It feels like almost like I have the flu and I'm run down and don't feel well . Patient stated she is starting to feel a little better, I just feel really weak and wore out . Diarrhea symptoms: When did you start having loose stools? Monday 1 BM, last night 2 episodes How many loose stools have you had in the last 24 hours? 2 Is there any solid component to the stool? Yes In the last 24 hours, have you taken anything for your diarrhea? no Any fever, bloating, nausea, vomiting or cramping? Denies fever, chills, or cramping. Has nausea, 1 episode of emesis, maybe a little bit of bloating. Any blood in the stool? no Are you eating and drinking normally? No, not now . Patient had lunch at the barn, had a small bowl of hooper soup, 1/2 through I had to stop eating . Had water and cran-apple juice the rest of the day. Today, she has only had water. Are you taking any new medications, especially antibiotics or supplements? no Was not able to submit a stool sample yesterday. Patient is on her way to [place]. Recommendations: Per RNCC, patient directed to: Manage at home. Instructions provided. Continue zofran every 8 hours, BRAT diet, avoid dairy, imodium PRN, and push fluids. Call with worsening symptoms. Chloe Zambrano RN June 14, 2024 10:11 AM documented in this encounter [facility] 06-13-2024 Telephone encounter Note Message relayed to patient [facility] Work Phone: 06-13-2024 Miscellaneous Notes Message relayed to patient Left message for patient to return call. When she calls, please advise of schedule for the week of 06/24 and advise that we couldn't do treatment on that week (already over booked) and that we will get her back ojn starting the following week. Lilliana Choi documented in this encounter [facility] 06-13-2024 Telephone encounter Note Left message for patient to return call. When she calls, please advise of schedule for the week of 06/24 and advise that we couldn't do treatment on that week (already over booked) and that we will get her back ojn starting the following week. Lilliana Choi [facility] 06-13-2024 Note [facility] 06-13-2024 History of Presen t illness Narrative Pt c/o increased episodes of n/v and diarrhea. Pt utilized PRN medications with minimal success. Dr. Lenz aware. Orders placed for stool specimen. Pt unable to go at this time. Hydration added on as well. Chloe Zambrano RN to call pt tomorrow to follow up. Pt verbalized understanding. Jaye Fox RN documented in this encounter [facility] 06-10-2024 Telephone encounter Note Detailed message left stating Dr. Lenz is agreeable to discussed plan and will follow-up on hip pain at her next OV. Chloe Zambrano RN [facility] 06-10-2024 Miscellaneous Notes Detailed message left stating Dr. Lenz is agreeable to discussed plan and will follow-up on hip pain at her next OV. Chloe Zambrano RN TOXICITY CHECK SYMPTOM ASSESSMENT The patient is on topotecan Headache: No Visual Changes: No Dizziness: No Do you have any periods of confusion? No Mood changes: No Mouth or throat pain: No Appetite: appetite was poor Nausea: Yes started Monday evening and lasted until Monday night. Didn't take Zofran. Patient was advised to start Zofran at the onset of nausea and take around the clock for a day if needed to see if this helps alleviate N/V after her next treatment. Patient was also informed that she can take Pepcid for heartburn symptoms. Patient stated understanding. Vomiting: Yes - 1 episode- felt better gradually after emesis episode Heartburn: Yes: didn't take anything for heartburn Weight gain/loss: No Episodes of palpitations/chest discomfort/pressure/pain No Shortness of breath: No Cough: here and there minimal, sometimes if I take a deep deep breath it hurts in my chest , that's been going on for a few weeks, denies changes. Diarrhea: no Constipation: no Bladder/Urinary Changes: None Pain: Yes, pain rated 6-7 on a scale of 0-10 (0=none, 10=worst). Location: lower left side lower by the hip bone above the the hip bone in my abdomen Character: stabbing and shooting like a nerve pain Duration: 1 months. Frequency: occurs intermittently. Sometimes will happen every 4-5 days. Denies aggravating or alleviating factors. Patient stated the pain has not bothered her enough to mention it at her OV's with Dr. Lenz however if the pain becomes more constant or occurs more frequently she will discuss the pain with him. Fever: No Chills: No Cold sensitivity: No Numbness/weakness: No Edema: leg/ankles are normal today. Skin changes: No Itching: No Yellowing of skin or eyes: No Musculoskeletal/joint changes/issues No Bleeding issues: No Activity Level: great today Does the patient need interventions or same day appointment:No Reinforced CURRENT treatment education based on current and anticipated symptoms. Discussed port/line care and patient verbalizes understanding: Yes Patient instructed to contact office or after hours Hematology/Oncology fellow for: temperature ? 100.4; questions or concerns. Patient verbalized understanding of when to seek medical attention and after hours number protocol. Chloe Zambrano RN Patient called to speak with Chloe to update some things that happened this weekend. CC line rang busy. Call patient when able. CYCLE 1/DAY 1 POST TREATMENT CALL Today's date: June 07, 2024 Treatment Regimen: Topotecan C1D1 Date: 06/06/24 Called patient to follow-up on symptom management. Spoke with patient, reports lower extremity edema. SYMPTOM ASSESSMENT Neuro: None CV/Resp: None GI/: Nausea mild Integument: None Activity: Patient reported no changes in energy level, energy level fair Pain: No=0 (pain 0 on a scale of 0-10). Fever: No Chills: No When did you first notice the edema or swelling? Has had swelling for awhile, patient stated Dr. Lenz has been aware. Where is the swelling located? L>R, up to the knee and down to the toes , significantly worse today and is now in the right side where before it was localized to the left side. . Patient has been having some intermittent swelling around the left ankle on and off , which would improve in the morning after laying in bed all night and get worse throughout the day. Today the swelling is in both sides. Patient is still able to wear her normal shoes but they are very tight. Patient does not have the ability to weigh herself at home. Do you have any pain, tenderness, fever, redness, warmth associated with the swelling? Denies pain/tenderness, fever, chills, redness, or the skin being warm to touch. Any shortness of breath? A little bit that's been going on Have you had any recent injury or trauma to the affected area? no Any recent surgery or travel? No H/o DVT in left groin, 39 yrs ago . Denies having any ultrasounds of her lower extremities completed recently. Advised elevating her feet, monitoring for bruising/redness, pain, or the skin being warm to touch. Call with any worsening symptoms. Spoke to Dr. Lenz who agreed. Patient informed. She will call our office with an update on Monday. Any new referrals needed? No Reinforced CURRENT treatment education based on current and anticipated symptoms. Discussed port/line care and patient verbalizes understanding: Yes Patient instructed to contact office or after hours Hematology/Oncology fellow for: temperature ? 100.4; questions or concerns. Patient verbalized understanding of when to seek medical attention and after hours number protocol. Chloe Zambrano RN documented in this encounter [facility] 06-10-2024 Telephone encounter Note TOXICITY CHECK SYMPTOM ASSESSMENT The patient is on topotecan Headache: No Visual Changes: No Dizziness: No Do you have any periods of confusion? No Mood changes: No Mouth or throat pain: No Appetite: appetite was poor Nausea: Yes started Monday evening and lasted until Monday night. Didn't take Zofran. Patient was advised to start Zofran at the onset of nausea and take around the clock for a day if needed to see if this helps alleviate N/V after her next treatment. Patient was also informed that she can take Pepcid for heartburn symptoms. Patient stated understanding. Vomiting: Yes - 1 episode- felt better gradually after emesis episode Heartburn: Yes: didn't take anything for heartburn Weight gain/loss: No Episodes of palpitations/chest discomfort/pressure/pain No Shortness of breath: No Cough: here and there minimal, sometimes if I take a deep deep breath it hurts in my chest , that's been going on for a few weeks, denies changes. Diarrhea: no Constipation: no Bladder/Urinary Changes: None Pain: Yes, pain rated 6-7 on a scale of 0-10 (0=none, 10=worst). Location: lower left side lower by the hip bone above the the hip bone in my abdomen Character: stabbing and shooting like a nerve pain Duration: 1 months. Frequency: occurs intermittently. Sometimes will happen every 4-5 days. Denies aggravating or alleviating factors. Patient stated the pain has not bothered her enough to mention it at her OV's with Dr. Lenz however if the pain becomes more constant or occurs more frequently she will discuss the pain with him. Fever: No Chills: No Cold sensitivity: No Numbness/weakness: No Edema: leg/ankles are normal today. Skin changes: No Itching: No Yellowing of skin or eyes: No Musculoskeletal/joint changes/issues No Bleeding issues: No Activity Level: great today Does the patient need interventions or same day appointment:No Reinforced CURRENT treatment education based on current and anticipated symptoms. Discussed port/line care and patient verbalizes understanding: Yes Patient instructed to contact office or after hours Hematology/Oncology fellow for: temperature ? 100.4; questions or concerns. Patient verbalized understanding of when to seek medical attention and after hours number protocol. Chloe Zambrano RN [facility] 06-10-2024 Telephone encounter Note Patient called to speak with Chloe to update some things that happened this weekend. CC line rang busy. Call patient when able. [facility] Work Phone: 06-07-2024 Telephone encounter Note CYCLE 1/DAY 1 POST TREATMENT CALL Today's date: June 07, 2024 Treatment Regimen: Topotecan C1D1 Date: 06/06/24 Called patient to follow-up on symptom management. Spoke with patient, reports lower extremity edema. SYMPTOM ASSESSMENT Neuro: None CV/Resp: None GI/: Nausea mild Integument: None Activity: Patient reported no changes in energy level, energy level fair Pain: No=0 (pain 0 on a scale of 0-10). Fever: No Chills: No When did you first notice the edema or swelling? Has had swelling for awhile, patient stated Dr. Lenz has been aware. Where is the swelling located? L>R, up to the knee and down to the toes , significantly worse today and is now in the right side where before it was localized to the left side. . Patient has been having some intermittent swelling around the left ankle on and off , which would improve in the morning after laying in bed all night and get worse throughout the day. Today the swelling is in both sides. Patient is still able to wear her normal shoes but they are very tight. Patient does not have the ability to weigh herself at home. Do you have any pain, tenderness, fever, redness, warmth associated with the swelling? Denies pain/tenderness, fever, chills, redness, or the skin being warm to touch. Any shortness of breath? A little bit that's been going on Have you had any recent injury or trauma to the affected area? no Any recent surgery or travel? No H/o DVT in left groin, 39 yrs ago . Denies having any ultrasounds of her lower extremities completed recently. Advised elevating her feet, monitoring for bruising/redness, pain, or the skin being warm to touch. Call with any worsening symptoms. Spoke to Dr. Lenz who agreed. Patient informed. She will call our office with an update on Monday. Any new referrals needed? No Reinforced CURRENT treatment education based on current and anticipated symptoms. Discussed port/line care and patient verbalizes understanding: Yes Patient instructed to contact office or after hours Hematology/Oncology fellow for: temperature ? 100.4; questions or concerns. Patient verbalized understanding of when to seek medical attention and after hours number protocol. 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 2) Remote DVT-- associated. HPI: The patient is a 58-year-old female with a past medical history significant for smoking (quit 06/2022), CAD (08/2021 following mildly symptomatic Covid, developed chest pain first day back to work--[place]; PCI x1 stent--ASA and Brilinta (stopped Brilinta after a week due to nausea and diarrhea--took Plavix for a year), remote DVT (first in 1984) and ovarian cancer. Developed change in bowel habits spring 2021. Then developed abdominal pain summer 2021. Admitted [facility] via ED 06/20/2022. Per admitting hospitalist then onset 04/2022 ongoing persistent dull aching with occasional sharp stabbing periumbical abdominal pain, rated 2-5/10 in severity with nausea without emesis and night sweats with no diarrhea and normal once daily in AM bowel movements with PCP evaluation with outpatient US which was reportedly normal with ED evaluation 06/13/[address] A/P w/ reported gastritis and ascites and normal labs with discharge to home with follow-up PCP directed 06/17/22 MRI with moderate volume ascites with two thin walled well defined fluid collections without enhancement (1.2 x 0.8, 3.6 x 2.7 cm) in the LLQ with referral made to GI Dr. Rajput who now re-presents to the [facility] ED on 06/20/22 history of ongoing constant abdominal pain in the similar region but worsened, rated pain for the last 1-2 weeks 8-10/10 in severity with ~9 lb weight loss with decreased oral intake and ongoing night sweats. US 06/22/2022 at [facility]: MPRESSION: 1. Normal-size anteverted uterus with a hyperechoic 3 mm thick endometrium. 2. No evidence of uterine cyst or solid mass lesions. 3. Normal cervix. 4. Mildly lobulated right ovary measuring 3.5 cm to 2.7 x 2.4 cm without distinct cystic or solid lesions. 5. Left ovary is not visualized. 6. Large amount of fluid or ascites in the cul-de-sac. 7. No evidence of adnexal masses or peritoneal implants. Referred to Dr. Hyatt. Underwent laparoscopy with findings of diffuse carcinomatosis and biopsy at [facility] 06/28/2022. Pathology: PERITONEUM, BIOPSIES - HIGH-GRADE ADENOCARCINOMA. SEE COMMENT. 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 These malignant cells stain positive with CK7, PAX 8, patchy positivity with calretinin and weak focal ER positivity, and negative for CK20, GATA3 and WT1. A p53 demonstrates a null phenotype. 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 SNVs/Indels - TP53 splice site [id number] Immuno-Oncology Biomarkers - PD-L1 LDT: Not Detected Interpretation: -TP53 (tumor protein P53) encodes a tumor suppressor protein that responds to cellular stresses, including gDNA damage and oncogenic activation, by inducing and modulating downstream anti-tumor responses such as DNA repair, recombination, and apoptosis. Currently, there are no approved therapies that directly target oncogenic alterations in TP53. However, experimental therapies that target and re-activate the transcriptional activity of mutant TP53 have been described and are currently under investigation. Early clinical trials data suggest oncogenic TP53 mutations may predict resistance to cisplatin chemotherapy, MDM2 inhibitors, and CDK4/CDK6 inhibitors. - No pathogenic mutations are present in any of the common homologous recombination repair genes on this panel. Variants of unknown clinical significance are detected in the following genes: ATR and BARD1 (Please see the Variants of Unknown Clinical Significance section, below). As the functional consequences of these variants are undetermined, the clinical utility of PARP inhibitor therapy in this case is uncertain Started on neoadjuvant chemotherapy with carboplatin and paclitaxel. She received 4 cycles prior to undergoing interval debulking surgery on 09/28/2022. Notes indicate had complete gross tumor debulking. Pathology: A. Soft tissue, anterior peritoneum, excision: - Fibroadipose tissue with focal dense fibrosis and rare infiltrating high-grade carcinoma. B. Omentum, excision: - Residual invasive high-grade adenocarcinoma and therapy-related changes present. Comment: The majority of tumor in all the specimens (A - E) has the appearance of high-grade serous carcinoma. Focal areas of tumor in parts B and D show clear cells features. However, by immunohistochemistry, these cells are negative for napsin-A, making clear cell carcinoma less likely. WT-1 is also negative. C. Uterus, cervix, bilateral fallopian tubes and ovaries, hysterectomy with bilateral salpingo-oophorectomy: - Residual high-grade carcinoma involving bilateral ovaries and fallopian tubes. - Uterus with inactive endometrium, and unremarkable myometrium and cervix. D. Small bowel nodule, excision: - High-grade carcinoma and therapy-related changes including fibrinous necrosis. E. Appendix, appendectomy: - Rare infiltrating carcinoma involving the mesoappendix. - Unremarkable tubular appendix. Completed 2 additional cycles carbo/paclitaxel November 2021. He is here today to discuss maintenance therapy. Patient's CA125 level is 28.2 U/mL.Ran at [facility]. Per Dr. Naranjo's note: Plan: Counseled the patient and her daughter today as far as treatment options. This would include going on a PARP inhibitor, Avastin or observation only. We discussed the fact that she is HRD and BRCA negative. We discussed that there was still an advantage to going on a PARP inhibitor. I did career technical counselor the patient as to the most common side effects of PARP inhibitors. We also discussed some of the more common signs and symptoms of recurrent cancer. The patient would like to start Zejula, will start at the medium dose, will watch CBC weekly for 1 month and then monthly thereafter. Discussed staying on the Zejula until evidence of disease progression or toxicity. ----- Started Zejula 12/20/2022 but developed diarrhea, fatigue, chest pain with palpitations that woke her by 12/22/2022. Saw cardiology 12/23 and was told EKG okay and could retry Zejula. Started on 12/26. 12/28 had blurry vision and couldn't see to drive. Decreased dose to 200 mg daily. 12/30 got palpitations again. Stopped altogether 01/02/2023. Went to [facility] in [place] where evidently CT scan 01/16/23 showed lesions in left lung, liver, and pelvis; it was not known whether these were new as she had no previous scans to compare. PET scan recommended. PET 02/06/2023: IMPRESSION: 1. NECK: * Asymmetric hypermetabolism along the right palatine tonsil, indeterminate. Recommend correlation with direct inspection. * Otherwise no FDG avid neoplastic process. 2. CHEST: * No FDG avid neoplastic process. * 9 mm left upper lobe groundglass/semisolid nodule is not FDG avid and likely represents a primary lung neoplasm along the adenocarcinoma spectrum. 3. ABDOMEN/PELVIS: * No FDG avid neoplastic process. 4. EXTREMITIES/SKELETON: * No suspicious FDG avid osseous lesion. RESULT: Pack Changer (topogram) images: No additional findings. - Mediastinum blood pool activity: Max SUV: 1.8 - Background liver activity: Max SUV: 2.4 HEAD AND NECK: Focal hypermetabolism along the right palatine tonsil (Max SUV 7.6) with associated soft tissue fullness. Physiologic uptake seen in the visualized brain, extraocular muscles, parapharyngeal soft tissues, base of tongue, vocal cords, and salivary glands. No FDG avid cervical lymphadenopathy or mass. No FDG avid thyroid lesion. CHEST: Right chest port terminates in the right atrium. Physiologic uptake in the heart and mediastinum. Lungs and tracheobronchial tree: -0.9 cm left apicoposterior groundglass/semisolid nodule without associated hypermetabolism (Max SUV 0.6). -Additional scattered smaller pulmonary nodules, for example a 4 mm nodule within the posterior right upper lobe, below the resolution of PET. -No hypermetabolic pulmonary lesions. -Emphysema. Note that PET/CT is not sensitive for pulmonary nodules less than 8 mm. Pleura: No FDG avid pleural effusion or pleural mass. Mediastinum and Lymph nodes: 0.9 cm right prevascular node with low level hypermetabolism (Max SUV 2.6), likely reactive. Heart and great vessels: Physiologic uptake in the heart. Chest wall and axilla: No FDG avid axillary lymphadenopathy. ABDOMEN AND PELVIS: Physiologic uptake seen in the and GI tracts. Liver: No FDG avid lesion. Low-attenuation lesion centered between the posterior aspect of the left hepatic lobe and the body of the pancreas, without associated hypermetabolism. Biliary: Gallbladder is unremarkable. Spleen: No FDG avid lesion. No splenomegaly. Pancreas: No FDG avid lesion. Adrenals: No FDG avid lesion. Kidneys: No stones, hydronephrosis, or FDG avid lesions. GI tract: No dilation or focal suspicious FDG avid lesion. Lymph nodes: No FDG avid abdominal or pelvic lymphadenopathy. Left external iliac/obturator node measures 0.7 cm and has expected low level hypermetabolism (Max SUV 1.8). Mesentery/Peritoneum: No ascites or FDG avid mass. Vasculature: Vascular patency cannot be assessed due to lack of IV contrast. Atherosclerotic calcifications of the abdominal aorta and iliac vessels without aneurysm. Pelvis: Hysterectomy. No ascites, focal fluid collection, or hypermetabolic lesion. Abdominopelvic wall: Postsurgical changes along the ventral pelvic wall with expected low level hypermetabolism. BONES AND EXTREMITIES: No suspicious FDG avid osseous lesion. The imaged portions of the skeleton demonstrates age-related degenerative changes. No destructive osseous lesions. Previous therapy: 1) Carboplatin and paclitaxel x4 cycles. 2) Interval debulking surgery 09/28/2022 3) Carboplatin and paclitaxel x2 cycles. Completed 11/2022. 4) Zejula. Did not tolerate due to side effects (see above). Post op had abdominal pain (incisional pain?) and saw palliative care and was prescribed gabapentin which helped significantly. Now has mild ghost pain on occasion and continues gabapentin to help her sleep--Tried stopping and significant flare of anxiety. Has had buproprion, Vistaril and Effexor from PCP in the past. Tried 0.5 mg lorazepam for PET and it made her very sedate. Quit smoking at time of ovarian cancer diagnosis. Has episodic dyspnea---can happen at rest or with exertion but never consistently. However she noticed a gradual worsening of BORJAS. No further palpitations. No exertional chest pain/pressure. Saw Dr. Scruggs, shovel oiler at [facility]: The preferred approach would be transthoracic needle aspiration under CT scan guidance. Since she has no blebs within 3 cm of the lesion, I believe her risk of procedure would be between 5 and 15% chance of pneumothorax. If the lesion is a lung primary, there is no outcome difference between the biopsy now and waiting 3 months to watch behavior, biopsying it if it enlarges in 3 months. If it is an ovarian metastasis, the best approach would be to biopsy the PET positive tonsillar enlargement, treat that, and observe the behavior of the lung lesion. If it is an ovarian metastasis and responds to treatment, and recedes on her next CAT scan, we will have avoided a biopsy. -I therefore recommend that her tonsil lesion be biopsied by ENT (first visit with Dr. Gregory tomorrow), and take a watchful waiting approach regarding the left upper lobe lesion for now, to readdress it in 3 months. Both of these options were discussed with the patient, she was given the option to biopsy now, and we agreed that it may be more prudent and would not change the outcome of a small lung lesion to wait for 3 months on the lung lesion biopsy. -Meanwhile we will evaluate her COPD, she has excellent functional status, and we will add bronchodilators if necessary. Underwent b/l tonsillectomy. No malignancy. 5) Gemcitabine/carboplatin/bevacizu mab. Cycle #1 began 05/12/2023. Was seen in the ED on 05/08 for worsening shortness of breath. Found to have increasing right pleural effusion. She underwent thoracentesis in which 80 cc of cloudy chloe fluid was removed. 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 6) Doxil and bevacizumab 7) Pemetrexed. Current therapy: 1) Abraxane. Presents for ongoing oncologic management. Interim history: Recent development of worsening ascites. Underwent paracentesis 1000 cc. Cytology pending. CTs on 05/27. CA125 increased. She feels much better after paracentesis. Able to lie flat and breathe more comfortably. Her appetite is normal. She has had no nausea or vomiting. Bowels have been moving once a day with formed stools. PMH, medications and allergies personally reviewed by me today. Any changes documented in appropriate section. Social History Tobacco Use Smoking status: Former Packs/day: 0.50 Years: 40.00 Additional pack years: 0.00 Total pack years: 20.00 Types: Cigarettes Quit date: 06/23/2022 Years since quittin.9 Smokeless tobacco: Never Vaping Use Vaping Use: Never used Substance Use Topics Alcohol use: No Drug use: No Family History Problem Relation Age of Onset Thyroid Mother Hypertension Father Heart Father Thyroid Sister Half-sister other (CHF) Sister Thyroid Sister Half-sister Colon Cancer Sister Thyroid Sister Half-sister Hypertension Brother Cancer Maternal Grandmother OVARIAN Hypertension Maternal Grandfather Cancer Maternal Grandfather LUNG Lung Cancer Paternal Grandmother ROS: Constitutional: Denies episodes of fever and night sweats. Neuro: Denies vertigo, dizziness and imbalance. HEENT: No recent change in voice, vision or hearing. Resp: See HPI. CVS: No exertional chest pain or pressure. No lower extremity swelling or edema. GI: See HPI. : Denies dysuria or gross hematuria. Endo: Denies hot flashes. Denies polyuria and polydipsia. Denies heat and cold intolerance. Musculoskeletal: No bone, back, joint and muscular pain. Derm: Denies rash. Heme: Denies unusual bleeding and unexplained bruising. Psych: Anxiety--improved on Cymbalta. PHYSICAL EXAM: Vitals: Blood pressure 120/77, pulse 75, temperature 36.3 C (97.4 F), temperature source Temporal, weight 53.3 kg (117 lb 8 oz), last menstrual period 03/23/2012, SpO2 100%. Well-appearing and in no acute distress. EYES: Sclerae are anicteric bilaterally. LYMPHATIC: There is no axillary adenopathy. No longer LN left axilla. Minimal right axillary adenopathy. RESPIRATORY: Inspiratory vesicular breath sounds are of diminished intensity in all cruz. Diminished right base anteriorly--stable. CARDIOVASCULAR: Rhythm is regular. ABDOMEN: The abdomen is slightly distended. Tender in the upper abdomen. Mild bulging of the flanks. Active bowel sounds. Extremities: No swelling or edema. SKIN: No jaundice. LABS: Latest Ref [facility] 05/09/2024 WBC 3.70 - 11.00 k/uL 5.10 RBC 3.90 - 5.20 m/uL 4.04 Hemoglobin 11.5 - 15.5 g/dL 11.0 (L) Hematocrit 36.0 - 46.0 % 34.0 (L) MCV 80.0 - 100.0 fL 84.2 MCH 26.0 - 34.0 pg 27.2 MCHC 30.5 - 36.0 g/dL 32.4 RDW-CV 11.5 - 15.0 % 17.2 (H) Platelet Count 150 - 400 k/uL 318 MPV 9.0 - 12.7 fL 9.3 Neut% % 50.9 Abs Neut (ANC) 1.45 - 7.50 k/uL 2.60 Lymph% % 34.9 Abs Lymph 1.00 - 4.00 k/uL 1.78 Clay% % 11.0 Abs Clay <0.87 k/uL 0.56 Eosin% % 2.0 Abs Eosin <0.46 k/uL 0.10 Baso% % 0.8 Abs Baso <0.11 k/uL 0.04 Immature Gran % % 0.4 IMMATURE GRANS (ABS) <0.10 k/uL <0.03 NRBC /100 WBC 0.0 Absolute nRBC <0.01 k/uL <0.01 DTYPE Auto Protein, Total 6.3 - 8.0 g/dL 6.6 Albumin 3.9 - 4.9 g/dL 4.1 Calcium 8.5 - 10.2 mg/dL 9.1 Bilirubin, Total 0.2 - 1.3 mg/dL 0.2 Alkaline Phosphatase 34 - 123 U/L 65 AST 13 - 35 U/L 24 ALT 7 - 38 U/L 24 Glucose 74 - 99 mg/dL 140 (H) BUN 7 - 21 mg/dL 18 Creatinine 0.58 - 0.96 mg/dL 0.78 Sodium 136 - 144 mmol/L 138 Potassium 3.7 - 5.1 mmol/L 4.3 Chloride 98 - 107 mmol/L 103 CO2 22 - 30 mmol/L 26 Anion Gap 8 - 15 mmol/L 9 eGFR >=60 mL/min/1.73m 88 Magnesium 1.7 - 2.3 mg/dL 1.8 PFTs at [facility] 02/17/2023: Forced expiration spirometry demonstrates the presence of a mild large airways obstructive ventilatory defect. There was no significant response to aerosolized bronchodilators. Spirograms are of fair quality and plateau normally. Body plethysmography was performed and revealed lung volumes to be within normal limits. Diffusing capacity by single breath CO was likewise within normal limits. IMPRESSION: Irreversible mild large airways obstructive ventilatory impairment with preserved lung volumes and diffusing capacity. 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 -Genetic testing performed through [employer]: Negative for BRCA1/2 and 24 other relevant genes. -Caris negative for FOLR1. -She is tolerating Abraxane overall well with no serious or unexpected toxicity. -Personally reviewed CT scan imaging of chest, abdomen pelvis. Chest not read. Improved axillary adenopathy when compared to November. However worsening ascites in the abdomen. -No symptoms of SBO or partial SBO at this time. -Recommended rotating treatment to topotecan. -I discussed the rationale, logistics, potential risks (including but not limited to alopecia, cytopenias, nausea and vomiting, diarrhea, rash, infections and the small potential for as a consequence of severe toxicity/complications of therapy), benefits and alternatives, as well as the personnel involved in the administration of topotecan. I answered her questions in detail and she verbalized understanding and agreed with the recommended therapy. Please see the electronic consent document for details of doses and schedule. -Also discussed will explore if any clinical trials available through the gynecologic oncology program. Also discussed potential evaluation at the [facility]. -Discussed red flag symptoms for small bowel obstruction. Advised her to go to [place] ED if she should develop such symptoms. Plan: -Discontinue Abraxane. -Start topotecan next week. -CBC, CMP, CA125 on day 1. -CBC on days 8 and 15. -Office visit with CBC, CMP and CA125 for cycle #2. -Currently scheduled for every 2-week ultrasound evaluation for potential paracentesis if indicated. 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 -Stable. Plan: -Continue Cymbalta. (F41.1, C80.1) Anxiety associated with cancer diagnosis (HCC) Assessment: -Cymbalta helped significantly. Plan: -Continue Cymbalta. (O22.30) DVT (deep vein thrombosis) in Assessment: -She had a remote provoked DVT during first in 1984. -Nonetheless she is at increased risk of recurrent VTE given underlying cancer diagnosis. -No clear indication for prophylactic anticoagulation. Discussed monitoring for symptoms. Plan: -Monitor. 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 Plan: -Monitor. Portions of this documentation were copied and pasted from previous office visit notes in order to provide a cohesive continuity of the history. The note has been reviewed and edited and updated as necessary. I spent a total of 40 minutes on the date of the service which included preparing to see the patient, [id number] patient care, completing clinical documentation, obtaining and/or reviewing separately obtained history, performing a medically appropriate examination, counseling and educating the patient/family/caregiver, ordering medications, tests, or procedures, communicating with other HCPs (not separately reported), and communicating results to the patient/family/caregiver. Bk Lenz DO documented in this encounter [facility] 05-31-2024 Telephone encounter Note Scheduled with patient [facility] Work Phone: 05-31-2024 Miscellaneous Notes Scheduled with patient Left message for patient to return call. When she calls, ask if she can come in to see Dr. Lenz at 3:30 today to discuss changing treatment. Lilliana Choi documented in this encounter [facility] 05-31-2024 Telephone encounter Note Left message for patient to return call. When she calls, ask if she can come in to see Dr. Lenz at 3:30 today to discuss changing treatment. Lilliana Choi [facility] 05-30-2024 Surgery Surgical operation note BRIEF OP NOTE LOG ID: [id number] Surgery/Procedure Date: 05/30/2024 Incision/Procedure Start Time: 9:30 AM Incision Close/Procedure End Time: 9:45 AM Surgeon(s)/Proceduralist(s) and Palliative Care Nurse Practitioner(s): Renu Esquivel PA-C Procedure(s): paracentesis Anesthesia: local 5 ml lidocaine Findings: LLQ 1000 ml clear yellow fluid Estimated Blood Loss: <3 ml Specimens: Yes Complications: none Pre-Op/Pre-Procedure Diagnosis: ascites Post-Op/Post-Procedure Diagnosis: same SIGNATURE: Renu Esquivel PA-C PATIENT NAME: Evelyn Mccabe DATE: May 30, 2024 TIME: 9:46 AM PAGER/CONTACT #: [facility] Work Phone: 05-30-2024 Surgical operatio n note BRIEF OP NOTE LOG ID: [id number] Surgery/Procedure Date: 05/30/2024 Incision/Procedure Start Time: 9:30 AM Incision Close/Procedure End Time: 9:45 AM Surgeon(s)/Proceduralist(s) and Palliative Care Nurse Practitioner(s): Renu Esquivel PA-C Procedure(s): paracentesis Anesthesia: local 5 ml lidocaine Findings: LLQ 1000 ml clear yellow fluid Estimated Blood Loss: <3 ml Specimens: Yes Complications: none Pre-Op/Pre-Procedure Diagnosis: ascites Post-Op/Post-Procedure Diagnosis: same SIGNATURE: Renu Esquivel PA-C PATIENT NAME: Evelyn Mccabe DATE: May 30, 2024 TIME: 9:46 AM PAGER/CONTACT #: documented in this encounter [facility] 05-29-2024 Telephone encounter Note Patient scheduled and aware. Lilliana Choi [facility] 05-29-2024 Miscellaneous Notes Patient scheduled and aware. Lilliana Choi [employer] Secure Chat started for scheduling purposes. Lilliana Choi Please schedule for standing imaging guided paracentesis at [place] every 2 weeks beginning as soon as able. Bk Lenz DO Patient is aware and is expecting a call from the schedulers. Deanna Ag LPN Patient here today for CT's. Patient c/o not feeling well since . Abdomen distended; c/o tenderness to both sides of abdomen, intermittent firmness. Abdominal pain 4/10, left > right. Patient states she was really nauseated this morning while here but is passing flatus, eating and drinking. Had normal BM this morning. Denies extremity swelling. Has intermittent slight SOB, nothing terrible, is still able to go up and down stairs and ambulate without difficulty. She feels this is r/t her abdominal distention. Please look at CT films when able. Deanna Ag LPN documented in this encounter [facility] 05-28-2024 Telephone encounter Note [employer] Secure Chat started for scheduling purposes. Lilliana Choi [facility] 05-27-2024 Telephone encounter Note Please schedule for standing imaging guided paracentesis at [place] every 2 weeks beginning as soon as able. Bk Lenz DO Patient is aware and is expecting a call from the schedulers. Deanna Ag LPN [facility] 05-27-2024 Telephone encounter Note Patient here today for CT's. Patient c/o not feeling well since . Abdomen distended; c/o tenderness to both sides of abdomen, intermittent firmness. Abdominal pain 4/10, left > right. Patient states she was really nauseated this morning while here but is passing flatus, eating and drinking. Had normal BM this morning. Denies extremity swelling. Has intermittent slight SOB, nothing terrible, is still able to go up and down stairs and ambulate without difficulty. She feels this is r/t her abdominal distention. Please look at CT films when able. Deanna Ag LPN [facility] 05-27-2024 Nurse Note Blood return verified. Gripper hooked to auto-injector. Ct completed. Line flushed with 20cc NSS. Gripper D/C'd. Light dressing applied. Pt tolerated procedure well. No C/O's. Site without complication noted. Jesica Cardenas RN [facility] 05-27-2024 Nurse Note Blood return verified. Gripper hooked to auto-injector. Ct completed. Line flushed with 20cc NSS. Gripper D/C'd. Light dressing applied. Pt tolerated procedure well. No C/O's. Site without complication noted. Jesica Cardenas RN documented in this encounter [facility] 05-27-2024 History of Presen t illness Narrative Radiology Service Progress Note PATIENT NAME: Evelyn Mccabe DATE OF SERVICE: May 27, 2024 TIME: 1:59 PM PATIENT IDENTITY VERIFICATION COMPLETED USING TWO (2) IDENTIFIERS: Name and Date of confirmed by patient verbally. FALL SCREENING: Has the patient had 2 falls in the last year or 1 fall with injury or currently using an Ambulatory Assistive Device (Walker, Cane, Wheelchair, Crutches, etc.)? No PATIENT GENDER DATA: Female. status: : No status: NO. PATIENT RELEVANT IMPLANT DATA REVIEWED: Yes PATIENT PRESENTS WITH AN IMPLANTABLE OR ATTACHED SENIOR QUALITY CONTROL TECHNICIAN: No RADIOLOGY DEPARTMENT: CT; Exam(s) Completed: Chest Abdomen Pelvis PERIPHERAL IV DATA: power port accessed by [employer] SIGNED BY: RT Angus(R) May 27, 2024 1:59 PM documented in this encounter [facility] 05-27-2024 Note [facility] 05-24-2024 Telephone encounter Note Scheduled. patient informed. [facility] Work Phone: 05-24-2024 Miscellaneous Notes Scheduled. patient informed. 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 2) Remote DVT-- associated. HPI: The patient is a 58-year-old female with a past medical history significant for smoking (quit 06/2022), CAD (08/2021 following mildly symptomatic Covid, developed chest pain first day back to work--[place]; PCI x1 stent--ASA and Brilinta (stopped Brilinta after a week due to nausea and diarrhea--took Plavix for a year), remote DVT (first in 1984) and ovarian cancer. Developed change in bowel habits spring 2021. Then developed abdominal pain summer 2021. Admitted [facility] via ED 06/20/2022. Per admitting hospitalist then onset 04/2022 ongoing persistent dull aching with occasional sharp stabbing periumbical abdominal pain, rated 2-5/10 in severity with nausea without emesis and night sweats with no diarrhea and normal once daily in AM bowel movements with PCP evaluation with outpatient US which was reportedly normal with ED evaluation 06/13/[address] A/P w/ reported gastritis and ascites and normal labs with discharge to home with follow-up PCP directed 06/17/22 MRI with moderate volume ascites with two thin walled well defined fluid collections without enhancement (1.2 x 0.8, 3.6 x 2.7 cm) in the LLQ with referral made to GI Dr. Rajput who now re-presents to the [facility] ED on 06/20/22 history of ongoing constant abdominal pain in the similar region but worsened, rated pain for the last 1-2 weeks 8-10/10 in severity with ~9 lb weight loss with decreased oral intake and ongoing night sweats. US 06/22/2022 at [facility]: MPRESSION: 1. Normal-size anteverted uterus with a hyperechoic 3 mm thick endometrium. 2. No evidence of uterine cyst or solid mass lesions. 3. Normal cervix. 4. Mildly lobulated right ovary measuring 3.5 cm to 2.7 x 2.4 cm without distinct cystic or solid lesions. 5. Left ovary is not visualized. 6. Large amount of fluid or ascites in the cul-de-sac. 7. No evidence of adnexal masses or peritoneal implants. Referred to Dr. Hyatt. Underwent laparoscopy with findings of diffuse carcinomatosis and biopsy at [facility] 06/28/2022. Pathology: PERITONEUM, BIOPSIES - HIGH-GRADE ADENOCARCINOMA. SEE COMMENT. 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 These malignant cells stain positive with CK7, PAX 8, patchy positivity with calretinin and weak focal ER positivity, and negative for CK20, GATA3 and WT1. A p53 demonstrates a null phenotype. 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 SNVs/Indels - TP53 splice site c.782+1G>A Immuno-Oncology Biomarkers - PD-L1 LDT: Not Detected Interpretation: -TP53 (tumor protein P53) encodes a tumor suppressor protein that responds to cellular stresses, including gDNA damage and oncogenic activation, by inducing and modulating downstream anti-tumor responses such as DNA repair, recombination, and apoptosis. Currently, there are no approved therapies that directly target oncogenic alterations in TP53. However, experimental therapies that target and re-activate the transcriptional activity of mutant TP53 have been described and are currently under investigation. Early clinical trials data suggest oncogenic TP53 mutations may predict resistance to cisplatin chemotherapy, MDM2 inhibitors, and CDK4/CDK6 inhibitors. - No pathogenic mutations are present in any of the common homologous recombination repair genes on this panel. Variants of unknown clinical significance are detected in the following genes: ATR and BARD1 (Please see the Variants of Unknown Clinical Significance section, below). As the functional consequences of these variants are undetermined, the clinical utility of PARP inhibitor therapy in this case is uncertain Started on neoadjuvant chemotherapy with carboplatin and paclitaxel. She received 4 cycles prior to undergoing interval debulking surgery on 09/28/2022. Notes indicate had complete gross tumor debulking. Pathology: A. Soft tissue, anterior peritoneum, excision: - Fibroadipose tissue with focal dense fibrosis and rare infiltrating high-grade carcinoma. B. Omentum, excision: - Residual invasive high-grade adenocarcinoma and therapy-related changes present. Comment: The majority of tumor in all the specimens (A - E) has the appearance of high-grade serous carcinoma. Focal areas of tumor in parts B and D show clear cells features. However, by immunohistochemistry, these cells are negative for napsin-A, making clear cell carcinoma less likely. WT-1 is also negative. C. Uterus, cervix, bilateral fallopian tubes and ovaries, hysterectomy with bilateral salpingo-oophorectomy: - Residual high-grade carcinoma involving bilateral ovaries and fallopian tubes. - Uterus with inactive endometrium, and unremarkable myometrium and cervix. D. Small bowel nodule, excision: - High-grade carcinoma and therapy-related changes including fibrinous necrosis. E. Appendix, appendectomy: - Rare infiltrating carcinoma involving the mesoappendix. - Unremarkable tubular appendix. Completed 2 additional cycles carbo/paclitaxel November 2021. He is here today to discuss maintenance therapy. Patient's CA125 level is 28.2 U/mL.Ran at [facility]. Per Dr. Naranjo's note: Plan: Counseled the patient and her daughter today as far as treatment options. This would include going on a PARP inhibitor, Avastin or observation only. We discussed the fact that she is HRD and BRCA negative. We discussed that there was still an advantage to going on a PARP inhibitor. I did career technical counselor the patient as to the most common side effects of PARP inhibitors. We also discussed some of the more common signs and symptoms of recurrent cancer. The patient would like to start Zejula, will start at the medium dose, will watch CBC weekly for 1 month and then monthly thereafter. Discussed staying on the Zejula until evidence of disease progression or toxicity. ----- Started Zejula 12/20/2022 but developed diarrhea, fatigue, chest pain with palpitations that woke her by 12/22/2022. Saw cardiology 12/23 and was told EKG okay and could retry Zejula. Started on 12/26. 12/28 had blurry vision and couldn't see to drive. Decreased dose to 200 mg daily. 12/30 got palpitations again. Stopped altogether 01/02/2023. Went to [facility] in [place] where evidently CT scan 01/16/23 showed lesions in left lung, liver, and pelvis; it was not known whether these were new as she had no previous scans to compare. PET scan recommended. PET 02/06/2023: IMPRESSION: 1. NECK: * Asymmetric hypermetabolism along the right palatine tonsil, indeterminate. Recommend correlation with direct inspection. * Otherwise no FDG avid neoplastic process. 2. CHEST: * No FDG avid neoplastic process. * 9 mm left upper lobe groundglass/semisolid nodule is not FDG avid and likely represents a primary lung neoplasm along the adenocarcinoma spectrum. 3. ABDOMEN/PELVIS: * No FDG avid neoplastic process. 4. EXTREMITIES/SKELETON: * No suspicious FDG avid osseous lesion. RESULT: Pack Changer (topogram) images: No additional findings. - Mediastinum blood pool activity: Max SUV: 1.8 - Background liver activity: Max SUV: 2.4 HEAD AND NECK: Focal hypermetabolism along the right palatine tonsil (Max SUV 7.6) with associated soft tissue fullness. Physiologic uptake seen in the visualized brain, extraocular muscles, parapharyngeal soft tissues, base of tongue, vocal cords, and salivary glands. No FDG avid cervical lymphadenopathy or mass. No FDG avid thyroid lesion. CHEST: Right chest port terminates in the right atrium. Physiologic uptake in the heart and mediastinum. Lungs and tracheobronchial tree: -0.9 cm left apicoposterior groundglass/semisolid nodule without associated hypermetabolism (Max SUV 0.6). -Additional scattered smaller pulmonary nodules, for example a 4 mm nodule within the posterior right upper lobe, below the resolution of PET. -No hypermetabolic pulmonary lesions. -Emphysema. Note that PET/CT is not sensitive for pulmonary nodules less than 8 mm. Pleura: No FDG avid pleural effusion or pleural mass. Mediastinum and Lymph nodes: 0.9 cm right prevascular node with low level hypermetabolism (Max SUV 2.6), likely reactive. Heart and great vessels: Physiologic uptake in the heart. Chest wall and axilla: No FDG avid axillary lymphadenopathy. ABDOMEN AND PELVIS: Physiologic uptake seen in the and GI tracts. Liver: No FDG avid lesion. Low-attenuation lesion centered between the posterior aspect of the left hepatic lobe and the body of the pancreas, without associated hypermetabolism. Biliary: Gallbladder is unremarkable. Spleen: No FDG avid lesion. No splenomegaly. Pancreas: No FDG avid lesion. Adrenals: No FDG avid lesion. Kidneys: No stones, hydronephrosis, or FDG avid lesions. GI tract: No dilation or focal suspicious FDG avid lesion. Lymph nodes: No FDG avid abdominal or pelvic lymphadenopathy. Left external iliac/obturator node measures 0.7 cm and has expected low level hypermetabolism (Max SUV 1.8). Mesentery/Peritoneum: No ascites or FDG avid mass. Vasculature: Vascular patency cannot be assessed due to lack of IV contrast. Atherosclerotic calcifications of the abdominal aorta and iliac vessels without aneurysm. Pelvis: Hysterectomy. No ascites, focal fluid collection, or hypermetabolic lesion. Abdominopelvic wall: Postsurgical changes along the ventral pelvic wall with expected low level hypermetabolism. BONES AND EXTREMITIES: No suspicious FDG avid osseous lesion. The imaged portions of the skeleton demonstrates age-related degenerative changes. No destructive osseous lesions. Previous therapy: 1) Carboplatin and paclitaxel x4 cycles. 2) Interval debulking surgery 09/28/2022 3) Carboplatin and paclitaxel x2 cycles. Completed 11/2022. 4) Zejula. Did not tolerate due to side effects (see above). Post op had abdominal pain (incisional pain?) and saw palliative care and was prescribed gabapentin which helped significantly. Now has mild ghost pain on occasion and continues gabapentin to help her sleep--Tried stopping and significant flare of anxiety. Has had buproprion, Vistaril and Effexor from PCP in the past. Tried 0.5 mg lorazepam for PET and it made her very sedate. Quit smoking at time of ovarian cancer diagnosis. Has episodic dyspnea---can happen at rest or with exertion but never consistently. However she noticed a gradual worsening of BORJAS. No further palpitations. No exertional chest pain/pressure. Saw Dr. Scruggs, shovel oiler at [facility]: The preferred approach would be transthoracic needle aspiration under CT scan guidance. Since she has no blebs within 3 cm of the lesion, I believe her risk of procedure would be between 5 and 15% chance of pneumothorax. If the lesion is a lung primary, there is no outcome difference between the biopsy now and waiting 3 months to watch behavior, biopsying it if it enlarges in 3 months. If it is an ovarian metastasis, the best approach would be to biopsy the PET positive tonsillar enlargement, treat that, and observe the behavior of the lung lesion. If it is an ovarian metastasis and responds to treatment, and recedes on her next CAT scan, we will have avoided a biopsy. -I therefore recommend that her tonsil lesion be biopsied by ENT (first visit with Dr. Gregory tomorrow), and take a watchful waiting approach regarding the left upper lobe lesion for now, to readdress it in 3 months. Both of these options were discussed with the patient, she was given the option to biopsy now, and we agreed that it may be more prudent and would not change the outcome of a small lung lesion to wait for 3 months on the lung lesion biopsy. -Meanwhile we will evaluate her COPD, she has excellent functional status, and we will add bronchodilators if necessary. Underwent b/l tonsillectomy. No malignancy. 5) Gemcitabine/carboplatin/bevacizu mab. Cycle #1 began 05/12/2023. Was seen in the ED on 05/08 for worsening shortness of breath. Found to have increasing right pleural effusion. She underwent thoracentesis in which 80 cc of cloudy chloe fluid was removed. 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 6) Doxil and bevacizumab 7) Pemetrexed. Current therapy: 1) Abraxane. Presents for ongoing oncologic management. Interim history: Stumble on stairs. Hit right lateral ribs on railing. Was hurting--getting better. Verified today: No abdominal pain. Appetite very good. No nausea. Working full-time. Has noted some mild swelling of the ankles towards the end of the day. Down in the morning. PMH, medications and allergies personally reviewed by me today. Any changes documented in appropriate section. Social History Tobacco Use Smoking status: Former Packs/day: 0.50 Years: 40.00 Additional pack years: 0.00 Total pack years: 20.00 Types: Cigarettes Quit date: 06/23/2022 Years since quittin.8 Smokeless tobacco: Never Vaping Use Vaping Use: Never used Substance Use Topics Alcohol use: No Drug use: No Family History Problem Relation Age of Onset Thyroid Mother Hypertension Father Heart Father Thyroid Sister Half-sister other (CHF) Sister Thyroid Sister Half-sister Colon Cancer Sister Thyroid Sister Half-sister Hypertension Brother Cancer Maternal Grandmother OVARIAN Hypertension Maternal Grandfather Cancer Maternal Grandfather LUNG Lung Cancer Paternal Grandmother ROS: Constitutional: Denies episodes of fever and night sweats. Neuro: Denies vertigo, dizziness and imbalance. HEENT: No recent change in voice, vision or hearing. Resp: See HPI. CVS: No exertional chest pain or pressure. No lower extremity swelling or edema. GI: See HPI. : Denies dysuria or gross hematuria. Endo: Denies hot flashes. Denies polyuria and polydipsia. Denies heat and cold intolerance. Musculoskeletal: No bone, back, joint and muscular pain. Derm: Denies rash. Heme: Denies unusual bleeding and unexplained bruising. Psych: Anxiety--improved on Cymbalta. PHYSICAL EXAM: Vitals: Blood pressure 119/78, pulse 75, temperature 36.1 C (97 F), temperature source Temporal, weight 53.5 kg (118 lb), last menstrual period 03/23/2012, SpO2 100%. Well-appearing and in no acute distress. EYES: Sclerae are anicteric bilaterally. LYMPHATIC: There is no axillary adenopathy. No longer LN left axilla. ?Right axilla small. RESPIRATORY: Inspiratory vesicular breath sounds are of diminished intensity in all cruz. Diminished right base anteriorly--stable. CARDIOVASCULAR: Rhythm is regular. ABDOMEN: The upper abdomen is non-distended. No hyperactive bowel sounds No tenderness today. No fluid wave. Extremities: No swelling or edema. SKIN: No jaundice. MS: Point tender along posterior-lateral right ~8-9th rib. LABS: Latest Ref [facility] 05/09/2024 WBC 3.70 - 11.00 k/uL 5.10 RBC 3.90 - 5.20 m/uL 4.04 Hemoglobin 11.5 - 15.5 g/dL 11.0 (L) Hematocrit 36.0 - 46.0 % 34.0 (L) MCV 80.0 - 100.0 fL 84.2 MCH 26.0 - 34.0 pg 27.2 MCHC 30.5 - 36.0 g/dL 32.4 RDW-CV 11.5 - 15.0 % 17.2 (H) Platelet Count 150 - 400 k/uL 318 MPV 9.0 - 12.7 fL 9.3 Neut% % 50.9 Abs Neut (ANC) 1.45 - 7.50 k/uL 2.60 Lymph% % 34.9 Abs Lymph 1.00 - 4.00 k/uL 1.78 Clay% % 11.0 Abs Clay <0.87 k/uL 0.56 Eosin% % 2.0 Abs Eosin <0.46 k/uL 0.10 Baso% % 0.8 Abs Baso <0.11 k/uL 0.04 Immature Gran % % 0.4 IMMATURE GRANS (ABS) <0.10 k/uL <0.03 NRBC /100 WBC 0.0 Absolute nRBC <0.01 k/uL <0.01 DTYPE Auto Protein, Total 6.3 - 8.0 g/dL 6.6 Albumin 3.9 - 4.9 g/dL 4.1 Calcium 8.5 - 10.2 mg/dL 9.1 Bilirubin, Total 0.2 - 1.3 mg/dL 0.2 Alkaline Phosphatase 34 - 123 U/L 65 AST 13 - 35 U/L 24 ALT 7 - 38 U/L 24 Glucose 74 - 99 mg/dL 140 (H) BUN 7 - 21 mg/dL 18 Creatinine 0.58 - 0.96 mg/dL 0.78 Sodium 136 - 144 mmol/L 138 Potassium 3.7 - 5.1 mmol/L 4.3 Chloride 98 - 107 mmol/L 103 CO2 22 - 30 mmol/L 26 Anion Gap 8 - 15 mmol/L 9 eGFR >=60 mL/min/1.73m 88 Magnesium 1.7 - 2.3 mg/dL 1.8 PFTs at [facility] 02/17/2023: Forced expiration spirometry demonstrates the presence of a mild large airways obstructive ventilatory defect. There was no significant response to aerosolized bronchodilators. Spirograms are of fair quality and plateau normally. Body plethysmography was performed and revealed lung volumes to be within normal limits. Diffusing capacity by single breath CO was likewise within normal limits. IMPRESSION: Irreversible mild large airways obstructive ventilatory impairment with preserved lung volumes and diffusing capacity. 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 -Genetic testing performed through [employer]: Negative for BRCA1/2 and 24 other relevant genes. -Caris negative for FOLR1. -She is tolerating Abraxane overall well with no serious or unexpected toxicity. -Recent biopsy of right axillary lymph node was done a week after her first dose and it was nondiagnostic showing only scant lymphoid tissue. -Marked improvement in symptoms. Nice decline in CA125. -Reviewed CBC. Counts allow continued treatment. Reviewed CMP. No concerning abnormalities. -Very nice response and continued palliative benefit from treatment. Neuropathy stable.Benefit of continuing therapy for outweighs risk at this time. Plan: -Continue Abraxane. -Continue folic acid. -CTs prior to next OV. 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 Plan: -Continue Cymbalta. (F41.1, C80.1) Anxiety associated with cancer diagnosis (HCC) Assessment: -Cymbalta helped significantly. Plan: -Continue Cymbalta. (O22.30) DVT (deep vein thrombosis) in Assessment: -She had a remote provoked DVT during first in 1984. -Nonetheless she is at increased risk of recurrent VTE given underlying cancer diagnosis. -No clear indication for prophylactic anticoagulation. Discussed monitoring for symptoms. Plan: -Monitor. 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 Plan: -Monitor. Portions of this documentation were copied and pasted from previous office visit notes in order to provide a cohesive continuity of the history. The note has been reviewed and edited and updated as necessary. I spent a total of 15 minutes on the date of the service which included preparing to see the patient, [id number] patient care, completing clinical documentation, obtaining and/or reviewing separately obtained history, performing a medically appropriate examination, counseling and educating the patient/family/caregiver, ordering medications, tests, or procedures, communicating with other HCPs (not separately reported), and communicating results to the patient/family/caregiver. Bk Lenz DO documented in this encounter [facility] 04-19-2024 Nurse Note Pt c/o sleep disruption approx 2 hours after falling asleep. States she's wide awake and is unable to go back to sleep. This nurse suggested trying melatonin and if that is ineffective, try Benadryl. She does not want any prescription meds at this time, but wanted to make us aware that this is new and she has never had this issue before. [facility] 04-19-2024 Nurse Note Pt c/o sleep disruption approx 2 hours after falling asleep. States she's wide awake and is unable to go back to sleep. This nurse suggested trying melatonin and if that is ineffective, try Benadryl. She does not want any prescription meds at this time, but wanted to make us aware that this is new and she has never had this issue before. documented in this encounter [facility] 04-10-2024 Note [facility] 04-10-2024 History of Presen t illness Narrative Chief Complaint Patient presents with: Established Patient HPI: Evelyn Mccabe is a 58 year old female who presents here today for evaluation for treatment tomorrow. Per Dr. Lenz's previous note: H/o smoking (quit 06/2022), CAD (08/2021 following mildly symptomatic Covid, developed chest pain first day back to work--IA; PCI x1 stent--ASA and Brilinta (stopped Brilinta after a week due to nausea and diarrhea--took Plavix for a year), remote DVT (first in 1984) and ovarian cancer. Developed change in bowel habits spring 2021. Then developed abdominal pain summer 2021. Admitted [facility] via ED 06/20/2022. Per admitting hospitalist then onset 04/2022 ongoing persistent dull aching with occasional sharp stabbing periumbical abdominal pain, rated 2-5/10 in severity with nausea without emesis and night sweats with no diarrhea and normal once daily in AM bowel movements with PCP evaluation with outpatient US which was reportedly normal with ED evaluation 06/13/[address] A/P w/ reported gastritis and ascites and normal labs with discharge to home with follow-up PCP directed 06/17/22 MRI with moderate volume ascites with two thin walled well defined fluid collections without enhancement (1.2 x 0.8, 3.6 x 2.7 cm) in the LLQ with referral made to GI Dr. Rajput who now re-presents to the [facility] ED on 06/20/22 history of ongoing constant abdominal pain in the similar region but worsened, rated pain for the last 1-2 weeks 8-07/25 in severity with ~9 lb weight loss with decreased oral intake and ongoing night sweats. US 06/22/2022 at [facility]: MPRESSION: 1. Normal-size anteverted uterus with a hyperechoic 3 mm thick endometrium. 2. No evidence of uterine cyst or solid mass lesions. 3. Normal cervix. 4. Mildly lobulated right ovary measuring 3.5 cm to 2.7 x 2.4 cm without distinct cystic or solid lesions. 5. Left ovary is not visualized. 6. Large amount of fluid or ascites in the cul-de-sac. 7. No evidence of adnexal masses or peritoneal implants. Referred to Dr. Hyatt. Underwent laparoscopy with findings of diffuse carcinomatosis and biopsy at [facility] 06/28/2022. Pathology: PERITONEUM, BIOPSIES - HIGH-GRADE ADENOCARCINOMA. SEE COMMENT. 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 These malignant cells stain positive with CK7, PAX 8, patchy positivity with calretinin and weak focal ER positivity, and negative for CK20, GATA3 and WT1. A p53 demonstrates a null phenotype. 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 SNVs/Indels - TP53 splice site c.782+1G>A Immuno-Oncology Biomarkers - PD-L1 LDT: Not Detected Interpretation: -TP53 (tumor protein P53) encodes a tumor suppressor protein that responds to cellular stresses, including gDNA damage and oncogenic activation, by inducing and modulating downstream anti-tumor responses such as DNA repair, recombination, and apoptosis. Currently, there are no approved therapies that directly target oncogenic alterations in TP53. However, experimental therapies that target and re-activate the transcriptional activity of mutant TP53 have been described and are currently under investigation. Early clinical trials data suggest oncogenic TP53 mutations may predict resistance to cisplatin chemotherapy, MDM2 inhibitors, and CDK4/CDK6 inhibitors. - No pathogenic mutations are present in any of the common homologous recombination repair genes on this panel. Variants of unknown clinical significance are detected in the following genes: ATR and BARD1 (Please see the Variants of Unknown Clinical Significance section, below). As the functional consequences of these variants are undetermined, the clinical utility of PARP inhibitor therapy in this case is uncertain Started on neoadjuvant chemotherapy with carboplatin and paclitaxel. She received 4 cycles prior to undergoing interval debulking surgery on 09/28/2022. Notes indicate had complete gross tumor debulking. Pathology: A. Soft tissue, anterior peritoneum, excision: - Fibroadipose tissue with focal dense fibrosis and rare infiltrating high-grade carcinoma. B. Omentum, excision: - Residual invasive high-grade adenocarcinoma and therapy-related changes present. Comment: The majority of tumor in all the specimens (A - E) has the appearance of high-grade serous carcinoma. Focal areas of tumor in parts B and D show clear cells features. However, by immunohistochemistry, these cells are negative for napsin-A, making clear cell carcinoma less likely. WT-1 is also negative. C. Uterus, cervix, bilateral fallopian tubes and ovaries, hysterectomy with bilateral salpingo-oophorectomy: - Residual high-grade carcinoma involving bilateral ovaries and fallopian tubes. - Uterus with inactive endometrium, and unremarkable myometrium and cervix. D. Small bowel nodule, excision: - High-grade carcinoma and therapy-related changes including fibrinous necrosis. E. Appendix, appendectomy: - Rare infiltrating carcinoma involving the mesoappendix. - Unremarkable tubular appendix. Completed 2 additional cycles carbo/paclitaxel November 2021. He is here today to discuss maintenance therapy. Patient's CA125 level is 28.2 U/mL.Ran at [facility]. Per Dr. Naranjo's note: Plan: Counseled the patient and her daughter today as far as treatment options. This would include going on a PARP inhibitor, Avastin or observation only. We discussed the fact that she is HRD and BRCA negative. We discussed that there was still an advantage to going on a PARP inhibitor. I did career technical counselor the patient as to the most common side effects of PARP inhibitors. We also discussed some of the more common signs and symptoms of recurrent cancer. The patient would like to start Zejula, will start at the medium dose, will watch CBC weekly for 1 month and then monthly thereafter. Discussed staying on the Zejula until evidence of disease progression or toxicity. ----- Started Zejula 12/20/2022 but developed diarrhea, fatigue, chest pain with palpitations that woke her by 12/22/2022. Saw cardiology 12/23 and was told EKG okay and could retry Zejula. Started on 12/26. 12/28 had blurry vision and couldn't see to drive. Decreased dose to 200 mg daily. 12/30 got palpitations again. Stopped altogether 01/02/2023. Went to [facility] in [place] where evidently CT scan 01/16/23 showed lesions in left lung, liver, and pelvis; it was not known whether these were new as she had no previous scans to compare. PET scan recommended. PET 02/06/2023: IMPRESSION: 1. NECK: * Asymmetric hypermetabolism along the right palatine tonsil, indeterminate. Recommend correlation with direct inspection. * Otherwise no FDG avid neoplastic process. 2. CHEST: * No FDG avid neoplastic process. * 9 mm left upper lobe groundglass/semisolid nodule is not FDG avid and likely represents a primary lung neoplasm along the adenocarcinoma spectrum. 3. ABDOMEN/PELVIS: * No FDG avid neoplastic process. 4. EXTREMITIES/SKELETON: * No suspicious FDG avid osseous lesion. RESULT: Pack Changer (topogram) images: No additional findings. - Mediastinum blood pool activity: Max SUV: 1.8 - Background liver activity: Max SUV: 2.4 HEAD AND NECK: Focal hypermetabolism along the right palatine tonsil (Max SUV 7.6) with associated soft tissue fullness. Physiologic uptake seen in the visualized brain, extraocular muscles, parapharyngeal soft tissues, base of tongue, vocal cords, and salivary glands. No FDG avid cervical lymphadenopathy or mass. No FDG avid thyroid lesion. CHEST: Right chest port terminates in the right atrium. Physiologic uptake in the heart and mediastinum. Lungs and tracheobronchial tree: -0.9 cm left apicoposterior groundglass/semisolid nodule without associated hypermetabolism (Max SUV 0.6). -Additional scattered smaller pulmonary nodules, for example a 4 mm nodule within the posterior right upper lobe, below the resolution of PET. -No hypermetabolic pulmonary lesions. -Emphysema. Note that PET/CT is not sensitive for pulmonary nodules less than 8 mm. Pleura: No FDG avid pleural effusion or pleural mass. Mediastinum and Lymph nodes: 0.9 cm right prevascular node with low level hypermetabolism (Max SUV 2.6), likely reactive. Heart and great vessels: Physiologic uptake in the heart. Chest wall and axilla: No FDG avid axillary lymphadenopathy. ABDOMEN AND PELVIS: Physiologic uptake seen in the and GI tracts. Liver: No FDG avid lesion. Low-attenuation lesion centered between the posterior aspect of the left hepatic lobe and the body of the pancreas, without associated hypermetabolism. Biliary: Gallbladder is unremarkable. Spleen: No FDG avid lesion. No splenomegaly. Pancreas: No FDG avid lesion. Adrenals: No FDG avid lesion. Kidneys: No stones, hydronephrosis, or FDG avid lesions. GI tract: No dilation or focal suspicious FDG avid lesion. Lymph nodes: No FDG avid abdominal or pelvic lymphadenopathy. Left external iliac/obturator node measures 0.7 cm and has expected low level hypermetabolism (Max SUV 1.8). Mesentery/Peritoneum: No ascites or FDG avid mass. Vasculature: Vascular patency cannot be assessed due to lack of IV contrast. Atherosclerotic calcifications of the abdominal aorta and iliac vessels without aneurysm. Pelvis: Hysterectomy. No ascites, focal fluid collection, or hypermetabolic lesion. Abdominopelvic wall: Postsurgical changes along the ventral pelvic wall with expected low level hypermetabolism. BONES AND EXTREMITIES: No suspicious FDG avid osseous lesion. The imaged portions of the skeleton demonstrates age-related degenerative changes. No destructive osseous lesions. Previous therapy: 1) Carboplatin and paclitaxel x4 cycles. 2) Interval debulking surgery 09/28/2022 3) Carboplatin and paclitaxel x2 cycles. Completed 11/2022. 4) Zejula. Did not tolerate due to side effects (see above). Post op had abdominal pain (incisional pain?) and saw palliative care and was prescribed gabapentin which helped significantly. Now has mild ghost pain on occasion and continues gabapentin to help her sleep--Tried stopping and significant flare of anxiety. Has had buproprion, Vistaril and Effexor from PCP in the past. Tried 0.5 mg lorazepam for PET and it made her very sedate. Quit smoking at time of ovarian cancer diagnosis. Has episodic dyspnea---can happen at rest or with exertion but never consistently. However she noticed a gradual worsening of BORJAS. No further palpitations. No exertional chest pain/pressure. Saw Dr. Scruggs, shovel oiler at [facility]: The preferred approach would be transthoracic needle aspiration under CT scan guidance. Since she has no blebs within 3 cm of the lesion, I believe her risk of procedure would be between 5 and 15% chance of pneumothorax. If the lesion is a lung primary, there is no outcome difference between the biopsy now and waiting 3 months to watch behavior, biopsying it if it enlarges in 3 months. If it is an ovarian metastasis, the best approach would be to biopsy the PET positive tonsillar enlargement, treat that, and observe the behavior of the lung lesion. If it is an ovarian metastasis and responds to treatment, and recedes on her next CAT scan, we will have avoided a biopsy. -I therefore recommend that her tonsil lesion be biopsied by ENT (first visit with Dr. Gregory tomorrow), and take a watchful waiting approach regarding the left upper lobe lesion for now, to readdress it in 3 months. Both of these options were discussed with the patient, she was given the option to biopsy now, and we agreed that it may be more prudent and would not change the outcome of a small lung lesion to wait for 3 months on the lung lesion biopsy. -Meanwhile we will evaluate her COPD, she has excellent functional status, and we will add bronchodilators if necessary. Underwent b/l tonsillectomy. No malignancy. 5) Gemcitabine/carboplatin/bevacizu mab. Cycle #1 began 05/12/2023. Was seen in the ED on 05/08 for worsening shortness of breath. Found to have increasing right pleural effusion. She underwent thoracentesis in which 80 cc of cloudy chloe fluid was removed. 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 6) Doxil and bevacizumab 7) Pemetrexed. Current therapy: 1) Abraxane. No new concerns today. Appetite: Good. Energy level: Good, I'm working. Denies fevers. Mouth:denies sores Resp:denies cough or sob Cardiac:denies chest pain/palpitations GI:denies abd pain, n/v, moving bowels regularly :denies dysuria/hematuria Extrem:denies pain Neuro:mild neuropathy-stable Skin:denies rashes Heme:denies bleeding The ROS is otherwise negative. Past medical history, appointments, medications, allergies reviewed. No changes. EXAM: BP 108/71 Pulse 79 Temp 36.6 C (97.9 F) (Temporal) Wt 52.8 kg (116 lb 8 oz) LMP 03/23/2012 SpO2 99% BMI 18.25 kg/m APPEARANCE Well appearing, alert, in no acute distress, well-hydrated HEART RRR with normal S1 and S2, no murmurs LUNG clear to auscultation ABDOMEN bowel sounds normoactive, soft, non-tender, non-distended EXTREMITIES No edema NEURO Awake, alert and oriented x 3, Normal gait, and No involuntary motions. SKIN Skin color, texture, turgor normal, no suspicious rashes or lesions LABS: Latest Ref Rng 03/20/2024 03/28/2024 04/10/2024 WBC 3.70 - 11.00 k/uL 5.22 4.59 4.82 RBC 3.90 - 5.20 m/uL 4.05 3.94 3.77 (L) Hemoglobin 11.5 - 15.5 g/dL 11.2 (L) 10.9 (L) 10.5 (L) Hematocrit 36.0 - 46.0 % 35.2 (L) 33.6 (L) 32.1 (L) MCV 80.0 - 100.0 fL 86.9 85.3 85.1 MCH 26.0 - 34.0 pg 27.7 27.7 27.9 MCHC 30.5 - 36.0 g/dL 31.8 32.4 32.7 RDW-CV 11.5 - 15.0 % 15.7 (H) 15.7 (H) 16.6 (H) Platelet Count 150 - 400 k/uL 323 302 330 MPV 9.0 - 12.7 fL 9.2 9.7 9.2 Neut% % 49.0 49.4 48.1 Abs Neut (ANC) 1.45 - 7.50 k/uL 2.56 2.27 2.32 Lymph% % 37.0 39.0 35.3 Abs Lymph 1.00 - 4.00 k/uL 1.93 1.79 1.70 Clay% % 10.5 7.6 13.3 Abs Clay <0.87 k/uL 0.55 0.35 0.64 Eosin% % 2.3 2.4 2.1 Abs Eosin <0.46 k/uL 0.12 0.11 0.10 Baso% % 1.0 0.9 1.0 Abs Baso <0.11 k/uL 0.05 0.04 0.05 Immature Gran % % 0.2 0.7 0.2 IMMATURE GRANS (ABS) <0.10 k/uL <0.03 0.03 <0.03 NRBC /100 WBC 0.0 0.0 0.0 Absolute nRBC <0.01 k/uL <0.01 <0.01 <0.01 DTYPE Auto Auto Auto CMP/Mag/CA125: Pending ASSESSMENT/PLAN: 1. Malignant neoplasm of both ovaries (HCC) - ICD9: 183.0, ICD10: C56.3 (primary diagnosis) 2. 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 No HRD including BRCA gene mutation. Genetic testing performed through [facility] [facility]: Negative for BRCA1/2 and 24 other relevant genes. Caris negative for FOLR1. - Overall tolerating abraxane well. - Reviewed CBC with pt. - CMP/Mag/CA125 pending. - Monitor CA125. - Continue current medications. - Proceed as scheduled tomorrow for abraxane pending all labs. - Follow up as scheduled. - Pt. aware to call office with any questions/concerns. The patient indicates understanding of these issues and agrees with the plan. All documentation from previous visit of 03/20/24-Dr. Lenz was copied and pasted, documentation has been reviewed and edited as necessary for today's visit. Familia Madden APRN.MARISA documented in this encounter [facility] 04-10-2024 Telephone encounter Note Faxed requested path and ov to be to [phone] tracking number [id number]. Gayla Roberto LPN [facility] 04-10-2024 Miscellaneous Notes Faxed requested path and ov to be to [phone] tracking number [id number]. Gayla Roberto LPN documented in this encounter [facility] 03-28-2024 Telephone encounter Note Message left on identified voicemail to stay well hydrated, and she may want to give herself more time after treatment before returning to work. Also sent info via my chart. Bailey Rodríguez LPN [facility] 03-28-2024 Miscellaneous Notes Message left on identified voicemail to stay well hydrated, and she may want to give herself more time after treatment before returning to work. Also sent info via my chart. Bailey Rodríguez LPN Agree with hydration. Perhaps she may want to give herself some more time after each treatment before going back to work. Bk Lenz DO Dr. Lenz, Pt is here for Abraxane. She reports dizziness to the point that she was going to pass out last week at her job after she came here for treatment. States it lasted for about 15 minutes. No other symptoms associated with it. She denies any repeat episode of dizziness this week. Please advise. Pt reminded to stay hydrated also. Thank you, Herbert RN documented in this encounter [facility] 03-28-2024 Telephone encounter Note Agree with hydration. Perhaps she may want to give herself some more time after each treatment before going back to work. Bk Lenz DO [facility] 03-28-[address] Lenz, Pt is here for Abraxane. She reports dizziness to the point that she was going to pass out last week at her job after she came here for treatment. States it lasted for about 15 minutes. No other symptoms associated with it. She denies any repeat episode of dizziness this week. Please advise. Pt reminded to stay hydrated also. Thank you, Herbert RN [facility] Work Phone: 03-27-2024 Telephone encounter Note Letter printed for signature. Deanna Ag LPN [facility] 03-27-2024 Miscellaneous Notes Letter printed for signature. Deanna Ag LPN Pended letter to you. Let me know if you can't see it. Gayla Roberto LPN Left message for pt to return call to me, please send call to me. Gayla Roberto LPN Yes please. Bk Lenz DO would you like me to compose a letter? Patient called asking for a letter from Dr. Lenz stating patient can wear more comfortable shoes such as tennis shoes to work due to neuropathy. 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 documented in this encounter [facility] 03-26-2024 Telephone encounter Note Pended letter to you. Let me know if you can't see it. Gayla Roberto LPN [facility] 03-26-2024 Telephone encounter Note Left message for pt to return call to me, please send call to me. Gayla Roberto LPN [facility] 03-26-2024 Telephone encounter Note Yes please. Bk Lenz DO [facility] 03-26-2024 Telephone encounter Note would you like me to compose a letter? [facility] 03-26-2024 Telephone encounter Note Patient called asking for a letter from Dr. Lenz stating patient can wear more comfortable shoes such as tennis shoes to work due to neuropathy. 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 [facility] Work Phone: 03-21-2024 Telephone encounter Note completed [facility] Work Phone: 03-21-2024 Miscellaneous Notes completed documented in this encounter [facility] 03-21-2024 Note [facility] 03-21-2024 Procedure note Pt states she is going on vacation on March 29 for one week; therefore, will miss day [address] Lenz updated and states to delete day 15 and that week will be pt's week off. Start Cycle 5 when she returns. April 11 will be C5 D1 with OV the day prior and labs. Pt aware and PSR to call pt when appt is rescheduled. Kristi Lewis RN [facility] Work Phone: 03-21-2024 Procedure note Pt states she is going on vacation on March 29 for one week; therefore, will miss day [address] Lenz updated and states to delete day 15 and that week will be pt's week off. Start Cycle 5 when she returns. April 11 will be C5 D1 with OV the day prior and labs. Pt aware and PSR to call pt when appt is rescheduled. Kristi Lewis RN documented in this encounter [facility] 03-21-2024 Note [facility] 03-21-2024 History of Presen t illness Narrative Pt states she is going on vacation on March 29 for one week; therefore, will miss day [address] Lenz updated and states to delete day 15 and that week will be pt's week off. Start Cycle 5 when she returns. April 11 will be C5 D1 with OV the day prior and labs. Pt aware and PSR to call pt when appt is rescheduled. 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 2) Remote DVT-- associated. HPI: The patient is a 58-year-old female with a past medical history significant for smoking (quit 06/2022), CAD (08/2021 following mildly symptomatic Covid, developed chest pain first day back to work--IA; PCI x1 stent--ASA and Brilinta (stopped Brilinta after a week due to nausea and diarrhea--took Plavix for a year), remote DVT (first in 1984) and ovarian cancer. Developed change in bowel habits spring 2021. Then developed abdominal pain summer 2021. Admitted [facility] via ED 06/20/2022. Per admitting hospitalist then onset 04/2022 ongoing persistent dull aching with occasional sharp stabbing periumbical abdominal pain, rated 2-5/10 in severity with nausea without emesis and night sweats with no diarrhea and normal once daily in AM bowel movements with PCP evaluation with outpatient US which was reportedly normal with ED evaluation 06/13/[address] A/P w/ reported gastritis and ascites and normal labs with discharge to home with follow-up PCP directed 06/17/22 MRI with moderate volume ascites with two thin walled well defined fluid collections without enhancement (1.2 x 0.8, 3.6 x 2.7 cm) in the LLQ with referral made to GI Dr. Rajput who now re-presents to the [facility] ED on 06/20/22 history of ongoing constant abdominal pain in the similar region but worsened, rated pain for the last 1-2 weeks 8-10 in severity with ~9 lb weight loss with decreased oral intake and ongoing night sweats. US 06/22/2022 at [facility]: MPRESSION: 1. Normal-size anteverted uterus with a hyperechoic 3 mm thick endometrium. 2. No evidence of uterine cyst or solid mass lesions. 3. Normal cervix. 4. Mildly lobulated right ovary measuring 3.5 cm to 2.7 x 2.4 cm without distinct cystic or solid lesions. 5. Left ovary is not visualized. 6. Large amount of fluid or ascites in the cul-de-sac. 7. No evidence of adnexal masses or peritoneal implants. Referred to Dr. Hyatt. Underwent laparoscopy with findings of diffuse carcinomatosis and biopsy at [facility] 06/28/2022. Pathology: PERITONEUM, BIOPSIES - HIGH-GRADE ADENOCARCINOMA. SEE COMMENT. 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 These malignant cells stain positive with CK7, PAX 8, patchy positivity with calretinin and weak focal ER positivity, and negative for CK20, GATA3 and WT1. A p53 demonstrates a null phenotype. 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 SNVs/Indels - TP53 splice site c.782+1G>A Immuno-Oncology Biomarkers - PD-L1 LDT: Not Detected Interpretation: -TP53 (tumor protein P53) encodes a tumor suppressor protein that responds to cellular stresses, including gDNA damage and oncogenic activation, by inducing and modulating downstream anti-tumor responses such as DNA repair, recombination, and apoptosis. Currently, there are no approved therapies that directly target oncogenic alterations in TP53. However, experimental therapies that target and re-activate the transcriptional activity of mutant TP53 have been described and are currently under investigation. Early clinical trials data suggest oncogenic TP53 mutations may predict resistance to cisplatin chemotherapy, MDM2 inhibitors, and CDK4/CDK6 inhibitors. - No pathogenic mutations are present in any of the common homologous recombination repair genes on this panel. Variants of unknown clinical significance are detected in the following genes: ATR and BARD1 (Please see the Variants of Unknown Clinical Significance section, below). As the functional consequences of these variants are undetermined, the clinical utility of PARP inhibitor therapy in this case is uncertain Started on neoadjuvant chemotherapy with carboplatin and paclitaxel. She received 4 cycles prior to undergoing interval debulking surgery on 09/28/2022. Notes indicate had complete gross tumor debulking. Pathology: A. Soft tissue, anterior peritoneum, excision: - Fibroadipose tissue with focal dense fibrosis and rare infiltrating high-grade carcinoma. B. Omentum, excision: - Residual invasive high-grade adenocarcinoma and therapy-related changes present. Comment: The majority of tumor in all the specimens (A - E) has the appearance of high-grade serous carcinoma. Focal areas of tumor in parts B and D show clear cells features. However, by immunohistochemistry, these cells are negative for napsin-A, making clear cell carcinoma less likely. WT-1 is also negative. C. Uterus, cervix, bilateral fallopian tubes and ovaries, hysterectomy with bilateral salpingo-oophorectomy: - Residual high-grade carcinoma involving bilateral ovaries and fallopian tubes. - Uterus with inactive endometrium, and unremarkable myometrium and cervix. D. Small bowel nodule, excision: - High-grade carcinoma and therapy-related changes including fibrinous necrosis. E. Appendix, appendectomy: - Rare infiltrating carcinoma involving the mesoappendix. - Unremarkable tubular appendix. Completed 2 additional cycles carbo/paclitaxel November 2021. He is here today to discuss maintenance therapy. Patient's CA125 level is 28.2 U/mL.Ran at [facility]. Per Dr. Naranjo's note: Plan: Counseled the patient and her daughter today as far as treatment options. This would include going on a PARP inhibitor, Avastin or observation only. We discussed the fact that she is HRD and BRCA negative. We discussed that there was still an advantage to going on a PARP inhibitor. I did career technical counselor the patient as to the most common side effects of PARP inhibitors. We also discussed some of the more common signs and symptoms of recurrent cancer. The patient would like to start Zejula, will start at the medium dose, will watch CBC weekly for 1 month and then monthly thereafter. Discussed staying on the Zejula until evidence of disease progression or toxicity. ----- Started Zejula 12/20/2022 but developed diarrhea, fatigue, chest pain with palpitations that woke her by 12/22/2022. Saw cardiology 12/23 and was told EKG okay and could retry Zejula. Started on 12/26. 12/28 had blurry vision and couldn't see to drive. Decreased dose to 200 mg daily. 12/30 got palpitations again. Stopped altogether 01/02/2023. Went to [facility] in [place] where evidently CT scan 01/16/23 showed lesions in left lung, liver, and pelvis; it was not known whether these were new as she had no previous scans to compare. PET scan recommended. PET 02/06/2023: IMPRESSION: 1. NECK: * Asymmetric hypermetabolism along the right palatine tonsil, indeterminate. Recommend correlation with direct inspection. * Otherwise no FDG avid neoplastic process. 2. CHEST: * No FDG avid neoplastic process. * 9 mm left upper lobe groundglass/semisolid nodule is not FDG avid and likely represents a primary lung neoplasm along the adenocarcinoma spectrum. 3. ABDOMEN/PELVIS: * No FDG avid neoplastic process. 4. EXTREMITIES/SKELETON: * No suspicious FDG avid osseous lesion. RESULT: Pack Changer (topogram) images: No additional findings. - Mediastinum blood pool activity: Max SUV: 1.8 - Background liver activity: Max SUV: 2.4 HEAD AND NECK: Focal hypermetabolism along the right palatine tonsil (Max SUV 7.6) with associated soft tissue fullness. Physiologic uptake seen in the visualized brain, extraocular muscles, parapharyngeal soft tissues, base of tongue, vocal cords, and salivary glands. No FDG avid cervical lymphadenopathy or mass. No FDG avid thyroid lesion. CHEST: Right chest port terminates in the right atrium. Physiologic uptake in the heart and mediastinum. Lungs and tracheobronchial tree: -0.9 cm left apicoposterior groundglass/semisolid nodule without associated hypermetabolism (Max SUV 0.6). -Additional scattered smaller pulmonary nodules, for example a 4 mm nodule within the posterior right upper lobe, below the resolution of PET. -No hypermetabolic pulmonary lesions. -Emphysema. Note that PET/CT is not sensitive for pulmonary nodules less than 8 mm. Pleura: No FDG avid pleural effusion or pleural mass. Mediastinum and Lymph nodes: 0.9 cm right prevascular node with low level hypermetabolism (Max SUV 2.6), likely reactive. Heart and great vessels: Physiologic uptake in the heart. Chest wall and axilla: No FDG avid axillary lymphadenopathy. ABDOMEN AND PELVIS: Physiologic uptake seen in the and GI tracts. Liver: No FDG avid lesion. Low-attenuation lesion centered between the posterior aspect of the left hepatic lobe and the body of the pancreas, without associated hypermetabolism. Biliary: Gallbladder is unremarkable. Spleen: No FDG avid lesion. No splenomegaly. Pancreas: No FDG avid lesion. Adrenals: No FDG avid lesion. Kidneys: No stones, hydronephrosis, or FDG avid lesions. GI tract: No dilation or focal suspicious FDG avid lesion. Lymph nodes: No FDG avid abdominal or pelvic lymphadenopathy. Left external iliac/obturator node measures 0.7 cm and has expected low level hypermetabolism (Max SUV 1.8). Mesentery/Peritoneum: No ascites or FDG avid mass. Vasculature: Vascular patency cannot be assessed due to lack of IV contrast. Atherosclerotic calcifications of the abdominal aorta and iliac vessels without aneurysm. Pelvis: Hysterectomy. No ascites, focal fluid collection, or hypermetabolic lesion. Abdominopelvic wall: Postsurgical changes along the ventral pelvic wall with expected low level hypermetabolism. BONES AND EXTREMITIES: No suspicious FDG avid osseous lesion. The imaged portions of the skeleton demonstrates age-related degenerative changes. No destructive osseous lesions. Previous therapy: 1) Carboplatin and paclitaxel x4 cycles. 2) Interval debulking surgery 09/28/2022 3) Carboplatin and paclitaxel x2 cycles. Completed 11/2022. 4) Zejula. Did not tolerate due to side effects (see above). Post op had abdominal pain (incisional pain?) and saw palliative care and was prescribed gabapentin which helped significantly. Now has mild ghost pain on occasion and continues gabapentin to help her sleep--Tried stopping and significant flare of anxiety. Has had buproprion, Vistaril and Effexor from PCP in the past. Tried 0.5 mg lorazepam for PET and it made her very sedate. Quit smoking at time of ovarian cancer diagnosis. Has episodic dyspnea---can happen at rest or with exertion but never consistently. However she noticed a gradual worsening of BORJAS. No further palpitations. No exertional chest pain/pressure. Saw Dr. Scruggs, shovel oiler at [facility]: The preferred approach would be transthoracic needle aspiration under CT scan guidance. Since she has no blebs within 3 cm of the lesion, I believe her risk of procedure would be between 5 and 15% chance of pneumothorax. If the lesion is a lung primary, there is no outcome difference between the biopsy now and waiting 3 months to watch behavior, biopsying it if it enlarges in 3 months. If it is an ovarian metastasis, the best approach would be to biopsy the PET positive tonsillar enlargement, treat that, and observe the behavior of the lung lesion. If it is an ovarian metastasis and responds to treatment, and recedes on her next CAT scan, we will have avoided a biopsy. -I therefore recommend that her tonsil lesion be biopsied by ENT (first visit with Dr. Gregory tomorrow), and take a watchful waiting approach regarding the left upper lobe lesion for now, to readdress it in 3 months. Both of these options were discussed with the patient, she was given the option to biopsy now, and we agreed that it may be more prudent and would not change the outcome of a small lung lesion to wait for 3 months on the lung lesion biopsy. -Meanwhile we will evaluate her COPD, she has excellent functional status, and we will add bronchodilators if necessary. Underwent b/l tonsillectomy. No malignancy. 5) Gemcitabine/carboplatin/bevacizu mab. Cycle #1 began 05/12/2023. Was seen in the ED on 05/08 for worsening shortness of breath. Found to have increasing right pleural effusion. She underwent thoracentesis in which 80 cc of cloudy chloe fluid was removed. 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 6) Doxil and bevacizumab 7) Pemetrexed. Current therapy: 1) Abraxane. Presents for ongoing oncologic management. Interim history: I felt better in the last month than I've felt in long time. Verified today: No abdominal pain. Appetite very good. Mild fingertip numbness. Doesn't bother her. Can type and perform other fine motor tasks. No nausea. Working full-time. PMH, medications and allergies personally reviewed by me today. Any changes documented in appropriate section. Social History Tobacco Use Smoking status: Former Packs/day: 0.50 Years: 40.00 Additional pack years: 0.00 Total pack years: 20.00 Types: Cigarettes Quit date: 06/23/2022 Years since quittin.7 Smokeless tobacco: Never Vaping Use Vaping Use: Never used Substance Use Topics Alcohol use: No Drug use: No Family History Problem Relation Age of Onset Thyroid Mother Hypertension Father Heart Father Thyroid Sister Half-sister other (CHF) Sister Thyroid Sister Half-sister Colon Cancer Sister Thyroid Sister Half-sister Hypertension Brother Cancer Maternal Grandmother OVARIAN Hypertension Maternal Grandfather Cancer Maternal Grandfather LUNG Lung Cancer Paternal Grandmother ROS: Constitutional: Denies episodes of fever and night sweats. Neuro: Denies vertigo, dizziness and imbalance. HEENT: No recent change in voice, vision or hearing. Resp: See HPI. CVS: No exertional chest pain or pressure. No lower extremity swelling or edema. GI: See HPI. : Denies dysuria or gross hematuria. Endo: Denies hot flashes. Denies polyuria and polydipsia. Denies heat and cold intolerance. Musculoskeletal: No bone, back, joint and muscular pain. Derm: Denies rash. Heme: Denies unusual bleeding and unexplained bruising. Psych: Anxiety--improved on Cymbalta. PHYSICAL EXAM: Vitals: Blood pressure 123/82, pulse 81, temperature 36.6 C (97.8 F), temperature source Temporal, weight 51 kg (112 lb 8 oz), last menstrual period 03/23/2012, SpO2 100%. Well-appearing and in no acute distress. EYES: Sclerae are anicteric bilaterally. LYMPHATIC: There is no axillary adenopathy. [place] LN left axilla. RESPIRATORY: Inspiratory vesicular breath sounds are of diminished intensity in all cruz. Diminished right base anteriorly--stable. CARDIOVASCULAR: Rhythm is regular. ABDOMEN: The upper abdomen is non-distended. No hyperactive bowel sounds No tenderness today. No fluid wave. Extremities: No swelling or edema. SKIN: No jaundice. LABS: Latest Ref Rng 03/20/2024 WBC 3.70 - 11.00 k/uL 5.22 RBC 3.90 - 5.20 m/uL 4.05 Hemoglobin 11.5 - 15.5 g/dL 11.2 (L) Hematocrit 36.0 - 46.0 % 35.2 (L) MCV 80.0 - 100.0 fL 86.9 MCH 26.0 - 34.0 pg 27.7 MCHC 30.5 - 36.0 g/dL 31.8 RDW-CV 11.5 - 15.0 % 15.7 (H) Platelet Count 150 - 400 k/uL 323 MPV 9.0 - 12.7 fL 9.2 Neut% % 49.0 Abs Neut (ANC) 1.45 - 7.50 k/uL 2.56 Lymph% % 37.0 Abs Lymph 1.00 - 4.00 k/uL 1.93 Clay% % 10.5 Abs Clay <0.87 k/uL 0.55 Eosin% % 2.3 Abs Eosin <0.46 k/uL 0.12 Baso% % 1.0 Abs Baso <0.11 k/uL 0.05 Immature Gran % % 0.2 IMMATURE GRANS (ABS) <0.10 k/uL <0.03 NRBC /100 WBC 0.0 Absolute nRBC <0.01 k/uL <0.01 DTYPE Auto Protein, Total 6.3 - 8.0 g/dL 7.1 Albumin 3.9 - 4.9 g/dL 4.1 Calcium 8.5 - 10.2 mg/dL 9.7 Bilirubin, Total 0.2 - 1.3 mg/dL 0.3 Alkaline Phosphatase 34 - 123 U/L 66 AST 13 - 35 U/L 23 ALT 7 - 38 U/L 18 Glucose 74 - 99 mg/dL 105 (H) BUN 7 - 21 mg/dL 14 Creatinine 0.58 - 0.96 mg/dL 0.81 Sodium 136 - 144 mmol/L 138 Potassium 3.7 - 5.1 mmol/L 4.2 Chloride 98 - 107 mmol/L 106 CO2 22 - 30 mmol/L 25 Anion Gap 8 - 15 mmol/L 7 (L) eGFR >=60 mL/min/1.73m 84 Magnesium 1.7 - 2.3 mg/dL 1.9 PFTs at [facility] 02/17/2023: Forced expiration spirometry demonstrates the presence of a mild large airways obstructive ventilatory defect. There was no significant response to aerosolized bronchodilators. Spirograms are of fair quality and plateau normally. Body plethysmography was performed and revealed lung volumes to be within normal limits. Diffusing capacity by single breath CO was likewise within normal limits. IMPRESSION: Irreversible mild large airways obstructive ventilatory impairment with preserved lung volumes and diffusing capacity. 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 -Genetic testing performed through [facility] [facility]: Negative for BRCA1/2 and 24 other relevant genes. -Caris negative for FOLR1. -She is tolerating Abraxane overall well with no serious or unexpected toxicity. -Recent biopsy of right axillary lymph node was done a week after her first dose and it was nondiagnostic showing only scant lymphoid tissue. -Marked improvement in symptoms. Nice decline in CA125. -Reviewed CBC. Counts allow continued treatment. Reviewed CMP. No concerning abnormalities. -Very nice response and continued palliative benefit from treatment. Neuropathy stable.Benefit of continuing therapy for outweighs risk at this time. Plan: -Continue Abraxane. -Continue folic acid. -CTs in a month or two. 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 Plan: -Continue Cymbalta. (F41.1, C80.1) Anxiety associated with cancer diagnosis (HCC) Assessment: -Cymbalta helped significantly. Plan: -Continue Cymbalta. (O22.30) DVT (deep vein thrombosis) in Assessment: -She had a remote provoked DVT during first in 1984. -Nonetheless she is at increased risk of recurrent VTE given underlying cancer diagnosis. -No clear indication for prophylactic anticoagulation. Discussed monitoring for symptoms. Plan: -Monitor. 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 Plan: -Monitor. Portions of this documentation were copied and pasted from previous office visit notes in order to provide a cohesive continuity of the history. The note has been reviewed and edited and updated as necessary. Bk Lenz DO documented in this encounter [facility] 02-21-2024 Note [facility] 02-21-2024 History of Presen t illness Narrative Oncologic problem(s): 1) 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 2) Remote DVT-- associated. HPI: The patient is a 58-year-old female with a past medical history significant for smoking (quit 06/2022), CAD (08/2021 following mildly symptomatic Covid, developed chest pain first day back to work--[place]; PCI x1 stent--ASA and Brilinta (stopped Brilinta after a week due to nausea and diarrhea--took Plavix for a year), remote DVT (first in 1984) and ovarian cancer. Developed change in bowel habits spring 2021. Then developed abdominal pain summer 2021. Admitted [facility] via ED 06/20/2022. Per admitting hospitalist then onset 04/2022 ongoing persistent dull aching with occasional sharp stabbing periumbical abdominal pain, rated 2-5/10 in severity with nausea without emesis and night sweats with no diarrhea and normal once daily in AM bowel movements with PCP evaluation with outpatient US which was reportedly normal with ED evaluation 06/13/[address] A/P w/ reported gastritis and ascites and normal labs with discharge to home with follow-up PCP directed 06/17/22 MRI with moderate volume ascites with two thin walled well defined fluid collections without enhancement (1.2 x 0.8, 3.6 x 2.7 cm) in the LLQ with referral made to GI Dr. Rajput who now re-presents to the [facility] ED on 06/20/22 history of ongoing constant abdominal pain in the similar region but worsened, rated pain for the last 1-2 weeks 8-10/10 in severity with ~9 lb weight loss with decreased oral intake and ongoing night sweats. US 06/22/2022 at [facility]: MPRESSION: 1. Normal-size anteverted uterus with a hyperechoic 3 mm thick endometrium. 2. No evidence of uterine cyst or solid mass lesions. 3. Normal cervix. 4. Mildly lobulated right ovary measuring 3.5 cm to 2.7 x 2.4 cm without distinct cystic or solid lesions. 5. Left ovary is not visualized. 6. Large amount of fluid or ascites in the cul-de-sac. 7. No evidence of adnexal masses or peritoneal implants. Referred to Dr. Hyatt. Underwent laparoscopy with findings of diffuse carcinomatosis and biopsy at [facility] 06/28/2022. Pathology: PERITONEUM, BIOPSIES - HIGH-GRADE ADENOCARCINOMA. SEE COMMENT. 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 These malignant cells stain positive with CK7, PAX 8, patchy positivity with calretinin and weak focal ER positivity, and negative for CK20, GATA3 and WT1. A p53 demonstrates a null phenotype. 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 SNVs/Indels - TP53 splice site c.782+1G>A Immuno-Oncology Biomarkers - PD-L1 LDT: Not Detected Interpretation: -TP53 (tumor protein P53) encodes a tumor suppressor protein that responds to cellular stresses, including gDNA damage and oncogenic activation, by inducing and modulating downstream anti-tumor responses such as DNA repair, recombination, and apoptosis. Currently, there are no approved therapies that directly target oncogenic alterations in TP53. However, experimental therapies that target and re-activate the transcriptional activity of mutant TP53 have been described and are currently under investigation. Early clinical trials data suggest oncogenic TP53 mutations may predict resistance to cisplatin chemotherapy, MDM2 inhibitors, and CDK4/CDK6 inhibitors. - No pathogenic mutations are present in any of the common homologous recombination repair genes on this panel. Variants of unknown clinical significance are detected in the following genes: ATR and BARD1 (Please see the Variants of Unknown Clinical Significance section, below). As the functional consequences of these variants are undetermined, the clinical utility of PARP inhibitor therapy in this case is uncertain Started on neoadjuvant chemotherapy with carboplatin and paclitaxel. She received 4 cycles prior to undergoing interval debulking surgery on 09/28/2022. Notes indicate had complete gross tumor debulking. Pathology: A. Soft tissue, anterior peritoneum, excision: - Fibroadipose tissue with focal dense fibrosis and rare infiltrating high-grade carcinoma. B. Omentum, excision: - Residual invasive high-grade adenocarcinoma and therapy-related changes present. Comment: The majority of tumor in all the specimens (A - E) has the appearance of high-grade serous carcinoma. Focal areas of tumor in parts B and D show clear cells features. However, by immunohistochemistry, these cells are negative for napsin-A, making clear cell carcinoma less likely. WT-1 is also negative. C. Uterus, cervix, bilateral fallopian tubes and ovaries, hysterectomy with bilateral salpingo-oophorectomy: - Residual high-grade carcinoma involving bilateral ovaries and fallopian tubes. - Uterus with inactive endometrium, and unremarkable myometrium and cervix. D. Small bowel nodule, excision: - High-grade carcinoma and therapy-related changes including fibrinous necrosis. E. Appendix, appendectomy: - Rare infiltrating carcinoma involving the mesoappendix. - Unremarkable tubular appendix. Completed 2 additional cycles carbo/paclitaxel November 2021. He is here today to discuss maintenance therapy. Patient's CA125 level is 28.2 U/mL.Ran at [facility]. Per Dr. Naranjo's note: Plan: Counseled the patient and her daughter today as far as treatment options. This would include going on a PARP inhibitor, Avastin or observation only. We discussed the fact that she is HRD and BRCA negative. We discussed that there was still an advantage to going on a PARP inhibitor. I did career technical counselor the patient as to the most common side effects of PARP inhibitors. We also discussed some of the more common signs and symptoms of recurrent cancer. The patient would like to start Zejula, will start at the medium dose, will watch CBC weekly for 1 month and then monthly thereafter. Discussed staying on the Zejula until evidence of disease progression or toxicity. ----- Started Zejula 12/20/2022 but developed diarrhea, fatigue, chest pain with palpitations that woke her by 12/22/2022. Saw cardiology 12/23 and was told EKG okay and could retry Zejula. Started on 12/26. 12/28 had blurry vision and couldn't see to drive. Decreased dose to 200 mg daily. 12/30 got palpitations again. Stopped altogether 01/02/2023. Went to [facility] in [place] where evidently CT scan 01/16/23 showed lesions in left lung, liver, and pelvis; it was not known whether these were new as she had no previous scans to compare. PET scan recommended. PET 02/06/2023: IMPRESSION: 1. NECK: * Asymmetric hypermetabolism along the right palatine tonsil, indeterminate. Recommend correlation with direct inspection. * Otherwise no FDG avid neoplastic process. 2. CHEST: * No FDG avid neoplastic process. * 9 mm left upper lobe groundglass/semisolid nodule is not FDG avid and likely represents a primary lung neoplasm along the adenocarcinoma spectrum. 3. ABDOMEN/PELVIS: * No FDG avid neoplastic process. 4. EXTREMITIES/SKELETON: * No suspicious FDG avid osseous lesion. RESULT: Pack Changer (topogram) images: No additional findings. - Mediastinum blood pool activity: Max SUV: 1.8 - Background liver activity: Max SUV: 2.4 HEAD AND NECK: Focal hypermetabolism along the right palatine tonsil (Max SUV 7.6) with associated soft tissue fullness. Physiologic uptake seen in the visualized brain, extraocular muscles, parapharyngeal soft tissues, base of tongue, vocal cords, and salivary glands. No FDG avid cervical lymphadenopathy or mass. No FDG avid thyroid lesion. CHEST: Right chest port terminates in the right atrium. Physiologic uptake in the heart and mediastinum. Lungs and tracheobronchial tree: -0.9 cm left apicoposterior groundglass/semisolid nodule without associated hypermetabolism (Max SUV 0.6). -Additional scattered smaller pulmonary nodules, for example a 4 mm nodule within the posterior right upper lobe, below the resolution of PET. -No hypermetabolic pulmonary lesions. -Emphysema. Note that PET/CT is not sensitive for pulmonary nodules less than 8 mm. Pleura: No FDG avid pleural effusion or pleural mass. Mediastinum and Lymph nodes: 0.9 cm right prevascular node with low level hypermetabolism (Max SUV 2.6), likely reactive. Heart and great vessels: Physiologic uptake in the heart. Chest wall and axilla: No FDG avid axillary lymphadenopathy. ABDOMEN AND PELVIS: Physiologic uptake seen in the and GI tracts. Liver: No FDG avid lesion. Low-attenuation lesion centered between the posterior aspect of the left hepatic lobe and the body of the pancreas, without associated hypermetabolism. Biliary: Gallbladder is unremarkable. Spleen: No FDG avid lesion. No splenomegaly. Pancreas: No FDG avid lesion. Adrenals: No FDG avid lesion. Kidneys: No stones, hydronephrosis, or FDG avid lesions. GI tract: No dilation or focal suspicious FDG avid lesion. Lymph nodes: No FDG avid abdominal or pelvic lymphadenopathy. Left external iliac/obturator node measures 0.7 cm and has expected low level hypermetabolism (Max SUV 1.8). Mesentery/Peritoneum: No ascites or FDG avid mass. Vasculature: Vascular patency cannot be assessed due to lack of IV contrast. Atherosclerotic calcifications of the abdominal aorta and iliac vessels without aneurysm. Pelvis: Hysterectomy. No ascites, focal fluid collection, or hypermetabolic lesion. Abdominopelvic wall: Postsurgical changes along the ventral pelvic wall with expected low level hypermetabolism. BONES AND EXTREMITIES: No suspicious FDG avid osseous lesion. The imaged portions of the skeleton demonstrates age-related degenerative changes. No destructive osseous lesions. Previous therapy: 1) Carboplatin and paclitaxel x4 cycles. 2) Interval debulking surgery 09/28/2022 3) Carboplatin and paclitaxel x2 cycles. Completed 11/2022. 4) Zejula. Did not tolerate due to side effects (see above). Post op had abdominal pain (incisional pain?) and saw palliative care and was prescribed gabapentin which helped significantly. Now has mild ghost pain on occasion and continues gabapentin to help her sleep--Tried stopping and significant flare of anxiety. Has had buproprion, Vistaril and Effexor from PCP in the past. Tried 0.5 mg lorazepam for PET and it made her very sedate. Quit smoking at time of ovarian cancer diagnosis. Has episodic dyspnea---can happen at rest or with exertion but never consistently. However she noticed a gradual worsening of BORJAS. No further palpitations. No exertional chest pain/pressure. Saw Dr. Scruggs, shovel oiler at [facility]: The preferred approach would be transthoracic needle aspiration under CT scan guidance. Since she has no blebs within 3 cm of the lesion, I believe her risk of procedure would be between 5 and 15% chance of pneumothorax. If the lesion is a lung primary, there is no outcome difference between the biopsy now and waiting 3 months to watch behavior, biopsying it if it enlarges in 3 months. If it is an ovarian metastasis, the best approach would be to biopsy the PET positive tonsillar enlargement, treat that, and observe the behavior of the lung lesion. If it is an ovarian metastasis and responds to treatment, and recedes on her next CAT scan, we will have avoided a biopsy. -I therefore recommend that her tonsil lesion be biopsied by ENT (first visit with Dr. Gregory tomorrow), and take a watchful waiting approach regarding the left upper lobe lesion for now, to readdress it in 3 months. Both of these options were discussed with the patient, she was given the option to biopsy now, and we agreed that it may be more prudent and would not change the outcome of a small lung lesion to wait for 3 months on the lung lesion biopsy. -Meanwhile we will evaluate her COPD, she has excellent functional status, and we will add bronchodilators if necessary. Underwent b/l tonsillectomy. No malignancy. 5) Gemcitabine/carboplatin/bevacizu mab. Cycle #1 began 05/12/2023. Was seen in the ED on 05/08 for worsening shortness of breath. Found to have increasing right pleural effusion. She underwent thoracentesis in which 80 cc of cloudy chloe fluid was removed. 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 6) Doxil and bevacizumab 7) Pemetrexed. Current therapy: 1) Abraxane. Presents for ongoing oncologic management. Interim history: I am feeling much better. No abdominal pain. Appetite very good. Mild fingertip numbness. No nausea. Working full-time. PMH, medications and allergies personally reviewed by me today. Any changes documented in appropriate section. Social History Tobacco Use Smoking status: Former Packs/day: 0.50 Years: 40.00 Additional pack years: 0.00 Total pack years: 20.00 Types: Cigarettes Quit date: 06/23/2022 Years since quittin.6 Smokeless tobacco: Never Vaping Use Vaping Use: Never used Substance Use Topics Alcohol use: No Drug use: No Family History Problem Relation Age of Onset Thyroid Mother Hypertension Father Heart Father Thyroid Sister Half-sister other (CHF) Sister Thyroid Sister Half-sister Colon Cancer Sister Thyroid Sister Half-sister Hypertension Brother Cancer Maternal Grandmother OVARIAN Hypertension Maternal Grandfather Cancer Maternal Grandfather LUNG Lung Cancer Paternal Grandmother ROS: Constitutional: Denies episodes of fever and night sweats. Neuro: Denies vertigo, dizziness and imbalance. HEENT: No recent change in voice, vision or hearing. Resp: See HPI. CVS: No exertional chest pain or pressure. No lower extremity swelling or edema. GI: See HPI. : Denies dysuria or gross hematuria. Endo: Denies hot flashes. Denies polyuria and polydipsia. Denies heat and cold intolerance. Musculoskeletal: No bone, back, joint and muscular pain. Derm: Denies rash. Heme: Denies unusual bleeding and unexplained bruising. Psych: Anxiety--improved on Cymbalta. PHYSICAL EXAM: Vitals: Blood pressure 114/72, pulse 80, temperature 36.3 C (97.4 F), temperature source Temporal, weight 49.7 kg (109 lb 8 oz), last menstrual period 03/23/2012, SpO2 100%. Well-appearing and in no acute distress. EYES: Sclerae are anicteric bilaterally. LYMPHATIC: There is NO palpable adenopathy. RESPIRATORY: Inspiratory vesicular breath sounds are of diminished intensity in all cruz. Diminished right base anteriorly--stable. CARDIOVASCULAR: Rhythm is regular. ABDOMEN: The upper abdomen is non-distended. No hyperactive bowel sounds No tenderness today. No fluid wave. Extremities: No swelling or edema. SKIN: No jaundice. LABS: Latest Ref Rng 02/21/2024 WBC 3.70 - 11.00 k/uL 7.65 RBC 3.90 - 5.20 m/uL 4.03 Hemoglobin 11.5 - 15.5 g/dL 11.3 (L) Hematocrit 36.0 - 46.0 % 35.5 (L) MCV 80.0 - 100.0 fL 88.1 MCH 26.0 - 34.0 pg 28.0 MCHC 30.5 - 36.0 g/dL 31.8 RDW-CV 11.5 - 15.0 % 15.1 (H) Platelet Count 150 - 400 k/uL 328 MPV 9.0 - 12.7 fL 9.2 Neut% % 63.5 Abs Neut (ANC) 1.45 - 7.50 k/uL 4.86 Lymph% % 23.1 Abs Lymph 1.00 - 4.00 k/uL 1.77 Clay% % 10.7 Abs Clay <0.87 k/uL 0.82 Eosin% % 1.6 Abs Eosin <0.46 k/uL 0.12 Baso% % 0.7 Abs Baso <0.11 k/uL 0.05 Immature Gran % % 0.4 IMMATURE GRANS (ABS) <0.10 k/uL 0.03 NRBC /100 WBC 0.0 Absolute nRBC <0.01 k/uL <0.01 DTYPE Auto Protein, Total 6.3 - 8.0 g/dL 7.3 Albumin 3.9 - 4.9 g/dL 4.0 Calcium 8.5 - 10.2 mg/dL 9.8 Bilirubin, Total 0.2 - 1.3 mg/dL 0.2 Alkaline Phosphatase 34 - 123 U/L 68 AST 13 - 35 U/L 20 ALT 7 - 38 U/L 17 Glucose 74 - 99 mg/dL 109 (H) BUN 7 - 21 mg/dL 14 Creatinine 0.58 - 0.96 mg/dL 0.78 Sodium 136 - 144 mmol/L 139 Potassium 3.7 - 5.1 mmol/L 4.4 Chloride 97 - 105 mmol/L 105 CO2 22 - 30 mmol/L 27 Anion Gap 9 - 18 mmol/L 7 (L) eGFR >=60 mL/min/1.73m 88 Magnesium 1.7 - 2.3 mg/dL 1.9 PFTs at [facility] 02/17/2023: Forced expiration spirometry demonstrates the presence of a mild large airways obstructive ventilatory defect. There was no significant response to aerosolized bronchodilators. Spirograms are of fair quality and plateau normally. Body plethysmography was performed and revealed lung volumes to be within normal limits. Diffusing capacity by single breath CO was likewise within normal limits. IMPRESSION: Irreversible mild large airways obstructive ventilatory impairment with preserved lung volumes and diffusing capacity. 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 -Genetic testing performed through [facility]: Negative for BRCA1/2 and 24 other relevant genes. -Caris negative for FOLR1. -She is tolerating Abraxane overall well with no serious or unexpected toxicity. -Recent biopsy of right axillary lymph node was done a week after her first dose and it was nondiagnostic showing only scant lymphoid tissue. -Marked improvement in symptoms. Nice decline in CA125. -Reviewed CBC. Counts allow continued treatment. Reviewed CMP. No concerning abnormalities. -Very nice palliative benefit from treatment despite minimal worsening of fingertip neuropathy. Benefit of continuing therapy for outweighs risk at this time. Plan: -Continue Abraxane. -Continue folic acid. 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 Plan: -Continue Cymbalta. (F41.1, C80.1) Anxiety associated with cancer diagnosis (HCC) Assessment: -Cymbalta helped significantly. Plan: -Continue Cymbalta. (O22.30) DVT (deep vein thrombosis) in Assessment: -She had a remote provoked DVT during first in 1984. -Nonetheless she is at increased risk of recurrent VTE given underlying cancer diagnosis. -No clear indication for prophylactic anticoagulation. Discussed monitoring for symptoms. Plan: -Monitor. 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 Plan: -Monitor. Portions of this documentation were copied and pasted from previous office visit notes in order to provide a cohesive continuity of the history. The note has been reviewed and edited and updated as necessary. Bk Lenz DO documented in this encounter [facility] 01-24-2024 Note [facility] 01-24-2024 History of Presen t illness Narrative Evelyn Mccabe 01/24/2024 1965 Oncologic problem(s): 1) 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 2) Remote DVT-- associated. HPI: The patient is a 58-year-old female with a past medical history significant for smoking (quit 06/2022), CAD (08/2021 following mildly symptomatic Covid, developed chest pain first day back to work--[place]; PCI x1 stent--ASA and Brilinta (stopped Brilinta after a week due to nausea and diarrhea--took Plavix for a year), remote DVT (first in 1984) and ovarian cancer. Developed change in bowel habits spring 2021. Then developed abdominal pain summer 2021. Admitted [facility] via ED 06/20/2022. Per admitting hospitalist then onset 04/2022 ongoing persistent dull aching with occasional sharp stabbing periumbical abdominal pain, rated 2-5/10 in severity with nausea without emesis and night sweats with no diarrhea and normal once daily in AM bowel movements with PCP evaluation with outpatient US which was reportedly normal with ED evaluation 06/13/[address] A/P w/ reported gastritis and ascites and normal labs with discharge to home with follow-up PCP directed 06/17/22 MRI with moderate volume ascites with two thin walled well defined fluid collections without enhancement (1.2 x 0.8, 3.6 x 2.7 cm) in the LLQ with referral made to GI Dr. Rajput who now re-presents to the [facility] ED on 06/20/22 history of ongoing constant abdominal pain in the similar region but worsened, rated pain for the last 1-2 weeks 8-10/10 in severity with ~9 lb weight loss with decreased oral intake and ongoing night sweats. US 06/22/2022 at [facility]: MPRESSION: 1. Normal-size anteverted uterus with a hyperechoic 3 mm thick endometrium. 2. No evidence of uterine cyst or solid mass lesions. 3. Normal cervix. 4. Mildly lobulated right ovary measuring 3.5 cm to 2.7 x 2.4 cm without distinct cystic or solid lesions. 5. Left ovary is not visualized. 6. Large amount of fluid or ascites in the cul-de-sac. 7. No evidence of adnexal masses or peritoneal implants. Referred to Dr. Hyatt. Underwent laparoscopy with findings of diffuse carcinomatosis and biopsy at [facility] 06/28/2022. Pathology: PERITONEUM, BIOPSIES - HIGH-GRADE ADENOCARCINOMA. SEE COMMENT. 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 These malignant cells stain positive with CK7, PAX 8, patchy positivity with calretinin and weak focal ER positivity, and negative for CK20, GATA3 and WT1. A p53 demonstrates a null phenotype. 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 SNVs/Indels - TP53 splice site c.782+1G>A Immuno-Oncology Biomarkers - PD-L1 LDT: Not Detected Interpretation: -TP53 (tumor protein P53) encodes a tumor suppressor protein that responds to cellular stresses, including gDNA damage and oncogenic activation, by inducing and modulating downstream anti-tumor responses such as DNA repair, recombination, and apoptosis. Currently, there are no approved therapies that directly target oncogenic alterations in TP53. However, experimental therapies that target and re-activate the transcriptional activity of mutant TP53 have been described and are currently under investigation. Early clinical trials data suggest oncogenic TP53 mutations may predict resistance to cisplatin chemotherapy, MDM2 inhibitors, and CDK4/CDK6 inhibitors. - No pathogenic mutations are present in any of the common homologous recombination repair genes on this panel. Variants of unknown clinical significance are detected in the following genes: ATR and BARD1 (Please see the Variants of Unknown Clinical Significance section, below). As the functional consequences of these variants are undetermined, the clinical utility of PARP inhibitor therapy in this case is uncertain Started on neoadjuvant chemotherapy with carboplatin and paclitaxel. She received 4 cycles prior to undergoing interval debulking surgery on 09/28/2022. Notes indicate had complete gross tumor debulking. Pathology: A. Soft tissue, anterior peritoneum, excision: - Fibroadipose tissue with focal dense fibrosis and rare infiltrating high-grade carcinoma. B. Omentum, excision: - Residual invasive high-grade adenocarcinoma and therapy-related changes present. Comment: The majority of tumor in all the specimens (A - E) has the appearance of high-grade serous carcinoma. Focal areas of tumor in parts B and D show clear cells features. However, by immunohistochemistry, these cells are negative for napsin-A, making clear cell carcinoma less likely. WT-1 is also negative. C. Uterus, cervix, bilateral fallopian tubes and ovaries, hysterectomy with bilateral salpingo-oophorectomy: - Residual high-grade carcinoma involving bilateral ovaries and fallopian tubes. - Uterus with inactive endometrium, and unremarkable myometrium and cervix. D. Small bowel nodule, excision: - High-grade carcinoma and therapy-related changes including fibrinous necrosis. E. Appendix, appendectomy: - Rare infiltrating carcinoma involving the mesoappendix. - Unremarkable tubular appendix. Completed 2 additional cycles carbo/paclitaxel November 2021. He is here today to discuss maintenance therapy. Patient's CA125 level is 28.2 U/mL.Ran at [facility]. Per Dr. Naranjo's note: Plan: Counseled the patient and her daughter today as far as treatment options. This would include going on a PARP inhibitor, Avastin or observation only. We discussed the fact that she is HRD and BRCA negative. We discussed that there was still an advantage to going on a PARP inhibitor. I did career technical counselor the patient as to the most common side effects of PARP inhibitors. We also discussed some of the more common signs and symptoms of recurrent cancer. The patient would like to start Zejula, will start at the medium dose, will watch CBC weekly for 1 month and then monthly thereafter. Discussed staying on the Zejula until evidence of disease progression or toxicity. ----- Started Zejula 12/20/2022 but developed diarrhea, fatigue, chest pain with palpitations that woke her by 12/22/2022. Saw cardiology 12/23 and was told EKG okay and could retry Zejula. Started on 12/26. 12/28 had blurry vision and couldn't see to drive. Decreased dose to 200 mg daily. 12/30 got palpitations again. Stopped altogether 01/02/2023. Went to [facility] in [place] where evidently CT scan 01/16/23 showed lesions in left lung, liver, and pelvis; it was not known whether these were new as she had no previous scans to compare. PET scan recommended. PET 02/06/2023: IMPRESSION: 1. NECK: * Asymmetric hypermetabolism along the right palatine tonsil, indeterminate. Recommend correlation with direct inspection. * Otherwise no FDG avid neoplastic process. 2. CHEST: * No FDG avid neoplastic process. * 9 mm left upper lobe groundglass/semisolid nodule is not FDG avid and likely represents a primary lung neoplasm along the adenocarcinoma spectrum. 3. ABDOMEN/PELVIS: * No FDG avid neoplastic process. 4. EXTREMITIES/SKELETON: * No suspicious FDG avid osseous lesion. RESULT: Pack Changer (topogram) images: No additional findings. - Mediastinum blood pool activity: Max SUV: 1.8 - Background liver activity: Max SUV: 2.4 HEAD AND NECK: Focal hypermetabolism along the right palatine tonsil (Max SUV 7.6) with associated soft tissue fullness. Physiologic uptake seen in the visualized brain, extraocular muscles, parapharyngeal soft tissues, base of tongue, vocal cords, and salivary glands. No FDG avid cervical lymphadenopathy or mass. No FDG avid thyroid lesion. CHEST: Right chest port terminates in the right atrium. Physiologic uptake in the heart and mediastinum. Lungs and tracheobronchial tree: -0.9 cm left apicoposterior groundglass/semisolid nodule without associated hypermetabolism (Max SUV 0.6). -Additional scattered smaller pulmonary nodules, for example a 4 mm nodule within the posterior right upper lobe, below the resolution of PET. -No hypermetabolic pulmonary lesions. -Emphysema. Note that PET/CT is not sensitive for pulmonary nodules less than 8 mm. Pleura: No FDG avid pleural effusion or pleural mass. Mediastinum and Lymph nodes: 0.9 cm right prevascular node with low level hypermetabolism (Max SUV 2.6), likely reactive. Heart and great vessels: Physiologic uptake in the heart. Chest wall and axilla: No FDG avid axillary lymphadenopathy. ABDOMEN AND PELVIS: Physiologic uptake seen in the and GI tracts. Liver: No FDG avid lesion. Low-attenuation lesion centered between the posterior aspect of the left hepatic lobe and the body of the pancreas, without associated hypermetabolism. Biliary: Gallbladder is unremarkable. Spleen: No FDG avid lesion. No splenomegaly. Pancreas: No FDG avid lesion. Adrenals: No FDG avid lesion. Kidneys: No stones, hydronephrosis, or FDG avid lesions. GI tract: No dilation or focal suspicious FDG avid lesion. Lymph nodes: No FDG avid abdominal or pelvic lymphadenopathy. Left external iliac/obturator node measures 0.7 cm and has expected low level hypermetabolism (Max SUV 1.8). Mesentery/Peritoneum: No ascites or FDG avid mass. Vasculature: Vascular patency cannot be assessed due to lack of IV contrast. Atherosclerotic calcifications of the abdominal aorta and iliac vessels without aneurysm. Pelvis: Hysterectomy. No ascites, focal fluid collection, or hypermetabolic lesion. Abdominopelvic wall: Postsurgical changes along the ventral pelvic wall with expected low level hypermetabolism. BONES AND EXTREMITIES: No suspicious FDG avid osseous lesion. The imaged portions of the skeleton demonstrates age-related degenerative changes. No destructive osseous lesions. Previous therapy: 1) Carboplatin and paclitaxel x4 cycles. 2) Interval debulking surgery 09/28/2022 3) Carboplatin and paclitaxel x2 cycles. Completed 11/2022. 4) Zejula. Did not tolerate due to side effects (see above). Post op had abdominal pain (incisional pain?) and saw palliative care and was prescribed gabapentin which helped significantly. Now has mild ghost pain on occasion and continues gabapentin to help her sleep--Tried stopping and significant flare of anxiety. Has had buproprion, Vistaril and Effexor from PCP in the past. Tried 0.5 mg lorazepam for PET and it made her very sedate. Quit smoking at time of ovarian cancer diagnosis. Has episodic dyspnea---can happen at rest or with exertion but never consistently. However she noticed a gradual worsening of BORJAS. No further palpitations. No exertional chest pain/pressure. Saw Dr. Scruggs, shovel oiler at [facility]: The preferred approach would be transthoracic needle aspiration under CT scan guidance. Since she has no blebs within 3 cm of the lesion, I believe her risk of procedure would be between 5 and 15% chance of pneumothorax. If the lesion is a lung primary, there is no outcome difference between the biopsy now and waiting 3 months to watch behavior, biopsying it if it enlarges in 3 months. If it is an ovarian metastasis, the best approach would be to biopsy the PET positive tonsillar enlargement, treat that, and observe the behavior of the lung lesion. If it is an ovarian metastasis and responds to treatment, and recedes on her next CAT scan, we will have avoided a biopsy. -I therefore recommend that her tonsil lesion be biopsied by ENT (first visit with Dr. Gregory tomorrow), and take a watchful waiting approach regarding the left upper lobe lesion for now, to readdress it in 3 months. Both of these options were discussed with the patient, she was given the option to biopsy now, and we agreed that it may be more prudent and would not change the outcome of a small lung lesion to wait for 3 months on the lung lesion biopsy. -Meanwhile we will evaluate her COPD, she has excellent functional status, and we will add bronchodilators if necessary. Underwent b/l tonsillectomy. No malignancy. 5) Gemcitabine/carboplatin/bevacizu mab. Cycle #1 began 05/12/2023. Was seen in the ED on 05/08 for worsening shortness of breath. Found to have increasing right pleural effusion. She underwent thoracentesis in which 80 cc of cloudy chloe fluid was removed. 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 6) Doxil and bevacizumab 7) Pemetrexed. Current therapy: 1) Abraxane. Presents for ongoing oncologic management. Interim history: Estelle Harris presents today for follow up prior to abraxane. She reports feeling generally well. No recent illnesses, fevers, chills or NS. She continues working 40hr/week. Peripheral neuropathy is gradually worsening, tolerable. Had entirely resolved from previous treatments. Abdominal pain always there. Remains stable. Comes and goes, feels better with a good BM. Constipation is generally stable. Miralax was working in addition to stool softeners. Now using MOM prn in addition. Has daily BM but very small amts. Occasional nausea, worse in AM, self resolves after a few hours. Has not tried bentyl. Appetite has returned, foods taste better so now eating more. She expresses concern that her weight it trending up as she had weight gain with initial dx. Denies new aches or pains. No SOB, CP, or palpitations. No FUNES, dizziness, or changes in vision. No changes in bowel or bladder habits. No rash or skin changes. Denies bleeding or bruising. PMH, medications and allergies personally reviewed by me today. Any changes documented in appropriate section. Social History Tobacco Use Smoking status: Former Packs/day: 0.50 Years: 40.00 Additional pack years: 0.00 Total pack years: 20.00 Types: Cigarettes Quit date: 06/23/2022 Years since quittin.5 Smokeless tobacco: Never Vaping Use Vaping Use: Never used Substance Use Topics Alcohol use: No Drug use: No Family History Problem Relation Age of Onset Thyroid Mother Hypertension Father Heart Father Thyroid Sister Half-sister other (CHF) Sister Thyroid Sister Half-sister Colon Cancer Sister Thyroid Sister Half-sister Hypertension Brother Cancer Maternal Grandmother OVARIAN Hypertension Maternal Grandfather Cancer Maternal Grandfather LUNG Lung Cancer Paternal Grandmother ROS: Constitutional: Denies episodes of fever and night sweats. All systems reviewed on 01/24/2024 with pertinent positives and negatives as outlined in the interval history. PHYSICAL EXAM: Vitals: Blood pressure 101/68, pulse 77, temperature 36.3 C (97.3 F), temperature source Temporal, weight 48.5 kg (107 lb), last menstrual period 03/23/2012, SpO2 98%. Well-appearing and in no acute distress. EYES: Sclerae are anicteric bilaterally. RESPIRATORY: Inspiratory vesicular breath sounds are of diminished intensity in all cruz. Diminished right base anteriorly--stable. CARDIOVASCULAR: Rhythm is regular. ABDOMEN: The upper abdomen is non-distended, nontender. No hyperactive bowel sounds No fluid wave, ascites Extremities: No swelling or edema. SKIN: No jaundice. 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 No focal motor weakness. I have performed the physical exam today (01/24/2024) and have edited the note to correlate with current findings. LABORATORY DATA: PFTs at [facility] 02/17/2023: Forced expiration spirometry demonstrates the presence of a mild large airways obstructive ventilatory defect. There was no significant response to aerosolized bronchodilators. Spirograms are of fair quality and plateau normally. Body plethysmography was performed and revealed lung volumes to be within normal limits. Diffusing capacity by single breath CO was likewise within normal limits. IMPRESSION: Irreversible mild large airways obstructive ventilatory impairment with preserved lung volumes and diffusing capacity. 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 -Genetic testing performed through [facility] [facility]: Negative for BRCA1/2 and 24 other relevant genes. -Caris negative for FOLR1. -She is tolerating Abraxane overall well with no serious or unexpected toxicity. -Recent biopsy of right axillary lymph node was done a week after her first dose and it was nondiagnostic showing only scant lymphoid tissue. On exam she has had resolution of axillary adenopathy bilaterally. Discussed plan to continue current therapy. -Abdominal pain/constipation. She is having what sounds to be spasmodic type pain. Plan: -Continue Abraxane, tolerating well -Trial of Bentyl available, Continue laxative regimen as above. Increase senna. -Following with Dr. Romo -Continue folic acid. 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 Plan: -Continue Cymbalta. (F41.1, C80.1) Anxiety associated with cancer diagnosis (HCC) Assessment: -Cymbalta has helped significantly. Stable Plan: -Cymbalta 30 mg daily. (O22.30) DVT (deep vein thrombosis) in Assessment: -She had a remote provoked DVT during first in 1984. -Nonetheless she is at increased risk of recurrent VTE given underlying cancer diagnosis. -No clear indication for prophylactic anticoagulation. Discussed monitoring for symptoms. -no current issues Plan: -Monitor. (N63.0) Breast nodule Assessment: -Imaging revealed simple cyst. Plan: -Annual screening mammogram. Due 05/2024 (J91.0) Malignant pleural effusion (S27.0XXA) Traumatic pneumothorax, initial encounter Assessment: -Chest x-ray demonstrated resolution of pneumothorax. -She is asymptomatic from the effusion at this time, stable on recent scans Plan: -Monitor. RTC as scheduled for tx and follow up Mary Kate Dang APRN.CNP I spent a total of 35 minutes on the date of the service which included preparing to see the patient, [id number] patient care, completing clinical documentation, and obtaining and/or reviewing separately obtained history. Portions of this note including HPI, ROS, impression/plan may have been copied forward as to provide important historical information essential in contributing to medical decision making. Documentation has been reviewed and edited as necessary to support clinical decision making for today's visit and to reflect my own independent evaluation of this patient. documented in this encounter [facility] 01-24-2024 Note [facility] 01-24-2024 History of Presen t illness Narrative Patient is here for IVAD port flush/blood draw per [facility] protocol. IVAD is located in right upper chest. Site cleansed with Chloraprep IVAD accessed with a #20 gauge 3/4 non-coring Gripper needle Flush with 5cc's Normal Saline. Blood Return: Good. 10 cc's blood aspirated and discarded. Blood drawn for CBC and CMP. Flushed with: 20 ml Normal Saline. Non-coring needle removed. Paper tape applied to puncture site. Site negative for redness, edema or tenderness. Patient tolerated procedure well. documented in this encounter [facility] 01-18-2024 Miscellaneous Notes Rescheduled appts and patient informed Patient called stating she is going to be out of town from 01/31 until 02/07. She is scheduled for treatments on 01/31 and 02/07. Please advise if patient is able to have treatments on 01/30 and 02/08. Thank you. documented in this encounter [facility] 01-11-2024 Note HNO ID: [id number] Author: ABRAN DACOSTA RN Service: ? Author Type: Registered Nurse Type: Progress Notes Filed: 01/11/2024 10:07 Note Text: Assessment unchanged from 01/09/[address] Lenz [facility] 01-10-2024 Note [facility] 01-09-2024 Note [facility] 01-04-2024 Miscellaneous Notes Patient is aware of biopsy findings and will continue on treatment and keep OV with Dr. Romo as scheduled. Deanna Ag LPN Dr. Shoemaker completed a biopsy on patient this morning and wanted to inform Dr. Lenz to watch for results within a couple of days. He did not put in Dr. Lenz's name as referring and was unable to add after completed documented in this encounter [facility] 01-02-2024 Miscellaneous Notes Radiology Service Progress Note PATIENT NAME: Evelyn Mccabe DATE OF SERVICE: January 02, 2024 TIME: 9:30 AM PATIENT IDENTITY VERIFICATION COMPLETED USING TWO (2) IDENTIFIERS: Name and Date of confirmed by patient verbally and Name and Date of confirmed by identification band. FALL SCREENING: Has the patient had 2 falls in the last year or 1 fall with injury or currently using an Ambulatory Assistive Device (Walker, Cane, Wheelchair, Crutches, etc.)? No PATIENT GENDER DATA: Female. status: : No status: NO. PATIENT RELEVANT IMPLANT DATA REVIEWED: Not Applicable PATIENT PRESENTS WITH AN IMPLANTABLE OR ATTACHED SENIOR QUALITY CONTROL TECHNICIAN: n/a RADIOLOGY DEPARTMENT: Biopsy and Ultrasound PERIPHERAL IV DATA: Not applicable SIGNED BY: Romaine Shafer January 02, 2024 9:30 AM documented in this encounter [facility] 12-29-2023 Miscellaneous Notes Second attempt, no answer. Left a VM. Chloe Zambrano RN CYCLE 1/DAY 1 POST TREATMENT CALL Today's date: December 29, 2023 Treatment Regimen: Abraxane C1D1 Date: 12/28/23 Called patient, no answer, left a VM requesting a call back from patient. Chloe Zambrano RN Treatment 12/28/2023.She was given IV Zofran that day. Has not been prescribed oral Zofran by this office. Deanna Ag LPN Patient requesting refill for Zofran. Patient had some nausea today and would like some for the weekend. [facility] in [place]. documented in this encounter [facility] 12-28-2023 Note [facility] 12-28-2023 History of Presen t illness Narrative C/o blurred vision and feeling dizzy, stopped pump, VS taken- see flowsheet, after 2 minutes pt. Stated I feel better now. VS continue to be taken, see flow sheet, Dr. Lenz notified and seen pt at chairside, per Dr. Lenz give 25mg of Benadryl IV and 100mg of hydrocortisone IV and continue to monitor. Meds given per DEC, NS running, and continuing to monitor VS. See flowsheet. Dr. Lenz at bedside at 1210 to re-evaluate. Pt educated to take BP at home and if any headaches blurred vision to go to the ER. Pt & daughter verbally states they understands and agreeable to treatment plan. documented in this encounter [facility] 12-25-2023 Miscellaneous Notes ONCOLOGY PATIENT EDUCATION NOTE TOPIC: Chemotherapy, Medications: Abraxane READINESS TO LEARN: COGNITIVE ABILITY: Alert and oriented MOTIVATION TO LEARN: Interested FAMILY SUPPORT: Unable to assess - Family not present INSTRUCTION PROVIDED TO: Patient INSTRUCTION PROVIDED BY: Nurse Coordinator PATIENT LEARNS BEST BY: Multiple Methods FACTORS AFFECTING LEARNING: None PHYSICAL LIMITATIONS AFFECTING LEARNING: None LEARNING RESPONSE DIAGNOSIS: Ovarian Cancer METHOD OF INSTRUCTION: Individual instruction Written instruction - handouts Verbal instruction PATIENT/FAMILY RESPONSE: Verbalizes understanding of: CHEMOTHERAPY-Regimen, toxicity and side effects FOLLOW UP PLAN: Patient instructed to call with any further issues Recommend - Recommend continued instruction and follow up as directed Follow up phone call. Contact information given. SUPPLEMENTAL MATERIAL: Written material was provided at this visit with the following information: - Chemotherapy education was provided by a pharmacist NO - Side effect management information was provided/discussed including but not limited to: anemia, arthralgia, bowel habit changes, diet, electrolyte disturbances, fatigue, infection, nausea/vomitting, peripheral neuropathy, thrombocytopenia YES - Provided important phone numbers and contacts during and after hours. YES - Provided information on symptoms that require immediate assistance. YES - Provided Chemotherapy when to call handouts YES - Preventing infection. YES - Treatment schedule and confirmation of appointment times. YES - Available support groups. YES - The importance of contraception during the course of chemotherapy YES - Neutropenic fever protocol discussed with patient, which included the importance of reporting any fever of 100.4F (38.0C) or greater to the healthcare team as noted on the provided wallet card and/or magnet. YES Time Spent: 20 minutes REFERRAL (RECOMMENDATION): N/A Chloe Zambrano RN documented in this encounter [facility] 12-21-2023 Miscellaneous Notes Patient called back in wanting to make sure that Dr. Lenz is aware that patient is not getting in to Dr. Romo until 01/16. Please advise re: treatment. Lilliana Choi Patient returned call and acknowledged 01/16 appointment. Lilliana Choi When Patient calls back please inform her about her appt on 01/16 Spoke with Deng this Morning I informed her about when her Biopsy was schedule. She is going to Tell the [facility] and see when they can get Evelyn sooner because both locations are out until February Referral to Dr. Romo- patient is know to him. Scheduled 01/17/24 @3:20 Cancel future pemetrexed.DONE Biopsy right axillary lymph node- [facility] or [facility], 1 st available. First available 01/02/24 @ 8:30 In [facility] Patient voiced and understood OV 1 week after biopsy. 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 2) Remote DVT-- associated. HPI: The patient is a 58-year-old female with a past medical history significant for smoking (quit 06/2022), CAD (08/2021 following mildly symptomatic Covid, developed chest pain first day back to work--IA; PCI x1 stent--ASA and Brilinta (stopped Brilinta after a week due to nausea and diarrhea--took Plavix for a year), remote DVT (first in 1984) and ovarian cancer. Developed change in bowel habits spring 2021. Then developed abdominal pain summer 2021. Admitted [facility] via ED 06/20/2022. Per admitting hospitalist then onset 04/2022 ongoing persistent dull aching with occasional sharp stabbing periumbical abdominal pain, rated 2-5/10 in severity with nausea without emesis and night sweats with no diarrhea and normal once daily in AM bowel movements with PCP evaluation with outpatient US which was reportedly normal with ED evaluation 06/13/[address] A/P w/ reported gastritis and ascites and normal labs with discharge to home with follow-up PCP directed 06/17/22 MRI with moderate volume ascites with two thin walled well defined fluid collections without enhancement (1.2 x 0.8, 3.6 x 2.7 cm) in the LLQ with referral made to GI Dr. Rajput who now re-presents to the [facility] ED on 06/20/22 history of ongoing constant abdominal pain in the similar region but worsened, rated pain for the last 1-2 weeks -07/25 in severity with ~9 lb weight loss with decreased oral intake and ongoing night sweats. US 06/22/2022 at [facility]: MPRESSION: 1. Normal-size anteverted uterus with a hyperechoic 3 mm thick endometrium. 2. No evidence of uterine cyst or solid mass lesions. 3. Normal cervix. 4. Mildly lobulated right ovary measuring 3.5 cm to 2.7 x 2.4 cm without distinct cystic or solid lesions. 5. Left ovary is not visualized. 6. Large amount of fluid or ascites in the cul-de-sac. 7. No evidence of adnexal masses or peritoneal implants. Referred to Dr. Hyatt. Underwent laparoscopy with findings of diffuse carcinomatosis and biopsy at [facility] 06/28/2022. Pathology: PERITONEUM, BIOPSIES - HIGH-GRADE ADENOCARCINOMA. SEE COMMENT. 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 These malignant cells stain positive with CK7, PAX 8, patchy positivity with calretinin and weak focal ER positivity, and negative for CK20, GATA3 and WT1. A p53 demonstrates a null phenotype. 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 SNVs/Indels - TP53 splice site c.782+1G>A Immuno-Oncology Biomarkers - PD-L1 LDT: Not Detected Interpretation: -TP53 (tumor protein P53) encodes a tumor suppressor protein that responds to cellular stresses, including gDNA damage and oncogenic activation, by inducing and modulating downstream anti-tumor responses such as DNA repair, recombination, and apoptosis. Currently, there are no approved therapies that directly target oncogenic alterations in TP53. However, experimental therapies that target and re-activate the transcriptional activity of mutant TP53 have been described and are currently under investigation. Early clinical trials data suggest oncogenic TP53 mutations may predict resistance to cisplatin chemotherapy, MDM2 inhibitors, and CDK4/CDK6 inhibitors. - No pathogenic mutations are present in any of the common homologous recombination repair genes on this panel. Variants of unknown clinical significance are detected in the following genes: ATR and BARD1 (Please see the Variants of Unknown Clinical Significance section, below). As the functional consequences of these variants are undetermined, the clinical utility of PARP inhibitor therapy in this case is uncertain Started on neoadjuvant chemotherapy with carboplatin and paclitaxel. She received 4 cycles prior to undergoing interval debulking surgery on 09/28/2022. Notes indicate had complete gross tumor debulking. Pathology: A. Soft tissue, anterior peritoneum, excision: - Fibroadipose tissue with focal dense fibrosis and rare infiltrating high-grade carcinoma. B. Omentum, excision: - Residual invasive high-grade adenocarcinoma and therapy-related changes present. Comment: The majority of tumor in all the specimens (A - E) has the appearance of high-grade serous carcinoma. Focal areas of tumor in parts B and D show clear cells features. However, by immunohistochemistry, these cells are negative for napsin-A, making clear cell carcinoma less likely. WT-1 is also negative. C. Uterus, cervix, bilateral fallopian tubes and ovaries, hysterectomy with bilateral salpingo-oophorectomy: - Residual high-grade carcinoma involving bilateral ovaries and fallopian tubes. - Uterus with inactive endometrium, and unremarkable myometrium and cervix. D. Small bowel nodule, excision: - High-grade carcinoma and therapy-related changes including fibrinous necrosis. E. Appendix, appendectomy: - Rare infiltrating carcinoma involving the mesoappendix. - Unremarkable tubular appendix. Completed 2 additional cycles carbo/paclitaxel November 2021. He is here today to discuss maintenance therapy. Patient's CA125 level is 28.2 U/mL.Ran at [facility]. Per Dr. Naranjo's note: Plan: Counseled the patient and her daughter today as far as treatment options. This would include going on a PARP inhibitor, Avastin or observation only. We discussed the fact that she is HRD and BRCA negative. We discussed that there was still an advantage to going on a PARP inhibitor. I did career technical counselor the patient as to the most common side effects of PARP inhibitors. We also discussed some of the more common signs and symptoms of recurrent cancer. The patient would like to start Zejula, will start at the medium dose, will watch CBC weekly for 1 month and then monthly thereafter. Discussed staying on the Zejula until evidence of disease progression or toxicity. ----- Started Zejula 12/20/2022 but developed diarrhea, fatigue, chest pain with palpitations that woke her by 12/22/2022. Saw cardiology 12/23 and was told EKG okay and could retry Zejula. Started on 12/26. 12/28 had blurry vision and couldn't see to drive. Decreased dose to 200 mg daily. 12/30 got palpitations again. Stopped altogether 01/02/2023. [facility] to [facility] in [place] where evidently CT scan 01/16/23 showed lesions in left lung, liver, and pelvis; it was not known whether these were new as she had no previous scans to compare. PET scan recommended. PET 02/06/2023: IMPRESSION: 1. NECK: * Asymmetric hypermetabolism along the right palatine tonsil, indeterminate. Recommend correlation with direct inspection. * Otherwise no FDG avid neoplastic process. 2. CHEST: * No FDG avid neoplastic process. * 9 mm left upper lobe groundglass/semisolid nodule is not FDG avid and likely represents a primary lung neoplasm along the adenocarcinoma spectrum. 3. ABDOMEN/PELVIS: * No FDG avid neoplastic process. 4. EXTREMITIES/SKELETON: * No suspicious FDG avid osseous lesion. RESULT: Pack Changer (topogram) images: No additional findings. - Mediastinum blood pool activity: Max SUV: 1.8 - Background liver activity: Max SUV: 2.4 HEAD AND NECK: Focal hypermetabolism along the right palatine tonsil (Max SUV 7.6) with associated soft tissue fullness. Physiologic uptake seen in the visualized brain, extraocular muscles, parapharyngeal soft tissues, base of tongue, vocal cords, and salivary glands. No FDG avid cervical lymphadenopathy or mass. No FDG avid thyroid lesion. CHEST: Right chest port terminates in the right atrium. Physiologic uptake in the heart and mediastinum. Lungs and tracheobronchial tree: -0.9 cm left apicoposterior groundglass/semisolid nodule without associated hypermetabolism (Max SUV 0.6). -Additional scattered smaller pulmonary nodules, for example a 4 mm nodule within the posterior right upper lobe, below the resolution of PET. -No hypermetabolic pulmonary lesions. -Emphysema. Note that PET/CT is not sensitive for pulmonary nodules less than 8 mm. Pleura: No FDG avid pleural effusion or pleural mass. Mediastinum and Lymph nodes: 0.9 cm right prevascular node with low level hypermetabolism (Max SUV 2.6), likely reactive. Heart and great vessels: Physiologic uptake in the heart. Chest wall and axilla: No FDG avid axillary lymphadenopathy. ABDOMEN AND PELVIS: Physiologic uptake seen in the and GI tracts. Liver: No FDG avid lesion. Low-attenuation lesion centered between the posterior aspect of the left hepatic lobe and the body of the pancreas, without associated hypermetabolism. Biliary: Gallbladder is unremarkable. Spleen: No FDG avid lesion. No splenomegaly. Pancreas: No FDG avid lesion. Adrenals: No FDG avid lesion. Kidneys: No stones, hydronephrosis, or FDG avid lesions. GI tract: No dilation or focal suspicious FDG avid lesion. Lymph nodes: No FDG avid abdominal or pelvic lymphadenopathy. Left external iliac/obturator node measures 0.7 cm and has expected low level hypermetabolism (Max SUV 1.8). Mesentery/Peritoneum: No ascites or FDG avid mass. Vasculature: Vascular patency cannot be assessed due to lack of IV contrast. Atherosclerotic calcifications of the abdominal aorta and iliac vessels without aneurysm. Pelvis: Hysterectomy. No ascites, focal fluid collection, or hypermetabolic lesion. Abdominopelvic wall: Postsurgical changes along the ventral pelvic wall with expected low level hypermetabolism. BONES AND EXTREMITIES: No suspicious FDG avid osseous lesion. The imaged portions of the skeleton demonstrates age-related degenerative changes. No destructive osseous lesions. Previous therapy: 1) Carboplatin and paclitaxel x4 cycles. 2) Interval debulking surgery 09/28/2022 3) Carboplatin and paclitaxel x2 cycles. Completed 11/2022. 4) Zejula. Did not tolerate due to side effects (see above). Post op had abdominal pain (incisional pain?) and saw palliative care and was prescribed gabapentin which helped significantly. Now has mild ghost pain on occasion and continues gabapentin to help her sleep--Tried stopping and significant flare of anxiety. Has had buproprion, Vistaril and Effexor from PCP in the past. Tried 0.5 mg lorazepam for PET and it made her very sedate. Quit smoking at time of ovarian cancer diagnosis. Has episodic dyspnea---can happen at rest or with exertion but never consistently. However she noticed a gradual worsening of BORJAS. No further palpitations. No exertional chest pain/pressure. Saw Dr. Scruggs, shovel oiler at [facility]: The preferred approach would be transthoracic needle aspiration under CT scan guidance. Since she has no blebs within 3 cm of the lesion, I believe her risk of procedure would be between 5 and 15% chance of pneumothorax. If the lesion is a lung primary, there is no outcome difference between the biopsy now and waiting 3 months to watch behavior, biopsying it if it enlarges in 3 months. If it is an ovarian metastasis, the best approach would be to biopsy the PET positive tonsillar enlargement, treat that, and observe the behavior of the lung lesion. If it is an ovarian metastasis and responds to treatment, and recedes on her next CAT scan, we will have avoided a biopsy. -I therefore recommend that her tonsil lesion be biopsied by ENT (first visit with Dr. Gregory tomorrow), and take a watchful waiting approach regarding the left upper lobe lesion for now, to readdress it in 3 months. Both of these options were discussed with the patient, she was given the option to biopsy now, and we agreed that it may be more prudent and would not change the outcome of a small lung lesion to wait for 3 months on the lung lesion biopsy. -Meanwhile we will evaluate her COPD, she has excellent functional status, and we will add bronchodilators if necessary. Underwent b/l tonsillectomy. No malignancy. 5) Gemcitabine/carboplatin/bevacizu mab. Cycle #1 began 05/12/2023. Was seen in the ED on 05/08 for worsening shortness of breath. Found to have increasing right pleural effusion. She underwent thoracentesis in which 80 cc of cloudy chloe fluid was removed. 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 6) Doxil and bevacizumab Current therapy: 1) Pemetrexed. Presents for ongoing oncologic management. Interim history: Her appetite is starting to decline. Gets nauseated if he eats too much. Was having abdominal bloating and distention. Use magnesium citrate. Got relief after that. Abdomen however remains tender. Not short of breath with exertion. No cough. Symptoms from sensory neuropathy stable. PMH, medications and allergies personally reviewed by me today. Any changes documented in appropriate section. Social History Tobacco Use Smoking status: Former Packs/day: 0.50 Years: 40.00 Additional pack years: 0.00 Total pack years: 20.00 Types: Cigarettes Quit date: 06/23/2022 Years since quittin.4 Smokeless tobacco: Never Vaping Use Vaping Use: Never used Substance Use Topics Alcohol use: No Drug use: No Family History Problem Relation Age of Onset Thyroid Mother Hypertension Father Heart Father Thyroid Sister Half-sister other (CHF) Sister Thyroid Sister Half-sister Colon Cancer Sister Thyroid Sister Half-sister Hypertension Brother Cancer Maternal Grandmother OVARIAN Hypertension Maternal Grandfather Cancer Maternal Grandfather LUNG Lung Cancer Paternal Grandmother ROS: Constitutional: Denies episodes of fever and night sweats. Neuro: Denies vertigo, dizziness and imbalance. HEENT: No recent change in voice, vision or hearing. Resp: See HPI. CVS: No exertional chest pain or pressure. No lower extremity swelling or edema. GI: See HPI. : Denies dysuria or gross hematuria. Endo: Denies hot flashes. Denies polyuria and polydipsia. Denies heat and cold intolerance. Musculoskeletal: No bone, back, joint and muscular pain. Derm: Denies rash. Heme: Denies unusual bleeding and unexplained bruising. Psych: Anxiety--improved on Cymbalta. PHYSICAL EXAM: Vitals: Blood pressure 117/83, pulse 83, temperature 36.7 C (98 F), weight 48.1 kg (106 lb), last menstrual period 03/23/2012, SpO2 97%. Well-appearing and in no acute distress. EYES: Sclerae are anicteric bilaterally. LYMPHATIC: There is no palpable cervical or supraclavicular adenopathy. Progression of right axillary adenopathy. RESPIRATORY: Inspiratory vesicular breath sounds are of diminished intensity in all cruz. Diminished right base anteriorly--stable. CARDIOVASCULAR: Rhythm is regular. ABDOMEN: The upper abdomen is non-distended. No hyperactive bowel sounds Diffusely tender. No fluid wave. Extremities: No swelling or edema. SKIN: No jaundice. 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 No focal motor weakness. LABORATORY DATA: PFTs at [facility] 02/17/2023: Forced expiration spirometry demonstrates the presence of a mild large airways obstructive ventilatory defect. There was no significant response to aerosolized bronchodilators. Spirograms are of fair quality and plateau normally. Body plethysmography was performed and revealed lung volumes to be within normal limits. Diffusing capacity by single breath CO was likewise within normal limits. IMPRESSION: Irreversible mild large airways obstructive ventilatory impairment with preserved lung volumes and diffusing capacity. 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 -Genetic testing performed through [facility]: Negative for BRCA1/2 and 24 other relevant genes. -Caris negative for FOLR1. -Overall CA125 stable. -Reviewed CT results. PD. -Paclitaxel on a weekly schedule as next therapy. Plan: -Biopsy right axillary lymph node since unusual for ovarian cancer metastasis. -Referral to Dr. Romo. -Continue folic acid. 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 Plan: -Continue Cymbalta. (F41.1, C80.1) Anxiety associated with cancer diagnosis (HCC) Assessment: -Cymbalta has helped significantly. Plan: -Cymbalta 30 mg daily. (O22.30) DVT (deep vein thrombosis) in Assessment: -She had a remote provoked DVT during first in 1984. -Nonetheless she is at increased risk of recurrent VTE given underlying cancer diagnosis. -No clear indication for prophylactic anticoagulation. Discussed monitoring for symptoms. Plan: -Monitor. (N63.0) Breast nodule Assessment: -Imaging revealed simple cyst. Plan: -Annual screening mammogram. 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 -She is asymptomatic from the effusion at this time. Plan: -Monitor. Portions of this documentation were copied and pasted from previous office visit notes in order to provide a cohesive continuity of the history. The note has been reviewed and edited and updated as necessary. 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 Last Alimta treatment was C3 11/30/23 Assessment: GENERALIZED PAIN Where is the pain? Left shoulder, above the ribs, below the breast-when breathing in and out When did you first notice the pain? Right shoulder How intense is the pain when it s at its worst (scale of 1-10)? 3-8/10 How intense is the pain right now (scale of 1-10)? 3 How do you describe the pain: dull and sharp Does the pain radiate anywhere? no Has the pain changed since it started? Yes, started in right shoulder, now in left Is the pain constant or intermittent? Constant What makes it better? No What makes it worse? Laying down at night can be difficult, if she props herself on pillows she is more comfortable. Has full ROM in left arm Have you had this pain before? Reminds her a little of when she had a heart attack but the pain was more in her arm and not in her shoulder If yes, when? August 2020 What are you taking anything for the pain? N/a Are you doing anything else to help with the pain other than medications? (heat, cold, movement, stretching, etc) has tried heat with minimal relief. SOB- denies Cough- had a cough a week prior to her treatment last week. Denies wheezing Denies neck/jaw pain Nausea- on and off comes and goes Indigestion: denies Appetite- fair/decreased- I'm not hungry but I do eat every meal and snacks but I have to really make myself eat Denies trauma Diarrhea- took mag citrate on Monday. Took the whole bottle. Patient still felt abdominal discomfort and didn't think she cleaned herself out. Monday- took MOM. Patient had another BM. Patient still has abdominal discomfort but its lightening up a lot . Patient stated she is having diarrhea now, 2 BM's per day. Patient is also taking stool softeners daily. Abdominal discomfort- on her sides, Dr. Lenz is aware of where its at . Doesn't feel pain just discomfort. Patient stated the discomfort has improved by 50%. Denies fever or chills Patient stated on Monday she developed pain in her right shoulder.Now has constant 3-81/0 dull-sharp pain in her left shoulder and also feels pain above her ribs/underneath her breast when breathing in and out. Aggravating factors: laying down at night, propping herself up onto pillows helps. Denies alleviating factors. Has intermittent nausea, denies fever, chills, SOB, wheezing, cough, jaw/neck pain. Patient had a bad cold a couple weeks ago with a terrible cough. Took mucinex which helped with the cough. Patient had a heart attack 08/2020, stated she had pain in her left arm, not in her shoulder however she is concerned with the pain since she has had it for 4 days. Patient stated she is going to call her lamp stack developer to see if she can get an appointment with them today. Patient does not want to go to the ED but stated something needs to be done today . Patient is asking for Dr. Lenz's opinion on what to do. Recommendations: Per RNCC, patient directed to: Emergency Room due to the issue being urgent. Dr. Lenz prefers [facility]. Patient stated she would rather go to [facility] d/t her lamp stack developer is there. Chloe Zambrano RN December 07, 2023 9:28 AM Spoke with pt. She informs that this past Monday afternoon she started to have discomfort in her left shoulder, rates pain at a 7 or 8 constant when she inhales or exhales, but is not SOB, More excruciating when she lays down , it 's so bad at night she thought about going to the ER. Has a History of heart attack and this concerns her. She prefers not to go to ER unless we feel this is necessary. Also states she is having diarrhea. Informed I would forward this message to career technical counselor and have her give pt. A call [phone]. documented in this encounter [facility] 11-30-2023 Note [facility] 11-30-2023 History of Presen t illness Narrative No changes from yesterday OV visit with Dr. Lenz. Reviewed and agree with assessment from yesterday. Pt agreeable to treatment. documented in this encounter [facility] 11-30-2023 Miscellaneous Notes Completed Check out comments: X-rays today. CT C/A/P few days prior to next OV. As scheduled. documented in this encounter [facility] 11-29-2023 History of Presen t illness Narrative Radiology Service Progress Note PATIENT NAME: Evelyn Mccabe DATE OF SERVICE: November 29, 2023 TIME: 11:59 AM PATIENT IDENTITY VERIFICATION COMPLETED USING TWO (2) IDENTIFIERS: Name and Date of confirmed by patient verbally. FALL SCREENING: Has the patient had 2 falls in the last year or 1 fall with injury or currently using an Ambulatory Assistive Device (Walker, Cane, Wheelchair, Crutches, etc.)? No PATIENT GENDER DATA: Female. status: : No status: NO. PATIENT RELEVANT IMPLANT DATA REVIEWED: Yes PATIENT PRESENTS WITH AN IMPLANTABLE OR ATTACHED SENIOR QUALITY CONTROL TECHNICIAN: No RADIOLOGY DEPARTMENT: General X-ray: Exam(s) Completed: Chest X-Ray Abdomen X-Ray: Abdomen with Upright PERIPHERAL IV DATA: Not applicable SIGNED BY: RT Brianna(R) November 29, 2023 11:59 AM documented in this encounter [facility] 11-29-2023 Miscellaneous Notes X-rays indicate she really needs to clean out her bowels. Recommend 1/2 bottle magnesium citrate. Second 1/2 if bowels not significantly moving in 4 hours after first half bottle. 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 2) Remote DVT-- associated. HPI: The patient is a 58-year-old female with a past medical history significant for smoking (quit 06/2022), CAD (08/2021 following mildly symptomatic Covid, developed chest pain first day back to work--IA; PCI x1 stent--ASA and Brilinta (stopped Brilinta after a week due to nausea and diarrhea--took Plavix for a year), remote DVT (first in 1984) and ovarian cancer. Developed change in bowel habits spring 2021. Then developed abdominal pain summer 2021. Admitted [facility] via ED 06/20/2022. Per admitting hospitalist then onset 04/2022 ongoing persistent dull aching with occasional sharp stabbing periumbical abdominal pain, rated 2-5/10 in severity with nausea without emesis and night sweats with no diarrhea and normal once daily in AM bowel movements with PCP evaluation with outpatient US which was reportedly normal with ED evaluation 06/13/[address] A/P w/ reported gastritis and ascites and normal labs with discharge to home with follow-up PCP directed 06/17/22 MRI with moderate volume ascites with two thin walled well defined fluid collections without enhancement (1.2 x 0.8, 3.6 x 2.7 cm) in the LLQ with referral made to GI Dr. Rajput who now re-presents to the [facility] ED on 06/20/22 history of ongoing constant abdominal pain in the similar region but worsened, rated pain for the last 1-2 weeks -07/25 in severity with ~9 lb weight loss with decreased oral intake and ongoing night sweats. US 06/22/2022 at [facility]: MPRESSION: 1. Normal-size anteverted uterus with a hyperechoic 3 mm thick endometrium. 2. No evidence of uterine cyst or solid mass lesions. 3. Normal cervix. 4. Mildly lobulated right ovary measuring 3.5 cm to 2.7 x 2.4 cm without distinct cystic or solid lesions. 5. Left ovary is not visualized. 6. Large amount of fluid or ascites in the cul-de-sac. 7. No evidence of adnexal masses or peritoneal implants. Referred to Dr. Hyatt. Underwent laparoscopy with findings of diffuse carcinomatosis and biopsy at [facility] 06/28/2022. Pathology: PERITONEUM, BIOPSIES - HIGH-GRADE ADENOCARCINOMA. SEE COMMENT. 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 These malignant cells stain positive with CK7, PAX 8, patchy positivity with calretinin and weak focal ER positivity, and negative for CK20, GATA3 and WT1. A p53 demonstrates a null phenotype. 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 SNVs/Indels - TP53 splice site c.782+1G>A Immuno-Oncology Biomarkers - PD-L1 LDT: Not Detected Interpretation: -TP53 (tumor protein P53) encodes a tumor suppressor protein that responds to cellular stresses, including gDNA damage and oncogenic activation, by inducing and modulating downstream anti-tumor responses such as DNA repair, recombination, and apoptosis. Currently, there are no approved therapies that directly target oncogenic alterations in TP53. However, experimental therapies that target and re-activate the transcriptional activity of mutant TP53 have been described and are currently under investigation. Early clinical trials data suggest oncogenic TP53 mutations may predict resistance to cisplatin chemotherapy, MDM2 inhibitors, and CDK4/CDK6 inhibitors. - No pathogenic mutations are present in any of the common homologous recombination repair genes on this panel. Variants of unknown clinical significance are detected in the following genes: ATR and BARD1 (Please see the Variants of Unknown Clinical Significance section, below). As the functional consequences of these variants are undetermined, the clinical utility of PARP inhibitor therapy in this case is uncertain Started on neoadjuvant chemotherapy with carboplatin and paclitaxel. She received 4 cycles prior to undergoing interval debulking surgery on 09/28/2022. Notes indicate had complete gross tumor debulking. Pathology: A. Soft tissue, anterior peritoneum, excision: - Fibroadipose tissue with focal dense fibrosis and rare infiltrating high-grade carcinoma. B. Omentum, excision: - Residual invasive high-grade adenocarcinoma and therapy-related changes present. Comment: The majority of tumor in all the specimens (A - E) has the appearance of high-grade serous carcinoma. Focal areas of tumor in parts B and D show clear cells features. However, by immunohistochemistry, these cells are negative for napsin-A, making clear cell carcinoma less likely. WT-1 is also negative. C. Uterus, cervix, bilateral fallopian tubes and ovaries, hysterectomy with bilateral salpingo-oophorectomy: - Residual high-grade carcinoma involving bilateral ovaries and fallopian tubes. - Uterus with inactive endometrium, and unremarkable myometrium and cervix. D. Small bowel nodule, excision: - High-grade carcinoma and therapy-related changes including fibrinous necrosis. E. Appendix, appendectomy: - Rare infiltrating carcinoma involving the mesoappendix. - Unremarkable tubular appendix. Completed 2 additional cycles carbo/paclitaxel November 2021. He is here today to discuss maintenance therapy. Patient's CA125 level is 28.2 U/mL.Ran at [facility]. Per Dr. Naranjo's note: Plan: Counseled the patient and her daughter today as far as treatment options. This would include going on a PARP inhibitor, Avastin or observation only. We discussed the fact that she is HRD and BRCA negative. We discussed that there was still an advantage to going on a PARP inhibitor. I did career technical counselor the patient as to the most common side effects of PARP inhibitors. We also discussed some of the more common signs and symptoms of recurrent cancer. The patient would like to start Zejula, will start at the medium dose, will watch CBC weekly for 1 month and then monthly thereafter. Discussed staying on the Zejula until evidence of disease progression or toxicity. ----- Started Zejula 12/20/2022 but developed diarrhea, fatigue, chest pain with palpitations that woke her by 12/22/2022. Saw cardiology 12/23 and was told EKG okay and could retry Zejula. Started on 12/26. 12/28 had blurry vision and couldn't see to drive. Decreased dose to 200 mg daily. 12/30 got palpitations again. Stopped altogether 01/02/2023. Went to [facility] in [place] where evidently CT scan 01/16/23 showed lesions in left lung, liver, and pelvis; it was not known whether these were new as she had no previous scans to compare. PET scan recommended. PET 02/06/2023: IMPRESSION: 1. NECK: * Asymmetric hypermetabolism along the right palatine tonsil, indeterminate. Recommend correlation with direct inspection. * Otherwise no FDG avid neoplastic process. 2. CHEST: * No FDG avid neoplastic process. * 9 mm left upper lobe groundglass/semisolid nodule is not FDG avid and likely represents a primary lung neoplasm along the adenocarcinoma spectrum. 3. ABDOMEN/PELVIS: * No FDG avid neoplastic process. 4. EXTREMITIES/SKELETON: * No suspicious FDG avid osseous lesion. RESULT: Pack Changer (topogram) images: No additional findings. - Mediastinum blood pool activity: Max SUV: 1.8 - Background liver activity: Max SUV: 2.4 HEAD AND NECK: Focal hypermetabolism along the right palatine tonsil (Max SUV 7.6) with associated soft tissue fullness. Physiologic uptake seen in the visualized brain, extraocular muscles, parapharyngeal soft tissues, base of tongue, vocal cords, and salivary glands. No FDG avid cervical lymphadenopathy or mass. No FDG avid thyroid lesion. CHEST: Right chest port terminates in the right atrium. Physiologic uptake in the heart and mediastinum. Lungs and tracheobronchial tree: -0.9 cm left apicoposterior groundglass/semisolid nodule without associated hypermetabolism (Max SUV 0.6). -Additional scattered smaller pulmonary nodules, for example a 4 mm nodule within the posterior right upper lobe, below the resolution of PET. -No hypermetabolic pulmonary lesions. -Emphysema. Note that PET/CT is not sensitive for pulmonary nodules less than 8 mm. Pleura: No FDG avid pleural effusion or pleural mass. Mediastinum and Lymph nodes: 0.9 cm right prevascular node with low level hypermetabolism (Max SUV 2.6), likely reactive. Heart and great vessels: Physiologic uptake in the heart. Chest wall and axilla: No FDG avid axillary lymphadenopathy. ABDOMEN AND PELVIS: Physiologic uptake seen in the and GI tracts. Liver: No FDG avid lesion. Low-attenuation lesion centered between the posterior aspect of the left hepatic lobe and the body of the pancreas, without associated hypermetabolism. Biliary: Gallbladder is unremarkable. Spleen: No FDG avid lesion. No splenomegaly. Pancreas: No FDG avid lesion. Adrenals: No FDG avid lesion. Kidneys: No stones, hydronephrosis, or FDG avid lesions. GI tract: No dilation or focal suspicious FDG avid lesion. Lymph nodes: No FDG avid abdominal or pelvic lymphadenopathy. Left external iliac/obturator node measures 0.7 cm and has expected low level hypermetabolism (Max SUV 1.8). Mesentery/Peritoneum: No ascites or FDG avid mass. Vasculature: Vascular patency cannot be assessed due to lack of IV contrast. Atherosclerotic calcifications of the abdominal aorta and iliac vessels without aneurysm. Pelvis: Hysterectomy. No ascites, focal fluid collection, or hypermetabolic lesion. Abdominopelvic wall: Postsurgical changes along the ventral pelvic wall with expected low level hypermetabolism. BONES AND EXTREMITIES: No suspicious FDG avid osseous lesion. The imaged portions of the skeleton demonstrates age-related degenerative changes. No destructive osseous lesions. Previous therapy: 1) Carboplatin and paclitaxel x4 cycles. 2) Interval debulking surgery 09/28/2022 3) Carboplatin and paclitaxel x2 cycles. Completed 11/2022. 4) Zejula. Did not tolerate due to side effects (see above). Post op had abdominal pain (incisional pain?) and saw palliative care and was prescribed gabapentin which helped significantly. Now has mild ghost pain on occasion and continues gabapentin to help her sleep--Tried stopping and significant flare of anxiety. Has had buproprion, Vistaril and Effexor from PCP in the past. Tried 0.5 mg lorazepam for PET and it made her very sedate. Quit smoking at time of ovarian cancer diagnosis. Has episodic dyspnea---can happen at rest or with exertion but never consistently. However she noticed a gradual worsening of BORJAS. No further palpitations. No exertional chest pain/pressure. Saw Dr. Scruggs, shovel oiler at [facility]: The preferred approach would be transthoracic needle aspiration under CT scan guidance. Since she has no blebs within 3 cm of the lesion, I believe her risk of procedure would be between 5 and 15% chance of pneumothorax. If the lesion is a lung primary, there is no outcome difference between the biopsy now and waiting 3 months to watch behavior, biopsying it if it enlarges in 3 months. If it is an ovarian metastasis, the best approach would be to biopsy the PET positive tonsillar enlargement, treat that, and observe the behavior of the lung lesion. If it is an ovarian metastasis and responds to treatment, and recedes on her next CAT scan, we will have avoided a biopsy. -I therefore recommend that her tonsil lesion be biopsied by ENT (first visit with Dr. Gregory tomorrow), and take a watchful waiting approach regarding the left upper lobe lesion for now, to readdress it in 3 months. Both of these options were discussed with the patient, she was given the option to biopsy now, and we agreed that it may be more prudent and would not change the outcome of a small lung lesion to wait for 3 months on the lung lesion biopsy. -Meanwhile we will evaluate her COPD, she has excellent functional status, and we will add bronchodilators if necessary. Underwent b/l tonsillectomy. No malignancy. 5) Gemcitabine/carboplatin/bevacizu mab. Cycle #1 began 05/12/2023. Was seen in the ED on 05/08 for worsening shortness of breath. Found to have increasing right pleural effusion. She underwent thoracentesis in which 80 cc of cloudy chloe fluid was removed. 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 6) Doxil and bevacizumab Current therapy: 1) Pemetrexed. Presents for ongoing oncologic management. Interim history: Day or two after last cycle, drove to [place] to see daughter. Developed cough on the way down. Dry to start with then got moist. Self resolved after about a week. No other symptoms including fever, URI symptoms. No shortness of breath. Hasn't felt well since. Appetite is good. Some foods taste horrible. More upper abdominal pain/tenderness. More nausea. 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 PMH, medications and allergies personally reviewed by me today. Any changes documented in appropriate section. Social History Tobacco Use Smoking status: Former Packs/day: 0.50 Years: 40.00 Additional pack years: 0.00 Total pack years: 20.00 Types: Cigarettes Quit date: 06/23/2022 Years since quittin.4 Smokeless tobacco: Never Vaping Use Vaping Use: Never used Substance Use Topics Alcohol use: No Drug use: No Family History Problem Relation Age of Onset Thyroid Mother Hypertension Father Heart Father Thyroid Sister Half-sister other (CHF) Sister Thyroid Sister Half-sister Colon Cancer Sister Thyroid Sister Half-sister Hypertension Brother Cancer Maternal Grandmother OVARIAN Hypertension Maternal Grandfather Cancer Maternal Grandfather LUNG Lung Cancer Paternal Grandmother ROS: Constitutional: Denies episodes of fever and night sweats. Neuro: Denies vertigo, dizziness and imbalance. HEENT: No recent change in voice, vision or hearing. Resp: See HPI. CVS: No exertional chest pain or pressure. No lower extremity swelling or edema. GI: See HPI. : Denies dysuria or gross hematuria. Endo: Denies hot flashes. Denies polyuria and polydipsia. Denies heat and cold intolerance. Musculoskeletal: No bone, back, joint and muscular pain. Derm: Denies rash. Heme: Denies unusual bleeding and unexplained bruising. Psych: Anxiety--improved on Cymbalta. PHYSICAL EXAM: Vitals: Blood pressure 152/85, pulse 82, temperature 36.4 C (97.6 F), temperature source Temporal, weight 47.4 kg (104 lb 8 oz), last menstrual period 03/23/2012, SpO2 99%. Well-appearing and in no acute distress. EYES: Sclerae are anicteric bilaterally. LYMPHATIC: There is no palpable cervical or supraclavicular adenopathy. Left axillary adenopathy resolved. Right--One ~1.5 cm. RESPIRATORY: Inspiratory vesicular breath sounds are of diminished intensity in all cruz. Diminished right base anteriorly--stable by exam. CARDIOVASCULAR: Rhythm is regular. ABDOMEN: The upper abdomen is slightly distended. Tympany to percussion. Diffusely tender upper abdomen. No fluid wave. Extremities: No swelling or edema. SKIN: No jaundice. 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 No focal motor weakness. LABORATORY DATA: Component Latest Ref Rng & Units 11/29/2023 WBC 3.70 - 11.00 k/uL 8.72 RBC 3.90 - 5.20 m/uL 3.90 Hemoglobin 11.5 - 15.5 g/dL 11.3 (L) Hematocrit 36.0 - 46.0 % 34.7 (L) MCV 80.0 - 100.0 fL 89.0 MCH 26.0 - 34.0 pg 29.0 MCHC 30.5 - 36.0 g/dL 32.6 RDW-CV 11.5 - 15.0 % 15.4 (H) Platelet Count 150 - 400 k/uL 472 (H) MPV 9.0 - 12.7 fL 9.3 Neut% % 68.2 Abs Neut (ANC) 1.45 - 7.50 k/uL 5.94 Lymph% % 22.1 Abs Lymph 1.00 - 4.00 k/uL 1.93 Clay% % 7.3 Abs Clay <0.87 k/uL 0.64 Eosin% % 1.6 Abs Eosin <0.46 k/uL 0.14 Baso% % 0.6 Abs Baso <0.11 k/uL 0.05 Immature Gran % % 0.2 IMMATURE GRANS (ABS) <0.10 k/uL <0.03 NRBC /100 WBC 0.0 Absolute nRBC <0.01 k/uL <0.01 DTYPE Auto PFTs at [facility] 02/17/2023: Forced expiration spirometry demonstrates the presence of a mild large airways obstructive ventilatory defect. There was no significant response to aerosolized bronchodilators. Spirograms are of fair quality and plateau normally. Body plethysmography was performed and revealed lung volumes to be within normal limits. Diffusing capacity by single breath CO was likewise within normal limits. IMPRESSION: Irreversible mild large airways obstructive ventilatory impairment with preserved lung volumes and diffusing capacity. ASSESSMENT/PLAN: (C56.3) Malignant neoplasm of both ovaries (HCC) (primary encounter diagnosis) (C78.6) Peritoneal carcinomatosis (HCC) Assessment: -KPS is 90-100% -No HRD including BRCA gene mutation. -Genetic testing performed through [employer]: Negative for BRCA1/2 and 24 other relevant genes. -Had progressive disease as evidenced by malignant pleural effusion. -Had echocardiogram 04/2023. -ADDENDUM: Caris negative for FOLR1. -Axillary adenopathy improved and stable. -Overall CA125 stable. -New symptoms of upper abdominal pain and nausea intermittently. -Tolerating pemetrexed well with no unexpected or severe toxicity. -Paclitaxel on a weekly schedule as next therapy. Plan: -Acute abdominal series today. -Chest x-ray today to assess right pleural effusion. -If no evidence of ileus, SBO or increasing effusion then, clear for cycle #3 pemetrexed this week. -Continue folic acid. -Continue dexamethasone. -Continue monitoring CA125 every cycle. -CTs following cycle #3. (I25.10) Coronary artery disease involving [place] coronary artery of [place] heart without angina pectoris (Z95.5) History of coronary artery stent placement Assessment: -Had PCI for IA with one stent placed 08/2021. Post Covid. -Completed dual antiplatelet therapy with ASA and clopidogrel (was intolerant to Brilinta) x1 year. -Now on aspirin alone. -BP normal today. Plan: -Follow-up with cardiology. (J44.9) Chronic obstructive pulmonary disease, unspecified COPD type (HCC) Assessment: -Former smoker. -CT chest revealed many pulmonary emphysematous blebs. Plan: -Follow up with Dr. Scruggs. (R91.1) Incidental lung nodule, greater than or equal to 8mm Assessment: -Incidental finding of 9 mm groundglass/semisolid left upper lobe nodule on recent PET scan. -In retrospect, was present but smaller on CTA done [facility] 07/28/2022. -Appreciate Dr. Scruggs's previous recommendations. Plan: -Monitor with follow up CT. 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 Plan: -Continue Cymbalta. (F41.1, C80.1) Anxiety associated with cancer diagnosis (HCC) Assessment: -Cymbalta has helped significantly. Plan: -Cymbalta 30 mg daily. (O22.30) DVT (deep vein thrombosis) in Assessment: -She had a remote provoked DVT during first in 1984. -Nonetheless she is at increased risk of recurrent VTE given underlying cancer diagnosis. -No clear indication for prophylactic anticoagulation. Discussed monitoring for symptoms. Plan: -Monitor. (N63.0) Breast nodule Assessment: -Imaging revealed simple cyst. Plan: -Annual screening mammogram. 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 -She is asymptomatic from the effusion at this time. -Pleural effusion could cause sequestration of pemetrexed and prolonged toxic effects. None observed right now. Plan: -Chest x-ray today. Portions of this documentation were copied and pasted from previous office visit notes in order to provide a cohesive continuity of the history. The note has been reviewed and edited and updated as necessary. Bk Lenz DO documented in this encounter [facility] 11-29-2023 Note HNO ID: [id number] Author: LEXI BAKER RN Service: ? Author Type: Registered Nurse Type: Progress Notes Filed: 11/29/2023 10:51 Note Text: Pt asked for Port canulation to stay in for tx tomorrow [facility] 11-29-2023 History of Presen t illness Narrative Pt asked for Port canulation to stay in for tx tomorrow documented in this encounter [facility] 11-23-2023 Miscellaneous Notes Thank you. Sched updated Last B12 was 10/05/2023. Deanna Ag LPN Per patient appt notes for lab/port- states B12 every 3rd cycle. Unable to find when patient had last lab for B12. Please advise for future appointment scheduling. Thank you. documented in this encounter [facility] 11-17-2023 Note [facility] 11-17-2023 History of Presen t illness Narrative Oncology Nutrition Therapy Initial Assessment I have communicated my name and active licensure. The patient's identity and physical location were verified at the time of this visit. Either the patient or their legal rental sales representative has been informed of the risks and benefits of -- and alternatives to -- treatment through a remote evaluation and consents to proceed with the evaluation remotely. RECOMMENDED MALNUTRITION DIAGNOSIS: UNABLE TO IDENTIFY MALNUTRITION AT THIS TIME Nutrition Intervention: -Consider meal prepping prior to treatment. - aim for 5-6 small/frequent meals - incorporate lean sources of protein/plant based proteins at meals - Stay well hydrated - sip on fluids throughout the day - start supplementation: Ensure Plus or Complete; Boost Plus times per day - Social work - meals on wheels, supplement programs - Food diary Nutrition Monitoring & Evaluation: PO intake Supplement tolerance Wt status Biochemical Markers Skin integrity Plan of care Patient Condition: Pt presents for nutrition counseling for ovarian cancer with peritoneal metastasis. Pt is currently being treated with none active. Pt denies food allergies/intolerances. Nutrition Assessment: Patient is at risk from a nutritional standpoint. Patient's symptoms are: Good Appetite Wants to gain weight Muscle mass loss Eating too healthy Stomach ache with sweets Taste changes Diet History (24hr recall): Breakfast - oatmeal and activia yogurt, water; 1 cup decaf coffee with cream; tea Snack - Lunch - chicken and brown rice with corn and beans Snack - Dinner - beef roast with carrots, potatoes Snack - apple/carrots; corn flakes or raisin bran Beverages - Alcohol- no Vitamins/Supplements - vit D Ensure Plus - for a year (350 viji) x 2 Eats chicken and fish - uses air gregory Social: in 2019. Pt was very concerned about how to combine the diets given to her by her lamp stack developer and oncologist. Topics addressed: Liberalize diet to include foods that have fat. Try to utilize more unsaturated fats than saturated fats. - dressings, margarines, oils. Include plenty of fruits, vegetables, grains, low-fat dairy, lean meat. Like Mediterranean Diet Educational materials provided: Creative Eating during Illness and Recovery Readiness to Learn: Cognitive ability: Alert and oriented Motivation to learn: Interested Family support: High - Very involved in pt care Instruction provided to: Patient Patient learns best by: Multiple Methods Factors affecting learning: None Physical limitations affecting learning: None Anthropometrics: HEIGHT/WEIGHT/BSA HEIGHT BODY SURFACE AREA WEIGHT 05/09/2023 110 lb 3.7 oz 05/12/2023 1.54 111 lb 05/19/2023 1.53 109 lb 05/31/2023 1.49 104 lb 05/31/2023 1.49 104 lb 06/22/2023 1.51 106 lb 8 oz 06/22/2023 1.51 106 lb 07/12/2023 1.51 106 lb 07/12/2023 1.51 106 lb 07/25/2023 1.51 107 lb 08/10/2023 1.53 108 lb 8 oz 08/25/2023 1.52 108 lb 09/05/2023 1.52 108 lb 09/05/2023 1.52 108 lb 10/05/2023 1.51 106 lb 10/05/2023 1.51 106 lb 10/11/2023 1.5 105 lb 10/19/2023 1.53 108 lb 8 oz 11/08/2023 1.5 105 lb Estimated body mass index is 16.45 kg/m as calculated from the following: Height as of 05/07/23: 170.2 cm (5' 7 ). Weight as of 11/08/23: 47.6 kg (105 lb). Resting Metabolic Rate: 1093 Weight Change: 4.5% IN 6 MO UBW 105-110lbs Dosing Weight: 47 kg Estimated kilocalorie needs: 9491-9652 kilocalories determined by 35-40 kcal/kg Estimated protein needs: 56-94 grams determined by 1.5-2.0 g/kg Dosing weight Estimated fluid needs: 6722-3256 milliliters based on 1 mL per kcal Nutrition Focused Physical Exam: Unable to perform exam due to patient unavailable, will re-attempt during reassessment. Potential Signs of Inflammation: chronic condition Allergies: Bactrim [Sulfamethoxazole-Trimethoprim], Dilaudid [Hydromorphone], Lipitor [Atorvastatin], and Metoprolol Medications: Current Outpatient Medications Medication Sig Dispense Refill senna-docusate (SENNA-S) 8.6-50 mg per tablet Take 2 tablets by mouth two times a day. 120 tablet 2 nitrofurantoin monohydrate and macrocrystal (MACROBID) 100 mg capsule Take 100 mg by mouth two times a day. 2 days left (Patient not taking: Reported on 11/08/2023) folic acid 1 mg tablet Take 1 tablet by mouth once daily. 90 tablet 3 dexAMETHasone (DECADRON) 4 mg tablet Take 1 tablet twice the day prior to and the day after each chemotherapy treatment. 24 tablet 1 DULoxetine (CYMBALTA) 30 mg capsule Take 1 capsule by mouth once daily. 90 capsule 3 aspirin 81 mg chewable tablet Take 1 tablet by mouth daily at bedtime. acetaminophen (TYLENOL) 325 mg tablet Take 650 mg by mouth every 6 hours as needed. ezetimibe (ZETIA) 10 mg tablet Take 10 mg by mouth once daily. Cholecalciferol, Vitamin D3, 50 mcg (2,000 unit) cap Take 5,000 Units by mouth once daily. No current facility-administered medications for this visit. Need for Follow up: TWO WEEKS Referred/Supervised by: Dr. Bk BEAULIEU Billing Type: Initial Assess/15 min 2 units Billed Time: 30 minutes Signed by: Lady Cohen RD, MAMTA documented in this encounter [facility] 11-08-2023 Note [facility] 11-08-2023 Note [facility] 11-07-2023 Note [facility] 10-11-2023 Note [facility] 10-05-2023 Miscellaneous Notes Met with patient and introduced myself. Patient was given a information on [employer] from [employer]. Patient aware a nurse will review on scheduled appointment date. 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 2) Remote DVT-- associated. HPI: The patient is a 58-year-old female with a past medical history significant for smoking (quit 06/2022), CAD (08/2021 following mildly symptomatic Covid, developed chest pain first day back to work--IA; PCI x1 stent--ASA and Brilinta (stopped Brilinta after a week due to nausea and diarrhea--took Plavix for a year), remote DVT (first in 1984) and ovarian cancer. Developed change in bowel habits spring 2021. Then developed abdominal pain summer 2021. Admitted [facility] via ED 06/20/2022. Per admitting hospitalist then onset 04/2022 ongoing persistent dull aching with occasional sharp stabbing periumbical abdominal pain, rated 2-5/10 in severity with nausea without emesis and night sweats with no diarrhea and normal once daily in AM bowel movements with PCP evaluation with outpatient US which was reportedly normal with ED evaluation 06/13/[address] A/P w/ reported gastritis and ascites and normal labs with discharge to home with follow-up PCP directed 06/17/22 MRI with moderate volume ascites with two thin walled well defined fluid collections without enhancement (1.2 x 0.8, 3.6 x 2.7 cm) in the LLQ with referral made to GI Dr. Rajput who now re-presents to the [facility] ED on 06/20/22 history of ongoing constant abdominal pain in the similar region but worsened, rated pain for the last 1-2 weeks 8-10 in severity with ~9 lb weight loss with decreased oral intake and ongoing night sweats. US 06/22/2022 at [facility] HOSPITAL: MPRESSION: 1. Normal-size anteverted uterus with a hyperechoic 3 mm thick endometrium. 2. No evidence of uterine cyst or solid mass lesions. 3. Normal cervix. 4. Mildly lobulated right ovary measuring 3.5 cm to 2.7 x 2.4 cm without distinct cystic or solid lesions. 5. Left ovary is not visualized. 6. Large amount of fluid or ascites in the cul-de-sac. 7. No evidence of adnexal masses or peritoneal implants. Referred to Dr. Hyatt. Underwent laparoscopy with findings of diffuse carcinomatosis and biopsy at [facility] 06/28/2022. Pathology: PERITONEUM, BIOPSIES - HIGH-GRADE ADENOCARCINOMA. SEE COMMENT. 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 These malignant cells stain positive with CK7, PAX 8, patchy positivity with calretinin and weak focal ER positivity, and negative for CK20, GATA3 and WT1. A p53 demonstrates a null phenotype. 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 SNVs/Indels - TP53 splice site c.782+1G>A Immuno-Oncology Biomarkers - PD-L1 LDT: Not Detected Interpretation: -TP53 (tumor protein P53) encodes a tumor suppressor protein that responds to cellular stresses, including gDNA damage and oncogenic activation, by inducing and modulating downstream anti-tumor responses such as DNA repair, recombination, and apoptosis. Currently, there are no approved therapies that directly target oncogenic alterations in TP53. However, experimental therapies that target and re-activate the transcriptional activity of mutant TP53 have been described and are currently under investigation. Early clinical trials data suggest oncogenic TP53 mutations may predict resistance to cisplatin chemotherapy, MDM2 inhibitors, and CDK4/CDK6 inhibitors. - No pathogenic mutations are present in any of the common homologous recombination repair genes on this panel. Variants of unknown clinical significance are detected in the following genes: ATR and BARD1 (Please see the Variants of Unknown Clinical Significance section, below). As the functional consequences of these variants are undetermined, the clinical utility of PARP inhibitor therapy in this case is uncertain Started on neoadjuvant chemotherapy with carboplatin and paclitaxel. She received 4 cycles prior to undergoing interval debulking surgery on 09/28/2022. Notes indicate had complete gross tumor debulking. Pathology: A. Soft tissue, anterior peritoneum, excision: - Fibroadipose tissue with focal dense fibrosis and rare infiltrating high-grade carcinoma. B. Omentum, excision: - Residual invasive high-grade adenocarcinoma and therapy-related changes present. Comment: The majority of tumor in all the specimens (A - E) has the appearance of high-grade serous carcinoma. Focal areas of tumor in parts B and D show clear cells features. However, by immunohistochemistry, these cells are negative for napsin-A, making clear cell carcinoma less likely. WT-1 is also negative. C. Uterus, cervix, bilateral fallopian tubes and ovaries, hysterectomy with bilateral salpingo-oophorectomy: - Residual high-grade carcinoma involving bilateral ovaries and fallopian tubes. - Uterus with inactive endometrium, and unremarkable myometrium and cervix. D. Small bowel nodule, excision: - High-grade carcinoma and therapy-related changes including fibrinous necrosis. E. Appendix, appendectomy: - Rare infiltrating carcinoma involving the mesoappendix. - Unremarkable tubular appendix. Completed 2 additional cycles carbo/paclitaxel November 2021. He is here today to discuss maintenance therapy. Patient's CA125 level is 28.2 U/mL.Ran at [facility]. Per Dr. Naranjo's note: Plan: Counseled the patient and her daughter today as far as treatment options. This would include going on a PARP inhibitor, Avastin or observation only. We discussed the fact that she is HRD and BRCA negative. We discussed that there was still an advantage to going on a PARP inhibitor. I did career technical counselor the patient as to the most common side effects of PARP inhibitors. We also discussed some of the more common signs and symptoms of recurrent cancer. The patient would like to start Zejula, will start at the medium dose, will watch CBC weekly for 1 month and then monthly thereafter. Discussed staying on the Zejula until evidence of disease progression or toxicity. ----- Started Zejula 12/20/2022 but developed diarrhea, fatigue, chest pain with palpitations that woke her by 12/22/2022. Saw cardiology 12/23 and was told EKG okay and could retry Zejula. Started on 12/26. 12/28 had blurry vision and couldn't see to drive. Decreased dose to 200 mg daily. 12/30 got palpitations again. Stopped altogether 01/02/2023. Went to [facility] in [place] where evidently CT scan 01/16/23 showed lesions in left lung, liver, and pelvis; it was not known whether these were new as she had no previous scans to compare. PET scan recommended. PET 02/06/2023: IMPRESSION: 1. NECK: * Asymmetric hypermetabolism along the right palatine tonsil, indeterminate. Recommend correlation with direct inspection. * Otherwise no FDG avid neoplastic process. 2. CHEST: * No FDG avid neoplastic process. * 9 mm left upper lobe groundglass/semisolid nodule is not FDG avid and likely represents a primary lung neoplasm along the adenocarcinoma spectrum. 3. ABDOMEN/PELVIS: * No FDG avid neoplastic process. 4. EXTREMITIES/SKELETON: * No suspicious FDG avid osseous lesion. RESULT: Pack Changer (topogram) images: No additional findings. - Mediastinum blood pool activity: Max SUV: 1.8 - Background liver activity: Max SUV: 2.4 HEAD AND NECK: Focal hypermetabolism along the right palatine tonsil (Max SUV 7.6) with associated soft tissue fullness. Physiologic uptake seen in the visualized brain, extraocular muscles, parapharyngeal soft tissues, base of tongue, vocal cords, and salivary glands. No FDG avid cervical lymphadenopathy or mass. No FDG avid thyroid lesion. CHEST: Right chest port terminates in the right atrium. Physiologic uptake in the heart and mediastinum. Lungs and tracheobronchial tree: -0.9 cm left apicoposterior groundglass/semisolid nodule without associated hypermetabolism (Max SUV 0.6). -Additional scattered smaller pulmonary nodules, for example a 4 mm nodule within the posterior right upper lobe, below the resolution of PET. -No hypermetabolic pulmonary lesions. -Emphysema. Note that PET/CT is not sensitive for pulmonary nodules less than 8 mm. Pleura: No FDG avid pleural effusion or pleural mass. Mediastinum and Lymph nodes: 0.9 cm right prevascular node with low level hypermetabolism (Max SUV 2.6), likely reactive. Heart and great vessels: Physiologic uptake in the heart. Chest wall and axilla: No FDG avid axillary lymphadenopathy. ABDOMEN AND PELVIS: Physiologic uptake seen in the and GI tracts. Liver: No FDG avid lesion. Low-attenuation lesion centered between the posterior aspect of the left hepatic lobe and the body of the pancreas, without associated hypermetabolism. Biliary: Gallbladder is unremarkable. Spleen: No FDG avid lesion. No splenomegaly. Pancreas: No FDG avid lesion. Adrenals: No FDG avid lesion. Kidneys: No stones, hydronephrosis, or FDG avid lesions. GI tract: No dilation or focal suspicious FDG avid lesion. Lymph nodes: No FDG avid abdominal or pelvic lymphadenopathy. Left external iliac/obturator node measures 0.7 cm and has expected low level hypermetabolism (Max SUV 1.8). Mesentery/Peritoneum: No ascites or FDG avid mass. Vasculature: Vascular patency cannot be assessed due to lack of IV contrast. Atherosclerotic calcifications of the abdominal aorta and iliac vessels without aneurysm. Pelvis: Hysterectomy. No ascites, focal fluid collection, or hypermetabolic lesion. Abdominopelvic wall: Postsurgical changes along the ventral pelvic wall with expected low level hypermetabolism. BONES AND EXTREMITIES: No suspicious FDG avid osseous lesion. The imaged portions of the skeleton demonstrates age-related degenerative changes. No destructive osseous lesions. Previous therapy: 1) Carboplatin and paclitaxel x4 cycles. 2) Interval debulking surgery 09/28/2022 3) Carboplatin and paclitaxel x2 cycles. Completed 11/2022. 4) Zejula. Did not tolerate due to side effects (see above). Post op had abdominal pain (incisional pain?) and saw palliative care and was prescribed gabapentin which helped significantly. Now has mild ghost pain on occasion and continues gabapentin to help her sleep--Tried stopping and significant flare of anxiety. Has had buproprion, Vistaril and Effexor from PCP in the past. Tried 0.5 mg lorazepam for PET and it made her very sedate. Quit smoking at time of ovarian cancer diagnosis. Has episodic dyspnea---can happen at rest or with exertion but never consistently. However she noticed a gradual worsening of BORJAS. No further palpitations. No exertional chest pain/pressure. Saw Dr. Scruggs, shovel oiler at [facility]: The preferred approach would be transthoracic needle aspiration under CT scan guidance. Since she has no blebs within 3 cm of the lesion, I believe her risk of procedure would be between 5 and 15% chance of pneumothorax. If the lesion is a lung primary, there is no outcome difference between the biopsy now and waiting 3 months to watch behavior, biopsying it if it enlarges in 3 months. If it is an ovarian metastasis, the best approach would be to biopsy the PET positive tonsillar enlargement, treat that, and observe the behavior of the lung lesion. If it is an ovarian metastasis and responds to treatment, and recedes on her next CAT scan, we will have avoided a biopsy. -I therefore recommend that her tonsil lesion be biopsied by ENT (first visit with Dr. Gregory tomorrow), and take a watchful waiting approach regarding the left upper lobe lesion for now, to readdress it in 3 months. Both of these options were discussed with the patient, she was given the option to biopsy now, and we agreed that it may be more prudent and would not change the outcome of a small lung lesion to wait for 3 months on the lung lesion biopsy. -Meanwhile we will evaluate her COPD, she has excellent functional status, and we will add bronchodilators if necessary. Underwent b/l tonsillectomy. No malignancy. 5) Gemcitabine/carboplatin/bevacizu mab. Cycle #1 began 05/12/2023. Was seen in the ED on 05/08 for worsening shortness of breath. Found to have increasing right pleural effusion. She underwent thoracentesis in which 80 cc of cloudy chloe fluid was removed. 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 Current therapy: 1) Doxil and bevacizumab Presents for ongoing oncologic management. Interim history: She continues to have generalized malaise on Doxil. Also getting episodic severe headaches. They occur every several days. They do not wake her at night. No other neurologic symptoms associated. Headache is across the top of her cranium. Tylenol does not help. Eventually they self resolved. Still working 40 hours a week. Occasional intermittent pain sides of abdomen. Bowels moving regularly. No diarrhea. 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 PMH, medications and allergies personally reviewed by me today. Any changes documented in appropriate section. Social History Tobacco Use Smoking status: Former Packs/day: 0.50 Years: 40.00 Additional pack years: 0.00 Total pack years: 20.00 Types: Cigarettes Quit date: 06/23/2022 Years since quittin.2 Smokeless tobacco: Never Vaping Use Vaping Use: Never used Substance Use Topics Alcohol use: No Drug use: No Family History Problem Relation Age of Onset Thyroid Mother Hypertension Father Heart Father Thyroid Sister Half-sister other (CHF) Sister Thyroid Sister Half-sister Colon Cancer Sister Thyroid Sister Half-sister Hypertension Brother Cancer Maternal Grandmother OVARIAN Hypertension Maternal Grandfather Cancer Maternal Grandfather LUNG Lung Cancer Paternal Grandmother ROS: Constitutional: Denies episodes of fever and night sweats. Neuro: Denies vertigo, dizziness and imbalance. HEENT: No recent change in voice, vision or hearing. Resp: See HPI. CVS: No exertional chest pain or pressure. No lower extremity swelling or edema. GI: See HPI. : Denies dysuria or gross hematuria. Endo: Denies hot flashes. Denies polyuria and polydipsia. Denies heat and cold intolerance. Musculoskeletal: No bone, back, joint and muscular pain. Derm: Denies rash. Heme: Denies unusual bleeding and unexplained bruising. Psych: Anxiety--improved on Cymbalta. PHYSICAL EXAM: Vitals: Blood pressure 138/83, pulse 62, temperature 36.6 C (97.8 F), weight 48.1 kg (106 lb), last menstrual period 03/23/2012, SpO2 100%. Well-appearing and in no acute distress. EYES: Sclerae are anicteric bilaterally. LYMPHATIC: There is no palpable cervical or supraclavicular adenopathy. There are mobile nodes in each axilla. Right greater than left. RESPIRATORY: Inspiratory vesicular breath sounds are of diminished intensity in all cruz. Absent right base and diminished upper right--stable by exam. CARDIOVASCULAR: Rhythm is regular. ABDOMEN: The abdomen is nondistended. Extremities: No swelling or edema. SKIN: No jaundice. 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 No focal motor weakness. LABORATORY DATA: PFTs at [facility] 02/17/2023: Forced expiration spirometry demonstrates the presence of a mild large airways obstructive ventilatory defect. There was no significant response to aerosolized bronchodilators. Spirograms are of fair quality and plateau normally. Body plethysmography was performed and revealed lung volumes to be within normal limits. Diffusing capacity by single breath CO was likewise within normal limits. IMPRESSION: Irreversible mild large airways obstructive ventilatory impairment with preserved lung volumes and diffusing capacity. ASSESSMENT/PLAN: (C56.3) Malignant neoplasm of both ovaries (HCC) (primary encounter diagnosis) (C78.6) Peritoneal carcinomatosis (HCC) Assessment: -KPS is 90-100% -No HRD including BRCA gene mutation. -Genetic testing performed through [facility]: Negative for BRCA1/2 and 24 other relevant genes. -Had progressive disease as evidenced by malignant pleural effusion. -Had echocardiogram 04/2023. -ADDENDUM: Caris negative for FOLR1. -CTs demonstrate mixed response. 7 decrease in size of abdominal and pelvic metastases. Progression of bilateral axillary adenopathy. -CA125 trending upward. -Given that information, recommended changing therapy to pemetrexed. I discussed the rationale, logistics, potential risks (including but not limited to rash, nausea vomiting, diarrhea, cytopenias, infectious complications and the small potential for as a consequence of severe toxicity/complications of therapy), benefits and alternatives, as well as the personnel involved in the administration of pemetrexed. I answered her questions in detail and she verbalized understanding and agreed with the recommended therapy. Please see the electronic consent document for details of doses and schedule. Plan: -Chest x-ray every cycle to monitor effusion. -B12 injection today. -Rx for folic acid. -Rx for dexamethasone. -Continue monitoring CA125 every cycle. If CA125 from today is low or then biopsy of axillary lymph node indicated to rule out a second malignancy. -CTs following cycle #3. (I25.10) Coronary artery disease involving [place] coronary artery of [place] heart without angina pectoris (Z95.5) History of coronary artery stent placement Assessment: -Had PCI for IA with one stent placed 08/2021. Post Covid. -Completed dual antiplatelet therapy with ASA and clopidogrel (was intolerant to Brilinta) x1 year. -Now on aspirin alone. -BP mildly elevated today. Plan: -Follow-up with cardiology. (J44.9) Chronic obstructive pulmonary disease, unspecified COPD type (HCC) Assessment: -Former smoker. -CT chest revealed many pulmonary emphysematous blebs. Plan: -Follow up with Dr. Scruggs. (R91.1) Incidental lung nodule, greater than or equal to 8mm Assessment: -Incidental finding of 9 mm groundglass/semisolid left upper lobe nodule on recent PET scan. -In retrospect, was present but smaller on CTA done [facility] 07/28/2022. -Appreciate Dr. Scruggs's previous recommendations. Plan: -Monitor with follow up CT. 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 Plan: -Continue Cymbalta. (F41.1, C80.1) Anxiety associated with cancer diagnosis (HCC) Assessment: -Cymbalta has helped significantly. Plan: -Cymbalta 30 mg daily. (O22.30) DVT (deep vein thrombosis) in Assessment: -She had a remote provoked DVT during first in 1984. -Nonetheless she is at increased risk of recurrent VTE given underlying cancer diagnosis. -No clear indication for prophylactic anticoagulation. Discussed monitoring for symptoms. Plan: -Monitor. (N63.0) Breast nodule Assessment: -Imaging revealed simple cyst. Plan: -Annual screening mammogram. 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 -She is asymptomatic from the effusion at this time. Plan: -Chest x-ray today. Portions of this documentation were copied and pasted from previous office visit notes in order to provide a cohesive continuity of the history. The note has been reviewed and edited and updated as necessary. Bk Lenz DO documented in this encounter [facility] 09-27-2023 Note [facility] 09-21-2023 Miscellaneous Notes Error documented in this encounter [facility] 09-05-2023 Note [facility] 09-05-2023 Miscellaneous Notes Chest x-ray shows stable effusion. Bk Lenz DO documented in this encounter [facility] 09-05-2023 Note [facility] 09-05-2023 History of Presen t illness Narrative Oncologic problem(s): 1) 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 2) Remote DVT-- associated. HPI: The patient is a 58-year-old female with a past medical history significant for smoking (quit 06/2022), CAD (08/2021 following mildly symptomatic Covid, developed chest pain first day back to work--IA; PCI x1 stent--ASA and Brilinta (stopped Brilinta after a week due to nausea and diarrhea--took Plavix for a year), remote DVT (first in 1984) and ovarian cancer. Developed change in bowel habits spring 2021. Then developed abdominal pain summer 2021. Admitted [facility] via ED 06/20/2022. Per admitting hospitalist then onset 04/2022 ongoing persistent dull aching with occasional sharp stabbing periumbical abdominal pain, rated 2-5/10 in severity with nausea without emesis and night sweats with no diarrhea and normal once daily in AM bowel movements with PCP evaluation with outpatient US which was reportedly normal with ED evaluation 06/13/[address] A/P w/ reported gastritis and ascites and normal labs with discharge to home with follow-up PCP directed 06/17/22 MRI with moderate volume ascites with two thin walled well defined fluid collections without enhancement (1.2 x 0.8, 3.6 x 2.7 cm) in the LLQ with referral made to GI Dr. Rajput who now re-presents to the [facility] ED on 06/20/22 history of ongoing constant abdominal pain in the similar region but worsened, rated pain for the last 1-2 weeks 8-/10 in severity with ~9 lb weight loss with decreased oral intake and ongoing night sweats. US 06/22/2022 at [facility]: MPRESSION: 1. Normal-size anteverted uterus with a hyperechoic 3 mm thick endometrium. 2. No evidence of uterine cyst or solid mass lesions. 3. Normal cervix. 4. Mildly lobulated right ovary measuring 3.5 cm to 2.7 x 2.4 cm without distinct cystic or solid lesions. 5. Left ovary is not visualized. 6. Large amount of fluid or ascites in the cul-de-sac. 7. No evidence of adnexal masses or peritoneal implants. Referred to Dr. Hyatt. Underwent laparoscopy with findings of diffuse carcinomatosis and biopsy at [facility] 06/28/2022. Pathology: PERITONEUM, BIOPSIES - HIGH-GRADE ADENOCARCINOMA. SEE COMMENT. 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 These malignant cells stain positive with CK7, PAX 8, patchy positivity with calretinin and weak focal ER positivity, and negative for CK20, GATA3 and WT1. A p53 demonstrates a null phenotype. 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 SNVs/Indels - TP53 splice site c.782+1G>A Immuno-Oncology Biomarkers - PD-L1 LDT: Not Detected Interpretation: -TP53 (tumor protein P53) encodes a tumor suppressor protein that responds to cellular stresses, including gDNA damage and oncogenic activation, by inducing and modulating downstream anti-tumor responses such as DNA repair, recombination, and apoptosis. Currently, there are no approved therapies that directly target oncogenic alterations in TP53. However, experimental therapies that target and re-activate the transcriptional activity of mutant TP53 have been described and are currently under investigation. Early clinical trials data suggest oncogenic TP53 mutations may predict resistance to cisplatin chemotherapy, MDM2 inhibitors, and CDK4/CDK6 inhibitors. - No pathogenic mutations are present in any of the common homologous recombination repair genes on this panel. Variants of unknown clinical significance are detected in the following genes: ATR and BARD1 (Please see the Variants of Unknown Clinical Significance section, below). As the functional consequences of these variants are undetermined, the clinical utility of PARP inhibitor therapy in this case is uncertain Started on neoadjuvant chemotherapy with carboplatin and paclitaxel. She received 4 cycles prior to undergoing interval debulking surgery on 09/28/2022. Notes indicate had complete gross tumor debulking. Pathology: A. Soft tissue, anterior peritoneum, excision: - Fibroadipose tissue with focal dense fibrosis and rare infiltrating high-grade carcinoma. B. Omentum, excision: - Residual invasive high-grade adenocarcinoma and therapy-related changes present. Comment: The majority of tumor in all the specimens (A - E) has the appearance of high-grade serous carcinoma. Focal areas of tumor in parts B and D show clear cells features. However, by immunohistochemistry, these cells are negative for napsin-A, making clear cell carcinoma less likely. WT-1 is also negative. C. Uterus, cervix, bilateral fallopian tubes and ovaries, hysterectomy with bilateral salpingo-oophorectomy: - Residual high-grade carcinoma involving bilateral ovaries and fallopian tubes. - Uterus with inactive endometrium, and unremarkable myometrium and cervix. D. Small bowel nodule, excision: - High-grade carcinoma and therapy-related changes including fibrinous necrosis. E. Appendix, appendectomy: - Rare infiltrating carcinoma involving the mesoappendix. - Unremarkable tubular appendix. Completed 2 additional cycles carbo/paclitaxel November 2021. He is here today to discuss maintenance therapy. Patient's CA125 level is 28.2 U/mL.Ran at [facility]. Per Dr. Naranjo's note: Plan: Counseled the patient and her daughter today as far as treatment options. This would include going on a PARP inhibitor, Avastin or observation only. We discussed the fact that she is HRD and BRCA negative. We discussed that there was still an advantage to going on a PARP inhibitor. I did career technical counselor the patient as to the most common side effects of PARP inhibitors. We also discussed some of the more common signs and symptoms of recurrent cancer. The patient would like to start Zejula, will start at the medium dose, will watch CBC weekly for 1 month and then monthly thereafter. Discussed staying on the Zejula until evidence of disease progression or toxicity. ----- Started Zejula 12/20/2022 but developed diarrhea, fatigue, chest pain with palpitations that woke her by 12/22/2022. Saw cardiology 12/23 and was told EKG okay and could retry Zejula. Started on 12/26. 12/28 had blurry vision and couldn't see to drive. Decreased dose to 200 mg daily. 12/30 got palpitations again. Stopped altogether 01/02/2023. Went to [facility] in [place] where evidently CT scan 01/16/23 showed lesions in left lung, liver, and pelvis; it was not known whether these were new as she had no previous scans to compare. PET scan recommended. PET 02/06/2023: IMPRESSION: 1. NECK: * Asymmetric hypermetabolism along the right palatine tonsil, indeterminate. Recommend correlation with direct inspection. * Otherwise no FDG avid neoplastic process. 2. CHEST: * No FDG avid neoplastic process. * 9 mm left upper lobe groundglass/semisolid nodule is not FDG avid and likely represents a primary lung neoplasm along the adenocarcinoma spectrum. 3. ABDOMEN/PELVIS: * No FDG avid neoplastic process. 4. EXTREMITIES/SKELETON: * No suspicious FDG avid osseous lesion. RESULT: Pack Changer (topogram) images: No additional findings. - Mediastinum blood pool activity: Max SUV: 1.8 - Background liver activity: Max SUV: 2.4 HEAD AND NECK: Focal hypermetabolism along the right palatine tonsil (Max SUV 7.6) with associated soft tissue fullness. Physiologic uptake seen in the visualized brain, extraocular muscles, parapharyngeal soft tissues, base of tongue, vocal cords, and salivary glands. No FDG avid cervical lymphadenopathy or mass. No FDG avid thyroid lesion. CHEST: Right chest port terminates in the right atrium. Physiologic uptake in the heart and mediastinum. Lungs and tracheobronchial tree: -0.9 cm left apicoposterior groundglass/semisolid nodule without associated hypermetabolism (Max SUV 0.6). -Additional scattered smaller pulmonary nodules, for example a 4 mm nodule within the posterior right upper lobe, below the resolution of PET. -No hypermetabolic pulmonary lesions. -Emphysema. Note that PET/CT is not sensitive for pulmonary nodules less than 8 mm. Pleura: No FDG avid pleural effusion or pleural mass. Mediastinum and Lymph nodes: 0.9 cm right prevascular node with low level hypermetabolism (Max SUV 2.6), likely reactive. Heart and great vessels: Physiologic uptake in the heart. Chest wall and axilla: No FDG avid axillary lymphadenopathy. ABDOMEN AND PELVIS: Physiologic uptake seen in the and GI tracts. Liver: No FDG avid lesion. Low-attenuation lesion centered between the posterior aspect of the left hepatic lobe and the body of the pancreas, without associated hypermetabolism. Biliary: Gallbladder is unremarkable. Spleen: No FDG avid lesion. No splenomegaly. Pancreas: No FDG avid lesion. Adrenals: No FDG avid lesion. Kidneys: No stones, hydronephrosis, or FDG avid lesions. GI tract: No dilation or focal suspicious FDG avid lesion. Lymph nodes: No FDG avid abdominal or pelvic lymphadenopathy. Left external iliac/obturator node measures 0.7 cm and has expected low level hypermetabolism (Max SUV 1.8). Mesentery/Peritoneum: No ascites or FDG avid mass. Vasculature: Vascular patency cannot be assessed due to lack of IV contrast. Atherosclerotic calcifications of the abdominal aorta and iliac vessels without aneurysm. Pelvis: Hysterectomy. No ascites, focal fluid collection, or hypermetabolic lesion. Abdominopelvic wall: Postsurgical changes along the ventral pelvic wall with expected low level hypermetabolism. BONES AND EXTREMITIES: No suspicious FDG avid osseous lesion. The imaged portions of the skeleton demonstrates age-related degenerative changes. No destructive osseous lesions. Previous therapy: 1) Carboplatin and paclitaxel x4 cycles. 2) Interval debulking surgery 09/28/2022 3) Carboplatin and paclitaxel x2 cycles. Completed 11/2022. 4) Zejula. Did not tolerate due to side effects (see above). Post op had abdominal pain (incisional pain?) and saw palliative care and was prescribed gabapentin which helped significantly. Now has mild ghost pain on occasion and continues gabapentin to help her sleep--Tried stopping and significant flare of anxiety. Has had buproprion, Vistaril and Effexor from PCP in the past. Tried 0.5 mg lorazepam for PET and it made her very sedate. Quit smoking at time of ovarian cancer diagnosis. Has episodic dyspnea---can happen at rest or with exertion but never consistently. However she noticed a gradual worsening of BORJAS. No further palpitations. No exertional chest pain/pressure. Saw Dr. Scruggs, shovel oiler at [facility]: The preferred approach would be transthoracic needle aspiration under CT scan guidance. Since she has no blebs within 3 cm of the lesion, I believe her risk of procedure would be between 5 and 15% chance of pneumothorax. If the lesion is a lung primary, there is no outcome difference between the biopsy now and waiting 3 months to watch behavior, biopsying it if it enlarges in 3 months. If it is an ovarian metastasis, the best approach would be to biopsy the PET positive tonsillar enlargement, treat that, and observe the behavior of the lung lesion. If it is an ovarian metastasis and responds to treatment, and recedes on her next CAT scan, we will have avoided a biopsy. -I therefore recommend that her tonsil lesion be biopsied by ENT (first visit with Dr. Gregory tomorrow), and take a watchful waiting approach regarding the left upper lobe lesion for now, to readdress it in 3 months. Both of these options were discussed with the patient, she was given the option to biopsy now, and we agreed that it may be more prudent and would not change the outcome of a small lung lesion to wait for 3 months on the lung lesion biopsy. -Meanwhile we will evaluate her COPD, she has excellent functional status, and we will add bronchodilators if necessary. Underwent b/l tonsillectomy. No malignancy. 5) Gemcitabine/carboplatin/bevacizu mab. Cycle #1 began 05/12/2023. Was seen in the ED on 05/08 for worsening shortness of breath. Found to have increasing right pleural effusion. She underwent thoracentesis in which 80 cc of cloudy chloe fluid was removed. 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 Current therapy: 1) Doxil and bevacizumab Presents for ongoing oncologic management. Interim history: Had a root canal done so day 15 bevacizumab was omitted from cycle 1. Two weeks ago had a week long symptom of mucositis manifested by soreness on right side of tongue. Hurt to talk. Doesn't like BMX, but used salt and soda. Generalized feeling malaise. I just don't feel good. I am eating good and I am sleeping well. Thinks may be from the effusion. She does not feel short of breath and she remains active. Still working 40 hours a week. Occasional intermittent pain sides of abdomen. Bowels moving regularly. No diarrhea. Heels and palms were red and sensitive this past Monday. Better now. 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 PMH, medications and allergies personally reviewed by me today. Any changes documented in appropriate section. Social History Tobacco Use Smoking status: Former Packs/day: 0.50 Years: 40.00 Additional pack years: 0.00 Total pack years: 20.00 Types: Cigarettes Quit date: 06/23/2022 Years since quittin.2 Smokeless tobacco: Never Vaping Use Vaping Use: Never used Substance Use Topics Alcohol use: No Drug use: No Family History Problem Relation Age of Onset Thyroid Mother Hypertension Father Heart Father Thyroid Sister Half-sister other (CHF) Sister Thyroid Sister Half-sister Colon Cancer Sister Thyroid Sister Half-sister Hypertension Brother Cancer Maternal Grandmother OVARIAN Hypertension Maternal Grandfather Cancer Maternal Grandfather LUNG Lung Cancer Paternal Grandmother ROS: Constitutional: Denies episodes of fever and night sweats. Neuro: Denies vertigo, dizziness and imbalance. HEENT: No recent change in voice, vision or hearing. Resp: See HPI. CVS: No exertional chest pain or pressure. No lower extremity swelling or edema. GI: See HPI. : Denies dysuria or gross hematuria. Endo: Denies hot flashes. Denies polyuria and polydipsia. Denies heat and cold intolerance. Musculoskeletal: No bone, back, joint and muscular pain. Derm: Denies rash. Heme: Denies unusual bleeding and unexplained bruising. Psych: Anxiety--improved on Cymbalta. PHYSICAL EXAM: Vitals: Blood pressure 146/74, pulse 86, temperature 36.5 C (97.7 F), weight 49 kg (108 lb), last menstrual period 03/23/2012. Well-appearing and in no acute distress. EYES: Sclerae are anicteric bilaterally. LYMPHATIC: There is no palpable cervical or supraclavicular adenopathy. RESPIRATORY: Inspiratory vesicular breath sounds are of diminished intensity in all cruz. Absent right base and diminished upper right--stable by exam. CARDIOVASCULAR: Rhythm is regular. ABDOMEN: The abdomen is nondistended. No organomegaly. Nontender today. No fluid wave. Extremities: No swelling or edema. SKIN: No jaundice. 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 No focal motor weakness. LABORATORY DATA: Component Latest Ref Rng & Units 09/05/2023 WBC 3.70 - 11.00 k/uL 4.13 RBC 3.90 - 5.20 m/uL 4.17 Hemoglobin 11.5 - 15.5 g/dL 12.4 Hematocrit 36.0 - 46.0 % 38.4 MCV 80.0 - 100.0 fL 92.1 MCH 26.0 - 34.0 pg 29.7 MCHC 30.5 - 36.0 g/dL 32.3 RDW-CV 11.5 - 15.0 % 15.7 (H) Platelet Count 150 - 400 k/uL 267 MPV 9.0 - 12.7 fL 9.4 Neut% % 46.0 Abs Neut (ANC) 1.45 - 7.50 k/uL 1.90 Lymph% % 38.3 Abs Lymph 1.00 - 4.00 k/uL 1.58 Clay% % 12.6 Abs Clay <0.87 k/uL 0.52 Eosin% % 1.7 Abs Eosin <0.46 k/uL 0.07 Baso% % 1.2 Abs Baso <0.11 k/uL 0.05 Immature Gran % % 0.2 IMMATURE GRANS (ABS) <0.10 k/uL <0.03 NRBC /100 WBC 0.0 Absolute nRBC <0.01 k/uL <0.01 DTYPE Auto PFTs at [facility] 02/17/2023: Forced expiration spirometry demonstrates the presence of a mild large airways obstructive ventilatory defect. There was no significant response to aerosolized bronchodilators. Spirograms are of fair quality and plateau normally. Body plethysmography was performed and revealed lung volumes to be within normal limits. Diffusing capacity by single breath CO was likewise within normal limits. IMPRESSION: Irreversible mild large airways obstructive ventilatory impairment with preserved lung volumes and diffusing capacity. ASSESSMENT/PLAN: (C56.3) Malignant neoplasm of both ovaries (HCC) (primary encounter diagnosis) (C78.6) Peritoneal carcinomatosis (HCC) Assessment: -KPS is 90-100% -No HRD including BRCA gene mutation. -Genetic testing performed through [facility]: Negative for BRCA1/2 and 24 other relevant genes. -Had progressive disease as evidenced by malignant pleural effusion. -I recommended changing therapy to Doxil with bevacizumab. Although she had received bevacizumab, tolerated very well and was reasonable to continue with Doxil. -Had echocardiogram 04/2023. -ADDENDUM: Caris negative for FOLR1. Plan: -Okay for cycle #3 tomorrow. -Continue monitoring CA125 every cycle. -Plan for CT following cycle #3. (I25.10) Coronary artery disease involving [place] coronary artery of [place] heart without angina pectoris (Z95.5) History of coronary artery stent placement Assessment: -Had PCI for IA with one stent placed 08/2021. Post Covid. -Completed dual antiplatelet therapy with ASA and clopidogrel (was intolerant to Brilinta) x1 year. -Now on aspirin alone. -BP mildly elevated today. Plan: -Follow-up with cardiology. (J44.9) Chronic obstructive pulmonary disease, unspecified COPD type (HCC) Assessment: -Former smoker. -CT chest revealed many pulmonary emphysematous blebs. Plan: -Follow up with Dr. Scruggs. (R91.1) Incidental lung nodule, greater than or equal to 8mm Assessment: -Incidental finding of 9 mm groundglass/semisolid left upper lobe nodule on recent PET scan. -In retrospect, was present but smaller on CTA done [facility] 07/28/2022. -Appreciate Dr. Scruggs's previous recommendations. Plan: -Monitor with follow up CT. 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 Plan: -Continue Cymbalta. (F41.1, C80.1) Anxiety associated with cancer diagnosis (HCC) Assessment: -Cymbalta has helped significantly. Plan: -Cymbalta 30 mg daily. (O22.30) DVT (deep vein thrombosis) in Assessment: -She had a remote provoked DVT during first in 1984. -Nonetheless she is at increased risk of recurrent VTE given underlying cancer diagnosis. -No clear indication for prophylactic anticoagulation. Discussed monitoring for symptoms. Plan: -Monitor. (N63.0) Breast nodule Assessment: -Imaging revealed simple cyst. Plan: -Annual screening mammogram. 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 -She is asymptomatic from the effusion at this time. Plan: -Chest x-ray today. Portions of this documentation were copied and pasted from previous office visit notes in order to provide a cohesive continuity of the history. The note has been reviewed and edited and updated as necessary. I spent a total of 25 minutes on the date of the service which included [id number] patient care, completing clinical documentation, obtaining and/or reviewing separately obtained history, performing a medically appropriate examination, counseling and educating the patient/family/caregiver, ordering medications, tests, or procedures, communicating with other HCPs (not separately reported), and communicating results to the patient/family/caregiver. Bk Lenz DO documented in this encounter [facility] 09-05-2023 Nurse Note Est. Pt, discuss recent labs , tx Monday. Pt. C/o bilateral heel pain on Monday, painful to put pressure on heel. Bailey Rodríguez LPN documented in this encounter [facility] 09-05-2023 Note HNO ID: [id number] Author: Nithya Mcbride RN Service: ? Author Type: Registered Nurse Type: Progress Notes Filed: 09/05/2023 8:28 AM Note Text: Patient requests to have lab work taken peripherally. [facility] 09-05-2023 History of Presen t illness Narrative Patient requests to have lab work taken peripherally. documented in this encounter [facility] 2023 Note HNO ID: [id number] Author: Jaye Fox RN Service: ? Author Type: ? Type: Progress Notes Filed: 2023 12:49 PM Note Text: Pt stated no changes to assessment from OV yesterday 08/10/23. Jaye Fox RN [facility] 2023 History of Presen t illness Narrative Pt stated no changes to assessment from OV yesterday 08/10/23. Jaye Fox RN documented in this encounter [facility] 08-10-2023 Miscellaneous Notes Patient is aware of all information and has declined the offer of pain medication for her headaches. Deanna Ag LPN Left message for pt to return call to office. Gayla Roberto LPN Can let her know the chest x-ray from today showed the fluid is stable. No increase. Also, at the office visit today she mentioned she has been getting headaches. I was going to send prescription for a migraine medication but it is contraindicated because of her history of coronary artery disease. However, if she would like a pain medication to try I can prescribe one. Bk Lenz DO documented in this encounter [facility] 08-10-2023 History of Presen t illness Narrative Radiology Service Progress Note PATIENT NAME: Evelyn Mccabe DATE OF SERVICE: August 10, 2023 TIME: 10:40 AM PATIENT IDENTITY VERIFICATION COMPLETED USING TWO (2) IDENTIFIERS: Name and Date of confirmed by patient verbally. FALL SCREENING: Has the patient had 2 falls in the last year or 1 fall with injury or currently using an Ambulatory Assistive Device (Walker, Cane, Wheelchair, Crutches, etc.)? No PATIENT GENDER DATA: Female. status: : No status: NO. 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 Message left on pts. Identified voicemail . Bailey Rodríguez LPN Patient states [facility] did not receive rx for Cymbalta. Please send again. 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 documented in this encounter [facility] 07-26-2023 Miscellaneous Notes I called and relayed the below information to Evelyn and she stated understanding. She is scheduled for a port draw tomorrow morning at 8:45 am for the CBC. Patient did want to confirm that she is not having an extraction, she is having a root canal. Avastin for Monday has been canceled. Ashely Patel Pss Hold Avastin Monday. CBC tomorrow. Okay to schedule extraction. Bk Lenz DO Patient calls and states that she saw her dentist and needs a root canal. She is calling to let Dr. Lenz know and wondering next steps, labs needed prior? She has not scheduled the procedure yet. OK to continue with Avastin this Monday? Christen Swenson RN Patient called back and she was informed of Dr. Lenz's response. Patient went to the [facility] today and was prescribed Augmentin. Patient has an appointment with her dentist tomorrow at 11:30 am. Chloe Zambrano RN Called patient, there was no answer. Left a detailed VM with Dr. Lenz's response and requested a call back with an update. Chloe Zambrano RN Patient denies any sinus congestion. Patient was instructed to monitor for a fever earlier on the phone and reviewed after hour number. This nurse will call patient later today to see if she was able to be evaluated. Chloe Zambrano RN Perhaps the tooth is causing the headache and the feeling of malaise. Alternatively she might be developing URI or sinus infection. She should monitor for fever and we will see if she is able to get into the dentist quickly. Bk Lenz DO TOXICITY CHECK SYMPTOM ASSESSMENT The patient is on Doxil/Avastin Headache: Yes now and then taking tylenol PRN mild it feels like its in my eyes, in the front of my head . Occurs a couple times a week. Patient stated if she takes 1 tylenol it alleviates the pain for the rest of the day. Visual Changes: my vision has always been bad Dizziness: No Do you have any periods of confusion? No Mood changes: No Mouth or throat pain: No Appetite: no changes in appetite, appetite good Taste changes: Yes Nausea: No Vomiting: No Heartburn: No. Weight gain/loss: yes, down to 106 lbs. Declined nutrition appointment. Patient had a nutrition appointment at [facility]. Patient aware she can request an appointment anytime. Episodes of palpitations/chest discomfort/pressure/pain No Shortness of breath: No Cough: No. Patient had a cold last week for 3-4 days, resolved. Diarrhea: no Constipation: no Bladder/Urinary Changes: None Pain: Yes, Fever: No Chills: No Cold sensitivity: No Numbness/weakness: No Edema: No Skin changes: No Itching: No Yellowing of skin or eyes: No Musculoskeletal/joint changes/issues No Bleeding issues: No Activity Level (0-100%): Good Do you need to take naps? No Patient stated she has been to her dentist three times to discuss a tooth that has been causing her pain and discomfort. Patient stated in the middle of the night, patient woke up and the right side of her face was hurting. Patient stated when she puts her teeth together she can feel the pain from the tooth that has been causing issues and the pain radiates up into her face and ear. Patient denies her face being red or swollen. Patient contacted her dentist today and they are able to see her tomorrow however she is going to call back and ask again if they can work her in today. Patients current temperature is 98 F. Patient instructed to call our office with an update after she is evaluated by her dentist. Patient stated for the past week, she has not felt good at all and theres no explanation for it . Patient stated food sounds terrible but she is eating adequate amounts of food, staying hydrated, going to work every day, sleeping well at night, but she feels blah and yucky . Patient has had intermittent mild headaches a couple times a week...it feels like its in my eyes, in the front of my head which is new for her. Patient stated she will take one tylenol which will alleviate the pain. Patient has had intermittent 3-4/10 aches in her left and right side that started last week. Patient stated the pains are in my mid section, not real low, not real high and she denies any issues with diarrhea, constipation, or urinary symptoms. Patient stated the pains do not occur at night, denies cramping or pain prior to a BM. Patient had a cold for 3-4 days last week and this has resolved. Nausea has been mild and she has not needed any antiemetics. Does the patient need interventions or same day appointment:Yes, patient to call her dentist for appointment. Reinforced CURRENT treatment education based on current and anticipated symptoms. Discussed port/line care and patient verbalizes understanding: Yes Patient instructed to contact office or after hours Hematology/Oncology fellow for: temperature ? 100.4; questions or concerns. Patient verbalized understanding of when to seek medical attention and after hours number protocol. Chloe Zambrano RN Patient is having some pain with tooth and is calling dentist to be seen today. States the pain is going up into her face/ear. Please call patient and advise if she is able to have any type of procedures/dental work. documented in this encounter [facility] 07-25-2023 History of Presen t illness Narrative This note was created using [employer]. Subjective Evelyn Mccabe is a 57 year old female. 57 year old female with PMH CAD, ovarian cancer (remission), anxiety presents for dental pain. Sub acute in nature. Right upper tooth +jaw tenderness. +dental pain +smell of decay. Endorses that this has been an ongoing issue. States that she has been dealing with this tooth causing her issues. Her dentist, Dr. López, is aware and she has been evaluated. 1st time-dentist stated could not find anything 2nd time-a month ago, she states he put desensitizer, and it worked for about 2 weeks. She was informed that her crown and partials may need to be redone. States she has an appt tomorrow, but was recommended to come in here and start ATB. The history is provided by the patient. No speech language pathologist assistant was used. Dental Problem This is a recurrent problem. The current episode started more than 1 month ago. The problem occurs every several days. The problem has been waxing and waning. Pertinent negatives include no abdominal pain, anorexia, arthralgias, change in bowel habit, chest pain, chills, congestion, coughing, diaphoresis, fatigue, fever, headaches, joint swelling, myalgias, nausea, neck pain, numbness, rash, sore throat, swollen glands, urinary symptoms, vertigo, visual change, vomiting or weakness. Nothing aggravates the symptoms. She has tried nothing for the symptoms. The treatment provided no relief. PAST MEDICAL HISTORY Diagnosis Date Cervical high risk human papillomavirus (HPV) DNA test positive DVT (deep vein thrombosis) in 10/16/1984 Malignant neoplasm of both ovaries (HCC) 02/23/2023 PAST SURGICAL HISTORY Procedure Laterality Date APPENDECTOMY 09/2022 COLPOSCOPY CERVIX UPPER/ADJACENT VAGINA 10/15/2008 Colposcopy HUMEROUS LEFT 2ND OR 11/29/2004 left ORIF periarticular fx of distal humerus.screw fixation LIG/TRNSXJ FLP TUBE ABDL/VAG APPR UNI/BI Tubal ligation PT ED HEART AND VASCULAR 08/2021 TONSILLECTOMY & ADENOIDECTOMY <AGE 12 02/21/2023 TOTAL ABDOM HYSTERECTOMY 09/2022 ALLERGIES Bactrim [Sulfamethoxazole-Trimethoprim], Dilaudid [Hydromorphone], Lipitor [Atorvastatin], and Metoprolol MEDICATIONS acetaminophen (TYLENOL) 325 mg tablet Take 650 mg by mouth every 6 hours as needed. amoxicillin-clavulanic acid (AUGMENTIN) 875-125 mg per tablet Take 1 tablet by mouth two times a day for 5 days. aspirin 81 mg chewable tablet Take 1 tablet by mouth daily at bedtime. Cholecalciferol, Vitamin D3, 50 mcg (2,000 unit) cap Take 5,000 Units by mouth once daily. [id number]-ihdqyj-hkiutxqwy (BMX 1:1:1) 1:1:1 liqd Take 10 mL by mouth every 4 hours as needed (Swish and spit every hour for mouth sore pain relief.). (Patient not taking: Reported on 07/25/2023) DULoxetine (CYMBALTA) 30 mg capsule Take 1 capsule by mouth once daily. enteric contrast (will be provided with radiology test) For CT CHESTABD/PEL W IVCON Routine order Administer, As Directed One Time Only, via Oral, Rectal, both Oral and Rectal, Enteric Tube, Stoma or Indwelling Catheter, Enteric Contrast as designated per enteric contrast guidelines ezetimibe (ZETIA) 10 mg tablet Take 10 mg by mouth once daily. iv contrast (will be provided with radiology test) CT Chest ABD/PEL-Inject, intravenously, once for 1 dose.No IV access, insert saline lock prior to the beginning of sedation, infusion, injection of imaging exam. Discontinue saline lock post exam. If Pt. has a central line or IVAD, may access for administration according to line specific nursing protocol. Once exam is complete flush line and de-access according to line specific nursing protocol in the CT contrast administration guidelines link. FAMILY HISTORY Problem Relation Age of Onset Thyroid Mother Hypertension Father Heart Father Thyroid Sister Half-sister other (CHF) Sister Thyroid Sister Half-sister Colon Cancer Sister Thyroid Sister Half-sister Hypertension Brother Cancer Maternal Grandmother OVARIAN Hypertension Maternal Grandfather Cancer Maternal Grandfather LUNG Lung Cancer Paternal Grandmother Social History Tobacco Use Smoking status: Former Packs/day: 0.50 Years: 40.00 Additional pack years: 0.00 Total pack years: 20.00 Types: Cigarettes Quit date: 06/23/2022 Years since quittin.0 Smokeless tobacco: Never Vaping Use Vaping Use: Never used Substance Use Topics Alcohol use: No Drug use: No Review of Systems Constitutional: Negative for chills, diaphoresis, fatigue and fever. HENT: Positive for dental problem. Negative for congestion, postnasal drip, rhinorrhea, sinus pain and sore throat. Respiratory: Negative for cough. Cardiovascular: Negative for chest pain. Gastrointestinal: Negative for abdominal pain, anorexia, change in bowel habit, nausea and vomiting. Musculoskeletal: Negative for arthralgias, joint swelling, myalgias and neck pain. Skin: Negative for color change, pallor and rash. Allergic/Immunologic: Negative for environmental allergies, food allergies and immunocompromised state. Neurological: Negative for vertigo, weakness, numbness and headaches. Hematological: Negative for adenopathy. Does not bruise/bleed easily. Psychiatric/Behavioral: Negative for agitation and behavioral problems. Objective BP 102/64 Pulse 70 Temp (!) 35.9 C (96.7 F) Resp 16 Wt 48.5 kg (107 lb) LMP 03/23/2012 SpO2 100% BMI 16.76 kg/m Physical Exam Vitals and nursing note reviewed. Constitutional: General: She is not in acute distress. Appearance: Normal appearance. She is normal weight. She is not ill-appearing, toxic-appearing or diaphoretic. HENT: Head: Normocephalic and atraumatic. Right Ear: Ear canal and external ear normal. Left Ear: Ear canal and external ear normal. Nose: Nose normal. No congestion or rhinorrhea. Mouth/Throat: Mouth: Mucous membranes are moist. Pharynx: No oropharyngeal exudate or posterior oropharyngeal erythema. Comments: Right upper dentition with TTP Gums inflamed and recessed Negative trismus No deep space abscess noted Uvula midline Handling secretions. Eyes: General: Right eye: No discharge. Left eye: No discharge. Extraocular Movements: Extraocular movements intact. Conjunctiva/sclera: Conjunctivae normal. Pupils: Pupils are equal, round, and reactive to light. Cardiovascular: Rate and Rhythm: Normal rate and regular rhythm. Pulses: Normal pulses. Heart sounds: Normal heart sounds. No murmur heard. No friction rub. Pulmonary: Effort: Pulmonary effort is normal. No respiratory distress. Breath sounds: Normal breath sounds. No stridor. No wheezing, rhonchi or rales. Chest: Chest wall: No tenderness. Abdominal: General: Abdomen is flat. There is no distension. Palpations: Abdomen is soft. There is no mass. Tenderness: There is no abdominal tenderness. There is no right CVA tenderness, left CVA tenderness, guarding or rebound. Hernia: No hernia is present. Musculoskeletal: General: No swelling, tenderness, deformity or signs of injury. Normal range of motion. Cervical back: Normal range of motion and neck supple. No rigidity. Right lower leg: No edema. Left lower leg: No edema. Lymphadenopathy: Cervical: No cervical adenopathy. Skin: General: Skin is warm and dry. Coloration: Skin is not jaundiced or pale. Findings: No bruising, erythema, lesion or rash. Neurological: General: No focal deficit present. Mental Status: She is alert and oriented to person, place, and time. Cranial Nerves: No cranial nerve deficit. Sensory: No sensory deficit. Motor: No weakness. Coordination: Coordination normal. Gait: Gait normal. Psychiatric: Mood and Affect: Mood normal. Behavior: Behavior normal. Thought Content: Thought content normal. Judgment: Judgment normal. Assessment and Plan ASSESSMENT/PLAN: 1. Pain, dental - ICD9: 525.9, ICD10: K08.89 Ongoing for a couple months Has been seen by dentist Said seems to be okay She is scheduled tomorrow to see, She was recommended to come in here to start ATB RX Augmentin Marisol Holden APRN.VENDOR MANAGER documented in this encounter [facility] 07-18-2023 Miscellaneous Notes CYCLE 1/DAY 1 POST TREATMENT CALL Today's date: July 18, 2023 Treatment Regimen: Doxil/Avastin C1D1 Date: Called patient to follow-up on symptom management. Spoke with patient SYMPTOM ASSESSMENT Neuro: None CV/Resp: Cough: Yes; dry GI/: Nausea yesterday a couple hours and it went away . Patient did not need zofran. Integument: None Activity: Patient reported no changes in energy level, energy level good Pain: No=0 (pain 0 on a scale of 0-10). Fever: No Chills: No Patient reports cold symptoms. Patient has clear nasal mucous and a dry irritating cough. Patient denies chest congestion or coughing up phlegm. Patient is asking what she can take for cold symptoms. Discussed generic robitussin or mucinex, sudafed or coricidin, using a NACL nasal spray, and humidifier at night. Patient was instructed to call with any worsening symptoms. Any new referrals needed? No Reinforced CURRENT treatment education based on current and anticipated symptoms. Discussed port/line care and patient verbalizes understanding: Yes Patient instructed to contact office or after hours Hematology/Oncology fellow for: temperature ? 100.4; questions or concerns. Patient verbalized understanding of when to seek medical attention and after hours number protocol. Chloe Zambrano RN documented in this encounter [facility] 07-12-2023 History of Presen t illness Narrative Radiology Service Progress Note PATIENT NAME: Evelyn Mccabe DATE OF SERVICE: July 12, 2023 TIME: 10:24 AM PATIENT IDENTITY VERIFICATION COMPLETED USING TWO (2) IDENTIFIERS: Name and Date of confirmed by patient verbally. FALL SCREENING: Has the patient had 2 falls in the last year or 1 fall with injury or currently using an Ambulatory Assistive Device (Walker, Cane, Wheelchair, Crutches, etc.)? No PATIENT GENDER DATA: Female. status: : No status: NO. PATIENT RELEVANT IMPLANT DATA REVIEWED: Yes RADIOLOGY DEPARTMENT: General X-ray: Exam(s) Completed: Chest X-Ray PERIPHERAL IV DATA: Not applicable SIGNED BY: RT Brianna(R) July 12, 2023 10:24 AM documented in this encounter [facility] 07-07-2023 Miscellaneous Notes Spoke with Evelyn, she is doing well. She gets sick- well more fatigued the Monday after treatment and then she recovers about 3 days later. She feels wore out but then feels okay. She is working 40 hours per week. We discussed her CT findings. She specifically denies CP, SOB or trouble breathing. She sometimes feels like she can't really take a deep breath but that is not new. She has some soreness on the right side because she fell and hurt her ribs. She states she was examined by Dr. Lenz and they both felt like it was a bruised rib. She was at [place] last weekend for 8+ hours and did fine with this. She is scheduled for a chest xray next week. We reviewed her CT abd/pelvis with mildly enlarged lymph nodes. She had axillary adenopathy investigated with breast US. We discussed 3 additional cycles of carbo/gem/avastin versus doxil. Will confirm plans moving forward at with Dr. Romo next week. Reviewed concerning s/s related to her effusion/pneumothorax that would warrant urgent evaluation. 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 IVAD is located in right upper chest and was previously accessed. Blood Return: Good Flushed with: 20 ml Normal Saline and 5 ml Heparin Lock Flush Non-coring needle removed. Paper tape applied to puncture site. Port site negative for redness, edema or tenderness. Patient tolerated procedure well. documented in this encounter [facility] 07-07-2023 History of Presen t illness Narrative Radiology Service Progress Note PATIENT NAME: Evelyn Mccabe DATE OF SERVICE: July 07, 2023 TIME: 3:22 PM PATIENT IDENTITY VERIFICATION COMPLETED USING TWO (2) IDENTIFIERS: Name and Date of confirmed by patient verbally. FALL SCREENING: Has the patient had 2 falls in the last year or 1 fall with injury or currently using an Ambulatory Assistive Device (Walker, Cane, Wheelchair, Crutches, etc.)? No PATIENT GENDER DATA: Female. status: : No status: NO. PATIENT RELEVANT IMPLANT DATA REVIEWED: Yes RADIOLOGY DEPARTMENT: CT; Exam(s) Completed: Chest Abdomen Pelvis PERIPHERAL IV DATA: power port accessed by hemoc SIGNED BY: RT Angus(R) July 07, 2023 3:22 PM documented in this encounter [facility] 07-06-2023 Miscellaneous Notes Called and spoke with patient. Got her scheduled as directed for port access. Varsha Goodwin Pt would like to use port for appt on 07/07/[address] @ 9am drink 10 scan Please call pt to confirm time documented in this encounter [facility] 06-23-2023 History of Presen t illness Narrative No changes to assessment from OV yesterday. 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 2) Remote DVT-- associated. HPI: The patient is a 57-year-old female with a past medical history significant for smoking (quit 06/2022), CAD (08/2021 following mildly symptomatic Covid, developed chest pain first day back to work--IA; PCI x1 stent--ASA and Brilinta (stopped Brilinta after a week due to nausea and diarrhea--took Plavix for a year), remote DVT (first in 1984) and ovarian cancer. Developed change in bowel habits spring 2021. Then developed abdominal pain summer 2021. Admitted [facility] via ED 06/20/2022. Per admitting hospitalist then onset 04/2022 ongoing persistent dull aching with occasional sharp stabbing periumbical abdominal pain, rated 2-5/10 in severity with nausea without emesis and night sweats with no diarrhea and normal once daily in AM bowel movements with PCP evaluation with outpatient US which was reportedly normal with ED evaluation 06/13/[address] A/P w/ reported gastritis and ascites and normal labs with discharge to home with follow-up PCP directed 06/17/22 MRI with moderate volume ascites with two thin walled well defined fluid collections without enhancement (1.2 x 0.8, 3.6 x 2.7 cm) in the LLQ with referral made to GI Dr. Rajput who now re-presents to the [facility] ED on 06/20/22 history of ongoing constant abdominal pain in the similar region but worsened, rated pain for the last 1-2 weeks 8-10/10 in severity with ~9 lb weight loss with decreased oral intake and ongoing night sweats. US 06/22/2022 at [facility]: MPRESSION: 1. Normal-size anteverted uterus with a hyperechoic 3 mm thick endometrium. 2. No evidence of uterine cyst or solid mass lesions. 3. Normal cervix. 4. Mildly lobulated right ovary measuring 3.5 cm to 2.7 x 2.4 cm without distinct cystic or solid lesions. 5. Left ovary is not visualized. 6. Large amount of fluid or ascites in the cul-de-sac. 7. No evidence of adnexal masses or peritoneal implants. Referred to Dr. Hyatt. Underwent laparoscopy with findings of diffuse carcinomatosis and biopsy at [facility] 06/28/2022. Pathology: PERITONEUM, BIOPSIES - HIGH-GRADE ADENOCARCINOMA. SEE COMMENT. 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 These malignant cells stain positive with CK7, PAX 8, patchy positivity with calretinin and weak focal ER positivity, and negative for CK20, GATA3 and WT1. A p53 demonstrates a null phenotype. 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 SNVs/Indels - TP53 splice site c.782+1G>A Immuno-Oncology Biomarkers - PD-L1 LDT: Not Detected Interpretation: -TP53 (tumor protein P53) encodes a tumor suppressor protein that responds to cellular stresses, including gDNA damage and oncogenic activation, by inducing and modulating downstream anti-tumor responses such as DNA repair, recombination, and apoptosis. Currently, there are no approved therapies that directly target oncogenic alterations in TP53. However, experimental therapies that target and re-activate the transcriptional activity of mutant TP53 have been described and are currently under investigation. Early clinical trials data suggest oncogenic TP53 mutations may predict resistance to cisplatin chemotherapy, MDM2 inhibitors, and CDK4/CDK6 inhibitors. - No pathogenic mutations are present in any of the common homologous recombination repair genes on this panel. Variants of unknown clinical significance are detected in the following genes: ATR and BARD1 (Please see the Variants of Unknown Clinical Significance section, below). As the functional consequences of these variants are undetermined, the clinical utility of PARP inhibitor therapy in this case is uncertain Started on neoadjuvant chemotherapy with carboplatin and paclitaxel. She received 4 cycles prior to undergoing interval debulking surgery on 09/28/2022. Notes indicate had complete gross tumor debulking. Pathology: A. Soft tissue, anterior peritoneum, excision: - Fibroadipose tissue with focal dense fibrosis and rare infiltrating high-grade carcinoma. B. Omentum, excision: - Residual invasive high-grade adenocarcinoma and therapy-related changes present. Comment: The majority of tumor in all the specimens (A - E) has the appearance of high-grade serous carcinoma. Focal areas of tumor in parts B and D show clear cells features. However, by immunohistochemistry, these cells are negative for napsin-A, making clear cell carcinoma less likely. WT-1 is also negative. C. Uterus, cervix, bilateral fallopian tubes and ovaries, hysterectomy with bilateral salpingo-oophorectomy: - Residual high-grade carcinoma involving bilateral ovaries and fallopian tubes. - Uterus with inactive endometrium, and unremarkable myometrium and cervix. D. Small bowel nodule, excision: - High-grade carcinoma and therapy-related changes including fibrinous necrosis. E. Appendix, appendectomy: - Rare infiltrating carcinoma involving the mesoappendix. - Unremarkable tubular appendix. Completed 2 additional cycles carbo/paclitaxel November 2021. He is here today to discuss maintenance therapy. Patient's CA125 level is 28.2 U/mL.Ran at [facility]. Per Dr. Naranjo's note: Plan: Counseled the patient and her daughter today as far as treatment options. This would include going on a PARP inhibitor, Avastin or observation only. We discussed the fact that she is HRD and BRCA negative. We discussed that there was still an advantage to going on a PARP inhibitor. I did career technical counselor the patient as to the most common side effects of PARP inhibitors. We also discussed some of the more common signs and symptoms of recurrent cancer. The patient would like to start Zejula, will start at the medium dose, will watch CBC weekly for 1 month and then monthly thereafter. Discussed staying on the Zejula until evidence of disease progression or toxicity. ----- Started Zejula 12/20/2022 but developed diarrhea, fatigue, chest pain with palpitations that woke her by 12/22/2022. Saw cardiology 12/23 and was told EKG okay and could retry Zejula. Started on 12/26. 12/28 had blurry vision and couldn't see to drive. Decreased dose to 200 mg daily. 12/30 got palpitations again. Stopped altogether 01/02/2023. Went to [facility] in [place] where evidently CT scan 01/16/23 showed lesions in left lung, liver, and pelvis; it was not known whether these were new as she had no previous scans to compare. PET scan recommended. PET 02/06/2023: IMPRESSION: 1. NECK: * Asymmetric hypermetabolism along the right palatine tonsil, indeterminate. Recommend correlation with direct inspection. * Otherwise no FDG avid neoplastic process. 2. CHEST: * No FDG avid neoplastic process. * 9 mm left upper lobe groundglass/semisolid nodule is not FDG avid and likely represents a primary lung neoplasm along the adenocarcinoma spectrum. 3. ABDOMEN/PELVIS: * No FDG avid neoplastic process. 4. EXTREMITIES/SKELETON: * No suspicious FDG avid osseous lesion. RESULT: Pack Changer (topogram) images: No additional findings. - Mediastinum blood pool activity: Max SUV: 1.8 - Background liver activity: Max SUV: 2.4 HEAD AND NECK: Focal hypermetabolism along the right palatine tonsil (Max SUV 7.6) with associated soft tissue fullness. Physiologic uptake seen in the visualized brain, extraocular muscles, parapharyngeal soft tissues, base of tongue, vocal cords, and salivary glands. No FDG avid cervical lymphadenopathy or mass. No FDG avid thyroid lesion. CHEST: Right chest port terminates in the right atrium. Physiologic uptake in the heart and mediastinum. Lungs and tracheobronchial tree: -0.9 cm left apicoposterior groundglass/semisolid nodule without associated hypermetabolism (Max SUV 0.6). -Additional scattered smaller pulmonary nodules, for example a 4 mm nodule within the posterior right upper lobe, below the resolution of PET. -No hypermetabolic pulmonary lesions. -Emphysema. Note that PET/CT is not sensitive for pulmonary nodules less than 8 mm. Pleura: No FDG avid pleural effusion or pleural mass. Mediastinum and Lymph nodes: 0.9 cm right prevascular node with low level hypermetabolism (Max SUV 2.6), likely reactive. Heart and great vessels: Physiologic uptake in the heart. Chest wall and axilla: No FDG avid axillary lymphadenopathy. ABDOMEN AND PELVIS: Physiologic uptake seen in the and GI tracts. Liver: No FDG avid lesion. Low-attenuation lesion centered between the posterior aspect of the left hepatic lobe and the body of the pancreas, without associated hypermetabolism. Biliary: Gallbladder is unremarkable. Spleen: No FDG avid lesion. No splenomegaly. Pancreas: No FDG avid lesion. Adrenals: No FDG avid lesion. Kidneys: No stones, hydronephrosis, or FDG avid lesions. GI tract: No dilation or focal suspicious FDG avid lesion. Lymph nodes: No FDG avid abdominal or pelvic lymphadenopathy. Left external iliac/obturator node measures 0.7 cm and has expected low level hypermetabolism (Max SUV 1.8). Mesentery/Peritoneum: No ascites or FDG avid mass. Vasculature: Vascular patency cannot be assessed due to lack of IV contrast. Atherosclerotic calcifications of the abdominal aorta and iliac vessels without aneurysm. Pelvis: Hysterectomy. No ascites, focal fluid collection, or hypermetabolic lesion. Abdominopelvic wall: Postsurgical changes along the ventral pelvic wall with expected low level hypermetabolism. BONES AND EXTREMITIES: No suspicious FDG avid osseous lesion. The imaged portions of the skeleton demonstrates age-related degenerative changes. No destructive osseous lesions. Previous therapy: 1) Carboplatin and paclitaxel x4 cycles. 2) Interval debulking surgery 09/28/2022 3) Carboplatin and paclitaxel x2 cycles. Completed 11/2022. 4) Zejula. Did not tolerate due to side effects (see above). Post op had abdominal pain (incisional pain?) and saw palliative care and was prescribed gabapentin which helped significantly. Now has mild ghost pain on occasion and continues gabapentin to help her sleep--Tried stopping and significant flare of anxiety. Has had buproprion, Vistaril and Effexor from PCP in the past. Tried 0.5 mg lorazepam for PET and it made her very sedate. Quit smoking at time of ovarian cancer diagnosis. Has episodic dyspnea---can happen at rest or with exertion but never consistently. However she noticed a gradual worsening of BORJAS. No further palpitations. No exertional chest pain/pressure. Saw Dr. Scruggs, shovel oiler at [facility]: The preferred approach would be transthoracic needle aspiration under CT scan guidance. Since she has no blebs within 3 cm of the lesion, I believe her risk of procedure would be between 5 and 15% chance of pneumothorax. If the lesion is a lung primary, there is no outcome difference between the biopsy now and waiting 3 months to watch behavior, biopsying it if it enlarges in 3 months. If it is an ovarian metastasis, the best approach would be to biopsy the PET positive tonsillar enlargement, treat that, and observe the behavior of the lung lesion. If it is an ovarian metastasis and responds to treatment, and recedes on her next CAT scan, we will have avoided a biopsy. -I therefore recommend that her tonsil lesion be biopsied by ENT (first visit with Dr. Gregory tomorrow), and take a watchful waiting approach regarding the left upper lobe lesion for now, to readdress it in 3 months. Both of these options were discussed with the patient, she was given the option to biopsy now, and we agreed that it may be more prudent and would not change the outcome of a small lung lesion to wait for 3 months on the lung lesion biopsy. -Meanwhile we will evaluate her COPD, she has excellent functional status, and we will add bronchodilators if necessary. Underwent b/l tonsillectomy. No malignancy. Current therapy: 1) Gemcitabine/carboplatin/bevacizu mab. Cycle #1 began 05/12/2023. Was seen in the ED on 05/08 for worsening shortness of breath. Found to have increasing right pleural effusion. She underwent thoracentesis in which 80 cc of cloudy chloe fluid was removed. 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 Presents for ongoing oncologic management. Interim history: Fell down a slide. Hit lower right ribs. Pain there with breathing but not short of breath. No recurrence of dyspnea to the degree that led to ED visit and thoracentesis. Mood doing well on Cymbalta. Has sensory neuropathy manifested as a tingling in fingertips and toes--stable. I feel better after getting chemotherapy. I'm eating non-stop. No nausea. No abdominal pain or bloating. Bowels--moving regularly. No diarrhea. PMH, medications and allergies personally reviewed by me today. Any changes documented in appropriate section. Social History Tobacco Use Smoking status: Former Packs/day: 0.50 Years: 40.00 Additional pack years: 0.00 Total pack years: 20.00 Types: Cigarettes Quit date: 06/23/2022 Years since quittin.9 Smokeless tobacco: Never Vaping Use Vaping Use: Never used Substance Use Topics Alcohol use: No Drug use: No Family History Problem Relation Age of Onset Thyroid Mother Hypertension Father Heart Father Thyroid Sister Half-sister other (CHF) Sister Thyroid Sister Half-sister Colon Cancer Sister Thyroid Sister Half-sister Hypertension Brother Cancer Maternal Grandmother OVARIAN Hypertension Maternal Grandfather Cancer Maternal Grandfather LUNG Lung Cancer Paternal Grandmother ROS: Constitutional: Denies episodes of fever and night sweats. Neuro: Denies vertigo, dizziness and imbalance. HEENT: No recent change in voice, vision or hearing. Resp: See HPI. CVS: See HPI. GI: Denies dysphagia and odynophagia. Denies reflux, n/v, change in bowel habits and abdominal pain. : Denies dysuria or gross hematuria. Endo: Denies hot flashes. Denies polyuria and polydipsia. Denies heat and cold intolerance. Musculoskeletal: No bone, back, joint and muscular pain. Derm: Denies rash. Denies jaundice and diffuse pruritis. Heme: Denies unusual bleeding and unexplained bruising. Psych: Anxiety. PHYSICAL EXAM: Vitals: Blood pressure 129/78, pulse 92, temperature 36.6 C (97.9 F), weight 48.1 kg (106 lb), last menstrual period 03/23/2012. Well-appearing and in no acute distress. EYES: Sclerae are anicteric bilaterally. LYMPHATIC: There is no palpable cervical or supraclavicular adenopathy. RESPIRATORY: Inspiratory vesicular breath sounds are of diminished intensity in all cruz. Absent right base. CARDIOVASCULAR: Rhythm is regular. ABDOMEN: The abdomen is nondistended. No organomegaly. Nontender today. No fluid wave. Extremities: No swelling or edema. SKIN: No jaundice. 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 No focal motor weakness. LABORATORY DATA: Component Latest Ref Rng & Units 06/22/2023 WBC 3.70 - 11.00 k/uL 6.64 RBC 3.90 - 5.20 m/uL 4.19 Hemoglobin 11.5 - 15.5 g/dL 11.8 Hematocrit 36.0 - 46.0 % 36.0 MCV 80.0 - 100.0 fL 85.9 MCH 26.0 - 34.0 pg 28.2 MCHC 30.5 - 36.0 g/dL 32.8 RDW-CV 11.5 - 15.0 % 17.7 (H) Platelet Count 150 - 400 k/uL 340 MPV 9.0 - 12.7 fL 9.1 Neut% % 54.4 Abs Neut (ANC) 1.45 - 7.50 k/uL 3.61 Lymph% % 32.4 Abs Lymph 1.00 - 4.00 k/uL 2.15 Clay% % 10.8 Abs Clay <0.87 k/uL 0.72 Eosin% % 1.2 Abs Eosin <0.46 k/uL 0.08 Baso% % 0.9 Abs Baso <0.11 k/uL 0.06 Immature Gran % % 0.3 IMMATURE GRANS (ABS) <0.10 k/uL <0.03 NRBC /100 WBC 0.0 Absolute nRBC <0.01 k/uL <0.01 DTYPE Auto Protein, Total 6.3 - 8.0 g/dL 7.4 Albumin 3.9 - 4.9 g/dL 4.2 Calcium 8.5 - 10.2 mg/dL 9.7 Bilirubin, Total 0.2 - 1.3 mg/dL 0.2 Alkaline Phosphatase 34 - 123 U/L 76 AST 13 - 35 U/L 16 ALT 7 - 38 U/L 12 Glucose 74 - 99 mg/dL 108 (H) BUN 7 - 21 mg/dL 14 Creatinine 0.58 - 0.96 mg/dL 0.75 Sodium 136 - 144 mmol/L 137 Potassium 3.7 - 5.1 mmol/L 4.1 Chloride 97 - 105 mmol/L 103 CO2 22 - 30 mmol/L 24 Anion Gap 9 - 18 mmol/L 10 eGFR >=60 mL/min/1.73m 93 Magnesium 1.7 - 2.3 mg/dL 1.9 Component Latest Ref Rng & Units 03/22/2023 05/12/2023 05/19/2023 CA 125 <39 U/mL 112 (H) 220 (H) 225 (H) Component Latest Ref Rng & Units 05/31/2023 GLUCOSE UA (POCT) Negative mg/dL Negative BILIRUBIN UA (POCT) Negative Negative KETONE UA (POCT) Negative mg/dL Negative SPECIFIC GRAVITY UA (POCT) 1.005 - 1.030 1.020 HEMOGLOBIN/BLOOD UA (POCT) Negative Negative PH UA (POCT) 4.5 - 8.0 7.0 PROTEIN UA (POCT) Negative mg/dL 30 (A) UROBILINOGEN UA (POCT) Normal E.U./dL 0.2 NITRITE UA (POCT) Negative Negative LEUKOCYTES UA (POCT) Negative Negative COLOR UA (POCT) Dark yellow CLARITY UA (POCT) Slightly Cloudy PFTs at [facility] 02/17/2023: Forced expiration spirometry demonstrates the presence of a mild large airways obstructive ventilatory defect. There was no significant response to aerosolized bronchodilators. Spirograms are of fair quality and plateau normally. Body plethysmography was performed and revealed lung volumes to be within normal limits. Diffusing capacity by single breath CO was likewise within normal limits. IMPRESSION: Irreversible mild large airways obstructive ventilatory impairment with preserved lung volumes and diffusing capacity. 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 -Genetic testing performed through [employer]: Negative for BRCA1/2 and 24 other relevant genes. -Most recent CA125 was obtained at [facility]. 29.7 U/mL. -PET scan negative for ovarian cancer, but not optimal to evaluate carcinomatosis. -Intolerant to Zejula as maintenance. -Had progressive disease as evidenced by malignant pleural effusion. -Tolerating gemcitabine, carboplatin and bevacizumab fairly well but she had quite a bit of added toxicity after day [address] Romo. Trial of omitting day 8. Discussed Avastin could be used for maintenance. -CA125 up a bit but she is getting very good palliative effect from chemotherapy and has no symptoms of malignancy currently. We discussed continuing her treatment. If CT scans demonstrate progressive disease following cycle 3, then consider Doxil or Elahere depending on the results of her NGS testing. Plan: -Okay for cycle #3 tomorrow. -Omit day 8 gemcitabine secondary to toxicity she had previously. -Plan CT scans after cycle #3--scheduled 07/07. -OV/CBC/CMP/Mg/CA125 for cycle #3. -Screening for proteinuria with urine dipstick each cycle. (I25.10) Coronary artery disease involving [place] coronary artery of [place] heart without angina pectoris (Z95.5) History of coronary artery stent placement Assessment: -Had PCI for IA with one stent placed 08/2021. Post Covid. -Completed dual antiplatelet therapy with ASA and clopidogrel (was intolerant to Brilinta) x1 year. -Now on aspirin alone. Plan: -Follow-up with cardiology. (J44.9) Chronic obstructive pulmonary disease, unspecified COPD type (HCC) Assessment: -Former smoker. -COPD. -PFT results noted. Plan: -Follow up with Dr. Scruggs. (R91.1) Incidental lung nodule, greater than or equal to 8mm Assessment: -Incidental finding of 9 mm groundglass/semisolid left upper lobe nodule on recent PET scan. Personally reviewed images with her and her son. -In retrospect, was present but smaller on CTA done [facility] 07/28/2022. -Appreciate Dr. Scruggs's previous recommendations. Plan: -Monitor with follow up CT. 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 -Stable on current therapy. Plan: -Continue Cymbalta. (F41.1, C80.1) Anxiety associated with cancer diagnosis (HCC) Assessment: -Cymbalta has helped significantly. Plan: -Cymbalta 30 mg daily. -Ativan 0.25 mg 3 times daily as needed. (O22.30) DVT (deep vein thrombosis) in Assessment: -She had a remote provoked DVT during first in 1984. -Nonetheless she is at increased risk of recurrent VTE given underlying cancer diagnosis. -No clear indication for prophylactic anticoagulation. Discussed monitoring for symptoms. Plan: -Monitor. (N63.0) Breast nodule Assessment: -Imaging revealed simple cyst. Plan: -Return to annual screening mammogram. Portions of this documentation were copied and pasted from previous office visit notes in order to provide a cohesive continuity of the history. The note has been reviewed and edited and updated as necessary. I spent a total of 30 minutes on the date of the service which included preparing to see the patient, [id number] patient care, completing clinical documentation, obtaining and/or reviewing separately obtained history, performing a medically appropriate examination, counseling and educating the patient/family/caregiver, ordering medications, tests, or procedures, communicating with other HCPs (not separately reported), and communicating results to the patient/family/caregiver. Bk Lenz DO documented in this encounter [facility] 06-22-2023 History of Presen t illness Narrative Radiology Service Progress Note PATIENT NAME: Evelyn Mccabe DATE OF SERVICE: June 22, 2023 TIME: 11:05 AM PATIENT IDENTITY VERIFICATION COMPLETED USING TWO (2) IDENTIFIERS: Name and Date of confirmed by patient verbally. FALL SCREENING: Has the patient had 2 falls in the last year or 1 fall with injury or currently using an Ambulatory Assistive Device (Walker, Cane, Wheelchair, Crutches, etc.)? No PATIENT GENDER DATA: Female. status: : No status: NO. PATIENT RELEVANT IMPLANT DATA REVIEWED: Not Applicable RADIOLOGY DEPARTMENT: General X-ray: Exam(s) Completed: Chest X-Ray PERIPHERAL IV DATA: Not applicable SIGNED BY: RT Kristofer(R) June 22, 2023 11:05 AM documented in this encounter [facility] 06-22-2023 History of Presen t illness Narrative Patient is here for IVAD port flush/blood draw per [facility] protocol. IVAD is located in right upper chest. Site cleansed with Chloraprep IVAD accessed with a #20 gauge 3/4 non-coring Gripper needle Flush with 5cc's Normal Saline. Blood Return: Good. 10 cc's blood aspirated and discarded. Blood drawn for CBC, CMP, MAG, and Ca-125. Flushed with: 20 ml Normal Saline and 5 ml Heparin Lock Flush. Non-coring needle left intact per patient request for treatment tomorrow. Opsite applied to puncture site. Site negative for redness, edema or tenderness. Patient tolerated procedure well. documented in this encounter [facility] 06-20-2023 Miscellaneous Notes Called and spoke with patient letting her know that patient has CT scans scheduled on 07/07 at 9 am at [facility] and a Virtual visit on 07/12 at 440 pm to review her scans. Patient understood. documented in this encounter [facility] 06-14-2023 Miscellaneous Notes Pt notified. Stated understanding. Can let her know that the diagnostic mammogram and ultrasound revealed the small nodule to be a benign appearing cyst. Can resume annual screening mammogram. Bk Lenz DO documented in this encounter [facility] 06-13-2023 History of Presen t illness Narrative Radiology Service Progress Note PATIENT NAME: Evelyn Mccabe DATE OF SERVICE: June 13, 2023 TIME: 1:18 PM PATIENT IDENTITY VERIFICATION COMPLETED USING TWO (2) IDENTIFIERS: Name and Date of confirmed by patient verbally. FALL SCREENING: Has the patient had 2 falls in the last year or 1 fall with injury or currently using an Ambulatory Assistive Device (Walker, Cane, Wheelchair, Crutches, etc.)? No PATIENT GENDER DATA: Female. status: : No status: NO. PATIENT RELEVANT IMPLANT DATA REVIEWED: Not Applicable RADIOLOGY DEPARTMENT: Ultrasound PERIPHERAL IV DATA: Not applicable SIGNED BY: Marisol Balderrama RDMS RVT June 13, 2023 1:18 PM documented in this encounter [facility] 06-13-2023 History of Presen t illness Narrative Radiology Service Progress Note PATIENT NAME: Evelyn Mccabe DATE OF SERVICE: June 13, 2023 TIME: 8:10 AM PATIENT IDENTITY VERIFICATION COMPLETED USING TWO (2) IDENTIFIERS: Name and Date of confirmed by patient verbally. FALL SCREENING: Has the patient had 2 falls in the last year or 1 fall with injury or currently using an Ambulatory Assistive Device (Walker, Cane, Wheelchair, Crutches, etc.)? No PATIENT GENDER DATA: Female. status: : No status: NO. PATIENT RELEVANT IMPLANT DATA REVIEWED: Not Applicable RADIOLOGY DEPARTMENT: Mammography PERIPHERAL IV DATA: Not applicable SIGNED BY: Maritza Edgar June 13, 2023 8:10 AM documented in this encounter [facility] 06-02-[address] Lenz, he spoke to patient about this. Chloe Zambrano RN Pt. And family concerned that her CA-125 continues to increase. Wondering since tumor markers are increasing instead of decreasing how long we wait to look at other options? Pt. Currently here getting tx , in RM#3 if you have a moment. If not this is their concern. Bailey Hannah LPN documented in this encounter [facility] 06-02-2023 Miscellaneous Notes Spoke with pt. She is aware. Bailey Hannah LPN Call to patient, message left to call me back and phone/contact number provided. Becky Swenson RN She will get a dose of dexamethasone tomorrow with treatment. I sent in a prescription for Medrol Dosepak but would ask her to hold off starting it unless she develops a rash. Bk Lenz DO Patient states she had an allergic reaction to last infusion and had to take steroids. She is asking if she needs to have steroids prior to treatment on Monday. Please advise. documented in this encounter [facility] 06-02-2023 History of Presen t illness Narrative Assessment unchanged from 05/31/[address] Lenz documented in this encounter [facility] 06-01-2023 Miscellaneous Notes Pt scheduled for mammogram. Angelica Dasilva Ma Order filed Colin Sofia MD See pended order and file. Ana Barton Ma Please enter a bilateral diagnostic mammogram order, pt last mamm was 2020, thanks! documented in this encounter [facility] 05-31-2023 History of Presen t illness Narrative Radiology Service Progress Note PATIENT NAME: Evelyn Mccabe DATE OF SERVICE: May 31, 2023 TIME: 9:13 AM PATIENT IDENTITY VERIFICATION COMPLETED USING TWO (2) IDENTIFIERS: Name and Date of confirmed by patient verbally. FALL SCREENING: Has the patient had 2 falls in the last year or 1 fall with injury or currently using an Ambulatory Assistive Device (Walker, Cane, Wheelchair, Crutches, etc.)? No PATIENT GENDER DATA: Female. status: : No status: NO. PATIENT RELEVANT IMPLANT DATA REVIEWED: Not Applicable RADIOLOGY DEPARTMENT: General X-ray: Exam(s) Completed: Chest X-Ray PERIPHERAL IV DATA: Not applicable SIGNED BY: RT Kristofer(R) May 31, 2023 9:13 AM documented in this encounter [facility] 05-31-2023 History of Presen t illness Narrative Oncologic problem(s): 1) 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 2) Remote DVT-- associated. HPI: The patient is a 57-year-old female with a past medical history significant for smoking (quit 06/2022), CAD (08/2021 following mildly symptomatic Covid, developed chest pain first day back to work--IA; PCI x1 stent--ASA and Brilinta (stopped Brilinta after a week due to nausea and diarrhea--took Plavix for a year), remote DVT (first in 1984) and ovarian cancer. Developed change in bowel habits spring 2021. Then developed abdominal pain summer 2021. Admitted [facility] via ED 06/20/2022. Per admitting hospitalist then onset 04/2022 ongoing persistent dull aching with occasional sharp stabbing periumbical abdominal pain, rated 2-5/10 in severity with nausea without emesis and night sweats with no diarrhea and normal once daily in AM bowel movements with PCP evaluation with outpatient US which was reportedly normal with ED evaluation 06/13/[address] A/P w/ reported gastritis and ascites and normal labs with discharge to home with follow-up PCP directed 06/17/22 MRI with moderate volume ascites with two thin walled well defined fluid collections without enhancement (1.2 x 0.8, 3.6 x 2.7 cm) in the LLQ with referral made to GI Dr. Rajput who now re-presents to the [facility] ED on 06/20/22 history of ongoing constant abdominal pain in the similar region but worsened, rated pain for the last 1-2 weeks 8-10/10 in severity with ~9 lb weight loss with decreased oral intake and ongoing night sweats. US 06/22/2022 at [facility]: MPRESSION: 1. Normal-size anteverted uterus with a hyperechoic 3 mm thick endometrium. 2. No evidence of uterine cyst or solid mass lesions. 3. Normal cervix. 4. Mildly lobulated right ovary measuring 3.5 cm to 2.7 x 2.4 cm without distinct cystic or solid lesions. 5. Left ovary is not visualized. 6. Large amount of fluid or ascites in the cul-de-sac. 7. No evidence of adnexal masses or peritoneal implants. Referred to Dr. Hyatt. Underwent laparoscopy with findings of diffuse carcinomatosis and biopsy at [facility] 06/28/2022. Pathology: PERITONEUM, BIOPSIES - HIGH-GRADE ADENOCARCINOMA. SEE COMMENT. 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 These malignant cells stain positive with CK7, PAX 8, patchy positivity with calretinin and weak focal ER positivity, and negative for CK20, GATA3 and WT1. A p53 demonstrates a null phenotype. 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 SNVs/Indels - TP53 splice site c.782+1G>A Immuno-Oncology Biomarkers - PD-L1 LDT: Not Detected Interpretation: -TP53 (tumor protein P53) encodes a tumor suppressor protein that responds to cellular stresses, including gDNA damage and oncogenic activation, by inducing and modulating downstream anti-tumor responses such as DNA repair, recombination, and apoptosis. Currently, there are no approved therapies that directly target oncogenic alterations in TP53. However, experimental therapies that target and re-activate the transcriptional activity of mutant TP53 have been described and are currently under investigation. Early clinical trials data suggest oncogenic TP53 mutations may predict resistance to cisplatin chemotherapy, MDM2 inhibitors, and CDK4/CDK6 inhibitors. - No pathogenic mutations are present in any of the common homologous recombination repair genes on this panel. Variants of unknown clinical significance are detected in the following genes: ATR and BARD1 (Please see the Variants of Unknown Clinical Significance section, below). As the functional consequences of these variants are undetermined, the clinical utility of PARP inhibitor therapy in this case is uncertain Started on neoadjuvant chemotherapy with carboplatin and paclitaxel. She received 4 cycles prior to undergoing interval debulking surgery on 09/28/2022. Notes indicate had complete gross tumor debulking. Pathology: A. Soft tissue, anterior peritoneum, excision: - Fibroadipose tissue with focal dense fibrosis and rare infiltrating high-grade carcinoma. B. Omentum, excision: - Residual invasive high-grade adenocarcinoma and therapy-related changes present. Comment: The majority of tumor in all the specimens (A - E) has the appearance of high-grade serous carcinoma. Focal areas of tumor in parts B and D show clear cells features. However, by immunohistochemistry, these cells are negative for napsin-A, making clear cell carcinoma less likely. WT-1 is also negative. C. Uterus, cervix, bilateral fallopian tubes and ovaries, hysterectomy with bilateral salpingo-oophorectomy: - Residual high-grade carcinoma involving bilateral ovaries and fallopian tubes. - Uterus with inactive endometrium, and unremarkable myometrium and cervix. D. Small bowel nodule, excision: - High-grade carcinoma and therapy-related changes including fibrinous necrosis. E. Appendix, appendectomy: - Rare infiltrating carcinoma involving the mesoappendix. - Unremarkable tubular appendix. Completed 2 additional cycles carbo/paclitaxel November 2021. He is here today to discuss maintenance therapy. Patient's CA125 level is 28.2 U/mL.Ran at [facility]. Per Dr. Naranjo's note: Plan: Counseled the patient and her daughter today as far as treatment options. This would include going on a PARP inhibitor, Avastin or observation only. We discussed the fact that she is HRD and BRCA negative. We discussed that there was still an advantage to going on a PARP inhibitor. I did career technical counselor the patient as to the most common side effects of PARP inhibitors. We also discussed some of the more common signs and symptoms of recurrent cancer. The patient would like to start Zejula, will start at the medium dose, will watch CBC weekly for 1 month and then monthly thereafter. Discussed staying on the Zejula until evidence of disease progression or toxicity. ----- Started Zejula 12/20/2022 but developed diarrhea, fatigue, chest pain with palpitations that woke her by 12/22/2022. Saw cardiology 12/23 and was told EKG okay and could retry Zejula. Started on 12/26. 12/28 had blurry vision and couldn't see to drive. Decreased dose to 200 mg daily. 12/30 got palpitations again. Stopped altogether 01/02/2023. Went to [facility] in [place] where evidently CT scan 01/16/23 showed lesions in left lung, liver, and pelvis; it was not known whether these were new as she had no previous scans to compare. PET scan recommended. PET 02/06/2023: IMPRESSION: 1. NECK: * Asymmetric hypermetabolism along the right palatine tonsil, indeterminate. Recommend correlation with direct inspection. * Otherwise no FDG avid neoplastic process. 2. CHEST: * No FDG avid neoplastic process. * 9 mm left upper lobe groundglass/semisolid nodule is not FDG avid and likely represents a primary lung neoplasm along the adenocarcinoma spectrum. 3. ABDOMEN/PELVIS: * No FDG avid neoplastic process. 4. EXTREMITIES/SKELETON: * No suspicious FDG avid osseous lesion. RESULT: Pack Changer (topogram) images: No additional findings. - Mediastinum blood pool activity: Max SUV: 1.8 - Background liver activity: Max SUV: 2.4 HEAD AND NECK: Focal hypermetabolism along the right palatine tonsil (Max SUV 7.6) with associated soft tissue fullness. Physiologic uptake seen in the visualized brain, extraocular muscles, parapharyngeal soft tissues, base of tongue, vocal cords, and salivary glands. No FDG avid cervical lymphadenopathy or mass. No FDG avid thyroid lesion. CHEST: Right chest port terminates in the right atrium. Physiologic uptake in the heart and mediastinum. Lungs and tracheobronchial tree: -0.9 cm left apicoposterior groundglass/semisolid nodule without associated hypermetabolism (Max SUV 0.6). -Additional scattered smaller pulmonary nodules, for example a 4 mm nodule within the posterior right upper lobe, below the resolution of PET. -No hypermetabolic pulmonary lesions. -Emphysema. Note that PET/CT is not sensitive for pulmonary nodules less than 8 mm. Pleura: No FDG avid pleural effusion or pleural mass. Mediastinum and Lymph nodes: 0.9 cm right prevascular node with low level hypermetabolism (Max SUV 2.6), likely reactive. Heart and great vessels: Physiologic uptake in the heart. Chest wall and axilla: No FDG avid axillary lymphadenopathy. ABDOMEN AND PELVIS: Physiologic uptake seen in the and GI tracts. Liver: No FDG avid lesion. Low-attenuation lesion centered between the posterior aspect of the left hepatic lobe and the body of the pancreas, without associated hypermetabolism. Biliary: Gallbladder is unremarkable. Spleen: No FDG avid lesion. No splenomegaly. Pancreas: No FDG avid lesion. Adrenals: No FDG avid lesion. Kidneys: No stones, hydronephrosis, or FDG avid lesions. GI tract: No dilation or focal suspicious FDG avid lesion. Lymph nodes: No FDG avid abdominal or pelvic lymphadenopathy. Left external iliac/obturator node measures 0.7 cm and has expected low level hypermetabolism (Max SUV 1.8). Mesentery/Peritoneum: No ascites or FDG avid mass. Vasculature: Vascular patency cannot be assessed due to lack of IV contrast. Atherosclerotic calcifications of the abdominal aorta and iliac vessels without aneurysm. Pelvis: Hysterectomy. No ascites, focal fluid collection, or hypermetabolic lesion. Abdominopelvic wall: Postsurgical changes along the ventral pelvic wall with expected low level hypermetabolism. BONES AND EXTREMITIES: No suspicious FDG avid osseous lesion. The imaged portions of the skeleton demonstrates age-related degenerative changes. No destructive osseous lesions. Previous therapy: 1) Carboplatin and paclitaxel x4 cycles. 2) Interval debulking surgery 09/28/2022 3) Carboplatin and paclitaxel x2 cycles. Completed 11/2022. 4) Zejula. Did not tolerate due to side effects (see above). Post op had abdominal pain (incisional pain?) and saw palliative care and was prescribed gabapentin which helped significantly. Now has mild ghost pain on occasion and continues gabapentin to help her sleep--Tried stopping and significant flare of anxiety. Has had buproprion, Vistaril and Effexor from PCP in the past. Tried 0.5 mg lorazepam for PET and it made her very sedate. Quit smoking at time of ovarian cancer diagnosis. Has episodic dyspnea---can happen at rest or with exertion but never consistently. However she noticed a gradual worsening of BORJAS. No further palpitations. No exertional chest pain/pressure. Saw Dr. Scruggs, shovel oiler at [facility]: The preferred approach would be transthoracic needle aspiration under CT scan guidance. Since she has no blebs within 3 cm of the lesion, I believe her risk of procedure would be between 5 and 15% chance of pneumothorax. If the lesion is a lung primary, there is no outcome difference between the biopsy now and waiting 3 months to watch behavior, biopsying it if it enlarges in 3 months. If it is an ovarian metastasis, the best approach would be to biopsy the PET positive tonsillar enlargement, treat that, and observe the behavior of the lung lesion. If it is an ovarian metastasis and responds to treatment, and recedes on her next CAT scan, we will have avoided a biopsy. -I therefore recommend that her tonsil lesion be biopsied by ENT (first visit with Dr. Gregory tomorrow), and take a watchful waiting approach regarding the left upper lobe lesion for now, to readdress it in 3 months. Both of these options were discussed with the patient, she was given the option to biopsy now, and we agreed that it may be more prudent and would not change the outcome of a small lung lesion to wait for 3 months on the lung lesion biopsy. -Meanwhile we will evaluate her COPD, she has excellent functional status, and we will add bronchodilators if necessary. Underwent b/l tonsillectomy. No malignancy. Current therapy: 1) Gemcitabine/carboplatin/bevacizu mab. Cycle #1 began 05/12/2023. Presents for ongoing oncologic management. Interim history: Was seen in the ED on 05/08 for worsening shortness of breath. Found to have increasing right pleural effusion. She underwent thoracentesis in which 80 cc of cloudy chloe fluid was removed. 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 Fell in shower and bruised left sided ribs. Rash resolved after Medrol dose pack. Lot of malaise and nausea after day 8 gem. Found nodule upper outer right breast. No recurrence of dyspnea to the degree that led to ED visit and thoracentesis. Didn't try Cymbalta yet. Successfully weaning gabapentin. Has sensory neuropathy manifested as a tingling in fingertips and toes--stable. No abdominal pain or bloating. Bowels-- perfect. Anxiety much better on Cymbalta. PMH, medications and allergies personally reviewed by me today. Any changes documented in appropriate section. Social History Tobacco Use Smoking status: Former Packs/day: 0.50 Years: 25.00 Additional pack years: 0.00 Total pack years: 12.50 Types: Cigarettes Quit date: 06/23/2022 Years since quittin.9 Smokeless tobacco: Never Tobacco comments: 0 - 1 cigarette per day Vaping Use Vaping Use: Never used Substance Use Topics Alcohol use: No Drug use: No Family History Problem Relation Age of Onset Thyroid Mother Hypertension Father Heart Father Thyroid Sister Half-sister other (CHF) Sister Thyroid Sister Half-sister Colon Cancer Sister Thyroid Sister Half-sister Hypertension Brother Cancer Maternal Grandmother OVARIAN Hypertension Maternal Grandfather Cancer Maternal Grandfather LUNG Lung Cancer Paternal Grandmother ROS: Constitutional: Denies episodes of fever and night sweats. Neuro: Denies vertigo, dizziness and imbalance. HEENT: No recent change in voice, vision or hearing. Resp: See HPI. CVS: See HPI. GI: Denies dysphagia and odynophagia. Denies reflux, n/v, change in bowel habits and abdominal pain. : Denies dysuria or gross hematuria. Endo: Denies hot flashes. Denies polyuria and polydipsia. Denies heat and cold intolerance. Musculoskeletal: No bone, back, joint and muscular pain. Derm: Denies rash. Denies jaundice and diffuse pruritis. Heme: Denies unusual bleeding and unexplained bruising. Psych: Anxiety. PHYSICAL EXAM: Vitals: Blood pressure 115/78, pulse 77, temperature 36.7 C (98 F), temperature source Temporal, weight 47.2 kg (104 lb), last menstrual period 03/23/2012, SpO2 100 %. Well-appearing and in no acute distress. EYES: Sclerae are anicteric bilaterally. LYMPHATIC: There is no palpable cervical or supraclavicular adenopathy. RESPIRATORY: Inspiratory vesicular breath sounds are of diminished intensity in all cruz. Absent right base. CARDIOVASCULAR: Rhythm is regular. BREAST: Declined hothouse worker. Firm mobile nodule right UOQ that is mobile. No other mass in breast. No axillary adenopathy. ABDOMEN: The abdomen is nondistended. No organomegaly. Mild generalized tenderness. Extremities: No swelling or edema. SKIN: No jaundice. 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 No focal motor weakness. LABORATORY DATA: Component Latest Ref Rng & Units 05/31/2023 WBC 3.70 - 11.00 k/uL 3.88 RBC 3.90 - 5.20 m/uL 4.14 Hemoglobin 11.5 - 15.5 g/dL 11.5 Hematocrit 36.0 - 46.0 % 34.6 (L) MCV 80.0 - 100.0 fL 83.6 MCH 26.0 - 34.0 pg 27.8 MCHC 30.5 - 36.0 g/dL 33.2 RDW-CV 11.5 - 15.0 % 14.5 Platelet Count 150 - 400 k/uL 297 MPV 9.0 - 12.7 fL 9.2 Neut% % 45.6 Abs Neut (ANC) 1.45 - 7.50 k/uL 1.77 Lymph% % 34.3 Abs Lymph 1.00 - 4.00 k/uL 1.33 Clay% % 17.5 Abs Clay <0.87 k/uL 0.68 Eosin% % 1.5 Abs Eosin <0.46 k/uL 0.06 Baso% % 0.3 Abs Baso <0.11 k/uL <0.03 Immature Gran % % 0.8 IMMATURE GRANS (ABS) <0.10 k/uL 0.03 NRBC /100 WBC 0.0 Absolute nRBC <0.01 k/uL <0.01 DTYPE Auto Component Latest Ref Rng & Units 03/22/2023 05/12/2023 05/19/2023 CA 125 <39 U/mL 112 (H) 220 (H) 225 (H) Component Latest Ref Rng & Units 05/31/2023 GLUCOSE UA (POCT) Negative mg/dL Negative BILIRUBIN UA (POCT) Negative Negative KETONE UA (POCT) Negative mg/dL Negative SPECIFIC GRAVITY UA (POCT) 1.005 - 1.030 1.020 HEMOGLOBIN/BLOOD UA (POCT) Negative Negative PH UA (POCT) 4.5 - 8.0 7.0 PROTEIN UA (POCT) Negative mg/dL 30 (A) UROBILINOGEN UA (POCT) Normal E.U./dL 0.2 NITRITE UA (POCT) Negative Negative LEUKOCYTES UA (POCT) Negative Negative COLOR UA (POCT) Dark yellow CLARITY UA (POCT) Slightly Cloudy PFTs at [facility] 02/17/2023: Forced expiration spirometry demonstrates the presence of a mild large airways obstructive ventilatory defect. There was no significant response to aerosolized bronchodilators. Spirograms are of fair quality and plateau normally. Body plethysmography was performed and revealed lung volumes to be within normal limits. Diffusing capacity by single breath CO was likewise within normal limits. IMPRESSION: Irreversible mild large airways obstructive ventilatory impairment with preserved lung volumes and diffusing capacity. 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 -Genetic testing performed through [employer]: Negative for BRCA1/2 and 24 other relevant genes. -Most recent CA125 was obtained at [facility]. 29.7 U/mL. -PET scan negative for ovarian cancer, but not optimal to evaluate carcinomatosis. -Intolerant to Zejula as maintenance. -Had progressive disease as evidenced by malignant pleural effusion. -Tolerating gemcitabine, carboplatin and bevacizumab fairly well but she had quite a bit of added toxicity after day treatment. Discussed with Dr. Romo. Trial of omitting day 8. Discussed Avastin could be used for maintenance Plan: -Okay for cycle #2 this coming Monday. -Omit day 8 gemcitabine secondary to toxicity she had previously. -Chest x-ray each cycle. -Plan CT scans after cycle #3. -OV/CBC/CMP/Mg/CA125 for cycle #3. -Screening for proteinuria with urine dipstick each cycle. (I25.10) Coronary artery disease involving [place] coronary artery of [place] heart without angina pectoris (Z95.5) History of coronary artery stent placement Assessment: -Had PCI for IA with one stent placed 08/2021. Post Covid. -Completed dual antiplatelet therapy with ASA and clopidogrel (was intolerant to Brilinta) x1 year. -Now on aspirin alone. Plan: -Follow-up with cardiology. (J44.9) Chronic obstructive pulmonary disease, unspecified COPD type (HCC) Assessment: -Former smoker. -COPD. -PFT results noted. Plan: -Follow up with Dr. Scruggs. (R91.1) Incidental lung nodule, greater than or equal to 8mm Assessment: -Incidental finding of 9 mm groundglass/semisolid left upper lobe nodule on recent PET scan. Personally reviewed images with her and her son. -In retrospect, was present but smaller on CTA done [facility] 07/28/2022. -Appreciate Dr. Scruggs's previous recommendations. Plan: -Monitor with follow up CT. 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 Plan: -Trial of Cymbalta per below problem. (F41.1, C80.1) Anxiety associated with cancer diagnosis (HCC) Assessment: -Cymbalta has helped significantly. Plan: -Cymbalta 30 mg daily. -Ativan 0.25 mg 3 times daily as needed. (O22.30) DVT (deep vein thrombosis) in Assessment: -She had a remote provoked DVT during first in 1984. -Nonetheless she is at increased risk of recurrent VTE given underlying cancer diagnosis. -No clear indication for prophylactic anticoagulation. Discussed monitoring for symptoms. Plan: -Monitor. (N63.0) Breast nodule Assessment: -New problem. -Could be metastatic ovarian cancer but need to rule out new primary breast cancer. Plan: -Diagnostic right-sided mammogram and ultrasound PADMA. Portions of this documentation were copied and pasted from previous office visit notes in order to provide a cohesive continuity of the history. The note has been reviewed and edited and updated as necessary. I spent a total of 40 minutes on the date of the service which included preparing to see the patient, yodd-th-alvo patient care, completing clinical documentation, obtaining and/or reviewing separately obtained history, performing a medically appropriate examination, counseling and educating the patient/family/caregiver, ordering medications, tests, or procedures, communicating with other HCPs (not separately reported), and communicating results to the patient/family/caregiver. Bk Lenz DO documented in this encounter [facility] 05-26-2023 Miscellaneous Notes Spoke to patient. Patient only had one treatment prior to rechecking CA125. Patient aware Dr. Lenz is out of the office today and will be back in on Monday. Patient will discuss with Dr. Lenz next Monday. Patient had other questions/concerns regarding treatment plan. Answered questions to the best of my ability. Patient stated Dr. Romo is recommending dropping D8. Patient has concerns about this since her CA125 is higher after 1 treatment. Patient informed she can discuss this with Dr. Lenz on 05/31/23 to see what the best option would be for patient. Patient stated understanding of this. Chloe Zambrano RN Patient called with concerns that her CA125 is rising after infusions. She would like to speak to clinical. documented in this encounter [facility] 05-24-2023 History of Presen t illness Narrative [facility] VISIT This visit is a Virtual [facility] video visit encounter which required patient-provider interaction for the medical decision making as documented below. Persons Present: patient I have communicated my name and active licensure. The patient s identity and physical location were verified at the time of this visit. Evelyn Mccabe or their legal rental sales representative has been informed of the risks and benefits of -- and alternatives to -- treatment through a remote evaluation and consents to proceed with the evaluation remotely. HPI: HPI: Ms. Mccabe is a 57 year old female. She has PMH of CAD s/p IA with PCI stent, remove DVT (in 1984 with ). In Spring 2021 she developed a change in bowel habits, followed by abdominal pain. She went to her local ED late 05/[address] showed ascites and gastritis. She had MRI that showed moderate ascites with two thin walled fluid collection in the LLQ and referral was made to GI. She saw Dr. Hyatt as [place] and underwent laparoscopy and biopsy with findings of diffuse carcinomatosis 06/28/22. She completed 4 cycles of NACT followed by interval debulking on 09/28/22. She went on to completed 2 additional cycles of carbo/taxol completed November 2021. She is HRD and BRCA negative, started on zejula as maintenance in December 2022 with significant side effects despite dose reduction and it was stopped completely 3 weeks later. She then went to [facility] and reports a CT scan done in January showed new lesions in the lung, liver and pelvis. PET scan completed January 2023. Due to climbing CA125, although PET scan not notable for recurrence, Dr. Lenz is concerned for recurrence and recommends starting carbo/taxol/avastin. The patient had a heart attack in August 2021. Patient notes that health issues significantly increased her anxiety. Eventually started Cymbalta so she has been doing better. She had repeat CT scans that showed pleural effusion and worsening peritoneal carcinomatosis. She has since started carbo/gem/avastin with Dr. Lenz. Of note, she was evaluated in the ED when she returned from [place] due to SOB and pain. She underwent thoracentesis on 05/08/23 Total Time Spent: 20 minutes on this telephone encounter HISTORY REVIEWED (electronic chart updated): - medical history - medications - allergies Data Reviewed: Most recent labs and imaging results. 05/08/23 Cxray IMPRESSION: No pneumothorax status post right thoracentesis. 05/07/23 CT Chest IMPRESSION: Interval increase in size of right pleural effusion with associated lower lobe and middle lobe compressive atelectasis Stable long nodules and lymph nodes. Attention on follow-up. 04/28/23 CT Abd/pelvis IMPRESSION: Worsening peritoneal carcinomatosis, but with no measurable disease. SUBJECTIVE: Since last visit, she developed progressive symptoms. She noted worsening abdominal symptoms and SOB. She enjoyed a vacation and then returned and started therapy. On return from vacation, she could not breath and presented to [facility] and was admitted. She had a thoracentesis (+ cytology) and has had relief of symptoms since. While away, she had an injury to left chest wall. She was also diagnosed with COVID. She began 2 weeks ago - [place]/Carbo and presented for day#8 did not tolerate this. She was given steroids with improvement. She suffered with fatigue and nausea. This improved over several days. She now feels better but has lost weight since all this. Nonetheless, she has appetite, bowels working and no emesis. ECOG performance status is zero (fully active, able to carry on all pre-disease performance without restriction). VIDEO PHYSICAL EXAMINATION: (if done, performed via video enabled technology) GENERAL: alert and appropriate, in no distress, well-hydrated, well nourished, and happy, smiling, interactive ASSESSMENT: Advanced ovarian cancer s/p NACT now with increasing CA125 but no evidence of disease on PET scan. Options discussed in detail, recommend close follow up. PLAN: Ovarian cancer - now with recurrence, on [place]/Carbo/Avastin Follow CA [address] C/A/P after 3-4 cycles Consider dose reduction by dropping d#8 [place] Would consider maintenance Avastin if complete response achieved Ellie Romo Jr., MD CC: Dr Bk Lenz documented in this encounter [facility] 05-22-2023 Miscellaneous Notes Spoke with patient and aware of Rx. Christen Swenson RN Advise her to continue present care for rash and add Medrol Dosepak. Rx sent to her pharmacy. Bk Lenz DO Jessica Care Coordination FOLLOW-UP NOTE Patient identified by name and date of . YES Spoke to patient Summary: (Reason for follow-up) Update on Rash Concerns: (New Barriers to care) Patient calling with update on rash. States she is taking Benedryl [id number] and using Hydrocortisone cream several times daily. The rash on her legs and stomach is the same from Monday. She now has a rash on her right arm, from elbow to shoulder. She states it's the same type of rash. The Benedryl is helping with the itching but concerned b/c it's spreading and not getting better. She states that her mouth is continuing to feel better and has not needed to use the BMX solution. It using salt/soda rinses. Was at the dentist to have 2 teeth desensitized. Dentist evaluated mouth and did not advise anything different than what she is doing. She states she not myself since this last treatment, I feel run down and I don't feel good Unable to pin point anything specific. Has nausea off/on and using Zofran that she has. New Referrals Needed: No Is the patient having any pain? as discussed above Medication questions or concerns? no Patient verbalized when to seek Medical Attention and an understanding of after- hours phone number and process: Yes Care Coordination Plan: She is aware that I will discuss with Dr. Lenz and call back if any further instructions. Becky Swenson RN May 22, 2023 documented in this encounter [facility] 05-18-2023 Miscellaneous Notes Addressed in different phone encounter. Chloe Zambrano RN documented in this encounter [facility] 05-12-2023 Nurse Note Pt has tested negative for covid x2 within past 2 days. Initially tested on 05/07-resulted 05/08. documented in this encounter [facility] 05-12-[address] Lenz, is it OK to use 05/09 labs to treat today? Or do you prefer I wait until today's labs are resulted? Also, bevacizumab is signed, are we still going to hold that pending possible further thoracentesis? Thank you. Labs from 05/09 okay. I have given the bevacizumab a lot of thought and I would like her to go ahead and get it. She has particularly aggressive disease and the addition of bevacizumab may increase the chance of responding to the chemotherapy more quickly.-per Dr. Lenz. Secure chat copied and pasted to phone note for documentation purposes. documented in this encounter [facility] 05-11-2023 Miscellaneous Notes Call to patient and questions answered. Patient denies further needs and will be here tomorrow as planned to start treatment. Christen Swenson RN Daughter Lexi called stating patient has several questions regarding treatment scheduled for tomorrow. documented in this encounter [facility] 05-10-2023 Miscellaneous Notes Reason for call: Chemo Provider name: Marleny Additional comments: Patient is to start Chemo on 05/12, and has tested Positive for COVID on 05/07. Pleyanna call patient back and advise if she should still start Chemo on Mon [phone] Recommendation: routed to nurse triage pool documented in this encounter [facility] 05-10-2023 Miscellaneous Notes Patient has been identified by name and date of : Yes Last office visit in this department: Visit date not found RX INSTRUCTIONS: Patient aware RX will be sent to pharmacy. No need to notify patient. Patient phones requesting refills as follows: Requested Prescriptions Pending Prescriptions Disp Refills DULoxetine (CYMBALTA) 30 mg capsule 30 capsule 2 Sig: Take 1 capsule by mouth once daily. Please review and advise. Evelyn Valiente documented in this encounter [facility] 05-01-2023 Miscellaneous Notes Summary: Thoracentesis Left VM for pt to schedule thoracentesis at [facility]. Gave my direct number for her to call back, . documented in this encounter [facility] 05-01-2023 Miscellaneous Notes Spoke with Evelyn. She is having a little bit of a problem with breathing, can't sleep on her right side and when she breathes deeply it does take her breath away. She is in [place] on vacation through Monday with her family. She states 1.5 weeks ago she was having a dull pain all over her left and right side just for a few minutes and it would go away. It wasn't constant. +BMs every day, she feels really dry (her throat) and this has been since she had her tonsil taken out. When she drinks something she is fine and then an hour later it feels dry. No nausea or vomiting. Eating well, and energy is good. Reviewed CT scan findings in detail and recommendations of chemotherapy (carbo/gem as previously discussed with Dr. Lenz). She would like to get treatment in [place]. Would consider adding avastin given ascites and new large effusion. Patient will call to schedule treatment for when she is back; will plan to check labs (Monday or Monday) and schedule for thoracentesis at [facility] for when she is back in town. Reviewed concerning s/s that would warrant urgent evaluation. 04/28/23 CT Chest IMPRESSION: 1. New low-attenuation large right pleural effusion has developed. 2. Stable left upper lobe part solid and right upper lobe groundglass nodules measuring up to 1 cm, these nodes are indeterminate but may represent indolent neoplastic lesions in adenocarcinoma spectrum. Recommend continued attention on follow-up. 3. No lymph node enlargement in the thorax. 04/28/23 CT Abd/pelvis IMPRESSION: Worsening peritoneal carcinomatosis, but with no measurable disease. Ora Walton APRN.VENDOR MANAGER documented in this encounter [facility] 04-28-2023 History of Presen t illness Narrative Radiology Service Progress Note PATIENT NAME: Evelyn Mccabe DATE OF SERVICE: April 28, 2023 TIME: 4:16 PM PATIENT IDENTITY VERIFICATION COMPLETED USING TWO (2) IDENTIFIERS: Name and Date of confirmed by patient verbally. FALL SCREENING: Has the patient had 2 falls in the last year or 1 fall with injury or currently using an Ambulatory Assistive Device (Walker, Cane, Wheelchair, Crutches, etc.)? No PATIENT GENDER DATA: Female. status: : No status: NO. PATIENT RELEVANT IMPLANT DATA REVIEWED: Yes RADIOLOGY DEPARTMENT: CT; Exam(s) Completed: Chest Abdomen Pelvis PERIPHERAL IV DATA: power port accessed by [employer] SIGNED BY: RT Angus(R) April 28, 2023 4:16 PM documented in this encounter [facility] 04-05-2023 Miscellaneous Notes Called and spoke with patient. Made patient aware that she is schedule for CT scans on 04/28 and virtual visit on 05/03. Patient agreeable. documented in this encounter [facility] 03-30-2023 Miscellaneous Notes No f/u. please advise on Rx request. Gayla Roberto LPN documented in this encounter [facility] 03-22-2023 Miscellaneous Notes Cancelled as directed. Varsha Per patient, patient does not need chemotherapy at this time. Please cancel all future appointments with our office since patient will be following with Dr. Romo for now. Thank you. Chloe Zambrano RN documented in this encounter [facility] 03-22-2023 History of Presen t illness Narrative DATE OF SERVICE: 03/22/2023 PROBLEM: Evelyn Mccabe is a consult from Dr. Lenz for evaluation of recurrent ovarian cancer. HPI: Ms. Mccabe is a 57 year old female. She has PMH of CAD s/p IA with PCI stent, remove DVT (in 1984 with ). In Spring 2021 she developed a change in bowel habits, followed by abdominal pain. She went to her local ED late 05/[address] showed ascites and gastritis. She had MRI that showed moderate ascites with two thin walled fluid collection in the LLQ and referral was made to GI. She saw Dr. Hyatt as [place] and underwent laparoscopy and biopsy with findings of diffuse carcinomatosis 06/28/22. She completed 4 cycles of NACT followed by interval debulking on 09/28/22. She went on to completed 2 additional cycles of carbo/taxol completed November 2021. She is HRD and BRCA negative, started on zejula as maintenance in December 2022 with significant side effects despite dose reduction and it was stopped completely 3 weeks later. She then went to [facility] and reports a CT scan done in January showed new lesions in the lung, liver and pelvis. PET scan completed January 2023. Due to climbing CA125, although PET scan not notable for recurrence, Dr. Lenz is concerned for recurrence and recommends starting carbo/taxol/avastin. The patient had a heart attack in August 2021. Patient notes that health issues significantly increased her anxiety. Eventually started Cymbalta so she has been doing better. IMAGIN02/03/23 PET/CT IMPRESSION: 1. NECK: * Asymmetric hypermetabolism along the right palatine tonsil, indeterminate. Recommend correlation with direct inspection. * Otherwise no FDG avid neoplastic process. 2. CHEST: * No FDG avid neoplastic process. * 9 mm left upper lobe groundglass/semisolid nodule is not FDG avid and likely represents a primary lung neoplasm along the adenocarcinoma spectrum. 3. ABDOMEN/PELVIS: * No FDG avid neoplastic process. 4. EXTREMITIES/SKELETON: * No suspicious FDG avid osseous lesion. LABS: CA 125 (U/mL) Date Value 03/22/2023 112 02/09/2023 56 03/01/2021 38 01/03/2020 19 PAST GYNECOLOGIC HISTORY: OB History T0 L3 SAB0 IAB0 Ectopic0 Multiple0 Live Births0 LMP: Patient's last menstrual period was 03/23/2012. Hormonal contraceptives: No. HRT use: No. History of abnormal pap: Yes Last pap: 06/2019 - normal Last HPV: 06/2019 - negative Last mammogram: 02/2021 - normal with dense breasts Last colonoscopy: n/a PAST SURGICAL HISTORY Procedure Laterality Date APPENDECTOMY 09/2022 COLPOSCOPY CERVIX UPPER/ADJACENT VAGINA 10/15/2008 Colposcopy HUMEROUS LEFT 2ND OR 11/29/2004 left ORIF periarticular fx of distal humerus.screw fixation LIG/TRNSXJ FLP TUBE ABDL/VAG APPR UNI/BI Tubal ligation PT ED HEART AND VASCULAR 08/2021 TONSILLECTOMY & ADENOIDECTOMY <AGE 12 02/21/2023 TOTAL ABDOM HYSTERECTOMY 09/2022 PAST MEDICAL HISTORY Diagnosis Date Cervical high risk human papillomavirus (HPV) DNA test positive DVT (deep vein thrombosis) in 10/16/1984 Malignant neoplasm of both ovaries (HCC) 02/23/2023 FAMILY HISTORY Problem Relation Age of Onset Thyroid Mother Hypertension Father Heart Father Thyroid Sister Half-sister other (CHF) Sister Thyroid Sister Half-sister Colon Cancer Sister Thyroid Sister Half-sister Hypertension Brother Cancer Maternal Grandmother OVARIAN Hypertension Maternal Grandfather Cancer Maternal Grandfather LUNG Lung Cancer Paternal Grandmother Family history of breast, ovarian, uterine or colon cancer: Yes, maternal grandmother with ovarian cancer Family history of VTE: No SOCIAL HISTORY Social History Tobacco Use Smoking status: Former Packs/day: 0.50 Years: 25.00 Pack years: 12.50 Types: Cigarettes Quit date: 06/23/2022 Years since quittin.7 Smokeless tobacco: Never Tobacco comments: 0 - 1 cigarette per day Vaping Use Vaping Use: Never used Substance Use Topics Alcohol use: No Drug use: No 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 Mcgill to contact the patients preoperatively for discussion of discharge planning. ADVANCED CARE PLANNING: Does patient have an advanced directive or durable power of real estate attorney in place? No Does [facility] have a copy of the patient's advanced directive: No Was advanced directive given to the patient: No REVIEW OF SYSTEMS: GENERAL: No recent weight loss, fever, chills, malaise or fatigue. HEENT: No changes in hearing or vision, frequent or severe headaches, nose bleeds or other nasal problems. NECK: No lumps, goiter, pain, significant neck swelling, or difficulty swallowing. RESPIRATORY: No shortness of breath, cough, wheezing, recent pneumonia (within last 6 weeks) or recent URI (within 2 weeks). CARDIOVASCULAR: No angina with activity or at rest, lower extremity edema, or palpitations. No recent IA (within 6 months), cardiac stent, cardiac surgery, gangrene, or PVD. No history of hypertension. BREAST: No breast lumps, skin changes, nipple discharge, or adenopathy. GI: No abdominal pain, nausea, vomiting, diarrhea, or constipation. No prior history of esophageal varicies or ascites. Patient denies drinking >2 alcoholic beverages a day. : No dysuria, gross hematuria, urinary frequency, urinary urgency, or incontinence. No history of renal failure, dialysis, or recent UTI (<6 weeks). MUSCULOSKELETAL: No muscle weakness or joint pain. SKIN: No skin lesions, rashes, or itching. PSYCH: No sleep disturbances, depression, bipolar disorder, drug dependency/history of drug dependency, or recent psychosocial stressors. HEMATOLOGY/LYMPHOLOGY: No prolonged bleeding, bruising easily, swollen nodes, or anemia. No prior history of a blood clot or clotting disorder. No prior history of a bleeding disorder. Not on chronic anticoagulant/platelet medications. ENDOCRINE: No cold or heat intolerance, polyuria, polydipsia, polyphagia, goiter, hot flashes or night sweats. No prior diagnosis of diabetes or thyroid disorder. No chronic steroid use. NEURO: No history of paralysis, stroke/TIA, seizures, tremors, syncope, or paresthesias. SUBJECTIVE: Evelyn Mccabe reports that she feels well. No abdominal pain, nausea, vomiting, diarrhea, or constipation. No bloating, early satiety, indigestion, or increased flatulence. No dysuria, gross hematuria, urinary frequency, urinary urgency, or incontinence. No shortness of breath, cough, or chest pain. No hot flashes or night sweats. Patient is not sexually active.. No swelling of lower extremities. OBJECTIVE: VITALS: BP 122/63 Pulse 65 Temp 36.5 C (97.7 F) Ht 170.2 cm (5' 7 ) Wt 47.6 kg (105 lb) LMP 03/23/2012 SpO2 100% BMI 16.45 kg/m GENERAL: Patient is a well developed, well nourished female. She is alert, oriented, pleasant, and cooperative. PROCEDURES: scans reviewed ASSESSMENT: Advanced ovarian cancer s/p NACT now with increasing CA125 but no evidence of disease on PET scan. Options discussed in detail, recommend close follow up. PLAN: Ovarian cancer CA125 today Pathology review at [facility] Repeat CT C/A/P in April CARIS testing Will obtain remainder of outside records RTC in April following scans Scribed for Dr. Ellie Romo by Apolonia Hicks, on 03/22/2023 10:47 AM EST. Provider Attestation: I, Ellie Romo Jr, MD, personally performed the services described in this documentation. All medical record entries made by the scribe were at my direction and in my presence. I have reviewed the chart and discharge instructions (if applicable) and agree that the record reflects my personal performance and is accurate and complete. Ellie Romo Jr, MD March 22, 2023 1:45 PM I spent a total of 60 minutes on the date of the service which included preparing to see the patient, [id number] patient care, completing clinical documentation, obtaining and/or reviewing separately obtained history, performing a medically appropriate examination, counseling and educating the patient/family/caregiver, ordering medications, tests, or procedures, communicating with other HCPs (not separately reported), independently interpreting results (not separately reported), communicating results to the patient/family/caregiver, and care coordination (not separately reported). Insurance: Payor: MMO / Plan: MMO [employer] PPO / Product Type: PPO / Medicare consent signed (if applicable): N/A Consultation requested by Dr. Bk Lenz. My final recommendations will be communicated back to the requesting physician by way of shared Medical record or letter to requesting physician via US mail. A letter and a copy of this office note were sent to: - Colin Sofia MD (PCP) documented in this encounter [facility] 03-01-2023 Miscellaneous Notes Unable to reach patient. Message left on service to return call to office for scheduling. documented in this encounter [facility] 02-27-2023 Miscellaneous Notes The patient is active with [employer], LOC 80%, $1500 deductible has $0.00 remaining, $5000 OOP has $272 remaining. An estimate shows patient's financial responsibility is $272 for each treatment in 2022 until the OOP max is reached. The patient stated understanding. Reference #[id number] documented in this encounter [facility] 02-27-2023 Nurse Note Bi Developer Pre Chemo Patient identified by name and date of . YES Confirmed date and time for chemotherapy ? YES Other appointments (labs, imaging) discussed? YES Discussed where to park (stripper opaquer), charge for parking YES Discussed where to report (building/floor) YES Any pre-medications ordered? NO Described the infusion room and what to expect. (What to wear, what to bring [iPad, books] amount of time treatment can take, meals and CC options for food) YES Note: Discussed whether the patient can eat prior to labs and treatment. YES Who is driving you to and from treatment? Son or daughter? Discussed why it is important to bring someone with you. Yes, for the first treatment Resources discussed (music therapy, Art therapy, pet therapy, etc.) NO Education on chemotherapy (drug, side effects) discussed and that the patient will be receiving a C1D1 call within 7 days of treatment. YES Other topics discussed, interventions needed: Chloe Zambrano RN ONCOLOGY PATIENT EDUCATION NOTE TOPIC: Chemotherapy, Medications: Carboplatin/Gemzar/Avastin READINESS TO LEARN: COGNITIVE ABILITY: Alert and oriented MOTIVATION TO LEARN: Interested FAMILY SUPPORT: Unable to assess - Family not present INSTRUCTION PROVIDED TO: Patient INSTRUCTION PROVIDED BY: Nurse Coordinator PATIENT LEARNS BEST BY: Multiple Methods FACTORS AFFECTING LEARNING: None PHYSICAL LIMITATIONS AFFECTING LEARNING: None LEARNING RESPONSE DIAGNOSIS: Ovarian cancer with carcinomatosis METHOD OF INSTRUCTION: Individual instruction Written instruction - handouts Verbal instruction PATIENT/FAMILY RESPONSE: Verbalizes understanding of: CHEMOTHERAPY-Regimen, toxicity and side effects FOLLOW UP PLAN: Patient instructed to call with any further issues Recommend - Recommend continued instruction and follow up as directed Follow up phone call. Contact information given. SUPPLEMENTAL MATERIAL: Written material was provided at this visit with the following information: - Chemotherapy education was provided by a pharmacist NO - Side effect management information was provided/discussed including but not limited to: abdominal discomfort, anemia, appetite changes, bowel habit changes, diet, fatigue, hair loss, infection, mouth hygiene, nausea/vomitting, peripheral neuropathy, rash, taste changes, thrombocytopenia YES - Provided important phone numbers and contacts during and after hours. YES - Provided information on symptoms that require immediate assistance. YES - Provided Chemotherapy when to call handouts YES - Preventing infection. YES - Treatment schedule and confirmation of appointment times. YES - Available support groups. YES, sheet provided in my journey binder. - The importance of contraception during the course of chemotherapy YES - Neutropenic fever protocol discussed with patient, which included the importance of reporting any fever of 100.4F (38.0C) or greater to the healthcare team as noted on the provided wallet card and/or magnet. YES Time Spent: 45 minutes REFERRAL (RECOMMENDATION): N/A Chloe Zambrano RN This visit was completed via telephone. Chloe Zambrano RN documented in this encounter [facility] 02-24-2023 Miscellaneous Notes Patient notified. Deanna Ag LPN Good news. Both tonsils were negative for cancer. Bk Lenz DO documented in this encounter [facility] 02-23-2023 Miscellaneous Notes Chemotherapy teaching.- SCHEDULED Begin chemotherapy when able. CBC/CMP/Mg/CA125/straight back day 1. CBC day 8. OV/CBC/CMP/Mg/CA125 for cycle #2. Me or Familia. First 3 cycles scheduled. Lilliana Choi documented in this encounter [facility] 02-23-2023 History of Presen t illness Narrative Oncologic problem(s): 1) Ovarian cancer with carcinomatosis. HPI: The patient is a 57-year-old female with a past medical history significant for smoking (quit 06/2022), CAD (08/2021 following mildly symptomatic Covid, developed chest pain first day back to work--IA; PCI x1 stent--ASA and Brilinta (stopped Brilinta after a week due to nausea and diarrhea--took Plavix for a year), remote DVT (first in 1984) and ovarian cancer. Developed change in bowel habits spring 2021. Then developed abdominal pain summer 2021. Admitted [facility] via ED 06/20/2022. Per admitting hospitalist then onset 04/2022 ongoing persistent dull aching with occasional sharp stabbing periumbical abdominal pain, rated 2-5/10 in severity with nausea without emesis and night sweats with no diarrhea and normal once daily in AM bowel movements with PCP evaluation with outpatient US which was reportedly normal with ED evaluation 06/13/[address] A/P w/ reported gastritis and ascites and normal labs with discharge to home with follow-up PCP directed 06/17/22 MRI with moderate volume ascites with two thin walled well defined fluid collections without enhancement (1.2 x 0.8, 3.6 x 2.7 cm) in the LLQ with referral made to GI Dr. Rajput who now re-presents to the [facility] ED on 06/20/22 history of ongoing constant abdominal pain in the similar region but worsened, rated pain for the last 1-2 weeks 8-10/10 in severity with ~9 lb weight loss with decreased oral intake and ongoing night sweats. US 06/22/2022 at [facility]: MPRESSION: 1. Normal-size anteverted uterus with a hyperechoic 3 mm thick endometrium. 2. No evidence of uterine cyst or solid mass lesions. 3. Normal cervix. 4. Mildly lobulated right ovary measuring 3.5 cm to 2.7 x 2.4 cm without distinct cystic or solid lesions. 5. Left ovary is not visualized. 6. Large amount of fluid or ascites in the cul-de-sac. 7. No evidence of adnexal masses or peritoneal implants. Referred to Dr. Hyatt. Underwent laparoscopy with findings of diffuse carcinomatosis and biopsy at [facility] 06/28/2022. Pathology: PERITONEUM, BIOPSIES - HIGH-GRADE ADENOCARCINOMA. SEE COMMENT. 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 These malignant cells stain positive with CK7, PAX 8, patchy positivity with calretinin and weak focal ER positivity, and negative for CK20, GATA3 and WT1. A p53 demonstrates a null phenotype. 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 SNVs/Indels - TP53 splice site c.782+1G>A Immuno-Oncology Biomarkers - PD-L1 LDT: Not Detected Interpretation: -TP53 (tumor protein P53) encodes a tumor suppressor protein that responds to cellular stresses, including gDNA damage and oncogenic activation, by inducing and modulating downstream anti-tumor responses such as DNA repair, recombination, and apoptosis. Currently, there are no approved therapies that directly target oncogenic alterations in TP53. However, experimental therapies that target and re-activate the transcriptional activity of mutant TP53 have been described and are currently under investigation. Early clinical trials data suggest oncogenic TP53 mutations may predict resistance to cisplatin chemotherapy, MDM2 inhibitors, and CDK4/CDK6 inhibitors. - No pathogenic mutations are present in any of the common homologous recombination repair genes on this panel. Variants of unknown clinical significance are detected in the following genes: ATR and BARD1 (Please see the Variants of Unknown Clinical Significance section, below). As the functional consequences of these variants are undetermined, the clinical utility of PARP inhibitor therapy in this case is uncertain Started on neoadjuvant chemotherapy with carboplatin and paclitaxel. She received 4 cycles prior to undergoing interval debulking surgery on 09/28/2022. Notes indicate had complete gross tumor debulking. Pathology: A. Soft tissue, anterior peritoneum, excision: - Fibroadipose tissue with focal dense fibrosis and rare infiltrating high-grade carcinoma. B. Omentum, excision: - Residual invasive high-grade adenocarcinoma and therapy-related changes present. Comment: The majority of tumor in all the specimens (A - E) has the appearance of high-grade serous carcinoma. Focal areas of tumor in parts B and D show clear cells features. However, by immunohistochemistry, these cells are negative for napsin-A, making clear cell carcinoma less likely. WT-1 is also negative. C. Uterus, cervix, bilateral fallopian tubes and ovaries, hysterectomy with bilateral salpingo-oophorectomy: - Residual high-grade carcinoma involving bilateral ovaries and fallopian tubes. - Uterus with inactive endometrium, and unremarkable myometrium and cervix. D. Small bowel nodule, excision: - High-grade carcinoma and therapy-related changes including fibrinous necrosis. E. Appendix, appendectomy: - Rare infiltrating carcinoma involving the mesoappendix. - Unremarkable tubular appendix. Completed 2 additional cycles carbo/paclitaxel November 2021. He is here today to discuss maintenance therapy. Patient's CA125 level is 28.2 U/mL.Ran at [facility]. Per Dr. Naranjo's note: Plan: Counseled the patient and her daughter today as far as treatment options. This would include going on a PARP inhibitor, Avastin or observation only. We discussed the fact that she is HRD and BRCA negative. We discussed that there was still an advantage to going on a PARP inhibitor. I did career technical counselor the patient as to the most common side effects of PARP inhibitors. We also discussed some of the more common signs and symptoms of recurrent cancer. The patient would like to start Zejula, will start at the medium dose, will watch CBC weekly for 1 month and then monthly thereafter. Discussed staying on the Zejula until evidence of disease progression or toxicity. ----- Started Zejula 12/20/2022 but developed diarrhea, fatigue, chest pain with palpitations that woke her by 12/22/2022. Saw cardiology 12/23 and was told EKG okay and could retry Zejula. Started on 12/26. 12/28 had blurry vision and couldn't see to drive. Decreased dose to 200 mg daily. 12/30 got palpitations again. Stopped altogether 01/02/2023. Went to [facility] in [place] where evidently CT scan 01/16/23 showed lesions in left lung, liver, and pelvis; it was not known whether these were new as she had no previous scans to compare. PET scan recommended. PET 02/06/2023: IMPRESSION: 1. NECK: * Asymmetric hypermetabolism along the right palatine tonsil, indeterminate. Recommend correlation with direct inspection. * Otherwise no FDG avid neoplastic process. 2. CHEST: * No FDG avid neoplastic process. * 9 mm left upper lobe groundglass/semisolid nodule is not FDG avid and likely represents a primary lung neoplasm along the adenocarcinoma spectrum. 3. ABDOMEN/PELVIS: * No FDG avid neoplastic process. 4. EXTREMITIES/SKELETON: * No suspicious FDG avid osseous lesion. RESULT: Pack Changer (topogram) images: No additional findings. - Mediastinum blood pool activity: Max SUV: 1.8 - Background liver activity: Max SUV: 2.4 HEAD AND NECK: Focal hypermetabolism along the right palatine tonsil (Max SUV 7.6) with associated soft tissue fullness. Physiologic uptake seen in the visualized brain, extraocular muscles, parapharyngeal soft tissues, base of tongue, vocal cords, and salivary glands. No FDG avid cervical lymphadenopathy or mass. No FDG avid thyroid lesion. CHEST: Right chest port terminates in the right atrium. Physiologic uptake in the heart and mediastinum. Lungs and tracheobronchial tree: -0.9 cm left apicoposterior groundglass/semisolid nodule without associated hypermetabolism (Max SUV 0.6). -Additional scattered smaller pulmonary nodules, for example a 4 mm nodule within the posterior right upper lobe, below the resolution of PET. -No hypermetabolic pulmonary lesions. -Emphysema. Note that PET/CT is not sensitive for pulmonary nodules less than 8 mm. Pleura: No FDG avid pleural effusion or pleural mass. Mediastinum and Lymph nodes: 0.9 cm right prevascular node with low level hypermetabolism (Max SUV 2.6), likely reactive. Heart and great vessels: Physiologic uptake in the heart. Chest wall and axilla: No FDG avid axillary lymphadenopathy. ABDOMEN AND PELVIS: Physiologic uptake seen in the and GI tracts. Liver: No FDG avid lesion. Low-attenuation lesion centered between the posterior aspect of the left hepatic lobe and the body of the pancreas, without associated hypermetabolism. Biliary: Gallbladder is unremarkable. Spleen: No FDG avid lesion. No splenomegaly. Pancreas: No FDG avid lesion. Adrenals: No FDG avid lesion. Kidneys: No stones, hydronephrosis, or FDG avid lesions. GI tract: No dilation or focal suspicious FDG avid lesion. Lymph nodes: No FDG avid abdominal or pelvic lymphadenopathy. Left external iliac/obturator node measures 0.7 cm and has expected low level hypermetabolism (Max SUV 1.8). Mesentery/Peritoneum: No ascites or FDG avid mass. Vasculature: Vascular patency cannot be assessed due to lack of IV contrast. Atherosclerotic calcifications of the abdominal aorta and iliac vessels without aneurysm. Pelvis: Hysterectomy. No ascites, focal fluid collection, or hypermetabolic lesion. Abdominopelvic wall: Postsurgical changes along the ventral pelvic wall with expected low level hypermetabolism. BONES AND EXTREMITIES: No suspicious FDG avid osseous lesion. The imaged portions of the skeleton demonstrates age-related degenerative changes. No destructive osseous lesions. Previous therapy: 1) Carboplatin and paclitaxel x4 cycles. 2) Interval debulking surgery 09/28/2022 3) Carboplatin and paclitaxel x2 cycles. Completed 11/2022. 4) Zejula. Did not tolerate due to side effects (see above). Post op had abdominal pain (incisional pain?) and saw palliative care and was prescribed gabapentin which helped significantly. Now has mild ghost pain on occasion and continues gabapentin to help her sleep--Tried stopping and significant flare of anxiety. Has had buproprion, Vistaril and Effexor from PCP in the past. Recently had 0.5 mg lorazepam for PET and it made her very sedate. Quit smoking at time of ovarian cancer diagnosis. Has episodic dyspnea---can happen at rest or with exertion but never consistently. However she notices a gradual worsening of BORJAS. No further palpitations. No exertional chest pain/pressure. Has sensory neuropathy manifested as a tingling in fingertips and toes. Presents for ongoing oncologic management. Interim history: Underwent b/l tonsillectomy. No malignancy. Didn't try Cymbalta yet. Successfully weaning gabapentin. Saw Dr. Scruggs, shovel oiler at [facility]: The preferred approach would be transthoracic needle aspiration under CT scan guidance. Since she has no blebs within 3 cm of the lesion, I believe her risk of procedure would be between 5 and 15% chance of pneumothorax. If the lesion is a lung primary, there is no outcome difference between the biopsy now and waiting 3 months to watch behavior, biopsying it if it enlarges in 3 months. If it is an ovarian metastasis, the best approach would be to biopsy the PET positive tonsillar enlargement, treat that, and observe the behavior of the lung lesion. If it is an ovarian metastasis and responds to treatment, and recedes on her next CAT scan, we will have avoided a biopsy. -I therefore recommend that her tonsil lesion be biopsied by ENT (first visit with Dr. Gregory tomorrow), and take a watchful waiting approach regarding the left upper lobe lesion for now, to readdress it in 3 months. Both of these options were discussed with the patient, she was given the option to biopsy now, and we agreed that it may be more prudent and would not change the outcome of a small lung lesion to wait for 3 months on the lung lesion biopsy. -Meanwhile we will evaluate her COPD, she has excellent functional status, and we will add bronchodilators if necessary. Throat sore. No bleeding or hoarseness. PMH, medications and allergies personally reviewed by me today. Any changes documented in appropriate section. Social History Tobacco Use Smoking status: Former Packs/day: 0.50 Years: 25.00 Pack years: 12.50 Types: Cigarettes Quit date: 06/23/2022 Years since quittin.6 Smokeless tobacco: Never Tobacco comments: 0 - 1 cigarette per day Vaping Use Vaping Use: Never used Substance Use Topics Alcohol use: No Drug use: No Family History Problem Relation Age of Onset Thyroid Mother Hypertension Father Heart Father Thyroid Sister Half-sister other (CHF) Sister Thyroid Sister Half-sister Colon Cancer Sister Thyroid Sister Half-sister Hypertension Brother Cancer Maternal Grandmother OVARIAN Hypertension Maternal Grandfather Cancer Maternal Grandfather LUNG Lung Cancer Paternal Grandmother ROS: Constitutional: Denies episodes of fever and night sweats. Neuro: Denies vertigo, dizziness and imbalance. HEENT: No recent change in voice, vision or hearing. Resp: See HPI. CVS: See HPI. GI: Denies dysphagia and odynophagia. Denies reflux, n/v, change in bowel habits and abdominal pain. : Denies dysuria or gross hematuria. Endo: Denies hot flashes. Denies polyuria and polydipsia. Denies heat and cold intolerance. Musculoskeletal: No bone, back, joint and muscular pain. Derm: Denies rash. Denies jaundice and diffuse pruritis. Heme: Denies unusual bleeding and unexplained bruising. Psych: Anxiety. PHYSICAL EXAM: Vitals: Blood pressure 106/61, pulse 69, temperature 36.8 C (98.2 F), weight 51 kg (112 lb 8 oz), last menstrual period 03/23/2012, SpO2 97 %. Well-appearing and in no acute distress. EYES: Sclerae are anicteric bilaterally. LYMPHATIC: There is no palpable cervical or supraclavicular adenopathy. RESPIRATORY: Inspiratory vesicular breath sounds are of diminished intensity in all cruz. CARDIOVASCULAR: Rhythm is regular. ABDOMEN: The abdomen is nondistended. No organomegaly. Mild generalized tenderness. Extremities: No swelling or edema. SKIN: No jaundice. 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 No focal motor weakness. LABORATORY DATA: Component Latest Ref Rng & Units 02/09/2023 WBC 3.70 - 11.00 k/uL 8.42 RBC 3.90 - 5.20 m/uL 4.84 Hemoglobin 11.5 - 15.5 g/dL 13.8 Hematocrit 36.0 - 46.0 % 41.8 MCV 80.0 - 100.0 fL 86.4 MCH 26.0 - 34.0 pg 28.5 MCHC 30.5 - 36.0 g/dL 33.0 RDW-CV 11.5 - 15.0 % 15.0 Platelet Count 150 - 400 k/uL 295 MPV 9.0 - 12.7 fL 9.3 Neut% % 61.7 Abs Neut (ANC) 1.45 - 7.50 k/uL 5.19 Lymph% % 29.0 Abs Lymph 1.00 - 4.00 k/uL 2.44 Clay% % 5.2 Abs Clay <0.87 k/uL 0.44 Eosin% % 3.2 Abs Eosin <0.46 k/uL 0.27 Baso% % 0.7 Abs Baso <0.11 k/uL 0.06 Immature Gran % % 0.2 IMMATURE GRANS (ABS) <0.10 k/uL <0.03 NRBC /100 WBC 0.0 Absolute nRBC <0.01 k/uL <0.01 DTYPE Auto Protein, Total 6.3 - 8.0 g/dL 7.9 Albumin 3.9 - 4.9 g/dL 4.9 Calcium 8.5 - 10.2 mg/dL 9.7 Bilirubin, Total 0.2 - 1.3 mg/dL 0.4 Alkaline Phosphatase 34 - 123 U/L 90 AST 13 - 35 U/L 19 ALT 7 - 38 U/L 18 Glucose 74 - 99 mg/dL 105 (H) BUN 7 - 21 mg/dL 14 Creatinine 0.58 - 0.96 mg/dL 0.82 Sodium 136 - 144 mmol/L 138 Potassium 3.7 - 5.1 mmol/L 4.0 Chloride 97 - 105 mmol/L 99 CO2 22 - 30 mmol/L 27 Anion Gap 9 - 18 mmol/L 12 eGFR >=60 mL/min/1.73m 84 CA 125 <39 U/mL 56 (H) PFTs at [facility] 02/17/2023: Forced expiration spirometry demonstrates the presence of a mild large airways obstructive ventilatory defect. There was no significant response to aerosolized bronchodilators. Spirograms are of fair quality and plateau normally. Body plethysmography was performed and revealed lung volumes to be within normal limits. Diffusing capacity by single breath CO was likewise within normal limits. IMPRESSION: Irreversible mild large airways obstructive ventilatory impairment with preserved lung volumes and diffusing capacity. ASSESSMENT/PLAN: (C56.3) Malignant neoplasm of both ovaries (HCC) (primary encounter diagnosis) (C78.6) Peritoneal carcinomatosis (HCC) Assessment: -KPS is 90-100% -No HRD including BRCA gene mutation. -Genetic testing performed through [employer]: Negative for BRCA1/2 and 24 other relevant genes. -Most recent CA125 was obtained at [facility]. 29.7 U/mL. -PET scan negative for ovarian cancer, but not optimal to evaluate carcinomatosis. -Intolerant to Zejula as maintenance. -CA125 noted to increase--resulted after first visit. -Reviwed this with her and her daughter today. Disease is very likely still [place] sensitive and I recommended beginning treatment with carboplatin, gemcitabine and bevacizumab. The goal of care is prolongation of survival and palliation. Discussed Avastin could be used for maintenance. -I discussed the rationale, logistics, potential risks (including but not limited to exacerbation of neuropathy, nausea and vomiting, cytopenias, pulmonary toxicity as well as infectious complications, proteinuria, hypertension, increased risk of stroke and heart attack as well as bleeding problems and the small potential for as a consequence of severe toxicity/complications of therapy), benefits and alternatives, as well as the personnel involved in the administration of gemcitabine, carboplatin and bevacizumab. I answered her questions in detail and she verbalized understanding and agreed with the recommended therapy. Please see the electronic consent document for details of doses and schedule. Plan: -Chemotherapy teaching. -Begin chemotherapy when able. -CBC/CMP/Mg/CA125/straight back day 1. -CBC day 8. -OV/CBC/CMP/Mg/CA125 for cycle #2. -Screening for proteinuria with urine dipstick each cycle. (I25.10) Coronary artery disease involving [place] coronary artery of [place] heart without angina pectoris (Z95.5) History of coronary artery stent placement Assessment: -Had PCI for IA with one stent placed 08/2021. Post Covid. -Completed dual antiplatelet therapy with ASA and clopidogrel (was intolerant to Brilinta) x1 year. -Now on aspirin alone. Plan: -Follow-up with cardiology. COPD Assessment: -Former smoker. -COPD. -PFT results noted. Plan: -Follow up with Dr. Scruggs. (R91.1) Incidental lung nodule, greater than or equal to 8mm Assessment: -Incidental finding of 9 mm groundglass/semisolid left upper lobe nodule on recent PET scan. Personally reviewed images with her and her son. -In retrospect, was present but smaller on CTA done [facility] 07/28/2022. -Appreciate Dr. Scruggs's recommendations. Plan: -Monitor with follow up CT. (J35.9) Disorder of lingual tonsil Assessment: -Status post bilateral tonsillectomy. -No evidence of malignancy. Plan: -Follow up with ENT. 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 Plan: -Trial of Cymbalta per below problem. (F41.1, C80.1) Anxiety associated with cancer diagnosis (HCC) Assessment: -She has remained on gabapentin 300 mg at at bedtime. Drug was originally prescribed to help with incisional pain following interval debulking surgery. She remains on because when she tried to stop it in the past she got significant flares of anxiety. -Lower dose Ativan caused sedation. -She is successfully tapering off gabapentin. -Really encouraged her to try Cymbalta to help with both depressive and anxiety symptoms. -Also discussed a trial of lower dose Ativan. She agreed. Plan: -Begin Cymbalta 30 mg daily. -Continue gabapentin taper--take 2 at at bedtime for 2 weeks then 1 at at bedtime for 2 weeks then stop. -Rx Ativan 0.25 mg 3 times daily as needed. (O22.30) DVT (deep vein thrombosis) in Assessment: -She had a remote provoked DVT during first in 1984. -Nonetheless she is at increased risk of recurrent VTE given underlying cancer diagnosis. -No clear indication for prophylactic anticoagulation. Discussed monitoring for symptoms. Plan: -Monitor. Portions of this documentation were copied and pasted from previous office visit notes in order to provide a cohesive continuity of the history. The note has been reviewed and edited and updated as necessary. I spent a total of 50 minutes on the date of the service which included preparing to see the patient, [id number] patient care, completing clinical documentation, obtaining and/or reviewing separately obtained history, performing a medically appropriate examination, counseling and educating the patient/family/caregiver, ordering medications, tests, or procedures, and communicating results to the patient/family/caregiver. Bk Lenz DO documented in this encounter [facility] 02-22-2023 Telephone encounter Note Evelyn called to say she is going to move her care closer to home. She said the staff has been wonderful to her. Her decision is based on location. I gave her the number to get her medical records switched. [facility] 02-22-2023 Miscellaneous Notes Evelyn called to say she is going to move her care closer to home. She said the staff has been wonderful to her. Her decision is based on location. I gave her the number to get her medical records switched. documented in this encounter [facility] 02-20-2023 Miscellaneous Notes Patient will do her best to keep appointment on 02/23/2023. Deanna Ag LPN I would encourage her to keep the appointment on 5/11 if possible. Bk Lenz DO Patient called stating she was referred to ENT by Dr. Lenz to have tonsils removed. She is having surgery tomorrow. She has a current appt with Dr. Lenz on 02/23 and states she may not feel up to coming to appointment. Please advise how far out to reschedule and reschedule with patient. documented in this encounter [facility] 02-13-2023 Miscellaneous Notes I spoke with patient and answered all questions. Deanna Ag LPN Message relayed to patient. She requested to speak to triage. Transferred to triage. Message left for patient to contact the office for message below. A copy of this note was faxed to Dr. Parker's office for appointment on 02/16/2023. Deanna Ag LPN Please let her know biopsy not recommended at this point due to potential low yield and risk of causing pneumothorax. Keep upcoming appointment with pulmonary medicine. Please fax a copy of this note to them. Bk Lenz DO .. RADIOLOGIST REQUEST / DENIAL FORM STAFF RADIOLOGIST: Edwin/Laureano PROCEDURE: Not Approved (reason) Do not schedule -- See Notes NOTES: History of ovarian CA Non-solid/part-solid 6-7 mm LIZZETTE nodule -- low diagnostic yield secondary to small size and tiny central nidus Nodule does likely represent a small adenocarcinoma, metastasis less likely -- Follow-up CT in approximately six months is suggested Increased risk of PTX secondary to moderate paraseptal emphysema STAFF SIGNATURE: Alesia Pineda MD DATE: February 13, 2023 TIME: 12:24 PM BX. COORDINATOR INFORMATION LAB RESULTS: PT INR (no units) Date Value 02/25/2014 1.0 APTT (sec) Date Value 02/25/2014 29.3 Platelet Count (k/uL) Date Value 02/09/2023 295 01/03/2020 363 Current Outpatient Medications Medication Sig OTC NUTRITIONAL SUPPLEMENT Take 1 capsule by mouth once daily. Ashwagandha Root by [employer] OTC NUTRITIONAL SUPPLEMENT Take 1 capsule by mouth once daily. Ferrasorb by [employer] magnesium oxide 200 mg magnesium tab Take 2 tablets by mouth once daily. gabapentin (NEURONTIN) 100 mg capsule Take 2 capsules by mouth daily at bedtime for 90 days. DULoxetine (CYMBALTA) 30 mg capsule Take 1 capsule by mouth once daily. senna (SENOKOT) 8.6 mg tab Take 1 tablet by mouth twice daily. ezetimibe (ZETIA) 10 mg tablet Take 10 mg by mouth once daily. Cholecalciferol, Vitamin D3, 50 mcg (2,000 unit) cap Take 5,000 Units by mouth once daily. aspirin, enteric coated (ASPIRIN, ENTERIC COATED) 81 mg EC tablet Take 81 mg by mouth once daily. nicotine (NICODERM) 7 mg/24 hr Apply 1 Patch as directed every 24 hours. (Patient taking differently: Apply 1 Patch as directed as needed.) No current facility-administered medications for this visit. ALLERGIES Allergen Reactions Bactrim [Sulfametho* Hives Dilaudid [Hydromorp* Hives Lipitor [Atorvastat* Diarrhea UTI, poor appetite, diarrhea Metoprolol Diarrhea fatigue, diarrhea FILMS SENT TO WORKSTATION: GUIDELINES FOR HOLDING ANTI-PLATELET AND ANTI- COAGULATION THERAPY: none on file NURSE SIGNATURE: Cynthia Avalos LPN DATE: February 13, 2023 TIME: 10:24 AM RADIOLOGY CALL CENTER INTAKE LAB TECH: N/A EXT: N/A DATE: 02/13/2023 TIME: 819 TRACKING #. N/A REQUESTING PERSON: Deanna Ag LPN PHONE/PAGER: [phone] REQUESTING STAFF: Bk Lenz DO PHONE/PAGER: [phone] SPECIFICS OF THE REQUEST: (Please be as detailed as possible. If request is lymph node biopsy, specify LOCATION of the node if possible): biopsy LIZZETTE lesion (For example: biopsy liver mass or biopsy pelvic lymph node ) SPECIAL REQUESTS: TISSUE SAMPLE, LABWORK: Routine Evaluation -Fine needle aspiration (FNA), core biopsy, no preference, unsure, specific processing request for pathology (For example: send for ER, UT, HER2/marty or possible lymphoma send in RPMI solution ) IS THIS REQUEST PART OF A RESEARCH PROTOCOL: No IF YES: List specifics of request and name/contact number of research coordinator and primary physician. MEDICAL DIAGNOSIS: history of ovarian cancer (For example: history of breast cancer with liver mass or history of lymphoma ) TYPE AND DATE OF THE EXAM THAT IS THE BASIS OF THE REQUEST: PET scan 02/03/2023. Also CTA from [facility] 07/28/2022. (Note: Requests for random organ biopsies, specifically liver and kidney random biopsies do not need imaging. ALL OTHER CASES NEED IMAGING TO EVALUATE APPROPRIATENESS/FEASIBILITY OF THE REQUEST) IMAGING: [facility] and [facility]. Images requested STAT from [facility] CTA 07/28/2022. (If the imaging was obtained outside the [facility] system, then it needs to be submitted for review prior to approval.) Note to all persons requesting biopsies: All biopsy requests will be scheduled as quickly as possible, based on the clinical urgency, availability of appointment times, the need to hold anti-thrombolytic therapy (aspirin, blood thinners) and the patient s schedule, including the need for an available boat driver. If a percutaneous biopsy or drainage is not felt to be safe or an alternative method for establishing a diagnosis is possible, this will be discussed directly with the requesting physician. documented in this encounter [facility] 02-13-2023 Miscellaneous Notes Biopsy request denied- PROCEDURE: Not Approved (reason) Do not schedule -- See Notes NOTES: History of ovarian CA Non-solid/part-solid 6-7 mm LIZZETTE nodule -- low diagnostic yield secondary to small size and tiny central nidus Nodule does likely represent a small adenocarcinoma, metastasis less likely -- Follow-up CT in approximately six months is suggested Increased risk of PTX secondary to moderate paraseptal emphysema Deanna Ag LPN Referrals faxed for both appointments listed in AVS. VIRGILIO with Nithya from IR Scheduling to contact patient to schedule STAT Image guided lung biopsy. Leave this note open until patient is scheduled for biopsy. Lilliana Choi Patient notified to keep pulmonary appointment. PSS- please schedule as directed below. Deanna Ag LPN Yes, needs CT pulmonary consultation. Bk Lenz DO CTA images from [facility] requested STAT. I will triage biopsy to [facility] in separate phone note. PSS- please schedule patient with Dr. Lenz as directed, establish complex office visit 02/23 at 10:10 am. Use the hour please. No need to notify patient, she is aware of date and time. Dr. Lenz- patient is scheduled with [facility] pulmonary on 02/16/2023. Patient is asking if she should still keep this appointment anyway? Deanna Ag LPN Office note completed. Her lab work showed that her CA125 is increasing so I submitted order for potential CT-guided biopsy of the lung nodule at [facility]. At the time of the office visit I was going to ask for pulmonary medicine's help in deciding on timing of biopsy but since she will need to restart treatment for her ovarian cancer soon, I would like to proceed with the radiologist's evaluation for biopsy. If he or she thinks biopsy is feasible, patient may be contacted directly to schedule this at main campus. Please import CTA images 07/28/2022 from [facility]. Needs establish complex office visit with me 02/23 at 10:10 am. Use the hour please. Bk Lenz DO Labs today. Referral to Dr. Arvizu- will need CD of recent PET scan to take with her today. - SCHEDULED 02/17/23 @ 1:45 PM W/ DR MARQUEZ - REFERRAL STILL NEEDS FAXED Referral to pulmonary medicine, [facility] or [facility]. - SCHEDULED 02/16/23 @ 10:00 AM - REFERRAL STILL NEEDS FAXED Follow up depending on results from referrals. documented in this encounter [facility] 02-09-2023 History of Presen t illness Narrative Patient referred by Dr. Sofia for ovarian cancer. The impression and plan will be communicated by way of the shared electronic record or faxed under separate cover letter. HPI: The patient is a 57-year-old female with a past medical history significant for smoking (quit 06/2022), CAD (08/2021 following mildly symptomatic Covid, developed chest pain first day back to work--IA; PCI x1 stent--ASA and Brilinta (stopped Brilinta after a week due to nausea and diarrhea--took Plavix for a year) and ovarian cancer. Developed change in bowel habits spring 2021. Then developed abdominal pain summer 2021. Admitted [facility] via ED 06/20/2022. Per admitting hospitalist then onset 04/2022 ongoing persistent dull aching with occasional sharp stabbing periumbical abdominal pain, rated 2-5/10 in severity with nausea without emesis and night sweats with no diarrhea and normal once daily in AM bowel movements with PCP evaluation with outpatient US which was reportedly normal with ED evaluation 06/13/[address] A/P w/ reported gastritis and ascites and normal labs with discharge to home with follow-up PCP directed 06/17/22 MRI with moderate volume ascites with two thin walled well defined fluid collections without enhancement (1.2 x 0.8, 3.6 x 2.7 cm) in the LLQ with referral made to GI Dr. Rajput who now re-presents to the [facility] ED on 06/20/22 history of ongoing constant abdominal pain in the similar region but worsened, rated pain for the last 1-2 weeks 8-/10 in severity with ~9 lb weight loss with decreased oral intake and ongoing night sweats. US 06/22/2022 at [facility]: MPRESSION: 1. Normal-size anteverted uterus with a hyperechoic 3 mm thick endometrium. 2. No evidence of uterine cyst or solid mass lesions. 3. Normal cervix. 4. Mildly lobulated right ovary measuring 3.5 cm to 2.7 x 2.4 cm without distinct cystic or solid lesions. 5. Left ovary is not visualized. 6. Large amount of fluid or ascites in the cul-de-sac. 7. No evidence of adnexal masses or peritoneal implants. Referred to Dr. Hyatt. Underwent laparoscopy with findings of diffuse carcinomatosis and biopsy at [facility] 06/28/2022. Pathology: PERITONEUM, BIOPSIES - HIGH-GRADE ADENOCARCINOMA. SEE COMMENT. 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 These malignant cells stain positive with CK7, PAX 8, patchy positivity with calretinin and weak focal ER positivity, and negative for CK20, GATA3 and WT1. A p53 demonstrates a null phenotype. 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 SNVs/Indels - TP53 splice site c.782+1G>A Immuno-Oncology Biomarkers - PD-L1 LDT: Not Detected Interpretation: -TP53 (tumor protein P53) encodes a tumor suppressor protein that responds to cellular stresses, including gDNA damage and oncogenic activation, by inducing and modulating downstream anti-tumor responses such as DNA repair, recombination, and apoptosis. Currently, there are no approved therapies that directly target oncogenic alterations in TP53. However, experimental therapies that target and re-activate the transcriptional activity of mutant TP53 have been described and are currently under investigation. Early clinical trials data suggest oncogenic TP53 mutations may predict resistance to cisplatin chemotherapy, MDM2 inhibitors, and CDK4/CDK6 inhibitors. - No pathogenic mutations are present in any of the common homologous recombination repair genes on this panel. Variants of unknown clinical significance are detected in the following genes: ATR and BARD1 (Please see the Variants of Unknown Clinical Significance section, below). As the functional consequences of these variants are undetermined, the clinical utility of PARP inhibitor therapy in this case is uncertain Started on neoadjuvant chemotherapy with carboplatin and paclitaxel. She received 4 cycles prior to undergoing interval debulking surgery on 09/28/2022. Notes indicate had complete gross tumor debulking. Pathology: A. Soft tissue, anterior peritoneum, excision: - Fibroadipose tissue with focal dense fibrosis and rare infiltrating high-grade carcinoma. B. Omentum, excision: - Residual invasive high-grade adenocarcinoma and therapy-related changes present. Comment: The majority of tumor in all the specimens (A - E) has the appearance of high-grade serous carcinoma. Focal areas of tumor in parts B and D show clear cells features. However, by immunohistochemistry, these cells are negative for napsin-A, making clear cell carcinoma less likely. WT-1 is also negative. C. Uterus, cervix, bilateral fallopian tubes and ovaries, hysterectomy with bilateral salpingo-oophorectomy: - Residual high-grade carcinoma involving bilateral ovaries and fallopian tubes. - Uterus with inactive endometrium, and unremarkable myometrium and cervix. D. Small bowel nodule, excision: - High-grade carcinoma and therapy-related changes including fibrinous necrosis. E. Appendix, appendectomy: - Rare infiltrating carcinoma involving the mesoappendix. - Unremarkable tubular appendix. Completed 2 additional cycles carbo/paclitaxel November 2021. He is here today to discuss maintenance therapy. Patient's CA125 level is 28.2 U/mL.Ran at [facility]. Per Dr. Naranjo's note: Plan: Counseled the patient and her daughter today as far as treatment options. This would include going on a PARP inhibitor, Avastin or observation only. We discussed the fact that she is HRD and BRCA negative. We discussed that there was still an advantage to going on a PARP inhibitor. I did career technical counselor the patient as to the most common side effects of PARP inhibitors. We also discussed some of the more common signs and symptoms of recurrent cancer. The patient would like to start Zejula, will start at the medium dose, will watch CBC weekly for 1 month and then monthly thereafter. Discussed staying on the Zejula until evidence of disease progression or toxicity. ----- Started Zejula 12/20/2022 but developed diarrhea, fatigue, chest pain with palpitations that woke her by 12/22/2022. Saw cardiology 12/23 and was told EKG okay and could retry Zejula. Started on 12/26. 12/28 had blurry vision and couldn't see to drive. Decreased dose to 200 mg daily. 12/30 got palpitations again. Stopped altogether 01/02/2023. Went to [facility] in [place] where evidently CT scan 01/16/23 showed lesions in left lung, liver, and pelvis; it was not known whether these were new as she had no previous scans to compare. PET scan recommended. PET 02/06/2023: IMPRESSION: 1. NECK: * Asymmetric hypermetabolism along the right palatine tonsil, indeterminate. Recommend correlation with direct inspection. * Otherwise no FDG avid neoplastic process. 2. CHEST: * No FDG avid neoplastic process. * 9 mm left upper lobe groundglass/semisolid nodule is not FDG avid and likely represents a primary lung neoplasm along the adenocarcinoma spectrum. 3. ABDOMEN/PELVIS: * No FDG avid neoplastic process. 4. EXTREMITIES/SKELETON: * No suspicious FDG avid osseous lesion. RESULT: Pack Changer (topogram) images: No additional findings. - Mediastinum blood pool activity: Max SUV: 1.8 - Background liver activity: Max SUV: 2.4 HEAD AND NECK: Focal hypermetabolism along the right palatine tonsil (Max SUV 7.6) with associated soft tissue fullness. Physiologic uptake seen in the visualized brain, extraocular muscles, parapharyngeal soft tissues, base of tongue, vocal cords, and salivary glands. No FDG avid cervical lymphadenopathy or mass. No FDG avid thyroid lesion. CHEST: Right chest port terminates in the right atrium. Physiologic uptake in the heart and mediastinum. Lungs and tracheobronchial tree: -0.9 cm left apicoposterior groundglass/semisolid nodule without associated hypermetabolism (Max SUV 0.6). -Additional scattered smaller pulmonary nodules, for example a 4 mm nodule within the posterior right upper lobe, below the resolution of PET. -No hypermetabolic pulmonary lesions. -Emphysema. Note that PET/CT is not sensitive for pulmonary nodules less than 8 mm. Pleura: No FDG avid pleural effusion or pleural mass. Mediastinum and Lymph nodes: 0.9 cm right prevascular node with low level hypermetabolism (Max SUV 2.6), likely reactive. Heart and great vessels: Physiologic uptake in the heart. Chest wall and axilla: No FDG avid axillary lymphadenopathy. ABDOMEN AND PELVIS: Physiologic uptake seen in the and GI tracts. Liver: No FDG avid lesion. Low-attenuation lesion centered between the posterior aspect of the left hepatic lobe and the body of the pancreas, without associated hypermetabolism. Biliary: Gallbladder is unremarkable. Spleen: No FDG avid lesion. No splenomegaly. Pancreas: No FDG avid lesion. Adrenals: No FDG avid lesion. Kidneys: No stones, hydronephrosis, or FDG avid lesions. GI tract: No dilation or focal suspicious FDG avid lesion. Lymph nodes: No FDG avid abdominal or pelvic lymphadenopathy. Left external iliac/obturator node measures 0.7 cm and has expected low level hypermetabolism (Max SUV 1.8). Mesentery/Peritoneum: No ascites or FDG avid mass. Vasculature: Vascular patency cannot be assessed due to lack of IV contrast. Atherosclerotic calcifications of the abdominal aorta and iliac vessels without aneurysm. Pelvis: Hysterectomy. No ascites, focal fluid collection, or hypermetabolic lesion. Abdominopelvic wall: Postsurgical changes along the ventral pelvic wall with expected low level hypermetabolism. BONES AND EXTREMITIES: No suspicious FDG avid osseous lesion. The imaged portions of the skeleton demonstrates age-related degenerative changes. No destructive osseous lesions. Previous therapy: 1) Carboplatin and paclitaxel x4 cycles. 2) Interval debulking surgery 09/28/2022 3) Carboplatin and paclitaxel x2 cycles. Completed 11/2022. 4) Zejula. Did not tolerate due to side effects (see above). Post op had abdominal pain (incisional pain?) and saw palliative care and was prescribed gabapentin which helped significantly. Now has mild ghost pain on occasion and continues gabapentin to help her sleep--Tried stopping and significant flare of anxiety. Has had buproprion, Vistaril and Effexor from PCP in the past. Recently had 0.5 mg lorazepam for PET and it made her very sedate. Quit smoking at time of ovarian cancer diagnosis. Has episodic dyspnea---can happen at rest or with exertion but never consistently. However she notices a gradual worsening of BORJAS. No further palpitations. No exertional chest pain/pressure. Has sensory neuropathy manifested as a tingling in fingertips and toes. PAST MEDICAL HISTORY Diagnosis Date Cervical high risk human papillomavirus (HPV) DNA test positive DVT (deep vein thrombosis) in 10/16/1984 Heart attack (HCC) 08/2021 PAST SURGICAL HISTORY Procedure Laterality Date APPENDECTOMY 09/2022 COLPOSCOPY CERVIX UPPER/ADJACENT VAGINA 10/15/2008 Colposcopy HUMEROUS LEFT 2ND OR 11/29/2004 left ORIF periarticular fx of distal humerus.screw fixation LIG/TRNSXJ FLP TUBE ABDL/VAG APPR UNI/BI Tubal ligation PT ED HEART AND VASCULAR 08/2021 TOTAL ABDOM HYSTERECTOMY 09/2022 ALLERGIES Allergen Reactions Bactrim [Sulfametho* Hives Dilaudid [Hydromorp* Hives Lipitor [Atorvastat* Diarrhea UTI, poor appetite, diarrhea Metoprolol Diarrhea fatigue, diarrhea Current Outpatient Medications Medication Sig OTC NUTRITIONAL SUPPLEMENT Take 1 capsule by mouth once daily. Ashwagandha Root by [employer] OTC NUTRITIONAL SUPPLEMENT Take 1 capsule by mouth once daily. Ferrasorb by [employer] magnesium oxide 200 mg magnesium tab Take 2 tablets by mouth once daily. gabapentin (NEURONTIN) 300 mg capsule Take 300 mg by mouth once daily. senna (SENOKOT) 8.6 mg tab Take 1 tablet by mouth twice daily. ezetimibe (ZETIA) 10 mg tablet Take 10 mg by mouth once daily. Cholecalciferol, Vitamin D3, 50 mcg (2,000 unit) cap Take 5,000 Units by mouth once daily. aspirin, enteric coated (ASPIRIN, ENTERIC COATED) 81 mg EC tablet Take 81 mg by mouth once daily. nicotine (NICODERM) 7 mg/24 hr Apply 1 Patch as directed every 24 hours. (Patient taking differently: Apply 1 Patch as directed as needed.) No current facility-administered medications for this visit. Social History Tobacco Use Smoking status: Former Packs/day: 0.50 Years: 25.00 Pack years: 12.50 Types: Cigarettes Quit date: 06/23/2022 Years since quittin.6 Smokeless tobacco: Never Tobacco comments: 0 - 1 cigarette per day Vaping Use Vaping Use: Never used Substance Use Topics Alcohol use: No Drug use: No Family History Problem Relation Age of Onset Thyroid Mother Hypertension Father Heart Father Thyroid Sister Half-sister other (CHF) Sister Thyroid Sister Half-sister Colon Cancer Sister Thyroid Sister Half-sister Hypertension Brother Cancer Maternal Grandmother OVARIAN Hypertension Maternal Grandfather Cancer Maternal Grandfather LUNG Lung Cancer Paternal Grandmother ROS: Constitutional: Denies episodes of fever and night sweats. Neuro: Denies vertigo, dizziness and imbalance. HEENT: No recent change in voice, vision or hearing. Resp: See HPI. CVS: See HPI. GI: Denies dysphagia and odynophagia. Denies reflux, n/v, change in bowel habits and abdominal pain. : Denies dysuria or gross hematuria. Endo: Denies hot flashes. Denies polyuria and polydipsia. Denies heat and cold intolerance. Musculoskeletal: No bone, back, joint and muscular pain. Derm: Denies rash. Denies jaundice and diffuse pruritis. Heme: Denies unusual bleeding and unexplained bruising. Psych: Anxiety. PHYSICAL EXAM: Vitals: Blood pressure 120/83, pulse 81, temperature 36.6 C (97.8 F), height 171 cm (5' 7.32 ), weight 51.7 kg (114 lb), last menstrual period 03/23/2012, SpO2 98 %. Well-appearing and in no acute distress. EYES: Sclerae are anicteric bilaterally. ENT: Oral mucosa is unremarkable. There is no sign of thrush or mucositis. Not able to visualize any obvious tonsil lesion. LYMPHATIC: There is no palpable cervical, supraclavicular, axillary or inguinal adenopathy. RESPIRATORY: Inspiratory vesicular breath sounds are of diminished intensity in all cruz. CARDIOVASCULAR: Rhythm is regular. ABDOMEN: The abdomen is nondistended. No organomegaly. Mild generalized tenderness. Extremities: No swelling or edema. SKIN: No jaundice. 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 No focal motor weakness. DTRs are symmetric and normal. MUSCULOSKELETAL: No muscle wasting. LABORATORY DATA: Component Latest Ref Rng & Units 02/09/2023 WBC 3.70 - 11.00 k/uL 8.42 RBC 3.90 - 5.20 m/uL 4.84 Hemoglobin 11.5 - 15.5 g/dL 13.8 Hematocrit 36.0 - 46.0 % 41.8 MCV 80.0 - 100.0 fL 86.4 MCH 26.0 - 34.0 pg 28.5 MCHC 30.5 - 36.0 g/dL 33.0 RDW-CV 11.5 - 15.0 % 15.0 Platelet Count 150 - 400 k/uL 295 MPV 9.0 - 12.7 fL 9.3 Neut% % 61.7 Abs Neut (ANC) 1.45 - 7.50 k/uL 5.19 Lymph% % 29.0 Abs Lymph 1.00 - 4.00 k/uL 2.44 Clay% % 5.2 Abs Clay <0.87 k/uL 0.44 Eosin% % 3.2 Abs Eosin <0.46 k/uL 0.27 Baso% % 0.7 Abs Baso <0.11 k/uL 0.06 Immature Gran % % 0.2 IMMATURE GRANS (ABS) <0.10 k/uL <0.03 NRBC /100 WBC 0.0 Absolute nRBC <0.01 k/uL <0.01 DTYPE Auto Protein, Total 6.3 - 8.0 g/dL 7.9 Albumin 3.9 - 4.9 g/dL 4.9 Calcium 8.5 - 10.2 mg/dL 9.7 Bilirubin, Total 0.2 - 1.3 mg/dL 0.4 Alkaline Phosphatase 34 - 123 U/L 90 AST 13 - 35 U/L 19 ALT 7 - 38 U/L 18 Glucose 74 - 99 mg/dL 105 (H) BUN 7 - 21 mg/dL 14 Creatinine 0.58 - 0.96 mg/dL 0.82 Sodium 136 - 144 mmol/L 138 Potassium 3.7 - 5.1 mmol/L 4.0 Chloride 97 - 105 mmol/L 99 CO2 22 - 30 mmol/L 27 Anion Gap 9 - 18 mmol/L 12 eGFR >=60 mL/min/1.73m 84 CA 125 <39 U/mL 56 (H) ASSESSMENT/PLAN: (C56.3) Malignant neoplasm of both ovaries (HCC) (primary encounter diagnosis) (C78.6) Peritoneal carcinomatosis (HCC) Assessment: -KPS is 90-100% -No HRD including BRCA gene mutation. -Most recent CA125 was obtained at [facility]. 29.7 U/mL. -PET scan negative for ovarian cancer, but not optimal to evaluated carcinomatosis. -Intolerant to Zejula as maintenance. -Discussed option of bevacizumab, but may require biopsy of lung nodule and tonsil in near future so will hold for now. -CA125 noted to increase--resulted after visit. -The disease may very well be still [place] sensitive so options at this time include resuming carboplatin and paclitaxel (neuropathy very mild) with the addition of bevacizumab. Bevacizumab could be used in the maintenance setting after several more cycles of carbo/paclitaxel tolerance. Other options would be carboplatin with Doxil and Avastin or carboplatin with gemcitabine and Avastin. -She was understandably distraught over the delay in her diagnosis. Spent over 90 min with her and her son going through her history, treatment course and other problems outlined in this note. Plan: -Need NGS and genetic testing results. -OV to discuss options. (I25.10) Coronary artery disease involving [place] coronary artery of [place] heart without angina pectoris (Z95.5) History of coronary artery stent placement Assessment: -Had PCI for IA with one stent placed 08/2021. -Completed dual antiplatelet therapy with ASA and clopidogrel (was intolerant to Brilinta) x1 year. -Now on aspirin alone. Plan: -Follow-up with cardiology. 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 -Personally reviewed lung window PET scan images with her. Multiple blebs. -Unevaluated COPD. Plan: -Referral to pulmonary medicine. (R91.1) Incidental lung nodule, greater than or equal to 8mm Assessment: -Incidental finding of 9 mm groundglass/semisolid left upper lobe nodule on recent PET scan. Personally reviewed images with her and her son. -In retrospect, was present but smaller on CTA done [facility] 07/28/2022. -Will ask radiology [facility] to review for biopsy now since she will need to restart therapy for ovarian cancer. -?SBRT if malignant. Plan: -Potential CT guided biopsy at [facility]--order submitted. -Referral to pulmonary medicine. (J35.9) Disorder of lingual tonsil Assessment: -Asymmetric hypermetabolism along the right palatine tonsil which was interpreted as indeterminate. Max SUV 7.6. Associated with tonsil fullness. -Former smoker. Plan: -Referral to ENT for head and neck exam including direct visualization and biopsy if indicated. 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 Plan: -Trial of Cymbalta per below problem. (F41.1, C80.1) Anxiety associated with cancer diagnosis (HCC) Assessment: -She has remained on gabapentin 300 mg at at bedtime. Drug was originally prescribed to help with incisional pain following interval debulking surgery. She remains on because when she tried to stop it in the past she got significant flares of anxiety. -Lower dose Ativan caused sedation. -Discussed rotating to Cymbalta which may offer good antianxiety effect as well as help with depressive symptoms. -Wrote out instructions for tapering dose of gabapentin. Plan: -Begin Cymbalta. -Rx gabapentin 100 mg capsules. Take 2 at at bedtime for 2 weeks then 1 at at bedtime for 2 weeks then stop. I spent a total of 180 minutes on the date of the service which included preparing to see the patient, [id number] patient care, obtaining and/or reviewing separately obtained history, performing a medically appropriate examination, counseling and educating the patient/family/caregiver, ordering medications, tests, or procedures, independently interpreting results (not separately reported), and communicating results to the patient/family/caregiver. Bk Lenz DO documented in this encounter [facility] 02-03-2023 Note HNO ID: [id number] Author: Ana Moe, Comeks Service: ? Author Type: Marketing Analytics Manager Type: Progress Notes Filed: 02/03/2023 12:38 PM Note Text: RADIOLOGY SERVICE PROGRESS NOTE SERVICE DATE: 02/03/2023 SERVICE TIME: 12:38 PM PATIENT IDENTITY VERIFICATION COMPLETED USING TWO (2) STANDARD IDENTIFIERS: Name and Date of confirmed by patient verbally FALL SCREENING: Has the patient had 2 falls in the last year or 1 fall with injury or currently using an Ambulatory Assistive Device (Walker, Cane, Wheelchair, Crutches, etc.)? No PATIENT GENDER DATA: .female : No ALLERGIES: Reviewed and unchanged MEDICATIONS REVIEWED: Not applicable PATIENT RELEVANT IMPLANT DATA REVIEWED: Not Applicable CREATININE: Creatinine Date Value Ref Range Status 01/03/2020 0.96 0.58 - 0.96 mg/dL Final 05/31/2019 0.82 0.58 - 0.96 mg/dL Final 11/21/2014 0.88 0.70 - 1.40 mg/dL Final eGFR-All Other Races Date Value Ref Range Status 01/03/2020 >60 . Final Comment: eGFR (Estimated GFR) Units of measure: mL/min/1.73 meters squared eGFR is derived from the reexpressed MDRD Study equation using the following parameters: serum creatinine, age, gender and race. The creatinine assay has been calibrated to be traceable to IDMS. An eGFR <60 mL/min/1.73m2 for >3 months is consistent with chronic kidney disease. Refer to KDOQI guidelines for clinical interpretation. In patients with unstable renal function, e.g. those with acute kidney injury, the eGFR may not accurately reflect actual GFR. eGFR- Date Value Ref Range Status 01/03/2020 >60 Final P.O.C.T. RESULTS: N/A February 03, [address] PERFORMED: No IV SITE: Ambulatory: NM only - direct IV injection in the Right hand POST EXAM PIV STATUS: Discontinued PROCEDURE TYPE: NM INJECT: PET/CT BODY SCAN. 8.3 mCi F18 FDG. No other medications given.. ADMINISTRATION TIME: 1224 PATIENT DISCHARGED TO: Ambulatory patient, left NM department area. A Diagnostic radioactive procedure has taken place, with no further precautions necessary other than routine body substance precautions. More information regarding radiation safety can be found using this link: [email or web address]%20Me [email or web address] SIGNATURE: Ana Moe Comeks PATIENT NAME: Evelyn Mccabe DATE: February 03, 2023 TIME: 12:38 PM PAGER/CONTACT #: [facility] 02-03-2023 History of Presen t illness Narrative RADIOLOGY SERVICE PROGRESS NOTE SERVICE DATE: 02/03/2023 SERVICE TIME: 12:38 PM PATIENT IDENTITY VERIFICATION COMPLETED USING TWO (2) STANDARD IDENTIFIERS: Name and Date of confirmed by patient verbally FALL SCREENING: Has the patient had 2 falls in the last year or 1 fall with injury or currently using an Ambulatory Assistive Device (Walker, Cane, Wheelchair, Crutches, etc.)? No PATIENT GENDER DATA: .female : No ALLERGIES: Reviewed and unchanged MEDICATIONS REVIEWED: Not applicable PATIENT RELEVANT IMPLANT DATA REVIEWED: Not Applicable CREATININE: Creatinine Date Value Ref Range Status 01/03/2020 0.96 0.58 - 0.96 mg/dL Final 05/31/2019 0.82 0.58 - 0.96 mg/dL Final 11/21/2014 0.88 0.70 - 1.40 mg/dL Final eGFR-All Other Races Date Value Ref Range Status 01/03/2020 >60 . Final Comment: eGFR (Estimated GFR) Units of measure: mL/min/1.73 meters squared eGFR is derived from the reexpressed MDRD Study equation using the following parameters: serum creatinine, age, gender and race. The creatinine assay has been calibrated to be traceable to IDMS. An eGFR <60 mL/min/1.73m2 for >3 months is consistent with chronic kidney disease. Refer to KDOQI guidelines for clinical interpretation. In patients with unstable renal function, e.g. those with acute kidney injury, the eGFR may not accurately reflect actual GFR. eGFR- Date Value Ref Range Status 01/03/2020 >60 Final P.O.C.T. RESULTS: N/A February 03, [address] PERFORMED: No IV SITE: Ambulatory: NM only - direct IV injection in the Right hand POST EXAM PIV STATUS: Discontinued PROCEDURE TYPE: NM INJECT: PET/CT BODY SCAN. 8.3 mCi F18 FDG. No other medications given.. ADMINISTRATION TIME: 1224 PATIENT DISCHARGED TO: Ambulatory patient, left NM department area. A Diagnostic radioactive procedure has taken place, with no further precautions necessary other than routine body substance precautions. More information regarding radiation safety can be found using this link: [email or web address]%20N uclear%20Medicine%20Procedures.p df SIGNATURE: Emani Tyson PATIENT NAME: Evelyn Mccabe DATE: February 03, 2023 TIME: 12:38 PM PAGER/CONTACT #: documented in this encounter [facility] 01-31-2023 Miscellaneous Notes Approved for 90 days #[id number] Colin Sofia MD Called information below and scheduled P2P with Kiki Chandler Case Builder Beam for today at 11:[address] Goldberg (sp?). Please allow for 15 minute moe period for this appt. Will call main number at [phone]. Pt currently scheduled for PET Scan on 02/03/23. Ana Barton Ma OK to call and schedule Peer to peer Colin Sofia MD ----- Message from Daniel Jacob sent at 01/30/2023 5:03 PM EDT ----- Regarding: Confidential // Deaconial: PtShaylee Evelyn Mccabe // Good morning, The below information is for a peer to peer and appeal for a service you have requested. Peer to Peer Information Is a Peer to Peer available?Yes Does Peer to Peer need to be scheduled?Yes Who can schedule?Anyone from doctor's office Who can complete the Peer to Peer?Dr, PA, HEALTH TECH, LN Allowable Peer to Peer timeframe?Must be completed by February 13, 2023 Payer Information Insurance NameMMO/[employer] Insurance P2P Phone [phone] option 4 Case #[id number] Appeal Information Appeal AddressThe [facility] Attn: Appeals [address] [place] [address], [address] [facility] [address] Appeal Special Appeal InstructionsSend it attention to: Appeals department. Include: coversheet with patient's and case information, a formal appeal letter and attach any pertinent supporting clinical documentation. Allowable Timeframe for [id number] days from the denial date on: 01/30/2023 Facility Information [facility] [id number] Tax ID#[id number] Patient Demographics Patient Last NameConnelly Patient First NameMelissa Date of Birth1965 [id number] Clinical/Denial Information Ordering ProviderCOLIN SOFIA Approved Services N/A Denied Services 57419- NM PET/CT WHOLE BODY SUBSEQUENT Alternative Recommendation : N/A Date of Service (DOS)02/03/2023 Denial Reason Based on [facility] Oncology Imaging Guidelines Section(s): Ovarian Cancer - Surveillance (ONC 21.5) and Preface to the Imaging Guidelines, section Preface-3 Clinical Information, we cannot approve this request. Your healthcare provider told us that you are being treated for cancer in your female sex glands (ovaries). The request cannot be approved because: A study similar to the one requested has already been approved for you. A separate approval letter has been sent to you. We need results of the prior approved study that show the need for repeat imaging or your doctor must confirm that the prior approved study was not performed. We have told your doctor about this. Clinical Documentation ProvidedOFFICE NOTES: OFFICE VISIT- 12/12/22 PHONE CALL- 01/17/23 For questions, please contact Kristi . Thank you for the attention, Daniel Sylvester documented in this encounter [facility] 01-26-2023 Miscellaneous Notes Spoke with pt and scheduled Pt has an Onocology referral. Gerardo PSS instructed to get us medical records from where she was treated in the past . Pt. Is scheduled for PET scan in near future Bailey Hannah LPN documented in this encounter [facility] 01-25-2023 Miscellaneous Notes Pt called in she has a PET scan ordered for this Monday in [place]. Put her through to scheduling to see if there was somewhere closer or possibly sending to [facility]. Told her not to cancel that appointment since it was on Monday. documented in this encounter [facility] 11-25-2022 Note Pt arrived ambulator y for cycle 6 Taxol and Carboplatin. Plan of care discussed. Pt just had an office visit. Verified pt took her decadron prep. Pt had labs done at [facility] yesterday 11/24/22 and they accessed port and left it accessed for treatment today. Verified blood return from port. Pt aware of her follow up visit. 1330 pt reports some nausea, requesting something for it. PRN ativan noted on order. Pt agreeable. 1506 Pt tolerated treatment well. Pt aware of her follow up visit and pt is aware that her port flush will need to be flushed if not in use. Pt to discuss at office visit with Dr. Hyatt. 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 Summary Patient Name: Evelyn Mccabe Patient : 1965 Primary Care Physician: Colin Sofia Admit Date: 09/28/2022 Attending Provider: Addy Hyatt MD Principal Diagnosis: Postoperative State Other Diagnosis: Malignant neoplasm of unspecified ovary (HCC) [C56.9] Encounter for chemotherapy management [Z51.11] S/P abdominal hysterectomy [Z90.710] Patient Active Problem List Diagnosis Large bowel obstruction (CMS/HCC) (HCC) Generalized abdominal pain S/P laparoscopy Ovarian cancer (HCC) Secondary malignant neoplasm of peritoneum (HCC) Encounter for chemotherapy management S/P abdominal hysterectomy Severe malnutrition (CMS/HCC) (HCC) 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 female admitted for routine postoperative care. She underwent WILI, omentectomy, debulking, and appendectomy on 09/28/22. She underwent mediport placement by IR on 09/29/22. The patient initially was not passing gas but eventually was having normal bowel function. Her hospital course normal and she was discharged home on 10/03/22. Follow up scheduled with Dr. Hyatt on 10/12/22. The patient's Plavix was discontinued after discussion with patient's lamp stack developer and Eliquis along with pain medications were prescribed. Discharge instructions reviewed and questions answered. Course of patient: normal Discharge to: Home Wound Care: keep wound clean and dry Recommendations on Discharge: Medications: Medication List START taking these medications apixaban 2.5 MG tablet Commonly known as: Eliquis Take 1 tablet (2.5 mg) by mouth 2 times daily for 28 days. simethicone 80 MG chewable tablet Commonly known as: Mylicon Chew 1 tablet (80 mg) as needed for flatulence (or abdominal bloating/distension) for up to 10 days. CHANGE how you take these medications * docusate sodium 100 MG capsule Commonly known as: Colace TAKE 1 CAPSULE BY MOUTH 2 TIMES DAILY What changed: Another medication with the same name was added. Make sure you understand how and when to take each. * docusate sodium 100 MG capsule Commonly known as: Colace TAKE 2 CAPSULES BY MOUTH 2 TIMES DAILY What changed: Another medication with the same name was added. Make sure you understand how and when to take each. * docusate sodium 100 MG capsule Commonly known as: Colace Take 1 capsule (100 mg) by mouth 2 times daily for 10 days. What changed: You were already taking a medication with the same name, and this prescription was added. Make sure you understand how and when to take each. * traMADol 50 MG tablet Commonly known as: Ultram What changed: Another medication with the same name was added. Make sure you understand how and when to take each. * traMADol 50 MG tablet Commonly known as: Ultram Take 1 tablet (50 mg) by mouth every 4 hours as needed for moderate pain (4-6) or severe pain (7-10) for up to 5 days. What changed: You were already taking a medication with the same name, and this prescription was added. Make sure you understand how and when to take each. * This list has 5 medication(s) that are the same as other medications prescribed for you. Read the directions carefully, and ask your doctor or other care provider to review them with you. CONTINUE taking these medications * Acetaminophen Extra Strength 500 MG tablet Generic drug: acetaminophen TAKE 2 TABLETS BY MOUTH EVERY 6 HOURS NEEDED FOR PAIN * Acetaminophen Extra Strength 500 MG tablet Generic drug: acetaminophen Take 2 tablets (1,000 mg) by mouth every 6 hours as needed for mild pain (1-3) for up to 10 days. aspirin 81 MG EC tablet cholecalciferol 50 MCG (2000 UT) capsule Commonly known as: Vitamin D-3 ezetimibe 10 MG tablet Commonly known as: Zetia gabapentin 300 MG capsule Commonly known as: Neurontin Take 1 capsule (300 mg) by mouth in the morning and 1 capsule (300 mg) at noon and 1 capsule (300 mg) before bedtime. magnesium hydroxide 800 MG/5ML suspension Commonly known as: Milk of Magnesia ondansetron 8 MG tablet Commonly known as: Zofran * polyethylene glycol (PEG) 3350 17 g packet Commonly known as: Miralax * GaviLAX 17 GM/SCOOP powder Generic drug: polyethylene glycol (PEG) 3350 TAKE 17 G BY MOUTH DAILY prochlorperazine 10 MG tablet Commonly known as: Compazine senna-docusate 8.6-50 MG tablet Commonly known as: Brianna-Colace * This list has 4 medication(s) that are the same as other medications prescribed for you. Read the directions carefully, and ask your doctor or other care provider to review them with you. STOP taking these medications clopidogrel 75 MG tablet Commonly known as: Plavix ASK your doctor about these medications dexAMETHasone 4 MG tab (more content not included)... [facility] 09-29-2022 Note Interventional Radio logy Brief Postprocedure Note Procedure: IR CVC mediport placement Preprocedure Diagnosis: Ovarian carcinoma Postprocedure Diagnosis: no change Staff: Staff Role Syed Jerome MD Radiologist Suzie Ruiz project asst Nurse Mainor Elmore Orthodontic Lab Technician Katia Holliday Orthodontic Lab Technician Description of procedure: right chest port was inserted Estimated Blood Loss: Minimal Medications Medications (Filter: Administrations occurring from 1641 to 1641 on 09/29/22) As of 09/29/221641 None Specimens No specimens collected Findings: patent right internal jugular vein Plan: please wait for patient to leave inpatient setting prior to accessing port Complications: None Anesthesia: Moderate Sedation See detailed result report with images in PACS. The patient tolerated the procedure well without incident or complication and is in stable condition. Syed Jerome MD Interventional Radiology Pager: [facility] 09-29-2022 Note IR Procedures: This patient is here from [address] for a Port placement . She verbalizes understanding of the procedural instructions. Dr. Jerome has spoken to her. History, allergies, medications and lab results reviewed. Informed consent signed. Prepped and draped in sterile fashion. Time out was performed. She is on a monitor. Tolerated the procedure well. [facility] 09-28-2022 Note Patient: Evelyn kearney Procedure Summary Date: 09/28/22 Room / Location: [facility] OR [address] [place] [address] Operating Room Anesthesia Start: 1028 Anesthesia Stop: 1230 Procedures: TOTAL ABDOMINAL HYSTERECTOMY, BILATERAL SALPINGO OOPHERECTOMY DEBULKING METAPORT PLACEMENT WITH FLURO (Abdomen) INSERT TUNNELED CENTRAL VENOUS CATHETER WITH PORT RESECTION RECURRENT OVARIAN TUBAL PERITONEAL UTERINE MALIGNANCY WITH OMENTECTOMY PELVIC LYMPHADENECTOMY (Abdomen) Diagnosis: Malignant neoplasm of unspecified ovary (HCC) (Malignant neoplasm of unspecified ovary (HCC) [C56.9]) Surgeons: Addy Hyatt MD Responsible Provider: Flaco Mccormick MD Anesthesia Type: general anesthesia ASA Status: 3 Anesthesia Type: general anesthesia Vitals Value Taken Time BP 119/72 09/28/22 1230 Temp 97.3 09/28/22 1239 Pulse 61 09/28/22 1238 Resp 18 09/28/22 1239 SpO2 100 % 09/28/22 1238 Vitals shown include unvalidated device data. Anesthesia Post Evaluation Patient location during evaluation: PACU Patient participation: complete - patient participated Level of consciousness: awake and alert Pain management: satisfactory to patient Airway patency: patent Dental Injury: no Cardiovascular status: acceptable, blood pressure returned to baseline and hemodynamically stable Respiratory status: acceptable and spontaneous ventilation Hydration status: euvolemic Nausea/Vomiting: controlled No notable events documented. Patient can be discharged once all PACU criteria has been met. [facility] 09-28-2022 Note Patient: Evelyn kearney Procedure Summary Date: 09/28/22 Room / Location: [address] Operating Room Anesthesia Start: 1028 Anesthesia Stop: 1230 Procedures: TOTAL ABDOMINAL HYSTERECTOMY, BILATERAL SALPINGO OOPHERECTOMY DEBULKING METAPORT PLACEMENT WITH FLURO (Abdomen) INSERT TUNNELED CENTRAL VENOUS CATHETER WITH PORT RESECTION RECURRENT OVARIAN TUBAL PERITONEAL UTERINE MALIGNANCY WITH OMENTECTOMY PELVIC LYMPHADENECTOMY (Abdomen) Diagnosis: Malignant neoplasm of unspecified ovary (HCC) (Malignant neoplasm of unspecified ovary (HCC) [C56.9]) Surgeons: Addy Hyatt MD Responsible Provider: Flaco Mccormick MD Anesthesia Type: general anesthesia ASA Status: 3 Anesthesia Type: general anesthesia Vitals Value Taken Time BP 119/72 09/28/22 1230 Temp 97.3 09/28/22 1238 Pulse 68 09/28/22 1237 Resp 18 09/28/22 1238 SpO2 100 % 09/28/22 1237 Vitals shown include unvalidated device data. Anesthesia Post Evaluation Patient location during evaluation: PACU Patient participation: complete - patient participated Level of consciousness: awake and alert Pain score: 0 Pain management: satisfactory to patient Multimodal analgesia pain management approach Airway patency: patent Two or more strategies used to mitigate risk of obstructive sleep apnea Cardiovascular status: acceptable and hemodynamically stable Respiratory status: acceptable and spontaneous ventilation Hydration status: acceptable No notable events documented. MIPS #430 PONV Patient received an inhalational anesthetic (4554F) Patient exhibits three or more risk factors for PONV (4556F) Patient received at aset 2 prophylactic Rx PONV anti-emtic agents of different classes preop and/or intraop (G9775) MIPS # 424 Perioperative Temperature Management Anesthesia time was 60 minutes or longer (4255F) Anesthesai administered was General (inhalational or TIVA) or Neuraxial block At least one body temperature greater than 95.8F/35.5C achieved within the 30 mins immediately prior to or the 15 minutes immediately following anesthesia end time MIPS #477 Multimodal Pain Management Not emergent case Patientw was administered multimodal pain management (two or more drugs and/or interventions excluding systemic opioids) in the periopeartive period occurring at some time between 6 hours prior to anesthesia start time until discharged from PACU (G2148) MIPS #404 Anesthesiology Smoking Abstinence MIPS 404 I completed my handoff to the receiving clinician during which we: 1. Identified the patient 2. Identified the responsible provider 3. Reviewed the pertinent medical history 4. Discussed the surgical course 5. Reviewed intra-op anesthesia management and issues during anesthesia 6. Set expectations for post-procedure period 7. Allowed opportunity for questions and acknowledgement of understanding. [facility] 09-28-2022 Note Airway Date/Time: 09/28/2022 10:36 AM Urgency: scheduled General Information and Staff Patient location during procedure: Procedural Resident/GAMING DEALER: Rad Contreras CRNA Other anesthesia staff: Balaji Chandra MD Performed: Other Indications and Patient Condition Indications for airway management: anesthesia Sedation level: Asleep Preoxygenated: yes Patient position: sniffing MILS maintained throughout Mask difficulty assessment: 1 - vent by mask Final Airway Details Final airway type: endotracheal airway Successful airway: ETT Cuffed: yes Successful intubation technique: direct laryngoscopy Endotracheal tube insertion site: oral Blade: Dk Blade size: #3 ETT size (mm): 7.0 Cormack-Lehane Classification: grade I - full view of glottis Placement verified by: chest auscultation and capnometry Measured from: lips ETT to lips (cm): 23 [facility] 09-28-2022 Note Peripheral Block Time Out: 09/28/2022 10:33 AM Patient location during procedure: Procedural Start time: 09/28/2022 10:33 AM End time: 09/28/2022 10:35 AM Reason for block: at surgeon's request and post-op pain management Staffing Performed: GAMING DEALER Resident/GAMING DEALER: Mainor Richards APRN - SHERLEY Preanesthetic Checklist Completed: patient identified, IV checked, site marked, risks and benefits discussed, surgical consent, monitors and equipment checked, pre-op evaluation and timeout performed Region: [place] Primary: TAP (Bupivacaine 0.375%/ Epi 1:200,000/ Dex 0.1mg/mL 30ml divided evenly bilateral) Secondary: Upper rectus (Bupivacaine 0.375%/ Epi 1:200,000/ Dex 0.1mg/mL 10ml divided evenly bilateral) Peripheral Block Patient position: supine Prep: ChloraPrep Patient monitoring: heart rate, open source developer, continuous pulse ox and continuous capnometry O2: ETT/LMA Laterality: bilateral Injection technique: single-shot Guidance: ultrasound guided -image retained in chart, tip of the needle identified by ultraound during injection. Needle Needle: 21G X 110 mm Additional Notes 20 ml of exparel also used09/28/2022 10:33 AM Assessment Injection assessment: negative aspiration for heme, no paresthesia on injection and incremental injection Heart rate change: no Slow fractionated injection: yes Required Documentation: Relevant anatomy identified (Nerves, Vessels, Muscles), Negative for blood on aspiration, Local anesthetic injected incrementally with intermittent aspiration every 5 mL, Normal resistance with injection, No EKG changes noted, No symptoms of toxicity, Local anesthetic spread visualized around nerves or plane. and Local anesthetic injected without difficulty [facility] 09-21-2022 Note Patient: Evelyn kearney Procedure Information Date/Time: 09/28/22 1300 Procedures: TOTAL ABDOMINAL HYSTERECTOMY, BILATERAL SALPINGO OOPHERECTOMY DEBULKING METAPORT PLACEMENT WITH FLURO (Abdomen) INSERT TUNNELED CENTRAL VENOUS CATHETER WITH PORT RESECTION RECURRENT OVARIAN TUBAL PERITONEAL UTERINE MALIGNANCY WITH OMENTECTOMY PELVIC LYMPHADENECTOMY (Abdomen) Location: [facility] OR [address] [place] [address] Operating Room Surgeons: Addy Hyatt MD Past Medical History: Past Medical History: No date: Acute bronchiolitis No date: Acute ST elevation myocardial infarction (CMS/HCC) (HCC) No date: H/O heart artery stent No date: Hx of blood clots Comment: when Past Surgical History: Past Surgical History: No date: CORONARY STENT PLACEMENT; N/A No date: ELBOW SURGERY 07/08/2022: FLEXIBLE SIGMOIDOSCOPY Comment: dr hernandez 06/28/2022: LAPAROSCOPY DIAGNOSTIC / BIOPSY / ASPIRATION / LYSIS Comment: Diagnostic lap, peritoneal biopsies No date: TUBAL LIGATION Social History: TOBACCO: reports that she quit smoking about 2 months ago. Her smoking use included cigarettes. She has a 7.50 pack-year smoking history. She has never used smokeless tobacco. ETOH: reports no history of alcohol use. Social History Substance and Sexual Activity Drug Use Never Family History: Family History Problem Relation Name Age of Onset ? Thyroid disease Sister ? Colon cancer Sister ? Thyroid disease Sister ? Heart disease Father ? Hypertension Father ? Thyroid disease Sister ? Thyroid disease Mother ? Lung cancer Maternal Grandfather ? Heart disease Maternal Grandfather ? Ovarian cancer Maternal Grandmother Screening: Postmenopausal Clinical information reviewed: Allergies Meds OB Status Physical Exam Airway Mallampati: III Cardiovascular Rhythm: regular Rate: normal Dental Pulmonary - normal exam Breath sounds clear to auscultation Abdominal Anesthesia Plan ASA 3 general anesthesia The patient is a current smoker. Patient was previously instructed to abstain from smoking on day of procedure. Patient did not smoke on day of procedure. Anesthetic plan and risks discussed with patient (daughter). patient is NPO General eras TAP block with exparel RADHA Screening STOP-Bang Total Score: 1 Labs: No results found for: WBC, HGB, HCT, MCV, PLT No results found for: NA, K, CL, CO2, BUN, CREATININE, GLUCOSE, CALCIUM, PROT, BILIRUBINFL, ALKPHOS, AST, ALT, EGFR, GLOB Pain Score: 2 No components found for: LVEF, LVEFMODE No echocardiogram results found for the past 14 days EKG 07/22/22 Sin[address] Note from Dr. Barrientos regarding Plavix instructions and last cardiac note in media 09/05/22 [facility] 09-21-2022 Note Comprehensive PreSur gical History and Physical ? Name: Evelyn Mccabe : 1965 (Age-57 y.o.) Date of Service: Pt seen/examined on 09/21/2022 Procedure Information Date/Time: 09/28/22 1300 Procedures: TOTAL ABDOMINAL HYSTERECTOMY, BILATERAL SALPINGO OOPHERECTOMY DEBULKING METAPORT PLACEMENT WITH FLURO (Abdomen) INSERT TUNNELED CENTRAL VENOUS CATHETER WITH PORT RESECTION RECURRENT OVARIAN TUBAL PERITONEAL UTERINE MALIGNANCY WITH OMENTECTOMY PELVIC LYMPHADENECTOMY (Abdomen) Location: [address] Operating Room Surgeons: Addy Hyatt MD Chief Complaint: Malignant neoplasm of unspecified ovary History Of Present Illness: ? Procedures: TOTAL ABDOMINAL HYSTERECTOMY, BILATERAL SALPINGO OOPHERECTOMY DEBULKING METAPORT PLACEMENT WITH FLURO (Abdomen) INSERT TUNNELED CENTRAL VENOUS CATHETER WITH PORT RESECTION RECURRENT OVARIAN TUBAL PERITONEAL UTERINE MALIGNANCY WITH OMENTECTOMY PELVIC LYMPHADENECTOMY (Abdomen) Location: [address] Operating Room Surgeons: Addy Hyatt MD Office note 09/21/22 CC: here for neoadjuvant chemotherapy for stage III high-grade ovarian carcinoma for course # 4 of neoadjuvant carboplatinum and Taxol PD-L1 negative HRD negative BRCA negative HPI: Evelyn Mccabe is a 57 y.o. with a stage III ovarian carcinoma cancer here for Chemotherapy. Patient underwent laparoscopy in June 2022 with the finding of diffuse carcinomatosis. She was subsequently started on neoadjuvant chemotherapy. CA125 level has dropped from 330, the most recent on August 11 was 76 Has noted some neuropathy in hands. Is otherwise tolerating chemotherapy well. Denies any grade 2 or 3 toxicities. Does feel much better, her abdomen feels better. She has been recently having some bilateral knee pain at night. This is new. It is not associated with chemotherapy timing. Has an appointment at the [facility], Dr Barrientos, early September to see if she can come off her Plavix. Patient denies SOB, chest pain, nausea, vomiting, fever, and chills Patient denies history of stroke, TIA,COPD, diabetes, asthma, History of IA 08/2021 does have one cardiac stent History of DVT when over 30 years ago No orders of the defined types were placed in this encounter. Medical History: Past Medical History: No date: Acute bronchiolitis No date: Acute ST elevation myocardial infarction (CMS/HCC) (HCC) No date: H/O heart artery stent No date: Hx of blood clots Comment: when Past Surgical History: Past Surgical History: No date: CORONARY STENT PLACEMENT; N/A No date: ELBOW SURGERY 07/08/2022: FLEXIBLE SIGMOIDOSCOPY Comment: dr hernandez 06/28/2022: LAPAROSCOPY DIAGNOSTIC / BIOPSY / ASPIRATION / LYSIS Comment: Diagnostic lap, peritoneal biopsies No date: TUBAL LIGATION Medications Prior to Admission: Prior to Admission medications Medication Sig Start Date End Date Taking? Authorizing Provider acetaminophen (Tylenol) 500 MG tablet Take by mouth. Historical Provider, acetaminophen (Tylenol) 500 MG tablet TAKE 2 TABLETS BY MOUTH EVERY 6 HOURS NEEDED FOR PAIN 06/28/22 06/28/23 Sarah Manzano MD acetaminophen (Tylenol) 500 MG tablet Take 2 tablets by mouth every 6 hours as needed. 06/28/22 Historical Provider, aspirin 81 MG EC tablet Take 81 mg by mouth in the morning. Historical Provider, cholecalciferol (Vitamin D-3) 50 MCG (1999 UT) capsule Take 2,000 Units by mouth in the morning. 09/13/21 Historical Provider, clopidogrel (Plavix) 75 MG tablet Take by mouth daily. Historical Provider, clopidogrel (Plavix) 75 MG tablet Take 75 mg by mouth in the morning. Historical Provider, dexAMETHasone (Decadron) 4 MG tablet Take 5 tablets 12 hours and 6 hours prior to chemotherapy. 08/30/22 SHALINI Ferrera CNP docusate sodium (Colace) 100 MG capsule TAKE 2 CAPSULES BY MOUTH 2 TIMES DAILY 07/08/22 07/08/23 Sarah Manzano MD docusate sodium (Colace) 100 MG capsule TAKE 1 CAPSULE BY MOUTH 2 TIMES DAILY 06/28/22 06/28/23 Sarah Manzano MD docusate sodium (Colace) 250 MG capsule Take 100 mg by mouth in the morning. Historical Provider, ezetimibe (Zetia) 10 MG tablet Take 10 mg by mouth in the morning. Historical Provider, gabapentin (Neurontin) 300 MG capsule Take 1 capsule (300 mg) by mouth in the morning and 1 capsule (300 mg) at noon and 1 capsule (300 mg) before bedtime. 08/18/22 02/14/23 Delilah Hilliard APRN - MARISA magnesium hydroxide (Milk of Magnesia) 800 MG/5ML suspension Take by mouth Daily as needed for constipation. Historical Provider, ondansetron (Zofran) 8 MG tablet Take by mouth. Historical Provider, oxyCODONE (Roxicodone) 5 MG immediate release tablet TAKE 1 TABLET BY MOUTH EVERY 6 HOURS NEEDED FOR PAIN FOR UP TO 3 DAYS. TAKE LOWEST DOSE POSSIBLE TO MANAGE PAIN 06/28/22 12/25/22 Sarah Manzano MD polyethy (more content not included)... [facility] 09-21-2022 Note Comprehensive PreSur gical History and Physical ? Name: Evelyn Mccabe : 1965 (Age-57 y.o.) Date of Service: Pt seen/examined on 09/21/2022 Procedure Information Date/Time: 09/28/22 1300 Procedures: TOTAL ABDOMINAL HYSTERECTOMY, BILATERAL SALPINGO OOPHERECTOMY DEBULKING METAPORT PLACEMENT WITH FLURO (Abdomen) INSERT TUNNELED CENTRAL VENOUS CATHETER WITH PORT RESECTION RECURRENT OVARIAN TUBAL PERITONEAL UTERINE MALIGNANCY WITH OMENTECTOMY PELVIC LYMPHADENECTOMY (Abdomen) Location: [facility] OR [address] [place] [address] Operating Room Surgeons: Addy Hyatt MD Chief Complaint: Malignant neoplasm of unspecified ovary History Of Present Illness: ? Procedures: TOTAL ABDOMINAL HYSTERECTOMY, BILATERAL SALPINGO OOPHERECTOMY DEBULKING METAPORT PLACEMENT WITH FLURO (Abdomen) INSERT TUNNELED CENTRAL VENOUS CATHETER WITH PORT RESECTION RECURRENT OVARIAN TUBAL PERITONEAL UTERINE MALIGNANCY WITH OMENTECTOMY PELVIC LYMPHADENECTOMY (Abdomen) Location: [facility] OR [address] [place] [address] Operating Room Surgeons: Addy Hyatt MD Office note 09/21/22 CC: here for neoadjuvant chemotherapy for stage III high-grade ovarian carcinoma for course # 4 of neoadjuvant carboplatinum and Taxol PD-L1 negative HRD negative BRCA negative HPI: Evelyn Mccabe is a 57 y.o. with a stage III ovarian carcinoma cancer here for Chemotherapy. Patient underwent laparoscopy in June 2022 with the finding of diffuse carcinomatosis. She was subsequently started on neoadjuvant chemotherapy. CA125 level has dropped from 330, the most recent on August 11 was 76 Has noted some neuropathy in hands. Is otherwise tolerating chemotherapy well. Denies any grade 2 or 3 toxicities. Does feel much better, her abdomen feels better. She has been recently having some bilateral knee pain at night. This is new. It is not associated with chemotherapy timing. Has an appointment at the [facility], Dr Barrientos, early September to see if she can come off her Plavix. Patient denies SOB, chest pain, nausea, vomiting, fever, and chills Patient denies history of stroke, TIA,COPD, diabetes, asthma, History of IA 08/2021 does have one cardiac stent History of DVT when over 30 years ago No orders of the defined types were placed in this encounter. Medical History: Past Medical History: No date: Acute bronchiolitis No date: Acute ST elevation myocardial infarction (CMS/HCC) (HCC) No date: H/O heart artery stent No date: Hx of blood clots Comment: when Past Surgical History: Past Surgical History: No date: CORONARY STENT PLACEMENT; N/A No date: ELBOW SURGERY 07/08/2022: FLEXIBLE SIGMOIDOSCOPY Comment: dr hernandez 06/28/2022: LAPAROSCOPY DIAGNOSTIC / BIOPSY / ASPIRATION / LYSIS Comment: Diagnostic lap, peritoneal biopsies No date: TUBAL LIGATION Medications Prior to Admission: Prior to Admission medications Medication Sig Start Date End Date Taking? Authorizing Provider acetaminophen (Tylenol) 500 MG tablet Take by mouth. Historical Provider, acetaminophen (Tylenol) 500 MG tablet TAKE 2 TABLETS BY MOUTH EVERY 6 HOURS NEEDED FOR PAIN 06/28/22 06/28/23 Sarah Manzano MD acetaminophen (Tylenol) 500 MG tablet Take 2 tablets by mouth every 6 hours as needed. 06/28/22 Historical Provider, aspirin 81 MG EC tablet Take 81 mg by mouth in the morning. Historical Provider, cholecalciferol (Vitamin D-3) 50 MCG (2000 UT) capsule Take 2,000 Units by mouth in the morning. 09/13/21 Historical Provider, clopidogrel (Plavix) 75 MG tablet Take by mouth daily. Historical Provider, clopidogrel (Plavix) 75 MG tablet Take 75 mg by mouth in the morning. Historical Provider, dexAMETHasone (Decadron) 4 MG tablet Take 5 tablets 12 hours and 6 hours prior to chemotherapy. 08/30/22 Sherlyn Davis APRN - MARISA docusate sodium (Colace) 100 MG capsule TAKE 2 CAPSULES BY MOUTH 2 TIMES DAILY 07/08/22 07/08/23 Sarah Manzano MD docusate sodium (Colace) 100 MG capsule TAKE 1 CAPSULE BY MOUTH 2 TIMES DAILY 06/28/22 06/28/23 Sarah Manzano MD docusate sodium (Colace) 250 MG capsule Take 100 mg by mouth in the morning. Historical Provider, ezetimibe (Zetia) 10 MG tablet Take 10 mg by mouth in the morning. Historical Provider, gabapentin (Neurontin) 300 MG capsule Take 1 capsule (300 mg) by mouth in the morning and 1 capsule (300 mg) at noon and 1 capsule (300 mg) before bedtime. 08/18/22 02/14/23 Delilah Hilliard, MANAGER OF TRAINING AND DEVELOPMENT - VENDOR MANAGER magnesium hydroxide (Milk of Magnesia) 800 MG/5ML suspension Take by mouth Daily as needed for constipation. Historical Provider, ondansetron (Zofran) 8 MG tablet Take by mouth. Historical Provider, oxyCODONE (Roxicodone) 5 MG immediate release tablet TAKE 1 TABLET BY MOUTH EVERY 6 HOURS NEEDED FOR PAIN FOR UP TO 3 DAYS. TAKE LOWEST DOSE POSSIBLE TO MANAGE PAIN 06/28/22 12/25/22 Sarah aMnzano MD polyethy (more content not included)... [facility] 07-25-2022 History of Presen t illness Narrative Patient arrived ambulatory, A&Ox3, pt here for re-challenge taxol Cycle 2 Day 4. Pt verbalized understanding of plan of care today. Pt denies any new complaints today, no significant change in the toxicity assessment. Her son is with her today. She reports taking her dec prep as prescribed and she took a zofran at 730 this am. She reports only nausea over the weekend. She reports anxiety over the needle stick and the know of the taxol and how it will go. Emotional support given. She stated her lefty arm is still sore from Monday and her right arm is getting beat up from chemo treatments. She also is on quite a few meds to prevent constipation but is drinking fluids well and trying to eat. She denies bad pain over the weekend that she usually has, she is pleasantly surprised about. Checked with Dr. Hyatt office no yolis for any labs today. 1143 This nurse along with another practitioner approved to administer or prepare chemotherapy (see MAR for practitioner's names) verified the accuracy of the following elements when initiating the chemotherapy treatment: drug name, drug dose, infusion volume or drug volume when prepared in a syringe, rate of administration, route of administration, expiration date/times, appearance and physical integrity of the drugs, rate set on the infusion pump when used, and sequencing of drug administration. See MAR for the specific components of the medication received. Starting at half the rate per orders. 1216 Pt ishmael taxol well, will bumb up to reg rate. 1231 Rella bar welder to see the pt at the chairside. 1546 Pt tolerated treatment well without incident. Pt verbalizes an understanding of their discharge instructions and when to call their physician. Pt aware of their next scheduled appointment. documented in this encounter [facility] Work Phone: 07-08-2022 Note Material Flow Engineer Oncology Dischar ge Summary Patient Name: Evelyn Mccabe Patient : 1965 Primary Care Physician: Colin Sofia Admit Date: 07/06/2022 Attending Provider: Beckie Tsai MD Principal Diagnosis: constipation Other Diagnosis: Generalized abdominal pain [R10.84] Large bowel obstruction (HCC) [K56.609] Patient Active Problem List Diagnosis S/P laparoscopy Secondary malignant neoplasm of peritoneum (HCC) Ovarian cancer (HCC) Large bowel obstruction (HCC) Generalized abdominal pain Surgical Operations & Procedures: flexible sigmoidoscopy 07/08 Consultations: Gastroenterology Pertinent Findings & Procedures: Evleyn Mccabe is a 56 y.o. female with newly diagnosed stage IIIC ovarian carcinoma, admitted for suspected large bowel obstruction after presenting to the ED with constipation, abd pain, nausea, and vomiting as well as CT showing colonic distention and luminal narrowing concerning for obstruction at the rectosigmoid junction. Once in the ED, she had a small bowel movement and began to have diarrhea. GI was consulted and she underwent a flexible sigmoidoscopy which showed congestion at the rectosigmoid junction but no obstruction in the colon. She was discharged home in stable condition on 07/08 with prescriptions for stool softeners and instructions to keep her bowel movements as soft as possible. She will continue chemotherapy with next infusion scheduled in July. Discharge instructions reviewed and questions answered. Course of patient: see above Discharge to: Home Recommendations on Discharge: Medications: Medication List START taking these medications polyethylene glycol 17 GM/SCOOP powder Commonly known as: GLYCOLAX Take 17 g by mouth daily senna 8.6 MG tablet Commonly known as: Senokot Take 1 tablet by mouth 2 times daily CHANGE how you take these medications * docusate sodium 100 MG capsule Commonly known as: COLACE Take 1 capsule by mouth 2 times daily What changed: Another medication with the same name was added. Make sure you understand how and when to take each. * docusate sodium 100 MG capsule Commonly known as: COLACE Take 2 capsules by mouth 2 times daily What changed: You were already taking a medication with the same name, and this prescription was added. Make sure you understand how and when to take each. * This list has 2 medication(s) that are the same as other medications prescribed for you. Read the directions carefully, and ask your doctor or other care provider to review them with you. CONTINUE taking these medications acetaminophen 500 MG tablet Commonly known as: TYLENOL Take 2 tablets by mouth every 6 hours as needed for Pain aspirin 81 MG EC tablet clopidogrel 75 MG tablet Commonly known as: PLAVIX ezetimibe 10 MG tablet Commonly known as: ZETIA ondansetron 8 MG tablet Commonly known as: Zofran Take 1 tablet by mouth every 8 hours as needed for Nausea or Vomiting oxyCODONE 5 MG immediate release tablet Commonly known as: Roxicodone Take 1 tablet by mouth every 6 hours as needed for Pain for up to 5 days. Intended supply: 5 days. Take lowest dose possible to manage pain prochlorperazine 10 MG tablet Commonly known as: COMPAZINE Take 1 tablet by mouth every 6 hours as needed (nausea/vomiting) Where to Get Your Medications These medications were sent to [facility] [address] - [phone] - F [phone] [place] [id number] docusate sodium 100 MG capsule polyethylene glycol 17 GM/SCOOP powder senna 8.6 MG tablet Activity: activity as tolerated Diet: regular diet Follow up: 07/22 chemotherapy infusion Condition on discharge: good and stable Discharge Date: 07/08/2022 Comments: Home care, Follow-up care, restrictions reviewed. Sarah Manzano MD 07/08/2022, 2:14 PM [facility] 07-08-2022 Note Evelyn Reidelly 07/08/2022 10:38 AM Procedure Performed: Flexibile sigmoidoscopy Indication(s): abdominal pain/ovarian cancer/abnormal CT Endoscopist: Micheal Hernandez MD e left lateral position. A rectal exam was performed and was normal. A colonoscope was advanced to the cecum, which was identified by the ileocecal valve and appendiceal oriface. All mucosa was examined on withdrawal. Findings below: Prep Good. Moderate erythema/congestion with ulcerations were noted, predominantly in the proximal descending colon. Overall, the endoscopic appearance favored an ischemic process. No neoplastic lesions/obstruction was noted. The rectosigmoid junction was overall unremarkable aside for mild congestion. An incidental 4mm polyp was identified in the sigmoid colon but no removed due to recent Brilinta OAC use Complications: None. Specimens: None. Final Recommendations: 1.) resume medications and diet 2.) outpatient colonoscopy when patient is more clinically stable 3.) if diarrhea and pain persist through next week, then can consider addition of antibiotics (Cipro/Flagyl). No other inpatient GI recs. Please reconsult as needed. I attempted to contact Dr. Hyatt of results but was unsuccessful due to [employer] error. CC: Colin Hernandez MD [facility] 07-01-2022 History of Presen t illness Narrative 0800 Pt arrived ambulatory with her daughter for her first Taxol/Carboplatin infusion today for ovarian cancer. Plan of care discussed. Pt tearful and anxious. Emotional support provided to the pt. Labs drawn 06/30/22 - good for treatment. IV started. Genetic testing (2 tubes) done off IV start, for Dr. Hyatt office per request of Annette BRAVO. Pt tolerated IV start well. Pt reports more abdomen pain since her biopsy earlier in the week, but does have ongoing pain related to her cancer diagnosis and ascites. Pt with high distress rating. Notified Teresa JOY and Azeb in financial. Provided the pt with Dr. Quiñones business card. Answered all questions and reviewed with pt how to take her antiemetics. Pt verbalized adequate knowledge. Pt aware Rella - bar welder to call her next week. 1420 pt tolerated Taxol and Carbo infusion well, free of incident. Vitals stable. Pt aware of her next appointment. 1427 Pt meeting with Marbella - from patient services re: wigs. 1452 pt discharged to home ambulatory with her daughter. documented in this encounter [facility] Work Phone: 06-28-2022 History of Presen t illness Narrative Discharge information given to the patient. Patient and family verbalized understanding of information. All questions were answered before discharge. Patient ambulated, denies dizziness or nausea. Tolerating PO fluids and crackers. Vital signs are stable. Patient has changed and is being discharged home in a wheelchair with valuables. IV discontinued, catheter intact, manual pressure held. Site benign. documented in this encounter [facility] Work Phone: 06-28-2022 Hospital Discharg e instructions Sarah Manzano MD - 06/28/2022 2:46 PM EDT Please follow your post operative care instructions given to you by your Film Or Tape Librarian Oncologist's office at your pre operative visit. Please call the office with questions or concerns and be sure to follow up at your scheduled post operative visit. The following attachments cannot be sent through Care Everywhere.Pelvic Laparoscopy: Post-op ([place])documented in this encounter [facility] Work Phone: 06-14-2022 Miscellaneous Notes External H&P and Imaging. Scan on 06/13/2022 9:45 PM by External Provider: Consultation - Emergency Medicine View External Imaging - CT Scan [ID [id number]] documented in this encounter [facility] 06-10-2022 Miscellaneous Notes Pt called and notified that order has been faxed. Pt verbalized understanding. Notified pt to contact them to schedule, pt understood. Ana Barton Ma Was the patient notified that the order was faxed to [facility], so that she may schedule the MRI? Colin Sofia MD Yes, order faxed. Blanca Hernandez LPN Was the MRI order faxed? Colin Sofia MD Patient called asking status of order and if it was faxed. Did state that [facility] is in her network. She is hoping to get MRI done sooner than 06/22/22. States in a lot of pain that is getting worse each day. Please advise. Patient call was transferred from [facility] with patient and her insurance Medical Foster person asking for billing code for the MRI. Patient was asking to have MRI order faxed to [facility] so she can have MRI done sooner than 06/22/2022 which it is scheduled at specialty center. Medical mutual person said would need to be authorized gave me phone number [phone]. Advised if order is faxed to [facility] then a referral is placed through computer to get MRI authorized. Patient asking to have MRI order faxed to [facility] please. documented in this encounter [facility] 06-07-2022 Miscellaneous Notes Pt notified and voiced understanding. Transferred to [facility] to set up MRI. Angelica Dasilva Ma Please notify patient that her Abd ultrasound showed what looks like a cyst in her pancrease, but it was recommended to check this out further with an MRI of her pancreas. MRI ordered. Colin Sofai MD documented in this encounter [facility] 06-03-2022 History of Presen t illness Narrative Radiology Service Progress Note PATIENT NAME: Evelyn Mccabe DATE OF SERVICE: June 03, 2022 TIME: 9:34 AM PATIENT IDENTITY VERIFICATION COMPLETED USING TWO (2) IDENTIFIERS: Name and Date of confirmed by patient verbally. FALL SCREENING: Has the patient had 2 falls in the last year or 1 fall with injury or currently using an Ambulatory Assistive Device (Walker, Cane, Wheelchair, Crutches, etc.)? No PATIENT GENDER DATA: Female. status: : No status: N/A PATIENT RELEVANT IMPLANT DATA REVIEWED: Not Applicable RADIOLOGY DEPARTMENT: Ultrasound PERIPHERAL IV DATA: Not applicable SIGNED BY: Marisol Balderrama RDMS RVT June 03, 2022 9:34 AM documented in this encounter [facility] 04-26-2022 Miscellaneous Notes Referral, shin edwards, faxed to Dr. Rajput's office. Pt notified and advised she could call to scheduled. Angelica Dasilva Ma Consult order filed Colin Sofia MD Pt called back and states she would like to see Dr. Rajput at [facility]. She has checked with her insurance and he would be covered. Please let pt know when this referral and information have been sent to Dr. Rajput. Emperatriz Lunsford LPN Patient reports she continues to have nausea all day long, every day. Reports the heart doctor did change her medication, 2 weeks ago, but the change did not help this problem. Reports it is constant, it never lets up. If she pushes on right side she feels pain. It's the whole right side, upper, center, and lower abdomen. Sometimes the pain is just in the RUQ, sometimes just the center, sometimes just LLQ. Reports her BM are normal. Asking if pcp wants to refer her to GI? Please advise patient. documented in this encounter [facility] 02-09-2022 Instructions Ana Barton Ma - 02/09/2022 1:51 PM EDT Call or send in a [facility] message with update if symptoms continue. documented in this encounter [facility] 02-09-2022 History of Presen t illness Narrative Chief Complaint Patient presents with: Diarrhea HPI Evelyn Mccabe is a 56 year old female who presents here today for diarrhea and GI symptoms. Pt sent an appointment request into the office on 01/30/22 due to stomach pain and diarrhea x 7 days. Pt notes that her symptoms have been intermittent and has continued some and she wanted to come in and get checked. Smoking - Uses Nicoderm patch, but smokes 0.5 - 1 cigarette per day. GI - Reports severe stomach pain and bowel incontinence 01/23/22 - 01/30/22. Reports her lower abdomen was very sharp pain, bringing tears to her eyes and was not able to eat during those times. From 02/02/22 to 02/03/22 bowels were loose but able to control them and not having any abdominal pain. Bowels changed to constipation x 3 days, which she's never been in her entired life. Reports regular BM daily every morning. Over the past two days, she's had a couple og when passing bowels, but notes some slight pain or discomfort and nausea. Reports nausea today but no pain. She denies any blood in her stool or black stools. Unsure if this is a stomach bug she picked up. Has not had a colonoscopy but has done cologuard/stool testing in the past. Changed diet in September due to IA. Has cut out red meat, eating more chicken and pork. Eats fruit, vegetables and whole grain. Doesn't feel this should be causing this issue now. Denies any travel prior to her symptoms or being around water. Denies any sick contacts, but she does have 10 grandchildren who may have something, but nothing she was aware of. HM - Declines Covid vaccines. Declines Hep C or HIV screening. Scheduling Mammogram. Declines Depression symptoms. Past medical history, appointments, medications, allergies reviewed. Previous Medical History PAST MEDICAL HISTORY Diagnosis Date Cervical high risk human papillomavirus (HPV) DNA test positive DVT (deep vein thrombosis) in 1984 Previous Surgical History PAST SURGICAL HISTORY Procedure Laterality Date COLPOSCOPY CERVIX UPPER/ADJACENT VAGINA 10/15/2008 Colposcopy HUMEROUS LEFT 2ND OR 11/29/04 left ORIF periarticular fx of distal humerus.screw fixation LIG/TRNSXJ FLP TUBE ABDL/VAG APPR UNI/BI Tubal ligation Family History FAMILY HISTORY Problem Relation Age of Onset Cancer Maternal Grandfather LUNG Cancer Maternal Grandmother OVARIAN Thyroid Mother Hypertension Father Heart Father Hypertension Brother Thyroid Sister Half-sister Thyroid Sister Half-sister Thyroid Sister Half-sister Patient Allergies ALLERGIES Allergen Reactions Bactrim [Sulfametho* Hives, Itching Current Medications Current Outpatient Medications on File Prior to Visit Medication Sig ezetimibe (ZETIA) 10 mg tablet Take 10 mg by mouth once daily. ticagrelor (BRILINTA) 90 mg tablet Take 90 mg by mouth twice daily. Cholecalciferol, Vitamin D3, 50 mcg (2,000 unit) cap Take 2,000 Units by mouth once daily. aspirin, enteric coated (ASPIRIN, ENTERIC COATED) 81 mg EC tablet Take 81 mg by mouth once daily. ibuprofen (MOTRIN) 400 mg tablet Take 400 mg by mouth every 6 hours as needed. nicotine (NICODERM) 7 mg/24 hr Apply 1 Patch as directed every 24 hours. cholecalciferol, Vitamin D3, (VITAMIN D3) 1,250 mcg (50,000 unit) cap capsule Take 1 capsule by mouth one time a week. No current facility-administered medications on file prior to visit. Social History Social History Tobacco Use Smoking status: Current Every Day Smoker Packs/day: 0.50 Years: 25.00 Pack years: 12.50 Types: Cigarettes Smokeless tobacco: Never Used Tobacco comment: 0.5 ppd - trying to quit Vaping Use Vaping Use: Never used Substance Use Topics Alcohol use: No Drug use: No EXAM: BP 120/62 (BP Site: Left Arm, BP Position: Sitting, BP Cuff Size: Regular Adult) Pulse 80 Resp 16 Wt 56.8 kg (125 lb 3.2 oz) LMP 03/23/2012 BMI 19.61 kg/m General Appearance: Well appearing, alert, in no acute distress, well-hydrated, well nourished.. Lungs: Lungs clear to auscultation. No wheezing, rhonchi, rales.. Heart: RRR without murmur, gallop, or rubs. No ectopy. Abdomen: Normal abdominal exam, Abdomen soft, non-tender. Bowel sounds normal. No masses, organomegaly. Pt notes that tenderness is mid lower stomach. Health Maintenance List COVID-19 VACCINE(1) Never done - Declined HEPATITIS C SCREENING Never done - Declined HIV SCREENING Never done - Declined DTAP,TDAP,TD(1 - Tdap) Never done ONE PNEUMOVAX PRIOR TO AGE 65 Never done SHINGRIX VACCINE(1 of 2) Never done COLORECTAL CANCER SCREENING due on 06/01/2020 DEPRESSION SCREENING due on 07/02/2020 - Declines MAMMOGRAM due on 02/26/2022 - Will schedule INFLUENZA(Season Ended) due on 06/16/2022 DIABETES SCREEN due on 01/02/2023 PAP TESTING due on 07/08/2024 HPV TESTING due on 07/08/2024 LIPID SCREEN due on 11/16/2026 MENINGOCOCCAL CONJUGATE Aged Out Data reviewed None ASSESSMENT/PLAN: 1. Change in bowel habit - ICD9: 787.99, ICD10: R19.4 (primary diagnosis) - Possible diverticulitis but denies having a fever. - May be viral - Consider GI consult and Colonoscopy if symptoms continue over the next couple weeks 2. Incontinence of feces, unspecified fecal incontinence type - ICD9: 787.60, ICD10: R15.9 - As noted above 3. Lower abdominal pain - ICD9: 789.09, ICD10: R10.30 - As noted above 4. Nausea - ICD9: 787.02, ICD10: R11.0 - As noted above Continue to monitor symptoms. If not improved or worsening over the next couple weeks, refer pt as noted above. I agree with the Chief Complaint, ROS, and Past Histories independently gathered by the clinical computer systems support specialist and the remaining scribed note accurately describes my personal service to the patient. Medical Decision Making: Problems: Moderate: New problem with uncertain prognosis Risk: Low: Low risk from testing/treatment Medical Decision Making Level: 3 - Low Colin Sofia MD The documentation for this note was completed by Ana Barton Ma acting as scribe for Colin Sofia MD. February 09, 2022 1:45 PM. Ana Barton Ma documented in this encounter [facility] 01-04-2021 History of Presen t illness Narrative Radiology Service Progress Note PATIENT NAME: Evelyn Mccabe DATE OF SERVICE: January 04, 2021 TIME: 8:23 AM PATIENT IDENTITY VERIFICATION COMPLETED USING TWO (2) IDENTIFIERS: Name and Date of confirmed by patient verbally. FALL SCREENING: Has the patient had 2 falls in the last year or 1 fall with injury or currently using an Ambulatory Assistive Device (Walker, Cane, Wheelchair, Crutches, etc.)? No PATIENT GENDER DATA: Female. status: : No status: NO. PATIENT RELEVANT IMPLANT DATA REVIEWED: Not Applicable RADIOLOGY DEPARTMENT: General X-ray: Exam(s) Completed: Upper Extremity X-Ray(s): Fingers/Thumb, right : PERIPHERAL IV DATA: Not applicable SIGNED BY: RT Kristofer January 04, 2021 8:23 AM documented in this encounter [facility] Evaluation note Diagnosis Change in bowel habit- Primary Lower abdominal pain Abdominal pain, other specified site Nausea Nausea alone Diarrhea, unspecified type [facility] Diagnosis Encounter for screening mammogram for breast cancer [facility] Diagnosis Nausea- Primary Nausea alone [facility] Diagnosis Nausea Nausea alone Abdominal pain, unspecified abdominal location [facility] Diagnosis Pancreatic cyst- Primary Cyst and pseudocyst of pancreas [facility] Diagnosis S/P laparoscopy- Primary Other postprocedural status 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 documented in this encounter [facility] Work Phone: Evaluation note* Diagnosis 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 documented in this encounter [facility] Work Phone: Evaluation note* Diagnosis Malignant neoplasm of ovary, unspecified laterality (HCC)- Primary 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 documented in this encounter [facility] Phone: Evaluation note* Diagnosis Malignant neoplasm of ovary, unspecified laterality (HCC)- Primary 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 documented in this encounter [facility] Phone: Evaluation note* Diagnosis Malignant neoplasm of both ovaries (HCC)- Primary Malignant neoplasm of ovary 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 Coronary artery disease involving [place] coronary artery of [place] heart without angina pectoris History of coronary artery stent placement Postsurgical percutaneous transluminal coronary angioplasty status Dyspnea on exertion Other dyspnea and respiratory abnormality Lung blebs (HCC) Emphysematous bleb Incidental lung nodule, greater than or equal to 8mm Solitary pulmonary nodule Disorder of lingual tonsil 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) Malignant neoplasm of right ovary (HCC) Malignant neoplasm of ovary [facility] Diagnosis Malignant neoplasm of both ovaries (HCC)- Primary Malignant neoplasm of ovary 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 Coronary artery disease involving [place] coronary artery of [place] heart without angina pectoris DVT (deep vein thrombosis) in Deep phlebothrombosis, antepartum, unspecified as to episode of care Incidental lung nodule, greater than or equal to 8mm Solitary pulmonary nodule Chronic obstructive pulmonary disease, unspecified COPD type (HCC) 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) Disorder of lingual tonsil [facility] Diagnosis Encounter for education- Primary Counseling NOS [facility] Diagnosis Malignant neoplasm of both ovaries (HCC)- Primary Malignant neoplasm of ovary 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 [facility] Diagnosis Encounter for screening mammogram for breast cancer [facility] Diagnosis Encounter for screening mammogram for breast cancer [facility] Diagnosis Malignant neoplasm of both ovaries (HCC) Malignant neoplasm of ovary 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 Ovarian cancer, bilateral (HCC) Screening for nephropathy [facility] Diagnosis Ovarian cancer, bilateral (HCC)- Primary Screening for nephropathy Malignant neoplasm of both ovaries (HCC) Malignant neoplasm of ovary [facility] Diagnosis Peritoneal carcinomatosis (HCC)- Primary Secondary malignant neoplasm of retroperitoneum and peritoneum [facility] Diagnosis Ovarian cancer, bilateral (HCC)- Primary Pleural effusion Unspecified pleural effusion Pleural effusion Unspecified pleural effusion [facility] Diagnosis Malignant neoplasm of ovary, unspecified laterality (HCC)- Primary Pleural effusion Unspecified pleural effusion Pleural effusion Unspecified pleural effusion [facility] Diagnosis Peritoneal carcinomatosis (HCC)- Primary Secondary malignant neoplasm of retroperitoneum and peritoneum Malignant neoplasm of both ovaries (HCC) Malignant neoplasm of ovary Coronary artery disease involving [place] coronary artery of [place] heart without angina pectoris DVT (deep vein thrombosis) in Deep phlebothrombosis, antepartum, unspecified as to episode of care Chronic obstructive pulmonary disease, unspecified COPD type (HCC) 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) Disorder of lingual tonsil 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 Malignant neoplasm of both ovaries (HCC) Malignant neoplasm of ovary Coronary artery disease involving [place] coronary artery of [place] heart without angina pectoris DVT (deep vein thrombosis) in Deep phlebothrombosis, antepartum, unspecified as to episode of care Chronic obstructive pulmonary disease, unspecified COPD type (HCC) 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) Disorder [facility] lingual [facility]il [facility] Malignant neoplasm of both ovaries (HCC)- Primary Malignant neoplasm of ovary 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 Coronary artery disease involving [place] coronary artery of [place] heart without angina pectoris DVT (deep vein thrombosis) in Deep phlebothrombosis, antepartum, unspecified as to episode of care Chronic obstructive pulmonary disease, unspecified COPD type (HCC) 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) Disorder [facility] lingual tonsil [facility] Diagnosis Peritoneal carcinomatosis (HCC)- Primary Secondary malignant neoplasm of retroperitoneum and peritoneum Malignant neoplasm of both ovaries (HCC) Malignant neoplasm of ovary Coronary artery disease involving [place] coronary artery of [place] heart without angina pectoris DVT (deep vein thrombosis) in Deep phlebothrombosis, antepartum, unspecified as to episode of care Chronic obstructive pulmonary disease, unspecified COPD type (HCC) 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) Disorder of lingual tonsil [facility] Diagnosis Ovarian cancer, bilateral (HCC)- Primary [facility] Diagnosis Malignant neoplasm of both ovaries (HCC) Malignant neoplasm of ovary 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 [facility] Diagnosis Malignant neoplasm of both ovaries (HCC)- Primary Malignant neoplasm of ovary 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) Breast nodule Other (abnormal) findings on radiological examination of breast Chronic obstructive pulmonary disease, unspecified COPD type (HCC) Coronary artery disease involving [place] coronary artery of [place] heart without angina pectoris [facility] Diagnosis Encounter for screening mammogram for malignant neoplasm of breast- Primary Other [facility] Diagnosis Malignant neoplasm of both ovaries (HCC)- Primary Malignant neoplasm of ovary Disseminated ovarian cancer, unspecified laterality (HCC) Malignant pleural effusion [facility] Diagnosis Malignant neoplasm of both ovaries (HCC)- Primary Malignant neoplasm of ovary [facility] Diagnosis Peritoneal carcinomatosis (HCC)- Primary Secondary malignant neoplasm of retroperitoneum and peritoneum Malignant neoplasm of both ovaries (HCC) Malignant neoplasm of ovary Coronary artery disease involving [place] coronary artery of [place] heart without angina pectoris DVT (deep vein thrombosis) in Deep phlebothrombosis, antepartum, unspecified as to episode of care Chronic obstructive pulmonary disease, unspecified COPD type (HCC) 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) Disorder of lingual tonsil [facility] Diagnosis Disseminated ovarian cancer, unspecified laterality (HCC)- Primary 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) [facility] Diagnosis Malignant neoplasm of both ovaries (HCC)- Primary Malignant neoplasm of ovary [facility] Diagnosis Malignant neoplasm of both ovaries (HCC)- Primary Malignant neoplasm of ovary [facility] Diagnosis Malignant neoplasm of both ovaries (HCC)- Primary Malignant neoplasm of ovary [facility] Diagnosis Pain, dental- Primary Unspecified disorder of the teeth and supporting structures [facility] Diagnosis Malignant neoplasm of both ovaries (HCC) Malignant neoplasm of ovary 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 [facility] Diagnosis Malignant neoplasm of both ovaries (HCC)- Primary Malignant neoplasm of ovary [facility] Diagnosis Pleural effusion Unspecified pleural effusion [facility] Diagnosis Breast nodule Other (abnormal) findings on radiological examination of breast [facility] Diagnosis Malignant neoplasm of both ovaries (HCC) Malignant neoplasm of ovary [facility] Diagnosis Malignant neoplasm of both ovaries (HCC) Malignant neoplasm of ovary 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 Chronic obstructive pulmonary disease, unspecified COPD type (HCC) [facility] Diagnosis Breast nodule Other (abnormal) findings on radiological examination of breast [facility] Diagnosis Ovarian cancer, bilateral (HCC) [facility] Diagnosis Malignant neoplasm of both ovaries (HCC)- Primary Malignant neoplasm of ovary 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 Coronary artery disease involving [place] coronary artery of [place] heart without angina pectoris DVT (deep vein thrombosis) in Deep phlebothrombosis, antepartum, unspecified as to episode of care Chronic obstructive pulmonary disease, unspecified COPD type (HCC) 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) Disorder of lingual tonsil [facility] Diagnosis Malignant neoplasm of both ovaries (HCC)- Primary Malignant neoplasm of ovary Pleural effusion on right Unspecified pleural effusion 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 DVT (deep vein thrombosis) in Deep phlebothrombosis, antepartum, unspecified as to episode of care 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) Malignant pleural effusion [facility] Diagnosis Pleural effusion on right Unspecified pleural effusion [facility] Diagnosis Malignant neoplasm of both ovaries (HCC)- Primary Malignant neoplasm of ovary [facility] Diagnosis Malignant neoplasm of both ovaries (HCC)- Primary Malignant neoplasm of ovary [facility]* Diagnosis Peritoneal carcinomatosis (HCC)- Primary 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 Episodic paroxysmal hemicrania Malignant neoplasm of both ovaries (HCC) Malignant neoplasm of ovary Coronary artery disease involving [place] coronary artery of [place] heart without angina pectoris DVT (deep vein thrombosis) in Deep phlebothrombosis, antepartum, unspecified as to episode of care Chemotherapy-induced neuropathy (HCC) (HCC) Polyneuropathy due to drugs Malignant pleural effusion [facility] Diagnosis Malignant neoplasm of both ovaries (HCC) Malignant neoplasm of ovary [facility] Diagnosis 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 Malignant neoplasm of both ovaries (HCC) Malignant neoplasm of ovary Coronary artery disease involving [place] coronary artery of [place] heart without angina pectoris DVT (deep vein thrombosis) in Deep phlebothrombosis, antepartum, unspecified as to episode of care Chronic obstructive pulmonary disease, unspecified COPD type (HCC) Chemotherapy-induced neuropathy (HCC) (HCC) Polyneuropathy due to drugs Anxiety associated with cancer diagnosis (HCC) Disorder of lingual tonsil [facility] Diagnosis Disseminated malignant neoplasm of ovary, unspecified laterality (HCC)- Primary Pleural effusion on right Unspecified pleural effusion Upper abdominal pain Abdominal pain, other specified site Nausea Nausea alone 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 [facility] Diagnosis Pleural effusion on right Unspecified pleural effusion Disseminated malignant neoplasm of ovary, unspecified laterality (HCC) Upper abdominal pain Abdominal pain, other specified site Nausea Nausea alone [facility] Diagnosis Disseminated malignant neoplasm of ovary, unspecified laterality (HCC)- Primary 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 [facility]* Diagnosis 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 Malignant neoplasm of both ovaries (HCC) Malignant neoplasm of ovary Coronary artery disease involving [place] coronary artery of [place] heart without angina pectoris DVT (deep vein thrombosis) in Deep phlebothrombosis, antepartum, unspecified as to episode of care Chronic obstructive pulmonary disease, unspecified COPD type (HCC) 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) Disorder of lingual tonsil Axillary adenopathy Enlargement of lymph nodes Disseminated malignant neoplasm of ovary, unspecified laterality (HCC) [facility] Diagnosis Disseminated malignant neoplasm of ovary, unspecified laterality (HCC)- Primary Axillary adenopathy Enlargement of lymph nodes 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 Axillary adenopathy Enlargement of lymph nodes Disseminated malignant neoplasm of ovary, unspecified laterality (HCC) [facility] Peritoneal carcinomatosis (HCC)- Primary 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, unspecified laterality (HCC) Coronary artery disease involving [place] coronary artery of [place] heart without angina pectoris DVT (deep vein thrombosis) in Deep phlebothrombosis, antepartum, unspecified as to episode of care Chronic obstructive pulmonary disease, unspecified COPD type (HCC) 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) Disorder of lingual tonsil Axillary adenopathy Enlargement of lymph nodes Disseminated malignant neoplasm of ovary, unspecified laterality (HCC) [facility] Peritoneal carcinomatosis (HCC)- Primary Secondary malignant neoplasm of retroperitoneum and peritoneum Axillary adenopathy Enlargement of lymph nodes Disseminated malignant neoplasm of ovary, unspecified laterality (HCC) [facility] Diagnosis Peritoneal carcinomatosis (HCC)- Primary 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, unspecified laterality (HCC) Coronary artery disease involving [place] coronary artery of [place] heart without angina pectoris DVT (deep vein thrombosis) in Deep phlebothrombosis, antepartum, unspecified as to episode of care Chronic obstructive pulmonary disease, unspecified COPD type (HCC) 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) Disorder of lingual tonsil [facility] Diagnosis Malignant neoplasm of both ovaries (HCC)- Primary Malignant neoplasm of ovary 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 Coronary artery disease involving [place] coronary artery of [place] heart without angina pectoris DVT (deep vein thrombosis) in Deep phlebothrombosis, antepartum, unspecified as to episode of care Chronic obstructive pulmonary disease, unspecified COPD type (HCC) 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) Disorder of lingual tonsil [facility] Diagnosis Malignant neoplasm of both ovaries (HCC)- Primary Malignant neoplasm of ovary 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 DVT (deep vein thrombosis) in Deep phlebothrombosis, antepartum, unspecified as to episode of care Anxiety associated with cancer diagnosis (HCC) Malignant pleural effusion [facility] Diagnosis Disseminated malignant neoplasm of ovary, unspecified laterality (HCC)- Primary 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 [facility] Peritoneal carcinomatosis (HCC)- Primary 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, unspecified laterality (HCC) Coronary artery disease involving [place] coronary artery of [place] heart without angina pectoris DVT (deep vein thrombosis) in Deep phlebothrombosis, antepartum, unspecified as to episode of care Chronic obstructive pulmonary disease, unspecified COPD type (HCC) 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) Disorder of lingual tonsil [facility] Diagnosis 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 Malignant neoplasm of both ovaries (HCC) Malignant neoplasm of ovary Coronary artery disease involving [place] coronary artery of [place] heart without angina pectoris DVT (deep vein thrombosis) in Deep phlebothrombosis, antepartum, unspecified as to episode of care Chronic obstructive pulmonary disease, unspecified COPD type (HCC) 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) Disorder of lingual tonsil [facility] Diagnosis Malignant neoplasm of both ovaries (HCC)- Primary Malignant neoplasm of ovary 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 DVT (deep vein thrombosis) in Deep phlebothrombosis, antepartum, unspecified as to episode of care 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) Malignant pleural effusion [facility] Diagnosis Disseminated malignant neoplasm of ovary, unspecified laterality (HCC) 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 [facility] Diagnosis Disseminated malignant neoplasm of ovary, unspecified laterality (HCC)- Primary 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 Coronary artery disease involving [place] coronary artery of [place] heart without angina pectoris DVT (deep vein thrombosis) in Deep phlebothrombosis, antepartum, unspecified as to episode of care Chronic obstructive pulmonary disease, unspecified COPD type (HCC) 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) Disorder of lingual tonsil [facility] Diagnosis Peritoneal carcinomatosis (HCC)- Primary Secondary malignant neoplasm of retroperitoneum and peritoneum Malignant neoplasm of both ovaries (HCC) Malignant neoplasm of ovary Coronary artery disease involving [place] coronary artery of [place] heart without angina pectoris DVT (deep vein thrombosis) in Deep phlebothrombosis, antepartum, unspecified as to episode of care Chronic obstructive pulmonary disease, unspecified COPD type (HCC) 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) Disorder of lingual tonsil [facility] Diagnosis Malignant neoplasm of both ovaries (HCC)- Primary Malignant neoplasm of ovary 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 DVT (deep vein thrombosis) in Deep phlebothrombosis, antepartum, unspecified as to episode of care 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) Malignant pleural effusion [facility] Diagnosis Disseminated malignant neoplasm of ovary, unspecified laterality (HCC) 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 [facility] Diagnosis Disseminated malignant neoplasm of ovary, unspecified laterality (HCC)- Primary 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 Coronary artery disease involving [place] coronary artery of [place] heart without angina pectoris DVT (deep vein thrombosis) in Deep phlebothrombosis, antepartum, unspecified as to episode of care Chronic obstructive pulmonary disease, unspecified COPD type (HCC) 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) Disorder of lingual tonsil [facility] Diagnosis 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 Malignant neoplasm of both ovaries (HCC) Malignant neoplasm of ovary Coronary artery disease involving [place] coronary artery of [place] heart without angina pectoris DVT (deep vein thrombosis) in Deep phlebothrombosis, antepartum, unspecified as to episode of care Chronic obstructive pulmonary disease, unspecified COPD type (HCC) 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) Disorder of lingual tonsil [facility] Diagnosis Malignant neoplasm of both ovaries (HCC)- Primary Malignant neoplasm of ovary 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 [facility] Diagnosis Disseminated malignant neoplasm of ovary, unspecified laterality (HCC) 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 [facility] Diagnosis Disseminated malignant neoplasm of ovary, unspecified laterality (HCC)- Primary 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 Coronary artery disease involving [place] coronary artery of [place] heart without angina pectoris DVT (deep vein thrombosis) in Deep phlebothrombosis, antepartum, unspecified as to episode of care Chronic obstructive pulmonary disease, unspecified COPD type (HCC) 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) Disorder of lingual tonsil [facility] Diagnosis Disseminated malignant neoplasm of ovary, unspecified laterality (HCC)- Primary 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 Coronary artery disease involving [place] coronary artery of [place] heart without angina pectoris DVT (deep vein thrombosis) in Deep phlebothrombosis, antepartum, unspecified as to episode of care Chronic obstructive pulmonary disease, unspecified COPD type (HCC) 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) Disorder of lingual tonsil [facility] Diagnosis Malignant neoplasm of both ovaries (HCC)- Primary Malignant neoplasm of ovary 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 [facility] Diagnosis Malignant neoplasm of both ovaries (HCC)- Primary Malignant neoplasm of ovary 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 [facility] Diagnosis Malignant neoplasm of both ovaries (HCC) Malignant neoplasm of ovary 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 [facility] Diagnosis Malignant neoplasm of both ovaries (HCC)- Primary Malignant neoplasm of ovary 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, unspecified laterality (HCC) [facility] Diagnosis Disseminated malignant neoplasm of ovary, unspecified laterality (HCC)- Primary 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 [facility] Malignant neoplasm of both ovaries (HCC)- Primary Malignant ne[facility] Malignant neoplasm of both ovaries (HCC) Malignant neoplasm of ovary 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 [facility] Diagnosis Other ascites- Primary 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, unspecified laterality (HCC) 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, unspecified laterality (HCC) 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, unspecified laterality (HCC) Other ascites 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, unspecified laterality (HCC) Other ascites 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, unspecified laterality (HCC) Other ascites [facility] Diagnosis Peritoneal carcinomatosis (HCC)- Primary Secondary malignant neoplasm of retroperitoneum and peritoneum Other ascites Malignant neoplasm of both ovaries (HCC) Malignant neoplasm of ovary 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 [facility] Diagnosis Disseminated malignant neoplasm of ovary, unspecified laterality (HCC) 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 [facility] Diagnosis Diarrhea of presumed infectious origin- Primary [facility] Diagnosis Malignant neoplasm of both ovaries (HCC)- Primary Malignant neoplasm of ovary 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 [facility] Diagnosis Malignant neoplasm of both ovaries (HCC)- Primary Malignant neoplasm of ovary 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 Other ascites 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 History of pulmonary embolism Personal history of pulmonary embolism 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, unspecified laterality (HCC) Other ascites [facility] Diagnosis Malignant neoplasm of both ovaries (HCC)- Primary Malignant neoplasm of ovary 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, unspecified laterality (HCC) Other ascites documented in this encounter [facility] note* Diagnosis Disseminated malignant neoplasm of ovary, unspecified laterality (HCC)- Primary 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 documented in this encounter [facility] note* Diagnosis Disseminated malignant neoplasm of ovary, unspecified laterality (HCC)- Primary 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, unspecified laterality (HCC) Other ascites documented in this encounter [facility] note* Diagnosis Peritoneal carcinomatosis (HCC)- Primary Secondary malignant neoplasm of retroperitoneum and peritoneum 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, unspecified laterality (HCC) Other ascites 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, unspecified laterality (HCC) Other ascites 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, unspecified laterality (HCC) Other ascites 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, unspecified laterality (HCC) Other ascites Other ascites 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 Other ascites Disseminated malignant neoplasm of ovary, unspecified laterality (HCC) documented in this encounter [facility] note* Diagnosis Peritoneal carcinomatosis (HCC)- Primary 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, unspecified laterality (HCC) 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, unspecified laterality (HCC) Other ascites 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, unspecified laterality (HCC) Other ascites 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, unspecified laterality (HCC) Other ascites 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, unspecified laterality (HCC) Other ascites Other ascites 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 Other ascites Disseminated malignant neoplasm of ovary, unspecified laterality (HCC) [facility] Diagnosis Malignant neoplasm of ovary, unspecified laterality (HCC) Nodule of upper lobe of left lung Liver lesion, left lobe Other specified disorders of liver Secondary malignancy of iliac lymph nodes (HCC) 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, unspecified laterality (HCC) Other ascites 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, unspecified laterality (HCC) Other ascites 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, unspecified laterality (HCC) Other ascites 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, unspecified laterality (HCC) Other ascites Other ascites 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 Other ascites Disseminated malignant neoplasm of ovary, unspecified laterality (HCC) [facility] Diagnosis Disseminated malignant neoplasm of ovary, unspecified laterality (HCC)- Primary [facility]* Diagnosis Peritoneal carcinomatosis (HCC)- Primary Secondary malignant neoplasm of retroperitoneum and peritoneum [facility] Diagnosis Malignant neoplasm of both ovaries (HCC) Malignant neoplasm of ovary 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 [facility]* Diagnosis Encounter for screening mammogram for breast cancer [facility]* Diagnosis Malignant neoplasm of both ovaries (HCC) Malignant neoplasm of ovary 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 [facility]* Diagnosis Finger injury, initial encounter [facility] Diagnosis Malignant neoplasm of both ovaries (HCC) Malignant neoplasm of ovary 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 [facility] Diagnosis Peritoneal carcinomatosis (HCC)- Primary Secondary malignant neoplasm of retroperitoneum and peritoneum [facility] Diagnosis Malignant neoplasm of both ovaries (HCC) Malignant neoplasm of ovary 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 [facility] Diagnosis Malignant neoplasm of both ovaries (HCC)- Primary Malignant neoplasm of ovary 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 Pleural effusion Unspecified pleural effusion 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) Chemotherapy induced nausea and vomiting Nausea with vomiting Chronic pulmonary embolism without acute cor pulmonale, unspecified pulmonary embolism type (HCC) Malignant pleural effusion documented in this encounter [facility] for referral (narrative)* Diagnostic Procedure Only (Routine) - Pending Review Specialty Diagnoses / Procedures Referred By Blu bynum Referred To Contact BR IMAGING Diagnoses Encounter for screening mammogram for breast cancer Procedures ANTONETTE SCREENING SCREENING MAMMOGRAPHY BI 2-VIEW [facility]AST INC [facility] Colin Sofia MD [address] [place] [address] Br Imaging [address] [place] [address] Referral ID Status Reason Start Date Expiration Date Visits Requested Visits Authorized [id number] Pending Review Auto-Generat ed Referral 04/06/2022 05/06/2023 1 1 T [facility] for referral (narrative)* Diagnostic Procedure Only (Routine) - Closed Specialty Diagnoses / Procedures Referred By Blu bynum Referred To Contact US IMAGING Diagnoses Nausea Abdominal pain, unspecified abdominal location Procedures US ABD RT UPPER QUADRANT US ABDOMINAL REAL TIME W/IMAGE LIMITED Colin Sofia MD [address] [place] [address] Us Imaging Referral ID Status Reason Start Date Expiration Date V isits Requested Visits Authorized [id number] Closed Auto-Generate d Referral 05/30/2022 06/29/2023 1 1 T [facility] for referral (narrative)* Diagnostic Procedure Only (Routine) - Pending Review Specialty Diagnoses / Procedures Referred By Blu bynum Referred To Contact BR IMAGING Diagnoses Encounter for screening mammogram for breast cancer Procedures ANTONETTE SCREENING SCREENING MAMMOGRAPHY BI 2-VIEW BREAST INC CAD Colin Sofia MD [address] [place] [address] [facility] Imaging [address] [place] [address] Referral ID Status Reason Start Date Expiration Date Visits Requested Visits Authorized [id number] Pending Review Auto-Generat ed Referral 03/15/2023 04/13/2024 1 1 [facility] for referral (narrative)* Diagnostic Procedure Only (Routine) - Authorized Specialty Diagnoses / Procedures Referred By Blu bynum Referred To Contact BR IMAGING Diagnoses Breast nodule Procedures US BREAST LTD RIGHT US BREAST UNI REAL TIME WITH IMAGE LIMITED Bk Lenz, [address] [place] [address] Br Imaging [address] [place] [address] Referral ID Status Reason Start Date Expiration Date Visits Requested Visits Authorized [id number] Authorized Auto-Generat ed Referral 05/31/2023 06/29/2024 1 1 * Diagnostic Procedure Only (Routine) - Authorized Specialty Diagnoses / Procedures Referred By Blu bynum Referred To Contact BR IMAGING Diagnoses Breast nodule Procedures ANTONETTE DIAGNOSTIC RIGHT DIAGNOSTIC MAMMOGRAPHY COMPUTER-AIDED DETCJ UNI Bk Lenz DO [address] [facility] [place] [address] Br Imaging [address] [place] [address] Referral ID Status Reason Start Date Expiration Date Visits Requested Visits Authorized [id number] Authorized Auto-Generat ed Referral 05/31/2023 06/29/2024 1 1 [facility] for referral (narrative)* Diagnostic Procedure Only (Routine) - Pending Review Specialty Diagnoses / Procedures Referred By Blu t Referred To Contact BR IMAGING Diagnoses Encounter for screening mammogram for malignant neoplasm of breast Procedures ANTONETTE DIAGNOSTIC BILATERAL DIAGNOSTIC MAMMOGRAPHY COMPUTER-AIDED DETCJ BI Colin Sofia MD [address] [place] [address] Br Imaging [address] [place] [address] Referral ID Status Reason Start Date Expiration Date Visits Requested Visits Authorized [id number] Pending Review Auto-Generat ed Referral 06/01/2023 06/30/2024 1 1 [facility] for referral (narrative)* Diagnostic Procedure Only (Routine) - Closed Specialty Diagnoses / Procedures Referred By Blu bynum Referred To Contact BR IMAGING Diagnoses Breast nodule Procedures US BREAST LTD RIGHT US BREAST UNI REAL TIME WITH IMAGE LIMITED Bk Lenz DO [address] [place] [address] Br Imaging [address] [place] [address] Referral ID Status Reason Start Date Expiration Date V isits Requested Visits Authorized [id number] Closed Auto-Generate d Referral 05/31/2023 06/29/2024 1 1 [facility] for referral (narrative)* Diagnostic Procedure Only (Routine) - Closed Specialty Diagnoses / Procedures Referred By Blu bynum Referred To Contact XR IMAGING Diagnoses Pleural effusion on right Disseminated malignant neoplasm of ovary, unspecified laterality (HCC) Upper abdominal pain Nausea Procedures XR ABDOMEN 2V ROUTINE SUPINE W UPRIGHT/DECUB/CTL RADIOLOGIC EXAM ABDOMEN 2 VIEWS Bk Lenz DO [address] [place] [address] [place] [id number] Referral ID Status Reason Start Date Expiration Date V isits Requested Visits Authorized [id number] Closed Auto-Generate d Referral 11/29/2023 12/28/2024 1 1 * Diagnostic Procedure Only (Routine) - Closed Specialty Diagnoses / Procedures Referred By Blu t Referred To Contact XR IMAGING Diagnoses Pleural effusion on right Disseminated malignant neoplasm of ovary, unspecified laterality (HCC) Upper abdominal pain Nausea Procedures XR CHEST 1V FRONTAL RADIOLOGIC EXAM CHEST SINGLE VIEW Bk Lenz DO [address] [place] [address] [place] [id number] Referral ID Status Reason Start Date Expiration Date V isits Requested Visits Authorized [id number] Closed Auto-Generate d Referral 11/29/2023 12/28/2024 1 1 [facility] for referral (narrative)* Diagnostic Procedure Only (Routine) - Closed Specialty Diagnoses / Procedures Referred By Blu bynum Referred To Contact MOLECULAR & FUNCTIONAL IMAGING Diagnoses Malignant neoplasm of ovary, unspecified laterality (HCC) Nodule of upper lobe of left lung Liver lesion, left lobe Secondary malignancy of iliac lymph nodes (HCC) Procedures NM PET/CT WHOLE BODY SUBSEQUENT PET IMAGING FOR CT ATTENUATION WHOLE BODY Colin Sofia MD [facility] [place] [place] [address] Molecular & Functional Imaging [address] [place] [id number] Referral ID Status Reason Start Date Expiration Date V isits Requested Visits Authorized [id number] Closed Auto-Generate d Referral 01/25/2023 03/11/2023 2 2 [facility] for referral (narrative)* Diagnostic Procedure Only (Routine) - New Request Specialty Diagnoses / Procedures Referred By Blu bynum Referred To Contact BR IMAGING Diagnoses Encounter for screening mammogram for breast cancer Procedures ANTONETTE SCREENING W ASRA SCREENING DIGITAL BREAST TOMOSYNTHESIS BI SCREENING MAMMOGRAPHY BI 2-[place] [address] [place] [address] [facility] [address] [place] [address] Referral ID Status Reason Start Date Expiration Date Visits Requested Visits Authorized [id number] New Request Auto-Generat ed Referral 07/17/2024 08/16/2025 1 1 [facility] for visit Narrative* Treatment Plan and Therapy Plan (Routine) - Authorized Specialty Diagnoses / Procedures [facility] Referred To Contact Diagnoses Secondary malignant neoplasm of peritoneum (HCC) Malignant neoplasm of ovary, unspecified laterality (HCC) Addy Hyatt MD [address] [facility] [place] [address] [facility] [address] [place] [address] Referral ID Status Reason Start Date Expiration Date V isits Requested Visits Authorized [id number] Authorized 06/30/2022 06/30/2023 1 1 MARGIE Tay Phone: [facility] for visit Narrative* Diagnostic Procedure Only (Routine) - Closed Specialty Diagnoses / Procedures [facility] Referred To Contact BR IMAGING Diagnoses Breast nodule Procedures ANTONETTE DIAGNOSTIC RIGHT DIAGNOSTIC MAMMOGRAPHY COMPUTER-AIDED DETCJ UNI Bk Lenz, DO [address] [place] [address] Br Imaging [address] [place] [address] Referral ID Status Reason Start Date Expiration Date V isits Requested Visits Authorized [id number] Closed Auto-Generate d Referral 05/31/2023 06/29/2024 1 1 [facility] for visit Narrative* Diagnostic Procedure Only (Routine) - Closed Specialty Diagnoses / Procedures [facility] Referred To Contact XR IMAGING Diagnoses Pleural effusion on right Disseminated malignant neoplasm of ovary, unspecified laterality (HCC) Upper abdominal pain Nausea Procedures XR ABDOMEN 2V ROUTINE SUPINE W UPRIGHT/DECUB/CTL RADIOLOGIC EXAM ABDOMEN 2 VIEWS Bk Lenz, DO [address] [place] [address] [place] [id number] Referral ID Status Reason Start Date Expiration Date V isits Requested Visits Authorized [id number] Closed Auto-Generate d Referral 11/29/2023 12/28/2024 1 1 [facility] Diagnostic Procedure Only (Routine) - Closed Specialty Diagnoses / Procedures Referred By Contac t Referred To Contact MOLECULAR & FUNCTIONAL IMAGING Diagnoses Malignant neoplasm of ovary, unspecified laterality (HCC) Nodule of upper lobe of left lung Liver lesion, left lobe Secondary malignancy of iliac lymph nodes (HCC) Procedures NM PET/CT WHOLE BODY SUBSEQUENT PET IMAGING FOR CT ATTENUATION WHOLE BODY Colin Sofia MD [address] [place] [address] Molecular & Functional Imaging [address] [place] [address] Referral ID Status Reason Start Date Expiration Date V isits Requested Visits Authorized [id number] Closed Auto-Generate d Referral 01/25/2023 03/11/2023 2 2 [facility] Reason for Referral Specialty Diagnoses / Procedures Referred By Contac t Referred To Contact Gastroenterology Diagnoses Nausea Procedures CONSULT TO GASTROENTEROLOGY OFFICE/OUTPATIENT [facility] 60-74 MINUTES Colin Sofia MD [address] [place] [address] Referral ID Status Reason Start Date Expiration Date Visits Requested Visits Authorized [id number] Authorized PCP Requested Referral 04/26/2022 04/25/2023 1 1 Specialty Diagnoses / Procedures Referred By Contac t Referred To Contact MR IMAGING Diagnoses Pancreatic cyst Procedures MRI PANC/MAXIMUS WO/W IVCON MRI ABDOMEN W/O & W/CONTRAST MATERIAL Colin Sofia MD [address] [place] [address] Mr Imaging Referral ID Status Reason Start Date Expiration Date Visits Requested Visits Authorized [id number] Authorized Auto-Generat ed Referral 06/07/2022 07/22/2022 1 1 Specialty Diagnoses / Procedures Referred By Contac t Referred To Contact CT IMAGING Diagnoses Malignant neoplasm of both ovaries (HCC) Procedures CT CHEST W IVCON DIAGNOSTIC COMPUTED TOMOGRAPHY THORAX W/CONTRAST Ora Walton, MANAGER OF TRAINING AND DEVELOPMENT.VENDOR MANAGER [address] [place] [address] Ct Imaging Referral ID Status Reason Start Date Expiration Date Visits Requested Visits Authorized [id number] Pending Review Auto-Generat ed Referral 03/22/2023 04/20/2024 1 1 Specialty Diagnoses / Procedures Referred By Contac t Referred To Contact CT IMAGING Diagnoses Malignant neoplasm of both ovaries (HCC) Procedures CT ABD/PEL W IVCON CT ABD & PELVIS W/CONTRAST Ora Walton, MANAGER OF TRAINING AND DEVELOPMENT.VENDOR MANAGER [address] [place] [id number] Imaging Referral ID Status Reason Start Date Expiration Date Visits Requested Visits Authorized [id number] Pending Review Auto-Generat ed Referral 03/22/2023 04/20/2024 1 1 Specialty Diagnoses / Procedures Referred By Contac t Referred To Contact CT IMAGING Diagnoses Malignant neoplasm of both ovaries (HCC) Procedures CT CHEST W IVCON DIAGNOSTIC COMPUTED TOMOGRAPHY THORAX W/CONTRAST Ora Walton, MANAGER OF TRAINING AND DEVELOPMENT.VENDOR MANAGER [address] [place] [id number] Imaging [id number] Referral ID Status Reason Start Date Expiration Date V isits Requested Visits Authorized [id number] Closed Auto-Generate d Referral 03/22/2023 04/20/2024 1 1 Specialty Diagnoses / Procedures Referred By Contac t Referred To Contact CT IMAGING Diagnoses Malignant neoplasm of both ovaries (HCC) Procedures CT ABD/PEL W IVCON CT ABD & PELVIS W/CONTRAST Ora Walton, MANAGER OF TRAINING AND DEVELOPMENT.VENDOR MANAGER [address] [place] [phone] [place] [address] Referral ID Status Reason Start Date Expiration Date V isits Requested Visits Authorized [id number] Closed Auto-Generate d Referral 04/10/2023 05/25/2023 1 1 Specialty Diagnoses / Procedures Referred By Contac t Referred To Contact CT IMAGING Diagnoses Ovarian cancer, bilateral (HCC) Procedures CT CHEST W IVCON DIAGNOSTIC COMPUTED TOMOGRAPHY THORAX W/CONTRAST Ora Walton, MANAGER OF TRAINING AND DEVELOPMENT.VENDOR MANAGER [address] [place] [address] [place] [address] Referral ID Status Reason Start Date Expiration Date V isits Requested Visits Authorized [id number] Closed Auto-Generate d Referral 06/20/2023 07/19/2024 1 1 Specialty Diagnoses / Procedures Referred By Contac t Referred To Contact CT IMAGING Diagnoses Ovarian cancer, bilateral (HCC) Procedures CT ABD/PEL W IVCON CT ABD & PELVIS W/CONTRAST Ora Walton, MANAGER OF TRAINING AND DEVELOPMENT.VENDOR MANAGER [address] [phone] Imaging [id number] Referral ID Status Reason Start Date Expiration Date V isits Requested Visits Authorized [id number] Closed Auto-Generate d Referral 06/20/2023 08/04/2023 1 1 Specialty Diagnoses / Procedures Referred By Contac t Referred To Contact CT IMAGING Diagnoses Malignant neoplasm of both ovaries (HCC) Peritoneal carcinomatosis (HCC) Procedures CT ABD/PEL W IVCON CT ABD & PELVIS W/CONTRAST MasciBk A, DO [address] [place] [address] Ct Imaging [place] [address] Referral ID Status Reason Start Date Expiration Date Visits Requested Visits Authorized [id number] Pending Review Auto-Generat ed Referral 3 10/04/2024 1 1 Specialty Diagnoses / Procedures Referred By Contac t Referred To Contact CT IMAGING Diagnoses Malignant neoplasm of both ovaries (HCC) Peritoneal carcinomatosis (HCC) Procedures CT CHEST W IVCON DIAGNOSTIC COMPUTED TOMOGRAPHY THORAX W/CONTRAST MauriceiBk A, DO [address] [place] [address] Ct Imaging [id number] Referral ID Status Reason Start Date Expiration Date Visits Requested Visits Authorized [id number] Pending Review Auto-Generat ed Referral 3 10/04/2024 1 1 Specialty Diagnoses / Procedures Referred By Contac t Referred To Contact MR IMAGING Diagnoses 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 Malignant neoplasm of both ovaries (HCC) Procedures MRI BRAIN WO/W IVCON MRI BRAIN BRAIN STEM W/O W/CONTRAST MATERIAL MasciBk A, DO [address] [place] [address] [place] [address] Referral ID Status Reason Start Date Expiration Date Visits Requested Visits Authorized [id number] Authorized Auto-Generat ed Referral 11/03/2024 1 1 Specialty Diagnoses / Procedures Referred By Contac t Referred To Contact CT IMAGING Diagnoses Disseminated malignant neoplasm of ovary, unspecified laterality (HCC) Peritoneal carcinomatosis (HCC) Malignant neoplasm of both ovaries (HCC) Procedures CT ABD/PEL W IVCON CT ABD & PELVIS W/CONTRAST Bk Lenz, DO [address] [place] [address] [place] [address] Referral ID Status Reason Start Date Expiration Date Visits Requested Visits Authorized [id number] Pending Review Auto-Generat ed Referral 11/29/2023 12/28/2024 1 1 Specialty Diagnoses / Procedures Referred By Contac t Referred To Contact CT IMAGING Diagnoses Disseminated malignant neoplasm of ovary, unspecified laterality (HCC) Peritoneal carcinomatosis (HCC) Malignant neoplasm of both ovaries (HCC) Procedures CT CHEST W IVCON DIAGNOSTIC COMPUTED TOMOGRAPHY THORAX W/CONTRAST Bk Lenz, DO [address] [address] [place] [address] Referral ID Status Reason Start Date Expiration Date Visits Requested Visits Authorized [id number] Pending Review Auto-Generat ed Referral 11/29/2023 12/28/2024 1 1 Specialty Diagnoses / [facility] To Contact X[facility] Diagnoses Pleural effusion on right Disseminated malignant neoplasm of ovary, unspecified laterality (HCC) Upper abdominal pain Nausea Procedures XR ABDOMEN 2V ROUTINE SUPINE W UPRIGHT/DECUB/CTL RADIOLOGIC EXAM ABDOMEN 2 VIEWS Bk Lenz, DO [address] [place] [address] [place] [address] Referral ID Status Reason Start Date Expiration Date V isits Requested Visits Authorized [id number] Closed Auto-Generate d Referral 11/29/2023 12/28/2024 1 1 Specialty Diagnoses / [facility] To Contact XR IMAGING Diagnoses Pleural effusion on right Disseminated malignant neoplasm of ovary, unspecified laterality (HCC) Upper abdominal pain Nausea Procedures XR CHEST 1V FRONTAL RADIOLOGIC EXAM CHEST SINGLE VIEW Bk Lenz, DO [address] [place] [address] [place] [address] Referral ID Status Reason Start Date Expiration Date V isits Requested Visits Authorized [id number] Closed Auto-Generate d Referral 11/29/2023 12/28/2024 1 1 Specialty Diagnoses / Procedures Referred By Contanastasia t Referred To Contact Diagnoses Disseminated malignant neoplasm of ovary, unspecified laterality (HCC) Axillary adenopathy Malignant neoplasm of both ovaries (HCC) Peritoneal carcinomatosis (HCC) Procedures CONSULT TO GYNECOLOGIC/ONCOLOGY OFFICE/OUTPATIENT [facility] 60 MINUTES Bk Lenz, DO [address] [place] [address] Referral ID Status Reason Start Date Expiration Date Visits Requested Visits Authorized [id number] Authorized PCP Requested Referral Auto-Generate d Referral 12/20/2023 12/19/2024 1 1 Referral ID Status Reason Start Date Expiration Date Visits Requested Visits Authorized [id number] Authorized Auto-Generat ed Referral 05/09/2024 06/08/2025 1 1 Referral ID Status Reason Start Date Expiration Date Visits Requested Visits Authorized [id number] Authorized Auto-Generat ed Referral 05/09/2024 06/08/2025 1 1 Advance Directives Latest Code Status on File Code Status Date Activated Date Inactivated Comments Full Code 06/28/2022 12:35 PM Latest Code Status on File Code Status Date Activated Date Inactivated Comments Full Code 06/28/2022 12:35 PM 06/28/2022 7:05 PM Latest Code Status on File Code Status Date Activated Date Inactivated Comments Full Code 06/28/2022 12:35 PM 06/28/2022 7:05 PM Latest Code Status on File Code Status Date Activated Date Inactivated Comments Full Code 07/07/2022 4:35 AM 07/08/2022 6:41 PM Full Code 06/28/2022 12:35 PM 06/28/2022 7:05 PM Latest Code Status on File Code Status Date Activated Date Inactivated Comments Full Code 09/28/2022 9:30 AM 10/03/2022 4:29 PM Summary Purpose Family History No Family History Records FoundNo Family History Records FoundNo Family History Records FoundNo Family History Records FoundNo Family History Records FoundNo Family History Records Found Health Concerns Infection Onset Date Last Indicated Resolved Time COVID-19 Confirmed 05/08/2023 05/08/2023 Infection Onset Date Last Indicated Resolved Time COVID-19 Rule-Out 05/07/2023 05/08/2023 05/08/2023 12:49 AM EDT COVID-19 Confirmed 05/08/2023 05/08/2023 8:51 PM EDT Medications Administered Section Inactive Administered Medications - up to 3 most recent administrations Medication Order MAR Action Action Date Dose Rate Site bevacizumab-bvzr 700 mg in NaCl 0.9% 138 mL (ZIRABEV) 700 mg (rounded from 714 mg = 15 mg/kg/dose 47.6 kg Treatment plan Recorded weight), INTRAVENOUS, Administer over 30 Minutes, ONCE, 1 dose, On Mon05/12/23 at 0830, exp immediate use (room temp) - Do Not Shake Refrigerate - EXP: (8 HR) New Bag/Syringe/Bottle 05/12/2023 8:38 AM EDT 700 mg CARBOplatin 350 mg in NaCl 0.9% 310 mL (PARAPLATIN) 350 mg (rounded from 374.4 mg, Target AUC = 4), INTRAVENOUS, Administer over 30 Minutes, ONCE, 1 dose, On Mon05/12/23 at 0800, exp 0800 05/13/23 (room temp) Hazardous Chemotherapy Drug: Use appropriate PPE. Antineoplastic Irritant. New Bag/Syringe/Bottle 05/12/2023 9:49 AM EDT 350 mg dexAMETHasone 10 mg/NS 50 mL (PYXIS) 10 mg ivpb (DECADRON) 10 mg, INTRAVENOUS, ONCE, 1 dose, On Mon05/12/23 at 0800, Refrigerate. New Bag/Syringe/Bottle 05/12/2023 8:12 AM EDT 10 mg gemcitabine 1,500 mg in NaCl 0.9% 314.45 mL (GEMZAR) 1,500 mg (1,000 mg/m2 1.5 m2 Treatment Plan BSA from Recorded weight), INTRAVENOUS, Administer over 30 Minutes, ONCE, 1 dose, On Mon05/12/23 at 0800, exp 1400 05/13/23 (room temp) Hazardous Chemotherapy Drug: Use appropriate PPE. Antineoplastic Irritant. New Bag/Syringe/Bottle 05/12/2023 9:17 AM EDT 1,500 mg palonosetron 0.25 mg injection (ALOXI) 0.25 mg, INTRAVENOUS, ONCE, 1 dose, On Mon05/12/23 at 0800, Flush IV line with NS prior to and following administration. Given 05/12/2023 8:12 AM EDT 0.25 mg Inactive Administered Medications - up to 3 most recent administrations Medication Order MAR Action Action Date Dose Rate Site gemcitabine 1,500 mg in NaCl 0.9% 314.45 mL (GEMZAR) 1,500 mg (1,000 mg/m2 1.5 m2 Treatment Plan BSA from Recorded weight), INTRAVENOUS, Administer over 30 Minutes, ONCE, 1 dose, On Mon05/19/23 at 1430, exp 199905/20/23 (room temp) Hazardous Chemotherapy Drug: Use appropriate PPE. Antineoplastic Irritant. New Bag/Syringe/Bottle 05/19/2023 2:26 PM EDT 1,500 mg ondansetron (PF) 8 mg injection (ZOFRAN) 8 mg, INTRAVENOUS, ONCE, 1 dose, On Mon05/19/23 at 1430 Given 05/19/2023 2:11 PM EDT 8 mg Inactive Administered Medications - up to 3 most recent administrations Medication Order MAR Action Action Date Dose Rate Site bevacizumab-bvzr 700 mg in NaCl 0.9% 138 mL (ZIRABEV) 700 mg (rounded from 714 mg = 15 mg/kg/dose 47.6 kg Treatment plan Recorded weight), INTRAVENOUS, Administer over 30 Minutes, ONCE, 1 dose, On Mon06/02/23 at 0930, exp immediate use (room temp) - Do Not Shake Refrigerate - EXP: (8 HR) New Bag/Syringe/Bottle 06/02/2023 9:52 AM EDT 700 mg CARBOplatin 333.2 mg in NaCl 0.9% 308.32 mL (PARAPLATIN) 333.2 mg (Target AUC = 4), INTRAVENOUS, Administer over 30 Minutes, ONCE, 1 dose, On Mon06/02/23 at 0930, exp 99906/03/23 (room temp) Hazardous Chemotherapy Drug: Use appropriate PPE. Antineoplastic Irritant. New Bag/Syringe/Bottle 06/02/2023 10:55 AM EDT 333.2 mg dexAMETHasone 10 mg in NaCl 0.9% 50 mL (DECADRON) 10 mg, INTRAVENOUS, ONCE, 1 dose, On Mon06/02/23 at 0930, Refrigerate. New Bag/Syringe/Bottle 06/02/2023 9:37 AM EDT 10 mg gemcitabine 1,500 mg in NaCl 0.9% 314.45 mL (GEMZAR) 1,500 mg (1,000 mg/m2 1.5 m2 Treatment Plan BSA from Recorded weight), INTRAVENOUS, Administer over 30 Minutes, ONCE, 1 dose, On Mon06/02/23 at 0930, exp 1600 06/03/23 (room temp) Hazardous Chemotherapy Drug: Use appropriate PPE. Antineoplastic Irritant. New Bag/Syringe/Bottle 06/02/2023 10:20 AM EDT 1,500 mg palonosetron 0.25 mg injection (ALOXI) 0.25 mg, INTRAVENOUS, ONCE, 1 dose, On Mon06/02/23 at 0930, Flush IV line with NS prior to and following administration. Given 06/02/2023 9:36 AM EDT 0.25 mg Inactive Administered Medications - up to 3 most recent administrations Medication Order MAR Action Action Date Dose Rate Site bevacizumab-bvzr 700 mg in NaCl 0.9% 138 mL (ZIRABEV) 700 mg (rounded from 714 mg = 15 mg/kg/dose 47.6 kg Treatment plan Recorded weight), INTRAVENOUS, Administer over 30 Minutes, ONCE, 1 dose, On Mon06/23/23 at 0830, Approx Total Volume: mL - Do Not Shake Refrigerate - EXP: (8 HR) New Bag/Syringe/Bottle 06/23/2023 8:54 AM EDT 700 mg CARBOplatin 348.8 mg in NaCl 0.9% 309.88 mL (PARAPLATIN) 348.8 mg (Target AUC = 4), INTRAVENOUS, Administer over 30 Minutes, ONCE, 1 dose, On Mon06/23/23 at 0830, exp 0900 06/24/23 (room temp) Hazardous Chemotherapy Drug: Use appropriate PPE. Antineoplastic Irritant. New Bag/Syringe/Bottle 06/23/2023 10:16 AM EDT 348.8 mg dexAMETHasone 10 mg in NaCl 0.9% 50 mL (DECADRON) 10 mg, INTRAVENOUS, ONCE, 1 dose, On Mon06/23/23 at 0830, Refrigerate. New Bag/Syringe/Bottle 06/23/2023 8:27 AM EDT 10 mg gemcitabine 1,500 mg in NaCl 0.9% 314.45 mL (GEMZAR) 1,500 mg (1,000 mg/m2 1.5 m2 Treatment Plan BSA from Recorded weight), INTRAVENOUS, Administer over 30 Minutes, ONCE, 1 dose, On Mon06/23/23 at 0830, exp 1600 06/24/23. (room temp) Hazardous Chemotherapy Drug: Use appropriate PPE. Antineoplastic Irritant. New Bag/Syringe/Bottle 06/23/2023 9:41 AM EDT 1,500 mg palonosetron 0.25 mg injection (ALOXI) 0.25 mg, INTRAVENOUS, ONCE, 1 dose, On Mon06/23/23 at 0830, Flush IV line with NS prior to and following administration. Given 06/23/2023 8:30 AM EDT 0.25 mg Inactive Administered Medications - up to 3 most recent administrations Medication Order MAR Action Action Date Dose Rate Site bevacizumab-bvzr 481 mg in NaCl 0.9% 129.24 mL (ZIRABEV) 481 mg (10 mg/kg/dose 48.1 kg Treatment plan Recorded weight), INTRAVENOUS, Administer over 30 Minutes, ONCE, 1 dose, On Mon07/14/23 at 0930, exp immediate use (room temp) - Do Not Shake Refrigerate - EXP: (8 HR) New Bag/Syringe/Bottle 07/14/2023 10:05 AM EDT 481 mg dexAMETHasone 10 mg in NaCl 0.9% 50 mL (DECADRON) 10 mg, INTRAVENOUS, ONCE, 1 dose, On Mon07/14/23 at 0930, Give 30 minutes prior to chemotherapy. Refrigerate. New Bag/Syringe/Bottle 07/14/2023 9:32 AM EDT 10 mg diphenhydrAMINE 50 mg injection (BENADRYL) 50 mg, INTRAVENOUS, ONCE, 1 dose, On Mon07/14/23 at 0930, Give 30 minutes prior to chemotherapy. Given 07/14/2023 9:32 AM EDT 50 mg DOXOrubicin LIPOSOMAL 60 mg in D5W 305 mL (DOXIL, LIPODOX) 60 mg (rounded from 60.4 mg = 40 mg/m2 1.51 m2 Treatment Plan BSA from Recorded weight), INTRAVENOUS, Administer over 1 Hours, ONCE, 1 dose, On Mon07/14/23 at 0930, DO NOT SHAKE BAG exp 0907/15/23 (room temp) Hazardous Chemotherapy Drug: Use appropriate PPE. Antineoplastic Irritant. Flush line with D5W before and after administration. New Bag/Syringe/Bottle 07/14/2023 10:43 AM EDT 60 mg Inactive Administered Medications - up to 3 most recent administrations Medication Order MAR Action Action Date Dose Rate Site bevacizumab-bvzr 481 mg in NaCl 0.9% 129.24 mL (ZIRABEV) 481 mg (10 mg/kg/dose 48.1 kg Treatment plan Recorded weight), INTRAVENOUS, Administer over 30 Minutes, ONCE, 1 dose, On Mon08/11/23 at 1030, exp immediate use (room temp) - Do Not Shake Refrigerate - EXP: (8 HR) New Bag/Syringe/Bottle 2023 10:31 AM EDT 481 mg DOXOrubicin LIPOSOMAL 60 mg in D5W 305 mL (DOXIL, LIPODOX) 60 mg (rounded from 60.4 mg = 40 mg/m2 1.51 m2 Treatment Plan BSA from Recorded weight), INTRAVENOUS, Administer over 1 Hours, ONCE, 1 dose, On Mon08/11/23 at 1030, DO NOT SHAKE BAG exp 219908/11/23 (room temp) Hazardous Chemotherapy Drug: Use appropriate PPE. Antineoplastic Irritant. Flush line with D5W before and after administration. New Bag/Syringe/Bottle 2023 11:15 AM EDT 60 mg ondansetron (PF) 8 mg injection (ZOFRAN) 8 mg, INTRAVENOUS, ONCE, 1 dose, On Mon08/11/23 at 1030 Given 2023 10:14 AM EDT 8 mg Inactive Administered Medications - up to 3 most recent administrations Medication Order MAR Action Action Date Dose Rate Site bevacizumab-bvzr 481 mg in NaCl 0.9% 129.24 mL (ZIRABEV) 481 mg (10 mg/kg/dose 48.1 kg Treatment plan Recorded weight), INTRAVENOUS, Administer over 30 Minutes, ONCE, 1 dose, On Mon09/08/23 at 0930, exp immediate use (room temp) - Do Not Shake Refrigerate - EXP: (8 HR) New Bag/Syringe/Bottle 09/08/2023 9:34 AM EST 481 mg 260 mL/hr DOXOrubicin LIPOSOMAL 52.85 mg in D5W 301.425 mL (DOXIL, LIPODOX) 52.85 mg (35 mg/m2 1.51 m2 Treatment Plan BSA from Recorded weight), INTRAVENOUS, Administer over 1 Hours, ONCE, 1 dose, On Mon09/08/23 at 0930, DO [place] SHAKE BAG [place] 92909/09/23 (room temp) Hazardous Chemotherapy Drug: Use appropriate PPE. Antineoplastic Irritant. Flush line with D5W before and after administration. New Bag/Syringe/Bottle 09/08/2023 10:18 AM EST 52.85 mg 301 mL/hr ondansetron (PF) 8 mg injection (ZOFRAN) 8 mg, INTRAVENOUS, ONCE, 1 dose, On Mon09/08/23 at 0930 Given 09/08/2023 9:09 AM EST 8 mg Inactive Administered Medications - up to 3 most recent administrations Medication Order MAR Action Action Date Dose Rate Site bevacizumab-bvzr 481 mg in NaCl 0.9% 129.24 mL (ZIRABEV) 481 mg (10 mg/kg/dose 48.1 kg Treatment plan Recorded weight), INTRAVENOUS, Administer over 30 Minutes, ONCE, 1 dose, On Mon09/22/23 at 1500, Approx Total Volume - IMMEDIATE USE at room temp - Do Not Shake Refrigerate - EXP: (8 HR) New Bag/Syringe/Bottle 09/22/2023 3:35 PM EST 481 mg Inactive Administered Medications - up to 3 most recent administrations Medication Order MAR Action Action Date Dose Rate Site cyanocobalamin 1,000 mcg injection 1,000 mcg, INTRAMUSCULAR, ONCE, 1 dose, On Mon10/05/23 at 0930 Given 10/05/2023 9:38 AM EST 1,000 mcg Deltoid, Right Additional Source Comments Source Comments (unrecognize d section and content) In the event this informatio n is protected by the Federal Confidentiality of Alcohol and Drug Abuse Patient Records regulations: The Federal rules restrict any use of the information to criminally investigate or prosecute any alcohol or drug abuse patient.[facility] System[facility] the event this information is protected by the Federal Confidentiality of Alcohol and Drug Abuse Patient Records regulations: The Federal rules restrict any use of the information to criminally investigate or prosecute any alcohol or drug abuse patient.[facility] SystemIn the event this information is protected by the Federal Confidentiality of Alcohol and Drug Abuse Patient Records regulations: The Federal rules restrict any use of the information to criminally investigate or prosecute any alcohol or drug abuse patient.[facility] SystemIn the event this information is protected by the Federal Confidentiality of Alcohol and Drug Abuse Patient Records regulations: The Federal rules restrict any use of the information to criminally investigate or prosecute any alcohol or drug abuse patient.[facility] SystemIn the event this information is protected by the Federal Confidentiality of Alcohol and Drug Abuse Patient Records regulations: The Federal rules restrict any use of the information to criminally investigate or prosecute any alcohol or drug abuse patient.[facility] SystemIn the event this information is protected by the Federal Confidentiality of Alcohol and Drug Abuse Patient Records regulations: The Federal rules restrict any use of the information to criminally investigate or prosecute any alcohol or drug abuse patient.[facility] SystemIn the event this information is protected by the Federal Confidentiality of Alcohol and Drug Abuse Patient Records regulations: The Federal rules restrict any use of the information to criminally investigate or prosecute any alcohol or drug abuse patient.[facility] SystemIn the event this information is protected by the Federal Confidentiality of Alcohol and Drug Abuse Patient Records regulations: The Federal rules restrict any use of the information to criminally investigate or prosecute any alcohol or drug abuse patient.[facility] SystemIn the event this information is protected by the Federal Confidentiality of Alcohol and Drug Abuse Patient Records regulations: The Federal rules restrict any use of the information to criminally investigate or prosecute any alcohol or drug abuse patient.[facility] SystemIn the event this information is protected by the Federal Confidentiality of Alcohol and Drug Abuse Patient Records regulations: The Federal rules restrict any use of the information to criminally investigate or prosecute any alcohol or drug abuse patient.[facility] SystemIn the event this information is protected by the Federal Confidentiality of Alcohol and Drug Abuse Patient Records regulations: The Federal rules restrict any use of the information to criminally investigate or prosecute any alcohol or drug abuse patient.[facility] SystemIn the event this information is protected by the Federal Confidentiality of Alcohol and Drug Abuse Patient Records regulations: The Federal rules restrict any use of the information to criminally investigate or prosecute any alcohol or drug abuse patient.[facility] SystemIn the event this information is protected by the Federal Confidentiality of Alcohol and Drug Abuse Patient Records regulations: The Federal rules restrict any use of the information to criminally investigate or prosecute any alcohol or drug abuse patient.[facility] SystemIn the event this information is protected by the Federal Confidentiality of Alcohol and Drug Abuse Patient Records regulations: The Federal rules restrict any use of the information to criminally investigate or prosecute any alcohol or drug abuse patient.[facility] SystemIn the event this information is protected by the Federal Confidentiality of Alcohol and Drug Abuse Patient Records regulations: The Federal rules restrict any use of the information to criminally investigate or prosecute any alcohol or drug abuse patient.[facility] SystemIn the event this information is protected by the Federal Confidentiality of Alcohol and Drug Abuse Patient Records regulations: The Federal rules restrict any use of the information to criminally investigate or prosecute any alcohol or drug abuse patient.[facility] SystemIn the event this information is protected by the Federal Confidentiality of Alcohol and Drug Abuse Patient Records regulations: The Federal rules restrict any use of the information to criminally investigate or prosecute any alcohol or drug abuse patient.[facility] SystemIn the event this information is protected by the Federal Confidentiality of Alcohol and Drug Abuse Patient Records regulations: The Federal rules restrict any use of the information to criminally investigate or prosecute any alcohol or drug abuse patient.[facility] SystemIn the event this information is protected by the Federal Confidentiality of Alcohol and Drug Abuse Patient Records regulations: The Federal rules restrict any use of the information to criminally investigate or prosecute any alcohol or drug abuse patient.[facility] SystemIn the event this information is protected by the Federal Confidentiality of Alcohol and Drug Abuse Patient Records regulations: The Federal rules restrict any use of the information to criminally investigate or prosecute any alcohol or drug abuse patient.[facility] SystemIn the event this information is protected by the Federal Confidentiality of Alcohol and Drug Abuse Patient Records regulations: The Federal rules restrict any use of the information to criminally investigate or prosecute any alcohol or drug abuse patient.[facility] SystemIn the event this information is protected by the Federal Confidentiality of Alcohol and Drug Abuse Patient Records regulations: The Federal rules restrict any use of the information to criminally investigate or prosecute any alcohol or drug abuse patient.[facility] SystemIn the event this information is protected by the Federal Confidentiality of Alcohol and Drug Abuse Patient Records regulations: The Federal rules restrict any use of the information to criminally investigate or prosecute any alcohol or drug abuse patient.[facility] SystemIn the event this information is protected by the Federal Confidentiality of Alcohol and Drug Abuse Patient Records regulations: The Federal rules restrict any use of the information to criminally investigate or prosecute any alcohol or drug abuse patient.[facility] SystemIn the event this information is protected by the Federal Confidentiality of Alcohol and Drug Abuse Patient Records regulations: The Federal rules restrict any use of the information to criminally investigate or prosecute any alcohol or drug abuse patient.[facility] SystemIn the event this information is protected by the Federal Confidentiality of Alcohol and Drug Abuse Patient Records regulations: The Federal rules restrict any use of the information to criminally investigate or prosecute any alcohol or drug abuse patient.[facility] SystemIn the event this information is protected by the Federal Confidentiality of Alcohol and Drug Abuse Patient Records regulations: The Federal rules restrict any use of the information to criminally investigate or prosecute any alcohol or drug abuse patient.[facility] SystemIn the event this information is protected by the Federal Confidentiality of Alcohol and Drug Abuse Patient Records regulations: The Federal rules restrict any use of the information to criminally investigate or prosecute any alcohol or drug abuse patient.[facility] SystemIn the event this information is protected by the Federal Confidentiality of Alcohol and Drug Abuse Patient Records regulations: The Federal rules restrict any use of the information to criminally investigate or prosecute any alcohol or drug abuse patient.[facility] SystemIn the event this information is protected by the Federal Confidentiality of Alcohol and Drug Abuse Patient Records regulations: The Federal rules restrict any use of the information to criminally investigate or prosecute any alcohol or drug abuse patient.[facility] SystemIn the event this information is protected by the Federal Confidentiality of Alcohol and Drug Abuse Patient Records regulations: The Federal rules restrict any use of the information to criminally investigate or prosecute any alcohol or drug abuse patient.[facility] SystemIn the event this information is protected by the Federal Confidentiality of Alcohol and Drug Abuse Patient Records regulations: The Federal rules restrict any use of the information to criminally investigate or prosecute any alcohol or drug abuse patient.[facility] SystemIn the event this information is protected by the Federal Confidentiality of Alcohol and Drug Abuse Patient Records regulations: The Federal rules restrict any use of the information to criminally investigate or prosecute any alcohol or drug abuse patient.[facility] SystemIn the event this information is protected by the Federal Confidentiality of Alcohol and Drug Abuse Patient Records regulations: The Federal rules restrict any use of the information to criminally investigate or prosecute any alcohol or drug abuse patient.[facility] SystemIn the event this information is protected by the Federal Confidentiality of Alcohol and Drug Abuse Patient Records regulations: The Federal rules restrict any use of the information to criminally investigate or prosecute any alcohol or drug abuse patient.[facility] SystemIn the event this information is protected by the Federal Confidentiality of Alcohol and Drug Abuse Patient Records regulations: The Federal rules restrict any use of the information to criminally investigate or prosecute any alcohol or drug abuse patient.[facility] SystemIn the event this information is protected by the Federal Confidentiality of Alcohol and Drug Abuse Patient Records regulations: The Federal rules restrict any use of the information to criminally investigate or prosecute any alcohol or drug abuse patient.[facility] SystemIn the event this information is protected by the Federal Confidentiality of Alcohol and Drug Abuse Patient Records regulations: The Federal rules restrict any use of the information to criminally investigate or prosecute any alcohol or drug abuse patient.[facility] SystemIn the event this information is protected by the Federal Confidentiality of Alcohol and Drug Abuse Patient Records regulations: The Federal rules restrict any use of the information to criminally investigate or prosecute any alcohol or drug abuse patient.[facility] SystemIn the event this information is protected by the Federal Confidentiality of Alcohol and Drug Abuse Patient Records regulations: The Federal rules restrict any use of the information to criminally investigate or prosecute any alcohol or drug abuse patient.[facility] SystemIn the event this information is protected by the Federal Confidentiality of Alcohol and Drug Abuse Patient Records regulations: The Federal rules restrict any use of the information to criminally investigate or prosecute any alcohol or drug abuse patient.[facility] SystemIn the event this information is protected by the Federal Confidentiality of Alcohol and Drug Abuse Patient Records regulations: The Federal rules restrict any use of the information to criminally investigate or prosecute any alcohol or drug abuse patient.[facility] SystemIn the event this information is protected by the Federal Confidentiality of Alcohol and Drug Abuse Patient Records regulations: The Federal rules restrict any use of the information to criminally investigate or prosecute any alcohol or drug abuse patient.[facility] SystemIn the event this information is protected by the Federal Confidentiality of Alcohol and Drug Abuse Patient Records regulations: The Federal rules restrict any use of the information to criminally investigate or prosecute any alcohol or drug abuse patient.[facility] SystemIn the event this information is protected by the Federal Confidentiality of Alcohol and Drug Abuse Patient Records regulations: The Federal rules restrict any use of the information to criminally investigate or prosecute any alcohol or drug abuse patient.[facility] SystemIn the event this information is protected by the Federal Confidentiality of Alcohol and Drug Abuse Patient Records regulations: The Federal rules restrict any use of the information to criminally investigate or prosecute any alcohol or drug abuse patient.[facility] SystemIn the event this information is protected by the Federal Confidentiality of Alcohol and Drug Abuse Patient Records regulations: The Federal rules restrict any use of the information to criminally investigate or prosecute any alcohol or drug abuse patient.[facility] SystemIn the event this information is protected by the Federal Confidentiality of Alcohol and Drug Abuse Patient Records regulations: The Federal rules restrict any use of the information to criminally investigate or prosecute any alcohol or drug abuse patient.[facility] SystemIn the event this information is protected by the Federal Confidentiality of Alcohol and Drug Abuse Patient Records regulations: The Federal rules restrict any use of the information to criminally investigate or prosecute any alcohol or drug abuse patient.[facility] SystemIn the event this information is protected by the Federal Confidentiality of Alcohol and Drug Abuse Patient Records regulations: The Federal rules restrict any use of the information to criminally investigate or prosecute any alcohol or drug abuse patient.[facility] SystemIn the event this information is protected by the Federal Confidentiality of Alcohol and Drug Abuse Patient Records regulations: The Federal rules restrict any use of the information to criminally investigate or prosecute any alcohol or drug abuse patient.[facility] SystemIn the event this information is protected by the Federal Confidentiality of Alcohol and Drug Abuse Patient Records regulations: The Federal rules restrict any use of the information to criminally investigate or prosecute any alcohol or drug abuse patient.[facility] SystemIn the event this information is protected by the Federal Confidentiality of Alcohol and Drug Abuse Patient Records regulations: The Federal rules restrict any use of the information to criminally investigate or prosecute any alcohol or drug abuse patient.[facility] SystemIn the event this information is protected by the Federal Confidentiality of Alcohol and Drug Abuse Patient Records regulations: The Federal rules restrict any use of the information to criminally investigate or prosecute any alcohol or drug abuse patient.[facility] SystemIn the event this information is protected by the Federal Confidentiality of Alcohol and Drug Abuse Patient Records regulations: The Federal rules restrict any use of the information to criminally investigate or prosecute any alcohol or drug abuse patient.[facility] SystemIn the event this information is protected by the Federal Confidentiality of Alcohol and Drug Abuse Patient Records regulations: The Federal rules restrict any use of the information to criminally investigate or prosecute any alcohol or drug abuse patient.[facility] SystemIn the event this information is protected by the Federal Confidentiality of Alcohol and Drug Abuse Patient Records regulations: The Federal rules restrict any use of the information to criminally investigate or prosecute any alcohol or drug abuse patient.[facility] SystemIn the event this information is protected by the Federal Confidentiality of Alcohol and Drug Abuse Patient Records regulations: The Federal rules restrict any use of the information to criminally investigate or prosecute any alcohol or drug abuse patient.[facility] SystemIn the event this information is protected by the Federal Confidentiality of Alcohol and Drug Abuse Patient Records regulations: The Federal rules restrict any use of the information to criminally investigate or prosecute any alcohol or drug abuse patient.[facility] SystemIn the event this information is protected by the Federal Confidentiality of Alcohol and Drug Abuse Patient Records regulations: The Federal rules restrict any use of the information to criminally investigate or prosecute any alcohol or drug abuse patient.[facility] SystemIn the event this information is protected by the Federal Confidentiality of Alcohol and Drug Abuse Patient Records regulations: The Federal rules restrict any use of the information to criminally investigate or prosecute any alcohol or drug abuse patient.[facility] SystemIn the event this information is protected by the Federal Confidentiality of Alcohol and Drug Abuse Patient Records regulations: The Federal rules restrict any use of the information to criminally investigate or prosecute any alcohol or drug abuse patient.[facility] SystemIn the event this information is protected by the Federal Confidentiality of Alcohol and Drug Abuse Patient Records regulations: The Federal rules restrict any use of the information to criminally investigate or prosecute any alcohol or drug abuse patient.[facility] SystemIn the event this information is protected by the Federal Confidentiality of Alcohol and Drug Abuse Patient Records regulations: The Federal rules restrict any use of the information to criminally investigate or prosecute any alcohol or drug abuse patient.[facility] SystemIn the event this information is protected by the Federal Confidentiality of Alcohol and Drug Abuse Patient Records regulations: The Federal rules restrict any use of the information to criminally investigate or prosecute any alcohol or drug abuse patient.[facility] SystemIn the event this information is protected by the Federal Confidentiality of Alcohol and Drug Abuse Patient Records regulations: The Federal rules restrict any use of the information to criminally investigate or prosecute any alcohol or drug abuse patient.[facility] SystemIn the event this information is protected by the Federal Confidentiality of Alcohol and Drug Abuse Patient Records regulations: The Federal rules restrict any use of the information to criminally investigate or prosecute any alcohol or drug abuse patient.[facility] SystemIn the event this information is protected by the Federal Confidentiality of Alcohol and Drug Abuse Patient Records regulations: The Federal rules restrict any use of the information to criminally investigate or prosecute any alcohol or drug abuse patient.[facility] SystemIn the event this information is protected by the Federal Confidentiality of Alcohol and Drug Abuse Patient Records regulations: The Federal rules restrict any use of the information to criminally investigate or prosecute any alcohol or drug abuse patient.[facility] SystemIn the event this information is protected by the Federal Confidentiality of Alcohol and Drug Abuse Patient Records regulations: The Federal rules restrict any use of the information to criminally investigate or prosecute any alcohol or drug abuse patient.[facility]In the event this information is protected by the Federal Confidentiality of Alcohol and Drug Abuse Patient Records regulations: The Federal rules restrict any use of the information to criminally investigate or prosecute any alcohol or drug abuse patient.[facility] SystemIn the event this information is protected by the Federal Confidentiality of Alcohol and Drug Abuse Patient Records regulations: The Federal rules restrict any use of the information to criminally investigate or prosecute any alcohol or drug abuse patient.[facility] SystemIn the event this information is protected by the Federal Confidentiality of Alcohol and Drug Abuse Patient Records regulations: The Federal rules restrict any use of the information to criminally investigate or prosecute any alcohol or drug abuse patient.[facility] SystemIn the event this information is protected by the Federal Confidentiality of Alcohol and Drug Abuse Patient Records regulations: The Federal rules restrict any use of the information to criminally investigate or prosecute any alcohol or drug abuse patient.[facility]In the event this information is protected by the Federal Confidentiality of Alcohol and Drug Abuse Patient Records regulations: The Federal rules restrict any use of the information to criminally investigate or prosecute any alcohol or drug abuse patient.[facility]In the event this information is protected by the Federal Confidentiality of Alcohol and Drug Abuse Patient Records regulations: The Federal rules restrict any use of the information to criminally investigate or prosecute any alcohol or drug abuse patient.[facility] SystemIn the event this information is protected by the Federal Confidentiality of Alcohol and Drug Abuse Patient Records regulations: The Federal rules restrict any use of the information to criminally investigate or prosecute any alcohol or drug abuse patient.[facility] SystemIn the event this information is protected by the Federal Confidentiality of Alcohol and Drug Abuse Patient Records regulations: The Federal rules restrict any use of the information to criminally investigate or prosecute any alcohol or drug abuse patient.[facility] SystemIn the event this information is protected by the Federal Confidentiality of Alcohol and Drug Abuse Patient Records regulations: The Federal rules restrict any use of the information to criminally investigate or prosecute any alcohol or drug abuse patient.[facility]In the event this information is protected by the Federal Confidentiality of Alcohol and Drug Abuse Patient Records regulations: The Federal rules restrict any use of the information to criminally investigate or prosecute any alcohol or drug abuse patient.[facility]In the event this information is protected by the Federal Confidentiality of Alcohol and Drug Abuse Patient Records regulations: The Federal rules restrict any use of the information to criminally investigate or prosecute any alcohol or drug abuse patient.[facility]In the event this information is protected by the Federal Confidentiality of Alcohol and Drug Abuse Patient Records regulations: The Federal rules restrict any use of the information to criminally investigate or prosecute any alcohol or drug abuse patient.[facility] SystemIn the event this information is protected by the Federal Confidentiality of Alcohol and Drug Abuse Patient Records regulations: The Federal rules restrict any use of the information to criminally investigate or prosecute any alcohol or drug abuse patient.[facility]In the event this information is protected by the Federal Confidentiality of Alcohol and Drug Abuse Patient Records regulations: The Federal rules restrict any use of the information to criminally investigate or prosecute any alcohol or drug abuse patient.[facility] SystemIn the event this information is protected by the Federal Confidentiality of Alcohol and Drug Abuse Patient Records regulations: The Federal rules restrict any use of the information to criminally investigate or prosecute any alcohol or drug abuse patient.[facility]In the event this information is protected by the Federal Confidentiality of Alcohol and Drug Abuse Patient Records regulations: The Federal rules restrict any use of the information to criminally investigate or prosecute any alcohol or drug abuse patient.[facility] SystemIn the event this information is protected by the Federal Confidentiality of Alcohol and Drug Abuse Patient Records regulations: The Federal rules restrict any use of the information to criminally investigate or prosecute any alcohol or drug abuse patient.[facility]In the event this information is protected by the Federal Confidentiality of Alcohol and Drug Abuse Patient Records regulations: The Federal rules restrict any use of the information to criminally investigate or prosecute any alcohol or drug abuse patient.[facility] SystemIn the event this information is protected by the Federal Confidentiality of Alcohol and Drug Abuse Patient Records regulations: The Federal rules restrict any use of the information to criminally investigate or prosecute any alcohol or drug abuse patient.[facility]In the event this information is protected by the Federal Confidentiality of Alcohol and Drug Abuse Patient Records regulations: The Federal rules restrict any use of the information to criminally investigate or prosecute any alcohol or drug abuse patient.[facility]In the event this information is protected by the Federal Confidentiality of Alcohol and Drug Abuse Patient Records regulations: The Federal rules restrict any use of the information to criminally investigate or prosecute any alcohol or drug abuse patient.[facility]In the event this information is protected by the Federal Confidentiality of Alcohol and Drug Abuse Patient Records regulations: The Federal rules restrict any use of the information to criminally investigate or prosecute any alcohol or drug abuse patient.[facility]In the event this information is protected by the Federal Confidentiality of Alcohol and Drug Abuse Patient Records regulations: The Federal rules restrict any use of the information to criminally investigate or prosecute any alcohol or drug abuse patient.[facility]In the event this information is protected by the Federal Confidentiality of Alcohol and Drug Abuse Patient Records regulations: The Federal rules restrict any use of the information to criminally investigate or prosecute any alcohol or drug abuse patient.[facility]In the event this information is protected by the Federal Confidentiality of Alcohol and Drug Abuse Patient Records regulations: The Federal rules restrict any use of the information to criminally investigate or prosecute any alcohol or drug abuse patient.[facility]In the event this information is protected by the Federal Confidentiality of Alcohol and Drug Abuse Patient Records regulations: The Federal rules restrict any use of the information to criminally investigate or prosecute any alcohol or drug abuse patient.[facility]In the event this information is protected by the Federal Confidentiality of Alcohol and Drug Abuse Patient Records regulations: The Federal rules restrict any use of the information to criminally investigate or prosecute any alcohol or drug abuse patient.[facility]In the event this information is protected by the Federal Confidentiality of Alcohol and Drug Abuse Patient Records regulations: The Federal rules restrict any use of the information to criminally investigate or prosecute any alcohol or drug abuse patient.[facility]In the event this information is protected by the Federal Confidentiality of Alcohol and Drug Abuse Patient Records regulations: The Federal rules restrict any use of the information to criminally investigate or prosecute any alcohol or drug abuse patient.[facility]In the event this information is protected by the Federal Confidentiality of Alcohol and Drug Abuse Patient Records regulations: The Federal rules restrict any use of the information to criminally investigate or prosecute any alcohol or drug abuse patient.[facility]In the event this information is protected by the Federal Confidentiality of Alcohol and Drug Abuse Patient Records regulations: The Federal rules restrict any use of the information to criminally investigate or prosecute any alcohol or drug abuse patient.[facility]In the event this information is protected by the Federal Confidentiality of Alcohol and Drug Abuse Patient Records regulations: The Federal rules restrict any use of the information to criminally investigate or prosecute any alcohol or drug abuse patient.[facility]In the event this information is protected by the Federal Confidentiality of Alcohol and Drug Abuse Patient Records regulations: The Federal rules restrict any use of the information to criminally investigate or prosecute any alcohol or drug abuse patient.[facility]In the event this information is protected by the Federal Confidentiality of Alcohol and Drug Abuse Patient Records regulations: The Federal rules restrict any use of the information to criminally investigate or prosecute any alcohol or drug abuse patient.[facility]In the event this information is protected by the Federal Confidentiality of Alcohol and Drug Abuse Patient Records regulations: The Federal rules restrict any use of the information to criminally investigate or prosecute any alcohol or drug abuse patient.[facility]In the event this information is protected by the Federal Confidentiality of Alcohol and Drug Abuse Patient Records regulations: The Federal rules restrict any use of the information to criminally investigate or prosecute any alcohol or drug abuse patient.[facility]In the event this information is protected by the Federal Confidentiality of Alcohol and Drug Abuse Patient Records regulations: The Federal rules restrict any use of the information to criminally investigate or prosecute any alcohol or drug abuse patient.[facility]In the event this information is protected by the Federal Confidentiality of Alcohol and Drug Abuse Patient Records regulations: The Federal rules restrict any use of the information to criminally investigate or prosecute any alcohol or drug abuse patient.[facility]In the event this information is protected by the Federal Confidentiality of Alcohol and Drug Abuse Patient Records regulations: The Federal rules restrict any use of the information to criminally investigate or prosecute any alcohol or drug abuse patient.[facility]In the event this information is protected by the Federal Confidentiality of Alcohol and Drug Abuse Patient Records regulations: The Federal rules restrict any use of the information to criminally investigate or prosecute any alcohol or drug abuse patient.[facility]In the event this information is protected by the Federal Confidentiality of Alcohol and Drug Abuse Patient Records regulations: The Federal rules restrict any use of the information to criminally investigate or prosecute any alcohol or drug abuse patient.[facility]In the event this information is protected by the Federal Confidentiality of Alcohol and Drug Abuse Patient Records regulations: The Federal rules restrict any use of the information to criminally investigate or prosecute any alcohol or drug abuse patient.[facility]In the event this information is protected by the Federal Confidentiality of Alcohol and Drug Abuse Patient Records regulations: The Federal rules restrict any use of the information to criminally investigate or prosecute any alcohol or drug abuse patient.[facility]In the event this information is protected by the Federal Confidentiality of Alcohol and Drug Abuse Patient Records regulations: The Federal rules restrict any use of the information to criminally investigate or prosecute any alcohol or drug abuse patient.[facility]In the event this information is protected by the Federal Confidentiality of Alcohol and Drug Abuse Patient Records regulations: The Federal rules restrict any use of the information to criminally investigate or prosecute any alcohol or drug abuse patient.[facility]In the event this information is protected by the Federal Confidentiality of Alcohol and Drug Abuse Patient Records regulations: The Federal rules restrict any use of the information to criminally investigate or prosecute any alcohol or drug abuse patient.[facility]In the event this information is protected by the Federal Confidentiality of Alcohol and Drug Abuse Patient Records regulations: The Federal rules restrict any use of the information to criminally investigate or prosecute any alcohol or drug abuse patient.[facility]In the event this information is protected by the Federal Confidentiality of Alcohol and Drug Abuse Patient Records regulations: The Federal rules restrict any use of the information to criminally investigate or prosecute any alcohol or drug abuse patient.[facility]In the event this information is protected by the Federal Confidentiality of Alcohol and Drug Abuse Patient Records regulations: The Federal rules restrict any use of the information to criminally investigate or prosecute any alcohol or drug abuse patient.[facility]In the event this information is protected by the Federal Confidentiality of Alcohol and Drug Abuse Patient Records regulations: The Federal rules restrict any use of the information to criminally investigate or prosecute any alcohol or drug abuse patient.[facility]In the event this information is protected by the Federal Confidentiality of Alcohol and Drug Abuse Patient Records regulations: The Federal rules restrict any use of the information to criminally investigate or prosecute any alcohol or drug abuse patient.[facility]In the event this information is protected by the Federal Confidentiality of Alcohol and Drug Abuse Patient Records regulations: The Federal rules restrict any use of the information to criminally investigate or prosecute any alcohol or drug abuse patient.[facility] SystemIn the event this information is protected by the Federal Confidentiality of Alcohol and Drug Abuse Patient Records regulations: The Federal rules restrict any use of the information to criminally investigate or prosecute any alcohol or drug abuse patient.[facility] SystemIn the event this information is protected by the Federal Confidentiality of Alcohol and Drug Abuse Patient Records regulations: The Federal rules restrict any use of the information to criminally investigate or prosecute any alcohol or drug abuse patient.[facility] SystemIn the event this information is protected by the Federal Confidentiality of Alcohol and Drug Abuse Patient Records regulations: The Federal rules restrict any use of the information to criminally investigate or prosecute any alcohol or drug abuse patient.[facility] SystemIn the event this information is protected by the Federal Confidentiality of Alcohol and Drug Abuse Patient Records regulations: The Federal rules restrict any use of the information to criminally investigate or prosecute any alcohol or drug abuse patient.[facility] SystemIn the event this information is protected by the Federal Confidentiality of Alcohol and Drug Abuse Patient Records regulations: The Federal rules restrict any use of the information to criminally investigate or prosecute any alcohol or drug abuse patient.[facility] SystemIn the event this information is protected by the Federal Confidentiality of Alcohol and Drug Abuse Patient Records regulations: The Federal rules restrict any use of the information to criminally investigate or prosecute any alcohol or drug abuse patient.[facility] SystemIn the event this information is protected by the Federal Confidentiality of Alcohol and Drug Abuse Patient Records regulations: The Federal rules restrict any use of the information to criminally investigate or prosecute any alcohol or drug abuse patient.[facility] SystemIn the event this information is protected by the Federal Confidentiality of Alcohol and Drug Abuse Patient Records regulations: The Federal rules restrict any use of the information to criminally investigate or prosecute any alcohol or drug abuse patient.[facility] SystemIn the event this information is protected by the Federal Confidentiality of Alcohol and Drug Abuse Patient Records regulations: The Federal rules restrict any use of the information to criminally investigate or prosecute any alcohol or drug abuse patient.[facility] SystemIn the event this information is protected by the Federal Confidentiality of Alcohol and Drug Abuse Patient Records regulations: The Federal rules restrict any use of the information to criminally investigate or prosecute any alcohol or drug abuse patient.[facility] SystemIn the event this information is protected by the Federal Confidentiality of Alcohol and Drug Abuse Patient Records regulations: The Federal rules restrict any use of the information to criminally investigate or prosecute any alcohol or drug abuse patient.[facility] SystemIn the event this information is protected by the Federal Confidentiality of Alcohol and Drug Abuse Patient Records regulations: The Federal rules restrict any use of the information to criminally investigate or prosecute any alcohol or drug abuse patient.[facility] SystemIn the event this information is protected by the Federal Confidentiality of Alcohol and Drug Abuse Patient Records regulations: The Federal rules restrict any use of the information to criminally investigate or prosecute any alcohol or drug abuse patient.[facility] SystemIn the event this information is protected by the Federal Confidentiality of Alcohol and Drug Abuse Patient Records regulations: The Federal rules restrict any use of the information to criminally investigate or prosecute any alcohol or drug abuse patient.[facility] SystemIn the event this information is protected by the Federal Confidentiality of Alcohol and Drug Abuse Patient Records regulations: The Federal rules restrict any use of the information to criminally investigate or prosecute any alcohol or drug abuse patient.[facility] SystemIn the event this information is protected by the Federal Confidentiality of Alcohol and Drug Abuse Patient Records regulations: The Federal rules restrict any use of the information to criminally investigate or prosecute any alcohol or drug abuse patient.[facility] SystemIn the event this information is protected by the Federal Confidentiality of Alcohol and Drug Abuse Patient Records regulations: The Federal rules restrict any use of the information to criminally investigate or prosecute any alcohol or drug abuse patient.[facility] SystemIn the event this information is protected by the Federal Confidentiality of Alcohol and Drug Abuse Patient Records regulations: The Federal rules restrict any use of the information to criminally investigate or prosecute any alcohol or drug abuse patient.[facility] SystemIn the event this information is protected by the Federal Confidentiality of Alcohol and Drug Abuse Patient Records regulations: The Federal rules restrict any use of the information to criminally investigate or prosecute any alcohol or drug abuse patient.[facility] SystemIn the event this information is protected by the Federal Confidentiality of Alcohol and Drug Abuse Patient Records regulations: The Federal rules restrict any use of the information to criminally investigate or prosecute any alcohol or drug abuse patient.[facility] SystemIn the event this information is protected by the Federal Confidentiality of Alcohol and Drug Abuse Patient Records regulations: The Federal rules restrict any use of the information to criminally investigate or prosecute any alcohol or drug abuse patient.[facility] SystemIn the event this information is protected by the Federal Confidentiality of Alcohol and Drug Abuse Patient Records regulations: The Federal rules restrict any use of the information to criminally investigate or prosecute any alcohol or drug abuse patient.[facility] SystemIn the event this information is protected by the Federal Confidentiality of Alcohol and Drug Abuse Patient Records regulations: The Federal rules restrict any use of the information to criminally investigate or prosecute any alcohol or drug abuse patient.[facility] SystemIn the event this information is protected by the Federal Confidentiality of Alcohol and Drug Abuse Patient Records regulations: The Federal rules restrict any use of the information to criminally investigate or prosecute any alcohol or drug abuse patient.[facility] SystemIn the event this information is protected by the Federal Confidentiality of Alcohol and Drug Abuse Patient Records regulations: The Federal rules restrict any use of the information to criminally investigate or prosecute any alcohol or drug abuse patient.[facility] SystemIn the event this information is protected by the Federal Confidentiality of Alcohol and Drug Abuse Patient Records regulations: The Federal rules restrict any use of the information to criminally investigate or prosecute any alcohol or drug abuse patient.[facility] SystemIn the event this information is protected by the Federal Confidentiality of Alcohol and Drug Abuse Patient Records regulations: The Federal rules restrict any use of the information to criminally investigate or prosecute any alcohol or drug abuse patient.[facility] SystemIn the event this information is protected by the Federal Confidentiality of Alcohol and Drug Abuse Patient Records regulations: The Federal rules restrict any use of the information to criminally investigate or prosecute any alcohol or drug abuse patient.[facility] SystemIn the event this information is protected by the Federal Confidentiality of Alcohol and Drug Abuse Patient Records regulations: The Federal rules restrict any use of the information to criminally investigate or prosecute any alcohol or drug abuse patient.[facility] SystemIn the event this information is protected by the Federal Confidentiality of Alcohol and Drug Abuse Patient Records regulations: The Federal rules restrict any use of the information to criminally investigate or prosecute any alcohol or drug abuse patient.[facility] SystemIn the event this information is protected by the Federal Confidentiality of Alcohol and Drug Abuse Patient Records regulations: The Federal rules restrict any use of the information to criminally investigate or prosecute any alcohol or drug abuse patient.[facility] SystemIn the event this information is protected by the Federal Confidentiality of Alcohol and Drug Abuse Patient Records regulations: The Federal rules restrict any use of the information to criminally investigate or prosecute any alcohol or drug abuse patient.[facility] SystemIn the event this information is protected by the Federal Confidentiality of Alcohol and Drug Abuse Patient Records regulations: The Federal rules restrict any use of the information to criminally investigate or prosecute any alcohol or drug abuse patient.[facility] SystemIn the event this information is protected by the Federal Confidentiality of Alcohol and Drug Abuse Patient Records regulations: The Federal rules restrict any use of the information to criminally investigate or prosecute any alcohol or drug abuse patient.[facility] SystemIn the event this information is protected by the Federal Confidentiality of Alcohol and Drug Abuse Patient Records regulations: The Federal rules restrict any use of the information to criminally investigate or prosecute any alcohol or drug abuse patient.[facility] SystemIn the event this information is protected by the Federal Confidentiality of Alcohol and Drug Abuse Patient Records regulations: The Federal rules restrict any use of the information to criminally investigate or prosecute any alcohol or drug abuse patient.[facility] SystemIn the event this information is protected by the Federal Confidentiality of Alcohol and Drug Abuse Patient Records regulations: The Federal rules restrict any use of the information to criminally investigate or prosecute any alcohol or drug abuse patient.[facility] SystemIn the event this information is protected by the Federal Confidentiality of Alcohol and Drug Abuse Patient Records regulations: The Federal rules restrict any use of the information to criminally investigate or prosecute any alcohol or drug abuse patient.[facility] SystemIn the event this information is protected by the Federal Confidentiality of Alcohol and Drug Abuse Patient Records regulations: The Federal rules restrict any use of the information to criminally investigate or prosecute any alcohol or drug abuse patient.[facility] SystemIn the event this information is protected by the Federal Confidentiality of Alcohol and Drug Abuse Patient Records regulations: The Federal rules restrict any use of the information to criminally investigate or prosecute any alcohol or drug abuse patient.[facility] SystemIn the event this information is protected by the Federal Confidentiality of Alcohol and Drug Abuse Patient Records regulations: The Federal rules restrict any use of the information to criminally investigate or prosecute any alcohol or drug abuse patient.[facility] SystemIn the event this information is protected by the Federal Confidentiality of Alcohol and Drug Abuse Patient Records regulations: The Federal rules restrict any use of the information to criminally investigate or prosecute any alcohol or drug abuse patient.[facility] SystemIn the event this information is protected by the Federal Confidentiality of Alcohol and Drug Abuse Patient Records regulations: The Federal rules restrict any use of the information to criminally investigate or prosecute any alcohol or drug abuse patient.[facility] SystemIn the event this information is protected by the Federal Confidentiality of Alcohol and Drug Abuse Patient Records regulations: The Federal rules restrict any use of the information to criminally investigate or prosecute any alcohol or drug abuse patient.[facility] SystemIn the event this information is protected by the Federal Confidentiality of Alcohol and Drug Abuse Patient Records regulations: The Federal rules restrict any use of the information to criminally investigate or prosecute any alcohol or drug abuse patient.[facility] SystemIn the event this information is protected by the Federal Confidentiality of Alcohol and Drug Abuse Patient Records regulations: The Federal rules restrict any use of the information to criminally investigate or prosecute any alcohol or drug abuse patient.[facility] SystemIn the event this information is protected by the Federal Confidentiality of Alcohol and Drug Abuse Patient Records regulations: The Federal rules restrict any use of the information to criminally investigate or prosecute any alcohol or drug abuse patient.[facility] SystemIn the event this information is protected by the Federal Confidentiality of Alcohol and Drug Abuse Patient Records regulations: The Federal rules restrict any use of the information to criminally investigate or prosecute any alcohol or drug abuse patient.[facility] SystemIn the event this information is protected by the Federal Confidentiality of Alcohol and Drug Abuse Patient Records regulations: The Federal rules restrict any use of the information to criminally investigate or prosecute any alcohol or drug abuse patient.[facility] SystemIn the event this information is protected by the Federal Confidentiality of Alcohol and Drug Abuse Patient Records regulations: The Federal rules restrict any use of the information to criminally investigate or prosecute any alcohol or drug abuse patient.[facility] SystemIn the event this information is protected by the Federal Confidentiality of Alcohol and Drug Abuse Patient Records regulations: The Federal rules restrict any use of the information to criminally investigate or prosecute any alcohol or drug abuse patient.[facility] SystemIn the event this information is protected by the Federal Confidentiality of Alcohol and Drug Abuse Patient Records regulations: The Federal rules restrict any use of the information to criminally investigate or prosecute any alcohol or drug abuse patient.[facility] SystemIn the event this information is protected by the Federal Confidentiality of Alcohol and Drug Abuse Patient Records regulations: The Federal rules restrict any use of the information to criminally investigate or prosecute any alcohol or drug abuse patient.[facility] SystemIn the event this information is protected by the Federal Confidentiality of Alcohol and Drug Abuse Patient Records regulations: The Federal rules restrict any use of the information to criminally investigate or prosecute any alcohol or drug abuse patient.[facility] SystemIn the event this information is protected by the Federal Confidentiality of Alcohol and Drug Abuse Patient Records regulations: The Federal rules restrict any use of the information to criminally investigate or prosecute any alcohol or drug abuse patient.[facility] SystemIn the event this information is protected by the Federal Confidentiality of Alcohol and Drug Abuse Patient Records regulations: The Federal rules restrict any use of the information to criminally investigate or prosecute any alcohol or drug abuse patient.[facility] SystemIn the event this information is protected by the Federal Confidentiality of Alcohol and Drug Abuse Patient Records regulations: The Federal rules restrict any use of the information to criminally investigate or prosecute any alcohol or drug abuse patient.[facility] SystemIn the event this information is protected by the Federal Confidentiality of Alcohol and Drug Abuse Patient Records regulations: The Federal rules restrict any use of the information to criminally investigate or prosecute any alcohol or drug abuse patient.[facility] SystemIn the event this information is protected by the Federal Confidentiality of Alcohol and Drug Abuse Patient Records regulations: The Federal rules restrict any use of the information to criminally investigate or prosecute any alcohol or drug abuse patient.[facility] SystemIn the event this information is protected by the Federal Confidentiality of Alcohol and Drug Abuse Patient Records regulations: The Federal rules restrict any use of the information to criminally investigate or prosecute any alcohol or drug abuse patient.[facility] SystemIn the event this information is protected by the Federal Confidentiality of Alcohol and Drug Abuse Patient Records regulations: The Federal rules restrict any use of the information to criminally investigate or prosecute any alcohol or drug abuse patient.[facility] Reason for Visit (unrecogniz ed section and content) Reason Comments Blood Draw (CVAD) Specialty Diagnoses / Procedures Referred By Contac t Referred To Contact Diagnoses Disseminated malignant neoplasm of ovary, unspecified laterality (HCC) Malignant neoplasm of both ovaries (HCC) Peritoneal carcinomatosis (HCC) Procedures TOPOTECAN INJECTION Bk Lenz DO [address] [place] [address] [facility] [address] [place] [address] Referral ID Status Reason Start Date Expiration Date V isits Requested Visits Authorized [id number] Authorized 05/31/2024 10/15/2024 99 99 Reason Comments Radiology US Specialty Diagnoses / Procedures Referred By Contac t Referred To Contact [facility] Diagnoses Breast nodule Procedures US BREAST LTD RIGHT US BREAST UNI REAL TIME WITH IMAGE LIMITED Bk Lenz, [address] [place] [address] [facility] [address] [place] [address] Referral ID Status Reason Start Date Expiration Date V isits Requested Visits Authorized [id number] Closed Auto-Generate d Referral 05/31/2023 06/29/2024 [address] Specialty Diagnoses / Procedures Referred By Contac t Referred To Contact CT IMAGING Diagnoses Malignant neoplasm of both ovaries (HCC) Procedures CT CHEST W IVCON DIAGNOSTIC COMPUTED TOMOGRAPHY THORAX W/CONTRAST Ora Walton, MANAGER OF TRAINING AND DEVELOPMENT.VENDOR MANAGER [address] [place] [address] [place] [id number] Referral ID Status Reason Start Date Expiration Date V isits Requested Visits Authorized [id number] Closed Auto-Generate d Referral 03/22/2023 04/20/2024 1 1 Reason Comments Diarrhea Reason Comments Patient Question Specialty Diagnoses / Procedures Referred By Contac t Referred To Contact [facility] IMAGING Diagnoses Nausea Abdominal pain, unspecified abdominal location Procedures US ABD RT UPPER QUADRANT US ABDOMINAL REAL TIME W/IMAGE LIMITED Colin Sofia MD [address] [place] [address] [facility] Referral ID Status Reason Start Date Expiration Date V isits Requested Visits Authorized [id number] Closed Auto-Generate d Referral 05/30/2022 06/29/2023 1 1 Reason Comments Results Reason Comments Fax MRI order to [facility] Reason Comments External Documents Reason Comments Appointment Reason Comments New Patient Specialty Diagnoses / Procedures Referred By Contac t Referred To Contact Oncology Diagnoses Malignant neoplasm of right ovary (HCC) Procedures CONSULT TO ONCOLOGY OFFICE/OUTPATIENT NEW HIGH MDM 60-74 MINUTES Colin Sofia MD [address] [place] [address] Referral ID Status Reason Start Date Expiration Date V isits Requested Visits Authorized [id number] Closed PCP Requested Referral 01/26/2023 01/26/2024 1 1 Reason Comments Biopsy Request Reason Comments AVS 02/04/23 Reason Comments AVS 02/23/23, CHEMO START Reason Comments Results Tonsil pathology Reason Comments Established Patient Reason Comments First Time Treatment Education [facility]bi/Avastin Reason Comments Benefits Investigation Reason Comments Question Erroneous encounter-disregard Reason Comments New Patient Reason Comments Bi Developer - Other Treatment Plan Reason Onset Date Comments Refill Request 03/30/2023 Reason Comments CVAD Access Reason Comments Results Reason Comments Radiology Pre Procedure Instructions tho racentesis Reason Onset Date Comments Refill Request 05/10/2023 Reason Comments Patient Question Reason Comments Erroneous encounter-disregard Reason Comments Chemotherapy Treatment Specialty Diagnoses / Procedures Referred By [facility] Referred To Contact Diagnoses Malignant neoplasm of both ovaries (HCC) Procedures GEMCITABINE HCL, 200 MG INJ., ZIRABEV, 10 MG PALONOSETRON HCL CARBOPLATIN INJECTION Bk Lenz, DO [address] [place] [address] [facility] [address] [place] [address] Referral ID Status Reason Start Date Expiration Date V isits Requested Visits Authorized [id number] Authorized 05/01/2023 09/18/2023 1 9 Reason Comments Care Coordination Follow Up Note Reason Comments Cancer Reason Comments Established Patient Reason Comments Orders Referral ID Status Reason Start Date Expiration Date V isits Requested Visits Authorized [id number] Authorized 05/01/2023 09/18/2023 10 10 Reason Comments Results Mammogram and ultras ound Reason Comments Bi Developer - Other Reason Comments Established Patient OV,labs,cxr,tx tomor row Reason Comments Port Flush Specialty Diagnoses / Procedures Referred By [facility] Referred To Contact Diagnoses Malignant neoplasm of both ovaries (HCC) Procedures DOXORUBICIN INJ 10 MG INJ., ZIRABEV, 10 MG Bk Lenz, DO [address] [place] [address] [facility] [address] [place] [address] Referral ID Status Reason Start Date Expiration Date V isits Requested Visits Authorized [id number] Authorized 07/13/2023 09/18/2023 5 5 Reason Comments Bi Developer - Other C1D1 Post Treat ment Call (Doxil/Avastin) Reason Comments Dental Problem right upper tooth pa in ongoing -cancer patient Reason Comments Dental Problem Reason Comments Medication Problem Reason Comments Results Chest x-ray Specialty Diagnoses / Procedures Referred By [facility] Referred To Contact CT IMAGING Diagnoses Ovarian cancer, bilateral (HCC) Procedures CT CHEST W IVCON DIAGNOSTIC COMPUTED TOMOGRAPHY THORAX W/CONTRAST Ora Walton, MANAGER OF TRAINING AND DEVELOPMENT.VENDOR MANAGER [address] [place] [address] [facility] [place] [address] Referral ID Status Reason Start Date Expiration Date V isits Requested Visits Authorized [id number] Closed Auto-Generate d Referral 06/20/2023 07/19/2024 1 1 Reason Comments Melanoma Established Patient Referral ID Status Reason Start Date Expiration Date V isits Requested Visits Authorized [id number] Authorized 07/13/2023 10/15/2023 17 17 Reason Comments Scheduling Thoracentesis Reason Comments Opened In Error Reason Comments Care Coordination Change in Treatment Reason Comments Established Patient Reason Comments Nutrition Telephone Initial Reason Comments Established Patient Reason Comments AVS 11/29/23 Specialty Diagnoses / Procedures Referred By [facility] Referred To Contact Diagnoses Malignant neoplasm of both ovaries (HCC) 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, unspecified laterality (HCC) Procedures INJECTION, PEMETREXED, NOT OTHERWISE SPECIFIED, 10 MG Bk Lenz, DO [address] [place] [address] [facility] [address] [place] [address] Referral ID Status Reason Start Date Expiration Date V isits Requested Visits Authorized [id number] Authorized 10/05/2023 10/15/2024 1 99 Reason Comments Bi Developer - Other Chemotherapy Ed ucation (Abraxane) Reason Comments Insurance Authorization Peer to Peer Specialty Diagnoses / Procedures Referred By [facility] Referred To Contact Diagnoses Malignant neoplasm of both ovaries (HCC) 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, unspecified laterality (HCC) Procedures PACLITAXEL PROTEIN BOUND Bk Lenz, DO [address] [place] [address] [facility] [address] [place] [address] Referral ID Status Reason Start Date Expiration Date V isits Requested Visits Authorized [id number] Authorized 12/22/2023 06/21/2024 99 99 Reason Onset Date Comments Refill Request 12/29/2023 Specialty Diagnoses / Procedures [facility] Referred To Contact Diagnoses Axillary adenopathy Disseminated malignant neoplasm of ovary, unspecified laterality (HCC) Procedures BX/EXC LYMPH NODE NEEDLE SUPERFICIAL BIOPSY OR EXCISION LYMPH NODES(S) NEEDLE SUPERFICIAL [facility] [address] [place] [address] Referral ID Status Reason Start Date Expiration Date Visits Re quested Visits Authorized [id number] 1 1 Reason Comments Patient Update Reschedule appt [facility]. 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, unspecified laterality (HCC) J9259- Abraxane Slovenian Reagent Procedures PACLITAXEL PROTEIN BOUND J9259- Abraxane Slovenian Reagent Bk Lenz, DO [address] [place] [address] [facility] [address] [place] [address] Specialty Diagnoses / Procedures [facility] Referred To Contact CT IMAGING Diagnoses Malignant neoplasm of both ovaries (HCC) Peritoneal carcinomatosis (HCC) Procedures CT ABD/PEL W IVCON CT ABD & PELVIS W/CONTRAST Bk Lenz, DO [address] [place] [address] Ct Imaging [id number] Referral ID Status Reason Start Date Expiration Date V isits Requested Visits Authorized [id number] Closed Auto-Generate d Referral 05/09/2024 06/08/2025 1 1 Reason Comments Appointment today Reason Comments Future Appointment Reason Comments Bi Developer - Other Follow-up on sy mptoms Reason Comments Bi Developer - Other Follow-up/discu ss medication changes Reason Comments paracentesis Reason Comments Bi Developer - Other Oral Anti-Cance r Agents Education Reason Onset Date Comments SPP Oral Oncology/hematology - Treatment Referra l 07/08/2024 Etoposide Insurance Authorization 07/08/2024 No PA Re quired SPP Oral Oncology/hematology - Initiation Of The rapy 07/08/2024 Reason Comments Radiology [place] Specialty Diagnoses / Procedures Referred By Blu t Referred To Contact MOLECULAR & FUNCTIONAL IMAGING Diagnoses Malignant neoplasm of ovary, unspecified laterality (HCC) Nodule of upper lobe of left lung Liver lesion, left lobe Secondary malignancy of iliac lymph nodes (HCC) Procedures NM PET/CT WHOLE BODY SUBSEQUENT PET IMAGING FOR CT ATTENUATION WHOLE BODY Colin Sofia MD [address] [place] [address] Molecular & Functional Imaging [address] [place] [address] Referral ID Status Reason Start Date Expiration Date V isits Requested Visits Authorized [id number] Closed Auto-Generate d Referral 01/25/2023 03/11/2023 2 2 Reason Comments Ovarian Cancer Reason Comments Results, Lab Reason Comments Bi Developer - Other Oral Anti-Cance r Agents Follow-up (etoposide) Reason Comments Refill Request Reason Onset Date Comments SPP Oral Oncology/hematology - Medication Refill 08/01/2024 Etoposide 50mg Reason Comments Bi Developer - Other Hospital Discha rge Care Teams (unrecognized sec tion and content) Food Products Tester Relationship Specialty Start Date End Date Colin Sofia MD [address] [place] [address] PCP - General Family Practice 01/25/11 Food Products Tester Relationship Specialty Start Date End Date Colin Sofia MD [address] [place] [address] PCP - General Family Practice 01/25/11 Food Products Tester Relationship Specialty Start Date End Date Colin Sofia MD [address] [place] [address] PCP - General Family Practice 01/25/11 Food Products Tester Relationship Specialty Start Date End Date Colin Sofia MD [address] [place] [address] PCP - General Family Practice 01/25/11 Food Products Tester Relationship Specialty Start Date End Date Colin Sofia MD [address] [place] [address] PCP - General Family Practice 01/25/11 Food Products Tester Relationship Specialty Start Date End Date Colin Sofia MD [address] [place] [address] PCP - General Family Practice 01/25/11 Food Products Tester Relationship Specialty Start Date End Date Colin Sofia MD [address] [place] [address] PCP - General Family Practice 01/25/11 Food Products Tester Relationship Specialty Start Date End Date Colin Sofia [address] [place] [address] PCP - General Sports Medicine 06/23/22 Food Products Tester Relationship Specialty Start Date End Date Kimberlyn Colin [address] [place] [address] PCP - General Sports Medicine 06/23/22 Food Products Tester Relationship Specialty Start Date End Date Colin Sofia [address] [place] [address] PCP - General Sports Medicine 06/23/22 Food Products Tester Relationship Specialty Start Date End Date Colin Sofia [address] [place] [address] PCP - General Sports Medicine 06/23/22 Food Products Tester Relationship Specialty Start Date End Date Colin Sofia MD [address] [place] [address] PCP - General Family Medicine 01/25/11 Food Products Tester Relationship Specialty Start Date End Date Colin Sofia MD [address] [place] [address] PCP - General Family Medicine 01/25/11 Food Products Tester Relationship Specialty Start Date End Date Colin Sofia MD [address] [place] [address] PCP - General Family Medicine 01/25/11 Food Products Tester Relationship Specialty Start Date End Date Colin Sofia MD [address] [place] [address] PCP - General Family Medicine 01/25/11 Food Products Tester Relationship Specialty Start Date End Date Colin Sofia MD [address] [place] [address] PCP - General Family Medicine 01/25/11 Food Products Tester Relationship Specialty Start Date End Date Colin Sofia MD [address] [place] [address] PCP - General Family Medicine 01/25/11 Syed Marquez [address] [place] [address] Ent - Otolaryngology 02/24/23 Madi Parker MD [address] [address] Pulmonary Disease 02/24/23 Chloe Zambrano, SHELLY Specialty Bi Developer Oncology 02/24/23 Food Products Tester Relationship Specialty Start Date End Date Colin Sofia MD [address] [place] [address] PCP - General Family Medicine 01/25/11 Food Products Tester Relationship Specialty Start Date End Date Colin Sofia [address] [place], [place] [address] PCP - General 06/23/22 Beckie Tsai MD Consulting Physician Gynecologic Oncology 08/10/22 Mohinder Adamson, MANAGER OF TRAINING AND DEVELOPMENT - VENDOR MANAGER [address] [facility] [address] [place] [address] Nurse Practitioner Certified Nurse Practitioner 08/15/22 Addy Hyatt MD [address] [facility], [address] [place] [address] Consulting Physician Gynecologic Oncology 08/18/22 Christina Engel, SHELLY Nurse Navigator Gynecologic Oncology 08/23/22 Sherlyn Davis, MANAGER OF TRAINING AND DEVELOPMENT - VENDOR MANAGER [address] [facility] [address] [place] [address] Nurse Practitioner Nurse Practitioner 08/30/22 Myron Puckett MD [address] [facility] [place] [address] Consulting Physician Gynecologic Oncology 10/14/22 Food Products Tester Relationship Specialty Start Date End Date Colin Sofia MD [address] [place], [place] [address] PCP - General Family Medicine 01/25/11 Syed Marquez [address] [place] [address] Ent - Otolaryngology 02/24/23 Madi Parker MD [address] 692451 Pulmonary Disease 02/24/23 Doup, Chloe, RN Specialty Bi Developer Oncology 02/24/23 Food Products Tester Relationship Specialty Start Date End Date Colin Sofia MD [address] [facility] [address] PCP - General Family Medicine 01/25/11 Syed Marquez [address] [facility] [address] Ent - Otolaryngology 02/24/23 Madi Parker MD [address] [place] [address] Pulmonary Disease 02/24/23 Chloe Zambrano RN Specialty Bi Developer Oncology 02/24/23 Food Products Tester Relationship Specialty Start Date End Date Colin Sofia MD [address] [facility] [address] PCP - General Family Medicine 01/25/11 Syed Marquez [address] [facility] [address] Ent - Otolaryngology 02/24/23 Madi Parker MD [address] [place] [address] Pulmonary Disease 02/24/23 Chloe Zambrano RN Specialty Bi Developer Oncology 02/24/23 Food Products Tester Relationship Specialty Start Date End Date Colin Sofia MD [address] [facility] [address] PCP - General Family Medicine 01/25/11 Syed Marquez [address] [facility] [address] Ent - Otolaryngology 02/24/23 Madi Parker MD [address] [place] [address] Pulmonary Disease 02/24/23 Chloe Zambrano RN Specialty Bi Developer Oncology 02/24/23 Food Products Tester Relationship Specialty Start Date End Date Colin Sofia MD [address] [facility] [address] PCP - General Family Medicine 01/25/11 Syed Marquez [address] [place] [address] Ent - Otolaryngology 02/24/23 Madi Parker MD [address] [place] [address] Pulmonary Disease 02/24/23 Chloe Zambrano RN Specialty Bi Developer Oncology 02/24/23 Food Products Tester Relationship Specialty Start Date End Date Colin Sofia MD [address] [facility] [address] PCP - General Family Medicine 01/25/11 Syed Marquez [address] [facility] [address] Ent - Otolaryngology 02/24/23 Madi Parker MD [address] [address] Pulmonary Disease 02/24/23 Chloe Zambrano RN Specialty Bi Developer Oncology 02/24/23 Food Products Tester Relationship Specialty Start Date End Date Colin Sofia MD [address] [facility] [address] PCP - General Family Medicine 01/25/11 Syed Marquez [address] [place] [address] Ent - Otolaryngology 02/24/23 Madi Parker MD [address] [address] Pulmonary Disease 02/24/23 Chloe Zambrano RN Specialty Bi Developer Oncology 02/24/23 Food Products Tester Relationship Specialty Start Date End Date Colin Sofia MD [address] [place] [address] PCP - General Family Medicine 01/25/11 Syed Marquez [address] [place] [address] Ent - Otolaryngology 02/24/23 Madi Parker MD [address] [address] Pulmonary Disease 02/24/23 Chloe Zambrano RN Specialty Bi Developer Oncology 02/24/23 Food Products Tester Relationship Specialty Start Date End Date Colin Sofia MD [address] [place] [address] PCP - General Family Medicine 01/25/11 Syed Marquez [address] [place] [address] Ent - Otolaryngology 02/24/23 Madi Parker MD [address] [address] Pulmonary Disease 02/24/23 Chloe Zambrano RN Specialty Bi Developer Oncology 02/24/23 Food Products Tester Relationship Specialty Start Date End Date Colin Sofia MD [address] [place] [address] PCP - General Family Medicine 01/25/11 Syed Marquez [address] [place] [address] Ent - Otolaryngology 02/24/23 Madi Parker MD [address] [address] Pulmonary Disease 02/24/23 Chloe Zambrano RN Specialty Bi Developer Oncology 02/24/23 Food Products Tester Relationship Specialty Start Date End Date Colin Sofia MD [address] [place] [address] PCP - General Family Medicine 01/25/11 Syed Marquez [address] [place] [address] Ent - Otolaryngology 02/24/23 Madi Parker MD [address] [address] Pulmonary Disease 02/24/23 Chloe Zambrano RN Specialty Bi Developer Oncology 02/24/23 Food Products Tester Relationship Specialty Start Date End Date Colin Sofia MD [address] [place] [address] PCP - General Family Medicine 01/25/11 Syed Marquez [address] [place] [address] Ent - Otolaryngology 02/24/23 Madi Parker MD [address] 671641 Pulmonary Disease 02/24/23 Chloe Zambrano RN Specialty Bi Developer Oncology 02/24/23 Food Products Tester Relationship Specialty Start Date End Date Colin Sofia MD [address] [place] [address] PCP - General Family Medicine 01/25/11 Syed Marquez [address] [place] [address] Ent - Otolaryngology 02/24/23 Madi Praker MD [address] 316711 Pulmonary Disease 02/24/23 Chloe Zambrano RN Specialty Bi Developer Oncology 02/24/23 Food Products Tester Relationship Specialty Start Date End Date Colin Sofia MD [address] [place] [address] PCP - General Family Medicine 01/25/11 Syed Marquez [address] [place], [place] [address] Ent - Otolaryngology 02/24/23 Madi Parker MD [address] 932361 Pulmonary Disease 02/24/23 Chloe Zambrano RN Specialty Bi Developer Oncology 02/24/23 Food Products Tester Relationship Specialty Start Date End Date Colin Sofia MD [address] [place] [address] PCP - General Family Medicine 01/25/11 Syed Marquez [address] [place] [address] Ent - Otolaryngology 02/24/23 Madi Parker MD [address] 257361 Pulmonary Disease 02/24/23 Chloe Zambrano RN Specialty Bi Developer Oncology 02/24/23 Oriana Gooden RN Primary Care Rn Social Services 05/09/23 05/10/23 Food Products Tester Relationship Specialty Start Date End Date Colin Sofia MD [address] [place] [address] PCP - General Family Medicine 01/25/11 Syed Marquez [address] [place] [address] Ent - Otolaryngology 02/24/23 Madi Parker MD [address] [address] Pulmonary Disease 02/24/23 Chloe Zambrano RN Specialty Bi Developer Oncology 02/24/23 Oriana Gooden RN Primary Care Rn Social Services 05/09/23 05/10/23 Food Products Tester Relationship Specialty Start Date End Date Colin Sofia MD [address] [place] [address] PCP - General Family Medicine 01/25/11 Syed Marquez [address] [place] [address] Ent - Otolaryngology 02/24/23 Madi Parker MD [address] [address] Pulmonary Disease 02/24/23 Chloe Zambrano RN Specialty Bi Developer Oncology 02/24/23 Oriana Gooden RN Primary Care Rn Social Services 05/09/23 05/10/23 Food Products Tester Relationship Specialty Start Date End Date Colin Sofia MD [address] [place] [address] PCP - General Family Medicine 01/25/11 Syed Marquez [address] [place] [address] Ent - Otolaryngology 02/24/23 Madi Parker MD [address] 904031 Pulmonary Disease 02/24/23 Chloe Zambrano RN Specialty Bi Developer Oncology 02/24/23 Food Products Tester Relationship Specialty Start Date End Date Colin Sofia MD [address] [place] [address] PCP - General Family Medicine 01/25/11 Syed Marquez [address] [place] [address] Ent - Otolaryngology 02/24/23 Madi Parker MD [address] [address] Pulmonary Disease 02/24/23 Chloe Zambrano RN Specialty Bi Developer Oncology 02/24/23 Food Products Tester Relationship Specialty Start Date End Date Colin Sofia MD [address] [place] [address] PCP - General Family Medicine 01/25/11 Syed Marquez [address] [place] [address] Ent - Otolaryngology 02/24/23 Madi Parker MD [address] 088891 Pulmonary Disease 02/24/23 Chloe Zambrano RN Specialty Bi Developer Oncology 02/24/23 Food Products Tester Relationship Specialty Start Date End Date Colin Sofia MD [address] [place] [address] PCP - General Family Medicine 01/25/11 Syed Marquez [address] [place] [address] Ent - Otolaryngology 02/24/23 Madi Parker MD [address] [address] Pulmonary Disease 02/24/23 Chloe Zambrano RN Specialty Bi Developer Oncology 02/24/23 Food Products Tester Relationship Specialty Start Date End Date Colin Sofia MD [address] [facility] [address] PCP - General Family Medicine 01/25/11 Syed Marquez [address] [facility] [address] Ent - Otolaryngology 02/24/23 Madi Parker MD [address] [address] Pulmonary Disease 02/24/23 Chloe Zambrano RN Specialty Bi Developer Oncology 02/24/23 Food Products Tester Relationship Specialty Start Date End Date Colin Sofia MD [address] [facility] [address] PCP - General Family Medicine 01/25/11 Syed Marquez [address] [facility] [address] Ent - Otolaryngology 02/24/23 Madi Parker MD [address] 975811 Pulmonary Disease 02/24/23 Chloe Zambrano RN Specialty Bi Developer Oncology 02/24/23 Food Products Tester Relationship Specialty Start Date End Date Colin Sofia MD [address] [facility] [address] PCP - General Family Medicine 01/25/11 Syed Marquez [address] [facility] [address] Ent - Otolaryngology 02/24/23 Madi Parker MD [address] [address] Pulmonary Disease 02/24/23 Chloe Zambrano RN Specialty Bi Developer Oncology 02/24/23 Food Products Tester Relationship Specialty Start Date End Date Colin Sofia MD [address] [place] [address] PCP - General Family Medicine 01/25/11 Syed Marquez [address] [place] [address] Ent - Otolaryngology 02/24/23 Madi Parker MD [address] [address] Pulmonary Disease 02/24/23 Chloe Zambrano RN Specialty Bi Developer Oncology 02/24/23 Food Products Tester Relationship Specialty Start Date End Date Colin Sofia MD [address] [place] [address] PCP - General Family Medicine 01/25/11 Syed Marquez [address] [place] [address] Ent - Otolaryngology 02/24/23 Madi Parker MD [address] [address] Pulmonary Disease 02/24/23 Chloe Zambrano RN Specialty Bi Developer Oncology 02/24/23 Food Products Tester Relationship Specialty Start Date End Date Colin Sofia MD [address] [place] [address] PCP - General Family Medicine 01/25/11 Syed Marquez [address] [place] [address] Ent - Otolaryngology 02/24/23 Madi Parker MD [address] [address] Pulmonary Disease 02/24/23 Chloe Zambrano RN Specialty Bi Developer Oncology 02/24/23 Food Products Tester Relationship Specialty Start Date End Date Colin Sofia MD [address] [place] [address] PCP - General Family Medicine 01/25/11 Syed Marquez [address] [place] [address] Ent - Otolaryngology 02/24/23 Madi Parker MD [address] [address] Pulmonary Disease 02/24/23 Chloe Zambrano RN Specialty Bi Developer Oncology 02/24/23 Food Products Tester Relationship Specialty Start Date End Date Colin Sofia MD [address] [place] [address] PCP - General Family Medicine 01/25/11 Syed Marquez [address] [place] [address] Ent - Otolaryngology 02/24/23 Madi Parker MD [address] 5568[address] Pulmonary Disease 02/24/23 Chloe Zambrano RN Specialty Bi Developer Oncology 02/24/23 Food Products Tester Relationship Specialty Start Date End Date Colin Sofia MD [address] [place] [address] PCP - General Family Medicine 01/25/11 Syed Marquez [address] [place] [address] Ent - Otolaryngology 02/24/23 Madi Parker MD [address] [address] Pulmonary Disease 02/24/23 Chloe Zambrano RN Specialty Bi Developer Oncology 02/24/23 Food Products Tester Relationship Specialty Start Date End Date Colin Sofia MD [address] [place] [address] PCP - General Family Medicine 01/25/11 Syed Marquez [address] [place] [address] Ent - Otolaryngology 02/24/23 Madi Parker MD [address] [address] Pulmonary Disease 02/24/23 Chloe Zambrano RN Specialty Bi Developer Oncology 02/24/23 Food Products Tester Relationship Specialty Start Date End Date Colin Sofia MD [address] [place] [address] PCP - General Family Medicine 01/25/11 Syed Marquez [address] [place] [address] Ent - Otolaryngology 02/24/23 Madi Parker MD [address] [address] Pulmonary Disease 02/24/23 Chloe Zambrano RN Specialty Bi Developer Oncology 02/24/23 Food Products Tester Relationship Specialty Start Date End Date Colin Sofia MD [address] [place] [address] PCP - General Family Medicine 01/25/11 Syed Marquez [address] [place], [place] [address] Ent - Otolaryngology 02/24/23 Madi Parker MD [address] 355[address] Pulmonary Disease 02/24/23 Chloe Zambrano RN Specialty Bi Developer Oncology 02/24/23 Food Products Tester Relationship Specialty Start Date End Date Colin Sofia MD [address] [place] [address] PCP - General Family Medicine 01/25/11 Syed Marquez [address] [place] [address] Ent - Otolaryngology 02/24/23 Madi Parker MD [address] 850741 Pulmonary Disease 02/24/23 Chloe Zambrano RN Specialty Bi Developer Oncology 02/24/23 Bk Lenz DO [address] [place] [address] Hematology/Oncology 07/14/23 Food Products Tester Relationship Specialty Start Date End Date Colin Sofia MD [address] [place] [address] PCP - General Family Medicine 01/25/11 Syed Marquez [address] [place] [address] Ent - Otolaryngology 02/24/23 Madi Parker MD [address] [address] Pulmonary Disease 02/24/23 Chloe Zambrano RN Specialty Bi Developer Oncology 02/24/23 Bk Lenz DO [address] [place] [address] Hematology/Oncology 07/14/23 Food Products Tester Relationship Specialty Start Date End Date Colin Sofia MD [address] [place] [address] PCP - General Family Medicine 01/25/11 Syed Marquez [address] [place] [address] Ent - Otolaryngology 02/24/23 Madi Parker MD [address] [address] Pulmonary Disease 02/24/23 Chloe Zambrano RN Specialty Bi Developer Oncology 02/24/23 Bk Lenz DO [address] [place] [address] Hematology/Oncology 07/14/23 Food Products Tester Relationship Specialty Start Date End Date Colin Sofia MD [address] [place] [address] PCP - General Family Medicine 01/25/11 Syed Marquez [address] [place] [address] Ent - Otolaryngology 02/24/23 Madi Parker MD [address] [address] Pulmonary Disease 02/24/23 Chloe Zambrano RN Specialty Bi Developer Oncology 02/24/23 Bk Lenz DO [address] [place] [address] Hematology/Oncology 07/14/23 Food Products Tester Relationship Specialty Start Date End Date Colin Sofia MD [address] [place] [address] PCP - General Family Medicine 01/25/11 Syed Marquez [address] [place] [address] Ent - Otolaryngology 02/24/23 Madi Parker MD [address] [address] Pulmonary Disease 02/24/23 Chloe Zambrano RN Specialty Bi Developer Oncology 02/24/23 Bk Lenz DO [address] [place] [address] Hematology/Oncology 07/14/23 Food Products Tester Relationship Specialty Start Date End Date Colin Sofia MD [address] [place] [address] PCP - General Family Medicine 01/25/11 Syed Marquez [address] [place] [address] Ent - Otolaryngology 02/24/23 Madi Parker MD [address] 2870[address] Pulmonary Disease 02/24/23 Chloe Zambrano RN Specialty Bi Developer Oncology 02/24/23 Bk Lenz DO [address] [place] [address] Hematology/Oncology 07/14/23 Food Products Tester Relationship Specialty Start Date End Date Colin Sofia MD [address] [place] [address] PCP - General Family Medicine 01/25/11 Syed Marquez [address] [place] [address] Ent - Otolaryngology 02/24/23 Madi Parker MD [address] [address] Pulmonary Disease 02/24/23 Chloe Zambrano RN Specialty Bi Developer Oncology 02/24/23 Bk Lenz DO [address] [place] [address] Hematology/Oncology 07/14/23 Food Products Tester Relationship Specialty Start Date End Date Colin Sofia MD [address] [place] [address] PCP - General Family Medicine 01/25/11 Syed Marquez [address] [place] [address] Ent - Otolaryngology 02/24/23 Madi Parker MD [address] [address] Pulmonary Disease 02/24/23 Chloe Zambrano RN Specialty Bi Developer Oncology 02/24/23 Bk Lenz DO [address] [place], [place] [phone]- Hematology/Oncology 07/14/23 Food Products Tester Relationship Specialty Start Date End Date Colin Sofia MD [address] [place] [address] PCP - General Family Medicine 01/25/11 Syed Marquez [address] [place] [address] Ent - Otolaryngology 02/24/23 Madi Parker MD [address] [address] Pulmonary Disease 02/24/23 Chloe Zambrano RN Specialty Bi Developer Oncology 02/24/23 Food Products Tester Relationship Specialty Start Date End Date Colin Sofia MD [address] [place] [address] PCP - General Family Medicine 01/25/11 Syed Marquez [address] [place] [address] Ent - Otolaryngology 02/24/23 Madi Parker MD [address] [address] Pulmonary Disease 02/24/23 Chloe Zambrano RN Specialty Bi Developer Oncology 02/24/23 Food Products Tester Relationship Specialty Start Date End Date Colin Sofia MD [address] [place] [address] PCP - General Family Medicine 01/25/11 Syed Marquez [address] [place] [address] Ent - Otolaryngology 02/24/23 Madi Parekr MD [address] [address] Pulmonary Disease 02/24/23 Chloe Zambrano RN Specialty Bi Developer Oncology 02/24/23 Food Products Tester Relationship Specialty Start Date End Date Colin Sofia MD [address] [place] [address] PCP - General Family Medicine 01/25/11 Syed Marquez [address] [place] [address] Ent - Otolaryngology 02/24/23 Madi Parker MD [address] [address] Pulmonary Disease 02/24/23 Chloe Zambrano RN Specialty Bi Developer Oncology 02/24/23 Food Products Tester Relationship Specialty Start Date End Date Colin Sofia MD [address] [place] [address] PCP - General Family Medicine 01/25/11 Syed Marquez [address] [place] [address] Ent - Otolaryngology 02/24/23 Madi Parker MD [address] [address] Pulmonary Disease 02/24/23 Chloe Zambrano RN Specialty Bi Developer Oncology 02/24/23 Food Products Tester Relationship Specialty Start Date End Date Colin Sofia MD [address] [place] [address] PCP - General Family Medicine 01/25/11 Syed Marquez [address] [place] [address] Ent - Otolaryngology 02/24/23 Madi Parker MD [address] [id number] Pulmonary Disease 02/24/23 Chloe Zambrano RN Specialty Bi Developer Oncology 02/24/23 Food Products Tester Relationship Specialty Start Date End Date Colin Sofia MD [address] [place] [address] PCP - General Family Medicine 01/25/11 Syed Marquez [address] [place], [place] 345071 Ent - Otolaryngology 02/24/23 Madi Parker MD [address] 028201 Pulmonary Disease 02/24/23 Chloe Zambrano RN Specialty Bi Developer Oncology 02/24/23 Bk Lenz DO [address] [place] [address] Hematology/Oncology 07/14/23 Food Products Tester Relationship Specialty Start Date End Date Colin Sofia MD [address] [place] [address] PCP - General Family Medicine 01/25/11 Syed Marquez [address] [place] [address] Ent - Otolaryngology 02/24/23 Madi Parker MD [address] 594651 Pulmonary Disease 02/24/23 Chloe Zambrano RN Specialty Bi Developer Oncology 02/24/23 Bk Lenz DO [address] [place], [place] [address] Hematology/Oncology 07/14/23 Food Products Tester Relationship Specialty Start Date End Date Colin Sofia MD [address] [place], [place] [address]161 PCP - General Family Medicine 01/25/11 Syed Marquez [address] [place] [address] Ent - Otolaryngology 02/24/23 Madi Parker MD [address] [phone] Pulmonary Disease 02/24/23 Chloe Zambrano RN Specialty Bi Developer Oncology 02/24/23 Oriana Gooden, sales engineer account manager Rn Social Services 05/09/23 05/09/23 Oriana Gooden, sales engineer account manager Rn Social Services 05/09/23 05/10/23 Bk Lenz DO [address] [place] [address] Hematology/Oncology 07/14/23 Food Products Tester Relationship Specialty Start Date End Date Colin Sofia MD [address] [place] [address] PCP - General Family Medicine 01/25/11 Syed Marquez [address] [place], [place] 753221 Ent - Otolaryngology 02/24/23 Madi Parker MD [address] [id number] Pulmonary Disease 02/24/23 Chloe Zambrano RN Specialty Bi Developer Oncology 02/24/23 Bk Lenz DO [address] [place] [address] Hematology/Oncology 07/14/23 Food Products Tester Relationship Specialty Start Date End Date Colin Sofia MD [address] [place], [place] 0[address]011 PCP - General Family Medicine 01/25/11 Syed Marquez [address] [place], [place] 395531 Ent - Otolaryngology 02/24/23 Madi Parker MD [address] 624231 Pulmonary Disease 02/24/23 Chloe Zambrano RN Specialty Bi Developer Oncology 02/24/23 Bk Lenz DO [address] [facility] [place] [place] [address] Hematology/Oncology 07/14/23 Food Products Tester Relationship Specialty Start Date End Date Colin Sofia MD [address] [place] [address] PCP - General Family Medicine 01/25/11 Syed Marquez [address] [place] [address] Ent - Otolaryngology 02/24/23 Madi Parker MD [address] [phone] Pulmonary Disease 02/24/23 Chloe Zambrano RN Specialty Bi Developer Oncology 02/24/23 Bk Lenz DO [address] [facility] [place] [address] Hematology/Oncology 07/14/23 Food Products Tester Relationship Specialty Start Date End Date Colin Sofia MD [address] [place] [address] PCP - General Family Medicine 01/25/11 Syed Marquez [address] [place] [address] Ent - Otolaryngology 02/24/23 Madi Parker MD [address] [address] Pulmonary Disease 02/24/23 Chloe Zambrano RN Specialty Bi Developer Oncology 02/24/23 Bk Lenz DO [address] [place] [address] Hematology/Oncology 07/14/23 Food Products Tester Relationship Specialty Start Date End Date Colin Sofia MD [address] [place] [address] PCP - General Family Medicine 01/25/11 Syed Marquez [address] [place] [address] Ent - Otolaryngology 02/24/23 Madi Parker MD [address] [address] Pulmonary Disease 02/24/23 Chloe Zambrano RN Specialty Bi Developer Oncology 02/24/23 Bk Lenz DO [address] [place] [address] Hematology/Oncology 07/14/23 Food Products Tester Relationship Specialty Start Date End Date Colin Sofia MD [address] [place] [address] PCP - General Family Medicine 01/25/11 Syed Marquez [address] [place] [address] Ent - Otolaryngology 02/24/23 Madi Parker MD [address] [address] Pulmonary Disease 02/24/23 Chloe Zambrano RN Specialty Bi Developer Oncology 02/24/23 Bk Lenz DO [address] [place] [address] Hematology/Oncology 07/14/23 Food Products Tester Relationship Specialty Start Date End Date Colin Sofia MD [address] [place] [address] PCP - General Family Medicine 01/25/11 Syed Marquez [address] [place] [address] Ent - Otolaryngology 02/24/23 Madi Parker MD [address] [address] Pulmonary Disease 02/24/23 Chloe Zambrano RN Specialty Bi Developer Oncology 02/24/23 Bk Lenz DO [address] [place] [address] Hematology/Oncology 07/14/23 Food Products Tester Relationship Specialty Start Date End Date Colin Sofia MD [address] [place] [address] PCP - General Family Medicine 01/25/11 Syed Marquez [address] [place] [address] Ent - Otolaryngology 02/24/23 Madi Parker MD [address] [address] Pulmonary Disease 02/24/23 Chloe Zambrano RN Specialty Bi Developer Oncology 02/24/23 Bk Lenz DO [address] [facility] [place] [address] Hematology/Oncology 07/14/23 Food Products Tester Relationship Specialty Start Date End Date Colin Sofia MD [address] [place] [address] PCP - General Family Medicine 01/25/11 Syed Marquez [address] [place] [address] Ent - Otolaryngology 02/24/23 Madi Parker MD [address] [address] Pulmonary Disease 02/24/23 Chloe Zambrano RN Specialty Bi Developer Oncology 02/24/23 Bk Lenz DO [address] [facility] [place] [address] Hematology/Oncology 07/14/23 Food Products Tester Relationship Specialty Start Date End Date Colin Sofia MD [address] [place] [address] PCP - General Family Medicine 01/25/11 Syed Marquez [address] [facility] [address] Ent - Otolaryngology 02/24/23 Madi Parker MD [address] [address] Pulmonary Disease 02/24/23 Chloe Zambrano RN Specialty Bi Developer Oncology 02/24/23 Bk Lenz DO [address] [place] [place] [address] Hematology/Oncology 07/14/23 Food Products Tester Relationship Specialty Start Date End Date Colin Sofia MD [address] [place] [address] PCP - General Family Medicine 01/25/11 Syed Marquez [address] [place] [address] Ent - Otolaryngology 02/24/23 Madi Parker MD [address] [address] Pulmonary Disease 02/24/23 Chloe Zambrano RN Specialty Bi Developer Oncology 02/24/23 Bk Lenz DO [address] [place] [address] Hematology/Oncology 07/14/23 Food Products Tester Relationship Specialty Start Date End Date Colin Sofia MD [address] [place] [address] PCP - General Family Medicine 01/25/11 Syed Marquez [address] [place] [address] Ent - Otolaryngology 02/24/23 Madi Parker MD [address] [address] Pulmonary Disease 02/24/23 Chloe Zambrano RN Specialty Bi Developer Oncology 02/24/23 Bk Lenz DO [address] [place] [address] Hematology/Oncology 07/14/23 Food Products Tester Relationship Specialty Start Date End Date Colin Sofia MD [address] [place] [address] PCP - General Family Medicine 01/25/11 Syed Marquez [address] [place] [address] Ent - Otolaryngology 02/24/23 Madi Parker MD [address] [address] Pulmonary Disease 02/24/23 Chloe Zambrano RN Specialty Bi Developer Oncology 02/24/23 Bk Lenz DO [address] [place] [address] Hematology/Oncology 07/14/23 Food Products Tester Relationship Specialty Start Date End Date Colin Sofia MD [address] [place], [place] 203992 [phone] PCP - General Family Medicine 01/25/11 Syed Marquez [address] [place] [address] Ent - Otolaryngology 02/24/23 Madi Parker MD [address] [address] Pulmonary Disease 02/24/23 Chloe Zambrano, RN Specialty Bi Developer Oncology 02/24/23 Oriana Gooden, sales engineer account manager Rn Social Services 05/09/23 05/09/23 Oriana Gooden, sales engineer account manager Rn Social Services 05/09/23 05/10/23 Bk Lenz DO [address] [place] [address] Hematology/Oncology 07/14/23 Food Products Tester Relationship Specialty Start Date End Date Colin Sofia MD [address] [place] [address] PCP - General Family Medicine 01/25/11 Syed Marquez [address] [place] [address] Ent - Otolaryngology 02/24/23 Madi Parker MD [address] [address] Pulmonary Disease 02/24/23 Chloe Zambrano, SHELLY Specialty Bi Developer Oncology 02/24/23 Bk Lenz DO [address] [place] [address] Hematology/Oncology 07/14/23 Food Products Tester Relationship Specialty Start Date End Date Colin Sofia MD [address] [place] [address] PCP - General Family Medicine 01/25/11 Syed Marquez [address] [place] [address] Ent - Otolaryngology 02/24/23 Madi Parker MD [address] [address] Pulmonary Disease 02/24/23 Chloe Zambrano RN Specialty Bi Developer Oncology 02/24/23 Bk Lenz DO [address] [place] [address] Hematology/Oncology 07/14/23 Food Products Tester Relationship Specialty Start Date End Date Colin Sofia MD [address] [place] [address] PCP - General Family Medicine 01/25/11 Syed Marquez [address] [place] [address] Ent - Otolaryngology 02/24/23 Madi Parker MD [address] [address] Pulmonary Disease 02/24/23 Chloe Zambrano RN Specialty Bi Developer Oncology 02/24/23 Bk Lenz DO [address] [place] [address] Hematology/Oncology 07/14/23 Food Products Tester Relationship Specialty Start Date End Date Colin Sofia MD [address] [place] [address] PCP - General Family Medicine 01/25/11 Syed Marquez [address] [place] [address] Ent - Otolaryngology 02/24/23 Madi Parker MD [address] [address] Pulmonary Disease 02/24/23 Chloe Zambrano RN Specialty Bi Developer Oncology 02/24/23 Bk Lenz DO [address] [place] [address] Hematology/Oncology 07/14/23 Food Products Tester Relationship Specialty Start Date End Date Colin Sofia MD [address] [place] [address] PCP - General Family Medicine 01/25/11 Syed Marquez [address] [place] [address] Ent - Otolaryngology 02/24/23 Madi Parker MD [address] [address] Pulmonary Disease 02/24/23 Chloe Zambrano RN Specialty Bi Developer Oncology 02/24/23 Bk Lenz DO [address] [place] [address] Hematology/Oncology 07/14/23 Food Products Tester Relationship Specialty Start Date End Date Colin Sofia MD [address] [place] [address] PCP - General Family Medicine 01/25/11 Syed Marquez [address] [place] [address] Ent - Otolaryngology 02/24/23 Madi Parker MD [address] [address] Pulmonary Disease 02/24/23 Chloe Zambrano RN Specialty Bi Developer Oncology 02/24/23 Bk Lenz DO [address] [place] [address] Hematology/Oncology 07/14/23 Food Products Tester Relationship Specialty Start Date End Date Colin Sofia MD [address] [place] [address] PCP - General Family Medicine 01/25/11 Syed Marquez [address] [place] [address] Ent - Otolaryngology 02/24/23 Madi Parker MD [address] [address] Pulmonary Disease 02/24/23 Chloe Zambrano RN Specialty Bi Developer Oncology 02/24/23 Bk Lenz DO [address] [place] [address] Hematology/Oncology 07/14/23 Food Products Tester Relationship Specialty Start Date End Date Colin Sofia MD [address] [place] [address] PCP - General Family Medicine 01/25/11 Syed Marquez [address] [place] [address] Ent - Otolaryngology 02/24/23 Madi Parker MD [address] [address] Pulmonary Disease 02/24/23 Chloe Zambrano RN Specialty Bi Developer Oncology 02/24/23 Bk Lenz DO [address] [place] [address] Hematology/Oncology 07/14/23 Food Products Tester Relationship Specialty Start Date End Date Colin Sofia MD [address] [place] [address] PCP - General Family Medicine 01/25/11 Syed Marquez [address] [place] [address] Ent - Otolaryngology 02/24/23 Madi Parker MD [address] [address] Pulmonary Disease 02/24/23 Chloe Zambrano RN Specialty Bi Developer Oncology 02/24/23 Bk Lenz DO [address] [facility] [place] [place] [address] Hematology/Oncology 07/14/23 Food Products Tester Relationship Specialty Start Date End Date Colin oSfia MD [address] [place] [address] PCP - General Family Medicine 01/25/11 Syed Marquez [address] [place] [address] Ent - Otolaryngology 02/24/23 Madi Parker MD [address] 475871 Pulmonary Disease 02/24/23 Chloe Zambrano RN Specialty Bi Developer Oncology 02/24/23 Bk Lenz DO [address] [facility] [place], [place] [address] [phone] Hematology/Oncology 07/14/23 Food Products Tester Relationship Specialty Start Date End Date Colin Sofia MD [address] [place], [place] 720467 [phone] PCP - General Family Medicine 01/25/11 Syed Marquez [address] [place] [address] Ent - Otolaryngology 02/24/23 Madi Parker MD [address] [address] Pulmonary Disease 02/24/23 Chloe Zambrano RN Specialty Bi Developer Oncology 02/24/23 Bk Lenz DO [address] [place] [address] Hematology/Oncology 07/14/23 Food Products Tester Relationship Specialty Start Date End Date Colin Sofia MD [address] [place] [address] PCP - General Family Medicine 01/25/11 Syed Marquez [address] [place] [address] Ent - Otolaryngology 02/24/23 Madi Parker MD [address] [address] Pulmonary Disease 02/24/23 Chloe Zambrano RN Specialty Bi Developer Oncology 02/24/23 Bk Lenz DO [address] [place] [address] Hematology/Oncology 07/14/23 Food Products Tester Relationship Specialty Start Date End Date Colin Sofia MD [address] [place] [address] PCP - General Family Medicine 01/25/11 Syed Marquez [address] [place] [address] Ent - Otolaryngology 02/24/23 Madi Parker MD [address] [address] Pulmonary Disease 02/24/23 Chloe Zambrano RN Specialty Bi Developer Oncology 02/24/23 Bk Lenz DO [address] [place] [address] Hematology/Oncology 07/14/23 Food Products Tester Relationship Specialty Start Date End Date Colin Sofia MD [address] [place] [address] PCP - General Family Medicine 01/25/11 Syed Marquez [address] [place] [address] Ent - Otolaryngology 02/24/23 Madi Parker MD [address] [address] Pulmonary Disease 02/24/23 Chloe Zambrano RN Specialty Bi Developer Oncology 02/24/23 Bk Lenz DO [address] [place] [address] Hematology/Oncology 07/14/23 Food Products Tester Relationship Specialty Start Date End Date Colin Sofia MD [address] [place] [address] PCP - General Family Medicine 01/25/11 Syed Marquez [address] [place] [address] Ent - Otolaryngology 02/24/23 Madi Parker MD [address] [place] [address] Pulmonary Disease 02/24/23 Chloe Zambrano RN Specialty Bi Developer Oncology 02/24/23 Bk Lenz DO [address] [place] [address] Hematology/Oncology 07/14/23 Food Products Tester Relationship Specialty Start Date End Date Colin Sofia MD [address] [place] [address] PCP - General Family Medicine 01/25/11 Syed Marquez [address] [place] [address] Ent - Otolaryngology 02/24/23 Madi Parker MD [address] [place] [address] Pulmonary Disease 02/24/23 Chloe Zambrano RN Specialty Bi Developer Oncology 02/24/23 Bk Lenz DO [address] [place] [address] Hematology/Oncology 07/14/23 Food Products Tester Relationship Specialty Start Date End Date Colin Sofia MD [address] [place] [address] PCP - General Family Medicine 01/25/11 Syed Marquez [address] [place] [address] Ent - Otolaryngology 02/24/23 Madi Parker MD [address] [facility] [place] [address] Pulmonary Disease 02/24/23 Chloe Zambrano RN Specialty Bi Developer Oncology 02/24/23 Bk Lenz DO [address] [facility] [place] [address] Hematology/Oncology 07/14/23 Food Products Tester Relationship Specialty Start Date End Date Colin Sofia MD [address] [facility] [place] [address] PCP - General Family Medicine 01/25/11 Syed Marquez [address] [facility] [place] [address] Ent - Otolaryngology 02/24/23 Madi Parker MD [address] [facility] [place] [address] Pulmonary Disease 02/24/23 Chloe Zambrano RN Specialty Bi Developer Oncology 02/24/23 Bk Lenz DO [address] [place] [address] Hematology/Oncology 07/14/23 Food Products Tester Relationship Specialty Start Date End Date Colin Sofia MD [address] [place] [address] PCP - General Family Medicine 01/25/11 Syed Marquez [address] [facility] [place] [address] Ent - Otolaryngology 02/24/23 Madi Parker MD [address] [place] [address] Pulmonary Disease 02/24/23 Chloe Zambrano RN Specialty Bi Developer Oncology 02/24/23 Bk Lenz DO [address] [place] [address] Hematology/Oncology 07/14/23 Food Products Tester Relationship Specialty Start Date End Date Colin Sofia MD [address] [place] [address] PCP - General Family Medicine 01/25/11 Syed Marquez [address] [place] [address] Ent - Otolaryngology 02/24/23 Madi Parker MD [address] [place] [address] Pulmonary Disease 02/24/23 Chloe Zambrano RN Specialty Bi Developer Oncology 02/24/23 Bk Lenz DO [address] [place] [address] Hematology/Oncology 07/14/23 Food Products Tester Relationship Specialty Start Date End Date Colin Sofia MD [address] [place] [address] PCP - General Family Medicine 01/25/11 Syed Marquez [address] [place] [address] Ent - Otolaryngology 02/24/23 Madi Parker MD [address] [place] [address] Pulmonary Disease 02/24/23 Chloe Zambrano RN Specialty Bi Developer Oncology 02/24/23 Bk Lenz DO [address] [place] [address] Hematology/Oncology 07/14/23 Food Products Tester Relationship Specialty Start Date End Date Colin Sofia MD [address] [place] [address] PCP - General Family Medicine 01/25/11 Syed Marquez [address] [facility] [place] [address] Ent - Otolaryngology 02/24/23 Madi Parker MD [address] [facility] [place] [address] Pulmonary Disease 02/24/23 Chloe Zambrano RN Specialty Bi Developer Oncology 02/24/23 Bk Lenz DO [address] [place] [address] Hematology/Oncology 07/14/23 Food Products Tester Relationship Specialty Start Date End Date Colin Sofia MD [address] [place] [address] PCP - General Family Medicine 01/25/11 Syed Marquez [address] [place] [address] Ent - Otolaryngology 02/24/23 Madi Parker MD [address] [place] [address] Pulmonary Disease 02/24/23 Chloe Zambrano RN Specialty Bi Developer Oncology 02/24/23 Bk Lenz DO [address] [place] [address] Hematology/Oncology 07/14/23 Food Products Tester Relationship Specialty Start Date End Date Colin Sofia MD [address] [place] [address] PCP - General Family Medicine 01/25/11 Syed Marquez [address] [place] [address] Ent - Otolaryngology 02/24/23 Madi Parker MD [address] [place] [address] Pulmonary Disease 02/24/23 Chloe Zambrano RN Specialty Bi Developer Oncology 02/24/23 Bk Lenz DO [address] [place] [address] Hematology/Oncology 07/14/23 Food Products Tester Relationship Specialty Start Date End Date Colin Sofia MD [address] [place] [address] PCP - General Family Medicine 01/25/11 Syed Marquez [address] [place] [address] Ent - Otolaryngology 02/24/23 Madi Parker MD [address] [place] [address] Pulmonary Disease 02/24/23 Chloe Zambrano RN Specialty Bi Developer Oncology 02/24/23 Bk Lenz DO [address] [place] [address] Hematology/Oncology 07/14/23 Food Products Tester Relationship Specialty Start Date End Date Colin Sofia MD [address] [place] [address] PCP - General Family Medicine 01/25/11 Syed Marquez [address] [place] [address] Ent - Otolaryngology 02/24/23 Madi Parker MD [address] [place] [address] Pulmonary Disease 02/24/23 Chloe Zambrano RN Specialty Bi Developer Oncology 02/24/23 Bk Lenz DO [address] [place] [address] Hematology/Oncology 07/14/23 Food Products Tester Relationship Specialty Start Date End Date Colin Sofia MD [address] [place] [address] PCP - General Family Medicine 01/25/11 Syed Marquez [address] [place] [address] Ent - Otolaryngology 02/24/23 Madi Parker MD [address] [facility] [place] [address] Pulmonary Disease 02/24/23 Chloe Zambrano RN Specialty Bi Developer Oncology 02/24/23 Bk Lenz DO [address] [place] [address] Hematology/Oncology 07/14/23 Food Products Tester Relationship Specialty Start Date End Date Colin Sofia MD [address] [place] [address] PCP - General Family Medicine 01/25/11 Syed Marquez [address] [place] [address] Ent - Otolaryngology 02/24/23 Madi Parker MD [address] [place] [address] Pulmonary Disease 02/24/23 Chloe Zambrano RN Specialty Bi Developer Oncology 02/24/23 Bk Lenz DO [address] [place] [address] Hematology/Oncology 07/14/23 Food Products Tester Relationship Specialty Start Date End Date Colin Sofia MD [address] [place] [address] PCP - General Family Medicine 01/25/11 Syed Marquez [address] [facility] [place] [address] Ent - Otolaryngology 02/24/23 Madi Parker MD [address] [facility] [place] [address] Pulmonary Disease 02/24/23 Chloe Zambrano RN Specialty Bi Developer Oncology 02/24/23 Bk Lenz DO [address] [place] [address] Hematology/Oncology 07/14/23 Food Products Tester Relationship Specialty Start Date End Date Colin Sofia MD [address] [place] [address] PCP - General Family Medicine 01/25/11 Syed Marquez [address] [place] [address] Ent - Otolaryngology 02/24/23 Madi Parker MD [address] [place] [address] Pulmonary Disease 02/24/23 Chloe Zambrano RN Specialty Bi Developer Oncology 02/24/23 Bk Lenz DO [address] [place] [place], [place] [address] Hematology/Oncology 07/14/23 Food Products Tester Relationship Specialty Start Date End Date Colin Sofia MD [address] [facility] [place] [address] PCP - General Family Medicine 01/25/11 Syed Marquez [address] [facility] [place] [address] Ent - Otolaryngology 02/24/23 Madi Parker MD [address] [facility] [place] [address] Pulmonary Disease 02/24/23 Chloe Zambrano RN Specialty Bi Developer Oncology 02/24/23 Bk Lenz DO [address] [place] [address] Hematology/Oncology 07/14/23 Food Products Tester Relationship Specialty Start Date End Date Colin Sofia MD [address] [facility] [place] [address] PCP - General Family Medicine 01/25/11 Syed Marquez [address] [place] [address] Ent - Otolaryngology 02/24/23 Madi Parker MD [address] [facility] [place] [address] Pulmonary Disease 02/24/23 Chloe Zambrano RN Specialty Bi Developer Oncology 02/24/23 Bk Lenz DO [address] [place] [address] Hematology/Oncology 07/14/23 Food Products Tester Relationship Specialty Start Date End Date Colin Sofia MD [address] [place] [address] PCP - General Family Medicine 01/25/11 Syed Marquez [address] [place] [address] Ent - Otolaryngology 02/24/23 Madi Parker MD [address] [facility] [place] [address] Pulmonary Disease 02/24/23 Chloe Zambrano RN Specialty Bi Developer Oncology 02/24/23 Bk Lenz DO [address] [place] [address] Hematology/Oncology 07/14/23 Food Products Tester Relationship Specialty Start Date End Date Colin Sofia MD [address] [place] [address] PCP - General Family Medicine 01/25/11 Syed Marquez [address] [place] [address] Ent - Otolaryngology 02/24/23 Madi Parker MD [address] [place] [address] Pulmonary Disease 02/24/23 Chloe Zambrano RN Specialty Bi Developer Oncology 02/24/23 Bk Lenz DO [address] [place] [address] Hematology/Oncology 07/14/23 Food Products Tester Relationship Specialty Start Date End Date Colin Sofia MD [address] [place] [address] PCP - General Family Medicine 01/25/11 Syed Marquez [address] [place] [address] Ent - Otolaryngology 02/24/23 Madi Parker MD [address] [place] [address] Pulmonary Disease 02/24/23 Chloe Zambrano RN Specialty Bi Developer Oncology 02/24/23 Bk Lenz DO [address] [place] [address] Hematology/Oncology 07/14/23 Food Products Tester Relationship Specialty Start Date End Date Colin Sofia MD [address] [place] [address] PCP - General Family Medicine 01/25/11 Syed Marquez [address] [place] [address] Ent - Otolaryngology 02/24/23 Madi Parker MD [address] [place] [address] Pulmonary Disease 02/24/23 Chloe Zambrano RN Specialty Bi Developer Oncology 02/24/23 Bk Lenz DO [address] [place] [address] Hematology/Oncology 07/14/23 Food Products Tester Relationship Specialty Start Date End Date Colin Sofia MD [address] [place] [address] PCP - General Family Medicine 01/25/11 Syed Marquez [address] [place] [address] Ent - Otolaryngology 02/24/23 Madi Parker MD [address] [place] [address] Pulmonary Disease 02/24/23 Chloe Zambrano RN Specialty Bi Developer Oncology 02/24/23 Bk Lenz DO [address] [place] [address] Hematology/Oncology 07/14/23 Food Products Tester Relationship Specialty Start Date End Date Colin Sofia MD [address] [place] [address] PCP - General Family Medicine 01/25/11 Syed Marquez [address] [place] [address] Ent - Otolaryngology 02/24/23 Madi Parker MD [address] [place] [address] Pulmonary Disease 02/24/23 Chloe Zambrano RN Specialty Bi Developer Oncology 02/24/23 Bk Lenz DO [address] [place] [address] Hematology/Oncology 07/14/23 Food Products Tester Relationship Specialty Start Date End Date Colin Sofia MD [address] [place] [address] PCP - General Family Medicine 01/25/11 Syed Marquez [address] [place] [address] Ent - Otolaryngology 02/24/23 Madi Parker MD [address] [place] [address] Pulmonary Disease 02/24/23 Chloe Zambrano RN Specialty Bi Developer Oncology 02/24/23 Bk Lenz DO [address] [place] [address] Hematology/Oncology 07/14/23 Food Products Tester Relationship Specialty Start Date End Date Colin Sofia MD [address] [place] [address] PCP - General Family Medicine 01/25/11 Syed Marquez [address] [place] [address] Ent - Otolaryngology 02/24/23 Madi Parker MD [address] [place] [address] Pulmonary Disease 02/24/23 Chloe Zambrano RN Specialty Bi Developer Oncology 02/24/23 Bk Lenz DO [address] [place] [address] Hematology/Oncology 07/14/23 Food Products Tester Relationship Specialty Start Date End Date Colin Sofia MD [address] [place] [address] PCP - General Family Medicine 01/25/11 Syed Marquez [address] [place] [address] Ent - Otolaryngology 02/24/23 Madi Parker MD [address] [place] [address] Pulmonary Disease 02/24/23 Chloe Zambrano RN Specialty Bi Developer Oncology 02/24/23 Bk Lenz DO [address] [place] [address] Hematology/Oncology 07/14/23 Food Products Tester Relationship Specialty Start Date End Date Colin Sofia MD [address] [place] [address] PCP - General Family Medicine 01/25/11 Food Products Tester Relationship Specialty Start Date End Date Colin Sofia MD [address] [facility] [place] [address] PCP - General Family Medicine 01/25/11 Food Products Tester Relationship Specialty Start Date End Date Colin Sofia MD [address] [place] [address] PCP - General Family Medicine 01/25/11 Syed Marquez [address] [place] [address] Ent - Otolaryngology 02/24/23 Madi Parker MD [address] [place] [address] Pulmonary Disease 02/24/23 Chloe Zambrano RN Specialty Bi Developer Oncology 02/24/23 Bk Lenz DO [address] [facility] [place] [address] Hematology/Oncology 07/14/23 Food Products Tester Relationship Specialty Start Date End Date Colin Sofia MD [address] [place] [address] PCP - General Family Medicine 01/25/11 Syed Marquez [address] [place] [address] Ent - Otolaryngology 02/24/23 Madi Parker MD [address] [place] [address] Pulmonary Disease 02/24/23 Chloe Zambrano RN Specialty Bi Developer Oncology 02/24/23 Bk Lenz DO [address] [place] [address] Hematology/Oncology 07/14/23 Food Products Tester Relationship Specialty Start Date End Date Colin Sofia MD [address] [place] [address] PCP - General Family Medicine 01/25/11 Syed Marquez [address] [place] [address] Ent - Otolaryngology 02/24/23 Madi Parker MD [address] [place] [address] Pulmonary Disease 02/24/23 Chloe Zambrano RN Specialty Bi Developer Oncology 02/24/23 Bk Lenz DO [address] [place] [address] Hematology/Oncology 07/14/23 Food Products Tester Relationship Specialty Start Date End Date Colin Sofia MD [address] [place] [address] PCP - General Family Medicine 01/25/11 Syed Marquez [address] [place] [address] Ent - Otolaryngology 02/24/23 Madi Parker MD [address] [place] [address] Pulmonary Disease 02/24/23 Chloe Zambrano RN Specialty Bi Developer Oncology 02/24/23 Bk Lenz DO [address] [place] [address] Hematology/Oncology 07/14/23 Food Products Tester Relationship Specialty Start Date End Date Colin Sofia MD [address] [place], [place] [address] PCP - General Family Medicine 01/25/11 Food Products Tester Relationship Specialty Start Date End Date Colin Sofia MD [address] [place], [place] [id number] PCP - General Family Medicine 01/25/11 Syed Marquez [address] [place], [place] [address] Ent - Otolaryngology 02/24/23 Madi Parker MD [address] [place] [address] Pulmonary Disease 02/24/23 Chloe Zambrano RN Specialty Bi Developer Oncology 02/24/23 Bk Lenz DO [address] [place], [place] [address] Hematology/Oncology 07/14/23 Ordered Prescriptions (unrec ognized section and content) Prescription Sig Dispensed Refills Start Date docusate sodium (COLACE) 100 MG capsule Take 1 capsule by mouth 2 times daily 60 capsule 0 06/28/2022 08/27/2022 oxyCODONE (ROXICODONE) 5 MG immediate release tabletIndications:S/P laparoscopy Take 1 tablet by mouth every 6 hours as needed for Pain for up to 3 days. Intended supply: 3 days. Take lowest dose possible to manage pain 12 tablet 0 06/28/2022 07/01/2022 acetaminophen (TYLENOL) 500 MG tablet Take 2 tablets by mouth every 6 hours as needed for Pain 120 tablet 0 06/28/2022 Scheduled Active and Recently Administ ered Medications (unrecognized section and content) Medication Order 06/26/2022 06/27/2022 06/28/2022 acetaminophen (TYLENOL) tablet 1,000 mg (COMPLETED) 1,000 mg, Oral, ONCE, 1 dose, On Mon06/28/22 at 1300, Maximum dose of acetaminophen is 4000 mg from all sources in 24 hours. Do not administer if patient has taken tylenol <4 hours earlier. Do not give if contraindicated ie. patient has active liver disease or cirrhosis., Pre-op (day of surgery) 1301 (Given - Provid er: Barbara Cortes RN) aspirin chewable tablet 81 mg 81 mg, Oral, DAILY, First dose on Mon06/28/22 at 1400, Until Discontinued 1341 (Given - Provid er: Barbara Cortes RN) chlorhexidine 2% cloth (COMPLETED) Topical, ONCE, On Mon06/28/22 at 1300, For 1 dose, RN to assist patient to wipe abdominal skin in pre op, Pre-op (day of surgery) 1242 (Given - Provid er: Barbara Cortes RN - Comment: entire abdomen) famotidine (PEPCID) tablet 20 mg (COMPLETED) 20 mg, Oral, ONCE, 1 dose, On Mon06/28/22 at 1300, Pre-op (day of surgery) 1301 (Given - Provid er: Barbara Cortes RN) gabapentin (NEURONTIN) capsule 100 mg (COMPLETED) 100 mg, Oral, ONCE, 1 dose, On Mon06/28/22 at 1300, For Age >69, or Low GFR, Pre-op (day of surgery) 1301 (Given - Provid er: Barbara Cortes RN) sodium chloride flush 0.9 % injection 5-40 mL 5-40 mL, IntraVENous, EVERY 12 HOURS SCHEDULED (2 times per day), First dose on Mon06/28/22 at 2100, Until Discontinued, For Line Patency: Peripheral IV = 5 mL; Midline or Central Line = 10 mL/lumen. If following IV push medication, administer flush at same rate as the IV push. Flush volume is determined by type of infusion therapy being given. For non-viscous solutions use: Peripheral IV = 5 mL Midline or Central Line = 10 mL/lumen For viscous solutions (i.e. blood components, parenteral nutrition, contrast media, or after obtaining blood sample) use: Peripheral IV = 10 mL Midline or Central Line = 20 mL/lumen, Pre-op (day of surgery) 2100 (Due) sodium chloride flush 0.9 % injection 5-40 mL 5-40 mL, IntraVENous, EVERY 12 HOURS SCHEDULED (2 times per day), First dose on Mon06/28/22 at 2100, Until Discontinued, For Line Patency: Peripheral IV = 5 mL; Midline or Central Line = 10 mL/lumen. If following IV push medication, administer flush at same rate as the IV push. Flush volume is determined by type of infusion therapy being given. For non-viscous solutions use: Peripheral IV = 5 mL Midline or Central Line = 10 mL/lumen For viscous solutions (i.e. blood components, parenteral nutrition, contrast media, or after obtaining blood sample) use: Peripheral IV = 10 mL Midline or Central Line = 20 mL/lumen, PACU only 2100 (Due) Continuous Medication Order 06/26/2022 06/27/2022 06/28/2022 lactated ringers infusion IntraVENous, at 50 mL/hr, CONTINUOUS, Starting on Mon06/28/22 at 1300, Upon admission to sameday - please start iv if patient does not have iv access. Use 500ml NS for patients on dialysis., Pre-op (day of surgery) 1300 (New Bag - Prov ider: Barbara Cortes RN) lactated ringers infusion IntraVENous, at 50 mL/hr, CONTINUOUS, Starting on Mon06/28/22 at 1530, PACU only 1530 (Due) PRN Medication Order 06/26/2022 06/27/2022 06/28/2022 0.9 % sodium chloride bolus 500 mL (9.51 mL/kg), IntraVENous, at 1,000 mL/hr, Administer over 0.5 Hours, PRN, Anti-nausea, Starting on Mon06/28/22 at 1507, PACU only 0.9 % sodium chloride infusion IntraVENous, at 5-250 mL/hr, PRN, if patient receiving piggyback infusions and maintenance fluids are not ordered OR KVO fluids to protect IV site / prevent frequent line interruptions/ long duration, Starting on Mon06/28/22 at 1235, For piggyback infusion, administer at same rate as piggyback for a total of 25 mL. Enter 25 mL into dose field and piggyback rate into rate field of order. If piggyback is infusing at a rate less than 100 mL/hr, enter 25 mL into dose field and 100 mL/hr into rate field of order. For KVO fluids, enter rate of 20 mL/hr or less into rate field of order., Pre-op (day of surgery) ALPRAZolam (NIRAVAM) dissolvable tablet 0.25 mg 0.25 mg, Oral, PRN, Starting on Mon06/28/22 at 1235, Until Discontinued, Anxiety, Pre-op (day of surgery) 1301 (Given - Provid er: Barbara Cortes RN) diphenhydrAMINE (BENADRYL) injection 12.5 mg 12.5 mg, IntraVENous, ONCE PRN, 1 dose, Starting on Mon06/28/22 at 1337, Until Mon06/28/22 at 2359, Itching, for use Sameday and, PACU only fentaNYL (SUBLIMAZE) injection 25 mcg 25 mcg, IntraVENous, EVERY 5 MIN PRN, 3 doses, Starting on Mon06/28/22 at 1507, Until Discontinued, Pain Moderate (4-6), Phase I and Phase II- Initial therapy for moderate pain (4-6). Restricted to a 90 minute time frame starting when the patient can verbally state their pain score. If after 2 doses the pain score does not decrease by more than one point, then call the provider. If oral meds are utilized, do not return to initial therapy medications. SDS and, PACU only fentaNYL (SUBLIMAZE) injection 50 mcg 50 mcg, IntraVENous, EVERY 5 MIN PRN, 3 doses, Starting on Mon06/28/22 at 1507, Until Discontinued, Pain Severe (7-10), Phase I or Phase II- Initial therapy for severe pain (7-10). Restricted to a 90 minute time frame starting when the patient can verbally state their pain score. If after 2 doses the pain score does not decrease by more than one point, then call the provider. If oral meds are utilized, do not return to initial therapy medications. SDS and, PACU only 1531 (Given - Provid er: Alejandra Mckeon RN) lidocaine 1 % injection 1 mL 1 mL, IntraDERmal, ONCE PRN, 1 dose, Starting on Mon06/28/22 at 1235, Until Mon06/28/22 at 2359, IV start, Pre-op (day of surgery) LORazepam (ATIVAN) injection 0.5 mg 0.5 mg, IntraVENous, ONCE PRN, 1 dose, Starting on Mon06/28/22 at 1507, Until Mon06/28/22 at 2359, for anxiety or muscle spasm., PACU only meperidine (DEMEROL) injection 12.5 mg 12.5 mg, IntraVENous, EVERY 5 MIN PRN, 4 doses, Starting on Mon06/28/22 at 1507, Until Discontinued, Shivering, , May give every 5 minutes to max of 50mg. for use Sameday and, PACU only ondansetron (ZOFRAN) injection 4 mg 4 mg, IntraVENous, ONCE PRN, 1 dose, Starting on Mon06/28/22 at 1507, Until Mon06/28/22 at 2359, Nausea, Initial antiemetic therapy. For use sameday and, PACU only oxyCODONE (ROXICODONE) immediate release tablet 5 mg (COMPLETED) 5 mg, Oral, PRN, 1 dose, Starting on Mon06/28/22 at 1507, Until Mon06/28/22 at 2359, Pain Moderate (4-6), PHASE II, PACU only 1609 (Given - Provid er: José Miguel Mas RN) sodium chloride flush 0.9 % injection 5-40 mL 5-40 mL, IntraVENous, PRN, Starting on Mon06/28/22 at 1235, Until Discontinued, Line Care, After every IV line use, For Line Patency: Peripheral IV = 5 mL; Midline or Central Line = 10 mL/lumen. If following IV push medication, administer flush at same rate as the IV push. Flush volume is determined by type of infusion therapy being given. For non-viscous solutions use: Peripheral IV = 5 mL Midline or Central Line = 10 mL/lumen For viscous solutions (i.e. blood components, parenteral nutrition, contrast media, or after obtaining blood sample) use: Peripheral IV = 10 mL Midline or Central Line = 20 mL/lumen, Pre-op (day of surgery) sodium chloride flush 0.9 % injection 5-40 mL 5-40 mL, IntraVENous, PRN, Starting on Mon06/28/22 at 1507, Until Discontinued, Line Care, After every IV line use, For Line Patency: Peripheral IV = 5 mL; Midline or Central Line = 10 mL/lumen. If following IV push medication, administer flush at same rate as the IV push. Flush volume is determined by type of infusion therapy being given. For non-viscous solutions use: Peripheral IV = 5 mL Midline or Central Line = 10 mL/lumen For viscous solutions (i.e. blood components, parenteral nutrition, contrast media, or after obtaining blood sample) use: Peripheral IV = 10 mL Midline or Central Line = 20 mL/lumen, PACU only PRN Medication Order 12/31/2023 01/01/2024 01/02/2024 lidocaine (PF) 10 mg/mL (1 %) injection (XYLOCAINE) (CANCELED) SUBCUTANEOUS, X (OR/PROCEDURE) PRN, Starting on Mon01/02/24 at 0921, Until Mon01/02/24 at 0950, Intraprocedure 0927 (Given - Provid er: James Shoemaker MD)0933 (Given - Provider: James Shoemaker MD) INFORMATION SOURCE (unrecogn ized section and content) DATE CREATED AUTHOR 08/12/2022 [facility] [facility] DATE CREATED AUTHOR AUTHOR'S ORGANIZ ATION 02/07/2023 [facility] DATE CREATED AUTHOR AUTHOR'S ORGANIZ ATION 05/23/2023 [facility] DATE CREATED AUTHOR AUTHOR'S ORGANIZ ATION 06/29/2024 [facility] DATE CREATED AUTHOR AUTHOR'S ORGANIZ ATION 07/07/2024 [facility] DATE CREATED AUTHOR AUTHOR'S ORGANIZ ATION 08/06/2024 [facility] Inactive Administered Medications - up to 3 most recent administrations Administered Medications (un recognized section and content) Medication Order MAR Action Action Date Dose Rate Site cyanocobalamin 1,000 mcg injection 1,000 mcg, INTRAMUSCULAR, ONCE, 1 dose, On Sirena 11/30/23 at 1400 Given 11/30/2023 2:18 PM EST 1,000 mcg Deltoid, Right PEMEtrexed disodium 755 mg in NaCl 0.9% 140.2 mL (ALIMTA) 755 mg (500 mg/m2 1.51 m2 Treatment Plan BSA from Recorded weight), INTRAVENOUS, Administer over 10 Minutes, ONCE, 1 dose, On Sirena 11/30/23 at 1400, Approx Total Volume - Expires: 12/01/23 @ 2000 Hazardous Chemotherapy Drug: Use appropriate PPE. New Bag/Syringe/Mario le 11/30/2023 2:22 PM EST 755 mg Inactive Administered Medications - up to 3 most recent administrations Medication Order MAR Action Action Date Dose Rate Site diphenhydrAMINE 25 mg injection (BENADRYL) 25 mg, INTRAVENOUS, ONCE, 1 dose, On Sirena 12/28/23 at 1100 Given 12/28/2023 10:42 AM EDT 25 mg hydrocortisone sodium succinate (PF) 100 mg injection (Solu-CORTEF) 100 mg, INTRAVENOUS, NEEDED, 1 dose, Starting on Sirena 12/28/23 at 0822, Until Sirena 12/28/23 at 1039, Administer per hypersensitivity/anaphylax is grading in nursing communication Given 12/28/2023 10:39 AM EDT 100 mg ondansetron (PF) 8 mg injection (ZOFRAN) 8 mg, INTRAVENOUS, ONCE, 1 dose, On Sirena 12/28/23 at 0830 Given 12/28/2023 8:27 AM EDT 8 mg PACLitaxel-protein bound 151 mg in NaCl 0.9% (ABRAXANE) 151 mg (100 mg/m2 1.51 m2 Treatment Plan BSA from Recorded weight), INTRAVENOUS, at 60.4 mL/hr, Administer over 30 Minutes, ONCE, 1 dose, On Sirena 12/28/23 at 0830, exp 0900 12/29/23 (room temp).- infuse via syringe pump Administer total dose over 30 minutes. Hazardous Chemotherapy Drug: Use appropriate PPE. Antineoplastic Irritant with Vesicant Potential. New Bag/Syringe/Bottle 12/28/2023 8:58 AM EDT 151 mg 60.4 mL/hr Inactive Administered Medications - up to 3 most recent administrations Medication Order MAR Action Action Date Dose Rate Site ondansetron (PF) 8 mg injection (ZOFRAN) 8 mg, INTRAVENOUS, ONCE, 1 dose, On Sirena 01/04/24 at 0900 Given 01/04/2024 9:13 AM EDT 8 mg PACLitaxel-protein bound 151 mg in NaCl 0.9% (ABRAXANE) 151 mg (100 mg/m2 1.51 m2 Treatment Plan BSA from Recorded weight), INTRAVENOUS, at 60.4 mL/hr, Administer over 30 Minutes, ONCE, 1 dose, On Mon01/04/24 at 0900, exp 1300 01/04/24 (room temp) -infuse via syringe pump Administer total dose over 30 minutes. Hazardous Chemotherapy Drug: Use appropriate PPE. Antineoplastic Irritant with Vesicant Potential. New Bag/Syringe/Bottle 01/04/2024 9:46 AM EDT 151 mg 60.4 mL/hr Inactive Administered Medications - up to 3 most recent administrations Medication Order MAR Action Action Date Dose Rate Site ondansetron (PF) 8 mg injection (ZOFRAN) 8 mg, INTRAVENOUS, ONCE, 1 dose, On Mon01/25/24 at 0830 Given 01/25/2024 8:44 AM EDT 8 mg PACLitaxel-protein bound 151 mg in NaCl 0.9% (ABRAXANE) 151 mg (100 mg/m2 1.51 m2 Treatment Plan BSA from Recorded weight), INTRAVENOUS, at 60.4 mL/hr, Administer over 30 Minutes, ONCE, 1 dose, On Mon01/25/24 at 0830, exp 1300 01/25/24 (room temp) - infuse via syringe pump Administer total dose over 30 minutes. Hazardous Chemotherapy Drug: Use appropriate PPE. Antineoplastic Irritant with Vesicant Potential. New Bag/Syringe/Bottle 01/25/2024 8:51 AM EDT 151 mg 60.4 mL/hr Inactive Administered Medications - up to 3 most recent administrations Medication Order MAR Action Action Date Dose Rate Site ondansetron (PF) 8 mg injection (ZOFRAN) 8 mg, INTRAVENOUS, ONCE, 1 dose, On Mon01/31/24 at 1000 Given 01/31/2024 10:01 AM EDT 8 mg PACLitaxel-protein bound 151 mg in NaCl 0.9% (ABRAXANE) 151 mg (100 mg/m2 1.51 m2 Treatment Plan BSA from Recorded weight), INTRAVENOUS, at 60.4 mL/hr, Administer over 30 Minutes, ONCE, 1 dose, On Mon01/31/24 at 1000, Expires: 01/31/24 @ 1810 Hazardous Chemotherapy Drug: Use appropriate PPE. Antineoplastic Irritant with Vesicant Potential. New Bag/Syringe/Bottle 01/31/2024 10:28 AM EDT 151 mg 60.4 mL/hr FOR RECORDS PERTAINING TO PATIENTS WHO ARE OR HAVE BEEN ENROLLED IN A CHEMICAL DEPENDENCY/SUBSTANCEABUSE PROGRAM, SOME INFORMATION MAY BE OMITTED. This clinical summary was aggregated from multiple sources. Caution should be exercised in using it in the provision of clinical care. This summary normalizes information from multiple sources, and as a consequence, information in this document may materially change the coding, format and clinical context of patient data. In addition, data may be omitted in some cases. CLINICAL DECISIONS SHOULD BE BASED ON THE PRIMARY CLINICAL RECORDS. [facility] [employer] [facility]. provides no warranty or guarantee of the accuracy or completeness of information in this document.
== END | disposition home or self-care (01) ==
LOC: US 07:34
PROVIDERS: PCP Family Medicine; Referring Provider Internal Medicine Hematology & Oncology; Visit Provider Internal Medicine Hematology & Oncology
DX: C78.6 Secondary malignant neoplasm of retroperitoneum and peritoneum (principal); C56.9 Malignant neoplasm of unspecified ovary; R18.8 Other ascites
CPT/HCPCS: 76705

== ENCOUNTER → 2024-08-30 | Outpatient (CLI) | payer OTHER, SELFPAY ==
--- NOTE | 2024-08-30 09:26 | US_ITS ---
STUDY: ABDOMINAL ULTRASOUND -ascites survey. REASON FOR VISIT: Female, 59 years old ASCITES TECHNIQUE: Ultrasound evaluation of the 4 quadrants was performed with real-time and static montiel-scale imaging. TECHNICAL QUALITY: Adequate. COMPARISON: None. FINDINGS: There is not enough fluid for safe paracentesis. US/Abdomen Limited IMPRESSION: Not enough fluid for a safe paracentesis. Electronically Signed: Isidoro Romero MD at 11:39 EST ,
== END | disposition home or self-care (01) ==
LOC: US 09:26
PROVIDERS: PCP Family Medicine; Referring Provider Internal Medicine Hematology & Oncology; Visit Provider Internal Medicine Hematology & Oncology
DX: R18.8 Other ascites (principal)
CPT/HCPCS: 76705

== ENCOUNTER → 2024-09-04 | Outpatient (CLI) | payer OTHER, SELFPAY ==
[2024-09-04] MEDS: Lidocaine 2% (20 ml mdv) 20 ML Vial INFILT (11:28)
--- NOTE | 2024-09-04 11:51 | OP.PCM_ITS ---
Problems Associated Problem List Diagnoses (1) Ascites:
--- NOTE | 2024-09-04 11:51 | PCM.OPRPT ---
Problems Associated Problem List Diagnoses (1) Ascites: Operative Report (Standard) Operative Information Surgery/Procedure Performed: Paracentesis Surgeon: Lisa Lala Date of Procedure: 09/04/24 Procedure Start Time: : Procedure Stop Time: 11:45 Pre-Operative Diagnosis: Ascites Post-Operative Diagnosis: Ascites Select all DRAINS/GRAFTS/IMPLANTS that apply: None Type of Anesthesia: Local Estimated Blood Loss: 0 Specimen collected: No Description of surgery: PROCEDURE: Ultrasound guided paracentesis ORDERING PROVIDER: Dr. Lenz INDICATION: Female, 59 years old. Ascites. PROVIDER: MAKAYLA Poe TECHNIQUE: The risks, benefits, and alternatives to the procedure were explained to the patient. The specific risks of bleeding, infection, and damage to bowel were detailed and accepted. The patient did report continued use of her anticoagulant for pulmonary embolism. She did have a nosebleed overnight, with subsequent hematic emesis. Patient denies any bleeding since. The patient is aware that there is always bleeding risk during invasive procedure, but that her pocket is easily accessible, measuring just approximately 1.75 cm deep. Patient was agreeable to the procedure following discussion of risk and benefits. Witnessed informed consent was obtained. The abdomen was ultrasonographically surveyed. An appropriate pocket of fluid was identified in the right upper quadrant. The skin was prepped with chlorhexidine and sterile field established. 2% lidocaine was used for local anesthetic. Using ultrasound guidance, the peritoneal cavity was accessed with a 5-Peruvian paracentesis needle/catheter system. The trocar was removed. A total of 1700 ml of clear yellow colored fluid was removed from the peritoneal cavity. The catheter was removed and a sterile dressing was applied. The procedure was well tolerated. IMPRESSION: Successful ultrasound guided paracentesis with right upper quadrant access site. Surgical Findings: successful paracentesis Order Entry aging department supervisor: No Complications Complications: No Procedures Radiology Radiology US Procedures: 03256 Paracentesis
[2024-09-04 12:26] VITALS: BP 114/67; PULSE 73; RESP 18; TEMP 37; O2SAT 100
[2024-09-04 12:29] VITALS: BP 102/64; PULSE 711; RESP 8; O2SAT 99
== END | disposition home or self-care (01) ==
LOC: US 10:41
PROVIDERS: PCP Family Medicine; Referring Provider Internal Medicine Hematology & Oncology; Visit Provider Internal Medicine Hematology & Oncology
DX: C78.6 Secondary malignant neoplasm of retroperitoneum and peritoneum (principal); C56.9 Malignant neoplasm of unspecified ovary; R18.8 Other ascites
CPT/HCPCS: 49083

== ENCOUNTER 2024-09-08 18:53 | Emergency (ER) | payer OTHER, SELFPAY ==
[2024-09-08 18:54] VITALS: BP 119/73; PULSE 94; RESP 24; TEMP 36.3; O2SAT 100; BMI 15.2
--- NOTE | 2024-09-08 19:11 | CT_ITS ---
EXAM: CT CHEST WITHOUT INTRAVENOUS CONTRAST CLINICAL INDICATION: Right lower rib pain TECHNIQUE: Helically acquired images were obtained of the chest without intravenous contrast. This CT exam was performed using one or more of the following dose reduction techniques: automated exposure control, adjustment of the mA and/or kV according to patient size, and/or use of iterative reconstruction technique. COMPARISON: 07/23/2024 FINDINGS: LUNGS AND PLEURAL SPACES: There is a moderate to large right-sided pleural effusion. There is consolidation of the right lung base which may represent pneumonia. This is not significantly changed from the reference exam. There is a noncalcified nodule in the right upper lobe and measures 4 mm. There are emphysematous changes in lung apices. There is a noncalcified nodule in the left upper lobe that measures 6 mm. HEART: Unremarkable. Heart size is normal. No pericardial effusion. No significant coronary artery calcifications. MEDIASTINUM: Unremarkable. No mediastinal or hilar adenopathy. Esophagus is unremarkable. No hiatal hernia. THYROID: Unremarkable. No thyroid lesions. BONES/JOINTS: Unremarkable. No suspicious lytic or blastic abnormality. VASCULATURE: Unremarkable. Thoracic aorta is non-dilated. INTRAPERITONEAL SPACE: There is free fluid in the upper abdomen which may represent ascites. CT/Chest without Contrast IMPRESSION: 1. Persistent right-sided pleural effusion. There is consolidation in the right base which may represent atelectasis or pneumonia. 2. Noncalcified nodules in both lungs which may represent granulomas or metastatic disease. There has been minimal change from the reference exam. Electronically Signed: David Forman MD at 20:38 EST ,
[2024-09-08] MEDS: oxyCODONE 5 MG Tablet PO (19:19)
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
[2024-09-08 20:58] VITALS: BP 124/64; PULSE 89; RESP 16; TEMP 36.6; O2SAT 99
== END 2024-09-08 20:59 | disposition home or self-care (01) ==
PROVIDERS: Emergency Provider Emergency Medicine; PCP Family Medicine; Visit Provider Emergency Medicine
DX: R07.89 Other chest pain (principal); J43.9 Emphysema, unspecified; S20.20XD Contusion of thorax, unspecified, subsequent encounter; Z87.891 Personal history of nicotine dependence; E78.5 Hyperlipidemia, unspecified; I25.10 Atherosclerotic heart disease of native coronary artery without angina pectoris; X58.XXXD Exposure to other specified factors, subsequent encounter
CPT/HCPCS: 71250; 93005; 99282

== ENCOUNTER → 2024-10-31 | Outpatient (CLI) | payer OTHER, SELFPAY ==
--- NOTE | 2024-10-31 12:58 | VDLE_ITS ---
Reason For Study: BLE Edema / HX LLE DVT RIGHT LEFT GSV is normal. Acute deep vein thrombosis is noted in the CFV is compressible, spontaneous, phasic, CFV. It is dilated and NONCOMPRESSIBLE. competent and demonstrates normal augmentation. Acute deep vein thrombosis is noted in the FV is compressible, spontaneous, phasic, FV. It is dilated and NONCOMPRESSIBLE. competent and demonstrates normal augmentation. Acute deep vein thrombosis is noted in the POP V is compressible, spontaneous, phasic, Deep FV. It is dilated and NONCOMPRESSIBLE. competent and demonstrates normal augmentation. Acute deep vein thrombosis is noted in the T/P Trunk is compressible. POP V. It is dilated and NONCOMPRESSIBLE. PTV is compressible. CFV - FV - POP V all appear to have RT PerV is compressible. continuous flow. Edema noted throughout RLE and foot. Procedure Acute deep vein thrombosis is noted in the This is a venous duplex using B-mode, color T/P Trunk. It is dilated and NONCOMPRESSIBLE. flow and spectral Doppler. Exam performed in department. The exam was diagnostic. Acute deep vein thrombosis is noted in the Per V. It is dilated and NONCOMPRESSIBLE. PTV is compressible. Edema noted throughout LLE and foot. VL/Venous Duplex US - Anam Extrem Interpretation Summary Acute deep vein thrombosis is noted in the left common femoral vein, femoral ve in, profunda vein, popliteal vein, tiboperoneal trunk vein, peroenal vein. Deep veins of the right lower extremity are patent and compressible segmentally . There is no evidence of right lower extremity deep vein thrombosis. The right great saphen[place] us vein appears patent and compressible segmentally. Ordering Physician: Nargis Pisano Referring Physician: MD Kimberlyn Willi Performed By: Davey Negron, RVT
== END | disposition home or self-care (01) ==
PROVIDERS: PCP Family Medicine; Referring Provider Physician Assistant; Visit Provider Physician Assistant
DX: I82.402 Acute embolism and thrombosis of unspecified deep veins of left lower extremity (principal); R60.0 Localized edema
CPT/HCPCS: 93970

== ENCOUNTER 2024-11-10 09:17 | Emergency (ER) | payer OTHER, SELFPAY ==
[2024-11-10 09:18] VITALS: BP 87/68; PULSE 98; RESP 15; TEMP 36.2; O2SAT 94
--- NOTE | 2024-11-10 09:38 | CT_ITS ---
STUDY: CTA CHEST REASON FOR EXAM: Female, 59 years old. Hx CVA ovarian, hemoptysis, left-sided chest pain, -- Diagnosed recently DVT, on Xarelto, history of tra RADIATION DOSAGE (If Supplied By Facility): CTDIvol = ( 13.98 ) mGy, DLP = ( 1057.32 ) mGycm TECHNIQUE: The examination was performed with the intravenous administration of IV 75mL Isovue-370. Post-processing of the angiographic images was performed, with multiplanar reformation and 3D reconstruction. The protocol utilizes one or more of the following dose reduction techniques: automated exposure control, adjustment of mA and/or kV according to patient size,and/or use of iterative reconstruction technique. COMPARISON: Noncontrast CT scan of the chest of 09/08/2024 FINDINGS: There is limited enhancement of the main pulmonary artery and right and left pulmonary arteries. There is limited enhancement of the bilateral peripheral pulmonary arteries. Difficult to evaluate pulmonary arteries for pulmonary embolism. Normal thoracic aorta and visualized great vessels. There is no demonstrated aortic dissection. Normal heart and pericardium. No evidence of coronary calcifications. Normal mediastinum. Normal hilar regions. Normal visualized trachea and bronchi. Numerous pulmonary masses, the largest is in the left lower lobe measuring about 3.5 cm essentially new since previous examination consistent with diffuse metastases. Moderate bilateral pleural effusions larger on the left side. Unremarkable chest wall structures. No demonstrated acute osseous changes. The upper abdomen is reported separately. CT/CTA Chest W/WO Contrast IMPRESSION: 1. Limited evaluation of the pulmonary arteries due to suboptimal enhancement. 2. Numerous pulmonary masses consistent with metastases essentially new since previous examination. 3. Moderate bilateral pleural effusions larger on the left side. 4. No evidence of acute fracture. 5. Upper abdominal changes reported separately. Electronically Signed: Colton Marrufo MD at 11:55 EST ,
--- NOTE | 2024-11-10 09:39 | EKG12_ITS ---
Test Reason : Blood Pressure : */* mmHG Vent. Rate : 78 BPM Atrial Rate : 78 BPM P-R Int : 100 ms QRS Dur : 74 ms QT Int : 394 ms P-R-T Axes : 76 77 74 degrees QTcB Int : 449 ms Sinus rhythm with short AK Otherwise normal ECG Confirmed by SAAD DOWNING, JESSIE ([id number]), editor farm journal SABRA JUAREZ ([id number]) on 11/12/2024 6:16:45 AM Referred By: Confirmed By: JESSIE NASH MD
--- NOTE | 2024-11-10 09:39 | CT_ITS ---
STUDY: CT ABDOMEN AND PELVIS WITH CONTRAST REASON FOR EXAM: Female, 59 years old. Trauma, pain left upper quadrant on Xarelto , OVARIAN CANCER RADIATION DOSAGE (If Supplied By Facility): CTDIvol = ( 13.98 ) mGy, DLP = ( 1057.32 ) mGycm TECHNIQUE: IV 75mL Isovue-370 was administered. Transaxial images were obtained from the dome of the diaphragm to the symphysis pubis. Multiplanar coronal and sagittal images were reformatted. The protocol utilizes one or more of the following dose reduction techniques: automated exposure control, adjustment of mA and/or kV according to patient size,and/or use of iterative reconstruction technique. COMPARISON: No relevant prior comparison study available FINDINGS: Numerous pulmonary nodules, the largest is in the right lower lobe measuring about 3.6 cm consistent with metastases. Small left pleural effusion. The visualized portions of the heart are within normal limits. Multiple low-density liver lesions, the largest measures about 2.3 cm consistent with metastases. Loculated fluid collections medial to the liver and inferiorly, the largest measures about 5.5 cm. No evidence of gallstones. Prominent common bile duct. Normal spleen. 2.3 cm cystic lesion in the body of the pancreas. Normal bilateral adrenal glands. The stomach is not well distended. Lumen caliber small bowel loops. No evidence of acute diverticulitis. The appendix is not definitely identified. There is atherosclerotic calcification of the abdominal aorta, without a demonstrated aneurysm. Multiple hypodense lesions consistent with tendinopathy in the right periaortic region, cortes hepatis and inferior to the pancreas which could reflect necrotic nodes. Mild to moderate amount of ascites which could be loculated. Drainage tube is seen in the abdomen. Essentially unremarkable kidneys. No evidence of hydronephrosis. Normal urinary bladder. Free fluid in the pelvis. Absent uterus consistent with previous hysterectomy. Normal abdominal wall. No evidence of acute fracture. CT/Abdomen/Pelvis W IV Cont ONLY IMPRESSION: 1. Extensive pulmonary nodules consistent with metastases. 2. Bilateral pleural effusions larger on the right side. 3. Liver lesions consistent with metastases. 4. Multiple hypodense cystic lesions in the retroperitoneal, cortes hepatis and mid abdomen likely reflecting necrotic adenopathy. 5. Free fluid in the abdomen and pelvis. 6. No evidence of acute fracture.. Electronically Signed: Colton Marrufo MD at 11:46 EST ,
--- NOTE | 2024-11-10 09:41 | CT_ITS ---
INDICATION: Head trauma on anticoagulant EXAMINATION: CT BRAIN - CT Head or Brain W/O Contrast Injection TECHNIQUE: Multiple axial images were obtained of the head without intravenous contrast. The protocol utilizes one or more of the following dose reduction techniques: automated exposure control, adjustment of mA and/or kV according to patient size,and/or use of iterative reconstruction technique. IV Contrast dosage and agent: None. RADIATION DOSAGE (If Supplied By Facility): CTDIvol = ( 44.99 ) mGy, DLP = ( 815.79 ) mGycm COMPARISON: No relevant prior comparison study available FINDINGS: BRAIN PARENCHYMA: No intra- or extra-axial hemorrhage. Small old cortical infarct in the left basal ganglia. No intracranial mass or mass effect. There is preservation of the montiel/white matter interface. Posterior fossa structures are unremarkable. CSF SPACES: Appropriate for age. No hydrocephalus. Basal cisterns are patent. CALVARIUM, SKULL BASE, PARANASAL SINUSES AND MASTOID AIR CELLS: Clear. No discrete lytic or blastic abnormalities. ORBITS: Both globes, extraocular muscles, optic nerves and retrobulbar fat appear unremarkable. CT/Brain/Head without Contrast IMPRESSION: No acute intracranial process. Electronically Signed: Colton Marrufo MD at 11:29 EST ,
[2024-11-10 09:52] LABS: Absolute Lymphocyte Count 0.91 X10^3/uL (0.83-4.51); Absolute Neutrophil Count 6.6 X10^3/uL (2.0-7.7); Basophil# 0.03 X10^3/uL; Basophil% 0.4 % (0-1); Eosinophil# 0.04 X10^3/uL; Eosinophils% 0.5 % (0-5); Hematocrit 29.1 % (37-47); Hemoglobin 9.8 g/dL (12.0-15.0); Lymphocyte # 0.91 X10^3/ul (0.83-4.51); Lymphocyte % 11.1 % (19-41); Mean Corp Hgb Conc 33.7 g/dL (32-36); Mean Corpuscular Hgb 27.6 pg (27.0-32.0); Mean Platelet Vol. 9.5 fl (6.2-12.0); Monocyte# 0.55 X10^3/uL; Monocyte% 6.7 % (0-10); NRBC Flagged by Analyzer 0 % (0-5); Neutrophil # 6.59 X10^3/uL (2.7-7.7); Neutrophil % 80.7 % (47-70); Platelet Count 288 K/mm3 (150-450); RBC Distribution Width CV 18.1 % (11.6-14.6); Red Blood Count 3.55 M/mm3 (4.2-5.4); White Blood Count 8.2 K/mm3 (4.4-11.0)
[2024-11-10 10:07] LABS: ALB/GLOB Ratio 0.4 RATIO (0.9-2.4); AST(SGOT) 32 U/L (15-37); Alanine Aminotransfer ALT/SGPT 27 U/L (13-56); Albumin, Serum 1.7 g/dL (3.2-5.0); Alkaline Phosphatase 83 U/L (45-117); Anion Gap 5 (5-15); BUN 23 mg/dL (7-18); BUN/Creat Ratio 32.5 RATIO (10-20); Calcium,Total 8.5 mg/dL (8.5-10.1); Chloride 108 mmol/L (98-107); Creatinine, Serum 0.71 mg/dL (0.55-1.02); EST Glomerular Filtration Rate 90 mL/min (>60); Est Glom Filt Rate - Afr Amer 109 mL/min (>60); Glucose 143 mg/dL (74-106); Potassium 3.4 mmol/L (3.5-5.1); Protein, Total 5.7 g/dL (6.4-8.2); Sodium Level 140 mmol/L (136-145)
[2024-11-10] MEDS: Morphine 4 MG/ML Syringe IV (10:09)
[2024-11-10] MEDS: Ondansetron 4 MG/2 ML Vial IV (10:09)
[2024-11-10 10:23] VITALS: BP 98/72; PULSE 77; RESP 16; O2SAT 97
--- NOTE | 2024-11-10 10:33 | EDS_ITS ---
HPI History of Present Illness Chief Complaint: GI Bleed Detail of Chief Complaint: Hemoptysis, left-sided chest pain and LUQ and head trauma Informant: patient and family Onset/Context/Timing Onset: Days (Patient had a fall yesterday hitting head and fall several days ago with trauma to the left side of the torso) Context: Sudden Onset Timing: Continuous and Intermittent (Patient reported diplopia and headache yesterday. Presently she denies both) Quality: Per HPI narrative Location: Occiput area and left side of torso detailed physical exam Current Severity: Mild Maximum Severity: Moderate Worsened by: Pain left side worse with breathing and movement Relieved by: Nothing Associated Symptoms Associated Symptoms: Hemoptysis Narrative Narrative: Patient is a 59-year-old woman. Several years ago she was diagnosed with stage IV ovarian cancer. She is now receiving her care at [facility] since Dr. Lenz according to patient did not have direct admission privileges and no other options available at [facility]. Patient has fallen. She sustained trauma to the back of her head. She is on Xarelto for recent diagnosed DVT. Patient had recent blood work. She is anemic. Platelet count is normal. BUN and creatinine were normal. Patient denies fever or chills. Patient does have dominick blood according to son and patient. She denies hematemesis, melena medic easier. Patient endorses significant weight loss past 1 to 2 months. She has a port right subclavian region Prior similar symptoms: No Recent Illness/Hospitalization: No PFSH PFSH Medical History Ascites Port-A-Cath in place Wears glasses Depression Anxiety Bladder disease Low iron Dietary restriction Former smoker COPD (chronic obstructive pulmonary disease) Emphysema, unspecified Shortness of breath on exertion Cardiology follow-up encounter History of heart attack Heart palpitations Incidental lung nodule, greater than or equal to 8mm Ovarian cancer Elevated CA-125 Post-menopausal Syncope Smoker HLD (hyperlipidemia) Unexplained weight loss Abdominal pain Atherosclerotic heart disease of [place] coronary artery without angina pectoris Tobacco use COVID-19 (09/04/21) Acute ST elevation myocardial infarction (STEMI) (09/13/21) Hx of blood clots Home Medications ?Medication ?Instructions ?Recorded ?Last Taken ?Type cholecalciferol (vitamin D3) 125 125 mcg PO DAILY vitamin 02/16/23 02/20/23 History mcg (5,000 unit) capsule duloxetine 20 mg capsule,delayed 30 mg PO DAILY mental health 09/12/23 Unknown History release (Cymbalta) etoposide 50 mg capsule 50 mg PO DAILY cancer 07/23/24 Unknown History sennosides 8.6 mg-docusate sodium 2 tab PO BID laxative 07/23/24 Unknown History 50 mg tablet (Stimulant Laxative Plus) oxycodone 5 mg tablet 5 mg PO Q6H PRN pain 3 days #12 09/08/24 Unknown Rx tabs pantoprazole 40 mg tablet,delayed 40 mg PO QDAY 10/31/24 Unknown History release (Protonix) prochlorperazine maleate 10 mg 10 mg PO BID PRN 10/31/24 Unknown History tablet (Compazine) rivaroxaban 20 mg tablet (Xarelto) 20 mg PO QDAY 10/31/24 Unknown History tamoxifen 20 mg tablet 20 mg PO QDAY 10/31/24 Unknown History doxycycline monohydrate 100 mg 100 mg PO BID #14 CAPSULES 11/10/24 Unknown Rx capsule duloxetine 30 mg capsule,delayed 30 mg PO DAILY 11/10/24 Unknown History release olanzapine 5 mg tablet 5 mg PO QHS 11/10/24 Unknown History ondansetron 4 mg disintegrating 4 mg PO Q8H PRN PRN nausea/vomiting 11/10/24 Unknown History tablet Allergy/AdvReac Type Severity Reaction Status Date / Time hydromorphone (From Dilaudid) Allergy Intermediate Hives Verified 11/10/24 09:22 sulfamethoxazole (From Allergy Hives Verified 11/10/24 09:22 Bactrim) trimethoprim (From Bactrim) Allergy Hives Verified 11/10/24 09:22 atorvastatin AdvReac Severe Several Verified 11/10/24 09:22 UTI's, diarrhea, poor appetite metoprolol AdvReac Severe Severe Verified 11/10/24 09:22 diarrhea and fatigue Opioids - Morphine Analogues AdvReac NAUSEA AND Verified 11/10/24 09:22 (narcotics) VOMITING Family History Grandmother Cancer Ovarian Grandfather Cancer Lung Heart disease Mother Thyroid disorder Sister Thyroid disorder Sister Thyroid disorder Sister Thyroid disorder Colon cancer Father Hypertension Heart disease Surgical History History of total hysterectomy S/P tubal ligation H/O cardiac catheterization History of coronary artery stent placement (09/13/21) History of elbow surgery Social History household members: none Smoking Status: Former smoker quit status: considering quitting alcohol intake: current alcohol intake frequency: holidays/special occasions only details: rarely substance use type: does not use caffeine: No ROS ROS ED Constitutional Constitutional ED: Reports sweats and weight loss; Denies chills, fever(s) or subjective Eyes Eyes: Reports diplopia; Denies blurry vision or change in vision ENT ENT ED: Denies ear pain, rhinorrhea or sore throat Cardiovascular Cardiovascular: Reports chest pain; Denies orthopnea, palpitations, paroxysmal nocturnal dyspnea or racing heartbeat Respiratory/Chest Respiratory/Chest: Reports cough, dyspnea, sputum and other Details: Dominick hemoptysis per patient and family ; Denies dyspnea on exertion, orthopnea or paroxysmal nocturnal dyspnea Gastrointestinal Gastrointestinal: Reports abdominal pain and other Details: Catheter to drain ascitic fluid ; Denies constipation, diarrhea, melena, nausea or vomiting Genitourinary Genitourinary ED: Denies dysuria, hematuria or urinary frequency Musculoskeletal Musculoskeletal: Denies arthralgias, back pain, myalgias or neck pain Integumentary Denies Abrasions or rash Neurologic Neurologic: Reports headache(s); Denies paresthesias or weakness Psychiatric Psychiatric: Denies anxiety or depression Endocrine Endocrinology: Denies cold intolerance or heat intolerance Hematologic/Lymphatic Hematologic/Lymphatic: Reports systems reviewed and no addt'l complaints, except as documented EXAM Physical Exam Const Vital Signs: 11/10/24 09:18 11/10/24 10:23 11/10/24 11:00 Temperature 97.1 F L Temperature Source Temporal Pulse Rate 98 77 74 Respiratory Rate 15 16 14 Blood Pressure 87/68 L 98/72 111/72 Blood Pressure Mean 74 80 85 Pulse Ox 94 97 98 Oxygen Delivery Method Room Air Room Air Positive well nourished, well developed and cachectic General Appearance ED: well developed, cachectic, NAD and pallor; Negative for cyanotic or diaphoretic Nutritional Appearance: cachectic HEENT Reports dry mucous membranes HEENT Narrative: Slight tenderness occiput area. There is no hematoma. No palpable depression. Clinically no findings of basilar skull fracture. Mouth ED: Yes dry mucous membranes Mouth: dry mucous membranes Eyes PERRL and EOMs intact bilaterally General Eye ED: Yes pale conjunctiva; Negative for scleral icterus Neck no lymphadenopathy, supple and no JVD Chest Wall inspection of chest normal and palpation of chest normal Chest Narrative: There is tenderness left lower ribs anteriorly and left costal margin. Resp normal respiratory effort and No clear to auscultation bilaterally Auscultation: rhonchi left lower (With slight splinting.) Cardio regular rate, regular rhythm, S1 normal heart sound, S2 normal heart sound and no murmurs GI non-distended and no masses; Negative for non-tender or hepatosplenomegaly GI Narrative: Abdomen is firm. Suspect patient has significant ascites. Patient has a catheter to drain the ascitic fluid. Auscultation: hypoactive bowel sounds Palpation: Negative for soft Back/Spine no CVA tenderness Thoracic Spine / Upper Back: Negative for thoracic spinal tenderness Lumbar Spine / Lower Back: Negative for lumbar spinal tenderness Extremity normal to inspection Neuro oriented x3, CN's II-XII intact bilaterally and no sensory deficits noted Sensorium / Orientation: alert Motor Exam: strength 5/5 throughout Psych mental status grossly normal Skin no rashes or lesions noted, no wounds and No skin turgor normal Skin Narrative: There is erythema creases of the palm. General Skin Exam: elasticity normal and pallor; Negative for jaundice MDM MDM MDM Narrative Medical decision making narrative: With history of head trauma on Xarelto CT of the head was obtained especially since patient reported diplopia and headache yesterday. In light of the fact the patient has hemoptysis with history of DVT and significant tenderness left s brittany of the anterior chest and left upper quadrant CT of the abdomen pelvis was obtained to evaluate for splenic injury. CTA of the chest to assess for PE as well as metastatic lesions, pneumonia etc. Laboratory studies and reports from clinic clinic were accessed through patient's [employer] and [employer]. Lab Data Attestation: I reviewed the patient's lab results. Lab results narrative: CBC reveals mild anemia. Patient has chronic anemia and laboratory results from the [facility] were reviewed. BUN is slightly elevated 23 with a creatinine of 0.71. Creatinine at patient's baseline. BUN to creatinine ratio is elevated at 32.5-1 consistent with acute prerenal azotemia due to dehydratio n. Patient's albumin is low at 1.7. White count is normal. Labs: Laboratory Results - last 24 hr 11/10/24 09:35 WBC 8.2 RBC 3.55 L Hgb 9.8 L Hct 29.1 L MCV 82.0 MCH 27.6 MCHC 33.7 RDW Std Deviation 55.0 H RDW Coeff of Nicholas 18.1 H Plt Count 288 MPV 9.5 Immature Gran % (Auto) 0.600 Neut % (Auto) 80.7 H Lymph % (Auto) 11.1 L [place] % (Auto) 6.7 Eos % (Auto) 0.5 Baso % (Auto) 0.4 Absolute Neuts (auto) 6.6 Absolute Lymphs (auto) 0.91 Nucleated RBC % 0 Sodium 140 Potassium 3.4 L Chloride 108 H Carbon Dioxide 27.0 Anion Gap 5 BUN 23 H Creatinine 0.71 Est GFR (MDRD) Af Amer 109 Est GFR (MDRD) Non-Af 90 BUN/Creatinine Ratio 32.5 H Glucose 143 H Lactic Acid 2.2 H* Calcium 8.5 Total Bilirubin 0.30 AST 32 ALT 27 Alkaline Phosphatase 83 Total Protein 5.7 L Albumin 1.7 L Globulin 4.0 Albumin/Globulin Ratio 0.4 L Patient did not receive fluids initially. Will order 1 L of normal saline since she is hypotensive and has evidence of prerenal azotemia Radiography Diagnostic Testing: Clinical Impression(s) from Imaging Studies Chest CTA 11/10/24 09:38 IMPRESSION: 1. Limited evaluation of the pulmonary arteries due to suboptimal enhancement. 2. Numerous pulmonary masses consistent with metastases essentially new since previous examination. 3. Moderate bilateral pleural effusions larger on the left side. 4. No evidence of acute fracture. 5. Upper abdominal changes reported separately. Electronically Signed: Colton Marrufo MD at 11:55 EST , Abdomen/Pelvis CT 11/10/24 09:39 IMPRESSION: 1. Extensive pulmonary nodules consistent with metastases. 2. Bilateral pleural effusions larger on the right side. 3. Liver lesions consistent with metastases. 4. Multiple hypodense cystic lesions in the retroperitoneal, cortes hepatis and mid abdomen likely reflecting necrotic adenopathy. 5. Free fluid in the abdomen and pelvis. 6. No evidence of acute fracture.. Electronically Signed: Colton Marrufo MD at 11:46 EST , Brain CT 11/10/24 09:41 IMPRESSION: No acute intracranial process. Electronically Signed: Colton Marrufo MD at 11:29 EST , CT of the head without contrast reveals no [place] fracture. There is no fluid in the sinuses. There is no evidence of subdural hematoma, epidural hematoma, traumatic subarachnoid hemorrhage or intraparenchymal contusion. Awaiting formal read by radiologist. CTA of the chest reveals multiple metastatic lesions bilaterally. There is a significant effusion on the left. There is atelectasis left greater than right. I do not appreciate evidence of acute PE. CT of the abdomen pelvis with IV contrast reveals no hepatic injury. Difficult to see the spleen. The spleen does not appear normal. I do not appreciate a subcapsular hematoma. Kidneys appear normal. There is significant ascites noted. The CT of the head, CTA of the chest and CT of the abdomen pelvis IV contrast was independent reviewed interpreted by me at 1044. EKG Initial EKG: Attestation: I personally reviewed and interpreted this EKG as follows: Interpretation: Sinus Rhythm (Heart rate is 78. Short SD. SD interval is 100 ms. QS duration 74 ms. QT duration is normal at 394. [place] is normal.) Treatment and Re-Evaluation :: Blood pressure improved with 1 L of normal saline. Patient and son were informed of results at 1222. Plan is to discharge to home with doxycycline. She is to contact her primary care physician for thoracentesis. This was done in the past at outside facility patient at this time does not require emergent admission for thoracentesis. Discharge Plan Triage Chief Complaint: GI Bleed ED Provider: Cyril Carrero Dx/Rx/DC Orders Clinical Impression: Cough with hemoptysis, Abdominal ascites, HLD (hyperlipidemia), DVT (deep venous thrombosis), Atherosclerotic heart disease of [place] coronary artery without angina pectoris, Acute purulent bronchitis, Bilateral pleural effusion, Primary cancer of ovary with widespread metastatic disease, Acute hypotension, Acute dehydration, Current use of anticoagulant therapy, Blunt trauma to abdomen Instructions: ED Upper Resp Infec Abx Tx, ED Hemoptysis Prescriptions: New doxycycline monohydrate 100 mg capsule 100 mg PO BID Qty: 14 0RF No Action duloxetine [Cymbalta] 20 mg capsule,delayed release(DR/EC) 30 mg PO DAILY cholecalciferol (vitamin D3) 125 mcg (5,000 unit) capsule 125 mcg PO DAILY sennosides-docusate sodium [Stimulant Laxative Plus] 8.6-50 mg tablet 2 tab PO BID etoposide 50 mg capsule 50 mg PO DAILY olanzapine 5 mg tablet 5 mg PO QHS ondansetron 4 mg tablet,disintegrating 4 mg PO Q8H PRN PRN (Reason: nausea/vomiting) duloxetine 30 mg capsule,delayed release(DR/EC) 30 mg PO DAILY oxycodone 5 mg tablet 5 mg PO Q6H PRN (Reason: pain) 3 Days Qty: 12 0RF Primary Care Provider: Willi Sofia Referrals: Willi Sofia MD [Primary Care Provider] - 3-5 Days if not improving Print Language: Greek Disposition Disposition: Home, Self Care
[2024-11-10] MEDS: 0.9% Normal Saline (1000mL) 1,000 ML 1000 ML IV (10:43)
[2024-11-10 10:44] LABS: Lactic Acid 2.2 mmol/L (0.4-1.9)
[2024-11-10 10:45] VITALS: BMI 17.6
[2024-11-10 11:00] VITALS: BP 111/72; PULSE 74; RESP 14; O2SAT 98
[2024-11-10 12:00] VITALS: BP 103/69; PULSE 100; RESP 14; O2SAT 98
[2024-11-10] MEDS: Doxycycline 100 MG CAPSULE PO (12:36)
[2024-11-10 13:47] LABS: Reflex Lactate? Y
== END 2024-11-10 12:50 | disposition home or self-care (01) ==
PROVIDERS: Emergency Provider Emergency Medicine; PCP Family Medicine; Visit Provider Emergency Medicine
DX: R05.9 Cough, unspecified (principal); C78.01 Secondary malignant neoplasm of right lung; C78.02 Secondary malignant neoplasm of left lung; C56.9 Malignant neoplasm of unspecified ovary; J43.9 Emphysema, unspecified; I82.409 Acute embolism and thrombosis of unspecified deep veins of unspecified lower extremity; E78.5 Hyperlipidemia, unspecified; Z87.891 Personal history of nicotine dependence; D64.9 Anemia, unspecified; R18.8 Other ascites; R04.2 Hemoptysis; J20.9 Acute bronchitis, unspecified; E86.0 Dehydration; I95.9 Hypotension, unspecified; K92.2 Gastrointestinal hemorrhage, unspecified; Z79.01 Long term (current) use of anticoagulants; I25.10 Atherosclerotic heart disease of native coronary artery without angina pectoris; R07.89 Other chest pain; Z79.899 Other long term (current) drug therapy; H53.2 Diplopia; R51.9 Headache, unspecified; R79.89 Other specified abnormal findings of blood chemistry; J90 Pleural effusion, not elsewhere classified; S39.91XA Unspecified injury of abdomen, initial encounter; S09.90XA Unspecified injury of head, initial encounter; W19.XXXA Unspecified fall, initial encounter
CPT/HCPCS: 70450; 71275; 74177; 80053; 83605; 85025; 93005; 96361; 96374; 96375; 99283; Q9967; A4216; J2405